=== PATIENT | female | born 1965 | race Caucasian/White ===

== ENCOUNTER → 2017-11-24 | Outpatient (CLI) | payer MEDICAID ==
--- NOTE | 2017-11-24 10:26 | Diagnostic Imaging Report ---
INDICATION: Routine screening. COMPARISON: 10/17/2016. TECHNIQUE: Screening digital mammography was performed bilaterally with a Computer Aided Detection (CAD) system. FINDINGS: Both breasts are primarily involutional. No spiculated mass or malignant appearing microcalcifications are seen. The axillae are unremarkable. IMPRESSION: No mammographic features suspicious for malignancy are identified. ACR BI-RADS Category 1: Negative. Result letter will be mailed to the patient. Note: At least 10% of breast cancer is not imaged by mammography. Dictated by: Dictated on workstation # [id number]
--- NOTE | 2017-11-24 10:29 | Diagnostic Imaging Report ---
INDICATION: Neck pain with left arm numbness and tingling. TIME OF EXAMINATION: 9:22 AM. FINDINGS: The alignment is normal. There is significant degenerative disc disease at the C5-6 and C6-7 levels with moderate disc space narrowing and marginal osteophyte formation. The prevertebral tissues are normal. No fractures are seen. The odontoid is intact. IMPRESSION: Lower cervical spondylosis. No acute bony abnormality is detected. Dictated by: Dictated on workstation # [id number]
== END ==
LOC: RAD 08:32
PROVIDERS: ATTEND Family Medicine
DX: Z12.31 Encounter for screening mammogram for malignant neoplasm of breast (principal); M47.22 Other spondylosis with radiculopathy, cervical region
CPT/HCPCS: 72040; 77067

== ENCOUNTER 2017-11-27 13:39 | Outpatient (RCR) | payer MEDICAID ==
[2017-11-27 14:00] LABS: BASOPHILS # (AUTO) 0.1 10^3/uL (0.0-0.1); BASOPHILS % (AUTO) 2 % (0-10); EOSINOPHILS # (AUTO) 0.1 10^3/uL (0.0-0.3); EOSINOPHILS % (AUTO) 2 % (0-10); HEMATOCRIT 35 % (35-52); HEMOGLOBIN 11.1 G/DL (11.5-16.0); LYMPHOCYTES # (AUTO) 2.5 X 10^3 (1.0-4.0); LYMPHOCYTES % (AUTO) 43 % (12-44); MEAN CORPUSCULAR HEMOGLOBIN 25 PG (25-34); MEAN CORPUSCULAR HGB CONC 32 G/DL (32-36); MEAN CORPUSCULAR VOLUME 79 FL (80-99); MEAN PLATELET VOLUME 9.5 FL (7.4-10.4); MONOCYTES # (AUTO) 0.7 X 10^3 (0.0-1.0); MONOCYTES % (AUTO) 12 % (0-12); NEUTROPHILS # (AUTO) 2.4 X 10^3 (1.8-7.8); NEUTROPHILS % (AUTO) 41 % (42-75); PLATELET COUNT 633 10^3/uL (130-400); RED CELL DISTRIBUTION WIDTH 17.1 % (10.0-14.5); WHITE BLOOD COUNT 5.8 10^3/uL (4.3-11.0)
[2017-11-27 14:21] LABS: ALANINE AMINOTRANSFERASE 17 U/L (0-55); ALBUMIN 4.6 GM/DL (3.2-4.5); ALKALINE PHOSPHATASE 98 U/L (40-136); BILIRUBIN,TOTAL 0.2 MG/DL (0.1-1.0); BUN/CREATININE RATIO 28; CARBON DIOXIDE 23 MMOL/L (21-32); CHLORIDE 102 MMOL/L (98-107); CREATININE SERUM 0.95 MG/DL (0.60-1.30); GFR ESTIMATED > 60; GLUCOSE 128 MG/DL (70-105); POTASSIUM 4.3 MMOL/L (3.6-5.0); SODIUM 134 MMOL/L (135-145); TOTAL PROTEIN 8.8 GM/DL (6.4-8.2)
[2018-01-05] MEDS ORDERED: METF500T5 PO (10:47)
[2018-01-05] MEDS ORDERED: METO-333 PO (10:47)
[2018-01-05] MEDS ORDERED: DICL75TA2 PO (10:47)
[2018-01-05] MEDS ORDERED: ONDA8TAB9 PO (10:47)
[2018-01-05] MEDS ORDERED: RT-ALBUINH INH (10:47)
[2018-01-05] MEDS ORDERED: BACL10TA PO (10:47)
[2018-01-05] MEDS ORDERED: MONT10TA21 PO (10:47)
[2018-01-05] MEDS ORDERED: PRAZ1CAP2 PO (10:47)
[2018-01-05] MEDS ORDERED: LISI10TA2 PO (10:47)
[2018-01-05] MEDS ORDERED: MELO15TA39 PO (10:47)
[2018-01-05] MEDS ORDERED: RANI300T4 PO (10:47)
[2018-01-05] MEDS ORDERED: BUDE10.2 INH (10:47)
[2018-01-05] MEDS ORDERED: SERT100T8 PO (10:47)
[2018-01-05] MEDS ORDERED: LURA20TA PO (10:47)
[2018-01-05] MEDS ORDERED: SIMV20TA3 PO (10:47)
[2018-01-05] MEDS ORDERED: DEXL60CA PO (10:47)
[2018-01-05] MEDS ORDERED: OMG1KC PO (10:49)
[2018-01-06] MEDS ORDERED: CEFD300C3 PO (13:46)
== END 2018-02-25 | disposition home or self-care (01) ==
LOC: ONC 13:39
PROVIDERS: ATTEND Internal Medicine Hematology & Oncology
DX: D50.9 Iron deficiency anemia, unspecified (principal); D47.3 Essential (hemorrhagic) thrombocythemia; E11.9 Type 2 diabetes mellitus without complications; K44.9 Diaphragmatic hernia without obstruction or gangrene; Z79.899 Other long term (current) drug therapy
CPT/HCPCS: 36415; 80053; 82728; 83540; 85025; 99214

== ENCOUNTER 2018-01-04 11:29 | Inpatient (IN) | payer MEDICAID ==
[~2018-01-04] VITALS: Ht 144.8 cm; Wt 66.3 kg
[2018-01-04] VITALS (12 sets, daily range): BP systolic 93–149; BP diastolic 43–90
[2018-01-04] MEDS ORDERED: LACTATED RINGERS 1,000 ML IV ONE ×3 (11:49→13:35)
[2018-01-04 12:01] LABS: BASOPHILS % (AUTO) 0 % (0-10); EOSINOPHILS % (AUTO) 0 % (0-10); HEMATOCRIT 30 % (35-52); LYMPHOCYTES # (AUTO) 1.3 X 10^3 (1.0-4.0); LYMPHOCYTES % (AUTO) 8 % (12-44); MEAN CORPUSCULAR HEMOGLOBIN 25 PG (25-34); MEAN CORPUSCULAR HGB CONC 33 G/DL (32-36); MEAN CORPUSCULAR VOLUME 74 FL (80-99); MEAN PLATELET VOLUME 9.2 FL (7.4-10.4); MONOCYTES # (AUTO) 2.8 X 10^3 (0.0-1.0); MONOCYTES % (AUTO) 16 % (0-12); NEUTROPHILS # (AUTO) 13.4 X 10^3 (1.8-7.8); NEUTROPHILS % (AUTO) 76 % (42-75); PLATELET COUNT 526 10^3/uL (130-400); RED BLOOD COUNT 4.06 10^6/uL (4.35-5.85); RED CELL DISTRIBUTION WIDTH 17.5 % (10.0-14.5); WHITE BLOOD COUNT 17.6 10^3/uL (4.3-11.0)
[2018-01-04 12:20] LABS: ALBUMIN 4.5 GM/DL (3.2-4.5); BILIRUBIN,TOTAL 0.5 MG/DL (0.1-1.0); CALCIUM 9.8 MG/DL (8.5-10.1); CREATININE SERUM 4.85 MG/DL (0.60-1.30); POTASSIUM 4.6 MMOL/L (3.6-5.0); TOTAL PROTEIN 8.4 GM/DL (6.4-8.2)
[2018-01-04 12:23] LABS: BAND NEUTROPHILS 2 %; LYMPHOCYTES % (MANUAL) 8 %; MONOCYTES % (MANUAL) 13 %; NEUTROPHILS % (MANUAL) 77 %
[2018-01-04 12:24] LABS: MICROCYTOSIS SLIGHT
[2018-01-04 12:25] LABS: TOXIC GRANULATION/VACUOLAZATIO 2+
--- NOTE | 2018-01-04 12:35 | Diagnostic Imaging Report ---
Clinical indication: Patient with weakness. Exam: Portable chest x-ray upright view. Comparison: Portable chest x-ray dated 06/29/2015. Findings: There is interval development of left midlung field left lung base mild atelectasis versus infiltrate. Remainder of the lungs are clear. There is blunting of left costophrenic angle and small left pleural effusion cannot be completely excluded. Pulmonary vasculature is within normal limits. There is mild cardiomegaly. Surgical clips are seen overlying the right upper quadrant which could be related to cholecystectomy changes. Bones show no significant abnormality. Impression: 1: Interval development of mild left lung base atelectasis versus infiltrate and possible left pleural effusion. 2: Mild cardiomegaly with no significant pulmonary vascular congestion. Dictated by: Dictated on workstation # [id number]
--- NOTE | 2018-01-04 12:42 | ED General ---
General Chief Complaint: Altered Mental Status Stated Complaint: WEAKNESS Nursing Triage Note: brought by ems. Patient is obtunded and very sedated. Unable to answer quetions. did say that she was walking bad this week. Boyfriend states that she has been walking drunk for several days and has been vomiting. Called dr for nausea meds. Fell out of chair but has not hit head. States she has even fallen asleep in tub. Limited history obtained Nursing Sepsis Screen: No Definite Risk Source of Information: Other Exam Limitations: Other (alertness) History of Present Illness Date Seen by Provider: January 04, 2018 Time Seen by Provider: 12:38 Initial Comments The patient is a 52-year-old white female brought here by EMS. Her male executive manager told the nurses that she has been performing very poorly for several days and indeed walking about like a zombie. She is brighter after IV fluids but still quite noncommunicative Timing/Duration: 3-4 Days Allergies and Home Medications Allergies Coded Allergies: No Known Drug Allergies (Unverified , 01/04/18) Patient Home Medication List Home Medication List Reviewed: Yes Review of Systems Constitutional: see HPI Past Sllfrfp-Rokzzw-Tciyfy Hx Patient Social History Alcohol Use: Denies Use Recreational Drug Use: No (unknown) Smoking Status: Unknown if Ever Smoked Recent Foreign Travel: No Contact w/Someone Who Travel: No Recent Infectious Disease Expo: No Recent Hopitalizations: No Physical Abuse: No Sexual Abuse: No Mistreated: No Fear: No Immunizations Up To Date Tetanus Booster (TDap): Unknown Seasonal Allergies Seasonal Allergies: No Past Medical History Surgeries: Yes Hysterectomy, Orthopedic Respiratory: Yes COPD Cardiac: No Neurological: No Genitourinary: No Gastrointestinal: Yes Hiatal Hernia Musculoskeletal: Yes Scoliosis, Chronic Back Pain Endocrine: Yes Diabetes, Non-Insulin dep Nursing Suicide Risk Score: 0 Integumentary: No Physical Exam Vital Signs Vital Signs - First Documented 01/04/18 01/04/18 11:35 12:28 Temp 98.4 Pulse 75 Resp 18 B/P (MAP) 94/48 (63) Pulse Ox 95 O2 Delivery OxyMask O2 Flow Rate 9.00 Capillary Refill : Greater Than 3 Seconds General Appearance: Other (hypotensive and very somnolent) Eyes: Bilateral Eye Normal Inspection HEENT: Normal ENT Inspection Neck: Full Range of Motion, Normal Inspection, Non Tender, Supple, Carotid Bruit Respiratory: Decreased Breath Sounds (shallow) Cardiovascular: Regular Rate, Rhythm, No Edema, No Gallop Gastrointestinal: Normal Bowel Sounds, No Organomegaly, No Pulsatile Mass Extremity: Normal Capillary Refill, Normal Inspection, Normal Range of Motion Neurologic/Psychiatric: Other (arouses to voice but does not attempt to speak) Skin: Normal Color, Warm/Dry Lymphatic: No Adenopathy Focused Exam Lactate Level 01/04/18 11:46: Lactic Acid Level 1.13 Lactic Acid Level Laboratory Tests Test 01/04/18 11:46 Lactic Acid Level 1.13 MMOL/L (0.50-2.00) Progress/Results/Core Measures Suspected Sepsis Recent Fever Within 48 Hours: No Infection Criteria Present: Suspected New Infection New/Unexplained Altered Menta: Yes Sepsis Screen: No Definite Risk SIRS Temperature:98.4 Pulse: 75 Respiratory Rate: 18 Laboratory Tests 01/04/18 11:46: White Blood Count 17.6H Blood Pressure 94 /48 Mean: 63 01/04/18 11:46: Lactic Acid Level 1.13 Laboratory Tests 01/04/18 11:46: Creatinine 4.85H, Platelet Count 526H, Total Bilirubin 0.5 Results/Orders Lab Results Laboratory Tests Test 01/04/18 11:46 01/04/18 12:31 Range/Units White Blood Count 17.6 H 4.3-11.0 10^3/uL Red Blood Count 4.06 L 4.35-5.85 10^6/uL Hemoglobin 10.0 L 11.5-16.0 G/DL Hematocrit 30 L 35-52 % Mean Corpuscular Volume 74 L 80-99 FL Mean Corpuscular Hemoglobin 25 25-34 PG Mean Corpuscular Hemoglobin Concent 33 32-36 G/DL Red Cell Distribution Width 17.5 H 10.0-14.5 % Platelet Count 526 H 130-400 10^3/uL Mean Platelet Volume 9.2 7.4-10.4 FL Neutrophils (%) (Auto) 76 H 42-75 % Lymphocytes (%) (Auto) 8 L 12-44 % Monocytes (%) (Auto) 16 H 0-12 % Eosinophils (%) (Auto) 0 0-10 % Basophils (%) (Auto) 0 0-10 % Neutrophils # (Auto) 13.4 H 1.8-7.8 X 10^3 Lymphocytes # (Auto) 1.3 1.0-4.0 X 10^3 Monocytes # (Auto) 2.8 H 0.0-1.0 X 10^3 Eosinophils # (Auto) 0.0 0.0-0.3 10^3/uL Basophils # (Auto) 0.0 0.0-0.1 10^3/uL Neutrophils % (Manual) 77 % Lymphocytes % (Manual) 8 % Monocytes % (Manual) 13 % Band Neutrophils 2 % Toxic Granulation 2+ Microcytosis SLIGHT Sodium Level 135 135-145 MMOL/L Potassium Level 4.6 3.6-5.0 MMOL/L Chloride Level 103 98-107 MMOL/L Carbon Dioxide Level 15 L 21-32 MMOL/L Anion Gap 17 H 5-14 MMOL/L Blood Urea Nitrogen 50 H 7-18 MG/DL Creatinine 4.85 H 0.60-1.30 MG/DL Estimat Glomerular Filtration Rate 9 BUN/Creatinine Ratio 10 Glucose Level 111 H 70-105 MG/DL Lactic Acid Level 1.13 0.50-2.00 MMOL/L Calcium Level 9.8 8.5-10.1 MG/DL Total Bilirubin 0.5 0.1-1.0 MG/DL Aspartate Amino Transf (AST/SGOT) 10 5-34 U/L Alanine Aminotransferase (ALT/SGPT) 10 0-55 U/L Alkaline Phosphatase 81 40-136 U/L Total Protein 8.4 H 6.4-8.2 GM/DL Albumin 4.5 3.2-4.5 GM/DL Urine Color YELLOW Urine Clarity CLEAR Urine pH 5 5-9 Urine Specific [place] 1.025 H 1.016-1.022 Urine Protein 2+ H NEGATIVE Urine Glucose (UA) NEGATIVE NEGATIVE Urine Ketones NEGATIVE NEGATIVE Urine Nitrite NEGATIVE NEGATIVE Urine Bilirubin 1+ H NEGATIVE Urine Urobilinogen NORMAL NORMAL MG/DL Urine Leukocyte Esterase 1+ H NEGATIVE Urine RBC (Auto) NEGATIVE NEGATIVE Urine RBC NONE /HPF Urine WBC RARE /HPF Urine Crystals NONE /LPF Urine Amorphous Sediment MOD TRAN URATES H /LPF Urine Bacteria FEW H /HPF Urine Casts NONE /LPF Urine Mucus LARGE H /LPF Urine Culture Indicated NO Urine Opiates Screen POSITIVE H NEGATIVE Urine Oxycodone Screen NEGATIVE NEGATIVE Urine Methadone Screen NEGATIVE NEGATIVE Urine Propoxyphene Screen NEGATIVE NEGATIVE Urine Barbiturates Screen NEGATIVE NEGATIVE Ur Tricyclic Antidepressants Screen NEGATIVE NEGATIVE Urine Phencyclidine Screen NEGATIVE NEGATIVE Urine Amphetamines Screen NEGATIVE NEGATIVE Urine Methamphetamines Screen NEGATIVE NEGATIVE Urine Benzodiazepines Screen NEGATIVE NEGATIVE Urine Cocaine Screen NEGATIVE NEGATIVE Urine Cannabinoids Screen POSITIVE H NEGATIVE My Orders Orders - NARCISO GONZALES MD Lactated Ringers (Lr 1000 Ml Iv Solution (01/04/18 11:49) Cbc With Automated Diff (01/04/18 11:53) Comprehensive Metabolic Panel (01/04/18 11:53) Drug Screen Stat (Urine) (01/04/18 11:53) Ua Culture If Indicated (01/04/18 11:53) Chest 1 View, Ap/Pa Only (01/04/18 11:53) Manual Differential (01/04/18 11:46) Blood Culture (01/04/18 12:26) Lactic Acid Analyzer (01/04/18 12:26) Lactated Ringers (Lr 1000 Ml Iv Solution (01/04/18 12:25) Albuterol/Ipra Inhalation Soln (Duoneb I (01/04/18 12:45) Svn Small Volume Nebulizer (01/04/18 12:43) Medications Given in ED Current Medications Medications Dose Ordered Sig/Katrina Route Start Time Stop Time Status Last Admin Dose Admin Albuterol/ Ipratropium 3 ml ONCE ONCE INH 01/04/18 12:45 01/04/18 12:47 DC 01/04/18 12:47 3 ML Lactated Ringer's 1,000 ml @ ud STK-MED ONCE IV 01/04/18 11:49 01/04/18 11:54 DC 01/04/18 11:55 1,000 MLS/HR Lactated Ringer's 1,000 ml @ ud STK-MED ONCE IV 01/04/18 12:25 01/04/18 12:31 DC 01/04/18 12:35 1,000 MLS/HR Vital Signs/I&O 01/04/18 01/04/18 01/04/18 11:35 12:28 13:22 Temp 98.4 98.4 Pulse 75 76 Resp 18 18 B/P (MAP) 94/48 (63) 95/53 Pulse Ox 95 96 100 O2 Delivery OxyMask OxyMask O2 Flow Rate 9.00 10.00 Capillary Refill : Greater Than 3 Seconds Blood Pressure Mean: 63 Departure Communication (Admissions) Laboratory has returned. The white blood count is 17,600. Hemoglobin is 10. Creatinine is 4.85 BUN 50. Urine is clear. Chest x-ray suggests a left-sided pneumonia. I discussed these findings with Dr. Tabares at 1320 and the patient will be admitted to our last remaining ICU bed Impression Primary Impression: severe sepsis Additional Impressions: pneumonia acute renal failure Disposition: ADMITTED INPATIENT Condition: Improved Admissions Decision to Admit Reason: Admit from ER (General) Decision to Admit/Date: January 04, 2018 Time/Decision to Admit Time: 13:27 Departure-Patient Inst. Referrals: RENY COLLAZO MD (PCP/Family) Primary Care Physician NARCISO GONZALES MD January 04, 2018 12:42
[2018-01-04] MEDS ORDERED: RT-ALBUTEROL/IPRATROPIUM 3 ML (DUONEB) VIAL INH ONE (12:45)
[2018-01-04 13:04] LABS: BILIRUBIN,URINE 1+ (NEGATIVE); CLARITY,URINE CLEAR; COLOR,URINE YELLOW; GLUCOSE, URINE (UA) NEGATIVE (NEGATIVE); KETONES,URINE NEGATIVE (NEGATIVE); LEUKOCYTE ESTERASE ,URINE 1+ (NEGATIVE); NITRITE,URINE NEGATIVE (NEGATIVE); PH,URINE 5 (5-9); PROTEIN,URINE 2+ (NEGATIVE); UROBILINOGEN,URINE NORMAL (NORMAL)
[2018-01-04 13:11] LABS: AMPHETAMINE SCREEN, URINE NEGATIVE (NEGATIVE); BARBITURATE SCREEN URINE NEGATIVE (NEGATIVE); BENZODIAZEPINES SCREEN URINE NEGATIVE (NEGATIVE); CANNABINOID SCREEN, URINE POSITIVE (NEGATIVE); COCAINE SCREEN URINE NEGATIVE (NEGATIVE); METHADONE STAT NEGATIVE (NEGATIVE); METHAMPHETAMINE SCREEN URINE S NEGATIVE (NEGATIVE); OPIATE SCREEN URINE POSITIVE (NEGATIVE); OXYCODONE STAT NEGATIVE (NEGATIVE); PROPOXYPHENE STAT NEGATIVE (NEGATIVE); TRICYCLIC ANTIDEPRESSANTS SCRE NEGATIVE (NEGATIVE)
[2018-01-04 13:15] LABS: BACTERIA,URINE FEW /HPF; WBC,URINE RARE /HPF
[2018-01-04 13:16] LABS: AMORPHOUS SEDIMENT,UR MOD AMOR URATES /LPF
[2018-01-04] MEDS ORDERED: PIPERACILLIN SODIUM/TAZOBACTAM 4.5 GM in D5W 100 ML IVPB 100 ML IV ONE (13:30)
[2018-01-04] MEDS ORDERED: MILK OF MAGNESIA 400 MG/5 ML 30 ML UDC PO PRN (13:45)
[2018-01-04] MEDS ORDERED: PIPERACILLIN SODIUM/TAZOBACTAM 4.5 GM in NS (IVPB) 100 ML IV SCH (13:45)
[2018-01-04] MEDS ORDERED: ONDANSETRON 4 MG/2 ML (SDV) Z0FRAN IV PRN (13:45)
[2018-01-04] MEDS ORDERED: ANTACID SUSP 30 ML UDC (MYLANTA) PO PRN (13:45)
[2018-01-04] MEDS ORDERED: MELATONIN 3 MG TABLET PO PRN (13:45)
--- NOTE | 2018-01-04 13:56 | History & Physical-Hospitalist ---
History of Present Illness HPI/Chief Complaint Pt is a 52yoCF with a PMH of HTN and DM who presented to the ER via EMS for altered mental status. She arouses to physicial stimuli and answer some questions appropriately but really is not able to give a detailed history. She was only able to tell me she was dizzy and lightheaded since yesterday. Per the report obtained by her SO who called EMS she has been confused for days and walking around "like a zombie" and falling. She was barely arousable on presentation and mentation has improved slightly but is not back to her baseline. She was not able to tell me any other history and she has no family at bedside. She was found to have UA consistent with UTI and CXR with possible pneumonia. She has a WBC of 17k and was in acute renal failure with a defense travel administrator of 4.85. She was admitted for severe sepsis to the ICU. Source: patient Exam Limitations: clinical condition Date Seen 01/04/18 Time Seen by Provider: 13:25 Attending Physician Lily Tabares MD PCP Frieda Rodriguez MD Referring Physician Date of Admission Home Medications & Allergies Home Medications Reviewed patient Home Medication Reconciliation performed by pharmacy medication reconciliations mold repair technician and/or nursing. Patients Allergies have been reviewed. Allergies Allergies Coded Allergies No Known Drug Allergies (Unverified01/04/18) Past Bbzauft-Xdjxgz-Splapt Hx Past Med/Social Hx: Reviewed Nursing Past Med/Soc Hx Patient Social History Alcohol Use: Denies Use Recreational Drug Use: No (unknown) Smoking Status: Unknown if Ever Smoked Recent Foreign Travel: No Contact w/other who traveled: No Recent Hopitalizations: No Recent Infectious Disease Expo: No Immunizations Up To Date Tetanus Booster (TDap): Unknown Seasonal Allergies Seasonal Allergies: No Past Medical History Surgeries: Hysterectomy, Orthopedic Cardiac: Hypertension Gastrointestinal: Hiatal Hernia Musculoskeletal: Scoliosis, Chronic Back Pain Endocrine: Diabetes, Non-Insulin dep Family History Reviewed Nursing Family Hx Unable to obtain due to AMS Review of Systems ROS-Unable to Obtain: AMS Constitutional: see HPI Physical Exam Physical Exam Vital Signs Capillary Refill : Less Than 3 Seconds General Appearance: Chronically ill, Mild Distress HEENT: No Scleral Icterus (L), No Scleral Icterus (R); Other (dry mucus membranes) Neck: Normal Inspection, Non Tender, Supple; No JVD, No Thyromegaly Respiratory: Lungs Clear, No Accessory Muscle Use, No Respiratory Distress Cardiovascular: Regular Rate, Rhythm, No Murmur Gastrointestinal: Normal Bowel Sounds, Non Tender, Soft Neurologic/Psychiatric: No Aphasia, No Facial Droop; Other (arousable and answered a few questions appropriately then quickly fell back asleep and was lethargic) Skin: No Normal Color, No Warm/Dry Results Results/Procedures Labs Patient resulted labs reviewed. Imaging: Reviewed Imaging Films, Reviewed Imaging Report Imaging Date of Exam:01/04/18 CHEST 1 VIEW, AP/PA ONLY Clinical indication: Patient with weakness. Exam: Portable chest x-ray upright view. Comparison: Portable chest x-ray dated 06/29/2015. Findings: There is interval development of left midlung field left lung base mild atelectasis versus infiltrate. Remainder of the lungs are clear. There is blunting of left costophrenic angle and small left pleural effusion cannot be completely excluded. Pulmonary vasculature is within normal limits. There is mild cardiomegaly. Surgical clips are seen overlying the right upper quadrant which could be related to cholecystectomy changes. Bones show no significant abnormality. Impression: 1: Interval development of mild left lung base atelectasis versus infiltrate and possible left pleural effusion. 2: Mild cardiomegaly with no significant pulmonary vascular congestion. 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 today Likely due to dehydration but also filled Mobic on 12/[address] mckenna for adequate I/Os Received 3L of fluid in the ER Continue IVF resuscitation trend (3) COPD (chronic obstructive pulmonary disease) Status: Chronic Assessment & Plan: Continue home inhalers MAT Protocol Monitor respiratory status closely given IVF Titrate sats to keep >90 Qualifiers: COPD type: unspecified COPD Qualified Codes: J44.9 - Chronic obstructive pulmonary disease, unspecified (4) Essential (primary) hypertension Assessment & Plan: Normally hypertensive but currently lower limits of normal Monitor Hold home meds 30cc/kg bolus given (5) Non-insulin dependent type 2 diabetes mellitus Assessment & Plan: Reports DM SSI A Hold home metformin (6) Microcytic anemia Assessment & Plan: Appears to be undergoing work up for this as an outpatient given recent labs and iron studies Anticipate drop tomorrow with fluids resuscitation (7) Prophylactic measure Assessment & Plan: NS at 150ml/hr SCDs for now NPO while altered LILY TABARES MD January 04, 2018 13:56
[2018-01-04] MEDS ORDERED: VANCOMYCIN INJECTION 0.1 MG in NS (IVPB) 250 ML IV SCH (14:00)
[2018-01-04] MEDS ORDERED: VANCOMYCIN 1 GM/NS 250 ML IVPB IV NR ×2 (14:38)
[2018-01-04] MEDS: NS IV 1000 ML 1,000 ML IV SCH (15:37)
[2018-01-04] MEDS: inSUlin ASPART (NovoLOG) 1 UNIT/0.01 ML (CHARGE PER UNIT) SC SCH ×2 (16:03→22:33)
[2018-01-04] MEDS ORDERED: HALOPERIDOL 2 MG (HALDOL) TABLET PO ONE (16:45)
[2018-01-04] MEDS: ACETAMINOPHEN 325 MG TABLET/CAPLET (TYLENOL) PO PRN (17:09)
[2018-01-04] MEDS: RT-ALBUTEROL/IPRATROPIUM 3 ML (DUONEB) VIAL INH SCH (20:21)
[2018-01-04] MEDS: PIPERACILLIN SODIUM/TAZOBACTAM 4.5 GM in NS (IVPB) 100 ML IV SCH (22:34)
[2018-01-05] VITALS (17 sets, daily range): BP systolic 93–163; BP diastolic 52–93
[2018-01-05] MEDS: NS IV 1000 ML 1,000 ML IV SCH ×5 (01:59→21:00)
[2018-01-05] MEDS: RT-ALBUTEROL/IPRATROPIUM 3 ML (DUONEB) VIAL INH SCH ×4 (02:08→18:56)
[2018-01-05 03:35] LABS: BASOPHILS % (AUTO) 0 % (0-10); EOSINOPHILS % (AUTO) 0 % (0-10); HEMATOCRIT 27 % (35-52); HEMOGLOBIN 8.7 G/DL (11.5-16.0); LYMPHOCYTES % (AUTO) 6 % (12-44); MEAN CORPUSCULAR HEMOGLOBIN 24 PG (25-34); MEAN CORPUSCULAR HGB CONC 32 G/DL (32-36); MEAN CORPUSCULAR VOLUME 76 FL (80-99); MEAN PLATELET VOLUME 9.1 FL (7.4-10.4); MONOCYTES # (AUTO) 1.5 X 10^3 (0.0-1.0); MONOCYTES % (AUTO) 10 % (0-12); NEUTROPHILS % (AUTO) 83 % (42-75); PLATELET COUNT 444 10^3/uL (130-400); RED BLOOD COUNT 3.58 10^6/uL (4.35-5.85); RED CELL DISTRIBUTION WIDTH 17.2 % (10.0-14.5); WHITE BLOOD COUNT 15.6 10^3/uL (4.3-11.0)
[2018-01-05 03:55] LABS: ALBUMIN 3.5 GM/DL (3.2-4.5); BILIRUBIN,TOTAL 0.4 MG/DL (0.1-1.0); CALCIUM 8.7 MG/DL (8.5-10.1); CREATININE SERUM 1.49 MG/DL (0.60-1.30); POTASSIUM 3.9 MMOL/L (3.6-5.0); TOTAL PROTEIN 6.7 GM/DL (6.4-8.2)
[2018-01-05 04:02] LABS: INR 1.1 (0.8-1.4); PROTHROMBIN TIME PATIENT 14.2 SEC (12.2-14.7)
[2018-01-05] MEDS: ACETAMINOPHEN 325 MG TABLET/CAPLET (TYLENOL) PO PRN ×3 (04:21→20:44)
[2018-01-05 04:39] LABS: MAGNESIUM 1.8 MG/DL (1.8-2.4)
[2018-01-05] MEDS: inSUlin ASPART (NovoLOG) 1 UNIT/0.01 ML (CHARGE PER UNIT) SC SCH ×4 (05:04→20:43)
--- NOTE | 2018-01-05 06:46 | Pulmonary Consultation ---
History of Present Illness History of Present Illness Date of Consultation 01/05/18 06:38 Time Seen by Provider: 06:38 Date of Admission History of Present Illness 52yo with hx of COPD, presented secondary to worsening MS changes, confusion, lightheaded, falling. Pt was found to have sepsis in ED. UDS was positive for Marijuanna and narcotics. Pt states marijuana is secondary to second hand smoke. PT was hypotensive on admission however has responded to IVF. I am consulted for ICU/pulmonary management. Allergies and Home Medications Allergies Coded Allergies: No Known Drug Allergies (Unverified , 01/04/18) Past Wtewtzu-Hgvnow-Kkktmj Hx Past Med/Social Hx: Reviewed Nursing Past Med/Soc Hx Patient Social History Alcohol Use: Denies Use Recreational Drug Use: No (PATIENT WAS POSITIVE FOR MARIJUANA UPON ADMISSION) Smoking Status: Former Smoker Recent Foreign Travel: No Contact w/Someone Who Travel: No Recent Infectious Disease Expo: No Recent Hopitalizations: No Physical Abuse: No Sexual Abuse: No Mistreated: No Fear: No Immunizations Up To Date Tetanus Booster (TDap): Unknown Seasonal Allergies Seasonal Allergies: No Past Medical History Surgeries: Yes Hysterectomy, Orthopedic Respiratory: Yes COPD Cardiac: Yes Hypertension Neurological: No Genitourinary: No Gastrointestinal: Yes Hiatal Hernia Musculoskeletal: Yes Scoliosis, Chronic Back Pain Endocrine: Yes Diabetes, Non-Insulin dep HEENT: No Cancer: No Nursing Suicide Risk Score: 0 Integumentary: No Family Medical History Reviewed Nursing Family Hx Unable to obtain due to AMS Review of Systems Time Seen by Provider: 06:42 Constitutional: Fever, Sweats, Weakness, Malaise Eyes: No: Pain, Vision change, Conjunctivae inflammation, Eyelid inflammation, Other, Redness ENT: No: Ear pain, Ear discharge, Nose pain, Nose discharge, Nose congestion, Mouth pain, Mouth swelling, Throat pain, Throat swelling, Other Respiratory: Cough, Dry, Shortness of breath Cardiovascular: Paroxysmal Noc. Dyspnea Neurological: Weakness Exam Exam Vital Signs Date Time Temp Pulse Resp B/P (MAP) Pulse Ox O2 Delivery O2 Flow Rate FiO2 01/05/18 06:00 91 21 113/64 (80) 98 Room Air 01/05/18 05:36 100.8 01/05/18 05:33 100.8 01/05/18 05:00 92 14 135/70 (91) 97 Room Air 01/05/18 04:21 101.7 01/05/18 04:00 101.7 01/05/18 04:00 99 Room Air 01/05/18 04:00 122 20 142/93 (109) 98 Room Air 01/05/18 03:00 97 24 155/82 (106) Room Air 01/05/18 02:08 98 Room Air 01/05/18 02:00 99 27 137/69 (91) 98 Room Air 01/05/18 01:00 76 19 125/70 (88) 98 Room Air 01/05/18 01:00 80 01/05/18 00:00 99 Room Air 01/05/18 00:00 73 21 116/60 (78) 100 Room Air 01/04/18 23:56 98.9 01/04/18 23:00 76 12 101/62 (75) 98 Room Air 01/04/18 22:00 81 18 93/48 (63) 95 Room Air 01/04/18 21:00 79 14 93/43 (60) 96 Room Air 01/04/18 20:21 97 Room Air 01/04/18 20:00 76 18 108/54 (72) 96 Room Air 01/04/18 20:00 99 Room Air 01/04/18 20:00 99.5 01/04/18 19:00 94 01/04/18 19:00 90 19 126/69 (88) 97 Room Air 18 17:39 Room Air 18 17:25 99.8 Room Air 18 17:09 101.0 01/04/18 17:00 90 11 148/90 (109) 95 Room Air 18 17:00 101.0 Room Air 18 16:43 98 Room Air 18 16:39 91 98 21 18 16:30 88 11 149/77 (101) 96 Room Air 18 16:00 99.0 Room Air 18 16:00 80 17 136/72 (93) 99 Room Air 20/18 15:45 80 18 138/73 (94) 98 Room Air 2018 15:30 75 13 114/55 (74) 97 Room Air 18 15:15 75 15 122/58 (79) 97 Room Air 5/20/18 15:00 98.5 76 15 142/69 (93) 95 Room Air 01/04/18 14:29 78 18 134/67 99 Nasal Cannula 2.00 01/04/18 13:22 98.4 76 18 95/53 100 OxyMask 10.00 01/04/18 12:28 96 OxyMask 9.00 01/04/18 11:35 98.4 75 18 94/48 (63) 95 I & O 01/05/18 07:00 Intake Total 5560 ml Output Total 2440 ml Balance 3120 ml General Appearance: No Apparent Distress, Anxious HEENT: Normal ENT Inspection Neck: Full Range of Motion, Normal Inspection, Non Tender, Supple, Carotid Bruit Respiratory: Decreased Breath Sounds (shallow) Cardiovascular: Regular Rate, Rhythm, No Edema, No Gallop Capillary Refill: Less Than 3 Seconds Extremity: Normal Capillary Refill, Normal Inspection, Normal Range of Motion Neurologic/Psychiatric: Other (arouses to voice but does not attempt to speak) Skin: Normal Color, Warm/Dry Lymphatic: No Adenopathy Results Lab Laboratory Tests 01/04/18 11:46 01/05/18 03:10 Assessment/Plan Assessment/Plan Severe Sepsis secondary to PNA -IVF -Sepsis protocol -Continue vanco, and Zosyn -Lutz cultures pending COPD -SVNS, oxygen, MAT protocol Confusion secondary to sepsis and opiate/Marijuana IDDM II 255 ALANIS REARDON DO January 05, 2018 06:46
[2018-01-05] MEDS: PIPERACILLIN SODIUM/TAZOBACTAM 4.5 GM in NS (IVPB) 100 ML IV SCH (09:04)
[2018-01-05] MEDS ORDERED: BUDE10.2 INH (10:47)
[2018-01-05] MEDS ORDERED: RT-ALBUINH INH (10:47)
[2018-01-05] MEDS ORDERED: DICL75TA2 PO (10:47)
[2018-01-05] MEDS ORDERED: LURA20TA PO (10:47)
[2018-01-05] MEDS ORDERED: MONT10TA21 PO (10:47)
[2018-01-05] MEDS ORDERED: SIMV20TA3 PO (10:47)
[2018-01-05] MEDS ORDERED: RANI300T4 PO (10:47)
[2018-01-05] MEDS ORDERED: BACL10TA PO (10:47)
[2018-01-05] MEDS ORDERED: SERT100T8 PO (10:47)
[2018-01-05] MEDS ORDERED: MELO15TA39 PO (10:47)
[2018-01-05] MEDS ORDERED: PRAZ1CAP2 PO (10:47)
[2018-01-05] MEDS ORDERED: METO-333 PO (10:47)
[2018-01-05] MEDS ORDERED: DEXL60CA PO (10:47)
[2018-01-05] MEDS ORDERED: ONDA8TAB9 PO (10:47)
[2018-01-05] MEDS ORDERED: METF500T5 PO (10:47)
[2018-01-05] MEDS ORDERED: LISI10TA2 PO (10:47)
[2018-01-05] MEDS ORDERED: OMG1KC PO (10:49)
[2018-01-05] MEDS ORDERED: VANCOMYCIN 1 GM/NS 250 ML IVPB IV SCH ×2 (16:00)
--- OUTSIDE RECORDS SUMMARY | 2018-01-05 16:13 | XMS REPORT | Referral Summary ---
Author Author [facility] Organization [facility] Address Unknown Phone Unavailable Care Team Providers Care Cashier Associate Name Role Phone [facility] PCP Unavailable Encounter [facility] [id number] Date(s): 02/23/15 - 02/23/15 [facility] [address] [place] [address] Discharge Disposition: 01-Home or Self Care Attending Physician: Robert Walker MD Admitting Physician: Robert Walker MD Vital Signs No data available for this section Problem List Condition Effective Dates Status Health Status Informant Asthma(Confirmed) Active patient Diabetes(Confirmed) Active patient Hypercholesteremia(C Active patient onfirmed) HTN Active patient (hypertension)(Confi rmed) Allergies, Adverse Reactions, Alerts No Known Medication Allergies Medications aspirin 0 Refill(s) Start Date: 06/29/15 Status: Ordered Carafate 1 g oral tablet 1 g 1 tabs, Oral, QIDACHS, # 30 tabs, 0 Refill(s) Start Date: 06/29/15 Status: Ordered lisinopril Oral, Daily, 0 Refill(s) Start Date: 06/29/15 Status: Ordered metFORMIN Oral, 0 Refill(s) Start Date: 06/29/15 Status: Ordered PriLOSEC Oral, Daily, 0 Refill(s) Start Date: 06/29/15 Status: Ordered PriLOSEC 20 mg oral delayed release capsule 20 mg 1 caps, Oral, Daily, # 30 caps, 0 Refill(s) Start Date: 06/29/15 Status: Ordered promethazine 25 mg oral tablet 25 mg 1 tabs, Oral, q6hr, as needed for motion sickness, # 20 tabs, 0 Refill(s) Start Date: 11/12/15 Status: Ordered Zocor Oral, Bedtime (once a day), 0 Refill(s) Start Date: 06/29/15 Status: Ordered ZyrTEC Daily, 0 Refill(s) Start Date: 06/29/15 Status: Ordered Results No data available for this section Immunizations No data available for this section Procedures No data available for this section Social History Social History Type Response Smoking Status Former smoker; Type: Cigarettes1 1pt quit 10 years ago in 2004 Assessment and Plan No data available for this section
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
--- OUTSIDE RECORDS SUMMARY | 2018-01-05 16:14 | XMS REPORT | Continuity Of Care Document ---
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 Name Role Phone UNASSIGNED, ED PHYSICIAN Unavailable Unavailable LORNA HAYES, DIXON Sorto AT Results Lab Results Visit/Account #[id number] (February 20, 2016 10:39pm - February 21, 2016 1:40am) Test Result Date/Time POCGL POCGL(70-110 MG/DL) 177 MG/DL February 20, 2016 10:57pm CBC WITH MORPHOLOGY WHITE BLOOD COUNT(4.0-11.0 10E3/UL) 7.2 10E3/UL February 20, 2016 10:45pm RED BLOOD COUNT(4.00-5.20 10E6/UL) 4.44 10E6/UL February 20, 2016 10:45pm HEMOGLOBIN(12.0-16.0 G/DL) 11.1 G/DL February 20, 2016 10:45pm HEMATOCRIT(36.0-46.0 %) 35.4 % February 20, 2016 10:45pm MEAN CORPUSCULAR VOLUME(82.0-100.0 FL) 79.7 FL February 20, 2016 10:45pm 70158-0: MEAN CORPUSCULAR HEMOGLOBIN(26.0-34.0 PG) 25.0 PG February 20, 2016 10:45pm MEAN CORPUSCULAR HGB CONC(31.5-36.5 G/DL) 31.4 G/DL February 20, 2016 10:45pm RED CELL DISTRIBUTION WIDTH(11.5-14.5 %) 20.5 % February 20, 2016 10:45pm 777-3: PLATELET COUNT(150-450 10E3/UL) 400 10E3/UL February 20, 2016 10:45pm MEAN PLATELET VOLUME(8.2-12.4 FL) 9.2 FL February 20, 2016 10:45pm 770-8: NEUTROPHILS % (AUTO)(40-70 %) 72 % February 20, 2016 10:45pm LYMPHOCYTES % (AUTO)(15-45 %) 18 % February 20, 2016 10:45pm 5905-5: MONOCYTES % (AUTO)(2-10 %) 9 % February 20, 2016 10:45pm 713-8: EOSINOPHILS % (AUTO)(0-6 %) 1 % February 20, 2016 10:45pm 706-2: BASOPHILS % (AUTO)(0-1 %) 1 % February 20, 2016 10:45pm 751-8: NEUTROPHILS # (AUTO)(2.5-7.5 10E3/UL) 5.2 10E3/UL February 20, 2016 10:45pm 39141-6: LYMPHOCYTES # (AUTO)(1.0-4.0 10E3/UL) 1.3 10E3/UL February 20, 2016 10:45pm 742-7: MONOCYTES # (AUTO)(0.2-0.8 10E3/UL) 0.6 10E3/UL February 20, 2016 10:45pm 711-2: EOSINOPHILS # (AUTO)(0.0-0.4 10E3/UL) 0.0 10E3/UL February 20, 2016 10:45pm 704-7: BASOPHILS # (AUTO)(0.0-0.2 10E3/UL) 0.1 10E3/UL February 20, 2016 10:45pm DIFF TYPE MORPHOLOGY REVIEW February 20, 2016 10:45pm 44108-6: WBC MORPHOLOGY COMMENT NORMAL February 20, 2016 10:45pm 6742-1: RBC MORPHOLOGY COMMENT 1+ ANISOCYTOSIS February 20, 2016 10:45pm 17817-1: PLATELET MORPHOLOGY COMMENT NORMAL February 20, 2016 10:45pm 19995-4: PROTHROMBIN TIME WITH INR PROTHROMBIN TIME(12.1-14.0 SEC) 13.0 SEC February 20, 2016 10:45pm 31748-6: INR 1.02 Result Comments: INR reference interval applies to patients on anticoagulant therapy. Suggested INR therapeutic range for oral anticoagulant therapy: (Stabilized anticoagulated patients) Routine Therapy: 2.0 to 3.0 Recurrent Myocardial Infarction: 2.5 to 3.5 Mechanical Prosthetic Valves: 2.5 to 3.5 February 20, 2016 10:45pm PARTIAL THROMBOPLASTIN TIME PARTIAL THROMBOPLASTIN TIME(22.2-37.4 SEC) 32.0 SEC February 20, 2016 10:45pm 48924-6: COMPLETE METABOLIC PROFILE GLUCOSE(70-110 MG/DL) 168 MG/DL February 20, 2016 10:45pm BLOOD UREA NITROGEN(6-20 MG/DL) 15 MG/DL February 20, 2016 10:45pm CREATININE(0.50-1.20 MG/DL) 0.92 MG/DL February 20, 2016 10:45pm 51890-5: EST GLOMERULAR FILTRATION RATE(Greater than or equal to 60) Greater than or equal to 60 Result Comments: If the patient is of -[place] descent/extraction multiply the eGFR value by 1.212 to obtain the actual eGFR. >=60 mg/dL Normal 30-59 mg/dL Moderate Kidney Disease 15-29 mg/dL Severe Kidney Disease <15 mg/dL Kidney Failure February 20, 2016 10:45pm BUN CREATININE RATIO(10.0-20.0 RATIO) 16.0 RATIO February 20, 2016 10:45pm SODIUM(135-145 MMOL/L) 133 MMOL/L February 20, 2016 10:45pm POTASSIUM(3.6-5.0 MMOL/L) 3.9 MMOL/L February 20, 2016 10:45pm CHLORIDE(101-111 MMOL/L) 101 MMOL/L February 20, 2016 10:45pm 2027-9: CO2(21-31 MMOL/L) 27 MMOL/L February 20, 2016 10:45pm ANION GAP(8-18) 9 February 20, 2016 10:45pm OSMO CALCULATED(270.0-290.0) 271.1 February 20, 2016 10:45pm CALCIUM(8.5-10.5 MG/DL) 9.0 MG/DL February 20, 2016 10:45pm BILIRUBIN,TOTAL(0.1-1.2 MG/DL) 0.5 MG/DL February 20, 2016 10:45pm ALKALINE PHOSPHATASE(42-121 IU/L) 76 IU/L February 20, 2016 10:45pm ASPARTATE AMINO TRANSFERASE(10-42 IU/L) 18 IU/L February 20, 2016 10:45pm ALANINE AMINOTRANSFERASE(10-60 IU/L) 15 IU/L February 20, 2016 10:45pm TOTAL PROTEIN(6.4-8.2 G/DL) 7.2 G/DL February 20, 2016 10:45pm ALBUMIN(3.5-5.5 G/DL) 3.8 G/DL February 20, 2016 10:45pm GLOBULIN(2.4-3.6) 3.4 February 20, 2016 10:45pm ALBUMIN/GLOBULIN RATIO(0.9-1.8 RATIO) 1.1 RATIO February 20, 2016 10:45pm 83283-3: CARDIAC TROPONIN I 52829-8: CARDIAC TROPONIN I(0.01-0.04 NG/ML) Less than 0.01 NG/ML Result Comments: REFERENCE RANGES: NEGATIVE < 0.04 NG/ML POSSIBLE MYCARDIAL INVOLVEMENT >/=0.04 NG/ML INTERPRET TROPONIN I RESULT IN LIGHT OF THE TOTAL CLINICAL PRESENTATION INCLUDING CLINICAL HISTORY. ANY CONDITION RESULTING IN MYOCARDIAL INJURY CAN POTENTIALLY ELEVATE TROPONIN I LEVELS ABOVE EXPECTED NORMAL RANGES. NOTE NEW REFERENCE RANGE February 20, 2016 10:45pm Less than 0.01 NG/ML Result Comments: REFERENCE RANGES: NEGATIVE < 0.04 NG/ML POSSIBLE MYCARDIAL INVOLVEMENT >/=0.04 NG/ML INTERPRET TROPONIN I RESULT IN LIGHT OF THE TOTAL CLINICAL PRESENTATION INCLUDING CLINICAL HISTORY. ANY CONDITION RESULTING IN MYOCARDIAL INJURY CAN POTENTIALLY ELEVATE TROPONIN I LEVELS ABOVE EXPECTED NORMAL RANGES. NOTE NEW REFERENCE RANGE February 21, 2016 12:48am Allergies and Adverse Reactions Allergies and Adverse Reactions Patient Unit Number: [id number] No allergies recorded. Problem List Problem List Visit/Account #[id number] (February 20, 2016 10:39pm - February 21, 2016 1:40am) Acute Problems: Code/Condition Comments Documented Start Date Documented Resolved Date Code (s) Chest pain ICD10: R07.9 Chest pain ICD9: 786.50 Chest pain SNOMED: 81212932 Chest pain Vomiting ICD10: R11.10 Vomiting ICD9: 787.03 Vomiting SNOMED: 455346415 Vomiting Plan of Care Plan Of Care Visit/Account #[id number] (February 20, 2016 10:39pm - February 21, 2016 1:40am) Patient Instructions Drink plenty of fluids, rest. Return if symptoms worsen, if new symptoms develop, or for any other concerns. Vital Signs Vital Signs Visit/Account #[id number] (February 20, 2016 10:39pm - February 21, 2016 1:40am) Sign First Result Last Result Code(s) Body Mass Index Body Mass Index (BMI): 39.0 kg/m2 On February 20, 2016 10:36pm 58865-9 BMI (body mass index) Body Mass Index as a Calculated Value 39.3 kg/m2 On February 20, 2016 10:36pm 34396-4 BMI (body mass index) Body Surface Area as a Calculated Value 1.82 m2 On February 20, 2016 10:36pm 3140-1 BSA (body surface area) Height (Feet/Inches) 4 [ft_us] 11 [in_us] On February 20, 2016 10:36pm Temperature in Fahrenheit Temperature (Fahrenheit): 98.4 [degF] On February 20, 2016 10:36pm Temperature (Fahrenheit): 97.9 [degF] On February 21, 2016 1:30am 8310-5 Body Temperature Weight in Kilograms Weight (Kilograms): 88.18 kg On February 20, 2016 10:36pm 3141-9 Weight Measured 57091-9 Body weight measured in kilograms Functional Status Functional and Cognitive Status No Functional Status Data Medications Inpatient/Ordered Medications - Medications administered during hospital visit Visit/Account #[id number] (February 20, 2016 10:39pm - February 21, 2016 1:40am) Medication Route Sig/Schedule Precondition/Indication Comments/Instructions Codes ASPIRIN 324 MG TAB Dose: 324 MG ORAL NOW Label Comments: Chewed if no intolerance to aspirin and not aspirin taken today Aspirin 81 MG Chewable Tablet (RxNorm): 348876 (ASPIRIN) ND: 04269273362 NITROQUICK(NITROGLYCERIN) 0.4 MG/TAB TAB Dose: 1 TAB SUBLINGUAL NOW Label Comments: *DOSE 1* Do NOT give until approved by physician. Give every 3-5 minutes if needed for ongoing symptons. Max of 3 doses. Do NOT give unless: Heart rate 50-100 beats per minute SBP is greater than 90 mmHg and/or no lower than 20 mmHg below baseline Do NOT give if: inferior OR or RV infarction recent phosphodesterase inhibito use (e.g. Viagra, Levitra, Revatio) within last 24 hours or Cialis within last 48 hours. Nitroglycerin 0.4 MG Sublingual Tablet [Nitrostat] (RxNorm): 646074 NITROQUICK (NITROGLYCERIN) NDC: 42938971573 NITROQUICK(NITROGLYCERIN) 0.4 MG/TAB TAB Dose: 1 TAB SUBLINGUAL NOW Label Comments: *DOSE 2* Give every 3-5 minutes if needed for ongoing symptons. Max of 3 doses. Do NOT give unless: Heart rate 50-100 beats per minute SBP is greater than 90 mmHg and/or no lower than 20 mmHg below baseline Do NOT give if: inferior OR or RV infarction recent phosphodesterase inhibito use (e.g. Viagra, Levitra, Revatio) within last 24 hours or Cialis within last 48 hours. Nitroglycerin 0.4 MG Sublingual Tablet [Nitrostat] (RxNorm): 999691 NITROQUICK (NITROGLYCERIN) NDC: 36451907088 ZOFRAN INJ(ONDANSETRON HCL) 4 MG/2 ML INJECTION Dose: 2 ML INTRAVEN NOW Label Comments: SLOW IV PUSH MAY INCREASE FALL RISK Ondansetron 2 MG/ML Injectable Solution (RxNorm): 107063 ZOFRAN INJ (ONDANSETRON HCL) NDC: 97115398978 PEPCID INJ(FAMOTIDINE) 20 MG/2 ML INJECTION Dose: 2 ML INTRAVEN NOW Label Comments: REFRIGERATE Special Dose Instructions: IVP For AMBS/PACU area Famotidine 10 MG/ML Injectable Solution (RxNorm): 035697 PEPCID INJ (FAMOTIDINE) NDC: 72515968096 IV Medication Carriers: NORMAL SALINE(SODIUM CHLORIDE) 1000 ML INJECTION Dose: 1000 ML INTRAVEN .Q1H (Rate: 1000 MLS/HR Duration: 1 HR) Carriers: Sodium Chloride 0.154 MEQ/ML Injectable Solution (RxNorm): 143495 NORMAL SALINE (SODIUM CHLORIDE) NDC: 90012870224 MORPHINE SULFATE 4 MG/ML INJECTION Dose: 1 ML INTRAVEN NOW Label Comments: MAY INCREASE FALL RISK 1 ML Morphine Sulfate 4 MG/ML Prefilled Syringe (RxNorm): 506528 (MORPHINE SULFATE) NDC: 99929160769 Discharge Medications - Medications that patient should continue to take. Review with physician Visit/Account #[id number] (February 20, 2016 10:39pm - February 21, 2016 1:40am) Medication Route Sig/Schedule Precondition/Indication Comments/Instructions Codes ZOFRAN ODT(ONDANSETRON) 4 MG/UDTABLET TAB.RAPDIS Dose: 4 MG ORAL EVERY 8 HOURS NAUSEA Ondansetron 4 MG Disintegrating Oral Tablet [Zofran] (RxNorm): 975358 ZOFRAN ODT (ONDANSETRON) NDC: 43084075729 GLUCOPHAGE XR(MetFORMIN HCL) 500 MG TAB Dose: 500 MG ORAL DAILY 24 HR Metformin hydrochloride 500 MG Extended Release Oral Tablet [Glucophage ] (RxNorm): 436619 GLUCOPHAGE XR (MetFORMIN HCL) NDC: 88784286522 MEVACOR(LOVASTATIN) 20 MG TAB Dose: 20 MG ORAL AT BEDTIME Lovastatin 20 MG Oral Tablet (RxNorm): 303331 MEVACOR (LOVASTATIN) NDC: 90919075070 PRINIVIL(LISINOPRIL) 20 MG TABLET Dose: 20 MG ORAL DAILY Lisinopril 20 MG Oral Tablet [Prinivil] (RxNorm): 091933 PRINIVIL (LISINOPRIL) NDC: 19396788514 History Of Encounters Encounters Visit/Account #[id number] (February 20, 2016 10:39pm - February 21, 2016 1:40am) Account Status Physican Of Record Reason For Visit Visit Diagnosis Start Date/Time Stop Date/Time ER DIXON ROTHMAN MD VOMITING, CP R07.89: OTHER CHEST PAIN ICD10 Feb 20, 2016 10:39pm Feb 21, 2016 1:40am History of Procedures Procedure List No procedures recorded. Discharge Instructions Discharge Instructions Visit/Account #[id number] (February 20, 2016 10:39pm - February 21, 2016 1:40am) DISCHARGE INSTRUCTIONS Physician Documentation Social History Social History No Social History Data. Immunizations Immunizations Patient Unit Number: [id number] Immunizations No immunizations recorded.
--- OUTSIDE RECORDS SUMMARY | 2018-01-05 16:14 | XMS REPORT | Referral Summary ---
Author Author [facility] Organization [facility] Address Unknown Phone Unavailable Care Team Providers Care Inspector Conveyor Line Name Role Phone Devin Mays PCP Encounter [facility] Date(s): 09/18/16 - 09/18/16 [facility] [address] [place], [place] [address] Discharge Diagnosis: Hiatal hernia Discharge Diagnosis: Gusman's esophagus Discharge Disposition: 01-Home or Self Care Attending Physician: Gayathri Mohan MD Admitting Physician: Gayathri Mohan MD Vital Signs Most recent to 1 oldest [Reference Range]: Temperature Oral 36.8 degC [35.8-37.3 degC] (09/18/16 8:12 AM) Peripheral Pulse 73 bpm Rate [60-100 bpm] (09/18/16 8:12 AM) Respiratory Rate 12 br/min [14-20 br/min] *LOW* (09/18/16 8:12 AM) Blood Pressure 129/67 mmHg [90-140/60-90 mmHg] (09/18/16 8:12 AM) SpO2 97 % (09/18/16 8:12 AM) Problem List Condition Effective Dates Status [...] Refill(s) Start Date: 06/29/15 Status: Ordered Results Chemistry Most recent to 1 oldest [Reference Range]: Blood Glucose, 98 mg/dL Capillary [74-106 (09/18/16 8:27 AM) mg/dL] Immunizations No data available for this section Procedures Procedure Date Related Diagnosis Body Site Esophagogastroduodenoscopy 09/18/16 Social History Social History Type Response Smoking Status Former smoker; Type: Cigarettes1 1pt quit 10 years ago in 2004 Assessment and Plan Extracted from: Title: Ambulatory Patient Education Author: Gayathri Mohan MD Date: 09/18 Emergency Medicine Hiatal Hernia A hiatal hernia occurs when part of your stomach slides above the muscle that separates your abdomen from your chest (diaphragm). You can be born with a hiatal hernia (congenital), or it may develop over time. In almost all cases of hiatal hernia, only the top part of the stomach pushes through. Many people have a hiatal hernia with no symptoms. The larger the hernia, the more likely that you will have symptoms. In some cases, a hiatal hernia allows stomach acid to flow back into the tube that carries food from your mouth to your stomach (esophagus). This may cause heartburn symptoms. Severe heartburn symptoms may mean you have developed a condition called gastroesophageal reflux disease (GERD). CAUSES Hiatal hernias are caused by a weakness in the opening (hiatus) where your esophagus passes through your diaphragm to attach to the upper part of your stomach. You may be born with a weakness in your hiatus, or a weakness can develop. RISK FACTORS Older age is a major risk factor for a hiatal hernia. Anything that increases pressure on your diaphragm can also increase your risk of a hiatal hernia. This includes: . Excess weight. Frequent constipation. SIGNS AND SYMPTOMS People with a hiatal hernia often have no symptoms. If symptoms develop, they are almost always caused by GERD. They may include: Heartburn. Belching. Indigestion. Trouble swallowing. Coughing or wheezing. Sore throat. Hoarseness. Chest pain. DIAGNOSIS A hiatal hernia is sometimes found during an exam for another problem. Your health care provider may suspect a hiatal hernia if you have symptoms of GERD. Tests may be done to diagnose GERD. These may include: X-rays of your stomach or chest. An upper gastrointestinal (GI) series. This is an X-ray exam of your GI tract involving the use of a chalky liquid that you swallow. The liquid shows up clearly on the X-ray. Endoscopy. This is a procedure to look into your stomach using a thin, flexible tube that has a tiny camera and light on the end of it. TREATMENT If you have no symptoms, you may not need treatment. If you have symptoms, treatment may include: Dietary and lifestyle changes to help reduce GERD symptoms. Medicines. These may include: Nmvv-hpf-ipvkrge antacids. Medicines that make your stomach empty more quickly. Medicines that block the production of stomach acid (H2 blockers). Stronger medicines to reduce stomach acid (proton pump inhibitors). You may need surgery to repair the hernia if other treatments are not helping. HOME CARE INSTRUCTIONS Take all medicines as directed by your health care provider. Quit smoking, if you smoke. Try to achieve and maintain a healthy body weight. Eat frequent small meals instead of three large meals a day. This keeps your stomach from getting too full. Eat slowly. Do not lie down right after eating. Do noteat 1 2 hours before bed. Do not drink beverages with caffeine. These include cola, coffee, cocoa, and tea. Do not drink alcohol. Avoid foods that can make symptoms of GERD worse. These may include: Fatty foods. [place] fruits. Other foods and drinks that contain acid. Avoid putting pressure on your belly. Anything that puts pressure on your belly increases the amount of acid that may be pushed up into your esophagus. Avoid bending over, especially after eating. Raise the head of your bed by putting blocks under the legs. This keeps your head and esophagus higher than your stomach. Do not wear tight clothing around your chest or stomach. Try not to strain when having a bowel movement, when urinating, or when lifting heavy objects. SEEK MEDICAL CARE IF: Your symptoms are not controlled with medicines or lifestyle changes. You are having trouble swallowing. You have coughing or wheezing that will not go away. SEEK IMMEDIATE MEDICAL CARE IF: Your pain is getting worse. Your pain spreads to your arms, neck, jaw, teeth, or back. You have shortness of breath. You sweat for no reason. You feel sick to your stomach (nauseous) or vomit. You vomit blood. You have bright red blood in your stools. You have black, tarry stools. This information is not intended to replace advice given to you by your health care provider. Make sure you discuss any questions you have with your health care provider. Document Released: 10/24/2004 Document Revised: 08/25/2015 Document Reviewed: [employer] Patient Education 2016 [employer] Family Medicine Gusman's Esophagus Gusman's esophagus occurs when the lining of the esophagus is damaged. The esophagus is the tube that carries food from the mouth to the stomach. With Gusman's esophagus, the lining of the esophagus gets replaced by material that is similar to the lining in the intestines. This process is called intestinal metaplasia. A small number of people with Gusman's esophagus develop esophageal cancer. CAUSES The exact cause of Gusman's esophagus is unknown. SYMPTOMS Most people with Gusman's esophagus do not have symptoms. However, many patients also have gastroesophageal reflux disease (GERD). GERD can cause heartburn, trouble swallowing, and a dry cough. DIAGNOSIS Gusman's esophagus is diagnosed by an exam called upper gastrointestinal endoscopy. A thin, flexible tube (endoscope) is passed down the esophagus. The endoscope has a light and camera on the end. Your caregiver uses the endoscope to view the inside of the esophagus. A tissue sample may also be taken and examined under a microscope (biopsy). If cancer cells are found during the biopsy, this condition is called dysplasia. TREATMENT If you have no dysplasia or low-grade dysplasia, your caregiver may recommend no treatment or only taking medicines to treat GERD. Sometimes, taking acid- blocking drugs to treat GERD helps improve the tissue affected by Gusman's esophagus. Your caregiver may also recommend periodic esophageal exams. If you have high-grade dysplasia, treatment may include removing the damaged parts of the esophagus. This can be done by heating, freezing, or surgically removing the tissue. In some cases, surgery may be done to remove most of the esophagus. The stomach is then attached to the remaining portion of the esophagus. HOME CARE INSTRUCTIONS Take acid-blocking drugs for GERD if recommended by your caregiver. Keep all follow-up appointments as directed by your caregiver. You may need periodic esophageal exams. SEEK IMMEDIATE MEDICAL CARE IF: You have chest pain. You have trouble swallowing. You vomit blood or material that looks like coffee grounds. Your stools are bright red or dark. This information is not intended to replace advice given to you by your health care provider. Make sure you discuss any questions you have with your health care provider. Document Released: 10/24/2004 Document Revised: 02/02/2013 Document Reviewed: [employer] Patient Education 2016 [employer] No follow up information was provided.
--- OUTSIDE RECORDS SUMMARY | 2018-01-05 16:14 | XMS REPORT | Referral Summary ---
Author Author [facility] Organization [facility] Address Unknown Phone Unavailable Care Team Providers Care Pipeline Dispatcher Name Role Phone [facility] PCP Unavailable Encounter [facility] [id number] Date(s): 07/04/15 - 07/04/15 [facility] [address] [place], [place] [address] Discharge Disposition: 01-Home or Self Care Attending Physician: April Rolle MD Vital Signs No data available for [...]
--- OUTSIDE RECORDS SUMMARY | 2018-01-05 16:14 | XMS REPORT | Continuity Of Care Document ---
Author Author [facility] Organization [facility] Address [address] [place] [address] Phone Care Team Providers Care Vibrating Screed Operator Name Role Phone GEMMA RAMIREZ PP YASH HAYES, YESSENIA Sands AT Results Lab Results Visit/Account #[id number] (June 17, 2017 11:17am - June 17, 2017 1:05pm ) Test Result Date/Time CBC WITH REFLEXED MANUAL DIFF WHITE BLOOD COUNT(4.0-11.0 10E3/UL) 10.1 10E3/UL June 17, 2017 11:25am RED BLOOD COUNT(4.00-5.20 10E6/UL) 4.39 10E6/UL June 17, 2017 11:25am HEMOGLOBIN(12.0-16.0 G/DL) 10.8 G/DL June 17, 2017 11:25am HEMATOCRIT(36.0-46.0 %) 33.8 % June 17, 2017 11:25am MEAN CORPUSCULAR VOLUME(82.0-100.0 FL) 77.0 FL June 17, 2017 11:25am MEAN CORPUSCULAR HEMOGLOBIN(26.0-34.0 PG) 24.6 PG June 17, 2017 11:25am MEAN CORPUSCULAR HGB CONC(31.5-36.5 G/DL) 32.0 G/DL June 17, 2017 11:25am RED CELL DISTRIBUTION WIDTH(11.5-14.5 %) 17.7 % June 17, 2017 11:25am 777-3: PLATELET COUNT(150-450 10E3/UL) 426 10E3/UL June 17, 2017 11:25am MEAN PLATELET VOLUME(8.2-12.4 FL) 8.8 FL June 17, 2017 11:25am DIFF TYPE MANUAL June 17, 2017 11:25am NEUTROPHIL % (MANUAL)(40-70 %) 96 % June 17, 2017 11:25am LYMPHOCYTES % (MANUAL)(15-45 %) 1 % June 17, 2017 11:25am MONOCYTES % (MANUAL)(2-10 %) 3 % June 17, 2017 11:25am EOSINOPHILS % (MANUAL)(0-6 %) 0 % June 17, 2017 11:25am BASOPHILS % (MANUAL)(0-1 %) 0 % June 17, 2017 11:25am NUCLEATED RBCS (MANUAL)(0-0 %) 0 % June 17, 2017 11:25am NEUTROPHILS # (MANUAL)(2.5-7.5 10E3/UL) 9.7 10E3/UL June 17, 2017 11:25am LYMPHOCYTES # (MANUAL)(1.0-4.0 10E3/UL) 0.1 10E3/UL June 17, 2017 11:25am MONOCYTES # (MANUAL)(0.2-0.8 10E3/UL) 0.3 10E3/UL June 17, 2017 11:25am EOSINOPHILS # (MANUAL)(0.0-0.4 10E3/UL) 0.0 10E3/UL June 17, 2017 11:25am BASOPHILS # (MANUAL)(0.0-0.2 10E3/UL) 0.0 10E3/UL June 17, 2017 11:25am PLATELET ESTIMATE INCREASED June 17, 2017 11:25am WBC MORPHOLOGY COMMENT NORMAL June 17, 2017 11:25am RBC MORPHOLOGY COMMENT NORMAL June 17, 2017 11:25am PLATELET MORPHOLOGY COMMENT NORMAL June 17, 2017 11:25am UA WITH SCREEN FOR CULTURE COLOR,URINE YELLOW June 17, 2017 11:22am CLARITY,URINE CLEAR June 17, 2017 11:22am GLUCOSE, URINE(NEGATIVE MG/DL) NEGATIVE MG/DL June 17, 2017 11:22am URINE BILIRUBIN(NEGATIVE) NEGATIVE June 17, 2017 11:22am KETONES,URINE(NEGATIVE MG/DL) NEGATIVE MG/DL June 17, 2017 11:22am URINE SPECIFIC GRAVITY(1.001-1.035) 1.013 June 17, 2017 11:22am URINE BLOOD(NEGATIVE) NEGATIVE June 17, 2017 11:22am URINE PH(5.0-9.0) 6.5 June 17, 2017 11:22am URINE PROTEIN(Less than 20 MG/DL) NEGATIVE MG/DL June 17, 2017 11:22am URINE UROBILINOGEN(0.2-1.0 MG/DL) 0.2-1.0 MG/DL June 17, 2017 11:22am URINE NITRITE(NEGATIVE) NEGATIVE June 17, 2017 11:22am LEUKOCYTE ESTERASE ,URINE(NEGATIVE) NEGATIVE June 17, 2017 11:22am URINE CULTURE NOT INDICATED June 17, 2017 11:22am URINE MICROSCOPIC REQUIRED NO June 17, 2017 11:22am COMPLETE METABOLIC PROFILE GLUCOSE(70-110 MG/DL) 134 MG/DL June 17, 2017 11:25am BLOOD UREA NITROGEN(6-20 MG/DL) 20 MG/DL June 17, 2017 11:25am CREATININE(0.50-1.20 MG/DL) 0.70 MG/DL June 17, 2017 11:25am EST GLOMERULAR FILTRATION RATE(Greater than or equal to 60) Greater than or equal to 60 Result Comments: If the patient is of -[place] descent/extraction multiply the eGFR value by 1.212 to obtain the actual eGFR. >=60 mg/dL Normal 30-59 mg/dL Moderate Kidney Disease 15-29 mg/dL Severe Kidney Disease <15 mg/dL Kidney Failure June 17, 2017 11:25am BUN CREATININE RATIO(10.0-20.0 RATIO) 29.0 RATIO June 17, 2017 11:25am SODIUM(135-145 MMOL/L) 130 MMOL/L June 17, 2017 11:25am POTASSIUM(3.6-5.0 MMOL/L) 4.4 MMOL/L June 17, 2017 11:25am CHLORIDE(101-111 MMOL/L) 96 MMOL/L June 17, 2017 11:25am CO2(21-31 MMOL/L) 23 MMOL/L June 17, 2017 11:25am ANION GAP(8-18) 15 June 17, 2017 11:25am OSMO CALCULATED(270.0-290.0) 265.4 June 17, 2017 11:25am CALCIUM(8.5-10.5 MG/DL) 8.8 MG/DL June 17, 2017 11:25am BILIRUBIN,TOTAL(0.1-1.2 MG/DL) 0.4 MG/DL June 17, 2017 11:25am ALKALINE PHOSPHATASE(42-121 IU/L) 83 IU/L June 17, 2017 11:25am ASPARTATE AMINO TRANSFERASE(10-42 IU/L) 30 IU/L June 17, 2017 11:25am ALANINE AMINOTRANSFERASE(10-60 IU/L) 30 IU/L June 17, 2017 11:25am TOTAL PROTEIN(6.4-8.2 G/DL) 7.6 G/DL June 17, 2017 11:25am ALBUMIN(3.5-5.5 G/DL) 4.0 G/DL June 17, 2017 11:25am GLOBULIN(2.4-3.6) 3.6 June 17, 2017 11:25am ALBUMIN/GLOBULIN RATIO(0.9-1.8 RATIO) 1.1 RATIO June 17, 2017 11:25am Allergies and Adverse Reactions Allergies and Adverse Reactions Patient Unit Number: [id number] Agent Type Reaction Severity Status NO KNOWN ALLERGIES Drug Allergy Unknown Unknown Active Problem List Problem List Visit/Account #[id number] (June 17, 2017 11:17am - June 17, 2017 1:05pm ) Active Problems: Code/Condition Comments Documented Start Date Documented Resolved Date Code (s) E87.1 HYPO-OSMOLALITY AND HYPONATREMIA June 17, 2017 R11.2 NAUSEA WITH VOMITING, UNSPECIFIED June 17, 2017 Z79.51 AGRICULTURE EXTENSION SPECIALIST (CURRENT) USE OF INHALED STEROIDS June 17, 2017 Plan of Care Plan Of Care Visit/Account #[id number] (June 17, 2017 11:17am - June 17, 2017 1:05pm ) Patient Instructions Resume eating/drinking as tolerated. Use zofran as prescribed for nausea. Discontinue Flagyl. Start clindamycin as prescribed. Follow up with your primary care provider in next week. Return to ED if worsening nausea, vomiting, fever, chills, or any other concerns. Vital Signs Vital Signs No Vital Signs Data. Functional Status Functional and Cognitive Status No Functional Status Data Medications Home Medications - Medications that the patient was taking prior to arrival at the hospital Visit/Account #[id number] (June 17, 2017 11:17am - June 17, 2017 1:05pm ) Medication Route Sig/Schedule Precondition/Indication Comments/Instructions Codes ZOFRAN ODT(ONDANSETRON) 4 MG TAB.RAPDIS Dose: 4 MG ORAL Q4H NAUSEA/VOMITING ZOFRAN ODT (ONDANSETRON) NDC: 52442798361 CLEOCIN(CLINDAMYCIN HCL) 150 MG CAPSULE Dose: 300 MG ORAL BID CLEOCIN (CLINDAMYCIN HCL) NDC: 25320256256 Inpatient/Ordered Medications - Medications administered during hospital visit Visit/Account #[id number] (June 17, 2017 11:17am - June 17, 2017 1:05pm ) Medication Route Sig/Schedule Precondition/Indication Comments/Instructions Codes ZOFRAN INJ(ONDANSETRON HCL) 4 MG/2 ML INJECTION Dose: 2 ML INTRAVEN NOW ZOFRAN INJ (ONDANSETRON HCL) NDC: 64595820647 IV Medication Carriers: NORMAL SALINE(SODIUM CHLORIDE) 1000 ML INJECTION Dose: 1000 ML INTRAVEN .Q1H (Rate: 1000 MLS/HR Duration: 1 HR) Carriers: NORMAL SALINE (SODIUM CHLORIDE) NDC: 87368236459 CLEOCIN(CLINDAMYCIN HCL) 150 MG CAP Dose: 300 MG ORAL NOW CLEOCIN (CLINDAMYCIN HCL) NDC: 24477242824 History Of Encounters Encounters Visit/Account #[id number] (June 17, 2017 11:17am - June 17, 2017 1:05pm ) Account Status Physican Of Record Reason For Visit Visit Diagnosis Start Date/Time Stop Date/Time ER YESSENIA BERRIOS MD N/V R11.2: NAUSEA WITH VOMITING, UNSPECIFIED ICD10 Jun 17, 2017 11:17am Jun 17, 2017 1:05pm History of Procedures Procedure List No procedures recorded. Discharge Instructions Discharge Instructions Visit/Account #[id number] (June 17, 2017 11:17am - June 17, 2017 1:05pm ) DISCHARGE INSTRUCTIONS Physician Documentation Social History Social History No Social History Data. Immunizations Immunizations Patient Unit Number: [id number] Immunizations No immunizations recorded.
--- OUTSIDE RECORDS SUMMARY | 2018-01-05 16:14 | XMS REPORT | Referral Summary ---
Author Author [facility] Organization [facility] Address Unknown Phone Unavailable Care Team Providers Care Dietitian Chief Name Role Phone [facility] P[facility] Unavailable Encounter [facility] [id number] Date(s): 10/04/15 - 10/04/15 [facility] [address] [place] [address] Discharge Diagnosis: Esophageal reflux Discharge Diagnosis: Colon cancer screening Discharge Disposition: 01-Home or Self Care Attending Physician: Fidencio Chandra MD Admitting Physician: Fidencio Chandra MD Referring Physician: Christie Veronica Vital Signs Most recent to 1 oldest [Reference Range]: Peripheral Pulse 73 bpm Rate [60-100 bpm] (10/04/15 2:51 PM) Blood Pressure 105/60 mmHg [90-140/60-90 mmHg] (10/04/15 2:51 PM) Problem List Condition Effective Dates Status [...] 2004 Assessment and Plan Extracted from: Title: GI Office Visit Note Author: Fidencio Chandra MD Date: 10/04/15 Assessment/Plan Impression:1. Esophageal reflux with probable Gusman's esophagus 2. Colon cancer screening related to age Plan: We'll proceed with colonoscopyand upper endoscopy. Procedures were discussed with the patient including the risk of perforation bleeding. She wished to proceed and this was scheduled down stairs in the day surgery clinic
--- OUTSIDE RECORDS SUMMARY | 2018-01-05 16:14 | XMS REPORT | Referral Summary ---
Author Author [facility] Organization [facility] Address Unknown Phone Unavailable Care Team Providers Care Crisis Intervention Specialist Name Role Phone Serena Rosen PCP Encounter [facility] Date(s): 12/05/16 - 12/05/16 [facility] [address] [place], [place] [address] Discharge Disposition: 01-Home or Self Care Attending Physician: Serena Rosen SCHOOL SPEECH THERAPIST Vital Signs No data available for this [...]
--- OUTSIDE RECORDS SUMMARY | 2018-01-05 16:14 | XMS REPORT | Referral Summary ---
Author Author [facility] Organization [facility] Address Unknown Phone Unavailable Care Team Providers Care Photo Journalist Name Role Phone [facility] PCP Unavailable Encounter [facility] [id number] Date(s): 10/18/15 - 10/18/15 [facility] [address] [address] Discharge Diagnosis: Gusman esophagus Discharge Diagnosis: Colon polyp Discharge Disposition: 01-Home or Self Care Attending Physician: Fidencio Chandra MD Admitting Physician: Fidencio Chandra MD Vital Signs Most recent to 1 oldest [Reference Range]: Temperature Oral 36.8 degC [35.8-37.3 degC] (10/18/15 9:18 AM) Peripheral Pulse 66 bpm Rate [60-100 bpm] (10/18/15 9:18 AM) Respiratory Rate 16 br/min [14-20 br/min] (10/18/15 9:18 AM) Blood Pressure 103/66 mmHg [90-140/60-90 mmHg] (10/18/15 9:18 AM) SpO2 94 % (10/18/15 9:18 AM) Problem List Condition Effective Dates Status [...] to 1 oldest [Reference Range]: Blood Glucose, 118 mg/dL Capillary [74-106 *HI* mg/dL] (10/18/15 9:23 AM) Immunizations No data available for this section Procedures No data available for this section Social History Social History Type Response Smoking Status Former smoker; Type: Cigarettes1 1pt quit 10 years ago in 2004 Assessment and Plan Extracted from: Title: Ambulatory Patient Education Author: Fidencio Chandra MD Date: Family Medicine Gusman's Esophagus Gusman's esophagus occurs [...] Released: 10/24/2004 Document Revised: 02/02/2013 Document Reviewed: [employer] Patient Information 2015 [employer]. Colon Polyps Polyps are lumps of extra tissue growing inside the body. Polyps can grow in the large intestine (colon). Most colon polyps are noncancerous (benign). However, some colon polyps can become cancerous over time. Polyps that are larger than a pea may be harmful. To be safe, caregivers remove and test all polyps. CAUSES Polyps form when mutations in the genes cause your cells to grow and divide even though no more tissue is needed. RISK FACTORS There are a number of risk factors that can increase your chances of getting colon polyps. They include: Being older than 50 years. Family history of colon polyps or colon cancer. Long-term colon diseases, such as colitis or Crohn disease. Being overweight. Smoking. Being inactive. Drinking too much alcohol. SYMPTOMS Most small polyps do not cause symptoms. If symptoms are present, they may include: Blood in the stool. The stool may look dark red or black. Constipation or diarrhea that lasts longer than 1 week. DIAGNOSIS People often do not know they have polyps until their caregiver finds them during a regular checkup. Your caregiver can use 4 tests to check for polyps: Digital rectal exam. The caregiver wears gloves and feels inside the rectum. This test would find polyps only in the rectum. Barium enema. The caregiver puts a liquid called barium into your rectum before taking X-rays of your colon. Barium makes your colon look white. Polyps are dark, so they are easy to see in the X-ray pictures. Sigmoidoscopy. A thin, flexible tube (sigmoidoscope) is placed into your rectum. The sigmoidoscope has a light and tiny camera in it. The caregiver uses the sigmoidoscope to look at the last third of your colon. Colonoscopy. This test is like sigmoidoscopy, but the caregiver looks at the entire colon. This is the most common method for finding and removing polyps. TREATMENT Any polyps will be removed during a sigmoidoscopy or colonoscopy. The polyps are then tested for cancer. PREVENTION To help lower your risk of getting more colon polyps: Eat plenty of fruits and vegetables. Avoid eating fatty foods. Do not smoke. Avoid drinking alcohol. Exercise every day. Lose weight if recommended by your caregiver. Eat plenty of calcium and folate. Foods that are rich in calcium include milk, cheese, and broccoli. Foods that are rich in folate include chickpeas, kidney beans, and spinach. HOME CARE INSTRUCTIONS Keep all follow-up appointments as directed by your caregiver. You may need periodic exams to check for polyps. SEEK MEDICAL CARE IF: You notice bleeding during a bowel movement. This information is not intended to replace advice given to you by your health care provider. Make sure you discuss any questions you have with your health care provider. Document Released: 04/30/2005 Document Revised: 05/23/2015 Document Reviewed: [facility] Patient Information 2015 [employer] [facility]. No follow up information was provided.
--- OUTSIDE RECORDS SUMMARY | 2018-01-05 16:15 | XMS REPORT | Continuity Of Care Document ---
Author Author [facility] Organization [facility] Address [address] [place] [address] Phone Care Team Providers Care Booking Agent Name Role Phone BRISSA SO DO AT UNASSIGNED, ED PHYSICIAN Unavailable Unavailable SAI HEDRICK DO CP NON STAFF, PROVIDER Unavailable Unavailable Results Lab Results Visit/Account #[id number] (March 30, 2016 1:02pm - March 31, 2016 1:21pm) Test Result Date/Time POCGL POCGL(70-110 MG/DL) 101 MG/DL March 30, 2016 4:36pm 146 MG/DL March 30, 2016 9:43pm 123 MG/DL March 31, 2016 6:20am 151 MG/DL March 31, 2016 11:44am 22565-1: COMPLETE BLOOD COUNT WITH DIFF WHITE BLOOD COUNT(4.0-11.0 10E3/UL) 6.2 10E3/UL March 30, 2016 1:30pm RED BLOOD COUNT(4.00-5.20 10E6/UL) 4.38 10E6/UL March 30, 2016 1:30pm HEMOGLOBIN(12.0-16.0 G/DL) 11.4 G/DL March 30, 2016 1:30pm HEMATOCRIT(36.0-46.0 %) 35.2 % March 30, 2016 1:30pm MEAN CORPUSCULAR VOLUME(82.0-100.0 FL) 80.4 FL March 30, 2016 1:30pm 72033-1: MEAN CORPUSCULAR HEMOGLOBIN(26.0-34.0 PG) 26.0 PG March 30, 2016 1:30pm MEAN CORPUSCULAR HGB CONC(31.5-36.5 G/DL) 32.4 G/DL March 30, 2016 1:30pm RED CELL DISTRIBUTION WIDTH(11.5-14.5 %) 16.4 % March 30, 2016 1:30pm 777-3: PLATELET COUNT(150-450 10E3/UL) 383 10E3/UL March 30, 2016 1:30pm MEAN PLATELET VOLUME(8.2-12.4 FL) 9.3 FL March 30, 2016 1:30pm 770-8: NEUTROPHILS % (AUTO)(40-70 %) 63 % March 30, 2016 1:30pm LYMPHOCYTES % (AUTO)(15-45 %) 24 % March 30, 2016 1:30pm 5905-5: MONOCYTES % (AUTO)(2-10 %) 10 % March 30, 2016 1:30pm 713-8: EOSINOPHILS % (AUTO)(0-6 %) 2 % March 30, 2016 1:30pm 706-2: BASOPHILS % (AUTO)(0-1 %) 1 % March 30, 2016 1:30pm 56951-5: IMMATURE GRANS % (AUTO)(0-0 %) 1 % March 30, 2016 1:30pm NUCLEATED RBCS (AUTO)(0-0 %) 0 % March 30, 2016 1:30pm 751-8: NEUTROPHILS # (AUTO)(2.5-7.5 10E3/UL) 3.9 10E3/UL March 30, 2016 1:30pm 23409-3: LYMPHOCYTES # (AUTO)(1.0-4.0 10E3/UL) 1.5 10E3/UL March 30, 2016 1:30pm 742-7: MONOCYTES # (AUTO)(0.2-0.8 10E3/UL) 0.6 10E3/UL March 30, 2016 1:30pm 711-2: EOSINOPHILS # (AUTO)(0.0-0.4 10E3/UL) 0.1 10E3/UL March 30, 2016 1:30pm 704-7: BASOPHILS # (AUTO)(0.0-0.2 10E3/UL) 0.1 10E3/UL March 30, 2016 1:30pm IMMATURE GRANS # (AUTO)(0.0-0.0 10E3/UL) 0.0 10E3/UL March 30, 2016 1:30pm DIFF TYPE AUTOMATED March 30, 2016 1:30pm 27138-9: PROTHROMBIN TIME WITH INR PROTHROMBIN TIME(12.1-14.0 SEC) 12.7 SEC March 30, 2016 1:30pm 37507-0: INR 0.95 Result Comments: INR reference interval applies to patients on anticoagulant therapy. Suggested INR therapeutic range for oral anticoagulant therapy: (Stabilized anticoagulated patients) Routine Therapy: 2.0 to 3.0 Recurrent Myocardial Infarction: 2.5 to 3.5 Mechanical Prosthetic Valves: 2.5 to 3.5 March 30, 2016 1:30pm PARTIAL THROMBOPLASTIN TIME PARTIAL THROMBOPLASTIN TIME(22.2-37.4 SEC) 32.7 SEC March 30, 2016 1:30pm 47464-3: D-DIMER 59932-0: D-DIMER(0.00-0.49 UG/ML) Less than or equal to 0.27 UG/ML March 30, 2016 1:30pm 28977-2: COMPLETE METABOLIC PROFILE GLUCOSE(70-110 MG/DL) 142 MG/DL March 30, 2016 1:30pm BLOOD UREA NITROGEN(6-20 MG/DL) 18 MG/DL March 30, 2016 1:30pm CREATININE(0.50-1.20 MG/DL) 0.83 MG/DL March 30, 2016 1:30pm 66046-8: EST GLOMERULAR FILTRATION RATE(Greater than or equal to 60) Greater than or equal to 60 Result Comments: If the patient is of -[place] descent/extraction multiply the eGFR value by 1.212 to obtain the actual eGFR. >=60 mg/dL Normal 30-59 mg/dL Moderate Kidney Disease 15-29 mg/dL Severe Kidney Disease <15 mg/dL Kidney Failure March 30, 2016 1:30pm BUN CREATININE RATIO(10.0-20.0 RATIO) 22.0 RATIO March 30, 2016 1:30pm SODIUM(135-145 MMOL/L) 127 MMOL/L Result Comments: --- 03/30/16 1417 --- CORRECTED REPORT NA previously reported as: 131 L MMOL/L March 30, 2016 1:30pm POTASSIUM(3.6-5.0 MMOL/L) 3.7 MMOL/L March 30, 2016 1:30pm CHLORIDE(101-111 MMOL/L) 97 MMOL/L March 30, 2016 1:30pm 8-9: CO2(21-31 MMOL/L) 25 MMOL/L March 30, 2016 1:30pm ANION GAP(8-18) 9 Result Comments: --- 03/30/16 141 --- CORRECTED REPORT AGAP previously reported as: March 30, 2016 1:30pm OSMO CALCULATED(270.0-290.0) 259.5 Result Comments: --- 03/30/161416 --- CORRECTED REPORT OSMOC previously reported as: 267.0 L March 30, 2016 1:30pm CALCIUM(8.5-10.5 MG/DL) 9.4 MG/DL March 30, 2016 1:30pm BILIRUBIN,TOTAL(0.1-1.2 MG/DL) 0.2 MG/DL March 30, 2016 1:30pm ALKALINE PHOSPHATASE(42-121 IU/L) 89 IU/L March 30, 2016 1:30pm ASPARTATE AMINO TRANSFERASE(10-42 IU/L) 18 IU/L March 30, 2016 1:30pm ALANINE AMINOTRANSFERASE(10-60 IU/L) 14 IU/L March 30, 2016 1:30pm TOTAL PROTEIN(6.4-8.2 G/DL) 7.7 G/DL March 30, 2016 1:30pm ALBUMIN(3.5-5.5 G/DL) 4.1 G/DL March 30, 2016 1:30pm GLOBULIN(2.4-3.6) 3.6 March 30, 2016 1:30pm ALBUMIN/GLOBULIN RATIO(0.9-1.8 RATIO) 1.1 RATIO March 30, 2016 1:30pm BASIC METABOLIC PANEL GLUCOSE(70-110 MG/DL) 118 MG/DL March 31, 2016 6:54am BLOOD UREA NITROGEN(6-20 MG/DL) 17 MG/DL March 31, 2016 6:54am CREATININE(0.50-1.20 MG/DL) 0.81 MG/DL March 31, 2016 6:54am 85922-5: EST GLOMERULAR FILTRATION RATE(Greater than or equal to 60) Greater than or equal to 60 Result Comments: If the patient is of -[place] descent/extraction multiply the eGFR value by 1.212 to obtain the actual eGFR. >=60 mg/dL Normal 30-59 mg/dL Moderate Kidney Disease 15-29 mg/dL Severe Kidney Disease <15 mg/dL Kidney Failure March 31, 2016 6:54am BUN CREATININE RATIO(10.0-20.0 RATIO) 21.0 RATIO March 31, 2016 6:54am SODIUM(135-145 MMOL/L) 130 MMOL/L March 31, 2016 6:54am POTASSIUM(3.6-5.0 MMOL/L) 4.3 MMOL/L March 31, 2016 6:54am CHLORIDE(101-111 MMOL/L) 100 MMOL/L March 31, 2016 6:54am 2028-9: CO2(21-31 MMOL/L) 24 MMOL/L March 31, 2016 6:54am ANION GAP(8-18) 10 March 31, 2016 6:54am OSMO CALCULATED(270.0-290.0) 263.4 March 31, 2016 6:54am CALCIUM(8.5-10.5 MG/DL) 8.9 MG/DL March 31, 2016 6:54am 26502-2: CARDIAC TROPONIN I 41165-7: CARDIAC TROPONIN I(0.01-0.04 NG/ML) Less than 0.01 NG/ML Result Comments: REFERENCE RANGES: NEGATIVE < 0.04 NG/ML POSSIBLE MYCARDIAL INVOLVEMENT >/=0.04 NG/ML INTERPRET TROPONIN I RESULT IN LIGHT OF THE TOTAL CLINICAL PRESENTATION INCLUDING CLINICAL HISTORY. ANY CONDITION RESULTING IN MYOCARDIAL INJURY CAN POTENTIALLY ELEVATE TROPONIN I LEVELS ABOVE EXPECTED NORMAL RANGES. NOTE NEW REFERENCE RANGE March 30, 2016 1:30pm Less than 0.01 NG/ML Result Comments: REFERENCE RANGES: NEGATIVE < 0.04 NG/ML POSSIBLE MYCARDIAL INVOLVEMENT >/=0.04 NG/ML INTERPRET TROPONIN I RESULT IN LIGHT OF THE TOTAL CLINICAL PRESENTATION INCLUDING CLINICAL HISTORY. ANY CONDITION RESULTING IN MYOCARDIAL INJURY CAN POTENTIALLY ELEVATE TROPONIN I LEVELS ABOVE EXPECTED NORMAL RANGES. NOTE NEW REFERENCE RANGE March 30, 2016 5:58pm Less than 0.01 NG/ML Result Comments: REFERENCE RANGES: NEGATIVE < 0.04 NG/ML POSSIBLE MYCARDIAL INVOLVEMENT >/=0.04 NG/ML INTERPRET TROPONIN I RESULT IN LIGHT OF THE TOTAL CLINICAL PRESENTATION INCLUDING CLINICAL HISTORY. ANY CONDITION RESULTING IN MYOCARDIAL INJURY CAN POTENTIALLY ELEVATE TROPONIN I LEVELS ABOVE EXPECTED NORMAL RANGES. NOTE NEW REFERENCE RANGE March 31, 2016 12:28am 43181-4: LIPID PROFILE TRIGLYCERIDES(35-160 MG/DL) 124 MG/DL March 31, 2016 6:54am CHOLESTEROL(0-200 MG/DL) 185 MG/DL March 31, 2016 6:54am LDL CHOLESTEROL,DIRECT(0-99 MG/DL) 111 MG/DL March 31, 2016 6:54am VLDL CHOLESTEROL(1-53 MG/DL) 25 MG/DL March 31, 2016 6:54am HDL CHOLESTEROL(35-85 MG/DL) 53 MG/DL March 31, 2016 6:54am CHOL/HDL RATIO(0.0-4.4 RATIO) 3.5 RATIO March 31, 2016 6:54am 3040-3: LIPASE 3040-3: LIPASE(22-51 U/L) 16 U/L March 30, 2016 1:30pm 82128-5: GLYCOHEMOGLOBIN A1C 4548-4: %A1C(4.6-6.2 %) 6.9 % March 30, 2016 1:30pm Allergies and Adverse Reactions Allergies and Adverse Reactions Patient Unit Number: [id number] Agent Type Reaction Severity Status NO KNOWN ALLERGIES Drug Allergy Unknown Unknown Active Problem List Problem List Visit/Account #[id number] (March 30, 2016 1:02pm - March 31, 2016 1:21pm) Acute Problems: Code/Condition Comments Documented Start Date Documented Resolved Date Code (s) Hyponatremia ICD10: E87.1 Hyponatremia ICD9: 276.1 Hyponatremia SNOMED: 96466203 Hyponatremia Chest pain, rule out acute myocardial infarction ICD10: R07.9 Chest pain, rule out acute myocardial infarction ICD9: 786.50 Chest pain, rule out acute myocardial infarction SNOMED: 92337037 Chest pain, rule out acute myocardial infarction Plan of Care Plan Of Care Visit/Account #[id number] (March 30, 2016 1:02pm - March 31, 2016 1:21pm) Patient Instructions Instructions DI for Hyponatremia DI for Chest Pain Prednisone Aspirin Metformin Vital Signs Vital Signs Visit/Account #[id number] (March 30, 2016 1:02pm - March 31, 2016 1:21pm) Sign First Result Last Result Code(s) Blood Pressure 118/ 67 mm[Hg] On March 30, 2016 3:55pm 131/ 72 mm[Hg] On March 31, 2016 10:21am 8480-6 BP Systolic Heart Rate/Pulse Pulse Rate (adult): 65 /min On March 30, 2016 3:55pm Pulse Rate (adult): 84 /min On March 31, 2016 10:21am 8867-4 Heart Rate 8893-0 Pulse rate Respiratory Rate Respiratory Rate: 24 /min On March 30, 2016 3:55pm Respiratory Rate: 18 /min On March 31, 2016 10:21am 9279-1 Respiratory rate Temperature in Fahrenheit Temperature (Fahrenheit): 98.9 [degF] On March 30, 2016 1:01pm Temperature (Fahrenheit): 98.6 [degF] On March 31, 2016 10:21am 8310-5 Body Temperature Weight in Kilograms Weight (Kilograms): 67.5 kg On March 30, 2016 1:01pm 3141-9 Weight Measured 76141-1 Body weight measured in kilograms Functional Status Functional and Cognitive Status No Functional Status Data Medications Home Medications - Medications that the patient was taking prior to arrival at the hospital Visit/Account #[id number] (March 30, 2016 1:02pm - March 31, 2016 1:21pm) Medication Route Sig/Schedule Precondition/Indication Comments/Instructions Codes ZOFRAN ODT(ONDANSETRON) 4 MG/UDTABLET TAB.RAPDIS Dose: 4 MG ORAL EVERY 8 HOURS NAUSEA Ondansetron 4 MG Disintegrating Oral Tablet [Zofran] (RxNorm): 506143 ZOFRAN ODT (ONDANSETRON) NDC: 69735110429 GLUCOPHAGE XR(MetFORMIN HCL) 500 MG TAB Dose: 500 MG ORAL DAILY 24 HR Metformin hydrochloride 500 MG Extended Release Oral Tablet [Glucophage ] (RxNorm): 686094 GLUCOPHAGE XR (MetFORMIN HCL) NDC: 08181889915 MEVACOR(LOVASTATIN) 20 MG TAB Dose: 20 MG ORAL AT BEDTIME Lovastatin 20 MG Oral Tablet (RxNorm): 629457 MEVACOR (LOVASTATIN) NDC: 65176508929 PRINIVIL(LISINOPRIL) 20 MG TABLET Dose: 20 MG ORAL DAILY Lisinopril 20 MG Oral Tablet [Prinivil] (RxNorm): 983097 PRINIVIL (LISINOPRIL) NDC: 52710613128 FERROUS SULFate(FERROUS SULFATE) 325 MG TABLET Dose: 325 MG ORAL DAILY ferrous sulfate 325 MG Oral Tablet (RxNorm): 352510 FERROUS SULFate (FERROUS SULFATE) NDC: 24133473520 SYMBICORT 80-4.5(BUDESONIDE/FORMOTEROL) 6.9 GM INHALER Dose: 2 PUFF INHALED TWICE A DAY SYMBICORT 80-4.5 (BUDESONIDE/FORMOTEROL) NDC: 40343345616 Baclofen(BACLOFEN) 10 MG TAB Dose: 10 MG ORAL 3 TIMES A DAY Baclofen (BACLOFEN) NDC: 23001484393 Sertraline Hcl(SERTRALINE HCL) 100 MG TABLET Dose: 100 MG ORAL DAILY Sertraline 100 MG Oral Tablet (RxNorm): 931193 Sertraline Hcl (SERTRALINE HCL) NDC: 79776741645 ADVIL(IBUPROFEN) 200 MG TABLET Dose: 400 MG ORAL EVERY 4 HOURS PAIN OR FEVER Ibuprofen 200 MG Oral Tablet [Advil] (RxNorm): 871909 ADVIL (IBUPROFEN) NDC: 19017079952 GLUCOPHAGE(MetFORMIN HCL) 500 MG TAB Dose: 500 MG ORAL DAILY Metformin hydrochloride 500 MG Oral Tablet [Glucophage] (RxNorm): 574401 GLUCOPHAGE (MetFORMIN HCL) NDC: 51329053127 Aspirin Chew(ASPIRIN) 81 MG TAB Dose: 81 MG ORAL DAILY Aspirin Chew (ASPIRIN) NDC: 98910066853 DELTASONE(PredniSONE) 20 MG TAB Dose: 20 MG ORAL DAILY Prednisone 20 MG Oral Tablet (RxNorm): 263846 DELTASONE (PredniSONE) NDC: 21652203814 TYLENOL(ACETAMINOPHEN) 500 MG TAB Dose: 500-1000 MG ORAL EVERY 4 HOURS PAIN Rx Instructions: 500 - 1000 MG Acetaminophen 500 MG Oral Tablet [Mapap] (RxNorm): 673409 TYLENOL (ACETAMINOPHEN) NDC: 19215977332 Inpatient/Ordered Medications - Medications administered during hospital visit Visit/Account #[id number] (March 30, 2016 1:02pm - March 31, 2016 1:21pm) Medication Route Sig/Schedule Precondition/Indication Comments/Instructions Codes ASPIRIN 324 MG TAB Dose: 324 MG ORAL NOW Label Comments: Chewed if no intolerance to aspirin and not aspirin taken today Aspirin 81 MG Chewable Tablet (RxNorm): 173185 (ASPIRIN) NDC: 56538545539 NITROQUICK(NITROGLYCERIN) 0.4 MG/TAB TAB Dose: 1 TAB SUBLINGUAL NOW Label Comments: *DOSE 1* Do NOT give until approved by physician. Give every 3-5 minutes if needed for ongoing symptons. Max of 3 doses. Do NOT give unless: Heart rate 50-100 beats per minute SBP is greater than 90 mmHg and/or no lower than 20 mmHg below baseline Do NOT give if: inferior IL or RV infarction recent phosphodesterase inhibito use (e.g. Viagra, Levitra, Revatio) within last 24 hours or Cialis within last 48 hours. Nitroglycerin 0.4 MG Sublingual Tablet [Nitrostat] (RxNorm): 830953 NITROQUICK (NITROGLYCERIN) NDC: 27559201848 TYLENOL(ACETAMINOPHEN) 325 MG TAB Dose: 650 MG ORAL Q6H PRN Reason: MILD PAIN Label Comments: Do not exceed 4000 mg of total acetaminophen per 24 hours Acetaminophen 325 MG Oral Tablet (RxNorm): 102559 TYLENOL (ACETAMINOPHEN) NDC: 06142984829 ASPIRIN 81 MG TAB Dose: 81 MG ORAL DAILY Aspirin 81 MG Chewable Tablet (RxNorm): 843547 (ASPIRIN) NDC: 41617886867 PEPCID(FAMOTIDINE) 20 MG TAB Dose: 20 MG ORAL TWICE A DAY Famotidine 20 MG Oral Tablet (RxNorm): 427781 PEPCID (FAMOTIDINE) NDC: 93248970583 HEPARIN PF 5000 UNIT/0.5 ML SYRINGE Dose: 0.5 ML SUBCUTANEOUSLY EVERY 8 HOURS 0.5 ML heparin sodium, porcine 97171 UNT/ML Cartridge (RxNorm): 7746676 (HEPARIN PF) NDC: 53581591584 LIORESAL(BACLOFEN) 10 MG TAB Dose: 10 MG ORAL 3 TIMES A DAY Label Comments: MAY INCREASE FALL RISK Baclofen 10 MG Oral Tablet (RxNorm): 635270 LIORESAL (BACLOFEN) NDC: 52840914405 SYMBICORT 80(BUDESONIDE/FORMOTEROL) 60 PUFF/6.9 GM INHALER Dose: 0.23 GM INHALED TWICE DAILY Label Comments: SHAKE WELL FOR 5 SECONDS PRIOR TO EACH USE. SYMBICORT 80 (BUDESONIDE/FORMOTEROL) NDC: 04457490632 FERROUS SULFATE 325 MG TAB Dose: 325 MG ORAL DAILY Label Comments: TAKE WITH FOOD IF STOMACH UPSET OCCURS. OTHERWISE TAKE BETWEEN MEALS FOR MAXIMUM ABSORPTION. ferrous sulfate 325 MG Oral Tablet (RxNorm): 944999 (FERROUS SULFATE) NDC: 36764839264 ZESTRIL(LISINOPRIL) 20 MG TAB Dose: 20 MG ORAL DAILY Label Comments: MAY INCREASE FALL RISK Lisinopril 20 MG Oral Tablet (RxNorm): 886915 ZESTRIL (LISINOPRIL) NDC: 80278437088 MEVACOR(LOVASTATIN) 20 MG TAB Dose: 20 MG ORAL AT BEDTIME Label Comments: TERATOGENIC. WOMEN SHOULD NOT HANDLE OR CRUSH. Lovastatin 20 MG Oral Tablet (RxNorm): 379855 MEVACOR (LOVASTATIN) NDC: 92041927387 ZOLOFT(SERTRALINE HCL) 100 MG TAB Dose: 100 MG ORAL DAILY Label Comments: MAY INCREASE FALL RISK Sertraline 100 MG Oral Tablet [Zoloft] (RxNorm): 278781 ZOLOFT (SERTRALINE HCL) NDC: 29265386742 DELTASONE(PredniSONE) 20 MG TAB Dose: 40 MG ORAL DAILY AT [facility] Label Comments: TAKE WITH FOOD OR MILK Prednisone 20 MG Oral Tablet (RxNorm): 682953 DELTASONE (PredniSONE) NDC: 35522032174 Discharge Medications - Medications that patient should continue to take. Review with physician Visit/Account #[id number] (March 30, 2016 1:02pm - March 31, 2016 1:21pm) Medication Route Sig/Schedule Precondition/Indication Comments/Instructions Codes MEVACOR(LOVASTATIN) 20 MG TAB Dose: 20 MG ORAL AT BEDTIME Lovastatin 20 MG Oral Tablet (RxNorm): 716211 MEVACOR (LOVASTATIN) NDC: 19287515141 PRINIVIL(LISINOPRIL) 20 MG TABLET Dose: 20 MG ORAL DAILY Lisinopril 20 MG Oral Tablet [Prinivil] (RxNorm): 792876 PRINIVIL (LISINOPRIL) NDC: 41056123181 FERROUS SULFate(FERROUS SULFATE) 325 MG TABLET Dose: 325 MG ORAL DAILY ferrous sulfate 325 MG Oral Tablet (RxNorm): 238782 FERROUS SULFate (FERROUS SULFATE) NDC: 97394719801 SYMBICORT 80-4.5(BUDESONIDE/FORMOTEROL) 6.9 GM INHALER Dose: 2 PUFF INHALED TWICE A DAY SYMBICORT 80-4.5 (BUDESONIDE/FORMOTEROL) NDC: 30661729495 Baclofen(BACLOFEN) 10 MG TAB Dose: 10 MG ORAL 3 TIMES A DAY Baclofen (BACLOFEN) NDC: 55312802982 Sertraline Hcl(SERTRALINE HCL) 100 MG TABLET Dose: 100 MG ORAL DAILY Sertraline 100 MG Oral Tablet (RxNorm): 107745 Sertraline Hcl (SERTRALINE HCL) NDC: 68242344938 Aspirin Chew(ASPIRIN) 81 MG TAB Dose: 81 MG ORAL DAILY Aspirin Chew (ASPIRIN) NDC: 50385369616 GLUCOPHAGE(MetFORMIN HCL) 500 MG TAB Dose: 500 MG ORAL WITH BREAKFAST & SUPPER Metformin hydrochloride 500 MG Oral Tablet [Glucophage] (RxNorm): 278264 GLUCOPHAGE (MetFORMIN HCL) NDC: 17831558835 DELTASONE(PredniSONE) 20 MG TAB Dose: 20 MG ORAL DAILY Prednisone 20 MG Oral Tablet (RxNorm): 161057 DELTASONE (PredniSONE) NDC: 12238996541 TYLENOL(ACETAMINOPHEN) 500 MG TAB Dose: 500-1000 MG ORAL EVERY 4 HOURS PAIN Rx Instructions: 500 - 1000 MG Acetaminophen 500 MG Oral Tablet [Mapap] (RxNorm): 878426 TYLENOL (ACETAMINOPHEN) NDC: 20136207247 History Of Encounters Encounters Visit/Account #[id number] (March 30, 2016 1:02pm - March 31, 2016 1:21pm) Account Status Physican Of Record Reason For Visit Visit Diagnosis Start Date/Time Stop Date/Time ER SAI HEDRICK DO CP, R/O ACUTE MYOCARDIAL INFARCTION,HYPONATREMIA R07.89: OTHER CHEST PAIN ICD10 Mar 30, 2016 1:02pm Mar 30, 2016 3:45pm Joaquín SO DO CP, R/O ACUTE MYOCARDIAL INFARCTION,HYPONATREMIA R07.89: OTHER CHEST PAIN ICD10 Mar 30, 2016 3:03pm Mar 31, 2016 1:21pm History of Procedures Procedure List No procedures recorded. Discharge Instructions Discharge Instructions Visit/Account #[id number] (March 30, 2016 1:02pm - March 31, 2016 1:21pm) DISCHARGE INSTRUCTIONS Physician Documentation PROVIDER INSTRUCTIONS Discharge Diet ADA 1999 Jorge Discharge Diet ADA 1999 REASON TO CALL PROVIDER Notify Physician if: temp above 100.4 worsening chest pain FOLLOW UP APPOINTMENTS Follow Up With Primary Care Physician *Call Friday to schedule the appointment* Social History Social History No Social History Data. Immunizations Immunizations Patient Unit Number: [id number] Immunizations No immunizations recorded.
--- OUTSIDE RECORDS SUMMARY | 2018-01-05 16:15 | XMS REPORT | Referral Summary ---
Author Author [facility] Organization [facility] Address Unknown Phone Unavailable Care Team Providers Care [employer] Operating [employer] Name Role Phone Devin Mays PCP Encounter VC Date(s): 09/09/16 - 09/09/16 [facility] [address] [place], [place] [address] Discharge Diagnosis: Chronic GERD Discharge Diagnosis: Vomiting Discharge Diagnosis: Gusman's esophagus Discharge Disposition: 01-Home or Self Care Attending Physician: Gayathri Mohan MD Admitting Physician: Gayathri Mohan MD Referring Physician: Serena Rosen APRN Vital Signs Most recent to 1 oldest [Reference Range]: Peripheral Pulse 72 bpm Rate [60-100 bpm] (09/09/16 1:13 PM) Blood Pressure 148/82 mmHg [90-140/60-90 mmHg] *HI* (09/09/16 1:13 PM) Problem List Condition Effective Dates Status [...] 2004 Assessment and Plan Extracted from: Title: Office Visit Note Author: Gayathri Mohan MD Date: 09/09/16 Assessment/Plan 1.Chronic GERD This patient has chronic history of GERDand was taking Prevacid for many years and then Prilosec for many years. She did not have esophagitis during the EGD done last year. Her heartburn seems controlled with PPIs. Reinforced dietary and lifestyle modifications and patient education material given. 2.Vomiting It seems to me like the patientis complaining of regurgitationrather than vomiting. She oftenthrows up right after eating and doesn't have nausea often. This could be due to her large hiatal hernia. She is also on meloxicambut has had worsening problems prior to starting that.Will evaluate with an EGD.Indication, risks andbenefitsof the procedure and sedation were explained to the patient in detail who verbalized understanding and wished to proceed with the procedure. Ordered: Request for Service - Misc. 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 Needs PPI long-term. We will take biopsies againduring the EGD. Ordered: Request for Service - Misc. Extracted from: Title: Ambulatory Patient Education Author: Gayathri Mohan MD Date: Emergency Medicine Hiatal Hernia A hiatal hernia [...] reduce GERD symptoms. Medicines. These may include: Pbly-tet-kxqyhlq antacids. Medicines that make your stomach empty [...] GERD worse. These may include: Fatty foods. [place] fruits. Other foods and drinks that contain [...] Released: 10/24/2004 Document Revised: 08/25/2015 Document Reviewed: [employer] Interactive Patient Education 2016 [employer] Family Medicine Gastroesophageal Reflux Disease, Adult Gastroesophageal reflux disease (GERD) happens when acid from your stomach flows up into the esophagus. When acid comes in contact with the esophagus, the acid causes soreness (inflammation) in the esophagus. Over time, GERD may create small holes (ulcers) in the lining of the esophagus. CAUSES Increased body weight. This puts pressure on the stomach, making acid rise from the stomach into the esophagus. Smoking. This increases acid production in the stomach. Drinking alcohol. This causes decreased pressure in the lower esophageal sphincter (valve or ring of muscle between the esophagus and stomach), allowing acid from the stomach into the esophagus. Late evening meals and a full stomach. This increases pressure and acid production in the stomach. A malformed lower esophageal sphincter. Sometimes, no cause is found. SYMPTOMS Burning pain in the lower part of the mid-chest behind the breastbone and in the mid-stomach area. This may occur twice a week or more often. Trouble swallowing. Sore throat. Dry cough. Asthma-like symptoms including chest tightness, shortness of breath, or wheezing. DIAGNOSIS Your caregiver may be able to diagnose GERD based on your symptoms. In some cases, X-rays and other tests may be done to check for complications or to check the condition of your stomach and esophagus. TREATMENT Your caregiver may recommend kaxn-qaw-eigljzo or prescription medicines to help decrease acid production. Ask your caregiver before starting or adding any new medicines. HOME CARE INSTRUCTIONS Change the factors that you can control. Ask your caregiver for guidance concerning weight loss, quitting smoking, and alcohol consumption. Avoid foods and drinks that make your symptoms worse, such as: Caffeine or alcoholic drinks. Chocolate. Peppermint or mint flavorings. Garlic and onions. Spicy foods. [place] fruits, such as oranges, jaclyn, or limes. Tomato-based foods such as sauce, chili, salsa, and pizza. Fried and fatty foods. Avoid lying down for the 3 hours prior to your bedtime or prior to taking a nap. Eat small, frequent meals instead of large meals. Wear loose-fitting clothing. Do not wear anything tight around your waist that causes pressure on your stomach. Raise the head of your bed 6 to 8 inches with wood blocks to help you sleep. Extra pillows will not help. Only take clig-uyr-kammdwl or prescription medicines for pain, discomfort, or fever as directed by your caregiver. Do not take aspirin, ibuprofen, or other nonsteroidal anti-inflammatory drugs (NSAIDs). SEEK IMMEDIATE MEDICAL CARE IF: You have pain in your arms, neck, jaw, teeth, or back. Your pain increases or changes in intensity or duration. You develop nausea, vomiting, or sweating (diaphoresis). You develop shortness of breath, or you faint. Your vomit is green, yellow, black, or looks like coffee grounds or blood. Your stool is red, bloody, or black. These symptoms could be signs of other problems, such as heart disease, gastric bleeding, or esophageal bleeding. MAKE SURE YOU: Understand these instructions. Will watch your condition. Will get help right away if you are not doing well or get worse. This information is not intended to replace advice given to you by your health care provider. Make sure you discuss any questions you have with your health care provider. Document Released: 05/14/2006 Document Revised: 08/25/2015 Document Reviewed: [employer] Interactive Patient Education 2016 [employer] Gusman's Esophagus Gusman's esophagus occurs when the [...] Released: 10/24/2004 Document Revised: 02/02/2013 Document Reviewed: [employer] Interactive Patient Education 2016 [employer] No follow up information was provided.
--- OUTSIDE RECORDS SUMMARY | 2018-01-05 16:16 | XMS REPORT | Continuity of Care Document ---
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 <td>542 k/cumm</td> <td>150-400</td> </tr> <tr> <th colspan="10">HEPATIC FUNCTION PANEL - 11:11</th> </tr> <tr> <td>BILI UNCONJUGATED</td> <td>0.1 mg/dL</td> <td>0.0-0.7</td> </tr> <tr> <td>AST/SGOT</td> <td>13 Units/L</td> <td>10-37</td> </tr> <tr> <td>ALT/SGPT</td> <td>18 Units/L</td> <td>< 66</td> </tr> <tr> <td>TOTAL PROTEIN</td > <td>8.0 gm/dL</td> <td>6.4-8.2</td> </tr> <tr > <td>ALBUMIN</td> <td>3.5 gm/dL</td> <td>3.4-5.0</td > </tr> <tr> <td>BILI TOTAL</td> <td>0.2 mg/dL</ td> <td>0.0-1.0</td> </tr> <tr> <td>ALKALINE PHOSPHATASE TOTAL</td> <td>120 IU/L</td> <td>45-117</td> </tr> <tr> <td>BILI CONJUGATED</td> <td>< 0.1 mg/ dL</td> <td>0.0-0.3</td> </tr> <tr> <th colspan= "10">LIPASE - 02/22/15 11:11</th> </tr> <tr> <td>LIPASE</ td> <td>78 Units/L</td> <td>73-393</td> </tr> < tr> <th colspan="10">GLUCOSE (POC) - 02/22/15 16:43</th> </tr> <tr> <td>GLUCOSE (POC)</td> <td>119 mg/dL</td> <td>70-99</td> </tr> <tr> <th colspan="10">HGB HCT - 02/22/15 16:48</th> </tr> <tr> <td>MEAN CELL VOLUME</td> <td>77.0 fl</td> <td>80.0-100.0</td> </tr> <tr > <td>HEMOGLOBIN</td> <td>8.2 gm/dL</td> <td>12.0- 16.0</td> </tr> <tr> <td>HEMATOCRIT</td> <td> 27.1 %</td> <td>37.0-47.0</td> </tr> <tr> < th colspan="10">PROTHROMBIN TIME WITH INR - 02/22/15 16:48</th> </tr> <tr> <td>INTERNATIONAL NORMAL RATIO</td> <td>1.0 </td> <td>0.9-1.1</td> </tr> <tr> <td>PROTHROMBIN TIME< /td> <td>11.3 sec</td> <td>9.3-12.2</td> </tr> < tr> <th colspan="10">TROPONIN I - 02/22/15 16:48</th> </tr> <tr> <td>TROPONIN I</td> <td>< 0.02 ng/mL</td> <td>< 0.07</td> </tr> <tr> <th colspan="10"> TROPONIN I - 02/22/15 22:40</th> </tr> <tr> <td>TROPONIN I</td> <td>< 0.02 ng/mL</td> <td>< 0.07</td> </tr > <tr> <th colspan="10">GLUCOSE (POC) - 02/22/15 22:43</th> </tr> <tr> <td>GLUCOSE (POC)</td> <td>108 mg/dL</td > <td>70-99</td> </tr> <tr> <th colspan="10"> RENAL FUNCTION PANEL - 02/23/15 03:06</th> </tr> <tr> <td >POTASSIUM</td> <td>4.0 mmol/L</td> <td>3.5-5.3</td> </ tr> <tr> <td>EST GFR (MDRD)</td> <td>> 60 mL/min</td > <td>> 59</td> </tr> <tr> <td>ANION GAP</td > <td>8 mmol/L</td> <td>5-15</td> </tr> <tr> <td>EST CrCl (CG)</td> <td>> 60 mL/min</td> <td>&gt ; 59</td> </tr> <tr> <td>GLUCOSE</td> <td>102 mg /dL</td> <td>70-99</td> </tr> <tr> <td>CALCIUM</ td> <td>8.2 mg/dL</td> <td>8.5-10.1</td> </tr> < tr> <td>BLOOD UREA NITROGEN</td> <td>15 mg/dL</td> < td>7-20</td> </tr> <tr> <td>CREATININE</td> <td> 0.8 mg/dL</td> <td>0.6-1.0</td> </tr> <tr> <td> SODIUM</td> <td>141 mmol/L</td> <td>135-148</td> </tr> <tr> <td>CHLORIDE</td> <td>107 mmol/L</td> < td>98-110</td> </tr> <tr> <td>CARBON DIOXIDE</td> <td>26 mmol/L</td> <td>21-32</td> </tr> <tr> <td>ALBUMIN</td> <td>3.0 gm/dL</td> <td>3.4-5.0</td> </ tr> <tr> <td>PHOSPHORUS</td> <td>3.1 mg/dL</td> <td>2.5-4.9</td> </tr> <tr> <th colspan="10">LIPID PANEL - 02/23/15 03:06</th> </tr> <tr> <td>CHOLESTEROL/ HDL RATIO</td> <td>3.7 </td> <td> < 5.0</td> </tr> <tr> <td>LDL CHOLESTEROL</td> <td>93 mg/dL</td> <td>< 100</td> </tr> <tr> <td>VLDL CHOLESTEROL</td > <td>27 mg/dL</td> <td>< 30</td> </tr> <tr> <td>TRIGLYCERIDES</td> <td>135 mg/dL</td> <td>< 150</td> </tr> <tr> <td>CHOLESTEROL</td> <td> 164 mg/dL</td> <td>< 200</td> </tr> <tr> <td> HDL CHOLESTEROL</td> <td>44 mg/dL</td> <td>> 39</td> </tr> <tr> <th colspan="10">MAGNESIUM - 02/23/15 03:06</th> </tr> <tr> <td>MAGNESIUM</td> <td>2.4 mg/dL</td> <td>1.8-2.4</td> </tr> <tr> <th colspan="10"> TROPONIN I - 02/23/15 03:06</th> </tr> <tr> <td>TROPONIN I</td> <td>< 0.02 ng/mL</td> <td>< 0.07</td> </tr > <tr> <th colspan="10">CBC W/DIFF - 02/23/15 03:08</th> </tr> <tr> <td>BASOPHIL #</td> <td>0.1 k/cumm</td> <td>0.0-0.2</td> </tr> <tr> <td>BASOPHIL %</td > <td>1 %</td> <td>0-1</td> </tr> <tr> <td>EOSINOPHIL #</td> <td>0.2 k/cumm</td> <td>0.1-0.5</td > </tr> <tr> <td>EOSINOPHIL %</td> <td>2 &# 37;</td> <td>2-4</td> </tr> <tr> <td> GRANULOCYTE #</td> <td>4.8 k/cumm</td> <td>2.0-9.0</td> </tr> <tr> <td>GRANULOCYTE %</td> <td>64 %</ td> <td>50-75</td> </tr> <tr> <td>LYMPHOCYTE #</ td> <td>1.5 k/cumm</td> <td>1.0-4.0</td> </tr> < tr> <td>LYMPHOCYTE %</td> <td>21 %</td> <td> 20-30</td> </tr> <tr> <td>MEAN CELL HGB</td> <td >23.3 pg</td> <td>27.0-33.0</td> </tr> <tr> <td> MEAN CELL HGB CONCENTRATION</td> <td>29.9 g/dL</td> <td>32.0- 37.0</td> </tr> <tr> <td>MEAN CELL VOLUME</td> < td>77.8 fl</td> <td>80.0-100.0</td> </tr> <tr> < td>MONOCYTE #</td> <td>0.9 k/cumm</td> <td>0.1-1.0</td> </tr> <tr> <td>MONOCYTE %</td> <td>12 %</td> <td>4-6</td> </tr> <tr> <td>RED BLOOD CELL</td > <td>3.61 m/cumm</td> <td>4.00-6.00</td> </tr> <tr> <td>RED CELL DISTRIBUTION WIDTH</td> <td>15.2 %</td> <td>11.0-15.6</td> </tr> <tr> <td>WHITE BLOOD CELL</td> <td>7.4 k/cumm</td> <td>5.0-10.0</td> </tr> <tr> <td>HEMOGLOBIN</td> <td>8.4 gm/dL</td> < td>12.0-16.0</td> </tr> <tr> <td>HEMATOCRIT</td> <td>28.1 %</td> <td>37.0-47.0</td> </tr> <tr> <td>PLATELET COUNT</td> <td>437 k/cumm</td> <td>150-400</ td> </tr> <tr> <th colspan="10">HEMOGLOBIN A1C - 03:08</th> </tr> <tr> <td>HEMOGLOBIN A1C</td> <td>6.7 %</td> <td>< 5.7</td> </tr> <tr> <th colspan="10">GLUCOSE (POC) - 02/23/15 03:14</th> </tr> <tr > <td>GLUCOSE (POC)</td> <td>103 mg/dL</td> <td>70-99 </td> </tr> <tr> <th colspan="10">GLUCOSE (POC) - 11:37</th> </tr> <tr> <td>GLUCOSE (POC)</td> <td>92 mg/dL</td> <td>70-99</td> </tr> <tr> <th colspan="10">GLUCOSE (POC) - 02/23/15 16:50</th> </tr> <tr> <td>GLUCOSE (POC)</td> <td>110 mg/dL</td> <td>70-99</td> </tr> <tr> <th colspan="10">GLUCOSE (POC) - 02/23/15 20: 44</th> </tr> <tr> <td>GLUCOSE (POC)</td> <td> 193 mg/dL</td> <td>70-99</td> </tr> <tr> <th colspan="10">GLUCOSE (POC) - 02/24/15 05:13</th> </tr> <tr> <td>GLUCOSE (POC)</td> <td>125 mg/dL</td> <td>70-99</td> </tr> <tr> <th colspan="10">CBC W/DIFF - 02/24/15 05:37</ th> </tr> <tr> <td>BASOPHIL #</td> <td>0.1 k/ cumm</td> <td>0.0-0.2</td> </tr> <tr> <td> BASOPHIL %</td> <td>1 %</td> <td>0-1</td> </tr > <tr> <td>EOSINOPHIL #</td> <td>0.2 k/cumm</td> <td>0.1-0.5</td> </tr> <tr> <td>EOSINOPHIL %</td > <td>3 %</td> <td>2-4</td> </tr> <tr> <td>GRANULOCYTE #</td> <td>3.2 k/cumm</td> <td>2.0-9.0</ td> </tr> <tr> <td>GRANULOCYTE %</td> <td> 61 %</td> <td>50-75</td> </tr> <tr> <td> LYMPHOCYTE #</td> <td>1.3 k/cumm</td> <td>1.0-4.0</td> </tr> <tr> <td>LYMPHOCYTE %</td> <td>25 %</td> <td>20-30</td> </tr> <tr> <td>MEAN CELL HGB</td > <td>22.9 pg</td> <td>27.0-33.0</td> </tr> <tr > <td>MEAN CELL HGB CONCENTRATION</td> <td>29.6 g/dL</td> <td>32.0-37.0</td> </tr> <tr> <td>MEAN CELL VOLUME< /td> <td>77.4 fl</td> <td>80.0-100.0</td> </tr> <tr> <td>MONOCYTE #</td> <td>0.5 k/cumm</td> <td>0.1- 1.0</td> </tr> <tr> <td>MONOCYTE %</td> <td> 10 %</td> <td>4-6</td> </tr> <tr> <td>RED BLOOD CELL</td> <td>3.54 m/cumm</td> <td>4.00-6.00</td> </tr> <tr> <td>RED CELL DISTRIBUTION WIDTH</td> <td> 14.7 %</td> <td>11.0-15.6</td> </tr> <tr> < td>WHITE BLOOD CELL</td> <td>5.3 k/cumm</td> <td>5.0-10.0</td > </tr> <tr> <td>HEMOGLOBIN</td> <td>8.1 gm/dL</ td> <td>12.0-16.0</td> </tr> <tr> <td>HEMATOCRIT </td> <td>27.4 %</td> <td>37.0-47.0</td> </tr> <tr> <td>PLATELET COUNT</td> <td>389 k/cumm</td> <td>150-400</td> </tr> <tr> <th colspan="10">VITAMIN B12 - 02/24/15 05:37</th> </tr> <tr> <td>VITAMIN B12</td> <td>593 pg/mL</td> <td>211-911</td> </tr> <tr> <th colspan="10">RENAL FUNCTION PANEL - 02/24/15 05:37</th> </tr> <tr> <td>POTASSIUM</td> <td>4.2 mmol/L</td> < td>3.5-5.3</td> </tr> <tr> <td>EST GFR (MDRD)</td> <td>> 60 mL/min</td> <td>> 59</td> </tr> <tr> <td>ANION GAP</td> <td>7 mmol/L</td> <td>5-15</td> </tr> <tr> <td>EST CrCl (CG)</td> <td>> 60 mL/ min</td> <td>> 59</td> </tr> <tr> <td>GLUCOSE </td> <td>110 mg/dL</td> <td>70-99</td> </tr> < tr> <td>CALCIUM</td> <td>8.6 mg/dL</td> <td>8.5-10.1< /td> </tr> <tr> <td>BLOOD UREA NITROGEN</td> <td >12 mg/dL</td> <td>7-20</td> </tr> <tr> <td> CREATININE</td> <td>0.9 mg/dL</td> <td>0.6-1.0</td> </ tr> <tr> <td>SODIUM</td> <td>139 mmol/L</td> < td>135-148</td> </tr> <tr> <td>CHLORIDE</td> <td >104 mmol/L</td> <td>98-110</td> </tr> <tr> <td> CARBON DIOXIDE</td> <td>28 mmol/L</td> <td>21-32</td> < /tr> <tr> <td>ALBUMIN</td> <td>3.1 gm/dL</td> <td>3.4-5.0</td> </tr> <tr> <td>PHOSPHORUS</td> <td>2.9 mg/dL</td> <td>2.5-4.9</td> </tr> <tr> < th colspan="10">MAGNESIUM - 02/24/15 05:37</th> </tr> <tr> <td>MAGNESIUM</td> <td>2.7 mg/dL</td> <td>1.8-2.4</td> </tr> <tr> <th colspan="10">FERRITIN - 02/24/15 05:37</th> </tr> <tr> <td>FERRITIN</td> <td>6 ng/mL</td> <td>8-252</td> </tr> <tr> <th colspan="10"> THYROID STIM HORMONE (TSH) - 02/24/15 05:37</th> </tr> <tr> <td>THYROID STIM HORMONE (TSH)</td> <td>2.55 uIU/mL</td> < td>0.34-4.82</td> </tr> <tr> < colspan="10">IRON W/ BINDING CAPACITY - 02/24/15 05:37</th> </tr> <tr> <td> IRON SATURATION</td> <td>2 % SAT</td> <td>11-46</td> </tr> <tr> <td>IRON BINDING CAPACITY, TOTAL</td> <td >467 mcg/dL</td> <td>250-450</td> </tr> <tr> <td >IRON</td> <td>10 mcg/dL</td> <td>35-150</td> </tr> <tr> <th colspan="10">GLUCOSE (POC) - 02/24/15 10:25</th> < /tr> <tr> <td>GLUCOSE (POC)</td> <td>195 mg/dL</td> <td>70-99</td> </tr> <tr> <th colspan="10"> GLUCOSE (POC) - 02/24/15 16:04</th> </tr> <tr> <td> GLUCOSE (POC)</td> <td>171 mg/dL</td> <td>70-99</td> </ tr> <tr> <th colspan="10">D-DIMER QUANT - 10/11/15 12:34</th> </tr> <tr> <td>D-DIMER QUANT</td> <td>210 ng/mL</ td> <td>0-229</td> </tr> <tr> <th colspan="10"> CHEM/HEM PROFILE-BEDSIDE - 10/11/15 12:46</th> </tr> <tr> <td>POTASSIUM</td> <td>3.7 mmol/L</td> <td>3.5-5.3</td> </tr> <tr> <td>METHOD</td> <td>Bedside </td> <td /> </tr> <tr> <td>ANION GAP</td> <td>20 mmol/L</td> <td>10-20</td> </tr> <tr> <td>METHOD </td> <td>Bedside </td> <td /> </tr> <tr> <td>GLUCOSE</td> <td>112 mg/dL</td> <td>70-99</td> </tr> <tr> <td>BLOOD UREA NITROGEN</td> <td>18 mg/dL</ td> <td>7-20</td> </tr> <tr> <td>CREATININE</td > <td>0.9 mg/dL</td> <td>0.6-1.0</td> </tr> <tr > <td>HEMOGLOBIN</td> <td>11.2 gm/dL</td> <td>12.0- 16.0</td> </tr> <tr> <td>HEMATOCRIT</td> <td> 33.0 %</td> <td>37.0-47.0</td> </tr> <tr> < td>SODIUM</td> <td>136 mmol/L</td> <td>135-148</td> </ tr> <tr> <td>CHLORIDE</td> <td>98 mmol/L</td> <td>98-110</td> </tr> <tr> <td>CARBON DIOXIDE</td> <td>22 mmol/L</td> <td>21-32</td> </tr> <tr> <td>CALCIUM IONIZED</td> <td>5.0 mg/dL</td> <td>4.5-5.3</td > </tr> <tr> <th colspan="10">CHEM/HEM PROFILE-BEDSIDE - 12/18/15 11:20</th> </tr> <tr> <td>POTASSIUM</td> <td>4.1 mmol/L</td> <td>3.5-5.3</td> </tr> <tr> <td>METHOD</td> <td>Bedside </td> <td /> </tr> <tr> <td>ANION GAP</td> <td>18 mmol/L</td> <td>10 -20</td> </tr> <tr> <td>METHOD</td> <td>Bedside </td> <td /> </tr> <tr> <td>GLUCOSE</td> <td>121 mg/dL</td> <td>70-99</td> </tr> <tr> <td>BLOOD UREA NITROGEN</td> <td>21 mg/dL</td> <td>7-20</td> </tr> <tr> <td>CREATININE</td> <td>1.1 mg/dL</td > <td>0.6-1.0</td> </tr> <tr> <td>HEMOGLOBIN</td > <td>9.2 gm/dL</td> <td>12.0-16.0</td> </tr> < tr> <td>HEMATOCRIT</td> <td>27.0 %</td> <td>37.0- 47.0</td> </tr> <tr> <td>SODIUM</td> <td>137 mmol/L</td> <td>135-148</td> </tr> <tr> <td> CHLORIDE</td> <td>103 mmol/L</td> <td>98-110</td> </tr > <tr> <td>CARBON DIOXIDE</td> <td>21 mmol/L</td> <td>21-32</td> </tr> <tr> <td>CALCIUM IONIZED</td> <td>5.2 mg/dL</td> <td>4.5-5.3</td> </tr> <tr> <th colspan="10">TROPONIN I BEDSIDE - 12/18/15 11:26</th> </tr> <tr> <td>METHOD</td> <td>Bedside </td> <td / > </tr> <tr> <td>TROPONIN I</td> <td>< 0.04 ng/mL</td> <td>< 0.11</td> </tr> <tr> <th colspan="10">URINALYSIS, ROUTINE - 12/18/15 11:28</th> </tr> <tr> <td>UA LEUKOCYTE ESTERASE DIPSTICK</td> <td>NEGATIVE </td> <td>NEGATIVE</td> </tr> <tr> <td>UA NITRITE DIPSTICK</td> <td>NEGATIVE </td> <td>NEGATIVE</td> </tr > <tr> <td>UA PROTEIN DIPSTICK</td> <td>NEGATIVE </td> <td>NEGATIVE</td> </tr> <tr> <td>UA GLUCOSE DIPSTICK</td> <td>NEGATIVE </td> <td>NEGATIVE</td> </tr > <tr> <td>UA KETONE DIPSTICK</td> <td>NEGATIVE </td> <td>NEGATIVE</td> </tr> <tr> <td>UA UROBILINOGEN DIPSTICK</td> <td>NORMAL </td> <td>NORMAL</td> </tr> <tr> <td>UA BILIRUBIN DIPSTICK</td> <td> NEGATIVE </td> <td>NEGATIVE</td> </tr> <tr> <td> UA BLOOD DIPSTICK</td> <td>NEGATIVE </td> <td>NEGATIVE</td> </tr> <tr> <td>UA SPECIFIC GRAVITY</td> <td> 1.015 </td> <td>1.015-1.025</td> </tr> <tr> <td> UR PH</td> <td>6.5 </td> <td>5.0-7.0</td> </tr> <tr> < colspan="10">CBC W/DIFF - 12/18/15 11:40</th> </tr> <tr> <td>BASOPHIL #</td> <td>0.1 k/cumm</td> <td >0.0-0.2</td> </tr> <tr> <td>BASOPHIL %</td> <td>2 %</td> <td>0-1</td> </tr> <tr> <td> COMMENT</td> <td>REVIEWED </td> <td /> </tr> <tr > <td>EOSINOPHIL #</td> <td>0.2 k/cumm</td> <td>0.1- 0.5</td> </tr> <tr> <td>EOSINOPHIL %</td> < td>3 %</td> <td>2-4</td> </tr> <tr> <td> GRANULOCYTE #</td> <td>2.6 k/cumm</td> <td>2.0-9.0</td> </tr> <tr> <td>GRANULOCYTE %</td> <td>50 %</ td> <td>50-75</td> </tr> <tr> <td>LYMPHOCYTE #</ td> <td>1.6 k/cumm</td> <td>1.0-4.0</td> </tr> < tr> <td>LYMPHOCYTE %</td> <td>31 %</td> <td> 20-30</td> </tr> <tr> <td>MEAN CELL HGB</td> <td >22.8 pg</td> <td>27.0-33.0</td> </tr> <tr> <td> MEAN CELL HGB CONCENTRATION</td> <td>30.8 g/dL</td> <td>32.0- 37.0</td> </tr> <tr> <td>MEAN CELL VOLUME</td> < td>74.0 fl</td> <td>80.0-100.0</td> </tr> <tr> < td>MONOCYTE #</td> <td>0.8 k/cumm</td> <td>0.1-1.0</td> </tr> <tr> <td>MONOCYTE %</td> <td>15 %</td> <td>4-6</td> </tr> <tr> <td>RED BLOOD CELL</td > <td>3.69 m/cumm</td> <td>4.00-6.00</td> </tr> <tr> <td>RED CELL DISTRIBUTION WIDTH</td> <td>18.6 %</td> <td>11.0-15.6</td> </tr> <tr> <td>WHITE BLOOD CELL</td> <td>5.2 k/cumm</td> <td>5.0-10.0</td> </tr> <tr> <td>HEMOGLOBIN</td> <td>8.4 gm/dL</td> < td>12.0-16.0</td> </tr> <tr> <td>HEMATOCRIT</td> <td>27.3 %</td> <td>37.0-47.0</td> </tr> <tr> <td>PLATELET COUNT</td> <td>327 k/cumm</td> <td>150-400</ td> </tr> <tr> <th colspan="10">TROPONIN I BEDSIDE - 10/03 15:03</th> </tr> <tr> <td>METHOD</td> <td> Bedside </td> <td /> </tr> <tr> <td>TROPONIN I</ td> <td>< 0.04 ng/mL</td> <td>< 0.11</td> </tr> <tr> <th colspan="10">URINALYSIS, ROUTINE - 01/30/16 10:22</th> </tr> <tr> <td>UA LEUKOCYTE ESTERASE DIPSTICK</td> <td>NEGATIVE </td> <td>NEGATIVE</td> </tr> <tr> <td>UA NITRITE DIPSTICK</td> <td>NEGATIVE </td> <td> NEGATIVE</td> </tr> <tr> <td>UA PROTEIN DIPSTICK</td> <td>NEGATIVE </td> <td>NEGATIVE</td> </tr> <tr> <td>UA GLUCOSE DIPSTICK</td> <td>NEGATIVE </td> <td> NEGATIVE</td> </tr> <tr> <td>UA KETONE DIPSTICK</td> <td>NEGATIVE </td> <td>NEGATIVE</td> </tr> <tr> <td>UA UROBILINOGEN DIPSTICK</td> <td>NORMAL </td> <td> NORMAL</td> </tr> <tr> <td>UA BILIRUBIN DIPSTICK</td> <td>NEGATIVE </td> <td>NEGATIVE</td> </tr> <tr> <td>UA BLOOD DIPSTICK</td> <td>TRACE </td> <td> NEGATIVE</td> </tr> <tr> <td>UA SPECIFIC GRAVITY</td> <td>1.015 </td> <td>1.015-1.025</td> </tr> <tr> <td>UR PH</td> <td>6.0 </td> <td>5.0-7.0</td> < /tr> <tr> < colspan="10">UA MICROSCOPIC - 01/30/16 10:22</th> </tr> <tr> <td>UA RBC</td> <td>0-3 rbc/hpf</td > <td>0 - 3</td> </tr> <tr> <td>UA VOLUME FOR EXAM</td> <td>12.0 mL</td> <td>(12mL STD)</td> </tr> <tr> <td>UA WBC</td> <td>0-1 wbc/hpf</td> <td> 0 - 5</td> </tr> <tr> < colspan="10">CHEM/HEM PROFILE- BEDSIDE - 01/30/16 10:34</th> </tr> <tr> <td>POTASSIUM</ td> <td>4.1 mmol/L</td> <td>3.5-5.3</td> </tr> < tr> <td>METHOD</td> <td>Bedside </td> <td /> < /tr> <tr> <td>ANION GAP</td> <td>17 mmol/L</td> <td>10-20</td> </tr> <tr> <td>METHOD</td> <td >Bedside </td> <td /> </tr> <tr> <td>GLUCOSE</td > <td>114 mg/dL</td> <td>70-99</td> </tr> <tr> <td>BLOOD UREA NITROGEN</td> <td>15 mg/dL</td> <td>7- 20</td> </tr> <tr> <td>CREATININE</td> <td>0.9 mg/dL</td> <td>0.6-1.0</td> </tr> <tr> <td> HEMOGLOBIN</td> <td>11.9 gm/dL</td> <td>12.0-16.0</td> </tr> <tr> <td>HEMATOCRIT</td> <td>35.0 %</td> <td>37.0-47.0</td> </tr> <tr> <td>SODIUM</td> <td>132 mmol/L</td> <td>135-148</td> </tr> <tr> <td>CHLORIDE</td> <td>97 mmol/L</td> <td>98-110</td> </tr> <tr> <td>CARBON DIOXIDE</td> <td>22 mmol/L</ td> <td>21-32</td> </tr> <tr> <td>CALCIUM IONIZED</td> <td>4.7 mg/dL</td> <td>4.5-5.3</td> </tr> <tr> <th colspan="10">[facility] - 04/27/16 00:00</th> </ tr> <tr> <td>Microbiology</td> <td> </td> <td /> </tr> <tr> <th colspan="10">URINALYSIS, ROUTINE - 06/02 18:15</th> </tr> <tr> <td>UA LEUKOCYTE ESTERASE DIPSTICK</td> <td>TRACE </td> <td>NEGATIVE</td> </tr> <tr> <td>UA NITRITE DIPSTICK</td> <td>NEGATIVE </td> <td>NEGATIVE</td> </tr> <tr> <td>UA PROTEIN DIPSTICK</td> <td>NEGATIVE </td> <td>NEGATIVE</td> </tr > <tr> <td>UA GLUCOSE DIPSTICK</td> <td>NEGATIVE </td> <td>NEGATIVE</td> </tr> <tr> <td>UA KETONE DIPSTICK</td> <td>NEGATIVE </td> <td>NEGATIVE</td> </tr > <tr> <td>UA UROBILINOGEN DIPSTICK</td> <td>NORMAL </ td> <td>NORMAL</td> </tr> <tr> <td>UA BILIRUBIN DIPSTICK</td> <td>NEGATIVE </td> <td>NEGATIVE</td> </tr > <tr> <td>UA BLOOD DIPSTICK</td> <td>TRACE </td> <td>NEGATIVE</td> </tr> <tr> <td>UA SPECIFIC GRAVITY </td> <td>1.025 </td> <td>1.015-1.025</td> </tr> <tr> <td>UR PH</td> <td>6.0 </td> <td>5.0-7.0</td> </tr> <tr> <th colspan="10">UA MICROSCOPIC - 04/27/16 18 :15</th> </tr> <tr> <td>UA MUCUS</td> <td>1+ </ td> <td>NEG TO 1+</td> </tr> <tr> <td>UA RBC</td > <td>0-3 rbc/hpf</td> <td>0 - 3</td> </tr> <tr > <td>UA VOLUME FOR EXAM</td> <td>12.0 mL</td> <td>( 12mL STD)</td> </tr> <tr> <td>UA WBC</td> <td>2- 5 wbc/hpf</td> <td>0 - 5</td> </tr> <tr> <th colspan="10">CHLAMYDIA DNA BY PCR - 04/27/16 18:15</th> </tr> <tr > <td>Microbiology</td> <td> </td> <td /> </tr > <tr> <th colspan="10">UR TEST - 04/27/16 18:18</th> </tr> <tr> <td>UR TEST</td> <td> NEGATIVE </td> <td>NEGATIVE</td> </tr> <tr> <th colspan="10">GRAM STAIN - CHLAMYDIA DNA BY PCR - 04/27/16 18:22</th> </tr > <tr> <td>Microbiology</td> <td> </td> <td / > </tr> <tr> <th colspan="10">CBC W/DIFF - 05/27/16 22:46 </th> </tr> <tr> <td>BASOPHIL #</td> <td>0.1 k/ cumm</td> <td>0.0-0.2</td> </tr> <tr> <td> BASOPHIL %</td> <td>1 %</td> <td>0-1</td> </tr > <tr> <td>EOSINOPHIL #</td> <td>0.2 k/cumm</td> <td>0.1-0.5</td> </tr> <tr> <td>EOSINOPHIL %</td > <td>3 %</td> <td>2-4</td> </tr> <tr> <td>GRANULOCYTE #</td> <td>2.9 k/cumm</td> <td>2.0-9.0</ td> </tr> <tr> <td>GRANULOCYTE %</td> <td> 52 %</td> <td>50-75</td> </tr> <tr> <td> LYMPHOCYTE #</td> <td>1.7 k/cumm</td> <td>1.0-4.0</td> </tr> <tr> <td>LYMPHOCYTE %</td> <td>31 %</td> <td>20-30</td> </tr> <tr> <td>MEAN CELL HGB</td > <td>23.4 pg</td> <td>27.0-33.0</td> </tr> <tr > <td>MEAN CELL HGB CONCENTRATION</td> <td>30.6 g/dL</td> <td>32.0-37.0</td> </tr> <tr> <td>MEAN CELL VOLUME< /td> <td>76.3 fl</td> <td>80.0-100.0</td> </tr> <tr> <td>MONOCYTE #</td> <td>0.7 k/cumm</td> <td>0.1- 1.0</td> </tr> <tr> <td>MONOCYTE %</td> <td> 12 %</td> <td>4-6</td> </tr> <tr> <td>RED BLOOD CELL</td> <td>3.89 m/cumm</td> <td>4.00-6.00</td> </tr> <tr> <td>RED CELL DISTRIBUTION WIDTH</td> <td> 15.7 %</td> <td>11.0-15.6</td> </tr> <tr> < td>WHITE BLOOD CELL</td> <td>5.6 k/cumm</td> <td>5.0-10.0</td > </tr> <tr> <td>HEMOGLOBIN</td> <td>9.1 gm/dL</ td> <td>12.0-16.0</td> </tr> <tr> <td>HEMATOCRIT </td> <td>29.7 %</td> <td>37.0-47.0</td> </tr> <tr> <td>PLATELET COUNT</td> <td>389 k/cumm</td> <td>150-400</td> </tr> <tr> <th colspan="10">CHEM/HEM PROFILE-BEDSIDE - 05/27/16 22:47</th> </tr> <tr> <td> POTASSIUM</td> <td>4.0 mmol/L</td> <td>3.5-5.3</td> </ tr> <tr> <td>METHOD</td> <td>Bedside </td> < td /> </tr> <tr> <td>ANION GAP</td> <td>15 mmol/ L</td> <td>10-20</td> </tr> <tr> <td>METHOD</td > <td>Bedside </td> <td /> </tr> <tr> < td>GLUCOSE</td> <td>158 mg/dL</td> <td>70-99</td> </tr > <tr> <td>BLOOD UREA NITROGEN</td> <td>27 mg/dL</td> <td>7-20</td> </tr> <tr> <td>CREATININE</td> <td>1.4 mg/dL</td> <td>0.6-1.0</td> </tr> <tr> <td>HEMOGLOBIN</td> <td>10.2 gm/dL</td> <td>12.0-16.0</ td> </tr> <tr> <td>HEMATOCRIT</td> <td>30.0 &#37 ;</td> <td>37.0-47.0</td> </tr> <tr> <td>SODIUM< /td> <td>131 mmol/L</td> <td>135-148</td> </tr> <tr> <td>CHLORIDE</td> <td>97 mmol/L</td> <td>98-110< /td> </tr> <tr> <td>CARBON DIOXIDE</td> <td>24 mmol/L</td> <td>21-32</td> </tr> <tr> <td> CALCIUM IONIZED</td> <td>4.8 mg/dL</td> <td>4.5-5.3</td> </tr> <tr> <th colspan="10">TROPONIN I BEDSIDE - 05/27/16 22: 57</th> </tr> <tr> <td>METHOD</td> <td>Bedside < /td> <td /> </tr> <tr> <td>TROPONIN I</td> <td>< 0.04 ng/mL</td> <td>< 0.11</td> </tr> < tr> <th colspan="10">D-DIMER QUANT - 05/27/16 23:10</th> </tr> <tr> <td>D-DIMER QUANT</td> <td>664 ng/mL</td> <td>0-229</td> </tr> <tr> <th colspan="10">CHEM/HEM PROFILE-BEDSIDE - 05/30/16 22:32</th> </tr> <tr> <td> POTASSIUM</td> <td>4.2 mmol/L</td> <td>3.5-5.3</td> </ tr> <tr> <td>METHOD</td> <td>Bedside </td> < td /> </tr> <tr> <td>ANION GAP</td> <td>15 mmol/ L</td> <td>10-20</td> </tr> <tr> <td>METHOD</td > <td>Bedside </td> <td /> </tr> <tr> < td>GLUCOSE</td> <td>122 mg/dL</td> <td>70-99</td> </tr > <tr> <td>BLOOD UREA NITROGEN</td> <td>15 mg/dL</td> <td>7-20</td> </tr> <tr> <td>CREATININE</td> <td>0.9 mg/dL</td> <td>0.6-1.0</td> </tr> <tr> <td>HEMOGLOBIN</td> <td>9.2 gm/dL</td> <td>12.0-16.0</ td> </tr> <tr> <td>HEMATOCRIT</td> <td>27.0 &#37 ;</td> <td>37.0-47.0</td> </tr> <tr> <td>SODIUM< /td> <td>135 mmol/L</td> <td>135-148</td> </tr> <tr> <td>CHLORIDE</td> <td>100 mmol/L</td> <td>98-110 </td> </tr> <tr> <td>CARBON DIOXIDE</td> <td>24 mmol/L</td> <td>21-32</td> </tr> <tr> <td> CALCIUM IONIZED</td> <td>4.8 mg/dL</td> <td>4.5-5.3</td> </tr> <tr> <th colspan="10">TROPONIN I BEDSIDE - 05/30/16 22: 34</th> </tr> <tr> <td>METHOD</td> <td>Bedside < /td> <td /> </tr> <tr> <td>TROPONIN I</td> <td>< 0.04 ng/mL</td> <td>< 0.11</td> </tr> < tr> <th colspan="10">URINALYSIS, ROUTINE - 11/22/16 22:36</th> < /tr> <tr> <td>UA LEUKOCYTE ESTERASE DIPSTICK</td> <td> NEGATIVE </td> <td>NEGATIVE</td> </tr> <tr> <td> UA NITRITE DIPSTICK</td> <td>NEGATIVE </td> <td>NEGATIVE</td> </tr> <tr> <td>UA PROTEIN DIPSTICK</td> <td> NEGATIVE </td> <td>NEGATIVE</td> </tr> <tr> <td> UA GLUCOSE DIPSTICK</td> <td>NEGATIVE </td> <td>NEGATIVE</td> </tr> <tr> <td>UA KETONE DIPSTICK</td> <td> NEGATIVE </td> <td>NEGATIVE</td> </tr> <tr> <td> UA UROBILINOGEN DIPSTICK</td> <td>NORMAL </td> <td>NORMAL</td > </tr> <tr> <td>UA BILIRUBIN DIPSTICK</td> <td> NEGATIVE </td> <td>NEGATIVE</td> </tr> <tr> <td> UA BLOOD DIPSTICK</td> <td>NEGATIVE </td> <td>NEGATIVE</td> </tr> <tr> <td>UA SPECIFIC GRAVITY</td> <td> 1.010 </td> <td>1.015-1.025</td> </tr> <tr> <td> UR PH</td> <td>5.5 </td> <td>5.0-7.0</td> </tr> <tr> < colspan="10">CHEM/HEM PROFILE-BEDSIDE - 11/26/16 05:27</th> </tr> <tr> <td>POTASSIUM</td> <td>3.5 mmol/L</td > <td>3.5-5.3</td> </tr> <tr> <td>METHOD</td> <td>Bedside </td> <td /> </tr> <tr> <td> ANION GAP</td> <td>19 mmol/L</td> <td>10-20</td> </tr> <tr> <td>METHOD</td> <td>Bedside </td> <td / > </tr> <tr> <td>GLUCOSE</td> <td>173 mg/dL</td > <td>70-99</td> </tr> <tr> <td>BLOOD UREA NITROGEN</td> <td>26 mg/dL</td> <td>7-20</td> </tr> <tr> <td>CREATININE</td> <td>1.0 mg/dL</td> <td> 0.6-1.0</td> </tr> <tr> <td>HEMOGLOBIN</td> <td> 11.9 gm/dL</td> <td>12.0-16.0</td> </tr> <tr> < td>HEMATOCRIT</td> <td>35.0 %</td> <td>37.0-47.0</td> </tr> <tr> <td>SODIUM</td> <td>136 mmol/L</td> <td>135-148</td> </tr> <tr> <td>CHLORIDE</td> <td>103 mmol/L</td> <td>98-110</td> </tr> <tr> <td>CARBON DIOXIDE</td> <td>19 mmol/L</td> <td>21-32</td > </tr> <tr> <td>CALCIUM IONIZED</td> <td>4.7 mg /dL</td> <td>4.5-5.3</td> </tr> <tr> <th colspan ="10">TROPONIN I BEDSIDE - 11/26/16 05:29</th> </tr> <tr> <td>METHOD</td> <td>Bedside </td> <td /> </tr> <tr> <td>TROPONIN I</td> <td>< 0.04 ng/mL</td> < td>< 0.11</td> </tr> <tr> <th colspan="10">HEPATIC FUNCTION PANEL - 11/26/16 05:30</th> </tr> <tr> <td>BILI UNCONJUGATED</td> <td>0.2 mg/dL</td> <td>0.0-0.7</td> < /tr> <tr> <td>AST/SGOT</td> <td>13 Units/L</td> <td>10-37</td> </tr> <tr> <td>ALT/SGPT</td> < td>16 Units/L</td> <td>< 66</td> </tr> <tr> < td>TOTAL PROTEIN</td> <td>8.6 gm/dL</td> <td>6.4-8.2</td> </tr> <tr> <td>ALBUMIN</td> <td>3.2 gm/dL</td> <td>3.4-5.0</td> </tr> <tr> <td>BILI TOTAL</td> <td>0.3 mg/dL</td> <td>0.0-1.0</td> </tr> <tr> <td>ALKALINE PHOSPHATASE TOTAL</td> <td>114 IU/L</td> < td>45-117</td> </tr> <tr> <td>BILI CONJUGATED</td> <td>< 0.1 mg/dL</td> <td>0.0-0.3</td> </tr> <tr> < colspan="10">LIPASE - 11/26/16 05:30</th> </tr> <tr> <td>LIPASE</td> <td>69 Units/L</td> <td>73-393</td> </tr> <tr> <th colspan="10">D-DIMER QUANT - 11/26/16 05: 30</th> </tr> <tr> <td>D-DIMER QUANT</td> <td> 456 ng/mL</td> <td>0-229</td> </tr> <tr> <th colspan="10">CBC W/DIFF - 11/26/16 05:30</th> </tr> <tr> <td>GRANULOCYTE #</td> <td>10.3 k/cumm</td> <td>2.0-9.0</td> </tr> <tr> <td>GRANULOCYTE %</td> <td>86 &# 37;</td> <td>50-75</td> </tr> <tr> <td> LYMPHOCYTE #</td> <td>0.7 k/cumm</td> <td>1.0-4.0</td> </tr> <tr> <td>LYMPHOCYTE %</td> <td>6 %</td> <td>20-30</td> </tr> <tr> <td>MEAN CELL HGB</td > <td>21.8 pg</td> <td>27.0-33.0</td> </tr> <tr > <td>MEAN CELL HGB CONCENTRATION</td> <td>31.6 g/dL</td> <td>32.0-37.0</td> </tr> <tr> <td>MEAN CELL VOLUME< /td> <td>68.9 fl</td> <td>80.0-100.0</td> </tr> <tr> <td>MONOCYTE #</td> <td>0.9 k/cumm</td> <td>0.1- 1.0</td> </tr> <tr> <td>MONOCYTE %</td> <td> 8 %</td> <td>4-6</td> </tr> <tr> <td>RED BLOOD CELL</td> <td>4.54 m/cumm</td> <td>4.00-6.00</td> </tr> <tr> <td>RED CELL DISTRIBUTION WIDTH</td> <td> 21.1 %</td> <td>11.0-15.6</td> </tr> <tr> < td>WHITE BLOOD CELL</td> <td>12.0 k/cumm</td> <td>5.0-10.0</td > </tr> <tr> <td>HEMOGLOBIN</td> <td>9.9 gm/dL</ td> <td>12.0-16.0</td> </tr> <tr> <td>HEMATOCRIT </td> <td>31.3 %</td> <td>37.0-47.0</td> </tr> <tr> <td>PLATELET COUNT</td> <td>331 k/cumm</td> <td>150-400</td> </tr> <tr> < colspan="10">MORPHOLOGY - 04/11/17 05:30</th> </tr> <tr> <td>RBC MORPH</td> <td>NOTED </td> <td /> </tr> <tr> <th colspan="10">LACTIC ACID - 11/26/16 05:40</th> </tr> <tr> <td>LACTIC ACID</td> <td>1.0 mmol/L</td> <td>0.5-2.0</td> </tr> <tr> <th colspan="10">BLOOD CULTURE - 11/26/16 06:40 </th> </tr> <tr> <td>Microbiology</td> <td> </td > <td /> </tr> <tr> <th colspan="10">URINALYSIS , ROUTINE - 11/26/16 06:59</th> </tr> <tr> <td>UA LEUKOCYTE ESTERASE DIPSTICK</td> <td>NEGATIVE </td> <td> NEGATIVE</td> </tr> <tr> <td>UA NITRITE DIPSTICK</td> <td>NEGATIVE </td> <td>NEGATIVE</td> </tr> <tr> <td>UA PROTEIN DIPSTICK</td> <td>1+ </td> <td>NEGATIVE </td> </tr> <tr> <td>UA GLUCOSE DIPSTICK</td> < td>NEGATIVE </td> <td>NEGATIVE</td> </tr> <tr> < td>UA KETONE DIPSTICK</td> <td>NEGATIVE </td> <td>NEGATIVE</td > </tr> <tr> <td>UA UROBILINOGEN DIPSTICK</td> < td>NORMAL </td> <td>NORMAL</td> </tr> <tr> <td> UA BILIRUBIN DIPSTICK</td> <td>NEGATIVE </td> <td>NEGATIVE</td > </tr> <tr> <td>UA BLOOD DIPSTICK</td> <td> NEGATIVE </td> <td>NEGATIVE</td> </tr> <tr> <td> UA SPECIFIC GRAVITY</td> <td>1.015 </td> <td>1.015-1.025</td> </tr> <tr> <td>UR PH</td> <td>5.5 </td> <td>5.0-7.0</td> </tr> <tr> < colspan="10">UA MICROSCOPIC - 11/26/16 06:59</th> </tr> <tr> <td>UA BACTERIA</td> <td>2+ </td> <td>NEGATIVE</td> </tr> <tr> <td>UA EPITHELIAL CELLS</td> <td>3+ epi/hpf</td> <td>0 - 1+</td> </tr> <tr> <td>UA HYALINE CAST</td > <td>5-10 cast/lpf</td> <td>0 - 1</td> </tr> < tr> <td>UA RBC</td> <td>3-5 rbc/hpf</td> <td>0 - 3</ td> </tr> <tr> <td>UA VOLUME FOR EXAM</td> <td> 12.0 mL</td> <td>(12mL STD)</td> </tr> <tr> <td> UA WBC</td> <td>2-5 wbc/hpf</td> <td>0 - 5</td> </tr> <tr> <th colspan="10">CBC W/DIFF - 03/19/17 00:21</th> </ tr> <tr> <td>BASOPHIL #</td> <td>0.0 k/cumm</td> <td>0.0-0.2</td> </tr> <tr> <td>BASOPHIL %</td> <td>1 %</td> <td>0-1</td> </tr> <tr> <td>EOSINOPHIL #</td> <td>0.1 k/cumm</td> <td>0.1-0.5</td> </tr> <tr> <td>EOSINOPHIL %</td> <td>1 &#37 ;</td> <td>2-4</td> </tr> <tr> <td>GRANULOCYTE # </td> <td>4.7 k/cumm</td> <td>2.0-9.0</td> </tr> <tr> <td>GRANULOCYTE %</td> <td>69 %</td> < td>50-75</td> </tr> <tr> <td>LYMPHOCYTE #</td> < td>1.1 k/cumm</td> <td>1.0-4.0</td> </tr> <tr> < td>LYMPHOCYTE %</td> <td>16 %</td> <td>20-30</td> </tr> <tr> <td>MEAN CELL HGB</td> <td>23.6 pg</td> <td>27.0-33.0</td> </tr> <tr> <td>MEAN CELL HGB CONCENTRATION</td> <td>30.8 g/dL</td> <td>32.0-37.0</td> </tr> <tr> <td>MEAN CELL VOLUME</td> <td>76.7 fl </td> <td>80.0-100.0</td> </tr> <tr> <td> MONOCYTE #</td> <td>0.9 k/cumm</td> <td>0.1-1.0</td> </ tr> <tr> <td>MONOCYTE %</td> <td>13 %</td> <td>4-6</td> </tr> <tr> <td>MEAN PLATELET VOLUME</ td> <td>8.8 fl</td> <td>8.5-10.9</td> </tr> <tr > <td>OVALOCYTES</td> <td>NOTED </td> <td /> < /tr> <tr> <td>RED BLOOD CELL</td> <td>3.60 m/cumm</td> <td>4.00-6.00</td> </tr> <tr> <td>RED CELL DISTRIBUTION WIDTH</td> <td>19.5 %</td> <td>11.0-15.6</td > </tr> <tr> <td>WHITE BLOOD CELL</td> <td>6.9 k /cumm</td> <td>5.0-10.0</td> </tr> <tr> <td> HEMOGLOBIN</td> <td>8.5 gm/dL</td> <td>12.0-16.0</td> < /tr> <tr> <td>HEMATOCRIT</td> <td>27.6 %</td> <td>37.0-47.0</td> </tr> <tr> <td>PLATELET COUNT</td > <td>331 k/cumm</td> <td>150-400</td> </tr> <tr > <th colspan="10">METABOLIC PANEL, COMPREHN - 03/19/17 00:21</th> </tr> <tr> <td>POTASSIUM</td> <td>3.7 mmol/L</td> <td>3.5-5.3</td> </tr> <tr> <td>EST GFR (MDRD)</ td> <td>> 60 mL/min</td> <td>> 59</td> </tr> <tr> <td>ANION GAP</td> <td>8 mmol/L</td> <td>5- 15</td> </tr> <tr> <td>EST CrCl (CG)</td> <td> 57 mL/min</td> <td>> 59</td> </tr> <tr> <td> GLUCOSE</td> <td>114 mg/dL</td> <td>70-99</td> </tr> <tr> <td>CALCIUM</td> <td>8.3 mg/dL</td> <td> 8.5-10.1</td> </tr> <tr> <td>BLOOD UREA NITROGEN</td> <td>19 mg/dL</td> <td>7-20</td> </tr> <tr> <td>CREATININE</td> <td>0.9 mg/dL</td> <td>0.6-1.0</td> </tr> <tr> <td>SODIUM</td> <td>135 mmol/L</td> <td>135-148</td> </tr> <tr> <td>CHLORIDE</td> <td>103 mmol/L</td> <td>98-110</td> </tr> <tr> <td>AST/SGOT</td> <td>12 Units/L</td> <td>10-37</td> </tr> <tr> <td>ALT/SGPT</td> <td>16 Units/L</td> <td>< 66</td> </tr> <tr> <td>CARBON DIOXIDE</ td> <td>24 mmol/L</td> <td>21-32</td> </tr> <tr > <td>TOTAL PROTEIN</td> <td>6.3 gm/dL</td> <td>6.4- 8.2</td> </tr> <tr> <td>ALBUMIN</td> <td>2.7 gm/ dL</td> <td>3.4-5.0</td> </tr> <tr> <td>BILI TOTAL</td> <td>0.1 mg/dL</td> <td>0.0-1.0</td> </tr> <tr> <td>ALKALINE PHOSPHATASE TOTAL</td> <td>85 IU/L</td > <td>45-117</td> </tr> <tr> <th colspan="10"> THYROID STIM HORMONE (TSH) - 03/19/17 00:21</th> </tr> <tr> <td>THYROID STIM HORMONE (TSH)</td> <td>1.18 uIU/mL</td> < td>0.34-4.82</td> </tr> <tr> <th colspan="10">ALCOHOL ( ETHANOL) SERUM - 03/19/17 00:21</th> </tr> <tr> <td> ALCOHOL (ETHANOL) SERUM</td> <td>< 10 mg/dL</td> <td> < 10</td> </tr> <tr> <th colspan="10">ACETAMINOPHEN ( TYLENOL) - 03/19/17 00:21</th> </tr> <tr> <td> ACETAMINOPHEN (TYLENOL)</td> <td>< 2 mcg/mL</td> <td>10-30< /td> </tr> <tr> < colspan="10">SALICYLATE (ASPIRIN) - 03/19/17 00:21</th> </tr> <tr> <td>SALICYLATE</td> <td>< 2.8 mg/dL</td> <td>2.8-29.0</td> </tr> <tr> <th colspan="10">LIPID PANEL - 03/19/17 00:21</th> </tr> <tr> <td>CHOLESTEROL/HDL RATIO</td> <td>3.7 </td> < td> < 5.0</td> </tr> <tr> <td>LDL CHOLESTEROL</td> <td>109 mg/dL</td> <td>< 100</td> </tr> <tr> <td>VLDL CHOLESTEROL</td> <td>19 mg/dL</td> <td>< 30</td> </tr> <tr> <td>TRIGLYCERIDES</td> <td> 95 mg/dL</td> <td>< 150</td> </tr> <tr> <td> CHOLESTEROL</td> <td>175 mg/dL</td> <td>< 200</td> < /tr> <tr> <td>HDL CHOLESTEROL</td> <td>47 mg/dL</td> <td>> 39</td> </tr> <tr> < colspan="10"> URINALYSIS, ROUTINE - 03/19/17 01:15</th> </tr> <tr> <td> UA LEUKOCYTE ESTERASE DIPSTICK</td> <td>NEGATIVE </td> <td> NEGATIVE</td> </tr> <tr> <td>UA NITRITE DIPSTICK</td> <td>NEGATIVE </td> <td>NEGATIVE</td> </tr> <tr> <td>UA PROTEIN DIPSTICK</td> <td>NEGATIVE </td> <td> NEGATIVE</td> </tr> <tr> <td>UA GLUCOSE DIPSTICK</td> <td>NEGATIVE </td> <td>NEGATIVE</td> </tr> <tr> <td>UA KETONE DIPSTICK</td> <td>NEGATIVE </td> <td> NEGATIVE</td> </tr> <tr> <td>UA UROBILINOGEN DIPSTICK</td > <td>NORMAL </td> <td>NORMAL</td> </tr> <tr> <td>UA BILIRUBIN DIPSTICK</td> <td>NEGATIVE </td> <td> NEGATIVE</td> </tr> <tr> <td>UA BLOOD DIPSTICK</td> <td>NEGATIVE </td> <td>NEGATIVE</td> </tr> <tr> <td>UA SPECIFIC GRAVITY</td> <td>1.009 </td> <td>1.015- 1.025</td> </tr> <tr> <td>UR PH</td> <td>6.5 </ td> <td>5.0-7.0</td> </tr> <tr> <th colspan="10 ">UR DRUGS OF ABUSE SCREEN - 03/19/17 01:15</th> </tr> <tr> <td>UR AMPHETAMINES SCREEN</td> <td>POS (>1000 ng/mL) </td> <td>NEGATIVE</td> </tr> <tr> <td>UR BARBITURATE SCREEN</td> <td>NEG (< 200 ng/mL) </td> <td>NEGATIVE</td> </tr> <tr> <td>DRUGS OF ABUSE SCREEN COMMENT</td> <td> </td> <td /> </tr> <tr> <td>UR OPIATES SCREEN</td> <td>NEG (< 300 ng/mL) </td> <td> NEGATIVE</td> </tr> <tr> <td>UR PHENCYCLIDINE (PCP) SCREEN</td> <td>NEG (< 25 ng/mL) </td> <td>NEGATIVE</td> </tr> <tr> <td>UR CANNABINOIDS (THC) SCREEN</td> <td>POS (> 50 ng/mL) </td> <td>NEGATIVE</td> </tr> <tr> <td>UR COCAINE METABOLITE SCREEN</td> <td>NEG (< 300 ng/mL) </td> <td>NEGATIVE</td> </tr> <tr> < td>UR METHADONE SCREEN</td> <td>NEG (< 300 ng/mL) </td> < td>NEGATIVE</td> </tr> <tr> <td>UR BENZODIAZEPINE SCREEN< /td> <td>NEG (< 200 ng/mL) </td> <td>NEGATIVE</td> </tr> <tr> <th colspan="10">MRSA SURVEILLANCE SCREEN - 03/19/17 08:48</th> </tr> <tr> <td>Microbiology</td> <td > </td> <td /> </tr> <tr> <th colspan="10"> GLUCOSE (POC) - 03/19/17 11:37</th> </tr> <tr> <td> GLUCOSE (POC)</td> <td>143 mg/dL</td> <td>70-99</td> </ tr> <tr> <th colspan="10">GLUCOSE (POC) - 03/19/17 17:11</th> </tr> <tr> <td>GLUCOSE (POC)</td> <td>130 mg/dL</ td> <td>70-99</td> </tr> <tr> <th colspan="10"> GLUCOSE (POC) - 03/19/17 21:14</th> </tr> <tr> <td> GLUCOSE (POC)</td> <td>169 mg/dL</td> <td>70-99</td> </ tr> <tr> <th colspan="10">CBC W/DIFF - 03/20/17 04:07</th> </tr> <tr> <td>EOSINOPHIL #</td> <td>0.1 k/cumm</td > <td>0.1-0.5</td> </tr> <tr> <td>EOSINOPHIL &# 37;</td> <td>1 %</td> <td>2-4</td> </tr> <tr > <td>GRANULOCYTE #</td> <td>4.9 k/cumm</td> <td>2.0- 9.0</td> </tr> <tr> <td>GRANULOCYTE %</td> < td>69 %</td> <td>50-75</td> </tr> <tr> <td> LYMPHOCYTE #</td> <td>1.4 k/cumm</td> <td>1.0-4.0</td> </tr> <tr> <td>LYMPHOCYTE %</td> <td>19 %</td> <td>20-30</td> </tr> <tr> <td>MEAN CELL HGB</td > <td>23.6 pg</td> <td>27.0-33.0</td> </tr> <tr > <td>MEAN CELL HGB CONCENTRATION</td> <td>31.4 g/dL</td> <td>32.0-37.0</td> </tr> <tr> <td>MEAN CELL VOLUME< /td> <td>75.2 fl</td> <td>80.0-100.0</td> </tr> <tr> <td>MONOCYTE #</td> <td>0.7 k/cumm</td> <td>0.1- 1.0</td> </tr> <tr> <td>MONOCYTE %</td> <td> 10 %</td> <td>4-6</td> </tr> <tr> <td>MEAN PLATELET VOLUME</td> <td>8.9 fl</td> <td>8.5-10.9</td> </tr> <tr> <td>OVALOCYTES</td> <td>NOTED </td> <td /> </tr> <tr> <td>RED BLOOD CELL</td> <td> 4.11 m/cumm</td> <td>4.00-6.00</td> </tr> <tr> < td>RED CELL DISTRIBUTION WIDTH</td> <td>19.5 %</td> <td> 11.0-15.6</td> </tr> <tr> <td>WHITE BLOOD CELL</td> <td>7.1 k/cumm</td> <td>5.0-10.0</td> </tr> <tr> <td>HEMOGLOBIN</td> <td>9.7 gm/dL</td> <td>12.0-16.0</ td> </tr> <tr> <td>HEMATOCRIT</td> <td>30.9 &#37 ;</td> <td>37.0-47.0</td> </tr> <tr> <td> PLATELET COUNT</td> <td>362 k/cumm</td> <td>150-400</td> </tr> <tr> <th colspan="10">RENAL FUNCTION PANEL - 03/20/17 04:07</th> </tr> <tr> <td>POTASSIUM</td> <td> 4.9 mmol/L</td> <td>3.5-5.3</td> </tr> <tr> <td> EST GFR (MDRD)</td> <td>58 mL/min</td> <td>> 59</td> </tr> <tr> <td>ANION GAP</td> <td>9 mmol/L</td> <td>5-15</td> </tr> <tr> <td>EST CrCl (CG)</td> <td>47 mL/min</td> <td>> 59</td> </tr> <tr> <td>GLUCOSE</td> <td>138 mg/dL</td> <td>70-99</td> </tr> <tr> <td>CALCIUM</td> <td>8.5 mg/dL</td> <td>8.5-10.1</td> </tr> <tr> <td>BLOOD UREA NITROGEN </td> <td>15 mg/dL</td> <td>7-20</td> </tr> <tr > <td>CREATININE</td> <td>1.0 mg/dL</td> <td>0.6-1.0< /td> </tr> <tr> <td>SODIUM</td> <td>134 mmol/L</ td> <td>135-148</td> </tr> <tr> <td>CHLORIDE</td > <td>103 mmol/L</td> <td>98-110</td> </tr> <tr > <td>CARBON DIOXIDE</td> <td>22 mmol/L</td> <td>21- 32</td> </tr> <tr> <td>ALBUMIN</td> <td>3.0 gm/ dL</td> <td>3.4-5.0</td> </tr> <tr> <td> PHOSPHORUS</td> <td>3.5 mg/dL</td> <td>2.5-4.9</td> </ tr> <tr> <th colspan="10">MAGNESIUM - 03/20/17 04:07</th> </tr> <tr> <td>MAGNESIUM</td> <td>1.9 mg/dL</td> <td>1.8-2.4</td> </tr> <tr> <th colspan="10"> GLUCOSE (POC) - 03/20/17 13:55</th> </tr> <tr> <td> GLUCOSE (POC)</td> <td>125 mg/dL</td> <td>70-99</td> </ tr> <tr> <th colspan="10">CBC W/DIFF - 04/13/17 05:39</th> </tr> <tr> <td>BASOPHIL #</td> <td>0.0 k/cumm</td> <td>0.0-0.2</td> </tr> <tr> <td>BASOPHIL %</ td> <td>1 %</td> <td>0-1</td> </tr> <tr> <td>EOSINOPHIL #</td> <td>0.1 k/cumm</td> <td>0.1-0.5</ td> </tr> <tr> <td>EOSINOPHIL %</td> <td>1 & #37;</td> <td>2-4</td> </tr> <tr> <td> GRANULOCYTE #</td> <td>5.4 k/cumm</td> <td>2.0-9.0</td> </tr> <tr> <td>GRANULOCYTE %</td> <td>74 %</ td> <td>50-75</td> </tr> <tr> <td>LYMPHOCYTE #</ td> <td>1.2 k/cumm</td> <td>1.0-4.0</td> </tr> < tr> <td>LYMPHOCYTE %</td> <td>17 %</td> <td> 20-30</td> </tr> <tr> <td>MEAN CELL HGB</td> <td >23.5 pg</td> <td>27.0-33.0</td> </tr> <tr> <td> MEAN CELL HGB CONCENTRATION</td> <td>30.8 g/dL</td> <td>32.0- 37.0</td> </tr> <tr> <td>MEAN CELL VOLUME</td> < td>76.3 fl</td> <td>80.0-100.0</td> </tr> <tr> < td>MONOCYTE #</td> <td>0.5 k/cumm</td> <td>0.1-1.0</td> </tr> <tr> <td>MONOCYTE %</td> <td>7 %</td> <td>4-6</td> </tr> <tr> <td>MEAN PLATELET VOLUME </td> <td>8.7 fl</td> <td>8.5-10.9</td> </tr> < tr> <td>RED BLOOD CELL</td> <td>4.17 m/cumm</td> <td> 4.00-6.00</td> </tr> <tr> <td>RED CELL DISTRIBUTION WIDTH </td> <td>19.4 %</td> <td>11.0-15.6</td> </tr> <tr> <td>WHITE BLOOD CELL</td> <td>7.3 k/cumm</td> <td>5.0-10.0</td> </tr> <tr> <td>HEMOGLOBIN</td> <td>9.8 gm/dL</td> <td>12.0-16.0</td> </tr> <tr> <td>HEMATOCRIT</td> <td>31.8 %</td> <td>37.0-47.0</ td> </tr> <tr> <td>PLATELET COUNT</td> <td>361 k /cumm</td> <td>150-400</td> </tr> <tr> <th colspan="10">MORPHOLOGY - 04/13/17 05:39</th> </tr> <tr> <td>RBC MORPH</td> <td>NOTED </td> <td /> </tr> <tr> <th colspan="10">[facility] - [facility]13[facility] 05:39</th> </tr> <tr> <td>POTASSIUM</td> <td>4.4 mmol/L</td > <td>3.5-5.3</td> </tr> <tr> <td>EST GFR (MDRD) </td> <td>58 mL/min</td> <td>> 59</td> </tr> <tr> <td>ANION GAP</td> <td>9 mmol/L</td> <td>5-15</ td> </tr> <tr> <td>EST CrCl (CG)</td> <td>54 mL/ min</td> <td>> 59</td> </tr> <tr> <td>GLUCOSE </td> <td>138 mg/dL</td> <td>70-99</td> </tr> < tr> <td>CALCIUM</td> <td>9.4 mg/dL</td> <td>8.5-10.1< /td> </tr> <tr> <td>BLOOD UREA NITROGEN</td> <td >39 mg/dL</td> <td>7-20</td> </tr> <tr> <td> CREATININE</td> <td>1.0 mg/dL</td> <td>0.6-1.0</td> </ tr> <tr> <td>SODIUM</td> <td>133 mmol/L</td> < td>135-148</td> </tr> <tr> <td>CHLORIDE</td> <td >100 mmol/L</td> <td>98-110</td> </tr> <tr> <td> AST/SGOT</td> <td>20 Units/L</td> <td>10-37</td> </tr> <tr> <td>ALT/SGPT</td> <td>29 Units/L</td> < td>< 66</td> </tr> <tr> <td>CARBON DIOXIDE</td> <td>24 mmol/L</td> <td>21-32</td> </tr> <tr> <td>TOTAL PROTEIN</td> <td>7.5 gm/dL</td> <td>6.4-8.2</td> </tr> <tr> <td>ALBUMIN</td> <td>3.4 gm/dL</td> <td>3.4-5.0</td> </tr> <tr> <td>BILI TOTAL</td> <td>< 0.1 mg/dL</td> <td>0.0-1.0</td> </tr> <tr> <td>ALKALINE PHOSPHATASE TOTAL</td> <td>100 IU/L</td> <td>45-117</td> </tr> <tr> <th colspan="10"> TROPONIN I - 04/13/17 05:39</th> </tr> <tr> <td>TROPONIN I</td> <td>< 0.02 ng/mL</td> <td>< 0.07</td> </tr > <tr> <th colspan="10">D-DIMER QUANT - 04/13/17 05:39</th> </tr> <tr> <td>D-DIMER QUANT</td> <td>934 ng/mL</td > <td>< 612</td> </tr> <tr> <th colspan="10"> CHEM/HEM PROFILE-BEDSIDE - 04/22/17 19:23</th> </tr> <tr> <td>POTASSIUM</td> <td>3.7 mmol/L</td> <td>3.5-5.3</td> </tr> <tr> <td>METHOD</td> <td>Bedside </td> <td /> </tr> <tr> <td>ANION GAP</td> <td>21 mmol/L</td> <td>10-20</td> </tr> <tr> <td>METHOD </td> <td>Bedside </td> <td /> </tr> <tr> <td>GLUCOSE</td> <td>101 mg/dL</td> <td>70-99</td> </tr> <tr> <td>BLOOD UREA NITROGEN</td> <td>17 mg/dL</ td> <td>7-20</td> </tr> <tr> <td>CREATININE</td > <td>0.7 mg/dL</td> <td>0.6-1.0</td> </tr> <tr > <td>HEMOGLOBIN</td> <td>9.5 gm/dL</td> <td>12.0- 16.0</td> </tr> <tr> <td>HEMATOCRIT</td> <td> 28.0 %</td> <td>37.0-47.0</td> </tr> <tr> < td>SODIUM</td> <td>136 mmol/L</td> <td>135-148</td> </ tr> <tr> <td>CHLORIDE</td> <td>95 mmol/L</td> <td>98-110</td> </tr> <tr> <td>CARBON DIOXIDE</td> <td>24 mmol/L</td> <td>21-32</td> </tr> <tr> <td>CALCIUM IONIZED</td> <td>TEST NOT PERFORMED mg/dL</td> < td>4.5-5.3</td> </tr> <tr> <th colspan="10">TROPONIN I BEDSIDE - 04/22/17 19:27</th> </tr> <tr> <td>METHOD</td> <td>Bedside </td> <td /> </tr> <tr> < td>TROPONIN I</td> <td>< 0.04 ng/mL</td> <td>< 0.11</td > </tr> <tr> <th colspan="10">CBC W/DIFF - 04/22/17 19:39 </th> </tr> <tr> <td>BASOPHIL #</td> <td>0.1 k/ cumm</td> <td>0.0-0.2</td> </tr> <tr> <td> BASOPHIL %</td> <td>1 %</td> <td>0-1</td> </tr > <tr> <td>EOSINOPHIL #</td> <td>0.1 k/cumm</td> <td>0.1-0.5</td> </tr> <tr> <td>EOSINOPHIL %</td > <td>3 %</td> <td>2-4</td> </tr> <tr> <td>GRANULOCYTE #</td> <td>1.9 k/cumm</td> <td>2.0-9.0</ td> </tr> <tr> <td>GRANULOCYTE %</td> <td> 40 %</td> <td>50-75</td> </tr> <tr> <td> LYMPHOCYTE #</td> <td>2.0 k/cumm</td> <td>1.0-4.0</td> </tr> <tr> <td>LYMPHOCYTE %</td> <td>41 %</td> <td>20-30</td> </tr> <tr> <td>MEAN CELL HGB</td > <td>24.5 pg</td> <td>27.0-33.0</td> </tr> <tr > <td>MEAN CELL HGB CONCENTRATION</td> <td>31.1 g/dL</td> <td>32.0-37.0</td> </tr> <tr> <td>MEAN CELL VOLUME< /td> <td>78.7 fl</td> <td>80.0-100.0</td> </tr> <tr> <td>MONOCYTE #</td> <td>0.7 k/cumm</td> <td>0.1- 1.0</td> </tr> <tr> <td>MONOCYTE %</td> <td> 15 %</td> <td>4-6</td> </tr> <tr> <td>MEAN PLATELET VOLUME</td> <td>8.8 fl</td> <td>8.5-10.9</td> </tr> <tr> <td>RED BLOOD CELL</td> <td>3.43 m/cumm</td > <td>4.00-6.00</td> </tr> <tr> <td>RED CELL DISTRIBUTION WIDTH</td> <td>19.5 %</td> <td>11.0-15.6</td > </tr> <tr> <td>WHITE BLOOD CELL</td> <td>4.8 k /cumm</td> <td>5.0-10.0</td> </tr> <tr> <td> HEMOGLOBIN</td> <td>8.4 gm/dL</td> <td>12.0-16.0</td> < /tr> <tr> <td>HEMATOCRIT</td> <td>27.0 %</td> <td>37.0-47.0</td> </tr> <tr> <td>PLATELET COUNT</td > <td>387 k/cumm</td> <td>150-400</td> </tr> <tr > <th colspan="10">MORPHOLOGY - 04/22/17 19:39</th> </tr> <tr> <td>RBC MORPH</td> <td>NOTED </td> <td /> </tr> <tr> <th colspan="10">HEPATIC FUNCTION PANEL - 19:39</th> </tr> <tr> <td>BILI UNCONJUGATED</td> <td>0.0 mg/dL</td> <td>0.0-0.7</td> </tr> <tr> <td>AST/SGOT</td> <td>17 Units/L</td> <td>10-37</td> </tr> <tr> <td>ALT/SGPT</td> <td>22 Units/L</td> <td>< 66</td> </tr> <tr> <td>TOTAL PROTEIN</td > <td>6.4 gm/dL</td> <td>6.4-8.2</td> </tr> <tr > <td>ALBUMIN</td> <td>2.9 gm/dL</td> <td>3.4-5.0</td > </tr> <tr> <td>BILI TOTAL</td> <td>< 0.1 mg /dL</td> <td>0.0-1.0</td> </tr> <tr> <td> ALKALINE PHOSPHATASE TOTAL</td> <td>80 IU/L</td> <td>45-117</ td> </tr> <tr> <td>BILI CONJUGATED</td> <td>&lt ; 0.1 mg/dL</td> <td>0.0-0.3</td> </tr> <tr> < th colspan="10">LIPASE - 04/22/17 19:39</th> </tr> <tr> < td>LIPASE</td> <td>92 Units/L</td> <td>73-393</td> </tr > <tr> <th colspan="10">ACETAMINOPHEN (TYLENOL) - 04/22/17 19:39 </th> </tr> <tr> <td>ACETAMINOPHEN (TYLENOL)</td> <td>< 2 mcg/mL</td> <td>10-30</td> </tr> <tr> <th colspan="10">SALICYLATE (ASPIRIN) - 04/22/17 19:39</th> </tr> <tr> <td>SALICYLATE</td> <td>< 2.8 mg/dL</td> <td>2.8-29.0</td> </tr> <tr> <th colspan="10">UR DRUGS OF ABUSE SCREEN - 04/22/17 19:47</th> </tr> <tr> < td>UR AMPHETAMINES SCREEN</td> <td>POS (>1000 ng/mL) </td> <td>NEGATIVE</td> </tr> <tr> <td>UR BARBITURATE SCREEN< /td> <td>NEG (< 200 ng/mL) </td> <td>NEGATIVE</td> </tr> <tr> <td>DRUGS OF ABUSE SCREEN COMMENT</td> <td>* </td> <td /> </tr> <tr> <td>UR OPIATES SCREEN</td> <td>NEG (< 300 ng/mL) </td> <td>NEGATIVE</td> </tr> <tr> <td>UR PHENCYCLIDINE (PCP) SCREEN</td> <td>NEG (< 25 ng/mL) </td> <td>NEGATIVE</td> </tr> <tr> <td>UR CANNABINOIDS (THC) SCREEN</td> <td>NEG (< 50 ng/mL) </td> <td>NEGATIVE</td> </tr> <tr> < td>UR COCAINE METABOLITE SCREEN</td> <td>NEG (< 300 ng/mL) </td> <td>NEGATIVE</td> </tr> <tr> <td>UR METHADONE SCREEN</td> <td>NEG (< 300 ng/mL) </td> <td>NEGATIVE</td> </tr> <tr> <td>UR BENZODIAZEPINE SCREEN</td> < td>NEG (< 200 ng/mL) </td> <td>NEGATIVE</td> </tr> < tr> < colspan="10">URINALYSIS, ROUTINE - 04/22/17 19:50</th> < /tr> <tr> <td>UA LEUKOCYTE ESTERASE DIPSTICK</td> <td> NEGATIVE </td> <td>NEGATIVE</td> </tr> <tr> <td> UA NITRITE DIPSTICK</td> <td>NEGATIVE </td> <td>NEGATIVE</td> </tr> <tr> <td>UA PROTEIN DIPSTICK</td> <td> NEGATIVE </td> <td>NEGATIVE</td> </tr> <tr> <td> UA GLUCOSE DIPSTICK</td> <td>NEGATIVE </td> <td>NEGATIVE</td> </tr> <tr> <td>UA KETONE DIPSTICK</td> <td> NEGATIVE </td> <td>NEGATIVE</td> </tr> <tr> <td> UA UROBILINOGEN DIPSTICK</td> <td>NORMAL </td> <td>NORMAL</td > </tr> <tr> <td>UA BILIRUBIN DIPSTICK</td> <td> NEGATIVE </td> <td>NEGATIVE</td> </tr> <tr> <td> UA BLOOD DIPSTICK</td> <td>NEGATIVE </td> <td>NEGATIVE</td> </tr> <tr> <td>UA SPECIFIC GRAVITY</td> <td> 1.015 </td> <td>1.015-1.025</td> </tr> <tr> <td> UR PH</td> <td>6.0 </td> <td>5.0-7.0</td> </tr> <tr> <th colspan="10">ALCOHOL (ETHANOL) SERUM - 04/22/17 20:34</th> </tr> <tr> <td>ALCOHOL (ETHANOL) SERUM</td> <td>& lt; 10 mg/dL</td> <td> < 10</td> </tr> <tr> < th colspan="10">LACTIC ACID - 04/22/17 20:34</th> </tr> <tr> <td>LACTIC ACID</td> <td>0.6 mmol/L</td> <td>0.5-2.0</td > </tr> <tr> <th colspan="10">BLOOD CULTURE - 04/22/17 20 :34</th> </tr> <tr> <td>Microbiology</td> <td> < /td> <td /> </tr> <tr> <th colspan="10">BLOOD CULTURE - 04/22/17 20:34</th> </tr> <tr> <td>Microbiology </td> <td> </td> <td /> </tr> <tr> <th colspan="10">Ferritin - 10/15/17 13:33</th> </tr> <tr> < td>Ferritin</td> <td>15.93 ng/mL</td> <td>4.63-204.00</td> </tr> <tr> <th colspan="10">Reticulocyte Count - 11/18/17 12:26</th> </tr> <tr> <td>Reticulocyte Count</td> <td>0.9 %</td> <td>0.6-2.6</td> </tr> <tr> <th colspan="10">Peripheral Smear - 11/18/17 12:26</th> </tr> < tr> <td>Peripheral smear</td> <td>Sent to [facility] for review </td> <td /> </tr> <tr> <th colspan= "10">Reticulocyte Count - 11/18/17 12:26</th> </tr> <tr> <td>Reticulocyte Count</td> <td>0.9 %</td> <td>0.6-2.6</td > </tr> </tbody> </table> </text> <entry> <organizer moodCode="EVN" classCode="BATTERY"> <templateId root= "[id number]" /> <id nullFlavor="NA" /> <code codeSystem="local" code="iCHEM8" displayName="CHEM/HEM PROFILE-BEDSIDE" /> <statusCode code="completed" /> <component> <observation moodCode= "EVN" classCode="OBS"> <templateId root="[id number] " /> <id nullFlavor="NA" /> <code codeSystem="local" code="K" displayName="POTASSIUM" /> <statusCode code="completed" /> < effectiveTime value="[id number]" /> <value unit="mmol/L" xsi:type="PQ " value="3.9" /> <referenceRange> <observationRange> <text>3.5-5.3</text> </observationRange> </ referenceRange> </observation> </component> <component> <observation moodCode="EVN" classCode="OBS"> <templateId root= "[id number]" /> <id nullFlavor="NA" /> < code codeSystem="local" code="CMETHOD" displayName="METHOD" /> < statusCode code="completed" /> <effectiveTime value="[id number]" /> <value unit="" xsi:type="PQ" value="Bedside" /> < referenceRange> <observationRange> <text /> < /observationRange> </referenceRange> </observation> </ component> <component> <observation moodCode="EVN" classCode="OBS"> <templateId root="[id number]" /> <id nullFlavor="NA" /> <code codeSystem="local" code="GAP" displayName= "ANION GAP" /> <statusCode code="completed" /> <effectiveTime value="" /> <value unit="mmol/L" xsi:type="PQ" value="16" / > <referenceRange> <observationRange> <text>10- 20</text> </observationRange> </referenceRange> </ observation> </component> <component> <observation moodCode= "EVN" classCode="OBS"> <templateId root="[id number] " /> <id nullFlavor="NA" /> <code codeSystem="local" code= "HMETHOD" displayName="METHOD" /> <statusCode code="completed" /> <effectiveTime value="" /> <value unit="" xsi:type="PQ " value="Bedside" /> <referenceRange> <observationRange> <text /> </observationRange> </referenceRange> </observation> </component> <component> <observation moodCode="EVN" classCode="OBS"> <templateId root= "10.03.840.1.040018.22.4.2" /> <id nullFlavor="NA" /> < code codeSystem="local" code="GLU" displayName="GLUCOSE" /> < statusCode code="completed" /> <effectiveTime value="" /> <value unit="mg/dL" xsi:type="PQ" value="152" /> < interpretationCode codeSystem="local" code="*" /> <referenceRange> <observationRange> <text>70-99</text> </ observationRange> </referenceRange> </observation> </ component> <component> <observation moodCode="EVN" classCode="OBS"> <templateId root="216.840.1.641906.10..22.4.2" /> <id nullFlavor="NA" /> <code codeSystem="local" code="BUN" displayName= "BLOOD UREA NITROGEN" /> <statusCode code="completed" /> < effectiveTime value="837000569957" /> <value unit="mg/dL" xsi:type="PQ " value="20" /> <referenceRange> <observationRange> <text>7-20</text> </observationRange> </referenceRange > </observation> </component> <component> <observation moodCode="EVN" classCode="OBS"> <templateId root= "10.03.840.1.513892.10..4.2" /> <id nullFlavor="NA" /> < code codeSystem="local" code="CREAT" displayName="CREATININE" /> < statusCode code="completed" /> <effectiveTime value="352237366343" /> <value unit="mg/dL" xsi:type="PQ" value="0.9" /> < referenceRange> <observationRange> <text>0.6-1.0</text> </observationRange> </referenceRange> </observation > </component> <component> <observation moodCode="EVN" classCode="OBS"> <templateId root="16.840.1.044717.10.20.22.4.2" /> <id nullFlavor="NA" /> <code codeSystem="local" code="HGBT" displayName="HEMOGLOBIN" /> <statusCode code="completed" /> < effectiveTime value="383323699546" /> <value unit="gm/dL" xsi:type="PQ " value="10.5" /> <interpretationCode codeSystem="local" code="*" /> <referenceRange> <observationRange> <text>12.0- 16.0</text> </observationRange> </referenceRange> </ observation> </component> <component> <observation moodCode= "EVN" classCode="OBS"> <templateId root="2.16.840.1.502749.10.20.22.4.2 " /> <id nullFlavor="NA" /> <code codeSystem="local" code= "HCTT" displayName="HEMATOCRIT" /> <statusCode code="completed" /> <effectiveTime value="686949600401" /> <value unit="%" xsi: type="PQ" value="31.0" /> <interpretationCode codeSystem="local" code= "*" /> <referenceRange> <observationRange> < text>37.0-47.0</text> </observationRange> </referenceRange> </observation> </component> <component> <observation moodCode="EVN" classCode="OBS"> <templateId root= "2.16.840.1.036857.10.20.22.4.2" /> <id nullFlavor="NA" /> < code codeSystem="local" code="NA" displayName="SODIUM" /> <statusCode code="completed" /> <effectiveTime value="531667160769" /> < value unit="mmol/L" xsi:type="PQ" value="136" /> <referenceRange> <observationRange> <text>135-148</text> </ observationRange> </referenceRange> </observation> </ component> <component> <observation moodCode="EVN" classCode="OBS"> <templateId root="16.840.1.248883.10.20.22.4.2" /> <id nullFlavor="NA" /> <code codeSystem="local" code="CL" displayName= "CHLORIDE" /> <statusCode code="completed" /> <effectiveTime value="132729383397" /> <value unit="mmol/L" xsi:type="PQ" value="99" / > <referenceRange> <observationRange> <text>98- 110</text> </observationRange> </referenceRange> </ observation> </component> <component> <observation moodCode= "EVN" classCode="OBS"> <templateId root="16.840.1.153847.10..22.4.2 " /> <id nullFlavor="NA" /> <code codeSystem="local" code="CO2 " displayName="CARBON DIOXIDE" /> <statusCode code="completed" /> <effectiveTime value="707373828722" /> <value unit="mmol/L" xsi: type="PQ" value="26" /> <referenceRange> <observationRange> <text>21-32</text> </observationRange> </ referenceRange> </observation> </component> <component> <observation moodCode="EVN" classCode="OBS"> <templateId root= "10.03.840.1.207519.10..22.4.2" /> <id nullFlavor="NA" /> < code codeSystem="local" code="CAION" displayName="CALCIUM IONIZED" /> < statusCode code="completed" /> <effectiveTime value="879255886774" /> <value unit="mg/dL" xsi:type="PQ" value="4.9" /> < referenceRange> <observationRange> <text>4.5-5.3</text> </observationRange> </referenceRange> </observation > </component> </organizer> </entry> <entry> <organizer moodCode= "EVN" classCode="BATTERY"> <templateId root="2.16.840.1.169608.10..22.4.1 " /> <id nullFlavor="NA" /> <code codeSystem="local" code="iTROPI" displayName="TROPONIN I BEDSIDE" /> <statusCode code="completed" /> < component> <observation moodCode="EVN" classCode="OBS"> < templateId root="2.16.840.1.076635.10...4.2" /> <id nullFlavor="NA " /> <code codeSystem="local" code="CMETHOD" displayName="METHOD" /> <statusCode code="completed" /> <effectiveTime value= "430771548927" /> <value unit="" xsi:type="PQ" value="Bedside" /> <referenceRange> <observationRange> <text /> </observationRange> </referenceRange> </observation> </component> <component> <observation moodCode="EVN" classCode="OBS "> <templateId root="2.16.840.1.463928.10..22.4.2" /> <id nullFlavor="NA" /> <code codeSystem="local" code="TROPI" displayName= "TROPONIN I" /> <statusCode code="completed" /> < effectiveTime value="704327080030" /> <value unit="ng/mL" xsi:type="PQ " value="< 0.04" /> <referenceRange> <observationRange> <text>< 0.11</text> </observationRange> </ referenceRange> </observation> </component> </organizer> </entry > <entry> <organizer moodCode="EVN" classCode="BATTERY"> <templateId root="16.840.1.523220.10...4.1" /> <id nullFlavor="NA" /> <code codeSystem="local" code="CBCD" displayName="CBC W/DIFF" /> <statusCode code ="completed" /> <component> <observation moodCode="EVN" classCode= "OBS"> <templateId root="10.03.840.1.100231.10..4.2" /> < id nullFlavor="NA" /> <code codeSystem="local" code="BA#" displayName= "BASOPHIL #" /> <statusCode code="completed" /> < effectiveTime value="859234193386" /> <value unit="k/cumm" xsi:type="PQ " value="0.1" /> <referenceRange> <observationRange> <text>0.0-0.2</text> </observationRange> </ referenceRange> </observation> </component> <component> <observation moodCode="EVN" classCode="OBS"> <templateId root= "10.03.840.1.438440.06.06..4.2" /> <id nullFlavor="NA" /> < code codeSystem="local" code="BA%" displayName="BASOPHIL %" /> <statusCode code="completed" /> <effectiveTime value="520253343618" /> <value unit="%" xsi:type="PQ" value="1" /> < referenceRange> <observationRange> <text>0-1</text> </observationRange> </referenceRange> </observation> </component> <component> <observation moodCode="EVN" classCode= "OBS"> <templateId root="10.03.840.1.621860.22.4.2" /> < id nullFlavor="NA" /> <code codeSystem="local" code="EO#" displayName= "EOSINOPHIL #" /> <statusCode code="completed" /> < effectiveTime value="" /> <value unit="k/cumm" xsi:type="PQ " value="0.1" /> <referenceRange> <observationRange> <text>0.1-0.5</text> </observationRange> </ referenceRange> </observation> </component> <component> <observation moodCode="EVN" classCode="OBS"> <templateId root= "16.840.1.034238.06.06.224.2" /> <id nullFlavor="NA" /> < code codeSystem="local" code="EO%" displayName="EOSINOPHIL %" /> <statusCode code="completed" /> <effectiveTime value="" /> <value unit="%" xsi:type="PQ" value="1" /> < interpretationCode codeSystem="local" code="*" /> <referenceRange> <observationRange> <text>2-4</text> </ observationRange> </referenceRange> </observation> </ component> <component> <observation moodCode="EVN" classCode="OBS"> <templateId root="10.03.840.1.735033.06.06.22.4.2" /> <id nullFlavor="NA" /> <code codeSystem="local" code="GR#" displayName= "GRANULOCYTE #" /> <statusCode code="completed" /> < effectiveTime value="886699627818" /> <value unit="k/cumm" xsi:type="PQ " value="4.8" /> <referenceRange> <observationRange> <text>2.0-9.0</text> </observationRange> </ referenceRange> </observation> </component> <component> <observation moodCode="EVN" classCode="OBS"> <templateId root= "10.03.840.1.610767.06.06.22.4.2" /> <id nullFlavor="NA" /> < code codeSystem="local" code="GR%" displayName="GRANULOCYTE %" /> <statusCode code="completed" /> <effectiveTime value=" " /> <value unit="%" xsi:type="PQ" value="64" /> < referenceRange> <observationRange> <text>50-75</text> </observationRange> </referenceRange> </observation> </component> <component> <observation moodCode="EVN" classCode= "OBS"> <templateId root="10.03.840.1.083527.06.06.22.4.2" /> < id nullFlavor="NA" /> <code codeSystem="local" code="LY#" displayName= "LYMPHOCYTE #" /> <statusCode code="completed" /> < effectiveTime value="462284010630" /> <value unit="k/cumm" xsi:type="PQ " value="1.7" /> <referenceRange> <observationRange> <text>1.0-4.0</text> </observationRange> </ referenceRange> </observation> </component> <component> <observation moodCode="EVN" classCode="OBS"> <templateId root= "10.03.840.1.321893.06.06.22.4.2" /> <id nullFlavor="NA" /> < code codeSystem="local" code="LY%" displayName="LYMPHOCYTE %" /> <statusCode code="completed" /> <effectiveTime value="" /> <value unit="%" xsi:type="PQ" value="23" /> < referenceRange> <observationRange> <text>20-30</text> </observationRange> </referenceRange> </observation> </component> <component> <observation moodCode="EVN" classCode= "OBS"> <templateId root="2.16.840.1.534246.10.22.4.2" /> < id nullFlavor="NA" /> <code codeSystem="local" code="MCH" displayName= "MEAN CELL HGB" /> <statusCode code="completed" /> < effectiveTime value="882432212537" /> <value unit="pg" xsi:type="PQ" value="23.7" /> <interpretationCode codeSystem="local" code="*" /> <referenceRange> <observationRange> <text>27.0- 33.0</text> </observationRange> </referenceRange> </ observation> </component> <component> <observation moodCode= "EVN" classCode="OBS"> <templateId root="2.16.840.1.771739.10..22.4.2 " /> <id nullFlavor="NA" /> <code codeSystem="local" code= "MCHC" displayName="MEAN CELL HGB CONCENTRATION" /> <statusCode code= "completed" /> <effectiveTime value="410747615872" /> <value unit="g/dL" xsi:type="PQ" value="30.8" /> <interpretationCode codeSystem="local" code="*" /> <referenceRange> < observationRange> <text>32.0-37.0</text> </ observationRange> </referenceRange> </observation> </ component> <component> <observation moodCode="EVN" classCode="OBS"> <templateId root="2.16.840.1.366700.10.20.22.4.2" /> <id nullFlavor="NA" /> <code codeSystem="local" code="MCV" displayName= "MEAN CELL VOLUME" /> <statusCode code="completed" /> < effectiveTime value="" /> <value unit="fl" xsi:type="PQ" value="77.0" /> <interpretationCode codeSystem="local" code="*" /> <referenceRange> <observationRange> <text>80.0- 100.0</text> </observationRange> </referenceRange> </ observation> </component> <component> <observation moodCode= "EVN" classCode="OBS"> <templateId root="10.03.840.1.637935..22.4.2 " /> <id nullFlavor="NA" /> <code codeSystem="local" code="MO# " displayName="MONOCYTE #" /> <statusCode code="completed" /> <effectiveTime value="" /> <value unit="k/cumm" xsi:type= "PQ" value="0.8" /> <referenceRange> <observationRange> <text>0.1-1.0</text> </observationRange> </ referenceRange> </observation> </component> <component> <observation moodCode="EVN" classCode="OBS"> <templateId root= "10.03.840.1.197514.10.20.22.4.2" /> <id nullFlavor="NA" /> < code codeSystem="local" code="MO%" displayName="MONOCYTE %" /> <statusCode code="completed" /> <effectiveTime value="" /> <value unit="%" xsi:type="PQ" value="11" /> < interpretationCode codeSystem="local" code="*" /> <referenceRange> <observationRange> <text>4-6</text> </ observationRange> </referenceRange> </observation> </ component> <component> <observation moodCode="EVN" classCode="OBS"> <templateId root="216.840.1.140348.10.20.22.4.2" /> <id nullFlavor="NA" /> <code codeSystem="local" code="RBC" displayName=" RED BLOOD CELL" /> <statusCode code="completed" /> < effectiveTime value="033205038739" /> <value unit="m/cumm" xsi:type="PQ " value="3.92" /> <interpretationCode codeSystem="local" code="*" /> <referenceRange> <observationRange> <text>4.00- 6.00</text> </observationRange> </referenceRange> </ observation> </component> <component> <observation moodCode= "EVN" classCode="OBS"> <templateId root="10.03.840.1.979668...4.2 " /> <id nullFlavor="NA" /> <code codeSystem="local" code="RDW " displayName="RED CELL DISTRIBUTION WIDTH" /> <statusCode code= "completed" /> <effectiveTime value="794786012545" /> <value unit="%" xsi:type="PQ" value="15.3" /> <referenceRange> <observationRange> <text>11.0-15.6</text> </ observationRange> </referenceRange> </observation> </ component> <component> <observation moodCode="EVN" classCode="OBS"> <templateId root="216.840.1.627506.10.20.22.4.2" /> <id nullFlavor="NA" /> <code codeSystem="local" code="WBC" displayName= "WHITE BLOOD CELL" /> <statusCode code="completed" /> < effectiveTime value="582320058553" /> <value unit="k/cumm" xsi:type="PQ " value="7.6" /> <referenceRange> <observationRange> <text>5.0-10.0</text> </observationRange> </ referenceRange> </observation> </component> <component> <observation moodCode="EVN" classCode="OBS"> <templateId root= "2.16.840.1.438659.10.20.22.4.2" /> <id nullFlavor="NA" /> < code codeSystem="local" code="HGBT" displayName="HEMOGLOBIN" /> < statusCode code="completed" /> <effectiveTime value="927644910943" /> <value unit="gm/dL" xsi:type="PQ" value="9.3" /> < interpretationCode codeSystem="local" code="*" /> <referenceRange> <observationRange> <text>12.0-16.0</text> </ observationRange> </referenceRange> </observation> </ component> <component> <observation moodCode="EVN" classCode="OBS"> <templateId root="216.840.1.959898.10.20.22.4.2" /> <id nullFlavor="NA" /> <code codeSystem="local" code="HCTT" displayName= "HEMATOCRIT" /> <statusCode code="completed" /> < effectiveTime value="412808546249" /> <value unit="%" xsi:type="PQ " value="30.2" /> <interpretationCode codeSystem="local" code="*" /> <referenceRange> <observationRange> <text>37.0- 47.0</text> </observationRange> </referenceRange> </ observation> </component> <component> <observation moodCode= "EVN" classCode="OBS"> <templateId root="2.16.840.1.632686.1022.4.2 " /> <id nullFlavor="NA" /> <code codeSystem="local" code="PLT " displayName="PLATELET COUNT" /> <statusCode code="completed" /> <effectiveTime value="116626841989" /> <value unit="k/cumm" xsi: type="PQ" value="542" /> <interpretationCode codeSystem="local" code="* " /> <referenceRange> <observationRange> <text> 150-400</text> </observationRange> </referenceRange> </observation> </component> </organizer> </entry> <entry> < organizer moodCode="EVN" classCode="BATTERY"> <templateId root= "2.16.840.1.064097.10..22.4.1" /> <id nullFlavor="NA" /> <code codeSystem="local" code="LIVER" displayName="HEPATIC FUNCTION PANEL" /> < statusCode code="completed" /> <component> <observation moodCode= "EVN" classCode="OBS"> <templateId root="216.840.1.758459.10.22.4.2 " /> <id nullFlavor="NA" /> <code codeSystem="local" code= "BILUC" displayName="BILI UNCONJUGATED" /> <statusCode code="completed " /> <effectiveTime value="286074687614" /> <value unit="mg/dL " xsi:type="PQ" value="0.1" /> <referenceRange> < observationRange> <text>0.0-0.7</text> </ observationRange> </referenceRange> </observation> </ component> <component> <observation moodCode="EVN" classCode="OBS"> <templateId root="216.840.1.861073.10...4.2" /> <id nullFlavor="NA" /> <code codeSystem="local" code="AST" displayName="AST /SGOT" /> <statusCode code="completed" /> <effectiveTime value ="203267066048" /> <value unit="Units/L" xsi:type="PQ" value="13" /> <referenceRange> <observationRange> <text>10-37< /text> </observationRange> </referenceRange> </ observation> </component> <component> <observation moodCode= "EVN" classCode="OBS"> <templateId root="216.840.1.814301.06.06.22.4.2 " /> <id nullFlavor="NA" /> <code codeSystem="local" code="ALT " displayName="ALT/SGPT" /> <statusCode code="completed" /> < effectiveTime value="308575533940" /> <value unit="Units/L" xsi:type= "PQ" value="18" /> <referenceRange> <observationRange> <text>< 66</text> </observationRange> </ referenceRange> </observation> </component> <component> <observation moodCode="EVN" classCode="OBS"> <templateId root= "16.840.1.277457.10..22.4.2" /> <id nullFlavor="NA" /> < code codeSystem="local" code="TP" displayName="TOTAL PROTEIN" /> < statusCode code="completed" /> <effectiveTime value="718300719946" /> <value unit="gm/dL" xsi:type="PQ" value="8.0" /> < referenceRange> <observationRange> <text>6.4-8.2</text> </observationRange> </referenceRange> </observation > </component> <component> <observation moodCode="EVN" classCode="OBS"> <templateId root="216.840.1.494033.10..22.4.2" /> <id nullFlavor="NA" /> <code codeSystem="local" code="ALB" displayName="ALBUMIN" /> <statusCode code="completed" /> < effectiveTime value="437863948033" /> <value unit="gm/dL" xsi:type="PQ " value="3.5" /> <referenceRange> <observationRange> <text>3.4-5.0</text> </observationRange> </ referenceRange> </observation> </component> <component> <observation moodCode="EVN" classCode="OBS"> <templateId root= "10.03.840.1.769667.10..4.2" /> <id nullFlavor="NA" /> < code codeSystem="local" code="BILTOT" displayName="BILI TOTAL" /> < statusCode code="completed" /> <effectiveTime value="432570925659" /> <value unit="mg/dL" xsi:type="PQ" value="0.2" /> < referenceRange> <observationRange> <text>0.0-1.0</text> </observationRange> </referenceRange> </observation > </component> <component> <observation moodCode="EVN" classCode="OBS"> <templateId root="10.03.840.1.607300.10..22.4.2" /> <id nullFlavor="NA" /> <code codeSystem="local" code="ALKP" displayName="ALKALINE PHOSPHATASE TOTAL" /> <statusCode code="completed " /> <effectiveTime value="776251791955" /> <value unit="IU/L " xsi:type="PQ" value="120" /> <interpretationCode codeSystem="local" code="*" /> <referenceRange> <observationRange> <text>45-117</text> </observationRange> </referenceRange> </observation> </component> <component> <observation moodCode="EVN" classCode="OBS"> <templateId root= "10.03.840.1.744965.10.22.4.2" /> <id nullFlavor="NA" /> < code codeSystem="local" code="BILC" displayName="BILI CONJUGATED" /> < statusCode code="completed" /> <effectiveTime value="586951994252" /> <value unit="mg/dL" xsi:type="PQ" value="< 0.1" /> < referenceRange> <observationRange> <text>0.0-0.3</text> </observationRange> </referenceRange> </observation > </component> </organizer> </entry> <entry> <organizer moodCode= "EVN" classCode="BATTERY"> <templateId root="10.03.840.1.975280.1022.4.1 " /> <id nullFlavor="NA" /> <code codeSystem="local" code="LIP" displayName="LIPASE" /> <statusCode code="completed" /> <component> <observation moodCode="EVN" classCode="OBS"> <templateId root= "10.03.840.1.376943.1022.4.2" /> <id nullFlavor="NA" /> < code codeSystem="local" code="LIP" displayName="LIPASE" /> <statusCode code="completed" /> <effectiveTime value="037429513637" /> < value unit="Units/L" xsi:type="PQ" value="78" /> <referenceRange> <observationRange> <text>73-393</text> </ observationRange> </referenceRange> </observation> </ component> </organizer> </entry> <entry> <organizer moodCode="EVN" classCode="BATTERY"> <templateId root="16.840.1.824378.10..22.4.1" /> <id nullFlavor="NA" /> <code codeSystem="local" code="GLUMON" displayName="GLUCOSE (POC)" /> <statusCode code="completed" /> < component> <observation moodCode="EVN" classCode="OBS"> < templateId root="16.840.1.803675.10..22.4.2" /> <id nullFlavor="NA " /> <code codeSystem="local" code="GLUMON" displayName="GLUCOSE (POC) " /> <statusCode code="completed" /> <effectiveTime value= "104292727220" /> <value unit="mg/dL" xsi:type="PQ" value="119" /> <interpretationCode codeSystem="local" code="*" /> < referenceRange> <observationRange> <text>70-99</text> </observationRange> </referenceRange> </observation> </component> </organizer> </entry> <entry> <organizer moodCode="EVN " classCode="BATTERY"> <templateId root="10.03.840.1.243556.10..22.4.1" / > <id nullFlavor="NA" /> <code codeSystem="local" code="HH" displayName="HGB HCT" /> <statusCode code="completed" /> <component > <observation moodCode="EVN" classCode="OBS"> <templateId root= "840.1.402823.10.20.22.4.2" /> <id nullFlavor="NA" /> < code codeSystem="local" code="MCV" displayName="MEAN CELL VOLUME" /> < statusCode code="completed" /> <effectiveTime value="" /> <value unit="fl" xsi:type="PQ" value="77.0" /> < interpretationCode codeSystem="local" code="*" /> <referenceRange> <observationRange> <text>80.0-100.0</text> </ observationRange> </referenceRange> </observation> </ component> <component> <observation moodCode="EVN" classCode="OBS"> <templateId root="840.1.001518.10.22.4.2" /> <id nullFlavor="NA" /> <code codeSystem="local" code="HGBT" displayName= "HEMOGLOBIN" /> <statusCode code="completed" /> < effectiveTime value="" /> <value unit="gm/dL" xsi:type="PQ " value="8.2" /> <interpretationCode codeSystem="local" code="*" /> <referenceRange> <observationRange> <text>12.0- 16.0</text> </observationRange> </referenceRange> </ observation> </component> <component> <observation moodCode= "EVN" classCode="OBS"> <templateId root="840.1.226412.10.2022.4.2 " /> <id nullFlavor="NA" /> <code codeSystem="local" code= "HCTT" displayName="HEMATOCRIT" /> <statusCode code="completed" /> <effectiveTime value="" /> <value unit="%" xsi: type="PQ" value="27.1" /> <interpretationCode codeSystem="local" code= "*" /> <referenceRange> <observationRange> < text>37.0-47.0</text> </observationRange> </referenceRange> </observation> </component> </organizer> </entry> <entry> < organizer moodCode="EVN" classCode="BATTERY"> <templateId root= "16.840.1.122057.10..22.4.1" /> <id nullFlavor="NA" /> <code codeSystem="local" code="PT" displayName="PROTHROMBIN TIME WITH INR" /> < statusCode code="completed" /> <component> <observation moodCode= "EVN" classCode="OBS"> <templateId root="16.840.1.866053.10..22.4.2 " /> <id nullFlavor="NA" /> <code codeSystem="local" code= "INRX" displayName="INTERNATIONAL NORMAL RATIO" /> <statusCode code= "completed" /> <effectiveTime value="007655694970" /> <value unit="" xsi:type="PQ" value="1.0" /> <referenceRange> < observationRange> <text>0.9-1.1</text> </ observationRange> </referenceRange> </observation> </ component> <component> <observation moodCode="EVN" classCode="OBS"> <templateId root="10.03.840.1.648990.10..22.4.2" /> <id nullFlavor="NA" /> <code codeSystem="local" code="PTPAT" displayName= "PROTHROMBIN TIME" /> <statusCode code="completed" /> < effectiveTime value="096162083589" /> <value unit="sec" xsi:type="PQ" value="11.3" /> <referenceRange> <observationRange> <text>9.3-12.2</text> </observationRange> </ referenceRange> </observation> </component> </organizer> </entry > <entry> <organizer moodCode="EVN" classCode="BATTERY"> <templateId root="16.840.1.500765.10..22.4.1" /> <id nullFlavor="NA" /> <code codeSystem="local" code="TROPI" displayName="TROPONIN I" /> <statusCode code="completed" /> <component> <observation moodCode="EVN" classCode="OBS"> <templateId root="10.03.840.1.582785.10..4.2" /> <id nullFlavor="NA" /> <code codeSystem="local" code="TROPI" displayName="TROPONIN I" /> <statusCode code="completed" /> < effectiveTime value="045358626860" /> <value unit="ng/mL" xsi:type="PQ " value="< 0.02" /> <referenceRange> <observationRange> <text>< 0.07</text> </observationRange> </ referenceRange> </observation> </component> </organizer> </entry > <entry> <organizer moodCode="EVN" classCode="BATTERY"> <templateId root="10.03.840.1.754480.10..22.4.1" /> <id nullFlavor="NA" /> <code codeSystem="local" code="TROPI" displayName="TROPONIN I" /> <statusCode code="completed" /> <component> <observation moodCode="EVN" classCode="OBS"> <templateId root="16.840.1.529415.10..22.4.2" /> <id nullFlavor="NA" /> <code codeSystem="local" code="TROPI" displayName="TROPONIN I" /> <statusCode code="completed" /> < effectiveTime value="938003361822" /> <value unit="ng/mL" xsi:type="PQ " value="< 0.02" /> <referenceRange> <observationRange> <text>< 0.07</text> </observationRange> </ referenceRange> </observation> </component> </organizer> </entry > <entry> <organizer moodCode="EVN" classCode="BATTERY"> <templateId root="216.840.1.977307.10..22.4.1" /> <id nullFlavor="NA" /> <code codeSystem="local" code="GLUMON" displayName="GLUCOSE (POC)" /> < statusCode code="completed" /> <component> <observation moodCode= "EVN" classCode="OBS"> <templateId root="216.840.1.214195.10..22.4.2 " /> <id nullFlavor="NA" /> <code codeSystem="local" code= "GLUMON" displayName="GLUCOSE (POC)" /> <statusCode code="completed" / > <effectiveTime value="610719814721" /> <value unit="mg/dL" xsi:type="PQ" value="108" /> <interpretationCode codeSystem="local" code="*" /> <referenceRange> <observationRange> <text>70-99</text> </observationRange> </referenceRange> </observation> </component> </organizer> </entry> <entry> < organizer moodCode="EVN" classCode="BATTERY"> <templateId root= "216.840.1.884125.10.20.22.4.1" /> <id nullFlavor="NA" /> <code codeSystem="local" code="RENAL" displayName="RENAL FUNCTION PANEL" /> < statusCode code="completed" /> <component> <observation moodCode= "EVN" classCode="OBS"> <templateId root="16.840.1.958741.10..4.2 " /> <id nullFlavor="NA" /> <code codeSystem="local" code="K" displayName="POTASSIUM" /> <statusCode code="completed" /> < effectiveTime value="816696793316" /> <value unit="mmol/L" xsi:type="PQ " value="4.0" /> <referenceRange> <observationRange> <text>3.5-5.3</text> </observationRange> </ referenceRange> </observation> </component> <component> <observation moodCode="EVN" classCode="OBS"> <templateId root= "10.03.840.1.407027.10.4.2" /> <id nullFlavor="NA" /> < code codeSystem="local" code="eGFR" displayName="EST GFR (MDRD)" /> < statusCode code="completed" /> <effectiveTime value="896373076381" /> <value unit="mL/min" xsi:type="PQ" value="> 60" /> < referenceRange> <observationRange> <text>> 59</text> </observationRange> </referenceRange> </observation > </component> <component> <observation moodCode="EVN" classCode="OBS"> <templateId root="10.03.840.1.730581.10..4.2" /> <id nullFlavor="NA" /> <code codeSystem="local" code="GAP" displayName="ANION GAP" /> <statusCode code="completed" /> < effectiveTime value="" /> <value unit="mmol/L" xsi:type="PQ " value="8" /> <referenceRange> <observationRange> <text>5-15</text> </observationRange> </referenceRange > </observation> </component> <component> <observation moodCode="EVN" classCode="OBS"> <templateId root= "216.840.1.017816.10..22.4.2" /> <id nullFlavor="NA" /> < code codeSystem="local" code="eCrCl" displayName="EST CrCl (CG)" /> < statusCode code="completed" /> <effectiveTime value="" /> <value unit="mL/min" xsi:type="PQ" value="> 60" /> < referenceRange> <observationRange> <text>> 59</text> </observationRange> </referenceRange> </observation > </component> <component> <observation moodCode="EVN" classCode="OBS"> <templateId root="216.840.1.998538.10...4.2" /> <id nullFlavor="NA" /> <code codeSystem="local" code="GLU" displayName="GLUCOSE" /> <statusCode code="completed" /> < effectiveTime value="" /> <value unit="mg/dL" xsi:type="PQ " value="102" /> <interpretationCode codeSystem="local" code="*" /> <referenceRange> <observationRange> <text>70-99</ text> </observationRange> </referenceRange> </ observation> </component> <component> <observation moodCode= "EVN" classCode="OBS"> <templateId root="216.840.1.206821.06.06.224.2 " /> <id nullFlavor="NA" /> <code codeSystem="local" code="CA " displayName="CALCIUM" /> <statusCode code="completed" /> < effectiveTime value="" /> <value unit="mg/dL" xsi:type="PQ " value="8.2" /> <interpretationCode codeSystem="local" code="*" /> <referenceRange> <observationRange> <text>8.5- 10.1</text> </observationRange> </referenceRange> </ observation> </component> <component> <observation moodCode= "EVN" classCode="OBS"> <templateId root="2.16.840.1.712618.06.06.224.2 " /> <id nullFlavor="NA" /> <code codeSystem="local" code="BUN " displayName="BLOOD UREA NITROGEN" /> <statusCode code="completed" /> <effectiveTime value="" /> <value unit="mg/dL" xsi:type="PQ" value="15" /> <referenceRange> < observationRange> <text>7-20</text> </observationRange> </referenceRange> </observation> </component> < component> <observation moodCode="EVN" classCode="OBS"> < templateId root="2.16.840.1.360790.06.06.22.4.2" /> <id nullFlavor="NA " /> <code codeSystem="local" code="CREAT" displayName="CREATININE" /> <statusCode code="completed" /> <effectiveTime value= "" /> <value unit="mg/dL" xsi:type="PQ" value="0.8" /> <referenceRange> <observationRange> <text>0.6-1.0< /text> </observationRange> </referenceRange> </ observation> </component> <component> <observation moodCode= "EVN" classCode="OBS"> <templateId root="216.840.1.091654.10..22.4.2 " /> <id nullFlavor="NA" /> <code codeSystem="local" code="NA " displayName="SODIUM" /> <statusCode code="completed" /> < effectiveTime value="" /> <value unit="mmol/L" xsi:type="PQ " value="141" /> <referenceRange> <observationRange> <text>135-148</text> </observationRange> </ referenceRange> </observation> </component> <component> <observation moodCode="EVN" classCode="OBS"> <templateId root= "216.840.1.886672.10...4.2" /> <id nullFlavor="NA" /> < code codeSystem="local" code="CL" displayName="CHLORIDE" /> < statusCode code="completed" /> <effectiveTime value="" /> <value unit="mmol/L" xsi:type="PQ" value="107" /> < referenceRange> <observationRange> <text>98-110</text> </observationRange> </referenceRange> </observation> </component> <component> <observation moodCode="EVN" classCode ="OBS"> <templateId root="16.840.1.541468.10.20.22.4.2" /> < id nullFlavor="NA" /> <code codeSystem="local" code="CO2" displayName= "CARBON DIOXIDE" /> <statusCode code="completed" /> < effectiveTime value="" /> <value unit="mmol/L" xsi:type="PQ " value="26" /> <referenceRange> <observationRange> <text>21-32</text> </observationRange> </ referenceRange> </observation> </component> <component> <observation moodCode="EVN" classCode="OBS"> <templateId root= "10.03.840.1.785624.10.20.22.4.2" /> <id nullFlavor="NA" /> < code codeSystem="local" code="ALB" displayName="ALBUMIN" /> < statusCode code="completed" /> <effectiveTime value="" /> <value unit="gm/dL" xsi:type="PQ" value="3.0" /> < interpretationCode codeSystem="local" code="*" /> <referenceRange> <observationRange> <text>3.4-5.0</text> </ observationRange> </referenceRange> </observation> </ component> <component> <observation moodCode="EVN" classCode="OBS"> <templateId root="10.03.840.1.150602.10..22.4.2" /> <id nullFlavor="NA" /> <code codeSystem="local" code="PHOS" displayName= "PHOSPHORUS" /> <statusCode code="completed" /> < effectiveTime value="411472081001" /> <value unit="mg/dL" xsi:type="PQ " value="3.1" /> <referenceRange> <observationRange> <text>2.5-4.9</text> </observationRange> </ referenceRange> </observation> </component> </organizer> </entry > <entry> <organizer moodCode="EVN" classCode="BATTERY"> <templateId root="10.03.840.1.038629.10.20.22.4.1" /> <id nullFlavor="NA" /> <code codeSystem="local" code="HDLPRO" displayName="LIPID PANEL" /> <statusCode code="completed" /> <component> <observation moodCode="EVN" classCode="OBS"> <templateId root="16.840.1.516423.1022.4.2" /> <id nullFlavor="NA" /> <code codeSystem="local" code="CHOL/HDL " displayName="CHOLESTEROL/HDL RATIO" /> <statusCode code="completed" / > <effectiveTime value="" /> <value unit="" xsi: type="PQ" value="3.7" /> <referenceRange> <observationRange > <text> < 5.0</text> </observationRange> </ referenceRange> </observation> </component> <component> <observation moodCode="EVN" classCode="OBS"> <templateId root= "10.03.840.1.516526.06.06.22.4.2" /> <id nullFlavor="NA" /> < code codeSystem="local" code="LDLX" displayName="LDL CHOLESTEROL" /> < statusCode code="completed" /> <effectiveTime value="" /> <value unit="mg/dL" xsi:type="PQ" value="93" /> < referenceRange> <observationRange> <text>< 100</text > </observationRange> </referenceRange> </observation > </component> <component> <observation moodCode="EVN" classCode="OBS"> <templateId root="10.03.840.1.864412.10.22.4.2" /> <id nullFlavor="NA" /> <code codeSystem="local" code="VLDL" displayName="VLDL CHOLESTEROL" /> <statusCode code="completed" /> <effectiveTime value="149725942856" /> <value unit="mg/dL" xsi: type="PQ" value="27" /> <referenceRange> <observationRange> <text>< 30</text> </observationRange> </ referenceRange> </observation> </component> <component> <observation moodCode="EVN" classCode="OBS"> <templateId root= "216.840.1.598076.10.20.22.4.2" /> <id nullFlavor="NA" /> < code codeSystem="local" code="TRIG" displayName="TRIGLYCERIDES" /> < statusCode code="completed" /> <effectiveTime value="726747943184" /> <value unit="mg/dL" xsi:type="PQ" value="135" /> < referenceRange> <observationRange> <text>< 150</text > </observationRange> </referenceRange> </observation > </component> <component> <observation moodCode="EVN" classCode="OBS"> <templateId root="10.03.840.1.283760.10.22.4.2" /> <id nullFlavor="NA" /> <code codeSystem="local" code="CHOL" displayName="CHOLESTEROL" /> <statusCode code="completed" /> < effectiveTime value="266598190691" /> <value unit="mg/dL" xsi:type="PQ " value="164" /> <referenceRange> <observationRange> <text>< 200</text> </observationRange> </ referenceRange> </observation> </component> <component> <observation moodCode="EVN" classCode="OBS"> <templateId root= "10.03.840.1.543776.10.2022.4.2" /> <id nullFlavor="NA" /> < code codeSystem="local" code="HDL" displayName="HDL CHOLESTEROL" /> < statusCode code="completed" /> <effectiveTime value="583365131504" /> <value unit="mg/dL" xsi:type="PQ" value="44" /> < referenceRange> <observationRange> <text>> 39</text> </observationRange> </referenceRange> </observation > </component> </organizer> </entry> <entry> <organizer moodCode= "EVN" classCode="BATTERY"> <templateId root="10.03.840.1.369648.10..22.4.1 " /> <id nullFlavor="NA" /> <code codeSystem="local" code="MAG" displayName="MAGNESIUM" /> <statusCode code="completed" /> <component > <observation moodCode="EVN" classCode="OBS"> <templateId root= "10.03.840.1.374480.10..22.4.2" /> <id nullFlavor="NA" /> < code codeSystem="local" code="MAG" displayName="MAGNESIUM" /> < statusCode code="completed" /> <effectiveTime value="911633199649" /> <value unit="mg/dL" xsi:type="PQ" value="2.4" /> < referenceRange> <observationRange> <text>1.8-2.4</text> </observationRange> </referenceRange> </observation > </component> </organizer> </entry> <entry> <organizer moodCode= "EVN" classCode="BATTERY"> <templateId root="10.03.840.1.553681.10.20.22.4.1 " /> <id nullFlavor="NA" /> <code codeSystem="local" code="TROPI" displayName="TROPONIN I" /> <statusCode code="completed" /> <component > <observation moodCode="EVN" classCode="OBS"> <templateId root= "10.03.830.1.740331.10...4.2" /> <id nullFlavor="NA" /> < code codeSystem="local" code="TROPI" displayName="TROPONIN I" /> < statusCode code="completed" /> <effectiveTime value="812176455292" /> <value unit="ng/mL" xsi:type="PQ" value="< 0.02" /> < referenceRange> <observationRange> <text>< 0.07</text > </observationRange> </referenceRange> </observation > </component> </organizer> </entry> <entry> <organizer moodCode= "EVN" classCode="BATTERY"> <templateId root="10.03.840.1.274185.10..4.1 " /> <id nullFlavor="NA" /> <code codeSystem="local" code="CBCD" displayName="CBC W/DIFF" /> <statusCode code="completed" /> <component > <observation moodCode="EVN" classCode="OBS"> <templateId root= "10.03.840.1.299082...4.2" /> <id nullFlavor="NA" /> < code codeSystem="local" code="BA#" displayName="BASOPHIL #" /> < statusCode code="completed" /> <effectiveTime value="087915636222" /> <value unit="k/cumm" xsi:type="PQ" value="0.1" /> < referenceRange> <observationRange> <text>0.0-0.2</text> </observationRange> </referenceRange> </observation > </component> <component> <observation moodCode="EVN" classCode="OBS"> <templateId root="16.840.1.420359.06.06.22.4.2" /> <id nullFlavor="NA" /> <code codeSystem="local" code="BA% " displayName="BASOPHIL %" /> <statusCode code="completed" /> <effectiveTime value="624630214923" /> <value unit="%" xsi: type="PQ" value="1" /> <referenceRange> <observationRange> <text>0-1</text> </observationRange> </ referenceRange> </observation> </component> <component> <observation moodCode="EVN" classCode="OBS"> <templateId root= "2.16.840.1.417340...4.2" /> <id nullFlavor="NA" /> < code codeSystem="local" code="EO#" displayName="EOSINOPHIL #" /> < statusCode code="completed" /> <effectiveTime value="349390105205" /> <value unit="k/cumm" xsi:type="PQ" value="0.2" /> < referenceRange> <observationRange> <text>0.1-0.5</text> </observationRange> </referenceRange> </observation > </component> <component> <observation moodCode="EVN" classCode="OBS"> <templateId root="2.16.840.1.658494...4.2" /> <id nullFlavor="NA" /> <code codeSystem="local" code="EO% " displayName="EOSINOPHIL %" /> <statusCode code="completed" /> <effectiveTime value="257195604040" /> <value unit="%" xsi: type="PQ" value="2" /> <referenceRange> <observationRange> <text>2-4</text> </observationRange> </ referenceRange> </observation> </component> <component> <observation moodCode="EVN" classCode="OBS"> <templateId root= "16.840.1.663296.10.22.4.2" /> <id nullFlavor="NA" /> < code codeSystem="local" code="GR#" displayName="GRANULOCYTE #" /> < statusCode code="completed" /> <effectiveTime value="" /> <value unit="k/cumm" xsi:type="PQ" value="4.8" /> < referenceRange> <observationRange> <text>2.0-9.0</text> </observationRange> </referenceRange> </observation > </component> <component> <observation moodCode="EVN" classCode="OBS"> <templateId root="10.03.840.1.254196.10.4.2" /> <id nullFlavor="NA" /> <code codeSystem="local" code="GR% " displayName="GRANULOCYTE %" /> <statusCode code="completed" /> <effectiveTime value="" /> <value unit="%" xsi: type="PQ" value="64" /> <referenceRange> <observationRange> <text>50-75</text> </observationRange> </ referenceRange> </observation> </component> <component> <observation moodCode="EVN" classCode="OBS"> <templateId root= "10.03.840.1.676226.10.20.22.4.2" /> <id nullFlavor="NA" /> < code codeSystem="local" code="LY#" displayName="LYMPHOCYTE #" /> < statusCode code="completed" /> <effectiveTime value="244081963467" /> <value unit="k/cumm" xsi:type="PQ" value="1.5" /> < referenceRange> <observationRange> <text>1.0-4.0</text> </observationRange> </referenceRange> </observation > </component> <component> <observation moodCode="EVN" classCode="OBS"> <templateId root="216.840.1.714283.10.20.22.4.2" /> <id nullFlavor="NA" /> <code codeSystem="local" code="LY% " displayName="LYMPHOCYTE %" /> <statusCode code="completed" /> <effectiveTime value="812519301986" /> <value unit="%" xsi: type="PQ" value="21" /> <referenceRange> <observationRange> <text>20-30</text> </observationRange> </ referenceRange> </observation> </component> <component> <observation moodCode="EVN" classCode="OBS"> <templateId root= "10.03.840.1.537953.10..4.2" /> <id nullFlavor="NA" /> < code codeSystem="local" code="MCH" displayName="MEAN CELL HGB" /> < statusCode code="completed" /> <effectiveTime value="905781161899" /> <value unit="pg" xsi:type="PQ" value="23.3" /> < interpretationCode codeSystem="local" code="*" /> <referenceRange> <observationRange> <text>27.0-33.0</text> </ observationRange> </referenceRange> </observation> </ component> <component> <observation moodCode="EVN" classCode="OBS"> <templateId root="10.03.840.1.655088.10.20.22.4.2" /> <id nullFlavor="NA" /> <code codeSystem="local" code="MCHC" displayName= "MEAN CELL HGB CONCENTRATION" /> <statusCode code="completed" /> <effectiveTime value="" /> <value unit="g/dL" xsi:type= "PQ" value="29.9" /> <interpretationCode codeSystem="local" code="*" / > <referenceRange> <observationRange> <text> 32.0-37.0</text> </observationRange> </referenceRange> </observation> </component> <component> <observation moodCode="EVN" classCode="OBS"> <templateId root= "2.16.840.1.729752.10..22.4.2" /> <id nullFlavor="NA" /> < code codeSystem="local" code="MCV" displayName="MEAN CELL VOLUME" /> < statusCode code="completed" /> <effectiveTime value="" /> <value unit="fl" xsi:type="PQ" value="77.8" /> < interpretationCode codeSystem="local" code="*" /> <referenceRange> <observationRange> <text>80.0-100.0</text> </ observationRange> </referenceRange> </observation> </ component> <component> <observation moodCode="EVN" classCode="OBS"> <templateId root="16.840.1.343139.10.20.22.4.2" /> <id nullFlavor="NA" /> <code codeSystem="local" code="MO#" displayName= "MONOCYTE #" /> <statusCode code="completed" /> < effectiveTime value="" /> <value unit="k/cumm" xsi:type="PQ " value="0.9" /> <referenceRange> <observationRange> <text>0.1-1.0</text> </observationRange> </ referenceRange> </observation> </component> <component> <observation moodCode="EVN" classCode="OBS"> <templateId root= "16.840.1.311994.10..4.2" /> <id nullFlavor="NA" /> < code codeSystem="local" code="MO%" displayName="MONOCYTE %" /> <statusCode code="completed" /> <effectiveTime value="990432768880" /> <value unit="%" xsi:type="PQ" value="12" /> < interpretationCode codeSystem="local" code="*" /> <referenceRange> <observationRange> <text>4-6</text> </ observationRange> </referenceRange> </observation> </ component> <component> <observation moodCode="EVN" classCode="OBS"> <templateId root="10.03.840.1.628515.06.06.22.4.2" /> <id nullFlavor="NA" /> <code codeSystem="local" code="RBC" displayName=" RED BLOOD CELL" /> <statusCode code="completed" /> < effectiveTime value="789326695298" /> <value unit="m/cumm" xsi:type="PQ " value="3.61" /> <interpretationCode codeSystem="local" code="*" /> <referenceRange> <observationRange> <text>4.00- 6.00</text> </observationRange> </referenceRange> </ observation> </component> <component> <observation moodCode= "EVN" classCode="OBS"> <templateId root="10.03.840.1.103019.22.4.2 " /> <id nullFlavor="NA" /> <code codeSystem="local" code="RDW " displayName="RED CELL DISTRIBUTION WIDTH" /> <statusCode code= "completed" /> <effectiveTime value="197634017327" /> <value unit="%" xsi:type="PQ" value="15.2" /> <referenceRange> <observationRange> <text>11.0-15.6</text> </ observationRange> </referenceRange> </observation> </ component> <component> <observation moodCode="EVN" classCode="OBS"> <templateId root="10.03.840.1.165204.10..22.4.2" /> <id nullFlavor="NA" /> <code codeSystem="local" code="WBC" displayName= "WHITE BLOOD CELL" /> <statusCode code="completed" /> < effectiveTime value="542487843688" /> <value unit="k/cumm" xsi:type="PQ " value="7.4" /> <referenceRange> <observationRange> <text>5.0-10.0</text> </observationRange> </ referenceRange> </observation> </component> <component> <observation moodCode="EVN" classCode="OBS"> <templateId root= "10.03.840.1.313950.10..22.4.2" /> <id nullFlavor="NA" /> < code codeSystem="local" code="HGBT" displayName="HEMOGLOBIN" /> < statusCode code="completed" /> <effectiveTime value="566516902070" /> <value unit="gm/dL" xsi:type="PQ" value="8.4" /> < interpretationCode codeSystem="local" code="*" /> <referenceRange> <observationRange> <text>12.0-16.0</text> </ observationRange> </referenceRange> </observation> </ component> <component> <observation moodCode="EVN" classCode="OBS"> <templateId root="10.03.840.1.604366.10..22.4.2" /> <id nullFlavor="NA" /> <code codeSystem="local" code="HCTT" displayName= "HEMATOCRIT" /> <statusCode code="completed" /> < effectiveTime value="467937062221" /> <value unit="%" xsi:type="PQ " value="28.1" /> <interpretationCode codeSystem="local" code="*" /> <referenceRange> <observationRange> <text>37.0- 47.0</text> </observationRange> </referenceRange> </ observation> </component> <component> <observation moodCode= "EVN" classCode="OBS"> <templateId root="10.03.840.1.739025.10..4.2 " /> <id nullFlavor="NA" /> <code codeSystem="local" code="PLT " displayName="PLATELET COUNT" /> <statusCode code="completed" /> <effectiveTime value="971959104891" /> <value unit="k/cumm" xsi: type="PQ" value="437" /> <interpretationCode codeSystem="local" code="* " /> <referenceRange> <observationRange> <text> 150-400</text> </observationRange> </referenceRange> </observation> </component> </organizer> </entry> <entry> < organizer moodCode="EVN" classCode="BATTERY"> <templateId root= "10.03.840.1.536162.10.22.4.1" /> <id nullFlavor="NA" /> <code codeSystem="local" code="HBA1C" displayName="HEMOGLOBIN A1C" /> < statusCode code="completed" /> <component> <observation moodCode= "EVN" classCode="OBS"> <templateId root="10.03.840.1.054475.10.20.22.4.2 " /> <id nullFlavor="NA" /> <code codeSystem="local" code= "HBA1C" displayName="HEMOGLOBIN A1C" /> <statusCode code="completed" / > <effectiveTime value="912213788431" /> <value unit="%" xsi:type="PQ" value="6.7" /> <interpretationCode codeSystem="local" code="*" /> <referenceRange> <observationRange> <text>< 5.7</text> </observationRange> </referenceRange > </observation> </component> </organizer> </entry> <entry> <organizer moodCode="EVN" classCode="BATTERY"> <templateId root= "2.16.840.1.148551.10.20.22.4.1" /> <id nullFlavor="NA" /> <code codeSystem="local" code="GLUMON" displayName="GLUCOSE (POC)" /> < statusCode code="completed" /> <component> <observation moodCode= "EVN" classCode="OBS"> <templateId root="2.16.840.1.359226.10.20.22.4.2 " /> <id nullFlavor="NA" /> <code codeSystem="local" code= "GLUMON" displayName="GLUCOSE (POC)" /> <statusCode code="completed" / > <effectiveTime value="572777057148" /> <value unit="mg/dL" xsi:type="PQ" value="103" /> <interpretationCode codeSystem="local" code="*" /> <referenceRange> <observationRange> <text>70-99</text> </observationRange> </referenceRange> </observation> </component> </organizer> </entry> <entry> < organizer moodCode="EVN" classCode="BATTERY"> <templateId root= "840.1.812129.10.4.1" /> <id nullFlavor="NA" /> <code codeSystem="local" code="GLUMON" displayName="GLUCOSE (POC)" /> < statusCode code="completed" /> <component> <observation moodCode= "EVN" classCode="OBS"> <templateId root="840.1.010025.06.06.22.4.2 " /> <id nullFlavor="NA" /> <code codeSystem="local" code= "GLUMON" displayName="GLUCOSE (POC)" /> <statusCode code="completed" / > <effectiveTime value="657541761000" /> <value unit="mg/dL" xsi:type="PQ" value="92" /> <referenceRange> < observationRange> <text>70-99</text> </observationRange > </referenceRange> </observation> </component> </ organizer> </entry> <entry> <organizer moodCode="EVN" classCode="BATTERY"> <templateId root="840.1.128158.06.06.22.4.1" /> <id nullFlavor= "NA" /> <code codeSystem="local" code="GLUMON" displayName="GLUCOSE (POC)" /> <statusCode code="completed" /> <component> <observation moodCode="EVN" classCode="OBS"> <templateId root= "840.1.914923.06.06.22.4.2" /> <id nullFlavor="NA" /> < code codeSystem="local" code="GLUMON" displayName="GLUCOSE (POC)" /> < statusCode code="completed" /> <effectiveTime value="729979204996" /> <value unit="mg/dL" xsi:type="PQ" value="110" /> < interpretationCode codeSystem="local" code="*" /> <referenceRange> <observationRange> <text>70-99</text> </ observationRange> </referenceRange> </observation> </ component> </organizer> </entry> <entry> <organizer moodCode="EVN" classCode="BATTERY"> <templateId root="216.840.1.691782.10..22.4.1" /> <id nullFlavor="NA" /> <code codeSystem="local" code="GLUMON" displayName="GLUCOSE (POC)" /> <statusCode code="completed" /> < component> <observation moodCode="EVN" classCode="OBS"> < templateId root="216.840.1.561186.10..22.4.2" /> <id nullFlavor="NA " /> <code codeSystem="local" code="GLUMON" displayName="GLUCOSE (POC) " /> <statusCode code="completed" /> <effectiveTime value= "363374359506" /> <value unit="mg/dL" xsi:type="PQ" value="193" /> <interpretationCode codeSystem="local" code="*" /> < referenceRange> <observationRange> <text>70-99</text> </observationRange> </referenceRange> </observation> </component> </organizer> </entry> <entry> <organizer moodCode="EVN " classCode="BATTERY"> <templateId root="216.840.1.268071.10..22.4.1" / > <id nullFlavor="NA" /> <code codeSystem="local" code="GLUMON" displayName="GLUCOSE (POC)" /> <statusCode code="completed" /> < component> <observation moodCode="EVN" classCode="OBS"> < templateId root="840.1.602631.10..22.4.2" /> <id nullFlavor="NA " /> <code codeSystem="local" code="GLUMON" displayName="GLUCOSE (POC) " /> <statusCode code="completed" /> <effectiveTime value= "[id number]" /> <value unit="mg/dL" xsi:type="PQ" value="125" /> <interpretationCode codeSystem="local" code="*" /> < referenceRange> <observationRange> <text>70-99</text> </observationRange> </referenceRange> </observation> </component> </organizer> </entry> <entry> <organizer moodCode="EVN " classCode="BATTERY"> <templateId root="840.1.534552.10..22.4.1" / > <id nullFlavor="NA" /> <code codeSystem="local" code="CBCD" displayName="CBC W/DIFF" /> <statusCode code="completed" /> <component > <observation moodCode="EVN" classCode="OBS"> <templateId root= "840.1.737729.10..22.4.2" /> <id nullFlavor="NA" /> < code codeSystem="local" code="BA#" displayName="BASOPHIL #" /> < statusCode code="completed" /> <effectiveTime value="[id number]" /> <value unit="k/cumm" xsi:type="PQ" value="0.1" /> < referenceRange> <observationRange> <text>0.0-0.2</text> </observationRange> </referenceRange> </observation > </component> <component> <observation moodCode="EVN" classCode="OBS"> <templateId root="10.03.830.1.203049.10..4.2" /> <id nullFlavor="NA" /> <code codeSystem="local" code="BA% " displayName="BASOPHIL %" /> <statusCode code="completed" /> <effectiveTime value="" /> <value unit="%" xsi: type="PQ" value="1" /> <referenceRange> <observationRange> <text>0-1</text> </observationRange> </ referenceRange> </observation> </component> <component> <observation moodCode="EVN" classCode="OBS"> <templateId root= "216.840.1.153564.10..4.2" /> <id nullFlavor="NA" /> < code codeSystem="local" code="EO#" displayName="EOSINOPHIL #" /> < statusCode code="completed" /> <effectiveTime value="" /> <value unit="k/cumm" xsi:type="PQ" value="0.2" /> < referenceRange> <observationRange> <text>0.1-0.5</text> </observationRange> </referenceRange> </observation > </component> <component> <observation moodCode="EVN" classCode="OBS"> <templateId root="16.840.1.404967.06.06.22.4.2" /> <id nullFlavor="NA" /> <code codeSystem="local" code="EO% " displayName="EOSINOPHIL %" /> <statusCode code="completed" /> <effectiveTime value="" /> <value unit="%" xsi: type="PQ" value="3" /> <referenceRange> <observationRange> <text>2-4</text> </observationRange> </ referenceRange> </observation> </component> <component> <observation moodCode="EVN" classCode="OBS"> <templateId root= "216.840.1.184733.104.2" /> <id nullFlavor="NA" /> < code codeSystem="local" code="GR#" displayName="GRANULOCYTE #" /> < statusCode code="completed" /> <effectiveTime value="" /> <value unit="k/cumm" xsi:type="PQ" value="3.2" /> < referenceRange> <observationRange> <text>2.0-9.0</text> </observationRange> </referenceRange> </observation > </component> <component> <observation moodCode="EVN" classCode="OBS"> <templateId root="10.03.840.1.028583.06.06.224.2" /> <id nullFlavor="NA" /> <code codeSystem="local" code="GR% " displayName="GRANULOCYTE %" /> <statusCode code="completed" /> <effectiveTime value="" /> <value unit="%" xsi: type="PQ" value="61" /> <referenceRange> <observationRange> <text>50-75</text> </observationRange> </ referenceRange> </observation> </component> <component> <observation moodCode="EVN" classCode="OBS"> <templateId root= "216.840.1.297704.104.2" /> <id nullFlavor="NA" /> < code codeSystem="local" code="LY#" displayName="LYMPHOCYTE #" /> < statusCode code="completed" /> <effectiveTime value="" /> <value unit="k/cumm" xsi:type="PQ" value="1.3" /> < referenceRange> <observationRange> <text>1.0-4.0</text> </observationRange> </referenceRange> </observation > </component> <component> <observation moodCode="EVN" classCode="OBS"> <templateId root="216.840.1.349281.10..4.2" /> <id nullFlavor="NA" /> <code codeSystem="local" code="LY% " displayName="LYMPHOCYTE %" /> <statusCode code="completed" /> <effectiveTime value="" /> <value unit="%" xsi: type="PQ" value="25" /> <referenceRange> <observationRange> <text>20-30</text> </observationRange> </ referenceRange> </observation> </component> <component> <observation moodCode="EVN" classCode="OBS"> <templateId root= "10.03.840.1.527453.10.4.2" /> <id nullFlavor="NA" /> < code codeSystem="local" code="MCH" displayName="MEAN CELL HGB" /> < statusCode code="completed" /> <effectiveTime value="" /> <value unit="pg" xsi:type="PQ" value="22.9" /> < interpretationCode codeSystem="local" code="*" /> <referenceRange> <observationRange> <text>27.0-33.0</text> </ observationRange> </referenceRange> </observation> </ component> <component> <observation moodCode="EVN" classCode="OBS"> <templateId root="16.840.1.734134.10.22.4.2" /> <id nullFlavor="NA" /> <code codeSystem="local" code="MCHC" displayName= "MEAN CELL HGB CONCENTRATION" /> <statusCode code="completed" /> <effectiveTime value="" /> <value unit="g/dL" xsi:type= "PQ" value="29.6" /> <interpretationCode codeSystem="local" code="*" / > <referenceRange> <observationRange> <text> 32.0-37.0</text> </observationRange> </referenceRange> </observation> </component> <component> <observation moodCode="EVN" classCode="OBS"> <templateId root= "216.840.1.385673.10..4.2" /> <id nullFlavor="NA" /> < code codeSystem="local" code="MCV" displayName="MEAN CELL VOLUME" /> < statusCode code="completed" /> <effectiveTime value="" /> <value unit="fl" xsi:type="PQ" value="77.4" /> < interpretationCode codeSystem="local" code="*" /> <referenceRange> <observationRange> <text>80.0-100.0</text> </ observationRange> </referenceRange> </observation> </ component> <component> <observation moodCode="EVN" classCode="OBS"> <templateId root="216.840.1.808153.10.22.4.2" /> <id nullFlavor="NA" /> <code codeSystem="local" code="MO#" displayName= "MONOCYTE #" /> <statusCode code="completed" /> < effectiveTime value="" /> <value unit="k/cumm" xsi:type="PQ " value="0.5" /> <referenceRange> <observationRange> <text>0.1-1.0</text> </observationRange> </ referenceRange> </observation> </component> <component> <observation moodCode="EVN" classCode="OBS"> <templateId root= "216.840.1.658548.10.2022.4.2" /> <id nullFlavor="NA" /> < code codeSystem="local" code="MO%" displayName="MONOCYTE %" /> <statusCode code="completed" /> <effectiveTime value="" /> <value unit="%" xsi:type="PQ" value="10" /> < interpretationCode codeSystem="local" code="*" /> <referenceRange> <observationRange> <text>4-6</text> </ observationRange> </referenceRange> </observation> </ component> <component> <observation moodCode="EVN" classCode="OBS"> <templateId root="10.03.840.1.452155.1022.4.2" /> <id nullFlavor="NA" /> <code codeSystem="local" code="RBC" displayName=" RED BLOOD CELL" /> <statusCode code="completed" /> < effectiveTime value="" /> <value unit="m/cumm" xsi:type="PQ " value="3.54" /> <interpretationCode codeSystem="local" code="*" /> <referenceRange> <observationRange> <text>4.00- 6.00</text> </observationRange> </referenceRange> </ observation> </component> <component> <observation moodCode= "EVN" classCode="OBS"> <templateId root="16.840.1.045170.10.2022.4.2 " /> <id nullFlavor="NA" /> <code codeSystem="local" code="RDW " displayName="RED CELL DISTRIBUTION WIDTH" /> <statusCode code= "completed" /> <effectiveTime value="" /> <value unit="%" xsi:type="PQ" value="14.7" /> <referenceRange> <observationRange> <text>11.0-15.6</text> </ observationRange> </referenceRange> </observation> </ component> <component> <observation moodCode="EVN" classCode="OBS"> <templateId root="216.840.1.564275.10.20.22.4.2" /> <id nullFlavor="NA" /> <code codeSystem="local" code="WBC" displayName= "WHITE BLOOD CELL" /> <statusCode code="completed" /> < effectiveTime value="" /> <value unit="k/cumm" xsi:type="PQ " value="5.3" /> <referenceRange> <observationRange> <text>5.0-10.0</text> </observationRange> </ referenceRange> </observation> </component> <component> <observation moodCode="EVN" classCode="OBS"> <templateId root= "216.840.1.819392.10.20.22.4.2" /> <id nullFlavor="NA" /> < code codeSystem="local" code="HGBT" displayName="HEMOGLOBIN" /> < statusCode code="completed" /> <effectiveTime value="" /> <value unit="gm/dL" xsi:type="PQ" value="8.1" /> < interpretationCode codeSystem="local" code="*" /> <referenceRange> <observationRange> <text>12.0-16.0</text> </ observationRange> </referenceRange> </observation> </ component> <component> <observation moodCode="EVN" classCode="OBS"> <templateId root="10.03.840.1.836039.10..22.4.2" /> <id nullFlavor="NA" /> <code codeSystem="local" code="HCTT" displayName= "HEMATOCRIT" /> <statusCode code="completed" /> < effectiveTime value="" /> <value unit="%" xsi:type="PQ " value="27.4" /> <interpretationCode codeSystem="local" code="*" /> <referenceRange> <observationRange> <text>37.0- 47.0</text> </observationRange> </referenceRange> </ observation> </component> <component> <observation moodCode= "EVN" classCode="OBS"> <templateId root="840.1.621661.104.2 " /> <id nullFlavor="NA" /> <code codeSystem="local" code="PLT " displayName="PLATELET COUNT" /> <statusCode code="completed" /> <effectiveTime value="" /> <value unit="k/cumm" xsi: type="PQ" value="389" /> <referenceRange> <observationRange > <text>150-400</text> </observationRange> </ referenceRange> </observation> </component> </organizer> </entry > <entry> <organizer moodCode="EVN" classCode="BATTERY"> <templateId root="10.03.840.1.031694.10.2022.4.1" /> <id nullFlavor="NA" /> <code codeSystem="local" code="VITB12" displayName="VITAMIN B12" /> <statusCode code="completed" /> <component> <observation moodCode="EVN" classCode="OBS"> <templateId root="10.03.840.1.509558...22.4.2" /> <id nullFlavor="NA" /> <code codeSystem="local" code="VITB12" displayName="VITAMIN B12" /> <statusCode code="completed" /> < effectiveTime value="869392970607" /> <value unit="pg/mL" xsi:type="PQ " value="593" /> <referenceRange> <observationRange> <text>211-911</text> </observationRange> </ referenceRange> </observation> </component> </organizer> </entry > <entry> <organizer moodCode="EVN" classCode="BATTERY"> <templateId root="16.840.1.541189.10...4.1" /> <id nullFlavor="NA" /> <code codeSystem="local" code="RENAL" displayName="RENAL FUNCTION PANEL" /> < statusCode code="completed" /> <component> <observation moodCode= "EVN" classCode="OBS"> <templateId root="10.03.840.1.931387....4.2 " /> <id nullFlavor="NA" /> <code codeSystem="local" code="K" displayName="POTASSIUM" /> <statusCode code="completed" /> < effectiveTime value="015939010421" /> <value unit="mmol/L" xsi:type="PQ " value="4.2" /> <referenceRange> <observationRange> <text>3.5-5.3</text> </observationRange> </ referenceRange> </observation> </component> <component> <observation moodCode="EVN" classCode="OBS"> <templateId root= "10.03.840.1.772898.10..22.4.2" /> <id nullFlavor="NA" /> < code codeSystem="local" code="eGFR" displayName="EST GFR (MDRD)" /> < statusCode code="completed" /> <effectiveTime value="" /> <value unit="mL/min" xsi:type="PQ" value="> 60" /> < referenceRange> <observationRange> <text>> 59</text> </observationRange> </referenceRange> </observation > </component> <component> <observation moodCode="EVN" classCode="OBS"> <templateId root="216.840.1.540936.10.20.22.4.2" /> <id nullFlavor="NA" /> <code codeSystem="local" code="GAP" displayName="ANION GAP" /> <statusCode code="completed" /> < effectiveTime value="" /> <value unit="mmol/L" xsi:type="PQ " value="7" /> <referenceRange> <observationRange> <text>5-15</text> </observationRange> </referenceRange > </observation> </component> <component> <observation moodCode="EVN" classCode="OBS"> <templateId root= "16.840.1.871535.10.20.22.4.2" /> <id nullFlavor="NA" /> < code codeSystem="local" code="eCrCl" displayName="EST CrCl (CG)" /> < statusCode code="completed" /> <effectiveTime value="" /> <value unit="mL/min" xsi:type="PQ" value="> 60" /> < referenceRange> <observationRange> <text>> 59</text> </observationRange> </referenceRange> </observation > </component> <component> <observation moodCode="EVN" classCode="OBS"> <templateId root="10.03.840.1.964120..20.22.4.2" /> <id nullFlavor="NA" /> <code codeSystem="local" code="GLU" displayName="GLUCOSE" /> <statusCode code="completed" /> < effectiveTime value="116196296288" /> <value unit="mg/dL" xsi:type="PQ " value="110" /> <interpretationCode codeSystem="local" code="*" /> <referenceRange> <observationRange> <text>70-99</ text> </observationRange> </referenceRange> </ observation> </component> <component> <observation moodCode= "EVN" classCode="OBS"> <templateId root="10.03.840.1.136988.22.4.2 " /> <id nullFlavor="NA" /> <code codeSystem="local" code="CA " displayName="CALCIUM" /> <statusCode code="completed" /> < effectiveTime value="613068479913" /> <value unit="mg/dL" xsi:type="PQ " value="8.6" /> <referenceRange> <observationRange> <text>8.5-10.1</text> </observationRange> </ referenceRange> </observation> </component> <component> <observation moodCode="EVN" classCode="OBS"> <templateId root= "10.03.840.1.166280.10.2022.4.2" /> <id nullFlavor="NA" /> < code codeSystem="local" code="BUN" displayName="BLOOD UREA NITROGEN" /> <statusCode code="completed" /> <effectiveTime value="499833364895" / > <value unit="mg/dL" xsi:type="PQ" value="12" /> < referenceRange> <observationRange> <text>7-20</text> </observationRange> </referenceRange> </observation> </component> <component> <observation moodCode="EVN" classCode= "OBS"> <templateId root="216.840.1.315917.1022.4.2" /> < id nullFlavor="NA" /> <code codeSystem="local" code="CREAT" displayName ="CREATININE" /> <statusCode code="completed" /> < effectiveTime value="740031463855" /> <value unit="mg/dL" xsi:type="PQ " value="0.9" /> <referenceRange> <observationRange> <text>0.6-1.0</text> </observationRange> </ referenceRange> </observation> </component> <component> <observation moodCode="EVN" classCode="OBS"> <templateId root= "10.03.840.1.860585.22.4.2" /> <id nullFlavor="NA" /> < code codeSystem="local" code="NA" displayName="SODIUM" /> <statusCode code="completed" /> <effectiveTime value="372414185479" /> < value unit="mmol/L" xsi:type="PQ" value="139" /> <referenceRange> <observationRange> <text>135-148</text> </ observationRange> </referenceRange> </observation> </ component> <component> <observation moodCode="EVN" classCode="OBS"> <templateId root="10.03.840.1.190224.10.22.4.2" /> <id nullFlavor="NA" /> <code codeSystem="local" code="CL" displayName= "CHLORIDE" /> <statusCode code="completed" /> <effectiveTime value="172214901699" /> <value unit="mmol/L" xsi:type="PQ" value="104" /> <referenceRange> <observationRange> <text>98 -110</text> </observationRange> </referenceRange> </ observation> </component> <component> <observation moodCode= "EVN" classCode="OBS"> <templateId root="10.03.840.1.939759.10.20.22.4.2 " /> <id nullFlavor="NA" /> <code codeSystem="local" code="CO2 " displayName="CARBON DIOXIDE" /> <statusCode code="completed" /> <effectiveTime value="" /> <value unit="mmol/L" xsi: type="PQ" value="28" /> <referenceRange> <observationRange> <text>21-32</text> </observationRange> </ referenceRange> </observation> </component> <component> <observation moodCode="EVN" classCode="OBS"> <templateId root= "10.03.840.1.059782.10..4.2" /> <id nullFlavor="NA" /> < code codeSystem="local" code="ALB" displayName="ALBUMIN" /> < statusCode code="completed" /> <effectiveTime value="030196919313" /> <value unit="gm/dL" xsi:type="PQ" value="3.1" /> < interpretationCode codeSystem="local" code="*" /> <referenceRange> <observationRange> <text>3.4-5.0</text> </ observationRange> </referenceRange> </observation> </ component> <component> <observation moodCode="EVN" classCode="OBS"> <templateId root="10.03.840.1.850372.10..22.4.2" /> <id nullFlavor="NA" /> <code codeSystem="local" code="PHOS" displayName= "PHOSPHORUS" /> <statusCode code="completed" /> < effectiveTime value="452500334447" /> <value unit="mg/dL" xsi:type="PQ " value="2.9" /> <referenceRange> <observationRange> <text>2.5-4.9</text> </observationRange> </ referenceRange> </observation> </component> </organizer> </entry > <entry> <organizer moodCode="EVN" classCode="BATTERY"> <templateId root="16.840.1.079136.10..22.4.1" /> <id nullFlavor="NA" /> <code codeSystem="local" code="MAG" displayName="MAGNESIUM" /> <statusCode code= "completed" /> <component> <observation moodCode="EVN" classCode= "OBS"> <templateId root="10.03.840.1.884869.10...4.2" /> < id nullFlavor="NA" /> <code codeSystem="local" code="MAG" displayName= "MAGNESIUM" /> <statusCode code="completed" /> <effectiveTime value="741077409114" /> <value unit="mg/dL" xsi:type="PQ" value="2.7" / > <interpretationCode codeSystem="local" code="*" /> < referenceRange> <observationRange> <text>1.8-2.4</text> </observationRange> </referenceRange> </observation > </component> </organizer> </entry> <entry> <organizer moodCode= "EVN" classCode="BATTERY"> <templateId root="10.03.840.1.576653.10..4.1 " /> <id nullFlavor="NA" /> <code codeSystem="local" code="ALEX" displayName="FERRITIN" /> <statusCode code="completed" /> <component> <observation moodCode="EVN" classCode="OBS"> <templateId root= "2.16.840.1.905684.10..22.4.2" /> <id nullFlavor="NA" /> < code codeSystem="local" code="ALEX" displayName="FERRITIN" /> < statusCode code="completed" /> <effectiveTime value="479181555919" /> <value unit="ng/mL" xsi:type="PQ" value="6" /> < interpretationCode codeSystem="local" code="*" /> <referenceRange> <observationRange> <text>8-252</text> </ observationRange> </referenceRange> </observation> </ component> </organizer> </entry> <entry> <organizer moodCode="EVN" classCode="BATTERY"> <templateId root="2.16.840.1.074830.10..22.4.1" /> <id nullFlavor="NA" /> <code codeSystem="local" code="TSH" displayName ="THYROID STIM HORMONE (TSH)" /> <statusCode code="completed" /> < component> <observation moodCode="EVN" classCode="OBS"> < templateId root="2.16.840.1.413314.10.20.22.4.2" /> <id nullFlavor="NA " /> <code codeSystem="local" code="TSH" displayName="THYROID STIM HORMONE (TSH)" /> <statusCode code="completed" /> < effectiveTime value="571855137588" /> <value unit="uIU/mL" xsi:type="PQ " value="2.55" /> <referenceRange> <observationRange> <text>0.34-4.82</text> </observationRange> </ referenceRange> </observation> </component> </organizer> </entry > <entry> <organizer moodCode="EVN" classCode="BATTERY"> <templateId root="216.840.1.582339.10..22.4.1" /> <id nullFlavor="NA" /> <code codeSystem="local" code="FETIBC" displayName="IRON W/ BINDING CAPACITY" /> <statusCode code="completed" /> <component> <observation moodCode= "EVN" classCode="OBS"> <templateId root="216.840.1.049720.10..22.4.2 " /> <id nullFlavor="NA" /> <code codeSystem="local" code= "FESAT" displayName="IRON SATURATION" /> <statusCode code="completed" / > <effectiveTime value="" /> <value unit="%SAT " xsi:type="PQ" value="2" /> <interpretationCode codeSystem="local" code="*" /> <referenceRange> <observationRange> <text>11-46</text> </observationRange> </referenceRange> </observation> </component> <component> <observation moodCode="EVN" classCode="OBS"> <templateId root= "216.840.1.633387.10...4.2" /> <id nullFlavor="NA" /> < code codeSystem="local" code="TIBC" displayName="IRON BINDING CAPACITY, TOTAL" / > <statusCode code="completed" /> <effectiveTime value= "" /> <value unit="mcg/dL" xsi:type="PQ" value="467" /> <interpretationCode codeSystem="local" code="*" /> < referenceRange> <observationRange> <text>250-450</text> </observationRange> </referenceRange> </observation > </component> <component> <observation moodCode="EVN" classCode="OBS"> <templateId root="2.16.840.1.902744.10.20.22.4.2" /> <id nullFlavor="NA" /> <code codeSystem="local" code="IRON" displayName="IRON" /> <statusCode code="completed" /> < effectiveTime value="472569439129" /> <value unit="mcg/dL" xsi:type="PQ " value="10" /> <interpretationCode codeSystem="local" code="*" /> <referenceRange> <observationRange> <text>35-150</ text> </observationRange> </referenceRange> </ observation> </component> </organizer> </entry> <entry> <organizer moodCode="EVN" classCode="BATTERY"> <templateId root= "2.16.840.1.168614.10.20.22.4.1" /> <id nullFlavor="NA" /> <code codeSystem="local" code="GLUMON" displayName="GLUCOSE (POC)" /> < statusCode code="completed" /> <component> <observation moodCode= "EVN" classCode="OBS"> <templateId root="2.16.840.1.154765.10.20.22.4.2 " /> <id nullFlavor="NA" /> <code codeSystem="local" code= "GLUMON" displayName="GLUCOSE (POC)" /> <statusCode code="completed" / > <effectiveTime value="985022562794" /> <value unit="mg/dL" xsi:type="PQ" value="195" /> <interpretationCode codeSystem="local" code="*" /> <referenceRange> <observationRange> <text>70-99</text> </observationRange> </referenceRange> </observation> </component> </organizer> </entry> <entry> < organizer moodCode="EVN" classCode="BATTERY"> <templateId root= "840.1.774150.06.06.22.4.1" /> <id nullFlavor="NA" /> <code codeSystem="local" code="GLUMON" displayName="GLUCOSE (POC)" /> < statusCode code="completed" /> <component> <observation moodCode= "EVN" classCode="OBS"> <templateId root="840.1.302741.06.06.224.2 " /> <id nullFlavor="NA" /> <code codeSystem="local" code= "GLUMON" displayName="GLUCOSE (POC)" /> <statusCode code="completed" / > <effectiveTime value="417893100620" /> <value unit="mg/dL" xsi:type="PQ" value="171" /> <interpretationCode codeSystem="local" code="*" /> <referenceRange> <observationRange> <text>70-99</text> </observationRange> </referenceRange> </observation> </component> </organizer> </entry> <entry> < organizer moodCode="EVN" classCode="BATTERY"> <templateId root= "840.1.061676.06.06.22.4.1" /> <id nullFlavor="NA" /> <code codeSystem="local" code="DIMER" displayName="D-DIMER QUANT" /> <statusCode code="completed" /> <component> <observation moodCode="EVN" classCode="OBS"> <templateId root="840.1.030204.06.06.22.4.2" /> <id nullFlavor="NA" /> <code codeSystem="local" code="DIMER" displayName="D-DIMER QUANT" /> <statusCode code="completed" /> <effectiveTime value="985235747623" /> <value unit="ng/mL" xsi:type= "PQ" value="210" /> <referenceRange> <observationRange> <text>0-229</text> </observationRange> </ referenceRange> </observation> </component> </organizer> </entry > <entry> <organizer moodCode="EVN" classCode="BATTERY"> <templateId root="16.840.1.526689.10..22.4.1" /> <id nullFlavor="NA" /> <code codeSystem="local" code="iCHEM8" displayName="CHEM/HEM PROFILE-BEDSIDE" /> <statusCode code="completed" /> <component> <observation moodCode= "EVN" classCode="OBS"> <templateId root="216.840.1.944342.10...4.2 " /> <id nullFlavor="NA" /> <code codeSystem="local" code="K" displayName="POTASSIUM" /> <statusCode code="completed" /> < effectiveTime value="317776056737" /> <value unit="mmol/L" xsi:type="PQ " value="3.7" /> <referenceRange> <observationRange> <text>3.5-5.3</text> </observationRange> </ referenceRange> </observation> </component> <component> <observation moodCode="EVN" classCode="OBS"> <templateId root= "10.03.840.1.225006.10..22.4.2" /> <id nullFlavor="NA" /> < code codeSystem="local" code="CMETHOD" displayName="METHOD" /> < statusCode code="completed" /> <effectiveTime value="516782444026" /> <value unit="" xsi:type="PQ" value="Bedside" /> < referenceRange> <observationRange> <text /> < /observationRange> </referenceRange> </observation> </ component> <component> <observation moodCode="EVN" classCode="OBS"> <templateId root="16.840.1.896210.22.4.2" /> <id nullFlavor="NA" /> <code codeSystem="local" code="GAP" displayName= "ANION GAP" /> <statusCode code="completed" /> <effectiveTime value="" /> <value unit="mmol/L" xsi:type="PQ" value="20" / > <referenceRange> <observationRange> <text>10- 20</text> </observationRange> </referenceRange> </ observation> </component> <component> <observation moodCode= "EVN" classCode="OBS"> <templateId root="10.03.840.1.521701.06.06.22.4.2 " /> <id nullFlavor="NA" /> <code codeSystem="local" code= "HMETHOD" displayName="METHOD" /> <statusCode code="completed" /> <effectiveTime value="" /> <value unit="" xsi:type="PQ " value="Bedside" /> <referenceRange> <observationRange> <text /> </observationRange> </referenceRange> </observation> </component> <component> <observation moodCode="EVN" classCode="OBS"> <templateId root= "16.840.1.761324.22.4.2" /> <id nullFlavor="NA" /> < code codeSystem="local" code="GLU" displayName="GLUCOSE" /> < statusCode code="completed" /> <effectiveTime value="" /> <value unit="mg/dL" xsi:type="PQ" value="112" /> < interpretationCode codeSystem="local" code="*" /> <referenceRange> <observationRange> <text>70-99</text> </ observationRange> </referenceRange> </observation> </ component> <component> <observation moodCode="EVN" classCode="OBS"> <templateId root="216.840.1.984552.10.20.22.4.2" /> <id nullFlavor="NA" /> <code codeSystem="local" code="BUN" displayName= "BLOOD UREA NITROGEN" /> <statusCode code="completed" /> < effectiveTime value="" /> <value unit="mg/dL" xsi:type="PQ " value="18" /> <referenceRange> <observationRange> <text>7-20</text> </observationRange> </referenceRange > </observation> </component> <component> <observation moodCode="EVN" classCode="OBS"> <templateId root= "10.03.840.1.735751.10.22.4.2" /> <id nullFlavor="NA" /> < code codeSystem="local" code="CREAT" displayName="CREATININE" /> < statusCode code="completed" /> <effectiveTime value="[id number]" /> <value unit="mg/dL" xsi:type="PQ" value="0.9" /> < referenceRange> <observationRange> <text>0.6-1.0</text> </observationRange> </referenceRange> </observation > </component> <component> <observation moodCode="EVN" classCode="OBS"> <templateId root="16.840.1.404267.10.20.22.4.2" /> <id nullFlavor="NA" /> <code codeSystem="local" code="HGBT" displayName="HEMOGLOBIN" /> <statusCode code="completed" /> < effectiveTime value="[id number]" /> <value unit="gm/dL" xsi:type="PQ " value="11.2" /> <interpretationCode codeSystem="local" code="*" /> <referenceRange> <observationRange> <text>12.0- 16.0</text> </observationRange> </referenceRange> </ observation> </component> <component> <observation moodCode= "EVN" classCode="OBS"> <templateId root="2.16.840.1.490796.10.20.22.4.2 " /> <id nullFlavor="NA" /> <code codeSystem="local" code= "HCTT" displayName="HEMATOCRIT" /> <statusCode code="completed" /> <effectiveTime value="982377959281" /> <value unit="%" xsi: type="PQ" value="33.0" /> <interpretationCode codeSystem="local" code= "*" /> <referenceRange> <observationRange> < text>37.0-47.0</text> </observationRange> </referenceRange> </observation> </component> <component> <observation moodCode="EVN" classCode="OBS"> <templateId root= "2.16.840.1.432064.10.20.22.4.2" /> <id nullFlavor="NA" /> < code codeSystem="local" code="NA" displayName="SODIUM" /> <statusCode code="completed" /> <effectiveTime value="334532830905" /> < value unit="mmol/L" xsi:type="PQ" value="136" /> <referenceRange> <observationRange> <text>135-148</text> </ observationRange> </referenceRange> </observation> </ component> <component> <observation moodCode="EVN" classCode="OBS"> <templateId root="16.840.1.437841.10..22.4.2" /> <id nullFlavor="NA" /> <code codeSystem="local" code="CL" displayName= "CHLORIDE" /> <statusCode code="completed" /> <effectiveTime value="436297969934" /> <value unit="mmol/L" xsi:type="PQ" value="98" / > <referenceRange> <observationRange> <text>98- 110</text> </observationRange> </referenceRange> </ observation> </component> <component> <observation moodCode= "EVN" classCode="OBS"> <templateId root="16.840.1.295312.10..22.4.2 " /> <id nullFlavor="NA" /> <code codeSystem="local" code="CO2 " displayName="CARBON DIOXIDE" /> <statusCode code="completed" /> <effectiveTime value="" /> <value unit="mmol/L" xsi: type="PQ" value="22" /> <referenceRange> <observationRange> <text>21-32</text> </observationRange> </ referenceRange> </observation> </component> <component> <observation moodCode="EVN" classCode="OBS"> <templateId root= "10.03.840.1.634297.10..22.4.2" /> <id nullFlavor="NA" /> < code codeSystem="local" code="CAION" displayName="CALCIUM IONIZED" /> < statusCode code="completed" /> <effectiveTime value="098125586161" /> <value unit="mg/dL" xsi:type="PQ" value="5.0" /> < referenceRange> <observationRange> <text>4.5-5.3</text> </observationRange> </referenceRange> </observation > </component> </organizer> </entry> <entry> <organizer moodCode= "EVN" classCode="BATTERY"> <templateId root="216.840.1.074447.10..22.4.1 " /> <id nullFlavor="NA" /> <code codeSystem="local" code="iCHEM8" displayName="CHEM/HEM PROFILE-BEDSIDE" /> <statusCode code="completed" /> <component> <observation moodCode="EVN" classCode="OBS"> < templateId root="216.840.1.659658.10..4.2" /> <id nullFlavor="NA " /> <code codeSystem="local" code="K" displayName="POTASSIUM" /> <statusCode code="completed" /> <effectiveTime value="657164178692 " /> <value unit="mmol/L" xsi:type="PQ" value="4.1" /> < referenceRange> <observationRange> <text>3.5-5.3</text> </observationRange> </referenceRange> </observation > </component> <component> <observation moodCode="EVN" classCode="OBS"> <templateId root="16.840.1.827855....4.2" /> <id nullFlavor="NA" /> <code codeSystem="local" code="CMETHOD " displayName="METHOD" /> <statusCode code="completed" /> < effectiveTime value="" /> <value unit="" xsi:type="PQ" value="Bedside" /> <referenceRange> <observationRange> <text /> </observationRange> </referenceRange> </observation> </component> <component> <observation moodCode="EVN" classCode="OBS"> <templateId root= "16.840.1.716515.10.22.4.2" /> <id nullFlavor="NA" /> < code codeSystem="local" code="GAP" displayName="ANION GAP" /> < statusCode code="completed" /> <effectiveTime value="" /> <value unit="mmol/L" xsi:type="PQ" value="18" /> < referenceRange> <observationRange> <text>10-20</text> </observationRange> </referenceRange> </observation> </component> <component> <observation moodCode="EVN" classCode= "OBS"> <templateId root="10.03.840.1.157936..22.4.2" /> < id nullFlavor="NA" /> <code codeSystem="local" code="HMETHOD" displayName="METHOD" /> <statusCode code="completed" /> < effectiveTime value="" /> <value unit="" xsi:type="PQ" value="Bedside" /> <referenceRange> <observationRange> <text /> </observationRange> </referenceRange> </observation> </component> <component> <observation moodCode="EVN" classCode="OBS"> <templateId root= "10.03.840.1.136922.1022.4.2" /> <id nullFlavor="NA" /> < code codeSystem="local" code="GLU" displayName="GLUCOSE" /> < statusCode code="completed" /> <effectiveTime value="" /> <value unit="mg/dL" xsi:type="PQ" value="121" /> < interpretationCode codeSystem="local" code="*" /> <referenceRange> <observationRange> <text>70-99</text> </ observationRange> </referenceRange> </observation> </ component> <component> <observation moodCode="EVN" classCode="OBS"> <templateId root="16.840.1.145805.10.4.2" /> <id nullFlavor="NA" /> <code codeSystem="local" code="BUN" displayName= "BLOOD UREA NITROGEN" /> <statusCode code="completed" /> < effectiveTime value="839931653581" /> <value unit="mg/dL" xsi:type="PQ " value="21" /> <interpretationCode codeSystem="local" code="*" /> <referenceRange> <observationRange> <text>7-20</ text> </observationRange> </referenceRange> </ observation> </component> <component> <observation moodCode= "EVN" classCode="OBS"> <templateId root="10.03.840.1.224302.06.06.224.2 " /> <id nullFlavor="NA" /> <code codeSystem="local" code= "CREAT" displayName="CREATININE" /> <statusCode code="completed" /> <effectiveTime value="509057339616" /> <value unit="mg/dL" xsi: type="PQ" value="1.1" /> <interpretationCode codeSystem="local" code="* " /> <referenceRange> <observationRange> <text> 0.6-1.0</text> </observationRange> </referenceRange> </observation> </component> <component> <observation moodCode= "EVN" classCode="OBS"> <templateId root="16.840.1.820900.06.06.22.4.2 " /> <id nullFlavor="NA" /> <code codeSystem="local" code= "HGBT" displayName="HEMOGLOBIN" /> <statusCode code="completed" /> <effectiveTime value="670794466633" /> <value unit="gm/dL" xsi: type="PQ" value="9.2" /> <interpretationCode codeSystem="local" code="* " /> <referenceRange> <observationRange> <text> 12.0-16.0</text> </observationRange> </referenceRange> </observation> </component> <component> <observation moodCode="EVN" classCode="OBS"> <templateId root= "216.840.1.475190.10.20.22.4.2" /> <id nullFlavor="NA" /> < code codeSystem="local" code="HCTT" displayName="HEMATOCRIT" /> < statusCode code="completed" /> <effectiveTime value="552021654977" /> <value unit="%" xsi:type="PQ" value="27.0" /> < interpretationCode codeSystem="local" code="*" /> <referenceRange> <observationRange> <text>37.0-47.0</text> </ observationRange> </referenceRange> </observation> </ component> <component> <observation moodCode="EVN" classCode="OBS"> <templateId root="216.840.1.493544.10.20.22.4.2" /> <id nullFlavor="NA" /> <code codeSystem="local" code="NA" displayName= "SODIUM" /> <statusCode code="completed" /> <effectiveTime value="490434786322" /> <value unit="mmol/L" xsi:type="PQ" value="137" /> <referenceRange> <observationRange> <text> 135-148</text> </observationRange> </referenceRange> </observation> </component> <component> <observation moodCode= "EVN" classCode="OBS"> <templateId root="216.840.1.101593.10..22.4.2 " /> <id nullFlavor="NA" /> <code codeSystem="local" code="CL " displayName="CHLORIDE" /> <statusCode code="completed" /> < effectiveTime value="" /> <value unit="mmol/L" xsi:type="PQ " value="103" /> <referenceRange> <observationRange> <text>98-110</text> </observationRange> </ referenceRange> </observation> </component> <component> <observation moodCode="EVN" classCode="OBS"> <templateId root= "216.840.1.607971.10..4.2" /> <id nullFlavor="NA" /> < code codeSystem="local" code="CO2" displayName="CARBON DIOXIDE" /> < statusCode code="completed" /> <effectiveTime value="" /> <value unit="mmol/L" xsi:type="PQ" value="21" /> < referenceRange> <observationRange> <text>21-32</text> </observationRange> </referenceRange> </observation> </component> <component> <observation moodCode="EVN" classCode= "OBS"> <templateId root="16.840.1.819582.22.4.2" /> < id nullFlavor="NA" /> <code codeSystem="local" code="CAION" displayName ="CALCIUM IONIZED" /> <statusCode code="completed" /> < effectiveTime value="" /> <value unit="mg/dL" xsi:type="PQ " value="5.2" /> <referenceRange> <observationRange> <text>4.5-5.3</text> </observationRange> </ referenceRange> </observation> </component> </organizer> </entry > <entry> <organizer moodCode="EVN" classCode="BATTERY"> <templateId root="2.16.840.1.242374.10..22.4.1" /> <id nullFlavor="NA" /> <code codeSystem="local" code="iTROPI" displayName="TROPONIN I BEDSIDE" /> < statusCode code="completed" /> <component> <observation moodCode= "EVN" classCode="OBS"> <templateId root="2.16.840.1.835071.10..22.4.2 " /> <id nullFlavor="NA" /> <code codeSystem="local" code= "CMETHOD" displayName="METHOD" /> <statusCode code="completed" /> <effectiveTime value="" /> <value unit="" xsi:type="PQ " value="Bedside" /> <referenceRange> <observationRange> <text /> </observationRange> </referenceRange> </observation> </component> <component> <observation moodCode="EVN" classCode="OBS"> <templateId root= "2.16.840.1.008169.10..22.4.2" /> <id nullFlavor="NA" /> < code codeSystem="local" code="TROPI" displayName="TROPONIN I" /> < statusCode code="completed" /> <effectiveTime value="177125806373" /> <value unit="ng/mL" xsi:type="PQ" value="< 0.04" /> < referenceRange> <observationRange> <text>< 0.11</text > </observationRange> </referenceRange> </observation > </component> </organizer> </entry> <entry> <organizer moodCode= "EVN" classCode="BATTERY"> <templateId root="10.03.840.1.114723.10..4.1 " /> <id nullFlavor="NA" /> <code codeSystem="local" code="UA" displayName="URINALYSIS, ROUTINE" /> <statusCode code="completed" /> < component> <observation moodCode="EVN" classCode="OBS"> < templateId root="840.1.600859.06.06.22.4.2" /> <id nullFlavor="NA " /> <code codeSystem="local" code="LEUESU" displayName="UA LEUKOCYTE ESTERASE DIPSTICK" /> <statusCode code="completed" /> < effectiveTime value="" /> <value unit="" xsi:type="PQ" value="NEGATIVE" /> <referenceRange> <observationRange> <text>NEGATIVE</text> </observationRange> </ referenceRange> </observation> </component> <component> <observation moodCode="EVN" classCode="OBS"> <templateId root= "840.1.497446.06.06.22.4.2" /> <id nullFlavor="NA" /> < code codeSystem="local" code="NITRIU" displayName="UA NITRITE DIPSTICK" /> <statusCode code="completed" /> <effectiveTime value=" " /> <value unit="" xsi:type="PQ" value="NEGATIVE" /> < referenceRange> <observationRange> <text>NEGATIVE</text > </observationRange> </referenceRange> </observation > </component> <component> <observation moodCode="EVN" classCode="OBS"> <templateId root="10.03.840.1.710362.06.06.22.4.2" /> <id nullFlavor="NA" /> <code codeSystem="local" code="PROTEIU " displayName="UA PROTEIN DIPSTICK" /> <statusCode code="completed" /> <effectiveTime value="" /> <value unit="" xsi: type="PQ" value="NEGATIVE" /> <referenceRange> < observationRange> <text>NEGATIVE</text> </ observationRange> </referenceRange> </observation> </ component> <component> <observation moodCode="EVN" classCode="OBS"> <templateId root="10.03.840.1.576905.10..4.2" /> <id nullFlavor="NA" /> <code codeSystem="local" code="DGLUU" displayName= "UA GLUCOSE DIPSTICK" /> <statusCode code="completed" /> < effectiveTime value="" /> <value unit="" xsi:type="PQ" value="NEGATIVE" /> <referenceRange> <observationRange> <text>NEGATIVE</text> </observationRange> </ referenceRange> </observation> </component> <component> <observation moodCode="EVN" classCode="OBS"> <templateId root= "10.03.840.1.518675.06.06.22.4.2" /> <id nullFlavor="NA" /> < code codeSystem="local" code="KETONU" displayName="UA KETONE DIPSTICK" /> <statusCode code="completed" /> <effectiveTime value=" " /> <value unit="" xsi:type="PQ" value="NEGATIVE" /> < referenceRange> <observationRange> <text>NEGATIVE</text > </observationRange> </referenceRange> </observation > </component> <component> <observation moodCode="EVN" classCode="OBS"> <templateId root="10.03.840.1.927201.06.06.22.4.2" /> <id nullFlavor="NA" /> <code codeSystem="local" code="UROBILU " displayName="UA UROBILINOGEN DIPSTICK" /> <statusCode code="completed " /> <effectiveTime value="" /> <value unit="" xsi :type="PQ" value="NORMAL" /> <referenceRange> < observationRange> <text>NORMAL</text> </observationRange > </referenceRange> </observation> </component> < component> <observation moodCode="EVN" classCode="OBS"> < templateId root="216.840.1.416855.06.06.22.4.2" /> <id nullFlavor="NA " /> <code codeSystem="local" code="BILU" displayName="UA BILIRUBIN DIPSTICK" /> <statusCode code="completed" /> <effectiveTime value="" /> <value unit="" xsi:type="PQ" value="NEGATIVE" / > <referenceRange> <observationRange> <text> NEGATIVE</text> </observationRange> </referenceRange> </observation> </component> <component> <observation moodCode ="EVN" classCode="OBS"> <templateId root= "2.16.840.1.357976.06.06.22.4.2" /> <id nullFlavor="NA" /> < code codeSystem="local" code="ADAM" displayName="UA BLOOD DIPSTICK" /> < statusCode code="completed" /> <effectiveTime value="" /> <value unit="" xsi:type="PQ" value="NEGATIVE" /> < referenceRange> <observationRange> <text>NEGATIVE</text > </observationRange> </referenceRange> </observation > </component> <component> <observation moodCode="EVN" classCode="OBS"> <templateId root="10.03.840.1.868469.10.22.4.2" /> <id nullFlavor="NA" /> <code codeSystem="local" code="SPGRU" displayName="UA SPECIFIC GRAVITY" /> <statusCode code="completed" /> <effectiveTime value="" /> <value unit="" xsi:type= "PQ" value="1.015" /> <referenceRange> <observationRange> <text>1.015-1.025</text> </observationRange> </ referenceRange> </observation> </component> <component> <observation moodCode="EVN" classCode="OBS"> <templateId root= "840.1.361933.22.4.2" /> <id nullFlavor="NA" /> < code codeSystem="local" code="INGRID" displayName="UR PH" /> <statusCode code="completed" /> <effectiveTime value="" /> < value unit="" xsi:type="PQ" value="6.5" /> <referenceRange> <observationRange> <text>5.0-7.0</text> </ observationRange> </referenceRange> </observation> </ component> </organizer> </entry> <entry> <organizer moodCode="EVN" classCode="BATTERY"> <templateId root="16.840.1.635048.1022.4.1" /> <id nullFlavor="NA" /> <code codeSystem="local" code="CBCD" displayName="CBC W/DIFF" /> <statusCode code="completed" /> <component > <observation moodCode="EVN" classCode="OBS"> <templateId root= "10.03.840.1.950909.10204.2" /> <id nullFlavor="NA" /> < code codeSystem="local" code="BA#" displayName="BASOPHIL #" /> < statusCode code="completed" /> <effectiveTime value="369447174791" /> <value unit="k/cumm" xsi:type="PQ" value="0.1" /> < referenceRange> <observationRange> <text>0.0-0.2</text> </observationRange> </referenceRange> </observation > </component> <component> <observation moodCode="EVN" classCode="OBS"> <templateId root="2.16.840.1.575738.06.06.224.2" /> <id nullFlavor="NA" /> <code codeSystem="local" code="BA% " displayName="BASOPHIL %" /> <statusCode code="completed" /> <effectiveTime value="" /> <value unit="%" xsi: type="PQ" value="2" /> <interpretationCode codeSystem="local" code="*" /> <referenceRange> <observationRange> <text>0- 1</text> </observationRange> </referenceRange> </ observation> </component> <component> <observation moodCode= "EVN" classCode="OBS"> <templateId root="216.840.1.905040.06.06.224.2 " /> <id nullFlavor="NA" /> <code codeSystem="local" code= "CBCCOM" displayName="COMMENT" /> <statusCode code="completed" /> <effectiveTime value="208614665053" /> <value unit="" xsi:type="PQ " value="REVIEWED" /> <referenceRange> <observationRange> <text /> </observationRange> </referenceRange> </observation> </component> <component> <observation moodCode="EVN" classCode="OBS"> <templateId root= "16.840.1.433195.10..4.2" /> <id nullFlavor="NA" /> < code codeSystem="local" code="EO#" displayName="EOSINOPHIL #" /> < statusCode code="completed" /> <effectiveTime value="" /> <value unit="k/cumm" xsi:type="PQ" value="0.2" /> < referenceRange> <observationRange> <text>0.1-0.5</text> </observationRange> </referenceRange> </observation > </component> <component> <observation moodCode="EVN" classCode="OBS"> <templateId root="10.03.840.1.807675.06.06.22.4.2" /> <id nullFlavor="NA" /> <code codeSystem="local" code="EO% " displayName="EOSINOPHIL %" /> <statusCode code="completed" /> <effectiveTime value="" /> <value unit="%" xsi: type="PQ" value="3" /> <referenceRange> <observationRange> <text>2-4</text> </observationRange> </ referenceRange> </observation> </component> <component> <observation moodCode="EVN" classCode="OBS"> <templateId root= "10.03.840.1.556799.10...4.2" /> <id nullFlavor="NA" /> < code codeSystem="local" code="GR#" displayName="GRANULOCYTE #" /> < statusCode code="completed" /> <effectiveTime value="" /> <value unit="k/cumm" xsi:type="PQ" value="2.6" /> < referenceRange> <observationRange> <text>2.0-9.0</text> </observationRange> </referenceRange> </observation > </component> <component> <observation moodCode="EVN" classCode="OBS"> <templateId root="10.03.840.1.920932.10.20.22.4.2" /> <id nullFlavor="NA" /> <code codeSystem="local" code="GR% " displayName="GRANULOCYTE %" /> <statusCode code="completed" /> <effectiveTime value="" /> <value unit="%" xsi: type="PQ" value="50" /> <referenceRange> <observationRange> <text>50-75</text> </observationRange> </ referenceRange> </observation> </component> <component> <observation moodCode="EVN" classCode="OBS"> <templateId root= "840.1.638114.10.2022.4.2" /> <id nullFlavor="NA" /> < code codeSystem="local" code="LY#" displayName="LYMPHOCYTE #" /> < statusCode code="completed" /> <effectiveTime value="797162807783" /> <value unit="k/cumm" xsi:type="PQ" value="1.6" /> < referenceRange> <observationRange> <text>1.0-4.0</text> </observationRange> </referenceRange> </observation > </component> <component> <observation moodCode="EVN" classCode="OBS"> <templateId root="10.03.840.1.851843.10.20.22.4.2" /> <id nullFlavor="NA" /> <code codeSystem="local" code="LY% " displayName="LYMPHOCYTE %" /> <statusCode code="completed" /> <effectiveTime value="" /> <value unit="%" xsi: type="PQ" value="31" /> <interpretationCode codeSystem="local" code="* " /> <referenceRange> <observationRange> <text> 20-30</text> </observationRange> </referenceRange> </ observation> </component> <component> <observation moodCode= "EVN" classCode="OBS"> <templateId root="216.840.1.958313.10.20.22.4.2 " /> <id nullFlavor="NA" /> <code codeSystem="local" code="MCH " displayName="MEAN CELL HGB" /> <statusCode code="completed" /> <effectiveTime value="" /> <value unit="pg" xsi:type= "PQ" value="22.8" /> <interpretationCode codeSystem="local" code="*" / > <referenceRange> <observationRange> <text> 27.0-33.0</text> </observationRange> </referenceRange> </observation> </component> <component> <observation moodCode="EVN" classCode="OBS"> <templateId root= "216.840.1.639794.10.20.22.4.2" /> <id nullFlavor="NA" /> < code codeSystem="local" code="MCHC" displayName="MEAN CELL HGB CONCENTRATION" / > <statusCode code="completed" /> <effectiveTime value= "" /> <value unit="g/dL" xsi:type="PQ" value="30.8" /> <interpretationCode codeSystem="local" code="*" /> < referenceRange> <observationRange> <text>32.0-37.0</text > </observationRange> </referenceRange> </observation > </component> <component> <observation moodCode="EVN" classCode="OBS"> <templateId root="216.840.1.486273.10.4.2" /> <id nullFlavor="NA" /> <code codeSystem="local" code="MCV" displayName="MEAN CELL VOLUME" /> <statusCode code="completed" /> <effectiveTime value="" /> <value unit="fl" xsi:type= "PQ" value="74.0" /> <interpretationCode codeSystem="local" code="*" / > <referenceRange> <observationRange> <text> 80.0-100.0</text> </observationRange> </referenceRange> </observation> </component> <component> <observation moodCode="EVN" classCode="OBS"> <templateId root= "10.03.840.1.273962.06.06.224.2" /> <id nullFlavor="NA" /> < code codeSystem="local" code="MO#" displayName="MONOCYTE #" /> < statusCode code="completed" /> <effectiveTime value="" /> <value unit="k/cumm" xsi:type="PQ" value="0.8" /> < referenceRange> <observationRange> <text>0.1-1.0</text> </observationRange> </referenceRange> </observation > </component> <component> <observation moodCode="EVN" classCode="OBS"> <templateId root="10.03.840.1.602009.06.06.22.4.2" /> <id nullFlavor="NA" /> <code codeSystem="local" code="MO% " displayName="MONOCYTE %" /> <statusCode code="completed" /> <effectiveTime value="191934771655" /> <value unit="%" xsi: type="PQ" value="15" /> <interpretationCode codeSystem="local" code="* " /> <referenceRange> <observationRange> <text> 4-6</text> </observationRange> </referenceRange> </ observation> </component> <component> <observation moodCode= "EVN" classCode="OBS"> <templateId root="2.16.840.1.300493.10.20.22.4.2 " /> <id nullFlavor="NA" /> <code codeSystem="local" code="RBC " displayName="RED BLOOD CELL" /> <statusCode code="completed" /> <effectiveTime value="094164245176" /> <value unit="m/cumm" xsi: type="PQ" value="3.69" /> <interpretationCode codeSystem="local" code= "*" /> <referenceRange> <observationRange> < text>4.00-6.00</text> </observationRange> </referenceRange> </observation> </component> <component> <observation moodCode="EVN" classCode="OBS"> <templateId root= "2.16.840.1.322492.10.20.22.4.2" /> <id nullFlavor="NA" /> < code codeSystem="local" code="RDW" displayName="RED CELL DISTRIBUTION WIDTH" /> <statusCode code="completed" /> <effectiveTime value= "694911371293" /> <value unit="%" xsi:type="PQ" value="18.6" /> <interpretationCode codeSystem="local" code="*" /> < referenceRange> <observationRange> <text>11.0-15.6</text > </observationRange> </referenceRange> </observation > </component> <component> <observation moodCode="EVN" classCode="OBS"> <templateId root="10.03.840.1.697237.10.20.22.4.2" /> <id nullFlavor="NA" /> <code codeSystem="local" code="WBC" displayName="WHITE BLOOD CELL" /> <statusCode code="completed" /> <effectiveTime value="" /> <value unit="k/cumm" xsi: type="PQ" value="5.2" /> <referenceRange> <observationRange > <text>5.0-10.0</text> </observationRange> </ referenceRange> </observation> </component> <component> <observation moodCode="EVN" classCode="OBS"> <templateId root= "10.03.840.1.089026.10.22.4.2" /> <id nullFlavor="NA" /> < code codeSystem="local" code="HGBT" displayName="HEMOGLOBIN" /> < statusCode code="completed" /> <effectiveTime value="" /> <value unit="gm/dL" xsi:type="PQ" value="8.4" /> < interpretationCode codeSystem="local" code="*" /> <referenceRange> <observationRange> <text>12.0-16.0</text> </ observationRange> </referenceRange> </observation> </ component> <component> <observation moodCode="EVN" classCode="OBS"> <templateId root="10.03.840.1.709659.10.2022.4.2" /> <id nullFlavor="NA" /> <code codeSystem="local" code="HCTT" displayName= "HEMATOCRIT" /> <statusCode code="completed" /> < effectiveTime value="" /> <value unit="%" xsi:type="PQ " value="27.3" /> <interpretationCode codeSystem="local" code="*" /> <referenceRange> <observationRange> <text>37.0- 47.0</text> </observationRange> </referenceRange> </ observation> </component> <component> <observation moodCode= "EVN" classCode="OBS"> <templateId root="216.840.1.410748.1022.4.2 " /> <id nullFlavor="NA" /> <code codeSystem="local" code="PLT " displayName="PLATELET COUNT" /> <statusCode code="completed" /> <effectiveTime value="514794470005" /> <value unit="k/cumm" xsi: type="PQ" value="327" /> <referenceRange> <observationRange > <text>150-400</text> </observationRange> </ referenceRange> </observation> </component> </organizer> </entry > <entry> <organizer moodCode="EVN" classCode="BATTERY"> <templateId root="216.840.1.267820.06.06.22.4.1" /> <id nullFlavor="NA" /> <code codeSystem="local" code="iTROPI" displayName="TROPONIN I BEDSIDE" /> < statusCode code="completed" /> <component> <observation moodCode= "EVN" classCode="OBS"> <templateId root="216.840.1.618349.1022.4.2 " /> <id nullFlavor="NA" /> <code codeSystem="local" code= "CMETHOD" displayName="METHOD" /> <statusCode code="completed" /> <effectiveTime value="518152470841" /> <value unit="" xsi:type="PQ " value="Bedside" /> <referenceRange> <observationRange> <text /> </observationRange> </referenceRange> </observation> </component> <component> <observation moodCode="EVN" classCode="OBS"> <templateId root= "2.16.840.1.096415.10..22.4.2" /> <id nullFlavor="NA" /> < code codeSystem="local" code="TROPI" displayName="TROPONIN I" /> < statusCode code="completed" /> <effectiveTime value="265860438078" /> <value unit="ng/mL" xsi:type="PQ" value="< 0.04" /> < referenceRange> <observationRange> <text>< 0.11</text > </observationRange> </referenceRange> </observation > </component> </organizer> </entry> <entry> <organizer moodCode= "EVN" classCode="BATTERY"> <templateId root="2.16.840.1.971236.10..22.4.1 " /> <id nullFlavor="NA" /> <code codeSystem="local" code="UA" displayName="URINALYSIS, ROUTINE" /> <statusCode code="completed" /> < component> <observation moodCode="EVN" classCode="OBS"> < templateId root="2.16.840.1.887425.10..22.4.2" /> <id nullFlavor="NA " /> <code codeSystem="local" code="LEUESU" displayName="UA LEUKOCYTE ESTERASE DIPSTICK" /> <statusCode code="completed" /> < effectiveTime value="251027225151" /> <value unit="" xsi:type="PQ" value="NEGATIVE" /> <referenceRange> <observationRange> <text>NEGATIVE</text> </observationRange> </ referenceRange> </observation> </component> <component> <observation moodCode="EVN" classCode="OBS"> <templateId root= "216.840.1.783696.10..22.4.2" /> <id nullFlavor="NA" /> < code codeSystem="local" code="NITRIU" displayName="UA NITRITE DIPSTICK" /> <statusCode code="completed" /> <effectiveTime value="125747161047 " /> <value unit="" xsi:type="PQ" value="NEGATIVE" /> < referenceRange> <observationRange> <text>NEGATIVE</text > </observationRange> </referenceRange> </observation > </component> <component> <observation moodCode="EVN" classCode="OBS"> <templateId root="216.840.1.064676.10...4.2" /> <id nullFlavor="NA" /> <code codeSystem="local" code="PROTEIU " displayName="UA PROTEIN DIPSTICK" /> <statusCode code="completed" /> <effectiveTime value="924783868153" /> <value unit="" xsi: type="PQ" value="NEGATIVE" /> <referenceRange> < observationRange> <text>NEGATIVE</text> </ observationRange> </referenceRange> </observation> </ component> <component> <observation moodCode="EVN" classCode="OBS"> <templateId root="16.840.1.567548.10..22.4.2" /> <id nullFlavor="NA" /> <code codeSystem="local" code="DGLUU" displayName= "UA GLUCOSE DIPSTICK" /> <statusCode code="completed" /> < effectiveTime value="714522610484" /> <value unit="" xsi:type="PQ" value="NEGATIVE" /> <referenceRange> <observationRange> <text>NEGATIVE</text> </observationRange> </ referenceRange> </observation> </component> <component> <observation moodCode="EVN" classCode="OBS"> <templateId root= "216.840.1.583347.10.4.2" /> <id nullFlavor="NA" /> < code codeSystem="local" code="KETONU" displayName="UA KETONE DIPSTICK" /> <statusCode code="completed" /> <effectiveTime value="762938078543 " /> <value unit="" xsi:type="PQ" value="NEGATIVE" /> < referenceRange> <observationRange> <text>NEGATIVE</text > </observationRange> </referenceRange> </observation > </component> <component> <observation moodCode="EVN" classCode="OBS"> <templateId root="10.03.840.1.703671.06.06.22.4.2" /> <id nullFlavor="NA" /> <code codeSystem="local" code="UROBILU " displayName="UA UROBILINOGEN DIPSTICK" /> <statusCode code="completed " /> <effectiveTime value="973513461213" /> <value unit="" xsi :type="PQ" value="NORMAL" /> <referenceRange> < observationRange> <text>NORMAL</text> </observationRange > </referenceRange> </observation> </component> < component> <observation moodCode="EVN" classCode="OBS"> < templateId root="216.840.1.423177.06.06.22.4.2" /> <id nullFlavor="NA " /> <code codeSystem="local" code="BILU" displayName="UA BILIRUBIN DIPSTICK" /> <statusCode code="completed" /> <effectiveTime value="055024093552" /> <value unit="" xsi:type="PQ" value="NEGATIVE" / > <referenceRange> <observationRange> <text> NEGATIVE</text> </observationRange> </referenceRange> </observation> </component> <component> <observation moodCode ="EVN" classCode="OBS"> <templateId root= "216.840.1.746531.10.20.22.4.2" /> <id nullFlavor="NA" /> < code codeSystem="local" code="ADAM" displayName="UA BLOOD DIPSTICK" /> < statusCode code="completed" /> <effectiveTime value="856025689945" /> <value unit="" xsi:type="PQ" value="TRACE" /> < interpretationCode codeSystem="local" code="*" /> <referenceRange> <observationRange> <text>NEGATIVE</text> </ observationRange> </referenceRange> </observation> </ component> <component> <observation moodCode="EVN" classCode="OBS"> <templateId root="10.03.840.1.598631.10..4.2" /> <id nullFlavor="NA" /> <code codeSystem="local" code="SPGRU" displayName= "UA SPECIFIC GRAVITY" /> <statusCode code="completed" /> < effectiveTime value="832466523863" /> <value unit="" xsi:type="PQ" value="1.015" /> <referenceRange> <observationRange> <text>1.015-1.025</text> </observationRange> </ referenceRange> </observation> </component> <component> <observation moodCode="EVN" classCode="OBS"> <templateId root= "16.840.1.816248.10.20.22.4.2" /> <id nullFlavor="NA" /> < code codeSystem="local" code="INGRID" displayName="UR PH" /> <statusCode code="completed" /> <effectiveTime value="794839739935" /> < value unit="" xsi:type="PQ" value="6.0" /> <referenceRange> <observationRange> <text>5.0-7.0</text> </ observationRange> </referenceRange> </observation> </ component> </organizer> </entry> <entry> <organizer moodCode="EVN" classCode="BATTERY"> <templateId root="216.840.1.083830.10...4.1" /> <id nullFlavor="NA" /> <code codeSystem="local" code="UAMICRO" displayName="UA MICROSCOPIC" /> <statusCode code="completed" /> < component> <observation moodCode="EVN" classCode="OBS"> < templateId root="216.840.1.836089.10...4.2" /> <id nullFlavor="NA " /> <code codeSystem="local" code="RBCU" displayName="UA RBC" /> <statusCode code="completed" /> <effectiveTime value="087880294117 " /> <value unit="rbc/hpf" xsi:type="PQ" value="0-3" /> < referenceRange> <observationRange> <text>0 - 3</text> </observationRange> </referenceRange> </observation> </component> <component> <observation moodCode="EVN" classCode= "OBS"> <templateId root="216.840.1.793259.10...4.2" /> < id nullFlavor="NA" /> <code codeSystem="local" code="UAVOL" displayName ="UA VOLUME FOR EXAM" /> <statusCode code="completed" /> < effectiveTime value="755923615634" /> <value unit="mL" xsi:type="PQ" value="12.0" /> <referenceRange> <observationRange> <text>(12mL STD)</text> </observationRange> </ referenceRange> </observation> </component> <component> <observation moodCode="EVN" classCode="OBS"> <templateId root= "216.840.1.028065.22.4.2" /> <id nullFlavor="NA" /> < code codeSystem="local" code="WBCU" displayName="UA WBC" /> < statusCode code="completed" /> <effectiveTime value="078326766543" /> <value unit="wbc/hpf" xsi:type="PQ" value="0-1" /> < referenceRange> <observationRange> <text>0 - 5</text> </observationRange> </referenceRange> </observation> </component> </organizer> </entry> <entry> <organizer moodCode="EVN " classCode="BATTERY"> <templateId root="10.03.840.1.693915.22.4.1" / > <id nullFlavor="NA" /> <code codeSystem="local" code="iCHEM8" displayName="CHEM/HEM PROFILE-BEDSIDE" /> <statusCode code="completed" /> <component> <observation moodCode="EVN" classCode="OBS"> < templateId root="16.840.1.532448.1022.4.2" /> <id nullFlavor="NA " /> <code codeSystem="local" code="K" displayName="POTASSIUM" /> <statusCode code="completed" /> <effectiveTime value="619810647250 " /> <value unit="mmol/L" xsi:type="PQ" value="4.1" /> < referenceRange> <observationRange> <text>3.5-5.3</text> </observationRange> </referenceRange> </observation > </component> <component> <observation moodCode="EVN" classCode="OBS"> <templateId root="216.840.1.007716.10...4.2" /> <id nullFlavor="NA" /> <code codeSystem="local" code="CMETHOD " displayName="METHOD" /> <statusCode code="completed" /> < effectiveTime value="027515795098" /> <value unit="" xsi:type="PQ" value="Bedside" /> <referenceRange> <observationRange> <text /> </observationRange> </referenceRange> </observation> </component> <component> <observation moodCode="EVN" classCode="OBS"> <templateId root= "10.03.840.1.549651.06.06.22.4.2" /> <id nullFlavor="NA" /> < code codeSystem="local" code="GAP" displayName="ANION GAP" /> < statusCode code="completed" /> <effectiveTime value="767427806640" /> <value unit="mmol/L" xsi:type="PQ" value="17" /> < referenceRange> <observationRange> <text>10-20</text> </observationRange> </referenceRange> </observation> </component> <component> <observation moodCode="EVN" classCode= "OBS"> <templateId root="10.03.840.1.992983...4.2" /> < id nullFlavor="NA" /> <code codeSystem="local" code="HMETHOD" displayName="METHOD" /> <statusCode code="completed" /> < effectiveTime value="322088957845" /> <value unit="" xsi:type="PQ" value="Bedside" /> <referenceRange> <observationRange> <text /> </observationRange> </referenceRange> </observation> </component> <component> <observation moodCode="EVN" classCode="OBS"> <templateId root= "16.840.1.060779.10.20.22.4.2" /> <id nullFlavor="NA" /> < code codeSystem="local" code="GLU" displayName="GLUCOSE" /> < statusCode code="completed" /> <effectiveTime value="845647512365" /> <value unit="mg/dL" xsi:type="PQ" value="114" /> < interpretationCode codeSystem="local" code="*" /> <referenceRange> <observationRange> <text>70-99</text> </ observationRange> </referenceRange> </observation> </ component> <component> <observation moodCode="EVN" classCode="OBS"> <templateId root="10.03.840.1.512336.10.22.4.2" /> <id nullFlavor="NA" /> <code codeSystem="local" code="BUN" displayName= "BLOOD UREA NITROGEN" /> <statusCode code="completed" /> < effectiveTime value="309475447553" /> <value unit="mg/dL" xsi:type="PQ " value="15" /> <referenceRange> <observationRange> <text>7-20</text> </observationRange> </referenceRange > </observation> </component> <component> <observation moodCode="EVN" classCode="OBS"> <templateId root= "10.03.840.1.601297.10.20.22.4.2" /> <id nullFlavor="NA" /> < code codeSystem="local" code="CREAT" displayName="CREATININE" /> < statusCode code="completed" /> <effectiveTime value="273639991799" /> <value unit="mg/dL" xsi:type="PQ" value="0.9" /> < referenceRange> <observationRange> <text>0.6-1.0</text> </observationRange> </referenceRange> </observation > </component> <component> <observation moodCode="EVN" classCode="OBS"> <templateId root="216.840.1.855485.10.20.22.4.2" /> <id nullFlavor="NA" /> <code codeSystem="local" code="HGBT" displayName="HEMOGLOBIN" /> <statusCode code="completed" /> < effectiveTime value="545567792865" /> <value unit="gm/dL" xsi:type="PQ " value="11.9" /> <interpretationCode codeSystem="local" code="*" /> <referenceRange> <observationRange> <text>12.0- 16.0</text> </observationRange> </referenceRange> </ observation> </component> <component> <observation moodCode= "EVN" classCode="OBS"> <templateId root="2.16.840.1.699882.10.20.22.4.2 " /> <id nullFlavor="NA" /> <code codeSystem="local" code= "HCTT" displayName="HEMATOCRIT" /> <statusCode code="completed" /> <effectiveTime value="430357942547" /> <value unit="%" xsi: type="PQ" value="35.0" /> <interpretationCode codeSystem="local" code= "*" /> <referenceRange> <observationRange> < text>37.0-47.0</text> </observationRange> </referenceRange> </observation> </component> <component> <observation moodCode="EVN" classCode="OBS"> <templateId root= "216.840.1.828739.10..22.4.2" /> <id nullFlavor="NA" /> < code codeSystem="local" code="NA" displayName="SODIUM" /> <statusCode code="completed" /> <effectiveTime value="623368699075" /> < value unit="mmol/L" xsi:type="PQ" value="132" /> <interpretationCode codeSystem="local" code="*" /> <referenceRange> < observationRange> <text>135-148</text> </ observationRange> </referenceRange> </observation> </ component> <component> <observation moodCode="EVN" classCode="OBS"> <templateId root="216.840.1.567503.10...4.2" /> <id nullFlavor="NA" /> <code codeSystem="local" code="CL" displayName= "CHLORIDE" /> <statusCode code="completed" /> <effectiveTime value="575285279223" /> <value unit="mmol/L" xsi:type="PQ" value="97" / > <interpretationCode codeSystem="local" code="*" /> < referenceRange> <observationRange> <text>98-110</text> </observationRange> </referenceRange> </observation> </component> <component> <observation moodCode="EVN" classCode ="OBS"> <templateId root="16.840.1.799078.10..22.4.2" /> < id nullFlavor="NA" /> <code codeSystem="local" code="CO2" displayName= "CARBON DIOXIDE" /> <statusCode code="completed" /> < effectiveTime value="213666936972" /> <value unit="mmol/L" xsi:type="PQ " value="22" /> <referenceRange> <observationRange> <text>21-32</text> </observationRange> </ referenceRange> </observation> </component> <component> <observation moodCode="EVN" classCode="OBS"> <templateId root= "216.840.1.383657.10.20.22.4.2" /> <id nullFlavor="NA" /> < code codeSystem="local" code="CAION" displayName="CALCIUM IONIZED" /> < statusCode code="completed" /> <effectiveTime value="872648819681" /> <value unit="mg/dL" xsi:type="PQ" value="4.7" /> < referenceRange> <observationRange> <text>4.5-5.3</text> </observationRange> </referenceRange> </observation > </component> </organizer> </entry> <entry> <organizer moodCode= "EVN" classCode="BATTERY"> <templateId root="2.16.840.1.050734.10..22.4.1 " /> <id nullFlavor="NA" /> <code codeSystem="local" code="WET" displayName="WET MOUNT" /> <statusCode code="completed" /> <component > <observation moodCode="EVN" classCode="OBS"> <templateId root= "16.840.1.493472.10..22.4.2" /> <id nullFlavor="NA" /> < code codeSystem="local" code="MB" displayName="Microbiology" /> < statusCode code="completed" /> <effectiveTime value="276940658870" /> <value xsi:type="ST" value="<pre><b>WET MOUNT</b> See BelowWET MOUNT(F ) Cosme Date/Time: 04/27/2016 : Irvin Date/Time: 04/27/2016 18:42SOURCE: VAGINALSPEC DESC: CLUE CELLSNO CLUE CELLS SEENTRICHOMONASNO TRICHOMONAS SEENWBCMANY WBCYEASTNO [facility] [place] [facility] [address]</pre>" /> <referenceRange > <observationRange> <text /> </ observationRange> </referenceRange> </observation> </ component> </organizer> </entry> <entry> <organizer moodCode="EVN" classCode="BATTERY"> <templateId root="2.16.840.1.762709.10..22.4.1" /> <id nullFlavor="NA" /> <code codeSystem="local" code="UA" displayName= "URINALYSIS, ROUTINE" /> <statusCode code="completed" /> <component> <observation moodCode="EVN" classCode="OBS"> <templateId root= "2.16.840.1.566068.10..22.4.2" /> <id nullFlavor="NA" /> < code codeSystem="local" code="LEUESU" displayName="UA LEUKOCYTE ESTERASE DIPSTICK" /> <statusCode code="completed" /> <effectiveTime value="513336156744" /> <value unit="" xsi:type="PQ" value="TRACE" /> <referenceRange> <observationRange> <text> NEGATIVE</text> </observationRange> </referenceRange> </observation> </component> <component> <observation moodCode ="EVN" classCode="OBS"> <templateId root= "2.16.840.1.083985.10..22.4.2" /> <id nullFlavor="NA" /> < code codeSystem="local" code="NITRIU" displayName="UA NITRITE DIPSTICK" /> <statusCode code="completed" /> <effectiveTime value="380329349329 " /> <value unit="" xsi:type="PQ" value="NEGATIVE" /> < referenceRange> <observationRange> <text>NEGATIVE</text > </observationRange> </referenceRange> </observation > </component> <component> <observation moodCode="EVN" classCode="OBS"> <templateId root="10.03.840.1.510408.10.4.2" /> <id nullFlavor="NA" /> <code codeSystem="local" code="PROTEIU " displayName="UA PROTEIN DIPSTICK" /> <statusCode code="completed" /> <effectiveTime value="445619383507" /> <value unit="" xsi: type="PQ" value="NEGATIVE" /> <referenceRange> < observationRange> <text>NEGATIVE</text> </ observationRange> </referenceRange> </observation> </ component> <component> <observation moodCode="EVN" classCode="OBS"> <templateId root="840.1.713713.06.06.22.4.2" /> <id nullFlavor="NA" /> <code codeSystem="local" code="DGLUU" displayName= "UA GLUCOSE DIPSTICK" /> <statusCode code="completed" /> < effectiveTime value="308802687529" /> <value unit="" xsi:type="PQ" value="NEGATIVE" /> <referenceRange> <observationRange> <text>NEGATIVE</text> </observationRange> </ referenceRange> </observation> </component> <component> <observation moodCode="EVN" classCode="OBS"> <templateId root= "840.1.019207.10.4.2" /> <id nullFlavor="NA" /> < code codeSystem="local" code="KETONU" displayName="UA KETONE DIPSTICK" /> <statusCode code="completed" /> <effectiveTime value="056464661070 " /> <value unit="" xsi:type="PQ" value="NEGATIVE" /> < referenceRange> <observationRange> <text>NEGATIVE</text > </observationRange> </referenceRange> </observation > </component> <component> <observation moodCode="EVN" classCode="OBS"> <templateId root="16.840.1.463892.10.4.2" /> <id nullFlavor="NA" /> <code codeSystem="local" code="UROBILU " displayName="UA UROBILINOGEN DIPSTICK" /> <statusCode code="completed " /> <effectiveTime value="886337501146" /> <value unit="" xsi :type="PQ" value="NORMAL" /> <referenceRange> < observationRange> <text>NORMAL</text> </observationRange > </referenceRange> </observation> </component> < component> <observation moodCode="EVN" classCode="OBS"> < templateId root="10.03.840.1.390610.06.06.22.4.2" /> <id nullFlavor="NA " /> <code codeSystem="local" code="BILU" displayName="UA BILIRUBIN DIPSTICK" /> <statusCode code="completed" /> <effectiveTime value="206394512250" /> <value unit="" xsi:type="PQ" value="NEGATIVE" / > <referenceRange> <observationRange> <text> NEGATIVE</text> </observationRange> </referenceRange> </observation> </component> <component> <observation moodCode ="EVN" classCode="OBS"> <templateId root= "16.840.1.579765.22.4.2" /> <id nullFlavor="NA" /> < code codeSystem="local" code="ADAM" displayName="UA BLOOD DIPSTICK" /> < statusCode code="completed" /> <effectiveTime value="808017538844" /> <value unit="" xsi:type="PQ" value="TRACE" /> < interpretationCode codeSystem="local" code="*" /> <referenceRange> <observationRange> <text>NEGATIVE</text> </ observationRange> </referenceRange> </observation> </ component> <component> <observation moodCode="EVN" classCode="OBS"> <templateId root="2.16.840.1.650272.10...4.2" /> <id nullFlavor="NA" /> <code codeSystem="local" code="SPGRU" displayName= "UA SPECIFIC GRAVITY" /> <statusCode code="completed" /> < effectiveTime value="362980135577" /> <value unit="" xsi:type="PQ" value="1.025" /> <referenceRange> <observationRange> <text>1.015-1.025</text> </observationRange> </ referenceRange> </observation> </component> <component> <observation moodCode="EVN" classCode="OBS"> <templateId root= "2.16.840.1.121225.10..22.4.2" /> <id nullFlavor="NA" /> < code codeSystem="local" code="INGRID" displayName="UR PH" /> <statusCode code="completed" /> <effectiveTime value="062849753821" /> < value unit="" xsi:type="PQ" value="6.0" /> <referenceRange> <observationRange> <text>5.0-7.0</text> </ observationRange> </referenceRange> </observation> </ component> </organizer> </entry> <entry> <organizer moodCode="EVN" classCode="BATTERY"> <templateId root="16.840.1.955155.10..22.4.1" /> <id nullFlavor="NA" /> <code codeSystem="local" code="UAMICRO" displayName="UA MICROSCOPIC" /> <statusCode code="completed" /> < component> <observation moodCode="EVN" classCode="OBS"> < templateId root="10.03.840.1.399493.06.06.22.4.2" /> <id nullFlavor="NA " /> <code codeSystem="local" code="MUCUSU" displayName="UA MUCUS" /> <statusCode code="completed" /> <effectiveTime value= "932769497763" /> <value unit="" xsi:type="PQ" value="1+" /> < referenceRange> <observationRange> <text>NEG TO 1+</text > </observationRange> </referenceRange> </observation > </component> <component> <observation moodCode="EVN" classCode="OBS"> <templateId root="10.03.840.1.404012.06.06.22.4.2" /> <id nullFlavor="NA" /> <code codeSystem="local" code="RBCU" displayName="UA RBC" /> <statusCode code="completed" /> < effectiveTime value="708221892863" /> <value unit="rbc/hpf" xsi:type= "PQ" value="0-3" /> <referenceRange> <observationRange> <text>0 - 3</text> </observationRange> </ referenceRange> </observation> </component> <component> <observation moodCode="EVN" classCode="OBS"> <templateId root= "10.03.840.1.264314.06.06.22.4.2" /> <id nullFlavor="NA" /> < code codeSystem="local" code="UAVOL" displayName="UA VOLUME FOR EXAM" /> <statusCode code="completed" /> <effectiveTime value="444860815397" /> <value unit="mL" xsi:type="PQ" value="12.0" /> < referenceRange> <observationRange> <text>(12mL STD)</ text> </observationRange> </referenceRange> </ observation> </component> <component> <observation moodCode= "EVN" classCode="OBS"> <templateId root="840.1.039061.06.06.22.4.2 " /> <id nullFlavor="NA" /> <code codeSystem="local" code= "WBCU" displayName="UA WBC" /> <statusCode code="completed" /> <effectiveTime value="886583454533" /> <value unit="wbc/hpf" xsi:type ="PQ" value="2-5" /> <referenceRange> <observationRange> <text>0 - 5</text> </observationRange> </ referenceRange> </observation> </component> </organizer> </entry > <entry> <organizer moodCode="EVN" classCode="BATTERY"> <templateId root="840.1.923858.06.06.22.4.1" /> <id nullFlavor="NA" /> <code codeSystem="local" code="CHL" displayName="CHLAMYDIA DNA BY PCR" /> < statusCode code="completed" /> <component> <observation moodCode= "EVN" classCode="OBS"> <templateId root="10.03.840.1.197611.10.4.2 " /> <id nullFlavor="NA" /> <code codeSystem="local" code="MB " displayName="Microbiology" /> <statusCode code="completed" /> <effectiveTime value="[id number]" /> <value xsi:type="ST" value="< pre><b>CHLAMYDIA DNA BY PCR - GONORRHOEA DNA BY PCR</b> See BelowCHLAMYDIA DNA BY PCR(F) Cosme Date/Time: 04/27/2016 18:15 Irvin Date/Time: 04/29/2016 13:36SOURCE: URINESPEC DESC: [address] [id number] BelowGONORRHOEA DNA BY PCR(F) Cosme Date/Time: 04/27/2016 18:15 Irvin Date/ Time: 04/29/2016 13:36SOURCE: URINESPEC DESC: [address] [address]</pre>" /> <referenceRange> <observationRange> <text /> </observationRange> </referenceRange> </observation> </component> </organizer > </entry> <entry> <organizer moodCode="EVN" classCode="BATTERY"> < templateId root="2.16.840.1.553352.10.20.22.4.1" /> <id nullFlavor="NA" /> <code codeSystem="local" code="PREGU" displayName="UR TEST" /> <statusCode code="completed" /> <component> <observation moodCode="EVN" classCode="OBS"> <templateId root= "2.16.840.1.234254.10.20.22.4.2" /> <id nullFlavor="NA" /> < code codeSystem="local" code="PREGU" displayName="UR TEST" /> <statusCode code="completed" /> <effectiveTime value="[id number]" / > <value unit="" xsi:type="PQ" value="NEGATIVE" /> < referenceRange> <observationRange> <text>NEGATIVE</text > </observationRange> </referenceRange> </observation > </component> </organizer> </entry> <entry> <organizer moodCode= "EVN" classCode="BATTERY"> <templateId root="2.16.840.1.575688.10..22.4.1 " /> <id nullFlavor="NA" /> <code codeSystem="local" code="GRAM" displayName="GRAM STAIN - CHLAMYDIA DNA BY PCR" /> <statusCode code= "completed" /> <component> <observation moodCode="EVN" classCode= "OBS"> <templateId root="2.16.840.1.619538.10...4.2" /> < id nullFlavor="NA" /> <code codeSystem="local" code="MB" displayName= "Microbiology" /> <statusCode code="completed" /> < effectiveTime value="[id number]" /> <value xsi:type="ST" value="<pre> <b>GRAM STAIN</b> See BelowGRAM STAIN(F) Cosme Date/Time: 2015 18:22 Irvin Date/Time: 04/27/2016 18:48SOURCE : VAGINALSPEC DESC: GRAM STAINMODERATE NEUTROPHILSRARE MIXED BACTERIAL FLORANO ORGANISMS SEEN RESEMBLING NEISSERIA [facility] [place] [address]</pre>" /> <referenceRange> < observationRange> <text /> </observationRange> </referenceRange> </observation> </component> </organizer> </ entry> <entry> <organizer moodCode="EVN" classCode="BATTERY"> < templateId root="2.16.840.1.287411.10..22.4.1" /> <id nullFlavor="NA" /> <code codeSystem="local" code="CBCD" displayName="CBC W/DIFF" /> < statusCode code="completed" /> <component> <observation moodCode= "EVN" classCode="OBS"> <templateId root="10.03.840.1.925447.10.22.4.2 " /> <id nullFlavor="NA" /> <code codeSystem="local" code="BA# " displayName="BASOPHIL #" /> <statusCode code="completed" /> <effectiveTime value="" /> <value unit="k/cumm" xsi:type= "PQ" value="0.1" /> <referenceRange> <observationRange> <text>0.0-0.2</text> </observationRange> </ referenceRange> </observation> </component> <component> <observation moodCode="EVN" classCode="OBS"> <templateId root= "10.03.840.1.878420.06.06.22.4.2" /> <id nullFlavor="NA" /> < code codeSystem="local" code="BA%" displayName="BASOPHIL %" /> <statusCode code="completed" /> <effectiveTime value="" /> <value unit="%" xsi:type="PQ" value="1" /> < referenceRange> <observationRange> <text>0-1</text> </observationRange> </referenceRange> </observation> </component> <component> <observation moodCode="EVN" classCode= "OBS"> <templateId root="10.03.840.1.421075.10.22.4.2" /> < id nullFlavor="NA" /> <code codeSystem="local" code="EO#" displayName= "EOSINOPHIL #" /> <statusCode code="completed" /> < effectiveTime value="" /> <value unit="k/cumm" xsi:type="PQ " value="0.2" /> <referenceRange> <observationRange> <text>0.1-0.5</text> </observationRange> </ referenceRange> </observation> </component> <component> <observation moodCode="EVN" classCode="OBS"> <templateId root= "16.840.1.698633.10..4.2" /> <id nullFlavor="NA" /> < code codeSystem="local" code="EO%" displayName="EOSINOPHIL %" /> <statusCode code="completed" /> <effectiveTime value="" /> <value unit="%" xsi:type="PQ" value="3" /> < referenceRange> <observationRange> <text>2-4</text> </observationRange> </referenceRange> </observation> </component> <component> <observation moodCode="EVN" classCode= "OBS"> <templateId root="10.03.840.1.897331.10..4.2" /> < id nullFlavor="NA" /> <code codeSystem="local" code="GR#" displayName= "GRANULOCYTE #" /> <statusCode code="completed" /> < effectiveTime value="" /> <value unit="k/cumm" xsi:type="PQ " value="2.9" /> <referenceRange> <observationRange> <text>2.0-9.0</text> </observationRange> </ referenceRange> </observation> </component> <component> <observation moodCode="EVN" classCode="OBS"> <templateId root= "10.03.840.1.922429.10..4.2" /> <id nullFlavor="NA" /> < code codeSystem="local" code="GR%" displayName="GRANULOCYTE %" /> <statusCode code="completed" /> <effectiveTime value=" " /> <value unit="%" xsi:type="PQ" value="52" /> < referenceRange> <observationRange> <text>50-75</text> </observationRange> </referenceRange> </observation> </component> <component> <observation moodCode="EVN" classCode= "OBS"> <templateId root="2.16.840.1.325613.10.4.2" /> < id nullFlavor="NA" /> <code codeSystem="local" code="LY#" displayName= "LYMPHOCYTE #" /> <statusCode code="completed" /> < effectiveTime value="" /> <value unit="k/cumm" xsi:type="PQ " value="1.7" /> <referenceRange> <observationRange> <text>1.0-4.0</text> </observationRange> </ referenceRange> </observation> </component> <component> <observation moodCode="EVN" classCode="OBS"> <templateId root= "2.16.840.1.510515.104.2" /> <id nullFlavor="NA" /> < code codeSystem="local" code="LY%" displayName="LYMPHOCYTE %" /> <statusCode code="completed" /> <effectiveTime value="" /> <value unit="%" xsi:type="PQ" value="31" /> < interpretationCode codeSystem="local" code="*" /> <referenceRange> <observationRange> <text>20-30</text> </ observationRange> </referenceRange> </observation> </ component> <component> <observation moodCode="EVN" classCode="OBS"> <templateId root="2.16.840.1.323181.10.22.4.2" /> <id nullFlavor="NA" /> <code codeSystem="local" code="MCH" displayName= "MEAN CELL HGB" /> <statusCode code="completed" /> < effectiveTime value="" /> <value unit="pg" xsi:type="PQ" value="23.4" /> <interpretationCode codeSystem="local" code="*" /> <referenceRange> <observationRange> <text>27.0- 33.0</text> </observationRange> </referenceRange> </ observation> </component> <component> <observation moodCode= "EVN" classCode="OBS"> <templateId root="10.03.840.1.130971.1022.4.2 " /> <id nullFlavor="NA" /> <code codeSystem="local" code= "MCHC" displayName="MEAN CELL HGB CONCENTRATION" /> <statusCode code= "completed" /> <effectiveTime value="" /> <value unit="g/dL" xsi:type="PQ" value="30.6" /> <interpretationCode codeSystem="local" code="*" /> <referenceRange> < observationRange> <text>32.0-37.0</text> </ observationRange> </referenceRange> </observation> </ component> <component> <observation moodCode="EVN" classCode="OBS"> <templateId root="840.1.407590.10.22.4.2" /> <id nullFlavor="NA" /> <code codeSystem="local" code="MCV" displayName= "MEAN CELL VOLUME" /> <statusCode code="completed" /> < effectiveTime value="" /> <value unit="fl" xsi:type="PQ" value="76.3" /> <interpretationCode codeSystem="local" code="*" /> <referenceRange> <observationRange> <text>80.0- 100.0</text> </observationRange> </referenceRange> </ observation> </component> <component> <observation moodCode= "EVN" classCode="OBS"> <templateId root="216.840.1.914708.10..22.4.2 " /> <id nullFlavor="NA" /> <code codeSystem="local" code="MO# " displayName="MONOCYTE #" /> <statusCode code="completed" /> <effectiveTime value="" /> <value unit="k/cumm" xsi:type= "PQ" value="0.7" /> <referenceRange> <observationRange> <text>0.1-1.0</text> </observationRange> </ referenceRange> </observation> </component> <component> <observation moodCode="EVN" classCode="OBS"> <templateId root= "10.03.840.1.723129.10..4.2" /> <id nullFlavor="NA" /> < code codeSystem="local" code="MO%" displayName="MONOCYTE %" /> <statusCode code="completed" /> <effectiveTime value="" /> <value unit="%" xsi:type="PQ" value="12" /> < interpretationCode codeSystem="local" code="*" /> <referenceRange> <observationRange> <text>4-6</text> </ observationRange> </referenceRange> </observation> </ component> <component> <observation moodCode="EVN" classCode="OBS"> <templateId root="16.840.1.844454.10...4.2" /> <id nullFlavor="NA" /> <code codeSystem="local" code="RBC" displayName=" RED BLOOD CELL" /> <statusCode code="completed" /> < effectiveTime value="" /> <value unit="m/cumm" xsi:type="PQ " value="3.89" /> <interpretationCode codeSystem="local" code="*" /> <referenceRange> <observationRange> <text>4.00- 6.00</text> </observationRange> </referenceRange> </ observation> </component> <component> <observation moodCode= "EVN" classCode="OBS"> <templateId root="2.16.840.1.600720.10..22.4.2 " /> <id nullFlavor="NA" /> <code codeSystem="local" code="RDW " displayName="RED CELL DISTRIBUTION WIDTH" /> <statusCode code= "completed" /> <effectiveTime value="" /> <value unit="%" xsi:type="PQ" value="15.7" /> <interpretationCode codeSystem="local" code="*" /> <referenceRange> < observationRange> <text>11.0-15.6</text> </ observationRange> </referenceRange> </observation> </ component> <component> <observation moodCode="EVN" classCode="OBS"> <templateId root="216.840.1.858120.10..22.4.2" /> <id nullFlavor="NA" /> <code codeSystem="local" code="WBC" displayName= "WHITE BLOOD CELL" /> <statusCode code="completed" /> < effectiveTime value="" /> <value unit="k/cumm" xsi:type="PQ " value="5.6" /> <referenceRange> <observationRange> <text>5.0-10.0</text> </observationRange> </ referenceRange> </observation> </component> <component> <observation moodCode="EVN" classCode="OBS"> <templateId root= "16.840.1.339460.10.2022.4.2" /> <id nullFlavor="NA" /> < code codeSystem="local" code="HGBT" displayName="HEMOGLOBIN" /> < statusCode code="completed" /> <effectiveTime value="" /> <value unit="gm/dL" xsi:type="PQ" value="9.1" /> < interpretationCode codeSystem="local" code="*" /> <referenceRange> <observationRange> <text>12.0-16.0</text> </ observationRange> </referenceRange> </observation> </ component> <component> <observation moodCode="EVN" classCode="OBS"> <templateId root="10.03.840.1.734790.10.4.2" /> <id nullFlavor="NA" /> <code codeSystem="local" code="HCTT" displayName= "HEMATOCRIT" /> <statusCode code="completed" /> < effectiveTime value="" /> <value unit="%" xsi:type="PQ " value="29.7" /> <interpretationCode codeSystem="local" code="*" /> <referenceRange> <observationRange> <text>37.0- 47.0</text> </observationRange> </referenceRange> </ observation> </component> <component> <observation moodCode= "EVN" classCode="OBS"> <templateId root="10.03.840.1.833936.10.2022.4.2 " /> <id nullFlavor="NA" /> <code codeSystem="local" code="PLT " displayName="PLATELET COUNT" /> <statusCode code="completed" /> <effectiveTime value="" /> <value unit="k/cumm" xsi: type="PQ" value="389" /> <referenceRange> <observationRange > <text>150-400</text> </observationRange> </ referenceRange> </observation> </component> </organizer> </entry > <entry> <organizer moodCode="EVN" classCode="BATTERY"> <templateId root="216.840.1.467988.10..22.4.1" /> <id nullFlavor="NA" /> <code codeSystem="local" code="iCHEM8" displayName="CHEM/HEM PROFILE-BEDSIDE" /> <statusCode code="completed" /> <component> <observation moodCode= "EVN" classCode="OBS"> <templateId root="216.840.1.834441.10...4.2 " /> <id nullFlavor="NA" /> <code codeSystem="local" code="K" displayName="POTASSIUM" /> <statusCode code="completed" /> < effectiveTime value="" /> <value unit="mmol/L" xsi:type="PQ " value="4.0" /> <referenceRange> <observationRange> <text>3.5-5.3</text> </observationRange> </ referenceRange> </observation> </component> <component> <observation moodCode="EVN" classCode="OBS"> <templateId root= "16.840.1.402582.10...4.2" /> <id nullFlavor="NA" /> < code codeSystem="local" code="CMETHOD" displayName="METHOD" /> < statusCode code="completed" /> <effectiveTime value="" /> <value unit="" xsi:type="PQ" value="Bedside" /> < referenceRange> <observationRange> <text /> < /observationRange> </referenceRange> </observation> </ component> <component> <observation moodCode="EVN" classCode="OBS"> <templateId root="216.840.1.333768.10.22.4.2" /> <id nullFlavor="NA" /> <code codeSystem="local" code="GAP" displayName= "ANION GAP" /> <statusCode code="completed" /> <effectiveTime value="" /> <value unit="mmol/L" xsi:type="PQ" value="15" / > <referenceRange> <observationRange> <text>10- 20</text> </observationRange> </referenceRange> </ observation> </component> <component> <observation moodCode= "EVN" classCode="OBS"> <templateId root="16.840.1.003864.10.4.2 " /> <id nullFlavor="NA" /> <code codeSystem="local" code= "HMETHOD" displayName="METHOD" /> <statusCode code="completed" /> <effectiveTime value="" /> <value unit="" xsi:type="PQ " value="Bedside" /> <referenceRange> <observationRange> <text /> </observationRange> </referenceRange> </observation> </component> <component> <observation moodCode="EVN" classCode="OBS"> <templateId root= "16.840.1.604658.1022.4.2" /> <id nullFlavor="NA" /> < code codeSystem="local" code="GLU" displayName="GLUCOSE" /> < statusCode code="completed" /> <effectiveTime value="[id number]" /> <value unit="mg/dL" xsi:type="PQ" value="158" /> < interpretationCode codeSystem="local" code="*" /> <referenceRange> <observationRange> <text>70-99</text> </ observationRange> </referenceRange> </observation> </ component> <component> <observation moodCode="EVN" classCode="OBS"> <templateId root="216.840.1.340304.22.4.2" /> <id nullFlavor="NA" /> <code codeSystem="local" code="BUN" displayName= "BLOOD UREA NITROGEN" /> <statusCode code="completed" /> < effectiveTime value="" /> <value unit="mg/dL" xsi:type="PQ " value="27" /> <interpretationCode codeSystem="local" code="*" /> <referenceRange> <observationRange> <text>7-20</ text> </observationRange> </referenceRange> </ observation> </component> <component> <observation moodCode= "EVN" classCode="OBS"> <templateId root="216.840.1.331576.06.06.22.4.2 " /> <id nullFlavor="NA" /> <code codeSystem="local" code= "CREAT" displayName="CREATININE" /> <statusCode code="completed" /> <effectiveTime value="" /> <value unit="mg/dL" xsi: type="PQ" value="1.4" /> <interpretationCode codeSystem="local" code="* " /> <referenceRange> <observationRange> <text> 0.6-1.0</text> </observationRange> </referenceRange> </observation> </component> <component> <observation moodCode= "EVN" classCode="OBS"> <templateId root="10.03.840.1.042088.10.20.22.4.2 " /> <id nullFlavor="NA" /> <code codeSystem="local" code= "HGBT" displayName="HEMOGLOBIN" /> <statusCode code="completed" /> <effectiveTime value="" /> <value unit="gm/dL" xsi: type="PQ" value="10.2" /> <interpretationCode codeSystem="local" code= "*" /> <referenceRange> <observationRange> < text>12.0-16.0</text> </observationRange> </referenceRange> </observation> </component> <component> <observation moodCode="EVN" classCode="OBS"> <templateId root= "10.03.840.1.862250.1022.4.2" /> <id nullFlavor="NA" /> < code codeSystem="local" code="HCTT" displayName="HEMATOCRIT" /> < statusCode code="completed" /> <effectiveTime value="" /> <value unit="%" xsi:type="PQ" value="30.0" /> < interpretationCode codeSystem="local" code="*" /> <referenceRange> <observationRange> <text>37.0-47.0</text> </ observationRange> </referenceRange> </observation> </ component> <component> <observation moodCode="EVN" classCode="OBS"> <templateId root="10.03.840.1.114772.10.20.22.4.2" /> <id nullFlavor="NA" /> <code codeSystem="local" code="NA" displayName= "SODIUM" /> <statusCode code="completed" /> <effectiveTime value="618361373114" /> <value unit="mmol/L" xsi:type="PQ" value="131" /> <interpretationCode codeSystem="local" code="*" /> < referenceRange> <observationRange> <text>135-148</text> </observationRange> </referenceRange> </observation > </component> <component> <observation moodCode="EVN" classCode="OBS"> <templateId root="216.840.1.190627.10.20.22.4.2" /> <id nullFlavor="NA" /> <code codeSystem="local" code="CL" displayName="CHLORIDE" /> <statusCode code="completed" /> < effectiveTime value="" /> <value unit="mmol/L" xsi:type="PQ " value="97" /> <interpretationCode codeSystem="local" code="*" /> <referenceRange> <observationRange> <text>98-110</ text> </observationRange> </referenceRange> </ observation> </component> <component> <observation moodCode= "EVN" classCode="OBS"> <templateId root="10.03.840.1.145265.10..4.2 " /> <id nullFlavor="NA" /> <code codeSystem="local" code="CO2 " displayName="CARBON DIOXIDE" /> <statusCode code="completed" /> <effectiveTime value="" /> <value unit="mmol/L" xsi: type="PQ" value="24" /> <referenceRange> <observationRange> <text>21-32</text> </observationRange> </ referenceRange> </observation> </component> <component> <observation moodCode="EVN" classCode="OBS"> <templateId root= "10.03.840.1.682449.10.20.22.4.2" /> <id nullFlavor="NA" /> < code codeSystem="local" code="CAION" displayName="CALCIUM IONIZED" /> < statusCode code="completed" /> <effectiveTime value="" /> <value unit="mg/dL" xsi:type="PQ" value="4.8" /> < referenceRange> <observationRange> <text>4.5-5.3</text> </observationRange> </referenceRange> </observation > </component> </organizer> </entry> <entry> <organizer moodCode= "EVN" classCode="BATTERY"> <templateId root="216.840.1.238889.10..22.4.1 " /> <id nullFlavor="NA" /> <code codeSystem="local" code="iTROPI" displayName="TROPONIN I BEDSIDE" /> <statusCode code="completed" /> < component> <observation moodCode="EVN" classCode="OBS"> < templateId root="216.840.1.218024.10..22.4.2" /> <id nullFlavor="NA " /> <code codeSystem="local" code="CMETHOD" displayName="METHOD" /> <statusCode code="completed" /> <effectiveTime value= "" /> <value unit="" xsi:type="PQ" value="Bedside" /> <referenceRange> <observationRange> <text /> </observationRange> </referenceRange> </observation> </component> <component> <observation moodCode="EVN" classCode="OBS "> <templateId root="216.840.1.717360.10..22.4.2" /> <id nullFlavor="NA" /> <code codeSystem="local" code="TROPI" displayName= "TROPONIN I" /> <statusCode code="completed" /> < effectiveTime value="" /> <value unit="ng/mL" xsi:type="PQ " value="< 0.04" /> <referenceRange> <observationRange> <text>< 0.11</text> </observationRange> </ referenceRange> </observation> </component> </organizer> </entry > <entry> <organizer moodCode="EVN" classCode="BATTERY"> <templateId root="10.03.840.1.357582.10..22.4.1" /> <id nullFlavor="NA" /> <code codeSystem="local" code="DIMER" displayName="D-DIMER QUANT" /> <statusCode code="completed" /> <component> <observation moodCode="EVN" classCode="OBS"> <templateId root="10.03.840.1.215580.10...4.2" /> <id nullFlavor="NA" /> <code codeSystem="local" code="DIMER" displayName="D-DIMER QUANT" /> <statusCode code="completed" /> <effectiveTime value="[id number]" /> <value unit="ng/mL" xsi:type= "PQ" value="664" /> <interpretationCode codeSystem="local" code="*" /> <referenceRange> <observationRange> <text>0- 229</text> </observationRange> </referenceRange> </ observation> </component> </organizer> </entry> <entry> <organizer moodCode="EVN" classCode="BATTERY"> <templateId root= "10.03.840.1.020144.10..22.4.1" /> <id nullFlavor="NA" /> <code codeSystem="local" code="iCHEM8" displayName="CHEM/HEM PROFILE-BEDSIDE" /> <statusCode code="completed" /> <component> <observation moodCode= "EVN" classCode="OBS"> <templateId root="840.1.315172.10..22.4.2 " /> <id nullFlavor="NA" /> <code codeSystem="local" code="K" displayName="POTASSIUM" /> <statusCode code="completed" /> < effectiveTime value="811726533574" /> <value unit="mmol/L" xsi:type="PQ " value="4.2" /> <referenceRange> <observationRange> <text>3.5-5.3</text> </observationRange> </ referenceRange> </observation> </component> <component> <observation moodCode="EVN" classCode="OBS"> <templateId root= "216.840.1.894318...22.4.2" /> <id nullFlavor="NA" /> < code codeSystem="local" code="CMETHOD" displayName="METHOD" /> < statusCode code="completed" /> <effectiveTime value="081320950859" /> <value unit="" xsi:type="PQ" value="Bedside" /> < referenceRange> <observationRange> <text /> < /observationRange> </referenceRange> </observation> </ component> <component> <observation moodCode="EVN" classCode="OBS"> <templateId root="216.840.1.882213...22.4.2" /> <id nullFlavor="NA" /> <code codeSystem="local" code="GAP" displayName= "ANION GAP" /> <statusCode code="completed" /> <effectiveTime value="437558131365" /> <value unit="mmol/L" xsi:type="PQ" value="15" / > <referenceRange> <observationRange> <text>10- 20</text> </observationRange> </referenceRange> </ observation> </component> <component> <observation moodCode= "EVN" classCode="OBS"> <templateId root="216.840.1.126972.10..22.4.2 " /> <id nullFlavor="NA" /> <code codeSystem="local" code= "HMETHOD" displayName="METHOD" /> <statusCode code="completed" /> <effectiveTime value="" /> <value unit="" xsi:type="PQ " value="Bedside" /> <referenceRange> <observationRange> <text /> </observationRange> </referenceRange> </observation> </component> <component> <observation moodCode="EVN" classCode="OBS"> <templateId root= "216.840.1.407922.10..4.2" /> <id nullFlavor="NA" /> < code codeSystem="local" code="GLU" displayName="GLUCOSE" /> < statusCode code="completed" /> <effectiveTime value="" /> <value unit="mg/dL" xsi:type="PQ" value="122" /> < interpretationCode codeSystem="local" code="*" /> <referenceRange> <observationRange> <text>70-99</text> </ observationRange> </referenceRange> </observation> </ component> <component> <observation moodCode="EVN" classCode="OBS"> <templateId root="16.840.1.096835.10..4.2" /> <id nullFlavor="NA" /> <code codeSystem="local" code="BUN" displayName= "BLOOD UREA NITROGEN" /> <statusCode code="completed" /> < effectiveTime value="054399961053" /> <value unit="mg/dL" xsi:type="PQ " value="15" /> <referenceRange> <observationRange> <text>7-20</text> </observationRange> </referenceRange > </observation> </component> <component> <observation moodCode="EVN" classCode="OBS"> <templateId root= "2.16.840.1.623358.10.4.2" /> <id nullFlavor="NA" /> < code codeSystem="local" code="CREAT" displayName="CREATININE" /> < statusCode code="completed" /> <effectiveTime value="" /> <value unit="mg/dL" xsi:type="PQ" value="0.9" /> < referenceRange> <observationRange> <text>0.6-1.0</text> </observationRange> </referenceRange> </observation > </component> <component> <observation moodCode="EVN" classCode="OBS"> <templateId root="216.840.1.833137.06.06.22.4.2" /> <id nullFlavor="NA" /> <code codeSystem="local" code="HGBT" displayName="HEMOGLOBIN" /> <statusCode code="completed" /> < effectiveTime value="" /> <value unit="gm/dL" xsi:type="PQ " value="9.2" /> <interpretationCode codeSystem="local" code="*" /> <referenceRange> <observationRange> <text>12.0- 16.0</text> </observationRange> </referenceRange> </ observation> </component> <component> <observation moodCode= "EVN" classCode="OBS"> <templateId root="216.840.1.095249.06.06.22.4.2 " /> <id nullFlavor="NA" /> <code codeSystem="local" code= "HCTT" displayName="HEMATOCRIT" /> <statusCode code="completed" /> <effectiveTime value="" /> <value unit="%" xsi: type="PQ" value="27.0" /> <interpretationCode codeSystem="local" code= "*" /> <referenceRange> <observationRange> < text>37.0-47.0</text> </observationRange> </referenceRange> </observation> </component> <component> <observation moodCode="EVN" classCode="OBS"> <templateId root= "10.03.840.1.793950.10.22.4.2" /> <id nullFlavor="NA" /> < code codeSystem="local" code="NA" displayName="SODIUM" /> <statusCode code="completed" /> <effectiveTime value="" /> < value unit="mmol/L" xsi:type="PQ" value="135" /> <referenceRange> <observationRange> <text>135-148</text> </ observationRange> </referenceRange> </observation> </ component> <component> <observation moodCode="EVN" classCode="OBS"> <templateId root="10.03.840.1.115409..22.4.2" /> <id nullFlavor="NA" /> <code codeSystem="local" code="CL" displayName= "CHLORIDE" /> <statusCode code="completed" /> <effectiveTime value="" /> <value unit="mmol/L" xsi:type="PQ" value="100" /> <referenceRange> <observationRange> <text>98 -110</text> </observationRange> </referenceRange> </ observation> </component> <component> <observation moodCode= "EVN" classCode="OBS"> <templateId root="10.03.840.1.205878.10.2022.4.2 " /> <id nullFlavor="NA" /> <code codeSystem="local" code="CO2 " displayName="CARBON DIOXIDE" /> <statusCode code="completed" /> <effectiveTime value="417127368936" /> <value unit="mmol/L" xsi: type="PQ" value="24" /> <referenceRange> <observationRange> <text>21-32</text> </observationRange> </ referenceRange> </observation> </component> <component> <observation moodCode="EVN" classCode="OBS"> <templateId root= "16.840.1.201836.10..4.2" /> <id nullFlavor="NA" /> < code codeSystem="local" code="CAION" displayName="CALCIUM IONIZED" /> < statusCode code="completed" /> <effectiveTime value="535781087218" /> <value unit="mg/dL" xsi:type="PQ" value="4.8" /> < referenceRange> <observationRange> <text>4.5-5.3</text> </observationRange> </referenceRange> </observation > </component> </organizer> </entry> <entry> <organizer moodCode= "EVN" classCode="BATTERY"> <templateId root="10.03.840.1.965304.06.06.22.4.1 " /> <id nullFlavor="NA" /> <code codeSystem="local" code="iTROPI" displayName="TROPONIN I BEDSIDE" /> <statusCode code="completed" /> < component> <observation moodCode="EVN" classCode="OBS"> < templateId root="10.03.840.1.410498.06.06.22.4.2" /> <id nullFlavor="NA " /> <code codeSystem="local" code="CMETHOD" displayName="METHOD" /> <statusCode code="completed" /> <effectiveTime value= "000746478380" /> <value unit="" xsi:type="PQ" value="Bedside" /> <referenceRange> <observationRange> <text /> </observationRange> </referenceRange> </observation> </component> <component> <observation moodCode="EVN" classCode="OBS "> <templateId root="16.840.1.207718.06.06.22.4.2" /> <id nullFlavor="NA" /> <code codeSystem="local" code="TROPI" displayName= "TROPONIN I" /> <statusCode code="completed" /> < effectiveTime value="539140667685" /> <value unit="ng/mL" xsi:type="PQ " value="< 0.04" /> <referenceRange> <observationRange> <text>< 0.11</text> </observationRange> </ referenceRange> </observation> </component> </organizer> </entry > <entry> <organizer moodCode="EVN" classCode="BATTERY"> <templateId root="10.03.840.1.644746.06.06.22.4.1" /> <id nullFlavor="NA" /> <code codeSystem="local" code="UA" displayName="URINALYSIS, ROUTINE" /> < statusCode code="completed" /> <component> <observation moodCode= "EVN" classCode="OBS"> <templateId root="16.840.1.612546.10.4.2 " /> <id nullFlavor="NA" /> <code codeSystem="local" code= "LEUESU" displayName="UA LEUKOCYTE ESTERASE DIPSTICK" /> <statusCode code="completed" /> <effectiveTime value="998176995326" /> < value unit="" xsi:type="PQ" value="NEGATIVE" /> <referenceRange> <observationRange> <text>NEGATIVE</text> </ observationRange> </referenceRange> </observation> </ component> <component> <observation moodCode="EVN" classCode="OBS"> <templateId root="16.840.1.516846.10..4.2" /> <id nullFlavor="NA" /> <code codeSystem="local" code="NITRIU" displayName= "UA NITRITE DIPSTICK" /> <statusCode code="completed" /> < effectiveTime value="684056665657" /> <value unit="" xsi:type="PQ" value="NEGATIVE" /> <referenceRange> <observationRange> <text>NEGATIVE</text> </observationRange> </ referenceRange> </observation> </component> <component> <observation moodCode="EVN" classCode="OBS"> <templateId root= "10.03.840.1.882498.10.4.2" /> <id nullFlavor="NA" /> < code codeSystem="local" code="PROTEIU" displayName="UA PROTEIN DIPSTICK" /> <statusCode code="completed" /> <effectiveTime value= "588963689596" /> <value unit="" xsi:type="PQ" value="NEGATIVE" /> <referenceRange> <observationRange> <text>NEGATIVE </text> </observationRange> </referenceRange> </ observation> </component> <component> <observation moodCode= "EVN" classCode="OBS"> <templateId root="10.03.840.1.128023.10.4.2 " /> <id nullFlavor="NA" /> <code codeSystem="local" code= "DGLUU" displayName="UA GLUCOSE DIPSTICK" /> <statusCode code= "completed" /> <effectiveTime value="986313444606" /> <value unit="" xsi:type="PQ" value="NEGATIVE" /> <referenceRange> < observationRange> <text>NEGATIVE</text> </ observationRange> </referenceRange> </observation> </ component> <component> <observation moodCode="EVN" classCode="OBS"> <templateId root="216.840.1.158181.06.06.22.4.2" /> <id nullFlavor="NA" /> <code codeSystem="local" code="KETONU" displayName= "UA KETONE DIPSTICK" /> <statusCode code="completed" /> < effectiveTime value="225957669471" /> <value unit="" xsi:type="PQ" value="NEGATIVE" /> <referenceRange> <observationRange> <text>NEGATIVE</text> </observationRange> </ referenceRange> </observation> </component> <component> <observation moodCode="EVN" classCode="OBS"> <templateId root= "10.03.840.1.732579.06.06.22.4.2" /> <id nullFlavor="NA" /> < code codeSystem="local" code="UROBILU" displayName="UA UROBILINOGEN DIPSTICK" / > <statusCode code="completed" /> <effectiveTime value= "394983847340" /> <value unit="" xsi:type="PQ" value="NORMAL" /> <referenceRange> <observationRange> <text>NORMAL</ text> </observationRange> </referenceRange> </ observation> </component> <component> <observation moodCode= "EVN" classCode="OBS"> <templateId root="16.840.1.371851.06.06.22.4.2 " /> <id nullFlavor="NA" /> <code codeSystem="local" code= "BILU" displayName="UA BILIRUBIN DIPSTICK" /> <statusCode code= "completed" /> <effectiveTime value="" /> <value unit="" xsi:type="PQ" value="NEGATIVE" /> <referenceRange> < observationRange> <text>NEGATIVE</text> </ observationRange> </referenceRange> </observation> </ component> <component> <observation moodCode="EVN" classCode="OBS"> <templateId root="216.840.1.972144.10..4.2" /> <id nullFlavor="NA" /> <code codeSystem="local" code="ADAM" displayName="UA BLOOD DIPSTICK" /> <statusCode code="completed" /> < effectiveTime value="" /> <value unit="" xsi:type="PQ" value="NEGATIVE" /> <referenceRange> <observationRange> <text>NEGATIVE</text> </observationRange> </ referenceRange> </observation> </component> <component> <observation moodCode="EVN" classCode="OBS"> <templateId root= "216.840.1.394322.10...4.2" /> <id nullFlavor="NA" /> < code codeSystem="local" code="SPGRU" displayName="UA SPECIFIC GRAVITY" /> <statusCode code="completed" /> <effectiveTime value=" " /> <value unit="" xsi:type="PQ" value="1.010" /> < interpretationCode codeSystem="local" code="*" /> <referenceRange> <observationRange> <text>1.015-1.025</text> </ observationRange> </referenceRange> </observation> </ component> <component> <observation moodCode="EVN" classCode="OBS"> <templateId root="16.840.1.433612.06.06.22.4.2" /> <id nullFlavor="NA" /> <code codeSystem="local" code="INGRID" displayName="UR PH" /> <statusCode code="completed" /> <effectiveTime value= "392177701628" /> <value unit="" xsi:type="PQ" value="5.5" /> <referenceRange> <observationRange> <text>5.0-7.0</text > </observationRange> </referenceRange> </observation > </component> </organizer> </entry> <entry> <organizer moodCode= "EVN" classCode="BATTERY"> <templateId root="10.03.840.1.808921.06.06.22.4.1 " /> <id nullFlavor="NA" /> <code codeSystem="local" code="iCHEM8" displayName="CHEM/HEM PROFILE-BEDSIDE" /> <statusCode code="completed" /> <component> <observation moodCode="EVN" classCode="OBS"> < templateId root="10.03.840.1.777524.06.06.22.4.2" /> <id nullFlavor="NA " /> <code codeSystem="local" code="K" displayName="POTASSIUM" /> <statusCode code="completed" /> <effectiveTime value="603918368899 " /> <value unit="mmol/L" xsi:type="PQ" value="3.5" /> < referenceRange> <observationRange> <text>3.5-5.3</text> </observationRange> </referenceRange> </observation > </component> <component> <observation moodCode="EVN" classCode="OBS"> <templateId root="10.03.840.1.080511...4.2" /> <id nullFlavor="NA" /> <code codeSystem="local" code="CMETHOD " displayName="METHOD" /> <statusCode code="completed" /> < effectiveTime value="736529532035" /> <value unit="" xsi:type="PQ" value="Bedside" /> <referenceRange> <observationRange> <text /> </observationRange> </referenceRange> </observation> </component> <component> <observation moodCode="EVN" classCode="OBS"> <templateId root= "10.03.840.1.514909.22.4.2" /> <id nullFlavor="NA" /> < code codeSystem="local" code="GAP" displayName="ANION GAP" /> < statusCode code="completed" /> <effectiveTime value="904141787421" /> <value unit="mmol/L" xsi:type="PQ" value="19" /> < referenceRange> <observationRange> <text>10-20</text> </observationRange> </referenceRange> </observation> </component> <component> <observation moodCode="EVN" classCode= "OBS"> <templateId root="840.1.930709.22.4.2" /> < id nullFlavor="NA" /> <code codeSystem="local" code="HMETHOD" displayName="METHOD" /> <statusCode code="completed" /> < effectiveTime value="004355306033" /> <value unit="" xsi:type="PQ" value="Bedside" /> <referenceRange> <observationRange> <text /> </observationRange> </referenceRange> </observation> </component> <component> <observation moodCode="EVN" classCode="OBS"> <templateId root= "10.03.840.1.001456.22.4.2" /> <id nullFlavor="NA" /> < code codeSystem="local" code="GLU" displayName="GLUCOSE" /> < statusCode code="completed" /> <effectiveTime value="078059378104" /> <value unit="mg/dL" xsi:type="PQ" value="173" /> < interpretationCode codeSystem="local" code="*" /> <referenceRange> <observationRange> <text>70-99</text> </ observationRange> </referenceRange> </observation> </ component> <component> <observation moodCode="EVN" classCode="OBS"> <templateId root="2.16.840.1.557921.10..4.2" /> <id nullFlavor="NA" /> <code codeSystem="local" code="BUN" displayName= "BLOOD UREA NITROGEN" /> <statusCode code="completed" /> < effectiveTime value="618080333179" /> <value unit="mg/dL" xsi:type="PQ " value="26" /> <interpretationCode codeSystem="local" code="*" /> <referenceRange> <observationRange> <text>7-20</ text> </observationRange> </referenceRange> </ observation> </component> <component> <observation moodCode= "EVN" classCode="OBS"> <templateId root="2.16.840.1.361477.10.4.2 " /> <id nullFlavor="NA" /> <code codeSystem="local" code= "CREAT" displayName="CREATININE" /> <statusCode code="completed" /> <effectiveTime value="159196769340" /> <value unit="mg/dL" xsi: type="PQ" value="1.0" /> <referenceRange> <observationRange > <text>0.6-1.0</text> </observationRange> </ referenceRange> </observation> </component> <component> <observation moodCode="EVN" classCode="OBS"> <templateId root= "216.840.1.734007.10..4.2" /> <id nullFlavor="NA" /> < code codeSystem="local" code="HGBT" displayName="HEMOGLOBIN" /> < statusCode code="completed" /> <effectiveTime value="742992822176" /> <value unit="gm/dL" xsi:type="PQ" value="11.9" /> < interpretationCode codeSystem="local" code="*" /> <referenceRange> <observationRange> <text>12.0-16.0</text> </ observationRange> </referenceRange> </observation> </ component> <component> <observation moodCode="EVN" classCode="OBS"> <templateId root="10.03.840.1.609721.06.06.22.4.2" /> <id nullFlavor="NA" /> <code codeSystem="local" code="HCTT" displayName= "HEMATOCRIT" /> <statusCode code="completed" /> < effectiveTime value="133259111541" /> <value unit="%" xsi:type="PQ " value="35.0" /> <interpretationCode codeSystem="local" code="*" /> <referenceRange> <observationRange> <text>37.0- 47.0</text> </observationRange> </referenceRange> </ observation> </component> <component> <observation moodCode= "EVN" classCode="OBS"> <templateId root="10.03.840.1.767421.10...4.2 " /> <id nullFlavor="NA" /> <code codeSystem="local" code="NA " displayName="SODIUM" /> <statusCode code="completed" /> < effectiveTime value="463690292763" /> <value unit="mmol/L" xsi:type="PQ " value="136" /> <referenceRange> <observationRange> <text>135-148</text> </observationRange> </ referenceRange> </observation> </component> <component> <observation moodCode="EVN" classCode="OBS"> <templateId root= "216.840.1.764507.10...4.2" /> <id nullFlavor="NA" /> < code codeSystem="local" code="CL" displayName="CHLORIDE" /> < statusCode code="completed" /> <effectiveTime value="699352398666" /> <value unit="mmol/L" xsi:type="PQ" value="103" /> < referenceRange> <observationRange> <text>98-110</text> </observationRange> </referenceRange> </observation> </component> <component> <observation moodCode="EVN" classCode ="OBS"> <templateId root="16.840.1.841282.10...4.2" /> < id nullFlavor="NA" /> <code codeSystem="local" code="CO2" displayName= "CARBON DIOXIDE" /> <statusCode code="completed" /> < effectiveTime value="719394320579" /> <value unit="mmol/L" xsi:type="PQ " value="19" /> <interpretationCode codeSystem="local" code="*" /> <referenceRange> <observationRange> <text>21-32</ text> </observationRange> </referenceRange> </ observation> </component> <component> <observation moodCode= "EVN" classCode="OBS"> <templateId root="216.840.1.075965..4.2 " /> <id nullFlavor="NA" /> <code codeSystem="local" code= "CAION" displayName="CALCIUM IONIZED" /> <statusCode code="completed" / > <effectiveTime value="080433039156" /> <value unit="mg/dL" xsi:type="PQ" value="4.7" /> <referenceRange> < observationRange> <text>4.5-5.3</text> </ observationRange> </referenceRange> </observation> </ component> </organizer> </entry> <entry> <organizer moodCode="EVN" classCode="BATTERY"> <templateId root="216.840.1.637887.06.06.22.4.1" /> <id nullFlavor="NA" /> <code codeSystem="local" code="iTROPI" displayName="TROPONIN I BEDSIDE" /> <statusCode code="completed" /> < component> <observation moodCode="EVN" classCode="OBS"> < templateId root="216.840.1.906567.06.06.22.4.2" /> <id nullFlavor="NA " /> <code codeSystem="local" code="CMETHOD" displayName="METHOD" /> <statusCode code="completed" /> <effectiveTime value= "041387400410" /> <value unit="" xsi:type="PQ" value="Bedside" /> <referenceRange> <observationRange> <text /> </observationRange> </referenceRange> </observation> </component> <component> <observation moodCode="EVN" classCode="OBS "> <templateId root="216.840.1.153325.06.06.22.4.2" /> <id nullFlavor="NA" /> <code codeSystem="local" code="TROPI" displayName= "TROPONIN I" /> <statusCode code="completed" /> < effectiveTime value="027376917332" /> <value unit="ng/mL" xsi:type="PQ " value="< 0.04" /> <referenceRange> <observationRange> <text>< 0.11</text> </observationRange> </ referenceRange> </observation> </component> </organizer> </entry > <entry> <organizer moodCode="EVN" classCode="BATTERY"> <templateId root="216.840.1.668696.10..22.4.1" /> <id nullFlavor="NA" /> <code codeSystem="local" code="LIVER" displayName="HEPATIC FUNCTION PANEL" /> < statusCode code="completed" /> <component> <observation moodCode= "EVN" classCode="OBS"> <templateId root="216.840.1.900158.10...4.2 " /> <id nullFlavor="NA" /> <code codeSystem="local" code= "BILUC" displayName="BILI UNCONJUGATED" /> <statusCode code="completed " /> <effectiveTime value="268301414088" /> <value unit="mg/dL " xsi:type="PQ" value="0.2" /> <referenceRange> < observationRange> <text>0.0-0.7</text> </ observationRange> </referenceRange> </observation> </ component> <component> <observation moodCode="EVN" classCode="OBS"> <templateId root="216.840.1.732783.10...4.2" /> <id nullFlavor="NA" /> <code codeSystem="local" code="AST" displayName="AST /SGOT" /> <statusCode code="completed" /> <effectiveTime value ="454720034596" /> <value unit="Units/L" xsi:type="PQ" value="13" /> <referenceRange> <observationRange> <text>10-37< /text> </observationRange> </referenceRange> </ observation> </component> <component> <observation moodCode= "EVN" classCode="OBS"> <templateId root="10.03.840.1.178612.10.20.22.4.2 " /> <id nullFlavor="NA" /> <code codeSystem="local" code="ALT " displayName="ALT/SGPT" /> <statusCode code="completed" /> < effectiveTime value="090950078603" /> <value unit="Units/L" xsi:type= "PQ" value="16" /> <referenceRange> <observationRange> <text>< 66</text> </observationRange> </ referenceRange> </observation> </component> <component> <observation moodCode="EVN" classCode="OBS"> <templateId root= "840.1.589869.10..22.4.2" /> <id nullFlavor="NA" /> < code codeSystem="local" code="TP" displayName="TOTAL PROTEIN" /> < statusCode code="completed" /> <effectiveTime value="017251088720" /> <value unit="gm/dL" xsi:type="PQ" value="8.6" /> < interpretationCode codeSystem="local" code="*" /> <referenceRange> <observationRange> <text>6.4-8.2</text> </ observationRange> </referenceRange> </observation> </ component> <component> <observation moodCode="EVN" classCode="OBS"> <templateId root="10.03.840.1.570884.10.20.22.4.2" /> <id nullFlavor="NA" /> <code codeSystem="local" code="ALB" displayName= "ALBUMIN" /> <statusCode code="completed" /> <effectiveTime value="" /> <value unit="gm/dL" xsi:type="PQ" value="3.2" / > <interpretationCode codeSystem="local" code="*" /> < referenceRange> <observationRange> <text>3.4-5.0</text> </observationRange> </referenceRange> </observation > </component> <component> <observation moodCode="EVN" classCode="OBS"> <templateId root="2.16.840.1.903961.10..22.4.2" /> <id nullFlavor="NA" /> <code codeSystem="local" code="BILTOT" displayName="BILI TOTAL" /> <statusCode code="completed" /> < effectiveTime value="" /> <value unit="mg/dL" xsi:type="PQ " value="0.3" /> <referenceRange> <observationRange> <text>0.0-1.0</text> </observationRange> </ referenceRange> </observation> </component> <component> <observation moodCode="EVN" classCode="OBS"> <templateId root= "2.16.840.1.052276.10...4.2" /> <id nullFlavor="NA" /> < code codeSystem="local" code="ALKP" displayName="ALKALINE PHOSPHATASE TOTAL" /> <statusCode code="completed" /> <effectiveTime value= "" /> <value unit="IU/L" xsi:type="PQ" value="114" /> <referenceRange> <observationRange> <text>45-117</ text> </observationRange> </referenceRange> </ observation> </component> <component> <observation moodCode= "EVN" classCode="OBS"> <templateId root="2.16.840.1.618906.10.20.22.4.2 " /> <id nullFlavor="NA" /> <code codeSystem="local" code= "BILC" displayName="BILI CONJUGATED" /> <statusCode code="completed" / > <effectiveTime value="763972682236" /> <value unit="mg/dL" xsi:type="PQ" value="< 0.1" /> <referenceRange> < observationRange> <text>0.0-0.3</text> </ observationRange> </referenceRange> </observation> </ component> </organizer> </entry> <entry> <organizer moodCode="EVN" classCode="BATTERY"> <templateId root="2.16.840.1.820681.10.20.22.4.1" /> <id nullFlavor="NA" /> <code codeSystem="local" code="LIP" displayName ="LIPASE" /> <statusCode code="completed" /> <component> < observation moodCode="EVN" classCode="OBS"> <templateId root= "2.16.840.1.816625.10.20.22.4.2" /> <id nullFlavor="NA" /> < code codeSystem="local" code="LIP" displayName="LIPASE" /> <statusCode code="completed" /> <effectiveTime value="001044277240" /> < value unit="Units/L" xsi:type="PQ" value="69" /> <interpretationCode codeSystem="local" code="*" /> <referenceRange> < observationRange> <text>73-393</text> </observationRange > </referenceRange> </observation> </component> </ organizer> </entry> <entry> <organizer moodCode="EVN" classCode="BATTERY"> <templateId root="840.1.934745.06.06.22.4.1" /> <id nullFlavor= "NA" /> <code codeSystem="local" code="DIMER" displayName="D-DIMER QUANT" / > <statusCode code="completed" /> <component> <observation moodCode="EVN" classCode="OBS"> <templateId root= "840.1.086487.06.06.22.4.2" /> <id nullFlavor="NA" /> < code codeSystem="local" code="DIMER" displayName="D-DIMER QUANT" /> < statusCode code="completed" /> <effectiveTime value="836853313362" /> <value unit="ng/mL" xsi:type="PQ" value="456" /> < interpretationCode codeSystem="local" code="*" /> <referenceRange> <observationRange> <text>0-229</text> </ observationRange> </referenceRange> </observation> </ component> </organizer> </entry> <entry> <organizer moodCode="EVN" classCode="BATTERY"> <templateId root="840.1.258586.06.06.22.4.1" /> <id nullFlavor="NA" /> <code codeSystem="local" code="CBCD" displayName="CBC W/DIFF" /> <statusCode code="completed" /> <component > <observation moodCode="EVN" classCode="OBS"> <templateId root= "840.1.190607.06.06.22.4.2" /> <id nullFlavor="NA" /> < code codeSystem="local" code="GR#" displayName="GRANULOCYTE #" /> < statusCode code="completed" /> <effectiveTime value="765151050493" /> <value unit="k/cumm" xsi:type="PQ" value="10.3" /> < interpretationCode codeSystem="local" code="*" /> <referenceRange> <observationRange> <text>2.0-9.0</text> </ observationRange> </referenceRange> </observation> </ component> <component> <observation moodCode="EVN" classCode="OBS"> <templateId root="16.840.1.274207.102022.4.2" /> <id nullFlavor="NA" /> <code codeSystem="local" code="GR%" displayName= "GRANULOCYTE %" /> <statusCode code="completed" /> < effectiveTime value="985572483376" /> <value unit="%" xsi:type="PQ " value="86" /> <interpretationCode codeSystem="local" code="*" /> <referenceRange> <observationRange> <text>50-75</ text> </observationRange> </referenceRange> </ observation> </component> <component> <observation moodCode= "EVN" classCode="OBS"> <templateId root="16.840.1.936355.102022.4.2 " /> <id nullFlavor="NA" /> <code codeSystem="local" code="LY# " displayName="LYMPHOCYTE #" /> <statusCode code="completed" /> <effectiveTime value="640495050885" /> <value unit="k/cumm" xsi:type ="PQ" value="0.7" /> <interpretationCode codeSystem="local" code="*" / > <referenceRange> <observationRange> <text>1.0 -4.0</text> </observationRange> </referenceRange> </ observation> </component> <component> <observation moodCode= "EVN" classCode="OBS"> <templateId root="16.840.1.714341.10.20.22.4.2 " /> <id nullFlavor="NA" /> <code codeSystem="local" code="LY& #37;" displayName="LYMPHOCYTE %" /> <statusCode code="completed" / > <effectiveTime value="099133445679" /> <value unit="%" xsi:type="PQ" value="6" /> <interpretationCode codeSystem="local" code= "*" /> <referenceRange> <observationRange> < text>20-30</text> </observationRange> </referenceRange> </observation> </component> <component> <observation moodCode="EVN" classCode="OBS"> <templateId root= "10.03.840.1.091178.10..4.2" /> <id nullFlavor="NA" /> < code codeSystem="local" code="MCH" displayName="MEAN CELL HGB" /> < statusCode code="completed" /> <effectiveTime value="374804867466" /> <value unit="pg" xsi:type="PQ" value="21.8" /> < interpretationCode codeSystem="local" code="*" /> <referenceRange> <observationRange> <text>27.0-33.0</text> </ observationRange> </referenceRange> </observation> </ component> <component> <observation moodCode="EVN" classCode="OBS"> <templateId root="10.03.840.1.969029.10.2022.4.2" /> <id nullFlavor="NA" /> <code codeSystem="local" code="MCHC" displayName= "MEAN CELL HGB CONCENTRATION" /> <statusCode code="completed" /> <effectiveTime value="" /> <value unit="g/dL" xsi:type= "PQ" value="31.6" /> <interpretationCode codeSystem="local" code="*" / > <referenceRange> <observationRange> <text> 32.0-37.0</text> </observationRange> </referenceRange> </observation> </component> <component> <observation moodCode="EVN" classCode="OBS"> <templateId root= "10.03.840.1.445488.22.4.2" /> <id nullFlavor="NA" /> < code codeSystem="local" code="MCV" displayName="MEAN CELL VOLUME" /> < statusCode code="completed" /> <effectiveTime value="456942834374" /> <value unit="fl" xsi:type="PQ" value="68.9" /> < interpretationCode codeSystem="local" code="*" /> <referenceRange> <observationRange> <text>80.0-100.0</text> </ observationRange> </referenceRange> </observation> </ component> <component> <observation moodCode="EVN" classCode="OBS"> <templateId root="10.03.840.1.982831.06.06.22.4.2" /> <id nullFlavor="NA" /> <code codeSystem="local" code="MO#" displayName= "MONOCYTE #" /> <statusCode code="completed" /> < effectiveTime value="648355196150" /> <value unit="k/cumm" xsi:type="PQ " value="0.9" /> <referenceRange> <observationRange> <text>0.1-1.0</text> </observationRange> </ referenceRange> </observation> </component> <component> <observation moodCode="EVN" classCode="OBS"> <templateId root= "10.03.840.1.670506.06.06.22.4.2" /> <id nullFlavor="NA" /> < code codeSystem="local" code="MO%" displayName="MONOCYTE %" /> <statusCode code="completed" /> <effectiveTime value="217581906447" /> <value unit="%" xsi:type="PQ" value="8" /> < interpretationCode codeSystem="local" code="*" /> <referenceRange> <observationRange> <text>4-6</text> </ observationRange> </referenceRange> </observation> </ component> <component> <observation moodCode="EVN" classCode="OBS"> <templateId root="216.840.1.528065.06.06.22.4.2" /> <id nullFlavor="NA" /> <code codeSystem="local" code="RBC" displayName=" RED BLOOD CELL" /> <statusCode code="completed" /> < effectiveTime value="938612974554" /> <value unit="m/cumm" xsi:type="PQ " value="4.54" /> <referenceRange> <observationRange> <text>4.00-6.00</text> </observationRange> </ referenceRange> </observation> </component> <component> <observation moodCode="EVN" classCode="OBS"> <templateId root= "216.840.1.509379.06.06.22.4.2" /> <id nullFlavor="NA" /> < code codeSystem="local" code="RDW" displayName="RED CELL DISTRIBUTION WIDTH" /> <statusCode code="completed" /> <effectiveTime value= "110848412727" /> <value unit="%" xsi:type="PQ" value="21.1" /> <interpretationCode codeSystem="local" code="*" /> < referenceRange> <observationRange> <text>11.0-15.6</text > </observationRange> </referenceRange> </observation > </component> <component> <observation moodCode="EVN" classCode="OBS"> <templateId root="10.03.840.1.096555.10.20.22.4.2" /> <id nullFlavor="NA" /> <code codeSystem="local" code="WBC" displayName="WHITE BLOOD CELL" /> <statusCode code="completed" /> <effectiveTime value="571314965442" /> <value unit="k/cumm" xsi: type="PQ" value="12.0" /> <interpretationCode codeSystem="local" code= "*" /> <referenceRange> <observationRange> < text>5.0-10.0</text> </observationRange> </referenceRange> </observation> </component> <component> <observation moodCode="EVN" classCode="OBS"> <templateId root= "10.03.840.1.874787.10..22.4.2" /> <id nullFlavor="NA" /> < code codeSystem="local" code="HGBT" displayName="HEMOGLOBIN" /> < statusCode code="completed" /> <effectiveTime value="194985286479" /> <value unit="gm/dL" xsi:type="PQ" value="9.9" /> < interpretationCode codeSystem="local" code="*" /> <referenceRange> <observationRange> <text>12.0-16.0</text> </ observationRange> </referenceRange> </observation> </ component> <component> <observation moodCode="EVN" classCode="OBS"> <templateId root="10.03.840.1.644579.10.20.22.4.2" /> <id nullFlavor="NA" /> <code codeSystem="local" code="HCTT" displayName= "HEMATOCRIT" /> <statusCode code="completed" /> < effectiveTime value="185271020887" /> <value unit="%" xsi:type="PQ " value="31.3" /> <interpretationCode codeSystem="local" code="*" /> <referenceRange> <observationRange> <text>37.0- 47.0</text> </observationRange> </referenceRange> </ observation> </component> <component> <observation moodCode= "EVN" classCode="OBS"> <templateId root="840.1.490264.06.06.224.2 " /> <id nullFlavor="NA" /> <code codeSystem="local" code="PLT " displayName="PLATELET COUNT" /> <statusCode code="completed" /> <effectiveTime value="" /> <value unit="k/cumm" xsi: type="PQ" value="331" /> <referenceRange> <observationRange > <text>150-400</text> </observationRange> </ referenceRange> </observation> </component> </organizer> </entry > <entry> <organizer moodCode="EVN" classCode="BATTERY"> <templateId root="840.1.734533.06.06.22.4.1" /> <id nullFlavor="NA" /> <code codeSystem="local" code="MORPH" displayName="MORPHOLOGY" /> <statusCode code="completed" /> <component> <observation moodCode="EVN" classCode="OBS"> <templateId root="840.1.728030.22.4.2" /> <id nullFlavor="NA" /> <code codeSystem="local" code="RMORPH" displayName="RBC MORPH" /> <statusCode code="completed" /> < effectiveTime value="264707020097" /> <value unit="" xsi:type="PQ" value="NOTED" /> <referenceRange> <observationRange> <text /> </observationRange> </referenceRange> </observation> </component> </organizer> </entry> <entry> < organizer moodCode="EVN" classCode="BATTERY"> <templateId root= "10.03.840.1.987838.10.4.1" /> <id nullFlavor="NA" /> <code codeSystem="local" code="LACT" displayName="LACTIC ACID" /> <statusCode code="completed" /> <component> <observation moodCode="EVN" classCode="OBS"> <templateId root="10.03.840.1.563490....4.2" /> <id nullFlavor="NA" /> <code codeSystem="local" code="LACT" displayName="LACTIC ACID" /> <statusCode code="completed" /> < effectiveTime value="609535435297" /> <value unit="mmol/L" xsi:type="PQ " value="1.0" /> <referenceRange> <observationRange> <text>0.5-2.0</text> </observationRange> </ referenceRange> </observation> </component> </organizer> </entry > <entry> <organizer moodCode="EVN" classCode="BATTERY"> <templateId root="10.03.840.1.081486.10..4.1" /> <id nullFlavor="NA" /> <code codeSystem="local" code="BC" displayName="BLOOD CULTURE" /> <statusCode code="completed" /> <component> <observation moodCode="EVN" classCode="OBS"> <templateId root="10.03.840.1.417410.10.20.22.4.2" /> <id nullFlavor="NA" /> <code codeSystem="local" code="MB" displayName="Microbiology" /> <statusCode code="completed" /> <effectiveTime value="211138422232" /> <value xsi:type="ST" value="<pre ><b>BLOOD CULTURE</b> See BelowIs this a Possible Sepsis/Sepsis patient? YesBLOOD CULTURE(F) Cosme Date/Time: 11/26/2016 06:40 Irvin Date/Time: 12/01/2016 17:00SOURCE: BLOODSPEC DESC: [id number] [facility] [place] [facility] [address]</pre>" /> <referenceRange> <observationRange> <text /> </observationRange> </referenceRange> </observation> </component> </organizer> </entry> <entry> < organizer moodCode="EVN" classCode="BATTERY"> <templateId root= "216.840.1.051843.10.20.22.4.1" /> <id nullFlavor="NA" /> <code codeSystem="local" code="UA" displayName="URINALYSIS, ROUTINE" /> < statusCode code="completed" /> <component> <observation moodCode= "EVN" classCode="OBS"> <templateId root="216.840.1.532907.10.20.22.4.2 " /> <id nullFlavor="NA" /> <code codeSystem="local" code= "LEUESU" displayName="UA LEUKOCYTE ESTERASE DIPSTICK" /> <statusCode code="completed" /> <effectiveTime value="529001646034" /> < value unit="" xsi:type="PQ" value="NEGATIVE" /> <referenceRange> <observationRange> <text>NEGATIVE</text> </ observationRange> </referenceRange> </observation> </ component> <component> <observation moodCode="EVN" classCode="OBS"> <templateId root="10.03.840.1.554419.10.4.2" /> <id nullFlavor="NA" /> <code codeSystem="local" code="NITRIU" displayName= "UA NITRITE DIPSTICK" /> <statusCode code="completed" /> < effectiveTime value="" /> <value unit="" xsi:type="PQ" value="NEGATIVE" /> <referenceRange> <observationRange> <text>NEGATIVE</text> </observationRange> </ referenceRange> </observation> </component> <component> <observation moodCode="EVN" classCode="OBS"> <templateId root= "16.840.1.325192.06.06.22.4.2" /> <id nullFlavor="NA" /> < code codeSystem="local" code="PROTEIU" displayName="UA PROTEIN DIPSTICK" /> <statusCode code="completed" /> <effectiveTime value= "" /> <value unit="" xsi:type="PQ" value="1+" /> < referenceRange> <observationRange> <text>NEGATIVE</text > </observationRange> </referenceRange> </observation > </component> <component> <observation moodCode="EVN" classCode="OBS"> <templateId root="10.03.840.1.933149.1022.4.2" /> <id nullFlavor="NA" /> <code codeSystem="local" code="DGLUU" displayName="UA GLUCOSE DIPSTICK" /> <statusCode code="completed" /> <effectiveTime value="" /> <value unit="" xsi:type= "PQ" value="NEGATIVE" /> <referenceRange> <observationRange > <text>NEGATIVE</text> </observationRange> </ referenceRange> </observation> </component> <component> <observation moodCode="EVN" classCode="OBS"> <templateId root= "16.840.1.655199.10.4.2" /> <id nullFlavor="NA" /> < code codeSystem="local" code="KETONU" displayName="UA KETONE DIPSTICK" /> <statusCode code="completed" /> <effectiveTime value=" " /> <value unit="" xsi:type="PQ" value="NEGATIVE" /> < referenceRange> <observationRange> <text>NEGATIVE</text > </observationRange> </referenceRange> </observation > </component> <component> <observation moodCode="EVN" classCode="OBS"> <templateId root="10.03.840.1.876764.06.06.22.4.2" /> <id nullFlavor="NA" /> <code codeSystem="local" code="UROBILU " displayName="UA UROBILINOGEN DIPSTICK" /> <statusCode code="completed " /> <effectiveTime value="" /> <value unit="" xsi :type="PQ" value="NORMAL" /> <referenceRange> < observationRange> <text>NORMAL</text> </observationRange > </referenceRange> </observation> </component> < component> <observation moodCode="EVN" classCode="OBS"> < templateId root="10.03.840.1.880181.06.06.22.4.2" /> <id nullFlavor="NA " /> <code codeSystem="local" code="BILU" displayName="UA BILIRUBIN DIPSTICK" /> <statusCode code="completed" /> <effectiveTime value="" /> <value unit="" xsi:type="PQ" value="NEGATIVE" / > <referenceRange> <observationRange> <text> NEGATIVE</text> </observationRange> </referenceRange> </observation> </component> <component> <observation moodCode ="EVN" classCode="OBS"> <templateId root= "10.03.840.1.612078.10.22.4.2" /> <id nullFlavor="NA" /> < code codeSystem="local" code="ADAM" displayName="UA BLOOD DIPSTICK" /> < statusCode code="completed" /> <effectiveTime value="271066965178" /> <value unit="" xsi:type="PQ" value="NEGATIVE" /> < referenceRange> <observationRange> <text>NEGATIVE</text > </observationRange> </referenceRange> </observation > </component> <component> <observation moodCode="EVN" classCode="OBS"> <templateId root="840.1.207762.06.06.22.4.2" /> <id nullFlavor="NA" /> <code codeSystem="local" code="SPGRU" displayName="UA SPECIFIC GRAVITY" /> <statusCode code="completed" /> <effectiveTime value="022595823047" /> <value unit="" xsi:type= "PQ" value="1.015" /> <referenceRange> <observationRange> <text>1.015-1.025</text> </observationRange> </ referenceRange> </observation> </component> <component> <observation moodCode="EVN" classCode="OBS"> <templateId root= "10.03.840.1.579446.102022.4.2" /> <id nullFlavor="NA" /> < code codeSystem="local" code="INGRID" displayName="UR PH" /> <statusCode code="completed" /> <effectiveTime value="303709385145" /> < value unit="" xsi:type="PQ" value="5.5" /> <referenceRange> <observationRange> <text>5.0-7.0</text> </ observationRange> </referenceRange> </observation> </ component> </organizer> </entry> <entry> <organizer moodCode="EVN" classCode="BATTERY"> <templateId root="16.840.1.012021.10.2022.4.1" /> <id nullFlavor="NA" /> <code codeSystem="local" code="UAMICRO" displayName="UA MICROSCOPIC" /> <statusCode code="completed" /> < component> <observation moodCode="EVN" classCode="OBS"> < templateId root="10.03.840.1.246000.22.4.2" /> <id nullFlavor="NA " /> <code codeSystem="local" code="BACU" displayName="UA BACTERIA" /> <statusCode code="completed" /> <effectiveTime value= "" /> <value unit="" xsi:type="PQ" value="2+" /> < referenceRange> <observationRange> <text>NEGATIVE</text > </observationRange> </referenceRange> </observation > </component> <component> <observation moodCode="EVN" classCode="OBS"> <templateId root="10.03.840.1.216401.1022.4.2" /> <id nullFlavor="NA" /> <code codeSystem="local" code="EPIU" displayName="UA EPITHELIAL CELLS" /> <statusCode code="completed" /> <effectiveTime value="" /> <value unit="epi/hpf" xsi:type="PQ" value="3+" /> <referenceRange> < observationRange> <text>0 - 1+</text> </observationRange > </referenceRange> </observation> </component> < component> <observation moodCode="EVN" classCode="OBS"> < templateId root="16.840.1.590325.10..22.4.2" /> <id nullFlavor="NA " /> <code codeSystem="local" code="HYALU" displayName="UA HYALINE CAST " /> <statusCode code="completed" /> <effectiveTime value= "" /> <value unit="cast/lpf" xsi:type="PQ" value="5-10" /> <referenceRange> <observationRange> <text>0 - 1</text> </observationRange> </referenceRange> </ observation> </component> <component> <observation moodCode= "EVN" classCode="OBS"> <templateId root="10.03.840.1.786196.10.4.2 " /> <id nullFlavor="NA" /> <code codeSystem="local" code= "RBCU" displayName="UA RBC" /> <statusCode code="completed" /> <effectiveTime value="" /> <value unit="rbc/hpf" xsi:type ="PQ" value="3-5" /> <referenceRange> <observationRange> <text>0 - 3</text> </observationRange> </ referenceRange> </observation> </component> <component> <observation moodCode="EVN" classCode="OBS"> <templateId root= "10.03.840.1.992833.102022.4.2" /> <id nullFlavor="NA" /> < code codeSystem="local" code="UAVOL" displayName="UA VOLUME FOR EXAM" /> <statusCode code="completed" /> <effectiveTime value="310484917695" /> <value unit="mL" xsi:type="PQ" value="12.0" /> < referenceRange> <observationRange> <text>(12mL STD)</ text> </observationRange> </referenceRange> </ observation> </component> <component> <observation moodCode= "EVN" classCode="OBS"> <templateId root="840.1.049044.06.06.22.4.2 " /> <id nullFlavor="NA" /> <code codeSystem="local" code= "WBCU" displayName="UA WBC" /> <statusCode code="completed" /> <effectiveTime value="" /> <value unit="wbc/hpf" xsi:type ="PQ" value="2-5" /> <referenceRange> <observationRange> <text>0 - 5</text> </observationRange> </ referenceRange> </observation> </component> </organizer> </entry > <entry> <organizer moodCode="EVN" classCode="BATTERY"> <templateId root="10.03.840.1.441900.06.06.22.4.1" /> <id nullFlavor="NA" /> <code codeSystem="local" code="CBCD" displayName="CBC W/DIFF" /> <statusCode code ="completed" /> <component> <observation moodCode="EVN" classCode= "OBS"> <templateId root="840.1.495495.06.06.22.4.2" /> < id nullFlavor="NA" /> <code codeSystem="local" code="BA#" displayName= "BASOPHIL #" /> <statusCode code="completed" /> < effectiveTime value="914283201905" /> <value unit="k/cumm" xsi:type="PQ " value="0.0" /> <referenceRange> <observationRange> <text>0.0-0.2</text> </observationRange> </ referenceRange> </observation> </component> <component> <observation moodCode="EVN" classCode="OBS"> <templateId root= "216.840.1.657564.10..22.4.2" /> <id nullFlavor="NA" /> < code codeSystem="local" code="BA%" displayName="BASOPHIL %" /> <statusCode code="completed" /> <effectiveTime value="247299711377" /> <value unit="%" xsi:type="PQ" value="1" /> < referenceRange> <observationRange> <text>0-1</text> </observationRange> </referenceRange> </observation> </component> <component> <observation moodCode="EVN" classCode= "OBS"> <templateId root="10.03.840.1.300262.10...4.2" /> < id nullFlavor="NA" /> <code codeSystem="local" code="EO#" displayName= "EOSINOPHIL #" /> <statusCode code="completed" /> < effectiveTime value="957321456356" /> <value unit="k/cumm" xsi:type="PQ " value="0.1" /> <referenceRange> <observationRange> <text>0.1-0.5</text> </observationRange> </ referenceRange> </observation> </component> <component> <observation moodCode="EVN" classCode="OBS"> <templateId root= "10.03.840.1.778302.10.20.22.4.2" /> <id nullFlavor="NA" /> < code codeSystem="local" code="EO%" displayName="EOSINOPHIL %" /> <statusCode code="completed" /> <effectiveTime value="179242802372" /> <value unit="%" xsi:type="PQ" value="1" /> < interpretationCode codeSystem="local" code="*" /> <referenceRange> <observationRange> <text>2-4</text> </ observationRange> </referenceRange> </observation> </ component> <component> <observation moodCode="EVN" classCode="OBS"> <templateId root="2.16.840.1.844499.10.20.22.4.2" /> <id nullFlavor="NA" /> <code codeSystem="local" code="GR#" displayName= "GRANULOCYTE #" /> <statusCode code="completed" /> < effectiveTime value="821515304783" /> <value unit="k/cumm" xsi:type="PQ " value="4.7" /> <referenceRange> <observationRange> <text>2.0-9.0</text> </observationRange> </ referenceRange> </observation> </component> <component> <observation moodCode="EVN" classCode="OBS"> <templateId root= "2.16.840.1.740683.10.20.22.4.2" /> <id nullFlavor="NA" /> < code codeSystem="local" code="GR%" displayName="GRANULOCYTE %" /> <statusCode code="completed" /> <effectiveTime value="038846030411 " /> <value unit="%" xsi:type="PQ" value="69" /> < referenceRange> <observationRange> <text>50-75</text> </observationRange> </referenceRange> </observation> </component> <component> <observation moodCode="EVN" classCode= "OBS"> <templateId root="10.03.840.1.179105.10.2022.4.2" /> < id nullFlavor="NA" /> <code codeSystem="local" code="LY#" displayName= "LYMPHOCYTE #" /> <statusCode code="completed" /> < effectiveTime value="196450901669" /> <value unit="k/cumm" xsi:type="PQ " value="1.1" /> <referenceRange> <observationRange> <text>1.0-4.0</text> </observationRange> </ referenceRange> </observation> </component> <component> <observation moodCode="EVN" classCode="OBS"> <templateId root= "840.1.444766.1022.4.2" /> <id nullFlavor="NA" /> < code codeSystem="local" code="LY%" displayName="LYMPHOCYTE %" /> <statusCode code="completed" /> <effectiveTime value="471070060507" /> <value unit="%" xsi:type="PQ" value="16" /> < interpretationCode codeSystem="local" code="*" /> <referenceRange> <observationRange> <text>20-30</text> </ observationRange> </referenceRange> </observation> </ component> <component> <observation moodCode="EVN" classCode="OBS"> <templateId root="10.03.840.1.934503.10.2022.4.2" /> <id nullFlavor="NA" /> <code codeSystem="local" code="MCH" displayName= "MEAN CELL HGB" /> <statusCode code="completed" /> < effectiveTime value="833844269578" /> <value unit="pg" xsi:type="PQ" value="23.6" /> <interpretationCode codeSystem="local" code="*" /> <referenceRange> <observationRange> <text>27.0- 33.0</text> </observationRange> </referenceRange> </ observation> </component> <component> <observation moodCode= "EVN" classCode="OBS"> <templateId root="216.840.1.227151.06.06.22.4.2 " /> <id nullFlavor="NA" /> <code codeSystem="local" code= "MCHC" displayName="MEAN CELL HGB CONCENTRATION" /> <statusCode code= "completed" /> <effectiveTime value="757127781942" /> <value unit="g/dL" xsi:type="PQ" value="30.8" /> <interpretationCode codeSystem="local" code="*" /> <referenceRange> < observationRange> <text>32.0-37.0</text> </ observationRange> </referenceRange> </observation> </ component> <component> <observation moodCode="EVN" classCode="OBS"> <templateId root="216.840.1.572202.06.06.22.4.2" /> <id nullFlavor="NA" /> <code codeSystem="local" code="MCV" displayName= "MEAN CELL VOLUME" /> <statusCode code="completed" /> < effectiveTime value="999930992300" /> <value unit="fl" xsi:type="PQ" value="76.7" /> <interpretationCode codeSystem="local" code="*" /> <referenceRange> <observationRange> <text>80.0- 100.0</text> </observationRange> </referenceRange> </ observation> </component> <component> <observation moodCode= "EVN" classCode="OBS"> <templateId root="216840.1.910337.22.4.2 " /> <id nullFlavor="NA" /> <code codeSystem="local" code="MO# " displayName="MONOCYTE #" /> <statusCode code="completed" /> <effectiveTime value="235828077398" /> <value unit="k/cumm" xsi:type= "PQ" value="0.9" /> <referenceRange> <observationRange> <text>0.1-1.0</text> </observationRange> </ referenceRange> </observation> </component> <component> <observation moodCode="EVN" classCode="OBS"> <templateId root= "840.1.556240.06.06.224.2" /> <id nullFlavor="NA" /> < code codeSystem="local" code="MO%" displayName="MONOCYTE %" /> <statusCode code="completed" /> <effectiveTime value="180739858305" /> <value unit="%" xsi:type="PQ" value="13" /> < interpretationCode codeSystem="local" code="*" /> <referenceRange> <observationRange> <text>4-6</text> </ observationRange> </referenceRange> </observation> </ component> <component> <observation moodCode="EVN" classCode="OBS"> <templateId root="840.1.353325.10.4.2" /> <id nullFlavor="NA" /> <code codeSystem="local" code="MPVT" displayName= "MEAN PLATELET VOLUME" /> <statusCode code="completed" /> < effectiveTime value="951390803347" /> <value unit="fl" xsi:type="PQ" value="8.8" /> <referenceRange> <observationRange> <text>8.5-10.9</text> </observationRange> </ referenceRange> </observation> </component> <component> <observation moodCode="EVN" classCode="OBS"> <templateId root= "216.840.1.739398.10.4.2" /> <id nullFlavor="NA" /> < code codeSystem="local" code="OVAL" displayName="OVALOCYTES" /> < statusCode code="completed" /> <effectiveTime value="088930076161" /> <value unit="" xsi:type="PQ" value="NOTED" /> <referenceRange > <observationRange> <text /> </ observationRange> </referenceRange> </observation> </ component> <component> <observation moodCode="EVN" classCode="OBS"> <templateId root="16.840.1.277744.06.06.22.4.2" /> <id nullFlavor="NA" /> <code codeSystem="local" code="RBC" displayName=" RED BLOOD CELL" /> <statusCode code="completed" /> < effectiveTime value="615647011758" /> <value unit="m/cumm" xsi:type="PQ " value="3.60" /> <interpretationCode codeSystem="local" code="*" /> <referenceRange> <observationRange> <text>4.00- 6.00</text> </observationRange> </referenceRange> </ observation> </component> <component> <observation moodCode= "EVN" classCode="OBS"> <templateId root="10.03.840.1.830888.06.06.22.4.2 " /> <id nullFlavor="NA" /> <code codeSystem="local" code="RDW " displayName="RED CELL DISTRIBUTION WIDTH" /> <statusCode code= "completed" /> <effectiveTime value="126854847161" /> <value unit="%" xsi:type="PQ" value="19.5" /> <interpretationCode codeSystem="local" code="*" /> <referenceRange> < observationRange> <text>11.0-15.6</text> </ observationRange> </referenceRange> </observation> </ component> <component> <observation moodCode="EVN" classCode="OBS"> <templateId root="16.840.1.981359.10..22.4.2" /> <id nullFlavor="NA" /> <code codeSystem="local" code="WBC" displayName= "WHITE BLOOD CELL" /> <statusCode code="completed" /> < effectiveTime value="630561389498" /> <value unit="k/cumm" xsi:type="PQ " value="6.9" /> <referenceRange> <observationRange> <text>5.0-10.0</text> </observationRange> </ referenceRange> </observation> </component> <component> <observation moodCode="EVN" classCode="OBS"> <templateId root= "10.03.840.1.057550.10..22.4.2" /> <id nullFlavor="NA" /> < code codeSystem="local" code="HGBT" displayName="HEMOGLOBIN" /> < statusCode code="completed" /> <effectiveTime value="273257642249" /> <value unit="gm/dL" xsi:type="PQ" value="8.5" /> < interpretationCode codeSystem="local" code="*" /> <referenceRange> <observationRange> <text>12.0-16.0</text> </ observationRange> </referenceRange> </observation> </ component> <component> <observation moodCode="EVN" classCode="OBS"> <templateId root="10.03.840.1.052743.10..4.2" /> <id nullFlavor="NA" /> <code codeSystem="local" code="HCTT" displayName= "HEMATOCRIT" /> <statusCode code="completed" /> < effectiveTime value="841248594016" /> <value unit="%" xsi:type="PQ " value="27.6" /> <interpretationCode codeSystem="local" code="*" /> <referenceRange> <observationRange> <text>37.0- 47.0</text> </observationRange> </referenceRange> </ observation> </component> <component> <observation moodCode= "EVN" classCode="OBS"> <templateId root="840.1.390372.06.06.22.4.2 " /> <id nullFlavor="NA" /> <code codeSystem="local" code= "PLTT" displayName="PLATELET COUNT" /> <statusCode code="completed" /> <effectiveTime value="796838245439" /> <value unit="k/cumm" xsi:type="PQ" value="331" /> <referenceRange> < observationRange> <text>150-400</text> </ observationRange> </referenceRange> </observation> </ component> </organizer> </entry> <entry> <organizer moodCode="EVN" classCode="BATTERY"> <templateId root="10.03.840.1.931422.10..4.1" /> <id nullFlavor="NA" /> <code codeSystem="local" code="METABC" displayName="METABOLIC PANEL, COMPREHN" /> <statusCode code="completed" /> <component> <observation moodCode="EVN" classCode="OBS"> < templateId root="10.03.840.1.311740.22.4.2" /> <id nullFlavor="NA " /> <code codeSystem="local" code="K" displayName="POTASSIUM" /> <statusCode code="completed" /> <effectiveTime value=" " /> <value unit="mmol/L" xsi:type="PQ" value="3.7" /> < referenceRange> <observationRange> <text>3.5-5.3</text> </observationRange> </referenceRange> </observation > </component> <component> <observation moodCode="EVN" classCode="OBS"> <templateId root="216.840.1.721626.06.06.22.4.2" /> <id nullFlavor="NA" /> <code codeSystem="local" code="eGFR" displayName="EST GFR (MDRD)" /> <statusCode code="completed" /> <effectiveTime value="538771547385" /> <value unit="mL/min" xsi:type ="PQ" value="> 60" /> <referenceRange> <observationRange > <text>> 59</text> </observationRange> </ referenceRange> </observation> </component> <component> <observation moodCode="EVN" classCode="OBS"> <templateId root= "16.840.1.118066.06.06.22.4.2" /> <id nullFlavor="NA" /> < code codeSystem="local" code="GAP" displayName="ANION GAP" /> < statusCode code="completed" /> <effectiveTime value="" /> <value unit="mmol/L" xsi:type="PQ" value="8" /> < referenceRange> <observationRange> <text>5-15</text> </observationRange> </referenceRange> </observation> </component> <component> <observation moodCode="EVN" classCode= "OBS"> <templateId root="216.840.1.552313.10..4.2" /> < id nullFlavor="NA" /> <code codeSystem="local" code="eCrCl" displayName ="EST CrCl (CG)" /> <statusCode code="completed" /> < effectiveTime value="" /> <value unit="mL/min" xsi:type="PQ " value="57" /> <interpretationCode codeSystem="local" code="*" /> <referenceRange> <observationRange> <text>> 59< /text> </observationRange> </referenceRange> </ observation> </component> <component> <observation moodCode= "EVN" classCode="OBS"> <templateId root="2.840.1.338792.06.06.22.4.2 " /> <id nullFlavor="NA" /> <code codeSystem="local" code="GLU " displayName="GLUCOSE" /> <statusCode code="completed" /> < effectiveTime value="" /> <value unit="mg/dL" xsi:type="PQ " value="114" /> <interpretationCode codeSystem="local" code="*" /> <referenceRange> <observationRange> <text>70-99</ text> </observationRange> </referenceRange> </ observation> </component> <component> <observation moodCode= "EVN" classCode="OBS"> <templateId root="216.840.1.120137.10..4.2 " /> <id nullFlavor="NA" /> <code codeSystem="local" code="CA " displayName="CALCIUM" /> <statusCode code="completed" /> < effectiveTime value="" /> <value unit="mg/dL" xsi:type="PQ " value="8.3" /> <interpretationCode codeSystem="local" code="*" /> <referenceRange> <observationRange> <text>8.5- 10.1</text> </observationRange> </referenceRange> </ observation> </component> <component> <observation moodCode= "EVN" classCode="OBS"> <templateId root="16.840.1.054315.10..4.2 " /> <id nullFlavor="NA" /> <code codeSystem="local" code="BUN " displayName="BLOOD UREA NITROGEN" /> <statusCode code="completed" /> <effectiveTime value="356096035302" /> <value unit="mg/dL" xsi:type="PQ" value="19" /> <referenceRange> < observationRange> <text>7-20</text> </observationRange> </referenceRange> </observation> </component> < component> <observation moodCode="EVN" classCode="OBS"> < templateId root="10.03.840.1.118755.06.06.22.4.2" /> <id nullFlavor="NA " /> <code codeSystem="local" code="CREAT" displayName="CREATININE" /> <statusCode code="completed" /> <effectiveTime value= "854911598272" /> <value unit="mg/dL" xsi:type="PQ" value="0.9" /> <referenceRange> <observationRange> <text>0.6-1.0< /text> </observationRange> </referenceRange> </ observation> </component> <component> <observation moodCode= "EVN" classCode="OBS"> <templateId root="216.840.1.912768....4.2 " /> <id nullFlavor="NA" /> <code codeSystem="local" code="NA " displayName="SODIUM" /> <statusCode code="completed" /> < effectiveTime value="220545300529" /> <value unit="mmol/L" xsi:type="PQ " value="135" /> <referenceRange> <observationRange> <text>135-148</text> </observationRange> </ referenceRange> </observation> </component> <component> <observation moodCode="EVN" classCode="OBS"> <templateId root= "16.840.1.307544.10.20.22.4.2" /> <id nullFlavor="NA" /> < code codeSystem="local" code="CL" displayName="CHLORIDE" /> < statusCode code="completed" /> <effectiveTime value="746359731308" /> <value unit="mmol/L" xsi:type="PQ" value="103" /> < referenceRange> <observationRange> <text>98-110</text> </observationRange> </referenceRange> </observation> </component> <component> <observation moodCode="EVN" classCode ="OBS"> <templateId root="16.840.1.882769.10.20.22.4.2" /> < id nullFlavor="NA" /> <code codeSystem="local" code="AST" displayName= "AST/SGOT" /> <statusCode code="completed" /> <effectiveTime value="530896820844" /> <value unit="Units/L" xsi:type="PQ" value="12" /> <referenceRange> <observationRange> <text>10 -37</text> </observationRange> </referenceRange> </ observation> </component> <component> <observation moodCode= "EVN" classCode="OBS"> <templateId root="840.1.800395.10.4.2 " /> <id nullFlavor="NA" /> <code codeSystem="local" code="ALT " displayName="ALT/SGPT" /> <statusCode code="completed" /> < effectiveTime value="" /> <value unit="Units/L" xsi:type= "PQ" value="16" /> <referenceRange> <observationRange> <text>< 66</text> </observationRange> </ referenceRange> </observation> </component> <component> <observation moodCode="EVN" classCode="OBS"> <templateId root= "216.840.1.540364.06.06.22.4.2" /> <id nullFlavor="NA" /> < code codeSystem="local" code="CO2" displayName="CARBON DIOXIDE" /> < statusCode code="completed" /> <effectiveTime value="" /> <value unit="mmol/L" xsi:type="PQ" value="24" /> < referenceRange> <observationRange> <text>21-32</text> </observationRange> </referenceRange> </observation> </component> <component> <observation moodCode="EVN" classCode= "OBS"> <templateId root="16.840.1.765623.10.4.2" /> < id nullFlavor="NA" /> <code codeSystem="local" code="TP" displayName= "TOTAL PROTEIN" /> <statusCode code="completed" /> < effectiveTime value="" /> <value unit="gm/dL" xsi:type="PQ " value="6.3" /> <interpretationCode codeSystem="local" code="*" /> <referenceRange> <observationRange> <text>6.4-8.2 </text> </observationRange> </referenceRange> </ observation> </component> <component> <observation moodCode= "EVN" classCode="OBS"> <templateId root="216.840.1.260924.10.22.4.2 " /> <id nullFlavor="NA" /> <code codeSystem="local" code="ALB " displayName="ALBUMIN" /> <statusCode code="completed" /> < effectiveTime value="" /> <value unit="gm/dL" xsi:type="PQ " value="2.7" /> <interpretationCode codeSystem="local" code="*" /> <referenceRange> <observationRange> <text>3.4-5.0 </text> </observationRange> </referenceRange> </ observation> </component> <component> <observation moodCode= "EVN" classCode="OBS"> <templateId root="16.840.1.302897.06.06.22.4.2 " /> <id nullFlavor="NA" /> <code codeSystem="local" code= "BILTOT" displayName="BILI TOTAL" /> <statusCode code="completed" /> <effectiveTime value="002663860502" /> <value unit="mg/dL" xsi: type="PQ" value="0.1" /> <referenceRange> <observationRange > <text>0.0-1.0</text> </observationRange> </ referenceRange> </observation> </component> <component> <observation moodCode="EVN" classCode="OBS"> <templateId root= "216.840.1.412680.10..4.2" /> <id nullFlavor="NA" /> < code codeSystem="local" code="ALKP" displayName="ALKALINE PHOSPHATASE TOTAL" /> <statusCode code="completed" /> <effectiveTime value= "975701456285" /> <value unit="IU/L" xsi:type="PQ" value="85" /> <referenceRange> <observationRange> <text>45-117</ text> </observationRange> </referenceRange> </ observation> </component> </organizer> </entry> <entry> <organizer moodCode="EVN" classCode="BATTERY"> <templateId root= "216.840.1.180899.10..22.4.1" /> <id nullFlavor="NA" /> <code codeSystem="local" code="TSH" displayName="THYROID STIM HORMONE (TSH)" /> < statusCode code="completed" /> <component> <observation moodCode= "EVN" classCode="OBS"> <templateId root="216.840.1.309791.10..22.4.2 " /> <id nullFlavor="NA" /> <code codeSystem="local" code="TSH " displayName="THYROID STIM HORMONE (TSH)" /> <statusCode code= "completed" /> <effectiveTime value="019079661046" /> <value unit="uIU/mL" xsi:type="PQ" value="1.18" /> <referenceRange> <observationRange> <text>0.34-4.82</text> </ observationRange> </referenceRange> </observation> </ component> </organizer> </entry> <entry> <organizer moodCode="EVN" classCode="BATTERY"> <templateId root="216.840.1.297197.10..22.4.1" /> <id nullFlavor="NA" /> <code codeSystem="local" code="ALC" displayName ="ALCOHOL (ETHANOL) SERUM" /> <statusCode code="completed" /> < component> <observation moodCode="EVN" classCode="OBS"> < templateId root="216.840.1.882915.10.20.22.4.2" /> <id nullFlavor="NA " /> <code codeSystem="local" code="ALC" displayName="ALCOHOL (ETHANOL ) SERUM" /> <statusCode code="completed" /> <effectiveTime value="183685606856" /> <value unit="mg/dL" xsi:type="PQ" value="< 10" /> <referenceRange> <observationRange> < text> < 10</text> </observationRange> </referenceRange> </observation> </component> </organizer> </entry> <entry> < organizer moodCode="EVN" classCode="BATTERY"> <templateId root= "216.840.1.208570.10.20.22.4.1" /> <id nullFlavor="NA" /> <code codeSystem="local" code="ACTMN" displayName="ACETAMINOPHEN (TYLENOL)" /> < statusCode code="completed" /> <component> <observation moodCode= "EVN" classCode="OBS"> <templateId root="216.840.1.800385.10.20.22.4.2 " /> <id nullFlavor="NA" /> <code codeSystem="local" code= "ACTMN" displayName="ACETAMINOPHEN (TYLENOL)" /> <statusCode code= "completed" /> <effectiveTime value="772775280088" /> <value unit="mcg/mL" xsi:type="PQ" value="< 2" /> <referenceRange> <observationRange> <text>10-30</text> </ observationRange> </referenceRange> </observation> </ component> </organizer> </entry> <entry> <organizer moodCode="EVN" classCode="BATTERY"> <templateId root="840.1.740697.10.4.1" /> <id nullFlavor="NA" /> <code codeSystem="local" code="SALI" displayName="SALICYLATE (ASPIRIN)" /> <statusCode code="completed" /> <component> <observation moodCode="EVN" classCode="OBS"> < templateId root="10.03.840.1.421944.06.06.22.4.2" /> <id nullFlavor="NA " /> <code codeSystem="local" code="SALINUM" displayName="SALICYLATE" / > <statusCode code="completed" /> <effectiveTime value= "583080087705" /> <value unit="mg/dL" xsi:type="PQ" value="< 2.8" / > <referenceRange> <observationRange> <text>2.8 -29.0</text> </observationRange> </referenceRange> </ observation> </component> </organizer> </entry> <entry> <organizer moodCode="EVN" classCode="BATTERY"> <templateId root= "10.03.840.1.802976.06.06.22.4.1" /> <id nullFlavor="NA" /> <code codeSystem="local" code="HDLPRO" displayName="LIPID PANEL" /> <statusCode code="completed" /> <component> <observation moodCode="EVN" classCode="OBS"> <templateId root="10.03.840.1.101528.06.06.22.4.2" /> <id nullFlavor="NA" /> <code codeSystem="local" code="CHOL/HDL " displayName="CHOLESTEROL/HDL RATIO" /> <statusCode code="completed" / > <effectiveTime value="726604476619" /> <value unit="" xsi: type="PQ" value="3.7" /> <referenceRange> <observationRange > <text> < 5.0</text> </observationRange> </ referenceRange> </observation> </component> <component> <observation moodCode="EVN" classCode="OBS"> <templateId root= "10.03.840.1.354732.10.20.22.4.2" /> <id nullFlavor="NA" /> < code codeSystem="local" code="LDLX" displayName="LDL CHOLESTEROL" /> < statusCode code="completed" /> <effectiveTime value="307552477670" /> <value unit="mg/dL" xsi:type="PQ" value="109" /> < interpretationCode codeSystem="local" code="*" /> <referenceRange> <observationRange> <text>< 100</text> </ observationRange> </referenceRange> </observation> </ component> <component> <observation moodCode="EVN" classCode="OBS"> <templateId root="840.1.084521.10.22.4.2" /> <id nullFlavor="NA" /> <code codeSystem="local" code="VLDL" displayName= "VLDL CHOLESTEROL" /> <statusCode code="completed" /> < effectiveTime value="513549438553" /> <value unit="mg/dL" xsi:type="PQ " value="19" /> <referenceRange> <observationRange> <text>< 30</text> </observationRange> </ referenceRange> </observation> </component> <component> <observation moodCode="EVN" classCode="OBS"> <templateId root= "10.03.840.1.920795.10.20.22.4.2" /> <id nullFlavor="NA" /> < code codeSystem="local" code="TRIG" displayName="TRIGLYCERIDES" /> < statusCode code="completed" /> <effectiveTime value="" /> <value unit="mg/dL" xsi:type="PQ" value="95" /> < referenceRange> <observationRange> <text>< 150</text > </observationRange> </referenceRange> </observation > </component> <component> <observation moodCode="EVN" classCode="OBS"> <templateId root="216.840.1.666768.06.06.22.4.2" /> <id nullFlavor="NA" /> <code codeSystem="local" code="CHOL" displayName="CHOLESTEROL" /> <statusCode code="completed" /> < effectiveTime value="430358431193" /> <value unit="mg/dL" xsi:type="PQ " value="175" /> <referenceRange> <observationRange> <text>< 200</text> </observationRange> </ referenceRange> </observation> </component> <component> <observation moodCode="EVN" classCode="OBS"> <templateId root= "216.840.1.779304.06.06.22.4.2" /> <id nullFlavor="NA" /> < code codeSystem="local" code="HDL" displayName="HDL CHOLESTEROL" /> < statusCode code="completed" /> <effectiveTime value="150880553020" /> <value unit="mg/dL" xsi:type="PQ" value="47" /> < referenceRange> <observationRange> <text>> 39</text> </observationRange> </referenceRange> </observation > </component> </organizer> </entry> <entry> <organizer moodCode= "EVN" classCode="BATTERY"> <templateId root="216.840.1.285820.06.06.22.4.1 " /> <id nullFlavor="NA" /> <code codeSystem="local" code="UA" displayName="URINALYSIS, ROUTINE" /> <statusCode code="completed" /> < component> <observation moodCode="EVN" classCode="OBS"> < templateId root="10.03.840.1.528082.06.06.22.4.2" /> <id nullFlavor="NA " /> <code codeSystem="local" code="LEUESU" displayName="UA LEUKOCYTE ESTERASE DIPSTICK" /> <statusCode code="completed" /> < effectiveTime value="" /> <value unit="" xsi:type="PQ" value="NEGATIVE" /> <referenceRange> <observationRange> <text>NEGATIVE</text> </observationRange> </ referenceRange> </observation> </component> <component> <observation moodCode="EVN" classCode="OBS"> <templateId root= "840.1.804209.06.06.224.2" /> <id nullFlavor="NA" /> < code codeSystem="local" code="NITRIU" displayName="UA NITRITE DIPSTICK" /> <statusCode code="completed" /> <effectiveTime value=" " /> <value unit="" xsi:type="PQ" value="NEGATIVE" /> < referenceRange> <observationRange> <text>NEGATIVE</text > </observationRange> </referenceRange> </observation > </component> <component> <observation moodCode="EVN" classCode="OBS"> <templateId root="10.03.840.1.801214.06.06.224.2" /> <id nullFlavor="NA" /> <code codeSystem="local" code="PROTEIU " displayName="UA PROTEIN DIPSTICK" /> <statusCode code="completed" /> <effectiveTime value="" /> <value unit="" xsi: type="PQ" value="NEGATIVE" /> <referenceRange> < observationRange> <text>NEGATIVE</text> </ observationRange> </referenceRange> </observation> </ component> <component> <observation moodCode="EVN" classCode="OBS"> <templateId root="10.03.840.1.112011.06.06.22.4.2" /> <id nullFlavor="NA" /> <code codeSystem="local" code="DGLUU" displayName= "UA GLUCOSE DIPSTICK" /> <statusCode code="completed" /> < effectiveTime value="" /> <value unit="" xsi:type="PQ" value="NEGATIVE" /> <referenceRange> <observationRange> <text>NEGATIVE</text> </observationRange> </ referenceRange> </observation> </component> <component> <observation moodCode="EVN" classCode="OBS"> <templateId root= "10.03.840.1.386880.06.06.22.4.2" /> <id nullFlavor="NA" /> < code codeSystem="local" code="KETONU" displayName="UA KETONE DIPSTICK" /> <statusCode code="completed" /> <effectiveTime value=" " /> <value unit="" xsi:type="PQ" value="NEGATIVE" /> < referenceRange> <observationRange> <text>NEGATIVE</text > </observationRange> </referenceRange> </observation > </component> <component> <observation moodCode="EVN" classCode="OBS"> <templateId root="10.03.840.1.461669.22.4.2" /> <id nullFlavor="NA" /> <code codeSystem="local" code="UROBILU " displayName="UA UROBILINOGEN DIPSTICK" /> <statusCode code="completed " /> <effectiveTime value="541476649735" /> <value unit="" xsi :type="PQ" value="NORMAL" /> <referenceRange> < observationRange> <text>NORMAL</text> </observationRange > </referenceRange> </observation> </component> < component> <observation moodCode="EVN" classCode="OBS"> < templateId root="10.03.840.1.059983.10..4.2" /> <id nullFlavor="NA " /> <code codeSystem="local" code="BILU" displayName="UA BILIRUBIN DIPSTICK" /> <statusCode code="completed" /> <effectiveTime value="923766159025" /> <value unit="" xsi:type="PQ" value="NEGATIVE" / > <referenceRange> <observationRange> <text> NEGATIVE</text> </observationRange> </referenceRange> </observation> </component> <component> <observation moodCode ="EVN" classCode="OBS"> <templateId root= "10.03.840.1.089034.10..4.2" /> <id nullFlavor="NA" /> < code codeSystem="local" code="ADAM" displayName="UA BLOOD DIPSTICK" /> < statusCode code="completed" /> <effectiveTime value="272490535334" /> <value unit="" xsi:type="PQ" value="NEGATIVE" /> < referenceRange> <observationRange> <text>NEGATIVE</text > </observationRange> </referenceRange> </observation > </component> <component> <observation moodCode="EVN" classCode="OBS"> <templateId root="10.03.840.1.746966.104.2" /> <id nullFlavor="NA" /> <code codeSystem="local" code="SPGRU" displayName="UA SPECIFIC GRAVITY" /> <statusCode code="completed" /> <effectiveTime value="180009194322" /> <value unit="" xsi:type= "PQ" value="1.009" /> <interpretationCode codeSystem="local" code="*" / > <referenceRange> <observationRange> <text> 1.015-1.025</text> </observationRange> </referenceRange> </observation> </component> <component> <observation moodCode="EVN" classCode="OBS"> <templateId root= "10.03.840.1.995276.06.06.224.2" /> <id nullFlavor="NA" /> < code codeSystem="local" code="INGRID" displayName="UR PH" /> <statusCode code="completed" /> <effectiveTime value="478752121356" /> < value unit="" xsi:type="PQ" value="6.5" /> <referenceRange> <observationRange> <text>5.0-7.0</text> </ observationRange> </referenceRange> </observation> </ component> </organizer> </entry> <entry> <organizer moodCode="EVN" classCode="BATTERY"> <templateId root="10.03.840.1.430581.06.06.22.4.1" /> <id nullFlavor="NA" /> <code codeSystem="local" code="DRUGAB" displayName="UR DRUGS OF ABUSE SCREEN" /> <statusCode code="completed" /> <component> <observation moodCode="EVN" classCode="OBS"> < templateId root="10.03.840.1.891249.06.06.22.4.2" /> <id nullFlavor="NA " /> <code codeSystem="local" code="AMPHU" displayName="UR AMPHETAMINES SCREEN" /> <statusCode code="completed" /> < effectiveTime value="032451292336" /> <value unit="" xsi:type="PQ" value="POS (>1000 ng/mL)" /> <referenceRange> < observationRange> <text>NEGATIVE</text> </ observationRange> </referenceRange> </observation> </ component> <component> <observation moodCode="EVN" classCode="OBS"> <templateId root="2.16.840.1.114508.10..22.4.2" /> <id nullFlavor="NA" /> <code codeSystem="local" code="BARBU" displayName= "UR BARBITURATE SCREEN" /> <statusCode code="completed" /> < effectiveTime value="736613553904" /> <value unit="" xsi:type="PQ" value="NEG (< 200 ng/mL)" /> <referenceRange> < observationRange> <text>NEGATIVE</text> </ observationRange> </referenceRange> </observation> </ component> <component> <observation moodCode="EVN" classCode="OBS"> <templateId root="2.16.840.1.472234.10..22.4.2" /> <id nullFlavor="NA" /> <code codeSystem="local" code="DAUCOMMENT" displayName="DRUGS OF ABUSE SCREEN COMMENT" /> <statusCode code= "completed" /> <effectiveTime value="108833364471" /> <value unit="" xsi:type="PQ" value="" /> <referenceRange> < observationRange> <text /> </observationRange> </referenceRange> </observation> </component> <component> <observation moodCode="EVN" classCode="OBS"> <templateId root= "216.840.1.410730.10..22.4.2" /> <id nullFlavor="NA" /> < code codeSystem="local" code="OPIU" displayName="UR OPIATES SCREEN" /> <statusCode code="completed" /> <effectiveTime value="" /> <value unit="" xsi:type="PQ" value="NEG (< 300 ng/mL)" /> <referenceRange> <observationRange> <text>NEGATIVE</ text> </observationRange> </referenceRange> </ observation> </component> <component> <observation moodCode= "EVN" classCode="OBS"> <templateId root="216.840.1.623748.10...4.2 " /> <id nullFlavor="NA" /> <code codeSystem="local" code= "PCPU" displayName="UR PHENCYCLIDINE (PCP) SCREEN" /> <statusCode code= "completed" /> <effectiveTime value="" /> <value unit="" xsi:type="PQ" value="NEG (< 25 ng/mL)" /> <referenceRange > <observationRange> <text>NEGATIVE</text> </ observationRange> </referenceRange> </observation> </ component> <component> <observation moodCode="EVN" classCode="OBS"> <templateId root="216.840.1.941151.10..22.4.2" /> <id nullFlavor="NA" /> <code codeSystem="local" code="THCU" displayName=" UR CANNABINOIDS (THC) SCREEN" /> <statusCode code="completed" /> <effectiveTime value="233934274388" /> <value unit="" xsi:type="PQ " value="POS (> 50 ng/mL)" /> <referenceRange> < observationRange> <text>NEGATIVE</text> </ observationRange> </referenceRange> </observation> </ component> <component> <observation moodCode="EVN" classCode="OBS"> <templateId root="216.840.1.181312.10..22.4.2" /> <id nullFlavor="NA" /> <code codeSystem="local" code="COCAU" displayName= "UR COCAINE METABOLITE SCREEN" /> <statusCode code="completed" /> <effectiveTime value="131684099671" /> <value unit="" xsi:type="PQ " value="NEG (< 300 ng/mL)" /> <referenceRange> < observationRange> <text>NEGATIVE</text> </ observationRange> </referenceRange> </observation> </ component> <component> <observation moodCode="EVN" classCode="OBS"> <templateId root="10.03.840.1.427002.10...4.2" /> <id nullFlavor="NA" /> <code codeSystem="local" code="METHU" displayName= "UR METHADONE SCREEN" /> <statusCode code="completed" /> < effectiveTime value="361664581838" /> <value unit="" xsi:type="PQ" value="NEG (< 300 ng/mL)" /> <referenceRange> < observationRange> <text>NEGATIVE</text> </ observationRange> </referenceRange> </observation> </ component> <component> <observation moodCode="EVN" classCode="OBS"> <templateId root="16.840.1.610392.10...4.2" /> <id nullFlavor="NA" /> <code codeSystem="local" code="BENZU" displayName= "UR BENZODIAZEPINE SCREEN" /> <statusCode code="completed" /> <effectiveTime value="878046852536" /> <value unit="" xsi:type="PQ" value="NEG (< 200 ng/mL)" /> <referenceRange> < observationRange> <text>NEGATIVE</text> </ observationRange> </referenceRange> </observation> </ component> </organizer> </entry> <entry> <organizer moodCode="EVN" classCode="BATTERY"> <templateId root="2.16.840.1.294062.10.20.22.4.1" /> <id nullFlavor="NA" /> <code codeSystem="local" code="MRSAS" displayName="MRSA SURVEILLANCE SCREEN" /> <statusCode code="completed" /> <component> <observation moodCode="EVN" classCode="OBS"> < templateId root="2.16.840.1.990602.10.20.22.4.2" /> <id nullFlavor="NA " /> <code codeSystem="local" code="MB" displayName="Microbiology" /> <statusCode code="completed" /> <effectiveTime value= "977006148307" /> <value xsi:type="ST" value="<pre><b>MRSA SURVEILLANCE SCREEN</b> See Below: PATIENT REPORTS "I THINK I MIGHT HAVE HAD STAFF BEFORE"RESULT CALLED TO MARLI BARAJAS BY [facility] AT 1244, 03/20/17.MRSA SURVEILLANCE SCREEN(F) Cosme Date/Time: 03/19/2017 08:48 Irvin Date/Time: 03/20/2017 12:44SOURCE: ANTERIOR NARESSPEC DESC: CALL REPORT, RCT T [facility] CONTACT PRECAUTIONS SHOULD BE IMPLEMENTED 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)[facility] [place] [address]</pre>" /> <referenceRange> <observationRange> <text /> </observationRange> </referenceRange> </observation> </component> </organizer > </entry> <entry> <organizer moodCode="EVN" classCode="BATTERY"> < templateId root="10.03.840.1.855894.10..4.1" /> <id nullFlavor="NA" /> <code codeSystem="local" code="GLUMON" displayName="GLUCOSE (POC)" /> <statusCode code="completed" /> <component> <observation moodCode= "EVN" classCode="OBS"> <templateId root="840.1.023832.06.06.22.4.2 " /> <id nullFlavor="NA" /> <code codeSystem="local" code= "GLUMON" displayName="GLUCOSE (POC)" /> <statusCode code="completed" / > <effectiveTime value="[id number]" /> <value unit="mg/dL" xsi:type="PQ" value="143" /> <interpretationCode codeSystem="local" code="*" /> <referenceRange> <observationRange> <text>70-99</text> </observationRange> </referenceRange> </observation> </component> </organizer> </entry> <entry> < organizer moodCode="EVN" classCode="BATTERY"> <templateId root= "840.1.621771.06.06.22.4.1" /> <id nullFlavor="NA" /> <code codeSystem="local" code="GLUMON" displayName="GLUCOSE (POC)" /> < statusCode code="completed" /> <component> <observation moodCode= "EVN" classCode="OBS"> <templateId root="840.1.585185.06.06.22.4.2 " /> <id nullFlavor="NA" /> <code codeSystem="local" code= "GLUMON" displayName="GLUCOSE (POC)" /> <statusCode code="completed" / > <effectiveTime value="304132006895" /> <value unit="mg/dL" xsi:type="PQ" value="130" /> <interpretationCode codeSystem="local" code="*" /> <referenceRange> <observationRange> <text>70-99</text> </observationRange> </referenceRange> </observation> </component> </organizer> </entry> <entry> < organizer moodCode="EVN" classCode="BATTERY"> <templateId root= "10.03.840.1.476468.10.20.22.4.1" /> <id nullFlavor="NA" /> <code codeSystem="local" code="GLUMON" displayName="GLUCOSE (POC)" /> < statusCode code="completed" /> <component> <observation moodCode= "EVN" classCode="OBS"> <templateId root="10.03.840.1.819828.10.20.22.4.2 " /> <id nullFlavor="NA" /> <code codeSystem="local" code= "GLUMON" displayName="GLUCOSE (POC)" /> <statusCode code="completed" / > <effectiveTime value="447528666912" /> <value unit="mg/dL" xsi:type="PQ" value="169" /> <interpretationCode codeSystem="local" code="*" /> <referenceRange> <observationRange> <text>70-99</text> </observationRange> </referenceRange> </observation> </component> </organizer> </entry> <entry> < organizer moodCode="EVN" classCode="BATTERY"> <templateId root= "10.03.840.1.573459.10..22.4.1" /> <id nullFlavor="NA" /> <code codeSystem="local" code="CBCD" displayName="CBC W/DIFF" /> <statusCode code ="completed" /> <component> <observation moodCode="EVN" classCode= "OBS"> <templateId root="216.840.1.728373.10..4.2" /> < id nullFlavor="NA" /> <code codeSystem="local" code="EO#" displayName= "EOSINOPHIL #" /> <statusCode code="completed" /> < effectiveTime value="" /> <value unit="k/cumm" xsi:type="PQ " value="0.1" /> <referenceRange> <observationRange> <text>0.1-0.5</text> </observationRange> </ referenceRange> </observation> </component> <component> <observation moodCode="EVN" classCode="OBS"> <templateId root= "10.03.840.1.708924.06.06.22.4.2" /> <id nullFlavor="NA" /> < code codeSystem="local" code="EO%" displayName="EOSINOPHIL %" /> <statusCode code="completed" /> <effectiveTime value="" /> <value unit="%" xsi:type="PQ" value="1" /> < interpretationCode codeSystem="local" code="*" /> <referenceRange> <observationRange> <text>2-4</text> </ observationRange> </referenceRange> </observation> </ component> <component> <observation moodCode="EVN" classCode="OBS"> <templateId root="16.840.1.071894.10..4.2" /> <id nullFlavor="NA" /> <code codeSystem="local" code="GR#" displayName= "GRANULOCYTE #" /> <statusCode code="completed" /> < effectiveTime value="" /> <value unit="k/cumm" xsi:type="PQ " value="4.9" /> <referenceRange> <observationRange> <text>2.0-9.0</text> </observationRange> </ referenceRange> </observation> </component> <component> <observation moodCode="EVN" classCode="OBS"> <templateId root= "216.840.1.960164.10..4.2" /> <id nullFlavor="NA" /> < code codeSystem="local" code="GR%" displayName="GRANULOCYTE %" /> <statusCode code="completed" /> <effectiveTime value="421177069079 " /> <value unit="%" xsi:type="PQ" value="69" /> < referenceRange> <observationRange> <text>50-75</text> </observationRange> </referenceRange> </observation> </component> <component> <observation moodCode="EVN" classCode= "OBS"> <templateId root="216.840.1.004591.06.06.22.4.2" /> < id nullFlavor="NA" /> <code codeSystem="local" code="LY#" displayName= "LYMPHOCYTE #" /> <statusCode code="completed" /> < effectiveTime value="218631970594" /> <value unit="k/cumm" xsi:type="PQ " value="1.4" /> <referenceRange> <observationRange> <text>1.0-4.0</text> </observationRange> </ referenceRange> </observation> </component> <component> <observation moodCode="EVN" classCode="OBS"> <templateId root= "216.840.1.049657.22.4.2" /> <id nullFlavor="NA" /> < code codeSystem="local" code="LY%" displayName="LYMPHOCYTE %" /> <statusCode code="completed" /> <effectiveTime value="022438519224" /> <value unit="%" xsi:type="PQ" value="19" /> < interpretationCode codeSystem="local" code="*" /> <referenceRange> <observationRange> <text>20-30</text> </ observationRange> </referenceRange> </observation> </ component> <component> <observation moodCode="EVN" classCode="OBS"> <templateId root="216.840.1.354140.10.4.2" /> <id nullFlavor="NA" /> <code codeSystem="local" code="MCH" displayName= "MEAN CELL HGB" /> <statusCode code="completed" /> < effectiveTime value="331896639142" /> <value unit="pg" xsi:type="PQ" value="23.6" /> <interpretationCode codeSystem="local" code="*" /> <referenceRange> <observationRange> <text>27.0- 33.0</text> </observationRange> </referenceRange> </ observation> </component> <component> <observation moodCode= "EVN" classCode="OBS"> <templateId root="10.03.840.1.692407.1022.4.2 " /> <id nullFlavor="NA" /> <code codeSystem="local" code= "MCHC" displayName="MEAN CELL HGB CONCENTRATION" /> <statusCode code= "completed" /> <effectiveTime value="398490450132" /> <value unit="g/dL" xsi:type="PQ" value="31.4" /> <interpretationCode codeSystem="local" code="*" /> <referenceRange> < observationRange> <text>32.0-37.0</text> </ observationRange> </referenceRange> </observation> </ component> <component> <observation moodCode="EVN" classCode="OBS"> <templateId root="10.03.840.1.122356.10.20.22.4.2" /> <id nullFlavor="NA" /> <code codeSystem="local" code="MCV" displayName= "MEAN CELL VOLUME" /> <statusCode code="completed" /> < effectiveTime value="" /> <value unit="fl" xsi:type="PQ" value="75.2" /> <interpretationCode codeSystem="local" code="*" /> <referenceRange> <observationRange> <text>80.0- 100.0</text> </observationRange> </referenceRange> </ observation> </component> <component> <observation moodCode= "EVN" classCode="OBS"> <templateId root="840.1.051636.06.06.22.4.2 " /> <id nullFlavor="NA" /> <code codeSystem="local" code="MO# " displayName="MONOCYTE #" /> <statusCode code="completed" /> <effectiveTime value="" /> <value unit="k/cumm" xsi:type= "PQ" value="0.7" /> <referenceRange> <observationRange> <text>0.1-1.0</text> </observationRange> </ referenceRange> </observation> </component> <component> <observation moodCode="EVN" classCode="OBS"> <templateId root= "10.03.840.1.527126.10.20.22.4.2" /> <id nullFlavor="NA" /> < code codeSystem="local" code="MO%" displayName="MONOCYTE %" /> <statusCode code="completed" /> <effectiveTime value="" /> <value unit="%" xsi:type="PQ" value="10" /> < interpretationCode codeSystem="local" code="*" /> <referenceRange> <observationRange> <text>4-6</text> </ observationRange> </referenceRange> </observation> </ component> <component> <observation moodCode="EVN" classCode="OBS"> <templateId root="216.840.1.337649....4.2" /> <id nullFlavor="NA" /> <code codeSystem="local" code="MPVT" displayName= "MEAN PLATELET VOLUME" /> <statusCode code="completed" /> < effectiveTime value="" /> <value unit="fl" xsi:type="PQ" value="8.9" /> <referenceRange> <observationRange> <text>8.5-10.9</text> </observationRange> </ referenceRange> </observation> </component> <component> <observation moodCode="EVN" classCode="OBS"> <templateId root= "16.840.1.809307.10..22.4.2" /> <id nullFlavor="NA" /> < code codeSystem="local" code="OVAL" displayName="OVALOCYTES" /> < statusCode code="completed" /> <effectiveTime value="" /> <value unit="" xsi:type="PQ" value="NOTED" /> <referenceRange > <observationRange> <text /> </ observationRange> </referenceRange> </observation> </ component> <component> <observation moodCode="EVN" classCode="OBS"> <templateId root="2.16.840.1.143838.10.20.22.4.2" /> <id nullFlavor="NA" /> <code codeSystem="local" code="RBC" displayName=" RED BLOOD CELL" /> <statusCode code="completed" /> < effectiveTime value="687261404611" /> <value unit="m/cumm" xsi:type="PQ " value="4.11" /> <referenceRange> <observationRange> <text>4.00-6.00</text> </observationRange> </ referenceRange> </observation> </component> <component> <observation moodCode="EVN" classCode="OBS"> <templateId root= "10.03.840.1.989922.10.22.4.2" /> <id nullFlavor="NA" /> < code codeSystem="local" code="RDW" displayName="RED CELL DISTRIBUTION WIDTH" /> <statusCode code="completed" /> <effectiveTime value= "" /> <value unit="%" xsi:type="PQ" value="19.5" /> <interpretationCode codeSystem="local" code="*" /> < referenceRange> <observationRange> <text>11.0-15.6</text > </observationRange> </referenceRange> </observation > </component> <component> <observation moodCode="EVN" classCode="OBS"> <templateId root="10.03.840.1.499041.10.20.22.4.2" /> <id nullFlavor="NA" /> <code codeSystem="local" code="WBC" displayName="WHITE BLOOD CELL" /> <statusCode code="completed" /> <effectiveTime value="" /> <value unit="k/cumm" xsi: type="PQ" value="7.1" /> <referenceRange> <observationRange > <text>5.0-10.0</text> </observationRange> </ referenceRange> </observation> </component> <component> <observation moodCode="EVN" classCode="OBS"> <templateId root= "216.840.1.591941.10.20.22.4.2" /> <id nullFlavor="NA" /> < code codeSystem="local" code="HGBT" displayName="HEMOGLOBIN" /> < statusCode code="completed" /> <effectiveTime value="907717551597" /> <value unit="gm/dL" xsi:type="PQ" value="9.7" /> < interpretationCode codeSystem="local" code="*" /> <referenceRange> <observationRange> <text>12.0-16.0</text> </ observationRange> </referenceRange> </observation> </ component> <component> <observation moodCode="EVN" classCode="OBS"> <templateId root="10.03.840.1.331377.10..22.4.2" /> <id nullFlavor="NA" /> <code codeSystem="local" code="HCTT" displayName= "HEMATOCRIT" /> <statusCode code="completed" /> < effectiveTime value="334572302454" /> <value unit="%" xsi:type="PQ " value="30.9" /> <interpretationCode codeSystem="local" code="*" /> <referenceRange> <observationRange> <text>37.0- 47.0</text> </observationRange> </referenceRange> </ observation> </component> <component> <observation moodCode= "EVN" classCode="OBS"> <templateId root="16.840.1.619394.10.20.22.4.2 " /> <id nullFlavor="NA" /> <code codeSystem="local" code= "PLTT" displayName="PLATELET COUNT" /> <statusCode code="completed" /> <effectiveTime value="854822052048" /> <value unit="k/cumm" xsi:type="PQ" value="362" /> <referenceRange> < observationRange> <text>150-400</text> </ observationRange> </referenceRange> </observation> </ component> </organizer> </entry> <entry> <organizer moodCode="EVN" classCode="BATTERY"> <templateId root="216.840.1.449582.10..22.4.1" /> <id nullFlavor="NA" /> <code codeSystem="local" code="RENAL" displayName="RENAL FUNCTION PANEL" /> <statusCode code="completed" /> <component> <observation moodCode="EVN" classCode="OBS"> < templateId root="16.840.1.022113.10..22.4.2" /> <id nullFlavor="NA " /> <code codeSystem="local" code="K" displayName="POTASSIUM" /> <statusCode code="completed" /> <effectiveTime value="289401263549 " /> <value unit="mmol/L" xsi:type="PQ" value="4.9" /> < referenceRange> <observationRange> <text>3.5-5.3</text> </observationRange> </referenceRange> </observation > </component> <component> <observation moodCode="EVN" classCode="OBS"> <templateId root="16.840.1.151468.10..22.4.2" /> <id nullFlavor="NA" /> <code codeSystem="local" code="eGFR" displayName="EST GFR (MDRD)" /> <statusCode code="completed" /> <effectiveTime value="240583217175" /> <value unit="mL/min" xsi:type ="PQ" value="58" /> <interpretationCode codeSystem="local" code="*" /> <referenceRange> <observationRange> <text>&gt ; 59</text> </observationRange> </referenceRange> </ observation> </component> <component> <observation moodCode= "EVN" classCode="OBS"> <templateId root="216.840.1.044751.10.20.22.4.2 " /> <id nullFlavor="NA" /> <code codeSystem="local" code="GAP " displayName="ANION GAP" /> <statusCode code="completed" /> < effectiveTime value="238749744540" /> <value unit="mmol/L" xsi:type="PQ " value="9" /> <referenceRange> <observationRange> <text>5-15</text> </observationRange> </referenceRange > </observation> </component> <component> <observation moodCode="EVN" classCode="OBS"> <templateId root= "216.840.1.868061.10.20.22.4.2" /> <id nullFlavor="NA" /> < code codeSystem="local" code="eCrCl" displayName="EST CrCl (CG)" /> < statusCode code="completed" /> <effectiveTime value="632045816419" /> <value unit="mL/min" xsi:type="PQ" value="47" /> < interpretationCode codeSystem="local" code="*" /> <referenceRange> <observationRange> <text>> 59</text> </ observationRange> </referenceRange> </observation> </ component> <component> <observation moodCode="EVN" classCode="OBS"> <templateId root="216.840.1.211457.10..22.4.2" /> <id nullFlavor="NA" /> <code codeSystem="local" code="GLU" displayName= "GLUCOSE" /> <statusCode code="completed" /> <effectiveTime value="151889165451" /> <value unit="mg/dL" xsi:type="PQ" value="138" / > <interpretationCode codeSystem="local" code="*" /> < referenceRange> <observationRange> <text>70-99</text> </observationRange> </referenceRange> </observation> </component> <component> <observation moodCode="EVN" classCode= "OBS"> <templateId root="16.840.1.560345.10..22.4.2" /> < id nullFlavor="NA" /> <code codeSystem="local" code="CA" displayName= "CALCIUM" /> <statusCode code="completed" /> <effectiveTime value="317085083009" /> <value unit="mg/dL" xsi:type="PQ" value="8.5" / > <referenceRange> <observationRange> <text>8.5 -10.1</text> </observationRange> </referenceRange> </ observation> </component> <component> <observation moodCode= "EVN" classCode="OBS"> <templateId root="10.03.840.1.415112.10.20.22.4.2 " /> <id nullFlavor="NA" /> <code codeSystem="local" code="BUN " displayName="BLOOD UREA NITROGEN" /> <statusCode code="completed" /> <effectiveTime value="460668569173" /> <value unit="mg/dL" xsi:type="PQ" value="15" /> <referenceRange> < observationRange> <text>7-20</text> </observationRange> </referenceRange> </observation> </component> < component> <observation moodCode="EVN" classCode="OBS"> < templateId root="216.840.1.839094.10..4.2" /> <id nullFlavor="NA " /> <code codeSystem="local" code="CREAT" displayName="CREATININE" /> <statusCode code="completed" /> <effectiveTime value= "025628671737" /> <value unit="mg/dL" xsi:type="PQ" value="1.0" /> <referenceRange> <observationRange> <text>0.6-1.0< /text> </observationRange> </referenceRange> </ observation> </component> <component> <observation moodCode= "EVN" classCode="OBS"> <templateId root="216.840.1.529098.06.06.22.4.2 " /> <id nullFlavor="NA" /> <code codeSystem="local" code="NA " displayName="SODIUM" /> <statusCode code="completed" /> < effectiveTime value="059146055048" /> <value unit="mmol/L" xsi:type="PQ " value="134" /> <interpretationCode codeSystem="local" code="*" /> <referenceRange> <observationRange> <text>135-148 </text> </observationRange> </referenceRange> </ observation> </component> <component> <observation moodCode= "EVN" classCode="OBS"> <templateId root="16.840.1.822569...4.2 " /> <id nullFlavor="NA" /> <code codeSystem="local" code="CL " displayName="CHLORIDE" /> <statusCode code="completed" /> < effectiveTime value="984375471178" /> <value unit="mmol/L" xsi:type="PQ " value="103" /> <referenceRange> <observationRange> <text>98-110</text> </observationRange> </ referenceRange> </observation> </component> <component> <observation moodCode="EVN" classCode="OBS"> <templateId root= "16.840.1.179449.10..22.4.2" /> <id nullFlavor="NA" /> < code codeSystem="local" code="CO2" displayName="CARBON DIOXIDE" /> < statusCode code="completed" /> <effectiveTime value="751078712566" /> <value unit="mmol/L" xsi:type="PQ" value="22" /> < referenceRange> <observationRange> <text>21-32</text> </observationRange> </referenceRange> </observation> </component> <component> <observation moodCode="EVN" classCode= "OBS"> <templateId root="16.840.1.833490.10...4.2" /> < id nullFlavor="NA" /> <code codeSystem="local" code="ALB" displayName= "ALBUMIN" /> <statusCode code="completed" /> <effectiveTime value="368706246379" /> <value unit="gm/dL" xsi:type="PQ" value="3.0" / > <interpretationCode codeSystem="local" code="*" /> < referenceRange> <observationRange> <text>3.4-5.0</text> </observationRange> </referenceRange> </observation > </component> <component> <observation moodCode="EVN" classCode="OBS"> <templateId root="16.840.1.680008.10..22.4.2" /> <id nullFlavor="NA" /> <code codeSystem="local" code="PHOS" displayName="PHOSPHORUS" /> <statusCode code="completed" /> < effectiveTime value="546148711205" /> <value unit="mg/dL" xsi:type="PQ " value="3.5" /> <referenceRange> <observationRange> <text>2.5-4.9</text> </observationRange> </ referenceRange> </observation> </component> </organizer> </entry > <entry> <organizer moodCode="EVN" classCode="BATTERY"> <templateId root="16.840.1.965170.10..22.4.1" /> <id nullFlavor="NA" /> <code codeSystem="local" code="MAG" displayName="MAGNESIUM" /> <statusCode code= "completed" /> <component> <observation moodCode="EVN" classCode= "OBS"> <templateId root="16.840.1.014002.10..22.4.2" /> < id nullFlavor="NA" /> <code codeSystem="local" code="MAG" displayName= "MAGNESIUM" /> <statusCode code="completed" /> <effectiveTime value="963913458461" /> <value unit="mg/dL" xsi:type="PQ" value="1.9" / > <referenceRange> <observationRange> <text>1.8 -2.4</text> </observationRange> </referenceRange> </ observation> </component> </organizer> </entry> <entry> <organizer moodCode="EVN" classCode="BATTERY"> <templateId root= "10.03.840.1.389369.10.20.22.4.1" /> <id nullFlavor="NA" /> <code codeSystem="local" code="GLUMON" displayName="GLUCOSE (POC)" /> < statusCode code="completed" /> <component> <observation moodCode= "EVN" classCode="OBS"> <templateId root="216.840.1.730830.10.4.2 " /> <id nullFlavor="NA" /> <code codeSystem="local" code= "GLUMON" displayName="GLUCOSE (POC)" /> <statusCode code="completed" / > <effectiveTime value="741474850827" /> <value unit="mg/dL" xsi:type="PQ" value="125" /> <interpretationCode codeSystem="local" code="*" /> <referenceRange> <observationRange> <text>70-99</text> </observationRange> </referenceRange> </observation> </component> </organizer> </entry> <entry> < organizer moodCode="EVN" classCode="BATTERY"> <templateId root= "216.840.1.209908.10..4.1" /> <id nullFlavor="NA" /> <code codeSystem="local" code="CBCD" displayName="CBC W/DIFF" /> <statusCode code ="completed" /> <component> <observation moodCode="EVN" classCode= "OBS"> <templateId root="216.840.1.617123...4.2" /> < id nullFlavor="NA" /> <code codeSystem="local" code="BA#" displayName= "BASOPHIL #" /> <statusCode code="completed" /> < effectiveTime value="078977891321" /> <value unit="k/cumm" xsi:type="PQ " value="0.0" /> <referenceRange> <observationRange> <text>0.0-0.2</text> </observationRange> </ referenceRange> </observation> </component> <component> <observation moodCode="EVN" classCode="OBS"> <templateId root= "2.16.840.1.691279.10..22.4.2" /> <id nullFlavor="NA" /> < code codeSystem="local" code="BA%" displayName="BASOPHIL %" /> <statusCode code="completed" /> <effectiveTime value="" /> <value unit="%" xsi:type="PQ" value="1" /> < referenceRange> <observationRange> <text>0-1</text> </observationRange> </referenceRange> </observation> </component> <component> <observation moodCode="EVN" classCode= "OBS"> <templateId root="216.840.1.473995.06.06.22.4.2" /> < id nullFlavor="NA" /> <code codeSystem="local" code="EO#" displayName= "EOSINOPHIL #" /> <statusCode code="completed" /> < effectiveTime value="" /> <value unit="k/cumm" xsi:type="PQ " value="0.1" /> <referenceRange> <observationRange> <text>0.1-0.5</text> </observationRange> </ referenceRange> </observation> </component> <component> <observation moodCode="EVN" classCode="OBS"> <templateId root= "216.840.1.881458.10..22.4.2" /> <id nullFlavor="NA" /> < code codeSystem="local" code="EO%" displayName="EOSINOPHIL %" /> <statusCode code="completed" /> <effectiveTime value="" /> <value unit="%" xsi:type="PQ" value="1" /> < interpretationCode codeSystem="local" code="*" /> <referenceRange> <observationRange> <text>2-4</text> </ observationRange> </referenceRange> </observation> </ component> <component> <observation moodCode="EVN" classCode="OBS"> <templateId root="16.840.1.093125.10...4.2" /> <id nullFlavor="NA" /> <code codeSystem="local" code="GR#" displayName= "GRANULOCYTE #" /> <statusCode code="completed" /> < effectiveTime value="363568963864" /> <value unit="k/cumm" xsi:type="PQ " value="5.4" /> <referenceRange> <observationRange> <text>2.0-9.0</text> </observationRange> </ referenceRange> </observation> </component> <component> <observation moodCode="EVN" classCode="OBS"> <templateId root= "10.03.840.1.785188.10...4.2" /> <id nullFlavor="NA" /> < code codeSystem="local" code="GR%" displayName="GRANULOCYTE %" /> <statusCode code="completed" /> <effectiveTime value="583363476660 " /> <value unit="%" xsi:type="PQ" value="74" /> < referenceRange> <observationRange> <text>50-75</text> </observationRange> </referenceRange> </observation> </component> <component> <observation moodCode="EVN" classCode= "OBS"> <templateId root="216.840.1.879991.10..22.4.2" /> < id nullFlavor="NA" /> <code codeSystem="local" code="LY#" displayName= "LYMPHOCYTE #" /> <statusCode code="completed" /> < effectiveTime value="" /> <value unit="k/cumm" xsi:type="PQ " value="1.2" /> <referenceRange> <observationRange> <text>1.0-4.0</text> </observationRange> </ referenceRange> </observation> </component> <component> <observation moodCode="EVN" classCode="OBS"> <templateId root= "2.16.840.1.254578.10..4.2" /> <id nullFlavor="NA" /> < code codeSystem="local" code="LY%" displayName="LYMPHOCYTE %" /> <statusCode code="completed" /> <effectiveTime value="" /> <value unit="%" xsi:type="PQ" value="17" /> < interpretationCode codeSystem="local" code="*" /> <referenceRange> <observationRange> <text>20-30</text> </ observationRange> </referenceRange> </observation> </ component> <component> <observation moodCode="EVN" classCode="OBS"> <templateId root="216.840.1.320356.10.2022.4.2" /> <id nullFlavor="NA" /> <code codeSystem="local" code="MCH" displayName= "MEAN CELL HGB" /> <statusCode code="completed" /> < effectiveTime value="" /> <value unit="pg" xsi:type="PQ" value="23.5" /> <interpretationCode codeSystem="local" code="*" /> <referenceRange> <observationRange> <text>27.0- 33.0</text> </observationRange> </referenceRange> </ observation> </component> <component> <observation moodCode= "EVN" classCode="OBS"> <templateId root="10.03.840.1.472758.10.2022.4.2 " /> <id nullFlavor="NA" /> <code codeSystem="local" code= "[facility]CHC" displayName="MEAN CELL HGB CONCENTRATION" /> <statusCode code= "completed" /> <effectiveTime value="" /> <value unit="g/dL" xsi:type="PQ" value="30.8" /> <interpretationCode codeSystem="local" code="*" /> <referenceRange> < observationRange> <text>32.0-37.0</text> </ observationRange> </referenceRange> </observation> </ component> <component> <observation moodCode="EVN" classCode="OBS"> <templateId root="840.1.818554.1022.4.2" /> <id nullFlavor="NA" /> <code codeSystem="local" code="MCV" displayName= "MEAN CELL VOLUME" /> <statusCode code="completed" /> < effectiveTime value="" /> <value unit="fl" xsi:type="PQ" value="76.3" /> <interpretationCode codeSystem="local" code="*" /> <referenceRange> <observationRange> <text>80.0- 100.0</text> </observationRange> </referenceRange> </ observation> </component> <component> <observation moodCode= "EVN" classCode="OBS"> <templateId root="10.03.840.1.972104.10.2022.4.2 " /> <id nullFlavor="NA" /> <code codeSystem="local" code="MO# " displayName="MONOCYTE #" /> <statusCode code="completed" /> <effectiveTime value="041555909367" /> <value unit="k/cumm" xsi:type= "PQ" value="0.5" /> <referenceRange> <observationRange> <text>0.1-1.0</text> </observationRange> </ referenceRange> </observation> </component> <component> <observation moodCode="EVN" classCode="OBS"> <templateId root= "216.840.1.652206.10.20.22.4.2" /> <id nullFlavor="NA" /> < code codeSystem="local" code="MO%" displayName="MONOCYTE %" /> <statusCode code="completed" /> <effectiveTime value="877835462670" /> <value unit="%" xsi:type="PQ" value="7" /> < interpretationCode codeSystem="local" code="*" /> <referenceRange> <observationRange> <text>4-6</text> </ observationRange> </referenceRange> </observation> </ component> <component> <observation moodCode="EVN" classCode="OBS"> <templateId root="216.840.1.417699.10.20.22.4.2" /> <id nullFlavor="NA" /> <code codeSystem="local" code="MPVT" displayName= "MEAN PLATELET VOLUME" /> <statusCode code="completed" /> < effectiveTime value="172912603994" /> <value unit="fl" xsi:type="PQ" value="8.7" /> <referenceRange> <observationRange> <text>8.5-10.9</text> </observationRange> </ referenceRange> </observation> </component> <component> <observation moodCode="EVN" classCode="OBS"> <templateId root= "10.03.840.1.340501.10.20.22.4.2" /> <id nullFlavor="NA" /> < code codeSystem="local" code="RBC" displayName="RED BLOOD CELL" /> < statusCode code="completed" /> <effectiveTime value="" /> <value unit="m/cumm" xsi:type="PQ" value="4.17" /> < referenceRange> <observationRange> <text>4.00-6.00</text > </observationRange> </referenceRange> </observation > </component> <component> <observation moodCode="EVN" classCode="OBS"> <templateId root="10.03.840.1.344079.10.22.4.2" /> <id nullFlavor="NA" /> <code codeSystem="local" code="RDW" displayName="RED CELL DISTRIBUTION WIDTH" /> <statusCode code= "completed" /> <effectiveTime value="" /> <value unit="%" xsi:type="PQ" value="19.4" /> <interpretationCode codeSystem="local" code="*" /> <referenceRange> < observationRange> <text>11.0-15.6</text> </ observationRange> </referenceRange> </observation> </ component> <component> <observation moodCode="EVN" classCode="OBS"> <templateId root="10.03.840.1.706944.10.20.22.4.2" /> <id nullFlavor="NA" /> <code codeSystem="local" code="WBC" displayName= "WHITE BLOOD CELL" /> <statusCode code="completed" /> < effectiveTime value="" /> <value unit="k/cumm" xsi:type="PQ " value="7.3" /> <referenceRange> <observationRange> <text>5.0-10.0</text> </observationRange> </ referenceRange> </observation> </component> <component> <observation moodCode="EVN" classCode="OBS"> <templateId root= "10.03.840.1.392469.10..22.4.2" /> <id nullFlavor="NA" /> < code codeSystem="local" code="HGBT" displayName="HEMOGLOBIN" /> < statusCode code="completed" /> <effectiveTime value="802456372050" /> <value unit="gm/dL" xsi:type="PQ" value="9.8" /> < interpretationCode codeSystem="local" code="*" /> <referenceRange> <observationRange> <text>12.0-16.0</text> </ observationRange> </referenceRange> </observation> </ component> <component> <observation moodCode="EVN" classCode="OBS"> <templateId root="10.03.840.1.548830.10...4.2" /> <id nullFlavor="NA" /> <code codeSystem="local" code="HCTT" displayName= "HEMATOCRIT" /> <statusCode code="completed" /> < effectiveTime value="973650992973" /> <value unit="%" xsi:type="PQ " value="31.8" /> <interpretationCode codeSystem="local" code="*" /> <referenceRange> <observationRange> <text>37.0- 47.0</text> </observationRange> </referenceRange> </ observation> </component> <component> <observation moodCode= "EVN" classCode="OBS"> <templateId root="10.03.840.1.214075.10.20..4.2 " /> <id nullFlavor="NA" /> <code codeSystem="local" code= "PLTT" displayName="PLATELET COUNT" /> <statusCode code="completed" /> <effectiveTime value="" /> <value unit="k/cumm" xsi:type="PQ" value="361" /> <referenceRange> < observationRange> <text>150-400</text> </ observationRange> </referenceRange> </observation> </ component> </organizer> </entry> <entry> <organizer moodCode="EVN" classCode="BATTERY"> <templateId root="16.840.1.398038.10...4.1" /> <id nullFlavor="NA" /> <code codeSystem="local" code="MORPH" displayName="MORPHOLOGY" /> <statusCode code="completed" /> <component > <observation moodCode="EVN" classCode="OBS"> <templateId root= "16.840.1.568747.10...4.2" /> <id nullFlavor="NA" /> < code codeSystem="local" code="RMORPH" displayName="RBC MORPH" /> < statusCode code="completed" /> <effectiveTime value="" /> <value unit="" xsi:type="PQ" value="NOTED" /> <referenceRange > <observationRange> <text /> </ observationRange> </referenceRange> </observation> </ component> </organizer> </entry> <entry> <organizer moodCode="EVN" classCode="BATTERY"> <templateId root="16.840.1.303513.10...4.1" /> <id nullFlavor="NA" /> <code codeSystem="local" code="METABC" displayName="METABOLIC PANEL, COMPREHN" /> <statusCode code="completed" /> <component> <observation moodCode="EVN" classCode="OBS"> < templateId root="16.840.1.468230.10.4.2" /> <id nullFlavor="NA " /> <code codeSystem="local" code="K" displayName="POTASSIUM" /> <statusCode code="completed" /> <effectiveTime value="960429449557 " /> <value unit="mmol/L" xsi:type="PQ" value="4.4" /> < referenceRange> <observationRange> <text>3.5-5.3</text> </observationRange> </referenceRange> </observation > </component> <component> <observation moodCode="EVN" classCode="OBS"> <templateId root="10.03.840.1.457909.06.06.22.4.2" /> <id nullFlavor="NA" /> <code codeSystem="local" code="eGFR" displayName="EST GFR (MDRD)" /> <statusCode code="completed" /> <effectiveTime value="660361107875" /> <value unit="mL/min" xsi:type ="PQ" value="58" /> <interpretationCode codeSystem="local" code="*" /> <referenceRange> <observationRange> <text>&gt ; 59</text> </observationRange> </referenceRange> </ observation> </component> <component> <observation moodCode= "EVN" classCode="OBS"> <templateId root="10.03.840.1.450654.06.06.22.4.2 " /> <id nullFlavor="NA" /> <code codeSystem="local" code="GAP " displayName="ANION GAP" /> <statusCode code="completed" /> < effectiveTime value="021737312699" /> <value unit="mmol/L" xsi:type="PQ " value="9" /> <referenceRange> <observationRange> <text>5-15</text> </observationRange> </referenceRange > </observation> </component> <component> <observation moodCode="EVN" classCode="OBS"> <templateId root= "216.840.1.361564.10..22.4.2" /> <id nullFlavor="NA" /> < code codeSystem="local" code="eCrCl" displayName="EST CrCl (CG)" /> < statusCode code="completed" /> <effectiveTime value="732520590319" /> <value unit="mL/min" xsi:type="PQ" value="54" /> < interpretationCode codeSystem="local" code="*" /> <referenceRange> <observationRange> <text>> 59</text> </ observationRange> </referenceRange> </observation> </ component> <component> <observation moodCode="EVN" classCode="OBS"> <templateId root="10.03.840.1.453380.06.06.22.4.2" /> <id nullFlavor="NA" /> <code codeSystem="local" code="GLU" displayName= "GLUCOSE" /> <statusCode code="completed" /> <effectiveTime value="827695366356" /> <value unit="mg/dL" xsi:type="PQ" value="138" / > <interpretationCode codeSystem="local" code="*" /> < referenceRange> <observationRange> <text>70-99</text> </observationRange> </referenceRange> </observation> </component> <component> <observation moodCode="EVN" classCode= "OBS"> <templateId root="10.03.840.1.199530.10.22.4.2" /> < id nullFlavor="NA" /> <code codeSystem="local" code="CA" displayName= "CALCIUM" /> <statusCode code="completed" /> <effectiveTime value="447054727560" /> <value unit="mg/dL" xsi:type="PQ" value="9.4" / > <referenceRange> <observationRange> <text>8.5 -10.1</text> </observationRange> </referenceRange> </ observation> </component> <component> <observation moodCode= "EVN" classCode="OBS"> <templateId root="2.16.840.1.729086.10..22.4.2 " /> <id nullFlavor="NA" /> <code codeSystem="local" code="BUN " displayName="BLOOD UREA NITROGEN" /> <statusCode code="completed" /> <effectiveTime value="500075894800" /> <value unit="mg/dL" xsi:type="PQ" value="39" /> <interpretationCode codeSystem="local" code ="*" /> <referenceRange> <observationRange> < text>7-20</text> </observationRange> </referenceRange> </observation> </component> <component> <observation moodCode="EVN" classCode="OBS"> <templateId root= "216.840.1.000365.10...4.2" /> <id nullFlavor="NA" /> < code codeSystem="local" code="CREAT" displayName="CREATININE" /> < statusCode code="completed" /> <effectiveTime value="458587691877" /> <value unit="mg/dL" xsi:type="PQ" value="1.0" /> < referenceRange> <observationRange> <text>0.6-1.0</text> </observationRange> </referenceRange> </observation > </component> <component> <observation moodCode="EVN" classCode="OBS"> <templateId root="216.840.1.092575.10..22.4.2" /> <id nullFlavor="NA" /> <code codeSystem="local" code="NA" displayName="SODIUM" /> <statusCode code="completed" /> < effectiveTime value="" /> <value unit="mmol/L" xsi:type="PQ " value="133" /> <interpretationCode codeSystem="local" code="*" /> <referenceRange> <observationRange> <text>135-148 </text> </observationRange> </referenceRange> </ observation> </component> <component> <observation moodCode= "EVN" classCode="OBS"> <templateId root="216.840.1.095239...4.2 " /> <id nullFlavor="NA" /> <code codeSystem="local" code="CL " displayName="CHLORIDE" /> <statusCode code="completed" /> < effectiveTime value="" /> <value unit="mmol/L" xsi:type="PQ " value="100" /> <referenceRange> <observationRange> <text>98-110</text> </observationRange> </ referenceRange> </observation> </component> <component> <observation moodCode="EVN" classCode="OBS"> <templateId root= "216.840.1.129826.10..22.4.2" /> <id nullFlavor="NA" /> < code codeSystem="local" code="AST" displayName="AST/SGOT" /> < statusCode code="completed" /> <effectiveTime value="230792076716" /> <value unit="Units/L" xsi:type="PQ" value="20" /> < referenceRange> <observationRange> <text>10-37</text> </observationRange> </referenceRange> </observation> </component> <component> <observation moodCode="EVN" classCode= "OBS"> <templateId root="216.840.1.868714.10..22.4.2" /> < id nullFlavor="NA" /> <code codeSystem="local" code="ALT" displayName= "ALT/SGPT" /> <statusCode code="completed" /> <effectiveTime value="846497232954" /> <value unit="Units/L" xsi:type="PQ" value="29" /> <referenceRange> <observationRange> <text>& lt; 66</text> </observationRange> </referenceRange> < /observation> </component> <component> <observation moodCode= "EVN" classCode="OBS"> <templateId root="10.03.840.1.365950.10.4.2 " /> <id nullFlavor="NA" /> <code codeSystem="local" code="CO2 " displayName="CARBON DIOXIDE" /> <statusCode code="completed" /> <effectiveTime value="211279986119" /> <value unit="mmol/L" xsi: type="PQ" value="24" /> <referenceRange> <observationRange> <text>21-32</text> </observationRange> </ referenceRange> </observation> </component> <component> <observation moodCode="EVN" classCode="OBS"> <templateId root= "10.03.840.1.242138.10.4.2" /> <id nullFlavor="NA" /> < code codeSystem="local" code="TP" displayName="TOTAL PROTEIN" /> < statusCode code="completed" /> <effectiveTime value="126571597671" /> <value unit="gm/dL" xsi:type="PQ" value="7.5" /> < referenceRange> <observationRange> <text>6.4-8.2</text> </observationRange> </referenceRange> </observation > </component> <component> <observation moodCode="EVN" classCode="OBS"> <templateId root="216.840.1.548137.10..4.2" /> <id nullFlavor="NA" /> <code codeSystem="local" code="ALB" displayName="ALBUMIN" /> <statusCode code="completed" /> < effectiveTime value="684961140173" /> <value unit="gm/dL" xsi:type="PQ " value="3.4" /> <referenceRange> <observationRange> <text>3.4-5.0</text> </observationRange> </ referenceRange> </observation> </component> <component> <observation moodCode="EVN" classCode="OBS"> <templateId root= "16.840.1.781709.10..4.2" /> <id nullFlavor="NA" /> < code codeSystem="local" code="BILTOT" displayName="BILI TOTAL" /> < statusCode code="completed" /> <effectiveTime value="378018250461" /> <value unit="mg/dL" xsi:type="PQ" value="< 0.1" /> < referenceRange> <observationRange> <text>0.0-1.0</text> </observationRange> </referenceRange> </observation > </component> <component> <observation moodCode="EVN" classCode="OBS"> <templateId root="2.16.840.1.415354.10..22.4.2" /> <id nullFlavor="NA" /> <code codeSystem="local" code="ALKP" displayName="ALKALINE PHOSPHATASE TOTAL" /> <statusCode code="completed " /> <effectiveTime value="675313216164" /> <value unit="IU/L " xsi:type="PQ" value="100" /> <referenceRange> < observationRange> <text>45-117</text> </observationRange > </referenceRange> </observation> </component> </ organizer> </entry> <entry> <organizer moodCode="EVN" classCode="BATTERY"> <templateId root="216.840.1.664600.10...4.1" /> <id nullFlavor= "NA" /> <code codeSystem="local" code="TROPI" displayName="TROPONIN I" /> <statusCode code="completed" /> <component> <observation moodCode="EVN" classCode="OBS"> <templateId root= "216.840.1.577772.10..22.4.2" /> <id nullFlavor="NA" /> < code codeSystem="local" code="TROPI" displayName="TROPONIN I" /> < statusCode code="completed" /> <effectiveTime value="439820423035" /> <value unit="ng/mL" xsi:type="PQ" value="< 0.02" /> < referenceRange> <observationRange> <text>< 0.07</text > </observationRange> </referenceRange> </observation > </component> </organizer> </entry> <entry> <organizer moodCode= "EVN" classCode="BATTERY"> <templateId root="216.840.1.697413.10..22.4.1 " /> <id nullFlavor="NA" /> <code codeSystem="local" code="DIMER" displayName="D-DIMER QUANT" /> <statusCode code="completed" /> < component> <observation moodCode="EVN" classCode="OBS"> < templateId root="16.840.1.696298.10.4.2" /> <id nullFlavor="NA " /> <code codeSystem="local" code="DIMER" displayName="D-DIMER QUANT" /> <statusCode code="completed" /> <effectiveTime value= "775696111737" /> <value unit="ng/mL" xsi:type="PQ" value="934" /> <interpretationCode codeSystem="local" code="*" /> < referenceRange> <observationRange> <text>< 612</text > </observationRange> </referenceRange> </observation > </component> </organizer> </entry> <entry> <organizer moodCode= "EVN" classCode="BATTERY"> <templateId root="16.840.1.572084.06.06.22.4.1 " /> <id nullFlavor="NA" /> <code codeSystem="local" code="iCHEM8" displayName="CHEM/HEM PROFILE-BEDSIDE" /> <statusCode code="completed" /> <component> <observation moodCode="EVN" classCode="OBS"> < templateId root="16.840.1.178651.06.06.22.4.2" /> <id nullFlavor="NA " /> <code codeSystem="local" code="K" displayName="POTASSIUM" /> <statusCode code="completed" /> <effectiveTime value="515207066646 " /> <value unit="mmol/L" xsi:type="PQ" value="3.7" /> < referenceRange> <observationRange> <text>3.5-5.3</text> </observationRange> </referenceRange> </observation > </component> <component> <observation moodCode="EVN" classCode="OBS"> <templateId root="216.840.1.903455.10.22.4.2" /> <id nullFlavor="NA" /> <code codeSystem="local" code="CMETHOD " displayName="METHOD" /> <statusCode code="completed" /> < effectiveTime value="" /> <value unit="" xsi:type="PQ" value="Bedside" /> <referenceRange> <observationRange> <text /> </observationRange> </referenceRange> </observation> </component> <component> <observation moodCode="EVN" classCode="OBS"> <templateId root= "216.840.1.486592...4.2" /> <id nullFlavor="NA" /> < code codeSystem="local" code="GAP" displayName="ANION GAP" /> < statusCode code="completed" /> <effectiveTime value="" /> <value unit="mmol/L" xsi:type="PQ" value="21" /> < interpretationCode codeSystem="local" code="*" /> <referenceRange> <observationRange> <text>10-20</text> </ observationRange> </referenceRange> </observation> </ component> <component> <observation moodCode="EVN" classCode="OBS"> <templateId root="216.840.1.324339.10..4.2" /> <id nullFlavor="NA" /> <code codeSystem="local" code="HMETHOD" displayName= "METHOD" /> <statusCode code="completed" /> <effectiveTime value="" /> <value unit="" xsi:type="PQ" value="Bedside" / > <referenceRange> <observationRange> <text /> </observationRange> </referenceRange> </observation > </component> <component> <observation moodCode="EVN" classCode="OBS"> <templateId root="16.840.1.124388.10.20.22.4.2" /> <id nullFlavor="NA" /> <code codeSystem="local" code="GLU" displayName="GLUCOSE" /> <statusCode code="completed" /> < effectiveTime value="580551595464" /> <value unit="mg/dL" xsi:type="PQ " value="101" /> <interpretationCode codeSystem="local" code="*" /> <referenceRange> <observationRange> <text>70-99</ text> </observationRange> </referenceRange> </ observation> </component> <component> <observation moodCode= "EVN" classCode="OBS"> <templateId root="840.1.499811.10..4.2 " /> <id nullFlavor="NA" /> <code codeSystem="local" code="BUN " displayName="BLOOD UREA NITROGEN" /> <statusCode code="completed" /> <effectiveTime value="" /> <value unit="mg/dL" xsi:type="PQ" value="17" /> <referenceRange> < observationRange> <text>7-20</text> </observationRange> </referenceRange> </observation> </component> < component> <observation moodCode="EVN" classCode="OBS"> < templateId root="10.03.840.1.686736.10.20.22.4.2" /> <id nullFlavor="NA " /> <code codeSystem="local" code="CREAT" displayName="CREATININE" /> <statusCode code="completed" /> <effectiveTime value= "078444178379" /> <value unit="mg/dL" xsi:type="PQ" value="0.7" /> <referenceRange> <observationRange> <text>0.6-1.0< /text> </observationRange> </referenceRange> </ observation> </component> <component> <observation moodCode= "EVN" classCode="OBS"> <templateId root="2.16.840.1.410546.10.20.22.4.2 " /> <id nullFlavor="NA" /> <code codeSystem="local" code= "HGBT" displayName="HEMOGLOBIN" /> <statusCode code="completed" /> <effectiveTime value="656429425955" /> <value unit="gm/dL" xsi: type="PQ" value="9.5" /> <interpretationCode codeSystem="local" code="* " /> <referenceRange> <observationRange> <text> 12.0-16.0</text> </observationRange> </referenceRange> </observation> </component> <component> <observation moodCode="EVN" classCode="OBS"> <templateId root= "2.16.840.1.539684.10.20.22.4.2" /> <id nullFlavor="NA" /> < code codeSystem="local" code="HCTT" displayName="HEMATOCRIT" /> < statusCode code="completed" /> <effectiveTime value="601013892166" /> <value unit="%" xsi:type="PQ" value="28.0" /> < interpretationCode codeSystem="local" code="*" /> <referenceRange> <observationRange> <text>37.0-47.0</text> </ observationRange> </referenceRange> </observation> </ component> <component> <observation moodCode="EVN" classCode="OBS"> <templateId root="216.840.1.992938.10.20.22.4.2" /> <id nullFlavor="NA" /> <code codeSystem="local" code="NA" displayName= "SODIUM" /> <statusCode code="completed" /> <effectiveTime value="" /> <value unit="mmol/L" xsi:type="PQ" value="136" /> <referenceRange> <observationRange> <text> 135-148</text> </observationRange> </referenceRange> </observation> </component> <component> <observation moodCode= "EVN" classCode="OBS"> <templateId root="216.840.1.674692.10...4.2 " /> <id nullFlavor="NA" /> <code codeSystem="local" code="CL " displayName="CHLORIDE" /> <statusCode code="completed" /> < effectiveTime value="" /> <value unit="mmol/L" xsi:type="PQ " value="95" /> <interpretationCode codeSystem="local" code="*" /> <referenceRange> <observationRange> <text>98-110</ text> </observationRange> </referenceRange> </ observation> </component> <component> <observation moodCode= "EVN" classCode="OBS"> <templateId root="16.840.1.143701.10..22.4.2 " /> <id nullFlavor="NA" /> <code codeSystem="local" code="CO2 " displayName="CARBON DIOXIDE" /> <statusCode code="completed" /> <effectiveTime value="981608669567" /> <value unit="mmol/L" xsi: type="PQ" value="24" /> <referenceRange> <observationRange> <text>21-32</text> </observationRange> </ referenceRange> </observation> </component> <component> <observation moodCode="EVN" classCode="OBS"> <templateId root= "2.16.840.1.694637.10.22.4.2" /> <id nullFlavor="NA" /> < code codeSystem="local" code="CAION" displayName="CALCIUM IONIZED" /> < statusCode code="completed" /> <effectiveTime value="647344179981" /> <value unit="mg/dL" xsi:type="PQ" value="TEST NOT PERFORMED" /> <referenceRange> <observationRange> <text>4.5-5.3</ text> </observationRange> </referenceRange> </ observation> </component> </organizer> </entry> <entry> <organizer moodCode="EVN" classCode="BATTERY"> <templateId root= "2.16.840.1.068506.10..22.4.1" /> <id nullFlavor="NA" /> <code codeSystem="local" code="iTROPI" displayName="TROPONIN I BEDSIDE" /> < statusCode code="completed" /> <component> <observation moodCode= "EVN" classCode="OBS"> <templateId root="2.16.840.1.255172.10..22.4.2 " /> <id nullFlavor="NA" /> <code codeSystem="local" code= "CMETHOD" displayName="METHOD" /> <statusCode code="completed" /> <effectiveTime value="469297598487" /> <value unit="" xsi:type="PQ " value="Bedside" /> <referenceRange> <observationRange> <text /> </observationRange> </referenceRange> </observation> </component> <component> <observation moodCode="EVN" classCode="OBS"> <templateId root= "10.03.840.1.927065.10..22.4.2" /> <id nullFlavor="NA" /> < code codeSystem="local" code="TROPI" displayName="TROPONIN I" /> < statusCode code="completed" /> <effectiveTime value="387844411841" /> <value unit="ng/mL" xsi:type="PQ" value="< 0.04" /> < referenceRange> <observationRange> <text>< 0.11</text > </observationRange> </referenceRange> </observation > </component> </organizer> </entry> <entry> <organizer moodCode= "EVN" classCode="BATTERY"> <templateId root="840.1.388235.10..22.4.1 " /> <id nullFlavor="NA" /> <code codeSystem="local" code="CBCD" displayName="CBC W/DIFF" /> <statusCode code="completed" /> <component > <observation moodCode="EVN" classCode="OBS"> <templateId root= "10.03.840.1.589587.10..22.4.2" /> <id nullFlavor="NA" /> < code codeSystem="local" code="BA#" displayName="BASOPHIL #" /> < statusCode code="completed" /> <effectiveTime value="049921358078" /> <value unit="k/cumm" xsi:type="PQ" value="0.1" /> < referenceRange> <observationRange> <text>0.0-0.2</text> </observationRange> </referenceRange> </observation > </component> <component> <observation moodCode="EVN" classCode="OBS"> <templateId root="10.03.840.1.346637.06.06.22.4.2" /> <id nullFlavor="NA" /> <code codeSystem="local" code="BA% " displayName="BASOPHIL %" /> <statusCode code="completed" /> <effectiveTime value="" /> <value unit="%" xsi: type="PQ" value="1" /> <referenceRange> <observationRange> <text>0-1</text> </observationRange> </ referenceRange> </observation> </component> <component> <observation moodCode="EVN" classCode="OBS"> <templateId root= "2.16.840.1.683939.06.06.22.4.2" /> <id nullFlavor="NA" /> < code codeSystem="local" code="EO#" displayName="EOSINOPHIL #" /> < statusCode code="completed" /> <effectiveTime value="" /> <value unit="k/cumm" xsi:type="PQ" value="0.1" /> < referenceRange> <observationRange> <text>0.1-0.5</text> </observationRange> </referenceRange> </observation > </component> <component> <observation moodCode="EVN" classCode="OBS"> <templateId root="2.16.840.1.475123.06.06.22.4.2" /> <id nullFlavor="NA" /> <code codeSystem="local" code="EO% " displayName="EOSINOPHIL %" /> <statusCode code="completed" /> <effectiveTime value="" /> <value unit="%" xsi: type="PQ" value="3" /> <referenceRange> <observationRange> <text>2-4</text> </observationRange> </ referenceRange> </observation> </component> <component> <observation moodCode="EVN" classCode="OBS"> <templateId root= "10.03.840.1.536271.06.06.224.2" /> <id nullFlavor="NA" /> < code codeSystem="local" code="GR#" displayName="GRANULOCYTE #" /> < statusCode code="completed" /> <effectiveTime value="" /> <value unit="k/cumm" xsi:type="PQ" value="1.9" /> < interpretationCode codeSystem="local" code="*" /> <referenceRange> <observationRange> <text>2.0-9.0</text> </ observationRange> </referenceRange> </observation> </ component> <component> <observation moodCode="EVN" classCode="OBS"> <templateId root="10.03.840.1.791851.06.06.224.2" /> <id nullFlavor="NA" /> <code codeSystem="local" code="GR%" displayName= "GRANULOCYTE %" /> <statusCode code="completed" /> < effectiveTime value="" /> <value unit="%" xsi:type="PQ " value="40" /> <interpretationCode codeSystem="local" code="*" /> <referenceRange> <observationRange> <text>50-75</ text> </observationRange> </referenceRange> </ observation> </component> <component> <observation moodCode= "EVN" classCode="OBS"> <templateId root="10.03.840.1.570308.06.06.22.4.2 " /> <id nullFlavor="NA" /> <code codeSystem="local" code="LY# " displayName="LYMPHOCYTE #" /> <statusCode code="completed" /> <effectiveTime value="[id number]" /> <value unit="k/cumm" xsi:type ="PQ" value="2.0" /> <referenceRange> <observationRange> <text>1.0-4.0</text> </observationRange> </ referenceRange> </observation> </component> <component> <observation moodCode="EVN" classCode="OBS"> <templateId root= "16.840.1.693487.10..22.4.2" /> <id nullFlavor="NA" /> < code codeSystem="local" code="LY%" displayName="LYMPHOCYTE %" /> <statusCode code="completed" /> <effectiveTime value="720132017572" /> <value unit="%" xsi:type="PQ" value="41" /> < interpretationCode codeSystem="local" code="*" /> <referenceRange> <observationRange> <text>20-30</text> </ observationRange> </referenceRange> </observation> </ component> <component> <observation moodCode="EVN" classCode="OBS"> <templateId root="16.840.1.916019.10.20.22.4.2" /> <id nullFlavor="NA" /> <code codeSystem="local" code="MCH" displayName= "MEAN CELL HGB" /> <statusCode code="completed" /> < effectiveTime value="" /> <value unit="pg" xsi:type="PQ" value="24.5" /> <interpretationCode codeSystem="local" code="*" /> <referenceRange> <observationRange> <text>27.0- 33.0</text> </observationRange> </referenceRange> </ observation> </component> <component> <observation moodCode= "EVN" classCode="OBS"> <templateId root="10.03.840.1.975742.10.22.4.2 " /> <id nullFlavor="NA" /> <code codeSystem="local" code= "MCHC" displayName="MEAN CELL HGB CONCENTRATION" /> <statusCode code= "completed" /> <effectiveTime value="" /> <value unit="g/dL" xsi:type="PQ" value="31.1" /> <interpretationCode codeSystem="local" code="*" /> <referenceRange> < observationRange> <text>32.0-37.0</text> </ observationRange> </referenceRange> </observation> </ component> <component> <observation moodCode="EVN" classCode="OBS"> <templateId root="10.03.840.1.874346.1022.4.2" /> <id nullFlavor="NA" /> <code codeSystem="local" code="MCV" displayName= "MEAN CELL VOLUME" /> <statusCode code="completed" /> < effectiveTime value="" /> <value unit="fl" xsi:type="PQ" value="78.7" /> <interpretationCode codeSystem="local" code="*" /> <referenceRange> <observationRange> <text>80.0- 100.0</text> </observationRange> </referenceRange> </ observation> </component> <component> <observation moodCode= "EVN" classCode="OBS"> <templateId root="10.03.840.1.393964.102022.4.2 " /> <id nullFlavor="NA" /> <code codeSystem="local" code="MO# " displayName="MONOCYTE #" /> <statusCode code="completed" /> <effectiveTime value="" /> <value unit="k/cumm" xsi:type= "PQ" value="0.7" /> <referenceRange> <observationRange> <text>0.1-1.0</text> </observationRange> </ referenceRange> </observation> </component> <component> <observation moodCode="EVN" classCode="OBS"> <templateId root= "10.03.840.1.540253.1022.4.2" /> <id nullFlavor="NA" /> < code codeSystem="local" code="MO%" displayName="MONOCYTE %" /> <statusCode code="completed" /> <effectiveTime value="" /> <value unit="%" xsi:type="PQ" value="15" /> < interpretationCode codeSystem="local" code="*" /> <referenceRange> <observationRange> <text>4-6</text> </ observationRange> </referenceRange> </observation> </ component> <component> <observation moodCode="EVN" classCode="OBS"> <templateId root="10.03.840.1.864957.06.06.22.4.2" /> <id nullFlavor="NA" /> <code codeSystem="local" code="MPVT" displayName= "MEAN PLATELET VOLUME" /> <statusCode code="completed" /> < effectiveTime value="" /> <value unit="fl" xsi:type="PQ" value="8.8" /> <referenceRange> <observationRange> <text>8.5-10.9</text> </observationRange> </ referenceRange> </observation> </component> <component> <observation moodCode="EVN" classCode="OBS"> <templateId root= "10.03.840.1.030117.06.06.22.4.2" /> <id nullFlavor="NA" /> < code codeSystem="local" code="RBC" displayName="RED BLOOD CELL" /> < statusCode code="completed" /> <effectiveTime value="" /> <value unit="m/cumm" xsi:type="PQ" value="3.43" /> < interpretationCode codeSystem="local" code="*" /> <referenceRange> <observationRange> <text>4.00-6.00</text> </ observationRange> </referenceRange> </observation> </ component> <component> <observation moodCode="EVN" classCode="OBS"> <templateId root="216.840.1.869446.06.06.224.2" /> <id nullFlavor="NA" /> <code codeSystem="local" code="RDW" displayName=" RED CELL DISTRIBUTION WIDTH" /> <statusCode code="completed" /> <effectiveTime value="" /> <value unit="%" xsi:type= "PQ" value="19.5" /> <interpretationCode codeSystem="local" code="*" / > <referenceRange> <observationRange> <text> 11.0-15.6</text> </observationRange> </referenceRange> </observation> </component> <component> <observation moodCode="EVN" classCode="OBS"> <templateId root= "216.840.1.447739.10.4.2" /> <id nullFlavor="NA" /> < code codeSystem="local" code="WBC" displayName="WHITE BLOOD CELL" /> < statusCode code="completed" /> <effectiveTime value="" /> <value unit="k/cumm" xsi:type="PQ" value="4.8" /> < interpretationCode codeSystem="local" code="*" /> <referenceRange> <observationRange> <text>5.0-10.0</text> </ observationRange> </referenceRange> </observation> </ component> <component> <observation moodCode="EVN" classCode="OBS"> <templateId root="216.840.1.712585.10...4.2" /> <id nullFlavor="NA" /> <code codeSystem="local" code="HGBT" displayName= "HEMOGLOBIN" /> <statusCode code="completed" /> < effectiveTime value="" /> <value unit="gm/dL" xsi:type="PQ " value="8.4" /> <interpretationCode codeSystem="local" code="*" /> <referenceRange> <observationRange> <text>12.0- 16.0</text> </observationRange> </referenceRange> </ observation> </component> <component> <observation moodCode= "EVN" classCode="OBS"> <templateId root="10.03.840.1.197969.10...4.2 " /> <id nullFlavor="NA" /> <code codeSystem="local" code= "HCTT" displayName="HEMATOCRIT" /> <statusCode code="completed" /> <effectiveTime value="" /> <value unit="%" xsi: type="PQ" value="27.0" /> <interpretationCode codeSystem="local" code= "*" /> <referenceRange> <observationRange> < text>37.0-47.0</text> </observationRange> </referenceRange> </observation> </component> <component> <observation moodCode="EVN" classCode="OBS"> <templateId root= "216.840.1.844803.10.4.2" /> <id nullFlavor="NA" /> < code codeSystem="local" code="PLTT" displayName="PLATELET COUNT" /> < statusCode code="completed" /> <effectiveTime value="" /> <value unit="k/cumm" xsi:type="PQ" value="387" /> < referenceRange> <observationRange> <text>150-400</text> </observationRange> </referenceRange> </observation > </component> </organizer> </entry> <entry> <organizer moodCode= "EVN" classCode="BATTERY"> <templateId root="16.840.1.949548.06.06.224.1 " /> <id nullFlavor="NA" /> <code codeSystem="local" code="MORPH" displayName="MORPHOLOGY" /> <statusCode code="completed" /> <component > <observation moodCode="EVN" classCode="OBS"> <templateId root= "16.840.1.891053.06.06.22.4.2" /> <id nullFlavor="NA" /> < code codeSystem="local" code="RMORPH" displayName="RBC MORPH" /> < statusCode code="completed" /> <effectiveTime value="" /> <value unit="" xsi:type="PQ" value="NOTED" /> <referenceRange > <observationRange> <text /> </ observationRange> </referenceRange> </observation> </ component> </organizer> </entry> <entry> <organizer moodCode="EVN" classCode="BATTERY"> <templateId root="16.840.1.874290.06.06.22.4.1" /> <id nullFlavor="NA" /> <code codeSystem="local" code="LIVER" displayName="HEPATIC FUNCTION PANEL" /> <statusCode code="completed" /> <component> <observation moodCode="EVN" classCode="OBS"> < templateId root="216.840.1.531232.10...4.2" /> <id nullFlavor="NA " /> <code codeSystem="local" code="BILUC" displayName="BILI UNCONJUGATED" /> <statusCode code="completed" /> < effectiveTime value="" /> <value unit="mg/dL" xsi:type="PQ " value="0.0" /> <referenceRange> <observationRange> <text>0.0-0.7</text> </observationRange> </ referenceRange> </observation> </component> <component> <observation moodCode="EVN" classCode="OBS"> <templateId root= "2.840.1.185551.06.06.22.4.2" /> <id nullFlavor="NA" /> < code codeSystem="local" code="AST" displayName="AST/SGOT" /> < statusCode code="completed" /> <effectiveTime value="" /> <value unit="Units/L" xsi:type="PQ" value="17" /> < referenceRange> <observationRange> <text>10-37</text> </observationRange> </referenceRange> </observation> </component> <component> <observation moodCode="EVN" classCode= "OBS"> <templateId root="216.840.1.008072.10...4.2" /> < id nullFlavor="NA" /> <code codeSystem="local" code="ALT" displayName= "ALT/SGPT" /> <statusCode code="completed" /> <effectiveTime value="" /> <value unit="Units/L" xsi:type="PQ" value="22" /> <referenceRange> <observationRange> <text>& lt; 66</text> </observationRange> </referenceRange> < /observation> </component> <component> <observation moodCode= "EVN" classCode="OBS"> <templateId root="10.03.840.1.881970.10.20.22.4.2 " /> <id nullFlavor="NA" /> <code codeSystem="local" code="TP " displayName="TOTAL PROTEIN" /> <statusCode code="completed" /> <effectiveTime value="" /> <value unit="gm/dL" xsi:type ="PQ" value="6.4" /> <referenceRange> <observationRange> <text>6.4-8.2</text> </observationRange> </ referenceRange> </observation> </component> <component> <observation moodCode="EVN" classCode="OBS"> <templateId root= "840.1.321106.06.06.22.4.2" /> <id nullFlavor="NA" /> < code codeSystem="local" code="ALB" displayName="ALBUMIN" /> < statusCode code="completed" /> <effectiveTime value="" /> <value unit="gm/dL" xsi:type="PQ" value="2.9" /> < interpretationCode codeSystem="local" code="*" /> <referenceRange> <observationRange> <text>3.4-5.0</text> </ observationRange> </referenceRange> </observation> </ component> <component> <observation moodCode="EVN" classCode="OBS"> <templateId root="10.03.840.1.132898.10..22.4.2" /> <id nullFlavor="NA" /> <code codeSystem="local" code="BILTOT" displayName= "BILI TOTAL" /> <statusCode code="completed" /> < effectiveTime value="" /> <value unit="mg/dL" xsi:type="PQ " value="< 0.1" /> <referenceRange> <observationRange> <text>0.0-1.0</text> </observationRange> </ referenceRange> </observation> </component> <component> <observation moodCode="EVN" classCode="OBS"> <templateId root= "2.16.840.1.693251.10.20.22.4.2" /> <id nullFlavor="NA" /> < code codeSystem="local" code="ALKP" displayName="ALKALINE PHOSPHATASE TOTAL" /> <statusCode code="completed" /> <effectiveTime value= "" /> <value unit="IU/L" xsi:type="PQ" value="80" /> <referenceRange> <observationRange> <text>45-117</ text> </observationRange> </referenceRange> </ observation> </component> <component> <observation moodCode= "EVN" classCode="OBS"> <templateId root="2.16.840.1.446569.10..22.4.2 " /> <id nullFlavor="NA" /> <code codeSystem="local" code= "BILC" displayName="BILI CONJUGATED" /> <statusCode code="completed" / > <effectiveTime value="" /> <value unit="mg/dL" xsi:type="PQ" value="< 0.1" /> <referenceRange> < observationRange> <text>0.0-0.3</text> </ observationRange> </referenceRange> </observation> </ component> </organizer> </entry> <entry> <organizer moodCode="EVN" classCode="BATTERY"> <templateId root="10.03.840.1.321958.06.06.22.4.1" /> <id nullFlavor="NA" /> <code codeSystem="local" code="LIP" displayName ="LIPASE" /> <statusCode code="completed" /> <component> < observation moodCode="EVN" classCode="OBS"> <templateId root= "840.1.887204.06.06.22.4.2" /> <id nullFlavor="NA" /> < code codeSystem="local" code="LIP" displayName="LIPASE" /> <statusCode code="completed" /> <effectiveTime value="366301256107" /> < value unit="Units/L" xsi:type="PQ" value="92" /> <referenceRange> <observationRange> <text>73-393</text> </ observationRange> </referenceRange> </observation> </ component> </organizer> </entry> <entry> <organizer moodCode="EVN" classCode="BATTERY"> <templateId root="840.1.799858.06.06.22.4.1" /> <id nullFlavor="NA" /> <code codeSystem="local" code="ACTMN" displayName="ACETAMINOPHEN (TYLENOL)" /> <statusCode code="completed" /> <component> <observation moodCode="EVN" classCode="OBS"> < templateId root="10.03.840.1.166224.06.06.22.4.2" /> <id nullFlavor="NA " /> <code codeSystem="local" code="ACTMN" displayName="ACETAMINOPHEN ( TYLENOL)" /> <statusCode code="completed" /> <effectiveTime value="678925809378" /> <value unit="mcg/mL" xsi:type="PQ" value="< 2" /> <referenceRange> <observationRange> <text >10-30</text> </observationRange> </referenceRange> < /observation> </component> </organizer> </entry> <entry> < organizer moodCode="EVN" classCode="BATTERY"> <templateId root= "16.840.1.093485.10..22.4.1" /> <id nullFlavor="NA" /> <code codeSystem="local" code="SALI" displayName="SALICYLATE (ASPIRIN)" /> < statusCode code="completed" /> <component> <observation moodCode= "EVN" classCode="OBS"> <templateId root="10.03.840.1.813232..22.4.2 " /> <id nullFlavor="NA" /> <code codeSystem="local" code= "SALINUM" displayName="SALICYLATE" /> <statusCode code="completed" /> <effectiveTime value="252935299807" /> <value unit="mg/dL" xsi :type="PQ" value="< 2.8" /> <referenceRange> < observationRange> <text>2.8-29.0</text> </ observationRange> </referenceRange> </observation> </ component> </organizer> </entry> <entry> <organizer moodCode="EVN" classCode="BATTERY"> <templateId root="10.03.840.1.575011.10.22.4.1" /> <id nullFlavor="NA" /> <code codeSystem="local" code="DRUGAB" displayName="UR DRUGS OF ABUSE SCREEN" /> <statusCode code="completed" /> <component> <observation moodCode="EVN" classCode="OBS"> < templateId root="10.03.840.1.247654.06.06.22.4.2" /> <id nullFlavor="NA " /> <code codeSystem="local" code="AMPHU" displayName="UR AMPHETAMINES SCREEN" /> <statusCode code="completed" /> < effectiveTime value="958220768033" /> <value unit="" xsi:type="PQ" value="POS (>1000 ng/mL)" /> <referenceRange> < observationRange> <text>NEGATIVE</text> </ observationRange> </referenceRange> </observation> </ component> <component> <observation moodCode="EVN" classCode="OBS"> <templateId root="2.16.840.1.932372.10..22.4.2" /> <id nullFlavor="NA" /> <code codeSystem="local" code="BARBU" displayName= "UR BARBITURATE SCREEN" /> <statusCode code="completed" /> < effectiveTime value="818096331062" /> <value unit="" xsi:type="PQ" value="NEG (< 200 ng/mL)" /> <referenceRange> < observationRange> <text>NEGATIVE</text> </ observationRange> </referenceRange> </observation> </ component> <component> <observation moodCode="EVN" classCode="OBS"> <templateId root="2.16.840.1.671813.10..22.4.2" /> <id nullFlavor="NA" /> <code codeSystem="local" code="DAUCOMMENT" displayName="DRUGS OF ABUSE SCREEN COMMENT" /> <statusCode code= "completed" /> <effectiveTime value="" /> <value unit="" xsi:type="PQ" value="" /> <referenceRange> < observationRange> <text /> </observationRange> </referenceRange> </observation> </component> <component> <observation moodCode="EVN" classCode="OBS"> <templateId root= "2.16.840.1.676155.10..22.4.2" /> <id nullFlavor="NA" /> < code codeSystem="local" code="OPIU" displayName="UR OPIATES SCREEN" /> <statusCode code="completed" /> <effectiveTime value="382571628985" /> <value unit="" xsi:type="PQ" value="NEG (< 300 ng/mL)" /> <referenceRange> <observationRange> <text>NEGATIVE</ text> </observationRange> </referenceRange> </ observation> </component> <component> <observation moodCode= "EVN" classCode="OBS"> <templateId root="2.16.840.1.223329.10..4.2 " /> <id nullFlavor="NA" /> <code codeSystem="local" code= "PCPU" displayName="UR PHENCYCLIDINE (PCP) SCREEN" /> <statusCode code= "completed" /> <effectiveTime value="610638538270" /> <value unit="" xsi:type="PQ" value="NEG (< 25 ng/mL)" /> <referenceRange > <observationRange> <text>NEGATIVE</text> </ observationRange> </referenceRange> </observation> </ component> <component> <observation moodCode="EVN" classCode="OBS"> <templateId root="216.840.1.568993.10..22.4.2" /> <id nullFlavor="NA" /> <code codeSystem="local" code="THCU" displayName=" UR CANNABINOIDS (THC) SCREEN" /> <statusCode code="completed" /> <effectiveTime value="919592437553" /> <value unit="" xsi:type="PQ " value="NEG (< 50 ng/mL)" /> <referenceRange> < observationRange> <text>NEGATIVE</text> </ observationRange> </referenceRange> </observation> </ component> <component> <observation moodCode="EVN" classCode="OBS"> <templateId root="216.840.1.308406.10.20.22.4.2" /> <id nullFlavor="NA" /> <code codeSystem="local" code="COCAU" displayName= "UR COCAINE METABOLITE SCREEN" /> <statusCode code="completed" /> <effectiveTime value="931553461392" /> <value unit="" xsi:type="PQ " value="NEG (< 300 ng/mL)" /> <referenceRange> < observationRange> <text>NEGATIVE</text> </ observationRange> </referenceRange> </observation> </ component> <component> <observation moodCode="EVN" classCode="OBS"> <templateId root="16.840.1.621490.10..22.4.2" /> <id nullFlavor="NA" /> <code codeSystem="local" code="METHU" displayName= "UR METHADONE SCREEN" /> <statusCode code="completed" /> < effectiveTime value="826843693758" /> <value unit="" xsi:type="PQ" value="NEG (< 300 ng/mL)" /> <referenceRange> < observationRange> <text>NEGATIVE</text> </ observationRange> </referenceRange> </observation> </ component> <component> <observation moodCode="EVN" classCode="OBS"> <templateId root="216.840.1.638951.10.20.22.4.2" /> <id nullFlavor="NA" /> <code codeSystem="local" code="BENZU" displayName= "UR BENZODIAZEPINE SCREEN" /> <statusCode code="completed" /> <effectiveTime value="832063604273" /> <value unit="" xsi:type="PQ" value="NEG (< 200 ng/mL)" /> <referenceRange> < observationRange> <text>NEGATIVE</text> </ observationRange> </referenceRange> </observation> </ component> </organizer> </entry> <entry> <organizer moodCode="EVN" classCode="BATTERY"> <templateId root="216.840.1.501746.10..22.4.1" /> <id nullFlavor="NA" /> <code codeSystem="local" code="UA" displayName= "URINALYSIS, ROUTINE" /> <statusCode code="completed" /> <component> <observation moodCode="EVN" classCode="OBS"> <templateId root= "216.840.1.357526.10...4.2" /> <id nullFlavor="NA" /> < code codeSystem="local" code="LEUESU" displayName="UA LEUKOCYTE ESTERASE DIPSTICK" /> <statusCode code="completed" /> <effectiveTime value="" /> <value unit="" xsi:type="PQ" value="NEGATIVE" / > <referenceRange> <observationRange> <text> NEGATIVE</text> </observationRange> </referenceRange> </observation> </component> <component> <observation moodCode ="EVN" classCode="OBS"> <templateId root= "216.840.1.859388.10..22.4.2" /> <id nullFlavor="NA" /> < code codeSystem="local" code="NITRIU" displayName="UA NITRITE DIPSTICK" /> <statusCode code="completed" /> <effectiveTime value=" " /> <value unit="" xsi:type="PQ" value="NEGATIVE" /> < referenceRange> <observationRange> <text>NEGATIVE</text > </observationRange> </referenceRange> </observation > </component> <component> <observation moodCode="EVN" classCode="OBS"> <templateId root="10.03.840.1.003666.10.4.2" /> <id nullFlavor="NA" /> <code codeSystem="local" code="PROTEIU " displayName="UA PROTEIN DIPSTICK" /> <statusCode code="completed" /> <effectiveTime value="" /> <value unit="" xsi: type="PQ" value="NEGATIVE" /> <referenceRange> < observationRange> <text>NEGATIVE</text> </ observationRange> </referenceRange> </observation> </ component> <component> <observation moodCode="EVN" classCode="OBS"> <templateId root="840.1.820134.06.06.22.4.2" /> <id nullFlavor="NA" /> <code codeSystem="local" code="DGLUU" displayName= "UA GLUCOSE DIPSTICK" /> <statusCode code="completed" /> < effectiveTime value="" /> <value unit="" xsi:type="PQ" value="NEGATIVE" /> <referenceRange> <observationRange> <text>NEGATIVE</text> </observationRange> </ referenceRange> </observation> </component> <component> <observation moodCode="EVN" classCode="OBS"> <templateId root= "840.1.792574.06.06.22.4.2" /> <id nullFlavor="NA" /> < code codeSystem="local" code="KETONU" displayName="UA KETONE DIPSTICK" /> <statusCode code="completed" /> <effectiveTime value=" " /> <value unit="" xsi:type="PQ" value="NEGATIVE" /> < referenceRange> <observationRange> <text>NEGATIVE</text > </observationRange> </referenceRange> </observation > </component> <component> <observation moodCode="EVN" classCode="OBS"> <templateId root="16.840.1.563437.06.06.22.4.2" /> <id nullFlavor="NA" /> <code codeSystem="local" code="UROBILU " displayName="UA UROBILINOGEN DIPSTICK" /> <statusCode code="completed " /> <effectiveTime value="" /> <value unit="" xsi :type="PQ" value="NORMAL" /> <referenceRange> < observationRange> <text>NORMAL</text> </observationRange > </referenceRange> </observation> </component> < component> <observation moodCode="EVN" classCode="OBS"> < templateId root="10.03.840.1.930968.06.06.22.4.2" /> <id nullFlavor="NA " /> <code codeSystem="local" code="BILU" displayName="UA BILIRUBIN DIPSTICK" /> <statusCode code="completed" /> <effectiveTime value="" /> <value unit="" xsi:type="PQ" value="NEGATIVE" / > <referenceRange> <observationRange> <text> NEGATIVE</text> </observationRange> </referenceRange> </observation> </component> <component> <observation moodCode ="EVN" classCode="OBS"> <templateId root= "16.840.1.329827.22.4.2" /> <id nullFlavor="NA" /> < code codeSystem="local" code="ADAM" displayName="UA BLOOD DIPSTICK" /> < statusCode code="completed" /> <effectiveTime value="" /> <value unit="" xsi:type="PQ" value="NEGATIVE" /> < referenceRange> <observationRange> <text>NEGATIVE</text > </observationRange> </referenceRange> </observation > </component> <component> <observation moodCode="EVN" classCode="OBS"> <templateId root="216.840.1.287934.10..22.4.2" /> <id nullFlavor="NA" /> <code codeSystem="local" code="SPGRU" displayName="UA SPECIFIC GRAVITY" /> <statusCode code="completed" /> <effectiveTime value="" /> <value unit="" xsi:type= "PQ" value="1.015" /> <referenceRange> <observationRange> <text>1.015-1.025</text> </observationRange> </ referenceRange> </observation> </component> <component> <observation moodCode="EVN" classCode="OBS"> <templateId root= "216.840.1.370459.10..22.4.2" /> <id nullFlavor="NA" /> < code codeSystem="local" code="INGRID" displayName="UR PH" /> <statusCode code="completed" /> <effectiveTime value="" /> < value unit="" xsi:type="PQ" value="6.0" /> <referenceRange> <observationRange> <text>5.0-7.0</text> </ observationRange> </referenceRange> </observation> </ component> </organizer> </entry> <entry> <organizer moodCode="EVN" classCode="BATTERY"> <templateId root="16.840.1.778577.10..4.1" /> <id nullFlavor="NA" /> <code codeSystem="local" code="ALC" displayName ="ALCOHOL (ETHANOL) SERUM" /> <statusCode code="completed" /> < component> <observation moodCode="EVN" classCode="OBS"> < templateId root="840.1.210426.06.06.22.4.2" /> <id nullFlavor="NA " /> <code codeSystem="local" code="ALC" displayName="ALCOHOL (ETHANOL ) SERUM" /> <statusCode code="completed" /> <effectiveTime value="" /> <value unit="mg/dL" xsi:type="PQ" value="< 10" /> <referenceRange> <observationRange> < text> < 10</text> </observationRange> </referenceRange> </observation> </component> </organizer> </entry> <entry> < organizer moodCode="EVN" classCode="BATTERY"> <templateId root= "10.03.840.1.372125.06.06.22.4.1" /> <id nullFlavor="NA" /> <code codeSystem="local" code="LACTG" displayName="LACTIC ACID" /> <statusCode code="completed" /> <component> <observation moodCode="EVN" classCode="OBS"> <templateId root="10.03.840.1.536620.10.4.2" /> <id nullFlavor="NA" /> <code codeSystem="local" code="LACT" displayName="LACTIC ACID" /> <statusCode code="completed" /> < effectiveTime value="" /> <value unit="mmol/L" xsi:type="PQ " value="0.6" /> <referenceRange> <observationRange> <text>0.5-2.0</text> </observationRange> </ referenceRange> </observation> </component> </organizer> </entry > <entry> <organizer moodCode="EVN" classCode="BATTERY"> <templateId root="2.16.840.1.166436.10.20.22.4.1" /> <id nullFlavor="NA" /> <code codeSystem="local" code="BC" displayName="BLOOD CULTURE" /> <statusCode code="completed" /> <component> <observation moodCode="EVN" classCode="OBS"> <templateId root="2.16.840.1.859183.10.20.22.4.2" /> <id nullFlavor="NA" /> <code codeSystem="local" code="MB" displayName="Microbiology" /> <statusCode code="completed" /> <effectiveTime value="[id number]" /> <value xsi:type="ST" value="<pre ><b>BLOOD CULTURE</b> See BelowIs this a Possible Sepsis/Sepsis patient? NoIs this the first BLOOD CULTURE for this hospital visit? YesBLOOD CULTURE(F) Cosme Date/Time: 04/22/2017 20:34 Irvin Date /Time: 04/28/2017 06:42SOURCE: BLOODSPEC DESC: [id number] [facility] [place] [address]</pre>" /> < referenceRange> <observationRange> <text /> < /observationRange> </referenceRange> </observation> </ component> </organizer> </entry> <entry> <organizer moodCode="EVN" classCode="BATTERY"> <templateId root="2.16.840.1.414989.10.20.22.4.1" /> <id nullFlavor="NA" /> <code codeSystem="local" code="BC" displayName= "BLOOD CULTURE" /> <statusCode code="completed" /> <component> <observation moodCode="EVN" classCode="OBS"> <templateId root= "216.840.1.912581.10.4.2" /> <id nullFlavor="NA" /> < code codeSystem="local" code="MB" displayName="Microbiology" /> < statusCode code="completed" /> <effectiveTime value="[id number]" /> <value xsi:type="ST" value="<pre><b>BLOOD CULTURE</b> See BelowIs this a Possible Sepsis/Sepsis patient? NoIs this the first BLOOD CULTURE for this hospital visit? YesBLOOD CULTURE(F) Cosme Date/Time: 04/22/2017 20: 34 Irvin Date/Time: 04/28/2017 06:43SOURCE: BLOODSPEC DESC: [id number] [facility] [place] [address]</pre>" /> <referenceRange> < observationRange> <text /> </observationRange> </referenceRange> </observation> </component> </organizer> </ entry> <entry> <organizer moodCode="EVN" classCode="BATTERY"> < templateId root="216.840.1.798274.10..4.1" /> <id nullFlavor="NA" /> <code codeSystem="local" code="CNL246" displayName="Ferritin" /> < statusCode code="completed" /> <component> <observation moodCode= "EVN" classCode="OBS"> <templateId root="216.840.1.870632.10..4.2 " /> <id nullFlavor="NA" /> <code codeSystem="local" code= "Vrl692" displayName="Ferritin" /> <statusCode code="completed" /> <effectiveTime value="910000249834" /> <value unit="ng/mL" xsi: type="PQ" value="15.93" /> <referenceRange> < observationRange> <text>4.63-204.00</text> </ observationRange> </referenceRange> </observation> </ component> </organizer> </entry> <entry> <organizer moodCode="EVN" classCode="BATTERY"> <templateId root="216.840.1.554895.10..22.4.1" /> <id nullFlavor="NA" /> <code codeSystem="local" code="155159" displayName="Reticulocyte Count" /> <statusCode code="completed" /> < component> <observation moodCode="EVN" classCode="OBS"> < templateId root="2.16.840.1.010754.10..22.4.2" /> <id nullFlavor="NA " /> <code codeSystem="local" code="731477" displayName="Reticulocyte Count" /> <statusCode code="completed" /> <effectiveTime value ="501988963883" /> <value unit="%" xsi:type="PQ" value="0.9" /> <referenceRange> <observationRange> <text>0.6-2.6 </text> </observationRange> </referenceRange> </ observation> </component> </organizer> </entry> <entry> <organizer moodCode="EVN" classCode="BATTERY"> <templateId root= "2.16.840.1.198437.10..22.4.1" /> <id nullFlavor="NA" /> <code codeSystem="local" code="SZX714" displayName="Peripheral Smear" /> < statusCode code="completed" /> <component> <observation moodCode= "EVN" classCode="OBS"> <templateId root="2.16.840.1.999324.10.20.22.4.2 " /> <id nullFlavor="NA" /> <code codeSystem="local" code= "Kpx86115" displayName="Peripheral smear" /> <statusCode code= "completed" /> <effectiveTime value="789317942308" /> <value unit="" xsi:type="PQ" value="Sent to [facility] for review" /> < referenceRange> <observationRange> <text /> < /observationRange> </referenceRange> </observation> </ component> </organizer> </entry> <entry> <organizer moodCode="EVN" classCode="BATTERY"> <templateId root="2.16.840.1.577764.10.20.22.4.1" /> <id nullFlavor="NA" /> <code codeSystem="local" code="627140" displayName="Reticulocyte Count" /> <statusCode code="completed" /> < component> <observation moodCode="EVN" classCode="OBS"> < templateId root="2.16.840.1.638789.10.20.22.4.2" /> <id nullFlavor="NA " /> <code codeSystem="local" code="957570" displayName="Reticulocyte Count" /> <statusCode code="completed" /> <effectiveTime value ="820829295211" /> <value unit="%" xsi:type="PQ" value="0.9" /> <referenceRange> <observationRange> <text>0.6-2.6 </text> </observationRange> </referenceRange> </ observation> </component> </organizer> </entry></section> Encounters ACCT No. Visit Date/Time Discharge Status Pt. Type Provider Facility Loc./Unit Complaint [id number] 11/18/2016 11:00:00 11/18/2016 12:00:00 DIS Outpatient [id number] 02/20/2016 22:36:00 02/20/2016 23:59:59 CLS [facility] ED [id number] 04/22/2017 19:08:00 04/22/2017 22:06:00 DIS Emergency Garrett Fam DO [facility] W.RADHA [id number] 04/13/2017 04:38:00 04/13/2017 07:45:00 [id number]/19/2017 01:00:00 03/20/2017 16:25:00 DIS Inpatient Luzma HAYES, Balbina Tang [facility].4CE [id number] 02/14/2017 09:49:00 02/14/2017 10:04:00 DIS Emergency [id number] 11/26/2016 04:40:00 11/26/2016 09:12:00 DIS [id number] 11/22/2016 22:01:00 11/23/2016 01:06:00 DIS Emergency Rodger [facility]AYES, [facility] [id number] 07/11/2016 09:15:00 07/11/2016 09:15:00 DIS Outpatient Davon HAYES, Devin Rey [facility] W.RAD [id number] 05/30/2016 21:12:00 05/30/2016 23:53:00 DIS Emergency Dani HAYES, Moe García [facility] W.RADHA [id number] 05/27/2016 22:09:00 05/28/2016 01:19:00 DIS Emergency Yony [facility]ES, [facility] [id number] 04/27/2016 17:07:00 04/27/2016 19:44:00 DIS Emergency Edward HAYES, Avel [facility] WRADHA [id number] 12/18/2015 11:03:00 12/18/2015 15:40:00 DIS Emergency Mich HAYES, Thien Barcenas [facility] [id number] 10/11/2015 11:14:00 10/11/2015 15:19:00 DIS Emergency Lissa HAYES, Fidencio Honeycutt [facility].RADHA [id number] 08/24/2015 19:41:00 08/24/2015 21:57:00 DIS Emergency Pedro BLOOM, Alton [facility] [id number] 04/12/2015 05:57:00 04/12/2015 06:58:00 DIS Emergency Maverick HAYES, Elmer Sorto [facility] [id number] 03/09/2015 18:41:00 03/09/2015 20:37:00 DIS [id number] 02/22/2015 12:15:00 02/24/2015 20:45:00 DIS Inpatient Caitie HAYES, [facility].S [id number] 01/30/2016 08:56:00 Document Registration [id number] 09/18/2016 07:52:00 09/18/2016 10:50:00 DIS Outpatient Gayathri Mohan [facility] DS Gastro egdp [id number] 09/09/2016 12:57:00 09/09/2016 23:59:00 DIS Outpatient Gayathri Mohan [facility] Mur Gasto Chronic GERD Former Prateek pt. [id number] 10/18/2015 08:54:00 10/18/2015 10:55:00 DIS Outpatient Fidencio Chandra [facility] DS Gastro COMBOP [id number] 10/04/2015 13:44:00 10/04/2015 23:59:00 DIS Outpatient Fidencio Chandra [facility] [place] NPV HERNIA COLON SCREEN [id number] 11/19/2017 06:19:00 Document Registration [id number] 04/04/2017 15:05:24 ACT Document Registration [id number] 06/17/2017 11:14:00 06/17/2017 23:59:59 [facility] ED [id number] 11/18/2017 12:26:00 11/18/2017 23:59:00 DIS Outpatient RENY COLLAZO [id number] 10/15/2017 15:00:00 10/15/2017 23:59:00 DIS Outpatient RENY COLLAZO [id number] 10/15/2017 13:32:00 10/15/2017 23:59:00 DIS Outpatient RENY COLLAZO [id number] 04/04/2016 15:19:49 04/04/2016 23:59:59 CLS Outpatient Edwardo Max D [id number] 05/25/2017 11:12:00 05/25/2017 16:47:00 DIS Emergency Martinez Terri [facility] on [facility] ED eder moraandrew [id number] 12/05/2016 11:18:00 12/05/2016 23:59:00 DIS Outpatient Serena Morfin [facility] on [facility] Pulm Func J45.40- Asthma [id number] 10/17/2016 10:28:00 10/17/2016 23:59:00 DIS Outpatient Mays Ronald [facility] on [facility] Mammo Screening [id number] 07/04/2015 15:21:00 07/04/2015 23:59:00 DIS Outpatient April Rolle MD [facility] on [facility] Diag Rad Chronic Back Pain [id number] 06/29/2015 09:51:00 06/29/2015 12:17:00 DIS Emergency Alton Vasquez DO [facility] on [facility] ED n/v [id number] 09/10/2016 05:15:48 Document Registration [id number] 06/30/2015 05:16:36 Document Registration [id number] 03/30/2016 13:00:00 03/30/2016 23:59:59 CLS Preadmit [facility] ED [id number] 05/28/2017 13:34:03 05/28/2017 15:05: 09 DIS Outpatient SERENA MORFIN N.P. [id number] 02/27/2017 14:36:37 02/27/2017 15:11: 50 DIS Outpatient ADRIAN WHITTAKERYN [id number] 12/12/2016 13:42:04 12/12/2016 14:34: 38 DIS Outpatient SERENA MORFIN N.P. [id number] 11/14/2016 13:50:37 11/14/2016 14:01: 08 DIS Outpatient SERENA MORFIN N.P. [id number] 10/09/2016 08:09:59 10/09/2016 09:52: 28 DIS Outpatient SERENA MORFIN N.P.[id number] 09/19/2016 09:01:43 09/19/2016 10:16: 48 DIS Outpatient SERENA MORFIN N.P.[id number] 07/04/2016 10:25:30 07/04/2016 11:15: 08 DIS Outpatient SERENA MORFIN N.P. [id number] 05/20/2016 15:11:54 05/20/2016 16:24: 35 DIS Outpatient SERENA MORFIN N.P. [id number] 06/17/2017 11:49:00 Document Registration [id number] 06/26/2017 10:15:00 06/26/2017 23:59:59 CLS Outpatient [facility] [id number] 06/23/2017 11:28:00 06/23/2017 23:59:59 CLS Outpatient [facility] [id number] 06/16/2017 10:24:00 06/16/2017 23:59:59 CLS Outpatient [facility] [id number] 07/23/2017 11:21:00 Document Registration [id number] 06/19/2017 15:15:00 Document Registration [id number] 06/17/2017 11:17:00 06/17/2017 23:59:59 CLS Emergency YASH HAYES, YESSENIA Sands [facility] ED [id number] 03/30/2016 15:03:00 03/31/2016 13:21:00 DIS Inpatient BRISSA SO DO [facility] 3SE [id number] 02/20/2016 22:39:00 02/21/2016 01:40:00 DIS Emergency LORNA HAYES, DIXON Sorto [facility] ED [id number] 01/01/2018 09:41:00 01/01/2018 23:59:59 CLS Outpatient RENY COLLAZO MD [facility] REHAB CERVICAL DDD AND NECK PAIN [id number] 11/27/2017 13:39:00 11/27/2017 23:59:59 CLS Outpatient KAYLENE HAYES, SILVIA [facility] ONC [id number] 11/24/2017 08:32:00 11/24/2017 23:59:59 CLS Outpatient RENY COLLAZO MD [facility] RAD SCREENING CERVILAGIA [id number] 12/12/2016 15:44:01 12/12/2016 23:59:59 CLS Outpatient
--- OUTSIDE RECORDS SUMMARY | 2018-01-05 16:33 | XMS REPORT | Continuity of Care Document ---
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 <interpretationCode codeSystem="local" code="*" /> <referenceRange> <observationRange> <text>37.0- 47.0</text> </observationRange> </referenceRange> </ observation> </component> <component> <observation moodCode= "EVN" classCode="OBS"> <templateId root="2.16.840.1.792693.1022.4.2 " /> <id nullFlavor="NA" /> <code codeSystem="local" code="PLT " displayName="PLATELET COUNT" /> <statusCode code="completed" /> <effectiveTime value="897890396201" /> <value unit="k/cumm" xsi: type="PQ" value="542" /> <interpretationCode codeSystem="local" code="* " /> <referenceRange> <observationRange> <text> 150-400</text> </observationRange> </referenceRange> </observation> </component> </organizer> </entry> <entry> < organizer moodCode="EVN" classCode="BATTERY"> <templateId root= "2.16.840.1.436998.10..22.4.1" /> <id nullFlavor="NA" /> <code codeSystem="local" code="LIVER" displayName="HEPATIC FUNCTION PANEL" /> < statusCode code="completed" /> <component> <observation moodCode= "EVN" classCode="OBS"> <templateId root="216.840.1.026735.10.22.4.2 " /> <id nullFlavor="NA" /> <code codeSystem="local" code= "BILUC" displayName="BILI UNCONJUGATED" /> <statusCode code="completed " /> <effectiveTime value="768452072866" /> <value unit="mg/dL " xsi:type="PQ" value="0.1" /> <referenceRange> < observationRange> <text>0.0-0.7</text> </ observationRange> </referenceRange> </observation> </ component> <component> <observation moodCode="EVN" classCode="OBS"> <templateId root="216.840.1.691029.10...4.2" /> <id nullFlavor="NA" /> <code codeSystem="local" code="AST" displayName="AST /SGOT" /> <statusCode code="completed" /> <effectiveTime value ="095356233905" /> <value unit="Units/L" xsi:type="PQ" value="13" /> <referenceRange> <observationRange> <text>10-37< /text> </observationRange> </referenceRange> </ observation> </component> <component> <observation moodCode= "EVN" classCode="OBS"> <templateId root="216.840.1.320163.06.06.22.4.2 " /> <id nullFlavor="NA" /> <code codeSystem="local" code="ALT " displayName="ALT/SGPT" /> <statusCode code="completed" /> < effectiveTime value="697888107245" /> <value unit="Units/L" xsi:type= "PQ" value="18" /> <referenceRange> <observationRange> <text>< 66</text> </observationRange> </ referenceRange> </observation> </component> <component> <observation moodCode="EVN" classCode="OBS"> <templateId root= "16.840.1.287589.10..22.4.2" /> <id nullFlavor="NA" /> < code codeSystem="local" code="TP" displayName="TOTAL PROTEIN" /> < statusCode code="completed" /> <effectiveTime value="425785836370" /> <value unit="gm/dL" xsi:type="PQ" value="8.0" /> < referenceRange> <observationRange> <text>6.4-8.2</text> </observationRange> </referenceRange> </observation > </component> <component> <observation moodCode="EVN" classCode="OBS"> <templateId root="216.840.1.362394.10..22.4.2" /> <id nullFlavor="NA" /> <code codeSystem="local" code="ALB" displayName="ALBUMIN" /> <statusCode code="completed" /> < effectiveTime value="571047815693" /> <value unit="gm/dL" xsi:type="PQ " value="3.5" /> <referenceRange> <observationRange> <text>3.4-5.0</text> </observationRange> </ referenceRange> </observation> </component> <component> <observation moodCode="EVN" classCode="OBS"> <templateId root= "10.03.840.1.053025.10..4.2" /> <id nullFlavor="NA" /> < code codeSystem="local" code="BILTOT" displayName="BILI TOTAL" /> < statusCode code="completed" /> <effectiveTime value="064298531749" /> <value unit="mg/dL" xsi:type="PQ" value="0.2" /> < referenceRange> <observationRange> <text>0.0-1.0</text> </observationRange> </referenceRange> </observation > </component> <component> <observation moodCode="EVN" classCode="OBS"> <templateId root="10.03.840.1.414421.10..22.4.2" /> <id nullFlavor="NA" /> <code codeSystem="local" code="ALKP" displayName="ALKALINE PHOSPHATASE TOTAL" /> <statusCode code="completed " /> <effectiveTime value="356511463889" /> <value unit="IU/L " xsi:type="PQ" value="120" /> <interpretationCode codeSystem="local" code="*" /> <referenceRange> <observationRange> <text>45-117</text> </observationRange> </referenceRange> </observation> </component> <component> <observation moodCode="EVN" classCode="OBS"> <templateId root= "10.03.840.1.916763.10.22.4.2" /> <id nullFlavor="NA" /> < code codeSystem="local" code="BILC" displayName="BILI CONJUGATED" /> < statusCode code="completed" /> <effectiveTime value="137872617896" /> <value unit="mg/dL" xsi:type="PQ" value="< 0.1" /> < referenceRange> <observationRange> <text>0.0-0.3</text> </observationRange> </referenceRange> </observation > </component> </organizer> </entry> <entry> <organizer moodCode= "EVN" classCode="BATTERY"> <templateId root="10.03.840.1.986460.1022.4.1 " /> <id nullFlavor="NA" /> <code codeSystem="local" code="LIP" displayName="LIPASE" /> <statusCode code="completed" /> <component> <observation moodCode="EVN" classCode="OBS"> <templateId root= "10.03.840.1.145947.1022.4.2" /> <id nullFlavor="NA" /> < code codeSystem="local" code="LIP" displayName="LIPASE" /> <statusCode code="completed" /> <effectiveTime value="715575057197" /> < value unit="Units/L" xsi:type="PQ" value="78" /> <referenceRange> <observationRange> <text>73-393</text> </ observationRange> </referenceRange> </observation> </ component> </organizer> </entry> <entry> <organizer moodCode="EVN" classCode="BATTERY"> <templateId root="16.840.1.488566.10..22.4.1" /> <id nullFlavor="NA" /> <code codeSystem="local" code="GLUMON" displayName="GLUCOSE (POC)" /> <statusCode code="completed" /> < component> <observation moodCode="EVN" classCode="OBS"> < templateId root="16.840.1.323331.10..22.4.2" /> <id nullFlavor="NA " /> <code codeSystem="local" code="GLUMON" displayName="GLUCOSE (POC) " /> <statusCode code="completed" /> <effectiveTime value= "424210633241" /> <value unit="mg/dL" xsi:type="PQ" value="119" /> <interpretationCode codeSystem="local" code="*" /> < referenceRange> <observationRange> <text>70-99</text> </observationRange> </referenceRange> </observation> </component> </organizer> </entry> <entry> <organizer moodCode="EVN " classCode="BATTERY"> <templateId root="10.03.840.1.329848.10..22.4.1" / > <id nullFlavor="NA" /> <code codeSystem="local" code="HH" displayName="HGB HCT" /> <statusCode code="completed" /> <component > <observation moodCode="EVN" classCode="OBS"> <templateId root= "840.1.887968.10.20.22.4.2" /> <id nullFlavor="NA" /> < code codeSystem="local" code="MCV" displayName="MEAN CELL VOLUME" /> < statusCode code="completed" /> <effectiveTime value="" /> <value unit="fl" xsi:type="PQ" value="77.0" /> < interpretationCode codeSystem="local" code="*" /> <referenceRange> <observationRange> <text>80.0-100.0</text> </ observationRange> </referenceRange> </observation> </ component> <component> <observation moodCode="EVN" classCode="OBS"> <templateId root="840.1.909520.10.22.4.2" /> <id nullFlavor="NA" /> <code codeSystem="local" code="HGBT" displayName= "HEMOGLOBIN" /> <statusCode code="completed" /> < effectiveTime value="" /> <value unit="gm/dL" xsi:type="PQ " value="8.2" /> <interpretationCode codeSystem="local" code="*" /> <referenceRange> <observationRange> <text>12.0- 16.0</text> </observationRange> </referenceRange> </ observation> </component> <component> <observation moodCode= "EVN" classCode="OBS"> <templateId root="840.1.589326.10.2022.4.2 " /> <id nullFlavor="NA" /> <code codeSystem="local" code= "HCTT" displayName="HEMATOCRIT" /> <statusCode code="completed" /> <effectiveTime value="" /> <value unit="%" xsi: type="PQ" value="27.1" /> <interpretationCode codeSystem="local" code= "*" /> <referenceRange> <observationRange> < text>37.0-47.0</text> </observationRange> </referenceRange> </observation> </component> </organizer> </entry> <entry> < organizer moodCode="EVN" classCode="BATTERY"> <templateId root= "16.840.1.815690.10..22.4.1" /> <id nullFlavor="NA" /> <code codeSystem="local" code="PT" displayName="PROTHROMBIN TIME WITH INR" /> < statusCode code="completed" /> <component> <observation moodCode= "EVN" classCode="OBS"> <templateId root="16.840.1.010138.10..22.4.2 " /> <id nullFlavor="NA" /> <code codeSystem="local" code= "INRX" displayName="INTERNATIONAL NORMAL RATIO" /> <statusCode code= "completed" /> <effectiveTime value="041834569262" /> <value unit="" xsi:type="PQ" value="1.0" /> <referenceRange> < observationRange> <text>0.9-1.1</text> </ observationRange> </referenceRange> </observation> </ component> <component> <observation moodCode="EVN" classCode="OBS"> <templateId root="10.03.840.1.555176.10..22.4.2" /> <id nullFlavor="NA" /> <code codeSystem="local" code="PTPAT" displayName= "PROTHROMBIN TIME" /> <statusCode code="completed" /> < effectiveTime value="628582490112" /> <value unit="sec" xsi:type="PQ" value="11.3" /> <referenceRange> <observationRange> <text>9.3-12.2</text> </observationRange> </ referenceRange> </observation> </component> </organizer> </entry > <entry> <organizer moodCode="EVN" classCode="BATTERY"> <templateId root="16.840.1.816946.10..22.4.1" /> <id nullFlavor="NA" /> <code codeSystem="local" code="TROPI" displayName="TROPONIN I" /> <statusCode code="completed" /> <component> <observation moodCode="EVN" classCode="OBS"> <templateId root="10.03.840.1.860187.10..4.2" /> <id nullFlavor="NA" /> <code codeSystem="local" code="TROPI" displayName="TROPONIN I" /> <statusCode code="completed" /> < effectiveTime value="292703703731" /> <value unit="ng/mL" xsi:type="PQ " value="< 0.02" /> <referenceRange> <observationRange> <text>< 0.07</text> </observationRange> </ referenceRange> </observation> </component> </organizer> </entry > <entry> <organizer moodCode="EVN" classCode="BATTERY"> <templateId root="10.03.840.1.184883.10..22.4.1" /> <id nullFlavor="NA" /> <code codeSystem="local" code="TROPI" displayName="TROPONIN I" /> <statusCode code="completed" /> <component> <observation moodCode="EVN" classCode="OBS"> <templateId root="16.840.1.361471.10..22.4.2" /> <id nullFlavor="NA" /> <code codeSystem="local" code="TROPI" displayName="TROPONIN I" /> <statusCode code="completed" /> < effectiveTime value="165441010348" /> <value unit="ng/mL" xsi:type="PQ " value="< 0.02" /> <referenceRange> <observationRange> <text>< 0.07</text> </observationRange> </ referenceRange> </observation> </component> </organizer> </entry > <entry> <organizer moodCode="EVN" classCode="BATTERY"> <templateId root="216.840.1.222739.10..22.4.1" /> <id nullFlavor="NA" /> <code codeSystem="local" code="GLUMON" displayName="GLUCOSE (POC)" /> < statusCode code="completed" /> <component> <observation moodCode= "EVN" classCode="OBS"> <templateId root="216.840.1.002349.10..22.4.2 " /> <id nullFlavor="NA" /> <code codeSystem="local" code= "GLUMON" displayName="GLUCOSE (POC)" /> <statusCode code="completed" / > <effectiveTime value="872372757766" /> <value unit="mg/dL" xsi:type="PQ" value="108" /> <interpretationCode codeSystem="local" code="*" /> <referenceRange> <observationRange> <text>70-99</text> </observationRange> </referenceRange> </observation> </component> </organizer> </entry> <entry> < organizer moodCode="EVN" classCode="BATTERY"> <templateId root= "216.840.1.850163.10.20.22.4.1" /> <id nullFlavor="NA" /> <code codeSystem="local" code="RENAL" displayName="RENAL FUNCTION PANEL" /> < statusCode code="completed" /> <component> <observation moodCode= "EVN" classCode="OBS"> <templateId root="16.840.1.610542.10..4.2 " /> <id nullFlavor="NA" /> <code codeSystem="local" code="K" displayName="POTASSIUM" /> <statusCode code="completed" /> < effectiveTime value="437536162568" /> <value unit="mmol/L" xsi:type="PQ " value="4.0" /> <referenceRange> <observationRange> <text>3.5-5.3</text> </observationRange> </ referenceRange> </observation> </component> <component> <observation moodCode="EVN" classCode="OBS"> <templateId root= "10.03.840.1.825090.10.4.2" /> <id nullFlavor="NA" /> < code codeSystem="local" code="eGFR" displayName="EST GFR (MDRD)" /> < statusCode code="completed" /> <effectiveTime value="969954516834" /> <value unit="mL/min" xsi:type="PQ" value="> 60" /> < referenceRange> <observationRange> <text>> 59</text> </observationRange> </referenceRange> </observation > </component> <component> <observation moodCode="EVN" classCode="OBS"> <templateId root="10.03.840.1.581850.10..4.2" /> <id nullFlavor="NA" /> <code codeSystem="local" code="GAP" displayName="ANION GAP" /> <statusCode code="completed" /> < effectiveTime value="" /> <value unit="mmol/L" xsi:type="PQ " value="8" /> <referenceRange> <observationRange> <text>5-15</text> </observationRange> </referenceRange > </observation> </component> <component> <observation moodCode="EVN" classCode="OBS"> <templateId root= "216.840.1.478320.10..22.4.2" /> <id nullFlavor="NA" /> < code codeSystem="local" code="eCrCl" displayName="EST CrCl (CG)" /> < statusCode code="completed" /> <effectiveTime value="" /> <value unit="mL/min" xsi:type="PQ" value="> 60" /> < referenceRange> <observationRange> <text>> 59</text> </observationRange> </referenceRange> </observation > </component> <component> <observation moodCode="EVN" classCode="OBS"> <templateId root="216.840.1.330946.10...4.2" /> <id nullFlavor="NA" /> <code codeSystem="local" code="GLU" displayName="GLUCOSE" /> <statusCode code="completed" /> < effectiveTime value="" /> <value unit="mg/dL" xsi:type="PQ " value="102" /> <interpretationCode codeSystem="local" code="*" /> <referenceRange> <observationRange> <text>70-99</ text> </observationRange> </referenceRange> </ observation> </component> <component> <observation moodCode= "EVN" classCode="OBS"> <templateId root="216.840.1.736998.06.06.224.2 " /> <id nullFlavor="NA" /> <code codeSystem="local" code="CA " displayName="CALCIUM" /> <statusCode code="completed" /> < effectiveTime value="" /> <value unit="mg/dL" xsi:type="PQ " value="8.2" /> <interpretationCode codeSystem="local" code="*" /> <referenceRange> <observationRange> <text>8.5- 10.1</text> </observationRange> </referenceRange> </ observation> </component> <component> <observation moodCode= "EVN" classCode="OBS"> <templateId root="2.16.840.1.560653.06.06.224.2 " /> <id nullFlavor="NA" /> <code codeSystem="local" code="BUN " displayName="BLOOD UREA NITROGEN" /> <statusCode code="completed" /> <effectiveTime value="" /> <value unit="mg/dL" xsi:type="PQ" value="15" /> <referenceRange> < observationRange> <text>7-20</text> </observationRange> </referenceRange> </observation> </component> < component> <observation moodCode="EVN" classCode="OBS"> < templateId root="2.16.840.1.072948.06.06.22.4.2" /> <id nullFlavor="NA " /> <code codeSystem="local" code="CREAT" displayName="CREATININE" /> <statusCode code="completed" /> <effectiveTime value= "" /> <value unit="mg/dL" xsi:type="PQ" value="0.8" /> <referenceRange> <observationRange> <text>0.6-1.0< /text> </observationRange> </referenceRange> </ observation> </component> <component> <observation moodCode= "EVN" classCode="OBS"> <templateId root="216.840.1.996076.10..22.4.2 " /> <id nullFlavor="NA" /> <code codeSystem="local" code="NA " displayName="SODIUM" /> <statusCode code="completed" /> < effectiveTime value="" /> <value unit="mmol/L" xsi:type="PQ " value="141" /> <referenceRange> <observationRange> <text>135-148</text> </observationRange> </ referenceRange> </observation> </component> <component> <observation moodCode="EVN" classCode="OBS"> <templateId root= "216.840.1.035089.10...4.2" /> <id nullFlavor="NA" /> < code codeSystem="local" code="CL" displayName="CHLORIDE" /> < statusCode code="completed" /> <effectiveTime value="" /> <value unit="mmol/L" xsi:type="PQ" value="107" /> < referenceRange> <observationRange> <text>98-110</text> </observationRange> </referenceRange> </observation> </component> <component> <observation moodCode="EVN" classCode ="OBS"> <templateId root="16.840.1.378389.10.20.22.4.2" /> < id nullFlavor="NA" /> <code codeSystem="local" code="CO2" displayName= "CARBON DIOXIDE" /> <statusCode code="completed" /> < effectiveTime value="" /> <value unit="mmol/L" xsi:type="PQ " value="26" /> <referenceRange> <observationRange> <text>21-32</text> </observationRange> </ referenceRange> </observation> </component> <component> <observation moodCode="EVN" classCode="OBS"> <templateId root= "10.03.840.1.397336.10.20.22.4.2" /> <id nullFlavor="NA" /> < code codeSystem="local" code="ALB" displayName="ALBUMIN" /> < statusCode code="completed" /> <effectiveTime value="" /> <value unit="gm/dL" xsi:type="PQ" value="3.0" /> < interpretationCode codeSystem="local" code="*" /> <referenceRange> <observationRange> <text>3.4-5.0</text> </ observationRange> </referenceRange> </observation> </ component> <component> <observation moodCode="EVN" classCode="OBS"> <templateId root="10.03.840.1.680303.10..22.4.2" /> <id nullFlavor="NA" /> <code codeSystem="local" code="PHOS" displayName= "PHOSPHORUS" /> <statusCode code="completed" /> < effectiveTime value="128634336633" /> <value unit="mg/dL" xsi:type="PQ " value="3.1" /> <referenceRange> <observationRange> <text>2.5-4.9</text> </observationRange> </ referenceRange> </observation> </component> </organizer> </entry > <entry> <organizer moodCode="EVN" classCode="BATTERY"> <templateId root="10.03.840.1.875899.10.20.22.4.1" /> <id nullFlavor="NA" /> <code codeSystem="local" code="HDLPRO" displayName="LIPID PANEL" /> <statusCode code="completed" /> <component> <observation moodCode="EVN" classCode="OBS"> <templateId root="16.840.1.890960.1022.4.2" /> <id nullFlavor="NA" /> <code codeSystem="local" code="CHOL/HDL " displayName="CHOLESTEROL/HDL RATIO" /> <statusCode code="completed" / > <effectiveTime value="" /> <value unit="" xsi: type="PQ" value="3.7" /> <referenceRange> <observationRange > <text> < 5.0</text> </observationRange> </ referenceRange> </observation> </component> <component> <observation moodCode="EVN" classCode="OBS"> <templateId root= "10.03.840.1.154526.06.06.22.4.2" /> <id nullFlavor="NA" /> < code codeSystem="local" code="LDLX" displayName="LDL CHOLESTEROL" /> < statusCode code="completed" /> <effectiveTime value="" /> <value unit="mg/dL" xsi:type="PQ" value="93" /> < referenceRange> <observationRange> <text>< 100</text > </observationRange> </referenceRange> </observation > </component> <component> <observation moodCode="EVN" classCode="OBS"> <templateId root="10.03.840.1.928739.10.22.4.2" /> <id nullFlavor="NA" /> <code codeSystem="local" code="VLDL" displayName="VLDL CHOLESTEROL" /> <statusCode code="completed" /> <effectiveTime value="634235349279" /> <value unit="mg/dL" xsi: type="PQ" value="27" /> <referenceRange> <observationRange> <text>< 30</text> </observationRange> </ referenceRange> </observation> </component> <component> <observation moodCode="EVN" classCode="OBS"> <templateId root= "216.840.1.419428.10.20.22.4.2" /> <id nullFlavor="NA" /> < code codeSystem="local" code="TRIG" displayName="TRIGLYCERIDES" /> < statusCode code="completed" /> <effectiveTime value="209743108834" /> <value unit="mg/dL" xsi:type="PQ" value="135" /> < referenceRange> <observationRange> <text>< 150</text > </observationRange> </referenceRange> </observation > </component> <component> <observation moodCode="EVN" classCode="OBS"> <templateId root="10.03.840.1.092188.10.22.4.2" /> <id nullFlavor="NA" /> <code codeSystem="local" code="CHOL" displayName="CHOLESTEROL" /> <statusCode code="completed" /> < effectiveTime value="891973577042" /> <value unit="mg/dL" xsi:type="PQ " value="164" /> <referenceRange> <observationRange> <text>< 200</text> </observationRange> </ referenceRange> </observation> </component> <component> <observation moodCode="EVN" classCode="OBS"> <templateId root= "10.03.840.1.686774.10.2022.4.2" /> <id nullFlavor="NA" /> < code codeSystem="local" code="HDL" displayName="HDL CHOLESTEROL" /> < statusCode code="completed" /> <effectiveTime value="177199788776" /> <value unit="mg/dL" xsi:type="PQ" value="44" /> < referenceRange> <observationRange> <text>> 39</text> </observationRange> </referenceRange> </observation > </component> </organizer> </entry> <entry> <organizer moodCode= "EVN" classCode="BATTERY"> <templateId root="10.03.840.1.817194.10..22.4.1 " /> <id nullFlavor="NA" /> <code codeSystem="local" code="MAG" displayName="MAGNESIUM" /> <statusCode code="completed" /> <component > <observation moodCode="EVN" classCode="OBS"> <templateId root= "10.03.840.1.506993.10..22.4.2" /> <id nullFlavor="NA" /> < code codeSystem="local" code="MAG" displayName="MAGNESIUM" /> < statusCode code="completed" /> <effectiveTime value="120022876356" /> <value unit="mg/dL" xsi:type="PQ" value="2.4" /> < referenceRange> <observationRange> <text>1.8-2.4</text> </observationRange> </referenceRange> </observation > </component> </organizer> </entry> <entry> <organizer moodCode= "EVN" classCode="BATTERY"> <templateId root="10.03.840.1.010502.10.20.22.4.1 " /> <id nullFlavor="NA" /> <code codeSystem="local" code="TROPI" displayName="TROPONIN I" /> <statusCode code="completed" /> <component > <observation moodCode="EVN" classCode="OBS"> <templateId root= "10.03.830.1.787164.10...4.2" /> <id nullFlavor="NA" /> < code codeSystem="local" code="TROPI" displayName="TROPONIN I" /> < statusCode code="completed" /> <effectiveTime value="197770388778" /> <value unit="ng/mL" xsi:type="PQ" value="< 0.02" /> < referenceRange> <observationRange> <text>< 0.07</text > </observationRange> </referenceRange> </observation > </component> </organizer> </entry> <entry> <organizer moodCode= "EVN" classCode="BATTERY"> <templateId root="10.03.840.1.542226.10..4.1 " /> <id nullFlavor="NA" /> <code codeSystem="local" code="CBCD" displayName="CBC W/DIFF" /> <statusCode code="completed" /> <component > <observation moodCode="EVN" classCode="OBS"> <templateId root= "10.03.840.1.771032...4.2" /> <id nullFlavor="NA" /> < code codeSystem="local" code="BA#" displayName="BASOPHIL #" /> < statusCode code="completed" /> <effectiveTime value="776424381818" /> <value unit="k/cumm" xsi:type="PQ" value="0.1" /> < referenceRange> <observationRange> <text>0.0-0.2</text> </observationRange> </referenceRange> </observation > </component> <component> <observation moodCode="EVN" classCode="OBS"> <templateId root="16.840.1.312430.06.06.22.4.2" /> <id nullFlavor="NA" /> <code codeSystem="local" code="BA% " displayName="BASOPHIL %" /> <statusCode code="completed" /> <effectiveTime value="570011296880" /> <value unit="%" xsi: type="PQ" value="1" /> <referenceRange> <observationRange> <text>0-1</text> </observationRange> </ referenceRange> </observation> </component> <component> <observation moodCode="EVN" classCode="OBS"> <templateId root= "2.16.840.1.629557...4.2" /> <id nullFlavor="NA" /> < code codeSystem="local" code="EO#" displayName="EOSINOPHIL #" /> < statusCode code="completed" /> <effectiveTime value="502769875892" /> <value unit="k/cumm" xsi:type="PQ" value="0.2" /> < referenceRange> <observationRange> <text>0.1-0.5</text> </observationRange> </referenceRange> </observation > </component> <component> <observation moodCode="EVN" classCode="OBS"> <templateId root="2.16.840.1.544701...4.2" /> <id nullFlavor="NA" /> <code codeSystem="local" code="EO% " displayName="EOSINOPHIL %" /> <statusCode code="completed" /> <effectiveTime value="[id number]" /> <value unit="%" xsi: type="PQ" value="2" /> <referenceRange> <observationRange> <text>2-4</text> </observationRange> </ referenceRange> </observation> </component> <component> <observation moodCode="EVN" classCode="OBS"> <templateId root= "16.840.1.165154.10.22.4.2" /> <id nullFlavor="NA" /> < code codeSystem="local" code="GR#" displayName="GRANULOCYTE #" /> < statusCode code="completed" /> <effectiveTime value="" /> <value unit="k/cumm" xsi:type="PQ" value="4.8" /> < referenceRange> <observationRange> <text>2.0-9.0</text> </observationRange> </referenceRange> </observation > </component> <component> <observation moodCode="EVN" classCode="OBS"> <templateId root="10.03.840.1.165856.10.4.2" /> <id nullFlavor="NA" /> <code codeSystem="local" code="GR% " displayName="GRANULOCYTE %" /> <statusCode code="completed" /> <effectiveTime value="" /> <value unit="%" xsi: type="PQ" value="64" /> <referenceRange> <observationRange> <text>50-75</text> </observationRange> </ referenceRange> </observation> </component> <component> <observation moodCode="EVN" classCode="OBS"> <templateId root= "10.03.840.1.219948.10.20.22.4.2" /> <id nullFlavor="NA" /> < code codeSystem="local" code="LY#" displayName="LYMPHOCYTE #" /> < statusCode code="completed" /> <effectiveTime value="[id number]" /> <value unit="k/cumm" xsi:type="PQ" value="1.5" /> < referenceRange> <observationRange> <text>1.0-4.0</text> </observationRange> </referenceRange> </observation > </component> <component> <observation moodCode="EVN" classCode="OBS"> <templateId root="216.840.1.687469.10.20.22.4.2" /> <id nullFlavor="NA" /> <code codeSystem="local" code="LY% " displayName="LYMPHOCYTE %" /> <statusCode code="completed" /> <effectiveTime value="022110128929" /> <value unit="%" xsi: type="PQ" value="21" /> <referenceRange> <observationRange> <text>20-30</text> </observationRange> </ referenceRange> </observation> </component> <component> <observation moodCode="EVN" classCode="OBS"> <templateId root= "10.03.840.1.003550.10..4.2" /> <id nullFlavor="NA" /> < code codeSystem="local" code="MCH" displayName="MEAN CELL HGB" /> < statusCode code="completed" /> <effectiveTime value="478054890804" /> <value unit="pg" xsi:type="PQ" value="23.3" /> < interpretationCode codeSystem="local" code="*" /> <referenceRange> <observationRange> <text>27.0-33.0</text> </ observationRange> </referenceRange> </observation> </ component> <component> <observation moodCode="EVN" classCode="OBS"> <templateId root="10.03.840.1.068620.10.20.22.4.2" /> <id nullFlavor="NA" /> <code codeSystem="local" code="MCHC" displayName= "MEAN CELL HGB CONCENTRATION" /> <statusCode code="completed" /> <effectiveTime value="" /> <value unit="g/dL" xsi:type= "PQ" value="29.9" /> <interpretationCode codeSystem="local" code="*" / > <referenceRange> <observationRange> <text> 32.0-37.0</text> </observationRange> </referenceRange> </observation> </component> <component> <observation moodCode="EVN" classCode="OBS"> <templateId root= "2.16.840.1.570386.10..22.4.2" /> <id nullFlavor="NA" /> < code codeSystem="local" code="MCV" displayName="MEAN CELL VOLUME" /> < statusCode code="completed" /> <effectiveTime value="" /> <value unit="fl" xsi:type="PQ" value="77.8" /> < interpretationCode codeSystem="local" code="*" /> <referenceRange> <observationRange> <text>80.0-100.0</text> </ observationRange> </referenceRange> </observation> </ component> <component> <observation moodCode="EVN" classCode="OBS"> <templateId root="16.840.1.639799.10.20.22.4.2" /> <id nullFlavor="NA" /> <code codeSystem="local" code="MO#" displayName= "MONOCYTE #" /> <statusCode code="completed" /> < effectiveTime value="" /> <value unit="k/cumm" xsi:type="PQ " value="0.9" /> <referenceRange> <observationRange> <text>0.1-1.0</text> </observationRange> </ referenceRange> </observation> </component> <component> <observation moodCode="EVN" classCode="OBS"> <templateId root= "16.840.1.030534.10..4.2" /> <id nullFlavor="NA" /> < code codeSystem="local" code="MO%" displayName="MONOCYTE %" /> <statusCode code="completed" /> <effectiveTime value="239456327861" /> <value unit="%" xsi:type="PQ" value="12" /> < interpretationCode codeSystem="local" code="*" /> <referenceRange> <observationRange> <text>4-6</text> </ observationRange> </referenceRange> </observation> </ component> <component> <observation moodCode="EVN" classCode="OBS"> <templateId root="10.03.840.1.257613.06.06.22.4.2" /> <id nullFlavor="NA" /> <code codeSystem="local" code="RBC" displayName=" RED BLOOD CELL" /> <statusCode code="completed" /> < effectiveTime value="610116877972" /> <value unit="m/cumm" xsi:type="PQ " value="3.61" /> <interpretationCode codeSystem="local" code="*" /> <referenceRange> <observationRange> <text>4.00- 6.00</text> </observationRange> </referenceRange> </ observation> </component> <component> <observation moodCode= "EVN" classCode="OBS"> <templateId root="10.03.840.1.679877.22.4.2 " /> <id nullFlavor="NA" /> <code codeSystem="local" code="RDW " displayName="RED CELL DISTRIBUTION WIDTH" /> <statusCode code= "completed" /> <effectiveTime value="779480283427" /> <value unit="%" xsi:type="PQ" value="15.2" /> <referenceRange> <observationRange> <text>11.0-15.6</text> </ observationRange> </referenceRange> </observation> </ component> <component> <observation moodCode="EVN" classCode="OBS"> <templateId root="10.03.840.1.189721.10..22.4.2" /> <id nullFlavor="NA" /> <code codeSystem="local" code="WBC" displayName= "WHITE BLOOD CELL" /> <statusCode code="completed" /> < effectiveTime value="224977129375" /> <value unit="k/cumm" xsi:type="PQ " value="7.4" /> <referenceRange> <observationRange> <text>5.0-10.0</text> </observationRange> </ referenceRange> </observation> </component> <component> <observation moodCode="EVN" classCode="OBS"> <templateId root= "10.03.840.1.776610.10..22.4.2" /> <id nullFlavor="NA" /> < code codeSystem="local" code="HGBT" displayName="HEMOGLOBIN" /> < statusCode code="completed" /> <effectiveTime value="800673992222" /> <value unit="gm/dL" xsi:type="PQ" value="8.4" /> < interpretationCode codeSystem="local" code="*" /> <referenceRange> <observationRange> <text>12.0-16.0</text> </ observationRange> </referenceRange> </observation> </ component> <component> <observation moodCode="EVN" classCode="OBS"> <templateId root="10.03.840.1.894285.10..22.4.2" /> <id nullFlavor="NA" /> <code codeSystem="local" code="HCTT" displayName= "HEMATOCRIT" /> <statusCode code="completed" /> < effectiveTime value="860039906947" /> <value unit="%" xsi:type="PQ " value="28.1" /> <interpretationCode codeSystem="local" code="*" /> <referenceRange> <observationRange> <text>37.0- 47.0</text> </observationRange> </referenceRange> </ observation> </component> <component> <observation moodCode= "EVN" classCode="OBS"> <templateId root="10.03.840.1.342350.10..4.2 " /> <id nullFlavor="NA" /> <code codeSystem="local" code="PLT " displayName="PLATELET COUNT" /> <statusCode code="completed" /> <effectiveTime value="336144974097" /> <value unit="k/cumm" xsi: type="PQ" value="437" /> <interpretationCode codeSystem="local" code="* " /> <referenceRange> <observationRange> <text> 150-400</text> </observationRange> </referenceRange> </observation> </component> </organizer> </entry> <entry> < organizer moodCode="EVN" classCode="BATTERY"> <templateId root= "10.03.840.1.696142.10.22.4.1" /> <id nullFlavor="NA" /> <code codeSystem="local" code="HBA1C" displayName="HEMOGLOBIN A1C" /> < statusCode code="completed" /> <component> <observation moodCode= "EVN" classCode="OBS"> <templateId root="10.03.840.1.849658.10.20.22.4.2 " /> <id nullFlavor="NA" /> <code codeSystem="local" code= "HBA1C" displayName="HEMOGLOBIN A1C" /> <statusCode code="completed" / > <effectiveTime value="746078825547" /> <value unit="%" xsi:type="PQ" value="6.7" /> <interpretationCode codeSystem="local" code="*" /> <referenceRange> <observationRange> <text>< 5.7</text> </observationRange> </referenceRange > </observation> </component> </organizer> </entry> <entry> <organizer moodCode="EVN" classCode="BATTERY"> <templateId root= "2.16.840.1.071791.10.20.22.4.1" /> <id nullFlavor="NA" /> <code codeSystem="local" code="GLUMON" displayName="GLUCOSE (POC)" /> < statusCode code="completed" /> <component> <observation moodCode= "EVN" classCode="OBS"> <templateId root="2.16.840.1.986905.10.20.22.4.2 " /> <id nullFlavor="NA" /> <code codeSystem="local" code= "GLUMON" displayName="GLUCOSE (POC)" /> <statusCode code="completed" / > <effectiveTime value="590934544732" /> <value unit="mg/dL" xsi:type="PQ" value="103" /> <interpretationCode codeSystem="local" code="*" /> <referenceRange> <observationRange> <text>70-99</text> </observationRange> </referenceRange> </observation> </component> </organizer> </entry> <entry> < organizer moodCode="EVN" classCode="BATTERY"> <templateId root= "840.1.509772.10.4.1" /> <id nullFlavor="NA" /> <code codeSystem="local" code="GLUMON" displayName="GLUCOSE (POC)" /> < statusCode code="completed" /> <component> <observation moodCode= "EVN" classCode="OBS"> <templateId root="840.1.258948.06.06.22.4.2 " /> <id nullFlavor="NA" /> <code codeSystem="local" code= "GLUMON" displayName="GLUCOSE (POC)" /> <statusCode code="completed" / > <effectiveTime value="982209199646" /> <value unit="mg/dL" xsi:type="PQ" value="92" /> <referenceRange> < observationRange> <text>70-99</text> </observationRange > </referenceRange> </observation> </component> </ organizer> </entry> <entry> <organizer moodCode="EVN" classCode="BATTERY"> <templateId root="840.1.587940.06.06.22.4.1" /> <id nullFlavor= "NA" /> <code codeSystem="local" code="GLUMON" displayName="GLUCOSE (POC)" /> <statusCode code="completed" /> <component> <observation moodCode="EVN" classCode="OBS"> <templateId root= "840.1.181262.06.06.22.4.2" /> <id nullFlavor="NA" /> < code codeSystem="local" code="GLUMON" displayName="GLUCOSE (POC)" /> < statusCode code="completed" /> <effectiveTime value="001566618932" /> <value unit="mg/dL" xsi:type="PQ" value="110" /> < interpretationCode codeSystem="local" code="*" /> <referenceRange> <observationRange> <text>70-99</text> </ observationRange> </referenceRange> </observation> </ component> </organizer> </entry> <entry> <organizer moodCode="EVN" classCode="BATTERY"> <templateId root="216.840.1.112840.10..22.4.1" /> <id nullFlavor="NA" /> <code codeSystem="local" code="GLUMON" displayName="GLUCOSE (POC)" /> <statusCode code="completed" /> < component> <observation moodCode="EVN" classCode="OBS"> < templateId root="216.840.1.993826.10..22.4.2" /> <id nullFlavor="NA " /> <code codeSystem="local" code="GLUMON" displayName="GLUCOSE (POC) " /> <statusCode code="completed" /> <effectiveTime value= "526932963028" /> <value unit="mg/dL" xsi:type="PQ" value="193" /> <interpretationCode codeSystem="local" code="*" /> < referenceRange> <observationRange> <text>70-99</text> </observationRange> </referenceRange> </observation> </component> </organizer> </entry> <entry> <organizer moodCode="EVN " classCode="BATTERY"> <templateId root="216.840.1.893166.10..22.4.1" / > <id nullFlavor="NA" /> <code codeSystem="local" code="GLUMON" displayName="GLUCOSE (POC)" /> <statusCode code="completed" /> < component> <observation moodCode="EVN" classCode="OBS"> < templateId root="840.1.049776.10..22.4.2" /> <id nullFlavor="NA " /> <code codeSystem="local" code="GLUMON" displayName="GLUCOSE (POC) " /> <statusCode code="completed" /> <effectiveTime value= "986057654236" /> <value unit="mg/dL" xsi:type="PQ" value="125" /> <interpretationCode codeSystem="local" code="*" /> < referenceRange> <observationRange> <text>70-99</text> </observationRange> </referenceRange> </observation> </component> </organizer> </entry> <entry> <organizer moodCode="EVN " classCode="BATTERY"> <templateId root="840.1.982680.10..22.4.1" / > <id nullFlavor="NA" /> <code codeSystem="local" code="CBCD" displayName="CBC W/DIFF" /> <statusCode code="completed" /> <component > <observation moodCode="EVN" classCode="OBS"> <templateId root= "840.1.702309.10..22.4.2" /> <id nullFlavor="NA" /> < code codeSystem="local" code="BA#" displayName="BASOPHIL #" /> < statusCode code="completed" /> <effectiveTime value="014778947892" /> <value unit="k/cumm" xsi:type="PQ" value="0.1" /> < referenceRange> <observationRange> <text>0.0-0.2</text> </observationRange> </referenceRange> </observation > </component> <component> <observation moodCode="EVN" classCode="OBS"> <templateId root="10.03.830.1.040505.10..4.2" /> <id nullFlavor="NA" /> <code codeSystem="local" code="BA% " displayName="BASOPHIL %" /> <statusCode code="completed" /> <effectiveTime value="" /> <value unit="%" xsi: type="PQ" value="1" /> <referenceRange> <observationRange> <text>0-1</text> </observationRange> </ referenceRange> </observation> </component> <component> <observation moodCode="EVN" classCode="OBS"> <templateId root= "216.840.1.470795.10..4.2" /> <id nullFlavor="NA" /> < code codeSystem="local" code="EO#" displayName="EOSINOPHIL #" /> < statusCode code="completed" /> <effectiveTime value="" /> <value unit="k/cumm" xsi:type="PQ" value="0.2" /> < referenceRange> <observationRange> <text>0.1-0.5</text> </observationRange> </referenceRange> </observation > </component> <component> <observation moodCode="EVN" classCode="OBS"> <templateId root="16.840.1.920698.06.06.22.4.2" /> <id nullFlavor="NA" /> <code codeSystem="local" code="EO% " displayName="EOSINOPHIL %" /> <statusCode code="completed" /> <effectiveTime value="" /> <value unit="%" xsi: type="PQ" value="3" /> <referenceRange> <observationRange> <text>2-4</text> </observationRange> </ referenceRange> </observation> </component> <component> <observation moodCode="EVN" classCode="OBS"> <templateId root= "216.840.1.406740.104.2" /> <id nullFlavor="NA" /> < code codeSystem="local" code="GR#" displayName="GRANULOCYTE #" /> < statusCode code="completed" /> <effectiveTime value="" /> <value unit="k/cumm" xsi:type="PQ" value="3.2" /> < referenceRange> <observationRange> <text>2.0-9.0</text> </observationRange> </referenceRange> </observation > </component> <component> <observation moodCode="EVN" classCode="OBS"> <templateId root="10.03.840.1.334500.06.06.224.2" /> <id nullFlavor="NA" /> <code codeSystem="local" code="GR% " displayName="GRANULOCYTE %" /> <statusCode code="completed" /> <effectiveTime value="" /> <value unit="%" xsi: type="PQ" value="61" /> <referenceRange> <observationRange> <text>50-75</text> </observationRange> </ referenceRange> </observation> </component> <component> <observation moodCode="EVN" classCode="OBS"> <templateId root= "216.840.1.405293.104.2" /> <id nullFlavor="NA" /> < code codeSystem="local" code="LY#" displayName="LYMPHOCYTE #" /> < statusCode code="completed" /> <effectiveTime value="" /> <value unit="k/cumm" xsi:type="PQ" value="1.3" /> < referenceRange> <observationRange> <text>1.0-4.0</text> </observationRange> </referenceRange> </observation > </component> <component> <observation moodCode="EVN" classCode="OBS"> <templateId root="216.840.1.807606.10..4.2" /> <id nullFlavor="NA" /> <code codeSystem="local" code="LY% " displayName="LYMPHOCYTE %" /> <statusCode code="completed" /> <effectiveTime value="" /> <value unit="%" xsi: type="PQ" value="25" /> <referenceRange> <observationRange> <text>20-30</text> </observationRange> </ referenceRange> </observation> </component> <component> <observation moodCode="EVN" classCode="OBS"> <templateId root= "10.03.840.1.497289.10.4.2" /> <id nullFlavor="NA" /> < code codeSystem="local" code="MCH" displayName="MEAN CELL HGB" /> < statusCode code="completed" /> <effectiveTime value="" /> <value unit="pg" xsi:type="PQ" value="22.9" /> < interpretationCode codeSystem="local" code="*" /> <referenceRange> <observationRange> <text>27.0-33.0</text> </ observationRange> </referenceRange> </observation> </ component> <component> <observation moodCode="EVN" classCode="OBS"> <templateId root="16.840.1.171670.10.22.4.2" /> <id nullFlavor="NA" /> <code codeSystem="local" code="MCHC" displayName= "MEAN CELL HGB CONCENTRATION" /> <statusCode code="completed" /> <effectiveTime value="" /> <value unit="g/dL" xsi:type= "PQ" value="29.6" /> <interpretationCode codeSystem="local" code="*" / > <referenceRange> <observationRange> <text> 32.0-37.0</text> </observationRange> </referenceRange> </observation> </component> <component> <observation moodCode="EVN" classCode="OBS"> <templateId root= "216.840.1.403764.10..4.2" /> <id nullFlavor="NA" /> < code codeSystem="local" code="MCV" displayName="MEAN CELL VOLUME" /> < statusCode code="completed" /> <effectiveTime value="" /> <value unit="fl" xsi:type="PQ" value="77.4" /> < interpretationCode codeSystem="local" code="*" /> <referenceRange> <observationRange> <text>80.0-100.0</text> </ observationRange> </referenceRange> </observation> </ component> <component> <observation moodCode="EVN" classCode="OBS"> <templateId root="216.840.1.921807.10.22.4.2" /> <id nullFlavor="NA" /> <code codeSystem="local" code="MO#" displayName= "MONOCYTE #" /> <statusCode code="completed" /> < effectiveTime value="" /> <value unit="k/cumm" xsi:type="PQ " value="0.5" /> <referenceRange> <observationRange> <text>0.1-1.0</text> </observationRange> </ referenceRange> </observation> </component> <component> <observation moodCode="EVN" classCode="OBS"> <templateId root= "216.840.1.157334.10.2022.4.2" /> <id nullFlavor="NA" /> < code codeSystem="local" code="MO%" displayName="MONOCYTE %" /> <statusCode code="completed" /> <effectiveTime value="" /> <value unit="%" xsi:type="PQ" value="10" /> < interpretationCode codeSystem="local" code="*" /> <referenceRange> <observationRange> <text>4-6</text> </ observationRange> </referenceRange> </observation> </ component> <component> <observation moodCode="EVN" classCode="OBS"> <templateId root="10.03.840.1.950670.1022.4.2" /> <id nullFlavor="NA" /> <code codeSystem="local" code="RBC" displayName=" RED BLOOD CELL" /> <statusCode code="completed" /> < effectiveTime value="" /> <value unit="m/cumm" xsi:type="PQ " value="3.54" /> <interpretationCode codeSystem="local" code="*" /> <referenceRange> <observationRange> <text>4.00- 6.00</text> </observationRange> </referenceRange> </ observation> </component> <component> <observation moodCode= "EVN" classCode="OBS"> <templateId root="16.840.1.740325.10.2022.4.2 " /> <id nullFlavor="NA" /> <code codeSystem="local" code="RDW " displayName="RED CELL DISTRIBUTION WIDTH" /> <statusCode code= "completed" /> <effectiveTime value="" /> <value unit="%" xsi:type="PQ" value="14.7" /> <referenceRange> <observationRange> <text>11.0-15.6</text> </ observationRange> </referenceRange> </observation> </ component> <component> <observation moodCode="EVN" classCode="OBS"> <templateId root="216.840.1.895158.10.20.22.4.2" /> <id nullFlavor="NA" /> <code codeSystem="local" code="WBC" displayName= "WHITE BLOOD CELL" /> <statusCode code="completed" /> < effectiveTime value="" /> <value unit="k/cumm" xsi:type="PQ " value="5.3" /> <referenceRange> <observationRange> <text>5.0-10.0</text> </observationRange> </ referenceRange> </observation> </component> <component> <observation moodCode="EVN" classCode="OBS"> <templateId root= "216.840.1.733135.10.20.22.4.2" /> <id nullFlavor="NA" /> < code codeSystem="local" code="HGBT" displayName="HEMOGLOBIN" /> < statusCode code="completed" /> <effectiveTime value="" /> <value unit="gm/dL" xsi:type="PQ" value="8.1" /> < interpretationCode codeSystem="local" code="*" /> <referenceRange> <observationRange> <text>12.0-16.0</text> </ observationRange> </referenceRange> </observation> </ component> <component> <observation moodCode="EVN" classCode="OBS"> <templateId root="10.03.840.1.517146.10..22.4.2" /> <id nullFlavor="NA" /> <code codeSystem="local" code="HCTT" displayName= "HEMATOCRIT" /> <statusCode code="completed" /> < effectiveTime value="" /> <value unit="%" xsi:type="PQ " value="27.4" /> <interpretationCode codeSystem="local" code="*" /> <referenceRange> <observationRange> <text>37.0- 47.0</text> </observationRange> </referenceRange> </ observation> </component> <component> <observation moodCode= "EVN" classCode="OBS"> <templateId root="840.1.461475.104.2 " /> <id nullFlavor="NA" /> <code codeSystem="local" code="PLT " displayName="PLATELET COUNT" /> <statusCode code="completed" /> <effectiveTime value="" /> <value unit="k/cumm" xsi: type="PQ" value="389" /> <referenceRange> <observationRange > <text>150-400</text> </observationRange> </ referenceRange> </observation> </component> </organizer> </entry > <entry> <organizer moodCode="EVN" classCode="BATTERY"> <templateId root="10.03.840.1.709793.10.2022.4.1" /> <id nullFlavor="NA" /> <code codeSystem="local" code="VITB12" displayName="VITAMIN B12" /> <statusCode code="completed" /> <component> <observation moodCode="EVN" classCode="OBS"> <templateId root="10.03.840.1.827900...22.4.2" /> <id nullFlavor="NA" /> <code codeSystem="local" code="VITB12" displayName="VITAMIN B12" /> <statusCode code="completed" /> < effectiveTime value="534608847544" /> <value unit="pg/mL" xsi:type="PQ " value="593" /> <referenceRange> <observationRange> <text>211-911</text> </observationRange> </ referenceRange> </observation> </component> </organizer> </entry > <entry> <organizer moodCode="EVN" classCode="BATTERY"> <templateId root="16.840.1.955841.10...4.1" /> <id nullFlavor="NA" /> <code codeSystem="local" code="RENAL" displayName="RENAL FUNCTION PANEL" /> < statusCode code="completed" /> <component> <observation moodCode= "EVN" classCode="OBS"> <templateId root="10.03.840.1.683082....4.2 " /> <id nullFlavor="NA" /> <code codeSystem="local" code="K" displayName="POTASSIUM" /> <statusCode code="completed" /> < effectiveTime value="573649572286" /> <value unit="mmol/L" xsi:type="PQ " value="4.2" /> <referenceRange> <observationRange> <text>3.5-5.3</text> </observationRange> </ referenceRange> </observation> </component> <component> <observation moodCode="EVN" classCode="OBS"> <templateId root= "10.03.840.1.408168.10..22.4.2" /> <id nullFlavor="NA" /> < code codeSystem="local" code="eGFR" displayName="EST GFR (MDRD)" /> < statusCode code="completed" /> <effectiveTime value="" /> <value unit="mL/min" xsi:type="PQ" value="> 60" /> < referenceRange> <observationRange> <text>> 59</text> </observationRange> </referenceRange> </observation > </component> <component> <observation moodCode="EVN" classCode="OBS"> <templateId root="216.840.1.244831.10.20.22.4.2" /> <id nullFlavor="NA" /> <code codeSystem="local" code="GAP" displayName="ANION GAP" /> <statusCode code="completed" /> < effectiveTime value="" /> <value unit="mmol/L" xsi:type="PQ " value="7" /> <referenceRange> <observationRange> <text>5-15</text> </observationRange> </referenceRange > </observation> </component> <component> <observation moodCode="EVN" classCode="OBS"> <templateId root= "16.840.1.512231.10.20.22.4.2" /> <id nullFlavor="NA" /> < code codeSystem="local" code="eCrCl" displayName="EST CrCl (CG)" /> < statusCode code="completed" /> <effectiveTime value="" /> <value unit="mL/min" xsi:type="PQ" value="> 60" /> < referenceRange> <observationRange> <text>> 59</text> </observationRange> </referenceRange> </observation > </component> <component> <observation moodCode="EVN" classCode="OBS"> <templateId root="10.03.840.1.940379..20.22.4.2" /> <id nullFlavor="NA" /> <code codeSystem="local" code="GLU" displayName="GLUCOSE" /> <statusCode code="completed" /> < effectiveTime value="573368997055" /> <value unit="mg/dL" xsi:type="PQ " value="110" /> <interpretationCode codeSystem="local" code="*" /> <referenceRange> <observationRange> <text>70-99</ text> </observationRange> </referenceRange> </ observation> </component> <component> <observation moodCode= "EVN" classCode="OBS"> <templateId root="10.03.840.1.187910.22.4.2 " /> <id nullFlavor="NA" /> <code codeSystem="local" code="CA " displayName="CALCIUM" /> <statusCode code="completed" /> < effectiveTime value="623102206103" /> <value unit="mg/dL" xsi:type="PQ " value="8.6" /> <referenceRange> <observationRange> <text>8.5-10.1</text> </observationRange> </ referenceRange> </observation> </component> <component> <observation moodCode="EVN" classCode="OBS"> <templateId root= "10.03.840.1.332382.10.2022.4.2" /> <id nullFlavor="NA" /> < code codeSystem="local" code="BUN" displayName="BLOOD UREA NITROGEN" /> <statusCode code="completed" /> <effectiveTime value="379484580971" / > <value unit="mg/dL" xsi:type="PQ" value="12" /> < referenceRange> <observationRange> <text>7-20</text> </observationRange> </referenceRange> </observation> </component> <component> <observation moodCode="EVN" classCode= "OBS"> <templateId root="216.840.1.617939.1022.4.2" /> < id nullFlavor="NA" /> <code codeSystem="local" code="CREAT" displayName ="CREATININE" /> <statusCode code="completed" /> < effectiveTime value="071569509447" /> <value unit="mg/dL" xsi:type="PQ " value="0.9" /> <referenceRange> <observationRange> <text>0.6-1.0</text> </observationRange> </ referenceRange> </observation> </component> <component> <observation moodCode="EVN" classCode="OBS"> <templateId root= "10.03.840.1.623359.22.4.2" /> <id nullFlavor="NA" /> < code codeSystem="local" code="NA" displayName="SODIUM" /> <statusCode code="completed" /> <effectiveTime value="585265242514" /> < value unit="mmol/L" xsi:type="PQ" value="139" /> <referenceRange> <observationRange> <text>135-148</text> </ observationRange> </referenceRange> </observation> </ component> <component> <observation moodCode="EVN" classCode="OBS"> <templateId root="10.03.840.1.292692.10.22.4.2" /> <id nullFlavor="NA" /> <code codeSystem="local" code="CL" displayName= "CHLORIDE" /> <statusCode code="completed" /> <effectiveTime value="411714888716" /> <value unit="mmol/L" xsi:type="PQ" value="104" /> <referenceRange> <observationRange> <text>98 -110</text> </observationRange> </referenceRange> </ observation> </component> <component> <observation moodCode= "EVN" classCode="OBS"> <templateId root="10.03.840.1.634589.10.20.22.4.2 " /> <id nullFlavor="NA" /> <code codeSystem="local" code="CO2 " displayName="CARBON DIOXIDE" /> <statusCode code="completed" /> <effectiveTime value="" /> <value unit="mmol/L" xsi: type="PQ" value="28" /> <referenceRange> <observationRange> <text>21-32</text> </observationRange> </ referenceRange> </observation> </component> <component> <observation moodCode="EVN" classCode="OBS"> <templateId root= "10.03.840.1.728053.10..4.2" /> <id nullFlavor="NA" /> < code codeSystem="local" code="ALB" displayName="ALBUMIN" /> < statusCode code="completed" /> <effectiveTime value="621233352384" /> <value unit="gm/dL" xsi:type="PQ" value="3.1" /> < interpretationCode codeSystem="local" code="*" /> <referenceRange> <observationRange> <text>3.4-5.0</text> </ observationRange> </referenceRange> </observation> </ component> <component> <observation moodCode="EVN" classCode="OBS"> <templateId root="10.03.840.1.421754.10..22.4.2" /> <id nullFlavor="NA" /> <code codeSystem="local" code="PHOS" displayName= "PHOSPHORUS" /> <statusCode code="completed" /> < effectiveTime value="811654622609" /> <value unit="mg/dL" xsi:type="PQ " value="2.9" /> <referenceRange> <observationRange> <text>2.5-4.9</text> </observationRange> </ referenceRange> </observation> </component> </organizer> </entry > <entry> <organizer moodCode="EVN" classCode="BATTERY"> <templateId root="16.840.1.348393.10..22.4.1" /> <id nullFlavor="NA" /> <code codeSystem="local" code="MAG" displayName="MAGNESIUM" /> <statusCode code= "completed" /> <component> <observation moodCode="EVN" classCode= "OBS"> <templateId root="10.03.840.1.643854.10...4.2" /> < id nullFlavor="NA" /> <code codeSystem="local" code="MAG" displayName= "MAGNESIUM" /> <statusCode code="completed" /> <effectiveTime value="079260781115" /> <value unit="mg/dL" xsi:type="PQ" value="2.7" / > <interpretationCode codeSystem="local" code="*" /> < referenceRange> <observationRange> <text>1.8-2.4</text> </observationRange> </referenceRange> </observation > </component> </organizer> </entry> <entry> <organizer moodCode= "EVN" classCode="BATTERY"> <templateId root="10.03.840.1.700860.10..4.1 " /> <id nullFlavor="NA" /> <code codeSystem="local" code="ALEX" displayName="FERRITIN" /> <statusCode code="completed" /> <component> <observation moodCode="EVN" classCode="OBS"> <templateId root= "2.16.840.1.287519.10..22.4.2" /> <id nullFlavor="NA" /> < code codeSystem="local" code="ALEX" displayName="FERRITIN" /> < statusCode code="completed" /> <effectiveTime value="079773335852" /> <value unit="ng/mL" xsi:type="PQ" value="6" /> < interpretationCode codeSystem="local" code="*" /> <referenceRange> <observationRange> <text>8-252</text> </ observationRange> </referenceRange> </observation> </ component> </organizer> </entry> <entry> <organizer moodCode="EVN" classCode="BATTERY"> <templateId root="2.16.840.1.073207.10..22.4.1" /> <id nullFlavor="NA" /> <code codeSystem="local" code="TSH" displayName ="THYROID STIM HORMONE (TSH)" /> <statusCode code="completed" /> < component> <observation moodCode="EVN" classCode="OBS"> < templateId root="2.16.840.1.191500.10.20.22.4.2" /> <id nullFlavor="NA " /> <code codeSystem="local" code="TSH" displayName="THYROID STIM HORMONE (TSH)" /> <statusCode code="completed" /> < effectiveTime value="954772841630" /> <value unit="uIU/mL" xsi:type="PQ " value="2.55" /> <referenceRange> <observationRange> <text>0.34-4.82</text> </observationRange> </ referenceRange> </observation> </component> </organizer> </entry > <entry> <organizer moodCode="EVN" classCode="BATTERY"> <templateId root="216.840.1.439141.10..22.4.1" /> <id nullFlavor="NA" /> <code codeSystem="local" code="FETIBC" displayName="IRON W/ BINDING CAPACITY" /> <statusCode code="completed" /> <component> <observation moodCode= "EVN" classCode="OBS"> <templateId root="216.840.1.890945.10..22.4.2 " /> <id nullFlavor="NA" /> <code codeSystem="local" code= "FESAT" displayName="IRON SATURATION" /> <statusCode code="completed" / > <effectiveTime value="" /> <value unit="%SAT " xsi:type="PQ" value="2" /> <interpretationCode codeSystem="local" code="*" /> <referenceRange> <observationRange> <text>11-46</text> </observationRange> </referenceRange> </observation> </component> <component> <observation moodCode="EVN" classCode="OBS"> <templateId root= "216.840.1.807951.10...4.2" /> <id nullFlavor="NA" /> < code codeSystem="local" code="TIBC" displayName="IRON BINDING CAPACITY, TOTAL" / > <statusCode code="completed" /> <effectiveTime value= "" /> <value unit="mcg/dL" xsi:type="PQ" value="467" /> <interpretationCode codeSystem="local" code="*" /> < referenceRange> <observationRange> <text>250-450</text> </observationRange> </referenceRange> </observation > </component> <component> <observation moodCode="EVN" classCode="OBS"> <templateId root="2.16.840.1.983326.10.20.22.4.2" /> <id nullFlavor="NA" /> <code codeSystem="local" code="IRON" displayName="IRON" /> <statusCode code="completed" /> < effectiveTime value="520409289162" /> <value unit="mcg/dL" xsi:type="PQ " value="10" /> <interpretationCode codeSystem="local" code="*" /> <referenceRange> <observationRange> <text>35-150</ text> </observationRange> </referenceRange> </ observation> </component> </organizer> </entry> <entry> <organizer moodCode="EVN" classCode="BATTERY"> <templateId root= "2.16.840.1.867329.10.20.22.4.1" /> <id nullFlavor="NA" /> <code codeSystem="local" code="GLUMON" displayName="GLUCOSE (POC)" /> < statusCode code="completed" /> <component> <observation moodCode= "EVN" classCode="OBS"> <templateId root="2.16.840.1.552692.10.20.22.4.2 " /> <id nullFlavor="NA" /> <code codeSystem="local" code= "GLUMON" displayName="GLUCOSE (POC)" /> <statusCode code="completed" / > <effectiveTime value="514625505564" /> <value unit="mg/dL" xsi:type="PQ" value="195" /> <interpretationCode codeSystem="local" code="*" /> <referenceRange> <observationRange> <text>70-99</text> </observationRange> </referenceRange> </observation> </component> </organizer> </entry> <entry> < organizer moodCode="EVN" classCode="BATTERY"> <templateId root= "840.1.431798.06.06.22.4.1" /> <id nullFlavor="NA" /> <code codeSystem="local" code="GLUMON" displayName="GLUCOSE (POC)" /> < statusCode code="completed" /> <component> <observation moodCode= "EVN" classCode="OBS"> <templateId root="840.1.343243.06.06.224.2 " /> <id nullFlavor="NA" /> <code codeSystem="local" code= "GLUMON" displayName="GLUCOSE (POC)" /> <statusCode code="completed" / > <effectiveTime value="186406243506" /> <value unit="mg/dL" xsi:type="PQ" value="171" /> <interpretationCode codeSystem="local" code="*" /> <referenceRange> <observationRange> <text>70-99</text> </observationRange> </referenceRange> </observation> </component> </organizer> </entry> <entry> < organizer moodCode="EVN" classCode="BATTERY"> <templateId root= "840.1.689241.06.06.22.4.1" /> <id nullFlavor="NA" /> <code codeSystem="local" code="DIMER" displayName="D-DIMER QUANT" /> <statusCode code="completed" /> <component> <observation moodCode="EVN" classCode="OBS"> <templateId root="840.1.170019.06.06.22.4.2" /> <id nullFlavor="NA" /> <code codeSystem="local" code="DIMER" displayName="D-DIMER QUANT" /> <statusCode code="completed" /> <effectiveTime value="906103993481" /> <value unit="ng/mL" xsi:type= "PQ" value="210" /> <referenceRange> <observationRange> <text>0-229</text> </observationRange> </ referenceRange> </observation> </component> </organizer> </entry > <entry> <organizer moodCode="EVN" classCode="BATTERY"> <templateId root="16.840.1.321707.10..22.4.1" /> <id nullFlavor="NA" /> <code codeSystem="local" code="iCHEM8" displayName="CHEM/HEM PROFILE-BEDSIDE" /> <statusCode code="completed" /> <component> <observation moodCode= "EVN" classCode="OBS"> <templateId root="216.840.1.711105.10...4.2 " /> <id nullFlavor="NA" /> <code codeSystem="local" code="K" displayName="POTASSIUM" /> <statusCode code="completed" /> < effectiveTime value="195699766154" /> <value unit="mmol/L" xsi:type="PQ " value="3.7" /> <referenceRange> <observationRange> <text>3.5-5.3</text> </observationRange> </ referenceRange> </observation> </component> <component> <observation moodCode="EVN" classCode="OBS"> <templateId root= "10.03.840.1.688434.10..22.4.2" /> <id nullFlavor="NA" /> < code codeSystem="local" code="CMETHOD" displayName="METHOD" /> < statusCode code="completed" /> <effectiveTime value="684119253189" /> <value unit="" xsi:type="PQ" value="Bedside" /> < referenceRange> <observationRange> <text /> < /observationRange> </referenceRange> </observation> </ component> <component> <observation moodCode="EVN" classCode="OBS"> <templateId root="16.840.1.511017.22.4.2" /> <id nullFlavor="NA" /> <code codeSystem="local" code="GAP" displayName= "ANION GAP" /> <statusCode code="completed" /> <effectiveTime value="" /> <value unit="mmol/L" xsi:type="PQ" value="20" / > <referenceRange> <observationRange> <text>10- 20</text> </observationRange> </referenceRange> </ observation> </component> <component> <observation moodCode= "EVN" classCode="OBS"> <templateId root="10.03.840.1.006615.06.06.22.4.2 " /> <id nullFlavor="NA" /> <code codeSystem="local" code= "HMETHOD" displayName="METHOD" /> <statusCode code="completed" /> <effectiveTime value="" /> <value unit="" xsi:type="PQ " value="Bedside" /> <referenceRange> <observationRange> <text /> </observationRange> </referenceRange> </observation> </component> <component> <observation moodCode="EVN" classCode="OBS"> <templateId root= "16.840.1.405662.22.4.2" /> <id nullFlavor="NA" /> < code codeSystem="local" code="GLU" displayName="GLUCOSE" /> < statusCode code="completed" /> <effectiveTime value="" /> <value unit="mg/dL" xsi:type="PQ" value="112" /> < interpretationCode codeSystem="local" code="*" /> <referenceRange> <observationRange> <text>70-99</text> </ observationRange> </referenceRange> </observation> </ component> <component> <observation moodCode="EVN" classCode="OBS"> <templateId root="216.840.1.736684.10.20.22.4.2" /> <id nullFlavor="NA" /> <code codeSystem="local" code="BUN" displayName= "BLOOD UREA NITROGEN" /> <statusCode code="completed" /> < effectiveTime value="" /> <value unit="mg/dL" xsi:type="PQ " value="18" /> <referenceRange> <observationRange> <text>7-20</text> </observationRange> </referenceRange > </observation> </component> <component> <observation moodCode="EVN" classCode="OBS"> <templateId root= "10.03.840.1.523995.10.22.4.2" /> <id nullFlavor="NA" /> < code codeSystem="local" code="CREAT" displayName="CREATININE" /> < statusCode code="completed" /> <effectiveTime value="351247307213" /> <value unit="mg/dL" xsi:type="PQ" value="0.9" /> < referenceRange> <observationRange> <text>0.6-1.0</text> </observationRange> </referenceRange> </observation > </component> <component> <observation moodCode="EVN" classCode="OBS"> <templateId root="16.840.1.693946.10.20.22.4.2" /> <id nullFlavor="NA" /> <code codeSystem="local" code="HGBT" displayName="HEMOGLOBIN" /> <statusCode code="completed" /> < effectiveTime value="352612917266" /> <value unit="gm/dL" xsi:type="PQ " value="11.2" /> <interpretationCode codeSystem="local" code="*" /> <referenceRange> <observationRange> <text>12.0- 16.0</text> </observationRange> </referenceRange> </ observation> </component> <component> <observation moodCode= "EVN" classCode="OBS"> <templateId root="2.16.840.1.678112.10.20.22.4.2 " /> <id nullFlavor="NA" /> <code codeSystem="local" code= "HCTT" displayName="HEMATOCRIT" /> <statusCode code="completed" /> <effectiveTime value="526559844382" /> <value unit="%" xsi: type="PQ" value="33.0" /> <interpretationCode codeSystem="local" code= "*" /> <referenceRange> <observationRange> < text>37.0-47.0</text> </observationRange> </referenceRange> </observation> </component> <component> <observation moodCode="EVN" classCode="OBS"> <templateId root= "2.16.840.1.939854.10.20.22.4.2" /> <id nullFlavor="NA" /> < code codeSystem="local" code="NA" displayName="SODIUM" /> <statusCode code="completed" /> <effectiveTime value="046438007265" /> < value unit="mmol/L" xsi:type="PQ" value="136" /> <referenceRange> <observationRange> <text>135-148</text> </ observationRange> </referenceRange> </observation> </ component> <component> <observation moodCode="EVN" classCode="OBS"> <templateId root="16.840.1.319071.10..22.4.2" /> <id nullFlavor="NA" /> <code codeSystem="local" code="CL" displayName= "CHLORIDE" /> <statusCode code="completed" /> <effectiveTime value="603275209937" /> <value unit="mmol/L" xsi:type="PQ" value="98" / > <referenceRange> <observationRange> <text>98- 110</text> </observationRange> </referenceRange> </ observation> </component> <component> <observation moodCode= "EVN" classCode="OBS"> <templateId root="16.840.1.454066.10..22.4.2 " /> <id nullFlavor="NA" /> <code codeSystem="local" code="CO2 " displayName="CARBON DIOXIDE" /> <statusCode code="completed" /> <effectiveTime value="" /> <value unit="mmol/L" xsi: type="PQ" value="22" /> <referenceRange> <observationRange> <text>21-32</text> </observationRange> </ referenceRange> </observation> </component> <component> <observation moodCode="EVN" classCode="OBS"> <templateId root= "10.03.840.1.389543.10..22.4.2" /> <id nullFlavor="NA" /> < code codeSystem="local" code="CAION" displayName="CALCIUM IONIZED" /> < statusCode code="completed" /> <effectiveTime value="353592463251" /> <value unit="mg/dL" xsi:type="PQ" value="5.0" /> < referenceRange> <observationRange> <text>4.5-5.3</text> </observationRange> </referenceRange> </observation > </component> </organizer> </entry> <entry> <organizer moodCode= "EVN" classCode="BATTERY"> <templateId root="216.840.1.977692.10..22.4.1 " /> <id nullFlavor="NA" /> <code codeSystem="local" code="iCHEM8" displayName="CHEM/HEM PROFILE-BEDSIDE" /> <statusCode code="completed" /> <component> <observation moodCode="EVN" classCode="OBS"> < templateId root="216.840.1.063468.10..4.2" /> <id nullFlavor="NA " /> <code codeSystem="local" code="K" displayName="POTASSIUM" /> <statusCode code="completed" /> <effectiveTime value="385124454422 " /> <value unit="mmol/L" xsi:type="PQ" value="4.1" /> < referenceRange> <observationRange> <text>3.5-5.3</text> </observationRange> </referenceRange> </observation > </component> <component> <observation moodCode="EVN" classCode="OBS"> <templateId root="16.840.1.622420....4.2" /> <id nullFlavor="NA" /> <code codeSystem="local" code="CMETHOD " displayName="METHOD" /> <statusCode code="completed" /> < effectiveTime value="" /> <value unit="" xsi:type="PQ" value="Bedside" /> <referenceRange> <observationRange> <text /> </observationRange> </referenceRange> </observation> </component> <component> <observation moodCode="EVN" classCode="OBS"> <templateId root= "16.840.1.702005.10.22.4.2" /> <id nullFlavor="NA" /> < code codeSystem="local" code="GAP" displayName="ANION GAP" /> < statusCode code="completed" /> <effectiveTime value="" /> <value unit="mmol/L" xsi:type="PQ" value="18" /> < referenceRange> <observationRange> <text>10-20</text> </observationRange> </referenceRange> </observation> </component> <component> <observation moodCode="EVN" classCode= "OBS"> <templateId root="10.03.840.1.539842..22.4.2" /> < id nullFlavor="NA" /> <code codeSystem="local" code="HMETHOD" displayName="METHOD" /> <statusCode code="completed" /> < effectiveTime value="" /> <value unit="" xsi:type="PQ" value="Bedside" /> <referenceRange> <observationRange> <text /> </observationRange> </referenceRange> </observation> </component> <component> <observation moodCode="EVN" classCode="OBS"> <templateId root= "10.03.840.1.660231.1022.4.2" /> <id nullFlavor="NA" /> < code codeSystem="local" code="GLU" displayName="GLUCOSE" /> < statusCode code="completed" /> <effectiveTime value="" /> <value unit="mg/dL" xsi:type="PQ" value="121" /> < interpretationCode codeSystem="local" code="*" /> <referenceRange> <observationRange> <text>70-99</text> </ observationRange> </referenceRange> </observation> </ component> <component> <observation moodCode="EVN" classCode="OBS"> <templateId root="16.840.1.654012.10.4.2" /> <id nullFlavor="NA" /> <code codeSystem="local" code="BUN" displayName= "BLOOD UREA NITROGEN" /> <statusCode code="completed" /> < effectiveTime value="824446807826" /> <value unit="mg/dL" xsi:type="PQ " value="21" /> <interpretationCode codeSystem="local" code="*" /> <referenceRange> <observationRange> <text>7-20</ text> </observationRange> </referenceRange> </ observation> </component> <component> <observation moodCode= "EVN" classCode="OBS"> <templateId root="10.03.840.1.130687.06.06.224.2 " /> <id nullFlavor="NA" /> <code codeSystem="local" code= "CREAT" displayName="CREATININE" /> <statusCode code="completed" /> <effectiveTime value="207425761001" /> <value unit="mg/dL" xsi: type="PQ" value="1.1" /> <interpretationCode codeSystem="local" code="* " /> <referenceRange> <observationRange> <text> 0.6-1.0</text> </observationRange> </referenceRange> </observation> </component> <component> <observation moodCode= "EVN" classCode="OBS"> <templateId root="16.840.1.276312.06.06.22.4.2 " /> <id nullFlavor="NA" /> <code codeSystem="local" code= "HGBT" displayName="HEMOGLOBIN" /> <statusCode code="completed" /> <effectiveTime value="948591416898" /> <value unit="gm/dL" xsi: type="PQ" value="9.2" /> <interpretationCode codeSystem="local" code="* " /> <referenceRange> <observationRange> <text> 12.0-16.0</text> </observationRange> </referenceRange> </observation> </component> <component> <observation moodCode="EVN" classCode="OBS"> <templateId root= "216.840.1.227499.10.20.22.4.2" /> <id nullFlavor="NA" /> < code codeSystem="local" code="HCTT" displayName="HEMATOCRIT" /> < statusCode code="completed" /> <effectiveTime value="585318135826" /> <value unit="%" xsi:type="PQ" value="27.0" /> < interpretationCode codeSystem="local" code="*" /> <referenceRange> <observationRange> <text>37.0-47.0</text> </ observationRange> </referenceRange> </observation> </ component> <component> <observation moodCode="EVN" classCode="OBS"> <templateId root="216.840.1.733212.10.20.22.4.2" /> <id nullFlavor="NA" /> <code codeSystem="local" code="NA" displayName= "SODIUM" /> <statusCode code="completed" /> <effectiveTime value="630414483785" /> <value unit="mmol/L" xsi:type="PQ" value="137" /> <referenceRange> <observationRange> <text> 135-148</text> </observationRange> </referenceRange> </observation> </component> <component> <observation moodCode= "EVN" classCode="OBS"> <templateId root="216.840.1.206528.10..22.4.2 " /> <id nullFlavor="NA" /> <code codeSystem="local" code="CL " displayName="CHLORIDE" /> <statusCode code="completed" /> < effectiveTime value="" /> <value unit="mmol/L" xsi:type="PQ " value="103" /> <referenceRange> <observationRange> <text>98-110</text> </observationRange> </ referenceRange> </observation> </component> <component> <observation moodCode="EVN" classCode="OBS"> <templateId root= "216.840.1.685353.10..4.2" /> <id nullFlavor="NA" /> < code codeSystem="local" code="CO2" displayName="CARBON DIOXIDE" /> < statusCode code="completed" /> <effectiveTime value="" /> <value unit="mmol/L" xsi:type="PQ" value="21" /> < referenceRange> <observationRange> <text>21-32</text> </observationRange> </referenceRange> </observation> </component> <component> <observation moodCode="EVN" classCode= "OBS"> <templateId root="16.840.1.377840.22.4.2" /> < id nullFlavor="NA" /> <code codeSystem="local" code="CAION" displayName ="CALCIUM IONIZED" /> <statusCode code="completed" /> < effectiveTime value="" /> <value unit="mg/dL" xsi:type="PQ " value="5.2" /> <referenceRange> <observationRange> <text>4.5-5.3</text> </observationRange> </ referenceRange> </observation> </component> </organizer> </entry > <entry> <organizer moodCode="EVN" classCode="BATTERY"> <templateId root="2.16.840.1.234178.10..22.4.1" /> <id nullFlavor="NA" /> <code codeSystem="local" code="iTROPI" displayName="TROPONIN I BEDSIDE" /> < statusCode code="completed" /> <component> <observation moodCode= "EVN" classCode="OBS"> <templateId root="2.16.840.1.636135.10..22.4.2 " /> <id nullFlavor="NA" /> <code codeSystem="local" code= "CMETHOD" displayName="METHOD" /> <statusCode code="completed" /> <effectiveTime value="" /> <value unit="" xsi:type="PQ " value="Bedside" /> <referenceRange> <observationRange> <text /> </observationRange> </referenceRange> </observation> </component> <component> <observation moodCode="EVN" classCode="OBS"> <templateId root= "2.16.840.1.793227.10..22.4.2" /> <id nullFlavor="NA" /> < code codeSystem="local" code="TROPI" displayName="TROPONIN I" /> < statusCode code="completed" /> <effectiveTime value="880342023514" /> <value unit="ng/mL" xsi:type="PQ" value="< 0.04" /> < referenceRange> <observationRange> <text>< 0.11</text > </observationRange> </referenceRange> </observation > </component> </organizer> </entry> <entry> <organizer moodCode= "EVN" classCode="BATTERY"> <templateId root="10.03.840.1.141219.10..4.1 " /> <id nullFlavor="NA" /> <code codeSystem="local" code="UA" displayName="URINALYSIS, ROUTINE" /> <statusCode code="completed" /> < component> <observation moodCode="EVN" classCode="OBS"> < templateId root="840.1.673791.06.06.22.4.2" /> <id nullFlavor="NA " /> <code codeSystem="local" code="LEUESU" displayName="UA LEUKOCYTE ESTERASE DIPSTICK" /> <statusCode code="completed" /> < effectiveTime value="" /> <value unit="" xsi:type="PQ" value="NEGATIVE" /> <referenceRange> <observationRange> <text>NEGATIVE</text> </observationRange> </ referenceRange> </observation> </component> <component> <observation moodCode="EVN" classCode="OBS"> <templateId root= "840.1.789695.06.06.22.4.2" /> <id nullFlavor="NA" /> < code codeSystem="local" code="NITRIU" displayName="UA NITRITE DIPSTICK" /> <statusCode code="completed" /> <effectiveTime value=" " /> <value unit="" xsi:type="PQ" value="NEGATIVE" /> < referenceRange> <observationRange> <text>NEGATIVE</text > </observationRange> </referenceRange> </observation > </component> <component> <observation moodCode="EVN" classCode="OBS"> <templateId root="10.03.840.1.273190.06.06.22.4.2" /> <id nullFlavor="NA" /> <code codeSystem="local" code="PROTEIU " displayName="UA PROTEIN DIPSTICK" /> <statusCode code="completed" /> <effectiveTime value="" /> <value unit="" xsi: type="PQ" value="NEGATIVE" /> <referenceRange> < observationRange> <text>NEGATIVE</text> </ observationRange> </referenceRange> </observation> </ component> <component> <observation moodCode="EVN" classCode="OBS"> <templateId root="10.03.840.1.212958.10..4.2" /> <id nullFlavor="NA" /> <code codeSystem="local" code="DGLUU" displayName= "UA GLUCOSE DIPSTICK" /> <statusCode code="completed" /> < effectiveTime value="" /> <value unit="" xsi:type="PQ" value="NEGATIVE" /> <referenceRange> <observationRange> <text>NEGATIVE</text> </observationRange> </ referenceRange> </observation> </component> <component> <observation moodCode="EVN" classCode="OBS"> <templateId root= "10.03.840.1.074958.06.06.22.4.2" /> <id nullFlavor="NA" /> < code codeSystem="local" code="KETONU" displayName="UA KETONE DIPSTICK" /> <statusCode code="completed" /> <effectiveTime value=" " /> <value unit="" xsi:type="PQ" value="NEGATIVE" /> < referenceRange> <observationRange> <text>NEGATIVE</text > </observationRange> </referenceRange> </observation > </component> <component> <observation moodCode="EVN" classCode="OBS"> <templateId root="10.03.840.1.819931.06.06.22.4.2" /> <id nullFlavor="NA" /> <code codeSystem="local" code="UROBILU " displayName="UA UROBILINOGEN DIPSTICK" /> <statusCode code="completed " /> <effectiveTime value="" /> <value unit="" xsi :type="PQ" value="NORMAL" /> <referenceRange> < observationRange> <text>NORMAL</text> </observationRange > </referenceRange> </observation> </component> < component> <observation moodCode="EVN" classCode="OBS"> < templateId root="216.840.1.409556.06.06.22.4.2" /> <id nullFlavor="NA " /> <code codeSystem="local" code="BILU" displayName="UA BILIRUBIN DIPSTICK" /> <statusCode code="completed" /> <effectiveTime value="" /> <value unit="" xsi:type="PQ" value="NEGATIVE" / > <referenceRange> <observationRange> <text> NEGATIVE</text> </observationRange> </referenceRange> </observation> </component> <component> <observation moodCode ="EVN" classCode="OBS"> <templateId root= "2.16.840.1.387282.06.06.22.4.2" /> <id nullFlavor="NA" /> < code codeSystem="local" code="ADAM" displayName="UA BLOOD DIPSTICK" /> < statusCode code="completed" /> <effectiveTime value="" /> <value unit="" xsi:type="PQ" value="NEGATIVE" /> < referenceRange> <observationRange> <text>NEGATIVE</text > </observationRange> </referenceRange> </observation > </component> <component> <observation moodCode="EVN" classCode="OBS"> <templateId root="10.03.840.1.605749.10.22.4.2" /> <id nullFlavor="NA" /> <code codeSystem="local" code="SPGRU" displayName="UA SPECIFIC GRAVITY" /> <statusCode code="completed" /> <effectiveTime value="" /> <value unit="" xsi:type= "PQ" value="1.015" /> <referenceRange> <observationRange> <text>1.015-1.025</text> </observationRange> </ referenceRange> </observation> </component> <component> <observation moodCode="EVN" classCode="OBS"> <templateId root= "840.1.267940.22.4.2" /> <id nullFlavor="NA" /> < code codeSystem="local" code="INGRID" displayName="UR PH" /> <statusCode code="completed" /> <effectiveTime value="" /> < value unit="" xsi:type="PQ" value="6.5" /> <referenceRange> <observationRange> <text>5.0-7.0</text> </ observationRange> </referenceRange> </observation> </ component> </organizer> </entry> <entry> <organizer moodCode="EVN" classCode="BATTERY"> <templateId root="16.840.1.288456.1022.4.1" /> <id nullFlavor="NA" /> <code codeSystem="local" code="CBCD" displayName="CBC W/DIFF" /> <statusCode code="completed" /> <component > <observation moodCode="EVN" classCode="OBS"> <templateId root= "10.03.840.1.620575.10204.2" /> <id nullFlavor="NA" /> < code codeSystem="local" code="BA#" displayName="BASOPHIL #" /> < statusCode code="completed" /> <effectiveTime value="838673022827" /> <value unit="k/cumm" xsi:type="PQ" value="0.1" /> < referenceRange> <observationRange> <text>0.0-0.2</text> </observationRange> </referenceRange> </observation > </component> <component> <observation moodCode="EVN" classCode="OBS"> <templateId root="2.16.840.1.234403.06.06.224.2" /> <id nullFlavor="NA" /> <code codeSystem="local" code="BA% " displayName="BASOPHIL %" /> <statusCode code="completed" /> <effectiveTime value="" /> <value unit="%" xsi: type="PQ" value="2" /> <interpretationCode codeSystem="local" code="*" /> <referenceRange> <observationRange> <text>0- 1</text> </observationRange> </referenceRange> </ observation> </component> <component> <observation moodCode= "EVN" classCode="OBS"> <templateId root="216.840.1.941829.06.06.224.2 " /> <id nullFlavor="NA" /> <code codeSystem="local" code= "CBCCOM" displayName="COMMENT" /> <statusCode code="completed" /> <effectiveTime value="128810462450" /> <value unit="" xsi:type="PQ " value="REVIEWED" /> <referenceRange> <observationRange> <text /> </observationRange> </referenceRange> </observation> </component> <component> <observation moodCode="EVN" classCode="OBS"> <templateId root= "16.840.1.391312.10..4.2" /> <id nullFlavor="NA" /> < code codeSystem="local" code="EO#" displayName="EOSINOPHIL #" /> < statusCode code="completed" /> <effectiveTime value="" /> <value unit="k/cumm" xsi:type="PQ" value="0.2" /> < referenceRange> <observationRange> <text>0.1-0.5</text> </observationRange> </referenceRange> </observation > </component> <component> <observation moodCode="EVN" classCode="OBS"> <templateId root="10.03.840.1.474041.06.06.22.4.2" /> <id nullFlavor="NA" /> <code codeSystem="local" code="EO% " displayName="EOSINOPHIL %" /> <statusCode code="completed" /> <effectiveTime value="" /> <value unit="%" xsi: type="PQ" value="3" /> <referenceRange> <observationRange> <text>2-4</text> </observationRange> </ referenceRange> </observation> </component> <component> <observation moodCode="EVN" classCode="OBS"> <templateId root= "10.03.840.1.026198.10...4.2" /> <id nullFlavor="NA" /> < code codeSystem="local" code="GR#" displayName="GRANULOCYTE #" /> < statusCode code="completed" /> <effectiveTime value="" /> <value unit="k/cumm" xsi:type="PQ" value="2.6" /> < referenceRange> <observationRange> <text>2.0-9.0</text> </observationRange> </referenceRange> </observation > </component> <component> <observation moodCode="EVN" classCode="OBS"> <templateId root="10.03.840.1.876400.10.20.22.4.2" /> <id nullFlavor="NA" /> <code codeSystem="local" code="GR% " displayName="GRANULOCYTE %" /> <statusCode code="completed" /> <effectiveTime value="" /> <value unit="%" xsi: type="PQ" value="50" /> <referenceRange> <observationRange> <text>50-75</text> </observationRange> </ referenceRange> </observation> </component> <component> <observation moodCode="EVN" classCode="OBS"> <templateId root= "840.1.827794.10.2022.4.2" /> <id nullFlavor="NA" /> < code codeSystem="local" code="LY#" displayName="LYMPHOCYTE #" /> < statusCode code="completed" /> <effectiveTime value="708732170618" /> <value unit="k/cumm" xsi:type="PQ" value="1.6" /> < referenceRange> <observationRange> <text>1.0-4.0</text> </observationRange> </referenceRange> </observation > </component> <component> <observation moodCode="EVN" classCode="OBS"> <templateId root="10.03.840.1.577723.10.20.22.4.2" /> <id nullFlavor="NA" /> <code codeSystem="local" code="LY% " displayName="LYMPHOCYTE %" /> <statusCode code="completed" /> <effectiveTime value="" /> <value unit="%" xsi: type="PQ" value="31" /> <interpretationCode codeSystem="local" code="* " /> <referenceRange> <observationRange> <text> 20-30</text> </observationRange> </referenceRange> </ observation> </component> <component> <observation moodCode= "EVN" classCode="OBS"> <templateId root="216.840.1.785707.10.20.22.4.2 " /> <id nullFlavor="NA" /> <code codeSystem="local" code="MCH " displayName="MEAN CELL HGB" /> <statusCode code="completed" /> <effectiveTime value="" /> <value unit="pg" xsi:type= "PQ" value="22.8" /> <interpretationCode codeSystem="local" code="*" / > <referenceRange> <observationRange> <text> 27.0-33.0</text> </observationRange> </referenceRange> </observation> </component> <component> <observation moodCode="EVN" classCode="OBS"> <templateId root= "216.840.1.960103.10.20.22.4.2" /> <id nullFlavor="NA" /> < code codeSystem="local" code="MCHC" displayName="MEAN CELL HGB CONCENTRATION" / > <statusCode code="completed" /> <effectiveTime value= "" /> <value unit="g/dL" xsi:type="PQ" value="30.8" /> <interpretationCode codeSystem="local" code="*" /> < referenceRange> <observationRange> <text>32.0-37.0</text > </observationRange> </referenceRange> </observation > </component> <component> <observation moodCode="EVN" classCode="OBS"> <templateId root="216.840.1.347280.10.4.2" /> <id nullFlavor="NA" /> <code codeSystem="local" code="MCV" displayName="MEAN CELL VOLUME" /> <statusCode code="completed" /> <effectiveTime value="" /> <value unit="fl" xsi:type= "PQ" value="74.0" /> <interpretationCode codeSystem="local" code="*" / > <referenceRange> <observationRange> <text> 80.0-100.0</text> </observationRange> </referenceRange> </observation> </component> <component> <observation moodCode="EVN" classCode="OBS"> <templateId root= "10.03.840.1.079461.06.06.224.2" /> <id nullFlavor="NA" /> < code codeSystem="local" code="MO#" displayName="MONOCYTE #" /> < statusCode code="completed" /> <effectiveTime value="" /> <value unit="k/cumm" xsi:type="PQ" value="0.8" /> < referenceRange> <observationRange> <text>0.1-1.0</text> </observationRange> </referenceRange> </observation > </component> <component> <observation moodCode="EVN" classCode="OBS"> <templateId root="10.03.840.1.742953.06.06.22.4.2" /> <id nullFlavor="NA" /> <code codeSystem="local" code="MO% " displayName="MONOCYTE %" /> <statusCode code="completed" /> <effectiveTime value="707413819807" /> <value unit="%" xsi: type="PQ" value="15" /> <interpretationCode codeSystem="local" code="* " /> <referenceRange> <observationRange> <text> 4-6</text> </observationRange> </referenceRange> </ observation> </component> <component> <observation moodCode= "EVN" classCode="OBS"> <templateId root="2.16.840.1.450851.10.20.22.4.2 " /> <id nullFlavor="NA" /> <code codeSystem="local" code="RBC " displayName="RED BLOOD CELL" /> <statusCode code="completed" /> <effectiveTime value="933645135988" /> <value unit="m/cumm" xsi: type="PQ" value="3.69" /> <interpretationCode codeSystem="local" code= "*" /> <referenceRange> <observationRange> < text>4.00-6.00</text> </observationRange> </referenceRange> </observation> </component> <component> <observation moodCode="EVN" classCode="OBS"> <templateId root= "2.16.840.1.419028.10.20.22.4.2" /> <id nullFlavor="NA" /> < code codeSystem="local" code="RDW" displayName="RED CELL DISTRIBUTION WIDTH" /> <statusCode code="completed" /> <effectiveTime value= "353863263129" /> <value unit="%" xsi:type="PQ" value="18.6" /> <interpretationCode codeSystem="local" code="*" /> < referenceRange> <observationRange> <text>11.0-15.6</text > </observationRange> </referenceRange> </observation > </component> <component> <observation moodCode="EVN" classCode="OBS"> <templateId root="10.03.840.1.569449.10.20.22.4.2" /> <id nullFlavor="NA" /> <code codeSystem="local" code="WBC" displayName="WHITE BLOOD CELL" /> <statusCode code="completed" /> <effectiveTime value="" /> <value unit="k/cumm" xsi: type="PQ" value="5.2" /> <referenceRange> <observationRange > <text>5.0-10.0</text> </observationRange> </ referenceRange> </observation> </component> <component> <observation moodCode="EVN" classCode="OBS"> <templateId root= "10.03.840.1.767572.10.22.4.2" /> <id nullFlavor="NA" /> < code codeSystem="local" code="HGBT" displayName="HEMOGLOBIN" /> < statusCode code="completed" /> <effectiveTime value="" /> <value unit="gm/dL" xsi:type="PQ" value="8.4" /> < interpretationCode codeSystem="local" code="*" /> <referenceRange> <observationRange> <text>12.0-16.0</text> </ observationRange> </referenceRange> </observation> </ component> <component> <observation moodCode="EVN" classCode="OBS"> <templateId root="10.03.840.1.334365.10.2022.4.2" /> <id nullFlavor="NA" /> <code codeSystem="local" code="HCTT" displayName= "HEMATOCRIT" /> <statusCode code="completed" /> < effectiveTime value="" /> <value unit="%" xsi:type="PQ " value="27.3" /> <interpretationCode codeSystem="local" code="*" /> <referenceRange> <observationRange> <text>37.0- 47.0</text> </observationRange> </referenceRange> </ observation> </component> <component> <observation moodCode= "EVN" classCode="OBS"> <templateId root="216.840.1.499347.1022.4.2 " /> <id nullFlavor="NA" /> <code codeSystem="local" code="PLT " displayName="PLATELET COUNT" /> <statusCode code="completed" /> <effectiveTime value="421815508959" /> <value unit="k/cumm" xsi: type="PQ" value="327" /> <referenceRange> <observationRange > <text>150-400</text> </observationRange> </ referenceRange> </observation> </component> </organizer> </entry > <entry> <organizer moodCode="EVN" classCode="BATTERY"> <templateId root="216.840.1.998670.06.06.22.4.1" /> <id nullFlavor="NA" /> <code codeSystem="local" code="iTROPI" displayName="TROPONIN I BEDSIDE" /> < statusCode code="completed" /> <component> <observation moodCode= "EVN" classCode="OBS"> <templateId root="216.840.1.237816.1022.4.2 " /> <id nullFlavor="NA" /> <code codeSystem="local" code= "CMETHOD" displayName="METHOD" /> <statusCode code="completed" /> <effectiveTime value="071612683394" /> <value unit="" xsi:type="PQ " value="Bedside" /> <referenceRange> <observationRange> <text /> </observationRange> </referenceRange> </observation> </component> <component> <observation moodCode="EVN" classCode="OBS"> <templateId root= "2.16.840.1.920719.10..22.4.2" /> <id nullFlavor="NA" /> < code codeSystem="local" code="TROPI" displayName="TROPONIN I" /> < statusCode code="completed" /> <effectiveTime value="820712968418" /> <value unit="ng/mL" xsi:type="PQ" value="< 0.04" /> < referenceRange> <observationRange> <text>< 0.11</text > </observationRange> </referenceRange> </observation > </component> </organizer> </entry> <entry> <organizer moodCode= "EVN" classCode="BATTERY"> <templateId root="2.16.840.1.176939.10..22.4.1 " /> <id nullFlavor="NA" /> <code codeSystem="local" code="UA" displayName="URINALYSIS, ROUTINE" /> <statusCode code="completed" /> < component> <observation moodCode="EVN" classCode="OBS"> < templateId root="2.16.840.1.640680.10..22.4.2" /> <id nullFlavor="NA " /> <code codeSystem="local" code="LEUESU" displayName="UA LEUKOCYTE ESTERASE DIPSTICK" /> <statusCode code="completed" /> < effectiveTime value="251584870672" /> <value unit="" xsi:type="PQ" value="NEGATIVE" /> <referenceRange> <observationRange> <text>NEGATIVE</text> </observationRange> </ referenceRange> </observation> </component> <component> <observation moodCode="EVN" classCode="OBS"> <templateId root= "216.840.1.472589.10..22.4.2" /> <id nullFlavor="NA" /> < code codeSystem="local" code="NITRIU" displayName="UA NITRITE DIPSTICK" /> <statusCode code="completed" /> <effectiveTime value="819489592058 " /> <value unit="" xsi:type="PQ" value="NEGATIVE" /> < referenceRange> <observationRange> <text>NEGATIVE</text > </observationRange> </referenceRange> </observation > </component> <component> <observation moodCode="EVN" classCode="OBS"> <templateId root="216.840.1.274050.10...4.2" /> <id nullFlavor="NA" /> <code codeSystem="local" code="PROTEIU " displayName="UA PROTEIN DIPSTICK" /> <statusCode code="completed" /> <effectiveTime value="279522741940" /> <value unit="" xsi: type="PQ" value="NEGATIVE" /> <referenceRange> < observationRange> <text>NEGATIVE</text> </ observationRange> </referenceRange> </observation> </ component> <component> <observation moodCode="EVN" classCode="OBS"> <templateId root="16.840.1.862414.10..22.4.2" /> <id nullFlavor="NA" /> <code codeSystem="local" code="DGLUU" displayName= "UA GLUCOSE DIPSTICK" /> <statusCode code="completed" /> < effectiveTime value="916482604788" /> <value unit="" xsi:type="PQ" value="NEGATIVE" /> <referenceRange> <observationRange> <text>NEGATIVE</text> </observationRange> </ referenceRange> </observation> </component> <component> <observation moodCode="EVN" classCode="OBS"> <templateId root= "216.840.1.480718.10.4.2" /> <id nullFlavor="NA" /> < code codeSystem="local" code="KETONU" displayName="UA KETONE DIPSTICK" /> <statusCode code="completed" /> <effectiveTime value="810736275029 " /> <value unit="" xsi:type="PQ" value="NEGATIVE" /> < referenceRange> <observationRange> <text>NEGATIVE</text > </observationRange> </referenceRange> </observation > </component> <component> <observation moodCode="EVN" classCode="OBS"> <templateId root="10.03.840.1.352559.06.06.22.4.2" /> <id nullFlavor="NA" /> <code codeSystem="local" code="UROBILU " displayName="UA UROBILINOGEN DIPSTICK" /> <statusCode code="completed " /> <effectiveTime value="683097546116" /> <value unit="" xsi :type="PQ" value="NORMAL" /> <referenceRange> < observationRange> <text>NORMAL</text> </observationRange > </referenceRange> </observation> </component> < component> <observation moodCode="EVN" classCode="OBS"> < templateId root="216.840.1.568568.06.06.22.4.2" /> <id nullFlavor="NA " /> <code codeSystem="local" code="BILU" displayName="UA BILIRUBIN DIPSTICK" /> <statusCode code="completed" /> <effectiveTime value="023254852211" /> <value unit="" xsi:type="PQ" value="NEGATIVE" / > <referenceRange> <observationRange> <text> NEGATIVE</text> </observationRange> </referenceRange> </observation> </component> <component> <observation moodCode ="EVN" classCode="OBS"> <templateId root= "216.840.1.358733.10.20.22.4.2" /> <id nullFlavor="NA" /> < code codeSystem="local" code="ADAM" displayName="UA BLOOD DIPSTICK" /> < statusCode code="completed" /> <effectiveTime value="749956026050" /> <value unit="" xsi:type="PQ" value="TRACE" /> < interpretationCode codeSystem="local" code="*" /> <referenceRange> <observationRange> <text>NEGATIVE</text> </ observationRange> </referenceRange> </observation> </ component> <component> <observation moodCode="EVN" classCode="OBS"> <templateId root="10.03.840.1.692870.10..4.2" /> <id nullFlavor="NA" /> <code codeSystem="local" code="SPGRU" displayName= "UA SPECIFIC GRAVITY" /> <statusCode code="completed" /> < effectiveTime value="774386743404" /> <value unit="" xsi:type="PQ" value="1.015" /> <referenceRange> <observationRange> <text>1.015-1.025</text> </observationRange> </ referenceRange> </observation> </component> <component> <observation moodCode="EVN" classCode="OBS"> <templateId root= "16.840.1.498415.10.20.22.4.2" /> <id nullFlavor="NA" /> < code codeSystem="local" code="INGRID" displayName="UR PH" /> <statusCode code="completed" /> <effectiveTime value="857400303365" /> < value unit="" xsi:type="PQ" value="6.0" /> <referenceRange> <observationRange> <text>5.0-7.0</text> </ observationRange> </referenceRange> </observation> </ component> </organizer> </entry> <entry> <organizer moodCode="EVN" classCode="BATTERY"> <templateId root="216.840.1.905693.10...4.1" /> <id nullFlavor="NA" /> <code codeSystem="local" code="UAMICRO" displayName="UA MICROSCOPIC" /> <statusCode code="completed" /> < component> <observation moodCode="EVN" classCode="OBS"> < templateId root="216.840.1.089063.10...4.2" /> <id nullFlavor="NA " /> <code codeSystem="local" code="RBCU" displayName="UA RBC" /> <statusCode code="completed" /> <effectiveTime value="698315089553 " /> <value unit="rbc/hpf" xsi:type="PQ" value="0-3" /> < referenceRange> <observationRange> <text>0 - 3</text> </observationRange> </referenceRange> </observation> </component> <component> <observation moodCode="EVN" classCode= "OBS"> <templateId root="216.840.1.341073.10...4.2" /> < id nullFlavor="NA" /> <code codeSystem="local" code="UAVOL" displayName ="UA VOLUME FOR EXAM" /> <statusCode code="completed" /> < effectiveTime value="088239138059" /> <value unit="mL" xsi:type="PQ" value="12.0" /> <referenceRange> <observationRange> <text>(12mL STD)</text> </observationRange> </ referenceRange> </observation> </component> <component> <observation moodCode="EVN" classCode="OBS"> <templateId root= "216.840.1.220415.22.4.2" /> <id nullFlavor="NA" /> < code codeSystem="local" code="WBCU" displayName="UA WBC" /> < statusCode code="completed" /> <effectiveTime value="305176302423" /> <value unit="wbc/hpf" xsi:type="PQ" value="0-1" /> < referenceRange> <observationRange> <text>0 - 5</text> </observationRange> </referenceRange> </observation> </component> </organizer> </entry> <entry> <organizer moodCode="EVN " classCode="BATTERY"> <templateId root="10.03.840.1.299068.22.4.1" / > <id nullFlavor="NA" /> <code codeSystem="local" code="iCHEM8" displayName="CHEM/HEM PROFILE-BEDSIDE" /> <statusCode code="completed" /> <component> <observation moodCode="EVN" classCode="OBS"> < templateId root="16.840.1.385006.1022.4.2" /> <id nullFlavor="NA " /> <code codeSystem="local" code="K" displayName="POTASSIUM" /> <statusCode code="completed" /> <effectiveTime value="258049264287 " /> <value unit="mmol/L" xsi:type="PQ" value="4.1" /> < referenceRange> <observationRange> <text>3.5-5.3</text> </observationRange> </referenceRange> </observation > </component> <component> <observation moodCode="EVN" classCode="OBS"> <templateId root="216.840.1.290031.10...4.2" /> <id nullFlavor="NA" /> <code codeSystem="local" code="CMETHOD " displayName="METHOD" /> <statusCode code="completed" /> < effectiveTime value="430965691452" /> <value unit="" xsi:type="PQ" value="Bedside" /> <referenceRange> <observationRange> <text /> </observationRange> </referenceRange> </observation> </component> <component> <observation moodCode="EVN" classCode="OBS"> <templateId root= "10.03.840.1.439528.06.06.22.4.2" /> <id nullFlavor="NA" /> < code codeSystem="local" code="GAP" displayName="ANION GAP" /> < statusCode code="completed" /> <effectiveTime value="853751094185" /> <value unit="mmol/L" xsi:type="PQ" value="17" /> < referenceRange> <observationRange> <text>10-20</text> </observationRange> </referenceRange> </observation> </component> <component> <observation moodCode="EVN" classCode= "OBS"> <templateId root="10.03.840.1.581192...4.2" /> < id nullFlavor="NA" /> <code codeSystem="local" code="HMETHOD" displayName="METHOD" /> <statusCode code="completed" /> < effectiveTime value="518452948730" /> <value unit="" xsi:type="PQ" value="Bedside" /> <referenceRange> <observationRange> <text /> </observationRange> </referenceRange> </observation> </component> <component> <observation moodCode="EVN" classCode="OBS"> <templateId root= "16.840.1.373499.10.20.22.4.2" /> <id nullFlavor="NA" /> < code codeSystem="local" code="GLU" displayName="GLUCOSE" /> < statusCode code="completed" /> <effectiveTime value="062394795626" /> <value unit="mg/dL" xsi:type="PQ" value="114" /> < interpretationCode codeSystem="local" code="*" /> <referenceRange> <observationRange> <text>70-99</text> </ observationRange> </referenceRange> </observation> </ component> <component> <observation moodCode="EVN" classCode="OBS"> <templateId root="10.03.840.1.042952.10.22.4.2" /> <id nullFlavor="NA" /> <code codeSystem="local" code="BUN" displayName= "BLOOD UREA NITROGEN" /> <statusCode code="completed" /> < effectiveTime value="294556612511" /> <value unit="mg/dL" xsi:type="PQ " value="15" /> <referenceRange> <observationRange> <text>7-20</text> </observationRange> </referenceRange > </observation> </component> <component> <observation moodCode="EVN" classCode="OBS"> <templateId root= "10.03.840.1.693671.10.20.22.4.2" /> <id nullFlavor="NA" /> < code codeSystem="local" code="CREAT" displayName="CREATININE" /> < statusCode code="completed" /> <effectiveTime value="237926452850" /> <value unit="mg/dL" xsi:type="PQ" value="0.9" /> < referenceRange> <observationRange> <text>0.6-1.0</text> </observationRange> </referenceRange> </observation > </component> <component> <observation moodCode="EVN" classCode="OBS"> <templateId root="216.840.1.098904.10.20.22.4.2" /> <id nullFlavor="NA" /> <code codeSystem="local" code="HGBT" displayName="HEMOGLOBIN" /> <statusCode code="completed" /> < effectiveTime value="574373232288" /> <value unit="gm/dL" xsi:type="PQ " value="11.9" /> <interpretationCode codeSystem="local" code="*" /> <referenceRange> <observationRange> <text>12.0- 16.0</text> </observationRange> </referenceRange> </ observation> </component> <component> <observation moodCode= "EVN" classCode="OBS"> <templateId root="2.16.840.1.588732.10.20.22.4.2 " /> <id nullFlavor="NA" /> <code codeSystem="local" code= "HCTT" displayName="HEMATOCRIT" /> <statusCode code="completed" /> <effectiveTime value="772246537948" /> <value unit="%" xsi: type="PQ" value="35.0" /> <interpretationCode codeSystem="local" code= "*" /> <referenceRange> <observationRange> < text>37.0-47.0</text> </observationRange> </referenceRange> </observation> </component> <component> <observation moodCode="EVN" classCode="OBS"> <templateId root= "216.840.1.808057.10..22.4.2" /> <id nullFlavor="NA" /> < code codeSystem="local" code="NA" displayName="SODIUM" /> <statusCode code="completed" /> <effectiveTime value="501630411446" /> < value unit="mmol/L" xsi:type="PQ" value="132" /> <interpretationCode codeSystem="local" code="*" /> <referenceRange> < observationRange> <text>135-148</text> </ observationRange> </referenceRange> </observation> </ component> <component> <observation moodCode="EVN" classCode="OBS"> <templateId root="216.840.1.802170.10...4.2" /> <id nullFlavor="NA" /> <code codeSystem="local" code="CL" displayName= "CHLORIDE" /> <statusCode code="completed" /> <effectiveTime value="370412738163" /> <value unit="mmol/L" xsi:type="PQ" value="97" / > <interpretationCode codeSystem="local" code="*" /> < referenceRange> <observationRange> <text>98-110</text> </observationRange> </referenceRange> </observation> </component> <component> <observation moodCode="EVN" classCode ="OBS"> <templateId root="16.840.1.601508.10..22.4.2" /> < id nullFlavor="NA" /> <code codeSystem="local" code="CO2" displayName= "CARBON DIOXIDE" /> <statusCode code="completed" /> < effectiveTime value="736542174064" /> <value unit="mmol/L" xsi:type="PQ " value="22" /> <referenceRange> <observationRange> <text>21-32</text> </observationRange> </ referenceRange> </observation> </component> <component> <observation moodCode="EVN" classCode="OBS"> <templateId root= "216.840.1.400246.10.20.22.4.2" /> <id nullFlavor="NA" /> < code codeSystem="local" code="CAION" displayName="CALCIUM IONIZED" /> < statusCode code="completed" /> <effectiveTime value="878637578278" /> <value unit="mg/dL" xsi:type="PQ" value="4.7" /> < referenceRange> <observationRange> <text>4.5-5.3</text> </observationRange> </referenceRange> </observation > </component> </organizer> </entry> <entry> <organizer moodCode= "EVN" classCode="BATTERY"> <templateId root="2.16.840.1.295813.10..22.4.1 " /> <id nullFlavor="NA" /> <code codeSystem="local" code="WET" displayName="WET MOUNT" /> <statusCode code="completed" /> <component > <observation moodCode="EVN" classCode="OBS"> <templateId root= "16.840.1.696584.10..22.4.2" /> <id nullFlavor="NA" /> < code codeSystem="local" code="MB" displayName="Microbiology" /> < statusCode code="completed" /> <effectiveTime value="918056183373" /> <value xsi:type="ST" value="<pre><b>WET MOUNT</b> See BelowWET MOUNT(F ) Cosme Date/Time: 04/27/2016 : Irvin Date/Time: 04/27/2016 18:42SOURCE: VAGINALSPEC DESC: CLUE CELLSNO CLUE CELLS SEENTRICHOMONASNO TRICHOMONAS SEENWBCMANY W[facility]YEASTNO [facility] [facility] [place] [place] [address]</pre>" /> <referenceRange > <observationRange> <text /> </ observationRange> </referenceRange> </observation> </ component> </organizer> </entry> <entry> <organizer moodCode="EVN" classCode="BATTERY"> <templateId root="2.16.840.1.399309.10..22.4.1" /> <id nullFlavor="NA" /> <code codeSystem="local" code="UA" displayName= "URINALYSIS, ROUTINE" /> <statusCode code="completed" /> <component> <observation moodCode="EVN" classCode="OBS"> <templateId root= "2.16.840.1.972759.10..22.4.2" /> <id nullFlavor="NA" /> < code codeSystem="local" code="LEUESU" displayName="UA LEUKOCYTE ESTERASE DIPSTICK" /> <statusCode code="completed" /> <effectiveTime value="372664485726" /> <value unit="" xsi:type="PQ" value="TRACE" /> <referenceRange> <observationRange> <text> NEGATIVE</text> </observationRange> </referenceRange> </observation> </component> <component> <observation moodCode ="EVN" classCode="OBS"> <templateId root= "2.16.840.1.842216.10..22.4.2" /> <id nullFlavor="NA" /> < code codeSystem="local" code="NITRIU" displayName="UA NITRITE DIPSTICK" /> <statusCode code="completed" /> <effectiveTime value="469361863311 " /> <value unit="" xsi:type="PQ" value="NEGATIVE" /> < referenceRange> <observationRange> <text>NEGATIVE</text > </observationRange> </referenceRange> </observation > </component> <component> <observation moodCode="EVN" classCode="OBS"> <templateId root="10.03.840.1.179294.10.4.2" /> <id nullFlavor="NA" /> <code codeSystem="local" code="PROTEIU " displayName="UA PROTEIN DIPSTICK" /> <statusCode code="completed" /> <effectiveTime value="466853222476" /> <value unit="" xsi: type="PQ" value="NEGATIVE" /> <referenceRange> < observationRange> <text>NEGATIVE</text> </ observationRange> </referenceRange> </observation> </ component> <component> <observation moodCode="EVN" classCode="OBS"> <templateId root="840.1.683775.06.06.22.4.2" /> <id nullFlavor="NA" /> <code codeSystem="local" code="DGLUU" displayName= "UA GLUCOSE DIPSTICK" /> <statusCode code="completed" /> < effectiveTime value="367409661800" /> <value unit="" xsi:type="PQ" value="NEGATIVE" /> <referenceRange> <observationRange> <text>NEGATIVE</text> </observationRange> </ referenceRange> </observation> </component> <component> <observation moodCode="EVN" classCode="OBS"> <templateId root= "840.1.205715.10.4.2" /> <id nullFlavor="NA" /> < code codeSystem="local" code="KETONU" displayName="UA KETONE DIPSTICK" /> <statusCode code="completed" /> <effectiveTime value="316373466974 " /> <value unit="" xsi:type="PQ" value="NEGATIVE" /> < referenceRange> <observationRange> <text>NEGATIVE</text > </observationRange> </referenceRange> </observation > </component> <component> <observation moodCode="EVN" classCode="OBS"> <templateId root="16.840.1.194589.10.4.2" /> <id nullFlavor="NA" /> <code codeSystem="local" code="UROBILU " displayName="UA UROBILINOGEN DIPSTICK" /> <statusCode code="completed " /> <effectiveTime value="691787225720" /> <value unit="" xsi :type="PQ" value="NORMAL" /> <referenceRange> < observationRange> <text>NORMAL</text> </observationRange > </referenceRange> </observation> </component> < component> <observation moodCode="EVN" classCode="OBS"> < templateId root="10.03.840.1.796048.06.06.22.4.2" /> <id nullFlavor="NA " /> <code codeSystem="local" code="BILU" displayName="UA BILIRUBIN DIPSTICK" /> <statusCode code="completed" /> <effectiveTime value="631037379911" /> <value unit="" xsi:type="PQ" value="NEGATIVE" / > <referenceRange> <observationRange> <text> NEGATIVE</text> </observationRange> </referenceRange> </observation> </component> <component> <observation moodCode ="EVN" classCode="OBS"> <templateId root= "16.840.1.359451.22.4.2" /> <id nullFlavor="NA" /> < code codeSystem="local" code="ADAM" displayName="UA BLOOD DIPSTICK" /> < statusCode code="completed" /> <effectiveTime value="454059619390" /> <value unit="" xsi:type="PQ" value="TRACE" /> < interpretationCode codeSystem="local" code="*" /> <referenceRange> <observationRange> <text>NEGATIVE</text> </ observationRange> </referenceRange> </observation> </ component> <component> <observation moodCode="EVN" classCode="OBS"> <templateId root="2.16.840.1.379937.10...4.2" /> <id nullFlavor="NA" /> <code codeSystem="local" code="SPGRU" displayName= "UA SPECIFIC GRAVITY" /> <statusCode code="completed" /> < effectiveTime value="344625889084" /> <value unit="" xsi:type="PQ" value="1.025" /> <referenceRange> <observationRange> <text>1.015-1.025</text> </observationRange> </ referenceRange> </observation> </component> <component> <observation moodCode="EVN" classCode="OBS"> <templateId root= "2.16.840.1.868415.10..22.4.2" /> <id nullFlavor="NA" /> < code codeSystem="local" code="INGRID" displayName="UR PH" /> <statusCode code="completed" /> <effectiveTime value="718132501764" /> < value unit="" xsi:type="PQ" value="6.0" /> <referenceRange> <observationRange> <text>5.0-7.0</text> </ observationRange> </referenceRange> </observation> </ component> </organizer> </entry> <entry> <organizer moodCode="EVN" classCode="BATTERY"> <templateId root="16.840.1.771150.10..22.4.1" /> <id nullFlavor="NA" /> <code codeSystem="local" code="UAMICRO" displayName="UA MICROSCOPIC" /> <statusCode code="completed" /> < component> <observation moodCode="EVN" classCode="OBS"> < templateId root="10.03.840.1.484060.06.06.22.4.2" /> <id nullFlavor="NA " /> <code codeSystem="local" code="MUCUSU" displayName="UA MUCUS" /> <statusCode code="completed" /> <effectiveTime value= "353963925671" /> <value unit="" xsi:type="PQ" value="1+" /> < referenceRange> <observationRange> <text>NEG TO 1+</text > </observationRange> </referenceRange> </observation > </component> <component> <observation moodCode="EVN" classCode="OBS"> <templateId root="10.03.840.1.659091.06.06.22.4.2" /> <id nullFlavor="NA" /> <code codeSystem="local" code="RBCU" displayName="UA RBC" /> <statusCode code="completed" /> < effectiveTime value="128577327972" /> <value unit="rbc/hpf" xsi:type= "PQ" value="0-3" /> <referenceRange> <observationRange> <text>0 - 3</text> </observationRange> </ referenceRange> </observation> </component> <component> <observation moodCode="EVN" classCode="OBS"> <templateId root= "10.03.840.1.915496.06.06.22.4.2" /> <id nullFlavor="NA" /> < code codeSystem="local" code="UAVOL" displayName="UA VOLUME FOR EXAM" /> <statusCode code="completed" /> <effectiveTime value="462089130418" /> <value unit="mL" xsi:type="PQ" value="12.0" /> < referenceRange> <observationRange> <text>(12mL STD)</ text> </observationRange> </referenceRange> </ observation> </component> <component> <observation moodCode= "EVN" classCode="OBS"> <templateId root="840.1.748408.06.06.22.4.2 " /> <id nullFlavor="NA" /> <code codeSystem="local" code= "WBCU" displayName="UA WBC" /> <statusCode code="completed" /> <effectiveTime value="698130259022" /> <value unit="wbc/hpf" xsi:type ="PQ" value="2-5" /> <referenceRange> <observationRange> <text>0 - 5</text> </observationRange> </ referenceRange> </observation> </component> </organizer> </entry > <entry> <organizer moodCode="EVN" classCode="BATTERY"> <templateId root="840.1.020367.06.06.22.4.1" /> <id nullFlavor="NA" /> <code codeSystem="local" code="CHL" displayName="CHLAMYDIA DNA BY PCR" /> < statusCode code="completed" /> <component> <observation moodCode= "EVN" classCode="OBS"> <templateId root="10.03.840.1.423709.10.4.2 " /> <id nullFlavor="NA" /> <code codeSystem="local" code="MB " displayName="Microbiology" /> <statusCode code="completed" /> <effectiveTime value="768332834991" /> <value xsi:type="ST" value="< pre><b>CHLAMYDIA DNA BY PCR - GONORRHOEA DNA BY PCR</b> See BelowCHLAMYDIA DNA BY PCR(F) Cosme Date/Time: 04/27/2016 18:15 Irvin Date/Time: 04/29/2016 13:36SOURCE: URINESPEC DESC: [address] [id number] BelowGONORRHOEA DNA BY PCR(F) Cosme Date/Time: 04/27/2016 18:15 Irvin Date/ Time: 04/29/2016 13:36SOURCE: URINESPEC DESC: [address] [id number]</pre>" /> <referenceRange> <observationRange> <text /> </observationRange> </referenceRange> </observation> </component> </organizer > </entry> <entry> <organizer moodCode="EVN" classCode="BATTERY"> < templateId root="2.16.840.1.165413.10.20.22.4.1" /> <id nullFlavor="NA" /> <code codeSystem="local" code="PREGU" displayName="UR TEST" /> <statusCode code="completed" /> <component> <observation moodCode="EVN" classCode="OBS"> <templateId root= "2.16.840.1.864023.10.20.22.4.2" /> <id nullFlavor="NA" /> < code codeSystem="local" code="PREGU" displayName="UR TEST" /> <statusCode code="completed" /> <effectiveTime value="106529146156" / > <value unit="" xsi:type="PQ" value="NEGATIVE" /> < referenceRange> <observationRange> <text>NEGATIVE</text > </observationRange> </referenceRange> </observation > </component> </organizer> </entry> <entry> <organizer moodCode= "EVN" classCode="BATTERY"> <templateId root="2.16.840.1.933175.10..22.4.1 " /> <id nullFlavor="NA" /> <code codeSystem="local" code="GRAM" displayName="GRAM STAIN - CHLAMYDIA DNA BY PCR" /> <statusCode code= "completed" /> <component> <observation moodCode="EVN" classCode= "OBS"> <templateId root="2.16.840.1.145669.10...4.2" /> < id nullFlavor="NA" /> <code codeSystem="local" code="MB" displayName= "Microbiology" /> <statusCode code="completed" /> < effectiveTime value="320011643843" /> <value xsi:type="ST" value="<pre> <b>GRAM STAIN</b> See BelowGRAM STAIN(F) Cosme Date/Time: 2015 18:22 Irvin Date/Time: 04/27/2016 18:48SOURCE : VAGINALSPEC DESC: GRAM STAINMODERATE NEUTROPHILSRARE MIXED BACTERIAL FLORANO ORGANISMS SEEN RESEMBLING NEISSERIA [facility] [place] [address]</pre>" /> <referenceRange> < observationRange> <text /> </observationRange> </referenceRange> </observation> </component> </organizer> </ entry> <entry> <organizer moodCode="EVN" classCode="BATTERY"> < templateId root="2.16.840.1.584771.10..22.4.1" /> <id nullFlavor="NA" /> <code codeSystem="local" code="CBCD" displayName="CBC W/DIFF" /> < statusCode code="completed" /> <component> <observation moodCode= "EVN" classCode="OBS"> <templateId root="10.03.840.1.767946.10.22.4.2 " /> <id nullFlavor="NA" /> <code codeSystem="local" code="BA# " displayName="BASOPHIL #" /> <statusCode code="completed" /> <effectiveTime value="" /> <value unit="k/cumm" xsi:type= "PQ" value="0.1" /> <referenceRange> <observationRange> <text>0.0-0.2</text> </observationRange> </ referenceRange> </observation> </component> <component> <observation moodCode="EVN" classCode="OBS"> <templateId root= "10.03.840.1.218038.06.06.22.4.2" /> <id nullFlavor="NA" /> < code codeSystem="local" code="BA%" displayName="BASOPHIL %" /> <statusCode code="completed" /> <effectiveTime value="" /> <value unit="%" xsi:type="PQ" value="1" /> < referenceRange> <observationRange> <text>0-1</text> </observationRange> </referenceRange> </observation> </component> <component> <observation moodCode="EVN" classCode= "OBS"> <templateId root="10.03.840.1.462917.10.22.4.2" /> < id nullFlavor="NA" /> <code codeSystem="local" code="EO#" displayName= "EOSINOPHIL #" /> <statusCode code="completed" /> < effectiveTime value="" /> <value unit="k/cumm" xsi:type="PQ " value="0.2" /> <referenceRange> <observationRange> <text>0.1-0.5</text> </observationRange> </ referenceRange> </observation> </component> <component> <observation moodCode="EVN" classCode="OBS"> <templateId root= "16.840.1.421558.10..4.2" /> <id nullFlavor="NA" /> < code codeSystem="local" code="EO%" displayName="EOSINOPHIL %" /> <statusCode code="completed" /> <effectiveTime value="" /> <value unit="%" xsi:type="PQ" value="3" /> < referenceRange> <observationRange> <text>2-4</text> </observationRange> </referenceRange> </observation> </component> <component> <observation moodCode="EVN" classCode= "OBS"> <templateId root="10.03.840.1.647989.10..4.2" /> < id nullFlavor="NA" /> <code codeSystem="local" code="GR#" displayName= "GRANULOCYTE #" /> <statusCode code="completed" /> < effectiveTime value="" /> <value unit="k/cumm" xsi:type="PQ " value="2.9" /> <referenceRange> <observationRange> <text>2.0-9.0</text> </observationRange> </ referenceRange> </observation> </component> <component> <observation moodCode="EVN" classCode="OBS"> <templateId root= "10.03.840.1.239172.10..4.2" /> <id nullFlavor="NA" /> < code codeSystem="local" code="GR%" displayName="GRANULOCYTE %" /> <statusCode code="completed" /> <effectiveTime value=" " /> <value unit="%" xsi:type="PQ" value="52" /> < referenceRange> <observationRange> <text>50-75</text> </observationRange> </referenceRange> </observation> </component> <component> <observation moodCode="EVN" classCode= "OBS"> <templateId root="2.16.840.1.098294.10.4.2" /> < id nullFlavor="NA" /> <code codeSystem="local" code="LY#" displayName= "LYMPHOCYTE #" /> <statusCode code="completed" /> < effectiveTime value="" /> <value unit="k/cumm" xsi:type="PQ " value="1.7" /> <referenceRange> <observationRange> <text>1.0-4.0</text> </observationRange> </ referenceRange> </observation> </component> <component> <observation moodCode="EVN" classCode="OBS"> <templateId root= "2.16.840.1.632455.104.2" /> <id nullFlavor="NA" /> < code codeSystem="local" code="LY%" displayName="LYMPHOCYTE %" /> <statusCode code="completed" /> <effectiveTime value="" /> <value unit="%" xsi:type="PQ" value="31" /> < interpretationCode codeSystem="local" code="*" /> <referenceRange> <observationRange> <text>20-30</text> </ observationRange> </referenceRange> </observation> </ component> <component> <observation moodCode="EVN" classCode="OBS"> <templateId root="2.16.840.1.777323.10.22.4.2" /> <id nullFlavor="NA" /> <code codeSystem="local" code="MCH" displayName= "MEAN CELL HGB" /> <statusCode code="completed" /> < effectiveTime value="" /> <value unit="pg" xsi:type="PQ" value="23.4" /> <interpretationCode codeSystem="local" code="*" /> <referenceRange> <observationRange> <text>27.0- 33.0</text> </observationRange> </referenceRange> </ observation> </component> <component> <observation moodCode= "EVN" classCode="OBS"> <templateId root="10.03.840.1.762630.1022.4.2 " /> <id nullFlavor="NA" /> <code codeSystem="local" code= "MCHC" displayName="MEAN CELL HGB CONCENTRATION" /> <statusCode code= "completed" /> <effectiveTime value="" /> <value unit="g/dL" xsi:type="PQ" value="30.6" /> <interpretationCode codeSystem="local" code="*" /> <referenceRange> < observationRange> <text>32.0-37.0</text> </ observationRange> </referenceRange> </observation> </ component> <component> <observation moodCode="EVN" classCode="OBS"> <templateId root="840.1.670522.10.22.4.2" /> <id nullFlavor="NA" /> <code codeSystem="local" code="MCV" displayName= "MEAN CELL VOLUME" /> <statusCode code="completed" /> < effectiveTime value="" /> <value unit="fl" xsi:type="PQ" value="76.3" /> <interpretationCode codeSystem="local" code="*" /> <referenceRange> <observationRange> <text>80.0- 100.0</text> </observationRange> </referenceRange> </ observation> </component> <component> <observation moodCode= "EVN" classCode="OBS"> <templateId root="216.840.1.960100.10..22.4.2 " /> <id nullFlavor="NA" /> <code codeSystem="local" code="MO# " displayName="MONOCYTE #" /> <statusCode code="completed" /> <effectiveTime value="" /> <value unit="k/cumm" xsi:type= "PQ" value="0.7" /> <referenceRange> <observationRange> <text>0.1-1.0</text> </observationRange> </ referenceRange> </observation> </component> <component> <observation moodCode="EVN" classCode="OBS"> <templateId root= "10.03.840.1.533432.10..4.2" /> <id nullFlavor="NA" /> < code codeSystem="local" code="MO%" displayName="MONOCYTE %" /> <statusCode code="completed" /> <effectiveTime value="" /> <value unit="%" xsi:type="PQ" value="12" /> < interpretationCode codeSystem="local" code="*" /> <referenceRange> <observationRange> <text>4-6</text> </ observationRange> </referenceRange> </observation> </ component> <component> <observation moodCode="EVN" classCode="OBS"> <templateId root="16.840.1.412517.10...4.2" /> <id nullFlavor="NA" /> <code codeSystem="local" code="RBC" displayName=" RED BLOOD CELL" /> <statusCode code="completed" /> < effectiveTime value="" /> <value unit="m/cumm" xsi:type="PQ " value="3.89" /> <interpretationCode codeSystem="local" code="*" /> <referenceRange> <observationRange> <text>4.00- 6.00</text> </observationRange> </referenceRange> </ observation> </component> <component> <observation moodCode= "EVN" classCode="OBS"> <templateId root="2.16.840.1.108888.10..22.4.2 " /> <id nullFlavor="NA" /> <code codeSystem="local" code="RDW " displayName="RED CELL DISTRIBUTION WIDTH" /> <statusCode code= "completed" /> <effectiveTime value="" /> <value unit="%" xsi:type="PQ" value="15.7" /> <interpretationCode codeSystem="local" code="*" /> <referenceRange> < observationRange> <text>11.0-15.6</text> </ observationRange> </referenceRange> </observation> </ component> <component> <observation moodCode="EVN" classCode="OBS"> <templateId root="216.840.1.508351.10..22.4.2" /> <id nullFlavor="NA" /> <code codeSystem="local" code="WBC" displayName= "WHITE BLOOD CELL" /> <statusCode code="completed" /> < effectiveTime value="" /> <value unit="k/cumm" xsi:type="PQ " value="5.6" /> <referenceRange> <observationRange> <text>5.0-10.0</text> </observationRange> </ referenceRange> </observation> </component> <component> <observation moodCode="EVN" classCode="OBS"> <templateId root= "16.840.1.689699.10.2022.4.2" /> <id nullFlavor="NA" /> < code codeSystem="local" code="HGBT" displayName="HEMOGLOBIN" /> < statusCode code="completed" /> <effectiveTime value="" /> <value unit="gm/dL" xsi:type="PQ" value="9.1" /> < interpretationCode codeSystem="local" code="*" /> <referenceRange> <observationRange> <text>12.0-16.0</text> </ observationRange> </referenceRange> </observation> </ component> <component> <observation moodCode="EVN" classCode="OBS"> <templateId root="10.03.840.1.561244.10.4.2" /> <id nullFlavor="NA" /> <code codeSystem="local" code="HCTT" displayName= "HEMATOCRIT" /> <statusCode code="completed" /> < effectiveTime value="" /> <value unit="%" xsi:type="PQ " value="29.7" /> <interpretationCode codeSystem="local" code="*" /> <referenceRange> <observationRange> <text>37.0- 47.0</text> </observationRange> </referenceRange> </ observation> </component> <component> <observation moodCode= "EVN" classCode="OBS"> <templateId root="10.03.840.1.832880.10.2022.4.2 " /> <id nullFlavor="NA" /> <code codeSystem="local" code="PLT " displayName="PLATELET COUNT" /> <statusCode code="completed" /> <effectiveTime value="" /> <value unit="k/cumm" xsi: type="PQ" value="389" /> <referenceRange> <observationRange > <text>150-400</text> </observationRange> </ referenceRange> </observation> </component> </organizer> </entry > <entry> <organizer moodCode="EVN" classCode="BATTERY"> <templateId root="216.840.1.118588.10..22.4.1" /> <id nullFlavor="NA" /> <code codeSystem="local" code="iCHEM8" displayName="CHEM/HEM PROFILE-BEDSIDE" /> <statusCode code="completed" /> <component> <observation moodCode= "EVN" classCode="OBS"> <templateId root="216.840.1.932554.10...4.2 " /> <id nullFlavor="NA" /> <code codeSystem="local" code="K" displayName="POTASSIUM" /> <statusCode code="completed" /> < effectiveTime value="" /> <value unit="mmol/L" xsi:type="PQ " value="4.0" /> <referenceRange> <observationRange> <text>3.5-5.3</text> </observationRange> </ referenceRange> </observation> </component> <component> <observation moodCode="EVN" classCode="OBS"> <templateId root= "16.840.1.963216.10...4.2" /> <id nullFlavor="NA" /> < code codeSystem="local" code="CMETHOD" displayName="METHOD" /> < statusCode code="completed" /> <effectiveTime value="" /> <value unit="" xsi:type="PQ" value="Bedside" /> < referenceRange> <observationRange> <text /> < /observationRange> </referenceRange> </observation> </ component> <component> <observation moodCode="EVN" classCode="OBS"> <templateId root="216.840.1.893512.10.22.4.2" /> <id nullFlavor="NA" /> <code codeSystem="local" code="GAP" displayName= "ANION GAP" /> <statusCode code="completed" /> <effectiveTime value="" /> <value unit="mmol/L" xsi:type="PQ" value="15" / > <referenceRange> <observationRange> <text>10- 20</text> </observationRange> </referenceRange> </ observation> </component> <component> <observation moodCode= "EVN" classCode="OBS"> <templateId root="16.840.1.196222.10.4.2 " /> <id nullFlavor="NA" /> <code codeSystem="local" code= "HMETHOD" displayName="METHOD" /> <statusCode code="completed" /> <effectiveTime value="" /> <value unit="" xsi:type="PQ " value="Bedside" /> <referenceRange> <observationRange> <text /> </observationRange> </referenceRange> </observation> </component> <component> <observation moodCode="EVN" classCode="OBS"> <templateId root= "16.840.1.503288.1022.4.2" /> <id nullFlavor="NA" /> < code codeSystem="local" code="GLU" displayName="GLUCOSE" /> < statusCode code="completed" /> <effectiveTime value="444823106714" /> <value unit="mg/dL" xsi:type="PQ" value="158" /> < interpretationCode codeSystem="local" code="*" /> <referenceRange> <observationRange> <text>70-99</text> </ observationRange> </referenceRange> </observation> </ component> <component> <observation moodCode="EVN" classCode="OBS"> <templateId root="216.840.1.282149.22.4.2" /> <id nullFlavor="NA" /> <code codeSystem="local" code="BUN" displayName= "BLOOD UREA NITROGEN" /> <statusCode code="completed" /> < effectiveTime value="" /> <value unit="mg/dL" xsi:type="PQ " value="27" /> <interpretationCode codeSystem="local" code="*" /> <referenceRange> <observationRange> <text>7-20</ text> </observationRange> </referenceRange> </ observation> </component> <component> <observation moodCode= "EVN" classCode="OBS"> <templateId root="216.840.1.052947.06.06.22.4.2 " /> <id nullFlavor="NA" /> <code codeSystem="local" code= "CREAT" displayName="CREATININE" /> <statusCode code="completed" /> <effectiveTime value="" /> <value unit="mg/dL" xsi: type="PQ" value="1.4" /> <interpretationCode codeSystem="local" code="* " /> <referenceRange> <observationRange> <text> 0.6-1.0</text> </observationRange> </referenceRange> </observation> </component> <component> <observation moodCode= "EVN" classCode="OBS"> <templateId root="10.03.840.1.273314.10.20.22.4.2 " /> <id nullFlavor="NA" /> <code codeSystem="local" code= "HGBT" displayName="HEMOGLOBIN" /> <statusCode code="completed" /> <effectiveTime value="" /> <value unit="gm/dL" xsi: type="PQ" value="10.2" /> <interpretationCode codeSystem="local" code= "*" /> <referenceRange> <observationRange> < text>12.0-16.0</text> </observationRange> </referenceRange> </observation> </component> <component> <observation moodCode="EVN" classCode="OBS"> <templateId root= "10.03.840.1.830708.1022.4.2" /> <id nullFlavor="NA" /> < code codeSystem="local" code="HCTT" displayName="HEMATOCRIT" /> < statusCode code="completed" /> <effectiveTime value="" /> <value unit="%" xsi:type="PQ" value="30.0" /> < interpretationCode codeSystem="local" code="*" /> <referenceRange> <observationRange> <text>37.0-47.0</text> </ observationRange> </referenceRange> </observation> </ component> <component> <observation moodCode="EVN" classCode="OBS"> <templateId root="10.03.840.1.244029.10.20.22.4.2" /> <id nullFlavor="NA" /> <code codeSystem="local" code="NA" displayName= "SODIUM" /> <statusCode code="completed" /> <effectiveTime value="699863693308" /> <value unit="mmol/L" xsi:type="PQ" value="131" /> <interpretationCode codeSystem="local" code="*" /> < referenceRange> <observationRange> <text>135-148</text> </observationRange> </referenceRange> </observation > </component> <component> <observation moodCode="EVN" classCode="OBS"> <templateId root="216.840.1.286851.10.20.22.4.2" /> <id nullFlavor="NA" /> <code codeSystem="local" code="CL" displayName="CHLORIDE" /> <statusCode code="completed" /> < effectiveTime value="" /> <value unit="mmol/L" xsi:type="PQ " value="97" /> <interpretationCode codeSystem="local" code="*" /> <referenceRange> <observationRange> <text>98-110</ text> </observationRange> </referenceRange> </ observation> </component> <component> <observation moodCode= "EVN" classCode="OBS"> <templateId root="10.03.840.1.426776.10..4.2 " /> <id nullFlavor="NA" /> <code codeSystem="local" code="CO2 " displayName="CARBON DIOXIDE" /> <statusCode code="completed" /> <effectiveTime value="" /> <value unit="mmol/L" xsi: type="PQ" value="24" /> <referenceRange> <observationRange> <text>21-32</text> </observationRange> </ referenceRange> </observation> </component> <component> <observation moodCode="EVN" classCode="OBS"> <templateId root= "10.03.840.1.691435.10.20.22.4.2" /> <id nullFlavor="NA" /> < code codeSystem="local" code="CAION" displayName="CALCIUM IONIZED" /> < statusCode code="completed" /> <effectiveTime value="" /> <value unit="mg/dL" xsi:type="PQ" value="4.8" /> < referenceRange> <observationRange> <text>4.5-5.3</text> </observationRange> </referenceRange> </observation > </component> </organizer> </entry> <entry> <organizer moodCode= "EVN" classCode="BATTERY"> <templateId root="216.840.1.960817.10..22.4.1 " /> <id nullFlavor="NA" /> <code codeSystem="local" code="iTROPI" displayName="TROPONIN I BEDSIDE" /> <statusCode code="completed" /> < component> <observation moodCode="EVN" classCode="OBS"> < templateId root="216.840.1.926273.10..22.4.2" /> <id nullFlavor="NA " /> <code codeSystem="local" code="CMETHOD" displayName="METHOD" /> <statusCode code="completed" /> <effectiveTime value= "" /> <value unit="" xsi:type="PQ" value="Bedside" /> <referenceRange> <observationRange> <text /> </observationRange> </referenceRange> </observation> </component> <component> <observation moodCode="EVN" classCode="OBS "> <templateId root="216.840.1.587822.10..22.4.2" /> <id nullFlavor="NA" /> <code codeSystem="local" code="TROPI" displayName= "TROPONIN I" /> <statusCode code="completed" /> < effectiveTime value="" /> <value unit="ng/mL" xsi:type="PQ " value="< 0.04" /> <referenceRange> <observationRange> <text>< 0.11</text> </observationRange> </ referenceRange> </observation> </component> </organizer> </entry > <entry> <organizer moodCode="EVN" classCode="BATTERY"> <templateId root="10.03.840.1.541398.10..22.4.1" /> <id nullFlavor="NA" /> <code codeSystem="local" code="DIMER" displayName="D-DIMER QUANT" /> <statusCode code="completed" /> <component> <observation moodCode="EVN" classCode="OBS"> <templateId root="10.03.840.1.356099.10...4.2" /> <id nullFlavor="NA" /> <code codeSystem="local" code="DIMER" displayName="D-DIMER QUANT" /> <statusCode code="completed" /> <effectiveTime value="401012213710" /> <value unit="ng/mL" xsi:type= "PQ" value="664" /> <interpretationCode codeSystem="local" code="*" /> <referenceRange> <observationRange> <text>0- 229</text> </observationRange> </referenceRange> </ observation> </component> </organizer> </entry> <entry> <organizer moodCode="EVN" classCode="BATTERY"> <templateId root= "10.03.840.1.467531.10..22.4.1" /> <id nullFlavor="NA" /> <code codeSystem="local" code="iCHEM8" displayName="CHEM/HEM PROFILE-BEDSIDE" /> <statusCode code="completed" /> <component> <observation moodCode= "EVN" classCode="OBS"> <templateId root="840.1.060687.10..22.4.2 " /> <id nullFlavor="NA" /> <code codeSystem="local" code="K" displayName="POTASSIUM" /> <statusCode code="completed" /> < effectiveTime value="655427331329" /> <value unit="mmol/L" xsi:type="PQ " value="4.2" /> <referenceRange> <observationRange> <text>3.5-5.3</text> </observationRange> </ referenceRange> </observation> </component> <component> <observation moodCode="EVN" classCode="OBS"> <templateId root= "216.840.1.011806...22.4.2" /> <id nullFlavor="NA" /> < code codeSystem="local" code="CMETHOD" displayName="METHOD" /> < statusCode code="completed" /> <effectiveTime value="246888870955" /> <value unit="" xsi:type="PQ" value="Bedside" /> < referenceRange> <observationRange> <text /> < /observationRange> </referenceRange> </observation> </ component> <component> <observation moodCode="EVN" classCode="OBS"> <templateId root="216.840.1.312430...22.4.2" /> <id nullFlavor="NA" /> <code codeSystem="local" code="GAP" displayName= "ANION GAP" /> <statusCode code="completed" /> <effectiveTime value="995517251033" /> <value unit="mmol/L" xsi:type="PQ" value="15" / > <referenceRange> <observationRange> <text>10- 20</text> </observationRange> </referenceRange> </ observation> </component> <component> <observation moodCode= "EVN" classCode="OBS"> <templateId root="216.840.1.606327.10..22.4.2 " /> <id nullFlavor="NA" /> <code codeSystem="local" code= "HMETHOD" displayName="METHOD" /> <statusCode code="completed" /> <effectiveTime value="" /> <value unit="" xsi:type="PQ " value="Bedside" /> <referenceRange> <observationRange> <text /> </observationRange> </referenceRange> </observation> </component> <component> <observation moodCode="EVN" classCode="OBS"> <templateId root= "216.840.1.911251.10..4.2" /> <id nullFlavor="NA" /> < code codeSystem="local" code="GLU" displayName="GLUCOSE" /> < statusCode code="completed" /> <effectiveTime value="" /> <value unit="mg/dL" xsi:type="PQ" value="122" /> < interpretationCode codeSystem="local" code="*" /> <referenceRange> <observationRange> <text>70-99</text> </ observationRange> </referenceRange> </observation> </ component> <component> <observation moodCode="EVN" classCode="OBS"> <templateId root="16.840.1.591155.10..4.2" /> <id nullFlavor="NA" /> <code codeSystem="local" code="BUN" displayName= "BLOOD UREA NITROGEN" /> <statusCode code="completed" /> < effectiveTime value="066920934894" /> <value unit="mg/dL" xsi:type="PQ " value="15" /> <referenceRange> <observationRange> <text>7-20</text> </observationRange> </referenceRange > </observation> </component> <component> <observation moodCode="EVN" classCode="OBS"> <templateId root= "2.16.840.1.733680.10.4.2" /> <id nullFlavor="NA" /> < code codeSystem="local" code="CREAT" displayName="CREATININE" /> < statusCode code="completed" /> <effectiveTime value="" /> <value unit="mg/dL" xsi:type="PQ" value="0.9" /> < referenceRange> <observationRange> <text>0.6-1.0</text> </observationRange> </referenceRange> </observation > </component> <component> <observation moodCode="EVN" classCode="OBS"> <templateId root="216.840.1.340738.06.06.22.4.2" /> <id nullFlavor="NA" /> <code codeSystem="local" code="HGBT" displayName="HEMOGLOBIN" /> <statusCode code="completed" /> < effectiveTime value="" /> <value unit="gm/dL" xsi:type="PQ " value="9.2" /> <interpretationCode codeSystem="local" code="*" /> <referenceRange> <observationRange> <text>12.0- 16.0</text> </observationRange> </referenceRange> </ observation> </component> <component> <observation moodCode= "EVN" classCode="OBS"> <templateId root="216.840.1.271608.06.06.22.4.2 " /> <id nullFlavor="NA" /> <code codeSystem="local" code= "HCTT" displayName="HEMATOCRIT" /> <statusCode code="completed" /> <effectiveTime value="" /> <value unit="%" xsi: type="PQ" value="27.0" /> <interpretationCode codeSystem="local" code= "*" /> <referenceRange> <observationRange> < text>37.0-47.0</text> </observationRange> </referenceRange> </observation> </component> <component> <observation moodCode="EVN" classCode="OBS"> <templateId root= "10.03.840.1.082993.10.22.4.2" /> <id nullFlavor="NA" /> < code codeSystem="local" code="NA" displayName="SODIUM" /> <statusCode code="completed" /> <effectiveTime value="" /> < value unit="mmol/L" xsi:type="PQ" value="135" /> <referenceRange> <observationRange> <text>135-148</text> </ observationRange> </referenceRange> </observation> </ component> <component> <observation moodCode="EVN" classCode="OBS"> <templateId root="10.03.840.1.391880..22.4.2" /> <id nullFlavor="NA" /> <code codeSystem="local" code="CL" displayName= "CHLORIDE" /> <statusCode code="completed" /> <effectiveTime value="" /> <value unit="mmol/L" xsi:type="PQ" value="100" /> <referenceRange> <observationRange> <text>98 -110</text> </observationRange> </referenceRange> </ observation> </component> <component> <observation moodCode= "EVN" classCode="OBS"> <templateId root="10.03.840.1.329068.10.2022.4.2 " /> <id nullFlavor="NA" /> <code codeSystem="local" code="CO2 " displayName="CARBON DIOXIDE" /> <statusCode code="completed" /> <effectiveTime value="003845024147" /> <value unit="mmol/L" xsi: type="PQ" value="24" /> <referenceRange> <observationRange> <text>21-32</text> </observationRange> </ referenceRange> </observation> </component> <component> <observation moodCode="EVN" classCode="OBS"> <templateId root= "16.840.1.896329.10..4.2" /> <id nullFlavor="NA" /> < code codeSystem="local" code="CAION" displayName="CALCIUM IONIZED" /> < statusCode code="completed" /> <effectiveTime value="860766471540" /> <value unit="mg/dL" xsi:type="PQ" value="4.8" /> < referenceRange> <observationRange> <text>4.5-5.3</text> </observationRange> </referenceRange> </observation > </component> </organizer> </entry> <entry> <organizer moodCode= "EVN" classCode="BATTERY"> <templateId root="10.03.840.1.845093.06.06.22.4.1 " /> <id nullFlavor="NA" /> <code codeSystem="local" code="iTROPI" displayName="TROPONIN I BEDSIDE" /> <statusCode code="completed" /> < component> <observation moodCode="EVN" classCode="OBS"> < templateId root="10.03.840.1.783569.06.06.22.4.2" /> <id nullFlavor="NA " /> <code codeSystem="local" code="CMETHOD" displayName="METHOD" /> <statusCode code="completed" /> <effectiveTime value= "563466818865" /> <value unit="" xsi:type="PQ" value="Bedside" /> <referenceRange> <observationRange> <text /> </observationRange> </referenceRange> </observation> </component> <component> <observation moodCode="EVN" classCode="OBS "> <templateId root="16.840.1.497598.06.06.22.4.2" /> <id nullFlavor="NA" /> <code codeSystem="local" code="TROPI" displayName= "TROPONIN I" /> <statusCode code="completed" /> < effectiveTime value="410911433823" /> <value unit="ng/mL" xsi:type="PQ " value="< 0.04" /> <referenceRange> <observationRange> <text>< 0.11</text> </observationRange> </ referenceRange> </observation> </component> </organizer> </entry > <entry> <organizer moodCode="EVN" classCode="BATTERY"> <templateId root="10.03.840.1.699764.06.06.22.4.1" /> <id nullFlavor="NA" /> <code codeSystem="local" code="UA" displayName="URINALYSIS, ROUTINE" /> < statusCode code="completed" /> <component> <observation moodCode= "EVN" classCode="OBS"> <templateId root="16.840.1.214825.10.4.2 " /> <id nullFlavor="NA" /> <code codeSystem="local" code= "LEUESU" displayName="UA LEUKOCYTE ESTERASE DIPSTICK" /> <statusCode code="completed" /> <effectiveTime value="152450928462" /> < value unit="" xsi:type="PQ" value="NEGATIVE" /> <referenceRange> <observationRange> <text>NEGATIVE</text> </ observationRange> </referenceRange> </observation> </ component> <component> <observation moodCode="EVN" classCode="OBS"> <templateId root="16.840.1.031322.10..4.2" /> <id nullFlavor="NA" /> <code codeSystem="local" code="NITRIU" displayName= "UA NITRITE DIPSTICK" /> <statusCode code="completed" /> < effectiveTime value="720445566448" /> <value unit="" xsi:type="PQ" value="NEGATIVE" /> <referenceRange> <observationRange> <text>NEGATIVE</text> </observationRange> </ referenceRange> </observation> </component> <component> <observation moodCode="EVN" classCode="OBS"> <templateId root= "10.03.840.1.032168.10.4.2" /> <id nullFlavor="NA" /> < code codeSystem="local" code="PROTEIU" displayName="UA PROTEIN DIPSTICK" /> <statusCode code="completed" /> <effectiveTime value= "994260797224" /> <value unit="" xsi:type="PQ" value="NEGATIVE" /> <referenceRange> <observationRange> <text>NEGATIVE </text> </observationRange> </referenceRange> </ observation> </component> <component> <observation moodCode= "EVN" classCode="OBS"> <templateId root="10.03.840.1.971421.10.4.2 " /> <id nullFlavor="NA" /> <code codeSystem="local" code= "DGLUU" displayName="UA GLUCOSE DIPSTICK" /> <statusCode code= "completed" /> <effectiveTime value="481867075441" /> <value unit="" xsi:type="PQ" value="NEGATIVE" /> <referenceRange> < observationRange> <text>NEGATIVE</text> </ observationRange> </referenceRange> </observation> </ component> <component> <observation moodCode="EVN" classCode="OBS"> <templateId root="216.840.1.099374.06.06.22.4.2" /> <id nullFlavor="NA" /> <code codeSystem="local" code="KETONU" displayName= "UA KETONE DIPSTICK" /> <statusCode code="completed" /> < effectiveTime value="960823950258" /> <value unit="" xsi:type="PQ" value="NEGATIVE" /> <referenceRange> <observationRange> <text>NEGATIVE</text> </observationRange> </ referenceRange> </observation> </component> <component> <observation moodCode="EVN" classCode="OBS"> <templateId root= "10.03.840.1.851479.06.06.22.4.2" /> <id nullFlavor="NA" /> < code codeSystem="local" code="UROBILU" displayName="UA UROBILINOGEN DIPSTICK" / > <statusCode code="completed" /> <effectiveTime value= "147373837558" /> <value unit="" xsi:type="PQ" value="NORMAL" /> <referenceRange> <observationRange> <text>NORMAL</ text> </observationRange> </referenceRange> </ observation> </component> <component> <observation moodCode= "EVN" classCode="OBS"> <templateId root="16.840.1.023053.06.06.22.4.2 " /> <id nullFlavor="NA" /> <code codeSystem="local" code= "BILU" displayName="UA BILIRUBIN DIPSTICK" /> <statusCode code= "completed" /> <effectiveTime value="" /> <value unit="" xsi:type="PQ" value="NEGATIVE" /> <referenceRange> < observationRange> <text>NEGATIVE</text> </ observationRange> </referenceRange> </observation> </ component> <component> <observation moodCode="EVN" classCode="OBS"> <templateId root="216.840.1.478073.10..4.2" /> <id nullFlavor="NA" /> <code codeSystem="local" code="ADAM" displayName="UA BLOOD DIPSTICK" /> <statusCode code="completed" /> < effectiveTime value="" /> <value unit="" xsi:type="PQ" value="NEGATIVE" /> <referenceRange> <observationRange> <text>NEGATIVE</text> </observationRange> </ referenceRange> </observation> </component> <component> <observation moodCode="EVN" classCode="OBS"> <templateId root= "216.840.1.775786.10...4.2" /> <id nullFlavor="NA" /> < code codeSystem="local" code="SPGRU" displayName="UA SPECIFIC GRAVITY" /> <statusCode code="completed" /> <effectiveTime value=" " /> <value unit="" xsi:type="PQ" value="1.010" /> < interpretationCode codeSystem="local" code="*" /> <referenceRange> <observationRange> <text>1.015-1.025</text> </ observationRange> </referenceRange> </observation> </ component> <component> <observation moodCode="EVN" classCode="OBS"> <templateId root="16.840.1.692057.06.06.22.4.2" /> <id nullFlavor="NA" /> <code codeSystem="local" code="INGRID" displayName="UR PH" /> <statusCode code="completed" /> <effectiveTime value= "394791158696" /> <value unit="" xsi:type="PQ" value="5.5" /> <referenceRange> <observationRange> <text>5.0-7.0</text > </observationRange> </referenceRange> </observation > </component> </organizer> </entry> <entry> <organizer moodCode= "EVN" classCode="BATTERY"> <templateId root="10.03.840.1.548450.06.06.22.4.1 " /> <id nullFlavor="NA" /> <code codeSystem="local" code="iCHEM8" displayName="CHEM/HEM PROFILE-BEDSIDE" /> <statusCode code="completed" /> <component> <observation moodCode="EVN" classCode="OBS"> < templateId root="10.03.840.1.986337.06.06.22.4.2" /> <id nullFlavor="NA " /> <code codeSystem="local" code="K" displayName="POTASSIUM" /> <statusCode code="completed" /> <effectiveTime value="955709236411 " /> <value unit="mmol/L" xsi:type="PQ" value="3.5" /> < referenceRange> <observationRange> <text>3.5-5.3</text> </observationRange> </referenceRange> </observation > </component> <component> <observation moodCode="EVN" classCode="OBS"> <templateId root="10.03.840.1.725847...4.2" /> <id nullFlavor="NA" /> <code codeSystem="local" code="CMETHOD " displayName="METHOD" /> <statusCode code="completed" /> < effectiveTime value="638922732291" /> <value unit="" xsi:type="PQ" value="Bedside" /> <referenceRange> <observationRange> <text /> </observationRange> </referenceRange> </observation> </component> <component> <observation moodCode="EVN" classCode="OBS"> <templateId root= "10.03.840.1.302156.22.4.2" /> <id nullFlavor="NA" /> < code codeSystem="local" code="GAP" displayName="ANION GAP" /> < statusCode code="completed" /> <effectiveTime value="515838620867" /> <value unit="mmol/L" xsi:type="PQ" value="19" /> < referenceRange> <observationRange> <text>10-20</text> </observationRange> </referenceRange> </observation> </component> <component> <observation moodCode="EVN" classCode= "OBS"> <templateId root="840.1.753473.22.4.2" /> < id nullFlavor="NA" /> <code codeSystem="local" code="HMETHOD" displayName="METHOD" /> <statusCode code="completed" /> < effectiveTime value="009781863367" /> <value unit="" xsi:type="PQ" value="Bedside" /> <referenceRange> <observationRange> <text /> </observationRange> </referenceRange> </observation> </component> <component> <observation moodCode="EVN" classCode="OBS"> <templateId root= "10.03.840.1.873457.22.4.2" /> <id nullFlavor="NA" /> < code codeSystem="local" code="GLU" displayName="GLUCOSE" /> < statusCode code="completed" /> <effectiveTime value="945417232792" /> <value unit="mg/dL" xsi:type="PQ" value="173" /> < interpretationCode codeSystem="local" code="*" /> <referenceRange> <observationRange> <text>70-99</text> </ observationRange> </referenceRange> </observation> </ component> <component> <observation moodCode="EVN" classCode="OBS"> <templateId root="2.16.840.1.205084.10..4.2" /> <id nullFlavor="NA" /> <code codeSystem="local" code="BUN" displayName= "BLOOD UREA NITROGEN" /> <statusCode code="completed" /> < effectiveTime value="971364281575" /> <value unit="mg/dL" xsi:type="PQ " value="26" /> <interpretationCode codeSystem="local" code="*" /> <referenceRange> <observationRange> <text>7-20</ text> </observationRange> </referenceRange> </ observation> </component> <component> <observation moodCode= "EVN" classCode="OBS"> <templateId root="2.16.840.1.563423.10.4.2 " /> <id nullFlavor="NA" /> <code codeSystem="local" code= "CREAT" displayName="CREATININE" /> <statusCode code="completed" /> <effectiveTime value="822974663568" /> <value unit="mg/dL" xsi: type="PQ" value="1.0" /> <referenceRange> <observationRange > <text>0.6-1.0</text> </observationRange> </ referenceRange> </observation> </component> <component> <observation moodCode="EVN" classCode="OBS"> <templateId root= "216.840.1.193602.10..4.2" /> <id nullFlavor="NA" /> < code codeSystem="local" code="HGBT" displayName="HEMOGLOBIN" /> < statusCode code="completed" /> <effectiveTime value="154092207690" /> <value unit="gm/dL" xsi:type="PQ" value="11.9" /> < interpretationCode codeSystem="local" code="*" /> <referenceRange> <observationRange> <text>12.0-16.0</text> </ observationRange> </referenceRange> </observation> </ component> <component> <observation moodCode="EVN" classCode="OBS"> <templateId root="10.03.840.1.422629.06.06.22.4.2" /> <id nullFlavor="NA" /> <code codeSystem="local" code="HCTT" displayName= "HEMATOCRIT" /> <statusCode code="completed" /> < effectiveTime value="355049648668" /> <value unit="%" xsi:type="PQ " value="35.0" /> <interpretationCode codeSystem="local" code="*" /> <referenceRange> <observationRange> <text>37.0- 47.0</text> </observationRange> </referenceRange> </ observation> </component> <component> <observation moodCode= "EVN" classCode="OBS"> <templateId root="10.03.840.1.766326.10...4.2 " /> <id nullFlavor="NA" /> <code codeSystem="local" code="NA " displayName="SODIUM" /> <statusCode code="completed" /> < effectiveTime value="386006413053" /> <value unit="mmol/L" xsi:type="PQ " value="136" /> <referenceRange> <observationRange> <text>135-148</text> </observationRange> </ referenceRange> </observation> </component> <component> <observation moodCode="EVN" classCode="OBS"> <templateId root= "216.840.1.972788.10...4.2" /> <id nullFlavor="NA" /> < code codeSystem="local" code="CL" displayName="CHLORIDE" /> < statusCode code="completed" /> <effectiveTime value="366433806527" /> <value unit="mmol/L" xsi:type="PQ" value="103" /> < referenceRange> <observationRange> <text>98-110</text> </observationRange> </referenceRange> </observation> </component> <component> <observation moodCode="EVN" classCode ="OBS"> <templateId root="16.840.1.798810.10...4.2" /> < id nullFlavor="NA" /> <code codeSystem="local" code="CO2" displayName= "CARBON DIOXIDE" /> <statusCode code="completed" /> < effectiveTime value="869998807429" /> <value unit="mmol/L" xsi:type="PQ " value="19" /> <interpretationCode codeSystem="local" code="*" /> <referenceRange> <observationRange> <text>21-32</ text> </observationRange> </referenceRange> </ observation> </component> <component> <observation moodCode= "EVN" classCode="OBS"> <templateId root="216.840.1.919968..4.2 " /> <id nullFlavor="NA" /> <code codeSystem="local" code= "CAION" displayName="CALCIUM IONIZED" /> <statusCode code="completed" / > <effectiveTime value="342190018944" /> <value unit="mg/dL" xsi:type="PQ" value="4.7" /> <referenceRange> < observationRange> <text>4.5-5.3</text> </ observationRange> </referenceRange> </observation> </ component> </organizer> </entry> <entry> <organizer moodCode="EVN" classCode="BATTERY"> <templateId root="216.840.1.007666.06.06.22.4.1" /> <id nullFlavor="NA" /> <code codeSystem="local" code="iTROPI" displayName="TROPONIN I BEDSIDE" /> <statusCode code="completed" /> < component> <observation moodCode="EVN" classCode="OBS"> < templateId root="216.840.1.072915.06.06.22.4.2" /> <id nullFlavor="NA " /> <code codeSystem="local" code="CMETHOD" displayName="METHOD" /> <statusCode code="completed" /> <effectiveTime value= "379269943524" /> <value unit="" xsi:type="PQ" value="Bedside" /> <referenceRange> <observationRange> <text /> </observationRange> </referenceRange> </observation> </component> <component> <observation moodCode="EVN" classCode="OBS "> <templateId root="216.840.1.569614.06.06.22.4.2" /> <id nullFlavor="NA" /> <code codeSystem="local" code="TROPI" displayName= "TROPONIN I" /> <statusCode code="completed" /> < effectiveTime value="715888839744" /> <value unit="ng/mL" xsi:type="PQ " value="< 0.04" /> <referenceRange> <observationRange> <text>< 0.11</text> </observationRange> </ referenceRange> </observation> </component> </organizer> </entry > <entry> <organizer moodCode="EVN" classCode="BATTERY"> <templateId root="216.840.1.285461.10..22.4.1" /> <id nullFlavor="NA" /> <code codeSystem="local" code="LIVER" displayName="HEPATIC FUNCTION PANEL" /> < statusCode code="completed" /> <component> <observation moodCode= "EVN" classCode="OBS"> <templateId root="216.840.1.192368.10...4.2 " /> <id nullFlavor="NA" /> <code codeSystem="local" code= "BILUC" displayName="BILI UNCONJUGATED" /> <statusCode code="completed " /> <effectiveTime value="319333628445" /> <value unit="mg/dL " xsi:type="PQ" value="0.2" /> <referenceRange> < observationRange> <text>0.0-0.7</text> </ observationRange> </referenceRange> </observation> </ component> <component> <observation moodCode="EVN" classCode="OBS"> <templateId root="216.840.1.950847.10...4.2" /> <id nullFlavor="NA" /> <code codeSystem="local" code="AST" displayName="AST /SGOT" /> <statusCode code="completed" /> <effectiveTime value ="205799114497" /> <value unit="Units/L" xsi:type="PQ" value="13" /> <referenceRange> <observationRange> <text>10-37< /text> </observationRange> </referenceRange> </ observation> </component> <component> <observation moodCode= "EVN" classCode="OBS"> <templateId root="10.03.840.1.118262.10.20.22.4.2 " /> <id nullFlavor="NA" /> <code codeSystem="local" code="ALT " displayName="ALT/SGPT" /> <statusCode code="completed" /> < effectiveTime value="534839209889" /> <value unit="Units/L" xsi:type= "PQ" value="16" /> <referenceRange> <observationRange> <text>< 66</text> </observationRange> </ referenceRange> </observation> </component> <component> <observation moodCode="EVN" classCode="OBS"> <templateId root= "840.1.791262.10..22.4.2" /> <id nullFlavor="NA" /> < code codeSystem="local" code="TP" displayName="TOTAL PROTEIN" /> < statusCode code="completed" /> <effectiveTime value="775129773999" /> <value unit="gm/dL" xsi:type="PQ" value="8.6" /> < interpretationCode codeSystem="local" code="*" /> <referenceRange> <observationRange> <text>6.4-8.2</text> </ observationRange> </referenceRange> </observation> </ component> <component> <observation moodCode="EVN" classCode="OBS"> <templateId root="10.03.840.1.666434.10.20.22.4.2" /> <id nullFlavor="NA" /> <code codeSystem="local" code="ALB" displayName= "ALBUMIN" /> <statusCode code="completed" /> <effectiveTime value="" /> <value unit="gm/dL" xsi:type="PQ" value="3.2" / > <interpretationCode codeSystem="local" code="*" /> < referenceRange> <observationRange> <text>3.4-5.0</text> </observationRange> </referenceRange> </observation > </component> <component> <observation moodCode="EVN" classCode="OBS"> <templateId root="2.16.840.1.456253.10..22.4.2" /> <id nullFlavor="NA" /> <code codeSystem="local" code="BILTOT" displayName="BILI TOTAL" /> <statusCode code="completed" /> < effectiveTime value="" /> <value unit="mg/dL" xsi:type="PQ " value="0.3" /> <referenceRange> <observationRange> <text>0.0-1.0</text> </observationRange> </ referenceRange> </observation> </component> <component> <observation moodCode="EVN" classCode="OBS"> <templateId root= "2.16.840.1.060888.10...4.2" /> <id nullFlavor="NA" /> < code codeSystem="local" code="ALKP" displayName="ALKALINE PHOSPHATASE TOTAL" /> <statusCode code="completed" /> <effectiveTime value= "" /> <value unit="IU/L" xsi:type="PQ" value="114" /> <referenceRange> <observationRange> <text>45-117</ text> </observationRange> </referenceRange> </ observation> </component> <component> <observation moodCode= "EVN" classCode="OBS"> <templateId root="2.16.840.1.752762.10.20.22.4.2 " /> <id nullFlavor="NA" /> <code codeSystem="local" code= "BILC" displayName="BILI CONJUGATED" /> <statusCode code="completed" / > <effectiveTime value="944425559830" /> <value unit="mg/dL" xsi:type="PQ" value="< 0.1" /> <referenceRange> < observationRange> <text>0.0-0.3</text> </ observationRange> </referenceRange> </observation> </ component> </organizer> </entry> <entry> <organizer moodCode="EVN" classCode="BATTERY"> <templateId root="2.16.840.1.260911.10.20.22.4.1" /> <id nullFlavor="NA" /> <code codeSystem="local" code="LIP" displayName ="LIPASE" /> <statusCode code="completed" /> <component> < observation moodCode="EVN" classCode="OBS"> <templateId root= "2.16.840.1.089598.10.20.22.4.2" /> <id nullFlavor="NA" /> < code codeSystem="local" code="LIP" displayName="LIPASE" /> <statusCode code="completed" /> <effectiveTime value="822753796828" /> < value unit="Units/L" xsi:type="PQ" value="69" /> <interpretationCode codeSystem="local" code="*" /> <referenceRange> < observationRange> <text>73-393</text> </observationRange > </referenceRange> </observation> </component> </ organizer> </entry> <entry> <organizer moodCode="EVN" classCode="BATTERY"> <templateId root="840.1.531621.06.06.22.4.1" /> <id nullFlavor= "NA" /> <code codeSystem="local" code="DIMER" displayName="D-DIMER QUANT" / > <statusCode code="completed" /> <component> <observation moodCode="EVN" classCode="OBS"> <templateId root= "840.1.118482.06.06.22.4.2" /> <id nullFlavor="NA" /> < code codeSystem="local" code="DIMER" displayName="D-DIMER QUANT" /> < statusCode code="completed" /> <effectiveTime value="918733692531" /> <value unit="ng/mL" xsi:type="PQ" value="456" /> < interpretationCode codeSystem="local" code="*" /> <referenceRange> <observationRange> <text>0-229</text> </ observationRange> </referenceRange> </observation> </ component> </organizer> </entry> <entry> <organizer moodCode="EVN" classCode="BATTERY"> <templateId root="840.1.362645.06.06.22.4.1" /> <id nullFlavor="NA" /> <code codeSystem="local" code="CBCD" displayName="CBC W/DIFF" /> <statusCode code="completed" /> <component > <observation moodCode="EVN" classCode="OBS"> <templateId root= "840.1.725280.06.06.22.4.2" /> <id nullFlavor="NA" /> < code codeSystem="local" code="GR#" displayName="GRANULOCYTE #" /> < statusCode code="completed" /> <effectiveTime value="459839746511" /> <value unit="k/cumm" xsi:type="PQ" value="10.3" /> < interpretationCode codeSystem="local" code="*" /> <referenceRange> <observationRange> <text>2.0-9.0</text> </ observationRange> </referenceRange> </observation> </ component> <component> <observation moodCode="EVN" classCode="OBS"> <templateId root="16.840.1.136914.102022.4.2" /> <id nullFlavor="NA" /> <code codeSystem="local" code="GR%" displayName= "GRANULOCYTE %" /> <statusCode code="completed" /> < effectiveTime value="682755179617" /> <value unit="%" xsi:type="PQ " value="86" /> <interpretationCode codeSystem="local" code="*" /> <referenceRange> <observationRange> <text>50-75</ text> </observationRange> </referenceRange> </ observation> </component> <component> <observation moodCode= "EVN" classCode="OBS"> <templateId root="16.840.1.476066.102022.4.2 " /> <id nullFlavor="NA" /> <code codeSystem="local" code="LY# " displayName="LYMPHOCYTE #" /> <statusCode code="completed" /> <effectiveTime value="271356011210" /> <value unit="k/cumm" xsi:type ="PQ" value="0.7" /> <interpretationCode codeSystem="local" code="*" / > <referenceRange> <observationRange> <text>1.0 -4.0</text> </observationRange> </referenceRange> </ observation> </component> <component> <observation moodCode= "EVN" classCode="OBS"> <templateId root="16.840.1.054072.10.20.22.4.2 " /> <id nullFlavor="NA" /> <code codeSystem="local" code="LY& #37;" displayName="LYMPHOCYTE %" /> <statusCode code="completed" / > <effectiveTime value="670212318565" /> <value unit="%" xsi:type="PQ" value="6" /> <interpretationCode codeSystem="local" code= "*" /> <referenceRange> <observationRange> < text>20-30</text> </observationRange> </referenceRange> </observation> </component> <component> <observation moodCode="EVN" classCode="OBS"> <templateId root= "10.03.840.1.443960.10..4.2" /> <id nullFlavor="NA" /> < code codeSystem="local" code="MCH" displayName="MEAN CELL HGB" /> < statusCode code="completed" /> <effectiveTime value="115561404732" /> <value unit="pg" xsi:type="PQ" value="21.8" /> < interpretationCode codeSystem="local" code="*" /> <referenceRange> <observationRange> <text>27.0-33.0</text> </ observationRange> </referenceRange> </observation> </ component> <component> <observation moodCode="EVN" classCode="OBS"> <templateId root="10.03.840.1.918127.10.2022.4.2" /> <id nullFlavor="NA" /> <code codeSystem="local" code="MCHC" displayName= "MEAN CELL HGB CONCENTRATION" /> <statusCode code="completed" /> <effectiveTime value="" /> <value unit="g/dL" xsi:type= "PQ" value="31.6" /> <interpretationCode codeSystem="local" code="*" / > <referenceRange> <observationRange> <text> 32.0-37.0</text> </observationRange> </referenceRange> </observation> </component> <component> <observation moodCode="EVN" classCode="OBS"> <templateId root= "10.03.840.1.032601.22.4.2" /> <id nullFlavor="NA" /> < code codeSystem="local" code="MCV" displayName="MEAN CELL VOLUME" /> < statusCode code="completed" /> <effectiveTime value="175836630428" /> <value unit="fl" xsi:type="PQ" value="68.9" /> < interpretationCode codeSystem="local" code="*" /> <referenceRange> <observationRange> <text>80.0-100.0</text> </ observationRange> </referenceRange> </observation> </ component> <component> <observation moodCode="EVN" classCode="OBS"> <templateId root="10.03.840.1.692804.06.06.22.4.2" /> <id nullFlavor="NA" /> <code codeSystem="local" code="MO#" displayName= "MONOCYTE #" /> <statusCode code="completed" /> < effectiveTime value="720235524187" /> <value unit="k/cumm" xsi:type="PQ " value="0.9" /> <referenceRange> <observationRange> <text>0.1-1.0</text> </observationRange> </ referenceRange> </observation> </component> <component> <observation moodCode="EVN" classCode="OBS"> <templateId root= "10.03.840.1.881588.06.06.22.4.2" /> <id nullFlavor="NA" /> < code codeSystem="local" code="MO%" displayName="MONOCYTE %" /> <statusCode code="completed" /> <effectiveTime value="560473360528" /> <value unit="%" xsi:type="PQ" value="8" /> < interpretationCode codeSystem="local" code="*" /> <referenceRange> <observationRange> <text>4-6</text> </ observationRange> </referenceRange> </observation> </ component> <component> <observation moodCode="EVN" classCode="OBS"> <templateId root="216.840.1.703000.06.06.22.4.2" /> <id nullFlavor="NA" /> <code codeSystem="local" code="RBC" displayName=" RED BLOOD CELL" /> <statusCode code="completed" /> < effectiveTime value="961291243582" /> <value unit="m/cumm" xsi:type="PQ " value="4.54" /> <referenceRange> <observationRange> <text>4.00-6.00</text> </observationRange> </ referenceRange> </observation> </component> <component> <observation moodCode="EVN" classCode="OBS"> <templateId root= "216.840.1.670321.06.06.22.4.2" /> <id nullFlavor="NA" /> < code codeSystem="local" code="RDW" displayName="RED CELL DISTRIBUTION WIDTH" /> <statusCode code="completed" /> <effectiveTime value= "796677186594" /> <value unit="%" xsi:type="PQ" value="21.1" /> <interpretationCode codeSystem="local" code="*" /> < referenceRange> <observationRange> <text>11.0-15.6</text > </observationRange> </referenceRange> </observation > </component> <component> <observation moodCode="EVN" classCode="OBS"> <templateId root="10.03.840.1.047890.10.20.22.4.2" /> <id nullFlavor="NA" /> <code codeSystem="local" code="WBC" displayName="WHITE BLOOD CELL" /> <statusCode code="completed" /> <effectiveTime value="443341237622" /> <value unit="k/cumm" xsi: type="PQ" value="12.0" /> <interpretationCode codeSystem="local" code= "*" /> <referenceRange> <observationRange> < text>5.0-10.0</text> </observationRange> </referenceRange> </observation> </component> <component> <observation moodCode="EVN" classCode="OBS"> <templateId root= "10.03.840.1.015287.10..22.4.2" /> <id nullFlavor="NA" /> < code codeSystem="local" code="HGBT" displayName="HEMOGLOBIN" /> < statusCode code="completed" /> <effectiveTime value="837176731016" /> <value unit="gm/dL" xsi:type="PQ" value="9.9" /> < interpretationCode codeSystem="local" code="*" /> <referenceRange> <observationRange> <text>12.0-16.0</text> </ observationRange> </referenceRange> </observation> </ component> <component> <observation moodCode="EVN" classCode="OBS"> <templateId root="10.03.840.1.855591.10.20.22.4.2" /> <id nullFlavor="NA" /> <code codeSystem="local" code="HCTT" displayName= "HEMATOCRIT" /> <statusCode code="completed" /> < effectiveTime value="519656820467" /> <value unit="%" xsi:type="PQ " value="31.3" /> <interpretationCode codeSystem="local" code="*" /> <referenceRange> <observationRange> <text>37.0- 47.0</text> </observationRange> </referenceRange> </ observation> </component> <component> <observation moodCode= "EVN" classCode="OBS"> <templateId root="840.1.228715.06.06.224.2 " /> <id nullFlavor="NA" /> <code codeSystem="local" code="PLT " displayName="PLATELET COUNT" /> <statusCode code="completed" /> <effectiveTime value="" /> <value unit="k/cumm" xsi: type="PQ" value="331" /> <referenceRange> <observationRange > <text>150-400</text> </observationRange> </ referenceRange> </observation> </component> </organizer> </entry > <entry> <organizer moodCode="EVN" classCode="BATTERY"> <templateId root="840.1.419061.06.06.22.4.1" /> <id nullFlavor="NA" /> <code codeSystem="local" code="MORPH" displayName="MORPHOLOGY" /> <statusCode code="completed" /> <component> <observation moodCode="EVN" classCode="OBS"> <templateId root="840.1.943260.22.4.2" /> <id nullFlavor="NA" /> <code codeSystem="local" code="RMORPH" displayName="RBC MORPH" /> <statusCode code="completed" /> < effectiveTime value="364529802915" /> <value unit="" xsi:type="PQ" value="NOTED" /> <referenceRange> <observationRange> <text /> </observationRange> </referenceRange> </observation> </component> </organizer> </entry> <entry> < organizer moodCode="EVN" classCode="BATTERY"> <templateId root= "10.03.840.1.265859.10.4.1" /> <id nullFlavor="NA" /> <code codeSystem="local" code="LACT" displayName="LACTIC ACID" /> <statusCode code="completed" /> <component> <observation moodCode="EVN" classCode="OBS"> <templateId root="10.03.840.1.013541....4.2" /> <id nullFlavor="NA" /> <code codeSystem="local" code="LACT" displayName="LACTIC ACID" /> <statusCode code="completed" /> < effectiveTime value="431194484428" /> <value unit="mmol/L" xsi:type="PQ " value="1.0" /> <referenceRange> <observationRange> <text>0.5-2.0</text> </observationRange> </ referenceRange> </observation> </component> </organizer> </entry > <entry> <organizer moodCode="EVN" classCode="BATTERY"> <templateId root="10.03.840.1.161333.10..4.1" /> <id nullFlavor="NA" /> <code codeSystem="local" code="BC" displayName="BLOOD CULTURE" /> <statusCode code="completed" /> <component> <observation moodCode="EVN" classCode="OBS"> <templateId root="10.03.840.1.362643.10.20.22.4.2" /> <id nullFlavor="NA" /> <code codeSystem="local" code="MB" displayName="Microbiology" /> <statusCode code="completed" /> <effectiveTime value="995024553155" /> <value xsi:type="ST" value="<pre ><b>BLOOD CULTURE</b> See BelowIs this a Possible Sepsis/Sepsis patient? YesBLOOD CULTURE(F) Cosme Date/Time: 11/26/2016 06:40 Irvin Date/Time: 12/01/2016 17:00SOURCE: BLOODSPEC DESC: [id number] [facility] [facility] [place] [address]</pre>" /> <referenceRange> <observationRange> <text /> </observationRange> </referenceRange> </observation> </component> </organizer> </entry> <entry> < organizer moodCode="EVN" classCode="BATTERY"> <templateId root= "216.840.1.481455.10.20.22.4.1" /> <id nullFlavor="NA" /> <code codeSystem="local" code="UA" displayName="URINALYSIS, ROUTINE" /> < statusCode code="completed" /> <component> <observation moodCode= "EVN" classCode="OBS"> <templateId root="216.840.1.344358.10.20.22.4.2 " /> <id nullFlavor="NA" /> <code codeSystem="local" code= "LEUESU" displayName="UA LEUKOCYTE ESTERASE DIPSTICK" /> <statusCode code="completed" /> <effectiveTime value="435725669179" /> < value unit="" xsi:type="PQ" value="NEGATIVE" /> <referenceRange> <observationRange> <text>NEGATIVE</text> </ observationRange> </referenceRange> </observation> </ component> <component> <observation moodCode="EVN" classCode="OBS"> <templateId root="10.03.840.1.130964.10.4.2" /> <id nullFlavor="NA" /> <code codeSystem="local" code="NITRIU" displayName= "UA NITRITE DIPSTICK" /> <statusCode code="completed" /> < effectiveTime value="" /> <value unit="" xsi:type="PQ" value="NEGATIVE" /> <referenceRange> <observationRange> <text>NEGATIVE</text> </observationRange> </ referenceRange> </observation> </component> <component> <observation moodCode="EVN" classCode="OBS"> <templateId root= "16.840.1.828007.06.06.22.4.2" /> <id nullFlavor="NA" /> < code codeSystem="local" code="PROTEIU" displayName="UA PROTEIN DIPSTICK" /> <statusCode code="completed" /> <effectiveTime value= "" /> <value unit="" xsi:type="PQ" value="1+" /> < referenceRange> <observationRange> <text>NEGATIVE</text > </observationRange> </referenceRange> </observation > </component> <component> <observation moodCode="EVN" classCode="OBS"> <templateId root="10.03.840.1.327489.1022.4.2" /> <id nullFlavor="NA" /> <code codeSystem="local" code="DGLUU" displayName="UA GLUCOSE DIPSTICK" /> <statusCode code="completed" /> <effectiveTime value="" /> <value unit="" xsi:type= "PQ" value="NEGATIVE" /> <referenceRange> <observationRange > <text>NEGATIVE</text> </observationRange> </ referenceRange> </observation> </component> <component> <observation moodCode="EVN" classCode="OBS"> <templateId root= "16.840.1.350130.10.4.2" /> <id nullFlavor="NA" /> < code codeSystem="local" code="KETONU" displayName="UA KETONE DIPSTICK" /> <statusCode code="completed" /> <effectiveTime value=" " /> <value unit="" xsi:type="PQ" value="NEGATIVE" /> < referenceRange> <observationRange> <text>NEGATIVE</text > </observationRange> </referenceRange> </observation > </component> <component> <observation moodCode="EVN" classCode="OBS"> <templateId root="10.03.840.1.595409.06.06.22.4.2" /> <id nullFlavor="NA" /> <code codeSystem="local" code="UROBILU " displayName="UA UROBILINOGEN DIPSTICK" /> <statusCode code="completed " /> <effectiveTime value="" /> <value unit="" xsi :type="PQ" value="NORMAL" /> <referenceRange> < observationRange> <text>NORMAL</text> </observationRange > </referenceRange> </observation> </component> < component> <observation moodCode="EVN" classCode="OBS"> < templateId root="10.03.840.1.990369.06.06.22.4.2" /> <id nullFlavor="NA " /> <code codeSystem="local" code="BILU" displayName="UA BILIRUBIN DIPSTICK" /> <statusCode code="completed" /> <effectiveTime value="" /> <value unit="" xsi:type="PQ" value="NEGATIVE" / > <referenceRange> <observationRange> <text> NEGATIVE</text> </observationRange> </referenceRange> </observation> </component> <component> <observation moodCode ="EVN" classCode="OBS"> <templateId root= "10.03.840.1.188085.10.22.4.2" /> <id nullFlavor="NA" /> < code codeSystem="local" code="ADAM" displayName="UA BLOOD DIPSTICK" /> < statusCode code="completed" /> <effectiveTime value="882218057717" /> <value unit="" xsi:type="PQ" value="NEGATIVE" /> < referenceRange> <observationRange> <text>NEGATIVE</text > </observationRange> </referenceRange> </observation > </component> <component> <observation moodCode="EVN" classCode="OBS"> <templateId root="840.1.010467.06.06.22.4.2" /> <id nullFlavor="NA" /> <code codeSystem="local" code="SPGRU" displayName="UA SPECIFIC GRAVITY" /> <statusCode code="completed" /> <effectiveTime value="782585700246" /> <value unit="" xsi:type= "PQ" value="1.015" /> <referenceRange> <observationRange> <text>1.015-1.025</text> </observationRange> </ referenceRange> </observation> </component> <component> <observation moodCode="EVN" classCode="OBS"> <templateId root= "10.03.840.1.535731.102022.4.2" /> <id nullFlavor="NA" /> < code codeSystem="local" code="INGRID" displayName="UR PH" /> <statusCode code="completed" /> <effectiveTime value="948409911887" /> < value unit="" xsi:type="PQ" value="5.5" /> <referenceRange> <observationRange> <text>5.0-7.0</text> </ observationRange> </referenceRange> </observation> </ component> </organizer> </entry> <entry> <organizer moodCode="EVN" classCode="BATTERY"> <templateId root="16.840.1.637609.10.2022.4.1" /> <id nullFlavor="NA" /> <code codeSystem="local" code="UAMICRO" displayName="UA MICROSCOPIC" /> <statusCode code="completed" /> < component> <observation moodCode="EVN" classCode="OBS"> < templateId root="10.03.840.1.149806.22.4.2" /> <id nullFlavor="NA " /> <code codeSystem="local" code="BACU" displayName="UA BACTERIA" /> <statusCode code="completed" /> <effectiveTime value= "" /> <value unit="" xsi:type="PQ" value="2+" /> < referenceRange> <observationRange> <text>NEGATIVE</text > </observationRange> </referenceRange> </observation > </component> <component> <observation moodCode="EVN" classCode="OBS"> <templateId root="10.03.840.1.767695.1022.4.2" /> <id nullFlavor="NA" /> <code codeSystem="local" code="EPIU" displayName="UA EPITHELIAL CELLS" /> <statusCode code="completed" /> <effectiveTime value="" /> <value unit="epi/hpf" xsi:type="PQ" value="3+" /> <referenceRange> < observationRange> <text>0 - 1+</text> </observationRange > </referenceRange> </observation> </component> < component> <observation moodCode="EVN" classCode="OBS"> < templateId root="16.840.1.749741.10..22.4.2" /> <id nullFlavor="NA " /> <code codeSystem="local" code="HYALU" displayName="UA HYALINE CAST " /> <statusCode code="completed" /> <effectiveTime value= "" /> <value unit="cast/lpf" xsi:type="PQ" value="5-10" /> <referenceRange> <observationRange> <text>0 - 1</text> </observationRange> </referenceRange> </ observation> </component> <component> <observation moodCode= "EVN" classCode="OBS"> <templateId root="10.03.840.1.237029.10.4.2 " /> <id nullFlavor="NA" /> <code codeSystem="local" code= "RBCU" displayName="UA RBC" /> <statusCode code="completed" /> <effectiveTime value="" /> <value unit="rbc/hpf" xsi:type ="PQ" value="3-5" /> <referenceRange> <observationRange> <text>0 - 3</text> </observationRange> </ referenceRange> </observation> </component> <component> <observation moodCode="EVN" classCode="OBS"> <templateId root= "10.03.840.1.086744.102022.4.2" /> <id nullFlavor="NA" /> < code codeSystem="local" code="UAVOL" displayName="UA VOLUME FOR EXAM" /> <statusCode code="completed" /> <effectiveTime value="[id number]" /> <value unit="mL" xsi:type="PQ" value="12.0" /> < referenceRange> <observationRange> <text>(12mL STD)</ text> </observationRange> </referenceRange> </ observation> </component> <component> <observation moodCode= "EVN" classCode="OBS"> <templateId root="840.1.575854.06.06.22.4.2 " /> <id nullFlavor="NA" /> <code codeSystem="local" code= "WBCU" displayName="UA WBC" /> <statusCode code="completed" /> <effectiveTime value="" /> <value unit="wbc/hpf" xsi:type ="PQ" value="2-5" /> <referenceRange> <observationRange> <text>0 - 5</text> </observationRange> </ referenceRange> </observation> </component> </organizer> </entry > <entry> <organizer moodCode="EVN" classCode="BATTERY"> <templateId root="10.03.840.1.873966.06.06.22.4.1" /> <id nullFlavor="NA" /> <code codeSystem="local" code="CBCD" displayName="CBC W/DIFF" /> <statusCode code ="completed" /> <component> <observation moodCode="EVN" classCode= "OBS"> <templateId root="840.1.937733.06.06.22.4.2" /> < id nullFlavor="NA" /> <code codeSystem="local" code="BA#" displayName= "BASOPHIL #" /> <statusCode code="completed" /> < effectiveTime value="074717517526" /> <value unit="k/cumm" xsi:type="PQ " value="0.0" /> <referenceRange> <observationRange> <text>0.0-0.2</text> </observationRange> </ referenceRange> </observation> </component> <component> <observation moodCode="EVN" classCode="OBS"> <templateId root= "216.840.1.436660.10..22.4.2" /> <id nullFlavor="NA" /> < code codeSystem="local" code="BA%" displayName="BASOPHIL %" /> <statusCode code="completed" /> <effectiveTime value="748686516632" /> <value unit="%" xsi:type="PQ" value="1" /> < referenceRange> <observationRange> <text>0-1</text> </observationRange> </referenceRange> </observation> </component> <component> <observation moodCode="EVN" classCode= "OBS"> <templateId root="10.03.840.1.041895.10...4.2" /> < id nullFlavor="NA" /> <code codeSystem="local" code="EO#" displayName= "EOSINOPHIL #" /> <statusCode code="completed" /> < effectiveTime value="941070207790" /> <value unit="k/cumm" xsi:type="PQ " value="0.1" /> <referenceRange> <observationRange> <text>0.1-0.5</text> </observationRange> </ referenceRange> </observation> </component> <component> <observation moodCode="EVN" classCode="OBS"> <templateId root= "10.03.840.1.338339.10.20.22.4.2" /> <id nullFlavor="NA" /> < code codeSystem="local" code="EO%" displayName="EOSINOPHIL %" /> <statusCode code="completed" /> <effectiveTime value="312251519502" /> <value unit="%" xsi:type="PQ" value="1" /> < interpretationCode codeSystem="local" code="*" /> <referenceRange> <observationRange> <text>2-4</text> </ observationRange> </referenceRange> </observation> </ component> <component> <observation moodCode="EVN" classCode="OBS"> <templateId root="2.16.840.1.767811.10.20.22.4.2" /> <id nullFlavor="NA" /> <code codeSystem="local" code="GR#" displayName= "GRANULOCYTE #" /> <statusCode code="completed" /> < effectiveTime value="268451832848" /> <value unit="k/cumm" xsi:type="PQ " value="4.7" /> <referenceRange> <observationRange> <text>2.0-9.0</text> </observationRange> </ referenceRange> </observation> </component> <component> <observation moodCode="EVN" classCode="OBS"> <templateId root= "2.16.840.1.238516.10.20.22.4.2" /> <id nullFlavor="NA" /> < code codeSystem="local" code="GR%" displayName="GRANULOCYTE %" /> <statusCode code="completed" /> <effectiveTime value="132600422542 " /> <value unit="%" xsi:type="PQ" value="69" /> < referenceRange> <observationRange> <text>50-75</text> </observationRange> </referenceRange> </observation> </component> <component> <observation moodCode="EVN" classCode= "OBS"> <templateId root="10.03.840.1.557705.10.2022.4.2" /> < id nullFlavor="NA" /> <code codeSystem="local" code="LY#" displayName= "LYMPHOCYTE #" /> <statusCode code="completed" /> < effectiveTime value="040083106325" /> <value unit="k/cumm" xsi:type="PQ " value="1.1" /> <referenceRange> <observationRange> <text>1.0-4.0</text> </observationRange> </ referenceRange> </observation> </component> <component> <observation moodCode="EVN" classCode="OBS"> <templateId root= "840.1.709540.1022.4.2" /> <id nullFlavor="NA" /> < code codeSystem="local" code="LY%" displayName="LYMPHOCYTE %" /> <statusCode code="completed" /> <effectiveTime value="987056726548" /> <value unit="%" xsi:type="PQ" value="16" /> < interpretationCode codeSystem="local" code="*" /> <referenceRange> <observationRange> <text>20-30</text> </ observationRange> </referenceRange> </observation> </ component> <component> <observation moodCode="EVN" classCode="OBS"> <templateId root="10.03.840.1.154843.10.2022.4.2" /> <id nullFlavor="NA" /> <code codeSystem="local" code="MCH" displayName= "MEAN CELL HGB" /> <statusCode code="completed" /> < effectiveTime value="127470432903" /> <value unit="pg" xsi:type="PQ" value="23.6" /> <interpretationCode codeSystem="local" code="*" /> <referenceRange> <observationRange> <text>27.0- 33.0</text> </observationRange> </referenceRange> </ observation> </component> <component> <observation moodCode= "EVN" classCode="OBS"> <templateId root="216.840.1.407179.06.06.22.4.2 " /> <id nullFlavor="NA" /> <code codeSystem="local" code= "MCHC" displayName="MEAN CELL HGB CONCENTRATION" /> <statusCode code= "completed" /> <effectiveTime value="636069149295" /> <value unit="g/dL" xsi:type="PQ" value="30.8" /> <interpretationCode codeSystem="local" code="*" /> <referenceRange> < observationRange> <text>32.0-37.0</text> </ observationRange> </referenceRange> </observation> </ component> <component> <observation moodCode="EVN" classCode="OBS"> <templateId root="216.840.1.842176.06.06.22.4.2" /> <id nullFlavor="NA" /> <code codeSystem="local" code="MCV" displayName= "MEAN CELL VOLUME" /> <statusCode code="completed" /> < effectiveTime value="769835942268" /> <value unit="fl" xsi:type="PQ" value="76.7" /> <interpretationCode codeSystem="local" code="*" /> <referenceRange> <observationRange> <text>80.0- 100.0</text> </observationRange> </referenceRange> </ observation> </component> <component> <observation moodCode= "EVN" classCode="OBS"> <templateId root="216840.1.899724.22.4.2 " /> <id nullFlavor="NA" /> <code codeSystem="local" code="MO# " displayName="MONOCYTE #" /> <statusCode code="completed" /> <effectiveTime value="901463274591" /> <value unit="k/cumm" xsi:type= "PQ" value="0.9" /> <referenceRange> <observationRange> <text>0.1-1.0</text> </observationRange> </ referenceRange> </observation> </component> <component> <observation moodCode="EVN" classCode="OBS"> <templateId root= "840.1.772311.06.06.224.2" /> <id nullFlavor="NA" /> < code codeSystem="local" code="MO%" displayName="MONOCYTE %" /> <statusCode code="completed" /> <effectiveTime value="623532354409" /> <value unit="%" xsi:type="PQ" value="13" /> < interpretationCode codeSystem="local" code="*" /> <referenceRange> <observationRange> <text>4-6</text> </ observationRange> </referenceRange> </observation> </ component> <component> <observation moodCode="EVN" classCode="OBS"> <templateId root="840.1.993508.10.4.2" /> <id nullFlavor="NA" /> <code codeSystem="local" code="MPVT" displayName= "MEAN PLATELET VOLUME" /> <statusCode code="completed" /> < effectiveTime value="256480626827" /> <value unit="fl" xsi:type="PQ" value="8.8" /> <referenceRange> <observationRange> <text>8.5-10.9</text> </observationRange> </ referenceRange> </observation> </component> <component> <observation moodCode="EVN" classCode="OBS"> <templateId root= "216.840.1.741846.10.4.2" /> <id nullFlavor="NA" /> < code codeSystem="local" code="OVAL" displayName="OVALOCYTES" /> < statusCode code="completed" /> <effectiveTime value="927488522530" /> <value unit="" xsi:type="PQ" value="NOTED" /> <referenceRange > <observationRange> <text /> </ observationRange> </referenceRange> </observation> </ component> <component> <observation moodCode="EVN" classCode="OBS"> <templateId root="16.840.1.331600.06.06.22.4.2" /> <id nullFlavor="NA" /> <code codeSystem="local" code="RBC" displayName=" RED BLOOD CELL" /> <statusCode code="completed" /> < effectiveTime value="126170706652" /> <value unit="m/cumm" xsi:type="PQ " value="3.60" /> <interpretationCode codeSystem="local" code="*" /> <referenceRange> <observationRange> <text>4.00- 6.00</text> </observationRange> </referenceRange> </ observation> </component> <component> <observation moodCode= "EVN" classCode="OBS"> <templateId root="10.03.840.1.404532.06.06.22.4.2 " /> <id nullFlavor="NA" /> <code codeSystem="local" code="RDW " displayName="RED CELL DISTRIBUTION WIDTH" /> <statusCode code= "completed" /> <effectiveTime value="669832641578" /> <value unit="%" xsi:type="PQ" value="19.5" /> <interpretationCode codeSystem="local" code="*" /> <referenceRange> < observationRange> <text>11.0-15.6</text> </ observationRange> </referenceRange> </observation> </ component> <component> <observation moodCode="EVN" classCode="OBS"> <templateId root="16.840.1.536629.10..22.4.2" /> <id nullFlavor="NA" /> <code codeSystem="local" code="WBC" displayName= "WHITE BLOOD CELL" /> <statusCode code="completed" /> < effectiveTime value="799972266282" /> <value unit="k/cumm" xsi:type="PQ " value="6.9" /> <referenceRange> <observationRange> <text>5.0-10.0</text> </observationRange> </ referenceRange> </observation> </component> <component> <observation moodCode="EVN" classCode="OBS"> <templateId root= "10.03.840.1.317287.10..22.4.2" /> <id nullFlavor="NA" /> < code codeSystem="local" code="HGBT" displayName="HEMOGLOBIN" /> < statusCode code="completed" /> <effectiveTime value="447024235378" /> <value unit="gm/dL" xsi:type="PQ" value="8.5" /> < interpretationCode codeSystem="local" code="*" /> <referenceRange> <observationRange> <text>12.0-16.0</text> </ observationRange> </referenceRange> </observation> </ component> <component> <observation moodCode="EVN" classCode="OBS"> <templateId root="10.03.840.1.468271.10..4.2" /> <id nullFlavor="NA" /> <code codeSystem="local" code="HCTT" displayName= "HEMATOCRIT" /> <statusCode code="completed" /> < effectiveTime value="002929111120" /> <value unit="%" xsi:type="PQ " value="27.6" /> <interpretationCode codeSystem="local" code="*" /> <referenceRange> <observationRange> <text>37.0- 47.0</text> </observationRange> </referenceRange> </ observation> </component> <component> <observation moodCode= "EVN" classCode="OBS"> <templateId root="840.1.222959.06.06.22.4.2 " /> <id nullFlavor="NA" /> <code codeSystem="local" code= "PLTT" displayName="PLATELET COUNT" /> <statusCode code="completed" /> <effectiveTime value="330257947189" /> <value unit="k/cumm" xsi:type="PQ" value="331" /> <referenceRange> < observationRange> <text>150-400</text> </ observationRange> </referenceRange> </observation> </ component> </organizer> </entry> <entry> <organizer moodCode="EVN" classCode="BATTERY"> <templateId root="10.03.840.1.518643.10..4.1" /> <id nullFlavor="NA" /> <code codeSystem="local" code="METABC" displayName="METABOLIC PANEL, COMPREHN" /> <statusCode code="completed" /> <component> <observation moodCode="EVN" classCode="OBS"> < templateId root="10.03.840.1.410115.22.4.2" /> <id nullFlavor="NA " /> <code codeSystem="local" code="K" displayName="POTASSIUM" /> <statusCode code="completed" /> <effectiveTime value=" " /> <value unit="mmol/L" xsi:type="PQ" value="3.7" /> < referenceRange> <observationRange> <text>3.5-5.3</text> </observationRange> </referenceRange> </observation > </component> <component> <observation moodCode="EVN" classCode="OBS"> <templateId root="216.840.1.750197.06.06.22.4.2" /> <id nullFlavor="NA" /> <code codeSystem="local" code="eGFR" displayName="EST GFR (MDRD)" /> <statusCode code="completed" /> <effectiveTime value="549359724497" /> <value unit="mL/min" xsi:type ="PQ" value="> 60" /> <referenceRange> <observationRange > <text>> 59</text> </observationRange> </ referenceRange> </observation> </component> <component> <observation moodCode="EVN" classCode="OBS"> <templateId root= "16.840.1.587255.06.06.22.4.2" /> <id nullFlavor="NA" /> < code codeSystem="local" code="GAP" displayName="ANION GAP" /> < statusCode code="completed" /> <effectiveTime value="" /> <value unit="mmol/L" xsi:type="PQ" value="8" /> < referenceRange> <observationRange> <text>5-15</text> </observationRange> </referenceRange> </observation> </component> <component> <observation moodCode="EVN" classCode= "OBS"> <templateId root="216.840.1.331063.10..4.2" /> < id nullFlavor="NA" /> <code codeSystem="local" code="eCrCl" displayName ="EST CrCl (CG)" /> <statusCode code="completed" /> < effectiveTime value="" /> <value unit="mL/min" xsi:type="PQ " value="57" /> <interpretationCode codeSystem="local" code="*" /> <referenceRange> <observationRange> <text>> 59< /text> </observationRange> </referenceRange> </ observation> </component> <component> <observation moodCode= "EVN" classCode="OBS"> <templateId root="2.840.1.039004.06.06.22.4.2 " /> <id nullFlavor="NA" /> <code codeSystem="local" code="GLU " displayName="GLUCOSE" /> <statusCode code="completed" /> < effectiveTime value="" /> <value unit="mg/dL" xsi:type="PQ " value="114" /> <interpretationCode codeSystem="local" code="*" /> <referenceRange> <observationRange> <text>70-99</ text> </observationRange> </referenceRange> </ observation> </component> <component> <observation moodCode= "EVN" classCode="OBS"> <templateId root="216.840.1.560076.10..4.2 " /> <id nullFlavor="NA" /> <code codeSystem="local" code="CA " displayName="CALCIUM" /> <statusCode code="completed" /> < effectiveTime value="" /> <value unit="mg/dL" xsi:type="PQ " value="8.3" /> <interpretationCode codeSystem="local" code="*" /> <referenceRange> <observationRange> <text>8.5- 10.1</text> </observationRange> </referenceRange> </ observation> </component> <component> <observation moodCode= "EVN" classCode="OBS"> <templateId root="16.840.1.321937.10..4.2 " /> <id nullFlavor="NA" /> <code codeSystem="local" code="BUN " displayName="BLOOD UREA NITROGEN" /> <statusCode code="completed" /> <effectiveTime value="388463957417" /> <value unit="mg/dL" xsi:type="PQ" value="19" /> <referenceRange> < observationRange> <text>7-20</text> </observationRange> </referenceRange> </observation> </component> < component> <observation moodCode="EVN" classCode="OBS"> < templateId root="10.03.840.1.636645.06.06.22.4.2" /> <id nullFlavor="NA " /> <code codeSystem="local" code="CREAT" displayName="CREATININE" /> <statusCode code="completed" /> <effectiveTime value= "783788805777" /> <value unit="mg/dL" xsi:type="PQ" value="0.9" /> <referenceRange> <observationRange> <text>0.6-1.0< /text> </observationRange> </referenceRange> </ observation> </component> <component> <observation moodCode= "EVN" classCode="OBS"> <templateId root="216.840.1.295854....4.2 " /> <id nullFlavor="NA" /> <code codeSystem="local" code="NA " displayName="SODIUM" /> <statusCode code="completed" /> < effectiveTime value="290937432613" /> <value unit="mmol/L" xsi:type="PQ " value="135" /> <referenceRange> <observationRange> <text>135-148</text> </observationRange> </ referenceRange> </observation> </component> <component> <observation moodCode="EVN" classCode="OBS"> <templateId root= "16.840.1.217879.10.20.22.4.2" /> <id nullFlavor="NA" /> < code codeSystem="local" code="CL" displayName="CHLORIDE" /> < statusCode code="completed" /> <effectiveTime value="758048740222" /> <value unit="mmol/L" xsi:type="PQ" value="103" /> < referenceRange> <observationRange> <text>98-110</text> </observationRange> </referenceRange> </observation> </component> <component> <observation moodCode="EVN" classCode ="OBS"> <templateId root="16.840.1.093814.10.20.22.4.2" /> < id nullFlavor="NA" /> <code codeSystem="local" code="AST" displayName= "AST/SGOT" /> <statusCode code="completed" /> <effectiveTime value="697785839694" /> <value unit="Units/L" xsi:type="PQ" value="12" /> <referenceRange> <observationRange> <text>10 -37</text> </observationRange> </referenceRange> </ observation> </component> <component> <observation moodCode= "EVN" classCode="OBS"> <templateId root="840.1.766418.10.4.2 " /> <id nullFlavor="NA" /> <code codeSystem="local" code="ALT " displayName="ALT/SGPT" /> <statusCode code="completed" /> < effectiveTime value="" /> <value unit="Units/L" xsi:type= "PQ" value="16" /> <referenceRange> <observationRange> <text>< 66</text> </observationRange> </ referenceRange> </observation> </component> <component> <observation moodCode="EVN" classCode="OBS"> <templateId root= "216.840.1.201589.06.06.22.4.2" /> <id nullFlavor="NA" /> < code codeSystem="local" code="CO2" displayName="CARBON DIOXIDE" /> < statusCode code="completed" /> <effectiveTime value="" /> <value unit="mmol/L" xsi:type="PQ" value="24" /> < referenceRange> <observationRange> <text>21-32</text> </observationRange> </referenceRange> </observation> </component> <component> <observation moodCode="EVN" classCode= "OBS"> <templateId root="16.840.1.630686.10.4.2" /> < id nullFlavor="NA" /> <code codeSystem="local" code="TP" displayName= "TOTAL PROTEIN" /> <statusCode code="completed" /> < effectiveTime value="" /> <value unit="gm/dL" xsi:type="PQ " value="6.3" /> <interpretationCode codeSystem="local" code="*" /> <referenceRange> <observationRange> <text>6.4-8.2 </text> </observationRange> </referenceRange> </ observation> </component> <component> <observation moodCode= "EVN" classCode="OBS"> <templateId root="216.840.1.111053.10.22.4.2 " /> <id nullFlavor="NA" /> <code codeSystem="local" code="ALB " displayName="ALBUMIN" /> <statusCode code="completed" /> < effectiveTime value="" /> <value unit="gm/dL" xsi:type="PQ " value="2.7" /> <interpretationCode codeSystem="local" code="*" /> <referenceRange> <observationRange> <text>3.4-5.0 </text> </observationRange> </referenceRange> </ observation> </component> <component> <observation moodCode= "EVN" classCode="OBS"> <templateId root="16.840.1.762773.06.06.22.4.2 " /> <id nullFlavor="NA" /> <code codeSystem="local" code= "BILTOT" displayName="BILI TOTAL" /> <statusCode code="completed" /> <effectiveTime value="129067758279" /> <value unit="mg/dL" xsi: type="PQ" value="0.1" /> <referenceRange> <observationRange > <text>0.0-1.0</text> </observationRange> </ referenceRange> </observation> </component> <component> <observation moodCode="EVN" classCode="OBS"> <templateId root= "216.840.1.447094.10..4.2" /> <id nullFlavor="NA" /> < code codeSystem="local" code="ALKP" displayName="ALKALINE PHOSPHATASE TOTAL" /> <statusCode code="completed" /> <effectiveTime value= "917024703481" /> <value unit="IU/L" xsi:type="PQ" value="85" /> <referenceRange> <observationRange> <text>45-117</ text> </observationRange> </referenceRange> </ observation> </component> </organizer> </entry> <entry> <organizer moodCode="EVN" classCode="BATTERY"> <templateId root= "216.840.1.741647.10..22.4.1" /> <id nullFlavor="NA" /> <code codeSystem="local" code="TSH" displayName="THYROID STIM HORMONE (TSH)" /> < statusCode code="completed" /> <component> <observation moodCode= "EVN" classCode="OBS"> <templateId root="216.840.1.929316.10..22.4.2 " /> <id nullFlavor="NA" /> <code codeSystem="local" code="TSH " displayName="THYROID STIM HORMONE (TSH)" /> <statusCode code= "completed" /> <effectiveTime value="981153512848" /> <value unit="uIU/mL" xsi:type="PQ" value="1.18" /> <referenceRange> <observationRange> <text>0.34-4.82</text> </ observationRange> </referenceRange> </observation> </ component> </organizer> </entry> <entry> <organizer moodCode="EVN" classCode="BATTERY"> <templateId root="216.840.1.842738.10..22.4.1" /> <id nullFlavor="NA" /> <code codeSystem="local" code="ALC" displayName ="ALCOHOL (ETHANOL) SERUM" /> <statusCode code="completed" /> < component> <observation moodCode="EVN" classCode="OBS"> < templateId root="216.840.1.350589.10.20.22.4.2" /> <id nullFlavor="NA " /> <code codeSystem="local" code="ALC" displayName="ALCOHOL (ETHANOL ) SERUM" /> <statusCode code="completed" /> <effectiveTime value="076157566328" /> <value unit="mg/dL" xsi:type="PQ" value="< 10" /> <referenceRange> <observationRange> < text> < 10</text> </observationRange> </referenceRange> </observation> </component> </organizer> </entry> <entry> < organizer moodCode="EVN" classCode="BATTERY"> <templateId root= "216.840.1.082504.10.20.22.4.1" /> <id nullFlavor="NA" /> <code codeSystem="local" code="ACTMN" displayName="ACETAMINOPHEN (TYLENOL)" /> < statusCode code="completed" /> <component> <observation moodCode= "EVN" classCode="OBS"> <templateId root="216.840.1.131794.10.20.22.4.2 " /> <id nullFlavor="NA" /> <code codeSystem="local" code= "ACTMN" displayName="ACETAMINOPHEN (TYLENOL)" /> <statusCode code= "completed" /> <effectiveTime value="567335180338" /> <value unit="mcg/mL" xsi:type="PQ" value="< 2" /> <referenceRange> <observationRange> <text>10-30</text> </ observationRange> </referenceRange> </observation> </ component> </organizer> </entry> <entry> <organizer moodCode="EVN" classCode="BATTERY"> <templateId root="840.1.742296.10.4.1" /> <id nullFlavor="NA" /> <code codeSystem="local" code="SALI" displayName="SALICYLATE (ASPIRIN)" /> <statusCode code="completed" /> <component> <observation moodCode="EVN" classCode="OBS"> < templateId root="10.03.840.1.802643.06.06.22.4.2" /> <id nullFlavor="NA " /> <code codeSystem="local" code="SALINUM" displayName="SALICYLATE" / > <statusCode code="completed" /> <effectiveTime value= "391825950599" /> <value unit="mg/dL" xsi:type="PQ" value="< 2.8" / > <referenceRange> <observationRange> <text>2.8 -29.0</text> </observationRange> </referenceRange> </ observation> </component> </organizer> </entry> <entry> <organizer moodCode="EVN" classCode="BATTERY"> <templateId root= "10.03.840.1.402112.06.06.22.4.1" /> <id nullFlavor="NA" /> <code codeSystem="local" code="HDLPRO" displayName="LIPID PANEL" /> <statusCode code="completed" /> <component> <observation moodCode="EVN" classCode="OBS"> <templateId root="10.03.840.1.860801.06.06.22.4.2" /> <id nullFlavor="NA" /> <code codeSystem="local" code="CHOL/HDL " displayName="CHOLESTEROL/HDL RATIO" /> <statusCode code="completed" / > <effectiveTime value="557763024146" /> <value unit="" xsi: type="PQ" value="3.7" /> <referenceRange> <observationRange > <text> < 5.0</text> </observationRange> </ referenceRange> </observation> </component> <component> <observation moodCode="EVN" classCode="OBS"> <templateId root= "10.03.840.1.739589.10.20.22.4.2" /> <id nullFlavor="NA" /> < code codeSystem="local" code="LDLX" displayName="LDL CHOLESTEROL" /> < statusCode code="completed" /> <effectiveTime value="443059499667" /> <value unit="mg/dL" xsi:type="PQ" value="109" /> < interpretationCode codeSystem="local" code="*" /> <referenceRange> <observationRange> <text>< 100</text> </ observationRange> </referenceRange> </observation> </ component> <component> <observation moodCode="EVN" classCode="OBS"> <templateId root="840.1.202110.10.22.4.2" /> <id nullFlavor="NA" /> <code codeSystem="local" code="VLDL" displayName= "VLDL CHOLESTEROL" /> <statusCode code="completed" /> < effectiveTime value="556882188977" /> <value unit="mg/dL" xsi:type="PQ " value="19" /> <referenceRange> <observationRange> <text>< 30</text> </observationRange> </ referenceRange> </observation> </component> <component> <observation moodCode="EVN" classCode="OBS"> <templateId root= "10.03.840.1.845003.10.20.22.4.2" /> <id nullFlavor="NA" /> < code codeSystem="local" code="TRIG" displayName="TRIGLYCERIDES" /> < statusCode code="completed" /> <effectiveTime value="" /> <value unit="mg/dL" xsi:type="PQ" value="95" /> < referenceRange> <observationRange> <text>< 150</text > </observationRange> </referenceRange> </observation > </component> <component> <observation moodCode="EVN" classCode="OBS"> <templateId root="216.840.1.813770.06.06.22.4.2" /> <id nullFlavor="NA" /> <code codeSystem="local" code="CHOL" displayName="CHOLESTEROL" /> <statusCode code="completed" /> < effectiveTime value="520551386899" /> <value unit="mg/dL" xsi:type="PQ " value="175" /> <referenceRange> <observationRange> <text>< 200</text> </observationRange> </ referenceRange> </observation> </component> <component> <observation moodCode="EVN" classCode="OBS"> <templateId root= "216.840.1.795255.06.06.22.4.2" /> <id nullFlavor="NA" /> < code codeSystem="local" code="HDL" displayName="HDL CHOLESTEROL" /> < statusCode code="completed" /> <effectiveTime value="[id number]" /> <value unit="mg/dL" xsi:type="PQ" value="47" /> < referenceRange> <observationRange> <text>> 39</text> </observationRange> </referenceRange> </observation > </component> </organizer> </entry> <entry> <organizer moodCode= "EVN" classCode="BATTERY"> <templateId root="216.840.1.437609.06.06.22.4.1 " /> <id nullFlavor="NA" /> <code codeSystem="local" code="UA" displayName="URINALYSIS, ROUTINE" /> <statusCode code="completed" /> < component> <observation moodCode="EVN" classCode="OBS"> < templateId root="10.03.840.1.755231.06.06.22.4.2" /> <id nullFlavor="NA " /> <code codeSystem="local" code="LEUESU" displayName="UA LEUKOCYTE ESTERASE DIPSTICK" /> <statusCode code="completed" /> < effectiveTime value="" /> <value unit="" xsi:type="PQ" value="NEGATIVE" /> <referenceRange> <observationRange> <text>NEGATIVE</text> </observationRange> </ referenceRange> </observation> </component> <component> <observation moodCode="EVN" classCode="OBS"> <templateId root= "840.1.666929.06.06.224.2" /> <id nullFlavor="NA" /> < code codeSystem="local" code="NITRIU" displayName="UA NITRITE DIPSTICK" /> <statusCode code="completed" /> <effectiveTime value=" " /> <value unit="" xsi:type="PQ" value="NEGATIVE" /> < referenceRange> <observationRange> <text>NEGATIVE</text > </observationRange> </referenceRange> </observation > </component> <component> <observation moodCode="EVN" classCode="OBS"> <templateId root="10.03.840.1.810969.06.06.224.2" /> <id nullFlavor="NA" /> <code codeSystem="local" code="PROTEIU " displayName="UA PROTEIN DIPSTICK" /> <statusCode code="completed" /> <effectiveTime value="" /> <value unit="" xsi: type="PQ" value="NEGATIVE" /> <referenceRange> < observationRange> <text>NEGATIVE</text> </ observationRange> </referenceRange> </observation> </ component> <component> <observation moodCode="EVN" classCode="OBS"> <templateId root="10.03.840.1.093735.06.06.22.4.2" /> <id nullFlavor="NA" /> <code codeSystem="local" code="DGLUU" displayName= "UA GLUCOSE DIPSTICK" /> <statusCode code="completed" /> < effectiveTime value="" /> <value unit="" xsi:type="PQ" value="NEGATIVE" /> <referenceRange> <observationRange> <text>NEGATIVE</text> </observationRange> </ referenceRange> </observation> </component> <component> <observation moodCode="EVN" classCode="OBS"> <templateId root= "10.03.840.1.557000.06.06.22.4.2" /> <id nullFlavor="NA" /> < code codeSystem="local" code="KETONU" displayName="UA KETONE DIPSTICK" /> <statusCode code="completed" /> <effectiveTime value=" " /> <value unit="" xsi:type="PQ" value="NEGATIVE" /> < referenceRange> <observationRange> <text>NEGATIVE</text > </observationRange> </referenceRange> </observation > </component> <component> <observation moodCode="EVN" classCode="OBS"> <templateId root="10.03.840.1.913270.22.4.2" /> <id nullFlavor="NA" /> <code codeSystem="local" code="UROBILU " displayName="UA UROBILINOGEN DIPSTICK" /> <statusCode code="completed " /> <effectiveTime value="[id number]" /> <value unit="" xsi :type="PQ" value="NORMAL" /> <referenceRange> < observationRange> <text>NORMAL</text> </observationRange > </referenceRange> </observation> </component> < component> <observation moodCode="EVN" classCode="OBS"> < templateId root="10.03.840.1.887001.10..4.2" /> <id nullFlavor="NA " /> <code codeSystem="local" code="BILU" displayName="UA BILIRUBIN DIPSTICK" /> <statusCode code="completed" /> <effectiveTime value="171064251185" /> <value unit="" xsi:type="PQ" value="NEGATIVE" / > <referenceRange> <observationRange> <text> NEGATIVE</text> </observationRange> </referenceRange> </observation> </component> <component> <observation moodCode ="EVN" classCode="OBS"> <templateId root= "10.03.840.1.086874.10..4.2" /> <id nullFlavor="NA" /> < code codeSystem="local" code="ADAM" displayName="UA BLOOD DIPSTICK" /> < statusCode code="completed" /> <effectiveTime value="076489964019" /> <value unit="" xsi:type="PQ" value="NEGATIVE" /> < referenceRange> <observationRange> <text>NEGATIVE</text > </observationRange> </referenceRange> </observation > </component> <component> <observation moodCode="EVN" classCode="OBS"> <templateId root="10.03.840.1.013162.104.2" /> <id nullFlavor="NA" /> <code codeSystem="local" code="SPGRU" displayName="UA SPECIFIC GRAVITY" /> <statusCode code="completed" /> <effectiveTime value="859184716120" /> <value unit="" xsi:type= "PQ" value="1.009" /> <interpretationCode codeSystem="local" code="*" / > <referenceRange> <observationRange> <text> 1.015-1.025</text> </observationRange> </referenceRange> </observation> </component> <component> <observation moodCode="EVN" classCode="OBS"> <templateId root= "10.03.840.1.369887.06.06.224.2" /> <id nullFlavor="NA" /> < code codeSystem="local" code="INGRID" displayName="UR PH" /> <statusCode code="completed" /> <effectiveTime value="125082928155" /> < value unit="" xsi:type="PQ" value="6.5" /> <referenceRange> <observationRange> <text>5.0-7.0</text> </ observationRange> </referenceRange> </observation> </ component> </organizer> </entry> <entry> <organizer moodCode="EVN" classCode="BATTERY"> <templateId root="10.03.840.1.941469.06.06.22.4.1" /> <id nullFlavor="NA" /> <code codeSystem="local" code="DRUGAB" displayName="UR DRUGS OF ABUSE SCREEN" /> <statusCode code="completed" /> <component> <observation moodCode="EVN" classCode="OBS"> < templateId root="10.03.840.1.184907.06.06.22.4.2" /> <id nullFlavor="NA " /> <code codeSystem="local" code="AMPHU" displayName="UR AMPHETAMINES SCREEN" /> <statusCode code="completed" /> < effectiveTime value="215136489400" /> <value unit="" xsi:type="PQ" value="POS (>1000 ng/mL)" /> <referenceRange> < observationRange> <text>NEGATIVE</text> </ observationRange> </referenceRange> </observation> </ component> <component> <observation moodCode="EVN" classCode="OBS"> <templateId root="2.16.840.1.795465.10..22.4.2" /> <id nullFlavor="NA" /> <code codeSystem="local" code="BARBU" displayName= "UR BARBITURATE SCREEN" /> <statusCode code="completed" /> < effectiveTime value="448562102832" /> <value unit="" xsi:type="PQ" value="NEG (< 200 ng/mL)" /> <referenceRange> < observationRange> <text>NEGATIVE</text> </ observationRange> </referenceRange> </observation> </ component> <component> <observation moodCode="EVN" classCode="OBS"> <templateId root="2.16.840.1.678465.10..22.4.2" /> <id nullFlavor="NA" /> <code codeSystem="local" code="DAUCOMMENT" displayName="DRUGS OF ABUSE SCREEN COMMENT" /> <statusCode code= "completed" /> <effectiveTime value="597591937349" /> <value unit="" xsi:type="PQ" value="" /> <referenceRange> < observationRange> <text /> </observationRange> </referenceRange> </observation> </component> <component> <observation moodCode="EVN" classCode="OBS"> <templateId root= "216.840.1.622934.10..22.4.2" /> <id nullFlavor="NA" /> < code codeSystem="local" code="OPIU" displayName="UR OPIATES SCREEN" /> <statusCode code="completed" /> <effectiveTime value="" /> <value unit="" xsi:type="PQ" value="NEG (< 300 ng/mL)" /> <referenceRange> <observationRange> <text>NEGATIVE</ text> </observationRange> </referenceRange> </ observation> </component> <component> <observation moodCode= "EVN" classCode="OBS"> <templateId root="216.840.1.021237.10...4.2 " /> <id nullFlavor="NA" /> <code codeSystem="local" code= "PCPU" displayName="UR PHENCYCLIDINE (PCP) SCREEN" /> <statusCode code= "completed" /> <effectiveTime value="" /> <value unit="" xsi:type="PQ" value="NEG (< 25 ng/mL)" /> <referenceRange > <observationRange> <text>NEGATIVE</text> </ observationRange> </referenceRange> </observation> </ component> <component> <observation moodCode="EVN" classCode="OBS"> <templateId root="216.840.1.467095.10..22.4.2" /> <id nullFlavor="NA" /> <code codeSystem="local" code="THCU" displayName=" UR CANNABINOIDS (THC) SCREEN" /> <statusCode code="completed" /> <effectiveTime value="752355161689" /> <value unit="" xsi:type="PQ " value="POS (> 50 ng/mL)" /> <referenceRange> < observationRange> <text>NEGATIVE</text> </ observationRange> </referenceRange> </observation> </ component> <component> <observation moodCode="EVN" classCode="OBS"> <templateId root="216.840.1.458734.10..22.4.2" /> <id nullFlavor="NA" /> <code codeSystem="local" code="COCAU" displayName= "UR COCAINE METABOLITE SCREEN" /> <statusCode code="completed" /> <effectiveTime value="113298651874" /> <value unit="" xsi:type="PQ " value="NEG (< 300 ng/mL)" /> <referenceRange> < observationRange> <text>NEGATIVE</text> </ observationRange> </referenceRange> </observation> </ component> <component> <observation moodCode="EVN" classCode="OBS"> <templateId root="10.03.840.1.634294.10...4.2" /> <id nullFlavor="NA" /> <code codeSystem="local" code="METHU" displayName= "UR METHADONE SCREEN" /> <statusCode code="completed" /> < effectiveTime value="274178849934" /> <value unit="" xsi:type="PQ" value="NEG (< 300 ng/mL)" /> <referenceRange> < observationRange> <text>NEGATIVE</text> </ observationRange> </referenceRange> </observation> </ component> <component> <observation moodCode="EVN" classCode="OBS"> <templateId root="16.840.1.136441.10...4.2" /> <id nullFlavor="NA" /> <code codeSystem="local" code="BENZU" displayName= "UR BENZODIAZEPINE SCREEN" /> <statusCode code="completed" /> <effectiveTime value="866359846164" /> <value unit="" xsi:type="PQ" value="NEG (< 200 ng/mL)" /> <referenceRange> < observationRange> <text>NEGATIVE</text> </ observationRange> </referenceRange> </observation> </ component> </organizer> </entry> <entry> <organizer moodCode="EVN" classCode="BATTERY"> <templateId root="2.16.840.1.193197.10.20.22.4.1" /> <id nullFlavor="NA" /> <code codeSystem="local" code="MRSAS" displayName="MRSA SURVEILLANCE SCREEN" /> <statusCode code="completed" /> <component> <observation moodCode="EVN" classCode="OBS"> < templateId root="2.16.840.1.867906.10.20.22.4.2" /> <id nullFlavor="NA " /> <code codeSystem="local" code="MB" displayName="Microbiology" /> <statusCode code="completed" /> <effectiveTime value= "293951449557" /> <value xsi:type="ST" value="<pre><b>MRSA SURVEILLANCE SCREEN</b> See Below: PATIENT REPORTS "I THINK I MIGHT HAVE HAD STAFF BEFORE"RESULT CALLED TO MARLI BARAJAS BY [facility] AT 1244, 03/20/17.MRSA SURVEILLANCE SCREEN(F) Cosme Date/Time: 03/19/2017 08:48 Irvin Date/Time: 03/20/2017 12:44SOURCE: ANTERIOR NARESSPEC DESC: CALL REPORT, RCT T [facility] CONTACT PRECAUTIONS SHOULD BE IMPLEMENTED 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)[facility] [place] [address]</pre>" /> <referenceRange> <observationRange> <text /> </observationRange> </referenceRange> </observation> </component> </organizer > </entry> <entry> <organizer moodCode="EVN" classCode="BATTERY"> < templateId root="10.03.840.1.518005.10..4.1" /> <id nullFlavor="NA" /> <code codeSystem="local" code="GLUMON" displayName="GLUCOSE (POC)" /> <statusCode code="completed" /> <component> <observation moodCode= "EVN" classCode="OBS"> <templateId root="840.1.044242.06.06.22.4.2 " /> <id nullFlavor="NA" /> <code codeSystem="local" code= "GLUMON" displayName="GLUCOSE (POC)" /> <statusCode code="completed" / > <effectiveTime value="769069684973" /> <value unit="mg/dL" xsi:type="PQ" value="143" /> <interpretationCode codeSystem="local" code="*" /> <referenceRange> <observationRange> <text>70-99</text> </observationRange> </referenceRange> </observation> </component> </organizer> </entry> <entry> < organizer moodCode="EVN" classCode="BATTERY"> <templateId root= "840.1.404926.06.06.22.4.1" /> <id nullFlavor="NA" /> <code codeSystem="local" code="GLUMON" displayName="GLUCOSE (POC)" /> < statusCode code="completed" /> <component> <observation moodCode= "EVN" classCode="OBS"> <templateId root="840.1.615904.06.06.22.4.2 " /> <id nullFlavor="NA" /> <code codeSystem="local" code= "GLUMON" displayName="GLUCOSE (POC)" /> <statusCode code="completed" / > <effectiveTime value="427805459106" /> <value unit="mg/dL" xsi:type="PQ" value="130" /> <interpretationCode codeSystem="local" code="*" /> <referenceRange> <observationRange> <text>70-99</text> </observationRange> </referenceRange> </observation> </component> </organizer> </entry> <entry> < organizer moodCode="EVN" classCode="BATTERY"> <templateId root= "10.03.840.1.743528.10.20.22.4.1" /> <id nullFlavor="NA" /> <code codeSystem="local" code="GLUMON" displayName="GLUCOSE (POC)" /> < statusCode code="completed" /> <component> <observation moodCode= "EVN" classCode="OBS"> <templateId root="10.03.840.1.729447.10.20.22.4.2 " /> <id nullFlavor="NA" /> <code codeSystem="local" code= "GLUMON" displayName="GLUCOSE (POC)" /> <statusCode code="completed" / > <effectiveTime value="277035678718" /> <value unit="mg/dL" xsi:type="PQ" value="169" /> <interpretationCode codeSystem="local" code="*" /> <referenceRange> <observationRange> <text>70-99</text> </observationRange> </referenceRange> </observation> </component> </organizer> </entry> <entry> < organizer moodCode="EVN" classCode="BATTERY"> <templateId root= "10.03.840.1.402463.10..22.4.1" /> <id nullFlavor="NA" /> <code codeSystem="local" code="CBCD" displayName="CBC W/DIFF" /> <statusCode code ="completed" /> <component> <observation moodCode="EVN" classCode= "OBS"> <templateId root="216.840.1.202418.10..4.2" /> < id nullFlavor="NA" /> <code codeSystem="local" code="EO#" displayName= "EOSINOPHIL #" /> <statusCode code="completed" /> < effectiveTime value="" /> <value unit="k/cumm" xsi:type="PQ " value="0.1" /> <referenceRange> <observationRange> <text>0.1-0.5</text> </observationRange> </ referenceRange> </observation> </component> <component> <observation moodCode="EVN" classCode="OBS"> <templateId root= "10.03.840.1.465924.06.06.22.4.2" /> <id nullFlavor="NA" /> < code codeSystem="local" code="EO%" displayName="EOSINOPHIL %" /> <statusCode code="completed" /> <effectiveTime value="" /> <value unit="%" xsi:type="PQ" value="1" /> < interpretationCode codeSystem="local" code="*" /> <referenceRange> <observationRange> <text>2-4</text> </ observationRange> </referenceRange> </observation> </ component> <component> <observation moodCode="EVN" classCode="OBS"> <templateId root="16.840.1.552330.10..4.2" /> <id nullFlavor="NA" /> <code codeSystem="local" code="GR#" displayName= "GRANULOCYTE #" /> <statusCode code="completed" /> < effectiveTime value="" /> <value unit="k/cumm" xsi:type="PQ " value="4.9" /> <referenceRange> <observationRange> <text>2.0-9.0</text> </observationRange> </ referenceRange> </observation> </component> <component> <observation moodCode="EVN" classCode="OBS"> <templateId root= "216.840.1.119395.10..4.2" /> <id nullFlavor="NA" /> < code codeSystem="local" code="GR%" displayName="GRANULOCYTE %" /> <statusCode code="completed" /> <effectiveTime value="495145761768 " /> <value unit="%" xsi:type="PQ" value="69" /> < referenceRange> <observationRange> <text>50-75</text> </observationRange> </referenceRange> </observation> </component> <component> <observation moodCode="EVN" classCode= "OBS"> <templateId root="216.840.1.349597.06.06.22.4.2" /> < id nullFlavor="NA" /> <code codeSystem="local" code="LY#" displayName= "LYMPHOCYTE #" /> <statusCode code="completed" /> < effectiveTime value="884649020860" /> <value unit="k/cumm" xsi:type="PQ " value="1.4" /> <referenceRange> <observationRange> <text>1.0-4.0</text> </observationRange> </ referenceRange> </observation> </component> <component> <observation moodCode="EVN" classCode="OBS"> <templateId root= "216.840.1.265253.22.4.2" /> <id nullFlavor="NA" /> < code codeSystem="local" code="LY%" displayName="LYMPHOCYTE %" /> <statusCode code="completed" /> <effectiveTime value="786642801134" /> <value unit="%" xsi:type="PQ" value="19" /> < interpretationCode codeSystem="local" code="*" /> <referenceRange> <observationRange> <text>20-30</text> </ observationRange> </referenceRange> </observation> </ component> <component> <observation moodCode="EVN" classCode="OBS"> <templateId root="216.840.1.460031.10.4.2" /> <id nullFlavor="NA" /> <code codeSystem="local" code="MCH" displayName= "MEAN CELL HGB" /> <statusCode code="completed" /> < effectiveTime value="660959056886" /> <value unit="pg" xsi:type="PQ" value="23.6" /> <interpretationCode codeSystem="local" code="*" /> <referenceRange> <observationRange> <text>27.0- 33.0</text> </observationRange> </referenceRange> </ observation> </component> <component> <observation moodCode= "EVN" classCode="OBS"> <templateId root="10.03.840.1.238710.1022.4.2 " /> <id nullFlavor="NA" /> <code codeSystem="local" code= "MCHC" displayName="MEAN CELL HGB CONCENTRATION" /> <statusCode code= "completed" /> <effectiveTime value="441271518501" /> <value unit="g/dL" xsi:type="PQ" value="31.4" /> <interpretationCode codeSystem="local" code="*" /> <referenceRange> < observationRange> <text>32.0-37.0</text> </ observationRange> </referenceRange> </observation> </ component> <component> <observation moodCode="EVN" classCode="OBS"> <templateId root="10.03.840.1.628583.10.20.22.4.2" /> <id nullFlavor="NA" /> <code codeSystem="local" code="MCV" displayName= "MEAN CELL VOLUME" /> <statusCode code="completed" /> < effectiveTime value="" /> <value unit="fl" xsi:type="PQ" value="75.2" /> <interpretationCode codeSystem="local" code="*" /> <referenceRange> <observationRange> <text>80.0- 100.0</text> </observationRange> </referenceRange> </ observation> </component> <component> <observation moodCode= "EVN" classCode="OBS"> <templateId root="840.1.469796.06.06.22.4.2 " /> <id nullFlavor="NA" /> <code codeSystem="local" code="MO# " displayName="MONOCYTE #" /> <statusCode code="completed" /> <effectiveTime value="" /> <value unit="k/cumm" xsi:type= "PQ" value="0.7" /> <referenceRange> <observationRange> <text>0.1-1.0</text> </observationRange> </ referenceRange> </observation> </component> <component> <observation moodCode="EVN" classCode="OBS"> <templateId root= "10.03.840.1.683373.10.20.22.4.2" /> <id nullFlavor="NA" /> < code codeSystem="local" code="MO%" displayName="MONOCYTE %" /> <statusCode code="completed" /> <effectiveTime value="" /> <value unit="%" xsi:type="PQ" value="10" /> < interpretationCode codeSystem="local" code="*" /> <referenceRange> <observationRange> <text>4-6</text> </ observationRange> </referenceRange> </observation> </ component> <component> <observation moodCode="EVN" classCode="OBS"> <templateId root="216.840.1.253665....4.2" /> <id nullFlavor="NA" /> <code codeSystem="local" code="MPVT" displayName= "MEAN PLATELET VOLUME" /> <statusCode code="completed" /> < effectiveTime value="" /> <value unit="fl" xsi:type="PQ" value="8.9" /> <referenceRange> <observationRange> <text>8.5-10.9</text> </observationRange> </ referenceRange> </observation> </component> <component> <observation moodCode="EVN" classCode="OBS"> <templateId root= "16.840.1.927739.10..22.4.2" /> <id nullFlavor="NA" /> < code codeSystem="local" code="OVAL" displayName="OVALOCYTES" /> < statusCode code="completed" /> <effectiveTime value="" /> <value unit="" xsi:type="PQ" value="NOTED" /> <referenceRange > <observationRange> <text /> </ observationRange> </referenceRange> </observation> </ component> <component> <observation moodCode="EVN" classCode="OBS"> <templateId root="2.16.840.1.122817.10.20.22.4.2" /> <id nullFlavor="NA" /> <code codeSystem="local" code="RBC" displayName=" RED BLOOD CELL" /> <statusCode code="completed" /> < effectiveTime value="531109932138" /> <value unit="m/cumm" xsi:type="PQ " value="4.11" /> <referenceRange> <observationRange> <text>4.00-6.00</text> </observationRange> </ referenceRange> </observation> </component> <component> <observation moodCode="EVN" classCode="OBS"> <templateId root= "10.03.840.1.756924.10.22.4.2" /> <id nullFlavor="NA" /> < code codeSystem="local" code="RDW" displayName="RED CELL DISTRIBUTION WIDTH" /> <statusCode code="completed" /> <effectiveTime value= "" /> <value unit="%" xsi:type="PQ" value="19.5" /> <interpretationCode codeSystem="local" code="*" /> < referenceRange> <observationRange> <text>11.0-15.6</text > </observationRange> </referenceRange> </observation > </component> <component> <observation moodCode="EVN" classCode="OBS"> <templateId root="10.03.840.1.522437.10.20.22.4.2" /> <id nullFlavor="NA" /> <code codeSystem="local" code="WBC" displayName="WHITE BLOOD CELL" /> <statusCode code="completed" /> <effectiveTime value="" /> <value unit="k/cumm" xsi: type="PQ" value="7.1" /> <referenceRange> <observationRange > <text>5.0-10.0</text> </observationRange> </ referenceRange> </observation> </component> <component> <observation moodCode="EVN" classCode="OBS"> <templateId root= "216.840.1.806594.10.20.22.4.2" /> <id nullFlavor="NA" /> < code codeSystem="local" code="HGBT" displayName="HEMOGLOBIN" /> < statusCode code="completed" /> <effectiveTime value="911872910090" /> <value unit="gm/dL" xsi:type="PQ" value="9.7" /> < interpretationCode codeSystem="local" code="*" /> <referenceRange> <observationRange> <text>12.0-16.0</text> </ observationRange> </referenceRange> </observation> </ component> <component> <observation moodCode="EVN" classCode="OBS"> <templateId root="10.03.840.1.029203.10..22.4.2" /> <id nullFlavor="NA" /> <code codeSystem="local" code="HCTT" displayName= "HEMATOCRIT" /> <statusCode code="completed" /> < effectiveTime value="654569627052" /> <value unit="%" xsi:type="PQ " value="30.9" /> <interpretationCode codeSystem="local" code="*" /> <referenceRange> <observationRange> <text>37.0- 47.0</text> </observationRange> </referenceRange> </ observation> </component> <component> <observation moodCode= "EVN" classCode="OBS"> <templateId root="16.840.1.944186.10.20.22.4.2 " /> <id nullFlavor="NA" /> <code codeSystem="local" code= "PLTT" displayName="PLATELET COUNT" /> <statusCode code="completed" /> <effectiveTime value="806525968402" /> <value unit="k/cumm" xsi:type="PQ" value="362" /> <referenceRange> < observationRange> <text>150-400</text> </ observationRange> </referenceRange> </observation> </ component> </organizer> </entry> <entry> <organizer moodCode="EVN" classCode="BATTERY"> <templateId root="216.840.1.472896.10..22.4.1" /> <id nullFlavor="NA" /> <code codeSystem="local" code="RENAL" displayName="RENAL FUNCTION PANEL" /> <statusCode code="completed" /> <component> <observation moodCode="EVN" classCode="OBS"> < templateId root="16.840.1.268402.10..22.4.2" /> <id nullFlavor="NA " /> <code codeSystem="local" code="K" displayName="POTASSIUM" /> <statusCode code="completed" /> <effectiveTime value="754631662123 " /> <value unit="mmol/L" xsi:type="PQ" value="4.9" /> < referenceRange> <observationRange> <text>3.5-5.3</text> </observationRange> </referenceRange> </observation > </component> <component> <observation moodCode="EVN" classCode="OBS"> <templateId root="16.840.1.222996.10..22.4.2" /> <id nullFlavor="NA" /> <code codeSystem="local" code="eGFR" displayName="EST GFR (MDRD)" /> <statusCode code="completed" /> <effectiveTime value="559951106552" /> <value unit="mL/min" xsi:type ="PQ" value="58" /> <interpretationCode codeSystem="local" code="*" /> <referenceRange> <observationRange> <text>&gt ; 59</text> </observationRange> </referenceRange> </ observation> </component> <component> <observation moodCode= "EVN" classCode="OBS"> <templateId root="216.840.1.549630.10.20.22.4.2 " /> <id nullFlavor="NA" /> <code codeSystem="local" code="GAP " displayName="ANION GAP" /> <statusCode code="completed" /> < effectiveTime value="036773324949" /> <value unit="mmol/L" xsi:type="PQ " value="9" /> <referenceRange> <observationRange> <text>5-15</text> </observationRange> </referenceRange > </observation> </component> <component> <observation moodCode="EVN" classCode="OBS"> <templateId root= "216.840.1.472828.10.20.22.4.2" /> <id nullFlavor="NA" /> < code codeSystem="local" code="eCrCl" displayName="EST CrCl (CG)" /> < statusCode code="completed" /> <effectiveTime value="094323786417" /> <value unit="mL/min" xsi:type="PQ" value="47" /> < interpretationCode codeSystem="local" code="*" /> <referenceRange> <observationRange> <text>> 59</text> </ observationRange> </referenceRange> </observation> </ component> <component> <observation moodCode="EVN" classCode="OBS"> <templateId root="216.840.1.536297.10..22.4.2" /> <id nullFlavor="NA" /> <code codeSystem="local" code="GLU" displayName= "GLUCOSE" /> <statusCode code="completed" /> <effectiveTime value="495673410239" /> <value unit="mg/dL" xsi:type="PQ" value="138" / > <interpretationCode codeSystem="local" code="*" /> < referenceRange> <observationRange> <text>70-99</text> </observationRange> </referenceRange> </observation> </component> <component> <observation moodCode="EVN" classCode= "OBS"> <templateId root="16.840.1.800144.10..22.4.2" /> < id nullFlavor="NA" /> <code codeSystem="local" code="CA" displayName= "CALCIUM" /> <statusCode code="completed" /> <effectiveTime value="063280049039" /> <value unit="mg/dL" xsi:type="PQ" value="8.5" / > <referenceRange> <observationRange> <text>8.5 -10.1</text> </observationRange> </referenceRange> </ observation> </component> <component> <observation moodCode= "EVN" classCode="OBS"> <templateId root="10.03.840.1.054297.10.20.22.4.2 " /> <id nullFlavor="NA" /> <code codeSystem="local" code="BUN " displayName="BLOOD UREA NITROGEN" /> <statusCode code="completed" /> <effectiveTime value="793092614292" /> <value unit="mg/dL" xsi:type="PQ" value="15" /> <referenceRange> < observationRange> <text>7-20</text> </observationRange> </referenceRange> </observation> </component> < component> <observation moodCode="EVN" classCode="OBS"> < templateId root="216.840.1.051920.10..4.2" /> <id nullFlavor="NA " /> <code codeSystem="local" code="CREAT" displayName="CREATININE" /> <statusCode code="completed" /> <effectiveTime value= "308658052149" /> <value unit="mg/dL" xsi:type="PQ" value="1.0" /> <referenceRange> <observationRange> <text>0.6-1.0< /text> </observationRange> </referenceRange> </ observation> </component> <component> <observation moodCode= "EVN" classCode="OBS"> <templateId root="216.840.1.647203.06.06.22.4.2 " /> <id nullFlavor="NA" /> <code codeSystem="local" code="NA " displayName="SODIUM" /> <statusCode code="completed" /> < effectiveTime value="244641741960" /> <value unit="mmol/L" xsi:type="PQ " value="134" /> <interpretationCode codeSystem="local" code="*" /> <referenceRange> <observationRange> <text>135-148 </text> </observationRange> </referenceRange> </ observation> </component> <component> <observation moodCode= "EVN" classCode="OBS"> <templateId root="16.840.1.009487...4.2 " /> <id nullFlavor="NA" /> <code codeSystem="local" code="CL " displayName="CHLORIDE" /> <statusCode code="completed" /> < effectiveTime value="531035056492" /> <value unit="mmol/L" xsi:type="PQ " value="103" /> <referenceRange> <observationRange> <text>98-110</text> </observationRange> </ referenceRange> </observation> </component> <component> <observation moodCode="EVN" classCode="OBS"> <templateId root= "16.840.1.924221.10..22.4.2" /> <id nullFlavor="NA" /> < code codeSystem="local" code="CO2" displayName="CARBON DIOXIDE" /> < statusCode code="completed" /> <effectiveTime value="982487271817" /> <value unit="mmol/L" xsi:type="PQ" value="22" /> < referenceRange> <observationRange> <text>21-32</text> </observationRange> </referenceRange> </observation> </component> <component> <observation moodCode="EVN" classCode= "OBS"> <templateId root="16.840.1.021784.10...4.2" /> < id nullFlavor="NA" /> <code codeSystem="local" code="ALB" displayName= "ALBUMIN" /> <statusCode code="completed" /> <effectiveTime value="186405224167" /> <value unit="gm/dL" xsi:type="PQ" value="3.0" / > <interpretationCode codeSystem="local" code="*" /> < referenceRange> <observationRange> <text>3.4-5.0</text> </observationRange> </referenceRange> </observation > </component> <component> <observation moodCode="EVN" classCode="OBS"> <templateId root="16.840.1.394908.10..22.4.2" /> <id nullFlavor="NA" /> <code codeSystem="local" code="PHOS" displayName="PHOSPHORUS" /> <statusCode code="completed" /> < effectiveTime value="833976833574" /> <value unit="mg/dL" xsi:type="PQ " value="3.5" /> <referenceRange> <observationRange> <text>2.5-4.9</text> </observationRange> </ referenceRange> </observation> </component> </organizer> </entry > <entry> <organizer moodCode="EVN" classCode="BATTERY"> <templateId root="16.840.1.911477.10..22.4.1" /> <id nullFlavor="NA" /> <code codeSystem="local" code="MAG" displayName="MAGNESIUM" /> <statusCode code= "completed" /> <component> <observation moodCode="EVN" classCode= "OBS"> <templateId root="16.840.1.280380.10..22.4.2" /> < id nullFlavor="NA" /> <code codeSystem="local" code="MAG" displayName= "MAGNESIUM" /> <statusCode code="completed" /> <effectiveTime value="793266598023" /> <value unit="mg/dL" xsi:type="PQ" value="1.9" / > <referenceRange> <observationRange> <text>1.8 -2.4</text> </observationRange> </referenceRange> </ observation> </component> </organizer> </entry> <entry> <organizer moodCode="EVN" classCode="BATTERY"> <templateId root= "10.03.840.1.248461.10.20.22.4.1" /> <id nullFlavor="NA" /> <code codeSystem="local" code="GLUMON" displayName="GLUCOSE (POC)" /> < statusCode code="completed" /> <component> <observation moodCode= "EVN" classCode="OBS"> <templateId root="216.840.1.787220.10.4.2 " /> <id nullFlavor="NA" /> <code codeSystem="local" code= "GLUMON" displayName="GLUCOSE (POC)" /> <statusCode code="completed" / > <effectiveTime value="822538758595" /> <value unit="mg/dL" xsi:type="PQ" value="125" /> <interpretationCode codeSystem="local" code="*" /> <referenceRange> <observationRange> <text>70-99</text> </observationRange> </referenceRange> </observation> </component> </organizer> </entry> <entry> < organizer moodCode="EVN" classCode="BATTERY"> <templateId root= "216.840.1.533442.10..4.1" /> <id nullFlavor="NA" /> <code codeSystem="local" code="CBCD" displayName="CBC W/DIFF" /> <statusCode code ="completed" /> <component> <observation moodCode="EVN" classCode= "OBS"> <templateId root="216.840.1.584680...4.2" /> < id nullFlavor="NA" /> <code codeSystem="local" code="BA#" displayName= "BASOPHIL #" /> <statusCode code="completed" /> < effectiveTime value="041204698601" /> <value unit="k/cumm" xsi:type="PQ " value="0.0" /> <referenceRange> <observationRange> <text>0.0-0.2</text> </observationRange> </ referenceRange> </observation> </component> <component> <observation moodCode="EVN" classCode="OBS"> <templateId root= "2.16.840.1.673606.10..22.4.2" /> <id nullFlavor="NA" /> < code codeSystem="local" code="BA%" displayName="BASOPHIL %" /> <statusCode code="completed" /> <effectiveTime value="" /> <value unit="%" xsi:type="PQ" value="1" /> < referenceRange> <observationRange> <text>0-1</text> </observationRange> </referenceRange> </observation> </component> <component> <observation moodCode="EVN" classCode= "OBS"> <templateId root="216.840.1.819055.06.06.22.4.2" /> < id nullFlavor="NA" /> <code codeSystem="local" code="EO#" displayName= "EOSINOPHIL #" /> <statusCode code="completed" /> < effectiveTime value="" /> <value unit="k/cumm" xsi:type="PQ " value="0.1" /> <referenceRange> <observationRange> <text>0.1-0.5</text> </observationRange> </ referenceRange> </observation> </component> <component> <observation moodCode="EVN" classCode="OBS"> <templateId root= "216.840.1.394522.10..22.4.2" /> <id nullFlavor="NA" /> < code codeSystem="local" code="EO%" displayName="EOSINOPHIL %" /> <statusCode code="completed" /> <effectiveTime value="" /> <value unit="%" xsi:type="PQ" value="1" /> < interpretationCode codeSystem="local" code="*" /> <referenceRange> <observationRange> <text>2-4</text> </ observationRange> </referenceRange> </observation> </ component> <component> <observation moodCode="EVN" classCode="OBS"> <templateId root="16.840.1.275957.10...4.2" /> <id nullFlavor="NA" /> <code codeSystem="local" code="GR#" displayName= "GRANULOCYTE #" /> <statusCode code="completed" /> < effectiveTime value="570920541566" /> <value unit="k/cumm" xsi:type="PQ " value="5.4" /> <referenceRange> <observationRange> <text>2.0-9.0</text> </observationRange> </ referenceRange> </observation> </component> <component> <observation moodCode="EVN" classCode="OBS"> <templateId root= "10.03.840.1.009812.10...4.2" /> <id nullFlavor="NA" /> < code codeSystem="local" code="GR%" displayName="GRANULOCYTE %" /> <statusCode code="completed" /> <effectiveTime value="392268970489 " /> <value unit="%" xsi:type="PQ" value="74" /> < referenceRange> <observationRange> <text>50-75</text> </observationRange> </referenceRange> </observation> </component> <component> <observation moodCode="EVN" classCode= "OBS"> <templateId root="216.840.1.824825.10..22.4.2" /> < id nullFlavor="NA" /> <code codeSystem="local" code="LY#" displayName= "LYMPHOCYTE #" /> <statusCode code="completed" /> < effectiveTime value="" /> <value unit="k/cumm" xsi:type="PQ " value="1.2" /> <referenceRange> <observationRange> <text>1.0-4.0</text> </observationRange> </ referenceRange> </observation> </component> <component> <observation moodCode="EVN" classCode="OBS"> <templateId root= "2.16.840.1.007844.10..4.2" /> <id nullFlavor="NA" /> < code codeSystem="local" code="LY%" displayName="LYMPHOCYTE %" /> <statusCode code="completed" /> <effectiveTime value="" /> <value unit="%" xsi:type="PQ" value="17" /> < interpretationCode codeSystem="local" code="*" /> <referenceRange> <observationRange> <text>20-30</text> </ observationRange> </referenceRange> </observation> </ component> <component> <observation moodCode="EVN" classCode="OBS"> <templateId root="216.840.1.933193.10.2022.4.2" /> <id nullFlavor="NA" /> <code codeSystem="local" code="MCH" displayName= "MEAN CELL HGB" /> <statusCode code="completed" /> < effectiveTime value="" /> <value unit="pg" xsi:type="PQ" value="23.5" /> <interpretationCode codeSystem="local" code="*" /> <referenceRange> <observationRange> <text>27.0- 33.0</text> </observationRange> </referenceRange> </ observation> </component> <component> <observation moodCode= "EVN" classCode="OBS"> <templateId root="10.03.840.1.891168.10.2022.4.2 " /> <id nullFlavor="NA" /> <code codeSystem="local" code= "MCHC" displayName="MEAN CELL HGB CONCENTRATION" /> <statusCode code= "completed" /> <effectiveTime value="" /> <value unit="g/dL" xsi:type="PQ" value="30.8" /> <interpretationCode codeSystem="local" code="*" /> <referenceRange> < observationRange> <text>32.0-37.0</text> </ observationRange> </referenceRange> </observation> </ component> <component> <observation moodCode="EVN" classCode="OBS"> <templateId root="840.1.826972.1022.4.2" /> <id nullFlavor="NA" /> <code codeSystem="local" code="MCV" displayName= "MEAN CELL VOLUME" /> <statusCode code="completed" /> < effectiveTime value="" /> <value unit="fl" xsi:type="PQ" value="76.3" /> <interpretationCode codeSystem="local" code="*" /> <referenceRange> <observationRange> <text>80.0- 100.0</text> </observationRange> </referenceRange> </ observation> </component> <component> <observation moodCode= "EVN" classCode="OBS"> <templateId root="10.03.840.1.357600.10.2022.4.2 " /> <id nullFlavor="NA" /> <code codeSystem="local" code="MO# " displayName="MONOCYTE #" /> <statusCode code="completed" /> <effectiveTime value="685391175413" /> <value unit="k/cumm" xsi:type= "PQ" value="0.5" /> <referenceRange> <observationRange> <text>0.1-1.0</text> </observationRange> </ referenceRange> </observation> </component> <component> <observation moodCode="EVN" classCode="OBS"> <templateId root= "216.840.1.099182.10.20.22.4.2" /> <id nullFlavor="NA" /> < code codeSystem="local" code="MO%" displayName="MONOCYTE %" /> <statusCode code="completed" /> <effectiveTime value="441113940181" /> <value unit="%" xsi:type="PQ" value="7" /> < interpretationCode codeSystem="local" code="*" /> <referenceRange> <observationRange> <text>4-6</text> </ observationRange> </referenceRange> </observation> </ component> <component> <observation moodCode="EVN" classCode="OBS"> <templateId root="216.840.1.231875.10.20.22.4.2" /> <id nullFlavor="NA" /> <code codeSystem="local" code="MPVT" displayName= "MEAN PLATELET VOLUME" /> <statusCode code="completed" /> < effectiveTime value="204612790847" /> <value unit="fl" xsi:type="PQ" value="8.7" /> <referenceRange> <observationRange> <text>8.5-10.9</text> </observationRange> </ referenceRange> </observation> </component> <component> <observation moodCode="EVN" classCode="OBS"> <templateId root= "10.03.840.1.567691.10.20.22.4.2" /> <id nullFlavor="NA" /> < code codeSystem="local" code="RBC" displayName="RED BLOOD CELL" /> < statusCode code="completed" /> <effectiveTime value="" /> <value unit="m/cumm" xsi:type="PQ" value="4.17" /> < referenceRange> <observationRange> <text>4.00-6.00</text > </observationRange> </referenceRange> </observation > </component> <component> <observation moodCode="EVN" classCode="OBS"> <templateId root="10.03.840.1.222677.10.22.4.2" /> <id nullFlavor="NA" /> <code codeSystem="local" code="RDW" displayName="RED CELL DISTRIBUTION WIDTH" /> <statusCode code= "completed" /> <effectiveTime value="" /> <value unit="%" xsi:type="PQ" value="19.4" /> <interpretationCode codeSystem="local" code="*" /> <referenceRange> < observationRange> <text>11.0-15.6</text> </ observationRange> </referenceRange> </observation> </ component> <component> <observation moodCode="EVN" classCode="OBS"> <templateId root="10.03.840.1.696176.10.20.22.4.2" /> <id nullFlavor="NA" /> <code codeSystem="local" code="WBC" displayName= "WHITE BLOOD CELL" /> <statusCode code="completed" /> < effectiveTime value="" /> <value unit="k/cumm" xsi:type="PQ " value="7.3" /> <referenceRange> <observationRange> <text>5.0-10.0</text> </observationRange> </ referenceRange> </observation> </component> <component> <observation moodCode="EVN" classCode="OBS"> <templateId root= "10.03.840.1.374633.10..22.4.2" /> <id nullFlavor="NA" /> < code codeSystem="local" code="HGBT" displayName="HEMOGLOBIN" /> < statusCode code="completed" /> <effectiveTime value="677085674813" /> <value unit="gm/dL" xsi:type="PQ" value="9.8" /> < interpretationCode codeSystem="local" code="*" /> <referenceRange> <observationRange> <text>12.0-16.0</text> </ observationRange> </referenceRange> </observation> </ component> <component> <observation moodCode="EVN" classCode="OBS"> <templateId root="10.03.840.1.341360.10...4.2" /> <id nullFlavor="NA" /> <code codeSystem="local" code="HCTT" displayName= "HEMATOCRIT" /> <statusCode code="completed" /> < effectiveTime value="692953687879" /> <value unit="%" xsi:type="PQ " value="31.8" /> <interpretationCode codeSystem="local" code="*" /> <referenceRange> <observationRange> <text>37.0- 47.0</text> </observationRange> </referenceRange> </ observation> </component> <component> <observation moodCode= "EVN" classCode="OBS"> <templateId root="10.03.840.1.782793.10.20..4.2 " /> <id nullFlavor="NA" /> <code codeSystem="local" code= "PLTT" displayName="PLATELET COUNT" /> <statusCode code="completed" /> <effectiveTime value="" /> <value unit="k/cumm" xsi:type="PQ" value="361" /> <referenceRange> < observationRange> <text>150-400</text> </ observationRange> </referenceRange> </observation> </ component> </organizer> </entry> <entry> <organizer moodCode="EVN" classCode="BATTERY"> <templateId root="16.840.1.264835.10...4.1" /> <id nullFlavor="NA" /> <code codeSystem="local" code="MORPH" displayName="MORPHOLOGY" /> <statusCode code="completed" /> <component > <observation moodCode="EVN" classCode="OBS"> <templateId root= "16.840.1.153928.10...4.2" /> <id nullFlavor="NA" /> < code codeSystem="local" code="RMORPH" displayName="RBC MORPH" /> < statusCode code="completed" /> <effectiveTime value="" /> <value unit="" xsi:type="PQ" value="NOTED" /> <referenceRange > <observationRange> <text /> </ observationRange> </referenceRange> </observation> </ component> </organizer> </entry> <entry> <organizer moodCode="EVN" classCode="BATTERY"> <templateId root="16.840.1.579059.10...4.1" /> <id nullFlavor="NA" /> <code codeSystem="local" code="METABC" displayName="METABOLIC PANEL, COMPREHN" /> <statusCode code="completed" /> <component> <observation moodCode="EVN" classCode="OBS"> < templateId root="16.840.1.716760.10.4.2" /> <id nullFlavor="NA " /> <code codeSystem="local" code="K" displayName="POTASSIUM" /> <statusCode code="completed" /> <effectiveTime value="073341675237 " /> <value unit="mmol/L" xsi:type="PQ" value="4.4" /> < referenceRange> <observationRange> <text>3.5-5.3</text> </observationRange> </referenceRange> </observation > </component> <component> <observation moodCode="EVN" classCode="OBS"> <templateId root="10.03.840.1.126526.06.06.22.4.2" /> <id nullFlavor="NA" /> <code codeSystem="local" code="eGFR" displayName="EST GFR (MDRD)" /> <statusCode code="completed" /> <effectiveTime value="984846202020" /> <value unit="mL/min" xsi:type ="PQ" value="58" /> <interpretationCode codeSystem="local" code="*" /> <referenceRange> <observationRange> <text>&gt ; 59</text> </observationRange> </referenceRange> </ observation> </component> <component> <observation moodCode= "EVN" classCode="OBS"> <templateId root="10.03.840.1.711487.06.06.22.4.2 " /> <id nullFlavor="NA" /> <code codeSystem="local" code="GAP " displayName="ANION GAP" /> <statusCode code="completed" /> < effectiveTime value="088830121169" /> <value unit="mmol/L" xsi:type="PQ " value="9" /> <referenceRange> <observationRange> <text>5-15</text> </observationRange> </referenceRange > </observation> </component> <component> <observation moodCode="EVN" classCode="OBS"> <templateId root= "216.840.1.703084.10..22.4.2" /> <id nullFlavor="NA" /> < code codeSystem="local" code="eCrCl" displayName="EST CrCl (CG)" /> < statusCode code="completed" /> <effectiveTime value="723441043084" /> <value unit="mL/min" xsi:type="PQ" value="54" /> < interpretationCode codeSystem="local" code="*" /> <referenceRange> <observationRange> <text>> 59</text> </ observationRange> </referenceRange> </observation> </ component> <component> <observation moodCode="EVN" classCode="OBS"> <templateId root="10.03.840.1.553100.06.06.22.4.2" /> <id nullFlavor="NA" /> <code codeSystem="local" code="GLU" displayName= "GLUCOSE" /> <statusCode code="completed" /> <effectiveTime value="167432403969" /> <value unit="mg/dL" xsi:type="PQ" value="138" / > <interpretationCode codeSystem="local" code="*" /> < referenceRange> <observationRange> <text>70-99</text> </observationRange> </referenceRange> </observation> </component> <component> <observation moodCode="EVN" classCode= "OBS"> <templateId root="10.03.840.1.149200.10.22.4.2" /> < id nullFlavor="NA" /> <code codeSystem="local" code="CA" displayName= "CALCIUM" /> <statusCode code="completed" /> <effectiveTime value="128521308608" /> <value unit="mg/dL" xsi:type="PQ" value="9.4" / > <referenceRange> <observationRange> <text>8.5 -10.1</text> </observationRange> </referenceRange> </ observation> </component> <component> <observation moodCode= "EVN" classCode="OBS"> <templateId root="2.16.840.1.178633.10..22.4.2 " /> <id nullFlavor="NA" /> <code codeSystem="local" code="BUN " displayName="BLOOD UREA NITROGEN" /> <statusCode code="completed" /> <effectiveTime value="896851588014" /> <value unit="mg/dL" xsi:type="PQ" value="39" /> <interpretationCode codeSystem="local" code ="*" /> <referenceRange> <observationRange> < text>7-20</text> </observationRange> </referenceRange> </observation> </component> <component> <observation moodCode="EVN" classCode="OBS"> <templateId root= "216.840.1.985722.10...4.2" /> <id nullFlavor="NA" /> < code codeSystem="local" code="CREAT" displayName="CREATININE" /> < statusCode code="completed" /> <effectiveTime value="254480486482" /> <value unit="mg/dL" xsi:type="PQ" value="1.0" /> < referenceRange> <observationRange> <text>0.6-1.0</text> </observationRange> </referenceRange> </observation > </component> <component> <observation moodCode="EVN" classCode="OBS"> <templateId root="216.840.1.553183.10..22.4.2" /> <id nullFlavor="NA" /> <code codeSystem="local" code="NA" displayName="SODIUM" /> <statusCode code="completed" /> < effectiveTime value="" /> <value unit="mmol/L" xsi:type="PQ " value="133" /> <interpretationCode codeSystem="local" code="*" /> <referenceRange> <observationRange> <text>135-148 </text> </observationRange> </referenceRange> </ observation> </component> <component> <observation moodCode= "EVN" classCode="OBS"> <templateId root="216.840.1.360280...4.2 " /> <id nullFlavor="NA" /> <code codeSystem="local" code="CL " displayName="CHLORIDE" /> <statusCode code="completed" /> < effectiveTime value="" /> <value unit="mmol/L" xsi:type="PQ " value="100" /> <referenceRange> <observationRange> <text>98-110</text> </observationRange> </ referenceRange> </observation> </component> <component> <observation moodCode="EVN" classCode="OBS"> <templateId root= "216.840.1.144590.10..22.4.2" /> <id nullFlavor="NA" /> < code codeSystem="local" code="AST" displayName="AST/SGOT" /> < statusCode code="completed" /> <effectiveTime value="529774964499" /> <value unit="Units/L" xsi:type="PQ" value="20" /> < referenceRange> <observationRange> <text>10-37</text> </observationRange> </referenceRange> </observation> </component> <component> <observation moodCode="EVN" classCode= "OBS"> <templateId root="216.840.1.350939.10..22.4.2" /> < id nullFlavor="NA" /> <code codeSystem="local" code="ALT" displayName= "ALT/SGPT" /> <statusCode code="completed" /> <effectiveTime value="942031120270" /> <value unit="Units/L" xsi:type="PQ" value="29" /> <referenceRange> <observationRange> <text>& lt; 66</text> </observationRange> </referenceRange> < /observation> </component> <component> <observation moodCode= "EVN" classCode="OBS"> <templateId root="10.03.840.1.805982.10.4.2 " /> <id nullFlavor="NA" /> <code codeSystem="local" code="CO2 " displayName="CARBON DIOXIDE" /> <statusCode code="completed" /> <effectiveTime value="613372301598" /> <value unit="mmol/L" xsi: type="PQ" value="24" /> <referenceRange> <observationRange> <text>21-32</text> </observationRange> </ referenceRange> </observation> </component> <component> <observation moodCode="EVN" classCode="OBS"> <templateId root= "10.03.840.1.708620.10.4.2" /> <id nullFlavor="NA" /> < code codeSystem="local" code="TP" displayName="TOTAL PROTEIN" /> < statusCode code="completed" /> <effectiveTime value="109383527342" /> <value unit="gm/dL" xsi:type="PQ" value="7.5" /> < referenceRange> <observationRange> <text>6.4-8.2</text> </observationRange> </referenceRange> </observation > </component> <component> <observation moodCode="EVN" classCode="OBS"> <templateId root="216.840.1.585523.10..4.2" /> <id nullFlavor="NA" /> <code codeSystem="local" code="ALB" displayName="ALBUMIN" /> <statusCode code="completed" /> < effectiveTime value="997202280153" /> <value unit="gm/dL" xsi:type="PQ " value="3.4" /> <referenceRange> <observationRange> <text>3.4-5.0</text> </observationRange> </ referenceRange> </observation> </component> <component> <observation moodCode="EVN" classCode="OBS"> <templateId root= "16.840.1.660905.10..4.2" /> <id nullFlavor="NA" /> < code codeSystem="local" code="BILTOT" displayName="BILI TOTAL" /> < statusCode code="completed" /> <effectiveTime value="350772134173" /> <value unit="mg/dL" xsi:type="PQ" value="< 0.1" /> < referenceRange> <observationRange> <text>0.0-1.0</text> </observationRange> </referenceRange> </observation > </component> <component> <observation moodCode="EVN" classCode="OBS"> <templateId root="2.16.840.1.561218.10..22.4.2" /> <id nullFlavor="NA" /> <code codeSystem="local" code="ALKP" displayName="ALKALINE PHOSPHATASE TOTAL" /> <statusCode code="completed " /> <effectiveTime value="598423371382" /> <value unit="IU/L " xsi:type="PQ" value="100" /> <referenceRange> < observationRange> <text>45-117</text> </observationRange > </referenceRange> </observation> </component> </ organizer> </entry> <entry> <organizer moodCode="EVN" classCode="BATTERY"> <templateId root="216.840.1.101597.10...4.1" /> <id nullFlavor= "NA" /> <code codeSystem="local" code="TROPI" displayName="TROPONIN I" /> <statusCode code="completed" /> <component> <observation moodCode="EVN" classCode="OBS"> <templateId root= "216.840.1.006988.10..22.4.2" /> <id nullFlavor="NA" /> < code codeSystem="local" code="TROPI" displayName="TROPONIN I" /> < statusCode code="completed" /> <effectiveTime value="[id number]" /> <value unit="ng/mL" xsi:type="PQ" value="< 0.02" /> < referenceRange> <observationRange> <text>< 0.07</text > </observationRange> </referenceRange> </observation > </component> </organizer> </entry> <entry> <organizer moodCode= "EVN" classCode="BATTERY"> <templateId root="216.840.1.072770.10..22.4.1 " /> <id nullFlavor="NA" /> <code codeSystem="local" code="DIMER" displayName="D-DIMER QUANT" /> <statusCode code="completed" /> < component> <observation moodCode="EVN" classCode="OBS"> < templateId root="16.840.1.460945.10.4.2" /> <id nullFlavor="NA " /> <code codeSystem="local" code="DIMER" displayName="D-DIMER QUANT" /> <statusCode code="completed" /> <effectiveTime value= "[id number]" /> <value unit="ng/mL" xsi:type="PQ" value="934" /> <interpretationCode codeSystem="local" code="*" /> < referenceRange> <observationRange> <text>< 612</text > </observationRange> </referenceRange> </observation > </component> </organizer> </entry> <entry> <organizer moodCode= "EVN" classCode="BATTERY"> <templateId root="16.840.1.771642.06.06.22.4.1 " /> <id nullFlavor="NA" /> <code codeSystem="local" code="iCHEM8" displayName="CHEM/HEM PROFILE-BEDSIDE" /> <statusCode code="completed" /> <component> <observation moodCode="EVN" classCode="OBS"> < templateId root="16.840.1.631817.06.06.22.4.2" /> <id nullFlavor="NA " /> <code codeSystem="local" code="K" displayName="POTASSIUM" /> <statusCode code="completed" /> <effectiveTime value="[id number] " /> <value unit="mmol/L" xsi:type="PQ" value="3.7" /> < referenceRange> <observationRange> <text>3.5-5.3</text> </observationRange> </referenceRange> </observation > </component> <component> <observation moodCode="EVN" classCode="OBS"> <templateId root="216.840.1.817282.10.22.4.2" /> <id nullFlavor="NA" /> <code codeSystem="local" code="CMETHOD " displayName="METHOD" /> <statusCode code="completed" /> < effectiveTime value="" /> <value unit="" xsi:type="PQ" value="Bedside" /> <referenceRange> <observationRange> <text /> </observationRange> </referenceRange> </observation> </component> <component> <observation moodCode="EVN" classCode="OBS"> <templateId root= "216.840.1.381588...4.2" /> <id nullFlavor="NA" /> < code codeSystem="local" code="GAP" displayName="ANION GAP" /> < statusCode code="completed" /> <effectiveTime value="" /> <value unit="mmol/L" xsi:type="PQ" value="21" /> < interpretationCode codeSystem="local" code="*" /> <referenceRange> <observationRange> <text>10-20</text> </ observationRange> </referenceRange> </observation> </ component> <component> <observation moodCode="EVN" classCode="OBS"> <templateId root="216.840.1.447630.10..4.2" /> <id nullFlavor="NA" /> <code codeSystem="local" code="HMETHOD" displayName= "METHOD" /> <statusCode code="completed" /> <effectiveTime value="" /> <value unit="" xsi:type="PQ" value="Bedside" / > <referenceRange> <observationRange> <text /> </observationRange> </referenceRange> </observation > </component> <component> <observation moodCode="EVN" classCode="OBS"> <templateId root="16.840.1.643394.10.20.22.4.2" /> <id nullFlavor="NA" /> <code codeSystem="local" code="GLU" displayName="GLUCOSE" /> <statusCode code="completed" /> < effectiveTime value="634478048414" /> <value unit="mg/dL" xsi:type="PQ " value="101" /> <interpretationCode codeSystem="local" code="*" /> <referenceRange> <observationRange> <text>70-99</ text> </observationRange> </referenceRange> </ observation> </component> <component> <observation moodCode= "EVN" classCode="OBS"> <templateId root="840.1.064848.10..4.2 " /> <id nullFlavor="NA" /> <code codeSystem="local" code="BUN " displayName="BLOOD UREA NITROGEN" /> <statusCode code="completed" /> <effectiveTime value="" /> <value unit="mg/dL" xsi:type="PQ" value="17" /> <referenceRange> < observationRange> <text>7-20</text> </observationRange> </referenceRange> </observation> </component> < component> <observation moodCode="EVN" classCode="OBS"> < templateId root="10.03.840.1.811722.10.20.22.4.2" /> <id nullFlavor="NA " /> <code codeSystem="local" code="CREAT" displayName="CREATININE" /> <statusCode code="completed" /> <effectiveTime value= "443733044787" /> <value unit="mg/dL" xsi:type="PQ" value="0.7" /> <referenceRange> <observationRange> <text>0.6-1.0< /text> </observationRange> </referenceRange> </ observation> </component> <component> <observation moodCode= "EVN" classCode="OBS"> <templateId root="2.16.840.1.432095.10.20.22.4.2 " /> <id nullFlavor="NA" /> <code codeSystem="local" code= "HGBT" displayName="HEMOGLOBIN" /> <statusCode code="completed" /> <effectiveTime value="455968236310" /> <value unit="gm/dL" xsi: type="PQ" value="9.5" /> <interpretationCode codeSystem="local" code="* " /> <referenceRange> <observationRange> <text> 12.0-16.0</text> </observationRange> </referenceRange> </observation> </component> <component> <observation moodCode="EVN" classCode="OBS"> <templateId root= "2.16.840.1.269960.10.20.22.4.2" /> <id nullFlavor="NA" /> < code codeSystem="local" code="HCTT" displayName="HEMATOCRIT" /> < statusCode code="completed" /> <effectiveTime value="180184198576" /> <value unit="%" xsi:type="PQ" value="28.0" /> < interpretationCode codeSystem="local" code="*" /> <referenceRange> <observationRange> <text>37.0-47.0</text> </ observationRange> </referenceRange> </observation> </ component> <component> <observation moodCode="EVN" classCode="OBS"> <templateId root="216.840.1.660647.10.20.22.4.2" /> <id nullFlavor="NA" /> <code codeSystem="local" code="NA" displayName= "SODIUM" /> <statusCode code="completed" /> <effectiveTime value="" /> <value unit="mmol/L" xsi:type="PQ" value="136" /> <referenceRange> <observationRange> <text> 135-148</text> </observationRange> </referenceRange> </observation> </component> <component> <observation moodCode= "EVN" classCode="OBS"> <templateId root="216.840.1.406860.10...4.2 " /> <id nullFlavor="NA" /> <code codeSystem="local" code="CL " displayName="CHLORIDE" /> <statusCode code="completed" /> < effectiveTime value="" /> <value unit="mmol/L" xsi:type="PQ " value="95" /> <interpretationCode codeSystem="local" code="*" /> <referenceRange> <observationRange> <text>98-110</ text> </observationRange> </referenceRange> </ observation> </component> <component> <observation moodCode= "EVN" classCode="OBS"> <templateId root="16.840.1.092659.10..22.4.2 " /> <id nullFlavor="NA" /> <code codeSystem="local" code="CO2 " displayName="CARBON DIOXIDE" /> <statusCode code="completed" /> <effectiveTime value="093548294909" /> <value unit="mmol/L" xsi: type="PQ" value="24" /> <referenceRange> <observationRange> <text>21-32</text> </observationRange> </ referenceRange> </observation> </component> <component> <observation moodCode="EVN" classCode="OBS"> <templateId root= "2.16.840.1.166829.10.22.4.2" /> <id nullFlavor="NA" /> < code codeSystem="local" code="CAION" displayName="CALCIUM IONIZED" /> < statusCode code="completed" /> <effectiveTime value="866708333734" /> <value unit="mg/dL" xsi:type="PQ" value="TEST NOT PERFORMED" /> <referenceRange> <observationRange> <text>4.5-5.3</ text> </observationRange> </referenceRange> </ observation> </component> </organizer> </entry> <entry> <organizer moodCode="EVN" classCode="BATTERY"> <templateId root= "2.16.840.1.026069.10..22.4.1" /> <id nullFlavor="NA" /> <code codeSystem="local" code="iTROPI" displayName="TROPONIN I BEDSIDE" /> < statusCode code="completed" /> <component> <observation moodCode= "EVN" classCode="OBS"> <templateId root="2.16.840.1.040978.10..22.4.2 " /> <id nullFlavor="NA" /> <code codeSystem="local" code= "CMETHOD" displayName="METHOD" /> <statusCode code="completed" /> <effectiveTime value="487815491461" /> <value unit="" xsi:type="PQ " value="Bedside" /> <referenceRange> <observationRange> <text /> </observationRange> </referenceRange> </observation> </component> <component> <observation moodCode="EVN" classCode="OBS"> <templateId root= "10.03.840.1.553290.10..22.4.2" /> <id nullFlavor="NA" /> < code codeSystem="local" code="TROPI" displayName="TROPONIN I" /> < statusCode code="completed" /> <effectiveTime value="013400434849" /> <value unit="ng/mL" xsi:type="PQ" value="< 0.04" /> < referenceRange> <observationRange> <text>< 0.11</text > </observationRange> </referenceRange> </observation > </component> </organizer> </entry> <entry> <organizer moodCode= "EVN" classCode="BATTERY"> <templateId root="840.1.414680.10..22.4.1 " /> <id nullFlavor="NA" /> <code codeSystem="local" code="CBCD" displayName="CBC W/DIFF" /> <statusCode code="completed" /> <component > <observation moodCode="EVN" classCode="OBS"> <templateId root= "10.03.840.1.053446.10..22.4.2" /> <id nullFlavor="NA" /> < code codeSystem="local" code="BA#" displayName="BASOPHIL #" /> < statusCode code="completed" /> <effectiveTime value="304851271327" /> <value unit="k/cumm" xsi:type="PQ" value="0.1" /> < referenceRange> <observationRange> <text>0.0-0.2</text> </observationRange> </referenceRange> </observation > </component> <component> <observation moodCode="EVN" classCode="OBS"> <templateId root="10.03.840.1.389161.06.06.22.4.2" /> <id nullFlavor="NA" /> <code codeSystem="local" code="BA% " displayName="BASOPHIL %" /> <statusCode code="completed" /> <effectiveTime value="" /> <value unit="%" xsi: type="PQ" value="1" /> <referenceRange> <observationRange> <text>0-1</text> </observationRange> </ referenceRange> </observation> </component> <component> <observation moodCode="EVN" classCode="OBS"> <templateId root= "2.16.840.1.071095.06.06.22.4.2" /> <id nullFlavor="NA" /> < code codeSystem="local" code="EO#" displayName="EOSINOPHIL #" /> < statusCode code="completed" /> <effectiveTime value="" /> <value unit="k/cumm" xsi:type="PQ" value="0.1" /> < referenceRange> <observationRange> <text>0.1-0.5</text> </observationRange> </referenceRange> </observation > </component> <component> <observation moodCode="EVN" classCode="OBS"> <templateId root="2.16.840.1.646189.06.06.22.4.2" /> <id nullFlavor="NA" /> <code codeSystem="local" code="EO% " displayName="EOSINOPHIL %" /> <statusCode code="completed" /> <effectiveTime value="" /> <value unit="%" xsi: type="PQ" value="3" /> <referenceRange> <observationRange> <text>2-4</text> </observationRange> </ referenceRange> </observation> </component> <component> <observation moodCode="EVN" classCode="OBS"> <templateId root= "10.03.840.1.973256.06.06.224.2" /> <id nullFlavor="NA" /> < code codeSystem="local" code="GR#" displayName="GRANULOCYTE #" /> < statusCode code="completed" /> <effectiveTime value="" /> <value unit="k/cumm" xsi:type="PQ" value="1.9" /> < interpretationCode codeSystem="local" code="*" /> <referenceRange> <observationRange> <text>2.0-9.0</text> </ observationRange> </referenceRange> </observation> </ component> <component> <observation moodCode="EVN" classCode="OBS"> <templateId root="10.03.840.1.366249.06.06.224.2" /> <id nullFlavor="NA" /> <code codeSystem="local" code="GR%" displayName= "GRANULOCYTE %" /> <statusCode code="completed" /> < effectiveTime value="" /> <value unit="%" xsi:type="PQ " value="40" /> <interpretationCode codeSystem="local" code="*" /> <referenceRange> <observationRange> <text>50-75</ text> </observationRange> </referenceRange> </ observation> </component> <component> <observation moodCode= "EVN" classCode="OBS"> <templateId root="10.03.840.1.725605.06.06.22.4.2 " /> <id nullFlavor="NA" /> <code codeSystem="local" code="LY# " displayName="LYMPHOCYTE #" /> <statusCode code="completed" /> <effectiveTime value="245512039788" /> <value unit="k/cumm" xsi:type ="PQ" value="2.0" /> <referenceRange> <observationRange> <text>1.0-4.0</text> </observationRange> </ referenceRange> </observation> </component> <component> <observation moodCode="EVN" classCode="OBS"> <templateId root= "16.840.1.166445.10..22.4.2" /> <id nullFlavor="NA" /> < code codeSystem="local" code="LY%" displayName="LYMPHOCYTE %" /> <statusCode code="completed" /> <effectiveTime value="186062895781" /> <value unit="%" xsi:type="PQ" value="41" /> < interpretationCode codeSystem="local" code="*" /> <referenceRange> <observationRange> <text>20-30</text> </ observationRange> </referenceRange> </observation> </ component> <component> <observation moodCode="EVN" classCode="OBS"> <templateId root="16.840.1.351036.10.20.22.4.2" /> <id nullFlavor="NA" /> <code codeSystem="local" code="MCH" displayName= "MEAN CELL HGB" /> <statusCode code="completed" /> < effectiveTime value="" /> <value unit="pg" xsi:type="PQ" value="24.5" /> <interpretationCode codeSystem="local" code="*" /> <referenceRange> <observationRange> <text>27.0- 33.0</text> </observationRange> </referenceRange> </ observation> </component> <component> <observation moodCode= "EVN" classCode="OBS"> <templateId root="10.03.840.1.591043.10.22.4.2 " /> <id nullFlavor="NA" /> <code codeSystem="local" code= "MCHC" displayName="MEAN CELL HGB CONCENTRATION" /> <statusCode code= "completed" /> <effectiveTime value="" /> <value unit="g/dL" xsi:type="PQ" value="31.1" /> <interpretationCode codeSystem="local" code="*" /> <referenceRange> < observationRange> <text>32.0-37.0</text> </ observationRange> </referenceRange> </observation> </ component> <component> <observation moodCode="EVN" classCode="OBS"> <templateId root="10.03.840.1.359396.1022.4.2" /> <id nullFlavor="NA" /> <code codeSystem="local" code="MCV" displayName= "MEAN CELL VOLUME" /> <statusCode code="completed" /> < effectiveTime value="" /> <value unit="fl" xsi:type="PQ" value="78.7" /> <interpretationCode codeSystem="local" code="*" /> <referenceRange> <observationRange> <text>80.0- 100.0</text> </observationRange> </referenceRange> </ observation> </component> <component> <observation moodCode= "EVN" classCode="OBS"> <templateId root="10.03.840.1.474181.102022.4.2 " /> <id nullFlavor="NA" /> <code codeSystem="local" code="MO# " displayName="MONOCYTE #" /> <statusCode code="completed" /> <effectiveTime value="" /> <value unit="k/cumm" xsi:type= "PQ" value="0.7" /> <referenceRange> <observationRange> <text>0.1-1.0</text> </observationRange> </ referenceRange> </observation> </component> <component> <observation moodCode="EVN" classCode="OBS"> <templateId root= "10.03.840.1.432329.1022.4.2" /> <id nullFlavor="NA" /> < code codeSystem="local" code="MO%" displayName="MONOCYTE %" /> <statusCode code="completed" /> <effectiveTime value="" /> <value unit="%" xsi:type="PQ" value="15" /> < interpretationCode codeSystem="local" code="*" /> <referenceRange> <observationRange> <text>4-6</text> </ observationRange> </referenceRange> </observation> </ component> <component> <observation moodCode="EVN" classCode="OBS"> <templateId root="10.03.840.1.050806.06.06.22.4.2" /> <id nullFlavor="NA" /> <code codeSystem="local" code="MPVT" displayName= "MEAN PLATELET VOLUME" /> <statusCode code="completed" /> < effectiveTime value="" /> <value unit="fl" xsi:type="PQ" value="8.8" /> <referenceRange> <observationRange> <text>8.5-10.9</text> </observationRange> </ referenceRange> </observation> </component> <component> <observation moodCode="EVN" classCode="OBS"> <templateId root= "10.03.840.1.371246.06.06.22.4.2" /> <id nullFlavor="NA" /> < code codeSystem="local" code="RBC" displayName="RED BLOOD CELL" /> < statusCode code="completed" /> <effectiveTime value="" /> <value unit="m/cumm" xsi:type="PQ" value="3.43" /> < interpretationCode codeSystem="local" code="*" /> <referenceRange> <observationRange> <text>4.00-6.00</text> </ observationRange> </referenceRange> </observation> </ component> <component> <observation moodCode="EVN" classCode="OBS"> <templateId root="216.840.1.285178.06.06.224.2" /> <id nullFlavor="NA" /> <code codeSystem="local" code="RDW" displayName=" RED CELL DISTRIBUTION WIDTH" /> <statusCode code="completed" /> <effectiveTime value="" /> <value unit="%" xsi:type= "PQ" value="19.5" /> <interpretationCode codeSystem="local" code="*" / > <referenceRange> <observationRange> <text> 11.0-15.6</text> </observationRange> </referenceRange> </observation> </component> <component> <observation moodCode="EVN" classCode="OBS"> <templateId root= "216.840.1.583770.10.4.2" /> <id nullFlavor="NA" /> < code codeSystem="local" code="WBC" displayName="WHITE BLOOD CELL" /> < statusCode code="completed" /> <effectiveTime value="" /> <value unit="k/cumm" xsi:type="PQ" value="4.8" /> < interpretationCode codeSystem="local" code="*" /> <referenceRange> <observationRange> <text>5.0-10.0</text> </ observationRange> </referenceRange> </observation> </ component> <component> <observation moodCode="EVN" classCode="OBS"> <templateId root="216.840.1.619395.10...4.2" /> <id nullFlavor="NA" /> <code codeSystem="local" code="HGBT" displayName= "HEMOGLOBIN" /> <statusCode code="completed" /> < effectiveTime value="" /> <value unit="gm/dL" xsi:type="PQ " value="8.4" /> <interpretationCode codeSystem="local" code="*" /> <referenceRange> <observationRange> <text>12.0- 16.0</text> </observationRange> </referenceRange> </ observation> </component> <component> <observation moodCode= "EVN" classCode="OBS"> <templateId root="10.03.840.1.213279.10...4.2 " /> <id nullFlavor="NA" /> <code codeSystem="local" code= "HCTT" displayName="HEMATOCRIT" /> <statusCode code="completed" /> <effectiveTime value="" /> <value unit="%" xsi: type="PQ" value="27.0" /> <interpretationCode codeSystem="local" code= "*" /> <referenceRange> <observationRange> < text>37.0-47.0</text> </observationRange> </referenceRange> </observation> </component> <component> <observation moodCode="EVN" classCode="OBS"> <templateId root= "216.840.1.698203.10.4.2" /> <id nullFlavor="NA" /> < code codeSystem="local" code="PLTT" displayName="PLATELET COUNT" /> < statusCode code="completed" /> <effectiveTime value="" /> <value unit="k/cumm" xsi:type="PQ" value="387" /> < referenceRange> <observationRange> <text>150-400</text> </observationRange> </referenceRange> </observation > </component> </organizer> </entry> <entry> <organizer moodCode= "EVN" classCode="BATTERY"> <templateId root="16.840.1.459153.06.06.224.1 " /> <id nullFlavor="NA" /> <code codeSystem="local" code="MORPH" displayName="MORPHOLOGY" /> <statusCode code="completed" /> <component > <observation moodCode="EVN" classCode="OBS"> <templateId root= "16.840.1.518884.06.06.22.4.2" /> <id nullFlavor="NA" /> < code codeSystem="local" code="RMORPH" displayName="RBC MORPH" /> < statusCode code="completed" /> <effectiveTime value="" /> <value unit="" xsi:type="PQ" value="NOTED" /> <referenceRange > <observationRange> <text /> </ observationRange> </referenceRange> </observation> </ component> </organizer> </entry> <entry> <organizer moodCode="EVN" classCode="BATTERY"> <templateId root="16.840.1.521775.06.06.22.4.1" /> <id nullFlavor="NA" /> <code codeSystem="local" code="LIVER" displayName="HEPATIC FUNCTION PANEL" /> <statusCode code="completed" /> <component> <observation moodCode="EVN" classCode="OBS"> < templateId root="216.840.1.148385.10...4.2" /> <id nullFlavor="NA " /> <code codeSystem="local" code="BILUC" displayName="BILI UNCONJUGATED" /> <statusCode code="completed" /> < effectiveTime value="" /> <value unit="mg/dL" xsi:type="PQ " value="0.0" /> <referenceRange> <observationRange> <text>0.0-0.7</text> </observationRange> </ referenceRange> </observation> </component> <component> <observation moodCode="EVN" classCode="OBS"> <templateId root= "2.840.1.066303.06.06.22.4.2" /> <id nullFlavor="NA" /> < code codeSystem="local" code="AST" displayName="AST/SGOT" /> < statusCode code="completed" /> <effectiveTime value="" /> <value unit="Units/L" xsi:type="PQ" value="17" /> < referenceRange> <observationRange> <text>10-37</text> </observationRange> </referenceRange> </observation> </component> <component> <observation moodCode="EVN" classCode= "OBS"> <templateId root="216.840.1.796087.10...4.2" /> < id nullFlavor="NA" /> <code codeSystem="local" code="ALT" displayName= "ALT/SGPT" /> <statusCode code="completed" /> <effectiveTime value="" /> <value unit="Units/L" xsi:type="PQ" value="22" /> <referenceRange> <observationRange> <text>& lt; 66</text> </observationRange> </referenceRange> < /observation> </component> <component> <observation moodCode= "EVN" classCode="OBS"> <templateId root="10.03.840.1.928306.10.20.22.4.2 " /> <id nullFlavor="NA" /> <code codeSystem="local" code="TP " displayName="TOTAL PROTEIN" /> <statusCode code="completed" /> <effectiveTime value="" /> <value unit="gm/dL" xsi:type ="PQ" value="6.4" /> <referenceRange> <observationRange> <text>6.4-8.2</text> </observationRange> </ referenceRange> </observation> </component> <component> <observation moodCode="EVN" classCode="OBS"> <templateId root= "840.1.392063.06.06.22.4.2" /> <id nullFlavor="NA" /> < code codeSystem="local" code="ALB" displayName="ALBUMIN" /> < statusCode code="completed" /> <effectiveTime value="" /> <value unit="gm/dL" xsi:type="PQ" value="2.9" /> < interpretationCode codeSystem="local" code="*" /> <referenceRange> <observationRange> <text>3.4-5.0</text> </ observationRange> </referenceRange> </observation> </ component> <component> <observation moodCode="EVN" classCode="OBS"> <templateId root="10.03.840.1.920534.10..22.4.2" /> <id nullFlavor="NA" /> <code codeSystem="local" code="BILTOT" displayName= "BILI TOTAL" /> <statusCode code="completed" /> < effectiveTime value="" /> <value unit="mg/dL" xsi:type="PQ " value="< 0.1" /> <referenceRange> <observationRange> <text>0.0-1.0</text> </observationRange> </ referenceRange> </observation> </component> <component> <observation moodCode="EVN" classCode="OBS"> <templateId root= "2.16.840.1.279460.10.20.22.4.2" /> <id nullFlavor="NA" /> < code codeSystem="local" code="ALKP" displayName="ALKALINE PHOSPHATASE TOTAL" /> <statusCode code="completed" /> <effectiveTime value= "" /> <value unit="IU/L" xsi:type="PQ" value="80" /> <referenceRange> <observationRange> <text>45-117</ text> </observationRange> </referenceRange> </ observation> </component> <component> <observation moodCode= "EVN" classCode="OBS"> <templateId root="2.16.840.1.693407.10..22.4.2 " /> <id nullFlavor="NA" /> <code codeSystem="local" code= "BILC" displayName="BILI CONJUGATED" /> <statusCode code="completed" / > <effectiveTime value="" /> <value unit="mg/dL" xsi:type="PQ" value="< 0.1" /> <referenceRange> < observationRange> <text>0.0-0.3</text> </ observationRange> </referenceRange> </observation> </ component> </organizer> </entry> <entry> <organizer moodCode="EVN" classCode="BATTERY"> <templateId root="10.03.840.1.851925.06.06.22.4.1" /> <id nullFlavor="NA" /> <code codeSystem="local" code="LIP" displayName ="LIPASE" /> <statusCode code="completed" /> <component> < observation moodCode="EVN" classCode="OBS"> <templateId root= "840.1.163763.06.06.22.4.2" /> <id nullFlavor="NA" /> < code codeSystem="local" code="LIP" displayName="LIPASE" /> <statusCode code="completed" /> <effectiveTime value="[id number]" /> < value unit="Units/L" xsi:type="PQ" value="92" /> <referenceRange> <observationRange> <text>73-393</text> </ observationRange> </referenceRange> </observation> </ component> </organizer> </entry> <entry> <organizer moodCode="EVN" classCode="BATTERY"> <templateId root="840.1.970127.06.06.22.4.1" /> <id nullFlavor="NA" /> <code codeSystem="local" code="ACTMN" displayName="ACETAMINOPHEN (TYLENOL)" /> <statusCode code="completed" /> <component> <observation moodCode="EVN" classCode="OBS"> < templateId root="10.03.840.1.719908.06.06.22.4.2" /> <id nullFlavor="NA " /> <code codeSystem="local" code="ACTMN" displayName="ACETAMINOPHEN ( TYLENOL)" /> <statusCode code="completed" /> <effectiveTime value="[id number]" /> <value unit="mcg/mL" xsi:type="PQ" value="< 2" /> <referenceRange> <observationRange> <text >10-30</text> </observationRange> </referenceRange> < /observation> </component> </organizer> </entry> <entry> < organizer moodCode="EVN" classCode="BATTERY"> <templateId root= "16.840.1.030998.10..22.4.1" /> <id nullFlavor="NA" /> <code codeSystem="local" code="SALI" displayName="SALICYLATE (ASPIRIN)" /> < statusCode code="completed" /> <component> <observation moodCode= "EVN" classCode="OBS"> <templateId root="10.03.840.1.134553..22.4.2 " /> <id nullFlavor="NA" /> <code codeSystem="local" code= "SALINUM" displayName="SALICYLATE" /> <statusCode code="completed" /> <effectiveTime value="056387273582" /> <value unit="mg/dL" xsi :type="PQ" value="< 2.8" /> <referenceRange> < observationRange> <text>2.8-29.0</text> </ observationRange> </referenceRange> </observation> </ component> </organizer> </entry> <entry> <organizer moodCode="EVN" classCode="BATTERY"> <templateId root="10.03.840.1.437176.10.22.4.1" /> <id nullFlavor="NA" /> <code codeSystem="local" code="DRUGAB" displayName="UR DRUGS OF ABUSE SCREEN" /> <statusCode code="completed" /> <component> <observation moodCode="EVN" classCode="OBS"> < templateId root="10.03.840.1.526301.06.06.22.4.2" /> <id nullFlavor="NA " /> <code codeSystem="local" code="AMPHU" displayName="UR AMPHETAMINES SCREEN" /> <statusCode code="completed" /> < effectiveTime value="581606537145" /> <value unit="" xsi:type="PQ" value="POS (>1000 ng/mL)" /> <referenceRange> < observationRange> <text>NEGATIVE</text> </ observationRange> </referenceRange> </observation> </ component> <component> <observation moodCode="EVN" classCode="OBS"> <templateId root="2.16.840.1.063821.10..22.4.2" /> <id nullFlavor="NA" /> <code codeSystem="local" code="BARBU" displayName= "UR BARBITURATE SCREEN" /> <statusCode code="completed" /> < effectiveTime value="981845162353" /> <value unit="" xsi:type="PQ" value="NEG (< 200 ng/mL)" /> <referenceRange> < observationRange> <text>NEGATIVE</text> </ observationRange> </referenceRange> </observation> </ component> <component> <observation moodCode="EVN" classCode="OBS"> <templateId root="2.16.840.1.146383.10..22.4.2" /> <id nullFlavor="NA" /> <code codeSystem="local" code="DAUCOMMENT" displayName="DRUGS OF ABUSE SCREEN COMMENT" /> <statusCode code= "completed" /> <effectiveTime value="" /> <value unit="" xsi:type="PQ" value="" /> <referenceRange> < observationRange> <text /> </observationRange> </referenceRange> </observation> </component> <component> <observation moodCode="EVN" classCode="OBS"> <templateId root= "2.16.840.1.362745.10..22.4.2" /> <id nullFlavor="NA" /> < code codeSystem="local" code="OPIU" displayName="UR OPIATES SCREEN" /> <statusCode code="completed" /> <effectiveTime value="715990315255" /> <value unit="" xsi:type="PQ" value="NEG (< 300 ng/mL)" /> <referenceRange> <observationRange> <text>NEGATIVE</ text> </observationRange> </referenceRange> </ observation> </component> <component> <observation moodCode= "EVN" classCode="OBS"> <templateId root="2.16.840.1.101732.10..4.2 " /> <id nullFlavor="NA" /> <code codeSystem="local" code= "PCPU" displayName="UR PHENCYCLIDINE (PCP) SCREEN" /> <statusCode code= "completed" /> <effectiveTime value="338692275172" /> <value unit="" xsi:type="PQ" value="NEG (< 25 ng/mL)" /> <referenceRange > <observationRange> <text>NEGATIVE</text> </ observationRange> </referenceRange> </observation> </ component> <component> <observation moodCode="EVN" classCode="OBS"> <templateId root="216.840.1.668080.10..22.4.2" /> <id nullFlavor="NA" /> <code codeSystem="local" code="THCU" displayName=" UR CANNABINOIDS (THC) SCREEN" /> <statusCode code="completed" /> <effectiveTime value="658962316478" /> <value unit="" xsi:type="PQ " value="NEG (< 50 ng/mL)" /> <referenceRange> < observationRange> <text>NEGATIVE</text> </ observationRange> </referenceRange> </observation> </ component> <component> <observation moodCode="EVN" classCode="OBS"> <templateId root="216.840.1.234921.10.20.22.4.2" /> <id nullFlavor="NA" /> <code codeSystem="local" code="COCAU" displayName= "UR COCAINE METABOLITE SCREEN" /> <statusCode code="completed" /> <effectiveTime value="309536113725" /> <value unit="" xsi:type="PQ " value="NEG (< 300 ng/mL)" /> <referenceRange> < observationRange> <text>NEGATIVE</text> </ observationRange> </referenceRange> </observation> </ component> <component> <observation moodCode="EVN" classCode="OBS"> <templateId root="16.840.1.513058.10..22.4.2" /> <id nullFlavor="NA" /> <code codeSystem="local" code="METHU" displayName= "UR METHADONE SCREEN" /> <statusCode code="completed" /> < effectiveTime value="921948897029" /> <value unit="" xsi:type="PQ" value="NEG (< 300 ng/mL)" /> <referenceRange> < observationRange> <text>NEGATIVE</text> </ observationRange> </referenceRange> </observation> </ component> <component> <observation moodCode="EVN" classCode="OBS"> <templateId root="216.840.1.499208.10.20.22.4.2" /> <id nullFlavor="NA" /> <code codeSystem="local" code="BENZU" displayName= "UR BENZODIAZEPINE SCREEN" /> <statusCode code="completed" /> <effectiveTime value="652138777955" /> <value unit="" xsi:type="PQ" value="NEG (< 200 ng/mL)" /> <referenceRange> < observationRange> <text>NEGATIVE</text> </ observationRange> </referenceRange> </observation> </ component> </organizer> </entry> <entry> <organizer moodCode="EVN" classCode="BATTERY"> <templateId root="216.840.1.423358.10..22.4.1" /> <id nullFlavor="NA" /> <code codeSystem="local" code="UA" displayName= "URINALYSIS, ROUTINE" /> <statusCode code="completed" /> <component> <observation moodCode="EVN" classCode="OBS"> <templateId root= "216.840.1.436480.10...4.2" /> <id nullFlavor="NA" /> < code codeSystem="local" code="LEUESU" displayName="UA LEUKOCYTE ESTERASE DIPSTICK" /> <statusCode code="completed" /> <effectiveTime value="" /> <value unit="" xsi:type="PQ" value="NEGATIVE" / > <referenceRange> <observationRange> <text> NEGATIVE</text> </observationRange> </referenceRange> </observation> </component> <component> <observation moodCode ="EVN" classCode="OBS"> <templateId root= "216.840.1.900287.10..22.4.2" /> <id nullFlavor="NA" /> < code codeSystem="local" code="NITRIU" displayName="UA NITRITE DIPSTICK" /> <statusCode code="completed" /> <effectiveTime value=" " /> <value unit="" xsi:type="PQ" value="NEGATIVE" /> < referenceRange> <observationRange> <text>NEGATIVE</text > </observationRange> </referenceRange> </observation > </component> <component> <observation moodCode="EVN" classCode="OBS"> <templateId root="10.03.840.1.985797.10.4.2" /> <id nullFlavor="NA" /> <code codeSystem="local" code="PROTEIU " displayName="UA PROTEIN DIPSTICK" /> <statusCode code="completed" /> <effectiveTime value="" /> <value unit="" xsi: type="PQ" value="NEGATIVE" /> <referenceRange> < observationRange> <text>NEGATIVE</text> </ observationRange> </referenceRange> </observation> </ component> <component> <observation moodCode="EVN" classCode="OBS"> <templateId root="840.1.909390.06.06.22.4.2" /> <id nullFlavor="NA" /> <code codeSystem="local" code="DGLUU" displayName= "UA GLUCOSE DIPSTICK" /> <statusCode code="completed" /> < effectiveTime value="" /> <value unit="" xsi:type="PQ" value="NEGATIVE" /> <referenceRange> <observationRange> <text>NEGATIVE</text> </observationRange> </ referenceRange> </observation> </component> <component> <observation moodCode="EVN" classCode="OBS"> <templateId root= "840.1.877176.06.06.22.4.2" /> <id nullFlavor="NA" /> < code codeSystem="local" code="KETONU" displayName="UA KETONE DIPSTICK" /> <statusCode code="completed" /> <effectiveTime value=" " /> <value unit="" xsi:type="PQ" value="NEGATIVE" /> < referenceRange> <observationRange> <text>NEGATIVE</text > </observationRange> </referenceRange> </observation > </component> <component> <observation moodCode="EVN" classCode="OBS"> <templateId root="16.840.1.701878.06.06.22.4.2" /> <id nullFlavor="NA" /> <code codeSystem="local" code="UROBILU " displayName="UA UROBILINOGEN DIPSTICK" /> <statusCode code="completed " /> <effectiveTime value="" /> <value unit="" xsi :type="PQ" value="NORMAL" /> <referenceRange> < observationRange> <text>NORMAL</text> </observationRange > </referenceRange> </observation> </component> < component> <observation moodCode="EVN" classCode="OBS"> < templateId root="10.03.840.1.267383.06.06.22.4.2" /> <id nullFlavor="NA " /> <code codeSystem="local" code="BILU" displayName="UA BILIRUBIN DIPSTICK" /> <statusCode code="completed" /> <effectiveTime value="" /> <value unit="" xsi:type="PQ" value="NEGATIVE" / > <referenceRange> <observationRange> <text> NEGATIVE</text> </observationRange> </referenceRange> </observation> </component> <component> <observation moodCode ="EVN" classCode="OBS"> <templateId root= "16.840.1.334105.22.4.2" /> <id nullFlavor="NA" /> < code codeSystem="local" code="ADAM" displayName="UA BLOOD DIPSTICK" /> < statusCode code="completed" /> <effectiveTime value="" /> <value unit="" xsi:type="PQ" value="NEGATIVE" /> < referenceRange> <observationRange> <text>NEGATIVE</text > </observationRange> </referenceRange> </observation > </component> <component> <observation moodCode="EVN" classCode="OBS"> <templateId root="216.840.1.976272.10..22.4.2" /> <id nullFlavor="NA" /> <code codeSystem="local" code="SPGRU" displayName="UA SPECIFIC GRAVITY" /> <statusCode code="completed" /> <effectiveTime value="" /> <value unit="" xsi:type= "PQ" value="1.015" /> <referenceRange> <observationRange> <text>1.015-1.025</text> </observationRange> </ referenceRange> </observation> </component> <component> <observation moodCode="EVN" classCode="OBS"> <templateId root= "216.840.1.463291.10..22.4.2" /> <id nullFlavor="NA" /> < code codeSystem="local" code="INGRID" displayName="UR PH" /> <statusCode code="completed" /> <effectiveTime value="" /> < value unit="" xsi:type="PQ" value="6.0" /> <referenceRange> <observationRange> <text>5.0-7.0</text> </ observationRange> </referenceRange> </observation> </ component> </organizer> </entry> <entry> <organizer moodCode="EVN" classCode="BATTERY"> <templateId root="16.840.1.746767.10..4.1" /> <id nullFlavor="NA" /> <code codeSystem="local" code="ALC" displayName ="ALCOHOL (ETHANOL) SERUM" /> <statusCode code="completed" /> < component> <observation moodCode="EVN" classCode="OBS"> < templateId root="840.1.487266.06.06.22.4.2" /> <id nullFlavor="NA " /> <code codeSystem="local" code="ALC" displayName="ALCOHOL (ETHANOL ) SERUM" /> <statusCode code="completed" /> <effectiveTime value="" /> <value unit="mg/dL" xsi:type="PQ" value="< 10" /> <referenceRange> <observationRange> < text> < 10</text> </observationRange> </referenceRange> </observation> </component> </organizer> </entry> <entry> < organizer moodCode="EVN" classCode="BATTERY"> <templateId root= "10.03.840.1.308200.06.06.22.4.1" /> <id nullFlavor="NA" /> <code codeSystem="local" code="LACTG" displayName="LACTIC ACID" /> <statusCode code="completed" /> <component> <observation moodCode="EVN" classCode="OBS"> <templateId root="10.03.840.1.547970.10.4.2" /> <id nullFlavor="NA" /> <code codeSystem="local" code="LACT" displayName="LACTIC ACID" /> <statusCode code="completed" /> < effectiveTime value="" /> <value unit="mmol/L" xsi:type="PQ " value="0.6" /> <referenceRange> <observationRange> <text>0.5-2.0</text> </observationRange> </ referenceRange> </observation> </component> </organizer> </entry > <entry> <organizer moodCode="EVN" classCode="BATTERY"> <templateId root="2.16.840.1.870956.10.20.22.4.1" /> <id nullFlavor="NA" /> <code codeSystem="local" code="BC" displayName="BLOOD CULTURE" /> <statusCode code="completed" /> <component> <observation moodCode="EVN" classCode="OBS"> <templateId root="2.16.840.1.176989.10.20.22.4.2" /> <id nullFlavor="NA" /> <code codeSystem="local" code="MB" displayName="Microbiology" /> <statusCode code="completed" /> <effectiveTime value="945752304586" /> <value xsi:type="ST" value="<pre ><b>BLOOD CULTURE</b> See BelowIs this a Possible Sepsis/Sepsis patient? NoIs this the first BLOOD CULTURE for this hospital visit? YesBLOOD CULTURE(F) Cosme Date/Time: 04/22/2017 20:34 Irvin Date /Time: 04/28/2017 06:42SOURCE: BLOODSPEC DESC: [id number] [facility] [place] [address]</pre>" /> < referenceRange> <observationRange> <text /> < /observationRange> </referenceRange> </observation> </ component> </organizer> </entry> <entry> <organizer moodCode="EVN" classCode="BATTERY"> <templateId root="2.16.840.1.812814.10.20.22.4.1" /> <id nullFlavor="NA" /> <code codeSystem="local" code="BC" displayName= "BLOOD CULTURE" /> <statusCode code="completed" /> <component> <observation moodCode="EVN" classCode="OBS"> <templateId root= "216.840.1.741159.10.4.2" /> <id nullFlavor="NA" /> < code codeSystem="local" code="MB" displayName="Microbiology" /> < statusCode code="completed" /> <effectiveTime value="170480077653" /> <value xsi:type="ST" value="<pre><b>BLOOD CULTURE</b> See BelowIs this a Possible Sepsis/Sepsis patient? NoIs this the first BLOOD CULTURE for this hospital visit? YesBLOOD CULTURE(F) Cosme Date/Time: 04/22/2017 20: 34 Irvin Date/Time: 04/28/2017 06:43SOURCE: BLOODSPEC DESC: [id number] [facility] [place] [address]</pre>" /> <referenceRange> < observationRange> <text /> </observationRange> </referenceRange> </observation> </component> </organizer> </ entry> <entry> <organizer moodCode="EVN" classCode="BATTERY"> < templateId root="216.840.1.483183.10..4.1" /> <id nullFlavor="NA" /> <code codeSystem="local" code="FBJ568" displayName="Ferritin" /> < statusCode code="completed" /> <component> <observation moodCode= "EVN" classCode="OBS"> <templateId root="216.840.1.463337.10..4.2 " /> <id nullFlavor="NA" /> <code codeSystem="local" code= "Usg939" displayName="Ferritin" /> <statusCode code="completed" /> <effectiveTime value="512829593187" /> <value unit="ng/mL" xsi: type="PQ" value="15.93" /> <referenceRange> < observationRange> <text>4.63-204.00</text> </ observationRange> </referenceRange> </observation> </ component> </organizer> </entry> <entry> <organizer moodCode="EVN" classCode="BATTERY"> <templateId root="216.840.1.376637.10..22.4.1" /> <id nullFlavor="NA" /> <code codeSystem="local" code="976373" displayName="Reticulocyte Count" /> <statusCode code="completed" /> < component> <observation moodCode="EVN" classCode="OBS"> < templateId root="2.16.840.1.605585.10..22.4.2" /> <id nullFlavor="NA " /> <code codeSystem="local" code="220177" displayName="Reticulocyte Count" /> <statusCode code="completed" /> <effectiveTime value ="500797618700" /> <value unit="%" xsi:type="PQ" value="0.9" /> <referenceRange> <observationRange> <text>0.6-2.6 </text> </observationRange> </referenceRange> </ observation> </component> </organizer> </entry> <entry> <organizer moodCode="EVN" classCode="BATTERY"> <templateId root= "2.16.840.1.153552.10..22.4.1" /> <id nullFlavor="NA" /> <code codeSystem="local" code="MGA325" displayName="Peripheral Smear" /> < statusCode code="completed" /> <component> <observation moodCode= "EVN" classCode="OBS"> <templateId root="2.16.840.1.407757.10.20.22.4.2 " /> <id nullFlavor="NA" /> <code codeSystem="local" code= "Cqs64098" displayName="Peripheral smear" /> <statusCode code= "completed" /> <effectiveTime value="872601791113" /> <value unit="" xsi:type="PQ" value="Sent to [facility] for review" /> < referenceRange> <observationRange> <text /> < /observationRange> </referenceRange> </observation> </ component> </organizer> </entry> <entry> <organizer moodCode="EVN" classCode="BATTERY"> <templateId root="2.16.840.1.374752.10.20.22.4.1" /> <id nullFlavor="NA" /> <code codeSystem="local" code="419817" displayName="Reticulocyte Count" /> <statusCode code="completed" /> < component> <observation moodCode="EVN" classCode="OBS"> < templateId root="2.16.840.1.582954.10.20.22.4.2" /> <id nullFlavor="NA " /> <code codeSystem="local" code="641639" displayName="Reticulocyte Count" /> <statusCode code="completed" /> <effectiveTime value ="189736286551" /> <value unit="%" xsi:type="PQ" value="0.9" /> <referenceRange> <observationRange> <text>0.6-2.6 </text> </observationRange> </referenceRange> </ observation> </component> </organizer> </entry></section> Encounters ACCT No. Visit Date/Time Discharge Status Pt. Type Provider Facility Loc./Unit Complaint [id number] 11/18/2016 11:00:00 11/18/2016 12:00:00 DIS Outpatient [id number] 02/20/2016 22:36:00 02/20/2016 23:59:59 CLS [facility] ED [id number] 04/22/2017 19:08:00 04/22/2017 22:06:00 DIS Emergency Garrett Fam DO [facility] W.RADHA [id number] 04/13/2017 04:38:00 04/13/2017 07:45:00 DIS [id number] 03/19/2017 01:00:00 03/20/2017 16:25:00 DIS Inpatient Luzma HAYES, Balbina Tang [facility].4CE [id number] 02/14/2017 09:49:00 02/14/2017 10:04:00 DIS Emergency [id number] 11/26/2016 04:40:00 11/26/2016 09:12:00 DIS [id number] 11/22/2016 22:01:00 11/23/2016 01:06:00 DIS Emergency Rodger [facility] [id number] 07/11/2016 09:15:00 07/11/2016 09:15:00 DIS Outpatient Davon HAYES, Devin Rey [facility] W.RAD [id number] 05/30/2016 21:12:00 05/30/2016 23:53:00 DIS Emergency Dani HAYES, Moe García [facility] W.RADHA [id number] 05/27/2016 22:09:00 05/28/2016 01:19:00 DIS Emergency Yony [facility] [id number] 04/27/2016 17:07:00 04/27/2016 19:44:00 DIS Emergency Edward HAYES, Avel [facility] WRADHA [id number] 12/18/2015 11:03:00 12/18/2015 15:40:00 DIS Emergency Mich HAYES, Thien Barcenas [facility] [id number] 10/11/2015 11:14:00 10/11/2015 15:19:00 DIS Emergency Lissa HAYES, Fidencio Honeycutt [facility].RADHA [id number] 08/24/2015 19:41:00 08/24/2015 21:57:00 DIS Emergency Pedor BLOOM, [facility] [id number] 04/12/2015 05:57:00 04/12/2015 06:58:00 DIS Emergency Maverick HAYES, Elmer Sorto [facility] [id number] 03/09/2015 18:41:00 03/09/2015 20:37:00 DIS Emergency [facility]any [id number] 02/22/2015 12:15:00 02/24/2015 20:45:00 DIS Inpatient Caitie HAYES, [facility].S [id number] 01/30/2016 08:56:00 Document Registration [id number] 09/18/2016 07:52:00 09/18/2016 10:50:00 DIS Outpatient Gayathri Mohan [facility] DS Gastro egdp [id number] 09/09/2016 12:57:00 09/09/2016 23:59:00 DIS Outpatient Gayathri Mohan [facility] Mur Gasto Chronic GERD Former Prateek pt. [id number] 10/18/2015 08:54:00 10/18/2015 10:55:00 DIS Outpatient Fidencio Chandra [facility] DS Gastro COMBOP [id number] 10/04/2015 13:44:00 10/04/2015 23:59:00 DIS Outpatient Fidencio Chandra [facility] Mur Gasto NPV HERNIA COLON SCREEN [id number] 11/19/2017 06:19:00 Document Registration [id number] 04/04/2017 15:05:24 ACT Document Registration [id number] 06/17/2017 11:14:00 06/17/2017 23:59:59 [facility] ED [id number] 11/18/2017 12:26:00 11/18/2017 23:59:00 DIS Outpatient RENY COLLAZO [id number] 10/15/2017 15:00:00 10/15/2017 23:59:00 DIS Outpatient RENY COLLAZO [id number] 10/15/2017 13:32:00 10/15/2017 23:59:00 DIS Outpatient RENY COLLAZO [id number] 04/04/2016 15:19:49 04/04/2016 23:59:59 CLS Outpatient Edwardo Max D [id number] 05/25/2017 11:12:00 05/25/2017 16:47:00 DIS Emergency Martinez Terri [facility] ED eder moraandrew [id number] 12/05/2016 11:18:00 12/05/2016 23:59:00 DIS Outpatient Serena Morfin [facility] on [facility] Pulm Func J45.40- Asthma [id number] 10/17/2016 10:28:00 10/17/2016 23:59:00 DIS Outpatient Mays Ronald [facility] on [facility] Mammo Screening [id number] 07/04/2015 15:21:00 07/04/2015 23:59:00 DIS Outpatient April Rolle MD [facility] on [facility] Diag Rad Chronic Back Pain [id number] 06/29/2015 09:51:00 06/29/2015 12:17:00 DIS Emergency Alton Vasquez DO [facility] on [facility] ED n/v [id number] 09/10/2016 05:15:48 Document Registration [id number] 06/30/2015 05:16:36 Document Registration [id number] 03/30/2016 13:00:00 03/30/2016 23:59:59 CLS [facility] ED [id number] 05/28/2017 13:34:03 05/28/2017 15:05: 09 DIS Outpatient SERENA MORFIN N.P. [id number] 02/27/2017 14:36:37 02/27/2017 15:11: 50 DIS Outpatient ADRIAN WHITTAKERYN [id number] 12/12/2016 13:42:04 12/12/2016 14:34: 38 DIS Outpatient SERENA MORFIN N.P. [id number] 11/14/2016 13:50:37 11/14/2016 14:01: 08 DIS Outpatient SERENA MORFIN N.P. [id number] 10/09/2016 08:09:59 10/09/2016 09:52: 28 DIS Outpatient SERENA MORFIN N.P.[id number] 09/19/2016 09:01:43 09/19/2016 10:16: 48 DIS Outpatient SERENA MORFIN N.P.[id number] 07/04/2016 10:25:30 07/04/2016 11:15: 08 DIS Outpatient SERENA MORFIN N.P. [id number] 05/20/2016 15:11:54 05/20/2016 16:24: 35 DIS Outpatient SERENA MORFIN N.P. [id number] 06/17/2017 11:49:00 Document Registration [id number] 06/26/2017 10:15:00 06/26/2017 23:59:59 CLS Outpatient [facility] [id number] 06/23/2017 11:28:00 06/23/2017 23:59:59 CLS Outpatient [facility] [id number] 06/16/2017 10:24:00 06/16/2017 23:59:59 CLS Outpatient [facility] [id number] 07/23/2017 11:21:00 Document Registration [id number] 06/19/2017 15:15:00 Document Registration [id number] 06/17/2017 11:17:00 06/17/2017 23:59:59 CLS Emergency YASH HAYES, YESSENIA [facility] ED [id number] 03/30/2016 15:03:00 03/31/2016 13:21:00 DIS Inpatient BRISSA SO DO [facility] 3SE [id number] 02/20/2016 22:39:00 02/21/2016 01:40:00 DIS Emergency LORNA HAYES, DIXON [facility] ED [id number] 01/01/2018 09:41:00 01/01/2018 23:59:59 CLS Outpatient RENY COLLAZO MD [facility] REHAB CERVICAL DDD AND NECK PAIN [id number] 11/27/2017 13:39:00 11/27/2017 23:59:59 CLS Outpatient KAYLENE HAYES, SILVIA [facility] ONC [id number] 11/24/2017 08:32:00 11/24/2017 23:59:59 CLS Outpatient RENY COLLAZO MD [facility] RAD SCREENING CERVILAGIA [id number] 12/12/2016 15:44:01 12/12/2016 23:59:59 CLS Outpatient
[2018-01-05] MEDS: PIPERACILLIN/TAZO 4.5 GM/D5W 100 ML IVPB IV SCH ×2 (16:51)
[2018-01-05] MEDS: BENZONATATE 100 MG (TESSALON) CAPSULE PO PRN (16:52)
--- NOTE | 2018-01-05 17:16 | Progress Note-Hospitalist ---
Progress Note Progress Notes/Assess & Plan Date Seen 01/05/18 Time Seen by Provider: 17:14 Assessment & Plan Greatly improved since yesterday..creatinine now 1.49 as compared to 4.85 on admission. She is brighter today but still loose on details. She feels that she is missing the memory of several days prior to admission. Her instructor trainer canine service agrees although he seems to be more optimistic about her mental function than I have seen so far. Physical exam: She is alert and answers questions promptly. Lungs are clear to auscultation. CV is regular without murmur. Extremities show no pedal edema. Impression: Pneumonia. Acute renal failure. Confusion at least in part secondary to sepsis. Plan: Continued IV fluids and antibiotics. Focused Exam Lactate Level NARCISO GONZALES MD January 05, 2018 17:16
[2018-01-06] MEDS: BENZONATATE 100 MG (TESSALON) CAPSULE PO PRN (00:36)
[2018-01-06] MEDS ORDERED: BACLOFEN 10 MG (LIORESAL) TAB ONE (01:28)
[2018-01-06] MEDS: BACLOFEN 10 MG (LIORESAL) TAB PO SCH ×2 (01:36→09:13)
[2018-01-06] MEDS: PIPERACILLIN/TAZO 4.5 GM/D5W 100 ML IVPB IV SCH ×2 (01:44)
[2018-01-06] MEDS: RT-ALBUTEROL/IPRATROPIUM 3 ML (DUONEB) VIAL INH SCH ×3 (02:08→14:35)
[2018-01-06 03:51] VITALS: BP 144/83
[2018-01-06] MEDS: ACETAMINOPHEN 325 MG TABLET/CAPLET (TYLENOL) PO PRN (04:51)
--- NOTE | 2018-01-06 05:41 | Pulmonary Progress Note ---
Subjective Time Seen by Provider: 06:05 Subjective/Events-last exam Pt feels much better and wants to go home. Focused Exam Lactate Level 01/04/18 11:46: Lactic Acid Level 1.13 Exam Exam Vital Signs Date Time Temp Pulse Resp B/P (MAP) Pulse Ox O2 Delivery O2 Flow Rate FiO2 01/06/18 04:15 Room Air 01/06/18 03:51 98.8 88 17 144/83 (103) 99 Room Air 01/06/18 02:08 94 Room Air 01/06/18 01:00 78 01/06/18 00:00 Room Air 01/05/18 23:20 97.7 78 18 145/72 (96) 99 Room Air 01/05/18 20:05 98.8 91 20 121/63 (82) 99 Room Air 01/05/18 20:00 Room Air 01/05/18 19:46 91 01/05/18 18:56 94 Room Air 01/05/18 16:00 99.8 95 18 144/67 (92) 99 Room Air 01/05/18 16:00 Room Air 01/05/18 14:48 94 Room Air 01/05/18 13:30 84 145/74 (97) Room Air 01/05/18 13:01 97 01/05/18 12:15 Room Air 01/05/18 12:00 87 17 135/71 (92) 100 Room Air 01/05/18 11:23 100.2 86 20 142/62 (88) 100 Room Air 01/05/18 10:00 99 24 143/57 (85) 97 Room Air 01/05/18 09:00 92 15 93/71 (78) 98 Room Air 01/05/18 09:00 Room Air 01/05/18 08:00 99.4 123 16 145/52 (83) 97 Room Air 01/05/18 07:11 98 Room Air 01/05/18 07:00 85 11 121/60 (80) 98 Room Air 01/05/18 07:00 83 01/05/18 06:00 91 21 113/64 (80) 98 Room Air I & O 01/06/18 07:00 Intake Total 3606 ml Output Total 2525 ml Balance 1081 ml General Appearance: No Apparent Distress, Anxious HEENT: Normal ENT Inspection Neck: Full Range of Motion, Normal Inspection, Non Tender, Supple, Carotid Bruit Respiratory: Decreased Breath Sounds (shallow) Cardiovascular: Regular Rate, Rhythm, No Edema, No Gallop Capillary Refill: Less Than 3 Seconds Extremity: Normal Capillary Refill, Normal Inspection, Normal Range of Motion Neurologic/Psychiatric: Other (arouses to voice but does not attempt to speak) Skin: Normal Color, Warm/Dry Lymphatic: No Adenopathy Results Lab Laboratory Tests 01/04/18 11:46 01/05/18 03:10 Assessment/Plan Assessment/Plan Severe Sepsis secondary to PNA - improving -Sepsis protocol -vanco, and Zosyn -- change to augmentin -Lutz cultures pending COPD -SVNS, oxygen, MAT protocol Confusion secondary to sepsis and opiate/Marijuana IDDM II PT is doing better no complications noted. Will repeat labs and CXR. If repeat testing shows stability pt is ok from pulmonary standpoint for discharge. I will have her f/u with me in 2-3 wks. 232 ALANIS REARDON DO January 06, 2018 05:41
[2018-01-06] MEDS: inSUlin ASPART (NovoLOG) 1 UNIT/0.01 ML (CHARGE PER UNIT) SC SCH ×2 (05:54→11:32)
[2018-01-06 06:16] LABS: BASOPHILS % (AUTO) 0 % (0-10); EOSINOPHILS # (AUTO) 0.1 10^3/uL (0.0-0.3); EOSINOPHILS % (AUTO) 1 % (0-10); HEMATOCRIT 27 % (35-52); HEMOGLOBIN 8.9 G/DL (11.5-16.0); LYMPHOCYTES # (AUTO) 0.6 X 10^3 (1.0-4.0); LYMPHOCYTES % (AUTO) 4 % (12-44); MEAN CORPUSCULAR HEMOGLOBIN 25 PG (25-34); MEAN CORPUSCULAR HGB CONC 33 G/DL (32-36); MEAN CORPUSCULAR VOLUME 75 FL (80-99); MEAN PLATELET VOLUME 8.9 FL (7.4-10.4); MONOCYTES % (AUTO) 7 % (0-12); NEUTROPHILS # (AUTO) 12.2 X 10^3 (1.8-7.8); NEUTROPHILS % (AUTO) 88 % (42-75); PLATELET COUNT 477 10^3/uL (130-400); RED BLOOD COUNT 3.58 10^6/uL (4.35-5.85); RED CELL DISTRIBUTION WIDTH 17.4 % (10.0-14.5); WHITE BLOOD COUNT 13.9 10^3/uL (4.3-11.0)
[2018-01-06 06:37] LABS: ALANINE AMINOTRANSFERASE 13 U/L (0-55); ALBUMIN 3.8 GM/DL (3.2-4.5); ALKALINE PHOSPHATASE 97 U/L (40-136); BILIRUBIN,TOTAL 0.4 MG/DL (0.1-1.0); BUN/CREATININE RATIO 13; CALCIUM 9.2 MG/DL (8.5-10.1); CARBON DIOXIDE 20 MMOL/L (21-32); CHLORIDE 96 MMOL/L (98-107); CREATININE SERUM 0.86 MG/DL (0.60-1.30); GFR ESTIMATED > 60; GLUCOSE 232 MG/DL (70-105); MAGNESIUM 1.7 MG/DL (1.8-2.4); PHOSPHORUS 1.5 MG/DL (2.3-4.7); POTASSIUM 3.5 MMOL/L (3.6-5.0); SODIUM 128 MMOL/L (135-145); TOTAL PROTEIN 7.5 GM/DL (6.4-8.2)
[2018-01-06] MEDS ORDERED: AUGMENTIN 500 MG TAB (AMOXICILLIN/CLAVULANATE) PO SCH (07:00)
[2018-01-06 08:01] VITALS: BP 151/73
--- NOTE | 2018-01-06 09:30 | Diagnostic Imaging Report ---
INDICATION: Pneumonia. EXAMINATION: Two view chest at 7:42 AM. CORRELATION STUDY: 01/04/2018. FINDINGS: The heart size is enlarged. The vasculature is slightly prominent without evidence of overt failure. Areas of atelectasis or infiltrate at the lung bases, left greater than right, appear slightly more prominent from the prior study. There are findings compatible with a prominent hiatal hernia. Accentuated thoracic kyphotic curvature and degenerative changes about the thoracic spine are present. IMPRESSION: Bibasilar areas of atelectasis and/or infiltrate appear progressed and increased from the prior study. Dictated by: Dictated on workstation # [id number]
[2018-01-06] MEDS ORDERED: lisINopril 10 MG (PRINIVIL) TABLET PO SCH (10:43)
[2018-01-06] MEDS ORDERED: PANTOPRAZOLE 40 MG (PROTONIX) TAB PO SCH (10:52)
[2018-01-06] MEDS ORDERED: MONTELUKAST 10 MG (SINGULAIR) TAB PO SCH (10:56)
[2018-01-06] MEDS ORDERED: ETODOLAC 300 MG (LODINE) CAP PO SCH (11:00)
[2018-01-06] MEDS ORDERED: meTOprolol TARTRATE 25 MG (LOPRESSOR) TABLET PO SCH ×2 (11:00→21:00)
[2018-01-06 12:00] VITALS: BP 136/79
[2018-01-06] MEDS ORDERED: BACLOFEN 10 MG (LIORESAL) TAB PO SCH (13:00)
[2018-01-06] MEDS ORDERED: CEFD300C3 PO (13:46)
[2018-01-06] MEDS ORDERED: metFORMIN 500 MG (GLUCOPHAGE) TAB PO SCH (17:00)
[2018-01-06] MEDS ORDERED: RT-ADVAIR HFA 115/21 MCG PER PUFF IH SCH (20:00)
[2018-01-06] MEDS ORDERED: NON-FORMULARY MEDICATION 1 EA EA (Lurasidone HCl (Latuda) 20 MG) PO SCH (21:00)
[2018-01-06] MEDS ORDERED: SERTRALINE 100 MG (ZOLOFT) TAB PO SCH (21:00)
[2018-01-06] MEDS ORDERED: MELOXICAM 7.5 MG (MOBIC) TABLET PO SCH (21:00)
[2018-01-06] MEDS ORDERED: SIMvastatin 20 MG (ZOCOR) TAB PO SCH (21:00)
[2018-01-07] MEDS ORDERED: OMEGA 3 (FISH OIL) 1000 MG CAP PO SCH (09:00)
--- NOTE | 2018-01-26 14:40 | Short Stay Summary-Hospitalist ---
Short Stay Diagnosis D/C Date January 06, 2018 at 15:00 1.sepsis. 2.pneumonia. 3.confusion presumably secondary to numbers one and 2 Clinical Quality Measures DVT/VTE Risk/Contraindication: Risk Factor Score Per Nursin RFS Level Per Nursing on Admit: 1=Low/No VTE PPX NARCISO GONZALES MD Jan 26, 2018 14:40
== END 2018-01-06 15:00 | disposition home or self-care (01) | DRG 871 ==
LOC: EDUNIT# 11:29 → ER 11:30 → ICU 13:45 → 4TH 01-05 14:05
PROVIDERS: ADMIT Family Medicine; ATTEND Family Medicine
DX: A41.9 Sepsis, unspecified organism (principal); R65.20 Severe sepsis without septic shock; J18.9 Pneumonia, unspecified organism; J44.0 Chronic obstructive pulmonary disease with (acute) lower respiratory infection; N39.0 Urinary tract infection, site not specified; N17.9 Acute kidney failure, unspecified; E86.0 Dehydration; D50.9 Iron deficiency anemia, unspecified; R29.6 Repeated falls; I10 Essential (primary) hypertension; E11.9 Type 2 diabetes mellitus without complications; K44.9 Diaphragmatic hernia without obstruction or gangrene; M41.9 Scoliosis, unspecified; M54.9 Dorsalgia, unspecified; R41.0 Disorientation, unspecified; F11.90 Opioid use, unspecified, uncomplicated; F12.90 Cannabis use, unspecified, uncomplicated; Z79.84 Long term (current) use of oral hypoglycemic drugs; Z87.891 Personal history of nicotine dependence
CPT/HCPCS: 36415; 51702; 71045; 71046; 80053; 80306; 81000; 82962; 83605; 83735; 83880; 84100; 85007; 85025; 85027; 85610; 87040; 87081; 94640; 94760; 96361; 96365

== ENCOUNTER 2018-02-19 09:12 | Outpatient (RCR) | payer MEDICAID ==
[~2018-02-19 09:12] MED LIST: BACL10TA PO; BUDE10.2 INH; CEFD300C3 PO; DEXL60CA PO; DICL75TA2 PO; LISI10TA2 PO; LURA20TA PO; MELO15TA39 PO; METF500T5 PO; METO-333 PO; MONT10TA21 PO; OMG1KC PO; ONDA8TAB9 PO; PRAZ1CAP2 PO; RANI300T4 PO; RT-ALBUINH INH; SERT100T8 PO; SIMV20TA3 PO
== END 2018-02-19 13:22 | disposition home or self-care (01) ==
PROVIDERS: ATTEND Family Medicine
DX: M50.30 Other cervical disc degeneration, unspecified cervical region (principal)

== ENCOUNTER 2018-04-19 14:15 | Emergency (ER) | payer MEDICAID ==
[~2018-04-19] VITALS: Ht 149.9 cm; Wt 54.4 kg
[~2018-04-19 14:15] MED LIST changes: +METF-397 PO; -METF500T5 PO
--- OUTSIDE RECORDS SUMMARY | 2018-04-19 14:21 | XMS REPORT ---
Author Author BARRON RODRIGEZ Organization [facility] Address [address] [place] [address] Care Team Providers Care Credit Analyst Name Role Phone BARRON RODRIGEZ Unavailable PROBLEMS Unknown Problems ALLERGIES No Information ENCOUNTERS Encounter Location Date Diagnosis [facility] [address] [id number] [address] Feb, [facility] [address] [facility] [id number] [address] Oct, IMMUNIZATIONS No Known Immunizations SOCIAL HISTORY Never Assessed REASON FOR VISIT Requests return call PLAN OF CARE VITAL SIGNS MEDICATIONS Unknown Medications RESULTS No Results PROCEDURES No Known procedures INSTRUCTIONS MEDICATIONS ADMINISTERED No Known Medications
--- OUTSIDE RECORDS SUMMARY | 2018-04-19 14:26 | XMS REPORT | Continuity of Care Document ---
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 </tr> <tr> <td>Blood microcytes detection by light microscopy</td> <td>SLIGHT </td> <td>NRG</td> </tr> <tr> < colspan="10">Blood lactic acid measurement (moles/volume) - 01/04/18 11:46</ th> </tr> <tr> <td>Blood lactic acid measurement (moles/ volume)</td> <td>1.13 mmol/L</td> <td>0.50-2.00</td> </ tr> <tr> < colspan="10">Bacterial blood culture - 01/04/18 11: 46</th> </tr> <tr> <td>Bacterial blood culture</td> <td>NG </td> <td>NRG</td> </tr> <tr> < colspan="10">Urine drug screening test - 01/04/18 12:31</th> </tr> <tr> <td>Urine phencyclidine detection by screening method</td> <td>NEGATIVE </td> <td>NEGATIVE</td> </tr> <tr> <td>Urine benzodiazepines detection by screening method</td> <td> NEGATIVE </td> <td>NEGATIVE</td> </tr> <tr> <td> Urine cocaine detection</td> <td>NEGATIVE </td> <td>NEGATIVE</ td> </tr> <tr> <td>Urine amphetamines detection by screening method</td> <td>NEGATIVE </td> <td>NEGATIVE</td> </tr> <tr> <td>Urine methamphetamine detection by screening method</td> <td>NEGATIVE </td> <td>NEGATIVE</td> </tr> <tr> <td>Urine cannabinoids detection by screening method</td> <td>POSITIVE </td> <td>NEGATIVE</td> </tr> <tr> <td>Urine opiates detection by screening method</td> <td>POSITIVE </td> <td>NEGATIVE</td> </tr> <tr> <td>Urine barbiturates detection</td> <td>NEGATIVE </td> <td>NEGATIVE</td> </tr> <tr> <td>Screening urine tricyclic antidepressants detection</td> <td>NEGATIVE </td> < td>NEGATIVE</td> </tr> <tr> <td>Urine methadone detection by screening method</td> <td>NEGATIVE </td> <td> NEGATIVE</td> </tr> <tr> <td>Urine oxycodone detection</ td> <td>NEGATIVE </td> <td>NEGATIVE</td> </tr> < tr> <td>Urine propoxyphene detection</td> <td>NEGATIVE </td> <td>NEGATIVE</td> </tr> <tr> < colspan="10"> Complete urinalysis with reflex to culture - 01/04/18 12:31</th> </tr> <tr> <td>Urine color determination</td> <td>YELLOW </td > <td>NRG</td> </tr> <tr> <td>Urine clarity determination</td> <td>CLEAR </td> <td>NRG</td> </tr> <tr> <td>Urine pH measurement by test strip</td> <td>5 </td> <td>5-9</td> </tr> <tr> <td>Specific gravity of urine by test strip</td> <td>1.025 </td> <td>1.016- 1.022</td> </tr> <tr> <td>Urine protein assay by test strip, semi-quantitative</td> <td>2+ </td> <td>NEGATIVE</td> </tr> <tr> <td>Urine glucose detection by automated test strip</td> <td>NEGATIVE </td> <td>NEGATIVE</td> </tr> <tr> <td>Erythrocytes detection in urine sediment by light microscopy</td> <td>NEGATIVE </td> <td>NEGATIVE</td> </ tr> <tr> <td>Urine ketones detection by automated test strip</td > <td>NEGATIVE </td> <td>NEGATIVE</td> </tr> <tr > <td>Urine nitrite detection by test strip</td> <td>NEGATIVE </td> <td>NEGATIVE</td> </tr> <tr> <td>Urine total bilirubin detection by test strip</td> <td>1+ </td> <td> NEGATIVE</td> </tr> <tr> <td>Urine urobilinogen measurement by automated test strip (mass/volume)</td> <td>NORMAL </td > <td>NORMAL</td> </tr> <tr> <td>Urine leukocyte esterase detection by dipstick</td> <td>1+ </td> <td >NEGATIVE</td> </tr> <tr> <td>Automated urine sediment erythrocyte count by microscopy (number/high power field)</td> <td> NONE </td> <td>NRG</td> </tr> <tr> <td> Automated urine sediment leukocyte count by microscopy (number/high power field) </td> <td>RARE </td> <td>NRG</td> </tr> <tr> <td>Bacteria detection in urine sediment by light microscopy</td> <td>FEW </td> <td>NRG</td> </tr> <tr> <td> Crystals detection in urine sediment by light microscopy</td> <td>NONE </td> <td>NRG</td> </tr> <tr> <td>Casts detection in urine sediment by light microscopy</td> <td>NONE </td> <td>NRG</td> </tr> <tr> <td>Mucus detection in urine sediment by light microscopy</td> <td>LARGE </td> <td> NRG</td> </tr> <tr> <td>Complete urinalysis with reflex to culture</td> <td>NO </td> <td>NRG</td> </tr> <tr> <td>Amorphous sediment detection in urine sediment by light microscopy</td> <td>MOD TRAN URATES </td> <td>NRG</td> </tr> <tr> <th colspan="10">Bacterial blood culture - 01/04/18 13:10</th> </tr> <tr> <td>Bacterial blood culture</td> <td>NG </td> <td>NRG</td> </tr> <tr> < th colspan="10">Methicillin resistant Staphylococcus aureus (MRSA) screening culture - 01/04/18 15:31</th> </tr> <tr> <td>MRSA SCREEN RESULT</td> <td>MRSA ISOLATED </td> <td>NRG</td> </tr> <tr> <th colspan="10">Capillary blood glucose measurement by glucometer (mass/volume) - 01/04/18 15:47</th> </tr> <tr> <td>Capillary blood glucose measurement by glucometer (mass/volume)</td> <td>106 mg/dL</td> <td>70-110</td> </tr> <tr> <th colspan="10">Capillary blood glucose measurement by glucometer (mass/ volume) - 01/04/18 21:18</th> </tr> <tr> <td>Capillary blood glucose measurement by glucometer (mass/volume)</td> <td>215 mg/ dL</td> <td>70-110</td> </tr> <tr> <th colspan= "10">Complete blood count (CBC) with automated white blood cell (WBC) differential - 01/05/18 03:10</th> </tr> <tr> <td>Blood leukocytes automated count (number/volume)</td> <td>15.6 10*3/uL</td> <td>4.3-11.0</td> </tr> <tr> <td>Blood erythrocytes automated count (number/volume)</td> <td>3.58 10*6/uL</td > <td>4.35-5.85</td> </tr> <tr> <td>Venous blood hemoglobin measurement (mass/volume)</td> <td>8.7 g/dL</td> <td>11.5-16.0</td> </tr> <tr> <td>Blood hematocrit ( volume fraction)</td> <td>27 %</td> <td>35-52</td> </tr> <tr> <td>Automated erythrocyte mean corpuscular volume</td > <td>76 [foz_us]</td> <td>80-99</td> </tr> <tr > <td>Automated erythrocyte mean corpuscular hemoglobin (mass per erythrocyte)</td> <td>24 pg</td> <td>25-34</td> </tr> <tr> <td>Automated erythrocyte mean corpuscular hemoglobin concentration measurement (mass/volume)</td> <td>32 g/dL</td> <td>32-36</td> </tr> <tr> <td>Automated erythrocyte distribution width ratio</td> <td>17.2 %</td> <td>10.0- 14.5</td> </tr> <tr> <td>Automated blood platelet count ( count/volume)</td> <td>444 10*3/uL</td> <td>130-400</td> </tr> <tr> <td>Automated blood platelet mean volume measurement</td> <td>9.1 [foz_us]</td> <td>7.4-10.4</td> </tr> <tr> <td>Automated blood neutrophils/100 leukocytes</td > <td>83 %</td> <td>42-75</td> </tr> <tr> <td>Automated blood lymphocytes/100 leukocytes</td> <td>6 % </td> <td>12-44</td> </tr> <tr> <td>Blood monocytes/100 leukocytes</td> <td>10 %</td> <td>0-12</td> </tr> <tr> <td>Automated blood eosinophils/100 leukocytes</td> <td>0 %</td> <td>0-10</td> </tr> <tr> <td>Automated blood basophils/100 leukocytes</td> < td>0 %</td> <td>0-10</td> </tr> <tr> <td> Blood neutrophils automated count (number/volume)</td> <td>13.0 10*3</ td> <td>1.8-7.8</td> </tr> <tr> <td>Blood lymphocytes automated count (number/volume)</td> <td>1.0 10*3</td> <td>1.0-4.0</td> </tr> <tr> <td>Blood monocytes automated count (number/volume)</td> <td>1.5 10*3</td> <td>0.0 -1.0</td> </tr> <tr> <td>Automated eosinophil count</td> <td>0.0 10*3/uL</td> <td>0.0-0.3</td> </tr> <tr > <td>Automated blood basophil count (count/volume)</td> <td> 0.0 10*3/uL</td> <td>0.0-0.1</td> </tr> <tr> < th colspan="10">Comprehensive metabolic panel - 01/05/18 03:10</th> </tr > <tr> <td>Serum or plasma sodium measurement (moles/volume)</td > <td>132 mmol/L</td> <td>135-145</td> </tr> <tr > <td>Serum or plasma potassium measurement (moles/volume)</td> <td>3.9 mmol/L</td> <td>3.6-5.0</td> </tr> <tr> <td>Serum or plasma chloride measurement (moles/volume)</td> <td> 104 mmol/L</td> <td>98-107</td> </tr> <tr> <td> Carbon dioxide</td> <td>18 mmol/L</td> <td>21-32</td> < /tr> <tr> <td>Serum or plasma anion gap determination (moles/ volume)</td> <td>10 mmol/L</td> <td>5-14</td> </tr> <tr> <td>Serum or plasma urea nitrogen measurement (mass/volume)</ td> <td>29 mg/dL</td> <td>7-18</td> </tr> <tr> <td>Serum or plasma creatinine measurement (mass/volume)</td> <td>1.49 mg/dL</td> <td>0.60-1.30</td> </tr> <tr> <td>Serum or plasma urea nitrogen/creatinine mass ratio</td> <td>19 </td> <td>NRG</td> </tr> <tr> <td>Serum or plasma creatinine measurement with calculation of estimated glomerular filtration rate</td> <td>36 </td> <td>NRG</td> </tr> <tr> <td>Serum or plasma glucose measurement (mass/volume)</td> <td>134 mg/dL</td> <td>70-105</td> </tr> <tr> <td>Serum or plasma calcium measurement (mass/volume)</td> <td> 8.7 mg/dL</td> <td>8.5-10.1</td> </tr> <tr> <td> Serum or plasma total bilirubin measurement (mass/volume)</td> <td>0.4 mg/dL</td> <td>0.1-1.0</td> </tr> <tr> <td> Serum or plasma alkaline phosphatase measurement (enzymatic activity/volume)</td > <td>88 U/L</td> <td>40-136</td> </tr> <tr> <td>Serum or plasma aspartate aminotransferase measurement (enzymatic activity/volume)</td> <td>11 U/L</td> <td>5-34</td> </ tr> <tr> <td>Serum or plasma alanine aminotransferase measurement (enzymatic activity/volume)</td> <td>8 U/L</td> < td>0-55</td> </tr> <tr> <td>Serum or plasma protein measurement (mass/volume)</td> <td>6.7 g/dL</td> <td>6.4-8.2</ td> </tr> <tr> <td>Serum or plasma albumin measurement ( mass/volume)</td> <td>3.5 g/dL</td> <td>3.2-4.5</td> </ tr> <tr> <th colspan="10">PT panel in platelet poor plasma by coagulation assay - 01/05/18 03:10</th> </tr> <tr> <td> Prothrombin time (PT) in platelet poor plasma by coagulation assay</td> <td>14.2 s</td> <td>12.2-14.7</td> </tr> <tr> <td>INR in platelet poor plasma or blood by coagulation assay</td> <td> 1.1 </td> <td>0.8-1.4</td> </tr> <tr> <th colspan="10">Serum or plasma phosphate measurement (mass/volume) - 01/05/18 03: 10</th> </tr> <tr> <td>Serum or plasma phosphate measurement (mass/volume)</td> <td>2.0 mg/dL</td> <td>2.3-4.7< /td> </tr> <tr> <th colspan="10">Magnesium - 01/05/18 03: 10</th> </tr> <tr> <td>Magnesium</td> <td>1.8 mg /dL</td> <td>1.8-2.4</td> </tr> <tr> <th colspan ="10">Capillary blood glucose measurement by glucometer (mass/volume) - 11:22</th> </tr> <tr> <td>Capillary blood glucose measurement by glucometer (mass/volume)</td> <td>156 mg/dL</td> <td>70-110</td> </tr> <tr> < colspan="10">Capillary blood glucose measurement by glucometer (mass/volume) - 01/05/18 16:39</th> </tr> <tr> <td>Capillary blood glucose measurement by glucometer (mass/volume)</td> <td>128 mg/dL</td> <td>70-110</ td> </tr> <tr> <th colspan="10">Capillary blood glucose measurement by glucometer (mass/volume) - 01/05/18 20:38</th> </tr> <tr> <td>Capillary blood glucose measurement by glucometer (mass/ volume)</td> <td>290 mg/dL</td> <td>70-110</td> </tr> <tr> < colspan="10">Capillary blood glucose measurement by glucometer (mass/volume) - 01/06/18 05:07</th> </tr> <tr> <td>Capillary blood glucose measurement by glucometer (mass/volume)</td> <td>272 mg/dL</td> <td>70-110</td> </tr> <tr> < colspan="10">Complete blood count (CBC) with automated white blood cell (WBC) differential - 01/06/18 05:35</th> </tr> <tr> <td> Blood leukocytes automated count (number/volume)</td> <td>13.9 10*3/uL< /td> <td>4.3-11.0</td> </tr> <tr> <td>Blood erythrocytes automated count (number/volume)</td> <td>3.58 10*6/uL</td > <td>4.35-5.85</td> </tr> <tr> <td>Venous blood hemoglobin measurement (mass/volume)</td> <td>8.9 g/dL</td> <td>11.5-16.0</td> </tr> <tr> <td>Blood hematocrit ( volume fraction)</td> <td>27 %</td> <td>35-52</td> </tr> <tr> <td>Automated erythrocyte mean corpuscular volume</td > <td>75 [foz_us]</td> <td>80-99</td> </tr> <tr > <td>Automated erythrocyte mean corpuscular hemoglobin (mass per erythrocyte)</td> <td>25 pg</td> <td>25-34</td> </tr> <tr> <td>Automated erythrocyte mean corpuscular hemoglobin concentration measurement (mass/volume)</td> <td>33 g/dL</td> <td>32-36</td> </tr> <tr> <td>Automated erythrocyte distribution width ratio</td> <td>17.4 %</td> <td>10.0- 14.5</td> </tr> <tr> <td>Automated blood platelet count ( count/volume)</td> <td>477 10*3/uL</td> <td>130-400</td> </tr> <tr> <td>Automated blood platelet mean volume measurement</td> <td>8.9 [foz_us]</td> <td>7.4-10.4</td> </tr> <tr> <td>Automated blood neutrophils/100 leukocytes</td > <td>88 %</td> <td>42-75</td> </tr> <tr> <td>Automated blood lymphocytes/100 leukocytes</td> <td>4 % </td> <td>12-44</td> </tr> <tr> <td>Blood monocytes/100 leukocytes</td> <td>7 %</td> <td>0-12</td> </tr> <tr> <td>Automated blood eosinophils/100 leukocytes </td> <td>1 %</td> <td>0-10</td> </tr> <tr> <td>Automated blood basophils/100 leukocytes</td> <td>0 % </td> <td>0-10</td> </tr> <tr> <td>Blood neutrophils automated count (number/volume)</td> <td>12.2 10*3</td> <td>1.8-7.8</td> </tr> <tr> <td>Blood lymphocytes automated count (number/volume)</td> <td>0.6 10*3</td> <td>1.0 -4.0</td> </tr> <tr> <td>Blood monocytes automated count (number/volume)</td> <td>1.0 10*3</td> <td>0.0-1.0</td> </tr> <tr> <td>Automated eosinophil count</td> <td> 0.1 10*3/uL</td> <td>0.0-0.3</td> </tr> <tr> <td >Automated blood basophil count (count/volume)</td> <td>0.0 10*3/uL</td > <td>0.0-0.1</td> </tr> <tr> < colspan="10"> Comprehensive metabolic panel - 01/06/18 05:35</th> </tr> <tr> <td>Serum or plasma sodium measurement (moles/volume)</td> <td> 128 mmol/L</td> <td>135-145</td> </tr> <tr> <td> Serum or plasma potassium measurement (moles/volume)</td> <td>3.5 mmol/ L</td> <td>3.6-5.0</td> </tr> <tr> <td>Serum or plasma chloride measurement (moles/volume)</td> <td>96 mmol/L</td> <td>98-107</td> </tr> <tr> <td>Carbon dioxide</td> <td>20 mmol/L</td> <td>21-32</td> </tr> <tr> <td>Serum or plasma anion gap determination (moles/volume)</td> <td>12 mmol/L</td> <td>5-14</td> </tr> <tr> < td>Serum or plasma urea nitrogen measurement (mass/volume)</td> <td>11 mg/dL</td> <td>7-18</td> </tr> <tr> <td>Serum or plasma creatinine measurement (mass/volume)</td> <td>0.86 mg/dL</td > <td>0.60-1.30</td> </tr> <tr> <td>Serum or plasma urea nitrogen/creatinine mass ratio</td> <td>13 </td> < td>NRG</td> </tr> <tr> <td>Serum or plasma creatinine measurement with calculation of estimated glomerular filtration rate</td> <td>> </td> <td>NRG</td> </tr> <tr> <td> Serum or plasma glucose measurement (mass/volume)</td> <td>232 mg/dL</ td> <td>70-105</td> </tr> <tr> <td>Serum or plasma calcium measurement (mass/volume)</td> <td>9.2 mg/dL</td> <td>8.5-10.1</td> </tr> <tr> <td>Serum or plasma total bilirubin measurement (mass/volume)</td> <td>0.4 mg/dL</td> <td>0.1-1.0</td> </tr> <tr> <td>Serum or plasma alkaline phosphatase measurement (enzymatic activity/volume)</td> <td> 97 U/L</td> <td>40-136</td> </tr> <tr> <td> Serum or plasma aspartate aminotransferase measurement (enzymatic activity/ volume)</td> <td>13 U/L</td> <td>5-34</td> </tr> <tr> <td>Serum or plasma alanine aminotransferase measurement ( enzymatic activity/volume)</td> <td>13 U/L</td> <td>0-55</td> </tr> <tr> <td>Serum or plasma protein measurement (mass /volume)</td> <td>7.5 g/dL</td> <td>6.4-8.2</td> </tr> <tr> <td>Serum or plasma albumin measurement (mass/volume)</td > <td>3.8 g/dL</td> <td>3.2-4.5</td> </tr> <tr> <th colspan="10">Serum or plasma phosphate measurement (mass/volume) - 01/06/18 05:35</th> </tr> <tr> <td>Serum or plasma phosphate measurement (mass/volume)</td> <td>1.5 mg/dL</td> < td>2.3-4.7</td> </tr> <tr> <th colspan="10">Magnesium - 01/06/18 05:35</th> </tr> <tr> <td>Magnesium</td> <td>1.7 mg/dL</td> <td>1.8-2.4</td> </tr> <tr> <th colspan="10">Serum or plasma lithium measurement (moles/volume) - 05:35</th> </tr> <tr> <td>BNP level</td> <td> 556.4 pg/mL</td> <td><100.0</td> </tr> <tr> < th colspan="10">Capillary blood glucose measurement by glucometer (mass/volume) - 01/06/18 11:03</th> </tr> <tr> <td>Capillary blood glucose measurement by glucometer (mass/volume)</td> <td>158 mg/dL</td > <td>70-110</td> </tr> <tr> <th colspan="10"> Comprehensive Metabolic Panel - 01/13/18 17:01</th> </tr> <tr> <td>Albumin</td> <td>4.1 g/dL</td> <td>3.6-5.1</td> </tr> <tr> <td>ALP</td> <td>95 U/L</td> < td>35-130</td> </tr> <tr> <td>ALT</td> <td>10 U/ L</td> <td>6-45</td> </tr> <tr> <td>Anion Gap</ td> <td>16 </td> <td>6-14</td> </tr> <tr> <td>AST</td> <td>12 U/L</td> <td>2-40</td> </tr> <tr> <td>BUN</td> <td>13 mg/dL</td> <td>5-25</ td> </tr> <tr> <td>Calcium</td> <td>9.8 mg/dL</ td> <td>8.3-10.4</td> </tr> <tr> <td>Chloride</ td> <td>100 mmol/L</td> <td>95-114</td> </tr> < tr> <td>CO2</td> <td>22 mEq/L</td> <td>22-33</td> </tr> <tr> <td>Creat</td> <td>0.79 mg/dL</td> <td>0.50-1.50</td> </tr> <tr> <td>eGFR</td> <td>76 mL/min/1.73m2</td> <td>>59</td> </tr> <tr> <td>Globulin</td> <td>3.5 g/dL</td> <td>2.3-3.5</td> </tr> <tr> <td>Glucose</td> <td>104 mg/dL</td> <td>70-110</td> </tr> <tr> <td>Osmo</td> <td>278 </td> <td>280-295</td> </tr> <tr> < td>Potassium</td> <td>4.4 mmol/L</td> <td>3.5-5.3</td> </tr> <tr> <td>Sodium</td> <td>134 mmol/L</td> <td>134-148</td> </tr> <tr> <td>TBil</td> <td> < 0.2 mg/dL</td> <td /> </tr> <tr> <td>TP</td > <td>7.6 g/dL</td> <td>6.0-8.3</td> </tr> </tbody > </table> </text> <entry> <organizer moodCode="EVN" classCode="BATTERY "> <templateId root="[id number]" /> <id nullFlavor ="NA" /> <code codeSystem="local" code="iCHEM8" displayName="CHEM/HEM PROFILE-BEDSIDE" /> <statusCode code="completed" /> <component> <observation moodCode="EVN" classCode="OBS"> <templateId root= "[id number]" /> <id nullFlavor="NA" /> < code codeSystem="local" code="K" displayName="POTASSIUM" /> < statusCode code="completed" /> <effectiveTime value="[id number]" /> <value unit="mmol/L" xsi:type="PQ" value="3.9" /> < referenceRange> <observationRange> <text>3.5-5.3</text> </observationRange> </referenceRange> </observation > </component> <component> <observation moodCode="EVN" classCode="OBS"> <templateId root="[id number]" /> <id nullFlavor="NA" /> <code codeSystem="local" code="CMETHOD " displayName="METHOD" /> <statusCode code="completed" /> < effectiveTime value="" /> <value unit="" xsi:type="PQ" value="Bedside" /> <referenceRange> <observationRange> <text /> </observationRange> </referenceRange> </observation> </component> <component> <observation moodCode="EVN" classCode="OBS"> <templateId root= "[id number]" /> <id nullFlavor="NA" /> < code codeSystem="local" code="GAP" displayName="ANION GAP" /> < statusCode code="completed" /> <effectiveTime value="" /> <value unit="mmol/L" xsi:type="PQ" value="16" /> < referenceRange> <observationRange> <text>10-20</text> </observationRange> </referenceRange> </observation> </component> <component> <observation moodCode="EVN" classCode= "OBS"> <templateId root="[id number]" /> < id nullFlavor="NA" /> <code codeSystem="local" code="HMETHOD" displayName="METHOD" /> <statusCode code="completed" /> < effectiveTime value="" /> <value unit="" xsi:type="PQ" value="Bedside" /> <referenceRange> <observationRange> <text /> </observationRange> </referenceRange> </observation> </component> <component> <observation moodCode="EVN" classCode="OBS"> <templateId root= "[id number]" /> <id nullFlavor="NA" /> < code codeSystem="local" code="GLU" displayName="GLUCOSE" /> < statusCode code="completed" /> <effectiveTime value="[id number]" /> <value unit="mg/dL" xsi:type="PQ" value="152" /> < interpretationCode codeSystem="local" code="*" /> <referenceRange> <observationRange> <text>70-99</text> </ observationRange> </referenceRange> </observation> </ component> <component> <observation moodCode="EVN" classCode="OBS"> <templateId root="[id number]" /> <id nullFlavor="NA" /> <code codeSystem="local" code="BUN" displayName= "BLOOD UREA NITROGEN" /> <statusCode code="completed" /> < effectiveTime value="[id number]" /> <value unit="mg/dL" xsi:type="PQ " value="20" /> <referenceRange> <observationRange> <text>7-20</text> </observationRange> </referenceRange > </observation> </component> <component> <observation moodCode="EVN" classCode="OBS"> <templateId root= "[id number]" /> <id nullFlavor="NA" /> < code codeSystem="local" code="CREAT" displayName="CREATININE" /> < statusCode code="completed" /> <effectiveTime value="[id number]" /> <value unit="mg/dL" xsi:type="PQ" value="0.9" /> < referenceRange> <observationRange> <text>0.6-1.0</text> </observationRange> </referenceRange> </observation > </component> <component> <observation moodCode="EVN" classCode="OBS"> <templateId root="[id number]" /> <id nullFlavor="NA" /> <code codeSystem="local" code="HGBT" displayName="HEMOGLOBIN" /> <statusCode code="completed" /> < effectiveTime value="[id number]" /> <value unit="gm/dL" xsi:type="PQ " value="10.5" /> <interpretationCode codeSystem="local" code="*" /> <referenceRange> <observationRange> <text>12.0- 16.0</text> </observationRange> </referenceRange> </ observation> </component> <component> <observation moodCode= "EVN" classCode="OBS"> <templateId root="[id number]2.4.2 " /> <id nullFlavor="NA" /> <code codeSystem="local" code= "HCTT" displayName="HEMATOCRIT" /> <statusCode code="completed" /> <effectiveTime value="[id number]" /> <value unit="%" xsi: type="PQ" value="31.0" /> <interpretationCode codeSystem="local" code= "*" /> <referenceRange> <observationRange> < text>37.0-47.0</text> </observationRange> </referenceRange> </observation> </component> <component> <observation moodCode="EVN" classCode="OBS"> <templateId root= "[id number].4.2" /> <id nullFlavor="NA" /> < code codeSystem="local" code="NA" displayName="SODIUM" /> <statusCode code="completed" /> <effectiveTime value="[id number]" /> < value unit="mmol/L" xsi:type="PQ" value="136" /> <referenceRange> <observationRange> <text>135-148</text> </ observationRange> </referenceRange> </observation> </ component> <component> <observation moodCode="EVN" classCode="OBS"> <templateId root="216.840.1.536340.10..4.2" /> <id nullFlavor="NA" /> <code codeSystem="local" code="CL" displayName= "CHLORIDE" /> <statusCode code="completed" /> <effectiveTime value="771960900064" /> <value unit="mmol/L" xsi:type="PQ" value="99" / > <referenceRange> <observationRange> <text>98- 110</text> </observationRange> </referenceRange> </ observation> </component> <component> <observation moodCode= "EVN" classCode="OBS"> <templateId root="10.03.840.1.714758...4.2 " /> <id nullFlavor="NA" /> <code codeSystem="local" code="CO2 " displayName="CARBON DIOXIDE" /> <statusCode code="completed" /> <effectiveTime value="[id number]" /> <value unit="mmol/L" xsi: type="PQ" value="26" /> <referenceRange> <observationRange> <text>21-32</text> </observationRange> </ referenceRange> </observation> </component> <component> <observation moodCode="EVN" classCode="OBS"> <templateId root= "16.840.1.125420.10.20.22.4.2" /> <id nullFlavor="NA" /> < code codeSystem="local" code="CAION" displayName="CALCIUM IONIZED" /> < statusCode code="completed" /> <effectiveTime value="[id number]" /> <value unit="mg/dL" xsi:type="PQ" value="4.9" /> < referenceRange> <observationRange> <text>4.5-5.3</text> </observationRange> </referenceRange> </observation > </component> </organizer> </entry> <entry> <organizer moodCode= "EVN" classCode="BATTERY"> <templateId root="216.840.1.012606.10...4.1 " /> <id nullFlavor="NA" /> <code codeSystem="local" code="iTROPI" displayName="TROPONIN I BEDSIDE" /> <statusCode code="completed" /> < component> <observation moodCode="EVN" classCode="OBS"> < templateId root="216.840.1.491172.10...4.2" /> <id nullFlavor="NA " /> <code codeSystem="local" code="CMETHOD" displayName="METHOD" /> <statusCode code="completed" /> <effectiveTime value= "[id number]" /> <value unit="" xsi:type="PQ" value="Bedside" /> <referenceRange> <observationRange> <text /> </observationRange> </referenceRange> </observation> </component> <component> <observation moodCode="EVN" classCode="OBS "> <templateId root="216.840.1.309723...4.2" /> <id nullFlavor="NA" /> <code codeSystem="local" code="TROPI" displayName= "TROPONIN I" /> <statusCode code="completed" /> < effectiveTime value="800128767572" /> <value unit="ng/mL" xsi:type="PQ " value="< 0.04" /> <referenceRange> <observationRange> <text>< 0.11</text> </observationRange> </ referenceRange> </observation> </component> </organizer> </entry > <entry> <organizer moodCode="EVN" classCode="BATTERY"> <templateId root="10.03.840.1.065275.06.06.22.4.1" /> <id nullFlavor="NA" /> <code codeSystem="local" code="CBCD" displayName="CBC W/DIFF" /> <statusCode code ="completed" /> <component> <observation moodCode="EVN" classCode= "OBS"> <templateId root="10.03.840.1.652178.06.06.22.4.2" /> < id nullFlavor="NA" /> <code codeSystem="local" code="BA#" displayName= "BASOPHIL #" /> <statusCode code="completed" /> < effectiveTime value="928621266524" /> <value unit="k/cumm" xsi:type="PQ " value="0.1" /> <referenceRange> <observationRange> <text>0.0-0.2</text> </observationRange> </ referenceRange> </observation> </component> <component> <observation moodCode="EVN" classCode="OBS"> <templateId root= "16.840.1.274457.10...4.2" /> <id nullFlavor="NA" /> < code codeSystem="local" code="BA%" displayName="BASOPHIL %" /> <statusCode code="completed" /> <effectiveTime value="" /> <value unit="%" xsi:type="PQ" value="1" /> < referenceRange> <observationRange> <text>0-1</text> </observationRange> </referenceRange> </observation> </component> <component> <observation moodCode="EVN" classCode= "OBS"> <templateId root="216.840.1.240402.10..22.4.2" /> < id nullFlavor="NA" /> <code codeSystem="local" code="EO#" displayName= "EOSINOPHIL #" /> <statusCode code="completed" /> < effectiveTime value="673093265440" /> <value unit="k/cumm" xsi:type="PQ " value="0.1" /> <referenceRange> <observationRange> <text>0.1-0.5</text> </observationRange> </ referenceRange> </observation> </component> <component> <observation moodCode="EVN" classCode="OBS"> <templateId root= "16.840.1.147540.10...4.2" /> <id nullFlavor="NA" /> < code codeSystem="local" code="EO%" displayName="EOSINOPHIL %" /> <statusCode code="completed" /> <effectiveTime value="370799445073" /> <value unit="%" xsi:type="PQ" value="1" /> < interpretationCode codeSystem="local" code="*" /> <referenceRange> <observationRange> <text>2-4</text> </ observationRange> </referenceRange> </observation> </ component> <component> <observation moodCode="EVN" classCode="OBS"> <templateId root="16.840.1.078663.10...4.2" /> <id nullFlavor="NA" /> <code codeSystem="local" code="GR#" displayName= "GRANULOCYTE #" /> <statusCode code="completed" /> < effectiveTime value="" /> <value unit="k/cumm" xsi:type="PQ " value="4.8" /> <referenceRange> <observationRange> <text>2.0-9.0</text> </observationRange> </ referenceRange> </observation> </component> <component> <observation moodCode="EVN" classCode="OBS"> <templateId root= "216.840.1.710427.10...4.2" /> <id nullFlavor="NA" /> < code codeSystem="local" code="GR%" displayName="GRANULOCYTE %" /> <statusCode code="completed" /> <effectiveTime value=" " /> <value unit="%" xsi:type="PQ" value="64" /> < referenceRange> <observationRange> <text>50-75</text> </observationRange> </referenceRange> </observation> </component> <component> <observation moodCode="EVN" classCode= "OBS"> <templateId root="2.16.840.1.890216.10...4.2" /> < id nullFlavor="NA" /> <code codeSystem="local" code="LY#" displayName= "LYMPHOCYTE #" /> <statusCode code="completed" /> < effectiveTime value="" /> <value unit="k/cumm" xsi:type="PQ " value="1.7" /> <referenceRange> <observationRange> <text>1.0-4.0</text> </observationRange> </ referenceRange> </observation> </component> <component> <observation moodCode="EVN" classCode="OBS"> <templateId root= "10.03.840.1.135712.10.20.22.4.2" /> <id nullFlavor="NA" /> < code codeSystem="local" code="LY%" displayName="LYMPHOCYTE %" /> <statusCode code="completed" /> <effectiveTime value="" /> <value unit="%" xsi:type="PQ" value="23" /> < referenceRange> <observationRange> <text>20-30</text> </observationRange> </referenceRange> </observation> </component> <component> <observation moodCode="EVN" classCode= "OBS"> <templateId root="10.03.840.1.127401.1022.4.2" /> < id nullFlavor="NA" /> <code codeSystem="local" code="MCH" displayName= "MEAN CELL HGB" /> <statusCode code="completed" /> < effectiveTime value="" /> <value unit="pg" xsi:type="PQ" value="23.7" /> <interpretationCode codeSystem="local" code="*" /> <referenceRange> <observationRange> <text>27.0- 33.0</text> </observationRange> </referenceRange> </ observation> </component> <component> <observation moodCode= "EVN" classCode="OBS"> <templateId root="840.1.652348.10.2022.4.2 " /> <id nullFlavor="NA" /> <code codeSystem="local" code= "MCHC" displayName="MEAN CELL HGB CONCENTRATION" /> <statusCode code= "completed" /> <effectiveTime value="" /> <value unit="g/dL" xsi:type="PQ" value="30.8" /> <interpretationCode codeSystem="local" code="*" /> <referenceRange> < observationRange> <text>32.0-37.0</text> </ observationRange> </referenceRange> </observation> </ component> <component> <observation moodCode="EVN" classCode="OBS"> <templateId root="216.840.1.263993.06.06.22.4.2" /> <id nullFlavor="NA" /> <code codeSystem="local" code="MCV" displayName= "MEAN CELL VOLUME" /> <statusCode code="completed" /> < effectiveTime value="174295544091" /> <value unit="fl" xsi:type="PQ" value="77.0" /> <interpretationCode codeSystem="local" code="*" /> <referenceRange> <observationRange> <text>80.0- 100.0</text> </observationRange> </referenceRange> </ observation> </component> <component> <observation moodCode= "EVN" classCode="OBS"> <templateId root="10.03.840.1.275938.06.06.22.4.2 " /> <id nullFlavor="NA" /> <code codeSystem="local" code="MO# " displayName="MONOCYTE #" /> <statusCode code="completed" /> <effectiveTime value="264077434135" /> <value unit="k/cumm" xsi:type= "PQ" value="0.8" /> <referenceRange> <observationRange> <text>0.1-1.0</text> </observationRange> </ referenceRange> </observation> </component> <component> <observation moodCode="EVN" classCode="OBS"> <templateId root= "216.840.1.781910.06.06.22.4.2" /> <id nullFlavor="NA" /> < code codeSystem="local" code="MO%" displayName="MONOCYTE %" /> <statusCode code="completed" /> <effectiveTime value="" /> <value unit="%" xsi:type="PQ" value="11" /> < interpretationCode codeSystem="local" code="*" /> <referenceRange> <observationRange> <text>4-6</text> </ observationRange> </referenceRange> </observation> </ component> <component> <observation moodCode="EVN" classCode="OBS"> <templateId root="2.16.840.1.988124.104.2" /> <id nullFlavor="NA" /> <code codeSystem="local" code="RBC" displayName=" RED BLOOD CELL" /> <statusCode code="completed" /> < effectiveTime value="" /> <value unit="m/cumm" xsi:type="PQ " value="3.92" /> <interpretationCode codeSystem="local" code="*" /> <referenceRange> <observationRange> <text>4.00- 6.00</text> </observationRange> </referenceRange> </ observation> </component> <component> <observation moodCode= "EVN" classCode="OBS"> <templateId root="2.16.840.1.050829.10.4.2 " /> <id nullFlavor="NA" /> <code codeSystem="local" code="RDW " displayName="RED CELL DISTRIBUTION WIDTH" /> <statusCode code= "completed" /> <effectiveTime value="" /> <value unit="%" xsi:type="PQ" value="15.3" /> <referenceRange> <observationRange> <text>11.0-15.6</text> </ observationRange> </referenceRange> </observation> </ component> <component> <observation moodCode="EVN" classCode="OBS"> <templateId root="10.03.840.1.483694.10.20.22.4.2" /> <id nullFlavor="NA" /> <code codeSystem="local" code="WBC" displayName= "WHITE BLOOD CELL" /> <statusCode code="completed" /> < effectiveTime value="055813061776" /> <value unit="k/cumm" xsi:type="PQ " value="7.6" /> <referenceRange> <observationRange> <text>5.0-10.0</text> </observationRange> </ referenceRange> </observation> </component> <component> <observation moodCode="EVN" classCode="OBS"> <templateId root= "10.03.840.1.606393...4.2" /> <id nullFlavor="NA" /> < code codeSystem="local" code="HGBT" displayName="HEMOGLOBIN" /> < statusCode code="completed" /> <effectiveTime value="110048642086" /> <value unit="gm/dL" xsi:type="PQ" value="9.3" /> < interpretationCode codeSystem="local" code="*" /> <referenceRange> <observationRange> <text>12.0-16.0</text> </ observationRange> </referenceRange> </observation> </ component> <component> <observation moodCode="EVN" classCode="OBS"> <templateId root="10.03.840.1.280062.10.20.22.4.2" /> <id nullFlavor="NA" /> <code codeSystem="local" code="HCTT" displayName= "HEMATOCRIT" /> <statusCode code="completed" /> < effectiveTime value="671357557729" /> <value unit="%" xsi:type="PQ " value="30.2" /> <interpretationCode codeSystem="local" code="*" /> <referenceRange> <observationRange> <text>37.0- 47.0</text> </observationRange> </referenceRange> </ observation> </component> <component> <observation moodCode= "EVN" classCode="OBS"> <templateId root="840.1.435902.22.4.2 " /> <id nullFlavor="NA" /> <code codeSystem="local" code="PLT " displayName="PLATELET COUNT" /> <statusCode code="completed" /> <effectiveTime value="" /> <value unit="k/cumm" xsi: type="PQ" value="542" /> <interpretationCode codeSystem="local" code="* " /> <referenceRange> <observationRange> <text> 150-400</text> </observationRange> </referenceRange> </observation> </component> </organizer> </entry> <entry> < organizer moodCode="EVN" classCode="BATTERY"> <templateId root= "840.1.944978.22.4.1" /> <id nullFlavor="NA" /> <code codeSystem="local" code="LIVER" displayName="HEPATIC FUNCTION PANEL" /> < statusCode code="completed" /> <component> <observation moodCode= "EVN" classCode="OBS"> <templateId root="10.03.840.1.045611.102022.4.2 " /> <id nullFlavor="NA" /> <code codeSystem="local" code= "BILUC" displayName="BILI UNCONJUGATED" /> <statusCode code="completed " /> <effectiveTime value="826772856147" /> <value unit="mg/dL " xsi:type="PQ" value="0.1" /> <referenceRange> < observationRange> <text>0.0-0.7</text> </ observationRange> </referenceRange> </observation> </ component> <component> <observation moodCode="EVN" classCode="OBS"> <templateId root="216.840.1.266061.10..4.2" /> <id nullFlavor="NA" /> <code codeSystem="local" code="AST" displayName="AST /SGOT" /> <statusCode code="completed" /> <effectiveTime value ="895215386844" /> <value unit="Units/L" xsi:type="PQ" value="13" /> <referenceRange> <observationRange> <text>10-37< /text> </observationRange> </referenceRange> </ observation> </component> <component> <observation moodCode= "EVN" classCode="OBS"> <templateId root="10.03.840.1.142552.06.06.22.4.2 " /> <id nullFlavor="NA" /> <code codeSystem="local" code="ALT " displayName="ALT/SGPT" /> <statusCode code="completed" /> < effectiveTime value="089571893521" /> <value unit="Units/L" xsi:type= "PQ" value="18" /> <referenceRange> <observationRange> <text>< 66</text> </observationRange> </ referenceRange> </observation> </component> <component> <observation moodCode="EVN" classCode="OBS"> <templateId root= "2.840.1.333642.06.06.22.4.2" /> <id nullFlavor="NA" /> < code codeSystem="local" code="TP" displayName="TOTAL PROTEIN" /> < statusCode code="completed" /> <effectiveTime value="" /> <value unit="gm/dL" xsi:type="PQ" value="8.0" /> < referenceRange> <observationRange> <text>6.4-8.2</text> </observationRange> </referenceRange> </observation > </component> <component> <observation moodCode="EVN" classCode="OBS"> <templateId root="2.16.840.1.222848.06.06.22.4.2" /> <id nullFlavor="NA" /> <code codeSystem="local" code="ALB" displayName="ALBUMIN" /> <statusCode code="completed" /> < effectiveTime value="" /> <value unit="gm/dL" xsi:type="PQ " value="3.5" /> <referenceRange> <observationRange> <text>3.4-5.0</text> </observationRange> </ referenceRange> </observation> </component> <component> <observation moodCode="EVN" classCode="OBS"> <templateId root= "2.16.840.1.411658.10..4.2" /> <id nullFlavor="NA" /> < code codeSystem="local" code="BILTOT" displayName="BILI TOTAL" /> < statusCode code="completed" /> <effectiveTime value="" /> <value unit="mg/dL" xsi:type="PQ" value="0.2" /> < referenceRange> <observationRange> <text>0.0-1.0</text> </observationRange> </referenceRange> </observation > </component> <component> <observation moodCode="EVN" classCode="OBS"> <templateId root="2.16.840.1.063723.10...4.2" /> <id nullFlavor="NA" /> <code codeSystem="local" code="ALKP" displayName="ALKALINE PHOSPHATASE TOTAL" /> <statusCode code="completed " /> <effectiveTime value="250101375421" /> <value unit="IU/L " xsi:type="PQ" value="120" /> <interpretationCode codeSystem="local" code="*" /> <referenceRange> <observationRange> <text>45-117</text> </observationRange> </referenceRange> </observation> </component> <component> <observation moodCode="EVN" classCode="OBS"> <templateId root= "216.840.1.364937...4.2" /> <id nullFlavor="NA" /> < code codeSystem="local" code="BILC" displayName="BILI CONJUGATED" /> < statusCode code="completed" /> <effectiveTime value="083405414550" /> <value unit="mg/dL" xsi:type="PQ" value="< 0.1" /> < referenceRange> <observationRange> <text>0.0-0.3</text> </observationRange> </referenceRange> </observation > </component> </organizer> </entry> <entry> <organizer moodCode= "EVN" classCode="BATTERY"> <templateId root="2.16.840.1.169681.10..4.1 " /> <id nullFlavor="NA" /> <code codeSystem="local" code="LIP" displayName="LIPASE" /> <statusCode code="completed" /> <component> <observation moodCode="EVN" classCode="OBS"> <templateId root= "2.16.840.1.702223.10.20.22.4.2" /> <id nullFlavor="NA" /> < code codeSystem="local" code="LIP" displayName="LIPASE" /> <statusCode code="completed" /> <effectiveTime value="724384510150" /> < value unit="Units/L" xsi:type="PQ" value="78" /> <referenceRange> <observationRange> <text>73-393</text> </ observationRange> </referenceRange> </observation> </ component> </organizer> </entry> <entry> <organizer moodCode="EVN" classCode="BATTERY"> <templateId root="2.16.840.1.474037.10.20.22.4.1" /> <id nullFlavor="NA" /> <code codeSystem="local" code="GLUMON" displayName="GLUCOSE (POC)" /> <statusCode code="completed" /> < component> <observation moodCode="EVN" classCode="OBS"> < templateId root="2.16.840.1.081672.10.20.22.4.2" /> <id nullFlavor="NA " /> <code codeSystem="local" code="GLUMON" displayName="GLUCOSE (POC) " /> <statusCode code="completed" /> <effectiveTime value= "867082381622" /> <value unit="mg/dL" xsi:type="PQ" value="119" /> <interpretationCode codeSystem="local" code="*" /> < referenceRange> <observationRange> <text>70-99</text> </observationRange> </referenceRange> </observation> </component> </organizer> </entry> <entry> <organizer moodCode="EVN " classCode="BATTERY"> <templateId root="840.1.072901.10.22.4.1" / > <id nullFlavor="NA" /> <code codeSystem="local" code="HH" displayName="HGB HCT" /> <statusCode code="completed" /> <component > <observation moodCode="EVN" classCode="OBS"> <templateId root= "840.1.184504.06.06.22.4.2" /> <id nullFlavor="NA" /> < code codeSystem="local" code="MCV" displayName="MEAN CELL VOLUME" /> < statusCode code="completed" /> <effectiveTime value="" /> <value unit="fl" xsi:type="PQ" value="77.0" /> < interpretationCode codeSystem="local" code="*" /> <referenceRange> <observationRange> <text>80.0-100.0</text> </ observationRange> </referenceRange> </observation> </ component> <component> <observation moodCode="EVN" classCode="OBS"> <templateId root="840.1.150587.06.06.22.4.2" /> <id nullFlavor="NA" /> <code codeSystem="local" code="HGBT" displayName= "HEMOGLOBIN" /> <statusCode code="completed" /> < effectiveTime value="" /> <value unit="gm/dL" xsi:type="PQ " value="8.2" /> <interpretationCode codeSystem="local" code="*" /> <referenceRange> <observationRange> <text>12.0- 16.0</text> </observationRange> </referenceRange> </ observation> </component> <component> <observation moodCode= "EVN" classCode="OBS"> <templateId root=".1.366010.10...4.2 " /> <id nullFlavor="NA" /> <code codeSystem="local" code= "HCTT" displayName="HEMATOCRIT" /> <statusCode code="completed" /> <effectiveTime value="459619400359" /> <value unit="%" xsi: type="PQ" value="27.1" /> <interpretationCode codeSystem="local" code= "*" /> <referenceRange> <observationRange> < text>37.0-47.0</text> </observationRange> </referenceRange> </observation> </component> </organizer> </entry> <entry> < organizer moodCode="EVN" classCode="BATTERY"> <templateId root= "216.840.1.838803.10..4.1" /> <id nullFlavor="NA" /> <code codeSystem="local" code="PT" displayName="PROTHROMBIN TIME WITH INR" /> < statusCode code="completed" /> <component> <observation moodCode= "EVN" classCode="OBS"> <templateId root="216.840.1.544898.10...4.2 " /> <id nullFlavor="NA" /> <code codeSystem="local" code= "INRX" displayName="INTERNATIONAL NORMAL RATIO" /> <statusCode code= "completed" /> <effectiveTime value="143656881901" /> <value unit="" xsi:type="PQ" value="1.0" /> <referenceRange> < observationRange> <text>0.9-1.1</text> </ observationRange> </referenceRange> </observation> </ component> <component> <observation moodCode="EVN" classCode="OBS"> <templateId root="216.840.1.409566.06.06.22.4.2" /> <id nullFlavor="NA" /> <code codeSystem="local" code="PTPAT" displayName= "PROTHROMBIN TIME" /> <statusCode code="completed" /> < effectiveTime value="020335643253" /> <value unit="sec" xsi:type="PQ" value="11.3" /> <referenceRange> <observationRange> <text>9.3-12.2</text> </observationRange> </ referenceRange> </observation> </component> </organizer> </entry > <entry> <organizer moodCode="EVN" classCode="BATTERY"> <templateId root="216.840.1.877843.10...4.1" /> <id nullFlavor="NA" /> <code codeSystem="local" code="TROPI" displayName="TROPONIN I" /> <statusCode code="completed" /> <component> <observation moodCode="EVN" classCode="OBS"> <templateId root="216.840.1.195271.10..22.4.2" /> <id nullFlavor="NA" /> <code codeSystem="local" code="TROPI" displayName="TROPONIN I" /> <statusCode code="completed" /> < effectiveTime value="545622531825" /> <value unit="ng/mL" xsi:type="PQ " value="< 0.02" /> <referenceRange> <observationRange> <text>< 0.07</text> </observationRange> </ referenceRange> </observation> </component> </organizer> </entry > <entry> <organizer moodCode="EVN" classCode="BATTERY"> <templateId root="216.840.1.429196.10...4.1" /> <id nullFlavor="NA" /> <code codeSystem="local" code="TROPI" displayName="TROPONIN I" /> <statusCode code="completed" /> <component> <observation moodCode="EVN" classCode="OBS"> <templateId root="10.03.840.1.501968.10..4.2" /> <id nullFlavor="NA" /> <code codeSystem="local" code="TROPI" displayName="TROPONIN I" /> <statusCode code="completed" /> < effectiveTime value="582157773925" /> <value unit="ng/mL" xsi:type="PQ " value="< 0.02" /> <referenceRange> <observationRange> <text>< 0.07</text> </observationRange> </ referenceRange> </observation> </component> </organizer> </entry > <entry> <organizer moodCode="EVN" classCode="BATTERY"> <templateId root="10.03.840.1.529375.10..22.4.1" /> <id nullFlavor="NA" /> <code codeSystem="local" code="GLUMON" displayName="GLUCOSE (POC)" /> < statusCode code="completed" /> <component> <observation moodCode= "EVN" classCode="OBS"> <templateId root="10.03.840.1.218316.10.4.2 " /> <id nullFlavor="NA" /> <code codeSystem="local" code= "GLUMON" displayName="GLUCOSE (POC)" /> <statusCode code="completed" / > <effectiveTime value="892671071698" /> <value unit="mg/dL" xsi:type="PQ" value="108" /> <interpretationCode codeSystem="local" code="*" /> <referenceRange> <observationRange> <text>70-99</text> </observationRange> </referenceRange> </observation> </component> </organizer> </entry> <entry> < organizer moodCode="EVN" classCode="BATTERY"> <templateId root= "216.840.1.887213.10..22.4.1" /> <id nullFlavor="NA" /> <code codeSystem="local" code="RENAL" displayName="RENAL FUNCTION PANEL" /> < statusCode code="completed" /> <component> <observation moodCode= "EVN" classCode="OBS"> <templateId root="2.16.840.1.206538.10...4.2 " /> <id nullFlavor="NA" /> <code codeSystem="local" code="K" displayName="POTASSIUM" /> <statusCode code="completed" /> < effectiveTime value="119535367065" /> <value unit="mmol/L" xsi:type="PQ " value="4.0" /> <referenceRange> <observationRange> <text>3.5-5.3</text> </observationRange> </ referenceRange> </observation> </component> <component> <observation moodCode="EVN" classCode="OBS"> <templateId root= "216.840.1.469010.10..22.4.2" /> <id nullFlavor="NA" /> < code codeSystem="local" code="eGFR" displayName="EST GFR (MDRD)" /> < statusCode code="completed" /> <effectiveTime value="959035108584" /> <value unit="mL/min" xsi:type="PQ" value="> 60" /> < referenceRange> <observationRange> <text>> 59</text> </observationRange> </referenceRange> </observation > </component> <component> <observation moodCode="EVN" classCode="OBS"> <templateId root="216.840.1.496044.10..22.4.2" /> <id nullFlavor="NA" /> <code codeSystem="local" code="GAP" displayName="ANION GAP" /> <statusCode code="completed" /> < effectiveTime value="" /> <value unit="mmol/L" xsi:type="PQ " value="8" /> <referenceRange> <observationRange> <text>5-15</text> </observationRange> </referenceRange > </observation> </component> <component> <observation moodCode="EVN" classCode="OBS"> <templateId root= "16.840.1.511310.10...4.2" /> <id nullFlavor="NA" /> < code codeSystem="local" code="eCrCl" displayName="EST CrCl (CG)" /> < statusCode code="completed" /> <effectiveTime value="" /> <value unit="mL/min" xsi:type="PQ" value="> 60" /> < referenceRange> <observationRange> <text>> 59</text> </observationRange> </referenceRange> </observation > </component> <component> <observation moodCode="EVN" classCode="OBS"> <templateId root="16.840.1.152004.10..22.4.2" /> <id nullFlavor="NA" /> <code codeSystem="local" code="GLU" displayName="GLUCOSE" /> <statusCode code="completed" /> < effectiveTime value="379750740013" /> <value unit="mg/dL" xsi:type="PQ " value="102" /> <interpretationCode codeSystem="local" code="*" /> <referenceRange> <observationRange> <text>70-99</ text> </observationRange> </referenceRange> </ observation> </component> <component> <observation moodCode= "EVN" classCode="OBS"> <templateId root="10.03.840.1.525350.10.20.22.4.2 " /> <id nullFlavor="NA" /> <code codeSystem="local" code="CA " displayName="CALCIUM" /> <statusCode code="completed" /> < effectiveTime value="262348306355" /> <value unit="mg/dL" xsi:type="PQ " value="8.2" /> <interpretationCode codeSystem="local" code="*" /> <referenceRange> <observationRange> <text>8.5- 10.1</text> </observationRange> </referenceRange> </ observation> </component> <component> <observation moodCode= "EVN" classCode="OBS"> <templateId root="10.03.840.1.142981.10..22.4.2 " /> <id nullFlavor="NA" /> <code codeSystem="local" code="BUN " displayName="BLOOD UREA NITROGEN" /> <statusCode code="completed" /> <effectiveTime value="345204252028" /> <value unit="mg/dL" xsi:type="PQ" value="15" /> <referenceRange> < observationRange> <text>7-20</text> </observationRange> </referenceRange> </observation> </component> < component> <observation moodCode="EVN" classCode="OBS"> < templateId root="10.03.840.1.512278.10.20.22.4.2" /> <id nullFlavor="NA " /> <code codeSystem="local" code="CREAT" displayName="CREATININE" /> <statusCode code="completed" /> <effectiveTime value= "230430004187" /> <value unit="mg/dL" xsi:type="PQ" value="0.8" /> <referenceRange> <observationRange> <text>0.6-1.0< /text> </observationRange> </referenceRange> </ observation> </component> <component> <observation moodCode= "EVN" classCode="OBS"> <templateId root="216.840.1.534822.10.20.22.4.2 " /> <id nullFlavor="NA" /> <code codeSystem="local" code="NA " displayName="SODIUM" /> <statusCode code="completed" /> < effectiveTime value="708984451207" /> <value unit="mmol/L" xsi:type="PQ " value="141" /> <referenceRange> <observationRange> <text>135-148</text> </observationRange> </ referenceRange> </observation> </component> <component> <observation moodCode="EVN" classCode="OBS"> <templateId root= "10.03.840.1.597182.10..22.4.2" /> <id nullFlavor="NA" /> < code codeSystem="local" code="CL" displayName="CHLORIDE" /> < statusCode code="completed" /> <effectiveTime value="812224648901" /> <value unit="mmol/L" xsi:type="PQ" value="107" /> < referenceRange> <observationRange> <text>98-110</text> </observationRange> </referenceRange> </observation> </component> <component> <observation moodCode="EVN" classCode ="OBS"> <templateId root="10.03.840.1.741438.10.204.2" /> < id nullFlavor="NA" /> <code codeSystem="local" code="CO2" displayName= "CARBON DIOXIDE" /> <statusCode code="completed" /> < effectiveTime value="306328844245" /> <value unit="mmol/L" xsi:type="PQ " value="26" /> <referenceRange> <observationRange> <text>21-32</text> </observationRange> </ referenceRange> </observation> </component> <component> <observation moodCode="EVN" classCode="OBS"> <templateId root= "2.16.840.1.118700.10..4.2" /> <id nullFlavor="NA" /> < code codeSystem="local" code="ALB" displayName="ALBUMIN" /> < statusCode code="completed" /> <effectiveTime value="871385357565" /> <value unit="gm/dL" xsi:type="PQ" value="3.0" /> < interpretationCode codeSystem="local" code="*" /> <referenceRange> <observationRange> <text>3.4-5.0</text> </ observationRange> </referenceRange> </observation> </ component> <component> <observation moodCode="EVN" classCode="OBS"> <templateId root="216.840.1.341693.06.06.22.4.2" /> <id nullFlavor="NA" /> <code codeSystem="local" code="PHOS" displayName= "PHOSPHORUS" /> <statusCode code="completed" /> < effectiveTime value="670617136284" /> <value unit="mg/dL" xsi:type="PQ " value="3.1" /> <referenceRange> <observationRange> <text>2.5-4.9</text> </observationRange> </ referenceRange> </observation> </component> </organizer> </entry > <entry> <organizer moodCode="EVN" classCode="BATTERY"> <templateId root="840.1.746481.10..22.4.1" /> <id nullFlavor="NA" /> <code codeSystem="local" code="HDLPRO" displayName="LIPID PANEL" /> <statusCode code="completed" /> <component> <observation moodCode="EVN" classCode="OBS"> <templateId root="10.03.840.1.754561.10..4.2" /> <id nullFlavor="NA" /> <code codeSystem="local" code="CHOL/HDL " displayName="CHOLESTEROL/HDL RATIO" /> <statusCode code="completed" / > <effectiveTime value="415127050471" /> <value unit="" xsi: type="PQ" value="3.7" /> <referenceRange> <observationRange > <text> < 5.0</text> </observationRange> </ referenceRange> </observation> </component> <component> <observation moodCode="EVN" classCode="OBS"> <templateId root= "10.03.840.1.007212.10...4.2" /> <id nullFlavor="NA" /> < code codeSystem="local" code="LDLX" displayName="LDL CHOLESTEROL" /> < statusCode code="completed" /> <effectiveTime value="086986659881" /> <value unit="mg/dL" xsi:type="PQ" value="93" /> < referenceRange> <observationRange> <text>< 100</text > </observationRange> </referenceRange> </observation > </component> <component> <observation moodCode="EVN" classCode="OBS"> <templateId root="840.1.528389.10..22.4.2" /> <id nullFlavor="NA" /> <code codeSystem="local" code="VLDL" displayName="VLDL CHOLESTEROL" /> <statusCode code="completed" /> <effectiveTime value="" /> <value unit="mg/dL" xsi: type="PQ" value="27" /> <referenceRange> <observationRange> <text>< 30</text> </observationRange> </ referenceRange> </observation> </component> <component> <observation moodCode="EVN" classCode="OBS"> <templateId root= "2.16.840.1.389228.10..4.2" /> <id nullFlavor="NA" /> < code codeSystem="local" code="TRIG" displayName="TRIGLYCERIDES" /> < statusCode code="completed" /> <effectiveTime value="" /> <value unit="mg/dL" xsi:type="PQ" value="135" /> < referenceRange> <observationRange> <text>< 150</text > </observationRange> </referenceRange> </observation > </component> <component> <observation moodCode="EVN" classCode="OBS"> <templateId root="216.840.1.609189.10..22.4.2" /> <id nullFlavor="NA" /> <code codeSystem="local" code="CHOL" displayName="CHOLESTEROL" /> <statusCode code="completed" /> < effectiveTime value="454248743317" /> <value unit="mg/dL" xsi:type="PQ " value="164" /> <referenceRange> <observationRange> <text>< 200</text> </observationRange> </ referenceRange> </observation> </component> <component> <observation moodCode="EVN" classCode="OBS"> <templateId root= "216.840.1.247827.10..22.4.2" /> <id nullFlavor="NA" /> < code codeSystem="local" code="HDL" displayName="HDL CHOLESTEROL" /> < statusCode code="completed" /> <effectiveTime value="517261964076" /> <value unit="mg/dL" xsi:type="PQ" value="44" /> < referenceRange> <observationRange> <text>> 39</text> </observationRange> </referenceRange> </observation > </component> </organizer> </entry> <entry> <organizer moodCode= "EVN" classCode="BATTERY"> <templateId root="216.840.1.141361.10..22.4.1 " /> <id nullFlavor="NA" /> <code codeSystem="local" code="MAG" displayName="MAGNESIUM" /> <statusCode code="completed" /> <component > <observation moodCode="EVN" classCode="OBS"> <templateId root= "216.840.1.570025.10..22.4.2" /> <id nullFlavor="NA" /> < code codeSystem="local" code="MAG" displayName="MAGNESIUM" /> < statusCode code="completed" /> <effectiveTime value="099222322349" /> <value unit="mg/dL" xsi:type="PQ" value="2.4" /> < referenceRange> <observationRange> <text>1.8-2.4</text> </observationRange> </referenceRange> </observation > </component> </organizer> </entry> <entry> <organizer moodCode= "EVN" classCode="BATTERY"> <templateId root="10.03.840.1.191161.06.06.22.4.1 " /> <id nullFlavor="NA" /> <code codeSystem="local" code="TROPI" displayName="TROPONIN I" /> <statusCode code="completed" /> <component > <observation moodCode="EVN" classCode="OBS"> <templateId root= "840.1.726249.06.06.22.4.2" /> <id nullFlavor="NA" /> < code codeSystem="local" code="TROPI" displayName="TROPONIN I" /> < statusCode code="completed" /> <effectiveTime value="954194012120" /> <value unit="ng/mL" xsi:type="PQ" value="< 0.02" /> < referenceRange> <observationRange> <text>< 0.07</text > </observationRange> </referenceRange> </observation > </component> </organizer> </entry> <entry> <organizer moodCode= "EVN" classCode="BATTERY"> <templateId root="840.1.849751.06.06.22.4.1 " /> <id nullFlavor="NA" /> <code codeSystem="local" code="CBCD" displayName="CBC W/DIFF" /> <statusCode code="completed" /> <component > <observation moodCode="EVN" classCode="OBS"> <templateId root= "840.1.187462.06.06.22.4.2" /> <id nullFlavor="NA" /> < code codeSystem="local" code="BA#" displayName="BASOPHIL #" /> < statusCode code="completed" /> <effectiveTime value="139593607374" /> <value unit="k/cumm" xsi:type="PQ" value="0.1" /> < referenceRange> <observationRange> <text>0.0-0.2</text> </observationRange> </referenceRange> </observation > </component> <component> <observation moodCode="EVN" classCode="OBS"> <templateId root="216.840.1.297114.10..22.4.2" /> <id nullFlavor="NA" /> <code codeSystem="local" code="BA% " displayName="BASOPHIL %" /> <statusCode code="completed" /> <effectiveTime value="726554388917" /> <value unit="%" xsi: type="PQ" value="1" /> <referenceRange> <observationRange> <text>0-1</text> </observationRange> </ referenceRange> </observation> </component> <component> <observation moodCode="EVN" classCode="OBS"> <templateId root= "10.03.840.1.100891.10..4.2" /> <id nullFlavor="NA" /> < code codeSystem="local" code="EO#" displayName="EOSINOPHIL #" /> < statusCode code="completed" /> <effectiveTime value="144472349925" /> <value unit="k/cumm" xsi:type="PQ" value="0.2" /> < referenceRange> <observationRange> <text>0.1-0.5</text> </observationRange> </referenceRange> </observation > </component> <component> <observation moodCode="EVN" classCode="OBS"> <templateId root="10.03.840.1.337772.10.20.22.4.2" /> <id nullFlavor="NA" /> <code codeSystem="local" code="EO% " displayName="EOSINOPHIL %" /> <statusCode code="completed" /> <effectiveTime value="518361404602" /> <value unit="%" xsi: type="PQ" value="2" /> <referenceRange> <observationRange> <text>2-4</text> </observationRange> </ referenceRange> </observation> </component> <component> <observation moodCode="EVN" classCode="OBS"> <templateId root= "216.840.1.907082.10..4.2" /> <id nullFlavor="NA" /> < code codeSystem="local" code="GR#" displayName="GRANULOCYTE #" /> < statusCode code="completed" /> <effectiveTime value="875178115701" /> <value unit="k/cumm" xsi:type="PQ" value="4.8" /> < referenceRange> <observationRange> <text>2.0-9.0</text> </observationRange> </referenceRange> </observation > </component> <component> <observation moodCode="EVN" classCode="OBS"> <templateId root="16.840.1.926866.10..4.2" /> <id nullFlavor="NA" /> <code codeSystem="local" code="GR% " displayName="GRANULOCYTE %" /> <statusCode code="completed" /> <effectiveTime value="757134142914" /> <value unit="%" xsi: type="PQ" value="64" /> <referenceRange> <observationRange> <text>50-75</text> </observationRange> </ referenceRange> </observation> </component> <component> <observation moodCode="EVN" classCode="OBS"> <templateId root= "216.840.1.529879.06.06.22.4.2" /> <id nullFlavor="NA" /> < code codeSystem="local" code="LY#" displayName="LYMPHOCYTE #" /> < statusCode code="completed" /> <effectiveTime value="603634505820" /> <value unit="k/cumm" xsi:type="PQ" value="1.5" /> < referenceRange> <observationRange> <text>1.0-4.0</text> </observationRange> </referenceRange> </observation > </component> <component> <observation moodCode="EVN" classCode="OBS"> <templateId root="2.16.840.1.244292.06.06.224.2" /> <id nullFlavor="NA" /> <code codeSystem="local" code="LY% " displayName="LYMPHOCYTE %" /> <statusCode code="completed" /> <effectiveTime value="" /> <value unit="%" xsi: type="PQ" value="21" /> <referenceRange> <observationRange> <text>20-30</text> </observationRange> </ referenceRange> </observation> </component> <component> <observation moodCode="EVN" classCode="OBS"> <templateId root= "2.16.840.1.028672.10..4.2" /> <id nullFlavor="NA" /> < code codeSystem="local" code="MCH" displayName="MEAN CELL HGB" /> < statusCode code="completed" /> <effectiveTime value="" /> <value unit="pg" xsi:type="PQ" value="23.3" /> < interpretationCode codeSystem="local" code="*" /> <referenceRange> <observationRange> <text>27.0-33.0</text> </ observationRange> </referenceRange> </observation> </ component> <component> <observation moodCode="EVN" classCode="OBS"> <templateId root="10.03.840.1.612444.10.20.22.4.2" /> <id nullFlavor="NA" /> <code codeSystem="local" code="MCHC" displayName= "MEAN CELL HGB CONCENTRATION" /> <statusCode code="completed" /> <effectiveTime value="" /> <value unit="g/dL" xsi:type= "PQ" value="29.9" /> <interpretationCode codeSystem="local" code="*" / > <referenceRange> <observationRange> <text> 32.0-37.0</text> </observationRange> </referenceRange> </observation> </component> <component> <observation moodCode="EVN" classCode="OBS"> <templateId root= "840.1.696654.1022.4.2" /> <id nullFlavor="NA" /> < code codeSystem="local" code="MCV" displayName="MEAN CELL VOLUME" /> < statusCode code="completed" /> <effectiveTime value="095472623700" /> <value unit="fl" xsi:type="PQ" value="77.8" /> < interpretationCode codeSystem="local" code="*" /> <referenceRange> <observationRange> <text>80.0-100.0</text> </ observationRange> </referenceRange> </observation> </ component> <component> <observation moodCode="EVN" classCode="OBS"> <templateId root="10.03.840.1.029544.10.20.22.4.2" /> <id nullFlavor="NA" /> <code codeSystem="local" code="MO#" displayName= "MONOCYTE #" /> <statusCode code="completed" /> < effectiveTime value="151403433782" /> <value unit="k/cumm" xsi:type="PQ " value="0.9" /> <referenceRange> <observationRange> <text>0.1-1.0</text> </observationRange> </ referenceRange> </observation> </component> <component> <observation moodCode="EVN" classCode="OBS"> <templateId root= "216.840.1.779235.10.20.22.4.2" /> <id nullFlavor="NA" /> < code codeSystem="local" code="MO%" displayName="MONOCYTE %" /> <statusCode code="completed" /> <effectiveTime value="006596257569" /> <value unit="%" xsi:type="PQ" value="12" /> < interpretationCode codeSystem="local" code="*" /> <referenceRange> <observationRange> <text>4-6</text> </ observationRange> </referenceRange> </observation> </ component> <component> <observation moodCode="EVN" classCode="OBS"> <templateId root="216.840.1.525749.10.20.22.4.2" /> <id nullFlavor="NA" /> <code codeSystem="local" code="RBC" displayName=" RED BLOOD CELL" /> <statusCode code="completed" /> < effectiveTime value="992074813061" /> <value unit="m/cumm" xsi:type="PQ " value="3.61" /> <interpretationCode codeSystem="local" code="*" /> <referenceRange> <observationRange> <text>4.00- 6.00</text> </observationRange> </referenceRange> </ observation> </component> <component> <observation moodCode= "EVN" classCode="OBS"> <templateId root="16.840.1.300142.10..4.2 " /> <id nullFlavor="NA" /> <code codeSystem="local" code="RDW " displayName="RED CELL DISTRIBUTION WIDTH" /> <statusCode code= "completed" /> <effectiveTime value="" /> <value unit="%" xsi:type="PQ" value="15.2" /> <referenceRange> <observationRange> <text>11.0-15.6</text> </ observationRange> </referenceRange> </observation> </ component> <component> <observation moodCode="EVN" classCode="OBS"> <templateId root="10.03.840.1.339755.06.06.22.4.2" /> <id nullFlavor="NA" /> <code codeSystem="local" code="WBC" displayName= "WHITE BLOOD CELL" /> <statusCode code="completed" /> < effectiveTime value="" /> <value unit="k/cumm" xsi:type="PQ " value="7.4" /> <referenceRange> <observationRange> <text>5.0-10.0</text> </observationRange> </ referenceRange> </observation> </component> <component> <observation moodCode="EVN" classCode="OBS"> <templateId root= "16.840.1.108765.10..22.4.2" /> <id nullFlavor="NA" /> < code codeSystem="local" code="HGBT" displayName="HEMOGLOBIN" /> < statusCode code="completed" /> <effectiveTime value="" /> <value unit="gm/dL" xsi:type="PQ" value="8.4" /> < interpretationCode codeSystem="local" code="*" /> <referenceRange> <observationRange> <text>12.0-16.0</text> </ observationRange> </referenceRange> </observation> </ component> <component> <observation moodCode="EVN" classCode="OBS"> <templateId root="10.03.840.1.561237.10.4.2" /> <id nullFlavor="NA" /> <code codeSystem="local" code="HCTT" displayName= "HEMATOCRIT" /> <statusCode code="completed" /> < effectiveTime value="607598475062" /> <value unit="%" xsi:type="PQ " value="28.1" /> <interpretationCode codeSystem="local" code="*" /> <referenceRange> <observationRange> <text>37.0- 47.0</text> </observationRange> </referenceRange> </ observation> </component> <component> <observation moodCode= "EVN" classCode="OBS"> <templateId root="10.03.840.1.375117.06.06.22.4.2 " /> <id nullFlavor="NA" /> <code codeSystem="local" code="PLT " displayName="PLATELET COUNT" /> <statusCode code="completed" /> <effectiveTime value="328328456214" /> <value unit="k/cumm" xsi: type="PQ" value="437" /> <interpretationCode codeSystem="local" code="* " /> <referenceRange> <observationRange> <text> 150-400</text> </observationRange> </referenceRange> </observation> </component> </organizer> </entry> <entry> < organizer moodCode="EVN" classCode="BATTERY"> <templateId root= "10.03.830.1.849470.06.06.22.4.1" /> <id nullFlavor="NA" /> <code codeSystem="local" code="HBA1C" displayName="HEMOGLOBIN A1C" /> < statusCode code="completed" /> <component> <observation moodCode= "EVN" classCode="OBS"> <templateId root="840.1.769162.06.06.22.4.2 " /> <id nullFlavor="NA" /> <code codeSystem="local" code= "HBA1C" displayName="HEMOGLOBIN A1C" /> <statusCode code="completed" / > <effectiveTime value="952558550823" /> <value unit="%" xsi:type="PQ" value="6.7" /> <interpretationCode codeSystem="local" code="*" /> <referenceRange> <observationRange> <text>< 5.7</text> </observationRange> </referenceRange > </observation> </component> </organizer> </entry> <entry> <organizer moodCode="EVN" classCode="BATTERY"> <templateId root= "840.1.570421.06.06.22.4.1" /> <id nullFlavor="NA" /> <code codeSystem="local" code="GLUMON" displayName="GLUCOSE (POC)" /> < statusCode code="completed" /> <component> <observation moodCode= "EVN" classCode="OBS"> <templateId root="840.1.729940.06.06.22.4.2 " /> <id nullFlavor="NA" /> <code codeSystem="local" code= "GLUMON" displayName="GLUCOSE (POC)" /> <statusCode code="completed" / > <effectiveTime value="433730080273" /> <value unit="mg/dL" xsi:type="PQ" value="103" /> <interpretationCode codeSystem="local" code="*" /> <referenceRange> <observationRange> <text>70-99</text> </observationRange> </referenceRange> </observation> </component> </organizer> </entry> <entry> < organizer moodCode="EVN" classCode="BATTERY"> <templateId root= "10.03.840.1.507875.10.22.4.1" /> <id nullFlavor="NA" /> <code codeSystem="local" code="GLUMON" displayName="GLUCOSE (POC)" /> < statusCode code="completed" /> <component> <observation moodCode= "EVN" classCode="OBS"> <templateId root="10.03.840.1.826074.10...4.2 " /> <id nullFlavor="NA" /> <code codeSystem="local" code= "GLUMON" displayName="GLUCOSE (POC)" /> <statusCode code="completed" / > <effectiveTime value="332830395490" /> <value unit="mg/dL" xsi:type="PQ" value="92" /> <referenceRange> < observationRange> <text>70-99</text> </observationRange > </referenceRange> </observation> </component> </ organizer> </entry> <entry> <organizer moodCode="EVN" classCode="BATTERY"> <templateId root="10.03.840.1.040936.10..22.4.1" /> <id nullFlavor= "NA" /> <code codeSystem="local" code="GLUMON" displayName="GLUCOSE (POC)" /> <statusCode code="completed" /> <component> <observation moodCode="EVN" classCode="OBS"> <templateId root= "840.1.350997.10.20.22.4.2" /> <id nullFlavor="NA" /> < code codeSystem="local" code="GLUMON" displayName="GLUCOSE (POC)" /> < statusCode code="completed" /> <effectiveTime value="453577800873" /> <value unit="mg/dL" xsi:type="PQ" value="110" /> < interpretationCode codeSystem="local" code="*" /> <referenceRange> <observationRange> <text>70-99</text> </ observationRange> </referenceRange> </observation> </ component> </organizer> </entry> <entry> <organizer moodCode="EVN" classCode="BATTERY"> <templateId root="2.16.840.1.928047.10.20.22.4.1" /> <id nullFlavor="NA" /> <code codeSystem="local" code="GLUMON" displayName="GLUCOSE (POC)" /> <statusCode code="completed" /> < component> <observation moodCode="EVN" classCode="OBS"> < templateId root="2.16.840.1.640100.10.20.22.4.2" /> <id nullFlavor="NA " /> <code codeSystem="local" code="GLUMON" displayName="GLUCOSE (POC) " /> <statusCode code="completed" /> <effectiveTime value= "077517336062" /> <value unit="mg/dL" xsi:type="PQ" value="193" /> <interpretationCode codeSystem="local" code="*" /> < referenceRange> <observationRange> <text>70-99</text> </observationRange> </referenceRange> </observation> </component> </organizer> </entry> <entry> <organizer moodCode="EVN " classCode="BATTERY"> <templateId root="840.1.591274.10.4.1" / > <id nullFlavor="NA" /> <code codeSystem="local" code="GLUMON" displayName="GLUCOSE (POC)" /> <statusCode code="completed" /> < component> <observation moodCode="EVN" classCode="OBS"> < templateId root="840.1.310126.06.06.22.4.2" /> <id nullFlavor="NA " /> <code codeSystem="local" code="GLUMON" displayName="GLUCOSE (POC) " /> <statusCode code="completed" /> <effectiveTime value= "598903345312" /> <value unit="mg/dL" xsi:type="PQ" value="125" /> <interpretationCode codeSystem="local" code="*" /> < referenceRange> <observationRange> <text>70-99</text> </observationRange> </referenceRange> </observation> </component> </organizer> </entry> <entry> <organizer moodCode="EVN " classCode="BATTERY"> <templateId root="840.1.697149.06.06.22.4.1" / > <id nullFlavor="NA" /> <code codeSystem="local" code="CBCD" displayName="CBC W/DIFF" /> <statusCode code="completed" /> <component > <observation moodCode="EVN" classCode="OBS"> <templateId root= "840.1.985466.06.06.22.4.2" /> <id nullFlavor="NA" /> < code codeSystem="local" code="BA#" displayName="BASOPHIL #" /> < statusCode code="completed" /> <effectiveTime value="664403209225" /> <value unit="k/cumm" xsi:type="PQ" value="0.1" /> < referenceRange> <observationRange> <text>0.0-0.2</text> </observationRange> </referenceRange> </observation > </component> <component> <observation moodCode="EVN" classCode="OBS"> <templateId root="216.840.1.454527.10..4.2" /> <id nullFlavor="NA" /> <code codeSystem="local" code="BA% " displayName="BASOPHIL %" /> <statusCode code="completed" /> <effectiveTime value="" /> <value unit="%" xsi: type="PQ" value="1" /> <referenceRange> <observationRange> <text>0-1</text> </observationRange> </ referenceRange> </observation> </component> <component> <observation moodCode="EVN" classCode="OBS"> <templateId root= "10.03.840.1.992442.06.06.22.4.2" /> <id nullFlavor="NA" /> < code codeSystem="local" code="EO#" displayName="EOSINOPHIL #" /> < statusCode code="completed" /> <effectiveTime value="" /> <value unit="k/cumm" xsi:type="PQ" value="0.2" /> < referenceRange> <observationRange> <text>0.1-0.5</text> </observationRange> </referenceRange> </observation > </component> <component> <observation moodCode="EVN" classCode="OBS"> <templateId root="10.03.840.1.680746.10...4.2" /> <id nullFlavor="NA" /> <code codeSystem="local" code="EO% " displayName="EOSINOPHIL %" /> <statusCode code="completed" /> <effectiveTime value="" /> <value unit="%" xsi: type="PQ" value="3" /> <referenceRange> <observationRange> <text>2-4</text> </observationRange> </ referenceRange> </observation> </component> <component> <observation moodCode="EVN" classCode="OBS"> <templateId root= "216.840.1.550018.10.20.22.4.2" /> <id nullFlavor="NA" /> < code codeSystem="local" code="GR#" displayName="GRANULOCYTE #" /> < statusCode code="completed" /> <effectiveTime value="" /> <value unit="k/cumm" xsi:type="PQ" value="3.2" /> < referenceRange> <observationRange> <text>2.0-9.0</text> </observationRange> </referenceRange> </observation > </component> <component> <observation moodCode="EVN" classCode="OBS"> <templateId root="16.840.1.446676.10.20.22.4.2" /> <id nullFlavor="NA" /> <code codeSystem="local" code="GR% " displayName="GRANULOCYTE %" /> <statusCode code="completed" /> <effectiveTime value="" /> <value unit="%" xsi: type="PQ" value="61" /> <referenceRange> <observationRange> <text>50-75</text> </observationRange> </ referenceRange> </observation> </component> <component> <observation moodCode="EVN" classCode="OBS"> <templateId root= "16.840.1.843110.10.2022.4.2" /> <id nullFlavor="NA" /> < code codeSystem="local" code="LY#" displayName="LYMPHOCYTE #" /> < statusCode code="completed" /> <effectiveTime value="" /> <value unit="k/cumm" xsi:type="PQ" value="1.3" /> < referenceRange> <observationRange> <text>1.0-4.0</text> </observationRange> </referenceRange> </observation > </component> <component> <observation moodCode="EVN" classCode="OBS"> <templateId root="10.03.840.1.027083.10.4.2" /> <id nullFlavor="NA" /> <code codeSystem="local" code="LY% " displayName="LYMPHOCYTE %" /> <statusCode code="completed" /> <effectiveTime value="" /> <value unit="%" xsi: type="PQ" value="25" /> <referenceRange> <observationRange> <text>20-30</text> </observationRange> </ referenceRange> </observation> </component> <component> <observation moodCode="EVN" classCode="OBS"> <templateId root= "10.03.840.1.848416.10..4.2" /> <id nullFlavor="NA" /> < code codeSystem="local" code="MCH" displayName="MEAN CELL HGB" /> < statusCode code="completed" /> <effectiveTime value="" /> <value unit="pg" xsi:type="PQ" value="22.9" /> < interpretationCode codeSystem="local" code="*" /> <referenceRange> <observationRange> <text>27.0-33.0</text> </ observationRange> </referenceRange> </observation> </ component> <component> <observation moodCode="EVN" classCode="OBS"> <templateId root="10.03.840.1.938772.10.20.22.4.2" /> <id nullFlavor="NA" /> <code codeSystem="local" code="[facility]" displayName= "MEAN CELL HGB CONCENTRATION" /> <statusCode code="completed" /> <effectiveTime value="" /> <value unit="g/dL" xsi:type= "PQ" value="29.6" /> <interpretationCode codeSystem="local" code="*" / > <referenceRange> <observationRange> <text> 32.0-37.0</text> </observationRange> </referenceRange> </observation> </component> <component> <observation moodCode="EVN" classCode="OBS"> <templateId root= "840.1.419579.10.20.22.4.2" /> <id nullFlavor="NA" /> < code codeSystem="local" code="MCV" displayName="MEAN CELL VOLUME" /> < statusCode code="completed" /> <effectiveTime value="" /> <value unit="fl" xsi:type="PQ" value="77.4" /> < interpretationCode codeSystem="local" code="*" /> <referenceRange> <observationRange> <text>80.0-100.0</text> </ observationRange> </referenceRange> </observation> </ component> <component> <observation moodCode="EVN" classCode="OBS"> <templateId root="10.03.840.1.156206.10.20.22.4.2" /> <id nullFlavor="NA" /> <code codeSystem="local" code="MO#" displayName= "MONOCYTE #" /> <statusCode code="completed" /> < effectiveTime value="" /> <value unit="k/cumm" xsi:type="PQ " value="0.5" /> <referenceRange> <observationRange> <text>0.1-1.0</text> </observationRange> </ referenceRange> </observation> </component> <component> <observation moodCode="EVN" classCode="OBS"> <templateId root= "216.840.1.025492.10..22.4.2" /> <id nullFlavor="NA" /> < code codeSystem="local" code="MO%" displayName="MONOCYTE %" /> <statusCode code="completed" /> <effectiveTime value="" /> <value unit="%" xsi:type="PQ" value="10" /> < interpretationCode codeSystem="local" code="*" /> <referenceRange> <observationRange> <text>4-6</text> </ observationRange> </referenceRange> </observation> </ component> <component> <observation moodCode="EVN" classCode="OBS"> <templateId root="216.840.1.895649.10..22.4.2" /> <id nullFlavor="NA" /> <code codeSystem="local" code="RBC" displayName=" RED BLOOD CELL" /> <statusCode code="completed" /> < effectiveTime value="" /> <value unit="m/cumm" xsi:type="PQ " value="3.54" /> <interpretationCode codeSystem="local" code="*" /> <referenceRange> <observationRange> <text>4.00- 6.00</text> </observationRange> </referenceRange> </ observation> </component> <component> <observation moodCode= "EVN" classCode="OBS"> <templateId root="216.840.1.413094.1022.4.2 " /> <id nullFlavor="NA" /> <code codeSystem="local" code="RDW " displayName="RED CELL DISTRIBUTION WIDTH" /> <statusCode code= "completed" /> <effectiveTime value="" /> <value unit="%" xsi:type="PQ" value="14.7" /> <referenceRange> <observationRange> <text>11.0-15.6</text> </ observationRange> </referenceRange> </observation> </ component> <component> <observation moodCode="EVN" classCode="OBS"> <templateId root="10.03.840.1.615158.06.06.22.4.2" /> <id nullFlavor="NA" /> <code codeSystem="local" code="WBC" displayName= "WHITE BLOOD CELL" /> <statusCode code="completed" /> < effectiveTime value="" /> <value unit="k/cumm" xsi:type="PQ " value="5.3" /> <referenceRange> <observationRange> <text>5.0-10.0</text> </observationRange> </ referenceRange> </observation> </component> <component> <observation moodCode="EVN" classCode="OBS"> <templateId root= "216.840.1.099783.22.4.2" /> <id nullFlavor="NA" /> < code codeSystem="local" code="HGBT" displayName="HEMOGLOBIN" /> < statusCode code="completed" /> <effectiveTime value="" /> <value unit="gm/dL" xsi:type="PQ" value="8.1" /> < interpretationCode codeSystem="local" code="*" /> <referenceRange> <observationRange> <text>12.0-16.0</text> </ observationRange> </referenceRange> </observation> </ component> <component> <observation moodCode="EVN" classCode="OBS"> <templateId root="216.840.1.784706.22.4.2" /> <id nullFlavor="NA" /> <code codeSystem="local" code="HCTT" displayName= "HEMATOCRIT" /> <statusCode code="completed" /> < effectiveTime value="344625858147" /> <value unit="%" xsi:type="PQ " value="27.4" /> <interpretationCode codeSystem="local" code="*" /> <referenceRange> <observationRange> <text>37.0- 47.0</text> </observationRange> </referenceRange> </ observation> </component> <component> <observation moodCode= "EVN" classCode="OBS"> <templateId root="216.840.1.703259.06.06.22.4.2 " /> <id nullFlavor="NA" /> <code codeSystem="local" code="PLT " displayName="PLATELET COUNT" /> <statusCode code="completed" /> <effectiveTime value="241670654997" /> <value unit="k/cumm" xsi: type="PQ" value="389" /> <referenceRange> <observationRange > <text>150-400</text> </observationRange> </ referenceRange> </observation> </component> </organizer> </entry > <entry> <organizer moodCode="EVN" classCode="BATTERY"> <templateId root="216.840.1.268220.06.06.22.4.1" /> <id nullFlavor="NA" /> <code codeSystem="local" code="VITB12" displayName="VITAMIN B12" /> <statusCode code="completed" /> <component> <observation moodCode="EVN" classCode="OBS"> <templateId root="216.840.1.526230.10...4.2" /> <id nullFlavor="NA" /> <code codeSystem="local" code="VITB12" displayName="VITAMIN B12" /> <statusCode code="completed" /> < effectiveTime value="912822064269" /> <value unit="pg/mL" xsi:type="PQ " value="593" /> <referenceRange> <observationRange> <text>211-911</text> </observationRange> </ referenceRange> </observation> </component> </organizer> </entry > <entry> <organizer moodCode="EVN" classCode="BATTERY"> <templateId root="16.840.1.507602...4.1" /> <id nullFlavor="NA" /> <code codeSystem="local" code="RENAL" displayName="RENAL FUNCTION PANEL" /> < statusCode code="completed" /> <component> <observation moodCode= "EVN" classCode="OBS"> <templateId root="16.840.1.848709.10..22.4.2 " /> <id nullFlavor="NA" /> <code codeSystem="local" code="K" displayName="POTASSIUM" /> <statusCode code="completed" /> < effectiveTime value="013585944250" /> <value unit="mmol/L" xsi:type="PQ " value="4.2" /> <referenceRange> <observationRange> <text>3.5-5.3</text> </observationRange> </ referenceRange> </observation> </component> <component> <observation moodCode="EVN" classCode="OBS"> <templateId root= "216.840.1.122177.10.4.2" /> <id nullFlavor="NA" /> < code codeSystem="local" code="eGFR" displayName="EST GFR (MDRD)" /> < statusCode code="completed" /> <effectiveTime value="" /> <value unit="mL/min" xsi:type="PQ" value="> 60" /> < referenceRange> <observationRange> <text>> 59</text> </observationRange> </referenceRange> </observation > </component> <component> <observation moodCode="EVN" classCode="OBS"> <templateId root="10.03.840.1.042633.06.06.22.4.2" /> <id nullFlavor="NA" /> <code codeSystem="local" code="GAP" displayName="ANION GAP" /> <statusCode code="completed" /> < effectiveTime value="" /> <value unit="mmol/L" xsi:type="PQ " value="7" /> <referenceRange> <observationRange> <text>5-15</text> </observationRange> </referenceRange > </observation> </component> <component> <observation moodCode="EVN" classCode="OBS"> <templateId root= "10.03.840.1.903930.06.06.22.4.2" /> <id nullFlavor="NA" /> < code codeSystem="local" code="eCrCl" displayName="EST CrCl (CG)" /> < statusCode code="completed" /> <effectiveTime value="" /> <value unit="mL/min" xsi:type="PQ" value="> 60" /> < referenceRange> <observationRange> <text>> 59</text> </observationRange> </referenceRange> </observation > </component> <component> <observation moodCode="EVN" classCode="OBS"> <templateId root="216.840.1.558481.10.2022.4.2" /> <id nullFlavor="NA" /> <code codeSystem="local" code="GLU" displayName="GLUCOSE" /> <statusCode code="completed" /> < effectiveTime value="822636751075" /> <value unit="mg/dL" xsi:type="PQ " value="110" /> <interpretationCode codeSystem="local" code="*" /> <referenceRange> <observationRange> <text>70-99</ text> </observationRange> </referenceRange> </ observation> </component> <component> <observation moodCode= "EVN" classCode="OBS"> <templateId root="10.03.840.1.822729.06.06.22.4.2 " /> <id nullFlavor="NA" /> <code codeSystem="local" code="CA " displayName="CALCIUM" /> <statusCode code="completed" /> < effectiveTime value="128526768657" /> <value unit="mg/dL" xsi:type="PQ " value="8.6" /> <referenceRange> <observationRange> <text>8.5-10.1</text> </observationRange> </ referenceRange> </observation> </component> <component> <observation moodCode="EVN" classCode="OBS"> <templateId root= "10.03.840.1.699294.10.20.22.4.2" /> <id nullFlavor="NA" /> < code codeSystem="local" code="BUN" displayName="BLOOD UREA NITROGEN" /> <statusCode code="completed" /> <effectiveTime value="" / > <value unit="mg/dL" xsi:type="PQ" value="12" /> < referenceRange> <observationRange> <text>7-20</text> </observationRange> </referenceRange> </observation> </component> <component> <observation moodCode="EVN" classCode= "OBS"> <templateId root="216.840.1.286079.10..22.4.2" /> < id nullFlavor="NA" /> <code codeSystem="local" code="CREAT" displayName ="CREATININE" /> <statusCode code="completed" /> < effectiveTime value="578735417828" /> <value unit="mg/dL" xsi:type="PQ " value="0.9" /> <referenceRange> <observationRange> <text>0.6-1.0</text> </observationRange> </ referenceRange> </observation> </component> <component> <observation moodCode="EVN" classCode="OBS"> <templateId root= "16.840.1.957146.10..22.4.2" /> <id nullFlavor="NA" /> < code codeSystem="local" code="NA" displayName="SODIUM" /> <statusCode code="completed" /> <effectiveTime value="953231097174" /> < value unit="mmol/L" xsi:type="PQ" value="139" /> <referenceRange> <observationRange> <text>135-148</text> </ observationRange> </referenceRange> </observation> </ component> <component> <observation moodCode="EVN" classCode="OBS"> <templateId root="10.03.840.1.891269.06.06.22.4.2" /> <id nullFlavor="NA" /> <code codeSystem="local" code="CL" displayName= "CHLORIDE" /> <statusCode code="completed" /> <effectiveTime value="" /> <value unit="mmol/L" xsi:type="PQ" value="104" /> <referenceRange> <observationRange> <text>98 -110</text> </observationRange> </referenceRange> </ observation> </component> <component> <observation moodCode= "EVN" classCode="OBS"> <templateId root="216.840.1.652679...4.2 " /> <id nullFlavor="NA" /> <code codeSystem="local" code="CO2 " displayName="CARBON DIOXIDE" /> <statusCode code="completed" /> <effectiveTime value="" /> <value unit="mmol/L" xsi: type="PQ" value="28" /> <referenceRange> <observationRange> <text>21-32</text> </observationRange> </ referenceRange> </observation> </component> <component> <observation moodCode="EVN" classCode="OBS"> <templateId root= "2.16.840.1.882909...4.2" /> <id nullFlavor="NA" /> < code codeSystem="local" code="ALB" displayName="ALBUMIN" /> < statusCode code="completed" /> <effectiveTime value="277858813846" /> <value unit="gm/dL" xsi:type="PQ" value="3.1" /> < interpretationCode codeSystem="local" code="*" /> <referenceRange> <observationRange> <text>3.4-5.0</text> </ observationRange> </referenceRange> </observation> </ component> <component> <observation moodCode="EVN" classCode="OBS"> <templateId root="2.16.840.1.930740.10..22.4.2" /> <id nullFlavor="NA" /> <code codeSystem="local" code="PHOS" displayName= "PHOSPHORUS" /> <statusCode code="completed" /> < effectiveTime value="" /> <value unit="mg/dL" xsi:type="PQ " value="2.9" /> <referenceRange> <observationRange> <text>2.5-4.9</text> </observationRange> </ referenceRange> </observation> </component> </organizer> </entry > <entry> <organizer moodCode="EVN" classCode="BATTERY"> <templateId root="2.16.840.1.113793.10..22.4.1" /> <id nullFlavor="NA" /> <code codeSystem="local" code="MAG" displayName="MAGNESIUM" /> <statusCode code= "completed" /> <component> <observation moodCode="EVN" classCode= "OBS"> <templateId root="2.16.840.1.154023.10..22.4.2" /> < id nullFlavor="NA" /> <code codeSystem="local" code="MAG" displayName= "MAGNESIUM" /> <statusCode code="completed" /> <effectiveTime value="270110298957" /> <value unit="mg/dL" xsi:type="PQ" value="2.7" / > <interpretationCode codeSystem="local" code="*" /> < referenceRange> <observationRange> <text>1.8-2.4</text> </observationRange> </referenceRange> </observation > </component> </organizer> </entry> <entry> <organizer moodCode= "EVN" classCode="BATTERY"> <templateId root="10.03.840.1.047966.10..4.1 " /> <id nullFlavor="NA" /> <code codeSystem="local" code="ALEX" displayName="FERRITIN" /> <statusCode code="completed" /> <component> <observation moodCode="EVN" classCode="OBS"> <templateId root= "840.1.741052.06.06.22.4.2" /> <id nullFlavor="NA" /> < code codeSystem="local" code="ALEX" displayName="FERRITIN" /> < statusCode code="completed" /> <effectiveTime value="257513523304" /> <value unit="ng/mL" xsi:type="PQ" value="6" /> < interpretationCode codeSystem="local" code="*" /> <referenceRange> <observationRange> <text>8252</text> </ observationRange> </referenceRange> </observation> </ component> </organizer> </entry> <entry> <organizer moodCode="EVN" classCode="BATTERY"> <templateId root="840.1.828473.06.06.22.4.1" /> <id nullFlavor="NA" /> <code codeSystem="local" code="TSH" displayName ="THYROID STIM HORMONE (TSH)" /> <statusCode code="completed" /> < component> <observation moodCode="EVN" classCode="OBS"> < templateId root="840.1.977782.06.06.22.4.2" /> <id nullFlavor="NA " /> <code codeSystem="local" code="TSH" displayName="THYROID STIM HORMONE (TSH)" /> <statusCode code="completed" /> < effectiveTime value="147502203186" /> <value unit="uIU/mL" xsi:type="PQ " value="2.55" /> <referenceRange> <observationRange> <text>0.34-4.82</text> </observationRange> </ referenceRange> </observation> </component> </organizer> </entry > <entry> <organizer moodCode="EVN" classCode="BATTERY"> <templateId root="10.03.840.1.263282.06.06.22.4.1" /> <id nullFlavor="NA" /> <code codeSystem="local" code="FETIBC" displayName="IRON W/ BINDING CAPACITY" /> <statusCode code="completed" /> <component> <observation moodCode= "EVN" classCode="OBS"> <templateId root="10.03.840.1.511070.06.06.22.4.2 " /> <id nullFlavor="NA" /> <code codeSystem="local" code= "FESAT" displayName="IRON SATURATION" /> <statusCode code="completed" / > <effectiveTime value="107249526854" /> <value unit="%SAT " xsi:type="PQ" value="2" /> <interpretationCode codeSystem="local" code="*" /> <referenceRange> <observationRange> <text>11-46</text> </observationRange> </referenceRange> </observation> </component> <component> <observation moodCode="EVN" classCode="OBS"> <templateId root= "10.03.840.1.691947.06.06.22.4.2" /> <id nullFlavor="NA" /> < code codeSystem="local" code="TIBC" displayName="IRON BINDING CAPACITY, TOTAL" / > <statusCode code="completed" /> <effectiveTime value= "068649828744" /> <value unit="mcg/dL" xsi:type="PQ" value="467" /> <interpretationCode codeSystem="local" code="*" /> < referenceRange> <observationRange> <text>250-450</text> </observationRange> </referenceRange> </observation > </component> <component> <observation moodCode="EVN" classCode="OBS"> <templateId root="840.1.273393.10.22.4.2" /> <id nullFlavor="NA" /> <code codeSystem="local" code="IRON" displayName="IRON" /> <statusCode code="completed" /> < effectiveTime value="437286849660" /> <value unit="mcg/dL" xsi:type="PQ " value="10" /> <interpretationCode codeSystem="local" code="*" /> <referenceRange> <observationRange> <text>35-150</ text> </observationRange> </referenceRange> </ observation> </component> </organizer> </entry> <entry> <organizer moodCode="EVN" classCode="BATTERY"> <templateId root= "10.03.840.1.518661.10...4.1" /> <id nullFlavor="NA" /> <code codeSystem="local" code="GLUMON" displayName="GLUCOSE (POC)" /> < statusCode code="completed" /> <component> <observation moodCode= "EVN" classCode="OBS"> <templateId root="10.03.840.1.412118.10..22.4.2 " /> <id nullFlavor="NA" /> <code codeSystem="local" code= "GLUMON" displayName="GLUCOSE (POC)" /> <statusCode code="completed" / > <effectiveTime value="156761188564" /> <value unit="mg/dL" xsi:type="PQ" value="195" /> <interpretationCode codeSystem="local" code="*" /> <referenceRange> <observationRange> <text>70-99</text> </observationRange> </referenceRange> </observation> </component> </organizer> </entry> <entry> < organizer moodCode="EVN" classCode="BATTERY"> <templateId root= "216.840.1.083509.10..22.4.1" /> <id nullFlavor="NA" /> <code codeSystem="local" code="GLUMON" displayName="GLUCOSE (POC)" /> < statusCode code="completed" /> <component> <observation moodCode= "EVN" classCode="OBS"> <templateId root="216.840.1.559566.10..22.4.2 " /> <id nullFlavor="NA" /> <code codeSystem="local" code= "GLUMON" displayName="GLUCOSE (POC)" /> <statusCode code="completed" / > <effectiveTime value="020283824848" /> <value unit="mg/dL" xsi:type="PQ" value="171" /> <interpretationCode codeSystem="local" code="*" /> <referenceRange> <observationRange> <text>70-99</text> </observationRange> </referenceRange> </observation> </component> </organizer> </entry> <entry> < organizer moodCode="EVN" classCode="BATTERY"> <templateId root= "216.840.1.553250.10..22.4.1" /> <id nullFlavor="NA" /> <code codeSystem="local" code="DIMER" displayName="D-DIMER QUANT" /> <statusCode code="completed" /> <component> <observation moodCode="EVN" classCode="OBS"> <templateId root="10.03.840.1.280483.10..22.4.2" /> <id nullFlavor="NA" /> <code codeSystem="local" code="DIMER" displayName="D-DIMER QUANT" /> <statusCode code="completed" /> <effectiveTime value="344134842927" /> <value unit="ng/mL" xsi:type= "PQ" value="210" /> <referenceRange> <observationRange> <text>0-229</text> </observationRange> </ referenceRange> </observation> </component> </organizer> </entry > <entry> <organizer moodCode="EVN" classCode="BATTERY"> <templateId root="10.03.840.1.741316.10..22.4.1" /> <id nullFlavor="NA" /> <code codeSystem="local" code="iCHEM8" displayName="CHEM/HEM PROFILE-BEDSIDE" /> <statusCode code="completed" /> <component> <observation moodCode= "EVN" classCode="OBS"> <templateId root="10.03.840.1.683685.10..22.4.2 " /> <id nullFlavor="NA" /> <code codeSystem="local" code="K" displayName="POTASSIUM" /> <statusCode code="completed" /> < effectiveTime value="245663289059" /> <value unit="mmol/L" xsi:type="PQ " value="3.7" /> <referenceRange> <observationRange> <text>3.5-5.3</text> </observationRange> </ referenceRange> </observation> </component> <component> <observation moodCode="EVN" classCode="OBS"> <templateId root= "10.03.840.1.626362.06.06.22.4.2" /> <id nullFlavor="NA" /> < code codeSystem="local" code="CMETHOD" displayName="METHOD" /> < statusCode code="completed" /> <effectiveTime value="" /> <value unit="" xsi:type="PQ" value="Bedside" /> < referenceRange> <observationRange> <text /> < /observationRange> </referenceRange> </observation> </ component> <component> <observation moodCode="EVN" classCode="OBS"> <templateId root="216.840.1.726817...4.2" /> <id nullFlavor="NA" /> <code codeSystem="local" code="GAP" displayName= "ANION GAP" /> <statusCode code="completed" /> <effectiveTime value="" /> <value unit="mmol/L" xsi:type="PQ" value="20" / > <referenceRange> <observationRange> <text>10- 20</text> </observationRange> </referenceRange> </ observation> </component> <component> <observation moodCode= "EVN" classCode="OBS"> <templateId root="16.840.1.952469.10..22.4.2 " /> <id nullFlavor="NA" /> <code codeSystem="local" code= "HMETHOD" displayName="METHOD" /> <statusCode code="completed" /> <effectiveTime value="" /> <value unit="" xsi:type="PQ " value="Bedside" /> <referenceRange> <observationRange> <text /> </observationRange> </referenceRange> </observation> </component> <component> <observation moodCode="EVN" classCode="OBS"> <templateId root= "10.03.840.1.918786.22.4.2" /> <id nullFlavor="NA" /> < code codeSystem="local" code="GLU" displayName="GLUCOSE" /> < statusCode code="completed" /> <effectiveTime value="" /> <value unit="mg/dL" xsi:type="PQ" value="112" /> < interpretationCode codeSystem="local" code="*" /> <referenceRange> <observationRange> <text>70-99</text> </ observationRange> </referenceRange> </observation> </ component> <component> <observation moodCode="EVN" classCode="OBS"> <templateId root="16.840.1.326136.06.06.22.4.2" /> <id nullFlavor="NA" /> <code codeSystem="local" code="BUN" displayName= "BLOOD UREA NITROGEN" /> <statusCode code="completed" /> < effectiveTime value="" /> <value unit="mg/dL" xsi:type="PQ " value="18" /> <referenceRange> <observationRange> <text>7-20</text> </observationRange> </referenceRange > </observation> </component> <component> <observation moodCode="EVN" classCode="OBS"> <templateId root= "16.840.1.420799.06.06.22.4.2" /> <id nullFlavor="NA" /> < code codeSystem="local" code="CREAT" displayName="CREATININE" /> < statusCode code="completed" /> <effectiveTime value="" /> <value unit="mg/dL" xsi:type="PQ" value="0.9" /> < referenceRange> <observationRange> <text>0.6-1.0</text> </observationRange> </referenceRange> </observation > </component> <component> <observation moodCode="EVN" classCode="OBS"> <templateId root="216.840.1.447879.10..4.2" /> <id nullFlavor="NA" /> <code codeSystem="local" code="HGBT" displayName="HEMOGLOBIN" /> <statusCode code="completed" /> < effectiveTime value="" /> <value unit="gm/dL" xsi:type="PQ " value="11.2" /> <interpretationCode codeSystem="local" code="*" /> <referenceRange> <observationRange> <text>12.0- 16.0</text> </observationRange> </referenceRange> </ observation> </component> <component> <observation moodCode= "EVN" classCode="OBS"> <templateId root="10.03.840.1.970417.06.06.22.4.2 " /> <id nullFlavor="NA" /> <code codeSystem="local" code= "HCTT" displayName="HEMATOCRIT" /> <statusCode code="completed" /> <effectiveTime value="" /> <value unit="%" xsi: type="PQ" value="33.0" /> <interpretationCode codeSystem="local" code= "*" /> <referenceRange> <observationRange> < text>37.0-47.0</text> </observationRange> </referenceRange> </observation> </component> <component> <observation moodCode="EVN" classCode="OBS"> <templateId root= "10.03.840.1.187274.10.22.4.2" /> <id nullFlavor="NA" /> < code codeSystem="local" code="NA" displayName="SODIUM" /> <statusCode code="completed" /> <effectiveTime value="" /> < value unit="mmol/L" xsi:type="PQ" value="136" /> <referenceRange> <observationRange> <text>135-148</text> </ observationRange> </referenceRange> </observation> </ component> <component> <observation moodCode="EVN" classCode="OBS"> <templateId root="216.840.1.221142.10.22.4.2" /> <id nullFlavor="NA" /> <code codeSystem="local" code="CL" displayName= "CHLORIDE" /> <statusCode code="completed" /> <effectiveTime value="" /> <value unit="mmol/L" xsi:type="PQ" value="98" / > <referenceRange> <observationRange> <text>98- 110</text> </observationRange> </referenceRange> </ observation> </component> <component> <observation moodCode= "EVN" classCode="OBS"> <templateId root="10.03.840.1.366337..22.4.2 " /> <id nullFlavor="NA" /> <code codeSystem="local" code="CO2 " displayName="CARBON DIOXIDE" /> <statusCode code="completed" /> <effectiveTime value="" /> <value unit="mmol/L" xsi: type="PQ" value="22" /> <referenceRange> <observationRange> <text>21-32</text> </observationRange> </ referenceRange> </observation> </component> <component> <observation moodCode="EVN" classCode="OBS"> <templateId root= "216.840.1.803422.10.20.22.4.2" /> <id nullFlavor="NA" /> < code codeSystem="local" code="CAION" displayName="CALCIUM IONIZED" /> < statusCode code="completed" /> <effectiveTime value="738817906749" /> <value unit="mg/dL" xsi:type="PQ" value="5.0" /> < referenceRange> <observationRange> <text>4.5-5.3</text> </observationRange> </referenceRange> </observation > </component> </organizer> </entry> <entry> <organizer moodCode= "EVN" classCode="BATTERY"> <templateId root="216.840.1.710706.10.20.22.4.1 " /> <id nullFlavor="NA" /> <code codeSystem="local" code="iCHEM8" displayName="CHEM/HEM PROFILE-BEDSIDE" /> <statusCode code="completed" /> <component> <observation moodCode="EVN" classCode="OBS"> < templateId root="216.840.1.523539.10.20.22.4.2" /> <id nullFlavor="NA " /> <code codeSystem="local" code="K" displayName="POTASSIUM" /> <statusCode code="completed" /> <effectiveTime value="616897362210 " /> <value unit="mmol/L" xsi:type="PQ" value="4.1" /> < referenceRange> <observationRange> <text>3.5-5.3</text> </observationRange> </referenceRange> </observation > </component> <component> <observation moodCode="EVN" classCode="OBS"> <templateId root="16.840.1.037301.10.20.22.4.2" /> <id nullFlavor="NA" /> <code codeSystem="local" code="CMETHOD " displayName="METHOD" /> <statusCode code="completed" /> < effectiveTime value="" /> <value unit="" xsi:type="PQ" value="Bedside" /> <referenceRange> <observationRange> <text /> </observationRange> </referenceRange> </observation> </component> <component> <observation moodCode="EVN" classCode="OBS"> <templateId root= "216.840.1.867861...4.2" /> <id nullFlavor="NA" /> < code codeSystem="local" code="GAP" displayName="ANION GAP" /> < statusCode code="completed" /> <effectiveTime value="" /> <value unit="mmol/L" xsi:type="PQ" value="18" /> < referenceRange> <observationRange> <text>10-20</text> </observationRange> </referenceRange> </observation> </component> <component> <observation moodCode="EVN" classCode= "OBS"> <templateId root="10.03.840.1.586837.06.06.22.4.2" /> < id nullFlavor="NA" /> <code codeSystem="local" code="HMETHOD" displayName="METHOD" /> <statusCode code="completed" /> < effectiveTime value="" /> <value unit="" xsi:type="PQ" value="Bedside" /> <referenceRange> <observationRange> <text /> </observationRange> </referenceRange> </observation> </component> <component> <observation moodCode="EVN" classCode="OBS"> <templateId root= "16.840.1.909897.10..22.4.2" /> <id nullFlavor="NA" /> < code codeSystem="local" code="GLU" displayName="GLUCOSE" /> < statusCode code="completed" /> <effectiveTime value="[id number]" /> <value unit="mg/dL" xsi:type="PQ" value="121" /> < interpretationCode codeSystem="local" code="*" /> <referenceRange> <observationRange> <text>70-99</text> </ observationRange> </referenceRange> </observation> </ component> <component> <observation moodCode="EVN" classCode="OBS"> <templateId root="216.840.1.249821.10..22.4.2" /> <id nullFlavor="NA" /> <code codeSystem="local" code="BUN" displayName= "BLOOD UREA NITROGEN" /> <statusCode code="completed" /> < effectiveTime value="[id number]" /> <value unit="mg/dL" xsi:type="PQ " value="21" /> <interpretationCode codeSystem="local" code="*" /> <referenceRange> <observationRange> <text>7-20</ text> </observationRange> </referenceRange> </ observation> </component> <component> <observation moodCode= "EVN" classCode="OBS"> <templateId root="216.840.1.570733.10.20.22.4.2 " /> <id nullFlavor="NA" /> <code codeSystem="local" code= "CREAT" displayName="CREATININE" /> <statusCode code="completed" /> <effectiveTime value="[id number]" /> <value unit="mg/dL" xsi: type="PQ" value="1.1" /> <interpretationCode codeSystem="local" code="* " /> <referenceRange> <observationRange> <text> 0.6-1.0</text> </observationRange> </referenceRange> </observation> </component> <component> <observation moodCode= "EVN" classCode="OBS"> <templateId root="216.840.1.726815.10..4.2 " /> <id nullFlavor="NA" /> <code codeSystem="local" code= "HGBT" displayName="HEMOGLOBIN" /> <statusCode code="completed" /> <effectiveTime value="" /> <value unit="gm/dL" xsi: type="PQ" value="9.2" /> <interpretationCode codeSystem="local" code="* " /> <referenceRange> <observationRange> <text> 12.0-16.0</text> </observationRange> </referenceRange> </observation> </component> <component> <observation moodCode="EVN" classCode="OBS"> <templateId root= "216.840.1.167564.06.06.224.2" /> <id nullFlavor="NA" /> < code codeSystem="local" code="HCTT" displayName="HEMATOCRIT" /> < statusCode code="completed" /> <effectiveTime value="" /> <value unit="%" xsi:type="PQ" value="27.0" /> < interpretationCode codeSystem="local" code="*" /> <referenceRange> <observationRange> <text>37.0-47.0</text> </ observationRange> </referenceRange> </observation> </ component> <component> <observation moodCode="EVN" classCode="OBS"> <templateId root="216.840.1.818089.10..4.2" /> <id nullFlavor="NA" /> <code codeSystem="local" code="NA" displayName= "SODIUM" /> <statusCode code="completed" /> <effectiveTime value="077990409968" /> <value unit="mmol/L" xsi:type="PQ" value="137" /> <referenceRange> <observationRange> <text> 135-148</text> </observationRange> </referenceRange> </observation> </component> <component> <observation moodCode= "EVN" classCode="OBS"> <templateId root="216.840.1.253832.10...4.2 " /> <id nullFlavor="NA" /> <code codeSystem="local" code="CL " displayName="CHLORIDE" /> <statusCode code="completed" /> < effectiveTime value="" /> <value unit="mmol/L" xsi:type="PQ " value="103" /> <referenceRange> <observationRange> <text>98-110</text> </observationRange> </ referenceRange> </observation> </component> <component> <observation moodCode="EVN" classCode="OBS"> <templateId root= "16.840.1.930665.10...4.2" /> <id nullFlavor="NA" /> < code codeSystem="local" code="CO2" displayName="CARBON DIOXIDE" /> < statusCode code="completed" /> <effectiveTime value="775852302212" /> <value unit="mmol/L" xsi:type="PQ" value="21" /> < referenceRange> <observationRange> <text>21-32</text> </observationRange> </referenceRange> </observation> </component> <component> <observation moodCode="EVN" classCode= "OBS"> <templateId root="216.840.1.637547.10..22.4.2" /> < id nullFlavor="NA" /> <code codeSystem="local" code="CAION" displayName ="CALCIUM IONIZED" /> <statusCode code="completed" /> < effectiveTime value="023672281171" /> <value unit="mg/dL" xsi:type="PQ " value="5.2" /> <referenceRange> <observationRange> <text>4.5-5.3</text> </observationRange> </ referenceRange> </observation> </component> </organizer> </entry > <entry> <organizer moodCode="EVN" classCode="BATTERY"> <templateId root="216.840.1.571880.10.20.22.4.1" /> <id nullFlavor="NA" /> <code codeSystem="local" code="iTROPI" displayName="TROPONIN I BEDSIDE" /> < statusCode code="completed" /> <component> <observation moodCode= "EVN" classCode="OBS"> <templateId root="216.840.1.470957.10..22.4.2 " /> <id nullFlavor="NA" /> <code codeSystem="local" code= "CMETHOD" displayName="METHOD" /> <statusCode code="completed" /> <effectiveTime value="751239302530" /> <value unit="" xsi:type="PQ " value="Bedside" /> <referenceRange> <observationRange> <text /> </observationRange> </referenceRange> </observation> </component> <component> <observation moodCode="EVN" classCode="OBS"> <templateId root= "216.840.1.597062.10..22.4.2" /> <id nullFlavor="NA" /> < code codeSystem="local" code="TROPI" displayName="TROPONIN I" /> < statusCode code="completed" /> <effectiveTime value="714641997113" /> <value unit="ng/mL" xsi:type="PQ" value="< 0.04" /> < referenceRange> <observationRange> <text>< 0.11</text > </observationRange> </referenceRange> </observation > </component> </organizer> </entry> <entry> <organizer moodCode= "EVN" classCode="BATTERY"> <templateId root="16.840.1.986418.10..22.4.1 " /> <id nullFlavor="NA" /> <code codeSystem="local" code="UA" displayName="URINALYSIS, ROUTINE" /> <statusCode code="completed" /> < component> <observation moodCode="EVN" classCode="OBS"> < templateId root="216.840.1.475241.10...4.2" /> <id nullFlavor="NA " /> <code codeSystem="local" code="LEUESU" displayName="UA LEUKOCYTE ESTERASE DIPSTICK" /> <statusCode code="completed" /> < effectiveTime value="" /> <value unit="" xsi:type="PQ" value="NEGATIVE" /> <referenceRange> <observationRange> <text>NEGATIVE</text> </observationRange> </ referenceRange> </observation> </component> <component> <observation moodCode="EVN" classCode="OBS"> <templateId root= "16.840.1.978842.10...4.2" /> <id nullFlavor="NA" /> < code codeSystem="local" code="NITRIU" displayName="UA NITRITE DIPSTICK" /> <statusCode code="completed" /> <effectiveTime value=" " /> <value unit="" xsi:type="PQ" value="NEGATIVE" /> < referenceRange> <observationRange> <text>NEGATIVE</text > </observationRange> </referenceRange> </observation > </component> <component> <observation moodCode="EVN" classCode="OBS"> <templateId root="216.840.1.108823.06.06.22.4.2" /> <id nullFlavor="NA" /> <code codeSystem="local" code="PROTEIU " displayName="UA PROTEIN DIPSTICK" /> <statusCode code="completed" /> <effectiveTime value="" /> <value unit="" xsi: type="PQ" value="NEGATIVE" /> <referenceRange> < observationRange> <text>NEGATIVE</text> </ observationRange> </referenceRange> </observation> </ component> <component> <observation moodCode="EVN" classCode="OBS"> <templateId root="10.03.840.1.072205.06.06.224.2" /> <id nullFlavor="NA" /> <code codeSystem="local" code="DGLUU" displayName= "UA GLUCOSE DIPSTICK" /> <statusCode code="completed" /> < effectiveTime value="" /> <value unit="" xsi:type="PQ" value="NEGATIVE" /> <referenceRange> <observationRange> <text>NEGATIVE</text> </observationRange> </ referenceRange> </observation> </component> <component> <observation moodCode="EVN" classCode="OBS"> <templateId root= "10.03.840.1.003917.06.06.22.4.2" /> <id nullFlavor="NA" /> < code codeSystem="local" code="KETONU" displayName="UA KETONE DIPSTICK" /> <statusCode code="completed" /> <effectiveTime value=" " /> <value unit="" xsi:type="PQ" value="NEGATIVE" /> < referenceRange> <observationRange> <text>NEGATIVE</text > </observationRange> </referenceRange> </observation > </component> <component> <observation moodCode="EVN" classCode="OBS"> <templateId root="10.03.840.1.778102.10.4.2" /> <id nullFlavor="NA" /> <code codeSystem="local" code="UROBILU " displayName="UA UROBILINOGEN DIPSTICK" /> <statusCode code="completed " /> <effectiveTime value="" /> <value unit="" xsi :type="PQ" value="NORMAL" /> <referenceRange> < observationRange> <text>NORMAL</text> </observationRange > </referenceRange> </observation> </component> < component> <observation moodCode="EVN" classCode="OBS"> < templateId root="10.03.840.1.613137.06.06.22.4.2" /> <id nullFlavor="NA " /> <code codeSystem="local" code="BILU" displayName="UA BILIRUBIN DIPSTICK" /> <statusCode code="completed" /> <effectiveTime value="" /> <value unit="" xsi:type="PQ" value="NEGATIVE" / > <referenceRange> <observationRange> <text> NEGATIVE</text> </observationRange> </referenceRange> </observation> </component> <component> <observation moodCode ="EVN" classCode="OBS"> <templateId root= "10.03.840.1.819079.10.4.2" /> <id nullFlavor="NA" /> < code codeSystem="local" code="ADAM" displayName="UA BLOOD DIPSTICK" /> < statusCode code="completed" /> <effectiveTime value="" /> <value unit="" xsi:type="PQ" value="NEGATIVE" /> < referenceRange> <observationRange> <text>NEGATIVE</text > </observationRange> </referenceRange> </observation > </component> <component> <observation moodCode="EVN" classCode="OBS"> <templateId root="216.840.1.318857.10...4.2" /> <id nullFlavor="NA" /> <code codeSystem="local" code="SPGRU" displayName="UA SPECIFIC GRAVITY" /> <statusCode code="completed" /> <effectiveTime value="" /> <value unit="" xsi:type= "PQ" value="1.015" /> <referenceRange> <observationRange> <text>1.015-1.025</text> </observationRange> </ referenceRange> </observation> </component> <component> <observation moodCode="EVN" classCode="OBS"> <templateId root= "216.840.1.447805.10..4.2" /> <id nullFlavor="NA" /> < code codeSystem="local" code="INGRID" displayName="UR PH" /> <statusCode code="completed" /> <effectiveTime value="" /> < value unit="" xsi:type="PQ" value="6.5" /> <referenceRange> <observationRange> <text>5.0-7.0</text> </ observationRange> </referenceRange> </observation> </ component> </organizer> </entry> <entry> <organizer moodCode="EVN" classCode="BATTERY"> <templateId root="2.16.840.1.021199.10...4.1" /> <id nullFlavor="NA" /> <code codeSystem="local" code="CBCD" displayName="CBC W/DIFF" /> <statusCode code="completed" /> <component > <observation moodCode="EVN" classCode="OBS"> <templateId root= "10.03.840.1.874840.10...4.2" /> <id nullFlavor="NA" /> < code codeSystem="local" code="BA#" displayName="BASOPHIL #" /> < statusCode code="completed" /> <effectiveTime value="293676896174" /> <value unit="k/cumm" xsi:type="PQ" value="0.1" /> < referenceRange> <observationRange> <text>0.0-0.2</text> </observationRange> </referenceRange> </observation > </component> <component> <observation moodCode="EVN" classCode="OBS"> <templateId root="840.1.857581.10..4.2" /> <id nullFlavor="NA" /> <code codeSystem="local" code="BA% " displayName="BASOPHIL %" /> <statusCode code="completed" /> <effectiveTime value="911346753715" /> <value unit="%" xsi: type="PQ" value="2" /> <interpretationCode codeSystem="local" code="*" /> <referenceRange> <observationRange> <text>0- 1</text> </observationRange> </referenceRange> </ observation> </component> <component> <observation moodCode= "EVN" classCode="OBS"> <templateId root="10.03.840.1.146233.10...4.2 " /> <id nullFlavor="NA" /> <code codeSystem="local" code= "CBCCOM" displayName="COMMENT" /> <statusCode code="completed" /> <effectiveTime value="" /> <value unit="" xsi:type="PQ " value="REVIEWED" /> <referenceRange> <observationRange> <text /> </observationRange> </referenceRange> </observation> </component> <component> <observation moodCode="EVN" classCode="OBS"> <templateId root= "216.840.1.462949.10...4.2" /> <id nullFlavor="NA" /> < code codeSystem="local" code="EO#" displayName="EOSINOPHIL #" /> < statusCode code="completed" /> <effectiveTime value="" /> <value unit="k/cumm" xsi:type="PQ" value="0.2" /> < referenceRange> <observationRange> <text>0.1-0.5</text> </observationRange> </referenceRange> </observation > </component> <component> <observation moodCode="EVN" classCode="OBS"> <templateId root="16.840.1.844897.10...4.2" /> <id nullFlavor="NA" /> <code codeSystem="local" code="EO% " displayName="EOSINOPHIL %" /> <statusCode code="completed" /> <effectiveTime value="" /> <value unit="%" xsi: type="PQ" value="3" /> <referenceRange> <observationRange> <text>2-4</text> </observationRange> </ referenceRange> </observation> </component> <component> <observation moodCode="EVN" classCode="OBS"> <templateId root= "10.03.840.1.262383.06.06.22.4.2" /> <id nullFlavor="NA" /> < code codeSystem="local" code="GR#" displayName="GRANULOCYTE #" /> < statusCode code="completed" /> <effectiveTime value="" /> <value unit="k/cumm" xsi:type="PQ" value="2.6" /> < referenceRange> <observationRange> <text>2.0-9.0</text> </observationRange> </referenceRange> </observation > </component> <component> <observation moodCode="EVN" classCode="OBS"> <templateId root="2.16.840.1.819586.06.06.224.2" /> <id nullFlavor="NA" /> <code codeSystem="local" code="GR% " displayName="GRANULOCYTE %" /> <statusCode code="completed" /> <effectiveTime value="" /> <value unit="%" xsi: type="PQ" value="50" /> <referenceRange> <observationRange> <text>50-75</text> </observationRange> </ referenceRange> </observation> </component> <component> <observation moodCode="EVN" classCode="OBS"> <templateId root= "2.16.840.1.898520.06.06.22.4.2" /> <id nullFlavor="NA" /> < code codeSystem="local" code="LY#" displayName="LYMPHOCYTE #" /> < statusCode code="completed" /> <effectiveTime value="" /> <value unit="k/cumm" xsi:type="PQ" value="1.6" /> < referenceRange> <observationRange> <text>1.0-4.0</text> </observationRange> </referenceRange> </observation > </component> <component> <observation moodCode="EVN" classCode="OBS"> <templateId root="2.840.1.032960.10..4.2" /> <id nullFlavor="NA" /> <code codeSystem="local" code="LY% " displayName="LYMPHOCYTE %" /> <statusCode code="completed" /> <effectiveTime value="" /> <value unit="%" xsi: type="PQ" value="31" /> <interpretationCode codeSystem="local" code="* " /> <referenceRange> <observationRange> <text> 20-30</text> </observationRange> </referenceRange> </ observation> </component> <component> <observation moodCode= "EVN" classCode="OBS"> <templateId root="10.03.840.1.981274.06.06.224.2 " /> <id nullFlavor="NA" /> <code codeSystem="local" code="MCH " displayName="MEAN CELL HGB" /> <statusCode code="completed" /> <effectiveTime value="" /> <value unit="pg" xsi:type= "PQ" value="22.8" /> <interpretationCode codeSystem="local" code="*" / > <referenceRange> <observationRange> <text> 27.0-33.0</text> </observationRange> </referenceRange> </observation> </component> <component> <observation moodCode="EVN" classCode="OBS"> <templateId root= "10.03.840.1.205624.06.06.22.4.2" /> <id nullFlavor="NA" /> < code codeSystem="local" code="MCHC" displayName="MEAN CELL HGB CONCENTRATION" / > <statusCode code="completed" /> <effectiveTime value= "" /> <value unit="g/dL" xsi:type="PQ" value="30.8" /> <interpretationCode codeSystem="local" code="*" /> < referenceRange> <observationRange> <text>32.0-37.0</text > </observationRange> </referenceRange> </observation > </component> <component> <observation moodCode="EVN" classCode="OBS"> <templateId root="216.840.1.915340.10.20.22.4.2" /> <id nullFlavor="NA" /> <code codeSystem="local" code="MCV" displayName="MEAN CELL VOLUME" /> <statusCode code="completed" /> <effectiveTime value="" /> <value unit="fl" xsi:type= "PQ" value="74.0" /> <interpretationCode codeSystem="local" code="*" / > <referenceRange> <observationRange> <text> 80.0-100.0</text> </observationRange> </referenceRange> </observation> </component> <component> <observation moodCode="EVN" classCode="OBS"> <templateId root= "16.840.1.054300.10.20.22.4.2" /> <id nullFlavor="NA" /> < code codeSystem="local" code="MO#" displayName="MONOCYTE #" /> < statusCode code="completed" /> <effectiveTime value="" /> <value unit="k/cumm" xsi:type="PQ" value="0.8" /> < referenceRange> <observationRange> <text>0.1-1.0</text> </observationRange> </referenceRange> </observation > </component> <component> <observation moodCode="EVN" classCode="OBS"> <templateId root="216.840.1.767093.10..22.4.2" /> <id nullFlavor="NA" /> <code codeSystem="local" code="MO% " displayName="MONOCYTE %" /> <statusCode code="completed" /> <effectiveTime value="" /> <value unit="%" xsi: type="PQ" value="15" /> <interpretationCode codeSystem="local" code="* " /> <referenceRange> <observationRange> <text> 4-6</text> </observationRange> </referenceRange> </ observation> </component> <component> <observation moodCode= "EVN" classCode="OBS"> <templateId root="10.03.840.1.133763.06.06.224.2 " /> <id nullFlavor="NA" /> <code codeSystem="local" code="RBC " displayName="RED BLOOD CELL" /> <statusCode code="completed" /> <effectiveTime value="" /> <value unit="m/cumm" xsi: type="PQ" value="3.69" /> <interpretationCode codeSystem="local" code= "*" /> <referenceRange> <observationRange> < text>4.00-6.00</text> </observationRange> </referenceRange> </observation> </component> <component> <observation moodCode="EVN" classCode="OBS"> <templateId root= "16.840.1.873664...22.4.2" /> <id nullFlavor="NA" /> < code codeSystem="local" code="RDW" displayName="RED CELL DISTRIBUTION WIDTH" /> <statusCode code="completed" /> <effectiveTime value= "" /> <value unit="%" xsi:type="PQ" value="18.6" /> <interpretationCode codeSystem="local" code="*" /> < referenceRange> <observationRange> <text>11.0-15.6</text > </observationRange> </referenceRange> </observation > </component> <component> <observation moodCode="EVN" classCode="OBS"> <templateId root="16.840.1.885561.06.06.22.4.2" /> <id nullFlavor="NA" /> <code codeSystem="local" code="WBC" displayName="WHITE BLOOD CELL" /> <statusCode code="completed" /> <effectiveTime value="" /> <value unit="k/cumm" xsi: type="PQ" value="5.2" /> <referenceRange> <observationRange > <text>5.0-10.0</text> </observationRange> </ referenceRange> </observation> </component> <component> <observation moodCode="EVN" classCode="OBS"> <templateId root= "10.03.840.1.360854....4.2" /> <id nullFlavor="NA" /> < code codeSystem="local" code="HGBT" displayName="HEMOGLOBIN" /> < statusCode code="completed" /> <effectiveTime value="" /> <value unit="gm/dL" xsi:type="PQ" value="8.4" /> < interpretationCode codeSystem="local" code="*" /> <referenceRange> <observationRange> <text>12.0-16.0</text> </ observationRange> </referenceRange> </observation> </ component> <component> <observation moodCode="EVN" classCode="OBS"> <templateId root="840.1.623991.10.22.4.2" /> <id nullFlavor="NA" /> <code codeSystem="local" code="HCTT" displayName= "HEMATOCRIT" /> <statusCode code="completed" /> < effectiveTime value="285350518642" /> <value unit="%" xsi:type="PQ " value="27.3" /> <interpretationCode codeSystem="local" code="*" /> <referenceRange> <observationRange> <text>37.0- 47.0</text> </observationRange> </referenceRange> </ observation> </component> <component> <observation moodCode= "EVN" classCode="OBS"> <templateId root="840.1.052003.06.06.22.4.2 " /> <id nullFlavor="NA" /> <code codeSystem="local" code="PLT " displayName="PLATELET COUNT" /> <statusCode code="completed" /> <effectiveTime value="" /> <value unit="k/cumm" xsi: type="PQ" value="327" /> <referenceRange> <observationRange > <text>150-400</text> </observationRange> </ referenceRange> </observation> </component> </organizer> </entry > <entry> <organizer moodCode="EVN" classCode="BATTERY"> <templateId root="10.03.840.1.017613.1022.4.1" /> <id nullFlavor="NA" /> <code codeSystem="local" code="iTROPI" displayName="TROPONIN I BEDSIDE" /> < statusCode code="completed" /> <component> <observation moodCode= "EVN" classCode="OBS"> <templateId root="10.03.840.1.338618.06.06.22.4.2 " /> <id nullFlavor="NA" /> <code codeSystem="local" code= "CMETHOD" displayName="METHOD" /> <statusCode code="completed" /> <effectiveTime value="" /> <value unit="" xsi:type="PQ " value="Bedside" /> <referenceRange> <observationRange> <text /> </observationRange> </referenceRange> </observation> </component> <component> <observation moodCode="EVN" classCode="OBS"> <templateId root= "16.840.1.740053.06.06.22.4.2" /> <id nullFlavor="NA" /> < code codeSystem="local" code="TROPI" displayName="TROPONIN I" /> < statusCode code="completed" /> <effectiveTime value="" /> <value unit="ng/mL" xsi:type="PQ" value="< 0.04" /> < referenceRange> <observationRange> <text>< 0.11</text > </observationRange> </referenceRange> </observation > </component> </organizer> </entry> <entry> <organizer moodCode= "EVN" classCode="BATTERY"> <templateId root="10.03.840.1.111539.06.06.22.4.1 " /> <id nullFlavor="NA" /> <code codeSystem="local" code="UA" displayName="URINALYSIS, ROUTINE" /> <statusCode code="completed" /> < component> <observation moodCode="EVN" classCode="OBS"> < templateId root="16.840.1.032142.06.06.22.4.2" /> <id nullFlavor="NA " /> <code codeSystem="local" code="LEUESU" displayName="UA LEUKOCYTE ESTERASE DIPSTICK" /> <statusCode code="completed" /> < effectiveTime value="369322160922" /> <value unit="" xsi:type="PQ" value="NEGATIVE" /> <referenceRange> <observationRange> <text>NEGATIVE</text> </observationRange> </ referenceRange> </observation> </component> <component> <observation moodCode="EVN" classCode="OBS"> <templateId root= "10.03.840.1.914669.10.4.2" /> <id nullFlavor="NA" /> < code codeSystem="local" code="NITRIU" displayName="UA NITRITE DIPSTICK" /> <statusCode code="completed" /> <effectiveTime value="784471382758 " /> <value unit="" xsi:type="PQ" value="NEGATIVE" /> < referenceRange> <observationRange> <text>NEGATIVE</text > </observationRange> </referenceRange> </observation > </component> <component> <observation moodCode="EVN" classCode="OBS"> <templateId root="10.03.840.1.758343.06.06.22.4.2" /> <id nullFlavor="NA" /> <code codeSystem="local" code="PROTEIU " displayName="UA PROTEIN DIPSTICK" /> <statusCode code="completed" /> <effectiveTime value="194298253448" /> <value unit="" xsi: type="PQ" value="NEGATIVE" /> <referenceRange> < observationRange> <text>NEGATIVE</text> </ observationRange> </referenceRange> </observation> </ component> <component> <observation moodCode="EVN" classCode="OBS"> <templateId root="10.03.840.1.170266.06.06.22.4.2" /> <id nullFlavor="NA" /> <code codeSystem="local" code="DGLUU" displayName= "UA GLUCOSE DIPSTICK" /> <statusCode code="completed" /> < effectiveTime value="474041816279" /> <value unit="" xsi:type="PQ" value="NEGATIVE" /> <referenceRange> <observationRange> <text>NEGATIVE</text> </observationRange> </ referenceRange> </observation> </component> <component> <observation moodCode="EVN" classCode="OBS"> <templateId root= "216.840.1.075479.10.20.22.4.2" /> <id nullFlavor="NA" /> < code codeSystem="local" code="KETONU" displayName="UA KETONE DIPSTICK" /> <statusCode code="completed" /> <effectiveTime value="120441073348 " /> <value unit="" xsi:type="PQ" value="NEGATIVE" /> < referenceRange> <observationRange> <text>NEGATIVE</text > </observationRange> </referenceRange> </observation > </component> <component> <observation moodCode="EVN" classCode="OBS"> <templateId root="16.840.1.295276.10.20.22.4.2" /> <id nullFlavor="NA" /> <code codeSystem="local" code="UROBILU " displayName="UA UROBILINOGEN DIPSTICK" /> <statusCode code="completed " /> <effectiveTime value="978396177577" /> <value unit="" xsi :type="PQ" value="NORMAL" /> <referenceRange> < observationRange> <text>NORMAL</text> </observationRange > </referenceRange> </observation> </component> < component> <observation moodCode="EVN" classCode="OBS"> < templateId root="840.1.309399.10..22.4.2" /> <id nullFlavor="NA " /> <code codeSystem="local" code="BILU" displayName="UA BILIRUBIN DIPSTICK" /> <statusCode code="completed" /> <effectiveTime value="767419860232" /> <value unit="" xsi:type="PQ" value="NEGATIVE" / > <referenceRange> <observationRange> <text> NEGATIVE</text> </observationRange> </referenceRange> </observation> </component> <component> <observation moodCode ="EVN" classCode="OBS"> <templateId root= "2.16.840.1.260897.10.22.4.2" /> <id nullFlavor="NA" /> < code codeSystem="local" code="ADAM" displayName="UA BLOOD DIPSTICK" /> < statusCode code="completed" /> <effectiveTime value="298624022691" /> <value unit="" xsi:type="PQ" value="TRACE" /> < interpretationCode codeSystem="local" code="*" /> <referenceRange> <observationRange> <text>NEGATIVE</text> </ observationRange> </referenceRange> </observation> </ component> <component> <observation moodCode="EVN" classCode="OBS"> <templateId root="216.840.1.071394.10..22.4.2" /> <id nullFlavor="NA" /> <code codeSystem="local" code="SPGRU" displayName= "UA SPECIFIC GRAVITY" /> <statusCode code="completed" /> < effectiveTime value="500407778522" /> <value unit="" xsi:type="PQ" value="1.015" /> <referenceRange> <observationRange> <text>1.015-1.025</text> </observationRange> </ referenceRange> </observation> </component> <component> <observation moodCode="EVN" classCode="OBS"> <templateId root= "216.840.1.915306.06.06.22.4.2" /> <id nullFlavor="NA" /> < code codeSystem="local" code="INGRID" displayName="UR PH" /> <statusCode code="completed" /> <effectiveTime value="790673759910" /> < value unit="" xsi:type="PQ" value="6.0" /> <referenceRange> <observationRange> <text>5.0-7.0</text> </ observationRange> </referenceRange> </observation> </ component> </organizer> </entry> <entry> <organizer moodCode="EVN" classCode="BATTERY"> <templateId root="216.840.1.751830.22.4.1" /> <id nullFlavor="NA" /> <code codeSystem="local" code="UAMICRO" displayName="UA MICROSCOPIC" /> <statusCode code="completed" /> < component> <observation moodCode="EVN" classCode="OBS"> < templateId root="216.840.1.709179.10.22.4.2" /> <id nullFlavor="NA " /> <code codeSystem="local" code="RBCU" displayName="UA RBC" /> <statusCode code="completed" /> <effectiveTime value="298547792575 " /> <value unit="rbc/hpf" xsi:type="PQ" value="0-3" /> < referenceRange> <observationRange> <text>0 - 3</text> </observationRange> </referenceRange> </observation> </component> <component> <observation moodCode="EVN" classCode= "OBS"> <templateId root="10.03.840.1.384731.10..4.2" /> < id nullFlavor="NA" /> <code codeSystem="local" code="UAVOL" displayName ="UA VOLUME FOR EXAM" /> <statusCode code="completed" /> < effectiveTime value="482917319953" /> <value unit="mL" xsi:type="PQ" value="12.0" /> <referenceRange> <observationRange> <text>(12mL STD)</text> </observationRange> </ referenceRange> </observation> </component> <component> <observation moodCode="EVN" classCode="OBS"> <templateId root= "10.03.840.1.843065.06.06.22.4.2" /> <id nullFlavor="NA" /> < code codeSystem="local" code="WBCU" displayName="UA WBC" /> < statusCode code="completed" /> <effectiveTime value="175650781368" /> <value unit="wbc/hpf" xsi:type="PQ" value="0-1" /> < referenceRange> <observationRange> <text>0 - 5</text> </observationRange> </referenceRange> </observation> </component> </organizer> </entry> <entry> <organizer moodCode="EVN " classCode="BATTERY"> <templateId root="16.840.1.611502.06.06.22.4.1" / > <id nullFlavor="NA" /> <code codeSystem="local" code="iCHEM8" displayName="CHEM/HEM PROFILE-BEDSIDE" /> <statusCode code="completed" /> <component> <observation moodCode="EVN" classCode="OBS"> < templateId root="2.840.1.757270.06.06.22.4.2" /> <id nullFlavor="NA " /> <code codeSystem="local" code="K" displayName="POTASSIUM" /> <statusCode code="completed" /> <effectiveTime value="303804280437 " /> <value unit="mmol/L" xsi:type="PQ" value="4.1" /> < referenceRange> <observationRange> <text>3.5-5.3</text> </observationRange> </referenceRange> </observation > </component> <component> <observation moodCode="EVN" classCode="OBS"> <templateId root="216.840.1.584610.06.06.22.4.2" /> <id nullFlavor="NA" /> <code codeSystem="local" code="CMETHOD " displayName="METHOD" /> <statusCode code="completed" /> < effectiveTime value="637981704179" /> <value unit="" xsi:type="PQ" value="Bedside" /> <referenceRange> <observationRange> <text /> </observationRange> </referenceRange> </observation> </component> <component> <observation moodCode="EVN" classCode="OBS"> <templateId root= "216.840.1.402411....4.2" /> <id nullFlavor="NA" /> < code codeSystem="local" code="GAP" displayName="ANION GAP" /> < statusCode code="completed" /> <effectiveTime value="282248412433" /> <value unit="mmol/L" xsi:type="PQ" value="17" /> < referenceRange> <observationRange> <text>10-20</text> </observationRange> </referenceRange> </observation> </component> <component> <observation moodCode="EVN" classCode= "OBS"> <templateId root="216.840.1.396499.10..22.4.2" /> < id nullFlavor="NA" /> <code codeSystem="local" code="HMETHOD" displayName="METHOD" /> <statusCode code="completed" /> < effectiveTime value="457142106415" /> <value unit="" xsi:type="PQ" value="Bedside" /> <referenceRange> <observationRange> <text /> </observationRange> </referenceRange> </observation> </component> <component> <observation moodCode="EVN" classCode="OBS"> <templateId root= "216.840.1.274973...4.2" /> <id nullFlavor="NA" /> < code codeSystem="local" code="GLU" displayName="GLUCOSE" /> < statusCode code="completed" /> <effectiveTime value="017146003253" /> <value unit="mg/dL" xsi:type="PQ" value="114" /> < interpretationCode codeSystem="local" code="*" /> <referenceRange> <observationRange> <text>70-99</text> </ observationRange> </referenceRange> </observation> </ component> <component> <observation moodCode="EVN" classCode="OBS"> <templateId root="16.840.1.680609...22.4.2" /> <id nullFlavor="NA" /> <code codeSystem="local" code="BUN" displayName= "BLOOD UREA NITROGEN" /> <statusCode code="completed" /> < effectiveTime value="275459859907" /> <value unit="mg/dL" xsi:type="PQ " value="15" /> <referenceRange> <observationRange> <text>7-20</text> </observationRange> </referenceRange > </observation> </component> <component> <observation moodCode="EVN" classCode="OBS"> <templateId root= "216.840.1.518860.10..22.4.2" /> <id nullFlavor="NA" /> < code codeSystem="local" code="CREAT" displayName="CREATININE" /> < statusCode code="completed" /> <effectiveTime value="859735594425" /> <value unit="mg/dL" xsi:type="PQ" value="0.9" /> < referenceRange> <observationRange> <text>0.6-1.0</text> </observationRange> </referenceRange> </observation > </component> <component> <observation moodCode="EVN" classCode="OBS"> <templateId root="216.840.1.693872.06.06.22.4.2" /> <id nullFlavor="NA" /> <code codeSystem="local" code="HGBT" displayName="HEMOGLOBIN" /> <statusCode code="completed" /> < effectiveTime value="662664618276" /> <value unit="gm/dL" xsi:type="PQ " value="11.9" /> <interpretationCode codeSystem="local" code="*" /> <referenceRange> <observationRange> <text>12.0- 16.0</text> </observationRange> </referenceRange> </ observation> </component> <component> <observation moodCode= "EVN" classCode="OBS"> <templateId root="216.840.1.405769..22.4.2 " /> <id nullFlavor="NA" /> <code codeSystem="local" code= "HCTT" displayName="HEMATOCRIT" /> <statusCode code="completed" /> <effectiveTime value="627813147830" /> <value unit="%" xsi: type="PQ" value="35.0" /> <interpretationCode codeSystem="local" code= "*" /> <referenceRange> <observationRange> < text>37.0-47.0</text> </observationRange> </referenceRange> </observation> </component> <component> <observation moodCode="EVN" classCode="OBS"> <templateId root= "10.03.840.1.240194.10..4.2" /> <id nullFlavor="NA" /> < code codeSystem="local" code="NA" displayName="SODIUM" /> <statusCode code="completed" /> <effectiveTime value="061254920052" /> < value unit="mmol/L" xsi:type="PQ" value="132" /> <interpretationCode codeSystem="local" code="*" /> <referenceRange> < observationRange> <text>135-148</text> </ observationRange> </referenceRange> </observation> </ component> <component> <observation moodCode="EVN" classCode="OBS"> <templateId root="10.03.840.1.953852.10...4.2" /> <id nullFlavor="NA" /> <code codeSystem="local" code="CL" displayName= "CHLORIDE" /> <statusCode code="completed" /> <effectiveTime value="435049654662" /> <value unit="mmol/L" xsi:type="PQ" value="97" / > <interpretationCode codeSystem="local" code="*" /> < referenceRange> <observationRange> <text>98-110</text> </observationRange> </referenceRange> </observation> </component> <component> <observation moodCode="EVN" classCode ="OBS"> <templateId root="10.03.830.1.992514.22.4.2" /> < id nullFlavor="NA" /> <code codeSystem="local" code="CO2" displayName= "CARBON DIOXIDE" /> <statusCode code="completed" /> < effectiveTime value="797594700584" /> <value unit="mmol/L" xsi:type="PQ " value="22" /> <referenceRange> <observationRange> <text>21-32</text> </observationRange> </ referenceRange> </observation> </component> <component> <observation moodCode="EVN" classCode="OBS"> <templateId root= "840.1.798136.06.06.22.4.2" /> <id nullFlavor="NA" /> < code codeSystem="local" code="CAION" displayName="CALCIUM IONIZED" /> < statusCode code="completed" /> <effectiveTime value="976930043978" /> <value unit="mg/dL" xsi:type="PQ" value="4.7" /> < referenceRange> <observationRange> <text>4.5-5.3</text> </observationRange> </referenceRange> </observation > </component> </organizer> </entry> <entry> <organizer moodCode= "EVN" classCode="BATTERY"> <templateId root="840.1.402487.22.4.1 " /> <id nullFlavor="NA" /> <code codeSystem="local" code="WET" displayName="WET MOUNT" /> <statusCode code="completed" /> <component > <observation moodCode="EVN" classCode="OBS"> <templateId root= "840.1.226367.22.4.2" /> <id nullFlavor="NA" /> < code codeSystem="local" code="MB" displayName="Microbiology" /> < statusCode code="completed" /> <effectiveTime value="023326846871" /> <value xsi:type="ST" value="<pre><b>WET MOUNT</b> See BelowWET MOUNT(F ) Cosme Date/Time: 04/27/2016 : Irvin Date/Time: 04/27/2016 18:42SOURCE: VAGINALSPEC DESC: CLUE CELLSNO CLUE CELLS SEENTRICHOMONASNO TRICHOMONAS SEENWBCMANY WBCYEASTNO YEAST [facility]ENSA[facility] [place] [address]</pre>" /> <referenceRange > <observationRange> <text /> </ observationRange> </referenceRange> </observation> </ component> </organizer> </entry> <entry> <organizer moodCode="EVN" classCode="BATTERY"> <templateId root="2.16.840.1.404942.10.20.22.4.1" /> <id nullFlavor="NA" /> <code codeSystem="local" code="UA" displayName= "URINALYSIS, ROUTINE" /> <statusCode code="completed" /> <component> <observation moodCode="EVN" classCode="OBS"> <templateId root= "2.16.840.1.349548.10.20.22.4.2" /> <id nullFlavor="NA" /> < code codeSystem="local" code="LEUESU" displayName="UA LEUKOCYTE ESTERASE DIPSTICK" /> <statusCode code="completed" /> <effectiveTime value="175046331677" /> <value unit="" xsi:type="PQ" value="TRACE" /> <referenceRange> <observationRange> <text> NEGATIVE</text> </observationRange> </referenceRange> </observation> </component> <component> <observation moodCode ="EVN" classCode="OBS"> <templateId root= "216.840.1.564657.10..4.2" /> <id nullFlavor="NA" /> < code codeSystem="local" code="NITRIU" displayName="UA NITRITE DIPSTICK" /> <statusCode code="completed" /> <effectiveTime value=" " /> <value unit="" xsi:type="PQ" value="NEGATIVE" /> < referenceRange> <observationRange> <text>NEGATIVE</text > </observationRange> </referenceRange> </observation > </component> <component> <observation moodCode="EVN" classCode="OBS"> <templateId root="216.840.1.563967.10..4.2" /> <id nullFlavor="NA" /> <code codeSystem="local" code="PROTEIU " displayName="UA PROTEIN DIPSTICK" /> <statusCode code="completed" /> <effectiveTime value="615130338506" /> <value unit="" xsi: type="PQ" value="NEGATIVE" /> <referenceRange> < observationRange> <text>NEGATIVE</text> </ observationRange> </referenceRange> </observation> </ component> <component> <observation moodCode="EVN" classCode="OBS"> <templateId root="16.840.1.666618.10.4.2" /> <id nullFlavor="NA" /> <code codeSystem="local" code="DGLUU" displayName= "UA GLUCOSE DIPSTICK" /> <statusCode code="completed" /> < effectiveTime value="" /> <value unit="" xsi:type="PQ" value="NEGATIVE" /> <referenceRange> <observationRange> <text>NEGATIVE</text> </observationRange> </ referenceRange> </observation> </component> <component> <observation moodCode="EVN" classCode="OBS"> <templateId root= "216.840.1.677782.10..4.2" /> <id nullFlavor="NA" /> < code codeSystem="local" code="KETONU" displayName="UA KETONE DIPSTICK" /> <statusCode code="completed" /> <effectiveTime value="537280510993 " /> <value unit="" xsi:type="PQ" value="NEGATIVE" /> < referenceRange> <observationRange> <text>NEGATIVE</text > </observationRange> </referenceRange> </observation > </component> <component> <observation moodCode="EVN" classCode="OBS"> <templateId root="216.840.1.680958...4.2" /> <id nullFlavor="NA" /> <code codeSystem="local" code="UROBILU " displayName="UA UROBILINOGEN DIPSTICK" /> <statusCode code="completed " /> <effectiveTime value="563580826932" /> <value unit="" xsi :type="PQ" value="NORMAL" /> <referenceRange> < observationRange> <text>NORMAL</text> </observationRange > </referenceRange> </observation> </component> < component> <observation moodCode="EVN" classCode="OBS"> < templateId root="16.840.1.948675.10..4.2" /> <id nullFlavor="NA " /> <code codeSystem="local" code="BILU" displayName="UA BILIRUBIN DIPSTICK" /> <statusCode code="completed" /> <effectiveTime value="574589434376" /> <value unit="" xsi:type="PQ" value="NEGATIVE" / > <referenceRange> <observationRange> <text> NEGATIVE</text> </observationRange> </referenceRange> </observation> </component> <component> <observation moodCode ="EVN" classCode="OBS"> <templateId root= "216.840.1.774750.10.4.2" /> <id nullFlavor="NA" /> < code codeSystem="local" code="ADAM" displayName="UA BLOOD DIPSTICK" /> < statusCode code="completed" /> <effectiveTime value="637442432794" /> <value unit="" xsi:type="PQ" value="TRACE" /> < interpretationCode codeSystem="local" code="*" /> <referenceRange> <observationRange> <text>NEGATIVE</text> </ observationRange> </referenceRange> </observation> </ component> <component> <observation moodCode="EVN" classCode="OBS"> <templateId root="16.840.1.328947.06.06.22.4.2" /> <id nullFlavor="NA" /> <code codeSystem="local" code="SPGRU" displayName= "UA SPECIFIC GRAVITY" /> <statusCode code="completed" /> < effectiveTime value="506109648310" /> <value unit="" xsi:type="PQ" value="1.025" /> <referenceRange> <observationRange> <text>1.015-1.025</text> </observationRange> </ referenceRange> </observation> </component> <component> <observation moodCode="EVN" classCode="OBS"> <templateId root= "16.840.1.026647.06.06.22.4.2" /> <id nullFlavor="NA" /> < code codeSystem="local" code="INGRID" displayName="UR PH" /> <statusCode code="completed" /> <effectiveTime value="057554365520" /> < value unit="" xsi:type="PQ" value="6.0" /> <referenceRange> <observationRange> <text>5.0-7.0</text> </ observationRange> </referenceRange> </observation> </ component> </organizer> </entry> <entry> <organizer moodCode="EVN" classCode="BATTERY"> <templateId root="16.840.1.863504.10..22.4.1" /> <id nullFlavor="NA" /> <code codeSystem="local" code="UAMICRO" displayName="UA MICROSCOPIC" /> <statusCode code="completed" /> < component> <observation moodCode="EVN" classCode="OBS"> < templateId root="16.840.1.095754...4.2" /> <id nullFlavor="NA " /> <code codeSystem="local" code="MUCUSU" displayName="UA MUCUS" /> <statusCode code="completed" /> <effectiveTime value= "973885774274" /> <value unit="" xsi:type="PQ" value="1+" /> < referenceRange> <observationRange> <text>NEG TO 1+</text > </observationRange> </referenceRange> </observation > </component> <component> <observation moodCode="EVN" classCode="OBS"> <templateId root="10.03.840.1.545376.10..22.4.2" /> <id nullFlavor="NA" /> <code codeSystem="local" code="RBCU" displayName="UA RBC" /> <statusCode code="completed" /> < effectiveTime value="424876267846" /> <value unit="rbc/hpf" xsi:type= "PQ" value="0-3" /> <referenceRange> <observationRange> <text>0 - 3</text> </observationRange> </ referenceRange> </observation> </component> <component> <observation moodCode="EVN" classCode="OBS"> <templateId root= "216.840.1.459968.10..22.4.2" /> <id nullFlavor="NA" /> < code codeSystem="local" code="UAVOL" displayName="UA VOLUME FOR EXAM" /> <statusCode code="completed" /> <effectiveTime value="823149037696" /> <value unit="mL" xsi:type="PQ" value="12.0" /> < referenceRange> <observationRange> <text>(12mL STD)</ text> </observationRange> </referenceRange> </ observation> </component> <component> <observation moodCode= "EVN" classCode="OBS"> <templateId root="10.03.840.1.705138.10..4.2 " /> <id nullFlavor="NA" /> <code codeSystem="local" code= "WBCU" displayName="UA WBC" /> <statusCode code="completed" /> <effectiveTime value="239617993310" /> <value unit="wbc/hpf" xsi:type ="PQ" value="2-5" /> <referenceRange> <observationRange> <text>0 - 5</text> </observationRange> </ referenceRange> </observation> </component> </organizer> </entry > <entry> <organizer moodCode="EVN" classCode="BATTERY"> <templateId root="16.840.1.302117.10..22.4.1" /> <id nullFlavor="NA" /> <code codeSystem="local" code="CHL" displayName="CHLAMYDIA DNA BY PCR" /> < statusCode code="completed" /> <component> <observation moodCode= "EVN" classCode="OBS"> <templateId root="2.840.1.403480.10..22.4.2 " /> <id nullFlavor="NA" /> <code codeSystem="local" code="MB " displayName="Microbiology" /> <statusCode code="completed" /> <effectiveTime value="423081780757" /> <value xsi:type="ST" value="< pre><b>CHLAMYDIA DNA BY PCR - GONORRHOEA DNA BY PCR</b> See BelowCHLAMYDIA DNA BY PCR(F) Cosme Date/Time: 04/27/2016 18:15 Irvin Date/Time: 04/29/2016 13:36SOURCE: URINESPEC DESC: [address] [id number] BelowGONORRHOEA DNA BY PCR(F) Cosme Date/Time: 04/27/2016 18:15 Irvin Date/ Time: 04/29/2016 13:36SOURCE: URINESPEC DESC: [address] [id number]</pre>" /> <referenceRange> <observationRange> <text /> </observationRange> </referenceRange> </observation> </component> </organizer > </entry> <entry> <organizer moodCode="EVN" classCode="BATTERY"> < templateId root="10.03.840.1.228195.10..22.4.1" /> <id nullFlavor="NA" /> <code codeSystem="local" code="PREGU" displayName="UR TEST" /> <statusCode code="completed" /> <component> <observation moodCode="EVN" classCode="OBS"> <templateId root= "216.840.1.605075.10..22.4.2" /> <id nullFlavor="NA" /> < code codeSystem="local" code="PREGU" displayName="UR TEST" /> <statusCode code="completed" /> <effectiveTime value="234406991177" / > <value unit="" xsi:type="PQ" value="NEGATIVE" /> < referenceRange> <observationRange> <text>NEGATIVE</text > </observationRange> </referenceRange> </observation > </component> </organizer> </entry> <entry> <organizer moodCode= "EVN" classCode="BATTERY"> <templateId root="2.16.840.1.466538.10.20.22.4.1 " /> <id nullFlavor="NA" /> <code codeSystem="local" code="GRAM" displayName="GRAM STAIN - CHLAMYDIA DNA BY PCR" /> <statusCode code= "completed" /> <component> <observation moodCode="EVN" classCode= "OBS"> <templateId root="2.16.840.1.580877.10.20.22.4.2" /> < id nullFlavor="NA" /> <code codeSystem="local" code="MB" displayName= "Microbiology" /> <statusCode code="completed" /> < effectiveTime value="186497153322" /> <value xsi:type="ST" value="<pre> <b>GRAM STAIN</b> See BelowGRAM STAIN(F) Cosme Date/Time: 2015 18:22 Irvin Date/Time: 04/27/2016 18:48SOURCE : VAGINALSPEC DESC: GRAM STAINMODERATE NEUTROPHILSRARE MIXED BACTERIAL FLORANO ORGANISMS SEEN RESEMBLING NEISSERIA GONORRHOEAESAKAKAWEA [facility]ENTER[address] [place] [address]</pre>" /> <referenceRange> < observationRange> <text /> </observationRange> </referenceRange> </observation> </component> </organizer> </ entry> <entry> <organizer moodCode="EVN" classCode="BATTERY"> < templateId root="10.03.840.1.105249...4.1" /> <id nullFlavor="NA" /> <code codeSystem="local" code="CBCD" displayName="CBC W/DIFF" /> < statusCode code="completed" /> <component> <observation moodCode= "EVN" classCode="OBS"> <templateId root="840.1.021472.06.06.224.2 " /> <id nullFlavor="NA" /> <code codeSystem="local" code="BA# " displayName="BASOPHIL #" /> <statusCode code="completed" /> <effectiveTime value="" /> <value unit="k/cumm" xsi:type= "PQ" value="0.1" /> <referenceRange> <observationRange> <text>0.0-0.2</text> </observationRange> </ referenceRange> </observation> </component> <component> <observation moodCode="EVN" classCode="OBS"> <templateId root= "10.03.840.1.973056.06.06.224.2" /> <id nullFlavor="NA" /> < code codeSystem="local" code="BA%" displayName="BASOPHIL %" /> <statusCode code="completed" /> <effectiveTime value="" /> <value unit="%" xsi:type="PQ" value="1" /> < referenceRange> <observationRange> <text>0-1</text> </observationRange> </referenceRange> </observation> </component> <component> <observation moodCode="EVN" classCode= "OBS"> <templateId root="10.03.840.1.474987.06.06.22.4.2" /> < id nullFlavor="NA" /> <code codeSystem="local" code="EO#" displayName= "EOSINOPHIL #" /> <statusCode code="completed" /> < effectiveTime value="" /> <value unit="k/cumm" xsi:type="PQ " value="0.2" /> <referenceRange> <observationRange> <text>0.1-0.5</text> </observationRange> </ referenceRange> </observation> </component> <component> <observation moodCode="EVN" classCode="OBS"> <templateId root= "2.16.840.1.586781.06.06.22.4.2" /> <id nullFlavor="NA" /> < code codeSystem="local" code="EO%" displayName="EOSINOPHIL %" /> <statusCode code="completed" /> <effectiveTime value="" /> <value unit="%" xsi:type="PQ" value="3" /> < referenceRange> <observationRange> <text>2-4</text> </observationRange> </referenceRange> </observation> </component> <component> <observation moodCode="EVN" classCode= "OBS"> <templateId root="2.16.840.1.748014.06.06.22.4.2" /> < id nullFlavor="NA" /> <code codeSystem="local" code="GR#" displayName= "GRANULOCYTE #" /> <statusCode code="completed" /> < effectiveTime value="" /> <value unit="k/cumm" xsi:type="PQ " value="2.9" /> <referenceRange> <observationRange> <text>2.0-9.0</text> </observationRange> </ referenceRange> </observation> </component> <component> <observation moodCode="EVN" classCode="OBS"> <templateId root= "216.840.1.919986.10.22.4.2" /> <id nullFlavor="NA" /> < code codeSystem="local" code="GR%" displayName="GRANULOCYTE %" /> <statusCode code="completed" /> <effectiveTime value=" " /> <value unit="%" xsi:type="PQ" value="52" /> < referenceRange> <observationRange> <text>50-75</text> </observationRange> </referenceRange> </observation> </component> <component> <observation moodCode="EVN" classCode= "OBS"> <templateId root="16.840.1.213250...4.2" /> < id nullFlavor="NA" /> <code codeSystem="local" code="LY#" displayName= "LYMPHOCYTE #" /> <statusCode code="completed" /> < effectiveTime value="" /> <value unit="k/cumm" xsi:type="PQ " value="1.7" /> <referenceRange> <observationRange> <text>1.0-4.0</text> </observationRange> </ referenceRange> </observation> </component> <component> <observation moodCode="EVN" classCode="OBS"> <templateId root= "16.840.1.284557.10.2022.4.2" /> <id nullFlavor="NA" /> < code codeSystem="local" code="LY%" displayName="LYMPHOCYTE %" /> <statusCode code="completed" /> <effectiveTime value="" /> <value unit="%" xsi:type="PQ" value="31" /> < interpretationCode codeSystem="local" code="*" /> <referenceRange> <observationRange> <text>20-30</text> </ observationRange> </referenceRange> </observation> </ component> <component> <observation moodCode="EVN" classCode="OBS"> <templateId root="216.840.1.907318.10..4.2" /> <id nullFlavor="NA" /> <code codeSystem="local" code="MCH" displayName= "MEAN CELL HGB" /> <statusCode code="completed" /> < effectiveTime value="" /> <value unit="pg" xsi:type="PQ" value="23.4" /> <interpretationCode codeSystem="local" code="*" /> <referenceRange> <observationRange> <text>27.0- 33.0</text> </observationRange> </referenceRange> </ observation> </component> <component> <observation moodCode= "EVN" classCode="OBS"> <templateId root="216.840.1.644644...4.2 " /> <id nullFlavor="NA" /> <code codeSystem="local" code= "MCHC" displayName="MEAN CELL HGB CONCENTRATION" /> <statusCode code= "completed" /> <effectiveTime value="" /> <value unit="g/dL" xsi:type="PQ" value="30.6" /> <interpretationCode codeSystem="local" code="*" /> <referenceRange> < observationRange> <text>32.0-37.0</text> </ observationRange> </referenceRange> </observation> </ component> <component> <observation moodCode="EVN" classCode="OBS"> <templateId root="216.840.1.617774.06.06.22.4.2" /> <id nullFlavor="NA" /> <code codeSystem="local" code="MCV" displayName= "MEAN CELL VOLUME" /> <statusCode code="completed" /> < effectiveTime value="" /> <value unit="fl" xsi:type="PQ" value="76.3" /> <interpretationCode codeSystem="local" code="*" /> <referenceRange> <observationRange> <text>80.0- 100.0</text> </observationRange> </referenceRange> </ observation> </component> <component> <observation moodCode= "EVN" classCode="OBS"> <templateId root="216.840.1.650881.06.06.22.4.2 " /> <id nullFlavor="NA" /> <code codeSystem="local" code="MO# " displayName="MONOCYTE #" /> <statusCode code="completed" /> <effectiveTime value="" /> <value unit="k/cumm" xsi:type= "PQ" value="0.7" /> <referenceRange> <observationRange> <text>0.1-1.0</text> </observationRange> </ referenceRange> </observation> </component> <component> <observation moodCode="EVN" classCode="OBS"> <templateId root= "16.840.1.282460.06.06.22.4.2" /> <id nullFlavor="NA" /> < code codeSystem="local" code="MO%" displayName="MONOCYTE %" /> <statusCode code="completed" /> <effectiveTime value="" /> <value unit="%" xsi:type="PQ" value="12" /> < interpretationCode codeSystem="local" code="*" /> <referenceRange> <observationRange> <text>4-6</text> </ observationRange> </referenceRange> </observation> </ component> <component> <observation moodCode="EVN" classCode="OBS"> <templateId root="16.840.1.282330.10.20.22.4.2" /> <id nullFlavor="NA" /> <code codeSystem="local" code="RBC" displayName=" RED BLOOD CELL" /> <statusCode code="completed" /> < effectiveTime value="" /> <value unit="m/cumm" xsi:type="PQ " value="3.89" /> <interpretationCode codeSystem="local" code="*" /> <referenceRange> <observationRange> <text>4.00- 6.00</text> </observationRange> </referenceRange> </ observation> </component> <component> <observation moodCode= "EVN" classCode="OBS"> <templateId root="10.03.840.1.577565.10..22.4.2 " /> <id nullFlavor="NA" /> <code codeSystem="local" code="RDW " displayName="RED CELL DISTRIBUTION WIDTH" /> <statusCode code= "completed" /> <effectiveTime value="" /> <value unit="%" xsi:type="PQ" value="15.7" /> <interpretationCode codeSystem="local" code="*" /> <referenceRange> < observationRange> <text>11.0-15.6</text> </ observationRange> </referenceRange> </observation> </ component> <component> <observation moodCode="EVN" classCode="OBS"> <templateId root="10.03.840.1.593889.10.20.22.4.2" /> <id nullFlavor="NA" /> <code codeSystem="local" code="WBC" displayName= "WHITE BLOOD CELL" /> <statusCode code="completed" /> < effectiveTime value="" /> <value unit="k/cumm" xsi:type="PQ " value="5.6" /> <referenceRange> <observationRange> <text>5.0-10.0</text> </observationRange> </ referenceRange> </observation> </component> <component> <observation moodCode="EVN" classCode="OBS"> <templateId root= "2.16.840.1.248307.10.20.22.4.2" /> <id nullFlavor="NA" /> < code codeSystem="local" code="HGBT" displayName="HEMOGLOBIN" /> < statusCode code="completed" /> <effectiveTime value="" /> <value unit="gm/dL" xsi:type="PQ" value="9.1" /> < interpretationCode codeSystem="local" code="*" /> <referenceRange> <observationRange> <text>12.0-16.0</text> </ observationRange> </referenceRange> </observation> </ component> <component> <observation moodCode="EVN" classCode="OBS"> <templateId root="216.840.1.517363.10.20.22.4.2" /> <id nullFlavor="NA" /> <code codeSystem="local" code="HCTT" displayName= "HEMATOCRIT" /> <statusCode code="completed" /> < effectiveTime value="" /> <value unit="%" xsi:type="PQ " value="29.7" /> <interpretationCode codeSystem="local" code="*" /> <referenceRange> <observationRange> <text>37.0- 47.0</text> </observationRange> </referenceRange> </ observation> </component> <component> <observation moodCode= "EVN" classCode="OBS"> <templateId root="216.840.1.657846.10..22.4.2 " /> <id nullFlavor="NA" /> <code codeSystem="local" code="PLT " displayName="PLATELET COUNT" /> <statusCode code="completed" /> <effectiveTime value="" /> <value unit="k/cumm" xsi: type="PQ" value="389" /> <referenceRange> <observationRange > <text>150-400</text> </observationRange> </ referenceRange> </observation> </component> </organizer> </entry > <entry> <organizer moodCode="EVN" classCode="BATTERY"> <templateId root="216.840.1.217138.10..22.4.1" /> <id nullFlavor="NA" /> <code codeSystem="local" code="iCHEM8" displayName="CHEM/HEM PROFILE-BEDSIDE" /> <statusCode code="completed" /> <component> <observation moodCode= "EVN" classCode="OBS"> <templateId root="216.840.1.248047.10..22.4.2 " /> <id nullFlavor="NA" /> <code codeSystem="local" code="K" displayName="POTASSIUM" /> <statusCode code="completed" /> < effectiveTime value="" /> <value unit="mmol/L" xsi:type="PQ " value="4.0" /> <referenceRange> <observationRange> <text>3.5-5.3</text> </observationRange> </ referenceRange> </observation> </component> <component> <observation moodCode="EVN" classCode="OBS"> <templateId root= "2.16.840.1.808360...4.2" /> <id nullFlavor="NA" /> < code codeSystem="local" code="CMETHOD" displayName="METHOD" /> < statusCode code="completed" /> <effectiveTime value="" /> <value unit="" xsi:type="PQ" value="Bedside" /> < referenceRange> <observationRange> <text /> < /observationRange> </referenceRange> </observation> </ component> <component> <observation moodCode="EVN" classCode="OBS"> <templateId root="216.840.1.229606.06.06.22.4.2" /> <id nullFlavor="NA" /> <code codeSystem="local" code="GAP" displayName= "ANION GAP" /> <statusCode code="completed" /> <effectiveTime value="" /> <value unit="mmol/L" xsi:type="PQ" value="15" / > <referenceRange> <observationRange> <text>10- 20</text> </observationRange> </referenceRange> </ observation> </component> <component> <observation moodCode= "EVN" classCode="OBS"> <templateId root="216.840.1.608314.06.06.22.4.2 " /> <id nullFlavor="NA" /> <code codeSystem="local" code= "HMETHOD" displayName="METHOD" /> <statusCode code="completed" /> <effectiveTime value="" /> <value unit="" xsi:type="PQ " value="Bedside" /> <referenceRange> <observationRange> <text /> </observationRange> </referenceRange> </observation> </component> <component> <observation moodCode="EVN" classCode="OBS"> <templateId root= "16.840.1.344545.10.20.22.4.2" /> <id nullFlavor="NA" /> < code codeSystem="local" code="GLU" displayName="GLUCOSE" /> < statusCode code="completed" /> <effectiveTime value="" /> <value unit="mg/dL" xsi:type="PQ" value="158" /> < interpretationCode codeSystem="local" code="*" /> <referenceRange> <observationRange> <text>70-99</text> </ observationRange> </referenceRange> </observation> </ component> <component> <observation moodCode="EVN" classCode="OBS"> <templateId root="16.840.1.205128.10..22.4.2" /> <id nullFlavor="NA" /> <code codeSystem="local" code="BUN" displayName= "BLOOD UREA NITROGEN" /> <statusCode code="completed" /> < effectiveTime value="" /> <value unit="mg/dL" xsi:type="PQ " value="27" /> <interpretationCode codeSystem="local" code="*" /> <referenceRange> <observationRange> <text>7-20</ text> </observationRange> </referenceRange> </ observation> </component> <component> <observation moodCode= "EVN" classCode="OBS"> <templateId root="16.840.1.784308.10..22.4.2 " /> <id nullFlavor="NA" /> <code codeSystem="local" code= "CREAT" displayName="CREATININE" /> <statusCode code="completed" /> <effectiveTime value="" /> <value unit="mg/dL" xsi: type="PQ" value="1.4" /> <interpretationCode codeSystem="local" code="* " /> <referenceRange> <observationRange> <text> 0.6-1.0</text> </observationRange> </referenceRange> </observation> </component> <component> <observation moodCode= "EVN" classCode="OBS"> <templateId root="216.840.1.837946...4.2 " /> <id nullFlavor="NA" /> <code codeSystem="local" code= "HGBT" displayName="HEMOGLOBIN" /> <statusCode code="completed" /> <effectiveTime value="" /> <value unit="gm/dL" xsi: type="PQ" value="10.2" /> <interpretationCode codeSystem="local" code= "*" /> <referenceRange> <observationRange> < text>12.0-16.0</text> </observationRange> </referenceRange> </observation> </component> <component> <observation moodCode="EVN" classCode="OBS"> <templateId root= "16.840.1.085258.22.4.2" /> <id nullFlavor="NA" /> < code codeSystem="local" code="HCTT" displayName="HEMATOCRIT" /> < statusCode code="completed" /> <effectiveTime value="" /> <value unit="%" xsi:type="PQ" value="30.0" /> < interpretationCode codeSystem="local" code="*" /> <referenceRange> <observationRange> <text>37.0-47.0</text> </ observationRange> </referenceRange> </observation> </ component> <component> <observation moodCode="EVN" classCode="OBS"> <templateId root="216.840.1.028180.06.06.22.4.2" /> <id nullFlavor="NA" /> <code codeSystem="local" code="NA" displayName= "SODIUM" /> <statusCode code="completed" /> <effectiveTime value="" /> <value unit="mmol/L" xsi:type="PQ" value="131" /> <interpretationCode codeSystem="local" code="*" /> < referenceRange> <observationRange> <text>135-148</text> </observationRange> </referenceRange> </observation > </component> <component> <observation moodCode="EVN" classCode="OBS"> <templateId root="2.16.840.1.721305....4.2" /> <id nullFlavor="NA" /> <code codeSystem="local" code="CL" displayName="CHLORIDE" /> <statusCode code="completed" /> < effectiveTime value="" /> <value unit="mmol/L" xsi:type="PQ " value="97" /> <interpretationCode codeSystem="local" code="*" /> <referenceRange> <observationRange> <text>98-110</ text> </observationRange> </referenceRange> </ observation> </component> <component> <observation moodCode= "EVN" classCode="OBS"> <templateId root="216.840.1.751944....4.2 " /> <id nullFlavor="NA" /> <code codeSystem="local" code="CO2 " displayName="CARBON DIOXIDE" /> <statusCode code="completed" /> <effectiveTime value="" /> <value unit="mmol/L" xsi: type="PQ" value="24" /> <referenceRange> <observationRange> <text>21-32</text> </observationRange> </ referenceRange> </observation> </component> <component> <observation moodCode="EVN" classCode="OBS"> <templateId root= "216.840.1.890270.10..22.4.2" /> <id nullFlavor="NA" /> < code codeSystem="local" code="CAION" displayName="CALCIUM IONIZED" /> < statusCode code="completed" /> <effectiveTime value="" /> <value unit="mg/dL" xsi:type="PQ" value="4.8" /> < referenceRange> <observationRange> <text>4.5-5.3</text> </observationRange> </referenceRange> </observation > </component> </organizer> </entry> <entry> <organizer moodCode= "EVN" classCode="BATTERY"> <templateId root="216.840.1.664597.10..22.4.1 " /> <id nullFlavor="NA" /> <code codeSystem="local" code="iTROPI" displayName="TROPONIN I BEDSIDE" /> <statusCode code="completed" /> < component> <observation moodCode="EVN" classCode="OBS"> < templateId root="216.840.1.884824.10..22.4.2" /> <id nullFlavor="NA " /> <code codeSystem="local" code="CMETHOD" displayName="METHOD" /> <statusCode code="completed" /> <effectiveTime value= "" /> <value unit="" xsi:type="PQ" value="Bedside" /> <referenceRange> <observationRange> <text /> </observationRange> </referenceRange> </observation> </component> <component> <observation moodCode="EVN" classCode="OBS "> <templateId root="10.03.840.1.570808.10..22.4.2" /> <id nullFlavor="NA" /> <code codeSystem="local" code="TROPI" displayName= "TROPONIN I" /> <statusCode code="completed" /> < effectiveTime value="" /> <value unit="ng/mL" xsi:type="PQ " value="< 0.04" /> <referenceRange> <observationRange> <text>< 0.11</text> </observationRange> </ referenceRange> </observation> </component> </organizer> </entry > <entry> <organizer moodCode="EVN" classCode="BATTERY"> <templateId root="2.16.840.1.472753.10..22.4.1" /> <id nullFlavor="NA" /> <code codeSystem="local" code="DIMER" displayName="D-DIMER QUANT" /> <statusCode code="completed" /> <component> <observation moodCode="EVN" classCode="OBS"> <templateId root="2.16.840.1.811328.10..22.4.2" /> <id nullFlavor="NA" /> <code codeSystem="local" code="DIMER" displayName="D-DIMER QUANT" /> <statusCode code="completed" /> <effectiveTime value="" /> <value unit="ng/mL" xsi:type= "PQ" value="664" /> <interpretationCode codeSystem="local" code="*" /> <referenceRange> <observationRange> <text>0- 229</text> </observationRange> </referenceRange> </ observation> </component> </organizer> </entry> <entry> <organizer moodCode="EVN" classCode="BATTERY"> <templateId root= "2.16.840.1.688386...22.4.1" /> <id nullFlavor="NA" /> <code codeSystem="local" code="iCHEM8" displayName="CHEM/HEM PROFILE-BEDSIDE" /> <statusCode code="completed" /> <component> <observation moodCode= "EVN" classCode="OBS"> <templateId root="10.03.840.1.838478.06.06.22.4.2 " /> <id nullFlavor="NA" /> <code codeSystem="local" code="K" displayName="POTASSIUM" /> <statusCode code="completed" /> < effectiveTime value="915612844112" /> <value unit="mmol/L" xsi:type="PQ " value="4.2" /> <referenceRange> <observationRange> <text>3.5-5.3</text> </observationRange> </ referenceRange> </observation> </component> <component> <observation moodCode="EVN" classCode="OBS"> <templateId root= "840.1.415335.06.06.22.4.2" /> <id nullFlavor="NA" /> < code codeSystem="local" code="CMETHOD" displayName="METHOD" /> < statusCode code="completed" /> <effectiveTime value="823953176927" /> <value unit="" xsi:type="PQ" value="Bedside" /> < referenceRange> <observationRange> <text /> < /observationRange> </referenceRange> </observation> </ component> <component> <observation moodCode="EVN" classCode="OBS"> <templateId root="10.03.840.1.332665.22.4.2" /> <id nullFlavor="NA" /> <code codeSystem="local" code="GAP" displayName= "ANION GAP" /> <statusCode code="completed" /> <effectiveTime value="" /> <value unit="mmol/L" xsi:type="PQ" value="15" / > <referenceRange> <observationRange> <text>10- 20</text> </observationRange> </referenceRange> </ observation> </component> <component> <observation moodCode= "EVN" classCode="OBS"> <templateId root="216.840.1.159843.10...4.2 " /> <id nullFlavor="NA" /> <code codeSystem="local" code= "HMETHOD" displayName="METHOD" /> <statusCode code="completed" /> <effectiveTime value="575955643902" /> <value unit="" xsi:type="PQ " value="Bedside" /> <referenceRange> <observationRange> <text /> </observationRange> </referenceRange> </observation> </component> <component> <observation moodCode="EVN" classCode="OBS"> <templateId root= "216.840.1.185580.10..4.2" /> <id nullFlavor="NA" /> < code codeSystem="local" code="GLU" displayName="GLUCOSE" /> < statusCode code="completed" /> <effectiveTime value="" /> <value unit="mg/dL" xsi:type="PQ" value="122" /> < interpretationCode codeSystem="local" code="*" /> <referenceRange> <observationRange> <text>70-99</text> </ observationRange> </referenceRange> </observation> </ component> <component> <observation moodCode="EVN" classCode="OBS"> <templateId root="216.840.1.347363.10.22.4.2" /> <id nullFlavor="NA" /> <code codeSystem="local" code="BUN" displayName= "BLOOD UREA NITROGEN" /> <statusCode code="completed" /> < effectiveTime value="547408925336" /> <value unit="mg/dL" xsi:type="PQ " value="15" /> <referenceRange> <observationRange> <text>7-20</text> </observationRange> </referenceRange > </observation> </component> <component> <observation moodCode="EVN" classCode="OBS"> <templateId root= "2.16.840.1.041469.10..22.4.2" /> <id nullFlavor="NA" /> < code codeSystem="local" code="CREAT" displayName="CREATININE" /> < statusCode code="completed" /> <effectiveTime value="058381650487" /> <value unit="mg/dL" xsi:type="PQ" value="0.9" /> < referenceRange> <observationRange> <text>0.6-1.0</text> </observationRange> </referenceRange> </observation > </component> <component> <observation moodCode="EVN" classCode="OBS"> <templateId root="2.16.840.1.412437.10..22.4.2" /> <id nullFlavor="NA" /> <code codeSystem="local" code="HGBT" displayName="HEMOGLOBIN" /> <statusCode code="completed" /> < effectiveTime value="435224412453" /> <value unit="gm/dL" xsi:type="PQ " value="9.2" /> <interpretationCode codeSystem="local" code="*" /> <referenceRange> <observationRange> <text>12.0- 16.0</text> </observationRange> </referenceRange> </ observation> </component> <component> <observation moodCode= "EVN" classCode="OBS"> <templateId root="2.16.840.1.294449.10.20.22.4.2 " /> <id nullFlavor="NA" /> <code codeSystem="local" code= "HCTT" displayName="HEMATOCRIT" /> <statusCode code="completed" /> <effectiveTime value="" /> <value unit="%" xsi: type="PQ" value="27.0" /> <interpretationCode codeSystem="local" code= "*" /> <referenceRange> <observationRange> < text>37.0-47.0</text> </observationRange> </referenceRange> </observation> </component> <component> <observation moodCode="EVN" classCode="OBS"> <templateId root= "216.840.1.711353...4.2" /> <id nullFlavor="NA" /> < code codeSystem="local" code="NA" displayName="SODIUM" /> <statusCode code="completed" /> <effectiveTime value="" /> < value unit="mmol/L" xsi:type="PQ" value="135" /> <referenceRange> <observationRange> <text>135-148</text> </ observationRange> </referenceRange> </observation> </ component> <component> <observation moodCode="EVN" classCode="OBS"> <templateId root="216.840.1.704776.10.20.22.4.2" /> <id nullFlavor="NA" /> <code codeSystem="local" code="CL" displayName= "CHLORIDE" /> <statusCode code="completed" /> <effectiveTime value="" /> <value unit="mmol/L" xsi:type="PQ" value="100" /> <referenceRange> <observationRange> <text>98 -110</text> </observationRange> </referenceRange> </ observation> </component> <component> <observation moodCode= "EVN" classCode="OBS"> <templateId root="16.840.1.740948.10...4.2 " /> <id nullFlavor="NA" /> <code codeSystem="local" code="CO2 " displayName="CARBON DIOXIDE" /> <statusCode code="completed" /> <effectiveTime value="209703068712" /> <value unit="mmol/L" xsi: type="PQ" value="24" /> <referenceRange> <observationRange> <text>21-32</text> </observationRange> </ referenceRange> </observation> </component> <component> <observation moodCode="EVN" classCode="OBS"> <templateId root= "10.03.840.1.449122...4.2" /> <id nullFlavor="NA" /> < code codeSystem="local" code="CAION" displayName="CALCIUM IONIZED" /> < statusCode code="completed" /> <effectiveTime value="562718839562" /> <value unit="mg/dL" xsi:type="PQ" value="4.8" /> < referenceRange> <observationRange> <text>4.5-5.3</text> </observationRange> </referenceRange> </observation > </component> </organizer> </entry> <entry> <organizer moodCode= "EVN" classCode="BATTERY"> <templateId root="10.03.840.1.875017.10..4.1 " /> <id nullFlavor="NA" /> <code codeSystem="local" code="iTROPI" displayName="TROPONIN I BEDSIDE" /> <statusCode code="completed" /> < component> <observation moodCode="EVN" classCode="OBS"> < templateId root="16.840.1.327116.06.06.22.4.2" /> <id nullFlavor="NA " /> <code codeSystem="local" code="CMETHOD" displayName="METHOD" /> <statusCode code="completed" /> <effectiveTime value= "470655664463" /> <value unit="" xsi:type="PQ" value="Bedside" /> <referenceRange> <observationRange> <text /> </observationRange> </referenceRange> </observation> </component> <component> <observation moodCode="EVN" classCode="OBS "> <templateId root="10.03.840.1.807849.06.06.22.4.2" /> <id nullFlavor="NA" /> <code codeSystem="local" code="TROPI" displayName= "TROPONIN I" /> <statusCode code="completed" /> < effectiveTime value="884170149321" /> <value unit="ng/mL" xsi:type="PQ " value="< 0.04" /> <referenceRange> <observationRange> <text>< 0.11</text> </observationRange> </ referenceRange> </observation> </component> </organizer> </entry > <entry> <organizer moodCode="EVN" classCode="BATTERY"> <templateId root="10.03.840.1.242776.06.06..4.1" /> <id nullFlavor="NA" /> <code codeSystem="local" code="UA" displayName="URINALYSIS, ROUTINE" /> < statusCode code="completed" /> <component> <observation moodCode= "EVN" classCode="OBS"> <templateId root="10.03.840.1.205972.06.06.22.4.2 " /> <id nullFlavor="NA" /> <code codeSystem="local" code= "LEUESU" displayName="UA LEUKOCYTE ESTERASE DIPSTICK" /> <statusCode code="completed" /> <effectiveTime value="143683641473" /> < value unit="" xsi:type="PQ" value="NEGATIVE" /> <referenceRange> <observationRange> <text>NEGATIVE</text> </ observationRange> </referenceRange> </observation> </ component> <component> <observation moodCode="EVN" classCode="OBS"> <templateId root="216.840.1.604788.06.06.22.4.2" /> <id nullFlavor="NA" /> <code codeSystem="local" code="NITRIU" displayName= "UA NITRITE DIPSTICK" /> <statusCode code="completed" /> < effectiveTime value="" /> <value unit="" xsi:type="PQ" value="NEGATIVE" /> <referenceRange> <observationRange> <text>NEGATIVE</text> </observationRange> </ referenceRange> </observation> </component> <component> <observation moodCode="EVN" classCode="OBS"> <templateId root= "216.840.1.462716.06.06.22.4.2" /> <id nullFlavor="NA" /> < code codeSystem="local" code="PROTEIU" displayName="UA PROTEIN DIPSTICK" /> <statusCode code="completed" /> <effectiveTime value= "" /> <value unit="" xsi:type="PQ" value="NEGATIVE" /> <referenceRange> <observationRange> <text>NEGATIVE </text> </observationRange> </referenceRange> </ observation> </component> <component> <observation moodCode= "EVN" classCode="OBS"> <templateId root="16.840.1.869737.10..22.4.2 " /> <id nullFlavor="NA" /> <code codeSystem="local" code= "DGLUU" displayName="UA GLUCOSE DIPSTICK" /> <statusCode code= "completed" /> <effectiveTime value="" /> <value unit="" xsi:type="PQ" value="NEGATIVE" /> <referenceRange> < observationRange> <text>NEGATIVE</text> </ observationRange> </referenceRange> </observation> </ component> <component> <observation moodCode="EVN" classCode="OBS"> <templateId root="10.03.840.1.675996.10..4.2" /> <id nullFlavor="NA" /> <code codeSystem="local" code="KETONU" displayName= "UA KETONE DIPSTICK" /> <statusCode code="completed" /> < effectiveTime value="" /> <value unit="" xsi:type="PQ" value="NEGATIVE" /> <referenceRange> <observationRange> <text>NEGATIVE</text> </observationRange> </ referenceRange> </observation> </component> <component> <observation moodCode="EVN" classCode="OBS"> <templateId root= "10.03.840.1.428382.10..4.2" /> <id nullFlavor="NA" /> < code codeSystem="local" code="UROBILU" displayName="UA UROBILINOGEN DIPSTICK" / > <statusCode code="completed" /> <effectiveTime value= "" /> <value unit="" xsi:type="PQ" value="NORMAL" /> <referenceRange> <observationRange> <text>NORMAL</ text> </observationRange> </referenceRange> </ observation> </component> <component> <observation moodCode= "EVN" classCode="OBS"> <templateId root="216.840.1.783163.06.06.22.4.2 " /> <id nullFlavor="NA" /> <code codeSystem="local" code= "BILU" displayName="UA BILIRUBIN DIPSTICK" /> <statusCode code= "completed" /> <effectiveTime value="" /> <value unit="" xsi:type="PQ" value="NEGATIVE" /> <referenceRange> < observationRange> <text>NEGATIVE</text> </ observationRange> </referenceRange> </observation> </ component> <component> <observation moodCode="EVN" classCode="OBS"> <templateId root="16.840.1.853363.06.06.22.4.2" /> <id nullFlavor="NA" /> <code codeSystem="local" code="ADAM" displayName="UA BLOOD DIPSTICK" /> <statusCode code="completed" /> < effectiveTime value="" /> <value unit="" xsi:type="PQ" value="NEGATIVE" /> <referenceRange> <observationRange> <text>NEGATIVE</text> </observationRange> </ referenceRange> </observation> </component> <component> <observation moodCode="EVN" classCode="OBS"> <templateId root= "16.840.1.579097.06.06.22.4.2" /> <id nullFlavor="NA" /> < code codeSystem="local" code="SPGRU" displayName="UA SPECIFIC GRAVITY" /> <statusCode code="completed" /> <effectiveTime value=" " /> <value unit="" xsi:type="PQ" value="1.010" /> < interpretationCode codeSystem="local" code="*" /> <referenceRange> <observationRange> <text>1.015-1.025</text> </ observationRange> </referenceRange> </observation> </ component> <component> <observation moodCode="EVN" classCode="OBS"> <templateId root="16.840.1.763142.10.4.2" /> <id nullFlavor="NA" /> <code codeSystem="local" code="INGRID" displayName="UR PH" /> <statusCode code="completed" /> <effectiveTime value= "397369236721" /> <value unit="" xsi:type="PQ" value="5.5" /> <referenceRange> <observationRange> <text>5.0-7.0</text > </observationRange> </referenceRange> </observation > </component> </organizer> </entry> <entry> <organizer moodCode= "EVN" classCode="BATTERY"> <templateId root="10.03.840.1.090505.06.06.22.4.1 " /> <id nullFlavor="NA" /> <code codeSystem="local" code="iCHEM8" displayName="CHEM/HEM PROFILE-BEDSIDE" /> <statusCode code="completed" /> <component> <observation moodCode="EVN" classCode="OBS"> < templateId root="16.840.1.004062.1022.4.2" /> <id nullFlavor="NA " /> <code codeSystem="local" code="K" displayName="POTASSIUM" /> <statusCode code="completed" /> <effectiveTime value="074735924721 " /> <value unit="mmol/L" xsi:type="PQ" value="3.5" /> < referenceRange> <observationRange> <text>3.5-5.3</text> </observationRange> </referenceRange> </observation > </component> <component> <observation moodCode="EVN" classCode="OBS"> <templateId root="16.840.1.327262.10.4.2" /> <id nullFlavor="NA" /> <code codeSystem="local" code="CMETHOD " displayName="METHOD" /> <statusCode code="completed" /> < effectiveTime value="159487306495" /> <value unit="" xsi:type="PQ" value="Bedside" /> <referenceRange> <observationRange> <text /> </observationRange> </referenceRange> </observation> </component> <component> <observation moodCode="EVN" classCode="OBS"> <templateId root= "10.03.840.1.146867.06.06.22.4.2" /> <id nullFlavor="NA" /> < code codeSystem="local" code="GAP" displayName="ANION GAP" /> < statusCode code="completed" /> <effectiveTime value="008991603517" /> <value unit="mmol/L" xsi:type="PQ" value="19" /> < referenceRange> <observationRange> <text>10-20</text> </observationRange> </referenceRange> </observation> </component> <component> <observation moodCode="EVN" classCode= "OBS"> <templateId root="10.03.840.1.656429.06.06.22.4.2" /> < id nullFlavor="NA" /> <code codeSystem="local" code="HMETHOD" displayName="METHOD" /> <statusCode code="completed" /> < effectiveTime value="955480331511" /> <value unit="" xsi:type="PQ" value="Bedside" /> <referenceRange> <observationRange> <text /> </observationRange> </referenceRange> </observation> </component> <component> <observation moodCode="EVN" classCode="OBS"> <templateId root= "10.03.840.1.970299.10.20.22.4.2" /> <id nullFlavor="NA" /> < code codeSystem="local" code="GLU" displayName="GLUCOSE" /> < statusCode code="completed" /> <effectiveTime value="204012189078" /> <value unit="mg/dL" xsi:type="PQ" value="173" /> < interpretationCode codeSystem="local" code="*" /> <referenceRange> <observationRange> <text>70-99</text> </ observationRange> </referenceRange> </observation> </ component> <component> <observation moodCode="EVN" classCode="OBS"> <templateId root="840.1.917605.10..4.2" /> <id nullFlavor="NA" /> <code codeSystem="local" code="BUN" displayName= "BLOOD UREA NITROGEN" /> <statusCode code="completed" /> < effectiveTime value="685177149252" /> <value unit="mg/dL" xsi:type="PQ " value="26" /> <interpretationCode codeSystem="local" code="*" /> <referenceRange> <observationRange> <text>7-20</ text> </observationRange> </referenceRange> </ observation> </component> <component> <observation moodCode= "EVN" classCode="OBS"> <templateId root="10.03.840.1.979290.10.20.22.4.2 " /> <id nullFlavor="NA" /> <code codeSystem="local" code= "CREAT" displayName="CREATININE" /> <statusCode code="completed" /> <effectiveTime value="320039757689" /> <value unit="mg/dL" xsi: type="PQ" value="1.0" /> <referenceRange> <observationRange > <text>0.6-1.0</text> </observationRange> </ referenceRange> </observation> </component> <component> <observation moodCode="EVN" classCode="OBS"> <templateId root= "216.840.1.551803.10.20.22.4.2" /> <id nullFlavor="NA" /> < code codeSystem="local" code="HGBT" displayName="HEMOGLOBIN" /> < statusCode code="completed" /> <effectiveTime value="691478528276" /> <value unit="gm/dL" xsi:type="PQ" value="11.9" /> < interpretationCode codeSystem="local" code="*" /> <referenceRange> <observationRange> <text>12.0-16.0</text> </ observationRange> </referenceRange> </observation> </ component> <component> <observation moodCode="EVN" classCode="OBS"> <templateId root="216.840.1.228279.10.20.22.4.2" /> <id nullFlavor="NA" /> <code codeSystem="local" code="HCTT" displayName= "HEMATOCRIT" /> <statusCode code="completed" /> < effectiveTime value="768387899114" /> <value unit="%" xsi:type="PQ " value="35.0" /> <interpretationCode codeSystem="local" code="*" /> <referenceRange> <observationRange> <text>37.0- 47.0</text> </observationRange> </referenceRange> </ observation> </component> <component> <observation moodCode= "EVN" classCode="OBS"> <templateId root="216.840.1.414556.10..22.4.2 " /> <id nullFlavor="NA" /> <code codeSystem="local" code="NA " displayName="SODIUM" /> <statusCode code="completed" /> < effectiveTime value="" /> <value unit="mmol/L" xsi:type="PQ " value="136" /> <referenceRange> <observationRange> <text>135-148</text> </observationRange> </ referenceRange> </observation> </component> <component> <observation moodCode="EVN" classCode="OBS"> <templateId root= "216.840.1.173275.10...4.2" /> <id nullFlavor="NA" /> < code codeSystem="local" code="CL" displayName="CHLORIDE" /> < statusCode code="completed" /> <effectiveTime value="" /> <value unit="mmol/L" xsi:type="PQ" value="103" /> < referenceRange> <observationRange> <text>98-110</text> </observationRange> </referenceRange> </observation> </component> <component> <observation moodCode="EVN" classCode ="OBS"> <templateId root="16.840.1.289735.10..22.4.2" /> < id nullFlavor="NA" /> <code codeSystem="local" code="CO2" displayName= "CARBON DIOXIDE" /> <statusCode code="completed" /> < effectiveTime value="281127267198" /> <value unit="mmol/L" xsi:type="PQ " value="19" /> <interpretationCode codeSystem="local" code="*" /> <referenceRange> <observationRange> <text>21-32</ text> </observationRange> </referenceRange> </ observation> </component> <component> <observation moodCode= "EVN" classCode="OBS"> <templateId root="16.840.1.430662.10..22.4.2 " /> <id nullFlavor="NA" /> <code codeSystem="local" code= "CAION" displayName="CALCIUM IONIZED" /> <statusCode code="completed" / > <effectiveTime value="749078379430" /> <value unit="mg/dL" xsi:type="PQ" value="4.7" /> <referenceRange> < observationRange> <text>4.5-5.3</text> </ observationRange> </referenceRange> </observation> </ component> </organizer> </entry> <entry> <organizer moodCode="EVN" classCode="BATTERY"> <templateId root="10.03.840.1.996246.10..22.4.1" /> <id nullFlavor="NA" /> <code codeSystem="local" code="iTROPI" displayName="TROPONIN I BEDSIDE" /> <statusCode code="completed" /> < component> <observation moodCode="EVN" classCode="OBS"> < templateId root="10.03.840.1.135262.10..22.4.2" /> <id nullFlavor="NA " /> <code codeSystem="local" code="CMETHOD" displayName="METHOD" /> <statusCode code="completed" /> <effectiveTime value= "058369890835" /> <value unit="" xsi:type="PQ" value="Bedside" /> <referenceRange> <observationRange> <text /> </observationRange> </referenceRange> </observation> </component> <component> <observation moodCode="EVN" classCode="OBS "> <templateId root="2.16.840.1.635995.10..22.4.2" /> <id nullFlavor="NA" /> <code codeSystem="local" code="TROPI" displayName= "TROPONIN I" /> <statusCode code="completed" /> < effectiveTime value="254949488638" /> <value unit="ng/mL" xsi:type="PQ " value="< 0.04" /> <referenceRange> <observationRange> <text>< 0.11</text> </observationRange> </ referenceRange> </observation> </component> </organizer> </entry > <entry> <organizer moodCode="EVN" classCode="BATTERY"> <templateId root="2.16.840.1.416200.10..22.4.1" /> <id nullFlavor="NA" /> <code codeSystem="local" code="LIVER" displayName="HEPATIC FUNCTION PANEL" /> < statusCode code="completed" /> <component> <observation moodCode= "EVN" classCode="OBS"> <templateId root="2.16.840.1.472139.10.20.22.4.2 " /> <id nullFlavor="NA" /> <code codeSystem="local" code= "BILUC" displayName="BILI UNCONJUGATED" /> <statusCode code="completed " /> <effectiveTime value="777170230257" /> <value unit="mg/dL " xsi:type="PQ" value="0.2" /> <referenceRange> < observationRange> <text>0.0-0.7</text> </ observationRange> </referenceRange> </observation> </ component> <component> <observation moodCode="EVN" classCode="OBS"> <templateId root="16.840.1.807348.10.22.4.2" /> <id nullFlavor="NA" /> <code codeSystem="local" code="AST" displayName="AST /SGOT" /> <statusCode code="completed" /> <effectiveTime value ="962614716010" /> <value unit="Units/L" xsi:type="PQ" value="13" /> <referenceRange> <observationRange> <text>10-37< /text> </observationRange> </referenceRange> </ observation> </component> <component> <observation moodCode= "EVN" classCode="OBS"> <templateId root="10.03.840.1.489744.06.06.22.4.2 " /> <id nullFlavor="NA" /> <code codeSystem="local" code="ALT " displayName="ALT/SGPT" /> <statusCode code="completed" /> < effectiveTime value="815155110649" /> <value unit="Units/L" xsi:type= "PQ" value="16" /> <referenceRange> <observationRange> <text>< 66</text> </observationRange> </ referenceRange> </observation> </component> <component> <observation moodCode="EVN" classCode="OBS"> <templateId root= "10.03.840.1.457318.102022.4.2" /> <id nullFlavor="NA" /> < code codeSystem="local" code="TP" displayName="TOTAL PROTEIN" /> < statusCode code="completed" /> <effectiveTime value="348229827164" /> <value unit="gm/dL" xsi:type="PQ" value="8.6" /> < interpretationCode codeSystem="local" code="*" /> <referenceRange> <observationRange> <text>6.4-8.2</text> </ observationRange> </referenceRange> </observation> </ component> <component> <observation moodCode="EVN" classCode="OBS"> <templateId root="10.03.840.1.059844.10.20.22.4.2" /> <id nullFlavor="NA" /> <code codeSystem="local" code="ALB" displayName= "ALBUMIN" /> <statusCode code="completed" /> <effectiveTime value="691382924390" /> <value unit="gm/dL" xsi:type="PQ" value="3.2" / > <interpretationCode codeSystem="local" code="*" /> < referenceRange> <observationRange> <text>3.4-5.0</text> </observationRange> </referenceRange> </observation > </component> <component> <observation moodCode="EVN" classCode="OBS"> <templateId root="840.1.022441.06.06.22.4.2" /> <id nullFlavor="NA" /> <code codeSystem="local" code="BILTOT" displayName="BILI TOTAL" /> <statusCode code="completed" /> < effectiveTime value="550394073749" /> <value unit="mg/dL" xsi:type="PQ " value="0.3" /> <referenceRange> <observationRange> <text>0.0-1.0</text> </observationRange> </ referenceRange> </observation> </component> <component> <observation moodCode="EVN" classCode="OBS"> <templateId root= "10.03.840.1.983205.10.2022.4.2" /> <id nullFlavor="NA" /> < code codeSystem="local" code="ALKP" displayName="ALKALINE PHOSPHATASE TOTAL" /> <statusCode code="completed" /> <effectiveTime value= "003152699966" /> <value unit="IU/L" xsi:type="PQ" value="114" /> <referenceRange> <observationRange> <text>45-117</ text> </observationRange> </referenceRange> </ observation> </component> <component> <observation moodCode= "EVN" classCode="OBS"> <templateId root="10.03.840.1.242998.22.4.2 " /> <id nullFlavor="NA" /> <code codeSystem="local" code= "BILC" displayName="BILI CONJUGATED" /> <statusCode code="completed" / > <effectiveTime value="479198848329" /> <value unit="mg/dL" xsi:type="PQ" value="< 0.1" /> <referenceRange> < observationRange> <text>0.0-0.3</text> </ observationRange> </referenceRange> </observation> </ component> </organizer> </entry> <entry> <organizer moodCode="EVN" classCode="BATTERY"> <templateId root="10.03.840.1.329886.06.06.22.4.1" /> <id nullFlavor="NA" /> <code codeSystem="local" code="LIP" displayName ="LIPASE" /> <statusCode code="completed" /> <component> < observation moodCode="EVN" classCode="OBS"> <templateId root= "10.03.840.1.069434.1022.4.2" /> <id nullFlavor="NA" /> < code codeSystem="local" code="LIP" displayName="LIPASE" /> <statusCode code="completed" /> <effectiveTime value="181717137042" /> < value unit="Units/L" xsi:type="PQ" value="69" /> <interpretationCode codeSystem="local" code="*" /> <referenceRange> < observationRange> <text>73-393</text> </observationRange > </referenceRange> </observation> </component> </ organizer> </entry> <entry> <organizer moodCode="EVN" classCode="BATTERY"> <templateId root="16.840.1.592883.10..22.4.1" /> <id nullFlavor= "NA" /> <code codeSystem="local" code="DIMER" displayName="D-DIMER QUANT" / > <statusCode code="completed" /> <component> <observation moodCode="EVN" classCode="OBS"> <templateId root= "16.840.1.632097.10..22.4.2" /> <id nullFlavor="NA" /> < code codeSystem="local" code="DIMER" displayName="D-DIMER QUANT" /> < statusCode code="completed" /> <effectiveTime value="839580784269" /> <value unit="ng/mL" xsi:type="PQ" value="456" /> < interpretationCode codeSystem="local" code="*" /> <referenceRange> <observationRange> <text>0-229</text> </ observationRange> </referenceRange> </observation> </ component> </organizer> </entry> <entry> <organizer moodCode="EVN" classCode="BATTERY"> <templateId root="16.840.1.851639.10..22.4.1" /> <id nullFlavor="NA" /> <code codeSystem="local" code="CBCD" displayName="CBC W/DIFF" /> <statusCode code="completed" /> <component > <observation moodCode="EVN" classCode="OBS"> <templateId root= "10.03.840.1.782223.10.2022.4.2" /> <id nullFlavor="NA" /> < code codeSystem="local" code="GR#" displayName="GRANULOCYTE #" /> < statusCode code="completed" /> <effectiveTime value="" /> <value unit="k/cumm" xsi:type="PQ" value="10.3" /> < interpretationCode codeSystem="local" code="*" /> <referenceRange> <observationRange> <text>2.0-9.0</text> </ observationRange> </referenceRange> </observation> </ component> <component> <observation moodCode="EVN" classCode="OBS"> <templateId root="10.03.840.1.731950.10.4.2" /> <id nullFlavor="NA" /> <code codeSystem="local" code="GR%" displayName= "GRANULOCYTE %" /> <statusCode code="completed" /> < effectiveTime value="" /> <value unit="%" xsi:type="PQ " value="86" /> <interpretationCode codeSystem="local" code="*" /> <referenceRange> <observationRange> <text>50-75</ text> </observationRange> </referenceRange> </ observation> </component> <component> <observation moodCode= "EVN" classCode="OBS"> <templateId root="10.03.840.1.693272.10.2022.4.2 " /> <id nullFlavor="NA" /> <code codeSystem="local" code="LY# " displayName="LYMPHOCYTE #" /> <statusCode code="completed" /> <effectiveTime value="" /> <value unit="k/cumm" xsi:type ="PQ" value="0.7" /> <interpretationCode codeSystem="local" code="*" / > <referenceRange> <observationRange> <text>1.0 -4.0</text> </observationRange> </referenceRange> </ observation> </component> <component> <observation moodCode= "EVN" classCode="OBS"> <templateId root="840.1.118910.10.4.2 " /> <id nullFlavor="NA" /> <code codeSystem="local" code="LY& #37;" displayName="LYMPHOCYTE %" /> <statusCode code="completed" / > <effectiveTime value="581847447037" /> <value unit="%" xsi:type="PQ" value="6" /> <interpretationCode codeSystem="local" code= "*" /> <referenceRange> <observationRange> < text>20-30</text> </observationRange> </referenceRange> </observation> </component> <component> <observation moodCode="EVN" classCode="OBS"> <templateId root= "10.03.840.1.315884.06.06.22.4.2" /> <id nullFlavor="NA" /> < code codeSystem="local" code="MCH" displayName="MEAN CELL HGB" /> < statusCode code="completed" /> <effectiveTime value="186468085032" /> <value unit="pg" xsi:type="PQ" value="21.8" /> < interpretationCode codeSystem="local" code="*" /> <referenceRange> <observationRange> <text>27.0-33.0</text> </ observationRange> </referenceRange> </observation> </ component> <component> <observation moodCode="EVN" classCode="OBS"> <templateId root="10.03.830.1.424988.10.20.22.4.2" /> <id nullFlavor="NA" /> <code codeSystem="local" code="MCHC" displayName= "MEAN CELL HGB CONCENTRATION" /> <statusCode code="completed" /> <effectiveTime value="605819618050" /> <value unit="g/dL" xsi:type= "PQ" value="31.6" /> <interpretationCode codeSystem="local" code="*" / > <referenceRange> <observationRange> <text> 32.0-37.0</text> </observationRange> </referenceRange> </observation> </component> <component> <observation moodCode="EVN" classCode="OBS"> <templateId root= "840.1.121270.10.22.4.2" /> <id nullFlavor="NA" /> < code codeSystem="local" code="MCV" displayName="MEAN CELL VOLUME" /> < statusCode code="completed" /> <effectiveTime value="" /> <value unit="fl" xsi:type="PQ" value="68.9" /> < interpretationCode codeSystem="local" code="*" /> <referenceRange> <observationRange> <text>80.0-100.0</text> </ observationRange> </referenceRange> </observation> </ component> <component> <observation moodCode="EVN" classCode="OBS"> <templateId root="840.1.533243.10.2022.4.2" /> <id nullFlavor="NA" /> <code codeSystem="local" code="MO#" displayName= "MONOCYTE #" /> <statusCode code="completed" /> < effectiveTime value="619441435090" /> <value unit="k/cumm" xsi:type="PQ " value="0.9" /> <referenceRange> <observationRange> <text>0.1-1.0</text> </observationRange> </ referenceRange> </observation> </component> <component> <observation moodCode="EVN" classCode="OBS"> <templateId root= "216.840.1.968416.10.20.22.4.2" /> <id nullFlavor="NA" /> < code codeSystem="local" code="MO%" displayName="MONOCYTE %" /> <statusCode code="completed" /> <effectiveTime value="498688347585" /> <value unit="%" xsi:type="PQ" value="8" /> < interpretationCode codeSystem="local" code="*" /> <referenceRange> <observationRange> <text>4-6</text> </ observationRange> </referenceRange> </observation> </ component> <component> <observation moodCode="EVN" classCode="OBS"> <templateId root="10.03.840.1.471202.06.06.22.4.2" /> <id nullFlavor="NA" /> <code codeSystem="local" code="RBC" displayName=" RED BLOOD CELL" /> <statusCode code="completed" /> < effectiveTime value="561649952797" /> <value unit="m/cumm" xsi:type="PQ " value="4.54" /> <referenceRange> <observationRange> <text>4.00-6.00</text> </observationRange> </ referenceRange> </observation> </component> <component> <observation moodCode="EVN" classCode="OBS"> <templateId root= "16.840.1.544571.10.20.22.4.2" /> <id nullFlavor="NA" /> < code codeSystem="local" code="RDW" displayName="RED CELL DISTRIBUTION WIDTH" /> <statusCode code="completed" /> <effectiveTime value= "" /> <value unit="%" xsi:type="PQ" value="21.1" /> <interpretationCode codeSystem="local" code="*" /> < referenceRange> <observationRange> <text>11.0-15.6</text > </observationRange> </referenceRange> </observation > </component> <component> <observation moodCode="EVN" classCode="OBS"> <templateId root="2.16.840.1.494603.10..4.2" /> <id nullFlavor="NA" /> <code codeSystem="local" code="WBC" displayName="WHITE BLOOD CELL" /> <statusCode code="completed" /> <effectiveTime value="" /> <value unit="k/cumm" xsi: type="PQ" value="12.0" /> <interpretationCode codeSystem="local" code= "*" /> <referenceRange> <observationRange> < text>5.0-10.0</text> </observationRange> </referenceRange> </observation> </component> <component> <observation moodCode="EVN" classCode="OBS"> <templateId root= "216.840.1.425386.10.2022.4.2" /> <id nullFlavor="NA" /> < code codeSystem="local" code="HGBT" displayName="HEMOGLOBIN" /> < statusCode code="completed" /> <effectiveTime value="" /> <value unit="gm/dL" xsi:type="PQ" value="9.9" /> < interpretationCode codeSystem="local" code="*" /> <referenceRange> <observationRange> <text>12.0-16.0</text> </ observationRange> </referenceRange> </observation> </ component> <component> <observation moodCode="EVN" classCode="OBS"> <templateId root="16.840.1.435085.10.20.22.4.2" /> <id nullFlavor="NA" /> <code codeSystem="local" code="HCTT" displayName= "HEMATOCRIT" /> <statusCode code="completed" /> < effectiveTime value="640353739355" /> <value unit="%" xsi:type="PQ " value="31.3" /> <interpretationCode codeSystem="local" code="*" /> <referenceRange> <observationRange> <text>37.0- 47.0</text> </observationRange> </referenceRange> </ observation> </component> <component> <observation moodCode= "EVN" classCode="OBS"> <templateId root="10.03.840.1.633321.10..4.2 " /> <id nullFlavor="NA" /> <code codeSystem="local" code="PLT " displayName="PLATELET COUNT" /> <statusCode code="completed" /> <effectiveTime value="203761362833" /> <value unit="k/cumm" xsi: type="PQ" value="331" /> <referenceRange> <observationRange > <text>150-400</text> </observationRange> </ referenceRange> </observation> </component> </organizer> </entry > <entry> <organizer moodCode="EVN" classCode="BATTERY"> <templateId root="10.03.840.1.970990.10.20.22.4.1" /> <id nullFlavor="NA" /> <code codeSystem="local" code="MORPH" displayName="MORPHOLOGY" /> <statusCode code="completed" /> <component> <observation moodCode="EVN" classCode="OBS"> <templateId root="10.03.840.1.505179.10..22.4.2" /> <id nullFlavor="NA" /> <code codeSystem="local" code="RMORPH" displayName="RBC MORPH" /> <statusCode code="completed" /> < effectiveTime value="881317905887" /> <value unit="" xsi:type="PQ" value="NOTED" /> <referenceRange> <observationRange> <text /> </observationRange> </referenceRange> </observation> </component> </organizer> </entry> <entry> < organizer moodCode="EVN" classCode="BATTERY"> <templateId root= "10.03.840.1.924859.10..22.4.1" /> <id nullFlavor="NA" /> <code codeSystem="local" code="LACT" displayName="LACTIC ACID" /> <statusCode code="completed" /> <component> <observation moodCode="EVN" classCode="OBS"> <templateId root="10.03.840.1.844038.10..22.4.2" /> <id nullFlavor="NA" /> <code codeSystem="local" code="LACT" displayName="LACTIC ACID" /> <statusCode code="completed" /> < effectiveTime value="089658565011" /> <value unit="mmol/L" xsi:type="PQ " value="1.0" /> <referenceRange> <observationRange> <text>0.5-2.0</text> </observationRange> </ referenceRange> </observation> </component> </organizer> </entry > <entry> <organizer moodCode="EVN" classCode="BATTERY"> <templateId root="10.03.830.1.435886.10..22.4.1" /> <id nullFlavor="NA" /> <code codeSystem="local" code="BC" displayName="BLOOD CULTURE" /> <statusCode code="completed" /> <component> <observation moodCode="EVN" classCode="OBS"> <templateId root="10.03.840.1.136767.06.06.22.4.2" /> <id nullFlavor="NA" /> <code codeSystem="local" code="MB" displayName="Microbiology" /> <statusCode code="completed" /> <effectiveTime value="[id number]" /> <value xsi:type="ST" value="<pre ><b>BLOOD CULTURE</b> See BelowIs this a Possible Sepsis/Sepsis patient? YesBLOOD CULTURE(F) Cosme Date/Time: 11/26/2016 06:40 Irvin Date/Time: 12/01/2016 17:00SOURCE: BLOODSPEC DESC: [id number] [place] [address]</pre>" /> <referenceRange> <observationRange> <text /> </observationRange> </referenceRange> </observation> </component> </organizer> </entry> <entry> < organizer moodCode="EVN" classCode="BATTERY"> <templateId root= "10.03.840.1.713627.10..4.1" /> <id nullFlavor="NA" /> <code codeSystem="local" code="UA" displayName="URINALYSIS, ROUTINE" /> < statusCode code="completed" /> <component> <observation moodCode= "EVN" classCode="OBS"> <templateId root="10.03.840.1.465905.10..22.4.2 " /> <id nullFlavor="NA" /> <code codeSystem="local" code= "LEUESU" displayName="UA LEUKOCYTE ESTERASE DIPSTICK" /> <statusCode code="completed" /> <effectiveTime value="" /> < value unit="" xsi:type="PQ" value="NEGATIVE" /> <referenceRange> <observationRange> <text>NEGATIVE</text> </ observationRange> </referenceRange> </observation> </ component> <component> <observation moodCode="EVN" classCode="OBS"> <templateId root="10.03.840.1.044780.10.22.4.2" /> <id nullFlavor="NA" /> <code codeSystem="local" code="NITRIU" displayName= "UA NITRITE DIPSTICK" /> <statusCode code="completed" /> < effectiveTime value="" /> <value unit="" xsi:type="PQ" value="NEGATIVE" /> <referenceRange> <observationRange> <text>NEGATIVE</text> </observationRange> </ referenceRange> </observation> </component> <component> <observation moodCode="EVN" classCode="OBS"> <templateId root= "10.03.840.1.717006...4.2" /> <id nullFlavor="NA" /> < code codeSystem="local" code="PROTEIU" displayName="UA PROTEIN DIPSTICK" /> <statusCode code="completed" /> <effectiveTime value= "[id number]" /> <value unit="" xsi:type="PQ" value="1+" /> < referenceRange> <observationRange> <text>NEGATIVE</text > </observationRange> </referenceRange> </observation > </component> <component> <observation moodCode="EVN" classCode="OBS"> <templateId root="10.03.840.1.348017.06.06.22.4.2" /> <id nullFlavor="NA" /> <code codeSystem="local" code="DGLUU" displayName="UA GLUCOSE DIPSTICK" /> <statusCode code="completed" /> <effectiveTime value="" /> <value unit="" xsi:type= "PQ" value="NEGATIVE" /> <referenceRange> <observationRange > <text>NEGATIVE</text> </observationRange> </ referenceRange> </observation> </component> <component> <observation moodCode="EVN" classCode="OBS"> <templateId root= "216.840.1.652278.06.06.22.4.2" /> <id nullFlavor="NA" /> < code codeSystem="local" code="KETONU" displayName="UA KETONE DIPSTICK" /> <statusCode code="completed" /> <effectiveTime value=" " /> <value unit="" xsi:type="PQ" value="NEGATIVE" /> < referenceRange> <observationRange> <text>NEGATIVE</text > </observationRange> </referenceRange> </observation > </component> <component> <observation moodCode="EVN" classCode="OBS"> <templateId root="216.840.1.220532.06.06.22.4.2" /> <id nullFlavor="NA" /> <code codeSystem="local" code="UROBILU " displayName="UA UROBILINOGEN DIPSTICK" /> <statusCode code="completed " /> <effectiveTime value="" /> <value unit="" xsi :type="PQ" value="NORMAL" /> <referenceRange> < observationRange> <text>NORMAL</text> </observationRange > </referenceRange> </observation> </component> < component> <observation moodCode="EVN" classCode="OBS"> < templateId root="216.840.1.283927.10..22.4.2" /> <id nullFlavor="NA " /> <code codeSystem="local" code="BILU" displayName="UA BILIRUBIN DIPSTICK" /> <statusCode code="completed" /> <effectiveTime value="" /> <value unit="" xsi:type="PQ" value="NEGATIVE" / > <referenceRange> <observationRange> <text> NEGATIVE</text> </observationRange> </referenceRange> </observation> </component> <component> <observation moodCode ="EVN" classCode="OBS"> <templateId root= "216.840.1.190301.10..22.4.2" /> <id nullFlavor="NA" /> < code codeSystem="local" code="ADAM" displayName="UA BLOOD DIPSTICK" /> < statusCode code="completed" /> <effectiveTime value="" /> <value unit="" xsi:type="PQ" value="NEGATIVE" /> < referenceRange> <observationRange> <text>NEGATIVE</text > </observationRange> </referenceRange> </observation > </component> <component> <observation moodCode="EVN" classCode="OBS"> <templateId root="216.840.1.460115.10..22.4.2" /> <id nullFlavor="NA" /> <code codeSystem="local" code="SPGRU" displayName="UA SPECIFIC GRAVITY" /> <statusCode code="completed" /> <effectiveTime value="" /> <value unit="" xsi:type= "PQ" value="1.015" /> <referenceRange> <observationRange> <text>1.015-1.025</text> </observationRange> </ referenceRange> </observation> </component> <component> <observation moodCode="EVN" classCode="OBS"> <templateId root= "16.840.1.394122.06.06.22.4.2" /> <id nullFlavor="NA" /> < code codeSystem="local" code="INGRID" displayName="UR PH" /> <statusCode code="completed" /> <effectiveTime value="315379649980" /> < value unit="" xsi:type="PQ" value="5.5" /> <referenceRange> <observationRange> <text>5.0-7.0</text> </ observationRange> </referenceRange> </observation> </ component> </organizer> </entry> <entry> <organizer moodCode="EVN" classCode="BATTERY"> <templateId root="16.840.1.226189.06.06.22.4.1" /> <id nullFlavor="NA" /> <code codeSystem="local" code="UAMICRO" displayName="UA MICROSCOPIC" /> <statusCode code="completed" /> < component> <observation moodCode="EVN" classCode="OBS"> < templateId root="216.840.1.464218.10..22.4.2" /> <id nullFlavor="NA " /> <code codeSystem="local" code="BACU" displayName="UA BACTERIA" /> <statusCode code="completed" /> <effectiveTime value= "817510986738" /> <value unit="" xsi:type="PQ" value="2+" /> < referenceRange> <observationRange> <text>NEGATIVE</text > </observationRange> </referenceRange> </observation > </component> <component> <observation moodCode="EVN" classCode="OBS"> <templateId root="16.840.1.999863.06.06.22.4.2" /> <id nullFlavor="NA" /> <code codeSystem="local" code="EPIU" displayName="UA EPITHELIAL CELLS" /> <statusCode code="completed" /> <effectiveTime value="" /> <value unit="epi/hpf" xsi:type="PQ" value="3+" /> <referenceRange> < observationRange> <text>0 - 1+</text> </observationRange > </referenceRange> </observation> </component> < component> <observation moodCode="EVN" classCode="OBS"> < templateId root="216.840.1.560322.06.06.22.4.2" /> <id nullFlavor="NA " /> <code codeSystem="local" code="HYALU" displayName="UA HYALINE CAST " /> <statusCode code="completed" /> <effectiveTime value= "" /> <value unit="cast/lpf" xsi:type="PQ" value="5-10" /> <referenceRange> <observationRange> <text>0 - 1</text> </observationRange> </referenceRange> </ observation> </component> <component> <observation moodCode= "EVN" classCode="OBS"> <templateId root="216.840.1.937534.06.06.22.4.2 " /> <id nullFlavor="NA" /> <code codeSystem="local" code= "RBCU" displayName="UA RBC" /> <statusCode code="completed" /> <effectiveTime value="" /> <value unit="rbc/hpf" xsi:type ="PQ" value="3-5" /> <referenceRange> <observationRange> <text>0 - 3</text> </observationRange> </ referenceRange> </observation> </component> <component> <observation moodCode="EVN" classCode="OBS"> <templateId root= "16.840.1.967703.10..4.2" /> <id nullFlavor="NA" /> < code codeSystem="local" code="UAVOL" displayName="UA VOLUME FOR EXAM" /> <statusCode code="completed" /> <effectiveTime value="848650593896" /> <value unit="mL" xsi:type="PQ" value="12.0" /> < referenceRange> <observationRange> <text>(12mL STD)</ text> </observationRange> </referenceRange> </ observation> </component> <component> <observation moodCode= "EVN" classCode="OBS"> <templateId root="10.03.840.1.248236.06.06.22.4.2 " /> <id nullFlavor="NA" /> <code codeSystem="local" code= "WBCU" displayName="UA WBC" /> <statusCode code="completed" /> <effectiveTime value="544923136327" /> <value unit="wbc/hpf" xsi:type ="PQ" value="2-5" /> <referenceRange> <observationRange> <text>0 - 5</text> </observationRange> </ referenceRange> </observation> </component> </organizer> </entry > <entry> <organizer moodCode="EVN" classCode="BATTERY"> <templateId root="10.03.840.1.249513.10...4.1" /> <id nullFlavor="NA" /> <code codeSystem="local" code="CBCD" displayName="CBC W/DIFF" /> <statusCode code ="completed" /> <component> <observation moodCode="EVN" classCode= "OBS"> <templateId root="10.03.840.1.970582.06.06.22.4.2" /> < id nullFlavor="NA" /> <code codeSystem="local" code="BA#" displayName= "BASOPHIL #" /> <statusCode code="completed" /> < effectiveTime value="064355920230" /> <value unit="k/cumm" xsi:type="PQ " value="0.0" /> <referenceRange> <observationRange> <text>0.0-0.2</text> </observationRange> </ referenceRange> </observation> </component> <component> <observation moodCode="EVN" classCode="OBS"> <templateId root= "216.840.1.398938.06.06.224.2" /> <id nullFlavor="NA" /> < code codeSystem="local" code="BA%" displayName="BASOPHIL %" /> <statusCode code="completed" /> <effectiveTime value="422751899438" /> <value unit="%" xsi:type="PQ" value="1" /> < referenceRange> <observationRange> <text>0-1</text> </observationRange> </referenceRange> </observation> </component> <component> <observation moodCode="EVN" classCode= "OBS"> <templateId root="16.840.1.575018.06.06.22.4.2" /> < id nullFlavor="NA" /> <code codeSystem="local" code="EO#" displayName= "EOSINOPHIL #" /> <statusCode code="completed" /> < effectiveTime value="085629749378" /> <value unit="k/cumm" xsi:type="PQ " value="0.1" /> <referenceRange> <observationRange> <text>0.1-0.5</text> </observationRange> </ referenceRange> </observation> </component> <component> <observation moodCode="EVN" classCode="OBS"> <templateId root= "16.840.1.016082.10.22.4.2" /> <id nullFlavor="NA" /> < code codeSystem="local" code="EO%" displayName="EOSINOPHIL %" /> <statusCode code="completed" /> <effectiveTime value="250871395163" /> <value unit="%" xsi:type="PQ" value="1" /> < interpretationCode codeSystem="local" code="*" /> <referenceRange> <observationRange> <text>2-4</text> </ observationRange> </referenceRange> </observation> </ component> <component> <observation moodCode="EVN" classCode="OBS"> <templateId root="10.03.840.1.309842.06.06.224.2" /> <id nullFlavor="NA" /> <code codeSystem="local" code="GR#" displayName= "GRANULOCYTE #" /> <statusCode code="completed" /> < effectiveTime value="672113823517" /> <value unit="k/cumm" xsi:type="PQ " value="4.7" /> <referenceRange> <observationRange> <text>2.0-9.0</text> </observationRange> </ referenceRange> </observation> </component> <component> <observation moodCode="EVN" classCode="OBS"> <templateId root= "16.840.1.022899.10.2022.4.2" /> <id nullFlavor="NA" /> < code codeSystem="local" code="GR%" displayName="GRANULOCYTE %" /> <statusCode code="completed" /> <effectiveTime value="207884332247 " /> <value unit="%" xsi:type="PQ" value="69" /> < referenceRange> <observationRange> <text>50-75</text> </observationRange> </referenceRange> </observation> </component> <component> <observation moodCode="EVN" classCode= "OBS"> <templateId root="216.840.1.496812.10.4.2" /> < id nullFlavor="NA" /> <code codeSystem="local" code="LY#" displayName= "LYMPHOCYTE #" /> <statusCode code="completed" /> < effectiveTime value="804082648955" /> <value unit="k/cumm" xsi:type="PQ " value="1.1" /> <referenceRange> <observationRange> <text>1.0-4.0</text> </observationRange> </ referenceRange> </observation> </component> <component> <observation moodCode="EVN" classCode="OBS"> <templateId root= "2.16.840.1.401219.104.2" /> <id nullFlavor="NA" /> < code codeSystem="local" code="LY%" displayName="LYMPHOCYTE %" /> <statusCode code="completed" /> <effectiveTime value="002408689959" /> <value unit="%" xsi:type="PQ" value="16" /> < interpretationCode codeSystem="local" code="*" /> <referenceRange> <observationRange> <text>20-30</text> </ observationRange> </referenceRange> </observation> </ component> <component> <observation moodCode="EVN" classCode="OBS"> <templateId root="2.16.840.1.410487.10.2022.4.2" /> <id nullFlavor="NA" /> <code codeSystem="local" code="MCH" displayName= "MEAN CELL HGB" /> <statusCode code="completed" /> < effectiveTime value="566075322287" /> <value unit="pg" xsi:type="PQ" value="23.6" /> <interpretationCode codeSystem="local" code="*" /> <referenceRange> <observationRange> <text>27.0- 33.0</text> </observationRange> </referenceRange> </ observation> </component> <component> <observation moodCode= "EVN" classCode="OBS"> <templateId root="840.1.763061.06.06.22.4.2 " /> <id nullFlavor="NA" /> <code codeSystem="local" code= "MCHC" displayName="MEAN CELL HGB CONCENTRATION" /> <statusCode code= "completed" /> <effectiveTime value="995610280644" /> <value unit="g/dL" xsi:type="PQ" value="30.8" /> <interpretationCode codeSystem="local" code="*" /> <referenceRange> < observationRange> <text>32.0-37.0</text> </ observationRange> </referenceRange> </observation> </ component> <component> <observation moodCode="EVN" classCode="OBS"> <templateId root="840.1.193894.10.2022.4.2" /> <id nullFlavor="NA" /> <code codeSystem="local" code="MCV" displayName= "MEAN CELL VOLUME" /> <statusCode code="completed" /> < effectiveTime value="" /> <value unit="fl" xsi:type="PQ" value="76.7" /> <interpretationCode codeSystem="local" code="*" /> <referenceRange> <observationRange> <text>80.0- 100.0</text> </observationRange> </referenceRange> </ observation> </component> <component> <observation moodCode= "EVN" classCode="OBS"> <templateId root="216.840.1.769447.10..22.4.2 " /> <id nullFlavor="NA" /> <code codeSystem="local" code="MO# " displayName="MONOCYTE #" /> <statusCode code="completed" /> <effectiveTime value="650516201388" /> <value unit="k/cumm" xsi:type= "PQ" value="0.9" /> <referenceRange> <observationRange> <text>0.1-1.0</text> </observationRange> </ referenceRange> </observation> </component> <component> <observation moodCode="EVN" classCode="OBS"> <templateId root= "16.840.1.427467.10..4.2" /> <id nullFlavor="NA" /> < code codeSystem="local" code="MO%" displayName="MONOCYTE %" /> <statusCode code="completed" /> <effectiveTime value="255543526301" /> <value unit="%" xsi:type="PQ" value="13" /> < interpretationCode codeSystem="local" code="*" /> <referenceRange> <observationRange> <text>4-6</text> </ observationRange> </referenceRange> </observation> </ component> <component> <observation moodCode="EVN" classCode="OBS"> <templateId root="216.840.1.037804....4.2" /> <id nullFlavor="NA" /> <code codeSystem="local" code="MPVT" displayName= "MEAN PLATELET VOLUME" /> <statusCode code="completed" /> < effectiveTime value="619921960061" /> <value unit="fl" xsi:type="PQ" value="8.8" /> <referenceRange> <observationRange> <text>8.5-10.9</text> </observationRange> </ referenceRange> </observation> </component> <component> <observation moodCode="EVN" classCode="OBS"> <templateId root= "2.16.840.1.072059.10..22.4.2" /> <id nullFlavor="NA" /> < code codeSystem="local" code="OVAL" displayName="OVALOCYTES" /> < statusCode code="completed" /> <effectiveTime value="028876749710" /> <value unit="" xsi:type="PQ" value="NOTED" /> <referenceRange > <observationRange> <text /> </ observationRange> </referenceRange> </observation> </ component> <component> <observation moodCode="EVN" classCode="OBS"> <templateId root="2.16.840.1.103943.10..22.4.2" /> <id nullFlavor="NA" /> <code codeSystem="local" code="RBC" displayName=" RED BLOOD CELL" /> <statusCode code="completed" /> < effectiveTime value="696385607333" /> <value unit="m/cumm" xsi:type="PQ " value="3.60" /> <interpretationCode codeSystem="local" code="*" /> <referenceRange> <observationRange> <text>4.00- 6.00</text> </observationRange> </referenceRange> </ observation> </component> <component> <observation moodCode= "EVN" classCode="OBS"> <templateId root="10.03.840.1.967398.10..22.4.2 " /> <id nullFlavor="NA" /> <code codeSystem="local" code="RDW " displayName="RED CELL DISTRIBUTION WIDTH" /> <statusCode code= "completed" /> <effectiveTime value="088508396725" /> <value unit="%" xsi:type="PQ" value="19.5" /> <interpretationCode codeSystem="local" code="*" /> <referenceRange> < observationRange> <text>11.0-15.6</text> </ observationRange> </referenceRange> </observation> </ component> <component> <observation moodCode="EVN" classCode="OBS"> <templateId root="840.1.292782.06.06.22.4.2" /> <id nullFlavor="NA" /> <code codeSystem="local" code="WBC" displayName= "WHITE BLOOD CELL" /> <statusCode code="completed" /> < effectiveTime value="687420914899" /> <value unit="k/cumm" xsi:type="PQ " value="6.9" /> <referenceRange> <observationRange> <text>5.0-10.0</text> </observationRange> </ referenceRange> </observation> </component> <component> <observation moodCode="EVN" classCode="OBS"> <templateId root= "10.03.840.1.069544.10..22.4.2" /> <id nullFlavor="NA" /> < code codeSystem="local" code="HGBT" displayName="HEMOGLOBIN" /> < statusCode code="completed" /> <effectiveTime value="200892222353" /> <value unit="gm/dL" xsi:type="PQ" value="8.5" /> < interpretationCode codeSystem="local" code="*" /> <referenceRange> <observationRange> <text>12.0-16.0</text> </ observationRange> </referenceRange> </observation> </ component> <component> <observation moodCode="EVN" classCode="OBS"> <templateId root="216.840.1.099318.06.06.22.4.2" /> <id nullFlavor="NA" /> <code codeSystem="local" code="HCTT" displayName= "HEMATOCRIT" /> <statusCode code="completed" /> < effectiveTime value="243597535709" /> <value unit="%" xsi:type="PQ " value="27.6" /> <interpretationCode codeSystem="local" code="*" /> <referenceRange> <observationRange> <text>37.0- 47.0</text> </observationRange> </referenceRange> </ observation> </component> <component> <observation moodCode= "EVN" classCode="OBS"> <templateId root="216.840.1.543687.06.06.22.4.2 " /> <id nullFlavor="NA" /> <code codeSystem="local" code= "PLTT" displayName="PLATELET COUNT" /> <statusCode code="completed" /> <effectiveTime value="411261904448" /> <value unit="k/cumm" xsi:type="PQ" value="331" /> <referenceRange> < observationRange> <text>150-400</text> </ observationRange> </referenceRange> </observation> </ component> </organizer> </entry> <entry> <organizer moodCode="EVN" classCode="BATTERY"> <templateId root="216.840.1.988281.06.06.22.4.1" /> <id nullFlavor="NA" /> <code codeSystem="local" code="METABC" displayName="METABOLIC PANEL, COMPREHN" /> <statusCode code="completed" /> <component> <observation moodCode="EVN" classCode="OBS"> < templateId root="840.1.198691.06.06.22.4.2" /> <id nullFlavor="NA " /> <code codeSystem="local" code="K" displayName="POTASSIUM" /> <statusCode code="completed" /> <effectiveTime value="087963175949 " /> <value unit="mmol/L" xsi:type="PQ" value="3.7" /> < referenceRange> <observationRange> <text>3.5-5.3</text> </observationRange> </referenceRange> </observation > </component> <component> <observation moodCode="EVN" classCode="OBS"> <templateId root="840.1.837416.06.06.22.4.2" /> <id nullFlavor="NA" /> <code codeSystem="local" code="eGFR" displayName="EST GFR (MDRD)" /> <statusCode code="completed" /> <effectiveTime value="644913438888" /> <value unit="mL/min" xsi:type ="PQ" value="> 60" /> <referenceRange> <observationRange > <text>> 59</text> </observationRange> </ referenceRange> </observation> </component> <component> <observation moodCode="EVN" classCode="OBS"> <templateId root= "10.03.840.1.010298.10..4.2" /> <id nullFlavor="NA" /> < code codeSystem="local" code="GAP" displayName="ANION GAP" /> < statusCode code="completed" /> <effectiveTime value="514681385572" /> <value unit="mmol/L" xsi:type="PQ" value="8" /> < referenceRange> <observationRange> <text>5-15</text> </observationRange> </referenceRange> </observation> </component> <component> <observation moodCode="EVN" classCode= "OBS"> <templateId root="216.840.1.127807.10.20.22.4.2" /> < id nullFlavor="NA" /> <code codeSystem="local" code="eCrCl" displayName ="EST CrCl (CG)" /> <statusCode code="completed" /> < effectiveTime value="880979803349" /> <value unit="mL/min" xsi:type="PQ " value="57" /> <interpretationCode codeSystem="local" code="*" /> <referenceRange> <observationRange> <text>> 59< /text> </observationRange> </referenceRange> </ observation> </component> <component> <observation moodCode= "EVN" classCode="OBS"> <templateId root="216.840.1.566935.10.20.22.4.2 " /> <id nullFlavor="NA" /> <code codeSystem="local" code="GLU " displayName="GLUCOSE" /> <statusCode code="completed" /> < effectiveTime value="805753624144" /> <value unit="mg/dL" xsi:type="PQ " value="114" /> <interpretationCode codeSystem="local" code="*" /> <referenceRange> <observationRange> <text>70-99</ text> </observationRange> </referenceRange> </ observation> </component> <component> <observation moodCode= "EVN" classCode="OBS"> <templateId root="216.840.1.304928.10..22.4.2 " /> <id nullFlavor="NA" /> <code codeSystem="local" code="CA " displayName="CALCIUM" /> <statusCode code="completed" /> < effectiveTime value="" /> <value unit="mg/dL" xsi:type="PQ " value="8.3" /> <interpretationCode codeSystem="local" code="*" /> <referenceRange> <observationRange> <text>8.5- 10.1</text> </observationRange> </referenceRange> </ observation> </component> <component> <observation moodCode= "EVN" classCode="OBS"> <templateId root="216.840.1.146714...4.2 " /> <id nullFlavor="NA" /> <code codeSystem="local" code="BUN " displayName="BLOOD UREA NITROGEN" /> <statusCode code="completed" /> <effectiveTime value="" /> <value unit="mg/dL" xsi:type="PQ" value="19" /> <referenceRange> < observationRange> <text>7-20</text> </observationRange> </referenceRange> </observation> </component> < component> <observation moodCode="EVN" classCode="OBS"> < templateId root="16.840.1.085507.10.20.22.4.2" /> <id nullFlavor="NA " /> <code codeSystem="local" code="CREAT" displayName="CREATININE" /> <statusCode code="completed" /> <effectiveTime value= "528924474384" /> <value unit="mg/dL" xsi:type="PQ" value="0.9" /> <referenceRange> <observationRange> <text>0.6-1.0< /text> </observationRange> </referenceRange> </ observation> </component> <component> <observation moodCode= "EVN" classCode="OBS"> <templateId root="216.840.1.944641.10..4.2 " /> <id nullFlavor="NA" /> <code codeSystem="local" code="NA " displayName="SODIUM" /> <statusCode code="completed" /> < effectiveTime value="148070161901" /> <value unit="mmol/L" xsi:type="PQ " value="135" /> <referenceRange> <observationRange> <text>135-148</text> </observationRange> </ referenceRange> </observation> </component> <component> <observation moodCode="EVN" classCode="OBS"> <templateId root= "10.03.840.1.322996.10..4.2" /> <id nullFlavor="NA" /> < code codeSystem="local" code="CL" displayName="CHLORIDE" /> < statusCode code="completed" /> <effectiveTime value="113678720186" /> <value unit="mmol/L" xsi:type="PQ" value="103" /> < referenceRange> <observationRange> <text>98-110</text> </observationRange> </referenceRange> </observation> </component> <component> <observation moodCode="EVN" classCode ="OBS"> <templateId root="10.03.840.1.811536...4.2" /> < id nullFlavor="NA" /> <code codeSystem="local" code="AST" displayName= "AST/SGOT" /> <statusCode code="completed" /> <effectiveTime value="198977326772" /> <value unit="Units/L" xsi:type="PQ" value="12" /> <referenceRange> <observationRange> <text>10 -37</text> </observationRange> </referenceRange> </ observation> </component> <component> <observation moodCode= "EVN" classCode="OBS"> <templateId root="16.840.1.426988.10...4.2 " /> <id nullFlavor="NA" /> <code codeSystem="local" code="ALT " displayName="ALT/SGPT" /> <statusCode code="completed" /> < effectiveTime value="804442313625" /> <value unit="Units/L" xsi:type= "PQ" value="16" /> <referenceRange> <observationRange> <text>< 66</text> </observationRange> </ referenceRange> </observation> </component> <component> <observation moodCode="EVN" classCode="OBS"> <templateId root= "10.03.840.1.837165.10..4.2" /> <id nullFlavor="NA" /> < code codeSystem="local" code="CO2" displayName="CARBON DIOXIDE" /> < statusCode code="completed" /> <effectiveTime value="116719081222" /> <value unit="mmol/L" xsi:type="PQ" value="24" /> < referenceRange> <observationRange> <text>21-32</text> </observationRange> </referenceRange> </observation> </component> <component> <observation moodCode="EVN" classCode= "OBS"> <templateId root="10.03.840.1.139154.10..22.4.2" /> < id nullFlavor="NA" /> <code codeSystem="local" code="TP" displayName= "TOTAL PROTEIN" /> <statusCode code="completed" /> < effectiveTime value="922672120368" /> <value unit="gm/dL" xsi:type="PQ " value="6.3" /> <interpretationCode codeSystem="local" code="*" /> <referenceRange> <observationRange> <text>6.4-8.2 </text> </observationRange> </referenceRange> </ observation> </component> <component> <observation moodCode= "EVN" classCode="OBS"> <templateId root="2.16.840.1.344241.10.20.22.4.2 " /> <id nullFlavor="NA" /> <code codeSystem="local" code="ALB " displayName="ALBUMIN" /> <statusCode code="completed" /> < effectiveTime value="137461798583" /> <value unit="gm/dL" xsi:type="PQ " value="2.7" /> <interpretationCode codeSystem="local" code="*" /> <referenceRange> <observationRange> <text>3.4-5.0 </text> </observationRange> </referenceRange> </ observation> </component> <component> <observation moodCode= "EVN" classCode="OBS"> <templateId root="216.840.1.388529.10.20.22.4.2 " /> <id nullFlavor="NA" /> <code codeSystem="local" code= "BILTOT" displayName="BILI TOTAL" /> <statusCode code="completed" /> <effectiveTime value="959677055429" /> <value unit="mg/dL" xsi: type="PQ" value="0.1" /> <referenceRange> <observationRange > <text>0.0-1.0</text> </observationRange> </ referenceRange> </observation> </component> <component> <observation moodCode="EVN" classCode="OBS"> <templateId root= "2.16.840.1.805254.10.20.22.4.2" /> <id nullFlavor="NA" /> < code codeSystem="local" code="ALKP" displayName="ALKALINE PHOSPHATASE TOTAL" /> <statusCode code="completed" /> <effectiveTime value= "978005250099" /> <value unit="IU/L" xsi:type="PQ" value="85" /> <referenceRange> <observationRange> <text>45-117</ text> </observationRange> </referenceRange> </ observation> </component> </organizer> </entry> <entry> <organizer moodCode="EVN" classCode="BATTERY"> <templateId root= "2.16.840.1.653775.10.20.22.4.1" /> <id nullFlavor="NA" /> <code codeSystem="local" code="TSH" displayName="THYROID STIM HORMONE (TSH)" /> < statusCode code="completed" /> <component> <observation moodCode= "EVN" classCode="OBS"> <templateId root="2.16.840.1.978070.10.20.22.4.2 " /> <id nullFlavor="NA" /> <code codeSystem="local" code="TSH " displayName="THYROID STIM HORMONE (TSH)" /> <statusCode code= "completed" /> <effectiveTime value="313380977266" /> <value unit="uIU/mL" xsi:type="PQ" value="1.18" /> <referenceRange> <observationRange> <text>0.34-4.82</text> </ observationRange> </referenceRange> </observation> </ component> </organizer> </entry> <entry> <organizer moodCode="EVN" classCode="BATTERY"> <templateId root="16.840.1.279732.10..4.1" /> <id nullFlavor="NA" /> <code codeSystem="local" code="ALC" displayName ="ALCOHOL (ETHANOL) SERUM" /> <statusCode code="completed" /> < component> <observation moodCode="EVN" classCode="OBS"> < templateId root="840.1.059296.06.06.22.4.2" /> <id nullFlavor="NA " /> <code codeSystem="local" code="ALC" displayName="ALCOHOL (ETHANOL ) SERUM" /> <statusCode code="completed" /> <effectiveTime value="367560552984" /> <value unit="mg/dL" xsi:type="PQ" value="< 10" /> <referenceRange> <observationRange> < text> < 10</text> </observationRange> </referenceRange> </observation> </component> </organizer> </entry> <entry> < organizer moodCode="EVN" classCode="BATTERY"> <templateId root= "10.03.840.1.784827.06.06.22.4.1" /> <id nullFlavor="NA" /> <code codeSystem="local" code="ACTMN" displayName="ACETAMINOPHEN (TYLENOL)" /> < statusCode code="completed" /> <component> <observation moodCode= "EVN" classCode="OBS"> <templateId root="10.03.840.1.079877.10.4.2 " /> <id nullFlavor="NA" /> <code codeSystem="local" code= "ACTMN" displayName="ACETAMINOPHEN (TYLENOL)" /> <statusCode code= "completed" /> <effectiveTime value="188640335791" /> <value unit="mcg/mL" xsi:type="PQ" value="< 2" /> <referenceRange> <observationRange> <text>10-30</text> </ observationRange> </referenceRange> </observation> </ component> </organizer> </entry> <entry> <organizer moodCode="EVN" classCode="BATTERY"> <templateId root="10.03.840.1.138888.10..4.1" /> <id nullFlavor="NA" /> <code codeSystem="local" code="SALI" displayName="SALICYLATE (ASPIRIN)" /> <statusCode code="completed" /> <component> <observation moodCode="EVN" classCode="OBS"> < templateId root="10.03.840.1.366877.06.06.22.4.2" /> <id nullFlavor="NA " /> <code codeSystem="local" code="SALINUM" displayName="SALICYLATE" / > <statusCode code="completed" /> <effectiveTime value= "074359848670" /> <value unit="mg/dL" xsi:type="PQ" value="< 2.8" / > <referenceRange> <observationRange> <text>2.8 -29.0</text> </observationRange> </referenceRange> </ observation> </component> </organizer> </entry> <entry> <organizer moodCode="EVN" classCode="BATTERY"> <templateId root= "10.03.840.1.548034.10.4.1" /> <id nullFlavor="NA" /> <code codeSystem="local" code="HDLPRO" displayName="LIPID PANEL" /> <statusCode code="completed" /> <component> <observation moodCode="EVN" classCode="OBS"> <templateId root="10.03.840.1.237454.06.06.22.4.2" /> <id nullFlavor="NA" /> <code codeSystem="local" code="CHOL/HDL " displayName="CHOLESTEROL/HDL RATIO" /> <statusCode code="completed" / > <effectiveTime value="726192785818" /> <value unit="" xsi: type="PQ" value="3.7" /> <referenceRange> <observationRange > <text> < 5.0</text> </observationRange> </ referenceRange> </observation> </component> <component> <observation moodCode="EVN" classCode="OBS"> <templateId root= "216.840.1.248567.06.06.22.4.2" /> <id nullFlavor="NA" /> < code codeSystem="local" code="LDLX" displayName="LDL CHOLESTEROL" /> < statusCode code="completed" /> <effectiveTime value="788218198221" /> <value unit="mg/dL" xsi:type="PQ" value="109" /> < interpretationCode codeSystem="local" code="*" /> <referenceRange> <observationRange> <text>< 100</text> </ observationRange> </referenceRange> </observation> </ component> <component> <observation moodCode="EVN" classCode="OBS"> <templateId root="216.840.1.512665.06.06.22.4.2" /> <id nullFlavor="NA" /> <code codeSystem="local" code="VLDL" displayName= "VLDL CHOLESTEROL" /> <statusCode code="completed" /> < effectiveTime value="148185815498" /> <value unit="mg/dL" xsi:type="PQ " value="19" /> <referenceRange> <observationRange> <text>< 30</text> </observationRange> </ referenceRange> </observation> </component> <component> <observation moodCode="EVN" classCode="OBS"> <templateId root= "216.840.1.002067.10...4.2" /> <id nullFlavor="NA" /> < code codeSystem="local" code="TRIG" displayName="TRIGLYCERIDES" /> < statusCode code="completed" /> <effectiveTime value="" /> <value unit="mg/dL" xsi:type="PQ" value="95" /> < referenceRange> <observationRange> <text>< 150</text > </observationRange> </referenceRange> </observation > </component> <component> <observation moodCode="EVN" classCode="OBS"> <templateId root="216.840.1.189905.10..4.2" /> <id nullFlavor="NA" /> <code codeSystem="local" code="CHOL" displayName="CHOLESTEROL" /> <statusCode code="completed" /> < effectiveTime value="" /> <value unit="mg/dL" xsi:type="PQ " value="175" /> <referenceRange> <observationRange> <text>< 200</text> </observationRange> </ referenceRange> </observation> </component> <component> <observation moodCode="EVN" classCode="OBS"> <templateId root= "216.840.1.929993.10..22.4.2" /> <id nullFlavor="NA" /> < code codeSystem="local" code="HDL" displayName="HDL CHOLESTEROL" /> < statusCode code="completed" /> <effectiveTime value="411644019690" /> <value unit="mg/dL" xsi:type="PQ" value="47" /> < referenceRange> <observationRange> <text>> 39</text> </observationRange> </referenceRange> </observation > </component> </organizer> </entry> <entry> <organizer moodCode= "EVN" classCode="BATTERY"> <templateId root="216.840.1.322818.10..22.4.1 " /> <id nullFlavor="NA" /> <code codeSystem="local" code="UA" displayName="URINALYSIS, ROUTINE" /> <statusCode code="completed" /> < component> <observation moodCode="EVN" classCode="OBS"> < templateId root="2.16.840.1.801972.10...4.2" /> <id nullFlavor="NA " /> <code codeSystem="local" code="LEUESU" displayName="UA LEUKOCYTE ESTERASE DIPSTICK" /> <statusCode code="completed" /> < effectiveTime value="828130067867" /> <value unit="" xsi:type="PQ" value="NEGATIVE" /> <referenceRange> <observationRange> <text>NEGATIVE</text> </observationRange> </ referenceRange> </observation> </component> <component> <observation moodCode="EVN" classCode="OBS"> <templateId root= "216.840.1.451474.10...4.2" /> <id nullFlavor="NA" /> < code codeSystem="local" code="NITRIU" displayName="UA NITRITE DIPSTICK" /> <statusCode code="completed" /> <effectiveTime value="469474993575 " /> <value unit="" xsi:type="PQ" value="NEGATIVE" /> < referenceRange> <observationRange> <text>NEGATIVE</text > </observationRange> </referenceRange> </observation > </component> <component> <observation moodCode="EVN" classCode="OBS"> <templateId root="16.840.1.445004.10..4.2" /> <id nullFlavor="NA" /> <code codeSystem="local" code="PROTEIU " displayName="UA PROTEIN DIPSTICK" /> <statusCode code="completed" /> <effectiveTime value="" /> <value unit="" xsi: type="PQ" value="NEGATIVE" /> <referenceRange> < observationRange> <text>NEGATIVE</text> </ observationRange> </referenceRange> </observation> </ component> <component> <observation moodCode="EVN" classCode="OBS"> <templateId root="10.03.840.1.549097.10..4.2" /> <id nullFlavor="NA" /> <code codeSystem="local" code="DGLUU" displayName= "UA GLUCOSE DIPSTICK" /> <statusCode code="completed" /> < effectiveTime value="" /> <value unit="" xsi:type="PQ" value="NEGATIVE" /> <referenceRange> <observationRange> <text>NEGATIVE</text> </observationRange> </ referenceRange> </observation> </component> <component> <observation moodCode="EVN" classCode="OBS"> <templateId root= "10.03.840.1.643924.10..4.2" /> <id nullFlavor="NA" /> < code codeSystem="local" code="KETONU" displayName="UA KETONE DIPSTICK" /> <statusCode code="completed" /> <effectiveTime value=" " /> <value unit="" xsi:type="PQ" value="NEGATIVE" /> < referenceRange> <observationRange> <text>NEGATIVE</text > </observationRange> </referenceRange> </observation > </component> <component> <observation moodCode="EVN" classCode="OBS"> <templateId root="216.840.1.134430.06.06.22.4.2" /> <id nullFlavor="NA" /> <code codeSystem="local" code="UROBILU " displayName="UA UROBILINOGEN DIPSTICK" /> <statusCode code="completed " /> <effectiveTime value="" /> <value unit="" xsi :type="PQ" value="NORMAL" /> <referenceRange> < observationRange> <text>NORMAL</text> </observationRange > </referenceRange> </observation> </component> < component> <observation moodCode="EVN" classCode="OBS"> < templateId root="216.840.1.207093.06.06.22.4.2" /> <id nullFlavor="NA " /> <code codeSystem="local" code="BILU" displayName="UA BILIRUBIN DIPSTICK" /> <statusCode code="completed" /> <effectiveTime value="" /> <value unit="" xsi:type="PQ" value="NEGATIVE" / > <referenceRange> <observationRange> <text> NEGATIVE</text> </observationRange> </referenceRange> </observation> </component> <component> <observation moodCode ="EVN" classCode="OBS"> <templateId root= "216.840.1.646784.06.06.22.4.2" /> <id nullFlavor="NA" /> < code codeSystem="local" code="ADAM" displayName="UA BLOOD DIPSTICK" /> < statusCode code="completed" /> <effectiveTime value="" /> <value unit="" xsi:type="PQ" value="NEGATIVE" /> < referenceRange> <observationRange> <text>NEGATIVE</text > </observationRange> </referenceRange> </observation > </component> <component> <observation moodCode="EVN" classCode="OBS"> <templateId root="10.03.840.1.957188.10...4.2" /> <id nullFlavor="NA" /> <code codeSystem="local" code="SPGRU" displayName="UA SPECIFIC GRAVITY" /> <statusCode code="completed" /> <effectiveTime value="457130670758" /> <value unit="" xsi:type= "PQ" value="1.009" /> <interpretationCode codeSystem="local" code="*" / > <referenceRange> <observationRange> <text> 1.015-1.025</text> </observationRange> </referenceRange> </observation> </component> <component> <observation moodCode="EVN" classCode="OBS"> <templateId root= "10.03.840.1.314848.06.06.22.4.2" /> <id nullFlavor="NA" /> < code codeSystem="local" code="INGRID" displayName="UR PH" /> <statusCode code="completed" /> <effectiveTime value="358548965262" /> < value unit="" xsi:type="PQ" value="6.5" /> <referenceRange> <observationRange> <text>5.0-7.0</text> </ observationRange> </referenceRange> </observation> </ component> </organizer> </entry> <entry> <organizer moodCode="EVN" classCode="BATTERY"> <templateId root="16.840.1.568376.10..22.4.1" /> <id nullFlavor="NA" /> <code codeSystem="local" code="DRUGAB" displayName="UR DRUGS OF ABUSE SCREEN" /> <statusCode code="completed" /> <component> <observation moodCode="EVN" classCode="OBS"> < templateId root="216.840.1.438593.10..22.4.2" /> <id nullFlavor="NA " /> <code codeSystem="local" code="AMPHU" displayName="UR AMPHETAMINES SCREEN" /> <statusCode code="completed" /> < effectiveTime value="467476913089" /> <value unit="" xsi:type="PQ" value="POS (>1000 ng/mL)" /> <referenceRange> < observationRange> <text>NEGATIVE</text> </ observationRange> </referenceRange> </observation> </ component> <component> <observation moodCode="EVN" classCode="OBS"> <templateId root="16.840.1.280786.10..4.2" /> <id nullFlavor="NA" /> <code codeSystem="local" code="BARBU" displayName= "UR BARBITURATE SCREEN" /> <statusCode code="completed" /> < effectiveTime value="903507507431" /> <value unit="" xsi:type="PQ" value="NEG (< 200 ng/mL)" /> <referenceRange> < observationRange> <text>NEGATIVE</text> </ observationRange> </referenceRange> </observation> </ component> <component> <observation moodCode="EVN" classCode="OBS"> <templateId root="216.840.1.453705.10..22.4.2" /> <id nullFlavor="NA" /> <code codeSystem="local" code="DAUCOMMENT" displayName="DRUGS OF ABUSE SCREEN COMMENT" /> <statusCode code= "completed" /> <effectiveTime value="" /> <value unit="" xsi:type="PQ" value="" /> <referenceRange> < observationRange> <text /> </observationRange> </referenceRange> </observation> </component> <component> <observation moodCode="EVN" classCode="OBS"> <templateId root= "216.840.1.736961.10...4.2" /> <id nullFlavor="NA" /> < code codeSystem="local" code="OPIU" displayName="UR OPIATES SCREEN" /> <statusCode code="completed" /> <effectiveTime value="" /> <value unit="" xsi:type="PQ" value="NEG (< 300 ng/mL)" /> <referenceRange> <observationRange> <text>NEGATIVE</ text> </observationRange> </referenceRange> </ observation> </component> <component> <observation moodCode= "EVN" classCode="OBS"> <templateId root="216.840.1.592876.10..4.2 " /> <id nullFlavor="NA" /> <code codeSystem="local" code= "PCPU" displayName="UR PHENCYCLIDINE (PCP) SCREEN" /> <statusCode code= "completed" /> <effectiveTime value="" /> <value unit="" xsi:type="PQ" value="NEG (< 25 ng/mL)" /> <referenceRange > <observationRange> <text>NEGATIVE</text> </ observationRange> </referenceRange> </observation> </ component> <component> <observation moodCode="EVN" classCode="OBS"> <templateId root="2.16.840.1.784415.10...4.2" /> <id nullFlavor="NA" /> <code codeSystem="local" code="THCU" displayName=" UR CANNABINOIDS (THC) SCREEN" /> <statusCode code="completed" /> <effectiveTime value="891075421728" /> <value unit="" xsi:type="PQ " value="POS (> 50 ng/mL)" /> <referenceRange> < observationRange> <text>NEGATIVE</text> </ observationRange> </referenceRange> </observation> </ component> <component> <observation moodCode="EVN" classCode="OBS"> <templateId root="2.16.840.1.873103.10..22.4.2" /> <id nullFlavor="NA" /> <code codeSystem="local" code="COCAU" displayName= "UR COCAINE METABOLITE SCREEN" /> <statusCode code="completed" /> <effectiveTime value="" /> <value unit="" xsi:type="PQ " value="NEG (< 300 ng/mL)" /> <referenceRange> < observationRange> <text>NEGATIVE</text> </ observationRange> </referenceRange> </observation> </ component> <component> <observation moodCode="EVN" classCode="OBS"> <templateId root="2.16.840.1.541791.10..22.4.2" /> <id nullFlavor="NA" /> <code codeSystem="local" code="METHU" displayName= "UR METHADONE SCREEN" /> <statusCode code="completed" /> < effectiveTime value="" /> <value unit="" xsi:type="PQ" value="NEG (< 300 ng/mL)" /> <referenceRange> < observationRange> <text>NEGATIVE</text> </ observationRange> </referenceRange> </observation> </ component> <component> <observation moodCode="EVN" classCode="OBS"> <templateId root="2.16.840.1.430708.10.20.22.4.2" /> <id nullFlavor="NA" /> <code codeSystem="local" code="BENZU" displayName= "UR BENZODIAZEPINE SCREEN" /> <statusCode code="completed" /> <effectiveTime value="727002407794" /> <value unit="" xsi:type="PQ" value="NEG (< 200 ng/mL)" /> <referenceRange> < observationRange> <text>NEGATIVE</text> </ observationRange> </referenceRange> </observation> </ component> </organizer> </entry> <entry> <organizer moodCode="EVN" classCode="BATTERY"> <templateId root="2.16.840.1.850998.10.20.22.4.1" /> <id nullFlavor="NA" /> <code codeSystem="local" code="MRSAS" displayName="MRSA SURVEILLANCE SCREEN" /> <statusCode code="completed" /> <component> <observation moodCode="EVN" classCode="OBS"> < templateId root="2.16.840.1.801806.10.20.22.4.2" /> <id nullFlavor="NA " /> <code codeSystem="local" code="MB" displayName="Microbiology" /> <statusCode code="completed" /> <effectiveTime value= "784512105514" /> <value xsi:type="ST" value="<pre><b>MRSA SURVEILLANCE SCREEN</b> See Below: PATIENT REPORTS "I THINK I MIGHT HAVE HAD STAFF BEFORE"RESULT CALLED TO MARLI BARAJAS BY YEFRI AT 1244, 03/20/17.MRSA SURVEILLANCE SCREEN(F) Cosme Date/Time: 03/19/2017 08:48 Irvin Date/Time: 03/20/2017 12:44SOURCE: ANTERIOR NARESSPEC DESC: CALL REPORT, RCT T [facility] CONTACT PRECAUTIONS SHOULD BE IMPLEMENTED 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)[facility] [place] [address]</pre>" /> <referenceRange> <observationRange> <text /> </observationRange> </referenceRange> </observation> </component> </organizer > </entry> <entry> <organizer moodCode="EVN" classCode="BATTERY"> < templateId root="2.16.840.1.457205.10..22.4.1" /> <id nullFlavor="NA" /> <code codeSystem="local" code="GLUMON" displayName="GLUCOSE (POC)" /> <statusCode code="completed" /> <component> <observation moodCode= "EVN" classCode="OBS"> <templateId root="2.16.840.1.704324.10..22.4.2 " /> <id nullFlavor="NA" /> <code codeSystem="local" code= "GLUMON" displayName="GLUCOSE (POC)" /> <statusCode code="completed" / > <effectiveTime value="905439356895" /> <value unit="mg/dL" xsi:type="PQ" value="143" /> <interpretationCode codeSystem="local" code="*" /> <referenceRange> <observationRange> <text>70-99</text> </observationRange> </referenceRange> </observation> </component> </organizer> </entry> <entry> < organizer moodCode="EVN" classCode="BATTERY"> <templateId root= "2.16.840.1.082896.10..22.4.1" /> <id nullFlavor="NA" /> <code codeSystem="local" code="GLUMON" displayName="GLUCOSE (POC)" /> < statusCode code="completed" /> <component> <observation moodCode= "EVN" classCode="OBS"> <templateId root="2.16.840.1.295725.10.20.22.4.2 " /> <id nullFlavor="NA" /> <code codeSystem="local" code= "GLUMON" displayName="GLUCOSE (POC)" /> <statusCode code="completed" / > <effectiveTime value="443013853467" /> <value unit="mg/dL" xsi:type="PQ" value="130" /> <interpretationCode codeSystem="local" code="*" /> <referenceRange> <observationRange> <text>70-99</text> </observationRange> </referenceRange> </observation> </component> </organizer> </entry> <entry> < organizer moodCode="EVN" classCode="BATTERY"> <templateId root= "2.16.840.1.815678.10..22.4.1" /> <id nullFlavor="NA" /> <code codeSystem="local" code="GLUMON" displayName="GLUCOSE (POC)" /> < statusCode code="completed" /> <component> <observation moodCode= "EVN" classCode="OBS"> <templateId root="2.16.840.1.064999.10.20.22.4.2 " /> <id nullFlavor="NA" /> <code codeSystem="local" code= "GLUMON" displayName="GLUCOSE (POC)" /> <statusCode code="completed" / > <effectiveTime value="451358372894" /> <value unit="mg/dL" xsi:type="PQ" value="169" /> <interpretationCode codeSystem="local" code="*" /> <referenceRange> <observationRange> <text>70-99</text> </observationRange> </referenceRange> </observation> </component> </organizer> </entry> <entry> < organizer moodCode="EVN" classCode="BATTERY"> <templateId root= "2.16.840.1.027915.10..22.4.1" /> <id nullFlavor="NA" /> <code codeSystem="local" code="CBCD" displayName="CBC W/DIFF" /> <statusCode code ="completed" /> <component> <observation moodCode="EVN" classCode= "OBS"> <templateId root="2.16.840.1.511439.10...4.2" /> < id nullFlavor="NA" /> <code codeSystem="local" code="EO#" displayName= "EOSINOPHIL #" /> <statusCode code="completed" /> < effectiveTime value="313519732405" /> <value unit="k/cumm" xsi:type="PQ " value="0.1" /> <referenceRange> <observationRange> <text>0.1-0.5</text> </observationRange> </ referenceRange> </observation> </component> <component> <observation moodCode="EVN" classCode="OBS"> <templateId root= "2.16.840.1.730924.10...4.2" /> <id nullFlavor="NA" /> < code codeSystem="local" code="EO%" displayName="EOSINOPHIL %" /> <statusCode code="completed" /> <effectiveTime value="657341588541" /> <value unit="%" xsi:type="PQ" value="1" /> < interpretationCode codeSystem="local" code="*" /> <referenceRange> <observationRange> <text>2-4</text> </ observationRange> </referenceRange> </observation> </ component> <component> <observation moodCode="EVN" classCode="OBS"> <templateId root="16.840.1.095458.10..4.2" /> <id nullFlavor="NA" /> <code codeSystem="local" code="GR#" displayName= "GRANULOCYTE #" /> <statusCode code="completed" /> < effectiveTime value="" /> <value unit="k/cumm" xsi:type="PQ " value="4.9" /> <referenceRange> <observationRange> <text>2.0-9.0</text> </observationRange> </ referenceRange> </observation> </component> <component> <observation moodCode="EVN" classCode="OBS"> <templateId root= "16.840.1.784417.06.06.22.4.2" /> <id nullFlavor="NA" /> < code codeSystem="local" code="GR%" displayName="GRANULOCYTE %" /> <statusCode code="completed" /> <effectiveTime value=" " /> <value unit="%" xsi:type="PQ" value="69" /> < referenceRange> <observationRange> <text>50-75</text> </observationRange> </referenceRange> </observation> </component> <component> <observation moodCode="EVN" classCode= "OBS"> <templateId root="16.840.1.419198.10.22.4.2" /> < id nullFlavor="NA" /> <code codeSystem="local" code="LY#" displayName= "LYMPHOCYTE #" /> <statusCode code="completed" /> < effectiveTime value="" /> <value unit="k/cumm" xsi:type="PQ " value="1.4" /> <referenceRange> <observationRange> <text>1.0-4.0</text> </observationRange> </ referenceRange> </observation> </component> <component> <observation moodCode="EVN" classCode="OBS"> <templateId root= "216.840.1.249327.10.20.22.4.2" /> <id nullFlavor="NA" /> < code codeSystem="local" code="LY%" displayName="LYMPHOCYTE %" /> <statusCode code="completed" /> <effectiveTime value="355011778204" /> <value unit="%" xsi:type="PQ" value="19" /> < interpretationCode codeSystem="local" code="*" /> <referenceRange> <observationRange> <text>20-30</text> </ observationRange> </referenceRange> </observation> </ component> <component> <observation moodCode="EVN" classCode="OBS"> <templateId root="16.840.1.899513.10..4.2" /> <id nullFlavor="NA" /> <code codeSystem="local" code="MCH" displayName= "MEAN CELL HGB" /> <statusCode code="completed" /> < effectiveTime value="161021319614" /> <value unit="pg" xsi:type="PQ" value="23.6" /> <interpretationCode codeSystem="local" code="*" /> <referenceRange> <observationRange> <text>27.0- 33.0</text> </observationRange> </referenceRange> </ observation> </component> <component> <observation moodCode= "EVN" classCode="OBS"> <templateId root="216.840.1.636923.10.2022.4.2 " /> <id nullFlavor="NA" /> <code codeSystem="local" code= "[facility]" displayName="MEAN CELL HGB CONCENTRATION" /> <statusCode code= "completed" /> <effectiveTime value="" /> <value unit="g/dL" xsi:type="PQ" value="31.4" /> <interpretationCode codeSystem="local" code="*" /> <referenceRange> < observationRange> <text>32.0-37.0</text> </ observationRange> </referenceRange> </observation> </ component> <component> <observation moodCode="EVN" classCode="OBS"> <templateId root="2.16.840.1.641540.10..4.2" /> <id nullFlavor="NA" /> <code codeSystem="local" code="MCV" displayName= "MEAN CELL VOLUME" /> <statusCode code="completed" /> < effectiveTime value="" /> <value unit="fl" xsi:type="PQ" value="75.2" /> <interpretationCode codeSystem="local" code="*" /> <referenceRange> <observationRange> <text>80.0- 100.0</text> </observationRange> </referenceRange> </ observation> </component> <component> <observation moodCode= "EVN" classCode="OBS"> <templateId root="216.840.1.701572.10.22.4.2 " /> <id nullFlavor="NA" /> <code codeSystem="local" code="MO# " displayName="MONOCYTE #" /> <statusCode code="completed" /> <effectiveTime value="" /> <value unit="k/cumm" xsi:type= "PQ" value="0.7" /> <referenceRange> <observationRange> <text>0.1-1.0</text> </observationRange> </ referenceRange> </observation> </component> <component> <observation moodCode="EVN" classCode="OBS"> <templateId root= "216.840.1.292518.10.2022.4.2" /> <id nullFlavor="NA" /> < code codeSystem="local" code="MO%" displayName="MONOCYTE %" /> <statusCode code="completed" /> <effectiveTime value="113478162796" /> <value unit="%" xsi:type="PQ" value="10" /> < interpretationCode codeSystem="local" code="*" /> <referenceRange> <observationRange> <text>4-6</text> </ observationRange> </referenceRange> </observation> </ component> <component> <observation moodCode="EVN" classCode="OBS"> <templateId root="840.1.886487.06.06.22.4.2" /> <id nullFlavor="NA" /> <code codeSystem="local" code="MPVT" displayName= "MEAN PLATELET VOLUME" /> <statusCode code="completed" /> < effectiveTime value="[id number]" /> <value unit="fl" xsi:type="PQ" value="8.9" /> <referenceRange> <observationRange> <text>8.5-10.9</text> </observationRange> </ referenceRange> </observation> </component> <component> <observation moodCode="EVN" classCode="OBS"> <templateId root= "10.03.840.1.560206.102022.4.2" /> <id nullFlavor="NA" /> < code codeSystem="local" code="OVAL" displayName="OVALOCYTES" /> < statusCode code="completed" /> <effectiveTime value="947035947061" /> <value unit="" xsi:type="PQ" value="NOTED" /> <referenceRange > <observationRange> <text /> </ observationRange> </referenceRange> </observation> </ component> <component> <observation moodCode="EVN" classCode="OBS"> <templateId root="2.16.840.1.737044.10...4.2" /> <id nullFlavor="NA" /> <code codeSystem="local" code="RBC" displayName=" RED BLOOD CELL" /> <statusCode code="completed" /> < effectiveTime value="" /> <value unit="m/cumm" xsi:type="PQ " value="4.11" /> <referenceRange> <observationRange> <text>4.00-6.00</text> </observationRange> </ referenceRange> </observation> </component> <component> <observation moodCode="EVN" classCode="OBS"> <templateId root= "216.840.1.195791...4.2" /> <id nullFlavor="NA" /> < code codeSystem="local" code="RDW" displayName="RED CELL DISTRIBUTION WIDTH" /> <statusCode code="completed" /> <effectiveTime value= "" /> <value unit="%" xsi:type="PQ" value="19.5" /> <interpretationCode codeSystem="local" code="*" /> < referenceRange> <observationRange> <text>11.0-15.6</text > </observationRange> </referenceRange> </observation > </component> <component> <observation moodCode="EVN" classCode="OBS"> <templateId root="216.840.1.577117.06.06.22.4.2" /> <id nullFlavor="NA" /> <code codeSystem="local" code="WBC" displayName="WHITE BLOOD CELL" /> <statusCode code="completed" /> <effectiveTime value="" /> <value unit="k/cumm" xsi: type="PQ" value="7.1" /> <referenceRange> <observationRange > <text>5.0-10.0</text> </observationRange> </ referenceRange> </observation> </component> <component> <observation moodCode="EVN" classCode="OBS"> <templateId root= "216.840.1.463274.06.06.22.4.2" /> <id nullFlavor="NA" /> < code codeSystem="local" code="HGBT" displayName="HEMOGLOBIN" /> < statusCode code="completed" /> <effectiveTime value="" /> <value unit="gm/dL" xsi:type="PQ" value="9.7" /> < interpretationCode codeSystem="local" code="*" /> <referenceRange> <observationRange> <text>12.0-16.0</text> </ observationRange> </referenceRange> </observation> </ component> <component> <observation moodCode="EVN" classCode="OBS"> <templateId root="216.840.1.933521.06.06.22.4.2" /> <id nullFlavor="NA" /> <code codeSystem="local" code="HCTT" displayName= "HEMATOCRIT" /> <statusCode code="completed" /> < effectiveTime value="" /> <value unit="%" xsi:type="PQ " value="30.9" /> <interpretationCode codeSystem="local" code="*" /> <referenceRange> <observationRange> <text>37.0- 47.0</text> </observationRange> </referenceRange> </ observation> </component> <component> <observation moodCode= "EVN" classCode="OBS"> <templateId root="16.840.1.073949.10.20.22.4.2 " /> <id nullFlavor="NA" /> <code codeSystem="local" code= "PLTT" displayName="PLATELET COUNT" /> <statusCode code="completed" /> <effectiveTime value="134262206201" /> <value unit="k/cumm" xsi:type="PQ" value="362" /> <referenceRange> < observationRange> <text>150-400</text> </ observationRange> </referenceRange> </observation> </ component> </organizer> </entry> <entry> <organizer moodCode="EVN" classCode="BATTERY"> <templateId root="216.840.1.964919.10..22.4.1" /> <id nullFlavor="NA" /> <code codeSystem="local" code="RENAL" displayName="RENAL FUNCTION PANEL" /> <statusCode code="completed" /> <component> <observation moodCode="EVN" classCode="OBS"> < templateId root="16.840.1.493081.10..22.4.2" /> <id nullFlavor="NA " /> <code codeSystem="local" code="K" displayName="POTASSIUM" /> <statusCode code="completed" /> <effectiveTime value="495503374728 " /> <value unit="mmol/L" xsi:type="PQ" value="4.9" /> < referenceRange> <observationRange> <text>3.5-5.3</text> </observationRange> </referenceRange> </observation > </component> <component> <observation moodCode="EVN" classCode="OBS"> <templateId root="2.16.840.1.046966.10..22.4.2" /> <id nullFlavor="NA" /> <code codeSystem="local" code="eGFR" displayName="EST GFR (MDRD)" /> <statusCode code="completed" /> <effectiveTime value="" /> <value unit="mL/min" xsi:type ="PQ" value="58" /> <interpretationCode codeSystem="local" code="*" /> <referenceRange> <observationRange> <text>&gt ; 59</text> </observationRange> </referenceRange> </ observation> </component> <component> <observation moodCode= "EVN" classCode="OBS"> <templateId root="216.840.1.621949.06.06.22.4.2 " /> <id nullFlavor="NA" /> <code codeSystem="local" code="GAP " displayName="ANION GAP" /> <statusCode code="completed" /> < effectiveTime value="" /> <value unit="mmol/L" xsi:type="PQ " value="9" /> <referenceRange> <observationRange> <text>5-15</text> </observationRange> </referenceRange > </observation> </component> <component> <observation moodCode="EVN" classCode="OBS"> <templateId root= "216.840.1.619355.10..22.4.2" /> <id nullFlavor="NA" /> < code codeSystem="local" code="eCrCl" displayName="EST CrCl (CG)" /> < statusCode code="completed" /> <effectiveTime value="" /> <value unit="mL/min" xsi:type="PQ" value="47" /> < interpretationCode codeSystem="local" code="*" /> <referenceRange> <observationRange> <text>> 59</text> </ observationRange> </referenceRange> </observation> </ component> <component> <observation moodCode="EVN" classCode="OBS"> <templateId root="10.03.840.1.049935.10.22.4.2" /> <id nullFlavor="NA" /> <code codeSystem="local" code="GLU" displayName= "GLUCOSE" /> <statusCode code="completed" /> <effectiveTime value="751020233765" /> <value unit="mg/dL" xsi:type="PQ" value="138" / > <interpretationCode codeSystem="local" code="*" /> < referenceRange> <observationRange> <text>70-99</text> </observationRange> </referenceRange> </observation> </component> <component> <observation moodCode="EVN" classCode= "OBS"> <templateId root="10.03.840.1.754336.06.06.22.4.2" /> < id nullFlavor="NA" /> <code codeSystem="local" code="CA" displayName= "CALCIUM" /> <statusCode code="completed" /> <effectiveTime value="271483709502" /> <value unit="mg/dL" xsi:type="PQ" value="8.5" / > <referenceRange> <observationRange> <text>8.5 -10.1</text> </observationRange> </referenceRange> </ observation> </component> <component> <observation moodCode= "EVN" classCode="OBS"> <templateId root="16.840.1.928826.10.2022.4.2 " /> <id nullFlavor="NA" /> <code codeSystem="local" code="BUN " displayName="BLOOD UREA NITROGEN" /> <statusCode code="completed" /> <effectiveTime value="262833111290" /> <value unit="mg/dL" xsi:type="PQ" value="15" /> <referenceRange> < observationRange> <text>7-20</text> </observationRange> </referenceRange> </observation> </component> < component> <observation moodCode="EVN" classCode="OBS"> < templateId root="2.16.840.1.458292.10..22.4.2" /> <id nullFlavor="NA " /> <code codeSystem="local" code="CREAT" displayName="CREATININE" /> <statusCode code="completed" /> <effectiveTime value= "881676157377" /> <value unit="mg/dL" xsi:type="PQ" value="1.0" /> <referenceRange> <observationRange> <text>0.6-1.0< /text> </observationRange> </referenceRange> </ observation> </component> <component> <observation moodCode= "EVN" classCode="OBS"> <templateId root="2.16.840.1.725396.10..22.4.2 " /> <id nullFlavor="NA" /> <code codeSystem="local" code="NA " displayName="SODIUM" /> <statusCode code="completed" /> < effectiveTime value="490165411814" /> <value unit="mmol/L" xsi:type="PQ " value="134" /> <interpretationCode codeSystem="local" code="*" /> <referenceRange> <observationRange> <text>135-148 </text> </observationRange> </referenceRange> </ observation> </component> <component> <observation moodCode= "EVN" classCode="OBS"> <templateId root="16.840.1.069767.10.20.22.4.2 " /> <id nullFlavor="NA" /> <code codeSystem="local" code="CL " displayName="CHLORIDE" /> <statusCode code="completed" /> < effectiveTime value="" /> <value unit="mmol/L" xsi:type="PQ " value="103" /> <referenceRange> <observationRange> <text>98-110</text> </observationRange> </ referenceRange> </observation> </component> <component> <observation moodCode="EVN" classCode="OBS"> <templateId root= "16.840.1.925868.10.22.4.2" /> <id nullFlavor="NA" /> < code codeSystem="local" code="CO2" displayName="CARBON DIOXIDE" /> < statusCode code="completed" /> <effectiveTime value="" /> <value unit="mmol/L" xsi:type="PQ" value="22" /> < referenceRange> <observationRange> <text>21-32</text> </observationRange> </referenceRange> </observation> </component> <component> <observation moodCode="EVN" classCode= "OBS"> <templateId root="10.03.840.1.978374.10..22.4.2" /> < id nullFlavor="NA" /> <code codeSystem="local" code="ALB" displayName= "ALBUMIN" /> <statusCode code="completed" /> <effectiveTime value="609762387167" /> <value unit="gm/dL" xsi:type="PQ" value="3.0" / > <interpretationCode codeSystem="local" code="*" /> < referenceRange> <observationRange> <text>3.4-5.0</text> </observationRange> </referenceRange> </observation > </component> <component> <observation moodCode="EVN" classCode="OBS"> <templateId root="16.840.1.644476.10.20.22.4.2" /> <id nullFlavor="NA" /> <code codeSystem="local" code="PHOS" displayName="PHOSPHORUS" /> <statusCode code="completed" /> < effectiveTime value="913564791894" /> <value unit="mg/dL" xsi:type="PQ " value="3.5" /> <referenceRange> <observationRange> <text>2.5-4.9</text> </observationRange> </ referenceRange> </observation> </component> </organizer> </entry > <entry> <organizer moodCode="EVN" classCode="BATTERY"> <templateId root="16.840.1.361183.10..22.4.1" /> <id nullFlavor="NA" /> <code codeSystem="local" code="MAG" displayName="MAGNESIUM" /> <statusCode code= "completed" /> <component> <observation moodCode="EVN" classCode= "OBS"> <templateId root="10.03.840.1.216869.10.22.4.2" /> < id nullFlavor="NA" /> <code codeSystem="local" code="MAG" displayName= "MAGNESIUM" /> <statusCode code="completed" /> <effectiveTime value="728491973119" /> <value unit="mg/dL" xsi:type="PQ" value="1.9" / > <referenceRange> <observationRange> <text>1.8 -2.4</text> </observationRange> </referenceRange> </ observation> </component> </organizer> </entry> <entry> <organizer moodCode="EVN" classCode="BATTERY"> <templateId root= "840.1.451650.06.06.22.4.1" /> <id nullFlavor="NA" /> <code codeSystem="local" code="GLUMON" displayName="GLUCOSE (POC)" /> < statusCode code="completed" /> <component> <observation moodCode= "EVN" classCode="OBS"> <templateId root="840.1.496898.06.06.22.4.2 " /> <id nullFlavor="NA" /> <code codeSystem="local" code= "GLUMON" displayName="GLUCOSE (POC)" /> <statusCode code="completed" / > <effectiveTime value="606580104926" /> <value unit="mg/dL" xsi:type="PQ" value="125" /> <interpretationCode codeSystem="local" code="*" /> <referenceRange> <observationRange> <text>70-99</text> </observationRange> </referenceRange> </observation> </component> </organizer> </entry> <entry> < organizer moodCode="EVN" classCode="BATTERY"> <templateId root= "840.1.627044.06.06.22.4.1" /> <id nullFlavor="NA" /> <code codeSystem="local" code="CBCD" displayName="CBC W/DIFF" /> <statusCode code ="completed" /> <component> <observation moodCode="EVN" classCode= "OBS"> <templateId root="840.1.587088.06.06.22.4.2" /> < id nullFlavor="NA" /> <code codeSystem="local" code="BA#" displayName= "BASOPHIL #" /> <statusCode code="completed" /> < effectiveTime value="258802002129" /> <value unit="k/cumm" xsi:type="PQ " value="0.0" /> <referenceRange> <observationRange> <text>0.0-0.2</text> </observationRange> </ referenceRange> </observation> </component> <component> <observation moodCode="EVN" classCode="OBS"> <templateId root= "216.840.1.159250.10..22.4.2" /> <id nullFlavor="NA" /> < code codeSystem="local" code="BA%" displayName="BASOPHIL %" /> <statusCode code="completed" /> <effectiveTime value="598951432710" /> <value unit="%" xsi:type="PQ" value="1" /> < referenceRange> <observationRange> <text>0-1</text> </observationRange> </referenceRange> </observation> </component> <component> <observation moodCode="EVN" classCode= "OBS"> <templateId root="216.840.1.495529.10..22.4.2" /> < id nullFlavor="NA" /> <code codeSystem="local" code="EO#" displayName= "EOSINOPHIL #" /> <statusCode code="completed" /> < effectiveTime value="167199428989" /> <value unit="k/cumm" xsi:type="PQ " value="0.1" /> <referenceRange> <observationRange> <text>0.1-0.5</text> </observationRange> </ referenceRange> </observation> </component> <component> <observation moodCode="EVN" classCode="OBS"> <templateId root= "16.840.1.413500.10.22.4.2" /> <id nullFlavor="NA" /> < code codeSystem="local" code="EO%" displayName="EOSINOPHIL %" /> <statusCode code="completed" /> <effectiveTime value="" /> <value unit="%" xsi:type="PQ" value="1" /> < interpretationCode codeSystem="local" code="*" /> <referenceRange> <observationRange> <text>2-4</text> </ observationRange> </referenceRange> </observation> </ component> <component> <observation moodCode="EVN" classCode="OBS"> <templateId root="10.03.840.1.053755.06.06.22.4.2" /> <id nullFlavor="NA" /> <code codeSystem="local" code="GR#" displayName= "GRANULOCYTE #" /> <statusCode code="completed" /> < effectiveTime value="" /> <value unit="k/cumm" xsi:type="PQ " value="5.4" /> <referenceRange> <observationRange> <text>2.0-9.0</text> </observationRange> </ referenceRange> </observation> </component> <component> <observation moodCode="EVN" classCode="OBS"> <templateId root= "10.03.840.1.526593.10.2022.4.2" /> <id nullFlavor="NA" /> < code codeSystem="local" code="GR%" displayName="GRANULOCYTE %" /> <statusCode code="completed" /> <effectiveTime value=" " /> <value unit="%" xsi:type="PQ" value="74" /> < referenceRange> <observationRange> <text>50-75</text> </observationRange> </referenceRange> </observation> </component> <component> <observation moodCode="EVN" classCode= "OBS"> <templateId root="10.03.840.1.572097.10.20.22.4.2" /> < id nullFlavor="NA" /> <code codeSystem="local" code="LY#" displayName= "LYMPHOCYTE #" /> <statusCode code="completed" /> < effectiveTime value="418312217020" /> <value unit="k/cumm" xsi:type="PQ " value="1.2" /> <referenceRange> <observationRange> <text>1.0-4.0</text> </observationRange> </ referenceRange> </observation> </component> <component> <observation moodCode="EVN" classCode="OBS"> <templateId root= "10.03.840.1.613777.06.06.22.4.2" /> <id nullFlavor="NA" /> < code codeSystem="local" code="LY%" displayName="LYMPHOCYTE %" /> <statusCode code="completed" /> <effectiveTime value="139793731292" /> <value unit="%" xsi:type="PQ" value="17" /> < interpretationCode codeSystem="local" code="*" /> <referenceRange> <observationRange> <text>20-30</text> </ observationRange> </referenceRange> </observation> </ component> <component> <observation moodCode="EVN" classCode="OBS"> <templateId root="10.03.840.1.821842.10.2022.4.2" /> <id nullFlavor="NA" /> <code codeSystem="local" code="MCH" displayName= "MEAN CELL HGB" /> <statusCode code="completed" /> < effectiveTime value="053612118393" /> <value unit="pg" xsi:type="PQ" value="23.5" /> <interpretationCode codeSystem="local" code="*" /> <referenceRange> <observationRange> <text>27.0- 33.0</text> </observationRange> </referenceRange> </ observation> </component> <component> <observation moodCode= "EVN" classCode="OBS"> <templateId root="2.16.840.1.566541.10..22.4.2 " /> <id nullFlavor="NA" /> <code codeSystem="local" code= "[facility]" displayName="MEAN CELL HGB CONCENTRATION" /> <statusCode code= "completed" /> <effectiveTime value="695973530612" /> <value unit="g/dL" xsi:type="PQ" value="30.8" /> <interpretationCode codeSystem="local" code="*" /> <referenceRange> < observationRange> <text>32.0-37.0</text> </ observationRange> </referenceRange> </observation> </ component> <component> <observation moodCode="EVN" classCode="OBS"> <templateId root="216.840.1.235702.10..22.4.2" /> <id nullFlavor="NA" /> <code codeSystem="local" code="MCV" displayName= "MEAN CELL VOLUME" /> <statusCode code="completed" /> < effectiveTime value="" /> <value unit="fl" xsi:type="PQ" value="76.3" /> <interpretationCode codeSystem="local" code="*" /> <referenceRange> <observationRange> <text>80.0- 100.0</text> </observationRange> </referenceRange> </ observation> </component> <component> <observation moodCode= "EVN" classCode="OBS"> <templateId root="216.840.1.835750.10.22.4.2 " /> <id nullFlavor="NA" /> <code codeSystem="local" code="MO# " displayName="MONOCYTE #" /> <statusCode code="completed" /> <effectiveTime value="" /> <value unit="k/cumm" xsi:type= "PQ" value="0.5" /> <referenceRange> <observationRange> <text>0.1-1.0</text> </observationRange> </ referenceRange> </observation> </component> <component> <observation moodCode="EVN" classCode="OBS"> <templateId root= "2.840.1.794289.06.06.22.4.2" /> <id nullFlavor="NA" /> < code codeSystem="local" code="MO%" displayName="MONOCYTE %" /> <statusCode code="completed" /> <effectiveTime value="" /> <value unit="%" xsi:type="PQ" value="7" /> < interpretationCode codeSystem="local" code="*" /> <referenceRange> <observationRange> <text>4-6</text> </ observationRange> </referenceRange> </observation> </ component> <component> <observation moodCode="EVN" classCode="OBS"> <templateId root="216.840.1.956230.22.4.2" /> <id nullFlavor="NA" /> <code codeSystem="local" code="MPVT" displayName= "MEAN PLATELET VOLUME" /> <statusCode code="completed" /> < effectiveTime value="" /> <value unit="fl" xsi:type="PQ" value="8.7" /> <referenceRange> <observationRange> <text>8.5-10.9</text> </observationRange> </ referenceRange> </observation> </component> <component> <observation moodCode="EVN" classCode="OBS"> <templateId root= "216.840.1.845163.22.4.2" /> <id nullFlavor="NA" /> < code codeSystem="local" code="RBC" displayName="RED BLOOD CELL" /> < statusCode code="completed" /> <effectiveTime value="" /> <value unit="m/cumm" xsi:type="PQ" value="4.17" /> < referenceRange> <observationRange> <text>4.00-6.00</text > </observationRange> </referenceRange> </observation > </component> <component> <observation moodCode="EVN" classCode="OBS"> <templateId root="216.840.1.221152.06.06.22.4.2" /> <id nullFlavor="NA" /> <code codeSystem="local" code="RDW" displayName="RED CELL DISTRIBUTION WIDTH" /> <statusCode code= "completed" /> <effectiveTime value="" /> <value unit="%" xsi:type="PQ" value="19.4" /> <interpretationCode codeSystem="local" code="*" /> <referenceRange> < observationRange> <text>11.0-15.6</text> </ observationRange> </referenceRange> </observation> </ component> <component> <observation moodCode="EVN" classCode="OBS"> <templateId root="216.840.1.800673.10.2022.4.2" /> <id nullFlavor="NA" /> <code codeSystem="local" code="WBC" displayName= "WHITE BLOOD CELL" /> <statusCode code="completed" /> < effectiveTime value="583378098542" /> <value unit="k/cumm" xsi:type="PQ " value="7.3" /> <referenceRange> <observationRange> <text>5.0-10.0</text> </observationRange> </ referenceRange> </observation> </component> <component> <observation moodCode="EVN" classCode="OBS"> <templateId root= "216.840.1.801374.06.06.22.4.2" /> <id nullFlavor="NA" /> < code codeSystem="local" code="HGBT" displayName="HEMOGLOBIN" /> < statusCode code="completed" /> <effectiveTime value="398316834347" /> <value unit="gm/dL" xsi:type="PQ" value="9.8" /> < interpretationCode codeSystem="local" code="*" /> <referenceRange> <observationRange> <text>12.0-16.0</text> </ observationRange> </referenceRange> </observation> </ component> <component> <observation moodCode="EVN" classCode="OBS"> <templateId root="10.03.840.1.813497.22.4.2" /> <id nullFlavor="NA" /> <code codeSystem="local" code="HCTT" displayName= "HEMATOCRIT" /> <statusCode code="completed" /> < effectiveTime value="237243540219" /> <value unit="%" xsi:type="PQ " value="31.8" /> <interpretationCode codeSystem="local" code="*" /> <referenceRange> <observationRange> <text>37.0- 47.0</text> </observationRange> </referenceRange> </ observation> </component> <component> <observation moodCode= "EVN" classCode="OBS"> <templateId root="16.840.1.026742.1022.4.2 " /> <id nullFlavor="NA" /> <code codeSystem="local" code= "PLTT" displayName="PLATELET COUNT" /> <statusCode code="completed" /> <effectiveTime value="" /> <value unit="k/cumm" xsi:type="PQ" value="361" /> <referenceRange> < observationRange> <text>150-400</text> </ observationRange> </referenceRange> </observation> </ component> </organizer> </entry> <entry> <organizer moodCode="EVN" classCode="BATTERY"> <templateId root="10.03.840.1.166040.10..4.1" /> <id nullFlavor="NA" /> <code codeSystem="local" code="MORPH" displayName="MORPHOLOGY" /> <statusCode code="completed" /> <component > <observation moodCode="EVN" classCode="OBS"> <templateId root= "10.03.840.1.907016.10.4.2" /> <id nullFlavor="NA" /> < code codeSystem="local" code="RMORPH" displayName="RBC MORPH" /> < statusCode code="completed" /> <effectiveTime value="835732251397" /> <value unit="" xsi:type="PQ" value="NOTED" /> <referenceRange > <observationRange> <text /> </ observationRange> </referenceRange> </observation> </ component> </organizer> </entry> <entry> <organizer moodCode="EVN" classCode="BATTERY"> <templateId root="216.840.1.134169.10..22.4.1" /> <id nullFlavor="NA" /> <code codeSystem="local" code="METABC" displayName="METABOLIC PANEL, COMPREHN" /> <statusCode code="completed" /> <component> <observation moodCode="EVN" classCode="OBS"> < templateId root="216.840.1.823070.10..22.4.2" /> <id nullFlavor="NA " /> <code codeSystem="local" code="K" displayName="POTASSIUM" /> <statusCode code="completed" /> <effectiveTime value="923779150067 " /> <value unit="mmol/L" xsi:type="PQ" value="4.4" /> < referenceRange> <observationRange> <text>3.5-5.3</text> </observationRange> </referenceRange> </observation > </component> <component> <observation moodCode="EVN" classCode="OBS"> <templateId root="216.840.1.656282.10..22.4.2" /> <id nullFlavor="NA" /> <code codeSystem="local" code="eGFR" displayName="EST GFR (MDRD)" /> <statusCode code="completed" /> <effectiveTime value="983687103010" /> <value unit="mL/min" xsi:type ="PQ" value="58" /> <interpretationCode codeSystem="local" code="*" /> <referenceRange> <observationRange> <text>&gt ; 59</text> </observationRange> </referenceRange> </ observation> </component> <component> <observation moodCode= "EVN" classCode="OBS"> <templateId root="16.840.1.631510.10..22.4.2 " /> <id nullFlavor="NA" /> <code codeSystem="local" code="GAP " displayName="ANION GAP" /> <statusCode code="completed" /> < effectiveTime value="055833761433" /> <value unit="mmol/L" xsi:type="PQ " value="9" /> <referenceRange> <observationRange> <text>5-15</text> </observationRange> </referenceRange > </observation> </component> <component> <observation moodCode="EVN" classCode="OBS"> <templateId root= "10.03.840.1.974754.10.4.2" /> <id nullFlavor="NA" /> < code codeSystem="local" code="eCrCl" displayName="EST CrCl (CG)" /> < statusCode code="completed" /> <effectiveTime value="425556371558" /> <value unit="mL/min" xsi:type="PQ" value="54" /> < interpretationCode codeSystem="local" code="*" /> <referenceRange> <observationRange> <text>> 59</text> </ observationRange> </referenceRange> </observation> </ component> <component> <observation moodCode="EVN" classCode="OBS"> <templateId root="10.03.840.1.943226.10.22.4.2" /> <id nullFlavor="NA" /> <code codeSystem="local" code="GLU" displayName= "GLUCOSE" /> <statusCode code="completed" /> <effectiveTime value="843601408871" /> <value unit="mg/dL" xsi:type="PQ" value="138" / > <interpretationCode codeSystem="local" code="*" /> < referenceRange> <observationRange> <text>70-99</text> </observationRange> </referenceRange> </observation> </component> <component> <observation moodCode="EVN" classCode= "OBS"> <templateId root="16.840.1.567617.10.20.22.4.2" /> < id nullFlavor="NA" /> <code codeSystem="local" code="CA" displayName= "CALCIUM" /> <statusCode code="completed" /> <effectiveTime value="302053729348" /> <value unit="mg/dL" xsi:type="PQ" value="9.4" / > <referenceRange> <observationRange> <text>8.5 -10.1</text> </observationRange> </referenceRange> </ observation> </component> <component> <observation moodCode= "EVN" classCode="OBS"> <templateId root="10.03.840.1.620401.10..22.4.2 " /> <id nullFlavor="NA" /> <code codeSystem="local" code="BUN " displayName="BLOOD UREA NITROGEN" /> <statusCode code="completed" /> <effectiveTime value="944308178777" /> <value unit="mg/dL" xsi:type="PQ" value="39" /> <interpretationCode codeSystem="local" code ="*" /> <referenceRange> <observationRange> < text>7-20</text> </observationRange> </referenceRange> </observation> </component> <component> <observation moodCode="EVN" classCode="OBS"> <templateId root= "10.03.840.1.835831.10.20.22.4.2" /> <id nullFlavor="NA" /> < code codeSystem="local" code="CREAT" displayName="CREATININE" /> < statusCode code="completed" /> <effectiveTime value="388960973511" /> <value unit="mg/dL" xsi:type="PQ" value="1.0" /> < referenceRange> <observationRange> <text>0.6-1.0</text> </observationRange> </referenceRange> </observation > </component> <component> <observation moodCode="EVN" classCode="OBS"> <templateId root="16.840.1.299030.10...4.2" /> <id nullFlavor="NA" /> <code codeSystem="local" code="NA" displayName="SODIUM" /> <statusCode code="completed" /> < effectiveTime value="326540091873" /> <value unit="mmol/L" xsi:type="PQ " value="133" /> <interpretationCode codeSystem="local" code="*" /> <referenceRange> <observationRange> <text>135-148 </text> </observationRange> </referenceRange> </ observation> </component> <component> <observation moodCode= "EVN" classCode="OBS"> <templateId root="16.840.1.602459.10...4.2 " /> <id nullFlavor="NA" /> <code codeSystem="local" code="CL " displayName="CHLORIDE" /> <statusCode code="completed" /> < effectiveTime value="762605397510" /> <value unit="mmol/L" xsi:type="PQ " value="100" /> <referenceRange> <observationRange> <text>98-110</text> </observationRange> </ referenceRange> </observation> </component> <component> <observation moodCode="EVN" classCode="OBS"> <templateId root= "10.03.840.1.210913...22.4.2" /> <id nullFlavor="NA" /> < code codeSystem="local" code="AST" displayName="AST/SGOT" /> < statusCode code="completed" /> <effectiveTime value="164244347519" /> <value unit="Units/L" xsi:type="PQ" value="20" /> < referenceRange> <observationRange> <text>10-37</text> </observationRange> </referenceRange> </observation> </component> <component> <observation moodCode="EVN" classCode= "OBS"> <templateId root="2.16.840.1.315330....4.2" /> < id nullFlavor="NA" /> <code codeSystem="local" code="ALT" displayName= "ALT/SGPT" /> <statusCode code="completed" /> <effectiveTime value="368863523709" /> <value unit="Units/L" xsi:type="PQ" value="29" /> <referenceRange> <observationRange> <text>& lt; 66</text> </observationRange> </referenceRange> < /observation> </component> <component> <observation moodCode= "EVN" classCode="OBS"> <templateId root="2.16.840.1.756163.10...4.2 " /> <id nullFlavor="NA" /> <code codeSystem="local" code="CO2 " displayName="CARBON DIOXIDE" /> <statusCode code="completed" /> <effectiveTime value="544722442609" /> <value unit="mmol/L" xsi: type="PQ" value="24" /> <referenceRange> <observationRange> <text>21-32</text> </observationRange> </ referenceRange> </observation> </component> <component> <observation moodCode="EVN" classCode="OBS"> <templateId root= "10.03.840.1.095965.10.20.22.4.2" /> <id nullFlavor="NA" /> < code codeSystem="local" code="TP" displayName="TOTAL PROTEIN" /> < statusCode code="completed" /> <effectiveTime value="376452990702" /> <value unit="gm/dL" xsi:type="PQ" value="7.5" /> < referenceRange> <observationRange> <text>6.4-8.2</text> </observationRange> </referenceRange> </observation > </component> <component> <observation moodCode="EVN" classCode="OBS"> <templateId root="10.03.840.1.583460.10.22.4.2" /> <id nullFlavor="NA" /> <code codeSystem="local" code="ALB" displayName="ALBUMIN" /> <statusCode code="completed" /> < effectiveTime value="837913814285" /> <value unit="gm/dL" xsi:type="PQ " value="3.4" /> <referenceRange> <observationRange> <text>3.4-5.0</text> </observationRange> </ referenceRange> </observation> </component> <component> <observation moodCode="EVN" classCode="OBS"> <templateId root= "10.03.840.1.412530.10.20.22.4.2" /> <id nullFlavor="NA" /> < code codeSystem="local" code="BILTOT" displayName="BILI TOTAL" /> < statusCode code="completed" /> <effectiveTime value="340264732462" /> <value unit="mg/dL" xsi:type="PQ" value="< 0.1" /> < referenceRange> <observationRange> <text>0.0-1.0</text> </observationRange> </referenceRange> </observation > </component> <component> <observation moodCode="EVN" classCode="OBS"> <templateId root="216.840.1.444470.10.20.22.4.2" /> <id nullFlavor="NA" /> <code codeSystem="local" code="ALKP" displayName="ALKALINE PHOSPHATASE TOTAL" /> <statusCode code="completed " /> <effectiveTime value="969311461117" /> <value unit="IU/L " xsi:type="PQ" value="100" /> <referenceRange> < observationRange> <text>45-117</text> </observationRange > </referenceRange> </observation> </component> </ organizer> </entry> <entry> <organizer moodCode="EVN" classCode="BATTERY"> <templateId root="216.840.1.285573.10..22.4.1" /> <id nullFlavor= "NA" /> <code codeSystem="local" code="TROPI" displayName="TROPONIN I" /> <statusCode code="completed" /> <component> <observation moodCode="EVN" classCode="OBS"> <templateId root= "216.840.1.587586.10.20.22.4.2" /> <id nullFlavor="NA" /> < code codeSystem="local" code="TROPI" displayName="TROPONIN I" /> < statusCode code="completed" /> <effectiveTime value="273089817380" /> <value unit="ng/mL" xsi:type="PQ" value="< 0.02" /> < referenceRange> <observationRange> <text>< 0.07</text > </observationRange> </referenceRange> </observation > </component> </organizer> </entry> <entry> <organizer moodCode= "EVN" classCode="BATTERY"> <templateId root="840.1.334625.06.06.22.4.1 " /> <id nullFlavor="NA" /> <code codeSystem="local" code="DIMER" displayName="D-DIMER QUANT" /> <statusCode code="completed" /> < component> <observation moodCode="EVN" classCode="OBS"> < templateId root="840.1.996829.06.06.224.2" /> <id nullFlavor="NA " /> <code codeSystem="local" code="DIMER" displayName="D-DIMER QUANT" /> <statusCode code="completed" /> <effectiveTime value= "332910571845" /> <value unit="ng/mL" xsi:type="PQ" value="934" /> <interpretationCode codeSystem="local" code="*" /> < referenceRange> <observationRange> <text>< 612</text > </observationRange> </referenceRange> </observation > </component> </organizer> </entry> <entry> <organizer moodCode= "EVN" classCode="BATTERY"> <templateId root="840.1.259162.06.06.22.4.1 " /> <id nullFlavor="NA" /> <code codeSystem="local" code="iCHEM8" displayName="CHEM/HEM PROFILE-BEDSIDE" /> <statusCode code="completed" /> <component> <observation moodCode="EVN" classCode="OBS"> < templateId root="840.1.348383.10.4.2" /> <id nullFlavor="NA " /> <code codeSystem="local" code="K" displayName="POTASSIUM" /> <statusCode code="completed" /> <effectiveTime value=" " /> <value unit="mmol/L" xsi:type="PQ" value="3.7" /> < referenceRange> <observationRange> <text>3.5-5.3</text> </observationRange> </referenceRange> </observation > </component> <component> <observation moodCode="EVN" classCode="OBS"> <templateId root="16.840.1.119376.10..22.4.2" /> <id nullFlavor="NA" /> <code codeSystem="local" code="CMETHOD " displayName="METHOD" /> <statusCode code="completed" /> < effectiveTime value="" /> <value unit="" xsi:type="PQ" value="Bedside" /> <referenceRange> <observationRange> <text /> </observationRange> </referenceRange> </observation> </component> <component> <observation moodCode="EVN" classCode="OBS"> <templateId root= "16.840.1.525682.10..22.4.2" /> <id nullFlavor="NA" /> < code codeSystem="local" code="GAP" displayName="ANION GAP" /> < statusCode code="completed" /> <effectiveTime value="" /> <value unit="mmol/L" xsi:type="PQ" value="21" /> < interpretationCode codeSystem="local" code="*" /> <referenceRange> <observationRange> <text>10-20</text> </ observationRange> </referenceRange> </observation> </ component> <component> <observation moodCode="EVN" classCode="OBS"> <templateId root="10.03.840.1.880816.10..22.4.2" /> <id nullFlavor="NA" /> <code codeSystem="local" code="HMETHOD" displayName= "METHOD" /> <statusCode code="completed" /> <effectiveTime value="" /> <value unit="" xsi:type="PQ" value="Bedside" / > <referenceRange> <observationRange> <text /> </observationRange> </referenceRange> </observation > </component> <component> <observation moodCode="EVN" classCode="OBS"> <templateId root="216.840.1.775950...4.2" /> <id nullFlavor="NA" /> <code codeSystem="local" code="GLU" displayName="GLUCOSE" /> <statusCode code="completed" /> < effectiveTime value="" /> <value unit="mg/dL" xsi:type="PQ " value="101" /> <interpretationCode codeSystem="local" code="*" /> <referenceRange> <observationRange> <text>70-99</ text> </observationRange> </referenceRange> </ observation> </component> <component> <observation moodCode= "EVN" classCode="OBS"> <templateId root="216.840.1.213051.06.06.22.4.2 " /> <id nullFlavor="NA" /> <code codeSystem="local" code="BUN " displayName="BLOOD UREA NITROGEN" /> <statusCode code="completed" /> <effectiveTime value="" /> <value unit="mg/dL" xsi:type="PQ" value="17" /> <referenceRange> < observationRange> <text>7-20</text> </observationRange> </referenceRange> </observation> </component> < component> <observation moodCode="EVN" classCode="OBS"> < templateId root="16.840.1.834080.10.22.4.2" /> <id nullFlavor="NA " /> <code codeSystem="local" code="CREAT" displayName="CREATININE" /> <statusCode code="completed" /> <effectiveTime value= "" /> <value unit="mg/dL" xsi:type="PQ" value="0.7" /> <referenceRange> <observationRange> <text>0.6-1.0< /text> </observationRange> </referenceRange> </ observation> </component> <component> <observation moodCode= "EVN" classCode="OBS"> <templateId root="10.03.840.1.915298...4.2 " /> <id nullFlavor="NA" /> <code codeSystem="local" code= "HGBT" displayName="HEMOGLOBIN" /> <statusCode code="completed" /> <effectiveTime value="" /> <value unit="gm/dL" xsi: type="PQ" value="9.5" /> <interpretationCode codeSystem="local" code="* " /> <referenceRange> <observationRange> <text> 12.0-16.0</text> </observationRange> </referenceRange> </observation> </component> <component> <observation moodCode="EVN" classCode="OBS"> <templateId root= "10.03.840.1.955520.10.22.4.2" /> <id nullFlavor="NA" /> < code codeSystem="local" code="HCTT" displayName="HEMATOCRIT" /> < statusCode code="completed" /> <effectiveTime value="" /> <value unit="%" xsi:type="PQ" value="28.0" /> < interpretationCode codeSystem="local" code="*" /> <referenceRange> <observationRange> <text>37.0-47.0</text> </ observationRange> </referenceRange> </observation> </ component> <component> <observation moodCode="EVN" classCode="OBS"> <templateId root="216.840.1.705768.10..4.2" /> <id nullFlavor="NA" /> <code codeSystem="local" code="NA" displayName= "SODIUM" /> <statusCode code="completed" /> <effectiveTime value="" /> <value unit="mmol/L" xsi:type="PQ" value="136" /> <referenceRange> <observationRange> <text> 135-148</text> </observationRange> </referenceRange> </observation> </component> <component> <observation moodCode= "EVN" classCode="OBS"> <templateId root="10.03.840.1.299867.10..4.2 " /> <id nullFlavor="NA" /> <code codeSystem="local" code="CL " displayName="CHLORIDE" /> <statusCode code="completed" /> < effectiveTime value="" /> <value unit="mmol/L" xsi:type="PQ " value="95" /> <interpretationCode codeSystem="local" code="*" /> <referenceRange> <observationRange> <text>98-110</ text> </observationRange> </referenceRange> </ observation> </component> <component> <observation moodCode= "EVN" classCode="OBS"> <templateId root="16.840.1.858033.10..22.4.2 " /> <id nullFlavor="NA" /> <code codeSystem="local" code="CO2 " displayName="CARBON DIOXIDE" /> <statusCode code="completed" /> <effectiveTime value="359421594281" /> <value unit="mmol/L" xsi: type="PQ" value="24" /> <referenceRange> <observationRange> <text>21-32</text> </observationRange> </ referenceRange> </observation> </component> <component> <observation moodCode="EVN" classCode="OBS"> <templateId root= "16.840.1.985739.10..4.2" /> <id nullFlavor="NA" /> < code codeSystem="local" code="CAION" displayName="CALCIUM IONIZED" /> < statusCode code="completed" /> <effectiveTime value="838493990745" /> <value unit="mg/dL" xsi:type="PQ" value="TEST NOT PERFORMED" /> <referenceRange> <observationRange> <text>4.5-5.3</ text> </observationRange> </referenceRange> </ observation> </component> </organizer> </entry> <entry> <organizer moodCode="EVN" classCode="BATTERY"> <templateId root= "10.03.840.1.991742.06.06.22.4.1" /> <id nullFlavor="NA" /> <code codeSystem="local" code="iTROPI" displayName="TROPONIN I BEDSIDE" /> < statusCode code="completed" /> <component> <observation moodCode= "EVN" classCode="OBS"> <templateId root="10.03.840.1.931351.10..22.4.2 " /> <id nullFlavor="NA" /> <code codeSystem="local" code= "CMETHOD" displayName="METHOD" /> <statusCode code="completed" /> <effectiveTime value="" /> <value unit="" xsi:type="PQ " value="Bedside" /> <referenceRange> <observationRange> <text /> </observationRange> </referenceRange> </observation> </component> <component> <observation moodCode="EVN" classCode="OBS"> <templateId root= "10.03.840.1.831343.06.06.22.4.2" /> <id nullFlavor="NA" /> < code codeSystem="local" code="TROPI" displayName="TROPONIN I" /> < statusCode code="completed" /> <effectiveTime value="" /> <value unit="ng/mL" xsi:type="PQ" value="< 0.04" /> < referenceRange> <observationRange> <text>< 0.11</text > </observationRange> </referenceRange> </observation > </component> </organizer> </entry> <entry> <organizer moodCode= "EVN" classCode="BATTERY"> <templateId root="10.03.840.1.353556.06.06.22.4.1 " /> <id nullFlavor="NA" /> <code codeSystem="local" code="CBCD" displayName="CBC W/DIFF" /> <statusCode code="completed" /> <component > <observation moodCode="EVN" classCode="OBS"> <templateId root= "10.03.840.1.457117.06.06.22.4.2" /> <id nullFlavor="NA" /> < code codeSystem="local" code="BA#" displayName="BASOPHIL #" /> < statusCode code="completed" /> <effectiveTime value="115801190971" /> <value unit="k/cumm" xsi:type="PQ" value="0.1" /> < referenceRange> <observationRange> <text>0.0-0.2</text> </observationRange> </referenceRange> </observation > </component> <component> <observation moodCode="EVN" classCode="OBS"> <templateId root="216.840.1.906854.10...4.2" /> <id nullFlavor="NA" /> <code codeSystem="local" code="BA% " displayName="BASOPHIL %" /> <statusCode code="completed" /> <effectiveTime value="" /> <value unit="%" xsi: type="PQ" value="1" /> <referenceRange> <observationRange> <text>0-1</text> </observationRange> </ referenceRange> </observation> </component> <component> <observation moodCode="EVN" classCode="OBS"> <templateId root= "10.03.840.1.657777.10..4.2" /> <id nullFlavor="NA" /> < code codeSystem="local" code="EO#" displayName="EOSINOPHIL #" /> < statusCode code="completed" /> <effectiveTime value="" /> <value unit="k/cumm" xsi:type="PQ" value="0.1" /> < referenceRange> <observationRange> <text>0.1-0.5</text> </observationRange> </referenceRange> </observation > </component> <component> <observation moodCode="EVN" classCode="OBS"> <templateId root="16.840.1.323202.10.20.22.4.2" /> <id nullFlavor="NA" /> <code codeSystem="local" code="EO% " displayName="EOSINOPHIL %" /> <statusCode code="completed" /> <effectiveTime value="" /> <value unit="%" xsi: type="PQ" value="3" /> <referenceRange> <observationRange> <text>2-4</text> </observationRange> </ referenceRange> </observation> </component> <component> <observation moodCode="EVN" classCode="OBS"> <templateId root= "216.840.1.924658.10.20.22.4.2" /> <id nullFlavor="NA" /> < code codeSystem="local" code="GR#" displayName="GRANULOCYTE #" /> < statusCode code="completed" /> <effectiveTime value="" /> <value unit="k/cumm" xsi:type="PQ" value="1.9" /> < interpretationCode codeSystem="local" code="*" /> <referenceRange> <observationRange> <text>2.0-9.0</text> </ observationRange> </referenceRange> </observation> </ component> <component> <observation moodCode="EVN" classCode="OBS"> <templateId root="216.840.1.481396.10.20.22.4.2" /> <id nullFlavor="NA" /> <code codeSystem="local" code="GR%" displayName= "GRANULOCYTE %" /> <statusCode code="completed" /> < effectiveTime value="" /> <value unit="%" xsi:type="PQ " value="40" /> <interpretationCode codeSystem="local" code="*" /> <referenceRange> <observationRange> <text>50-75</ text> </observationRange> </referenceRange> </ observation> </component> <component> <observation moodCode= "EVN" classCode="OBS"> <templateId root="216.840.1.833165.10..4.2 " /> <id nullFlavor="NA" /> <code codeSystem="local" code="LY# " displayName="LYMPHOCYTE #" /> <statusCode code="completed" /> <effectiveTime value="" /> <value unit="k/cumm" xsi:type ="PQ" value="2.0" /> <referenceRange> <observationRange> <text>1.0-4.0</text> </observationRange> </ referenceRange> </observation> </component> <component> <observation moodCode="EVN" classCode="OBS"> <templateId root= "10.03.840.1.429074.06.06.22.4.2" /> <id nullFlavor="NA" /> < code codeSystem="local" code="LY%" displayName="LYMPHOCYTE %" /> <statusCode code="completed" /> <effectiveTime value="" /> <value unit="%" xsi:type="PQ" value="41" /> < interpretationCode codeSystem="local" code="*" /> <referenceRange> <observationRange> <text>20-30</text> </ observationRange> </referenceRange> </observation> </ component> <component> <observation moodCode="EVN" classCode="OBS"> <templateId root="10.03.840.1.378640.06.06.22.4.2" /> <id nullFlavor="NA" /> <code codeSystem="local" code="MCH" displayName= "MEAN CELL HGB" /> <statusCode code="completed" /> < effectiveTime value="" /> <value unit="pg" xsi:type="PQ" value="24.5" /> <interpretationCode codeSystem="local" code="*" /> <referenceRange> <observationRange> <text>27.0- 33.0</text> </observationRange> </referenceRange> </ observation> </component> <component> <observation moodCode= "EVN" classCode="OBS"> <templateId root="216.840.1.558184.102022.4.2 " /> <id nullFlavor="NA" /> <code codeSystem="local" code= "MCHC" displayName="MEAN CELL HGB CONCENTRATION" /> <statusCode code= "completed" /> <effectiveTime value="" /> <value unit="g/dL" xsi:type="PQ" value="31.1" /> <interpretationCode codeSystem="local" code="*" /> <referenceRange> < observationRange> <text>32.0-37.0</text> </ observationRange> </referenceRange> </observation> </ component> <component> <observation moodCode="EVN" classCode="OBS"> <templateId root="216.840.1.552337.10.20.22.4.2" /> <id nullFlavor="NA" /> <code codeSystem="local" code="MCV" displayName= "MEAN CELL VOLUME" /> <statusCode code="completed" /> < effectiveTime value="" /> <value unit="fl" xsi:type="PQ" value="78.7" /> <interpretationCode codeSystem="local" code="*" /> <referenceRange> <observationRange> <text>80.0- 100.0</text> </observationRange> </referenceRange> </ observation> </component> <component> <observation moodCode= "EVN" classCode="OBS"> <templateId root="10.03.840.1.835576.10.20.22.4.2 " /> <id nullFlavor="NA" /> <code codeSystem="local" code="MO# " displayName="MONOCYTE #" /> <statusCode code="completed" /> <effectiveTime value="" /> <value unit="k/cumm" xsi:type= "PQ" value="0.7" /> <referenceRange> <observationRange> <text>0.1-1.0</text> </observationRange> </ referenceRange> </observation> </component> <component> <observation moodCode="EVN" classCode="OBS"> <templateId root= "840.1.120385.1022.4.2" /> <id nullFlavor="NA" /> < code codeSystem="local" code="MO%" displayName="MONOCYTE %" /> <statusCode code="completed" /> <effectiveTime value="" /> <value unit="%" xsi:type="PQ" value="15" /> < interpretationCode codeSystem="local" code="*" /> <referenceRange> <observationRange> <text>4-6</text> </ observationRange> </referenceRange> </observation> </ component> <component> <observation moodCode="EVN" classCode="OBS"> <templateId root="840.1.447775.10.2022.4.2" /> <id nullFlavor="NA" /> <code codeSystem="local" code="MPVT" displayName= "MEAN PLATELET VOLUME" /> <statusCode code="completed" /> < effectiveTime value="" /> <value unit="fl" xsi:type="PQ" value="8.8" /> <referenceRange> <observationRange> <text>8.5-10.9</text> </observationRange> </ referenceRange> </observation> </component> <component> <observation moodCode="EVN" classCode="OBS"> <templateId root= "16.840.1.784907.10..22.4.2" /> <id nullFlavor="NA" /> < code codeSystem="local" code="RBC" displayName="RED BLOOD CELL" /> < statusCode code="completed" /> <effectiveTime value="" /> <value unit="m/cumm" xsi:type="PQ" value="3.43" /> < interpretationCode codeSystem="local" code="*" /> <referenceRange> <observationRange> <text>4.00-6.00</text> </ observationRange> </referenceRange> </observation> </ component> <component> <observation moodCode="EVN" classCode="OBS"> <templateId root="10.03.840.1.250252.06.06.22.4.2" /> <id nullFlavor="NA" /> <code codeSystem="local" code="RDW" displayName=" RED CELL DISTRIBUTION WIDTH" /> <statusCode code="completed" /> <effectiveTime value="" /> <value unit="%" xsi:type= "PQ" value="19.5" /> <interpretationCode codeSystem="local" code="*" / > <referenceRange> <observationRange> <text> 11.0-15.6</text> </observationRange> </referenceRange> </observation> </component> <component> <observation moodCode="EVN" classCode="OBS"> <templateId root= "10.03.840.1.650161..4.2" /> <id nullFlavor="NA" /> < code codeSystem="local" code="WBC" displayName="WHITE BLOOD CELL" /> < statusCode code="completed" /> <effectiveTime value="" /> <value unit="k/cumm" xsi:type="PQ" value="4.8" /> < interpretationCode codeSystem="local" code="*" /> <referenceRange> <observationRange> <text>5.0-10.0</text> </ observationRange> </referenceRange> </observation> </ component> <component> <observation moodCode="EVN" classCode="OBS"> <templateId root="216.840.1.282928.104.2" /> <id nullFlavor="NA" /> <code codeSystem="local" code="HGBT" displayName= "HEMOGLOBIN" /> <statusCode code="completed" /> < effectiveTime value="" /> <value unit="gm/dL" xsi:type="PQ " value="8.4" /> <interpretationCode codeSystem="local" code="*" /> <referenceRange> <observationRange> <text>12.0- 16.0</text> </observationRange> </referenceRange> </ observation> </component> <component> <observation moodCode= "EVN" classCode="OBS"> <templateId root="16.840.1.604205.10.4.2 " /> <id nullFlavor="NA" /> <code codeSystem="local" code= "HCTT" displayName="HEMATOCRIT" /> <statusCode code="completed" /> <effectiveTime value="" /> <value unit="%" xsi: type="PQ" value="27.0" /> <interpretationCode codeSystem="local" code= "*" /> <referenceRange> <observationRange> < text>37.0-47.0</text> </observationRange> </referenceRange> </observation> </component> <component> <observation moodCode="EVN" classCode="OBS"> <templateId root= "10.03.840.1.781850.10.22.4.2" /> <id nullFlavor="NA" /> < code codeSystem="local" code="PLTT" displayName="PLATELET COUNT" /> < statusCode code="completed" /> <effectiveTime value="" /> <value unit="k/cumm" xsi:type="PQ" value="387" /> < referenceRange> <observationRange> <text>150-400</text> </observationRange> </referenceRange> </observation > </component> </organizer> </entry> <entry> <organizer moodCode= "EVN" classCode="BATTERY"> <templateId root="10.03.840.1.182093.10...4.1 " /> <id nullFlavor="NA" /> <code codeSystem="local" code="MORPH" displayName="MORPHOLOGY" /> <statusCode code="completed" /> <component > <observation moodCode="EVN" classCode="OBS"> <templateId root= "10.03.840.1.728728.102022.4.2" /> <id nullFlavor="NA" /> < code codeSystem="local" code="RMORPH" displayName="RBC MORPH" /> < statusCode code="completed" /> <effectiveTime value="" /> <value unit="" xsi:type="PQ" value="NOTED" /> <referenceRange > <observationRange> <text /> </ observationRange> </referenceRange> </observation> </ component> </organizer> </entry> <entry> <organizer moodCode="EVN" classCode="BATTERY"> <templateId root="216.840.1.364056.10..22.4.1" /> <id nullFlavor="NA" /> <code codeSystem="local" code="LIVER" displayName="HEPATIC FUNCTION PANEL" /> <statusCode code="completed" /> <component> <observation moodCode="EVN" classCode="OBS"> < templateId root="216.840.1.843420.10..22.4.2" /> <id nullFlavor="NA " /> <code codeSystem="local" code="BILUC" displayName="BILI UNCONJUGATED" /> <statusCode code="completed" /> < effectiveTime value="" /> <value unit="mg/dL" xsi:type="PQ " value="0.0" /> <referenceRange> <observationRange> <text>0.0-0.7</text> </observationRange> </ referenceRange> </observation> </component> <component> <observation moodCode="EVN" classCode="OBS"> <templateId root= "216.840.1.319002.10..22.4.2" /> <id nullFlavor="NA" /> < code codeSystem="local" code="AST" displayName="AST/SGOT" /> < statusCode code="completed" /> <effectiveTime value="" /> <value unit="Units/L" xsi:type="PQ" value="17" /> < referenceRange> <observationRange> <text>10-37</text> </observationRange> </referenceRange> </observation> </component> <component> <observation moodCode="EVN" classCode= "OBS"> <templateId root="16.840.1.361647.22.4.2" /> < id nullFlavor="NA" /> <code codeSystem="local" code="ALT" displayName= "ALT/SGPT" /> <statusCode code="completed" /> <effectiveTime value="" /> <value unit="Units/L" xsi:type="PQ" value="22" /> <referenceRange> <observationRange> <text>& lt; 66</text> </observationRange> </referenceRange> < /observation> </component> <component> <observation moodCode= "EVN" classCode="OBS"> <templateId root="16.840.1.711709.06.06.22.4.2 " /> <id nullFlavor="NA" /> <code codeSystem="local" code="TP " displayName="TOTAL PROTEIN" /> <statusCode code="completed" /> <effectiveTime value="" /> <value unit="gm/dL" xsi:type ="PQ" value="6.4" /> <referenceRange> <observationRange> <text>6.4-8.2</text> </observationRange> </ referenceRange> </observation> </component> <component> <observation moodCode="EVN" classCode="OBS"> <templateId root= "16.840.1.620921.22.4.2" /> <id nullFlavor="NA" /> < code codeSystem="local" code="ALB" displayName="ALBUMIN" /> < statusCode code="completed" /> <effectiveTime value="" /> <value unit="gm/dL" xsi:type="PQ" value="2.9" /> < interpretationCode codeSystem="local" code="*" /> <referenceRange> <observationRange> <text>3.4-5.0</text> </ observationRange> </referenceRange> </observation> </ component> <component> <observation moodCode="EVN" classCode="OBS"> <templateId root="216.840.1.322425.10.4.2" /> <id nullFlavor="NA" /> <code codeSystem="local" code="BILTOT" displayName= "BILI TOTAL" /> <statusCode code="completed" /> < effectiveTime value="" /> <value unit="mg/dL" xsi:type="PQ " value="< 0.1" /> <referenceRange> <observationRange> <text>0.0-1.0</text> </observationRange> </ referenceRange> </observation> </component> <component> <observation moodCode="EVN" classCode="OBS"> <templateId root= "10.03.840.1.955601.06.06.22.4.2" /> <id nullFlavor="NA" /> < code codeSystem="local" code="ALKP" displayName="ALKALINE PHOSPHATASE TOTAL" /> <statusCode code="completed" /> <effectiveTime value= "" /> <value unit="IU/L" xsi:type="PQ" value="80" /> <referenceRange> <observationRange> <text>45-117</ text> </observationRange> </referenceRange> </ observation> </component> <component> <observation moodCode= "EVN" classCode="OBS"> <templateId root="16.840.1.186466.06.06.22.4.2 " /> <id nullFlavor="NA" /> <code codeSystem="local" code= "BILC" displayName="BILI CONJUGATED" /> <statusCode code="completed" / > <effectiveTime value="" /> <value unit="mg/dL" xsi:type="PQ" value="< 0.1" /> <referenceRange> < observationRange> <text>0.0-0.3</text> </ observationRange> </referenceRange> </observation> </ component> </organizer> </entry> <entry> <organizer moodCode="EVN" classCode="BATTERY"> <templateId root="16.840.1.345517.06.06.22.4.1" /> <id nullFlavor="NA" /> <code codeSystem="local" code="LIP" displayName ="LIPASE" /> <statusCode code="completed" /> <component> < observation moodCode="EVN" classCode="OBS"> <templateId root= "16.840.1.772792.06.06.22.4.2" /> <id nullFlavor="NA" /> < code codeSystem="local" code="LIP" displayName="LIPASE" /> <statusCode code="completed" /> <effectiveTime value="591668055596" /> < value unit="Units/L" xsi:type="PQ" value="92" /> <referenceRange> <observationRange> <text>73-393</text> </ observationRange> </referenceRange> </observation> </ component> </organizer> </entry> <entry> <organizer moodCode="EVN" classCode="BATTERY"> <templateId root="16.840.1.849926.10.4.1" /> <id nullFlavor="NA" /> <code codeSystem="local" code="ACTMN" displayName="ACETAMINOPHEN (TYLENOL)" /> <statusCode code="completed" /> <component> <observation moodCode="EVN" classCode="OBS"> < templateId root="10.03.840.1.631313...4.2" /> <id nullFlavor="NA " /> <code codeSystem="local" code="ACTMN" displayName="ACETAMINOPHEN ( TYLENOL)" /> <statusCode code="completed" /> <effectiveTime value="432854600831" /> <value unit="mcg/mL" xsi:type="PQ" value="< 2" /> <referenceRange> <observationRange> <text >10-30</text> </observationRange> </referenceRange> < /observation> </component> </organizer> </entry> <entry> < organizer moodCode="EVN" classCode="BATTERY"> <templateId root= "10.03.840.1.477823.10..4.1" /> <id nullFlavor="NA" /> <code codeSystem="local" code="SALI" displayName="SALICYLATE (ASPIRIN)" /> < statusCode code="completed" /> <component> <observation moodCode= "EVN" classCode="OBS"> <templateId root="16.840.1.600110.10...4.2 " /> <id nullFlavor="NA" /> <code codeSystem="local" code= "SALINUM" displayName="SALICYLATE" /> <statusCode code="completed" /> <effectiveTime value="764120758213" /> <value unit="mg/dL" xsi :type="PQ" value="< 2.8" /> <referenceRange> < observationRange> <text>2.8-29.0</text> </ observationRange> </referenceRange> </observation> </ component> </organizer> </entry> <entry> <organizer moodCode="EVN" classCode="BATTERY"> <templateId root="16.840.1.131658.06.06.22.4.1" /> <id nullFlavor="NA" /> <code codeSystem="local" code="DRUGAB" displayName="UR DRUGS OF ABUSE SCREEN" /> <statusCode code="completed" /> <component> <observation moodCode="EVN" classCode="OBS"> < templateId root="216.840.1.671997.10...4.2" /> <id nullFlavor="NA " /> <code codeSystem="local" code="AMPHU" displayName="UR AMPHETAMINES SCREEN" /> <statusCode code="completed" /> < effectiveTime value="533569908641" /> <value unit="" xsi:type="PQ" value="POS (>1000 ng/mL)" /> <referenceRange> < observationRange> <text>NEGATIVE</text> </ observationRange> </referenceRange> </observation> </ component> <component> <observation moodCode="EVN" classCode="OBS"> <templateId root="216.840.1.112048.10..4.2" /> <id nullFlavor="NA" /> <code codeSystem="local" code="BARBU" displayName= "UR BARBITURATE SCREEN" /> <statusCode code="completed" /> < effectiveTime value="718753486326" /> <value unit="" xsi:type="PQ" value="NEG (< 200 ng/mL)" /> <referenceRange> < observationRange> <text>NEGATIVE</text> </ observationRange> </referenceRange> </observation> </ component> <component> <observation moodCode="EVN" classCode="OBS"> <templateId root="216.840.1.100027.10...4.2" /> <id nullFlavor="NA" /> <code codeSystem="local" code="DAUCOMMENT" displayName="DRUGS OF ABUSE SCREEN COMMENT" /> <statusCode code= "completed" /> <effectiveTime value="945777463420" /> <value unit="" xsi:type="PQ" value="" /> <referenceRange> < observationRange> <text /> </observationRange> </referenceRange> </observation> </component> <component> <observation moodCode="EVN" classCode="OBS"> <templateId root= "216.840.1.267887.10...4.2" /> <id nullFlavor="NA" /> < code codeSystem="local" code="OPIU" displayName="UR OPIATES SCREEN" /> <statusCode code="completed" /> <effectiveTime value="668737663313" /> <value unit="" xsi:type="PQ" value="NEG (< 300 ng/mL)" /> <referenceRange> <observationRange> <text>NEGATIVE</ text> </observationRange> </referenceRange> </ observation> </component> <component> <observation moodCode= "EVN" classCode="OBS"> <templateId root="216.840.1.246549.10...4.2 " /> <id nullFlavor="NA" /> <code codeSystem="local" code= "PCPU" displayName="UR PHENCYCLIDINE (PCP) SCREEN" /> <statusCode code= "completed" /> <effectiveTime value="539243706902" /> <value unit="" xsi:type="PQ" value="NEG (< 25 ng/mL)" /> <referenceRange > <observationRange> <text>NEGATIVE</text> </ observationRange> </referenceRange> </observation> </ component> <component> <observation moodCode="EVN" classCode="OBS"> <templateId root="216.840.1.749623.06.06.22.4.2" /> <id nullFlavor="NA" /> <code codeSystem="local" code="THCU" displayName=" UR CANNABINOIDS (THC) SCREEN" /> <statusCode code="completed" /> <effectiveTime value="" /> <value unit="" xsi:type="PQ " value="NEG (< 50 ng/mL)" /> <referenceRange> < observationRange> <text>NEGATIVE</text> </ observationRange> </referenceRange> </observation> </ component> <component> <observation moodCode="EVN" classCode="OBS"> <templateId root="2.16.840.1.968845.06.06.22.4.2" /> <id nullFlavor="NA" /> <code codeSystem="local" code="COCAU" displayName= "UR COCAINE METABOLITE SCREEN" /> <statusCode code="completed" /> <effectiveTime value="885979642361" /> <value unit="" xsi:type="PQ " value="NEG (< 300 ng/mL)" /> <referenceRange> < observationRange> <text>NEGATIVE</text> </ observationRange> </referenceRange> </observation> </ component> <component> <observation moodCode="EVN" classCode="OBS"> <templateId root="2.16.840.1.109043.06.06.22.4.2" /> <id nullFlavor="NA" /> <code codeSystem="local" code="METHU" displayName= "UR METHADONE SCREEN" /> <statusCode code="completed" /> < effectiveTime value="" /> <value unit="" xsi:type="PQ" value="NEG (< 300 ng/mL)" /> <referenceRange> < observationRange> <text>NEGATIVE</text> </ observationRange> </referenceRange> </observation> </ component> <component> <observation moodCode="EVN" classCode="OBS"> <templateId root="2.16.840.1.953239.10..22.4.2" /> <id nullFlavor="NA" /> <code codeSystem="local" code="BENZU" displayName= "UR BENZODIAZEPINE SCREEN" /> <statusCode code="completed" /> <effectiveTime value="753926586316" /> <value unit="" xsi:type="PQ" value="NEG (< 200 ng/mL)" /> <referenceRange> < observationRange> <text>NEGATIVE</text> </ observationRange> </referenceRange> </observation> </ component> </organizer> </entry> <entry> <organizer moodCode="EVN" classCode="BATTERY"> <templateId root="2.16.840.1.432940.10..22.4.1" /> <id nullFlavor="NA" /> <code codeSystem="local" code="UA" displayName= "URINALYSIS, ROUTINE" /> <statusCode code="completed" /> <component> <observation moodCode="EVN" classCode="OBS"> <templateId root= "2.16.840.1.706430.10.20.22.4.2" /> <id nullFlavor="NA" /> < code codeSystem="local" code="LEUESU" displayName="UA LEUKOCYTE ESTERASE DIPSTICK" /> <statusCode code="completed" /> <effectiveTime value="222390758833" /> <value unit="" xsi:type="PQ" value="NEGATIVE" / > <referenceRange> <observationRange> <text> NEGATIVE</text> </observationRange> </referenceRange> </observation> </component> <component> <observation moodCode ="EVN" classCode="OBS"> <templateId root= "216.840.1.584022.10.22.4.2" /> <id nullFlavor="NA" /> < code codeSystem="local" code="NITRIU" displayName="UA NITRITE DIPSTICK" /> <statusCode code="completed" /> <effectiveTime value=" " /> <value unit="" xsi:type="PQ" value="NEGATIVE" /> < referenceRange> <observationRange> <text>NEGATIVE</text > </observationRange> </referenceRange> </observation > </component> <component> <observation moodCode="EVN" classCode="OBS"> <templateId root="216.840.1.076827.10..4.2" /> <id nullFlavor="NA" /> <code codeSystem="local" code="PROTEIU " displayName="UA PROTEIN DIPSTICK" /> <statusCode code="completed" /> <effectiveTime value="" /> <value unit="" xsi: type="PQ" value="NEGATIVE" /> <referenceRange> < observationRange> <text>NEGATIVE</text> </ observationRange> </referenceRange> </observation> </ component> <component> <observation moodCode="EVN" classCode="OBS"> <templateId root="16.840.1.932038.06.06.22.4.2" /> <id nullFlavor="NA" /> <code codeSystem="local" code="DGLUU" displayName= "UA GLUCOSE DIPSTICK" /> <statusCode code="completed" /> < effectiveTime value="" /> <value unit="" xsi:type="PQ" value="NEGATIVE" /> <referenceRange> <observationRange> <text>NEGATIVE</text> </observationRange> </ referenceRange> </observation> </component> <component> <observation moodCode="EVN" classCode="OBS"> <templateId root= "216.840.1.014483.10..4.2" /> <id nullFlavor="NA" /> < code codeSystem="local" code="KETONU" displayName="UA KETONE DIPSTICK" /> <statusCode code="completed" /> <effectiveTime value=" " /> <value unit="" xsi:type="PQ" value="NEGATIVE" /> < referenceRange> <observationRange> <text>NEGATIVE</text > </observationRange> </referenceRange> </observation > </component> <component> <observation moodCode="EVN" classCode="OBS"> <templateId root="216.840.1.907485...4.2" /> <id nullFlavor="NA" /> <code codeSystem="local" code="UROBILU " displayName="UA UROBILINOGEN DIPSTICK" /> <statusCode code="completed " /> <effectiveTime value="" /> <value unit="" xsi :type="PQ" value="NORMAL" /> <referenceRange> < observationRange> <text>NORMAL</text> </observationRange > </referenceRange> </observation> </component> < component> <observation moodCode="EVN" classCode="OBS"> < templateId root="16.840.1.386794.10..4.2" /> <id nullFlavor="NA " /> <code codeSystem="local" code="BILU" displayName="UA BILIRUBIN DIPSTICK" /> <statusCode code="completed" /> <effectiveTime value="" /> <value unit="" xsi:type="PQ" value="NEGATIVE" / > <referenceRange> <observationRange> <text> NEGATIVE</text> </observationRange> </referenceRange> </observation> </component> <component> <observation moodCode ="EVN" classCode="OBS"> <templateId root= "216.840.1.356114.10.4.2" /> <id nullFlavor="NA" /> < code codeSystem="local" code="ADAM" displayName="UA BLOOD DIPSTICK" /> < statusCode code="completed" /> <effectiveTime value="" /> <value unit="" xsi:type="PQ" value="NEGATIVE" /> < referenceRange> <observationRange> <text>NEGATIVE</text > </observationRange> </referenceRange> </observation > </component> <component> <observation moodCode="EVN" classCode="OBS"> <templateId root="216.840.1.425636.06.06.22.4.2" /> <id nullFlavor="NA" /> <code codeSystem="local" code="SPGRU" displayName="UA SPECIFIC GRAVITY" /> <statusCode code="completed" /> <effectiveTime value="" /> <value unit="" xsi:type= "PQ" value="1.015" /> <referenceRange> <observationRange> <text>1.015-1.025</text> </observationRange> </ referenceRange> </observation> </component> <component> <observation moodCode="EVN" classCode="OBS"> <templateId root= "216.840.1.003440.06.06.22.4.2" /> <id nullFlavor="NA" /> < code codeSystem="local" code="INGRID" displayName="UR PH" /> <statusCode code="completed" /> <effectiveTime value="" /> < value unit="" xsi:type="PQ" value="6.0" /> <referenceRange> <observationRange> <text>5.0-7.0</text> </ observationRange> </referenceRange> </observation> </ component> </organizer> </entry> <entry> <organizer moodCode="EVN" classCode="BATTERY"> <templateId root="10.03.840.1.977010.06.06.22.4.1" /> <id nullFlavor="NA" /> <code codeSystem="local" code="ALC" displayName ="ALCOHOL (ETHANOL) SERUM" /> <statusCode code="completed" /> < component> <observation moodCode="EVN" classCode="OBS"> < templateId root="16.840.1.921441.10..4.2" /> <id nullFlavor="NA " /> <code codeSystem="local" code="ALC" displayName="ALCOHOL (ETHANOL ) SERUM" /> <statusCode code="completed" /> <effectiveTime value="163345970288" /> <value unit="mg/dL" xsi:type="PQ" value="< 10" /> <referenceRange> <observationRange> < text> < 10</text> </observationRange> </referenceRange> </observation> </component> </organizer> </entry> <entry> < organizer moodCode="EVN" classCode="BATTERY"> <templateId root= "16.840.1.470029.10..4.1" /> <id nullFlavor="NA" /> <code codeSystem="local" code="LACTG" displayName="LACTIC ACID" /> <statusCode code="completed" /> <component> <observation moodCode="EVN" classCode="OBS"> <templateId root="10.03.840.1.604140.10.20.22.4.2" /> <id nullFlavor="NA" /> <code codeSystem="local" code="LACT" displayName="LACTIC ACID" /> <statusCode code="completed" /> < effectiveTime value="713723053291" /> <value unit="mmol/L" xsi:type="PQ " value="0.6" /> <referenceRange> <observationRange> <text>0.5-2.0</text> </observationRange> </ referenceRange> </observation> </component> </organizer> </entry > <entry> <organizer moodCode="EVN" classCode="BATTERY"> <templateId root="2.16.840.1.810922.10.20.22.4.1" /> <id nullFlavor="NA" /> <code codeSystem="local" code="BC" displayName="BLOOD CULTURE" /> <statusCode code="completed" /> <component> <observation moodCode="EVN" classCode="OBS"> <templateId root="2.16.840.1.168207.10.20.22.4.2" /> <id nullFlavor="NA" /> <code codeSystem="local" code="MB" displayName="Microbiology" /> <statusCode code="completed" /> <effectiveTime value="568697180487" /> <value xsi:type="ST" value="<pre ><b>BLOOD CULTURE</b> See BelowIs this a Possible Sepsis/Sepsis patient? NoIs this the first BLOOD CULTURE for this hospital visit? YesBLOOD CULTURE(F) Cosme Date/Time: 04/22/2017 20:34 Irvin Date /Time: 04/28/2017 06:42SOURCE: BLOODSPEC DESC: [id number] [facility] [facility] [place] [address]</pre>" /> < referenceRange> <observationRange> <text /> < /observationRange> </referenceRange> </observation> </ component> </organizer> </entry> <entry> <organizer moodCode="EVN" classCode="BATTERY"> <templateId root="2.16.840.1.093322.10..22.4.1" /> <id nullFlavor="NA" /> <code codeSystem="local" code="BC" displayName= "BLOOD CULTURE" /> <statusCode code="completed" /> <component> <observation moodCode="EVN" classCode="OBS"> <templateId root= "2.16.840.1.862954.10...4.2" /> <id nullFlavor="NA" /> < code codeSystem="local" code="MB" displayName="Microbiology" /> < statusCode code="completed" /> <effectiveTime value="580075419564" /> <value xsi:type="ST" value="<pre><b>BLOOD CULTURE</b> See BelowIs this a Possible Sepsis/Sepsis patient? NoIs this the first BLOOD CULTURE for this hospital visit? YesBLOOD CULTURE(F) [facility]me Date/Time: 04/22/2017 20: 34 Irvin Date/Time: 04/28/2017 06:43SOURCE: BLOODSPEC DESC: [id number] [facility]TH [facility] [place] [address]</pre>" /> <referenceRange> < observationRange> <text /> </observationRange> </referenceRange> </observation> </component> </organizer> </ entry> <entry> <organizer moodCode="EVN" classCode="BATTERY"> < templateId root="2.16.840.1.417982.10..22.4.1" /> <id nullFlavor="NA" /> <code codeSystem="local" code="SUQ240" displayName="Ferritin" /> < statusCode code="completed" /> <component> <observation moodCode= "EVN" classCode="OBS"> <templateId root="2.16.840.1.795056.10.20.22.4.2 " /> <id nullFlavor="NA" /> <code codeSystem="local" code= "Rjb824" displayName="Ferritin" /> <statusCode code="completed" /> <effectiveTime value="333772233260" /> <value unit="ng/mL" xsi: type="PQ" value="15.93" /> <referenceRange> < observationRange> <text>4.63-204.00</text> </ observationRange> </referenceRange> </observation> </ component> </organizer> </entry> <entry> <organizer moodCode="EVN" classCode="BATTERY"> <templateId root="2.16.840.1.025294.10.20.22.4.1" /> <id nullFlavor="NA" /> <code codeSystem="local" code="219629" displayName="Reticulocyte Count" /> <statusCode code="completed" /> < component> <observation moodCode="EVN" classCode="OBS"> < templateId root="2.16.840.1.058962.10.20.22.4.2" /> <id nullFlavor="NA " /> <code codeSystem="local" code="886692" displayName="Reticulocyte Count" /> <statusCode code="completed" /> <effectiveTime value ="699124375664" /> <value unit="%" xsi:type="PQ" value="0.9" /> <referenceRange> <observationRange> <text>0.6-2.6 </text> </observationRange> </referenceRange> </ observation> </component> </organizer> </entry> <entry> <organizer moodCode="EVN" classCode="BATTERY"> <templateId root= "16.840.1.288790.10.4.1" /> <id nullFlavor="NA" /> <code codeSystem="local" code="[id number]" displayName="Peripheral Smear" /> < statusCode code="completed" /> <component> <observation moodCode= "EVN" classCode="OBS"> <templateId root="840.1.456562.06.06.224.2 " /> <id nullFlavor="NA" /> <code codeSystem="local" code= "[id number]" displayName="Peripheral smear" /> <statusCode code= "completed" /> <effectiveTime value="203110075486" /> <value unit="" xsi:type="PQ" value="Sent to [facility] for review" /> < referenceRange> <observationRange> <text /> < /observationRange> </referenceRange> </observation> </ component> </organizer> </entry> <entry> <organizer moodCode="EVN" classCode="BATTERY"> <templateId root="840.1.400852.06.06.224.1" /> <id nullFlavor="NA" /> <code codeSystem="local" code="816528" displayName="Reticulocyte Count" /> <statusCode code="completed" /> < component> <observation moodCode="EVN" classCode="OBS"> < templateId root="10.03.840.1.091377.10.4.2" /> <id nullFlavor="NA " /> <code codeSystem="local" code="374310" displayName="Reticulocyte Count" /> <statusCode code="completed" /> <effectiveTime value ="849813024576" /> <value unit="%" xsi:type="PQ" value="0.9" /> <referenceRange> <observationRange> <text>0.6-2.6 </text> </observationRange> </referenceRange> </ observation> </component> </organizer> </entry> <entry> <organizer moodCode="EVN" classCode="BATTERY"> <templateId root= "216.840.1.827401.10..22.4.1" /> <id nullFlavor="NA" /> <code codeSystem="local" code="84651-1" displayName="Complete blood count (CBC) with automated white blood cell (WBC) differential" /> <statusCode code= "completed" /> <component> <observation moodCode="EVN" classCode= "OBS"> <templateId root="216.840.1.096014.10..22.4.2" /> < id nullFlavor="NA" /> <code codeSystem="local" code="6690-2" displayName="Blood leukocytes automated count (number/volume)" /> < statusCode code="completed" /> <effectiveTime value="" /> <value unit="10*3/uL" xsi:type="PQ" value="17.6" /> < interpretationCode codeSystem="local" code="" /> <referenceRange> <observationRange> <text>4.3-11.0</text> </ observationRange> </referenceRange> </observation> </ component> <component> <observation moodCode="EVN" classCode="OBS"> <templateId root="10.03.840.1.766876.10...4.2" /> <id nullFlavor="NA" /> <code codeSystem="local" code="789-8" displayName= "Blood erythrocytes automated count (number/volume)" /> <statusCode code="completed" /> <effectiveTime value="456817892975" /> < value unit="10*6/uL" xsi:type="PQ" value="4.06" /> <interpretationCode codeSystem="local" code="" /> <referenceRange> < observationRange> <text>4.35-5.85</text> </ observationRange> </referenceRange> </observation> </ component> <component> <observation moodCode="EVN" classCode="OBS"> <templateId root="2.16.840.1.720806.10.20.22.4.2" /> <id nullFlavor="NA" /> <code codeSystem="local" code="95410-8" displayName= "Venous blood hemoglobin measurement (mass/volume)" /> <statusCode code ="completed" /> <effectiveTime value="340911330957" /> <value unit="g/dL" xsi:type="PQ" value="10.0" /> <interpretationCode codeSystem="local" code="" /> <referenceRange> < observationRange> <text>11.5-16.0</text> </ observationRange> </referenceRange> </observation> </ component> <component> <observation moodCode="EVN" classCode="OBS"> <templateId root="2.16.840.1.815560.10.20.22.4.2" /> <id nullFlavor="NA" /> <code codeSystem="local" code="14522-4" displayName= "Blood hematocrit (volume fraction)" /> <statusCode code="completed" / > <effectiveTime value="225525938925" /> <value unit="%" xsi:type="PQ" value="30" /> <interpretationCode codeSystem="local" code ="" /> <referenceRange> <observationRange> < text>35-52</text> </observationRange> </referenceRange> </observation> </component> <component> <observation moodCode="EVN" classCode="OBS"> <templateId root= "2.16.840.1.720007.10..22.4.2" /> <id nullFlavor="NA" /> < code codeSystem="local" code="787-2" displayName="Automated erythrocyte mean corpuscular volume" /> <statusCode code="completed" /> < effectiveTime value="" /> <value unit="[foz_us]" xsi:type= "PQ" value="74" /> <interpretationCode codeSystem="local" code="" /> <referenceRange> <observationRange> <text>80- 99</text> </observationRange> </referenceRange> </ observation> </component> <component> <observation moodCode= "EVN" classCode="OBS"> <templateId root="216.840.1.399220.10...4.2 " /> <id nullFlavor="NA" /> <code codeSystem="local" code="785 -6" displayName="Automated erythrocyte mean corpuscular hemoglobin (mass per erythrocyte)" /> <statusCode code="completed" /> < effectiveTime value="" /> <value unit="pg" xsi:type="PQ" value="25" /> <referenceRange> <observationRange> <text>25-34</text> </observationRange> </referenceRange > </observation> </component> <component> <observation moodCode="EVN" classCode="OBS"> <templateId root= "2.16.840.1.354246.10..22.4.2" /> <id nullFlavor="NA" /> < code codeSystem="local" code="786-4" displayName="Automated erythrocyte mean corpuscular hemoglobin concentration measurement (mass/volume)" /> < statusCode code="completed" /> <effectiveTime value="" /> <value unit="g/dL" xsi:type="PQ" value="33" /> <referenceRange > <observationRange> <text>32-36</text> </ observationRange> </referenceRange> </observation> </ component> <component> <observation moodCode="EVN" classCode="OBS"> <templateId root="2.16.840.1.168709.10..22.4.2" /> <id nullFlavor="NA" /> <code codeSystem="local" code="788-0" displayName= "Automated erythrocyte distribution width ratio" /> <statusCode code= "completed" /> <effectiveTime value="183525486864" /> <value unit="%" xsi:type="PQ" value="17.5" /> <interpretationCode codeSystem="local" code="" /> <referenceRange> < observationRange> <text>10.0-14.5</text> </ observationRange> </referenceRange> </observation> </ component> <component> <observation moodCode="EVN" classCode="OBS"> <templateId root="2.16.840.1.841316.10.20.22.4.2" /> <id nullFlavor="NA" /> <code codeSystem="local" code="777-3" displayName= "Automated blood platelet count (count/volume)" /> <statusCode code= "completed" /> <effectiveTime value="" /> <value unit="10*3/uL" xsi:type="PQ" value="526" /> <interpretationCode codeSystem="local" code="" /> <referenceRange> < observationRange> <text>130-400</text> </ observationRange> </referenceRange> </observation> </ component> <component> <observation moodCode="EVN" classCode="OBS"> <templateId root="2.16.840.1.765222.10..22.4.2" /> <id nullFlavor="NA" /> <code codeSystem="local" code="22235-6" displayName= "Automated blood platelet mean volume measurement" /> <statusCode code= "completed" /> <effectiveTime value="" /> <value unit="[[facility]_us]" xsi:type="PQ" value="9.2" /> <referenceRange> <observationRange> <text>7.4-10.4</text> </ observationRange> </referenceRange> </observation> </ component> <component> <observation moodCode="EVN" classCode="OBS"> <templateId root="216.840.1.579057..22.4.2" /> <id nullFlavor="NA" /> <code codeSystem="local" code="770-8" displayName= "Automated blood neutrophils/100 leukocytes" /> <statusCode code= "completed" /> <effectiveTime value="" /> <value unit="%" xsi:type="PQ" value="76" /> <interpretationCode codeSystem ="local" code="" /> <referenceRange> <observationRange> <text>42-75</text> </observationRange> </ referenceRange> </observation> </component> <component> <observation moodCode="EVN" classCode="OBS"> <templateId root= "2.16.840.1.775254.10..22.4.2" /> <id nullFlavor="NA" /> < code codeSystem="local" code="736-9" displayName="Automated blood lymphocytes/ 100 leukocytes" /> <statusCode code="completed" /> < effectiveTime value="339525248214" /> <value unit="%" xsi:type="PQ " value="8" /> <interpretationCode codeSystem="local" code="" /> <referenceRange> <observationRange> <text>12-44</ text> </observationRange> </referenceRange> </ observation> </component> <component> <observation moodCode= "EVN" classCode="OBS"> <templateId root="2.16.840.1.942351.10.20.22.4.2 " /> <id nullFlavor="NA" /> <code codeSystem="local" code= "62822-4" displayName="Blood monocytes/100 leukocytes" /> <statusCode code="completed" /> <effectiveTime value="874658790977" /> < value unit="%" xsi:type="PQ" value="16" /> <interpretationCode codeSystem="local" code="" /> <referenceRange> < observationRange> <text>0-12</text> </observationRange> </referenceRange> </observation> </component> < component> <observation moodCode="EVN" classCode="OBS"> < templateId root="2.16.840.1.384240.10.20.22.4.2" /> <id nullFlavor="NA " /> <code codeSystem="local" code="713-8" displayName="Automated blood eosinophils/100 leukocytes" /> <statusCode code="completed" /> <effectiveTime value="502606597053" /> <value unit="%" xsi: type="PQ" value="0" /> <referenceRange> <observationRange> <text>0-10</text> </observationRange> </ referenceRange> </observation> </component> <component> <observation moodCode="EVN" classCode="OBS"> <templateId root= "2.16.840.1.689839.10.20.22.4.2" /> <id nullFlavor="NA" /> < code codeSystem="local" code="706-2" displayName="Automated blood basophils/100 leukocytes" /> <statusCode code="completed" /> <effectiveTime value="" /> <value unit="%" xsi:type="PQ" value="0" /> <referenceRange> <observationRange> <text>0-10 </text> </observationRange> </referenceRange> </ observation> </component> <component> <observation moodCode= "EVN" classCode="OBS"> <templateId root="10.03.840.1.918627.10.20.22.4.2 " /> <id nullFlavor="NA" /> <code codeSystem="local" code="751 -8" displayName="Blood neutrophils automated count (number/volume)" /> <statusCode code="completed" /> <effectiveTime value="" /> <value unit="10*3" xsi:type="PQ" value="13.4" /> < interpretationCode codeSystem="local" code="" /> <referenceRange> <observationRange> <text>1.8-7.8</text> </ observationRange> </referenceRange> </observation> </ component> <component> <observation moodCode="EVN" classCode="OBS"> <templateId root="16.840.1.390690.10.20.22.4.2" /> <id nullFlavor="NA" /> <code codeSystem="local" code="731-0" displayName= "Blood lymphocytes automated count (number/volume)" /> <statusCode code ="completed" /> <effectiveTime value="727096872167" /> <value unit="10*3" xsi:type="PQ" value="1.3" /> <referenceRange> < observationRange> <text>1.0-4.0</text> </ observationRange> </referenceRange> </observation> </ component> <component> <observation moodCode="EVN" classCode="OBS"> <templateId root="216.840.1.702268.10..4.2" /> <id nullFlavor="NA" /> <code codeSystem="local" code="742-7" displayName= "Blood monocytes automated count (number/volume)" /> <statusCode code= "completed" /> <effectiveTime value="769412140477" /> <value unit="10*3" xsi:type="PQ" value="2.8" /> <interpretationCode codeSystem ="local" code="" /> <referenceRange> <observationRange> <text>0.0-1.0</text> </observationRange> </ referenceRange> </observation> </component> <component> <observation moodCode="EVN" classCode="OBS"> <templateId root= "10.03.840.1.354970.06.06.22.4.2" /> <id nullFlavor="NA" /> < code codeSystem="local" code="711-2" displayName="Automated eosinophil count" / > <statusCode code="completed" /> <effectiveTime value= "571500311922" /> <value unit="10*3/uL" xsi:type="PQ" value="0.0" /> <referenceRange> <observationRange> <text>0.0- 0.3</text> </observationRange> </referenceRange> </ observation> </component> <component> <observation moodCode= "EVN" classCode="OBS"> <templateId root="216.840.1.761767.06.06.22.4.2 " /> <id nullFlavor="NA" /> <code codeSystem="local" code="704 -7" displayName="Automated blood basophil count (count/volume)" /> < statusCode code="completed" /> <effectiveTime value="046133338575" /> <value unit="10*3/uL" xsi:type="PQ" value="0.0" /> < referenceRange> <observationRange> <text>0.0-0.1</text> </observationRange> </referenceRange> </observation > </component> </organizer> </entry> <entry> <organizer moodCode= "EVN" classCode="BATTERY"> <templateId root="216.840.1.885708.10.4.1 " /> <id nullFlavor="NA" /> <code codeSystem="local" code="65365-4" displayName="Comprehensive metabolic panel" /> <statusCode code="completed " /> <component> <observation moodCode="EVN" classCode="OBS"> <templateId root="216.840.1.066384.10...4.2" /> <id nullFlavor ="NA" /> <code codeSystem="local" code="2951-2" displayName="Serum or plasma sodium measurement (moles/volume)" /> <statusCode code= "completed" /> <effectiveTime value="358632901830" /> <value unit="mmol/L" xsi:type="PQ" value="135" /> <referenceRange> <observationRange> <text>135-145</text> </ observationRange> </referenceRange> </observation> </ component> <component> <observation moodCode="EVN" classCode="OBS"> <templateId root="2.16.840.1.813647.10..4.2" /> <id nullFlavor="NA" /> <code codeSystem="local" code="28210-18" displayName= "Serum or plasma potassium measurement (moles/volume)" /> <statusCode code="completed" /> <effectiveTime value="" /> < value unit="mmol/L" xsi:type="PQ" value="4.6" /> <referenceRange> <observationRange> <text>3.6-5.0</text> </ observationRange> </referenceRange> </observation> </ component> <component> <observation moodCode="EVN" classCode="OBS"> <templateId root="2.16.840.1.954392.10..22.4.2" /> <id nullFlavor="NA" /> <code codeSystem="local" code="" displayName= "Serum or plasma chloride measurement (moles/volume)" /> <statusCode code="completed" /> <effectiveTime value="936464551421" /> < value unit="mmol/L" xsi:type="PQ" value="103" /> <referenceRange> <observationRange> <text>98-107</text> </ observationRange> </referenceRange> </observation> </ component> <component> <observation moodCode="EVN" classCode="OBS"> <templateId root="2.16.840.1.595690.10..22.4.2" /> <id nullFlavor="NA" /> <code codeSystem="local" code="2028-04" displayName= "Carbon dioxide" /> <statusCode code="completed" /> < effectiveTime value="" /> <value unit="mmol/L" xsi:type="PQ " value="15" /> <interpretationCode codeSystem="local" code="" /> <referenceRange> <observationRange> <text>21-32</ text> </observationRange> </referenceRange> </ observation> </component> <component> <observation moodCode= "EVN" classCode="OBS"> <templateId root="216.840.1.238358.10..22.4.2 " /> <id nullFlavor="NA" /> <code codeSystem="local" code= "79795-3" displayName="Serum or plasma anion gap determination (moles/volume)" / > <statusCode code="completed" /> <effectiveTime value= "667189295120" /> <value unit="mmol/L" xsi:type="PQ" value="17" /> <interpretationCode codeSystem="local" code="" /> < referenceRange> <observationRange> <text>5-14</text> </observationRange> </referenceRange> </observation> </component> <component> <observation moodCode="EVN" classCode= "OBS"> <templateId root="16.840.1.009049.10..22.4.2" /> < id nullFlavor="NA" /> <code codeSystem="local" code="3094-0" displayName="Serum or plasma urea nitrogen measurement (mass/volume)" /> <statusCode code="completed" /> <effectiveTime value="413312877703" /> <value unit="mg/dL" xsi:type="PQ" value="50" /> < interpretationCode codeSystem="local" code="" /> <referenceRange> <observationRange> <text>7-18</text> </ observationRange> </referenceRange> </observation> </ component> <component> <observation moodCode="EVN" classCode="OBS"> <templateId root="216.840.1.049446.10.20.22.4.2" /> <id nullFlavor="NA" /> <code codeSystem="local" code="2160-0" displayName= "Serum or plasma creatinine measurement (mass/volume)" /> <statusCode code="completed" /> <effectiveTime value="" /> < value unit="mg/dL" xsi:type="PQ" value="4.85" /> <interpretationCode codeSystem="local" code="" /> <referenceRange> < observationRange> <text>0.60-1.30</text> </ observationRange> </referenceRange> </observation> </ component> <component> <observation moodCode="EVN" classCode="OBS"> <templateId root="2.16.840.1.397477.10..22.4.2" /> <id nullFlavor="NA" /> <code codeSystem="local" code="3097-3" displayName= "Serum or plasma urea nitrogen/creatinine mass ratio" /> <statusCode code="completed" /> <effectiveTime value="539554901611" /> < value unit="" xsi:type="PQ" value="10" /> <referenceRange> < observationRange> <text>NRG</text> </observationRange> </referenceRange> </observation> </component> < component> <observation moodCode="EVN" classCode="OBS"> < templateId root="2.16.840.1.397067.10.20.22.4.2" /> <id nullFlavor="NA " /> <code codeSystem="local" code="35570-3" displayName="Serum or plasma creatinine measurement with calculation of estimated glomerular filtration rate" /> <statusCode code="completed" /> < effectiveTime value="" /> <value unit="" xsi:type="PQ" value="9" /> <referenceRange> <observationRange> <text>NRG</text> </observationRange> </referenceRange> </observation> </component> <component> <observation moodCode="EVN" classCode="OBS"> <templateId root= "2.16.840.1.785348.10.20.22.4.2" /> <id nullFlavor="NA" /> < code codeSystem="local" code="2345-7" displayName="Serum or plasma glucose measurement (mass/volume)" /> <statusCode code="completed" /> <effectiveTime value="" /> <value unit="mg/dL" xsi:type="PQ " value="111" /> <interpretationCode codeSystem="local" code="" /> <referenceRange> <observationRange> <text>70-105 </text> </observationRange> </referenceRange> </ observation> </component> <component> <observation moodCode= "EVN" classCode="OBS"> <templateId root="216.840.1.013822.10..22.4.2 " /> <id nullFlavor="NA" /> <code codeSystem="local" code= "40774-2" displayName="Serum or plasma calcium measurement (mass/volume)" /> <statusCode code="completed" /> <effectiveTime value= "568964523407" /> <value unit="mg/dL" xsi:type="PQ" value="9.8" /> <referenceRange> <observationRange> <text>8.5-10.1 </text> </observationRange> </referenceRange> </ observation> </component> <component> <observation moodCode= "EVN" classCode="OBS"> <templateId root="2.16.840.1.608277.10..22.4.2 " /> <id nullFlavor="NA" /> <code codeSystem="local" code= "1974-09" displayName="Serum or plasma total bilirubin measurement (mass/volume) " /> <statusCode code="completed" /> <effectiveTime value= "490252912016" /> <value unit="mg/dL" xsi:type="PQ" value="0.5" /> <referenceRange> <observationRange> <text>0.1-1.0< /text> </observationRange> </referenceRange> </ observation> </component> <component> <observation moodCode= "EVN" classCode="OBS"> <templateId root="216.840.1.706611.10.20.22.4.2 " /> <id nullFlavor="NA" /> <code codeSystem="local" code= "6768-6" displayName="Serum or plasma alkaline phosphatase measurement ( enzymatic activity/volume)" /> <statusCode code="completed" /> <effectiveTime value="472863558233" /> <value unit="U/L" xsi:type="PQ " value="81" /> <referenceRange> <observationRange> <text>40-136</text> </observationRange> </ referenceRange> </observation> </component> <component> <observation moodCode="EVN" classCode="OBS"> <templateId root= "216.840.1.414575.10.20.22.4.2" /> <id nullFlavor="NA" /> < code codeSystem="local" code="19208" displayName="Serum or plasma aspartate aminotransferase measurement (enzymatic activity/volume)" /> < statusCode code="completed" /> <effectiveTime value="554192317284" /> <value unit="U/L" xsi:type="PQ" value="10" /> <referenceRange > <observationRange> <text>5-34</text> </ observationRange> </referenceRange> </observation> </ component> <component> <observation moodCode="EVN" classCode="OBS"> <templateId root="10.03.840.1.515340.10.20.22.4.2" /> <id nullFlavor="NA" /> <code codeSystem="local" code="1742-6" displayName= "Serum or plasma alanine aminotransferase measurement (enzymatic activity/volume )" /> <statusCode code="completed" /> <effectiveTime value= "302181798897" /> <value unit="U/L" xsi:type="PQ" value="10" /> <referenceRange> <observationRange> <text>0-55</text > </observationRange> </referenceRange> </observation > </component> <component> <observation moodCode="EVN" classCode="OBS"> <templateId root="216.840.1.700848.10.20.22.4.2" /> <id nullFlavor="NA" /> <code codeSystem="local" code="2885-2" displayName="Serum or plasma protein measurement (mass/volume)" /> < statusCode code="completed" /> <effectiveTime value="623517398161" /> <value unit="g/dL" xsi:type="PQ" value="8.4" /> < interpretationCode codeSystem="local" code="" /> <referenceRange> <observationRange> <text>6.4-8.2</text> </ observationRange> </referenceRange> </observation> </ component> <component> <observation moodCode="EVN" classCode="OBS"> <templateId root="216.840.1.907620.10.20.22.4.2" /> <id nullFlavor="NA" /> <code codeSystem="local" code="1751-7" displayName= "Serum or plasma albumin measurement (mass/volume)" /> <statusCode code ="completed" /> <effectiveTime value="626845639205" /> <value unit="g/dL" xsi:type="PQ" value="4.5" /> <referenceRange> < observationRange> <text>3.2-4.5</text> </ observationRange> </referenceRange> </observation> </ component> </organizer> </entry> <entry> <organizer moodCode="EVN" classCode="BATTERY"> <templateId root="16.840.1.543258.10..22.4.1" /> <id nullFlavor="NA" /> <code codeSystem="local" code="44870-7" displayName="Blood manual differential performed detection" /> <statusCode code="completed" /> <component> <observation moodCode="EVN" classCode="OBS"> <templateId root="216.840.1.259984.10..22.4.2" /> <id nullFlavor="NA" /> <code codeSystem="local" code="22889-3 " displayName="Blood monocytes/100 leukocytes" /> <statusCode code= "completed" /> <effectiveTime value="" /> <value unit="%" xsi:type="PQ" value="13" /> <referenceRange> < observationRange> <text>NRG</text> </observationRange> </referenceRange> </observation> </component> < component> <observation moodCode="EVN" classCode="OBS"> < templateId root="16.840.1.638843.10.20.22.4.2" /> <id nullFlavor="NA " /> <code codeSystem="local" code="769-0" displayName="Manual blood segmented neutrophils/100 leukocytes" /> <statusCode code="completed" / > <effectiveTime value="721316722007" /> <value unit="%" xsi:type="PQ" value="77" /> <referenceRange> < observationRange> <text>NRG</text> </observationRange> </referenceRange> </observation> </component> < component> <observation moodCode="EVN" classCode="OBS"> < templateId root="216.840.1.455073.10.20.22.4.2" /> <id nullFlavor="NA " /> <code codeSystem="local" code="88407-7" displayName="Blood band neutrophils/100 leukocytes" /> <statusCode code="completed" /> <effectiveTime value="136890103326" /> <value unit="%" xsi:type= "PQ" value="2" /> <referenceRange> <observationRange> <text>NRG</text> </observationRange> </ referenceRange> </observation> </component> <component> <observation moodCode="EVN" classCode="OBS"> <templateId root= "10.03.840.1.391609.10...4.2" /> <id nullFlavor="NA" /> < code codeSystem="local" code="737-7" displayName="Manual blood lymphocytes/100 leukocytes" /> <statusCode code="completed" /> <effectiveTime value="210701261924" /> <value unit="%" xsi:type="PQ" value="8" /> <referenceRange> <observationRange> <text>NRG< /text> </observationRange> </referenceRange> </ observation> </component> <component> <observation moodCode= "EVN" classCode="OBS"> <templateId root="10.03.840.1.122311.10.20.22.4.2 " /> <id nullFlavor="NA" /> <code codeSystem="local" code="803 -7" displayName="Blood toxic granules detection by light microscopy" /> <statusCode code="completed" /> <effectiveTime value="" / > <value unit="" xsi:type="PQ" value="2+" /> <referenceRange> <observationRange> <text>NRG</text> </ observationRange> </referenceRange> </observation> </ component> <component> <observation moodCode="EVN" classCode="OBS"> <templateId root="216.840.1.437826.10..4.2" /> <id nullFlavor="NA" /> <code codeSystem="local" code="741-9" displayName= "Blood microcytes detection by light microscopy" /> <statusCode code= "completed" /> <effectiveTime value="" /> <value unit="" xsi:type="PQ" value="SLIGHT" /> <referenceRange> < observationRange> <text>NRG</text> </observationRange> </referenceRange> </observation> </component> </ organizer> </entry> <entry> <organizer moodCode="EVN" classCode="BATTERY"> <templateId root="216.840.1.147305.10...4.1" /> <id nullFlavor= "NA" /> <code codeSystem="local" code="82203-9" displayName="Blood lactic acid measurement (moles/volume)" /> <statusCode code="completed" /> < component> <observation moodCode="EVN" classCode="OBS"> < templateId root="216.840.1.777646.10..22.4.2" /> <id nullFlavor="NA " /> <code codeSystem="local" code="33437-8" displayName="Blood lactic acid measurement (moles/volume)" /> <statusCode code="completed" /> <effectiveTime value="" /> <value unit="mmol/L" xsi: type="PQ" value="1.13" /> <referenceRange> <observationRange > <text>0.50-2.00</text> </observationRange> </ referenceRange> </observation> </component> </organizer> </entry > <entry> <organizer moodCode="EVN" classCode="BATTERY"> <templateId root="216.840.1.557928.10..4.1" /> <id nullFlavor="NA" /> <code codeSystem="local" code="600-7" displayName="Bacterial blood culture" /> < statusCode code="completed" /> <component> <observation moodCode= "EVN" classCode="OBS"> <templateId root="216.840.1.407783.10...4.2 " /> <id nullFlavor="NA" /> <code codeSystem="local" code="600 -7" displayName="Bacterial blood culture" /> <statusCode code= "completed" /> <effectiveTime value="674965945318" /> <value unit="" xsi:type="PQ" value="NG" /> <referenceRange> < observationRange> <text>NRG</text> </observationRange> </referenceRange> </observation> </component> </ organizer> </entry> <entry> <organizer moodCode="EVN" classCode="BATTERY"> <templateId root="216.840.1.185862.10.20.22.4.1" /> <id nullFlavor= "NA" /> <code codeSystem="local" code="69590-7" displayName="Urine drug screening test" /> <statusCode code="completed" /> <component> <observation moodCode="EVN" classCode="OBS"> <templateId root= "216.840.1.455241.10..22.4.2" /> <id nullFlavor="NA" /> < code codeSystem="local" code="46062-5" displayName="Urine phencyclidine detection by screening method" /> <statusCode code="completed" /> <effectiveTime value="" /> <value unit="" xsi:type="PQ " value="NEGATIVE" /> <referenceRange> <observationRange> <text>NEGATIVE</text> </observationRange> </ referenceRange> </observation> </component> <component> <observation moodCode="EVN" classCode="OBS"> <templateId root= "2.16.840.1.230274.06.06.22.4.2" /> <id nullFlavor="NA" /> < code codeSystem="local" code="89493-4" displayName="Urine benzodiazepines detection by screening method" /> <statusCode code="completed" /> <effectiveTime value="" /> <value unit="" xsi:type="PQ " value="NEGATIVE" /> <referenceRange> <observationRange> <text>NEGATIVE</text> </observationRange> </ referenceRange> </observation> </component> <component> <observation moodCode="EVN" classCode="OBS"> <templateId root= "216.840.1.015885...22.4.2" /> <id nullFlavor="NA" /> < code codeSystem="local" code="3397-7" displayName="Urine cocaine detection" /> <statusCode code="completed" /> <effectiveTime value= "" /> <value unit="" xsi:type="PQ" value="NEGATIVE" /> <referenceRange> <observationRange> <text>NEGATIVE </text> </observationRange> </referenceRange> </ observation> </component> <component> <observation moodCode= "EVN" classCode="OBS"> <templateId root="216.840.1.276074.10..22.4.2 " /> <id nullFlavor="NA" /> <code codeSystem="local" code= "12813-3" displayName="Urine amphetamines detection by screening method" /> <statusCode code="completed" /> <effectiveTime value= "" /> <value unit="" xsi:type="PQ" value="NEGATIVE" /> <referenceRange> <observationRange> <text>NEGATIVE </text> </observationRange> </referenceRange> </ observation> </component> <component> <observation moodCode= "EVN" classCode="OBS"> <templateId root="216.840.1.418372.10...4.2 " /> <id nullFlavor="NA" /> <code codeSystem="local" code= "51389-0" displayName="Urine methamphetamine detection by screening method" /> <statusCode code="completed" /> <effectiveTime value= "" /> <value unit="" xsi:type="PQ" value="NEGATIVE" /> <referenceRange> <observationRange> <text>NEGATIVE </text> </observationRange> </referenceRange> </ observation> </component> <component> <observation moodCode= "EVN" classCode="OBS"> <templateId root="216.840.1.762888.10..22.4.2 " /> <id nullFlavor="NA" /> <code codeSystem="local" code= "72852-0" displayName="Urine cannabinoids detection by screening method" /> <statusCode code="completed" /> <effectiveTime value= "" /> <value unit="" xsi:type="PQ" value="POSITIVE" /> <interpretationCode codeSystem="local" code="*" /> < referenceRange> <observationRange> <text>NEGATIVE</text > </observationRange> </referenceRange> </observation > </component> <component> <observation moodCode="EVN" classCode="OBS"> <templateId root="216.840.1.530402.10.20.22.4.2" /> <id nullFlavor="NA" /> <code codeSystem="local" code="05913-8 " displayName="Urine opiates detection by screening method" /> < statusCode code="completed" /> <effectiveTime value="313456835050" /> <value unit="" xsi:type="PQ" value="POSITIVE" /> < interpretationCode codeSystem="local" code="*" /> <referenceRange> <observationRange> <text>NEGATIVE</text> </ observationRange> </referenceRange> </observation> </ component> <component> <observation moodCode="EVN" classCode="OBS"> <templateId root="10.03.840.1.487679.10.22.4.2" /> <id nullFlavor="NA" /> <code codeSystem="local" code="3377-9" displayName= "Urine barbiturates detection" /> <statusCode code="completed" /> <effectiveTime value="258458760129" /> <value unit="" xsi:type="PQ " value="NEGATIVE" /> <referenceRange> <observationRange> <text>NEGATIVE</text> </observationRange> </ referenceRange> </observation> </component> <component> <observation moodCode="EVN" classCode="OBS"> <templateId root= "16.840.1.270886.10.20.22.4.2" /> <id nullFlavor="NA" /> < code codeSystem="local" code="04955-7" displayName="Screening urine tricyclic antidepressants detection" /> <statusCode code="completed" /> <effectiveTime value="" /> <value unit="" xsi:type="PQ" value="NEGATIVE" /> <referenceRange> <observationRange> <text>NEGATIVE</text> </observationRange> </ referenceRange> </observation> </component> <component> <observation moodCode="EVN" classCode="OBS"> <templateId root= "216.840.1.768255.10...4.2" /> <id nullFlavor="NA" /> < code codeSystem="local" code="57987-8" displayName="Urine methadone detection by screening method" /> <statusCode code="completed" /> < effectiveTime value="" /> <value unit="" xsi:type="PQ" value="NEGATIVE" /> <referenceRange> <observationRange> <text>NEGATIVE</text> </observationRange> </ referenceRange> </observation> </component> <component> <observation moodCode="EVN" classCode="OBS"> <templateId root= "10.03.840.1.554732.10...4.2" /> <id nullFlavor="NA" /> < code codeSystem="local" code="92073-6" displayName="Urine oxycodone detection" / > <statusCode code="completed" /> <effectiveTime value= "" /> <value unit="" xsi:type="PQ" value="NEGATIVE" /> <referenceRange> <observationRange> <text>NEGATIVE </text> </observationRange> </referenceRange> </ observation> </component> <component> <observation moodCode= "EVN" classCode="OBS"> <templateId root="16.840.1.458897.10...4.2 " /> <id nullFlavor="NA" /> <code codeSystem="local" code= "04949-6" displayName="Urine propoxyphene detection" /> <statusCode code="completed" /> <effectiveTime value="" /> < value unit="" xsi:type="PQ" value="NEGATIVE" /> <referenceRange> <observationRange> <text>NEGATIVE</text> </ observationRange> </referenceRange> </observation> </ component> </organizer> </entry> <entry> <organizer moodCode="EVN" classCode="BATTERY"> <templateId root="216.840.1.942947.10..22.4.1" /> <id nullFlavor="NA" /> <code codeSystem="local" code="69215-8" displayName="Complete urinalysis with reflex to culture" /> <statusCode code="completed" /> <component> <observation moodCode="EVN" classCode="OBS"> <templateId root="216.840.1.719762.10...4.2" /> <id nullFlavor="NA" /> <code codeSystem="local" code="5778-6" displayName="Urine color determination" /> <statusCode code="completed " /> <effectiveTime value="" /> <value unit="" xsi :type="PQ" value="YELLOW" /> <referenceRange> < observationRange> <text>NRG</text> </observationRange> </referenceRange> </observation> </component> < component> <observation moodCode="EVN" classCode="OBS"> < templateId root="16.840.1.355354.10..22.4.2" /> <id nullFlavor="NA " /> <code codeSystem="local" code="46421-8" displayName="Urine clarity determination" /> <statusCode code="completed" /> < effectiveTime value="" /> <value unit="" xsi:type="PQ" value="CLEAR" /> <referenceRange> <observationRange> <text>NRG</text> </observationRange> </referenceRange > </observation> </component> <component> <observation moodCode="EVN" classCode="OBS"> <templateId root= "216.840.1.681577.10..22.4.2" /> <id nullFlavor="NA" /> < code codeSystem="local" code="5803-2" displayName="Urine pH measurement by test strip" /> <statusCode code="completed" /> <effectiveTime value ="" /> <value unit="" xsi:type="PQ" value="5" /> < referenceRange> <observationRange> <text>5-9</text> </observationRange> </referenceRange> </observation> </component> <component> <observation moodCode="EVN" classCode= "OBS"> <templateId root="16.840.1.753620.10..22.4.2" /> < id nullFlavor="NA" /> <code codeSystem="local" code="5811-5" displayName="Specific gravity of urine by test strip" /> <statusCode code="completed" /> <effectiveTime value="289897987789" /> < value unit="" xsi:type="PQ" value="1.025" /> <interpretationCode codeSystem="local" code="*" /> <referenceRange> < observationRange> <text>1.016-1.022</text> </ observationRange> </referenceRange> </observation> </ component> <component> <observation moodCode="EVN" classCode="OBS"> <templateId root="10.03.840.1.954177.10..22.4.2" /> <id nullFlavor="NA" /> <code codeSystem="local" code="72373-7" displayName= "Urine protein assay by test strip, semi-quantitative" /> <statusCode code="completed" /> <effectiveTime value="" /> < value unit="" xsi:type="PQ" value="2+" /> <interpretationCode codeSystem="local" code="*" /> <referenceRange> < observationRange> <text>NEGATIVE</text> </ observationRange> </referenceRange> </observation> </ component> <component> <observation moodCode="EVN" classCode="OBS"> <templateId root="10.03.840.1.202655.10..4.2" /> <id nullFlavor="NA" /> <code codeSystem="local" code="68895-6" displayName= "Urine glucose detection by automated test strip" /> <statusCode code= "completed" /> <effectiveTime value="" /> <value unit="" xsi:type="PQ" value="NEGATIVE" /> <referenceRange> < observationRange> <text>NEGATIVE</text> </ observationRange> </referenceRange> </observation> </ component> <component> <observation moodCode="EVN" classCode="OBS"> <templateId root="16.840.1.511808.10.22.4.2" /> <id nullFlavor="NA" /> <code codeSystem="local" code="22927-7" displayName= "Erythrocytes detection in urine sediment by light microscopy" /> < statusCode code="completed" /> <effectiveTime value="" /> <value unit="" xsi:type="PQ" value="NEGATIVE" /> < referenceRange> <observationRange> <text>NEGATIVE</text > </observationRange> </referenceRange> </observation > </component> <component> <observation moodCode="EVN" classCode="OBS"> <templateId root="216.840.1.653739.10..22.4.2" /> <id nullFlavor="NA" /> <code codeSystem="local" code="84842-5 " displayName="Urine ketones detection by automated test strip" /> < statusCode code="completed" /> <effectiveTime value="" /> <value unit="" xsi:type="PQ" value="NEGATIVE" /> < referenceRange> <observationRange> <text>NEGATIVE</text > </observationRange> </referenceRange> </observation > </component> <component> <observation moodCode="EVN" classCode="OBS"> <templateId root="10.03.840.1.075323.10.4.2" /> <id nullFlavor="NA" /> <code codeSystem="local" code="5802-4" displayName="Urine nitrite detection by test strip" /> <statusCode code ="completed" /> <effectiveTime value="" /> <value unit="" xsi:type="PQ" value="NEGATIVE" /> <referenceRange> < observationRange> <text>NEGATIVE</text> </ observationRange> </referenceRange> </observation> </ component> <component> <observation moodCode="EVN" classCode="OBS"> <templateId root="16.840.1.173483.10...4.2" /> <id nullFlavor="NA" /> <code codeSystem="local" code="5770-3" displayName= "Urine total bilirubin detection by test strip" /> <statusCode code= "completed" /> <effectiveTime value="" /> <value unit="" xsi:type="PQ" value="1+" /> <interpretationCode codeSystem= "local" code="*" /> <referenceRange> <observationRange> <text>NEGATIVE</text> </observationRange> </ referenceRange> </observation> </component> <component> <observation moodCode="EVN" classCode="OBS"> <templateId root= "216.840.1.874552.10..4.2" /> <id nullFlavor="NA" /> < code codeSystem="local" code="08143-3" displayName="Urine urobilinogen measurement by automated test strip (mass/volume)" /> <statusCode code= "completed" /> <effectiveTime value="" /> <value unit="" xsi:type="PQ" value="NORMAL" /> <referenceRange> < observationRange> <text>NORMAL</text> </observationRange > </referenceRange> </observation> </component> < component> <observation moodCode="EVN" classCode="OBS"> < templateId root="216.840.1.286124.10.4.2" /> <id nullFlavor="NA " /> <code codeSystem="local" code="5799-2" displayName="Urine leukocyte esterase detection by dipstick" /> <statusCode code= "completed" /> <effectiveTime value="" /> <value unit="" xsi:type="PQ" value="1+" /> <interpretationCode codeSystem= "local" code="*" /> <referenceRange> <observationRange> <text>NEGATIVE</text> </observationRange> </ referenceRange> </observation> </component> <component> <observation moodCode="EVN" classCode="OBS"> <templateId root= "216.840.1.952888.22.4.2" /> <id nullFlavor="NA" /> < code codeSystem="local" code="77503-3" displayName="Automated urine sediment erythrocyte count by microscopy (number/high power field)" /> < statusCode code="completed" /> <effectiveTime value="" /> <value unit="" xsi:type="PQ" value="NONE" /> <referenceRange> <observationRange> <text>NRG</text> </ observationRange> </referenceRange> </observation> </ component> <component> <observation moodCode="EVN" classCode="OBS"> <templateId root="216.840.1.224022.06.06.22.4.2" /> <id nullFlavor="NA" /> <code codeSystem="local" code="5821-4" displayName= "Automated urine sediment leukocyte count by microscopy (number/high power field )" /> <statusCode code="completed" /> <effectiveTime value= "" /> <value unit="" xsi:type="PQ" value="RARE" /> <referenceRange> <observationRange> <text>NRG</text> </observationRange> </referenceRange> </observation> </component> <component> <observation moodCode="EVN" classCode ="OBS"> <templateId root="16.840.1.001374.06.06.22.4.2" /> < id nullFlavor="NA" /> <code codeSystem="local" code="47539-7" displayName="Bacteria detection in urine sediment by light microscopy" /> <statusCode code="completed" /> <effectiveTime value=" " /> <value unit="" xsi:type="PQ" value="FEW" /> < interpretationCode codeSystem="local" code="*" /> <referenceRange> <observationRange> <text>NRG</text> </ observationRange> </referenceRange> </observation> </ component> <component> <observation moodCode="EVN" classCode="OBS"> <templateId root="216.840.1.887759.10.20.22.4.2" /> <id nullFlavor="NA" /> <code codeSystem="local" code="38504-4" displayName= "Crystals detection in urine sediment by light microscopy" /> < statusCode code="completed" /> <effectiveTime value="879366596688" /> <value unit="" xsi:type="PQ" value="NONE" /> <referenceRange> <observationRange> <text>NRG</text> </ observationRange> </referenceRange> </observation> </ component> <component> <observation moodCode="EVN" classCode="OBS"> <templateId root="10.03.840.1.078181.10..4.2" /> <id nullFlavor="NA" /> <code codeSystem="local" code="91987-0" displayName= "Casts detection in urine sediment by light microscopy" /> <statusCode code="completed" /> <effectiveTime value="527246269027" /> < value unit="" xsi:type="PQ" value="NONE" /> <referenceRange> <observationRange> <text>NRG</text> </observationRange > </referenceRange> </observation> </component> < component> <observation moodCode="EVN" classCode="OBS"> < templateId root="16.840.1.095357.10.20.22.4.2" /> <id nullFlavor="NA " /> <code codeSystem="local" code="8247-9" displayName="Mucus detection in urine sediment by light microscopy" /> <statusCode code= "completed" /> <effectiveTime value="700633254803" /> <value unit="" xsi:type="PQ" value="LARGE" /> <interpretationCode codeSystem= "local" code="*" /> <referenceRange> <observationRange> <text>NRG</text> </observationRange> </ referenceRange> </observation> </component> <component> <observation moodCode="EVN" classCode="OBS"> <templateId root= "216.840.1.204975.10..22.4.2" /> <id nullFlavor="NA" /> < code codeSystem="local" code="66211-4" displayName="Complete urinalysis with reflex to culture" /> <statusCode code="completed" /> < effectiveTime value="823245070741" /> <value unit="" xsi:type="PQ" value="NO" /> <referenceRange> <observationRange> <text>NRG</text> </observationRange> </referenceRange> </observation> </component> <component> <observation moodCode="EVN" classCode="OBS"> <templateId root= "2.16.840.1.392116.10..22.4.2" /> <id nullFlavor="NA" /> < code codeSystem="local" code="8246-1" displayName="Amorphous sediment detection in urine sediment by light microscopy" /> <statusCode code="completed" /> <effectiveTime value="800466850462" /> <value unit="" xsi: type="PQ" value="MOD TRAN URATES" /> <interpretationCode codeSystem= "local" code="*" /> <referenceRange> <observationRange> <text>NRG</text> </observationRange> </ referenceRange> </observation> </component> </organizer> </entry > <entry> <organizer moodCode="EVN" classCode="BATTERY"> <templateId root="16.840.1.856405.10..22.4.1" /> <id nullFlavor="NA" /> <code codeSystem="local" code="600-7" displayName="Bacterial blood culture" /> < statusCode code="completed" /> <component> <observation moodCode= "EVN" classCode="OBS"> <templateId root="10.03.840.1.963220.06.06.22.4.2 " /> <id nullFlavor="NA" /> <code codeSystem="local" code="600 -7" displayName="Bacterial blood culture" /> <statusCode code= "completed" /> <effectiveTime value="689328401816" /> <value unit="" xsi:type="PQ" value="NG" /> <referenceRange> < observationRange> <text>NRG</text> </observationRange> </referenceRange> </observation> </component> </ organizer> </entry> <entry> <organizer moodCode="EVN" classCode="BATTERY"> <templateId root="10.03.840.1.497933.06.06.22.4.1" /> <id nullFlavor= "NA" /> <code codeSystem="local" code="10576-4" displayName="Methicillin resistant Staphylococcus aureus (MRSA) screening culture" /> <statusCode code="completed" /> <component> <observation moodCode="EVN" classCode="OBS"> <templateId root="16.840.1.226004.10..4.2" /> <id nullFlavor="NA" /> <code codeSystem="local" code="MRSARES " displayName="MRSA SCREEN RESULT" /> <statusCode code="completed" /> <effectiveTime value="122716564690" /> <value unit="" xsi:type ="PQ" value="MRSA ISOLATED" /> <interpretationCode codeSystem="local" code="*" /> <referenceRange> <observationRange> <text>NRG</text> </observationRange> </referenceRange> </observation> </component> </organizer> </entry> <entry> < organizer moodCode="EVN" classCode="BATTERY"> <templateId root= "2.16.840.1.873179.10.20.22.4.1" /> <id nullFlavor="NA" /> <code codeSystem="local" code="65584-0" displayName="Capillary blood glucose measurement by glucometer (mass/volume)" /> <statusCode code="completed" / > <component> <observation moodCode="EVN" classCode="OBS"> <templateId root="2.16.840.1.893782.10.20.22.4.2" /> <id nullFlavor="NA " /> <code codeSystem="local" code="08396-4" displayName="Capillary blood glucose measurement by glucometer (mass/volume)" /> <statusCode code="completed" /> <effectiveTime value="580801473393" /> < value unit="mg/dL" xsi:type="PQ" value="106" /> <referenceRange> <observationRange> <text>70-110</text> </ observationRange> </referenceRange> </observation> </ component> </organizer> </entry> <entry> <organizer moodCode="EVN" classCode="BATTERY"> <templateId root="2.16.840.1.112506.10.20.22.4.1" /> <id nullFlavor="NA" /> <code codeSystem="local" code="04681-9" displayName="Capillary blood glucose measurement by glucometer (mass/volume)" / > <statusCode code="completed" /> <component> <observation moodCode="EVN" classCode="OBS"> <templateId root= "216.840.1.299737.10.20.22.4.2" /> <id nullFlavor="NA" /> < code codeSystem="local" code="14523-2" displayName="Capillary blood glucose measurement by glucometer (mass/volume)" /> <statusCode code="completed " /> <effectiveTime value="879800299932" /> <value unit="mg/dL " xsi:type="PQ" value="215" /> <interpretationCode codeSystem="local" code="" /> <referenceRange> <observationRange> <text>70-110</text> </observationRange> </referenceRange > </observation> </component> </organizer> </entry> <entry> <organizer moodCode="EVN" classCode="BATTERY"> <templateId root= "216.840.1.348938.10.20.22.4.1" /> <id nullFlavor="NA" /> <code codeSystem="local" code="64384-0" displayName="Complete blood count (CBC) with automated white blood cell (WBC) differential" /> <statusCode code= "completed" /> <component> <observation moodCode="EVN" classCode= "OBS"> <templateId root="216.840.1.004395.10.20.22.4.2" /> < id nullFlavor="NA" /> <code codeSystem="local" code="6690-2" displayName="Blood leukocytes automated count (number/volume)" /> < statusCode code="completed" /> <effectiveTime value="954342227357" /> <value unit="10*3/uL" xsi:type="PQ" value="15.6" /> < interpretationCode codeSystem="local" code="" /> <referenceRange> <observationRange> <text>4.3-11.0</text> </ observationRange> </referenceRange> </observation> </ component> <component> <observation moodCode="EVN" classCode="OBS"> <templateId root="216.840.1.391910.10..22.4.2" /> <id nullFlavor="NA" /> <code codeSystem="local" code="789-8" displayName= "Blood erythrocytes automated count (number/volume)" /> <statusCode code="completed" /> <effectiveTime value="204750802276" /> < value unit="10*6/uL" xsi:type="PQ" value="3.58" /> <interpretationCode codeSystem="local" code="" /> <referenceRange> < observationRange> <text>4.35-5.85</text> </ observationRange> </referenceRange> </observation> </ component> <component> <observation moodCode="EVN" classCode="OBS"> <templateId root="16.840.1.265878.10...4.2" /> <id nullFlavor="NA" /> <code codeSystem="local" code="01738-7" displayName= "Venous blood hemoglobin measurement (mass/volume)" /> <statusCode code ="completed" /> <effectiveTime value="120912174079" /> <value unit="g/dL" xsi:type="PQ" value="8.7" /> <interpretationCode codeSystem ="local" code="" /> <referenceRange> <observationRange> <text>11.5-16.0</text> </observationRange> </ referenceRange> </observation> </component> <component> <observation moodCode="EVN" classCode="OBS"> <templateId root= "2.840.1.101947.06.06.22.4.2" /> <id nullFlavor="NA" /> < code codeSystem="local" code="47976-6" displayName="Blood hematocrit (volume fraction)" /> <statusCode code="completed" /> <effectiveTime value="" /> <value unit="%" xsi:type="PQ" value="27" / > <interpretationCode codeSystem="local" code="" /> < referenceRange> <observationRange> <text>35-52</text> </observationRange> </referenceRange> </observation> </component> <component> <observation moodCode="EVN" classCode= "OBS"> <templateId root="216.840.1.522822.10.4.2" /> < id nullFlavor="NA" /> <code codeSystem="local" code="787-2" displayName ="Automated erythrocyte mean corpuscular volume" /> <statusCode code= "completed" /> <effectiveTime value="" /> <value unit="[foz_us]" xsi:type="PQ" value="76" /> <interpretationCode codeSystem="local" code="" /> <referenceRange> < observationRange> <text>80-99</text> </observationRange > </referenceRange> </observation> </component> < component> <observation moodCode="EVN" classCode="OBS"> < templateId root="216.840.1.511641.10..4.2" /> <id nullFlavor="NA " /> <code codeSystem="local" code="785-6" displayName="Automated erythrocyte mean corpuscular hemoglobin (mass per erythrocyte)" /> < statusCode code="completed" /> <effectiveTime value="507457765890" /> <value unit="pg" xsi:type="PQ" value="24" /> < interpretationCode codeSystem="local" code="" /> <referenceRange> <observationRange> <text>25-34</text> </ observationRange> </referenceRange> </observation> </ component> <component> <observation moodCode="EVN" classCode="OBS"> <templateId root="2.16.840.1.630343.10...4.2" /> <id nullFlavor="NA" /> <code codeSystem="local" code="786-4" displayName= "Automated erythrocyte mean corpuscular hemoglobin concentration measurement ( mass/volume)" /> <statusCode code="completed" /> < effectiveTime value="251111265690" /> <value unit="g/dL" xsi:type="PQ" value="32" /> <referenceRange> <observationRange> <text>32-36</text> </observationRange> </referenceRange > </observation> </component> <component> <observation moodCode="EVN" classCode="OBS"> <templateId root= "216.840.1.931041.10...4.2" /> <id nullFlavor="NA" /> < code codeSystem="local" code="788-0" displayName="Automated erythrocyte distribution width ratio" /> <statusCode code="completed" /> < effectiveTime value="481086671700" /> <value unit="%" xsi:type="PQ " value="17.2" /> <interpretationCode codeSystem="local" code="" /> <referenceRange> <observationRange> <text>10.0- 14.5</text> </observationRange> </referenceRange> </ observation> </component> <component> <observation moodCode= "EVN" classCode="OBS"> <templateId root="2.16.840.1.257798.10.20.22.4.2 " /> <id nullFlavor="NA" /> <code codeSystem="local" code="777 -3" displayName="Automated blood platelet count (count/volume)" /> < statusCode code="completed" /> <effectiveTime value="778814620382" /> <value unit="10*3/uL" xsi:type="PQ" value="444" /> < interpretationCode codeSystem="local" code="" /> <referenceRange> <observationRange> <text>130-400</text> </ observationRange> </referenceRange> </observation> </ component> <component> <observation moodCode="EVN" classCode="OBS"> <templateId root="216.840.1.715563.10..22.4.2" /> <id nullFlavor="NA" /> <code codeSystem="local" code="99475-3" displayName= "Automated blood platelet mean volume measurement" /> <statusCode code= "completed" /> <effectiveTime value="961008046690" /> <value unit="[foz_us]" xsi:type="PQ" value="9.1" /> <referenceRange> <observationRange> <text>7.4-10.4</text> </ observationRange> </referenceRange> </observation> </ component> <component> <observation moodCode="EVN" classCode="OBS"> <templateId root="16.840.1.190008.10.20.22.4.2" /> <id nullFlavor="NA" /> <code codeSystem="local" code="770-8" displayName= "Automated blood neutrophils/100 leukocytes" /> <statusCode code= "completed" /> <effectiveTime value="371031994384" /> <value unit="%" xsi:type="PQ" value="83" /> <interpretationCode codeSystem ="local" code="" /> <referenceRange> <observationRange> <text>42-75</text> </observationRange> </ referenceRange> </observation> </component> <component> <observation moodCode="EVN" classCode="OBS"> <templateId root= "2.16.840.1.146157.10.20.22.4.2" /> <id nullFlavor="NA" /> < code codeSystem="local" code="736-9" displayName="Automated blood lymphocytes/ 100 leukocytes" /> <statusCode code="completed" /> < effectiveTime value="525453444172" /> <value unit="%" xsi:type="PQ " value="6" /> <interpretationCode codeSystem="local" code="" /> <referenceRange> <observationRange> <text>12-44</ text> </observationRange> </referenceRange> </ observation> </component> <component> <observation moodCode= "EVN" classCode="OBS"> <templateId root="216.840.1.958589.1022.4.2 " /> <id nullFlavor="NA" /> <code codeSystem="local" code= "17140-9" displayName="Blood monocytes/100 leukocytes" /> <statusCode code="completed" /> <effectiveTime value="236848111188" /> < value unit="%" xsi:type="PQ" value="10" /> <referenceRange> <observationRange> <text>0-12</text> </ observationRange> </referenceRange> </observation> </ component> <component> <observation moodCode="EVN" classCode="OBS"> <templateId root="2.16.840.1.726625.10.20.22.4.2" /> <id nullFlavor="NA" /> <code codeSystem="local" code="713-8" displayName= "Automated blood eosinophils/100 leukocytes" /> <statusCode code= "completed" /> <effectiveTime value="712762446668" /> <value unit="%" xsi:type="PQ" value="0" /> <referenceRange> < observationRange> <text>0-10</text> </observationRange> </referenceRange> </observation> </component> < component> <observation moodCode="EVN" classCode="OBS"> < templateId root="2.16.840.1.510760.10..22.4.2" /> <id nullFlavor="NA " /> <code codeSystem="local" code="706-2" displayName="Automated blood basophils/100 leukocytes" /> <statusCode code="completed" /> <effectiveTime value="487726502357" /> <value unit="%" xsi: type="PQ" value="0" /> <referenceRange> <observationRange> <text>0-10</text> </observationRange> </ referenceRange> </observation> </component> <component> <observation moodCode="EVN" classCode="OBS"> <templateId root= "2.16.840.1.447552.10..22.4.2" /> <id nullFlavor="NA" /> < code codeSystem="local" code="751-8" displayName="Blood neutrophils automated count (number/volume)" /> <statusCode code="completed" /> < effectiveTime value="629023601164" /> <value unit="10*3" xsi:type="PQ" value="13.0" /> <interpretationCode codeSystem="local" code="" /> <referenceRange> <observationRange> <text>1.8-7.8 </text> </observationRange> </referenceRange> </ observation> </component> <component> <observation moodCode= "EVN" classCode="OBS"> <templateId root="216.840.1.045208.10.2022.4.2 " /> <id nullFlavor="NA" /> <code codeSystem="local" code="731 -0" displayName="Blood lymphocytes automated count (number/volume)" /> <statusCode code="completed" /> <effectiveTime value="805975017310" /> <value unit="10*3" xsi:type="PQ" value="1.0" /> < referenceRange> <observationRange> <text>1.0-4.0</text> </observationRange> </referenceRange> </observation > </component> <component> <observation moodCode="EVN" classCode="OBS"> <templateId root="10.03.840.1.454921.22.4.2" /> <id nullFlavor="NA" /> <code codeSystem="local" code="742-7" displayName="Blood monocytes automated count (number/volume)" /> < statusCode code="completed" /> <effectiveTime value="462303459381" /> <value unit="10*3" xsi:type="PQ" value="1.5" /> < interpretationCode codeSystem="local" code="" /> <referenceRange> <observationRange> <text>0.0-1.0</text> </ observationRange> </referenceRange> </observation> </ component> <component> <observation moodCode="EVN" classCode="OBS"> <templateId root="16.840.1.040705.10.2022.4.2" /> <id nullFlavor="NA" /> <code codeSystem="local" code="711-2" displayName= "Automated eosinophil count" /> <statusCode code="completed" /> <effectiveTime value="288921491860" /> <value unit="10*3/uL" xsi: type="PQ" value="0.0" /> <referenceRange> <observationRange > <text>0.0-0.3</text> </observationRange> </ referenceRange> </observation> </component> <component> <observation moodCode="EVN" classCode="OBS"> <templateId root= "10.03.840.1.072970.10..4.2" /> <id nullFlavor="NA" /> < code codeSystem="local" code="704-7" displayName="Automated blood basophil count (count/volume)" /> <statusCode code="completed" /> < effectiveTime value="721912333935" /> <value unit="10*3/uL" xsi:type= "PQ" value="0.0" /> <referenceRange> <observationRange> <text>0.0-0.1</text> </observationRange> </ referenceRange> </observation> </component> </organizer> </entry > <entry> <organizer moodCode="EVN" classCode="BATTERY"> <templateId root="10.03.840.1.190071.10..4.1" /> <id nullFlavor="NA" /> <code codeSystem="local" code="55685-7" displayName="Comprehensive metabolic panel" / > <statusCode code="completed" /> <component> <observation moodCode="EVN" classCode="OBS"> <templateId root= "10.03.840.1.665847.10.22.4.2" /> <id nullFlavor="NA" /> < code codeSystem="local" code="2951-2" displayName="Serum or plasma sodium measurement (moles/volume)" /> <statusCode code="completed" /> <effectiveTime value="210675750279" /> <value unit="mmol/L" xsi:type= "PQ" value="132" /> <interpretationCode codeSystem="local" code="" / > <referenceRange> <observationRange> <text>135 -145</text> </observationRange> </referenceRange> </ observation> </component> <component> <observation moodCode= "EVN" classCode="OBS"> <templateId root="2.16.840.1.913142.10.20.22.4.2 " /> <id nullFlavor="NA" /> <code codeSystem="local" code= "2823-3" displayName="Serum or plasma potassium measurement (moles/volume)" /> <statusCode code="completed" /> <effectiveTime value= "499053228876" /> <value unit="mmol/L" xsi:type="PQ" value="3.9" /> <referenceRange> <observationRange> <text>3.6-5.0 </text> </observationRange> </referenceRange> </ observation> </component> <component> <observation moodCode= "EVN" classCode="OBS"> <templateId root="2.16.840.1.989990.10.20.22.4.2 " /> <id nullFlavor="NA" /> <code codeSystem="local" code= "2075-0" displayName="Serum or plasma chloride measurement (moles/volume)" /> <statusCode code="completed" /> <effectiveTime value= "652811892778" /> <value unit="mmol/L" xsi:type="PQ" value="104" /> <referenceRange> <observationRange> <text>98-107< /text> </observationRange> </referenceRange> </ observation> </component> <component> <observation moodCode= "EVN" classCode="OBS"> <templateId root="216.840.1.111361.10.20.22.4.2 " /> <id nullFlavor="NA" /> <code codeSystem="local" code= "2028-04" displayName="Carbon dioxide" /> <statusCode code="completed" / > <effectiveTime value="" /> <value unit="mmol/L" xsi:type="PQ" value="18" /> <interpretationCode codeSystem="local" code ="" /> <referenceRange> <observationRange> < text>21-32</text> </observationRange> </referenceRange> </observation> </component> <component> <observation moodCode="EVN" classCode="OBS"> <templateId root= "16.840.1.408142.10..22.4.2" /> <id nullFlavor="NA" /> < code codeSystem="local" code="61273-4" displayName="Serum or plasma anion gap determination (moles/volume)" /> <statusCode code="completed" /> <effectiveTime value="" /> <value unit="mmol/L" xsi: type="PQ" value="10" /> <referenceRange> <observationRange> <text>5-14</text> </observationRange> </ referenceRange> </observation> </component> <component> <observation moodCode="EVN" classCode="OBS"> <templateId root= "2.16.840.1.567231.10..22.4.2" /> <id nullFlavor="NA" /> < code codeSystem="local" code="3094-0" displayName="Serum or plasma urea nitrogen measurement (mass/volume)" /> <statusCode code="completed" /> <effectiveTime value="" /> <value unit="mg/dL" xsi:type="PQ" value="29" /> <interpretationCode codeSystem="local" code ="" /> <referenceRange> <observationRange> < text>7-18</text> </observationRange> </referenceRange> </observation> </component> <component> <observation moodCode="EVN" classCode="OBS"> <templateId root= "10.03.840.1.242658.10.20.22.4.2" /> <id nullFlavor="NA" /> < code codeSystem="local" code="2160-0" displayName="Serum or plasma creatinine measurement (mass/volume)" /> <statusCode code="completed" /> <effectiveTime value="664464543057" /> <value unit="mg/dL" xsi:type="PQ " value="1.49" /> <interpretationCode codeSystem="local" code="" /> <referenceRange> <observationRange> <text>0.60- 1.30</text> </observationRange> </referenceRange> </ observation> </component> <component> <observation moodCode= "EVN" classCode="OBS"> <templateId root="10.03.840.1.274734.10..22.4.2 " /> <id nullFlavor="NA" /> <code codeSystem="local" code= "3097-3" displayName="Serum or plasma urea nitrogen/creatinine mass ratio" /> <statusCode code="completed" /> <effectiveTime value= "968409259166" /> <value unit="" xsi:type="PQ" value="19" /> < referenceRange> <observationRange> <text>NRG</text> </observationRange> </referenceRange> </observation> </component> <component> <observation moodCode="EVN" classCode= "OBS"> <templateId root="840.1.790605.10.20.22.4.2" /> < id nullFlavor="NA" /> <code codeSystem="local" code="11771-7" displayName="Serum or plasma creatinine measurement with calculation of estimated glomerular filtration rate" /> <statusCode code="completed" / > <effectiveTime value="485974995106" /> <value unit="" xsi: type="PQ" value="36" /> <referenceRange> <observationRange> <text>NRG</text> </observationRange> </ referenceRange> </observation> </component> <component> <observation moodCode="EVN" classCode="OBS"> <templateId root= "16.840.1.961898.10.20.22.4.2" /> <id nullFlavor="NA" /> < code codeSystem="local" code="2345-7" displayName="Serum or plasma glucose measurement (mass/volume)" /> <statusCode code="completed" /> <effectiveTime value="414284459345" /> <value unit="mg/dL" xsi:type="PQ " value="134" /> <interpretationCode codeSystem="local" code="" /> <referenceRange> <observationRange> <text>70-105 </text> </observationRange> </referenceRange> </ observation> </component> <component> <observation moodCode= "EVN" classCode="OBS"> <templateId root="16.840.1.489012.10.20.22.4.2 " /> <id nullFlavor="NA" /> <code codeSystem="local" code= "33320-9" displayName="Serum or plasma calcium measurement (mass/volume)" /> <statusCode code="completed" /> <effectiveTime value= "270139792596" /> <value unit="mg/dL" xsi:type="PQ" value="8.7" /> <referenceRange> <observationRange> <text>8.5-10.1 </text> </observationRange> </referenceRange> </ observation> </component> <component> <observation moodCode= "EVN" classCode="OBS"> <templateId root="2.16.840.1.971611.10.20.22.4.2 " /> <id nullFlavor="NA" /> <code codeSystem="local" code= "1974-09" displayName="Serum or plasma total bilirubin measurement (mass/volume) " /> <statusCode code="completed" /> <effectiveTime value= "609490787168" /> <value unit="mg/dL" xsi:type="PQ" value="0.4" /> <referenceRange> <observationRange> <text>0.1-1.0< /text> </observationRange> </referenceRange> </ observation> </component> <component> <observation moodCode= "EVN" classCode="OBS"> <templateId root="216.840.1.922971.10..22.4.2 " /> <id nullFlavor="NA" /> <code codeSystem="local" code= "6768-6" displayName="Serum or plasma alkaline phosphatase measurement ( enzymatic activity/volume)" /> <statusCode code="completed" /> <effectiveTime value="140914800178" /> <value unit="U/L" xsi:type="PQ " value="88" /> <referenceRange> <observationRange> <text>40-136</text> </observationRange> </ referenceRange> </observation> </component> <component> <observation moodCode="EVN" classCode="OBS"> <templateId root= "2.16.840.1.587146.10.20.22.4.2" /> <id nullFlavor="NA" /> < code codeSystem="local" code="192" displayName="Serum or plasma aspartate aminotransferase measurement (enzymatic activity/volume)" /> < statusCode code="completed" /> <effectiveTime value="704289971535" /> <value unit="U/L" xsi:type="PQ" value="11" /> <referenceRange > <observationRange> <text>5-34</text> </ observationRange> </referenceRange> </observation> </ component> <component> <observation moodCode="EVN" classCode="OBS"> <templateId root="2.16.840.1.488439.10.20.22.4.2" /> <id nullFlavor="NA" /> <code codeSystem="local" code="1746" displayName= "Serum or plasma alanine aminotransferase measurement (enzymatic activity/volume )" /> <statusCode code="completed" /> <effectiveTime value= "861704299729" /> <value unit="U/L" xsi:type="PQ" value="8" /> <referenceRange> <observationRange> <text>0-55</text> </observationRange> </referenceRange> </observation > </component> <component> <observation moodCode="EVN" classCode="OBS"> <templateId root="2.16.840.1.228908.10.20.22.4.2" /> <id nullFlavor="NA" /> <code codeSystem="local" code="2885-2" displayName="Serum or plasma protein measurement (mass/volume)" /> < statusCode code="completed" /> <effectiveTime value="792807515629" /> <value unit="g/dL" xsi:type="PQ" value="6.7" /> < referenceRange> <observationRange> <text>6.4-8.2</text> </observationRange> </referenceRange> </observation > </component> <component> <observation moodCode="EVN" classCode="OBS"> <templateId root="2.16.840.1.225509.10.20.22.4.2" /> <id nullFlavor="NA" /> <code codeSystem="local" code="1751-7" displayName="Serum or plasma albumin measurement (mass/volume)" /> < statusCode code="completed" /> <effectiveTime value="644332304482" /> <value unit="g/dL" xsi:type="PQ" value="3.5" /> < referenceRange> <observationRange> <text>3.2-4.5</text> </observationRange> </referenceRange> </observation > </component> </organizer> </entry> <entry> <organizer moodCode= "EVN" classCode="BATTERY"> <templateId root="2.16.840.1.133200.10.20.22.4.1 " /> <id nullFlavor="NA" /> <code codeSystem="local" code="18485-2" displayName="PT panel in platelet poor plasma by coagulation assay" /> < statusCode code="completed" /> <component> <observation moodCode= "EVN" classCode="OBS"> <templateId root="2.16.840.1.230552.10.20.22.4.2 " /> <id nullFlavor="NA" /> <code codeSystem="local" code= "5902-2" displayName="Prothrombin time (PT) in platelet poor plasma by coagulation assay" /> <statusCode code="completed" /> < effectiveTime value="644017299091" /> <value unit="s" xsi:type="PQ" value="14.2" /> <referenceRange> <observationRange> <text>12.2-14.7</text> </observationRange> </ referenceRange> </observation> </component> <component> <observation moodCode="EVN" classCode="OBS"> <templateId root= "2.16.840.1.655876.10.20.22.4.2" /> <id nullFlavor="NA" /> < code codeSystem="local" code="21480-3" displayName="INR in platelet poor plasma or blood by coagulation assay" /> <statusCode code="completed" /> <effectiveTime value="580600370511" /> <value unit="" xsi:type="PQ " value="1.1" /> <referenceRange> <observationRange> <text>0.8-1.4</text> </observationRange> </ referenceRange> </observation> </component> </organizer> </entry > <entry> <organizer moodCode="EVN" classCode="BATTERY"> <templateId root="2.16.840.1.279225.10.20.22.4.1" /> <id nullFlavor="NA" /> <code codeSystem="local" code="2777-1" displayName="Serum or plasma phosphate measurement (mass/volume)" /> <statusCode code="completed" /> < component> <observation moodCode="EVN" classCode="OBS"> < templateId root="2.16.840.1.376664.10.20.22.4.2" /> <id nullFlavor="NA " /> <code codeSystem="local" code="2777-1" displayName="Serum or plasma phosphate measurement (mass/volume)" /> <statusCode code= "completed" /> <effectiveTime value="961860022339" /> <value unit="mg/dL" xsi:type="PQ" value="2.0" /> <interpretationCode codeSystem="local" code="" /> <referenceRange> < observationRange> <text>2.3-4.7</text> </ observationRange> </referenceRange> </observation> </ component> </organizer> </entry> <entry> <organizer moodCode="EVN" classCode="BATTERY"> <templateId root="16.840.1.937264.10..22.4.1" /> <id nullFlavor="NA" /> <code codeSystem="local" code="" displayName="Magnesium" /> <statusCode code="completed" /> <component > <observation moodCode="EVN" classCode="OBS"> <templateId root= "10.03.840.1.009121.06.06.22.4.2" /> <id nullFlavor="NA" /> < code codeSystem="local" code="" displayName="Magnesium" /> < statusCode code="completed" /> <effectiveTime value="288093970211" /> <value unit="mg/dL" xsi:type="PQ" value="1.8" /> < referenceRange> <observationRange> <text>1.8-2.4</text> </observationRange> </referenceRange> </observation > </component> </organizer> </entry> <entry> <organizer moodCode= "EVN" classCode="BATTERY"> <templateId root="10.03.840.1.774665.22.4.1 " /> <id nullFlavor="NA" /> <code codeSystem="local" code="30311-3" displayName="Capillary blood glucose measurement by glucometer (mass/volume)" / > <statusCode code="completed" /> <component> <observation moodCode="EVN" classCode="OBS"> <templateId root= "16.840.1.849138.10..22.4.2" /> <id nullFlavor="NA" /> < code codeSystem="local" code="37060-1" displayName="Capillary blood glucose measurement by glucometer (mass/volume)" /> <statusCode code="completed " /> <effectiveTime value="277410479123" /> <value unit="mg/dL " xsi:type="PQ" value="156" /> <interpretationCode codeSystem="local" code="" /> <referenceRange> <observationRange> <text>70-110</text> </observationRange> </referenceRange > </observation> </component> </organizer> </entry> <entry> <organizer moodCode="EVN" classCode="BATTERY"> <templateId root= "2.16.840.1.865369.10.20.22.4.1" /> <id nullFlavor="NA" /> <code codeSystem="local" code="94516-6" displayName="Capillary blood glucose measurement by glucometer (mass/volume)" /> <statusCode code="completed" / > <component> <observation moodCode="EVN" classCode="OBS"> <templateId root="2.16.840.1.605154.10.20.22.4.2" /> <id nullFlavor="NA " /> <code codeSystem="local" code="20036-7" displayName="Capillary blood glucose measurement by glucometer (mass/volume)" /> <statusCode code="completed" /> <effectiveTime value="339112653680" /> < value unit="mg/dL" xsi:type="PQ" value="128" /> <interpretationCode codeSystem="local" code="" /> <referenceRange> < observationRange> <text>70-110</text> </observationRange > </referenceRange> </observation> </component> </ organizer> </entry> <entry> <organizer moodCode="EVN" classCode="BATTERY"> <templateId root="10.03.840.1.729104.10...4.1" /> <id nullFlavor= "NA" /> <code codeSystem="local" code="86511-7" displayName="Capillary blood glucose measurement by glucometer (mass/volume)" /> <statusCode code= "completed" /> <component> <observation moodCode="EVN" classCode= "OBS"> <templateId root="10.03.840.1.254211.06.06.22.4.2" /> < id nullFlavor="NA" /> <code codeSystem="local" code="71817-4" displayName="Capillary blood glucose measurement by glucometer (mass/volume)" / > <statusCode code="completed" /> <effectiveTime value= "751383028942" /> <value unit="mg/dL" xsi:type="PQ" value="290" /> <interpretationCode codeSystem="local" code="" /> < referenceRange> <observationRange> <text>70-110</text> </observationRange> </referenceRange> </observation> </component> </organizer> </entry> <entry> <organizer moodCode= "EVN" classCode="BATTERY"> <templateId root="840.1.112752.10..4.1 " /> <id nullFlavor="NA" /> <code codeSystem="local" code="56104-0" displayName="Capillary blood glucose measurement by glucometer (mass/volume)" / > <statusCode code="completed" /> <component> <observation moodCode="EVN" classCode="OBS"> <templateId root= "10.03.840.1.892321.10..22.4.2" /> <id nullFlavor="NA" /> < code codeSystem="local" code="48505-6" displayName="Capillary blood glucose measurement by glucometer (mass/volume)" /> <statusCode code="completed " /> <effectiveTime value="862483515063" /> <value unit="mg/dL " xsi:type="PQ" value="272" /> <interpretationCode codeSystem="local" code="" /> <referenceRange> <observationRange> <text>70-110</text> </observationRange> </referenceRange > </observation> </component> </organizer> </entry> <entry> <organizer moodCode="EVN" classCode="BATTERY"> <templateId root= "2.16.840.1.553040.10.20.22.4.1" /> <id nullFlavor="NA" /> <code codeSystem="local" code="27788-4" displayName="Complete blood count (CBC) with automated white blood cell (WBC) differential" /> <statusCode code= "completed" /> <component> <observation moodCode="EVN" classCode= "OBS"> <templateId root="216.840.1.210061.10.20.22.4.2" /> < id nullFlavor="NA" /> <code codeSystem="local" code="6690-2" displayName="Blood leukocytes automated count (number/volume)" /> < statusCode code="completed" /> <effectiveTime value="912357128571" /> <value unit="10*3/uL" xsi:type="PQ" value="13.9" /> < interpretationCode codeSystem="local" code="" /> <referenceRange> <observationRange> <text>4.3-11.0</text> </ observationRange> </referenceRange> </observation> </ component> <component> <observation moodCode="EVN" classCode="OBS"> <templateId root="216.840.1.447969.10.20.22.4.2" /> <id nullFlavor="NA" /> <code codeSystem="local" code="789-8" displayName= "Blood erythrocytes automated count (number/volume)" /> <statusCode code="completed" /> <effectiveTime value="" /> < value unit="10*6/uL" xsi:type="PQ" value="3.58" /> <interpretationCode codeSystem="local" code="" /> <referenceRange> < observationRange> <text>4.35-5.85</text> </ observationRange> </referenceRange> </observation> </ component> <component> <observation moodCode="EVN" classCode="OBS"> <templateId root="216.840.1.084608.10.20.22.4.2" /> <id nullFlavor="NA" /> <code codeSystem="local" code="08101-6" displayName= "Venous blood hemoglobin measurement (mass/volume)" /> <statusCode code ="completed" /> <effectiveTime value="" /> <value unit="g/dL" xsi:type="PQ" value="8.9" /> <interpretationCode codeSystem ="local" code="" /> <referenceRange> <observationRange> <text>11.5-16.0</text> </observationRange> </ referenceRange> </observation> </component> <component> <observation moodCode="EVN" classCode="OBS"> <templateId root= "16.840.1.282279.10.20.22.4.2" /> <id nullFlavor="NA" /> < code codeSystem="local" code="94678-1" displayName="Blood hematocrit (volume fraction)" /> <statusCode code="completed" /> <effectiveTime value="" /> <value unit="%" xsi:type="PQ" value="27" / > <interpretationCode codeSystem="local" code="" /> < referenceRange> <observationRange> <text>35-52</text> </observationRange> </referenceRange> </observation> </component> <component> <observation moodCode="EVN" classCode= "OBS"> <templateId root="2.16.840.1.438911.10...4.2" /> < id nullFlavor="NA" /> <code codeSystem="local" code="787-2" displayName ="Automated erythrocyte mean corpuscular volume" /> <statusCode code= "completed" /> <effectiveTime value="569670413107" /> <value unit="[foz_us]" xsi:type="PQ" value="75" /> <interpretationCode codeSystem="local" code="" /> <referenceRange> < observationRange> <text>80-99</text> </observationRange > </referenceRange> </observation> </component> < component> <observation moodCode="EVN" classCode="OBS"> < templateId root="2.16.840.1.447281.10...4.2" /> <id nullFlavor="NA " /> <code codeSystem="local" code="785-6" displayName="Automated erythrocyte mean corpuscular hemoglobin (mass per erythrocyte)" /> < statusCode code="completed" /> <effectiveTime value="505207838362" /> <value unit="pg" xsi:type="PQ" value="25" /> <referenceRange> <observationRange> <text>25-34</text> </ observationRange> </referenceRange> </observation> </ component> <component> <observation moodCode="EVN" classCode="OBS"> <templateId root="2.16.840.1.032068.06.06.22.4.2" /> <id nullFlavor="NA" /> <code codeSystem="local" code="786-4" displayName= "Automated erythrocyte mean corpuscular hemoglobin concentration measurement ( mass/volume)" /> <statusCode code="completed" /> < effectiveTime value="722779560003" /> <value unit="g/dL" xsi:type="PQ" value="33" /> <referenceRange> <observationRange> <text>32-36</text> </observationRange> </referenceRange > </observation> </component> <component> <observation moodCode="EVN" classCode="OBS"> <templateId root= "216.840.1.133181.10.2022.4.2" /> <id nullFlavor="NA" /> < code codeSystem="local" code="788-0" displayName="Automated erythrocyte distribution width ratio" /> <statusCode code="completed" /> < effectiveTime value="903957040704" /> <value unit="%" xsi:type="PQ " value="17.4" /> <interpretationCode codeSystem="local" code="" /> <referenceRange> <observationRange> <text>10.0- 14.5</text> </observationRange> </referenceRange> </ observation> </component> <component> <observation moodCode= "EVN" classCode="OBS"> <templateId root="216.840.1.206306.10.20.22.4.2 " /> <id nullFlavor="NA" /> <code codeSystem="local" code="777 -3" displayName="Automated blood platelet count (count/volume)" /> < statusCode code="completed" /> <effectiveTime value="392596802224" /> <value unit="10*3/uL" xsi:type="PQ" value="477" /> < interpretationCode codeSystem="local" code="" /> <referenceRange> <observationRange> <text>130-400</text> </ observationRange> </referenceRange> </observation> </ component> <component> <observation moodCode="EVN" classCode="OBS"> <templateId root="2.16.840.1.416072.10.20.22.4.2" /> <id nullFlavor="NA" /> <code codeSystem="local" code="68471-3" displayName= "Automated blood platelet mean volume measurement" /> <statusCode code= "completed" /> <effectiveTime value="039684372228" /> <value unit="[[facility]]" xsi:type="PQ" value="8.9" /> <referenceRange> <observationRange> <text>7.4-10.4</text> </ observationRange> </referenceRange> </observation> </ component> <component> <observation moodCode="EVN" classCode="OBS"> <templateId root="216.840.1.977426.10..22.4.2" /> <id nullFlavor="NA" /> <code codeSystem="local" code="770-8" displayName= "Automated blood neutrophils/100 leukocytes" /> <statusCode code= "completed" /> <effectiveTime value="832208588814" /> <value unit="%" xsi:type="PQ" value="88" /> <interpretationCode codeSystem ="local" code="" /> <referenceRange> <observationRange> <text>42-75</text> </observationRange> </ referenceRange> </observation> </component> <component> <observation moodCode="EVN" classCode="OBS"> <templateId root= "216.840.1.074615.06.06.22.4.2" /> <id nullFlavor="NA" /> < code codeSystem="local" code="736-9" displayName="Automated blood lymphocytes/ 100 leukocytes" /> <statusCode code="completed" /> < effectiveTime value="649240416582" /> <value unit="%" xsi:type="PQ " value="4" /> <interpretationCode codeSystem="local" code="" /> <referenceRange> <observationRange> <text>12-44</ text> </observationRange> </referenceRange> </ observation> </component> <component> <observation moodCode= "EVN" classCode="OBS"> <templateId root="2.16.840.1.498220.06.06.22.4.2 " /> <id nullFlavor="NA" /> <code codeSystem="local" code= "05336-5" displayName="Blood monocytes/100 leukocytes" /> <statusCode code="completed" /> <effectiveTime value="133735414321" /> < value unit="%" xsi:type="PQ" value="7" /> <referenceRange> <observationRange> <text>0-12</text> </ observationRange> </referenceRange> </observation> </ component> <component> <observation moodCode="EVN" classCode="OBS"> <templateId root="2.16.840.1.625687.06.06.22.4.2" /> <id nullFlavor="NA" /> <code codeSystem="local" code="713-8" displayName= "Automated blood eosinophils/100 leukocytes" /> <statusCode code= "completed" /> <effectiveTime value="396190348021" /> <value unit="%" xsi:type="PQ" value="1" /> <referenceRange> < observationRange> <text>0-10</text> </observationRange> </referenceRange> </observation> </component> < component> <observation moodCode="EVN" classCode="OBS"> < templateId root="216.840.1.505211.10.20.22.4.2" /> <id nullFlavor="NA " /> <code codeSystem="local" code="706-2" displayName="Automated blood basophils/100 leukocytes" /> <statusCode code="completed" /> <effectiveTime value="613631140283" /> <value unit="%" xsi: type="PQ" value="0" /> <referenceRange> <observationRange> <text>0-10</text> </observationRange> </ referenceRange> </observation> </component> <component> <observation moodCode="EVN" classCode="OBS"> <templateId root= "216.840.1.841353.10.22.4.2" /> <id nullFlavor="NA" /> < code codeSystem="local" code="751-8" displayName="Blood neutrophils automated count (number/volume)" /> <statusCode code="completed" /> < effectiveTime value="268872218479" /> <value unit="10*3" xsi:type="PQ" value="12.2" /> <interpretationCode codeSystem="local" code="" /> <referenceRange> <observationRange> <text>1.8-7.8 </text> </observationRange> </referenceRange> </ observation> </component> <component> <observation moodCode= "EVN" classCode="OBS"> <templateId root="216.840.1.863514.10.20.22.4.2 " /> <id nullFlavor="NA" /> <code codeSystem="local" code="731 -0" displayName="Blood lymphocytes automated count (number/volume)" /> <statusCode code="completed" /> <effectiveTime value="043552349676" /> <value unit="10*3" xsi:type="PQ" value="0.6" /> < interpretationCode codeSystem="local" code="" /> <referenceRange> <observationRange> <text>1.0-4.0</text> </ observationRange> </referenceRange> </observation> </ component> <component> <observation moodCode="EVN" classCode="OBS"> <templateId root="2.16.840.1.695611.10...4.2" /> <id nullFlavor="NA" /> <code codeSystem="local" code="742-7" displayName= "Blood monocytes automated count (number/volume)" /> <statusCode code= "completed" /> <effectiveTime value="543251331531" /> <value unit="10*3" xsi:type="PQ" value="1.0" /> <referenceRange> < observationRange> <text>0.0-1.0</text> </ observationRange> </referenceRange> </observation> </ component> <component> <observation moodCode="EVN" classCode="OBS"> <templateId root="2.16.840.1.224477.10..22.4.2" /> <id nullFlavor="NA" /> <code codeSystem="local" code="711-2" displayName= "Automated eosinophil count" /> <statusCode code="completed" /> <effectiveTime value="801253381569" /> <value unit="10*3/uL" xsi: type="PQ" value="0.1" /> <referenceRange> <observationRange > <text>0.0-0.3</text> </observationRange> </ referenceRange> </observation> </component> <component> <observation moodCode="EVN" classCode="OBS"> <templateId root= "2.16.840.1.081268.10..22.4.2" /> <id nullFlavor="NA" /> < code codeSystem="local" code="704-7" displayName="Automated blood basophil count (count/volume)" /> <statusCode code="completed" /> < effectiveTime value="368621878233" /> <value unit="10*3/uL" xsi:type= "PQ" value="0.0" /> <referenceRange> <observationRange> <text>0.0-0.1</text> </observationRange> </ referenceRange> </observation> </component> </organizer> </entry > <entry> <organizer moodCode="EVN" classCode="BATTERY"> <templateId root="2.16.840.1.966179.10..22.4.1" /> <id nullFlavor="NA" /> <code codeSystem="local" code="95811-8" displayName="Comprehensive metabolic panel" / > <statusCode code="completed" /> <component> <observation moodCode="EVN" classCode="OBS"> <templateId root= "2.16.840.1.243558.10.20.22.4.2" /> <id nullFlavor="NA" /> < code codeSystem="local" code="2951-2" displayName="Serum or plasma sodium measurement (moles/volume)" /> <statusCode code="completed" /> <effectiveTime value="820485528643" /> <value unit="mmol/L" xsi:type= "PQ" value="128" /> <interpretationCode codeSystem="local" code="" / > <referenceRange> <observationRange> <text>135 -145</text> </observationRange> </referenceRange> </ observation> </component> <component> <observation moodCode= "EVN" classCode="OBS"> <templateId root="216.840.1.807300.10..22.4.2 " /> <id nullFlavor="NA" /> <code codeSystem="local" code= "2823-3" displayName="Serum or plasma potassium measurement (moles/volume)" /> <statusCode code="completed" /> <effectiveTime value= "100126435683" /> <value unit="mmol/L" xsi:type="PQ" value="3.5" /> <interpretationCode codeSystem="local" code="" /> < referenceRange> <observationRange> <text>3.6-5.0</text> </observationRange> </referenceRange> </observation > </component> <component> <observation moodCode="EVN" classCode="OBS"> <templateId root="16.840.1.148589.10..22.4.2" /> <id nullFlavor="NA" /> <code codeSystem="local" code="2075-0" displayName="Serum or plasma chloride measurement (moles/volume)" /> < statusCode code="completed" /> <effectiveTime value="590412769960" /> <value unit="mmol/L" xsi:type="PQ" value="96" /> < interpretationCode codeSystem="local" code="" /> <referenceRange> <observationRange> <text>98-107</text> </ observationRange> </referenceRange> </observation> </ component> <component> <observation moodCode="EVN" classCode="OBS"> <templateId root="216.840.1.776423.10.20.22.4.2" /> <id nullFlavor="NA" /> <code codeSystem="local" code="2028-04" displayName= "Carbon dioxide" /> <statusCode code="completed" /> < effectiveTime value="858498833034" /> <value unit="mmol/L" xsi:type="PQ " value="20" /> <interpretationCode codeSystem="local" code="" /> <referenceRange> <observationRange> <text>21-32</ text> </observationRange> </referenceRange> </ observation> </component> <component> <observation moodCode= "EVN" classCode="OBS"> <templateId root="2.16.840.1.155443.10.20.22.4.2 " /> <id nullFlavor="NA" /> <code codeSystem="local" code= "37479-9" displayName="Serum or plasma anion gap determination (moles/volume)" / > <statusCode code="completed" /> <effectiveTime value= "637563848375" /> <value unit="mmol/L" xsi:type="PQ" value="12" /> <referenceRange> <observationRange> <text>5-14</ text> </observationRange> </referenceRange> </ observation> </component> <component> <observation moodCode= "EVN" classCode="OBS"> <templateId root="2.16.840.1.551873.10.20.22.4.2 " /> <id nullFlavor="NA" /> <code codeSystem="local" code= "3094-0" displayName="Serum or plasma urea nitrogen measurement (mass/volume)" / > <statusCode code="completed" /> <effectiveTime value= "108362750747" /> <value unit="mg/dL" xsi:type="PQ" value="11" /> <referenceRange> <observationRange> <text>7-18</ text> </observationRange> </referenceRange> </ observation> </component> <component> <observation moodCode= "EVN" classCode="OBS"> <templateId root="2.16.840.1.552702.10.20.22.4.2 " /> <id nullFlavor="NA" /> <code codeSystem="local" code= "2160-0" displayName="Serum or plasma creatinine measurement (mass/volume)" /> <statusCode code="completed" /> <effectiveTime value= "682736485934" /> <value unit="mg/dL" xsi:type="PQ" value="0.86" /> <referenceRange> <observationRange> <text>0.60- 1.30</text> </observationRange> </referenceRange> </ observation> </component> <component> <observation moodCode= "EVN" classCode="OBS"> <templateId root="2.16.840.1.616140.10..22.4.2 " /> <id nullFlavor="NA" /> <code codeSystem="local" code= "3097-3" displayName="Serum or plasma urea nitrogen/creatinine mass ratio" /> <statusCode code="completed" /> <effectiveTime value= "097819774071" /> <value unit="" xsi:type="PQ" value="13" /> < referenceRange> <observationRange> <text>NRG</text> </observationRange> </referenceRange> </observation> </component> <component> <observation moodCode="EVN" classCode= "OBS"> <templateId root="216.840.1.991106.10.20.22.4.2" /> < id nullFlavor="NA" /> <code codeSystem="local" code="38049-1" displayName="Serum or plasma creatinine measurement with calculation of estimated glomerular filtration rate" /> <statusCode code="completed" / > <effectiveTime value="667300955451" /> <value unit="" xsi: type="PQ" value=">" /> <referenceRange> <observationRange > <text>NRG</text> </observationRange> </ referenceRange> </observation> </component> <component> <observation moodCode="EVN" classCode="OBS"> <templateId root= "216.840.1.970873.10.20.22.4.2" /> <id nullFlavor="NA" /> < code codeSystem="local" code="2345-7" displayName="Serum or plasma glucose measurement (mass/volume)" /> <statusCode code="completed" /> <effectiveTime value="310676122480" /> <value unit="mg/dL" xsi:type="PQ " value="232" /> <interpretationCode codeSystem="local" code="" /> <referenceRange> <observationRange> <text>70-105 </text> </observationRange> </referenceRange> </ observation> </component> <component> <observation moodCode= "EVN" classCode="OBS"> <templateId root="10.03.840.1.322456.10..22.4.2 " /> <id nullFlavor="NA" /> <code codeSystem="local" code= "96903-0" displayName="Serum or plasma calcium measurement (mass/volume)" /> <statusCode code="completed" /> <effectiveTime value= "807905104209" /> <value unit="mg/dL" xsi:type="PQ" value="9.2" /> <referenceRange> <observationRange> <text>8.5-10.1 </text> </observationRange> </referenceRange> </ observation> </component> <component> <observation moodCode= "EVN" classCode="OBS"> <templateId root="216.840.1.525024.10.20..4.2 " /> <id nullFlavor="NA" /> <code codeSystem="local" code= "1974-09" displayName="Serum or plasma total bilirubin measurement (mass/volume) " /> <statusCode code="completed" /> <effectiveTime value= "573488065004" /> <value unit="mg/dL" xsi:type="PQ" value="0.4" /> <referenceRange> <observationRange> <text>0.1-1.0< /text> </observationRange> </referenceRange> </ observation> </component> <component> <observation moodCode= "EVN" classCode="OBS"> <templateId root="2.16.840.1.916215.10...4.2 " /> <id nullFlavor="NA" /> <code codeSystem="local" code= "67686" displayName="Serum or plasma alkaline phosphatase measurement ( enzymatic activity/volume)" /> <statusCode code="completed" /> <effectiveTime value="401708826973" /> <value unit="U/L" xsi:type="PQ " value="97" /> <referenceRange> <observationRange> <text>40-136</text> </observationRange> </ referenceRange> </observation> </component> <component> <observation moodCode="EVN" classCode="OBS"> <templateId root= "2.16.840.1.646376.10...4.2" /> <id nullFlavor="NA" /> < code codeSystem="local" code="192" displayName="Serum or plasma aspartate aminotransferase measurement (enzymatic activity/volume)" /> < statusCode code="completed" /> <effectiveTime value="437930485222" /> <value unit="U/L" xsi:type="PQ" value="13" /> <referenceRange > <observationRange> <text>5-34</text> </ observationRange> </referenceRange> </observation> </ component> <component> <observation moodCode="EVN" classCode="OBS"> <templateId root="2.16.840.1.943779.10.20.22.4.2" /> <id nullFlavor="NA" /> <code codeSystem="local" code="1742-6" displayName= "Serum or plasma alanine aminotransferase measurement (enzymatic activity/volume )" /> <statusCode code="completed" /> <effectiveTime value= "754946804123" /> <value unit="U/L" xsi:type="PQ" value="13" /> <referenceRange> <observationRange> <text>0-55</text > </observationRange> </referenceRange> </observation > </component> <component> <observation moodCode="EVN" classCode="OBS"> <templateId root="2.16.840.1.488407.10.22.4.2" /> <id nullFlavor="NA" /> <code codeSystem="local" code="2885-2" displayName="Serum or plasma protein measurement (mass/volume)" /> < statusCode code="completed" /> <effectiveTime value="763330197955" /> <value unit="g/dL" xsi:type="PQ" value="7.5" /> < referenceRange> <observationRange> <text>6.4-8.2</text> </observationRange> </referenceRange> </observation > </component> <component> <observation moodCode="EVN" classCode="OBS"> <templateId root="2.16.840.1.128818.10.20.22.4.2" /> <id nullFlavor="NA" /> <code codeSystem="local" code="1751-7" displayName="Serum or plasma albumin measurement (mass/volume)" /> < statusCode code="completed" /> <effectiveTime value="913736222267" /> <value unit="g/dL" xsi:type="PQ" value="3.8" /> < referenceRange> <observationRange> <text>3.2-4.5</text> </observationRange> </referenceRange> </observation > </component> </organizer> </entry> <entry> <organizer moodCode= "EVN" classCode="BATTERY"> <templateId root="16.840.1.493941.10.20.22.4.1 " /> <id nullFlavor="NA" /> <code codeSystem="local" code="2777-1" displayName="Serum or plasma phosphate measurement (mass/volume)" /> < statusCode code="completed" /> <component> <observation moodCode= "EVN" classCode="OBS"> <templateId root="16.840.1.179302.10.20.22.4.2 " /> <id nullFlavor="NA" /> <code codeSystem="local" code= "2777-1" displayName="Serum or plasma phosphate measurement (mass/volume)" /> <statusCode code="completed" /> <effectiveTime value= "617481247325" /> <value unit="mg/dL" xsi:type="PQ" value="1.5" /> <interpretationCode codeSystem="local" code="" /> < referenceRange> <observationRange> <text>2.3-4.7</text> </observationRange> </referenceRange> </observation > </component> </organizer> </entry> <entry> <organizer moodCode= "EVN" classCode="BATTERY"> <templateId root="10.03.840.1.539955.10.20.22.4.1 " /> <id nullFlavor="NA" /> <code codeSystem="local" code="" displayName="Magnesium" /> <statusCode code="completed" /> <component > <observation moodCode="EVN" classCode="OBS"> <templateId root= "16.840.1.894596.10..22.4.2" /> <id nullFlavor="NA" /> < code codeSystem="local" code="" displayName="Magnesium" /> < statusCode code="completed" /> <effectiveTime value="475797082672" /> <value unit="mg/dL" xsi:type="PQ" value="1.7" /> < interpretationCode codeSystem="local" code="" /> <referenceRange> <observationRange> <text>1.8-2.4</text> </ observationRange> </referenceRange> </observation> </ component> </organizer> </entry> <entry> <organizer moodCode="EVN" classCode="BATTERY"> <templateId root="10.03.840.1.009135.10..22.4.1" /> <id nullFlavor="NA" /> <code codeSystem="local" code="37579-8" displayName="Serum or plasma lithium measurement (moles/volume)" /> < statusCode code="completed" /> <component> <observation moodCode= "EVN" classCode="OBS"> <templateId root="10.03.840.1.810161.10..22.4.2 " /> <id nullFlavor="NA" /> <code codeSystem="local" code= "48761-1" displayName="BNP level" /> <statusCode code="completed" /> <effectiveTime value="324349144818" /> <value unit="pg/mL" xsi: type="PQ" value="556.4" /> <interpretationCode codeSystem="local" code= "" /> <referenceRange> <observationRange> < text><100.0</text> </observationRange> </referenceRange> </observation> </component> </organizer> </entry> <entry> < organizer moodCode="EVN" classCode="BATTERY"> <templateId root= "216.840.1.276990.10.20.22.4.1" /> <id nullFlavor="NA" /> <code codeSystem="local" code="47732-5" displayName="Capillary blood glucose measurement by glucometer (mass/volume)" /> <statusCode code="completed" / > <component> <observation moodCode="EVN" classCode="OBS"> <templateId root="216.840.1.904218.10.20.22.4.2" /> <id nullFlavor="NA " /> <code codeSystem="local" code="86790-9" displayName="Capillary blood glucose measurement by glucometer (mass/volume)" /> <statusCode code="completed" /> <effectiveTime value="182882635227" /> < value unit="mg/dL" xsi:type="PQ" value="158" /> <interpretationCode codeSystem="local" code="" /> <referenceRange> < observationRange> <text>70-110</text> </observationRange > </referenceRange> </observation> </component> </ organizer> </entry> <entry> <organizer moodCode="EVN" classCode="BATTERY"> <templateId root="216.840.1.943339.10.20.22.4.1" /> <id nullFlavor= "NA" /> <code codeSystem="local" code="ORD3" displayName="Comprehensive Metabolic Panel" /> <statusCode code="completed" /> <component> <observation moodCode="EVN" classCode="OBS"> <templateId root= "16.840.1.828432.10..22.4.2" /> <id nullFlavor="NA" /> < code codeSystem="local" code="Res44" displayName="Albumin" /> < statusCode code="completed" /> <effectiveTime value="" /> <value unit="g/dL" xsi:type="PQ" value="4.1" /> < referenceRange> <observationRange> <text>3.6-5.1</text> </observationRange> </referenceRange> </observation > </component> <component> <observation moodCode="EVN" classCode="OBS"> <templateId root="16.840.1.095306.10...4.2" /> <id nullFlavor="NA" /> <code codeSystem="local" code="Res45" displayName="ALP" /> <statusCode code="completed" /> < effectiveTime value="" /> <value unit="U/L" xsi:type="PQ" value="95" /> <referenceRange> <observationRange> <text>35-130</text> </observationRange> </referenceRange > </observation> </component> <component> <observation moodCode="EVN" classCode="OBS"> <templateId root= "10.03.840.1.696445.10..22.4.2" /> <id nullFlavor="NA" /> < code codeSystem="local" code="Res46" displayName="ALT" /> <statusCode code="completed" /> <effectiveTime value="" /> < value unit="U/L" xsi:type="PQ" value="10" /> <referenceRange> <observationRange> <text>6-45</text> </ observationRange> </referenceRange> </observation> </ component> <component> <observation moodCode="EVN" classCode="OBS"> <templateId root="216.840.1.124005.10.22.4.2" /> <id nullFlavor="NA" /> <code codeSystem="local" code="Res61" displayName= "Anion Gap" /> <statusCode code="completed" /> <effectiveTime value="" /> <value unit="" xsi:type="PQ" value="16" /> <interpretationCode codeSystem="local" code="H" /> < referenceRange> <observationRange> <text>6-14</text> </observationRange> </referenceRange> </observation> </component> <component> <observation moodCode="EVN" classCode= "OBS"> <templateId root="216.840.1.969421...4.2" /> < id nullFlavor="NA" /> <code codeSystem="local" code="Res48" displayName ="AST" /> <statusCode code="completed" /> <effectiveTime value ="" /> <value unit="U/L" xsi:type="PQ" value="12" /> <referenceRange> <observationRange> <text>2-40</text > </observationRange> </referenceRange> </observation > </component> <component> <observation moodCode="EVN" classCode="OBS"> <templateId root="216.840.1.537424.10.22.4.2" /> <id nullFlavor="NA" /> <code codeSystem="local" code="Res26" displayName="BUN" /> <statusCode code="completed" /> < effectiveTime value="" /> <value unit="mg/dL" xsi:type="PQ " value="13" /> <referenceRange> <observationRange> <text>5-25</text> </observationRange> </referenceRange > </observation> </component> <component> <observation moodCode="EVN" classCode="OBS"> <templateId root= "10.03.840.1.106444.10.20.22.4.2" /> <id nullFlavor="NA" /> < code codeSystem="local" code="Res5" displayName="Calcium" /> < statusCode code="completed" /> <effectiveTime value="" /> <value unit="mg/dL" xsi:type="PQ" value="9.8" /> < referenceRange> <observationRange> <text>8.3-10.4</text > </observationRange> </referenceRange> </observation > </component> <component> <observation moodCode="EVN" classCode="OBS"> <templateId root="840.1.895779.1022.4.2" /> <id nullFlavor="NA" /> <code codeSystem="local" code="Res21" displayName="Chloride" /> <statusCode code="completed" /> < effectiveTime value="" /> <value unit="mmol/L" xsi:type="PQ " value="100" /> <referenceRange> <observationRange> <text>95-114</text> </observationRange> </ referenceRange> </observation> </component> <component> <observation moodCode="EVN" classCode="OBS"> <templateId root= "840.1.004234.1022.4.2" /> <id nullFlavor="NA" /> < code codeSystem="local" code="Res49" displayName="CO2" /> <statusCode code="completed" /> <effectiveTime value="" /> < value unit="mEq/L" xsi:type="PQ" value="22" /> <referenceRange> <observationRange> <text>22-33</text> </ observationRange> </referenceRange> </observation> </ component> <component> <observation moodCode="EVN" classCode="OBS"> <templateId root="216.840.1.710666.10.22.4.2" /> <id nullFlavor="NA" /> <code codeSystem="local" code="Wvn491" displayName= "Creat" /> <statusCode code="completed" /> <effectiveTime value="" /> <value unit="mg/dL" xsi:type="PQ" value="0.79" /> <referenceRange> <observationRange> <text> 0.50-1.50</text> </observationRange> </referenceRange> </observation> </component> <component> <observation moodCode="EVN" classCode="OBS"> <templateId root= "216.840.1.766836.10..4.2" /> <id nullFlavor="NA" /> < code codeSystem="local" code="Scr488" displayName="eGFR" /> < statusCode code="completed" /> <effectiveTime value="" /> <value unit="mL/min/1.73m2" xsi:type="PQ" value="76" /> < referenceRange> <observationRange> <text>>59</text> </observationRange> </referenceRange> </observation> </component> <component> <observation moodCode="EVN" classCode ="OBS"> <templateId root="216.840.1.713942.10..22.4.2" /> < id nullFlavor="NA" /> <code codeSystem="local" code="Res7" displayName= "Globulin" /> <statusCode code="completed" /> <effectiveTime value="" /> <value unit="g/dL" xsi:type="PQ" value="3.5" / > <referenceRange> <observationRange> <text>2.3 -3.5</text> </observationRange> </referenceRange> </ observation> </component> <component> <observation moodCode= "EVN" classCode="OBS"> <templateId root="[id number] " /> <id nullFlavor="NA" /> <code codeSystem="local" code= "Res60" displayName="Glucose" /> <statusCode code="completed" /> <effectiveTime value="" /> <value unit="mg/dL" xsi:type ="PQ" value="104" /> <referenceRange> <observationRange> <text>70-110</text> </observationRange> </ referenceRange> </observation> </component> <component> <observation moodCode="EVN" classCode="OBS"> <templateId root= "[id number]" /> <id nullFlavor="NA" /> < code codeSystem="local" code="Res52" displayName="Osmo" /> <statusCode code="completed" /> <effectiveTime value="" /> < value unit="" xsi:type="PQ" value="278" /> <interpretationCode codeSystem="local" code="L" /> <referenceRange> < observationRange> <text>280-295</text> </ observationRange> </referenceRange> </observation> </ component> <component> <observation moodCode="EVN" classCode="OBS"> <templateId root="216.840.1.938593.10..22.4.2" /> <id nullFlavor="NA" /> <code codeSystem="local" code="Res20" displayName= "Potassium" /> <statusCode code="completed" /> <effectiveTime value="" /> <value unit="mmol/L" xsi:type="PQ" value="4.4" /> <referenceRange> <observationRange> <text> 3.5-5.3</text> </observationRange> </referenceRange> </observation> </component> <component> <observation moodCode= "EVN" classCode="OBS"> <templateId root="[id number] " /> <id nullFlavor="NA" /> <code codeSystem="local" code= "Res19" displayName="Sodium" /> <statusCode code="completed" /> <effectiveTime value="" /> <value unit="mmol/L" xsi:type ="PQ" value="134" /> <referenceRange> <observationRange> <text>134-148</text> </observationRange> </ referenceRange> </observation> </component> <component> <observation moodCode="EVN" classCode="OBS"> <templateId root= "16.840.1.229161.10..22.4.2" /> <id nullFlavor="NA" /> < code codeSystem="local" code="Res51" displayName="TBil" /> <statusCode code="completed" /> <effectiveTime value="" /> < value unit="mg/dL" xsi:type="PQ" value="< 0.2" /> <referenceRange> <observationRange> <text /> </ observationRange> </referenceRange> </observation> </ component> <component> <observation moodCode="EVN" classCode="OBS"> <templateId root="[id number]2.4.2" /> <id nullFlavor="NA" /> <code codeSystem="local" code="Res24" displayName= "TP" /> <statusCode code="completed" /> <effectiveTime value= "[id number]" /> <value unit="g/dL" xsi:type="PQ" value="7.6" /> <referenceRange> <observationRange> <text>6.0-8.3</ text> </observationRange> </referenceRange> </ observation> </component> </organizer> </entry></section> Encounters ACCT No. Visit Date/Time Discharge Status Pt. Type Provider Facility Loc./Unit Complaint [id number] 11/18/2016 11:00:00 11/18/2016 12:00:00 DIS Outpatient [id number] 02/20/2016 22:36:00 02/20/2016 23:59:59 CLS [facility] ED [id number] 04/22/2017 19:08:00 04/22/2017 22:06:00 DIS Emergency Garrett Fam DO [facility] W.RADHA [id number] 04/13/2017 04:38:00 04/13/2017 07:45:00 DIS Emergency Bogdan HAYES, Rosalino Sands [facility] WEDS [id number] 03/19/2017 01:00:00 03/20/2017 16:25:00 DIS Inpatient Luzma HAYES, Balbina Tang [facility] W.4CE [id number] 02/14/2017 09:49:00 02/14/2017 10:04:00 DIS Emergency Morena HAYES, Lynn Sorto [facility].EDRC [id number] 11/26/2016 04:40:00 11/26/2016 09:12:00 DIS [facility] [id number] 11/22/2016 22:01:00 11/23/2016 01:06:00 DIS Emergency Rodger HAYES, Richard Horton [facility] [id number] 07/11/2016 09:15:00 07/11/2016 09:15:00 DIS Outpatient Davon HAYES, Devin Rey [facility] [id number] 05/30/2016 21:12:00 05/30/2016 23:53:00 DIS Emergency Dani HAYES, Moe [facility] W.RADHA [id number] 05/27/2016 22:09:00 05/28/2016 01:19:00 DIS Emergency Yony HAYES, [facility].RADHA [id number] 04/27/2016 17:07:00 04/27/2016 19:44:00 DIS Emergency [facility] [id number] 12/18/2015 11:03:00 12/18/2015 15:40:00 DIS [facility] [id number] 10/11/2015 11:14:00 10/11/2015 15:19:00 DIS Emergency Lissa HAYES, [facility] W.RADHA [id number] 08/24/2015 19:41:00 08/24/2015 21:57:00 DIS Emergency Pedro BLOOM, [facility] [id number] 04/12/2015 05:57:00 04/12/2015 06:58:00 DIS Emergency Maverick [facility] [id number] 03/09/2015 18:41:00 03/09/2015 20:37:00 DIS Emergency Bethany [facility], [facility] [id number] 02/22/2015 12:15:00 02/24/2015 20:45:00 DIS Inpatient [facility] [id number] 01/30/2016 08:56:00 Document Registration [id number] 09/18/2016 07:52:00 09/18/2016 10:50:00 DIS Outpatient Gayathri Mohan Via [facility] DS Gastro egdp [id number] 09/09/2016 12:57:00 09/09/2016 23:59:00 DIS Outpatient Gayathri Mohan Via [facility] Mur [place] Chronic GERD Former Prateek pt. [id number] 10/18/2015 08:54:00 10/18/2015 10:55:00 DIS Outpatient Fidencio Chandra Via [facility] DS Gastro COMBOP [id number] 10/04/2015 13:44:00 10/04/2015 23:59:00 DIS Outpatient Fidencio Chandra Via [facility] [place] NPV HERNIA COLON SCREEN [id number] 11/19/2017 06:19:00 Document Registration [id number] 04/04/2017 15:05:24 ACT Document Registration [id number] 06/17/2017 11:14:00 06/17/2017 [facility]59[id number] 01/13/2018 17:00:00 01/13/2018 23:59:00 DIS Outpatient RENY COLLAZO [id number] 11/18/2017 12:26:00 11/18/2017 23:59:00 DIS Outpatient RENY COLLAZO [id number] 10/15/2017 15:00:00 10/15/2017 23:59:00 DIS Outpatient RENY COLLAZO [id number] 10/15/2017 13:32:00 10/15/2017 23:59:00 DIS Outpatient RENY COLLAZO [id number] 04/04/2016 15:19:49 04/04/2016 23:59:59 CLS Outpatient Max Brooke [id number] 05/25/2017 11:12:00 05/25/2017 16:47:00 DIS Emergency Nickel,Nenitai [facility] ED eder bell [id number] 12/05/2016 11:18:00 12/05/2016 23:59:00 DIS Outpatient Serena Morfin [facility] Pulm Func J45.40- Asthma [id number] 10/17/2016 10:28:00 10/17/2016 23:59:00 DIS Outpatient Mays Ronald Via [facility] Mammo Screening [id number] 07/04/2015 15:21:00 07/04/2015 23:59:00 DIS Outpatient April Rolle MD Via [facility] Diag Rad Chronic Back Pain [id number] 06/29/2015 09:51:00 06/29/2015 12:17:00 DIS Emergency Alton Vasquez DO [facility] ED n/v [id number] 09/10/2016 05:15:48 Document Registration [id number] 06/30/2015 05:16:36 Document Registration [id number] 03/30/2016 13:00:00 03/30/2016 23:59:[facility] [id number] 05/28/2017 13:34:03 05/28/2017 15:05: 09 DIS Outpatient SERENA MORFIN N.P.[id number] 02/27/2017 14:36:37 02/27/2017 15:11: 50 DIS Outpatient JAYA WHITTAKER [id number] 12/12/2016 13:42:04 12/12/2016 14:34: 38 DIS Outpatient SERENA MORFIN N.P.[id number] 11/14/2016 13:50:37 11/14/2016 14:01: 08 DIS Outpatient SERENA MORFIN N.P.[id number] 10/09/2016 08:09:59 10/09/2016 09:52: 28 DIS Outpatient SERENA MORFIN N.P.[id number] 09/19/2016 09:01:43 09/19/2016 10:16: 48 DIS Outpatient SERENA MORFIN N.P.[id number] 07/04/2016 10:25:30 07/04/2016 11:15: 08 DIS Outpatient SERENA MORFIN N.P.[id number] 05/20/2016 15:11:54 05/20/2016 16:24: 35 DIS Outpatient SERENA MORFIN N.P. [id number] 06/17/2017 11:49:00 Document Registration [id number] 06/26/2017 10:15:00 06/26/2017 23:59:59 CLS Outpatient CHRISTIN [facility] [id number] 06/23/2017 11:28:00 06/23/2017 23:59:59 CLS Outpatient CHRISTIN [facility] [id number] 06/16/2017 10:24:00 06/16/2017 23:59:59 CLS Outpatient CHRISTIN [facility] [id number] 07/23/2017 11:21:00 Document Registration [id number] 06/19/2017 15:15:00 Document Registration [id number] 06/17/2017 11:17:00 06/17/2017 23:59:59 CLS Emergency YESSENIA BERRIOS MD [facility] ED [id number] 03/30/2016 15:03:00 03/31/2016 13:21:00 DIS Inpatient BRISSA SO DO [facility] 3SE [id number] 02/20/2016 22:39:00 02/21/2016 01:40:00 DIS Emergency DIXON ROTHMAN MD [facility] ED [id number] 03/09/2018 14:25:00 03/09/2018 23:59:59 CLS Outpatient SILVIA MAURICE MD Via [facility] ONC [id number] 11/27/2017 13:39:00 02/25/2018 00:01:00 DIS Outpatient SILVIA MAURICE MD [facility] ONC [id number] 02/19/2018 09:12:00 02/19/2018 13:22:00 DIS Outpatient RENY COLLAZO MD [facility] REHAB CERVICAL DDD AND NECK PAIN [id number] 02/11/2018 14:42:00 02/11/2018 23:59:59 CLS Outpatient RENY COLLAZO MD Via [facility] RAD LEFT PNEUMONIA [id number] 01/04/2018 13:45:00 2018 15:00:00 DIS Inpatient LILY DEAL MD Via [facility] 4TH SEVERE SEPSIS [id number] 11/24/2017 08:32:00 11/24/2017 23:59:59 CLS Outpatient VALE HAYES, RENY Sorto Via [facility] RAD SCREENING CERVILAGIA [id number] 12/12/2016 15:44:01 12/12/2016 23:59:59 CLS Outpatient
[2018-04-19] MEDS ORDERED: cefTRIAXone 1 GM/10 ML for IV (ROCEPHIN) IV ONE (15:20)
[2018-04-19] MEDS ORDERED: SULF1TAB35 PO (15:27)
--- NOTE | 2018-04-19 15:28 | ED Integumentary General ---
General Chief Complaint: Skin/Wound Problems Stated Complaint: BITE ON LT LEG Nursing Triage Note: TO ROOM HAS AREA ON BACK OF L THIGH POSSIBLE BITE. History of Present Illness Date Seen by Provider: Apr 19, 2018 Time Seen by Provider: 15:10 Initial Comments Patient is a 53-year-old female presents to the emergency room with complaints of an abscess to her left posterior thigh. She reports that she noticed this 5 days ago and has been using bread soaked in milk to the area to "draw out the infection". The wound is open and draining. She denies fevers or any other complaints. Timing/Duration: other (5 days) Severity: mild Location: extremities (posterior left thigh) Associated Symptoms: denies symptoms Allergies and Home Medications Allergies Coded Allergies: No Known Drug Allergies (Unverified , 01/04/18) Home Medications Albuterol Sulfate 1 Puff Puff, 2 PUFF INH Q4H PRN for SHORTNESS OF BREATH, ( Reported) Baclofen 10 Mg Tablet, 10 MG PO TID, (Reported) Budesonide/Formoterol Fumarate 10.2 Gm Hfa.aer.ad, 2 PUFF INH BID, (Reported) Cefdinir 300 Mg Capsule, 1 CAP PO twice a day Prescribed by: NARCISO GONZALES on 01/06/18 1346 Dexlansoprazole 60 Mg Cap..bp, 60 MG PO DAILY, (Reported) Diclofenac Sodium 75 Mg Tablet.dr, 75 MG PO BID, (Reported) Lisinopril 10 Mg Tablet, 10 MG PO DAILY, (Reported) Lurasidone HCl 20 Mg Tablet, 20 MG PO HS, (Reported) Meloxicam 15 Mg Tablet, 15 MG PO HS, (Reported) Metformin HCl 500 Mg Tablet, 500 MG PO BID, (Reported) Metoprolol Tartrate 25 Mg Tablet, 12.5 MG PO BID, (Reported) TAKES 1/2 (25MG) TABLETS Montelukast Sodium 10 Mg Tablet, 10 MG PO DAILY, (Reported) [place] 3 Polyunsat Fatty Acids 1,000 Mg Cap, 1,000 MG PO DAILY, (Reported) Ondansetron 8 Mg Tab.rapdis, 8 MG PO TID PRN for NAUSEA/VOMITING-1ST LINE, ( Reported) Prazosin HCl 1 Mg Capsule, 2 MG PO HS, (Reported) TAKES 2 (1MG) CAPSULES Ranitidine HCl 300 Mg Tablet, 300 MG PO HS, (Reported) Sertraline HCl 100 Mg Tablet, 200 MG PO HS, (Reported) TAKES 2 (100MG) TABLETS Simvastatin 20 Mg Tablet, 20 MG PO HS, (Reported) Sulfamethoxazole/Trimethoprim 1 Each Tablet, 1 EACH PO BID Prescribed by: KELLY BERRY on 04/19/18 1527 Patient Home Medication List Home Medication List Reviewed: Yes Review of Systems Review of Systems Constitutional: see HPI; No chills, No fever Skin: see HPI, other (wound that is draining on the posterior left thigh) All Other Systems Reviewed Negative Unless Noted: Yes Past Ixhxmnq-Iygyue-Wryioo Hx Past Med/Social Hx: Reviewed Nursing Past Med/Soc Hx Patient Social History Alcohol Use: Denies Use Recreational Drug Use: No Smoking Status: Never a Smoker Recent Foreign Travel: No Contact w/Someone Who Travel: No Recent Infectious Disease Expo: No Recent Hopitalizations: No Immunizations Up To Date Tetanus Booster (TDap): Unknown Seasonal Allergies Seasonal Allergies: No Past Medical History Surgeries: Yes Hysterectomy, Orthopedic Respiratory: Yes COPD Cardiac: Yes Hypertension Neurological: No Genitourinary: No Gastrointestinal: Yes Hiatal Hernia Musculoskeletal: Yes Scoliosis, Chronic Back Pain Endocrine: Yes Diabetes, Non-Insulin dep HEENT: No Cancer: No Integumentary: No Family Medical History Reviewed Nursing Family Hx Unable to obtain due to AMS Physical Exam Vital Signs Vital Signs - First Documented 04/19/18 14:54 Temp 96.7 Pulse 63 Resp 18 B/P (MAP) 140/70 (93) Pulse Ox 100 O2 Delivery Room Air Capillary Refill : Less Than 3 Seconds General Appearance: WD/WN, no apparent distress Cardiovascular: normal peripheral pulses, regular rate, rhythm, no edema, no gallop, no JVD, no murmur Respiratory: chest non-tender, lungs clear, normal breath sounds, no respiratory distress, no accessory muscle use Skin: normal color, warm/dry Skin Problem Location: lower extremities ( left posterior thigh) Skin Problem Character: abscess (the patient has an abscess to the left posterior thigh that is open and draining. There is no fluctuation noted. The area is thickened and indurated. There is an area of 10 x 14 cm of erythema and a 2 x 2 centimeter central punctum area), erythema, thickening Progress/Results/Core Measures Results/Orders My Orders Orders - KELLY BERRY Wound Culture (04/19/18 15:14) Ceftriaxone For Im Use (Rocephin For Im (04/19/18 15:30) Ceftriaxone For Iv Use (Rocephin For I (04/19/18 15:20) Vital Signs/I&O 04/19/18 04/19/18 14:54 16:00 Temp 96.7 Pulse 63 63 Resp 18 18 B/P (MAP) 140/70 (93) 142/70 Pulse Ox 100 100 O2 Delivery Room Air Blood Pressure Mean: 93 Progress Progress Note : Time: 15:10 Progress Note I have seen and evaluated the patient. She has received a gram of Rocephin and will be placed on Bactrim outpatient. I believe this is a form of staph. She has an appointment scheduled with Dr. Reny Rodriguez on 04/21/18. I have marked the area with a skin pen. She agrees with plan to discharge. Return precautions were given. Departure Impression Primary Impression: Abscess Additional Impression: Cellulitis Disposition: HOME, SELF-CARE Condition: Stable/Unchanged Departure-Patient Inst. Decision time for Depature: 15:25 Referrals: RENY RODRIGUEZ MD (PCP/Family) Primary Care Physician Patient Instructions: Cellulitis (Skin Infection), Adult (DC), Skin Abscess Add. Discharge Instructions: Do not use the milk and bread method anymore. Take medications as directed. You may use ibuprofen and Tylenol as needed for pain. Keep the wound covered loosely with gauze to allow it to drain. Keep your appointment with Dr. Reny Rodriguez as scheduled on Friday04/22/18 for a recheck. Return back to the emergency room for any worsening symptoms or concerns as needed. All discharge instructions reviewed with patient and/or family. Voiced understanding. Scripts Sulfamethoxazole/Trimethoprim (Bactrim Ds Tablet) 1 Each Tablet 1 EACH PO BID for 10 Days, #20 TAB Prov: KELLY BERRY 04/19/18 KELLY BERRY Apr 19, 2018 15:28
[2018-04-19] MEDS ORDERED: cefTRIAXone 1,000 MG/2.86 ml vial (IM ONLY) IM SCH (15:30)
[2018-04-19 16:00] VITALS: BP 142/70
== END 2018-04-19 15:55 | disposition home or self-care (01) ==
LOC: EDUNIT# 14:15 → ER 14:17
DX: L02.416 Cutaneous abscess of left lower limb (principal); L03.116 Cellulitis of left lower limb; J44.9 Chronic obstructive pulmonary disease, unspecified; I10 Essential (primary) hypertension; E11.9 Type 2 diabetes mellitus without complications; Z87.19 Personal history of other diseases of the digestive system; Z79.51 Long term (current) use of inhaled steroids; Z79.84 Long term (current) use of oral hypoglycemic drugs; Z90.710 Acquired absence of both cervix and uterus
CPT/HCPCS: 87070; 87077; 87186; 87205; 96372; 99284

== ENCOUNTER 2018-04-20 14:25 | Emergency (ER) | payer MEDICAID ==
[~2018-04-20] VITALS: Ht 160 cm; Wt 68.0 kg
[~2018-04-20 14:25] MED LIST changes: +SULF1TAB35 PO
--- OUTSIDE RECORDS SUMMARY | 2018-04-20 14:36 | XMS REPORT | Continuity of Care Document ---
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 <templateId root="840.1.242960.22.4.2 " /> <id nullFlavor="NA" /> <code codeSystem="local" code="PLT " displayName="PLATELET COUNT" /> <statusCode code="completed" /> <effectiveTime value="" /> <value unit="k/cumm" xsi: type="PQ" value="542" /> <interpretationCode codeSystem="local" code="* " /> <referenceRange> <observationRange> <text> 150-400</text> </observationRange> </referenceRange> </observation> </component> </organizer> </entry> <entry> < organizer moodCode="EVN" classCode="BATTERY"> <templateId root= "840.1.292235.22.4.1" /> <id nullFlavor="NA" /> <code codeSystem="local" code="LIVER" displayName="HEPATIC FUNCTION PANEL" /> < statusCode code="completed" /> <component> <observation moodCode= "EVN" classCode="OBS"> <templateId root="10.03.840.1.029550.102022.4.2 " /> <id nullFlavor="NA" /> <code codeSystem="local" code= "BILUC" displayName="BILI UNCONJUGATED" /> <statusCode code="completed " /> <effectiveTime value="345527599076" /> <value unit="mg/dL " xsi:type="PQ" value="0.1" /> <referenceRange> < observationRange> <text>0.0-0.7</text> </ observationRange> </referenceRange> </observation> </ component> <component> <observation moodCode="EVN" classCode="OBS"> <templateId root="216.840.1.829678.10..4.2" /> <id nullFlavor="NA" /> <code codeSystem="local" code="AST" displayName="AST /SGOT" /> <statusCode code="completed" /> <effectiveTime value ="614292492300" /> <value unit="Units/L" xsi:type="PQ" value="13" /> <referenceRange> <observationRange> <text>10-37< /text> </observationRange> </referenceRange> </ observation> </component> <component> <observation moodCode= "EVN" classCode="OBS"> <templateId root="10.03.840.1.145176.06.06.22.4.2 " /> <id nullFlavor="NA" /> <code codeSystem="local" code="ALT " displayName="ALT/SGPT" /> <statusCode code="completed" /> < effectiveTime value="140248785960" /> <value unit="Units/L" xsi:type= "PQ" value="18" /> <referenceRange> <observationRange> <text>< 66</text> </observationRange> </ referenceRange> </observation> </component> <component> <observation moodCode="EVN" classCode="OBS"> <templateId root= "2.840.1.982498.06.06.22.4.2" /> <id nullFlavor="NA" /> < code codeSystem="local" code="TP" displayName="TOTAL PROTEIN" /> < statusCode code="completed" /> <effectiveTime value="" /> <value unit="gm/dL" xsi:type="PQ" value="8.0" /> < referenceRange> <observationRange> <text>6.4-8.2</text> </observationRange> </referenceRange> </observation > </component> <component> <observation moodCode="EVN" classCode="OBS"> <templateId root="2.16.840.1.080573.06.06.22.4.2" /> <id nullFlavor="NA" /> <code codeSystem="local" code="ALB" displayName="ALBUMIN" /> <statusCode code="completed" /> < effectiveTime value="" /> <value unit="gm/dL" xsi:type="PQ " value="3.5" /> <referenceRange> <observationRange> <text>3.4-5.0</text> </observationRange> </ referenceRange> </observation> </component> <component> <observation moodCode="EVN" classCode="OBS"> <templateId root= "2.16.840.1.434865.10..4.2" /> <id nullFlavor="NA" /> < code codeSystem="local" code="BILTOT" displayName="BILI TOTAL" /> < statusCode code="completed" /> <effectiveTime value="" /> <value unit="mg/dL" xsi:type="PQ" value="0.2" /> < referenceRange> <observationRange> <text>0.0-1.0</text> </observationRange> </referenceRange> </observation > </component> <component> <observation moodCode="EVN" classCode="OBS"> <templateId root="2.16.840.1.182867.10...4.2" /> <id nullFlavor="NA" /> <code codeSystem="local" code="ALKP" displayName="ALKALINE PHOSPHATASE TOTAL" /> <statusCode code="completed " /> <effectiveTime value="827952567097" /> <value unit="IU/L " xsi:type="PQ" value="120" /> <interpretationCode codeSystem="local" code="*" /> <referenceRange> <observationRange> <text>45-117</text> </observationRange> </referenceRange> </observation> </component> <component> <observation moodCode="EVN" classCode="OBS"> <templateId root= "216.840.1.079368...4.2" /> <id nullFlavor="NA" /> < code codeSystem="local" code="BILC" displayName="BILI CONJUGATED" /> < statusCode code="completed" /> <effectiveTime value="275553994295" /> <value unit="mg/dL" xsi:type="PQ" value="< 0.1" /> < referenceRange> <observationRange> <text>0.0-0.3</text> </observationRange> </referenceRange> </observation > </component> </organizer> </entry> <entry> <organizer moodCode= "EVN" classCode="BATTERY"> <templateId root="2.16.840.1.672434.10..4.1 " /> <id nullFlavor="NA" /> <code codeSystem="local" code="LIP" displayName="LIPASE" /> <statusCode code="completed" /> <component> <observation moodCode="EVN" classCode="OBS"> <templateId root= "2.16.840.1.987364.10.20.22.4.2" /> <id nullFlavor="NA" /> < code codeSystem="local" code="LIP" displayName="LIPASE" /> <statusCode code="completed" /> <effectiveTime value="714379020701" /> < value unit="Units/L" xsi:type="PQ" value="78" /> <referenceRange> <observationRange> <text>73-393</text> </ observationRange> </referenceRange> </observation> </ component> </organizer> </entry> <entry> <organizer moodCode="EVN" classCode="BATTERY"> <templateId root="2.16.840.1.630980.10.20.22.4.1" /> <id nullFlavor="NA" /> <code codeSystem="local" code="GLUMON" displayName="GLUCOSE (POC)" /> <statusCode code="completed" /> < component> <observation moodCode="EVN" classCode="OBS"> < templateId root="2.16.840.1.413228.10.20.22.4.2" /> <id nullFlavor="NA " /> <code codeSystem="local" code="GLUMON" displayName="GLUCOSE (POC) " /> <statusCode code="completed" /> <effectiveTime value= "212054375232" /> <value unit="mg/dL" xsi:type="PQ" value="119" /> <interpretationCode codeSystem="local" code="*" /> < referenceRange> <observationRange> <text>70-99</text> </observationRange> </referenceRange> </observation> </component> </organizer> </entry> <entry> <organizer moodCode="EVN " classCode="BATTERY"> <templateId root="840.1.331587.10.22.4.1" / > <id nullFlavor="NA" /> <code codeSystem="local" code="HH" displayName="HGB HCT" /> <statusCode code="completed" /> <component > <observation moodCode="EVN" classCode="OBS"> <templateId root= "840.1.850756.06.06.22.4.2" /> <id nullFlavor="NA" /> < code codeSystem="local" code="MCV" displayName="MEAN CELL VOLUME" /> < statusCode code="completed" /> <effectiveTime value="" /> <value unit="fl" xsi:type="PQ" value="77.0" /> < interpretationCode codeSystem="local" code="*" /> <referenceRange> <observationRange> <text>80.0-100.0</text> </ observationRange> </referenceRange> </observation> </ component> <component> <observation moodCode="EVN" classCode="OBS"> <templateId root="840.1.560631.06.06.22.4.2" /> <id nullFlavor="NA" /> <code codeSystem="local" code="HGBT" displayName= "HEMOGLOBIN" /> <statusCode code="completed" /> < effectiveTime value="" /> <value unit="gm/dL" xsi:type="PQ " value="8.2" /> <interpretationCode codeSystem="local" code="*" /> <referenceRange> <observationRange> <text>12.0- 16.0</text> </observationRange> </referenceRange> </ observation> </component> <component> <observation moodCode= "EVN" classCode="OBS"> <templateId root=".1.831365.10...4.2 " /> <id nullFlavor="NA" /> <code codeSystem="local" code= "HCTT" displayName="HEMATOCRIT" /> <statusCode code="completed" /> <effectiveTime value="754700864422" /> <value unit="%" xsi: type="PQ" value="27.1" /> <interpretationCode codeSystem="local" code= "*" /> <referenceRange> <observationRange> < text>37.0-47.0</text> </observationRange> </referenceRange> </observation> </component> </organizer> </entry> <entry> < organizer moodCode="EVN" classCode="BATTERY"> <templateId root= "216.840.1.035840.10..4.1" /> <id nullFlavor="NA" /> <code codeSystem="local" code="PT" displayName="PROTHROMBIN TIME WITH INR" /> < statusCode code="completed" /> <component> <observation moodCode= "EVN" classCode="OBS"> <templateId root="216.840.1.157506.10...4.2 " /> <id nullFlavor="NA" /> <code codeSystem="local" code= "INRX" displayName="INTERNATIONAL NORMAL RATIO" /> <statusCode code= "completed" /> <effectiveTime value="752874237761" /> <value unit="" xsi:type="PQ" value="1.0" /> <referenceRange> < observationRange> <text>0.9-1.1</text> </ observationRange> </referenceRange> </observation> </ component> <component> <observation moodCode="EVN" classCode="OBS"> <templateId root="216.840.1.948613.06.06.22.4.2" /> <id nullFlavor="NA" /> <code codeSystem="local" code="PTPAT" displayName= "PROTHROMBIN TIME" /> <statusCode code="completed" /> < effectiveTime value="531431311791" /> <value unit="sec" xsi:type="PQ" value="11.3" /> <referenceRange> <observationRange> <text>9.3-12.2</text> </observationRange> </ referenceRange> </observation> </component> </organizer> </entry > <entry> <organizer moodCode="EVN" classCode="BATTERY"> <templateId root="216.840.1.724130.10...4.1" /> <id nullFlavor="NA" /> <code codeSystem="local" code="TROPI" displayName="TROPONIN I" /> <statusCode code="completed" /> <component> <observation moodCode="EVN" classCode="OBS"> <templateId root="216.840.1.623557.10..22.4.2" /> <id nullFlavor="NA" /> <code codeSystem="local" code="TROPI" displayName="TROPONIN I" /> <statusCode code="completed" /> < effectiveTime value="658777068838" /> <value unit="ng/mL" xsi:type="PQ " value="< 0.02" /> <referenceRange> <observationRange> <text>< 0.07</text> </observationRange> </ referenceRange> </observation> </component> </organizer> </entry > <entry> <organizer moodCode="EVN" classCode="BATTERY"> <templateId root="216.840.1.754427.10...4.1" /> <id nullFlavor="NA" /> <code codeSystem="local" code="TROPI" displayName="TROPONIN I" /> <statusCode code="completed" /> <component> <observation moodCode="EVN" classCode="OBS"> <templateId root="10.03.840.1.224948.10..4.2" /> <id nullFlavor="NA" /> <code codeSystem="local" code="TROPI" displayName="TROPONIN I" /> <statusCode code="completed" /> < effectiveTime value="286353422162" /> <value unit="ng/mL" xsi:type="PQ " value="< 0.02" /> <referenceRange> <observationRange> <text>< 0.07</text> </observationRange> </ referenceRange> </observation> </component> </organizer> </entry > <entry> <organizer moodCode="EVN" classCode="BATTERY"> <templateId root="10.03.840.1.151889.10..22.4.1" /> <id nullFlavor="NA" /> <code codeSystem="local" code="GLUMON" displayName="GLUCOSE (POC)" /> < statusCode code="completed" /> <component> <observation moodCode= "EVN" classCode="OBS"> <templateId root="10.03.840.1.690956.10.4.2 " /> <id nullFlavor="NA" /> <code codeSystem="local" code= "GLUMON" displayName="GLUCOSE (POC)" /> <statusCode code="completed" / > <effectiveTime value="830224968006" /> <value unit="mg/dL" xsi:type="PQ" value="108" /> <interpretationCode codeSystem="local" code="*" /> <referenceRange> <observationRange> <text>70-99</text> </observationRange> </referenceRange> </observation> </component> </organizer> </entry> <entry> < organizer moodCode="EVN" classCode="BATTERY"> <templateId root= "216.840.1.921526.10..22.4.1" /> <id nullFlavor="NA" /> <code codeSystem="local" code="RENAL" displayName="RENAL FUNCTION PANEL" /> < statusCode code="completed" /> <component> <observation moodCode= "EVN" classCode="OBS"> <templateId root="2.16.840.1.466763.10...4.2 " /> <id nullFlavor="NA" /> <code codeSystem="local" code="K" displayName="POTASSIUM" /> <statusCode code="completed" /> < effectiveTime value="671653613740" /> <value unit="mmol/L" xsi:type="PQ " value="4.0" /> <referenceRange> <observationRange> <text>3.5-5.3</text> </observationRange> </ referenceRange> </observation> </component> <component> <observation moodCode="EVN" classCode="OBS"> <templateId root= "216.840.1.983432.10..22.4.2" /> <id nullFlavor="NA" /> < code codeSystem="local" code="eGFR" displayName="EST GFR (MDRD)" /> < statusCode code="completed" /> <effectiveTime value="889894398669" /> <value unit="mL/min" xsi:type="PQ" value="> 60" /> < referenceRange> <observationRange> <text>> 59</text> </observationRange> </referenceRange> </observation > </component> <component> <observation moodCode="EVN" classCode="OBS"> <templateId root="216.840.1.141277.10..22.4.2" /> <id nullFlavor="NA" /> <code codeSystem="local" code="GAP" displayName="ANION GAP" /> <statusCode code="completed" /> < effectiveTime value="" /> <value unit="mmol/L" xsi:type="PQ " value="8" /> <referenceRange> <observationRange> <text>5-15</text> </observationRange> </referenceRange > </observation> </component> <component> <observation moodCode="EVN" classCode="OBS"> <templateId root= "16.840.1.630595.10...4.2" /> <id nullFlavor="NA" /> < code codeSystem="local" code="eCrCl" displayName="EST CrCl (CG)" /> < statusCode code="completed" /> <effectiveTime value="" /> <value unit="mL/min" xsi:type="PQ" value="> 60" /> < referenceRange> <observationRange> <text>> 59</text> </observationRange> </referenceRange> </observation > </component> <component> <observation moodCode="EVN" classCode="OBS"> <templateId root="16.840.1.440629.10..22.4.2" /> <id nullFlavor="NA" /> <code codeSystem="local" code="GLU" displayName="GLUCOSE" /> <statusCode code="completed" /> < effectiveTime value="547002431623" /> <value unit="mg/dL" xsi:type="PQ " value="102" /> <interpretationCode codeSystem="local" code="*" /> <referenceRange> <observationRange> <text>70-99</ text> </observationRange> </referenceRange> </ observation> </component> <component> <observation moodCode= "EVN" classCode="OBS"> <templateId root="10.03.840.1.618999.10.20.22.4.2 " /> <id nullFlavor="NA" /> <code codeSystem="local" code="CA " displayName="CALCIUM" /> <statusCode code="completed" /> < effectiveTime value="776748571376" /> <value unit="mg/dL" xsi:type="PQ " value="8.2" /> <interpretationCode codeSystem="local" code="*" /> <referenceRange> <observationRange> <text>8.5- 10.1</text> </observationRange> </referenceRange> </ observation> </component> <component> <observation moodCode= "EVN" classCode="OBS"> <templateId root="10.03.840.1.051686.10..22.4.2 " /> <id nullFlavor="NA" /> <code codeSystem="local" code="BUN " displayName="BLOOD UREA NITROGEN" /> <statusCode code="completed" /> <effectiveTime value="793248799879" /> <value unit="mg/dL" xsi:type="PQ" value="15" /> <referenceRange> < observationRange> <text>7-20</text> </observationRange> </referenceRange> </observation> </component> < component> <observation moodCode="EVN" classCode="OBS"> < templateId root="10.03.840.1.765381.10.20.22.4.2" /> <id nullFlavor="NA " /> <code codeSystem="local" code="CREAT" displayName="CREATININE" /> <statusCode code="completed" /> <effectiveTime value= "795934791561" /> <value unit="mg/dL" xsi:type="PQ" value="0.8" /> <referenceRange> <observationRange> <text>0.6-1.0< /text> </observationRange> </referenceRange> </ observation> </component> <component> <observation moodCode= "EVN" classCode="OBS"> <templateId root="216.840.1.575241.10.20.22.4.2 " /> <id nullFlavor="NA" /> <code codeSystem="local" code="NA " displayName="SODIUM" /> <statusCode code="completed" /> < effectiveTime value="395512011396" /> <value unit="mmol/L" xsi:type="PQ " value="141" /> <referenceRange> <observationRange> <text>135-148</text> </observationRange> </ referenceRange> </observation> </component> <component> <observation moodCode="EVN" classCode="OBS"> <templateId root= "10.03.840.1.940059.10..22.4.2" /> <id nullFlavor="NA" /> < code codeSystem="local" code="CL" displayName="CHLORIDE" /> < statusCode code="completed" /> <effectiveTime value="442204140716" /> <value unit="mmol/L" xsi:type="PQ" value="107" /> < referenceRange> <observationRange> <text>98-110</text> </observationRange> </referenceRange> </observation> </component> <component> <observation moodCode="EVN" classCode ="OBS"> <templateId root="10.03.840.1.130604.10.204.2" /> < id nullFlavor="NA" /> <code codeSystem="local" code="CO2" displayName= "CARBON DIOXIDE" /> <statusCode code="completed" /> < effectiveTime value="002729463532" /> <value unit="mmol/L" xsi:type="PQ " value="26" /> <referenceRange> <observationRange> <text>21-32</text> </observationRange> </ referenceRange> </observation> </component> <component> <observation moodCode="EVN" classCode="OBS"> <templateId root= "2.16.840.1.118510.10..4.2" /> <id nullFlavor="NA" /> < code codeSystem="local" code="ALB" displayName="ALBUMIN" /> < statusCode code="completed" /> <effectiveTime value="080425691781" /> <value unit="gm/dL" xsi:type="PQ" value="3.0" /> < interpretationCode codeSystem="local" code="*" /> <referenceRange> <observationRange> <text>3.4-5.0</text> </ observationRange> </referenceRange> </observation> </ component> <component> <observation moodCode="EVN" classCode="OBS"> <templateId root="216.840.1.383191.06.06.22.4.2" /> <id nullFlavor="NA" /> <code codeSystem="local" code="PHOS" displayName= "PHOSPHORUS" /> <statusCode code="completed" /> < effectiveTime value="461371520639" /> <value unit="mg/dL" xsi:type="PQ " value="3.1" /> <referenceRange> <observationRange> <text>2.5-4.9</text> </observationRange> </ referenceRange> </observation> </component> </organizer> </entry > <entry> <organizer moodCode="EVN" classCode="BATTERY"> <templateId root="840.1.206137.10..22.4.1" /> <id nullFlavor="NA" /> <code codeSystem="local" code="HDLPRO" displayName="LIPID PANEL" /> <statusCode code="completed" /> <component> <observation moodCode="EVN" classCode="OBS"> <templateId root="10.03.840.1.313973.10..4.2" /> <id nullFlavor="NA" /> <code codeSystem="local" code="CHOL/HDL " displayName="CHOLESTEROL/HDL RATIO" /> <statusCode code="completed" / > <effectiveTime value="015625249696" /> <value unit="" xsi: type="PQ" value="3.7" /> <referenceRange> <observationRange > <text> < 5.0</text> </observationRange> </ referenceRange> </observation> </component> <component> <observation moodCode="EVN" classCode="OBS"> <templateId root= "10.03.840.1.354397.10...4.2" /> <id nullFlavor="NA" /> < code codeSystem="local" code="LDLX" displayName="LDL CHOLESTEROL" /> < statusCode code="completed" /> <effectiveTime value="511644248040" /> <value unit="mg/dL" xsi:type="PQ" value="93" /> < referenceRange> <observationRange> <text>< 100</text > </observationRange> </referenceRange> </observation > </component> <component> <observation moodCode="EVN" classCode="OBS"> <templateId root="840.1.332189.10..22.4.2" /> <id nullFlavor="NA" /> <code codeSystem="local" code="VLDL" displayName="VLDL CHOLESTEROL" /> <statusCode code="completed" /> <effectiveTime value="" /> <value unit="mg/dL" xsi: type="PQ" value="27" /> <referenceRange> <observationRange> <text>< 30</text> </observationRange> </ referenceRange> </observation> </component> <component> <observation moodCode="EVN" classCode="OBS"> <templateId root= "2.16.840.1.082143.10..4.2" /> <id nullFlavor="NA" /> < code codeSystem="local" code="TRIG" displayName="TRIGLYCERIDES" /> < statusCode code="completed" /> <effectiveTime value="" /> <value unit="mg/dL" xsi:type="PQ" value="135" /> < referenceRange> <observationRange> <text>< 150</text > </observationRange> </referenceRange> </observation > </component> <component> <observation moodCode="EVN" classCode="OBS"> <templateId root="216.840.1.879375.10..22.4.2" /> <id nullFlavor="NA" /> <code codeSystem="local" code="CHOL" displayName="CHOLESTEROL" /> <statusCode code="completed" /> < effectiveTime value="480264030518" /> <value unit="mg/dL" xsi:type="PQ " value="164" /> <referenceRange> <observationRange> <text>< 200</text> </observationRange> </ referenceRange> </observation> </component> <component> <observation moodCode="EVN" classCode="OBS"> <templateId root= "216.840.1.298966.10..22.4.2" /> <id nullFlavor="NA" /> < code codeSystem="local" code="HDL" displayName="HDL CHOLESTEROL" /> < statusCode code="completed" /> <effectiveTime value="054692445232" /> <value unit="mg/dL" xsi:type="PQ" value="44" /> < referenceRange> <observationRange> <text>> 39</text> </observationRange> </referenceRange> </observation > </component> </organizer> </entry> <entry> <organizer moodCode= "EVN" classCode="BATTERY"> <templateId root="216.840.1.007006.10..22.4.1 " /> <id nullFlavor="NA" /> <code codeSystem="local" code="MAG" displayName="MAGNESIUM" /> <statusCode code="completed" /> <component > <observation moodCode="EVN" classCode="OBS"> <templateId root= "216.840.1.985482.10..22.4.2" /> <id nullFlavor="NA" /> < code codeSystem="local" code="MAG" displayName="MAGNESIUM" /> < statusCode code="completed" /> <effectiveTime value="912548234343" /> <value unit="mg/dL" xsi:type="PQ" value="2.4" /> < referenceRange> <observationRange> <text>1.8-2.4</text> </observationRange> </referenceRange> </observation > </component> </organizer> </entry> <entry> <organizer moodCode= "EVN" classCode="BATTERY"> <templateId root="10.03.840.1.364933.06.06.22.4.1 " /> <id nullFlavor="NA" /> <code codeSystem="local" code="TROPI" displayName="TROPONIN I" /> <statusCode code="completed" /> <component > <observation moodCode="EVN" classCode="OBS"> <templateId root= "840.1.623630.06.06.22.4.2" /> <id nullFlavor="NA" /> < code codeSystem="local" code="TROPI" displayName="TROPONIN I" /> < statusCode code="completed" /> <effectiveTime value="819276128569" /> <value unit="ng/mL" xsi:type="PQ" value="< 0.02" /> < referenceRange> <observationRange> <text>< 0.07</text > </observationRange> </referenceRange> </observation > </component> </organizer> </entry> <entry> <organizer moodCode= "EVN" classCode="BATTERY"> <templateId root="840.1.246463.06.06.22.4.1 " /> <id nullFlavor="NA" /> <code codeSystem="local" code="CBCD" displayName="CBC W/DIFF" /> <statusCode code="completed" /> <component > <observation moodCode="EVN" classCode="OBS"> <templateId root= "840.1.005478.06.06.22.4.2" /> <id nullFlavor="NA" /> < code codeSystem="local" code="BA#" displayName="BASOPHIL #" /> < statusCode code="completed" /> <effectiveTime value="350210298387" /> <value unit="k/cumm" xsi:type="PQ" value="0.1" /> < referenceRange> <observationRange> <text>0.0-0.2</text> </observationRange> </referenceRange> </observation > </component> <component> <observation moodCode="EVN" classCode="OBS"> <templateId root="216.840.1.803868.10..22.4.2" /> <id nullFlavor="NA" /> <code codeSystem="local" code="BA% " displayName="BASOPHIL %" /> <statusCode code="completed" /> <effectiveTime value="240609181167" /> <value unit="%" xsi: type="PQ" value="1" /> <referenceRange> <observationRange> <text>0-1</text> </observationRange> </ referenceRange> </observation> </component> <component> <observation moodCode="EVN" classCode="OBS"> <templateId root= "10.03.840.1.843452.10..4.2" /> <id nullFlavor="NA" /> < code codeSystem="local" code="EO#" displayName="EOSINOPHIL #" /> < statusCode code="completed" /> <effectiveTime value="129809384922" /> <value unit="k/cumm" xsi:type="PQ" value="0.2" /> < referenceRange> <observationRange> <text>0.1-0.5</text> </observationRange> </referenceRange> </observation > </component> <component> <observation moodCode="EVN" classCode="OBS"> <templateId root="10.03.840.1.907653.10.20.22.4.2" /> <id nullFlavor="NA" /> <code codeSystem="local" code="EO% " displayName="EOSINOPHIL %" /> <statusCode code="completed" /> <effectiveTime value="732247108517" /> <value unit="%" xsi: type="PQ" value="2" /> <referenceRange> <observationRange> <text>2-4</text> </observationRange> </ referenceRange> </observation> </component> <component> <observation moodCode="EVN" classCode="OBS"> <templateId root= "216.840.1.552678.10..4.2" /> <id nullFlavor="NA" /> < code codeSystem="local" code="GR#" displayName="GRANULOCYTE #" /> < statusCode code="completed" /> <effectiveTime value="[id number]" /> <value unit="k/cumm" xsi:type="PQ" value="4.8" /> < referenceRange> <observationRange> <text>2.0-9.0</text> </observationRange> </referenceRange> </observation > </component> <component> <observation moodCode="EVN" classCode="OBS"> <templateId root="16.840.1.102137.10..4.2" /> <id nullFlavor="NA" /> <code codeSystem="local" code="GR% " displayName="GRANULOCYTE %" /> <statusCode code="completed" /> <effectiveTime value="937155121663" /> <value unit="%" xsi: type="PQ" value="64" /> <referenceRange> <observationRange> <text>50-75</text> </observationRange> </ referenceRange> </observation> </component> <component> <observation moodCode="EVN" classCode="OBS"> <templateId root= "216.840.1.990367.06.06.22.4.2" /> <id nullFlavor="NA" /> < code codeSystem="local" code="LY#" displayName="LYMPHOCYTE #" /> < statusCode code="completed" /> <effectiveTime value="167706137510" /> <value unit="k/cumm" xsi:type="PQ" value="1.5" /> < referenceRange> <observationRange> <text>1.0-4.0</text> </observationRange> </referenceRange> </observation > </component> <component> <observation moodCode="EVN" classCode="OBS"> <templateId root="2.16.840.1.417180.06.06.224.2" /> <id nullFlavor="NA" /> <code codeSystem="local" code="LY% " displayName="LYMPHOCYTE %" /> <statusCode code="completed" /> <effectiveTime value="" /> <value unit="%" xsi: type="PQ" value="21" /> <referenceRange> <observationRange> <text>20-30</text> </observationRange> </ referenceRange> </observation> </component> <component> <observation moodCode="EVN" classCode="OBS"> <templateId root= "2.16.840.1.612456.10..4.2" /> <id nullFlavor="NA" /> < code codeSystem="local" code="MCH" displayName="MEAN CELL HGB" /> < statusCode code="completed" /> <effectiveTime value="" /> <value unit="pg" xsi:type="PQ" value="23.3" /> < interpretationCode codeSystem="local" code="*" /> <referenceRange> <observationRange> <text>27.0-33.0</text> </ observationRange> </referenceRange> </observation> </ component> <component> <observation moodCode="EVN" classCode="OBS"> <templateId root="10.03.840.1.326238.10.20.22.4.2" /> <id nullFlavor="NA" /> <code codeSystem="local" code="MCHC" displayName= "MEAN CELL HGB CONCENTRATION" /> <statusCode code="completed" /> <effectiveTime value="" /> <value unit="g/dL" xsi:type= "PQ" value="29.9" /> <interpretationCode codeSystem="local" code="*" / > <referenceRange> <observationRange> <text> 32.0-37.0</text> </observationRange> </referenceRange> </observation> </component> <component> <observation moodCode="EVN" classCode="OBS"> <templateId root= "840.1.655558.1022.4.2" /> <id nullFlavor="NA" /> < code codeSystem="local" code="MCV" displayName="MEAN CELL VOLUME" /> < statusCode code="completed" /> <effectiveTime value="429252627926" /> <value unit="fl" xsi:type="PQ" value="77.8" /> < interpretationCode codeSystem="local" code="*" /> <referenceRange> <observationRange> <text>80.0-100.0</text> </ observationRange> </referenceRange> </observation> </ component> <component> <observation moodCode="EVN" classCode="OBS"> <templateId root="10.03.840.1.858131.10.20.22.4.2" /> <id nullFlavor="NA" /> <code codeSystem="local" code="MO#" displayName= "MONOCYTE #" /> <statusCode code="completed" /> < effectiveTime value="575487750334" /> <value unit="k/cumm" xsi:type="PQ " value="0.9" /> <referenceRange> <observationRange> <text>0.1-1.0</text> </observationRange> </ referenceRange> </observation> </component> <component> <observation moodCode="EVN" classCode="OBS"> <templateId root= "216.840.1.315460.10.20.22.4.2" /> <id nullFlavor="NA" /> < code codeSystem="local" code="MO%" displayName="MONOCYTE %" /> <statusCode code="completed" /> <effectiveTime value="011827461169" /> <value unit="%" xsi:type="PQ" value="12" /> < interpretationCode codeSystem="local" code="*" /> <referenceRange> <observationRange> <text>4-6</text> </ observationRange> </referenceRange> </observation> </ component> <component> <observation moodCode="EVN" classCode="OBS"> <templateId root="216.840.1.711347.10.20.22.4.2" /> <id nullFlavor="NA" /> <code codeSystem="local" code="RBC" displayName=" RED BLOOD CELL" /> <statusCode code="completed" /> < effectiveTime value="136171508275" /> <value unit="m/cumm" xsi:type="PQ " value="3.61" /> <interpretationCode codeSystem="local" code="*" /> <referenceRange> <observationRange> <text>4.00- 6.00</text> </observationRange> </referenceRange> </ observation> </component> <component> <observation moodCode= "EVN" classCode="OBS"> <templateId root="16.840.1.188993.10..4.2 " /> <id nullFlavor="NA" /> <code codeSystem="local" code="RDW " displayName="RED CELL DISTRIBUTION WIDTH" /> <statusCode code= "completed" /> <effectiveTime value="" /> <value unit="%" xsi:type="PQ" value="15.2" /> <referenceRange> <observationRange> <text>11.0-15.6</text> </ observationRange> </referenceRange> </observation> </ component> <component> <observation moodCode="EVN" classCode="OBS"> <templateId root="10.03.840.1.290232.06.06.22.4.2" /> <id nullFlavor="NA" /> <code codeSystem="local" code="WBC" displayName= "WHITE BLOOD CELL" /> <statusCode code="completed" /> < effectiveTime value="" /> <value unit="k/cumm" xsi:type="PQ " value="7.4" /> <referenceRange> <observationRange> <text>5.0-10.0</text> </observationRange> </ referenceRange> </observation> </component> <component> <observation moodCode="EVN" classCode="OBS"> <templateId root= "16.840.1.556917.10..22.4.2" /> <id nullFlavor="NA" /> < code codeSystem="local" code="HGBT" displayName="HEMOGLOBIN" /> < statusCode code="completed" /> <effectiveTime value="" /> <value unit="gm/dL" xsi:type="PQ" value="8.4" /> < interpretationCode codeSystem="local" code="*" /> <referenceRange> <observationRange> <text>12.0-16.0</text> </ observationRange> </referenceRange> </observation> </ component> <component> <observation moodCode="EVN" classCode="OBS"> <templateId root="10.03.840.1.593989.10.4.2" /> <id nullFlavor="NA" /> <code codeSystem="local" code="HCTT" displayName= "HEMATOCRIT" /> <statusCode code="completed" /> < effectiveTime value="816713572607" /> <value unit="%" xsi:type="PQ " value="28.1" /> <interpretationCode codeSystem="local" code="*" /> <referenceRange> <observationRange> <text>37.0- 47.0</text> </observationRange> </referenceRange> </ observation> </component> <component> <observation moodCode= "EVN" classCode="OBS"> <templateId root="10.03.840.1.778420.06.06.22.4.2 " /> <id nullFlavor="NA" /> <code codeSystem="local" code="PLT " displayName="PLATELET COUNT" /> <statusCode code="completed" /> <effectiveTime value="883455510855" /> <value unit="k/cumm" xsi: type="PQ" value="437" /> <interpretationCode codeSystem="local" code="* " /> <referenceRange> <observationRange> <text> 150-400</text> </observationRange> </referenceRange> </observation> </component> </organizer> </entry> <entry> < organizer moodCode="EVN" classCode="BATTERY"> <templateId root= "10.03.830.1.167256.06.06.22.4.1" /> <id nullFlavor="NA" /> <code codeSystem="local" code="HBA1C" displayName="HEMOGLOBIN A1C" /> < statusCode code="completed" /> <component> <observation moodCode= "EVN" classCode="OBS"> <templateId root="840.1.957295.06.06.22.4.2 " /> <id nullFlavor="NA" /> <code codeSystem="local" code= "HBA1C" displayName="HEMOGLOBIN A1C" /> <statusCode code="completed" / > <effectiveTime value="326850357205" /> <value unit="%" xsi:type="PQ" value="6.7" /> <interpretationCode codeSystem="local" code="*" /> <referenceRange> <observationRange> <text>< 5.7</text> </observationRange> </referenceRange > </observation> </component> </organizer> </entry> <entry> <organizer moodCode="EVN" classCode="BATTERY"> <templateId root= "840.1.593395.06.06.22.4.1" /> <id nullFlavor="NA" /> <code codeSystem="local" code="GLUMON" displayName="GLUCOSE (POC)" /> < statusCode code="completed" /> <component> <observation moodCode= "EVN" classCode="OBS"> <templateId root="840.1.565386.06.06.22.4.2 " /> <id nullFlavor="NA" /> <code codeSystem="local" code= "GLUMON" displayName="GLUCOSE (POC)" /> <statusCode code="completed" / > <effectiveTime value="278815046736" /> <value unit="mg/dL" xsi:type="PQ" value="103" /> <interpretationCode codeSystem="local" code="*" /> <referenceRange> <observationRange> <text>70-99</text> </observationRange> </referenceRange> </observation> </component> </organizer> </entry> <entry> < organizer moodCode="EVN" classCode="BATTERY"> <templateId root= "10.03.840.1.999054.10.22.4.1" /> <id nullFlavor="NA" /> <code codeSystem="local" code="GLUMON" displayName="GLUCOSE (POC)" /> < statusCode code="completed" /> <component> <observation moodCode= "EVN" classCode="OBS"> <templateId root="10.03.840.1.566254.10...4.2 " /> <id nullFlavor="NA" /> <code codeSystem="local" code= "GLUMON" displayName="GLUCOSE (POC)" /> <statusCode code="completed" / > <effectiveTime value="602220121809" /> <value unit="mg/dL" xsi:type="PQ" value="92" /> <referenceRange> < observationRange> <text>70-99</text> </observationRange > </referenceRange> </observation> </component> </ organizer> </entry> <entry> <organizer moodCode="EVN" classCode="BATTERY"> <templateId root="10.03.840.1.536877.10..22.4.1" /> <id nullFlavor= "NA" /> <code codeSystem="local" code="GLUMON" displayName="GLUCOSE (POC)" /> <statusCode code="completed" /> <component> <observation moodCode="EVN" classCode="OBS"> <templateId root= "840.1.585101.10.20.22.4.2" /> <id nullFlavor="NA" /> < code codeSystem="local" code="GLUMON" displayName="GLUCOSE (POC)" /> < statusCode code="completed" /> <effectiveTime value="251572096592" /> <value unit="mg/dL" xsi:type="PQ" value="110" /> < interpretationCode codeSystem="local" code="*" /> <referenceRange> <observationRange> <text>70-99</text> </ observationRange> </referenceRange> </observation> </ component> </organizer> </entry> <entry> <organizer moodCode="EVN" classCode="BATTERY"> <templateId root="2.16.840.1.069290.10.20.22.4.1" /> <id nullFlavor="NA" /> <code codeSystem="local" code="GLUMON" displayName="GLUCOSE (POC)" /> <statusCode code="completed" /> < component> <observation moodCode="EVN" classCode="OBS"> < templateId root="2.16.840.1.498287.10.20.22.4.2" /> <id nullFlavor="NA " /> <code codeSystem="local" code="GLUMON" displayName="GLUCOSE (POC) " /> <statusCode code="completed" /> <effectiveTime value= "385079778193" /> <value unit="mg/dL" xsi:type="PQ" value="193" /> <interpretationCode codeSystem="local" code="*" /> < referenceRange> <observationRange> <text>70-99</text> </observationRange> </referenceRange> </observation> </component> </organizer> </entry> <entry> <organizer moodCode="EVN " classCode="BATTERY"> <templateId root="840.1.279898.10.4.1" / > <id nullFlavor="NA" /> <code codeSystem="local" code="GLUMON" displayName="GLUCOSE (POC)" /> <statusCode code="completed" /> < component> <observation moodCode="EVN" classCode="OBS"> < templateId root="840.1.361424.06.06.22.4.2" /> <id nullFlavor="NA " /> <code codeSystem="local" code="GLUMON" displayName="GLUCOSE (POC) " /> <statusCode code="completed" /> <effectiveTime value= "680908547947" /> <value unit="mg/dL" xsi:type="PQ" value="125" /> <interpretationCode codeSystem="local" code="*" /> < referenceRange> <observationRange> <text>70-99</text> </observationRange> </referenceRange> </observation> </component> </organizer> </entry> <entry> <organizer moodCode="EVN " classCode="BATTERY"> <templateId root="840.1.812333.06.06.22.4.1" / > <id nullFlavor="NA" /> <code codeSystem="local" code="CBCD" displayName="CBC W/DIFF" /> <statusCode code="completed" /> <component > <observation moodCode="EVN" classCode="OBS"> <templateId root= "840.1.784271.06.06.22.4.2" /> <id nullFlavor="NA" /> < code codeSystem="local" code="BA#" displayName="BASOPHIL #" /> < statusCode code="completed" /> <effectiveTime value="396071420429" /> <value unit="k/cumm" xsi:type="PQ" value="0.1" /> < referenceRange> <observationRange> <text>0.0-0.2</text> </observationRange> </referenceRange> </observation > </component> <component> <observation moodCode="EVN" classCode="OBS"> <templateId root="216.840.1.980571.10..4.2" /> <id nullFlavor="NA" /> <code codeSystem="local" code="BA% " displayName="BASOPHIL %" /> <statusCode code="completed" /> <effectiveTime value="" /> <value unit="%" xsi: type="PQ" value="1" /> <referenceRange> <observationRange> <text>0-1</text> </observationRange> </ referenceRange> </observation> </component> <component> <observation moodCode="EVN" classCode="OBS"> <templateId root= "10.03.840.1.619228.06.06.22.4.2" /> <id nullFlavor="NA" /> < code codeSystem="local" code="EO#" displayName="EOSINOPHIL #" /> < statusCode code="completed" /> <effectiveTime value="" /> <value unit="k/cumm" xsi:type="PQ" value="0.2" /> < referenceRange> <observationRange> <text>0.1-0.5</text> </observationRange> </referenceRange> </observation > </component> <component> <observation moodCode="EVN" classCode="OBS"> <templateId root="10.03.840.1.831741.10...4.2" /> <id nullFlavor="NA" /> <code codeSystem="local" code="EO% " displayName="EOSINOPHIL %" /> <statusCode code="completed" /> <effectiveTime value="" /> <value unit="%" xsi: type="PQ" value="3" /> <referenceRange> <observationRange> <text>2-4</text> </observationRange> </ referenceRange> </observation> </component> <component> <observation moodCode="EVN" classCode="OBS"> <templateId root= "216.840.1.137083.10.20.22.4.2" /> <id nullFlavor="NA" /> < code codeSystem="local" code="GR#" displayName="GRANULOCYTE #" /> < statusCode code="completed" /> <effectiveTime value="" /> <value unit="k/cumm" xsi:type="PQ" value="3.2" /> < referenceRange> <observationRange> <text>2.0-9.0</text> </observationRange> </referenceRange> </observation > </component> <component> <observation moodCode="EVN" classCode="OBS"> <templateId root="16.840.1.155195.10.20.22.4.2" /> <id nullFlavor="NA" /> <code codeSystem="local" code="GR% " displayName="GRANULOCYTE %" /> <statusCode code="completed" /> <effectiveTime value="" /> <value unit="%" xsi: type="PQ" value="61" /> <referenceRange> <observationRange> <text>50-75</text> </observationRange> </ referenceRange> </observation> </component> <component> <observation moodCode="EVN" classCode="OBS"> <templateId root= "16.840.1.066126.10.2022.4.2" /> <id nullFlavor="NA" /> < code codeSystem="local" code="LY#" displayName="LYMPHOCYTE #" /> < statusCode code="completed" /> <effectiveTime value="" /> <value unit="k/cumm" xsi:type="PQ" value="1.3" /> < referenceRange> <observationRange> <text>1.0-4.0</text> </observationRange> </referenceRange> </observation > </component> <component> <observation moodCode="EVN" classCode="OBS"> <templateId root="10.03.840.1.668878.10.4.2" /> <id nullFlavor="NA" /> <code codeSystem="local" code="LY% " displayName="LYMPHOCYTE %" /> <statusCode code="completed" /> <effectiveTime value="" /> <value unit="%" xsi: type="PQ" value="25" /> <referenceRange> <observationRange> <text>20-30</text> </observationRange> </ referenceRange> </observation> </component> <component> <observation moodCode="EVN" classCode="OBS"> <templateId root= "10.03.840.1.612648.10..4.2" /> <id nullFlavor="NA" /> < code codeSystem="local" code="MCH" displayName="MEAN CELL HGB" /> < statusCode code="completed" /> <effectiveTime value="" /> <value unit="pg" xsi:type="PQ" value="22.9" /> < interpretationCode codeSystem="local" code="*" /> <referenceRange> <observationRange> <text>27.0-33.0</text> </ observationRange> </referenceRange> </observation> </ component> <component> <observation moodCode="EVN" classCode="OBS"> <templateId root="10.03.840.1.866588.10.20.22.4.2" /> <id nullFlavor="NA" /> <code codeSystem="local" code="MCHC" displayName= "MEAN CELL HGB CONCENTRATION" /> <statusCode code="completed" /> <effectiveTime value="" /> <value unit="g/dL" xsi:type= "PQ" value="29.6" /> <interpretationCode codeSystem="local" code="*" / > <referenceRange> <observationRange> <text> 32.0-37.0</text> </observationRange> </referenceRange> </observation> </component> <component> <observation moodCode="EVN" classCode="OBS"> <templateId root= "840.1.779475.10.20.22.4.2" /> <id nullFlavor="NA" /> < code codeSystem="local" code="MCV" displayName="MEAN CELL VOLUME" /> < statusCode code="completed" /> <effectiveTime value="" /> <value unit="fl" xsi:type="PQ" value="77.4" /> < interpretationCode codeSystem="local" code="*" /> <referenceRange> <observationRange> <text>80.0-100.0</text> </ observationRange> </referenceRange> </observation> </ component> <component> <observation moodCode="EVN" classCode="OBS"> <templateId root="10.03.840.1.789676.10.20.22.4.2" /> <id nullFlavor="NA" /> <code codeSystem="local" code="MO#" displayName= "MONOCYTE #" /> <statusCode code="completed" /> < effectiveTime value="" /> <value unit="k/cumm" xsi:type="PQ " value="0.5" /> <referenceRange> <observationRange> <text>0.1-1.0</text> </observationRange> </ referenceRange> </observation> </component> <component> <observation moodCode="EVN" classCode="OBS"> <templateId root= "216.840.1.686782.10..22.4.2" /> <id nullFlavor="NA" /> < code codeSystem="local" code="MO%" displayName="MONOCYTE %" /> <statusCode code="completed" /> <effectiveTime value="" /> <value unit="%" xsi:type="PQ" value="10" /> < interpretationCode codeSystem="local" code="*" /> <referenceRange> <observationRange> <text>4-6</text> </ observationRange> </referenceRange> </observation> </ component> <component> <observation moodCode="EVN" classCode="OBS"> <templateId root="216.840.1.899474.10..22.4.2" /> <id nullFlavor="NA" /> <code codeSystem="local" code="RBC" displayName=" RED BLOOD CELL" /> <statusCode code="completed" /> < effectiveTime value="" /> <value unit="m/cumm" xsi:type="PQ " value="3.54" /> <interpretationCode codeSystem="local" code="*" /> <referenceRange> <observationRange> <text>4.00- 6.00</text> </observationRange> </referenceRange> </ observation> </component> <component> <observation moodCode= "EVN" classCode="OBS"> <templateId root="216.840.1.582080.1022.4.2 " /> <id nullFlavor="NA" /> <code codeSystem="local" code="RDW " displayName="RED CELL DISTRIBUTION WIDTH" /> <statusCode code= "completed" /> <effectiveTime value="" /> <value unit="%" xsi:type="PQ" value="14.7" /> <referenceRange> <observationRange> <text>11.0-15.6</text> </ observationRange> </referenceRange> </observation> </ component> <component> <observation moodCode="EVN" classCode="OBS"> <templateId root="10.03.840.1.549652.06.06.22.4.2" /> <id nullFlavor="NA" /> <code codeSystem="local" code="WBC" displayName= "WHITE BLOOD CELL" /> <statusCode code="completed" /> < effectiveTime value="" /> <value unit="k/cumm" xsi:type="PQ " value="5.3" /> <referenceRange> <observationRange> <text>5.0-10.0</text> </observationRange> </ referenceRange> </observation> </component> <component> <observation moodCode="EVN" classCode="OBS"> <templateId root= "216.840.1.326677.22.4.2" /> <id nullFlavor="NA" /> < code codeSystem="local" code="HGBT" displayName="HEMOGLOBIN" /> < statusCode code="completed" /> <effectiveTime value="" /> <value unit="gm/dL" xsi:type="PQ" value="8.1" /> < interpretationCode codeSystem="local" code="*" /> <referenceRange> <observationRange> <text>12.0-16.0</text> </ observationRange> </referenceRange> </observation> </ component> <component> <observation moodCode="EVN" classCode="OBS"> <templateId root="216.840.1.847787.22.4.2" /> <id nullFlavor="NA" /> <code codeSystem="local" code="HCTT" displayName= "HEMATOCRIT" /> <statusCode code="completed" /> < effectiveTime value="652879654468" /> <value unit="%" xsi:type="PQ " value="27.4" /> <interpretationCode codeSystem="local" code="*" /> <referenceRange> <observationRange> <text>37.0- 47.0</text> </observationRange> </referenceRange> </ observation> </component> <component> <observation moodCode= "EVN" classCode="OBS"> <templateId root="216.840.1.659696.06.06.22.4.2 " /> <id nullFlavor="NA" /> <code codeSystem="local" code="PLT " displayName="PLATELET COUNT" /> <statusCode code="completed" /> <effectiveTime value="550388863892" /> <value unit="k/cumm" xsi: type="PQ" value="389" /> <referenceRange> <observationRange > <text>150-400</text> </observationRange> </ referenceRange> </observation> </component> </organizer> </entry > <entry> <organizer moodCode="EVN" classCode="BATTERY"> <templateId root="216.840.1.574090.06.06.22.4.1" /> <id nullFlavor="NA" /> <code codeSystem="local" code="VITB12" displayName="VITAMIN B12" /> <statusCode code="completed" /> <component> <observation moodCode="EVN" classCode="OBS"> <templateId root="216.840.1.276786.10...4.2" /> <id nullFlavor="NA" /> <code codeSystem="local" code="VITB12" displayName="VITAMIN B12" /> <statusCode code="completed" /> < effectiveTime value="483829841835" /> <value unit="pg/mL" xsi:type="PQ " value="593" /> <referenceRange> <observationRange> <text>211-911</text> </observationRange> </ referenceRange> </observation> </component> </organizer> </entry > <entry> <organizer moodCode="EVN" classCode="BATTERY"> <templateId root="16.840.1.093353...4.1" /> <id nullFlavor="NA" /> <code codeSystem="local" code="RENAL" displayName="RENAL FUNCTION PANEL" /> < statusCode code="completed" /> <component> <observation moodCode= "EVN" classCode="OBS"> <templateId root="16.840.1.279563.10..22.4.2 " /> <id nullFlavor="NA" /> <code codeSystem="local" code="K" displayName="POTASSIUM" /> <statusCode code="completed" /> < effectiveTime value="890301603112" /> <value unit="mmol/L" xsi:type="PQ " value="4.2" /> <referenceRange> <observationRange> <text>3.5-5.3</text> </observationRange> </ referenceRange> </observation> </component> <component> <observation moodCode="EVN" classCode="OBS"> <templateId root= "216.840.1.370305.10.4.2" /> <id nullFlavor="NA" /> < code codeSystem="local" code="eGFR" displayName="EST GFR (MDRD)" /> < statusCode code="completed" /> <effectiveTime value="" /> <value unit="mL/min" xsi:type="PQ" value="> 60" /> < referenceRange> <observationRange> <text>> 59</text> </observationRange> </referenceRange> </observation > </component> <component> <observation moodCode="EVN" classCode="OBS"> <templateId root="10.03.840.1.436085.06.06.22.4.2" /> <id nullFlavor="NA" /> <code codeSystem="local" code="GAP" displayName="ANION GAP" /> <statusCode code="completed" /> < effectiveTime value="" /> <value unit="mmol/L" xsi:type="PQ " value="7" /> <referenceRange> <observationRange> <text>5-15</text> </observationRange> </referenceRange > </observation> </component> <component> <observation moodCode="EVN" classCode="OBS"> <templateId root= "10.03.840.1.456761.06.06.22.4.2" /> <id nullFlavor="NA" /> < code codeSystem="local" code="eCrCl" displayName="EST CrCl (CG)" /> < statusCode code="completed" /> <effectiveTime value="" /> <value unit="mL/min" xsi:type="PQ" value="> 60" /> < referenceRange> <observationRange> <text>> 59</text> </observationRange> </referenceRange> </observation > </component> <component> <observation moodCode="EVN" classCode="OBS"> <templateId root="216.840.1.077681.10.2022.4.2" /> <id nullFlavor="NA" /> <code codeSystem="local" code="GLU" displayName="GLUCOSE" /> <statusCode code="completed" /> < effectiveTime value="033910176231" /> <value unit="mg/dL" xsi:type="PQ " value="110" /> <interpretationCode codeSystem="local" code="*" /> <referenceRange> <observationRange> <text>70-99</ text> </observationRange> </referenceRange> </ observation> </component> <component> <observation moodCode= "EVN" classCode="OBS"> <templateId root="10.03.840.1.567678.06.06.22.4.2 " /> <id nullFlavor="NA" /> <code codeSystem="local" code="CA " displayName="CALCIUM" /> <statusCode code="completed" /> < effectiveTime value="186488209532" /> <value unit="mg/dL" xsi:type="PQ " value="8.6" /> <referenceRange> <observationRange> <text>8.5-10.1</text> </observationRange> </ referenceRange> </observation> </component> <component> <observation moodCode="EVN" classCode="OBS"> <templateId root= "10.03.840.1.423522.10.20.22.4.2" /> <id nullFlavor="NA" /> < code codeSystem="local" code="BUN" displayName="BLOOD UREA NITROGEN" /> <statusCode code="completed" /> <effectiveTime value="" / > <value unit="mg/dL" xsi:type="PQ" value="12" /> < referenceRange> <observationRange> <text>7-20</text> </observationRange> </referenceRange> </observation> </component> <component> <observation moodCode="EVN" classCode= "OBS"> <templateId root="216.840.1.879818.10..22.4.2" /> < id nullFlavor="NA" /> <code codeSystem="local" code="CREAT" displayName ="CREATININE" /> <statusCode code="completed" /> < effectiveTime value="[id number]" /> <value unit="mg/dL" xsi:type="PQ " value="0.9" /> <referenceRange> <observationRange> <text>0.6-1.0</text> </observationRange> </ referenceRange> </observation> </component> <component> <observation moodCode="EVN" classCode="OBS"> <templateId root= "16.840.1.208044.10..22.4.2" /> <id nullFlavor="NA" /> < code codeSystem="local" code="NA" displayName="SODIUM" /> <statusCode code="completed" /> <effectiveTime value="302690446719" /> < value unit="mmol/L" xsi:type="PQ" value="139" /> <referenceRange> <observationRange> <text>135-148</text> </ observationRange> </referenceRange> </observation> </ component> <component> <observation moodCode="EVN" classCode="OBS"> <templateId root="10.03.840.1.199063.06.06.22.4.2" /> <id nullFlavor="NA" /> <code codeSystem="local" code="CL" displayName= "CHLORIDE" /> <statusCode code="completed" /> <effectiveTime value="" /> <value unit="mmol/L" xsi:type="PQ" value="104" /> <referenceRange> <observationRange> <text>98 -110</text> </observationRange> </referenceRange> </ observation> </component> <component> <observation moodCode= "EVN" classCode="OBS"> <templateId root="216.840.1.174050...4.2 " /> <id nullFlavor="NA" /> <code codeSystem="local" code="CO2 " displayName="CARBON DIOXIDE" /> <statusCode code="completed" /> <effectiveTime value="" /> <value unit="mmol/L" xsi: type="PQ" value="28" /> <referenceRange> <observationRange> <text>21-32</text> </observationRange> </ referenceRange> </observation> </component> <component> <observation moodCode="EVN" classCode="OBS"> <templateId root= "2.16.840.1.729380...4.2" /> <id nullFlavor="NA" /> < code codeSystem="local" code="ALB" displayName="ALBUMIN" /> < statusCode code="completed" /> <effectiveTime value="416759736525" /> <value unit="gm/dL" xsi:type="PQ" value="3.1" /> < interpretationCode codeSystem="local" code="*" /> <referenceRange> <observationRange> <text>3.4-5.0</text> </ observationRange> </referenceRange> </observation> </ component> <component> <observation moodCode="EVN" classCode="OBS"> <templateId root="2.16.840.1.552555.10..22.4.2" /> <id nullFlavor="NA" /> <code codeSystem="local" code="PHOS" displayName= "PHOSPHORUS" /> <statusCode code="completed" /> < effectiveTime value="" /> <value unit="mg/dL" xsi:type="PQ " value="2.9" /> <referenceRange> <observationRange> <text>2.5-4.9</text> </observationRange> </ referenceRange> </observation> </component> </organizer> </entry > <entry> <organizer moodCode="EVN" classCode="BATTERY"> <templateId root="2.16.840.1.111452.10..22.4.1" /> <id nullFlavor="NA" /> <code codeSystem="local" code="MAG" displayName="MAGNESIUM" /> <statusCode code= "completed" /> <component> <observation moodCode="EVN" classCode= "OBS"> <templateId root="2.16.840.1.023455.10..22.4.2" /> < id nullFlavor="NA" /> <code codeSystem="local" code="MAG" displayName= "MAGNESIUM" /> <statusCode code="completed" /> <effectiveTime value="929644387773" /> <value unit="mg/dL" xsi:type="PQ" value="2.7" / > <interpretationCode codeSystem="local" code="*" /> < referenceRange> <observationRange> <text>1.8-2.4</text> </observationRange> </referenceRange> </observation > </component> </organizer> </entry> <entry> <organizer moodCode= "EVN" classCode="BATTERY"> <templateId root="10.03.840.1.044216.10..4.1 " /> <id nullFlavor="NA" /> <code codeSystem="local" code="ALEX" displayName="FERRITIN" /> <statusCode code="completed" /> <component> <observation moodCode="EVN" classCode="OBS"> <templateId root= "840.1.441669.06.06.22.4.2" /> <id nullFlavor="NA" /> < code codeSystem="local" code="ALEX" displayName="FERRITIN" /> < statusCode code="completed" /> <effectiveTime value="060120674350" /> <value unit="ng/mL" xsi:type="PQ" value="6" /> < interpretationCode codeSystem="local" code="*" /> <referenceRange> <observationRange> <text>8252</text> </ observationRange> </referenceRange> </observation> </ component> </organizer> </entry> <entry> <organizer moodCode="EVN" classCode="BATTERY"> <templateId root="840.1.806364.06.06.22.4.1" /> <id nullFlavor="NA" /> <code codeSystem="local" code="TSH" displayName ="THYROID STIM HORMONE (TSH)" /> <statusCode code="completed" /> < component> <observation moodCode="EVN" classCode="OBS"> < templateId root="840.1.762975.06.06.22.4.2" /> <id nullFlavor="NA " /> <code codeSystem="local" code="TSH" displayName="THYROID STIM HORMONE (TSH)" /> <statusCode code="completed" /> < effectiveTime value="683848950596" /> <value unit="uIU/mL" xsi:type="PQ " value="2.55" /> <referenceRange> <observationRange> <text>0.34-4.82</text> </observationRange> </ referenceRange> </observation> </component> </organizer> </entry > <entry> <organizer moodCode="EVN" classCode="BATTERY"> <templateId root="10.03.840.1.057909.06.06.22.4.1" /> <id nullFlavor="NA" /> <code codeSystem="local" code="FETIBC" displayName="IRON W/ BINDING CAPACITY" /> <statusCode code="completed" /> <component> <observation moodCode= "EVN" classCode="OBS"> <templateId root="10.03.840.1.009412.06.06.22.4.2 " /> <id nullFlavor="NA" /> <code codeSystem="local" code= "FESAT" displayName="IRON SATURATION" /> <statusCode code="completed" / > <effectiveTime value="068149214189" /> <value unit="%SAT " xsi:type="PQ" value="2" /> <interpretationCode codeSystem="local" code="*" /> <referenceRange> <observationRange> <text>11-46</text> </observationRange> </referenceRange> </observation> </component> <component> <observation moodCode="EVN" classCode="OBS"> <templateId root= "10.03.840.1.247320.06.06.22.4.2" /> <id nullFlavor="NA" /> < code codeSystem="local" code="TIBC" displayName="IRON BINDING CAPACITY, TOTAL" / > <statusCode code="completed" /> <effectiveTime value= "329471788272" /> <value unit="mcg/dL" xsi:type="PQ" value="467" /> <interpretationCode codeSystem="local" code="*" /> < referenceRange> <observationRange> <text>250-450</text> </observationRange> </referenceRange> </observation > </component> <component> <observation moodCode="EVN" classCode="OBS"> <templateId root="840.1.994074.10.22.4.2" /> <id nullFlavor="NA" /> <code codeSystem="local" code="IRON" displayName="IRON" /> <statusCode code="completed" /> < effectiveTime value="095108287712" /> <value unit="mcg/dL" xsi:type="PQ " value="10" /> <interpretationCode codeSystem="local" code="*" /> <referenceRange> <observationRange> <text>35-150</ text> </observationRange> </referenceRange> </ observation> </component> </organizer> </entry> <entry> <organizer moodCode="EVN" classCode="BATTERY"> <templateId root= "10.03.840.1.199300.10...4.1" /> <id nullFlavor="NA" /> <code codeSystem="local" code="GLUMON" displayName="GLUCOSE (POC)" /> < statusCode code="completed" /> <component> <observation moodCode= "EVN" classCode="OBS"> <templateId root="10.03.840.1.677586.10..22.4.2 " /> <id nullFlavor="NA" /> <code codeSystem="local" code= "GLUMON" displayName="GLUCOSE (POC)" /> <statusCode code="completed" / > <effectiveTime value="914778422813" /> <value unit="mg/dL" xsi:type="PQ" value="195" /> <interpretationCode codeSystem="local" code="*" /> <referenceRange> <observationRange> <text>70-99</text> </observationRange> </referenceRange> </observation> </component> </organizer> </entry> <entry> < organizer moodCode="EVN" classCode="BATTERY"> <templateId root= "216.840.1.068652.10..22.4.1" /> <id nullFlavor="NA" /> <code codeSystem="local" code="GLUMON" displayName="GLUCOSE (POC)" /> < statusCode code="completed" /> <component> <observation moodCode= "EVN" classCode="OBS"> <templateId root="216.840.1.089685.10..22.4.2 " /> <id nullFlavor="NA" /> <code codeSystem="local" code= "GLUMON" displayName="GLUCOSE (POC)" /> <statusCode code="completed" / > <effectiveTime value="756419514419" /> <value unit="mg/dL" xsi:type="PQ" value="171" /> <interpretationCode codeSystem="local" code="*" /> <referenceRange> <observationRange> <text>70-99</text> </observationRange> </referenceRange> </observation> </component> </organizer> </entry> <entry> < organizer moodCode="EVN" classCode="BATTERY"> <templateId root= "216.840.1.210820.10..22.4.1" /> <id nullFlavor="NA" /> <code codeSystem="local" code="DIMER" displayName="D-DIMER QUANT" /> <statusCode code="completed" /> <component> <observation moodCode="EVN" classCode="OBS"> <templateId root="10.03.840.1.594530.10..22.4.2" /> <id nullFlavor="NA" /> <code codeSystem="local" code="DIMER" displayName="D-DIMER QUANT" /> <statusCode code="completed" /> <effectiveTime value="093147469959" /> <value unit="ng/mL" xsi:type= "PQ" value="210" /> <referenceRange> <observationRange> <text>0-229</text> </observationRange> </ referenceRange> </observation> </component> </organizer> </entry > <entry> <organizer moodCode="EVN" classCode="BATTERY"> <templateId root="10.03.840.1.759768.10..22.4.1" /> <id nullFlavor="NA" /> <code codeSystem="local" code="iCHEM8" displayName="CHEM/HEM PROFILE-BEDSIDE" /> <statusCode code="completed" /> <component> <observation moodCode= "EVN" classCode="OBS"> <templateId root="10.03.840.1.262761.10..22.4.2 " /> <id nullFlavor="NA" /> <code codeSystem="local" code="K" displayName="POTASSIUM" /> <statusCode code="completed" /> < effectiveTime value="085003667827" /> <value unit="mmol/L" xsi:type="PQ " value="3.7" /> <referenceRange> <observationRange> <text>3.5-5.3</text> </observationRange> </ referenceRange> </observation> </component> <component> <observation moodCode="EVN" classCode="OBS"> <templateId root= "10.03.840.1.635873.06.06.22.4.2" /> <id nullFlavor="NA" /> < code codeSystem="local" code="CMETHOD" displayName="METHOD" /> < statusCode code="completed" /> <effectiveTime value="" /> <value unit="" xsi:type="PQ" value="Bedside" /> < referenceRange> <observationRange> <text /> < /observationRange> </referenceRange> </observation> </ component> <component> <observation moodCode="EVN" classCode="OBS"> <templateId root="216.840.1.948235...4.2" /> <id nullFlavor="NA" /> <code codeSystem="local" code="GAP" displayName= "ANION GAP" /> <statusCode code="completed" /> <effectiveTime value="" /> <value unit="mmol/L" xsi:type="PQ" value="20" / > <referenceRange> <observationRange> <text>10- 20</text> </observationRange> </referenceRange> </ observation> </component> <component> <observation moodCode= "EVN" classCode="OBS"> <templateId root="16.840.1.589013.10..22.4.2 " /> <id nullFlavor="NA" /> <code codeSystem="local" code= "HMETHOD" displayName="METHOD" /> <statusCode code="completed" /> <effectiveTime value="" /> <value unit="" xsi:type="PQ " value="Bedside" /> <referenceRange> <observationRange> <text /> </observationRange> </referenceRange> </observation> </component> <component> <observation moodCode="EVN" classCode="OBS"> <templateId root= "10.03.840.1.277895.22.4.2" /> <id nullFlavor="NA" /> < code codeSystem="local" code="GLU" displayName="GLUCOSE" /> < statusCode code="completed" /> <effectiveTime value="" /> <value unit="mg/dL" xsi:type="PQ" value="112" /> < interpretationCode codeSystem="local" code="*" /> <referenceRange> <observationRange> <text>70-99</text> </ observationRange> </referenceRange> </observation> </ component> <component> <observation moodCode="EVN" classCode="OBS"> <templateId root="16.840.1.272414.06.06.22.4.2" /> <id nullFlavor="NA" /> <code codeSystem="local" code="BUN" displayName= "BLOOD UREA NITROGEN" /> <statusCode code="completed" /> < effectiveTime value="" /> <value unit="mg/dL" xsi:type="PQ " value="18" /> <referenceRange> <observationRange> <text>7-20</text> </observationRange> </referenceRange > </observation> </component> <component> <observation moodCode="EVN" classCode="OBS"> <templateId root= "16.840.1.440961.06.06.22.4.2" /> <id nullFlavor="NA" /> < code codeSystem="local" code="CREAT" displayName="CREATININE" /> < statusCode code="completed" /> <effectiveTime value="" /> <value unit="mg/dL" xsi:type="PQ" value="0.9" /> < referenceRange> <observationRange> <text>0.6-1.0</text> </observationRange> </referenceRange> </observation > </component> <component> <observation moodCode="EVN" classCode="OBS"> <templateId root="216.840.1.517574.10..4.2" /> <id nullFlavor="NA" /> <code codeSystem="local" code="HGBT" displayName="HEMOGLOBIN" /> <statusCode code="completed" /> < effectiveTime value="" /> <value unit="gm/dL" xsi:type="PQ " value="11.2" /> <interpretationCode codeSystem="local" code="*" /> <referenceRange> <observationRange> <text>12.0- 16.0</text> </observationRange> </referenceRange> </ observation> </component> <component> <observation moodCode= "EVN" classCode="OBS"> <templateId root="10.03.840.1.845182.06.06.22.4.2 " /> <id nullFlavor="NA" /> <code codeSystem="local" code= "HCTT" displayName="HEMATOCRIT" /> <statusCode code="completed" /> <effectiveTime value="" /> <value unit="%" xsi: type="PQ" value="33.0" /> <interpretationCode codeSystem="local" code= "*" /> <referenceRange> <observationRange> < text>37.0-47.0</text> </observationRange> </referenceRange> </observation> </component> <component> <observation moodCode="EVN" classCode="OBS"> <templateId root= "10.03.840.1.504560.10.22.4.2" /> <id nullFlavor="NA" /> < code codeSystem="local" code="NA" displayName="SODIUM" /> <statusCode code="completed" /> <effectiveTime value="" /> < value unit="mmol/L" xsi:type="PQ" value="136" /> <referenceRange> <observationRange> <text>135-148</text> </ observationRange> </referenceRange> </observation> </ component> <component> <observation moodCode="EVN" classCode="OBS"> <templateId root="216.840.1.853661.10.22.4.2" /> <id nullFlavor="NA" /> <code codeSystem="local" code="CL" displayName= "CHLORIDE" /> <statusCode code="completed" /> <effectiveTime value="" /> <value unit="mmol/L" xsi:type="PQ" value="98" / > <referenceRange> <observationRange> <text>98- 110</text> </observationRange> </referenceRange> </ observation> </component> <component> <observation moodCode= "EVN" classCode="OBS"> <templateId root="10.03.840.1.731739..22.4.2 " /> <id nullFlavor="NA" /> <code codeSystem="local" code="CO2 " displayName="CARBON DIOXIDE" /> <statusCode code="completed" /> <effectiveTime value="" /> <value unit="mmol/L" xsi: type="PQ" value="22" /> <referenceRange> <observationRange> <text>21-32</text> </observationRange> </ referenceRange> </observation> </component> <component> <observation moodCode="EVN" classCode="OBS"> <templateId root= "216.840.1.138071.10.20.22.4.2" /> <id nullFlavor="NA" /> < code codeSystem="local" code="CAION" displayName="CALCIUM IONIZED" /> < statusCode code="completed" /> <effectiveTime value="510010458239" /> <value unit="mg/dL" xsi:type="PQ" value="5.0" /> < referenceRange> <observationRange> <text>4.5-5.3</text> </observationRange> </referenceRange> </observation > </component> </organizer> </entry> <entry> <organizer moodCode= "EVN" classCode="BATTERY"> <templateId root="216.840.1.570479.10.20.22.4.1 " /> <id nullFlavor="NA" /> <code codeSystem="local" code="iCHEM8" displayName="CHEM/HEM PROFILE-BEDSIDE" /> <statusCode code="completed" /> <component> <observation moodCode="EVN" classCode="OBS"> < templateId root="216.840.1.604009.10.20.22.4.2" /> <id nullFlavor="NA " /> <code codeSystem="local" code="K" displayName="POTASSIUM" /> <statusCode code="completed" /> <effectiveTime value="753453696750 " /> <value unit="mmol/L" xsi:type="PQ" value="4.1" /> < referenceRange> <observationRange> <text>3.5-5.3</text> </observationRange> </referenceRange> </observation > </component> <component> <observation moodCode="EVN" classCode="OBS"> <templateId root="16.840.1.122995.10.20.22.4.2" /> <id nullFlavor="NA" /> <code codeSystem="local" code="CMETHOD " displayName="METHOD" /> <statusCode code="completed" /> < effectiveTime value="" /> <value unit="" xsi:type="PQ" value="Bedside" /> <referenceRange> <observationRange> <text /> </observationRange> </referenceRange> </observation> </component> <component> <observation moodCode="EVN" classCode="OBS"> <templateId root= "216.840.1.932709...4.2" /> <id nullFlavor="NA" /> < code codeSystem="local" code="GAP" displayName="ANION GAP" /> < statusCode code="completed" /> <effectiveTime value="" /> <value unit="mmol/L" xsi:type="PQ" value="18" /> < referenceRange> <observationRange> <text>10-20</text> </observationRange> </referenceRange> </observation> </component> <component> <observation moodCode="EVN" classCode= "OBS"> <templateId root="10.03.840.1.018727.06.06.22.4.2" /> < id nullFlavor="NA" /> <code codeSystem="local" code="HMETHOD" displayName="METHOD" /> <statusCode code="completed" /> < effectiveTime value="" /> <value unit="" xsi:type="PQ" value="Bedside" /> <referenceRange> <observationRange> <text /> </observationRange> </referenceRange> </observation> </component> <component> <observation moodCode="EVN" classCode="OBS"> <templateId root= "16.840.1.900632.10..22.4.2" /> <id nullFlavor="NA" /> < code codeSystem="local" code="GLU" displayName="GLUCOSE" /> < statusCode code="completed" /> <effectiveTime value="730548452329" /> <value unit="mg/dL" xsi:type="PQ" value="121" /> < interpretationCode codeSystem="local" code="*" /> <referenceRange> <observationRange> <text>70-99</text> </ observationRange> </referenceRange> </observation> </ component> <component> <observation moodCode="EVN" classCode="OBS"> <templateId root="216.840.1.776648.10..22.4.2" /> <id nullFlavor="NA" /> <code codeSystem="local" code="BUN" displayName= "BLOOD UREA NITROGEN" /> <statusCode code="completed" /> < effectiveTime value="582585066808" /> <value unit="mg/dL" xsi:type="PQ " value="21" /> <interpretationCode codeSystem="local" code="*" /> <referenceRange> <observationRange> <text>7-20</ text> </observationRange> </referenceRange> </ observation> </component> <component> <observation moodCode= "EVN" classCode="OBS"> <templateId root="216.840.1.788213.10.20.22.4.2 " /> <id nullFlavor="NA" /> <code codeSystem="local" code= "CREAT" displayName="CREATININE" /> <statusCode code="completed" /> <effectiveTime value="020874121558" /> <value unit="mg/dL" xsi: type="PQ" value="1.1" /> <interpretationCode codeSystem="local" code="* " /> <referenceRange> <observationRange> <text> 0.6-1.0</text> </observationRange> </referenceRange> </observation> </component> <component> <observation moodCode= "EVN" classCode="OBS"> <templateId root="216.840.1.467651.10..4.2 " /> <id nullFlavor="NA" /> <code codeSystem="local" code= "HGBT" displayName="HEMOGLOBIN" /> <statusCode code="completed" /> <effectiveTime value="" /> <value unit="gm/dL" xsi: type="PQ" value="9.2" /> <interpretationCode codeSystem="local" code="* " /> <referenceRange> <observationRange> <text> 12.0-16.0</text> </observationRange> </referenceRange> </observation> </component> <component> <observation moodCode="EVN" classCode="OBS"> <templateId root= "216.840.1.459134.06.06.224.2" /> <id nullFlavor="NA" /> < code codeSystem="local" code="HCTT" displayName="HEMATOCRIT" /> < statusCode code="completed" /> <effectiveTime value="" /> <value unit="%" xsi:type="PQ" value="27.0" /> < interpretationCode codeSystem="local" code="*" /> <referenceRange> <observationRange> <text>37.0-47.0</text> </ observationRange> </referenceRange> </observation> </ component> <component> <observation moodCode="EVN" classCode="OBS"> <templateId root="216.840.1.223593.10..4.2" /> <id nullFlavor="NA" /> <code codeSystem="local" code="NA" displayName= "SODIUM" /> <statusCode code="completed" /> <effectiveTime value="634403634274" /> <value unit="mmol/L" xsi:type="PQ" value="137" /> <referenceRange> <observationRange> <text> 135-148</text> </observationRange> </referenceRange> </observation> </component> <component> <observation moodCode= "EVN" classCode="OBS"> <templateId root="216.840.1.907204.10...4.2 " /> <id nullFlavor="NA" /> <code codeSystem="local" code="CL " displayName="CHLORIDE" /> <statusCode code="completed" /> < effectiveTime value="" /> <value unit="mmol/L" xsi:type="PQ " value="103" /> <referenceRange> <observationRange> <text>98-110</text> </observationRange> </ referenceRange> </observation> </component> <component> <observation moodCode="EVN" classCode="OBS"> <templateId root= "16.840.1.914448.10...4.2" /> <id nullFlavor="NA" /> < code codeSystem="local" code="CO2" displayName="CARBON DIOXIDE" /> < statusCode code="completed" /> <effectiveTime value="870476752691" /> <value unit="mmol/L" xsi:type="PQ" value="21" /> < referenceRange> <observationRange> <text>21-32</text> </observationRange> </referenceRange> </observation> </component> <component> <observation moodCode="EVN" classCode= "OBS"> <templateId root="216.840.1.742026.10..22.4.2" /> < id nullFlavor="NA" /> <code codeSystem="local" code="CAION" displayName ="CALCIUM IONIZED" /> <statusCode code="completed" /> < effectiveTime value="747262432880" /> <value unit="mg/dL" xsi:type="PQ " value="5.2" /> <referenceRange> <observationRange> <text>4.5-5.3</text> </observationRange> </ referenceRange> </observation> </component> </organizer> </entry > <entry> <organizer moodCode="EVN" classCode="BATTERY"> <templateId root="216.840.1.374199.10.20.22.4.1" /> <id nullFlavor="NA" /> <code codeSystem="local" code="iTROPI" displayName="TROPONIN I BEDSIDE" /> < statusCode code="completed" /> <component> <observation moodCode= "EVN" classCode="OBS"> <templateId root="216.840.1.717470.10..22.4.2 " /> <id nullFlavor="NA" /> <code codeSystem="local" code= "CMETHOD" displayName="METHOD" /> <statusCode code="completed" /> <effectiveTime value="518218295466" /> <value unit="" xsi:type="PQ " value="Bedside" /> <referenceRange> <observationRange> <text /> </observationRange> </referenceRange> </observation> </component> <component> <observation moodCode="EVN" classCode="OBS"> <templateId root= "216.840.1.586609.10..22.4.2" /> <id nullFlavor="NA" /> < code codeSystem="local" code="TROPI" displayName="TROPONIN I" /> < statusCode code="completed" /> <effectiveTime value="914142027243" /> <value unit="ng/mL" xsi:type="PQ" value="< 0.04" /> < referenceRange> <observationRange> <text>< 0.11</text > </observationRange> </referenceRange> </observation > </component> </organizer> </entry> <entry> <organizer moodCode= "EVN" classCode="BATTERY"> <templateId root="16.840.1.780926.10..22.4.1 " /> <id nullFlavor="NA" /> <code codeSystem="local" code="UA" displayName="URINALYSIS, ROUTINE" /> <statusCode code="completed" /> < component> <observation moodCode="EVN" classCode="OBS"> < templateId root="216.840.1.550849.10...4.2" /> <id nullFlavor="NA " /> <code codeSystem="local" code="LEUESU" displayName="UA LEUKOCYTE ESTERASE DIPSTICK" /> <statusCode code="completed" /> < effectiveTime value="" /> <value unit="" xsi:type="PQ" value="NEGATIVE" /> <referenceRange> <observationRange> <text>NEGATIVE</text> </observationRange> </ referenceRange> </observation> </component> <component> <observation moodCode="EVN" classCode="OBS"> <templateId root= "16.840.1.984136.10...4.2" /> <id nullFlavor="NA" /> < code codeSystem="local" code="NITRIU" displayName="UA NITRITE DIPSTICK" /> <statusCode code="completed" /> <effectiveTime value=" " /> <value unit="" xsi:type="PQ" value="NEGATIVE" /> < referenceRange> <observationRange> <text>NEGATIVE</text > </observationRange> </referenceRange> </observation > </component> <component> <observation moodCode="EVN" classCode="OBS"> <templateId root="216.840.1.547178.06.06.22.4.2" /> <id nullFlavor="NA" /> <code codeSystem="local" code="PROTEIU " displayName="UA PROTEIN DIPSTICK" /> <statusCode code="completed" /> <effectiveTime value="" /> <value unit="" xsi: type="PQ" value="NEGATIVE" /> <referenceRange> < observationRange> <text>NEGATIVE</text> </ observationRange> </referenceRange> </observation> </ component> <component> <observation moodCode="EVN" classCode="OBS"> <templateId root="10.03.840.1.880484.06.06.224.2" /> <id nullFlavor="NA" /> <code codeSystem="local" code="DGLUU" displayName= "UA GLUCOSE DIPSTICK" /> <statusCode code="completed" /> < effectiveTime value="" /> <value unit="" xsi:type="PQ" value="NEGATIVE" /> <referenceRange> <observationRange> <text>NEGATIVE</text> </observationRange> </ referenceRange> </observation> </component> <component> <observation moodCode="EVN" classCode="OBS"> <templateId root= "10.03.840.1.476902.06.06.22.4.2" /> <id nullFlavor="NA" /> < code codeSystem="local" code="KETONU" displayName="UA KETONE DIPSTICK" /> <statusCode code="completed" /> <effectiveTime value=" " /> <value unit="" xsi:type="PQ" value="NEGATIVE" /> < referenceRange> <observationRange> <text>NEGATIVE</text > </observationRange> </referenceRange> </observation > </component> <component> <observation moodCode="EVN" classCode="OBS"> <templateId root="10.03.840.1.478235.10.4.2" /> <id nullFlavor="NA" /> <code codeSystem="local" code="UROBILU " displayName="UA UROBILINOGEN DIPSTICK" /> <statusCode code="completed " /> <effectiveTime value="" /> <value unit="" xsi :type="PQ" value="NORMAL" /> <referenceRange> < observationRange> <text>NORMAL</text> </observationRange > </referenceRange> </observation> </component> < component> <observation moodCode="EVN" classCode="OBS"> < templateId root="10.03.840.1.740859.06.06.22.4.2" /> <id nullFlavor="NA " /> <code codeSystem="local" code="BILU" displayName="UA BILIRUBIN DIPSTICK" /> <statusCode code="completed" /> <effectiveTime value="" /> <value unit="" xsi:type="PQ" value="NEGATIVE" / > <referenceRange> <observationRange> <text> NEGATIVE</text> </observationRange> </referenceRange> </observation> </component> <component> <observation moodCode ="EVN" classCode="OBS"> <templateId root= "10.03.840.1.267402.10.4.2" /> <id nullFlavor="NA" /> < code codeSystem="local" code="ADAM" displayName="UA BLOOD DIPSTICK" /> < statusCode code="completed" /> <effectiveTime value="" /> <value unit="" xsi:type="PQ" value="NEGATIVE" /> < referenceRange> <observationRange> <text>NEGATIVE</text > </observationRange> </referenceRange> </observation > </component> <component> <observation moodCode="EVN" classCode="OBS"> <templateId root="216.840.1.948754.10...4.2" /> <id nullFlavor="NA" /> <code codeSystem="local" code="SPGRU" displayName="UA SPECIFIC GRAVITY" /> <statusCode code="completed" /> <effectiveTime value="" /> <value unit="" xsi:type= "PQ" value="1.015" /> <referenceRange> <observationRange> <text>1.015-1.025</text> </observationRange> </ referenceRange> </observation> </component> <component> <observation moodCode="EVN" classCode="OBS"> <templateId root= "216.840.1.424201.10..4.2" /> <id nullFlavor="NA" /> < code codeSystem="local" code="INGRID" displayName="UR PH" /> <statusCode code="completed" /> <effectiveTime value="" /> < value unit="" xsi:type="PQ" value="6.5" /> <referenceRange> <observationRange> <text>5.0-7.0</text> </ observationRange> </referenceRange> </observation> </ component> </organizer> </entry> <entry> <organizer moodCode="EVN" classCode="BATTERY"> <templateId root="2.16.840.1.419173.10...4.1" /> <id nullFlavor="NA" /> <code codeSystem="local" code="CBCD" displayName="CBC W/DIFF" /> <statusCode code="completed" /> <component > <observation moodCode="EVN" classCode="OBS"> <templateId root= "10.03.840.1.633755.10...4.2" /> <id nullFlavor="NA" /> < code codeSystem="local" code="BA#" displayName="BASOPHIL #" /> < statusCode code="completed" /> <effectiveTime value="[id number]" /> <value unit="k/cumm" xsi:type="PQ" value="0.1" /> < referenceRange> <observationRange> <text>0.0-0.2</text> </observationRange> </referenceRange> </observation > </component> <component> <observation moodCode="EVN" classCode="OBS"> <templateId root="840.1.437280.10..4.2" /> <id nullFlavor="NA" /> <code codeSystem="local" code="BA% " displayName="BASOPHIL %" /> <statusCode code="completed" /> <effectiveTime value="142586391232" /> <value unit="%" xsi: type="PQ" value="2" /> <interpretationCode codeSystem="local" code="*" /> <referenceRange> <observationRange> <text>0- 1</text> </observationRange> </referenceRange> </ observation> </component> <component> <observation moodCode= "EVN" classCode="OBS"> <templateId root="10.03.840.1.603770.10...4.2 " /> <id nullFlavor="NA" /> <code codeSystem="local" code= "CBCCOM" displayName="COMMENT" /> <statusCode code="completed" /> <effectiveTime value="" /> <value unit="" xsi:type="PQ " value="REVIEWED" /> <referenceRange> <observationRange> <text /> </observationRange> </referenceRange> </observation> </component> <component> <observation moodCode="EVN" classCode="OBS"> <templateId root= "216.840.1.561192.10...4.2" /> <id nullFlavor="NA" /> < code codeSystem="local" code="EO#" displayName="EOSINOPHIL #" /> < statusCode code="completed" /> <effectiveTime value="" /> <value unit="k/cumm" xsi:type="PQ" value="0.2" /> < referenceRange> <observationRange> <text>0.1-0.5</text> </observationRange> </referenceRange> </observation > </component> <component> <observation moodCode="EVN" classCode="OBS"> <templateId root="16.840.1.723698.10...4.2" /> <id nullFlavor="NA" /> <code codeSystem="local" code="EO% " displayName="EOSINOPHIL %" /> <statusCode code="completed" /> <effectiveTime value="" /> <value unit="%" xsi: type="PQ" value="3" /> <referenceRange> <observationRange> <text>2-4</text> </observationRange> </ referenceRange> </observation> </component> <component> <observation moodCode="EVN" classCode="OBS"> <templateId root= "10.03.840.1.624694.06.06.22.4.2" /> <id nullFlavor="NA" /> < code codeSystem="local" code="GR#" displayName="GRANULOCYTE #" /> < statusCode code="completed" /> <effectiveTime value="" /> <value unit="k/cumm" xsi:type="PQ" value="2.6" /> < referenceRange> <observationRange> <text>2.0-9.0</text> </observationRange> </referenceRange> </observation > </component> <component> <observation moodCode="EVN" classCode="OBS"> <templateId root="2.16.840.1.338921.06.06.224.2" /> <id nullFlavor="NA" /> <code codeSystem="local" code="GR% " displayName="GRANULOCYTE %" /> <statusCode code="completed" /> <effectiveTime value="" /> <value unit="%" xsi: type="PQ" value="50" /> <referenceRange> <observationRange> <text>50-75</text> </observationRange> </ referenceRange> </observation> </component> <component> <observation moodCode="EVN" classCode="OBS"> <templateId root= "2.16.840.1.814898.06.06.22.4.2" /> <id nullFlavor="NA" /> < code codeSystem="local" code="LY#" displayName="LYMPHOCYTE #" /> < statusCode code="completed" /> <effectiveTime value="" /> <value unit="k/cumm" xsi:type="PQ" value="1.6" /> < referenceRange> <observationRange> <text>1.0-4.0</text> </observationRange> </referenceRange> </observation > </component> <component> <observation moodCode="EVN" classCode="OBS"> <templateId root="2.840.1.405007.10..4.2" /> <id nullFlavor="NA" /> <code codeSystem="local" code="LY% " displayName="LYMPHOCYTE %" /> <statusCode code="completed" /> <effectiveTime value="" /> <value unit="%" xsi: type="PQ" value="31" /> <interpretationCode codeSystem="local" code="* " /> <referenceRange> <observationRange> <text> 20-30</text> </observationRange> </referenceRange> </ observation> </component> <component> <observation moodCode= "EVN" classCode="OBS"> <templateId root="10.03.840.1.762249.06.06.224.2 " /> <id nullFlavor="NA" /> <code codeSystem="local" code="MCH " displayName="MEAN CELL HGB" /> <statusCode code="completed" /> <effectiveTime value="" /> <value unit="pg" xsi:type= "PQ" value="22.8" /> <interpretationCode codeSystem="local" code="*" / > <referenceRange> <observationRange> <text> 27.0-33.0</text> </observationRange> </referenceRange> </observation> </component> <component> <observation moodCode="EVN" classCode="OBS"> <templateId root= "10.03.840.1.364111.06.06.22.4.2" /> <id nullFlavor="NA" /> < code codeSystem="local" code="MCHC" displayName="MEAN CELL HGB CONCENTRATION" / > <statusCode code="completed" /> <effectiveTime value= "" /> <value unit="g/dL" xsi:type="PQ" value="30.8" /> <interpretationCode codeSystem="local" code="*" /> < referenceRange> <observationRange> <text>32.0-37.0</text > </observationRange> </referenceRange> </observation > </component> <component> <observation moodCode="EVN" classCode="OBS"> <templateId root="216.840.1.867903.10.20.22.4.2" /> <id nullFlavor="NA" /> <code codeSystem="local" code="MCV" displayName="MEAN CELL VOLUME" /> <statusCode code="completed" /> <effectiveTime value="" /> <value unit="fl" xsi:type= "PQ" value="74.0" /> <interpretationCode codeSystem="local" code="*" / > <referenceRange> <observationRange> <text> 80.0-100.0</text> </observationRange> </referenceRange> </observation> </component> <component> <observation moodCode="EVN" classCode="OBS"> <templateId root= "16.840.1.585187.10.20.22.4.2" /> <id nullFlavor="NA" /> < code codeSystem="local" code="MO#" displayName="MONOCYTE #" /> < statusCode code="completed" /> <effectiveTime value="" /> <value unit="k/cumm" xsi:type="PQ" value="0.8" /> < referenceRange> <observationRange> <text>0.1-1.0</text> </observationRange> </referenceRange> </observation > </component> <component> <observation moodCode="EVN" classCode="OBS"> <templateId root="216.840.1.005563.10..22.4.2" /> <id nullFlavor="NA" /> <code codeSystem="local" code="MO% " displayName="MONOCYTE %" /> <statusCode code="completed" /> <effectiveTime value="" /> <value unit="%" xsi: type="PQ" value="15" /> <interpretationCode codeSystem="local" code="* " /> <referenceRange> <observationRange> <text> 4-6</text> </observationRange> </referenceRange> </ observation> </component> <component> <observation moodCode= "EVN" classCode="OBS"> <templateId root="10.03.840.1.963427.06.06.224.2 " /> <id nullFlavor="NA" /> <code codeSystem="local" code="RBC " displayName="RED BLOOD CELL" /> <statusCode code="completed" /> <effectiveTime value="" /> <value unit="m/cumm" xsi: type="PQ" value="3.69" /> <interpretationCode codeSystem="local" code= "*" /> <referenceRange> <observationRange> < text>4.00-6.00</text> </observationRange> </referenceRange> </observation> </component> <component> <observation moodCode="EVN" classCode="OBS"> <templateId root= "16.840.1.355404...22.4.2" /> <id nullFlavor="NA" /> < code codeSystem="local" code="RDW" displayName="RED CELL DISTRIBUTION WIDTH" /> <statusCode code="completed" /> <effectiveTime value= "" /> <value unit="%" xsi:type="PQ" value="18.6" /> <interpretationCode codeSystem="local" code="*" /> < referenceRange> <observationRange> <text>11.0-15.6</text > </observationRange> </referenceRange> </observation > </component> <component> <observation moodCode="EVN" classCode="OBS"> <templateId root="16.840.1.890696.06.06.22.4.2" /> <id nullFlavor="NA" /> <code codeSystem="local" code="WBC" displayName="WHITE BLOOD CELL" /> <statusCode code="completed" /> <effectiveTime value="" /> <value unit="k/cumm" xsi: type="PQ" value="5.2" /> <referenceRange> <observationRange > <text>5.0-10.0</text> </observationRange> </ referenceRange> </observation> </component> <component> <observation moodCode="EVN" classCode="OBS"> <templateId root= "10.03.840.1.411626....4.2" /> <id nullFlavor="NA" /> < code codeSystem="local" code="HGBT" displayName="HEMOGLOBIN" /> < statusCode code="completed" /> <effectiveTime value="" /> <value unit="gm/dL" xsi:type="PQ" value="8.4" /> < interpretationCode codeSystem="local" code="*" /> <referenceRange> <observationRange> <text>12.0-16.0</text> </ observationRange> </referenceRange> </observation> </ component> <component> <observation moodCode="EVN" classCode="OBS"> <templateId root="840.1.765599.10.22.4.2" /> <id nullFlavor="NA" /> <code codeSystem="local" code="HCTT" displayName= "HEMATOCRIT" /> <statusCode code="completed" /> < effectiveTime value="905599737974" /> <value unit="%" xsi:type="PQ " value="27.3" /> <interpretationCode codeSystem="local" code="*" /> <referenceRange> <observationRange> <text>37.0- 47.0</text> </observationRange> </referenceRange> </ observation> </component> <component> <observation moodCode= "EVN" classCode="OBS"> <templateId root="840.1.245691.06.06.22.4.2 " /> <id nullFlavor="NA" /> <code codeSystem="local" code="PLT " displayName="PLATELET COUNT" /> <statusCode code="completed" /> <effectiveTime value="" /> <value unit="k/cumm" xsi: type="PQ" value="327" /> <referenceRange> <observationRange > <text>150-400</text> </observationRange> </ referenceRange> </observation> </component> </organizer> </entry > <entry> <organizer moodCode="EVN" classCode="BATTERY"> <templateId root="10.03.840.1.655852.1022.4.1" /> <id nullFlavor="NA" /> <code codeSystem="local" code="iTROPI" displayName="TROPONIN I BEDSIDE" /> < statusCode code="completed" /> <component> <observation moodCode= "EVN" classCode="OBS"> <templateId root="10.03.840.1.682761.06.06.22.4.2 " /> <id nullFlavor="NA" /> <code codeSystem="local" code= "CMETHOD" displayName="METHOD" /> <statusCode code="completed" /> <effectiveTime value="" /> <value unit="" xsi:type="PQ " value="Bedside" /> <referenceRange> <observationRange> <text /> </observationRange> </referenceRange> </observation> </component> <component> <observation moodCode="EVN" classCode="OBS"> <templateId root= "16.840.1.417174.06.06.22.4.2" /> <id nullFlavor="NA" /> < code codeSystem="local" code="TROPI" displayName="TROPONIN I" /> < statusCode code="completed" /> <effectiveTime value="" /> <value unit="ng/mL" xsi:type="PQ" value="< 0.04" /> < referenceRange> <observationRange> <text>< 0.11</text > </observationRange> </referenceRange> </observation > </component> </organizer> </entry> <entry> <organizer moodCode= "EVN" classCode="BATTERY"> <templateId root="10.03.840.1.515285.06.06.22.4.1 " /> <id nullFlavor="NA" /> <code codeSystem="local" code="UA" displayName="URINALYSIS, ROUTINE" /> <statusCode code="completed" /> < component> <observation moodCode="EVN" classCode="OBS"> < templateId root="16.840.1.843977.06.06.22.4.2" /> <id nullFlavor="NA " /> <code codeSystem="local" code="LEUESU" displayName="UA LEUKOCYTE ESTERASE DIPSTICK" /> <statusCode code="completed" /> < effectiveTime value="414616227278" /> <value unit="" xsi:type="PQ" value="NEGATIVE" /> <referenceRange> <observationRange> <text>NEGATIVE</text> </observationRange> </ referenceRange> </observation> </component> <component> <observation moodCode="EVN" classCode="OBS"> <templateId root= "10.03.840.1.315710.10.4.2" /> <id nullFlavor="NA" /> < code codeSystem="local" code="NITRIU" displayName="UA NITRITE DIPSTICK" /> <statusCode code="completed" /> <effectiveTime value="702917719252 " /> <value unit="" xsi:type="PQ" value="NEGATIVE" /> < referenceRange> <observationRange> <text>NEGATIVE</text > </observationRange> </referenceRange> </observation > </component> <component> <observation moodCode="EVN" classCode="OBS"> <templateId root="10.03.840.1.225558.06.06.22.4.2" /> <id nullFlavor="NA" /> <code codeSystem="local" code="PROTEIU " displayName="UA PROTEIN DIPSTICK" /> <statusCode code="completed" /> <effectiveTime value="834709322241" /> <value unit="" xsi: type="PQ" value="NEGATIVE" /> <referenceRange> < observationRange> <text>NEGATIVE</text> </ observationRange> </referenceRange> </observation> </ component> <component> <observation moodCode="EVN" classCode="OBS"> <templateId root="10.03.840.1.035299.06.06.22.4.2" /> <id nullFlavor="NA" /> <code codeSystem="local" code="DGLUU" displayName= "UA GLUCOSE DIPSTICK" /> <statusCode code="completed" /> < effectiveTime value="290980321744" /> <value unit="" xsi:type="PQ" value="NEGATIVE" /> <referenceRange> <observationRange> <text>NEGATIVE</text> </observationRange> </ referenceRange> </observation> </component> <component> <observation moodCode="EVN" classCode="OBS"> <templateId root= "216.840.1.767345.10.20.22.4.2" /> <id nullFlavor="NA" /> < code codeSystem="local" code="KETONU" displayName="UA KETONE DIPSTICK" /> <statusCode code="completed" /> <effectiveTime value="767433935342 " /> <value unit="" xsi:type="PQ" value="NEGATIVE" /> < referenceRange> <observationRange> <text>NEGATIVE</text > </observationRange> </referenceRange> </observation > </component> <component> <observation moodCode="EVN" classCode="OBS"> <templateId root="16.840.1.901279.10.20.22.4.2" /> <id nullFlavor="NA" /> <code codeSystem="local" code="UROBILU " displayName="UA UROBILINOGEN DIPSTICK" /> <statusCode code="completed " /> <effectiveTime value="189499634233" /> <value unit="" xsi :type="PQ" value="NORMAL" /> <referenceRange> < observationRange> <text>NORMAL</text> </observationRange > </referenceRange> </observation> </component> < component> <observation moodCode="EVN" classCode="OBS"> < templateId root="840.1.789050.10..22.4.2" /> <id nullFlavor="NA " /> <code codeSystem="local" code="BILU" displayName="UA BILIRUBIN DIPSTICK" /> <statusCode code="completed" /> <effectiveTime value="047334372953" /> <value unit="" xsi:type="PQ" value="NEGATIVE" / > <referenceRange> <observationRange> <text> NEGATIVE</text> </observationRange> </referenceRange> </observation> </component> <component> <observation moodCode ="EVN" classCode="OBS"> <templateId root= "2.16.840.1.335687.10.22.4.2" /> <id nullFlavor="NA" /> < code codeSystem="local" code="ADAM" displayName="UA BLOOD DIPSTICK" /> < statusCode code="completed" /> <effectiveTime value="120762021081" /> <value unit="" xsi:type="PQ" value="TRACE" /> < interpretationCode codeSystem="local" code="*" /> <referenceRange> <observationRange> <text>NEGATIVE</text> </ observationRange> </referenceRange> </observation> </ component> <component> <observation moodCode="EVN" classCode="OBS"> <templateId root="216.840.1.937623.10..22.4.2" /> <id nullFlavor="NA" /> <code codeSystem="local" code="SPGRU" displayName= "UA SPECIFIC GRAVITY" /> <statusCode code="completed" /> < effectiveTime value="737119478578" /> <value unit="" xsi:type="PQ" value="1.015" /> <referenceRange> <observationRange> <text>1.015-1.025</text> </observationRange> </ referenceRange> </observation> </component> <component> <observation moodCode="EVN" classCode="OBS"> <templateId root= "216.840.1.904988.06.06.22.4.2" /> <id nullFlavor="NA" /> < code codeSystem="local" code="INGRID" displayName="UR PH" /> <statusCode code="completed" /> <effectiveTime value="620469201432" /> < value unit="" xsi:type="PQ" value="6.0" /> <referenceRange> <observationRange> <text>5.0-7.0</text> </ observationRange> </referenceRange> </observation> </ component> </organizer> </entry> <entry> <organizer moodCode="EVN" classCode="BATTERY"> <templateId root="216.840.1.240243.22.4.1" /> <id nullFlavor="NA" /> <code codeSystem="local" code="UAMICRO" displayName="UA MICROSCOPIC" /> <statusCode code="completed" /> < component> <observation moodCode="EVN" classCode="OBS"> < templateId root="216.840.1.311152.10.22.4.2" /> <id nullFlavor="NA " /> <code codeSystem="local" code="RBCU" displayName="UA RBC" /> <statusCode code="completed" /> <effectiveTime value="144640670960 " /> <value unit="rbc/hpf" xsi:type="PQ" value="0-3" /> < referenceRange> <observationRange> <text>0 - 3</text> </observationRange> </referenceRange> </observation> </component> <component> <observation moodCode="EVN" classCode= "OBS"> <templateId root="10.03.840.1.333574.10..4.2" /> < id nullFlavor="NA" /> <code codeSystem="local" code="UAVOL" displayName ="UA VOLUME FOR EXAM" /> <statusCode code="completed" /> < effectiveTime value="775698256378" /> <value unit="mL" xsi:type="PQ" value="12.0" /> <referenceRange> <observationRange> <text>(12mL STD)</text> </observationRange> </ referenceRange> </observation> </component> <component> <observation moodCode="EVN" classCode="OBS"> <templateId root= "10.03.840.1.262051.06.06.22.4.2" /> <id nullFlavor="NA" /> < code codeSystem="local" code="WBCU" displayName="UA WBC" /> < statusCode code="completed" /> <effectiveTime value="436243944209" /> <value unit="wbc/hpf" xsi:type="PQ" value="0-1" /> < referenceRange> <observationRange> <text>0 - 5</text> </observationRange> </referenceRange> </observation> </component> </organizer> </entry> <entry> <organizer moodCode="EVN " classCode="BATTERY"> <templateId root="16.840.1.895779.06.06.22.4.1" / > <id nullFlavor="NA" /> <code codeSystem="local" code="iCHEM8" displayName="CHEM/HEM PROFILE-BEDSIDE" /> <statusCode code="completed" /> <component> <observation moodCode="EVN" classCode="OBS"> < templateId root="2.840.1.808696.06.06.22.4.2" /> <id nullFlavor="NA " /> <code codeSystem="local" code="K" displayName="POTASSIUM" /> <statusCode code="completed" /> <effectiveTime value="501807349827 " /> <value unit="mmol/L" xsi:type="PQ" value="4.1" /> < referenceRange> <observationRange> <text>3.5-5.3</text> </observationRange> </referenceRange> </observation > </component> <component> <observation moodCode="EVN" classCode="OBS"> <templateId root="216.840.1.969573.06.06.22.4.2" /> <id nullFlavor="NA" /> <code codeSystem="local" code="CMETHOD " displayName="METHOD" /> <statusCode code="completed" /> < effectiveTime value="696293071517" /> <value unit="" xsi:type="PQ" value="Bedside" /> <referenceRange> <observationRange> <text /> </observationRange> </referenceRange> </observation> </component> <component> <observation moodCode="EVN" classCode="OBS"> <templateId root= "216.840.1.813883....4.2" /> <id nullFlavor="NA" /> < code codeSystem="local" code="GAP" displayName="ANION GAP" /> < statusCode code="completed" /> <effectiveTime value="137901954797" /> <value unit="mmol/L" xsi:type="PQ" value="17" /> < referenceRange> <observationRange> <text>10-20</text> </observationRange> </referenceRange> </observation> </component> <component> <observation moodCode="EVN" classCode= "OBS"> <templateId root="216.840.1.441857.10..22.4.2" /> < id nullFlavor="NA" /> <code codeSystem="local" code="HMETHOD" displayName="METHOD" /> <statusCode code="completed" /> < effectiveTime value="482901098203" /> <value unit="" xsi:type="PQ" value="Bedside" /> <referenceRange> <observationRange> <text /> </observationRange> </referenceRange> </observation> </component> <component> <observation moodCode="EVN" classCode="OBS"> <templateId root= "216.840.1.498743...4.2" /> <id nullFlavor="NA" /> < code codeSystem="local" code="GLU" displayName="GLUCOSE" /> < statusCode code="completed" /> <effectiveTime value="018849250716" /> <value unit="mg/dL" xsi:type="PQ" value="114" /> < interpretationCode codeSystem="local" code="*" /> <referenceRange> <observationRange> <text>70-99</text> </ observationRange> </referenceRange> </observation> </ component> <component> <observation moodCode="EVN" classCode="OBS"> <templateId root="16.840.1.484949...22.4.2" /> <id nullFlavor="NA" /> <code codeSystem="local" code="BUN" displayName= "BLOOD UREA NITROGEN" /> <statusCode code="completed" /> < effectiveTime value="197193857749" /> <value unit="mg/dL" xsi:type="PQ " value="15" /> <referenceRange> <observationRange> <text>7-20</text> </observationRange> </referenceRange > </observation> </component> <component> <observation moodCode="EVN" classCode="OBS"> <templateId root= "216.840.1.951479.10..22.4.2" /> <id nullFlavor="NA" /> < code codeSystem="local" code="CREAT" displayName="CREATININE" /> < statusCode code="completed" /> <effectiveTime value="132166269093" /> <value unit="mg/dL" xsi:type="PQ" value="0.9" /> < referenceRange> <observationRange> <text>0.6-1.0</text> </observationRange> </referenceRange> </observation > </component> <component> <observation moodCode="EVN" classCode="OBS"> <templateId root="216.840.1.253202.06.06.22.4.2" /> <id nullFlavor="NA" /> <code codeSystem="local" code="HGBT" displayName="HEMOGLOBIN" /> <statusCode code="completed" /> < effectiveTime value="800945884634" /> <value unit="gm/dL" xsi:type="PQ " value="11.9" /> <interpretationCode codeSystem="local" code="*" /> <referenceRange> <observationRange> <text>12.0- 16.0</text> </observationRange> </referenceRange> </ observation> </component> <component> <observation moodCode= "EVN" classCode="OBS"> <templateId root="216.840.1.405037..22.4.2 " /> <id nullFlavor="NA" /> <code codeSystem="local" code= "HCTT" displayName="HEMATOCRIT" /> <statusCode code="completed" /> <effectiveTime value="641474725491" /> <value unit="%" xsi: type="PQ" value="35.0" /> <interpretationCode codeSystem="local" code= "*" /> <referenceRange> <observationRange> < text>37.0-47.0</text> </observationRange> </referenceRange> </observation> </component> <component> <observation moodCode="EVN" classCode="OBS"> <templateId root= "10.03.840.1.097973.10..4.2" /> <id nullFlavor="NA" /> < code codeSystem="local" code="NA" displayName="SODIUM" /> <statusCode code="completed" /> <effectiveTime value="672283319337" /> < value unit="mmol/L" xsi:type="PQ" value="132" /> <interpretationCode codeSystem="local" code="*" /> <referenceRange> < observationRange> <text>135-148</text> </ observationRange> </referenceRange> </observation> </ component> <component> <observation moodCode="EVN" classCode="OBS"> <templateId root="10.03.840.1.845411.10...4.2" /> <id nullFlavor="NA" /> <code codeSystem="local" code="CL" displayName= "CHLORIDE" /> <statusCode code="completed" /> <effectiveTime value="302245074507" /> <value unit="mmol/L" xsi:type="PQ" value="97" / > <interpretationCode codeSystem="local" code="*" /> < referenceRange> <observationRange> <text>98-110</text> </observationRange> </referenceRange> </observation> </component> <component> <observation moodCode="EVN" classCode ="OBS"> <templateId root="10.03.830.1.160087.22.4.2" /> < id nullFlavor="NA" /> <code codeSystem="local" code="CO2" displayName= "CARBON DIOXIDE" /> <statusCode code="completed" /> < effectiveTime value="237355370641" /> <value unit="mmol/L" xsi:type="PQ " value="22" /> <referenceRange> <observationRange> <text>21-32</text> </observationRange> </ referenceRange> </observation> </component> <component> <observation moodCode="EVN" classCode="OBS"> <templateId root= "840.1.947714.06.06.22.4.2" /> <id nullFlavor="NA" /> < code codeSystem="local" code="CAION" displayName="CALCIUM IONIZED" /> < statusCode code="completed" /> <effectiveTime value="101697779948" /> <value unit="mg/dL" xsi:type="PQ" value="4.7" /> < referenceRange> <observationRange> <text>4.5-5.3</text> </observationRange> </referenceRange> </observation > </component> </organizer> </entry> <entry> <organizer moodCode= "EVN" classCode="BATTERY"> <templateId root="840.1.236970.22.4.1 " /> <id nullFlavor="NA" /> <code codeSystem="local" code="WET" displayName="WET MOUNT" /> <statusCode code="completed" /> <component > <observation moodCode="EVN" classCode="OBS"> <templateId root= "840.1.763000.22.4.2" /> <id nullFlavor="NA" /> < code codeSystem="local" code="MB" displayName="Microbiology" /> < statusCode code="completed" /> <effectiveTime value="685789918422" /> <value xsi:type="ST" value="<pre><b>WET MOUNT</b> See BelowWET MOUNT(F ) Cosme Date/Time: 04/27/2016 : Irvin Date/Time: 04/27/2016 18:42SOURCE: VAGINALSPEC DESC: CLUE CELLSNO CLUE CELLS SEENTRICHOMONASNO TRICHOMONAS SEENWBCMANY WBCYEASTNO YEAST SEENSANF[facility]ISMARCK[address] [place] [address]</pre>" /> <referenceRange > <observationRange> <text /> </ observationRange> </referenceRange> </observation> </ component> </organizer> </entry> <entry> <organizer moodCode="EVN" classCode="BATTERY"> <templateId root="2.16.840.1.396431.10.20.22.4.1" /> <id nullFlavor="NA" /> <code codeSystem="local" code="UA" displayName= "URINALYSIS, ROUTINE" /> <statusCode code="completed" /> <component> <observation moodCode="EVN" classCode="OBS"> <templateId root= "2.16.840.1.497982.10.20.22.4.2" /> <id nullFlavor="NA" /> < code codeSystem="local" code="LEUESU" displayName="UA LEUKOCYTE ESTERASE DIPSTICK" /> <statusCode code="completed" /> <effectiveTime value="559805338131" /> <value unit="" xsi:type="PQ" value="TRACE" /> <referenceRange> <observationRange> <text> NEGATIVE</text> </observationRange> </referenceRange> </observation> </component> <component> <observation moodCode ="EVN" classCode="OBS"> <templateId root= "216.840.1.120351.10..4.2" /> <id nullFlavor="NA" /> < code codeSystem="local" code="NITRIU" displayName="UA NITRITE DIPSTICK" /> <statusCode code="completed" /> <effectiveTime value=" " /> <value unit="" xsi:type="PQ" value="NEGATIVE" /> < referenceRange> <observationRange> <text>NEGATIVE</text > </observationRange> </referenceRange> </observation > </component> <component> <observation moodCode="EVN" classCode="OBS"> <templateId root="216.840.1.945031.10..4.2" /> <id nullFlavor="NA" /> <code codeSystem="local" code="PROTEIU " displayName="UA PROTEIN DIPSTICK" /> <statusCode code="completed" /> <effectiveTime value="947389475120" /> <value unit="" xsi: type="PQ" value="NEGATIVE" /> <referenceRange> < observationRange> <text>NEGATIVE</text> </ observationRange> </referenceRange> </observation> </ component> <component> <observation moodCode="EVN" classCode="OBS"> <templateId root="16.840.1.168786.10.4.2" /> <id nullFlavor="NA" /> <code codeSystem="local" code="DGLUU" displayName= "UA GLUCOSE DIPSTICK" /> <statusCode code="completed" /> < effectiveTime value="" /> <value unit="" xsi:type="PQ" value="NEGATIVE" /> <referenceRange> <observationRange> <text>NEGATIVE</text> </observationRange> </ referenceRange> </observation> </component> <component> <observation moodCode="EVN" classCode="OBS"> <templateId root= "216.840.1.924033.10..4.2" /> <id nullFlavor="NA" /> < code codeSystem="local" code="KETONU" displayName="UA KETONE DIPSTICK" /> <statusCode code="completed" /> <effectiveTime value="981086020158 " /> <value unit="" xsi:type="PQ" value="NEGATIVE" /> < referenceRange> <observationRange> <text>NEGATIVE</text > </observationRange> </referenceRange> </observation > </component> <component> <observation moodCode="EVN" classCode="OBS"> <templateId root="216.840.1.527006...4.2" /> <id nullFlavor="NA" /> <code codeSystem="local" code="UROBILU " displayName="UA UROBILINOGEN DIPSTICK" /> <statusCode code="completed " /> <effectiveTime value="389339289120" /> <value unit="" xsi :type="PQ" value="NORMAL" /> <referenceRange> < observationRange> <text>NORMAL</text> </observationRange > </referenceRange> </observation> </component> < component> <observation moodCode="EVN" classCode="OBS"> < templateId root="16.840.1.544988.10..4.2" /> <id nullFlavor="NA " /> <code codeSystem="local" code="BILU" displayName="UA BILIRUBIN DIPSTICK" /> <statusCode code="completed" /> <effectiveTime value="127282544076" /> <value unit="" xsi:type="PQ" value="NEGATIVE" / > <referenceRange> <observationRange> <text> NEGATIVE</text> </observationRange> </referenceRange> </observation> </component> <component> <observation moodCode ="EVN" classCode="OBS"> <templateId root= "216.840.1.777544.10.4.2" /> <id nullFlavor="NA" /> < code codeSystem="local" code="ADAM" displayName="UA BLOOD DIPSTICK" /> < statusCode code="completed" /> <effectiveTime value="603036824578" /> <value unit="" xsi:type="PQ" value="TRACE" /> < interpretationCode codeSystem="local" code="*" /> <referenceRange> <observationRange> <text>NEGATIVE</text> </ observationRange> </referenceRange> </observation> </ component> <component> <observation moodCode="EVN" classCode="OBS"> <templateId root="16.840.1.615596.06.06.22.4.2" /> <id nullFlavor="NA" /> <code codeSystem="local" code="SPGRU" displayName= "UA SPECIFIC GRAVITY" /> <statusCode code="completed" /> < effectiveTime value="232337475293" /> <value unit="" xsi:type="PQ" value="1.025" /> <referenceRange> <observationRange> <text>1.015-1.025</text> </observationRange> </ referenceRange> </observation> </component> <component> <observation moodCode="EVN" classCode="OBS"> <templateId root= "16.840.1.738020.06.06.22.4.2" /> <id nullFlavor="NA" /> < code codeSystem="local" code="INGRID" displayName="UR PH" /> <statusCode code="completed" /> <effectiveTime value="138044878230" /> < value unit="" xsi:type="PQ" value="6.0" /> <referenceRange> <observationRange> <text>5.0-7.0</text> </ observationRange> </referenceRange> </observation> </ component> </organizer> </entry> <entry> <organizer moodCode="EVN" classCode="BATTERY"> <templateId root="16.840.1.750603.10..22.4.1" /> <id nullFlavor="NA" /> <code codeSystem="local" code="UAMICRO" displayName="UA MICROSCOPIC" /> <statusCode code="completed" /> < component> <observation moodCode="EVN" classCode="OBS"> < templateId root="16.840.1.447896...4.2" /> <id nullFlavor="NA " /> <code codeSystem="local" code="MUCUSU" displayName="UA MUCUS" /> <statusCode code="completed" /> <effectiveTime value= "058779361756" /> <value unit="" xsi:type="PQ" value="1+" /> < referenceRange> <observationRange> <text>NEG TO 1+</text > </observationRange> </referenceRange> </observation > </component> <component> <observation moodCode="EVN" classCode="OBS"> <templateId root="10.03.840.1.749936.10..22.4.2" /> <id nullFlavor="NA" /> <code codeSystem="local" code="RBCU" displayName="UA RBC" /> <statusCode code="completed" /> < effectiveTime value="446879002685" /> <value unit="rbc/hpf" xsi:type= "PQ" value="0-3" /> <referenceRange> <observationRange> <text>0 - 3</text> </observationRange> </ referenceRange> </observation> </component> <component> <observation moodCode="EVN" classCode="OBS"> <templateId root= "216.840.1.722188.10..22.4.2" /> <id nullFlavor="NA" /> < code codeSystem="local" code="UAVOL" displayName="UA VOLUME FOR EXAM" /> <statusCode code="completed" /> <effectiveTime value="816396201028" /> <value unit="mL" xsi:type="PQ" value="12.0" /> < referenceRange> <observationRange> <text>(12mL STD)</ text> </observationRange> </referenceRange> </ observation> </component> <component> <observation moodCode= "EVN" classCode="OBS"> <templateId root="10.03.840.1.483619.10..4.2 " /> <id nullFlavor="NA" /> <code codeSystem="local" code= "WBCU" displayName="UA WBC" /> <statusCode code="completed" /> <effectiveTime value="847210790059" /> <value unit="wbc/hpf" xsi:type ="PQ" value="2-5" /> <referenceRange> <observationRange> <text>0 - 5</text> </observationRange> </ referenceRange> </observation> </component> </organizer> </entry > <entry> <organizer moodCode="EVN" classCode="BATTERY"> <templateId root="16.840.1.777195.10..22.4.1" /> <id nullFlavor="NA" /> <code codeSystem="local" code="CHL" displayName="CHLAMYDIA DNA BY PCR" /> < statusCode code="completed" /> <component> <observation moodCode= "EVN" classCode="OBS"> <templateId root="2.840.1.550097.10..22.4.2 " /> <id nullFlavor="NA" /> <code codeSystem="local" code="MB " displayName="Microbiology" /> <statusCode code="completed" /> <effectiveTime value="109394217997" /> <value xsi:type="ST" value="< pre><b>CHLAMYDIA DNA BY PCR - GONORRHOEA DNA BY PCR</b> See BelowCHLAMYDIA DNA BY PCR(F) Cosme Date/Time: 04/27/2016 18:15 Irvin Date/Time: 04/29/2016 13:36SOURCE: URINESPEC DESC: [address] [id number] BelowGONORRHOEA DNA BY PCR(F) Cosme Date/Time: 04/27/2016 18:15 Irvin Date/ Time: 04/29/2016 13:36SOURCE: URINESPEC DESC: [address] [id number]</pre>" /> <referenceRange> <observationRange> <text /> </observationRange> </referenceRange> </observation> </component> </organizer > </entry> <entry> <organizer moodCode="EVN" classCode="BATTERY"> < templateId root="10.03.840.1.300116.10..22.4.1" /> <id nullFlavor="NA" /> <code codeSystem="local" code="PREGU" displayName="UR TEST" /> <statusCode code="completed" /> <component> <observation moodCode="EVN" classCode="OBS"> <templateId root= "216.840.1.642359.10..22.4.2" /> <id nullFlavor="NA" /> < code codeSystem="local" code="PREGU" displayName="UR TEST" /> <statusCode code="completed" /> <effectiveTime value="277720767204" / > <value unit="" xsi:type="PQ" value="NEGATIVE" /> < referenceRange> <observationRange> <text>NEGATIVE</text > </observationRange> </referenceRange> </observation > </component> </organizer> </entry> <entry> <organizer moodCode= "EVN" classCode="BATTERY"> <templateId root="2.16.840.1.432024.10.20.22.4.1 " /> <id nullFlavor="NA" /> <code codeSystem="local" code="GRAM" displayName="GRAM STAIN - CHLAMYDIA DNA BY PCR" /> <statusCode code= "completed" /> <component> <observation moodCode="EVN" classCode= "OBS"> <templateId root="2.16.840.1.183124.10.20.22.4.2" /> < id nullFlavor="NA" /> <code codeSystem="local" code="MB" displayName= "Microbiology" /> <statusCode code="completed" /> < effectiveTime value="490657240886" /> <value xsi:type="ST" value="<pre> <b>GRAM STAIN</b> See BelowGRAM STAIN(F) Cosme Date/Time: 2015 18:22 Irvin Date/Time: 04/27/2016 18:48SOURCE : VAGINALSPEC DESC: GRAM STAINMODERATE NEUTROPHILSRARE MIXED BACTERIAL FLORANO ORGANISMS SEEN RESEMBLING NEISSERIA GONORRHOEAESANFORD [facility]IL[facility]MARCK[address] [place] [address]</pre>" /> <referenceRange> < observationRange> <text /> </observationRange> </referenceRange> </observation> </component> </organizer> </ entry> <entry> <organizer moodCode="EVN" classCode="BATTERY"> < templateId root="10.03.840.1.224817...4.1" /> <id nullFlavor="NA" /> <code codeSystem="local" code="CBCD" displayName="CBC W/DIFF" /> < statusCode code="completed" /> <component> <observation moodCode= "EVN" classCode="OBS"> <templateId root="840.1.600776.06.06.224.2 " /> <id nullFlavor="NA" /> <code codeSystem="local" code="BA# " displayName="BASOPHIL #" /> <statusCode code="completed" /> <effectiveTime value="" /> <value unit="k/cumm" xsi:type= "PQ" value="0.1" /> <referenceRange> <observationRange> <text>0.0-0.2</text> </observationRange> </ referenceRange> </observation> </component> <component> <observation moodCode="EVN" classCode="OBS"> <templateId root= "10.03.840.1.920891.06.06.224.2" /> <id nullFlavor="NA" /> < code codeSystem="local" code="BA%" displayName="BASOPHIL %" /> <statusCode code="completed" /> <effectiveTime value="" /> <value unit="%" xsi:type="PQ" value="1" /> < referenceRange> <observationRange> <text>0-1</text> </observationRange> </referenceRange> </observation> </component> <component> <observation moodCode="EVN" classCode= "OBS"> <templateId root="10.03.840.1.630404.06.06.22.4.2" /> < id nullFlavor="NA" /> <code codeSystem="local" code="EO#" displayName= "EOSINOPHIL #" /> <statusCode code="completed" /> < effectiveTime value="" /> <value unit="k/cumm" xsi:type="PQ " value="0.2" /> <referenceRange> <observationRange> <text>0.1-0.5</text> </observationRange> </ referenceRange> </observation> </component> <component> <observation moodCode="EVN" classCode="OBS"> <templateId root= "2.16.840.1.022847.06.06.22.4.2" /> <id nullFlavor="NA" /> < code codeSystem="local" code="EO%" displayName="EOSINOPHIL %" /> <statusCode code="completed" /> <effectiveTime value="" /> <value unit="%" xsi:type="PQ" value="3" /> < referenceRange> <observationRange> <text>2-4</text> </observationRange> </referenceRange> </observation> </component> <component> <observation moodCode="EVN" classCode= "OBS"> <templateId root="2.16.840.1.485587.06.06.22.4.2" /> < id nullFlavor="NA" /> <code codeSystem="local" code="GR#" displayName= "GRANULOCYTE #" /> <statusCode code="completed" /> < effectiveTime value="" /> <value unit="k/cumm" xsi:type="PQ " value="2.9" /> <referenceRange> <observationRange> <text>2.0-9.0</text> </observationRange> </ referenceRange> </observation> </component> <component> <observation moodCode="EVN" classCode="OBS"> <templateId root= "216.840.1.450514.10.22.4.2" /> <id nullFlavor="NA" /> < code codeSystem="local" code="GR%" displayName="GRANULOCYTE %" /> <statusCode code="completed" /> <effectiveTime value=" " /> <value unit="%" xsi:type="PQ" value="52" /> < referenceRange> <observationRange> <text>50-75</text> </observationRange> </referenceRange> </observation> </component> <component> <observation moodCode="EVN" classCode= "OBS"> <templateId root="16.840.1.573097...4.2" /> < id nullFlavor="NA" /> <code codeSystem="local" code="LY#" displayName= "LYMPHOCYTE #" /> <statusCode code="completed" /> < effectiveTime value="" /> <value unit="k/cumm" xsi:type="PQ " value="1.7" /> <referenceRange> <observationRange> <text>1.0-4.0</text> </observationRange> </ referenceRange> </observation> </component> <component> <observation moodCode="EVN" classCode="OBS"> <templateId root= "16.840.1.653265.10.2022.4.2" /> <id nullFlavor="NA" /> < code codeSystem="local" code="LY%" displayName="LYMPHOCYTE %" /> <statusCode code="completed" /> <effectiveTime value="" /> <value unit="%" xsi:type="PQ" value="31" /> < interpretationCode codeSystem="local" code="*" /> <referenceRange> <observationRange> <text>20-30</text> </ observationRange> </referenceRange> </observation> </ component> <component> <observation moodCode="EVN" classCode="OBS"> <templateId root="216.840.1.534604.10..4.2" /> <id nullFlavor="NA" /> <code codeSystem="local" code="MCH" displayName= "MEAN CELL HGB" /> <statusCode code="completed" /> < effectiveTime value="" /> <value unit="pg" xsi:type="PQ" value="23.4" /> <interpretationCode codeSystem="local" code="*" /> <referenceRange> <observationRange> <text>27.0- 33.0</text> </observationRange> </referenceRange> </ observation> </component> <component> <observation moodCode= "EVN" classCode="OBS"> <templateId root="216.840.1.727932...4.2 " /> <id nullFlavor="NA" /> <code codeSystem="local" code= "MCHC" displayName="MEAN CELL HGB CONCENTRATION" /> <statusCode code= "completed" /> <effectiveTime value="" /> <value unit="g/dL" xsi:type="PQ" value="30.6" /> <interpretationCode codeSystem="local" code="*" /> <referenceRange> < observationRange> <text>32.0-37.0</text> </ observationRange> </referenceRange> </observation> </ component> <component> <observation moodCode="EVN" classCode="OBS"> <templateId root="216.840.1.720394.06.06.22.4.2" /> <id nullFlavor="NA" /> <code codeSystem="local" code="MCV" displayName= "MEAN CELL VOLUME" /> <statusCode code="completed" /> < effectiveTime value="" /> <value unit="fl" xsi:type="PQ" value="76.3" /> <interpretationCode codeSystem="local" code="*" /> <referenceRange> <observationRange> <text>80.0- 100.0</text> </observationRange> </referenceRange> </ observation> </component> <component> <observation moodCode= "EVN" classCode="OBS"> <templateId root="216.840.1.436120.06.06.22.4.2 " /> <id nullFlavor="NA" /> <code codeSystem="local" code="MO# " displayName="MONOCYTE #" /> <statusCode code="completed" /> <effectiveTime value="" /> <value unit="k/cumm" xsi:type= "PQ" value="0.7" /> <referenceRange> <observationRange> <text>0.1-1.0</text> </observationRange> </ referenceRange> </observation> </component> <component> <observation moodCode="EVN" classCode="OBS"> <templateId root= "16.840.1.704195.06.06.22.4.2" /> <id nullFlavor="NA" /> < code codeSystem="local" code="MO%" displayName="MONOCYTE %" /> <statusCode code="completed" /> <effectiveTime value="" /> <value unit="%" xsi:type="PQ" value="12" /> < interpretationCode codeSystem="local" code="*" /> <referenceRange> <observationRange> <text>4-6</text> </ observationRange> </referenceRange> </observation> </ component> <component> <observation moodCode="EVN" classCode="OBS"> <templateId root="16.840.1.077959.10.20.22.4.2" /> <id nullFlavor="NA" /> <code codeSystem="local" code="RBC" displayName=" RED BLOOD CELL" /> <statusCode code="completed" /> < effectiveTime value="" /> <value unit="m/cumm" xsi:type="PQ " value="3.89" /> <interpretationCode codeSystem="local" code="*" /> <referenceRange> <observationRange> <text>4.00- 6.00</text> </observationRange> </referenceRange> </ observation> </component> <component> <observation moodCode= "EVN" classCode="OBS"> <templateId root="10.03.840.1.785074.10..22.4.2 " /> <id nullFlavor="NA" /> <code codeSystem="local" code="RDW " displayName="RED CELL DISTRIBUTION WIDTH" /> <statusCode code= "completed" /> <effectiveTime value="" /> <value unit="%" xsi:type="PQ" value="15.7" /> <interpretationCode codeSystem="local" code="*" /> <referenceRange> < observationRange> <text>11.0-15.6</text> </ observationRange> </referenceRange> </observation> </ component> <component> <observation moodCode="EVN" classCode="OBS"> <templateId root="10.03.840.1.813889.10.20.22.4.2" /> <id nullFlavor="NA" /> <code codeSystem="local" code="WBC" displayName= "WHITE BLOOD CELL" /> <statusCode code="completed" /> < effectiveTime value="" /> <value unit="k/cumm" xsi:type="PQ " value="5.6" /> <referenceRange> <observationRange> <text>5.0-10.0</text> </observationRange> </ referenceRange> </observation> </component> <component> <observation moodCode="EVN" classCode="OBS"> <templateId root= "2.16.840.1.812592.10.20.22.4.2" /> <id nullFlavor="NA" /> < code codeSystem="local" code="HGBT" displayName="HEMOGLOBIN" /> < statusCode code="completed" /> <effectiveTime value="" /> <value unit="gm/dL" xsi:type="PQ" value="9.1" /> < interpretationCode codeSystem="local" code="*" /> <referenceRange> <observationRange> <text>12.0-16.0</text> </ observationRange> </referenceRange> </observation> </ component> <component> <observation moodCode="EVN" classCode="OBS"> <templateId root="216.840.1.882955.10.20.22.4.2" /> <id nullFlavor="NA" /> <code codeSystem="local" code="HCTT" displayName= "HEMATOCRIT" /> <statusCode code="completed" /> < effectiveTime value="" /> <value unit="%" xsi:type="PQ " value="29.7" /> <interpretationCode codeSystem="local" code="*" /> <referenceRange> <observationRange> <text>37.0- 47.0</text> </observationRange> </referenceRange> </ observation> </component> <component> <observation moodCode= "EVN" classCode="OBS"> <templateId root="216.840.1.401505.10..22.4.2 " /> <id nullFlavor="NA" /> <code codeSystem="local" code="PLT " displayName="PLATELET COUNT" /> <statusCode code="completed" /> <effectiveTime value="" /> <value unit="k/cumm" xsi: type="PQ" value="389" /> <referenceRange> <observationRange > <text>150-400</text> </observationRange> </ referenceRange> </observation> </component> </organizer> </entry > <entry> <organizer moodCode="EVN" classCode="BATTERY"> <templateId root="216.840.1.762825.10..22.4.1" /> <id nullFlavor="NA" /> <code codeSystem="local" code="iCHEM8" displayName="CHEM/HEM PROFILE-BEDSIDE" /> <statusCode code="completed" /> <component> <observation moodCode= "EVN" classCode="OBS"> <templateId root="216.840.1.968613.10..22.4.2 " /> <id nullFlavor="NA" /> <code codeSystem="local" code="K" displayName="POTASSIUM" /> <statusCode code="completed" /> < effectiveTime value="" /> <value unit="mmol/L" xsi:type="PQ " value="4.0" /> <referenceRange> <observationRange> <text>3.5-5.3</text> </observationRange> </ referenceRange> </observation> </component> <component> <observation moodCode="EVN" classCode="OBS"> <templateId root= "2.16.840.1.238071...4.2" /> <id nullFlavor="NA" /> < code codeSystem="local" code="CMETHOD" displayName="METHOD" /> < statusCode code="completed" /> <effectiveTime value="" /> <value unit="" xsi:type="PQ" value="Bedside" /> < referenceRange> <observationRange> <text /> < /observationRange> </referenceRange> </observation> </ component> <component> <observation moodCode="EVN" classCode="OBS"> <templateId root="216.840.1.549294.06.06.22.4.2" /> <id nullFlavor="NA" /> <code codeSystem="local" code="GAP" displayName= "ANION GAP" /> <statusCode code="completed" /> <effectiveTime value="" /> <value unit="mmol/L" xsi:type="PQ" value="15" / > <referenceRange> <observationRange> <text>10- 20</text> </observationRange> </referenceRange> </ observation> </component> <component> <observation moodCode= "EVN" classCode="OBS"> <templateId root="216.840.1.974476.06.06.22.4.2 " /> <id nullFlavor="NA" /> <code codeSystem="local" code= "HMETHOD" displayName="METHOD" /> <statusCode code="completed" /> <effectiveTime value="" /> <value unit="" xsi:type="PQ " value="Bedside" /> <referenceRange> <observationRange> <text /> </observationRange> </referenceRange> </observation> </component> <component> <observation moodCode="EVN" classCode="OBS"> <templateId root= "16.840.1.165179.10.20.22.4.2" /> <id nullFlavor="NA" /> < code codeSystem="local" code="GLU" displayName="GLUCOSE" /> < statusCode code="completed" /> <effectiveTime value="" /> <value unit="mg/dL" xsi:type="PQ" value="158" /> < interpretationCode codeSystem="local" code="*" /> <referenceRange> <observationRange> <text>70-99</text> </ observationRange> </referenceRange> </observation> </ component> <component> <observation moodCode="EVN" classCode="OBS"> <templateId root="16.840.1.007653.10..22.4.2" /> <id nullFlavor="NA" /> <code codeSystem="local" code="BUN" displayName= "BLOOD UREA NITROGEN" /> <statusCode code="completed" /> < effectiveTime value="" /> <value unit="mg/dL" xsi:type="PQ " value="27" /> <interpretationCode codeSystem="local" code="*" /> <referenceRange> <observationRange> <text>7-20</ text> </observationRange> </referenceRange> </ observation> </component> <component> <observation moodCode= "EVN" classCode="OBS"> <templateId root="16.840.1.922598.10..22.4.2 " /> <id nullFlavor="NA" /> <code codeSystem="local" code= "CREAT" displayName="CREATININE" /> <statusCode code="completed" /> <effectiveTime value="" /> <value unit="mg/dL" xsi: type="PQ" value="1.4" /> <interpretationCode codeSystem="local" code="* " /> <referenceRange> <observationRange> <text> 0.6-1.0</text> </observationRange> </referenceRange> </observation> </component> <component> <observation moodCode= "EVN" classCode="OBS"> <templateId root="216.840.1.776231...4.2 " /> <id nullFlavor="NA" /> <code codeSystem="local" code= "HGBT" displayName="HEMOGLOBIN" /> <statusCode code="completed" /> <effectiveTime value="" /> <value unit="gm/dL" xsi: type="PQ" value="10.2" /> <interpretationCode codeSystem="local" code= "*" /> <referenceRange> <observationRange> < text>12.0-16.0</text> </observationRange> </referenceRange> </observation> </component> <component> <observation moodCode="EVN" classCode="OBS"> <templateId root= "16.840.1.607469.22.4.2" /> <id nullFlavor="NA" /> < code codeSystem="local" code="HCTT" displayName="HEMATOCRIT" /> < statusCode code="completed" /> <effectiveTime value="" /> <value unit="%" xsi:type="PQ" value="30.0" /> < interpretationCode codeSystem="local" code="*" /> <referenceRange> <observationRange> <text>37.0-47.0</text> </ observationRange> </referenceRange> </observation> </ component> <component> <observation moodCode="EVN" classCode="OBS"> <templateId root="216.840.1.945849.06.06.22.4.2" /> <id nullFlavor="NA" /> <code codeSystem="local" code="NA" displayName= "SODIUM" /> <statusCode code="completed" /> <effectiveTime value="" /> <value unit="mmol/L" xsi:type="PQ" value="131" /> <interpretationCode codeSystem="local" code="*" /> < referenceRange> <observationRange> <text>135-148</text> </observationRange> </referenceRange> </observation > </component> <component> <observation moodCode="EVN" classCode="OBS"> <templateId root="2.16.840.1.016620....4.2" /> <id nullFlavor="NA" /> <code codeSystem="local" code="CL" displayName="CHLORIDE" /> <statusCode code="completed" /> < effectiveTime value="" /> <value unit="mmol/L" xsi:type="PQ " value="97" /> <interpretationCode codeSystem="local" code="*" /> <referenceRange> <observationRange> <text>98-110</ text> </observationRange> </referenceRange> </ observation> </component> <component> <observation moodCode= "EVN" classCode="OBS"> <templateId root="216.840.1.341748....4.2 " /> <id nullFlavor="NA" /> <code codeSystem="local" code="CO2 " displayName="CARBON DIOXIDE" /> <statusCode code="completed" /> <effectiveTime value="" /> <value unit="mmol/L" xsi: type="PQ" value="24" /> <referenceRange> <observationRange> <text>21-32</text> </observationRange> </ referenceRange> </observation> </component> <component> <observation moodCode="EVN" classCode="OBS"> <templateId root= "216.840.1.163566.10..22.4.2" /> <id nullFlavor="NA" /> < code codeSystem="local" code="CAION" displayName="CALCIUM IONIZED" /> < statusCode code="completed" /> <effectiveTime value="" /> <value unit="mg/dL" xsi:type="PQ" value="4.8" /> < referenceRange> <observationRange> <text>4.5-5.3</text> </observationRange> </referenceRange> </observation > </component> </organizer> </entry> <entry> <organizer moodCode= "EVN" classCode="BATTERY"> <templateId root="216.840.1.457008.10..22.4.1 " /> <id nullFlavor="NA" /> <code codeSystem="local" code="iTROPI" displayName="TROPONIN I BEDSIDE" /> <statusCode code="completed" /> < component> <observation moodCode="EVN" classCode="OBS"> < templateId root="216.840.1.226524.10..22.4.2" /> <id nullFlavor="NA " /> <code codeSystem="local" code="CMETHOD" displayName="METHOD" /> <statusCode code="completed" /> <effectiveTime value= "" /> <value unit="" xsi:type="PQ" value="Bedside" /> <referenceRange> <observationRange> <text /> </observationRange> </referenceRange> </observation> </component> <component> <observation moodCode="EVN" classCode="OBS "> <templateId root="10.03.840.1.052979.10..22.4.2" /> <id nullFlavor="NA" /> <code codeSystem="local" code="TROPI" displayName= "TROPONIN I" /> <statusCode code="completed" /> < effectiveTime value="" /> <value unit="ng/mL" xsi:type="PQ " value="< 0.04" /> <referenceRange> <observationRange> <text>< 0.11</text> </observationRange> </ referenceRange> </observation> </component> </organizer> </entry > <entry> <organizer moodCode="EVN" classCode="BATTERY"> <templateId root="2.16.840.1.137777.10..22.4.1" /> <id nullFlavor="NA" /> <code codeSystem="local" code="DIMER" displayName="D-DIMER QUANT" /> <statusCode code="completed" /> <component> <observation moodCode="EVN" classCode="OBS"> <templateId root="2.16.840.1.502685.10..22.4.2" /> <id nullFlavor="NA" /> <code codeSystem="local" code="DIMER" displayName="D-DIMER QUANT" /> <statusCode code="completed" /> <effectiveTime value="" /> <value unit="ng/mL" xsi:type= "PQ" value="664" /> <interpretationCode codeSystem="local" code="*" /> <referenceRange> <observationRange> <text>0- 229</text> </observationRange> </referenceRange> </ observation> </component> </organizer> </entry> <entry> <organizer moodCode="EVN" classCode="BATTERY"> <templateId root= "2.16.840.1.110920...22.4.1" /> <id nullFlavor="NA" /> <code codeSystem="local" code="iCHEM8" displayName="CHEM/HEM PROFILE-BEDSIDE" /> <statusCode code="completed" /> <component> <observation moodCode= "EVN" classCode="OBS"> <templateId root="10.03.840.1.707084.06.06.22.4.2 " /> <id nullFlavor="NA" /> <code codeSystem="local" code="K" displayName="POTASSIUM" /> <statusCode code="completed" /> < effectiveTime value="725163729950" /> <value unit="mmol/L" xsi:type="PQ " value="4.2" /> <referenceRange> <observationRange> <text>3.5-5.3</text> </observationRange> </ referenceRange> </observation> </component> <component> <observation moodCode="EVN" classCode="OBS"> <templateId root= "840.1.265673.06.06.22.4.2" /> <id nullFlavor="NA" /> < code codeSystem="local" code="CMETHOD" displayName="METHOD" /> < statusCode code="completed" /> <effectiveTime value="064296321827" /> <value unit="" xsi:type="PQ" value="Bedside" /> < referenceRange> <observationRange> <text /> < /observationRange> </referenceRange> </observation> </ component> <component> <observation moodCode="EVN" classCode="OBS"> <templateId root="10.03.840.1.726891.22.4.2" /> <id nullFlavor="NA" /> <code codeSystem="local" code="GAP" displayName= "ANION GAP" /> <statusCode code="completed" /> <effectiveTime value="" /> <value unit="mmol/L" xsi:type="PQ" value="15" / > <referenceRange> <observationRange> <text>10- 20</text> </observationRange> </referenceRange> </ observation> </component> <component> <observation moodCode= "EVN" classCode="OBS"> <templateId root="216.840.1.388555.10...4.2 " /> <id nullFlavor="NA" /> <code codeSystem="local" code= "HMETHOD" displayName="METHOD" /> <statusCode code="completed" /> <effectiveTime value="046316728026" /> <value unit="" xsi:type="PQ " value="Bedside" /> <referenceRange> <observationRange> <text /> </observationRange> </referenceRange> </observation> </component> <component> <observation moodCode="EVN" classCode="OBS"> <templateId root= "216.840.1.402531.10..4.2" /> <id nullFlavor="NA" /> < code codeSystem="local" code="GLU" displayName="GLUCOSE" /> < statusCode code="completed" /> <effectiveTime value="" /> <value unit="mg/dL" xsi:type="PQ" value="122" /> < interpretationCode codeSystem="local" code="*" /> <referenceRange> <observationRange> <text>70-99</text> </ observationRange> </referenceRange> </observation> </ component> <component> <observation moodCode="EVN" classCode="OBS"> <templateId root="216.840.1.041391.10.22.4.2" /> <id nullFlavor="NA" /> <code codeSystem="local" code="BUN" displayName= "BLOOD UREA NITROGEN" /> <statusCode code="completed" /> < effectiveTime value="460565211268" /> <value unit="mg/dL" xsi:type="PQ " value="15" /> <referenceRange> <observationRange> <text>7-20</text> </observationRange> </referenceRange > </observation> </component> <component> <observation moodCode="EVN" classCode="OBS"> <templateId root= "2.16.840.1.692480.10..22.4.2" /> <id nullFlavor="NA" /> < code codeSystem="local" code="CREAT" displayName="CREATININE" /> < statusCode code="completed" /> <effectiveTime value="425719351560" /> <value unit="mg/dL" xsi:type="PQ" value="0.9" /> < referenceRange> <observationRange> <text>0.6-1.0</text> </observationRange> </referenceRange> </observation > </component> <component> <observation moodCode="EVN" classCode="OBS"> <templateId root="2.16.840.1.855570.10..22.4.2" /> <id nullFlavor="NA" /> <code codeSystem="local" code="HGBT" displayName="HEMOGLOBIN" /> <statusCode code="completed" /> < effectiveTime value="821766404259" /> <value unit="gm/dL" xsi:type="PQ " value="9.2" /> <interpretationCode codeSystem="local" code="*" /> <referenceRange> <observationRange> <text>12.0- 16.0</text> </observationRange> </referenceRange> </ observation> </component> <component> <observation moodCode= "EVN" classCode="OBS"> <templateId root="2.16.840.1.020836.10.20.22.4.2 " /> <id nullFlavor="NA" /> <code codeSystem="local" code= "HCTT" displayName="HEMATOCRIT" /> <statusCode code="completed" /> <effectiveTime value="" /> <value unit="%" xsi: type="PQ" value="27.0" /> <interpretationCode codeSystem="local" code= "*" /> <referenceRange> <observationRange> < text>37.0-47.0</text> </observationRange> </referenceRange> </observation> </component> <component> <observation moodCode="EVN" classCode="OBS"> <templateId root= "216.840.1.766437...4.2" /> <id nullFlavor="NA" /> < code codeSystem="local" code="NA" displayName="SODIUM" /> <statusCode code="completed" /> <effectiveTime value="" /> < value unit="mmol/L" xsi:type="PQ" value="135" /> <referenceRange> <observationRange> <text>135-148</text> </ observationRange> </referenceRange> </observation> </ component> <component> <observation moodCode="EVN" classCode="OBS"> <templateId root="216.840.1.345368.10.20.22.4.2" /> <id nullFlavor="NA" /> <code codeSystem="local" code="CL" displayName= "CHLORIDE" /> <statusCode code="completed" /> <effectiveTime value="" /> <value unit="mmol/L" xsi:type="PQ" value="100" /> <referenceRange> <observationRange> <text>98 -110</text> </observationRange> </referenceRange> </ observation> </component> <component> <observation moodCode= "EVN" classCode="OBS"> <templateId root="16.840.1.482392.10...4.2 " /> <id nullFlavor="NA" /> <code codeSystem="local" code="CO2 " displayName="CARBON DIOXIDE" /> <statusCode code="completed" /> <effectiveTime value="559645267247" /> <value unit="mmol/L" xsi: type="PQ" value="24" /> <referenceRange> <observationRange> <text>21-32</text> </observationRange> </ referenceRange> </observation> </component> <component> <observation moodCode="EVN" classCode="OBS"> <templateId root= "10.03.840.1.016452...4.2" /> <id nullFlavor="NA" /> < code codeSystem="local" code="CAION" displayName="CALCIUM IONIZED" /> < statusCode code="completed" /> <effectiveTime value="024662067355" /> <value unit="mg/dL" xsi:type="PQ" value="4.8" /> < referenceRange> <observationRange> <text>4.5-5.3</text> </observationRange> </referenceRange> </observation > </component> </organizer> </entry> <entry> <organizer moodCode= "EVN" classCode="BATTERY"> <templateId root="10.03.840.1.625515.10..4.1 " /> <id nullFlavor="NA" /> <code codeSystem="local" code="iTROPI" displayName="TROPONIN I BEDSIDE" /> <statusCode code="completed" /> < component> <observation moodCode="EVN" classCode="OBS"> < templateId root="16.840.1.534726.06.06.22.4.2" /> <id nullFlavor="NA " /> <code codeSystem="local" code="CMETHOD" displayName="METHOD" /> <statusCode code="completed" /> <effectiveTime value= "508748007077" /> <value unit="" xsi:type="PQ" value="Bedside" /> <referenceRange> <observationRange> <text /> </observationRange> </referenceRange> </observation> </component> <component> <observation moodCode="EVN" classCode="OBS "> <templateId root="10.03.840.1.668171.06.06.22.4.2" /> <id nullFlavor="NA" /> <code codeSystem="local" code="TROPI" displayName= "TROPONIN I" /> <statusCode code="completed" /> < effectiveTime value="285310915241" /> <value unit="ng/mL" xsi:type="PQ " value="< 0.04" /> <referenceRange> <observationRange> <text>< 0.11</text> </observationRange> </ referenceRange> </observation> </component> </organizer> </entry > <entry> <organizer moodCode="EVN" classCode="BATTERY"> <templateId root="10.03.840.1.897446.06.06..4.1" /> <id nullFlavor="NA" /> <code codeSystem="local" code="UA" displayName="URINALYSIS, ROUTINE" /> < statusCode code="completed" /> <component> <observation moodCode= "EVN" classCode="OBS"> <templateId root="10.03.840.1.324951.06.06.22.4.2 " /> <id nullFlavor="NA" /> <code codeSystem="local" code= "LEUESU" displayName="UA LEUKOCYTE ESTERASE DIPSTICK" /> <statusCode code="completed" /> <effectiveTime value="781672159424" /> < value unit="" xsi:type="PQ" value="NEGATIVE" /> <referenceRange> <observationRange> <text>NEGATIVE</text> </ observationRange> </referenceRange> </observation> </ component> <component> <observation moodCode="EVN" classCode="OBS"> <templateId root="216.840.1.252371.06.06.22.4.2" /> <id nullFlavor="NA" /> <code codeSystem="local" code="NITRIU" displayName= "UA NITRITE DIPSTICK" /> <statusCode code="completed" /> < effectiveTime value="" /> <value unit="" xsi:type="PQ" value="NEGATIVE" /> <referenceRange> <observationRange> <text>NEGATIVE</text> </observationRange> </ referenceRange> </observation> </component> <component> <observation moodCode="EVN" classCode="OBS"> <templateId root= "216.840.1.947547.06.06.22.4.2" /> <id nullFlavor="NA" /> < code codeSystem="local" code="PROTEIU" displayName="UA PROTEIN DIPSTICK" /> <statusCode code="completed" /> <effectiveTime value= "" /> <value unit="" xsi:type="PQ" value="NEGATIVE" /> <referenceRange> <observationRange> <text>NEGATIVE </text> </observationRange> </referenceRange> </ observation> </component> <component> <observation moodCode= "EVN" classCode="OBS"> <templateId root="16.840.1.523529.10..22.4.2 " /> <id nullFlavor="NA" /> <code codeSystem="local" code= "DGLUU" displayName="UA GLUCOSE DIPSTICK" /> <statusCode code= "completed" /> <effectiveTime value="" /> <value unit="" xsi:type="PQ" value="NEGATIVE" /> <referenceRange> < observationRange> <text>NEGATIVE</text> </ observationRange> </referenceRange> </observation> </ component> <component> <observation moodCode="EVN" classCode="OBS"> <templateId root="10.03.840.1.284911.10..4.2" /> <id nullFlavor="NA" /> <code codeSystem="local" code="KETONU" displayName= "UA KETONE DIPSTICK" /> <statusCode code="completed" /> < effectiveTime value="" /> <value unit="" xsi:type="PQ" value="NEGATIVE" /> <referenceRange> <observationRange> <text>NEGATIVE</text> </observationRange> </ referenceRange> </observation> </component> <component> <observation moodCode="EVN" classCode="OBS"> <templateId root= "10.03.840.1.748240.10..4.2" /> <id nullFlavor="NA" /> < code codeSystem="local" code="UROBILU" displayName="UA UROBILINOGEN DIPSTICK" / > <statusCode code="completed" /> <effectiveTime value= "" /> <value unit="" xsi:type="PQ" value="NORMAL" /> <referenceRange> <observationRange> <text>NORMAL</ text> </observationRange> </referenceRange> </ observation> </component> <component> <observation moodCode= "EVN" classCode="OBS"> <templateId root="216.840.1.470813.06.06.22.4.2 " /> <id nullFlavor="NA" /> <code codeSystem="local" code= "BILU" displayName="UA BILIRUBIN DIPSTICK" /> <statusCode code= "completed" /> <effectiveTime value="" /> <value unit="" xsi:type="PQ" value="NEGATIVE" /> <referenceRange> < observationRange> <text>NEGATIVE</text> </ observationRange> </referenceRange> </observation> </ component> <component> <observation moodCode="EVN" classCode="OBS"> <templateId root="16.840.1.105648.06.06.22.4.2" /> <id nullFlavor="NA" /> <code codeSystem="local" code="ADAM" displayName="UA BLOOD DIPSTICK" /> <statusCode code="completed" /> < effectiveTime value="" /> <value unit="" xsi:type="PQ" value="NEGATIVE" /> <referenceRange> <observationRange> <text>NEGATIVE</text> </observationRange> </ referenceRange> </observation> </component> <component> <observation moodCode="EVN" classCode="OBS"> <templateId root= "16.840.1.751823.06.06.22.4.2" /> <id nullFlavor="NA" /> < code codeSystem="local" code="SPGRU" displayName="UA SPECIFIC GRAVITY" /> <statusCode code="completed" /> <effectiveTime value=" " /> <value unit="" xsi:type="PQ" value="1.010" /> < interpretationCode codeSystem="local" code="*" /> <referenceRange> <observationRange> <text>1.015-1.025</text> </ observationRange> </referenceRange> </observation> </ component> <component> <observation moodCode="EVN" classCode="OBS"> <templateId root="16.840.1.250312.10.4.2" /> <id nullFlavor="NA" /> <code codeSystem="local" code="INGRID" displayName="UR PH" /> <statusCode code="completed" /> <effectiveTime value= "087668868774" /> <value unit="" xsi:type="PQ" value="5.5" /> <referenceRange> <observationRange> <text>5.0-7.0</text > </observationRange> </referenceRange> </observation > </component> </organizer> </entry> <entry> <organizer moodCode= "EVN" classCode="BATTERY"> <templateId root="10.03.840.1.784834.06.06.22.4.1 " /> <id nullFlavor="NA" /> <code codeSystem="local" code="iCHEM8" displayName="CHEM/HEM PROFILE-BEDSIDE" /> <statusCode code="completed" /> <component> <observation moodCode="EVN" classCode="OBS"> < templateId root="16.840.1.976706.1022.4.2" /> <id nullFlavor="NA " /> <code codeSystem="local" code="K" displayName="POTASSIUM" /> <statusCode code="completed" /> <effectiveTime value="188279114669 " /> <value unit="mmol/L" xsi:type="PQ" value="3.5" /> < referenceRange> <observationRange> <text>3.5-5.3</text> </observationRange> </referenceRange> </observation > </component> <component> <observation moodCode="EVN" classCode="OBS"> <templateId root="16.840.1.472165.10.4.2" /> <id nullFlavor="NA" /> <code codeSystem="local" code="CMETHOD " displayName="METHOD" /> <statusCode code="completed" /> < effectiveTime value="127083404093" /> <value unit="" xsi:type="PQ" value="Bedside" /> <referenceRange> <observationRange> <text /> </observationRange> </referenceRange> </observation> </component> <component> <observation moodCode="EVN" classCode="OBS"> <templateId root= "10.03.840.1.682058.06.06.22.4.2" /> <id nullFlavor="NA" /> < code codeSystem="local" code="GAP" displayName="ANION GAP" /> < statusCode code="completed" /> <effectiveTime value="972195084089" /> <value unit="mmol/L" xsi:type="PQ" value="19" /> < referenceRange> <observationRange> <text>10-20</text> </observationRange> </referenceRange> </observation> </component> <component> <observation moodCode="EVN" classCode= "OBS"> <templateId root="10.03.840.1.043451.06.06.22.4.2" /> < id nullFlavor="NA" /> <code codeSystem="local" code="HMETHOD" displayName="METHOD" /> <statusCode code="completed" /> < effectiveTime value="823293968527" /> <value unit="" xsi:type="PQ" value="Bedside" /> <referenceRange> <observationRange> <text /> </observationRange> </referenceRange> </observation> </component> <component> <observation moodCode="EVN" classCode="OBS"> <templateId root= "10.03.840.1.136499.10.20.22.4.2" /> <id nullFlavor="NA" /> < code codeSystem="local" code="GLU" displayName="GLUCOSE" /> < statusCode code="completed" /> <effectiveTime value="808170956959" /> <value unit="mg/dL" xsi:type="PQ" value="173" /> < interpretationCode codeSystem="local" code="*" /> <referenceRange> <observationRange> <text>70-99</text> </ observationRange> </referenceRange> </observation> </ component> <component> <observation moodCode="EVN" classCode="OBS"> <templateId root="840.1.593202.10..4.2" /> <id nullFlavor="NA" /> <code codeSystem="local" code="BUN" displayName= "BLOOD UREA NITROGEN" /> <statusCode code="completed" /> < effectiveTime value="570336778684" /> <value unit="mg/dL" xsi:type="PQ " value="26" /> <interpretationCode codeSystem="local" code="*" /> <referenceRange> <observationRange> <text>7-20</ text> </observationRange> </referenceRange> </ observation> </component> <component> <observation moodCode= "EVN" classCode="OBS"> <templateId root="10.03.840.1.578368.10.20.22.4.2 " /> <id nullFlavor="NA" /> <code codeSystem="local" code= "CREAT" displayName="CREATININE" /> <statusCode code="completed" /> <effectiveTime value="254883290980" /> <value unit="mg/dL" xsi: type="PQ" value="1.0" /> <referenceRange> <observationRange > <text>0.6-1.0</text> </observationRange> </ referenceRange> </observation> </component> <component> <observation moodCode="EVN" classCode="OBS"> <templateId root= "216.840.1.624969.10.20.22.4.2" /> <id nullFlavor="NA" /> < code codeSystem="local" code="HGBT" displayName="HEMOGLOBIN" /> < statusCode code="completed" /> <effectiveTime value="323070363991" /> <value unit="gm/dL" xsi:type="PQ" value="11.9" /> < interpretationCode codeSystem="local" code="*" /> <referenceRange> <observationRange> <text>12.0-16.0</text> </ observationRange> </referenceRange> </observation> </ component> <component> <observation moodCode="EVN" classCode="OBS"> <templateId root="216.840.1.602553.10.20.22.4.2" /> <id nullFlavor="NA" /> <code codeSystem="local" code="HCTT" displayName= "HEMATOCRIT" /> <statusCode code="completed" /> < effectiveTime value="541856568263" /> <value unit="%" xsi:type="PQ " value="35.0" /> <interpretationCode codeSystem="local" code="*" /> <referenceRange> <observationRange> <text>37.0- 47.0</text> </observationRange> </referenceRange> </ observation> </component> <component> <observation moodCode= "EVN" classCode="OBS"> <templateId root="216.840.1.534836.10..22.4.2 " /> <id nullFlavor="NA" /> <code codeSystem="local" code="NA " displayName="SODIUM" /> <statusCode code="completed" /> < effectiveTime value="" /> <value unit="mmol/L" xsi:type="PQ " value="136" /> <referenceRange> <observationRange> <text>135-148</text> </observationRange> </ referenceRange> </observation> </component> <component> <observation moodCode="EVN" classCode="OBS"> <templateId root= "216.840.1.987391.10...4.2" /> <id nullFlavor="NA" /> < code codeSystem="local" code="CL" displayName="CHLORIDE" /> < statusCode code="completed" /> <effectiveTime value="" /> <value unit="mmol/L" xsi:type="PQ" value="103" /> < referenceRange> <observationRange> <text>98-110</text> </observationRange> </referenceRange> </observation> </component> <component> <observation moodCode="EVN" classCode ="OBS"> <templateId root="16.840.1.894550.10..22.4.2" /> < id nullFlavor="NA" /> <code codeSystem="local" code="CO2" displayName= "CARBON DIOXIDE" /> <statusCode code="completed" /> < effectiveTime value="274183475824" /> <value unit="mmol/L" xsi:type="PQ " value="19" /> <interpretationCode codeSystem="local" code="*" /> <referenceRange> <observationRange> <text>21-32</ text> </observationRange> </referenceRange> </ observation> </component> <component> <observation moodCode= "EVN" classCode="OBS"> <templateId root="16.840.1.779454.10..22.4.2 " /> <id nullFlavor="NA" /> <code codeSystem="local" code= "CAION" displayName="CALCIUM IONIZED" /> <statusCode code="completed" / > <effectiveTime value="592699771020" /> <value unit="mg/dL" xsi:type="PQ" value="4.7" /> <referenceRange> < observationRange> <text>4.5-5.3</text> </ observationRange> </referenceRange> </observation> </ component> </organizer> </entry> <entry> <organizer moodCode="EVN" classCode="BATTERY"> <templateId root="10.03.840.1.321895.10..22.4.1" /> <id nullFlavor="NA" /> <code codeSystem="local" code="iTROPI" displayName="TROPONIN I BEDSIDE" /> <statusCode code="completed" /> < component> <observation moodCode="EVN" classCode="OBS"> < templateId root="10.03.840.1.910039.10..22.4.2" /> <id nullFlavor="NA " /> <code codeSystem="local" code="CMETHOD" displayName="METHOD" /> <statusCode code="completed" /> <effectiveTime value= "645091551161" /> <value unit="" xsi:type="PQ" value="Bedside" /> <referenceRange> <observationRange> <text /> </observationRange> </referenceRange> </observation> </component> <component> <observation moodCode="EVN" classCode="OBS "> <templateId root="2.16.840.1.839171.10..22.4.2" /> <id nullFlavor="NA" /> <code codeSystem="local" code="TROPI" displayName= "TROPONIN I" /> <statusCode code="completed" /> < effectiveTime value="741102999771" /> <value unit="ng/mL" xsi:type="PQ " value="< 0.04" /> <referenceRange> <observationRange> <text>< 0.11</text> </observationRange> </ referenceRange> </observation> </component> </organizer> </entry > <entry> <organizer moodCode="EVN" classCode="BATTERY"> <templateId root="2.16.840.1.340667.10..22.4.1" /> <id nullFlavor="NA" /> <code codeSystem="local" code="LIVER" displayName="HEPATIC FUNCTION PANEL" /> < statusCode code="completed" /> <component> <observation moodCode= "EVN" classCode="OBS"> <templateId root="2.16.840.1.624764.10.20.22.4.2 " /> <id nullFlavor="NA" /> <code codeSystem="local" code= "BILUC" displayName="BILI UNCONJUGATED" /> <statusCode code="completed " /> <effectiveTime value="337309821580" /> <value unit="mg/dL " xsi:type="PQ" value="0.2" /> <referenceRange> < observationRange> <text>0.0-0.7</text> </ observationRange> </referenceRange> </observation> </ component> <component> <observation moodCode="EVN" classCode="OBS"> <templateId root="16.840.1.623547.10.22.4.2" /> <id nullFlavor="NA" /> <code codeSystem="local" code="AST" displayName="AST /SGOT" /> <statusCode code="completed" /> <effectiveTime value ="940623849350" /> <value unit="Units/L" xsi:type="PQ" value="13" /> <referenceRange> <observationRange> <text>10-37< /text> </observationRange> </referenceRange> </ observation> </component> <component> <observation moodCode= "EVN" classCode="OBS"> <templateId root="10.03.840.1.573857.06.06.22.4.2 " /> <id nullFlavor="NA" /> <code codeSystem="local" code="ALT " displayName="ALT/SGPT" /> <statusCode code="completed" /> < effectiveTime value="917560811984" /> <value unit="Units/L" xsi:type= "PQ" value="16" /> <referenceRange> <observationRange> <text>< 66</text> </observationRange> </ referenceRange> </observation> </component> <component> <observation moodCode="EVN" classCode="OBS"> <templateId root= "10.03.840.1.471571.102022.4.2" /> <id nullFlavor="NA" /> < code codeSystem="local" code="TP" displayName="TOTAL PROTEIN" /> < statusCode code="completed" /> <effectiveTime value="333519575631" /> <value unit="gm/dL" xsi:type="PQ" value="8.6" /> < interpretationCode codeSystem="local" code="*" /> <referenceRange> <observationRange> <text>6.4-8.2</text> </ observationRange> </referenceRange> </observation> </ component> <component> <observation moodCode="EVN" classCode="OBS"> <templateId root="10.03.840.1.123676.10.20.22.4.2" /> <id nullFlavor="NA" /> <code codeSystem="local" code="ALB" displayName= "ALBUMIN" /> <statusCode code="completed" /> <effectiveTime value="303260607427" /> <value unit="gm/dL" xsi:type="PQ" value="3.2" / > <interpretationCode codeSystem="local" code="*" /> < referenceRange> <observationRange> <text>3.4-5.0</text> </observationRange> </referenceRange> </observation > </component> <component> <observation moodCode="EVN" classCode="OBS"> <templateId root="840.1.850318.06.06.22.4.2" /> <id nullFlavor="NA" /> <code codeSystem="local" code="BILTOT" displayName="BILI TOTAL" /> <statusCode code="completed" /> < effectiveTime value="060711350087" /> <value unit="mg/dL" xsi:type="PQ " value="0.3" /> <referenceRange> <observationRange> <text>0.0-1.0</text> </observationRange> </ referenceRange> </observation> </component> <component> <observation moodCode="EVN" classCode="OBS"> <templateId root= "10.03.840.1.833520.10.2022.4.2" /> <id nullFlavor="NA" /> < code codeSystem="local" code="ALKP" displayName="ALKALINE PHOSPHATASE TOTAL" /> <statusCode code="completed" /> <effectiveTime value= "029579814837" /> <value unit="IU/L" xsi:type="PQ" value="114" /> <referenceRange> <observationRange> <text>45-117</ text> </observationRange> </referenceRange> </ observation> </component> <component> <observation moodCode= "EVN" classCode="OBS"> <templateId root="10.03.840.1.697473.22.4.2 " /> <id nullFlavor="NA" /> <code codeSystem="local" code= "BILC" displayName="BILI CONJUGATED" /> <statusCode code="completed" / > <effectiveTime value="711385030500" /> <value unit="mg/dL" xsi:type="PQ" value="< 0.1" /> <referenceRange> < observationRange> <text>0.0-0.3</text> </ observationRange> </referenceRange> </observation> </ component> </organizer> </entry> <entry> <organizer moodCode="EVN" classCode="BATTERY"> <templateId root="10.03.840.1.556090.06.06.22.4.1" /> <id nullFlavor="NA" /> <code codeSystem="local" code="LIP" displayName ="LIPASE" /> <statusCode code="completed" /> <component> < observation moodCode="EVN" classCode="OBS"> <templateId root= "10.03.840.1.898868.1022.4.2" /> <id nullFlavor="NA" /> < code codeSystem="local" code="LIP" displayName="LIPASE" /> <statusCode code="completed" /> <effectiveTime value="023192040516" /> < value unit="Units/L" xsi:type="PQ" value="69" /> <interpretationCode codeSystem="local" code="*" /> <referenceRange> < observationRange> <text>73-393</text> </observationRange > </referenceRange> </observation> </component> </ organizer> </entry> <entry> <organizer moodCode="EVN" classCode="BATTERY"> <templateId root="16.840.1.937306.10..22.4.1" /> <id nullFlavor= "NA" /> <code codeSystem="local" code="DIMER" displayName="D-DIMER QUANT" / > <statusCode code="completed" /> <component> <observation moodCode="EVN" classCode="OBS"> <templateId root= "16.840.1.217073.10..22.4.2" /> <id nullFlavor="NA" /> < code codeSystem="local" code="DIMER" displayName="D-DIMER QUANT" /> < statusCode code="completed" /> <effectiveTime value="180482246482" /> <value unit="ng/mL" xsi:type="PQ" value="456" /> < interpretationCode codeSystem="local" code="*" /> <referenceRange> <observationRange> <text>0-229</text> </ observationRange> </referenceRange> </observation> </ component> </organizer> </entry> <entry> <organizer moodCode="EVN" classCode="BATTERY"> <templateId root="16.840.1.196942.10..22.4.1" /> <id nullFlavor="NA" /> <code codeSystem="local" code="CBCD" displayName="CBC W/DIFF" /> <statusCode code="completed" /> <component > <observation moodCode="EVN" classCode="OBS"> <templateId root= "10.03.840.1.068714.10.2022.4.2" /> <id nullFlavor="NA" /> < code codeSystem="local" code="GR#" displayName="GRANULOCYTE #" /> < statusCode code="completed" /> <effectiveTime value="" /> <value unit="k/cumm" xsi:type="PQ" value="10.3" /> < interpretationCode codeSystem="local" code="*" /> <referenceRange> <observationRange> <text>2.0-9.0</text> </ observationRange> </referenceRange> </observation> </ component> <component> <observation moodCode="EVN" classCode="OBS"> <templateId root="10.03.840.1.043056.10.4.2" /> <id nullFlavor="NA" /> <code codeSystem="local" code="GR%" displayName= "GRANULOCYTE %" /> <statusCode code="completed" /> < effectiveTime value="" /> <value unit="%" xsi:type="PQ " value="86" /> <interpretationCode codeSystem="local" code="*" /> <referenceRange> <observationRange> <text>50-75</ text> </observationRange> </referenceRange> </ observation> </component> <component> <observation moodCode= "EVN" classCode="OBS"> <templateId root="10.03.840.1.471211.10.2022.4.2 " /> <id nullFlavor="NA" /> <code codeSystem="local" code="LY# " displayName="LYMPHOCYTE #" /> <statusCode code="completed" /> <effectiveTime value="" /> <value unit="k/cumm" xsi:type ="PQ" value="0.7" /> <interpretationCode codeSystem="local" code="*" / > <referenceRange> <observationRange> <text>1.0 -4.0</text> </observationRange> </referenceRange> </ observation> </component> <component> <observation moodCode= "EVN" classCode="OBS"> <templateId root="840.1.572756.10.4.2 " /> <id nullFlavor="NA" /> <code codeSystem="local" code="LY& #37;" displayName="LYMPHOCYTE %" /> <statusCode code="completed" / > <effectiveTime value="326032126193" /> <value unit="%" xsi:type="PQ" value="6" /> <interpretationCode codeSystem="local" code= "*" /> <referenceRange> <observationRange> < text>20-30</text> </observationRange> </referenceRange> </observation> </component> <component> <observation moodCode="EVN" classCode="OBS"> <templateId root= "10.03.840.1.643139.06.06.22.4.2" /> <id nullFlavor="NA" /> < code codeSystem="local" code="MCH" displayName="MEAN CELL HGB" /> < statusCode code="completed" /> <effectiveTime value="423685797486" /> <value unit="pg" xsi:type="PQ" value="21.8" /> < interpretationCode codeSystem="local" code="*" /> <referenceRange> <observationRange> <text>27.0-33.0</text> </ observationRange> </referenceRange> </observation> </ component> <component> <observation moodCode="EVN" classCode="OBS"> <templateId root="10.03.830.1.311624.10.20.22.4.2" /> <id nullFlavor="NA" /> <code codeSystem="local" code="MCHC" displayName= "MEAN CELL HGB CONCENTRATION" /> <statusCode code="completed" /> <effectiveTime value="800269223521" /> <value unit="g/dL" xsi:type= "PQ" value="31.6" /> <interpretationCode codeSystem="local" code="*" / > <referenceRange> <observationRange> <text> 32.0-37.0</text> </observationRange> </referenceRange> </observation> </component> <component> <observation moodCode="EVN" classCode="OBS"> <templateId root= "840.1.116418.10.22.4.2" /> <id nullFlavor="NA" /> < code codeSystem="local" code="MCV" displayName="MEAN CELL VOLUME" /> < statusCode code="completed" /> <effectiveTime value="" /> <value unit="fl" xsi:type="PQ" value="68.9" /> < interpretationCode codeSystem="local" code="*" /> <referenceRange> <observationRange> <text>80.0-100.0</text> </ observationRange> </referenceRange> </observation> </ component> <component> <observation moodCode="EVN" classCode="OBS"> <templateId root="840.1.303985.10.2022.4.2" /> <id nullFlavor="NA" /> <code codeSystem="local" code="MO#" displayName= "MONOCYTE #" /> <statusCode code="completed" /> < effectiveTime value="836255508545" /> <value unit="k/cumm" xsi:type="PQ " value="0.9" /> <referenceRange> <observationRange> <text>0.1-1.0</text> </observationRange> </ referenceRange> </observation> </component> <component> <observation moodCode="EVN" classCode="OBS"> <templateId root= "216.840.1.597484.10.20.22.4.2" /> <id nullFlavor="NA" /> < code codeSystem="local" code="MO%" displayName="MONOCYTE %" /> <statusCode code="completed" /> <effectiveTime value="798585974716" /> <value unit="%" xsi:type="PQ" value="8" /> < interpretationCode codeSystem="local" code="*" /> <referenceRange> <observationRange> <text>4-6</text> </ observationRange> </referenceRange> </observation> </ component> <component> <observation moodCode="EVN" classCode="OBS"> <templateId root="10.03.840.1.350913.06.06.22.4.2" /> <id nullFlavor="NA" /> <code codeSystem="local" code="RBC" displayName=" RED BLOOD CELL" /> <statusCode code="completed" /> < effectiveTime value="519571462962" /> <value unit="m/cumm" xsi:type="PQ " value="4.54" /> <referenceRange> <observationRange> <text>4.00-6.00</text> </observationRange> </ referenceRange> </observation> </component> <component> <observation moodCode="EVN" classCode="OBS"> <templateId root= "16.840.1.646133.10.20.22.4.2" /> <id nullFlavor="NA" /> < code codeSystem="local" code="RDW" displayName="RED CELL DISTRIBUTION WIDTH" /> <statusCode code="completed" /> <effectiveTime value= "" /> <value unit="%" xsi:type="PQ" value="21.1" /> <interpretationCode codeSystem="local" code="*" /> < referenceRange> <observationRange> <text>11.0-15.6</text > </observationRange> </referenceRange> </observation > </component> <component> <observation moodCode="EVN" classCode="OBS"> <templateId root="2.16.840.1.006044.10..4.2" /> <id nullFlavor="NA" /> <code codeSystem="local" code="WBC" displayName="WHITE BLOOD CELL" /> <statusCode code="completed" /> <effectiveTime value="" /> <value unit="k/cumm" xsi: type="PQ" value="12.0" /> <interpretationCode codeSystem="local" code= "*" /> <referenceRange> <observationRange> < text>5.0-10.0</text> </observationRange> </referenceRange> </observation> </component> <component> <observation moodCode="EVN" classCode="OBS"> <templateId root= "216.840.1.425489.10.2022.4.2" /> <id nullFlavor="NA" /> < code codeSystem="local" code="HGBT" displayName="HEMOGLOBIN" /> < statusCode code="completed" /> <effectiveTime value="" /> <value unit="gm/dL" xsi:type="PQ" value="9.9" /> < interpretationCode codeSystem="local" code="*" /> <referenceRange> <observationRange> <text>12.0-16.0</text> </ observationRange> </referenceRange> </observation> </ component> <component> <observation moodCode="EVN" classCode="OBS"> <templateId root="16.840.1.749872.10.20.22.4.2" /> <id nullFlavor="NA" /> <code codeSystem="local" code="HCTT" displayName= "HEMATOCRIT" /> <statusCode code="completed" /> < effectiveTime value="000567092689" /> <value unit="%" xsi:type="PQ " value="31.3" /> <interpretationCode codeSystem="local" code="*" /> <referenceRange> <observationRange> <text>37.0- 47.0</text> </observationRange> </referenceRange> </ observation> </component> <component> <observation moodCode= "EVN" classCode="OBS"> <templateId root="10.03.840.1.764121.10..4.2 " /> <id nullFlavor="NA" /> <code codeSystem="local" code="PLT " displayName="PLATELET COUNT" /> <statusCode code="completed" /> <effectiveTime value="217749243703" /> <value unit="k/cumm" xsi: type="PQ" value="331" /> <referenceRange> <observationRange > <text>150-400</text> </observationRange> </ referenceRange> </observation> </component> </organizer> </entry > <entry> <organizer moodCode="EVN" classCode="BATTERY"> <templateId root="10.03.840.1.450143.10.20.22.4.1" /> <id nullFlavor="NA" /> <code codeSystem="local" code="MORPH" displayName="MORPHOLOGY" /> <statusCode code="completed" /> <component> <observation moodCode="EVN" classCode="OBS"> <templateId root="10.03.840.1.863650.10..22.4.2" /> <id nullFlavor="NA" /> <code codeSystem="local" code="RMORPH" displayName="RBC MORPH" /> <statusCode code="completed" /> < effectiveTime value="379475605974" /> <value unit="" xsi:type="PQ" value="NOTED" /> <referenceRange> <observationRange> <text /> </observationRange> </referenceRange> </observation> </component> </organizer> </entry> <entry> < organizer moodCode="EVN" classCode="BATTERY"> <templateId root= "10.03.840.1.846223.10..22.4.1" /> <id nullFlavor="NA" /> <code codeSystem="local" code="LACT" displayName="LACTIC ACID" /> <statusCode code="completed" /> <component> <observation moodCode="EVN" classCode="OBS"> <templateId root="10.03.840.1.598841.10..22.4.2" /> <id nullFlavor="NA" /> <code codeSystem="local" code="LACT" displayName="LACTIC ACID" /> <statusCode code="completed" /> < effectiveTime value="803347932778" /> <value unit="mmol/L" xsi:type="PQ " value="1.0" /> <referenceRange> <observationRange> <text>0.5-2.0</text> </observationRange> </ referenceRange> </observation> </component> </organizer> </entry > <entry> <organizer moodCode="EVN" classCode="BATTERY"> <templateId root="10.03.830.1.793581.10..22.4.1" /> <id nullFlavor="NA" /> <code codeSystem="local" code="BC" displayName="BLOOD CULTURE" /> <statusCode code="completed" /> <component> <observation moodCode="EVN" classCode="OBS"> <templateId root="10.03.840.1.930111.06.06.22.4.2" /> <id nullFlavor="NA" /> <code codeSystem="local" code="MB" displayName="Microbiology" /> <statusCode code="completed" /> <effectiveTime value="388029355300" /> <value xsi:type="ST" value="<pre ><b>BLOOD CULTURE</b> See BelowIs this a Possible Sepsis/Sepsis patient? YesBLOOD CULTURE(F) Cosme Date/Time: 11/26/2016 06:40 Irvin Date/Time: 12/01/2016 17:00SOURCE: BLOODSPEC DESC: [id number] [facility] [place] [address]</pre>" /> <referenceRange> <observationRange> <text /> </observationRange> </referenceRange> </observation> </component> </organizer> </entry> <entry> < organizer moodCode="EVN" classCode="BATTERY"> <templateId root= "10.03.840.1.715702.10..4.1" /> <id nullFlavor="NA" /> <code codeSystem="local" code="UA" displayName="URINALYSIS, ROUTINE" /> < statusCode code="completed" /> <component> <observation moodCode= "EVN" classCode="OBS"> <templateId root="10.03.840.1.707140.10..22.4.2 " /> <id nullFlavor="NA" /> <code codeSystem="local" code= "LEUESU" displayName="UA LEUKOCYTE ESTERASE DIPSTICK" /> <statusCode code="completed" /> <effectiveTime value="" /> < value unit="" xsi:type="PQ" value="NEGATIVE" /> <referenceRange> <observationRange> <text>NEGATIVE</text> </ observationRange> </referenceRange> </observation> </ component> <component> <observation moodCode="EVN" classCode="OBS"> <templateId root="10.03.840.1.771460.10.22.4.2" /> <id nullFlavor="NA" /> <code codeSystem="local" code="NITRIU" displayName= "UA NITRITE DIPSTICK" /> <statusCode code="completed" /> < effectiveTime value="" /> <value unit="" xsi:type="PQ" value="NEGATIVE" /> <referenceRange> <observationRange> <text>NEGATIVE</text> </observationRange> </ referenceRange> </observation> </component> <component> <observation moodCode="EVN" classCode="OBS"> <templateId root= "10.03.840.1.202996...4.2" /> <id nullFlavor="NA" /> < code codeSystem="local" code="PROTEIU" displayName="UA PROTEIN DIPSTICK" /> <statusCode code="completed" /> <effectiveTime value= "192271727787" /> <value unit="" xsi:type="PQ" value="1+" /> < referenceRange> <observationRange> <text>NEGATIVE</text > </observationRange> </referenceRange> </observation > </component> <component> <observation moodCode="EVN" classCode="OBS"> <templateId root="10.03.840.1.430386.06.06.22.4.2" /> <id nullFlavor="NA" /> <code codeSystem="local" code="DGLUU" displayName="UA GLUCOSE DIPSTICK" /> <statusCode code="completed" /> <effectiveTime value="" /> <value unit="" xsi:type= "PQ" value="NEGATIVE" /> <referenceRange> <observationRange > <text>NEGATIVE</text> </observationRange> </ referenceRange> </observation> </component> <component> <observation moodCode="EVN" classCode="OBS"> <templateId root= "216.840.1.650544.06.06.22.4.2" /> <id nullFlavor="NA" /> < code codeSystem="local" code="KETONU" displayName="UA KETONE DIPSTICK" /> <statusCode code="completed" /> <effectiveTime value=" " /> <value unit="" xsi:type="PQ" value="NEGATIVE" /> < referenceRange> <observationRange> <text>NEGATIVE</text > </observationRange> </referenceRange> </observation > </component> <component> <observation moodCode="EVN" classCode="OBS"> <templateId root="216.840.1.213303.06.06.22.4.2" /> <id nullFlavor="NA" /> <code codeSystem="local" code="UROBILU " displayName="UA UROBILINOGEN DIPSTICK" /> <statusCode code="completed " /> <effectiveTime value="" /> <value unit="" xsi :type="PQ" value="NORMAL" /> <referenceRange> < observationRange> <text>NORMAL</text> </observationRange > </referenceRange> </observation> </component> < component> <observation moodCode="EVN" classCode="OBS"> < templateId root="216.840.1.958207.10..22.4.2" /> <id nullFlavor="NA " /> <code codeSystem="local" code="BILU" displayName="UA BILIRUBIN DIPSTICK" /> <statusCode code="completed" /> <effectiveTime value="" /> <value unit="" xsi:type="PQ" value="NEGATIVE" / > <referenceRange> <observationRange> <text> NEGATIVE</text> </observationRange> </referenceRange> </observation> </component> <component> <observation moodCode ="EVN" classCode="OBS"> <templateId root= "216.840.1.010791.10..22.4.2" /> <id nullFlavor="NA" /> < code codeSystem="local" code="ADAM" displayName="UA BLOOD DIPSTICK" /> < statusCode code="completed" /> <effectiveTime value="" /> <value unit="" xsi:type="PQ" value="NEGATIVE" /> < referenceRange> <observationRange> <text>NEGATIVE</text > </observationRange> </referenceRange> </observation > </component> <component> <observation moodCode="EVN" classCode="OBS"> <templateId root="216.840.1.976624.10..22.4.2" /> <id nullFlavor="NA" /> <code codeSystem="local" code="SPGRU" displayName="UA SPECIFIC GRAVITY" /> <statusCode code="completed" /> <effectiveTime value="" /> <value unit="" xsi:type= "PQ" value="1.015" /> <referenceRange> <observationRange> <text>1.015-1.025</text> </observationRange> </ referenceRange> </observation> </component> <component> <observation moodCode="EVN" classCode="OBS"> <templateId root= "16.840.1.243145.06.06.22.4.2" /> <id nullFlavor="NA" /> < code codeSystem="local" code="INGRID" displayName="UR PH" /> <statusCode code="completed" /> <effectiveTime value="860741803697" /> < value unit="" xsi:type="PQ" value="5.5" /> <referenceRange> <observationRange> <text>5.0-7.0</text> </ observationRange> </referenceRange> </observation> </ component> </organizer> </entry> <entry> <organizer moodCode="EVN" classCode="BATTERY"> <templateId root="16.840.1.131741.06.06.22.4.1" /> <id nullFlavor="NA" /> <code codeSystem="local" code="UAMICRO" displayName="UA MICROSCOPIC" /> <statusCode code="completed" /> < component> <observation moodCode="EVN" classCode="OBS"> < templateId root="216.840.1.589331.10..22.4.2" /> <id nullFlavor="NA " /> <code codeSystem="local" code="BACU" displayName="UA BACTERIA" /> <statusCode code="completed" /> <effectiveTime value= "990760852014" /> <value unit="" xsi:type="PQ" value="2+" /> < referenceRange> <observationRange> <text>NEGATIVE</text > </observationRange> </referenceRange> </observation > </component> <component> <observation moodCode="EVN" classCode="OBS"> <templateId root="16.840.1.124367.06.06.22.4.2" /> <id nullFlavor="NA" /> <code codeSystem="local" code="EPIU" displayName="UA EPITHELIAL CELLS" /> <statusCode code="completed" /> <effectiveTime value="" /> <value unit="epi/hpf" xsi:type="PQ" value="3+" /> <referenceRange> < observationRange> <text>0 - 1+</text> </observationRange > </referenceRange> </observation> </component> < component> <observation moodCode="EVN" classCode="OBS"> < templateId root="216.840.1.393091.06.06.22.4.2" /> <id nullFlavor="NA " /> <code codeSystem="local" code="HYALU" displayName="UA HYALINE CAST " /> <statusCode code="completed" /> <effectiveTime value= "" /> <value unit="cast/lpf" xsi:type="PQ" value="5-10" /> <referenceRange> <observationRange> <text>0 - 1</text> </observationRange> </referenceRange> </ observation> </component> <component> <observation moodCode= "EVN" classCode="OBS"> <templateId root="216.840.1.628392.06.06.22.4.2 " /> <id nullFlavor="NA" /> <code codeSystem="local" code= "RBCU" displayName="UA RBC" /> <statusCode code="completed" /> <effectiveTime value="" /> <value unit="rbc/hpf" xsi:type ="PQ" value="3-5" /> <referenceRange> <observationRange> <text>0 - 3</text> </observationRange> </ referenceRange> </observation> </component> <component> <observation moodCode="EVN" classCode="OBS"> <templateId root= "16.840.1.142733.10..4.2" /> <id nullFlavor="NA" /> < code codeSystem="local" code="UAVOL" displayName="UA VOLUME FOR EXAM" /> <statusCode code="completed" /> <effectiveTime value="794510691010" /> <value unit="mL" xsi:type="PQ" value="12.0" /> < referenceRange> <observationRange> <text>(12mL STD)</ text> </observationRange> </referenceRange> </ observation> </component> <component> <observation moodCode= "EVN" classCode="OBS"> <templateId root="10.03.840.1.600677.06.06.22.4.2 " /> <id nullFlavor="NA" /> <code codeSystem="local" code= "WBCU" displayName="UA WBC" /> <statusCode code="completed" /> <effectiveTime value="853632843892" /> <value unit="wbc/hpf" xsi:type ="PQ" value="2-5" /> <referenceRange> <observationRange> <text>0 - 5</text> </observationRange> </ referenceRange> </observation> </component> </organizer> </entry > <entry> <organizer moodCode="EVN" classCode="BATTERY"> <templateId root="10.03.840.1.780653.10...4.1" /> <id nullFlavor="NA" /> <code codeSystem="local" code="CBCD" displayName="CBC W/DIFF" /> <statusCode code ="completed" /> <component> <observation moodCode="EVN" classCode= "OBS"> <templateId root="10.03.840.1.946142.06.06.22.4.2" /> < id nullFlavor="NA" /> <code codeSystem="local" code="BA#" displayName= "BASOPHIL #" /> <statusCode code="completed" /> < effectiveTime value="034166810888" /> <value unit="k/cumm" xsi:type="PQ " value="0.0" /> <referenceRange> <observationRange> <text>0.0-0.2</text> </observationRange> </ referenceRange> </observation> </component> <component> <observation moodCode="EVN" classCode="OBS"> <templateId root= "216.840.1.973093.06.06.224.2" /> <id nullFlavor="NA" /> < code codeSystem="local" code="BA%" displayName="BASOPHIL %" /> <statusCode code="completed" /> <effectiveTime value="102110231452" /> <value unit="%" xsi:type="PQ" value="1" /> < referenceRange> <observationRange> <text>0-1</text> </observationRange> </referenceRange> </observation> </component> <component> <observation moodCode="EVN" classCode= "OBS"> <templateId root="16.840.1.449714.06.06.22.4.2" /> < id nullFlavor="NA" /> <code codeSystem="local" code="EO#" displayName= "EOSINOPHIL #" /> <statusCode code="completed" /> < effectiveTime value="361281101191" /> <value unit="k/cumm" xsi:type="PQ " value="0.1" /> <referenceRange> <observationRange> <text>0.1-0.5</text> </observationRange> </ referenceRange> </observation> </component> <component> <observation moodCode="EVN" classCode="OBS"> <templateId root= "16.840.1.646358.10.22.4.2" /> <id nullFlavor="NA" /> < code codeSystem="local" code="EO%" displayName="EOSINOPHIL %" /> <statusCode code="completed" /> <effectiveTime value="736467292475" /> <value unit="%" xsi:type="PQ" value="1" /> < interpretationCode codeSystem="local" code="*" /> <referenceRange> <observationRange> <text>2-4</text> </ observationRange> </referenceRange> </observation> </ component> <component> <observation moodCode="EVN" classCode="OBS"> <templateId root="10.03.840.1.300471.06.06.224.2" /> <id nullFlavor="NA" /> <code codeSystem="local" code="GR#" displayName= "GRANULOCYTE #" /> <statusCode code="completed" /> < effectiveTime value="437579339275" /> <value unit="k/cumm" xsi:type="PQ " value="4.7" /> <referenceRange> <observationRange> <text>2.0-9.0</text> </observationRange> </ referenceRange> </observation> </component> <component> <observation moodCode="EVN" classCode="OBS"> <templateId root= "16.840.1.746533.10.2022.4.2" /> <id nullFlavor="NA" /> < code codeSystem="local" code="GR%" displayName="GRANULOCYTE %" /> <statusCode code="completed" /> <effectiveTime value="085054610891 " /> <value unit="%" xsi:type="PQ" value="69" /> < referenceRange> <observationRange> <text>50-75</text> </observationRange> </referenceRange> </observation> </component> <component> <observation moodCode="EVN" classCode= "OBS"> <templateId root="216.840.1.013424.10.4.2" /> < id nullFlavor="NA" /> <code codeSystem="local" code="LY#" displayName= "LYMPHOCYTE #" /> <statusCode code="completed" /> < effectiveTime value="175990803489" /> <value unit="k/cumm" xsi:type="PQ " value="1.1" /> <referenceRange> <observationRange> <text>1.0-4.0</text> </observationRange> </ referenceRange> </observation> </component> <component> <observation moodCode="EVN" classCode="OBS"> <templateId root= "2.16.840.1.695685.104.2" /> <id nullFlavor="NA" /> < code codeSystem="local" code="LY%" displayName="LYMPHOCYTE %" /> <statusCode code="completed" /> <effectiveTime value="503287484868" /> <value unit="%" xsi:type="PQ" value="16" /> < interpretationCode codeSystem="local" code="*" /> <referenceRange> <observationRange> <text>20-30</text> </ observationRange> </referenceRange> </observation> </ component> <component> <observation moodCode="EVN" classCode="OBS"> <templateId root="2.16.840.1.305706.10.2022.4.2" /> <id nullFlavor="NA" /> <code codeSystem="local" code="MCH" displayName= "MEAN CELL HGB" /> <statusCode code="completed" /> < effectiveTime value="847614262935" /> <value unit="pg" xsi:type="PQ" value="23.6" /> <interpretationCode codeSystem="local" code="*" /> <referenceRange> <observationRange> <text>27.0- 33.0</text> </observationRange> </referenceRange> </ observation> </component> <component> <observation moodCode= "EVN" classCode="OBS"> <templateId root="840.1.085626.06.06.22.4.2 " /> <id nullFlavor="NA" /> <code codeSystem="local" code= "MCHC" displayName="MEAN CELL HGB CONCENTRATION" /> <statusCode code= "completed" /> <effectiveTime value="281932084100" /> <value unit="g/dL" xsi:type="PQ" value="30.8" /> <interpretationCode codeSystem="local" code="*" /> <referenceRange> < observationRange> <text>32.0-37.0</text> </ observationRange> </referenceRange> </observation> </ component> <component> <observation moodCode="EVN" classCode="OBS"> <templateId root="840.1.253615.10.2022.4.2" /> <id nullFlavor="NA" /> <code codeSystem="local" code="MCV" displayName= "MEAN CELL VOLUME" /> <statusCode code="completed" /> < effectiveTime value="" /> <value unit="fl" xsi:type="PQ" value="76.7" /> <interpretationCode codeSystem="local" code="*" /> <referenceRange> <observationRange> <text>80.0- 100.0</text> </observationRange> </referenceRange> </ observation> </component> <component> <observation moodCode= "EVN" classCode="OBS"> <templateId root="216.840.1.153633.10..22.4.2 " /> <id nullFlavor="NA" /> <code codeSystem="local" code="MO# " displayName="MONOCYTE #" /> <statusCode code="completed" /> <effectiveTime value="894064932901" /> <value unit="k/cumm" xsi:type= "PQ" value="0.9" /> <referenceRange> <observationRange> <text>0.1-1.0</text> </observationRange> </ referenceRange> </observation> </component> <component> <observation moodCode="EVN" classCode="OBS"> <templateId root= "16.840.1.993096.10..4.2" /> <id nullFlavor="NA" /> < code codeSystem="local" code="MO%" displayName="MONOCYTE %" /> <statusCode code="completed" /> <effectiveTime value="060871940924" /> <value unit="%" xsi:type="PQ" value="13" /> < interpretationCode codeSystem="local" code="*" /> <referenceRange> <observationRange> <text>4-6</text> </ observationRange> </referenceRange> </observation> </ component> <component> <observation moodCode="EVN" classCode="OBS"> <templateId root="216.840.1.614803....4.2" /> <id nullFlavor="NA" /> <code codeSystem="local" code="MPVT" displayName= "MEAN PLATELET VOLUME" /> <statusCode code="completed" /> < effectiveTime value="964706545133" /> <value unit="fl" xsi:type="PQ" value="8.8" /> <referenceRange> <observationRange> <text>8.5-10.9</text> </observationRange> </ referenceRange> </observation> </component> <component> <observation moodCode="EVN" classCode="OBS"> <templateId root= "2.16.840.1.535719.10..22.4.2" /> <id nullFlavor="NA" /> < code codeSystem="local" code="OVAL" displayName="OVALOCYTES" /> < statusCode code="completed" /> <effectiveTime value="018638841365" /> <value unit="" xsi:type="PQ" value="NOTED" /> <referenceRange > <observationRange> <text /> </ observationRange> </referenceRange> </observation> </ component> <component> <observation moodCode="EVN" classCode="OBS"> <templateId root="2.16.840.1.047548.10..22.4.2" /> <id nullFlavor="NA" /> <code codeSystem="local" code="RBC" displayName=" RED BLOOD CELL" /> <statusCode code="completed" /> < effectiveTime value="766182294941" /> <value unit="m/cumm" xsi:type="PQ " value="3.60" /> <interpretationCode codeSystem="local" code="*" /> <referenceRange> <observationRange> <text>4.00- 6.00</text> </observationRange> </referenceRange> </ observation> </component> <component> <observation moodCode= "EVN" classCode="OBS"> <templateId root="10.03.840.1.510804.10..22.4.2 " /> <id nullFlavor="NA" /> <code codeSystem="local" code="RDW " displayName="RED CELL DISTRIBUTION WIDTH" /> <statusCode code= "completed" /> <effectiveTime value="333019158080" /> <value unit="%" xsi:type="PQ" value="19.5" /> <interpretationCode codeSystem="local" code="*" /> <referenceRange> < observationRange> <text>11.0-15.6</text> </ observationRange> </referenceRange> </observation> </ component> <component> <observation moodCode="EVN" classCode="OBS"> <templateId root="840.1.109159.06.06.22.4.2" /> <id nullFlavor="NA" /> <code codeSystem="local" code="WBC" displayName= "WHITE BLOOD CELL" /> <statusCode code="completed" /> < effectiveTime value="651869598503" /> <value unit="k/cumm" xsi:type="PQ " value="6.9" /> <referenceRange> <observationRange> <text>5.0-10.0</text> </observationRange> </ referenceRange> </observation> </component> <component> <observation moodCode="EVN" classCode="OBS"> <templateId root= "10.03.840.1.281538.10..22.4.2" /> <id nullFlavor="NA" /> < code codeSystem="local" code="HGBT" displayName="HEMOGLOBIN" /> < statusCode code="completed" /> <effectiveTime value="804862515463" /> <value unit="gm/dL" xsi:type="PQ" value="8.5" /> < interpretationCode codeSystem="local" code="*" /> <referenceRange> <observationRange> <text>12.0-16.0</text> </ observationRange> </referenceRange> </observation> </ component> <component> <observation moodCode="EVN" classCode="OBS"> <templateId root="216.840.1.792194.06.06.22.4.2" /> <id nullFlavor="NA" /> <code codeSystem="local" code="HCTT" displayName= "HEMATOCRIT" /> <statusCode code="completed" /> < effectiveTime value="556919267533" /> <value unit="%" xsi:type="PQ " value="27.6" /> <interpretationCode codeSystem="local" code="*" /> <referenceRange> <observationRange> <text>37.0- 47.0</text> </observationRange> </referenceRange> </ observation> </component> <component> <observation moodCode= "EVN" classCode="OBS"> <templateId root="216.840.1.110899.06.06.22.4.2 " /> <id nullFlavor="NA" /> <code codeSystem="local" code= "PLTT" displayName="PLATELET COUNT" /> <statusCode code="completed" /> <effectiveTime value="133338437495" /> <value unit="k/cumm" xsi:type="PQ" value="331" /> <referenceRange> < observationRange> <text>150-400</text> </ observationRange> </referenceRange> </observation> </ component> </organizer> </entry> <entry> <organizer moodCode="EVN" classCode="BATTERY"> <templateId root="216.840.1.619041.06.06.22.4.1" /> <id nullFlavor="NA" /> <code codeSystem="local" code="METABC" displayName="METABOLIC PANEL, COMPREHN" /> <statusCode code="completed" /> <component> <observation moodCode="EVN" classCode="OBS"> < templateId root="840.1.229064.06.06.22.4.2" /> <id nullFlavor="NA " /> <code codeSystem="local" code="K" displayName="POTASSIUM" /> <statusCode code="completed" /> <effectiveTime value="966784065603 " /> <value unit="mmol/L" xsi:type="PQ" value="3.7" /> < referenceRange> <observationRange> <text>3.5-5.3</text> </observationRange> </referenceRange> </observation > </component> <component> <observation moodCode="EVN" classCode="OBS"> <templateId root="840.1.777300.06.06.22.4.2" /> <id nullFlavor="NA" /> <code codeSystem="local" code="eGFR" displayName="EST GFR (MDRD)" /> <statusCode code="completed" /> <effectiveTime value="751157589261" /> <value unit="mL/min" xsi:type ="PQ" value="> 60" /> <referenceRange> <observationRange > <text>> 59</text> </observationRange> </ referenceRange> </observation> </component> <component> <observation moodCode="EVN" classCode="OBS"> <templateId root= "10.03.840.1.630529.10..4.2" /> <id nullFlavor="NA" /> < code codeSystem="local" code="GAP" displayName="ANION GAP" /> < statusCode code="completed" /> <effectiveTime value="846790643332" /> <value unit="mmol/L" xsi:type="PQ" value="8" /> < referenceRange> <observationRange> <text>5-15</text> </observationRange> </referenceRange> </observation> </component> <component> <observation moodCode="EVN" classCode= "OBS"> <templateId root="216.840.1.915323.10.20.22.4.2" /> < id nullFlavor="NA" /> <code codeSystem="local" code="eCrCl" displayName ="EST CrCl (CG)" /> <statusCode code="completed" /> < effectiveTime value="231832133066" /> <value unit="mL/min" xsi:type="PQ " value="57" /> <interpretationCode codeSystem="local" code="*" /> <referenceRange> <observationRange> <text>> 59< /text> </observationRange> </referenceRange> </ observation> </component> <component> <observation moodCode= "EVN" classCode="OBS"> <templateId root="216.840.1.241700.10.20.22.4.2 " /> <id nullFlavor="NA" /> <code codeSystem="local" code="GLU " displayName="GLUCOSE" /> <statusCode code="completed" /> < effectiveTime value="850490175419" /> <value unit="mg/dL" xsi:type="PQ " value="114" /> <interpretationCode codeSystem="local" code="*" /> <referenceRange> <observationRange> <text>70-99</ text> </observationRange> </referenceRange> </ observation> </component> <component> <observation moodCode= "EVN" classCode="OBS"> <templateId root="216.840.1.526236.10..22.4.2 " /> <id nullFlavor="NA" /> <code codeSystem="local" code="CA " displayName="CALCIUM" /> <statusCode code="completed" /> < effectiveTime value="" /> <value unit="mg/dL" xsi:type="PQ " value="8.3" /> <interpretationCode codeSystem="local" code="*" /> <referenceRange> <observationRange> <text>8.5- 10.1</text> </observationRange> </referenceRange> </ observation> </component> <component> <observation moodCode= "EVN" classCode="OBS"> <templateId root="216.840.1.347799...4.2 " /> <id nullFlavor="NA" /> <code codeSystem="local" code="BUN " displayName="BLOOD UREA NITROGEN" /> <statusCode code="completed" /> <effectiveTime value="" /> <value unit="mg/dL" xsi:type="PQ" value="19" /> <referenceRange> < observationRange> <text>7-20</text> </observationRange> </referenceRange> </observation> </component> < component> <observation moodCode="EVN" classCode="OBS"> < templateId root="16.840.1.581053.10.20.22.4.2" /> <id nullFlavor="NA " /> <code codeSystem="local" code="CREAT" displayName="CREATININE" /> <statusCode code="completed" /> <effectiveTime value= "777834285754" /> <value unit="mg/dL" xsi:type="PQ" value="0.9" /> <referenceRange> <observationRange> <text>0.6-1.0< /text> </observationRange> </referenceRange> </ observation> </component> <component> <observation moodCode= "EVN" classCode="OBS"> <templateId root="216.840.1.199290.10..4.2 " /> <id nullFlavor="NA" /> <code codeSystem="local" code="NA " displayName="SODIUM" /> <statusCode code="completed" /> < effectiveTime value="417160773490" /> <value unit="mmol/L" xsi:type="PQ " value="135" /> <referenceRange> <observationRange> <text>135-148</text> </observationRange> </ referenceRange> </observation> </component> <component> <observation moodCode="EVN" classCode="OBS"> <templateId root= "10.03.840.1.823333.10..4.2" /> <id nullFlavor="NA" /> < code codeSystem="local" code="CL" displayName="CHLORIDE" /> < statusCode code="completed" /> <effectiveTime value="401480909806" /> <value unit="mmol/L" xsi:type="PQ" value="103" /> < referenceRange> <observationRange> <text>98-110</text> </observationRange> </referenceRange> </observation> </component> <component> <observation moodCode="EVN" classCode ="OBS"> <templateId root="10.03.840.1.044187...4.2" /> < id nullFlavor="NA" /> <code codeSystem="local" code="AST" displayName= "AST/SGOT" /> <statusCode code="completed" /> <effectiveTime value="315263046819" /> <value unit="Units/L" xsi:type="PQ" value="12" /> <referenceRange> <observationRange> <text>10 -37</text> </observationRange> </referenceRange> </ observation> </component> <component> <observation moodCode= "EVN" classCode="OBS"> <templateId root="16.840.1.495113.10...4.2 " /> <id nullFlavor="NA" /> <code codeSystem="local" code="ALT " displayName="ALT/SGPT" /> <statusCode code="completed" /> < effectiveTime value="087923932883" /> <value unit="Units/L" xsi:type= "PQ" value="16" /> <referenceRange> <observationRange> <text>< 66</text> </observationRange> </ referenceRange> </observation> </component> <component> <observation moodCode="EVN" classCode="OBS"> <templateId root= "10.03.840.1.407030.10..4.2" /> <id nullFlavor="NA" /> < code codeSystem="local" code="CO2" displayName="CARBON DIOXIDE" /> < statusCode code="completed" /> <effectiveTime value="230516395587" /> <value unit="mmol/L" xsi:type="PQ" value="24" /> < referenceRange> <observationRange> <text>21-32</text> </observationRange> </referenceRange> </observation> </component> <component> <observation moodCode="EVN" classCode= "OBS"> <templateId root="10.03.840.1.471180.10..22.4.2" /> < id nullFlavor="NA" /> <code codeSystem="local" code="TP" displayName= "TOTAL PROTEIN" /> <statusCode code="completed" /> < effectiveTime value="939287886834" /> <value unit="gm/dL" xsi:type="PQ " value="6.3" /> <interpretationCode codeSystem="local" code="*" /> <referenceRange> <observationRange> <text>6.4-8.2 </text> </observationRange> </referenceRange> </ observation> </component> <component> <observation moodCode= "EVN" classCode="OBS"> <templateId root="2.16.840.1.343508.10.20.22.4.2 " /> <id nullFlavor="NA" /> <code codeSystem="local" code="ALB " displayName="ALBUMIN" /> <statusCode code="completed" /> < effectiveTime value="015176462297" /> <value unit="gm/dL" xsi:type="PQ " value="2.7" /> <interpretationCode codeSystem="local" code="*" /> <referenceRange> <observationRange> <text>3.4-5.0 </text> </observationRange> </referenceRange> </ observation> </component> <component> <observation moodCode= "EVN" classCode="OBS"> <templateId root="216.840.1.547303.10.20.22.4.2 " /> <id nullFlavor="NA" /> <code codeSystem="local" code= "BILTOT" displayName="BILI TOTAL" /> <statusCode code="completed" /> <effectiveTime value="644810456757" /> <value unit="mg/dL" xsi: type="PQ" value="0.1" /> <referenceRange> <observationRange > <text>0.0-1.0</text> </observationRange> </ referenceRange> </observation> </component> <component> <observation moodCode="EVN" classCode="OBS"> <templateId root= "2.16.840.1.928888.10.20.22.4.2" /> <id nullFlavor="NA" /> < code codeSystem="local" code="ALKP" displayName="ALKALINE PHOSPHATASE TOTAL" /> <statusCode code="completed" /> <effectiveTime value= "647905635061" /> <value unit="IU/L" xsi:type="PQ" value="85" /> <referenceRange> <observationRange> <text>45-117</ text> </observationRange> </referenceRange> </ observation> </component> </organizer> </entry> <entry> <organizer moodCode="EVN" classCode="BATTERY"> <templateId root= "2.16.840.1.531720.10.20.22.4.1" /> <id nullFlavor="NA" /> <code codeSystem="local" code="TSH" displayName="THYROID STIM HORMONE (TSH)" /> < statusCode code="completed" /> <component> <observation moodCode= "EVN" classCode="OBS"> <templateId root="2.16.840.1.286253.10.20.22.4.2 " /> <id nullFlavor="NA" /> <code codeSystem="local" code="TSH " displayName="THYROID STIM HORMONE (TSH)" /> <statusCode code= "completed" /> <effectiveTime value="028605575960" /> <value unit="uIU/mL" xsi:type="PQ" value="1.18" /> <referenceRange> <observationRange> <text>0.34-4.82</text> </ observationRange> </referenceRange> </observation> </ component> </organizer> </entry> <entry> <organizer moodCode="EVN" classCode="BATTERY"> <templateId root="16.840.1.505501.10..4.1" /> <id nullFlavor="NA" /> <code codeSystem="local" code="ALC" displayName ="ALCOHOL (ETHANOL) SERUM" /> <statusCode code="completed" /> < component> <observation moodCode="EVN" classCode="OBS"> < templateId root="840.1.777874.06.06.22.4.2" /> <id nullFlavor="NA " /> <code codeSystem="local" code="ALC" displayName="ALCOHOL (ETHANOL ) SERUM" /> <statusCode code="completed" /> <effectiveTime value="518436734733" /> <value unit="mg/dL" xsi:type="PQ" value="< 10" /> <referenceRange> <observationRange> < text> < 10</text> </observationRange> </referenceRange> </observation> </component> </organizer> </entry> <entry> < organizer moodCode="EVN" classCode="BATTERY"> <templateId root= "10.03.840.1.617907.06.06.22.4.1" /> <id nullFlavor="NA" /> <code codeSystem="local" code="ACTMN" displayName="ACETAMINOPHEN (TYLENOL)" /> < statusCode code="completed" /> <component> <observation moodCode= "EVN" classCode="OBS"> <templateId root="10.03.840.1.683671.10.4.2 " /> <id nullFlavor="NA" /> <code codeSystem="local" code= "ACTMN" displayName="ACETAMINOPHEN (TYLENOL)" /> <statusCode code= "completed" /> <effectiveTime value="172701811647" /> <value unit="mcg/mL" xsi:type="PQ" value="< 2" /> <referenceRange> <observationRange> <text>10-30</text> </ observationRange> </referenceRange> </observation> </ component> </organizer> </entry> <entry> <organizer moodCode="EVN" classCode="BATTERY"> <templateId root="10.03.840.1.145897.10..4.1" /> <id nullFlavor="NA" /> <code codeSystem="local" code="SALI" displayName="SALICYLATE (ASPIRIN)" /> <statusCode code="completed" /> <component> <observation moodCode="EVN" classCode="OBS"> < templateId root="10.03.840.1.814721.06.06.22.4.2" /> <id nullFlavor="NA " /> <code codeSystem="local" code="SALINUM" displayName="SALICYLATE" / > <statusCode code="completed" /> <effectiveTime value= "899661802310" /> <value unit="mg/dL" xsi:type="PQ" value="< 2.8" / > <referenceRange> <observationRange> <text>2.8 -29.0</text> </observationRange> </referenceRange> </ observation> </component> </organizer> </entry> <entry> <organizer moodCode="EVN" classCode="BATTERY"> <templateId root= "10.03.840.1.222916.10.4.1" /> <id nullFlavor="NA" /> <code codeSystem="local" code="HDLPRO" displayName="LIPID PANEL" /> <statusCode code="completed" /> <component> <observation moodCode="EVN" classCode="OBS"> <templateId root="10.03.840.1.881672.06.06.22.4.2" /> <id nullFlavor="NA" /> <code codeSystem="local" code="CHOL/HDL " displayName="CHOLESTEROL/HDL RATIO" /> <statusCode code="completed" / > <effectiveTime value="817679096487" /> <value unit="" xsi: type="PQ" value="3.7" /> <referenceRange> <observationRange > <text> < 5.0</text> </observationRange> </ referenceRange> </observation> </component> <component> <observation moodCode="EVN" classCode="OBS"> <templateId root= "216.840.1.282751.06.06.22.4.2" /> <id nullFlavor="NA" /> < code codeSystem="local" code="LDLX" displayName="LDL CHOLESTEROL" /> < statusCode code="completed" /> <effectiveTime value="179605992910" /> <value unit="mg/dL" xsi:type="PQ" value="109" /> < interpretationCode codeSystem="local" code="*" /> <referenceRange> <observationRange> <text>< 100</text> </ observationRange> </referenceRange> </observation> </ component> <component> <observation moodCode="EVN" classCode="OBS"> <templateId root="216.840.1.793660.06.06.22.4.2" /> <id nullFlavor="NA" /> <code codeSystem="local" code="VLDL" displayName= "VLDL CHOLESTEROL" /> <statusCode code="completed" /> < effectiveTime value="109670260055" /> <value unit="mg/dL" xsi:type="PQ " value="19" /> <referenceRange> <observationRange> <text>< 30</text> </observationRange> </ referenceRange> </observation> </component> <component> <observation moodCode="EVN" classCode="OBS"> <templateId root= "216.840.1.313699.10...4.2" /> <id nullFlavor="NA" /> < code codeSystem="local" code="TRIG" displayName="TRIGLYCERIDES" /> < statusCode code="completed" /> <effectiveTime value="" /> <value unit="mg/dL" xsi:type="PQ" value="95" /> < referenceRange> <observationRange> <text>< 150</text > </observationRange> </referenceRange> </observation > </component> <component> <observation moodCode="EVN" classCode="OBS"> <templateId root="216.840.1.749682.10..4.2" /> <id nullFlavor="NA" /> <code codeSystem="local" code="CHOL" displayName="CHOLESTEROL" /> <statusCode code="completed" /> < effectiveTime value="" /> <value unit="mg/dL" xsi:type="PQ " value="175" /> <referenceRange> <observationRange> <text>< 200</text> </observationRange> </ referenceRange> </observation> </component> <component> <observation moodCode="EVN" classCode="OBS"> <templateId root= "216.840.1.975008.10..22.4.2" /> <id nullFlavor="NA" /> < code codeSystem="local" code="HDL" displayName="HDL CHOLESTEROL" /> < statusCode code="completed" /> <effectiveTime value="999919241160" /> <value unit="mg/dL" xsi:type="PQ" value="47" /> < referenceRange> <observationRange> <text>> 39</text> </observationRange> </referenceRange> </observation > </component> </organizer> </entry> <entry> <organizer moodCode= "EVN" classCode="BATTERY"> <templateId root="216.840.1.749145.10..22.4.1 " /> <id nullFlavor="NA" /> <code codeSystem="local" code="UA" displayName="URINALYSIS, ROUTINE" /> <statusCode code="completed" /> < component> <observation moodCode="EVN" classCode="OBS"> < templateId root="2.16.840.1.408806.10...4.2" /> <id nullFlavor="NA " /> <code codeSystem="local" code="LEUESU" displayName="UA LEUKOCYTE ESTERASE DIPSTICK" /> <statusCode code="completed" /> < effectiveTime value="[id number]" /> <value unit="" xsi:type="PQ" value="NEGATIVE" /> <referenceRange> <observationRange> <text>NEGATIVE</text> </observationRange> </ referenceRange> </observation> </component> <component> <observation moodCode="EVN" classCode="OBS"> <templateId root= "216.840.1.548968.10...4.2" /> <id nullFlavor="NA" /> < code codeSystem="local" code="NITRIU" displayName="UA NITRITE DIPSTICK" /> <statusCode code="completed" /> <effectiveTime value="479306525213 " /> <value unit="" xsi:type="PQ" value="NEGATIVE" /> < referenceRange> <observationRange> <text>NEGATIVE</text > </observationRange> </referenceRange> </observation > </component> <component> <observation moodCode="EVN" classCode="OBS"> <templateId root="16.840.1.530025.10..4.2" /> <id nullFlavor="NA" /> <code codeSystem="local" code="PROTEIU " displayName="UA PROTEIN DIPSTICK" /> <statusCode code="completed" /> <effectiveTime value="" /> <value unit="" xsi: type="PQ" value="NEGATIVE" /> <referenceRange> < observationRange> <text>NEGATIVE</text> </ observationRange> </referenceRange> </observation> </ component> <component> <observation moodCode="EVN" classCode="OBS"> <templateId root="10.03.840.1.117255.10..4.2" /> <id nullFlavor="NA" /> <code codeSystem="local" code="DGLUU" displayName= "UA GLUCOSE DIPSTICK" /> <statusCode code="completed" /> < effectiveTime value="" /> <value unit="" xsi:type="PQ" value="NEGATIVE" /> <referenceRange> <observationRange> <text>NEGATIVE</text> </observationRange> </ referenceRange> </observation> </component> <component> <observation moodCode="EVN" classCode="OBS"> <templateId root= "10.03.840.1.414736.10..4.2" /> <id nullFlavor="NA" /> < code codeSystem="local" code="KETONU" displayName="UA KETONE DIPSTICK" /> <statusCode code="completed" /> <effectiveTime value=" " /> <value unit="" xsi:type="PQ" value="NEGATIVE" /> < referenceRange> <observationRange> <text>NEGATIVE</text > </observationRange> </referenceRange> </observation > </component> <component> <observation moodCode="EVN" classCode="OBS"> <templateId root="216.840.1.722637.06.06.22.4.2" /> <id nullFlavor="NA" /> <code codeSystem="local" code="UROBILU " displayName="UA UROBILINOGEN DIPSTICK" /> <statusCode code="completed " /> <effectiveTime value="" /> <value unit="" xsi :type="PQ" value="NORMAL" /> <referenceRange> < observationRange> <text>NORMAL</text> </observationRange > </referenceRange> </observation> </component> < component> <observation moodCode="EVN" classCode="OBS"> < templateId root="216.840.1.804235.06.06.22.4.2" /> <id nullFlavor="NA " /> <code codeSystem="local" code="BILU" displayName="UA BILIRUBIN DIPSTICK" /> <statusCode code="completed" /> <effectiveTime value="" /> <value unit="" xsi:type="PQ" value="NEGATIVE" / > <referenceRange> <observationRange> <text> NEGATIVE</text> </observationRange> </referenceRange> </observation> </component> <component> <observation moodCode ="EVN" classCode="OBS"> <templateId root= "216.840.1.880603.06.06.22.4.2" /> <id nullFlavor="NA" /> < code codeSystem="local" code="ADAM" displayName="UA BLOOD DIPSTICK" /> < statusCode code="completed" /> <effectiveTime value="" /> <value unit="" xsi:type="PQ" value="NEGATIVE" /> < referenceRange> <observationRange> <text>NEGATIVE</text > </observationRange> </referenceRange> </observation > </component> <component> <observation moodCode="EVN" classCode="OBS"> <templateId root="10.03.840.1.649016.10...4.2" /> <id nullFlavor="NA" /> <code codeSystem="local" code="SPGRU" displayName="UA SPECIFIC GRAVITY" /> <statusCode code="completed" /> <effectiveTime value="136253354655" /> <value unit="" xsi:type= "PQ" value="1.009" /> <interpretationCode codeSystem="local" code="*" / > <referenceRange> <observationRange> <text> 1.015-1.025</text> </observationRange> </referenceRange> </observation> </component> <component> <observation moodCode="EVN" classCode="OBS"> <templateId root= "10.03.840.1.381384.06.06.22.4.2" /> <id nullFlavor="NA" /> < code codeSystem="local" code="INGRID" displayName="UR PH" /> <statusCode code="completed" /> <effectiveTime value="112656820997" /> < value unit="" xsi:type="PQ" value="6.5" /> <referenceRange> <observationRange> <text>5.0-7.0</text> </ observationRange> </referenceRange> </observation> </ component> </organizer> </entry> <entry> <organizer moodCode="EVN" classCode="BATTERY"> <templateId root="16.840.1.664674.10..22.4.1" /> <id nullFlavor="NA" /> <code codeSystem="local" code="DRUGAB" displayName="UR DRUGS OF ABUSE SCREEN" /> <statusCode code="completed" /> <component> <observation moodCode="EVN" classCode="OBS"> < templateId root="216.840.1.613268.10..22.4.2" /> <id nullFlavor="NA " /> <code codeSystem="local" code="AMPHU" displayName="UR AMPHETAMINES SCREEN" /> <statusCode code="completed" /> < effectiveTime value="532378420921" /> <value unit="" xsi:type="PQ" value="POS (>1000 ng/mL)" /> <referenceRange> < observationRange> <text>NEGATIVE</text> </ observationRange> </referenceRange> </observation> </ component> <component> <observation moodCode="EVN" classCode="OBS"> <templateId root="16.840.1.971226.10..4.2" /> <id nullFlavor="NA" /> <code codeSystem="local" code="BARBU" displayName= "UR BARBITURATE SCREEN" /> <statusCode code="completed" /> < effectiveTime value="086810471040" /> <value unit="" xsi:type="PQ" value="NEG (< 200 ng/mL)" /> <referenceRange> < observationRange> <text>NEGATIVE</text> </ observationRange> </referenceRange> </observation> </ component> <component> <observation moodCode="EVN" classCode="OBS"> <templateId root="216.840.1.710577.10..22.4.2" /> <id nullFlavor="NA" /> <code codeSystem="local" code="DAUCOMMENT" displayName="DRUGS OF ABUSE SCREEN COMMENT" /> <statusCode code= "completed" /> <effectiveTime value="" /> <value unit="" xsi:type="PQ" value="" /> <referenceRange> < observationRange> <text /> </observationRange> </referenceRange> </observation> </component> <component> <observation moodCode="EVN" classCode="OBS"> <templateId root= "216.840.1.138640.10...4.2" /> <id nullFlavor="NA" /> < code codeSystem="local" code="OPIU" displayName="UR OPIATES SCREEN" /> <statusCode code="completed" /> <effectiveTime value="" /> <value unit="" xsi:type="PQ" value="NEG (< 300 ng/mL)" /> <referenceRange> <observationRange> <text>NEGATIVE</ text> </observationRange> </referenceRange> </ observation> </component> <component> <observation moodCode= "EVN" classCode="OBS"> <templateId root="216.840.1.521216.10..4.2 " /> <id nullFlavor="NA" /> <code codeSystem="local" code= "PCPU" displayName="UR PHENCYCLIDINE (PCP) SCREEN" /> <statusCode code= "completed" /> <effectiveTime value="" /> <value unit="" xsi:type="PQ" value="NEG (< 25 ng/mL)" /> <referenceRange > <observationRange> <text>NEGATIVE</text> </ observationRange> </referenceRange> </observation> </ component> <component> <observation moodCode="EVN" classCode="OBS"> <templateId root="2.16.840.1.054643.10...4.2" /> <id nullFlavor="NA" /> <code codeSystem="local" code="THCU" displayName=" UR CANNABINOIDS (THC) SCREEN" /> <statusCode code="completed" /> <effectiveTime value="704992220253" /> <value unit="" xsi:type="PQ " value="POS (> 50 ng/mL)" /> <referenceRange> < observationRange> <text>NEGATIVE</text> </ observationRange> </referenceRange> </observation> </ component> <component> <observation moodCode="EVN" classCode="OBS"> <templateId root="2.16.840.1.374618.10..22.4.2" /> <id nullFlavor="NA" /> <code codeSystem="local" code="COCAU" displayName= "UR COCAINE METABOLITE SCREEN" /> <statusCode code="completed" /> <effectiveTime value="" /> <value unit="" xsi:type="PQ " value="NEG (< 300 ng/mL)" /> <referenceRange> < observationRange> <text>NEGATIVE</text> </ observationRange> </referenceRange> </observation> </ component> <component> <observation moodCode="EVN" classCode="OBS"> <templateId root="2.16.840.1.896077.10..22.4.2" /> <id nullFlavor="NA" /> <code codeSystem="local" code="METHU" displayName= "UR METHADONE SCREEN" /> <statusCode code="completed" /> < effectiveTime value="" /> <value unit="" xsi:type="PQ" value="NEG (< 300 ng/mL)" /> <referenceRange> < observationRange> <text>NEGATIVE</text> </ observationRange> </referenceRange> </observation> </ component> <component> <observation moodCode="EVN" classCode="OBS"> <templateId root="2.16.840.1.936184.10.20.22.4.2" /> <id nullFlavor="NA" /> <code codeSystem="local" code="BENZU" displayName= "UR BENZODIAZEPINE SCREEN" /> <statusCode code="completed" /> <effectiveTime value="160141387453" /> <value unit="" xsi:type="PQ" value="NEG (< 200 ng/mL)" /> <referenceRange> < observationRange> <text>NEGATIVE</text> </ observationRange> </referenceRange> </observation> </ component> </organizer> </entry> <entry> <organizer moodCode="EVN" classCode="BATTERY"> <templateId root="2.16.840.1.644816.10.20.22.4.1" /> <id nullFlavor="NA" /> <code codeSystem="local" code="MRSAS" displayName="MRSA SURVEILLANCE SCREEN" /> <statusCode code="completed" /> <component> <observation moodCode="EVN" classCode="OBS"> < templateId root="2.16.840.1.296811.10.20.22.4.2" /> <id nullFlavor="NA " /> <code codeSystem="local" code="MB" displayName="Microbiology" /> <statusCode code="completed" /> <effectiveTime value= "689351899535" /> <value xsi:type="ST" value="<pre><b>MRSA SURVEILLANCE SCREEN</b> See Below: PATIENT REPORTS "I THINK I MIGHT HAVE HAD STAFF BEFORE"RESULT CALLED TO MARLI BARAJAS BY YEFRI AT 1244, 03/20/17.MRSA SURVEILLANCE SCREEN(F) Cosme Date/Time: 03/19/2017 08:48 Irvin Date/Time: 03/20/2017 12:44SOURCE: ANTERIOR NARESSPEC DESC: CALL REPORT, RCT T [facility] CONTACT PRECAUTIONS SHOULD BE IMPLEMENTED 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)[facility] [place] [address]</pre>" /> <referenceRange> <observationRange> <text /> </observationRange> </referenceRange> </observation> </component> </organizer > </entry> <entry> <organizer moodCode="EVN" classCode="BATTERY"> < templateId root="2.16.840.1.199579.10..22.4.1" /> <id nullFlavor="NA" /> <code codeSystem="local" code="GLUMON" displayName="GLUCOSE (POC)" /> <statusCode code="completed" /> <component> <observation moodCode= "EVN" classCode="OBS"> <templateId root="2.16.840.1.606911.10..22.4.2 " /> <id nullFlavor="NA" /> <code codeSystem="local" code= "GLUMON" displayName="GLUCOSE (POC)" /> <statusCode code="completed" / > <effectiveTime value="006643859393" /> <value unit="mg/dL" xsi:type="PQ" value="143" /> <interpretationCode codeSystem="local" code="*" /> <referenceRange> <observationRange> <text>70-99</text> </observationRange> </referenceRange> </observation> </component> </organizer> </entry> <entry> < organizer moodCode="EVN" classCode="BATTERY"> <templateId root= "2.16.840.1.263988.10..22.4.1" /> <id nullFlavor="NA" /> <code codeSystem="local" code="GLUMON" displayName="GLUCOSE (POC)" /> < statusCode code="completed" /> <component> <observation moodCode= "EVN" classCode="OBS"> <templateId root="2.16.840.1.965995.10.20.22.4.2 " /> <id nullFlavor="NA" /> <code codeSystem="local" code= "GLUMON" displayName="GLUCOSE (POC)" /> <statusCode code="completed" / > <effectiveTime value="888066441498" /> <value unit="mg/dL" xsi:type="PQ" value="130" /> <interpretationCode codeSystem="local" code="*" /> <referenceRange> <observationRange> <text>70-99</text> </observationRange> </referenceRange> </observation> </component> </organizer> </entry> <entry> < organizer moodCode="EVN" classCode="BATTERY"> <templateId root= "2.16.840.1.764202.10..22.4.1" /> <id nullFlavor="NA" /> <code codeSystem="local" code="GLUMON" displayName="GLUCOSE (POC)" /> < statusCode code="completed" /> <component> <observation moodCode= "EVN" classCode="OBS"> <templateId root="2.16.840.1.849076.10.20.22.4.2 " /> <id nullFlavor="NA" /> <code codeSystem="local" code= "GLUMON" displayName="GLUCOSE (POC)" /> <statusCode code="completed" / > <effectiveTime value="679330995822" /> <value unit="mg/dL" xsi:type="PQ" value="169" /> <interpretationCode codeSystem="local" code="*" /> <referenceRange> <observationRange> <text>70-99</text> </observationRange> </referenceRange> </observation> </component> </organizer> </entry> <entry> < organizer moodCode="EVN" classCode="BATTERY"> <templateId root= "2.16.840.1.494969.10..22.4.1" /> <id nullFlavor="NA" /> <code codeSystem="local" code="CBCD" displayName="CBC W/DIFF" /> <statusCode code ="completed" /> <component> <observation moodCode="EVN" classCode= "OBS"> <templateId root="2.16.840.1.375115.10...4.2" /> < id nullFlavor="NA" /> <code codeSystem="local" code="EO#" displayName= "EOSINOPHIL #" /> <statusCode code="completed" /> < effectiveTime value="722074698556" /> <value unit="k/cumm" xsi:type="PQ " value="0.1" /> <referenceRange> <observationRange> <text>0.1-0.5</text> </observationRange> </ referenceRange> </observation> </component> <component> <observation moodCode="EVN" classCode="OBS"> <templateId root= "2.16.840.1.832480.10...4.2" /> <id nullFlavor="NA" /> < code codeSystem="local" code="EO%" displayName="EOSINOPHIL %" /> <statusCode code="completed" /> <effectiveTime value="249743211329" /> <value unit="%" xsi:type="PQ" value="1" /> < interpretationCode codeSystem="local" code="*" /> <referenceRange> <observationRange> <text>2-4</text> </ observationRange> </referenceRange> </observation> </ component> <component> <observation moodCode="EVN" classCode="OBS"> <templateId root="16.840.1.394640.10..4.2" /> <id nullFlavor="NA" /> <code codeSystem="local" code="GR#" displayName= "GRANULOCYTE #" /> <statusCode code="completed" /> < effectiveTime value="" /> <value unit="k/cumm" xsi:type="PQ " value="4.9" /> <referenceRange> <observationRange> <text>2.0-9.0</text> </observationRange> </ referenceRange> </observation> </component> <component> <observation moodCode="EVN" classCode="OBS"> <templateId root= "16.840.1.394572.06.06.22.4.2" /> <id nullFlavor="NA" /> < code codeSystem="local" code="GR%" displayName="GRANULOCYTE %" /> <statusCode code="completed" /> <effectiveTime value=" " /> <value unit="%" xsi:type="PQ" value="69" /> < referenceRange> <observationRange> <text>50-75</text> </observationRange> </referenceRange> </observation> </component> <component> <observation moodCode="EVN" classCode= "OBS"> <templateId root="16.840.1.878018.10.22.4.2" /> < id nullFlavor="NA" /> <code codeSystem="local" code="LY#" displayName= "LYMPHOCYTE #" /> <statusCode code="completed" /> < effectiveTime value="" /> <value unit="k/cumm" xsi:type="PQ " value="1.4" /> <referenceRange> <observationRange> <text>1.0-4.0</text> </observationRange> </ referenceRange> </observation> </component> <component> <observation moodCode="EVN" classCode="OBS"> <templateId root= "216.840.1.434462.10.20.22.4.2" /> <id nullFlavor="NA" /> < code codeSystem="local" code="LY%" displayName="LYMPHOCYTE %" /> <statusCode code="completed" /> <effectiveTime value="403876446766" /> <value unit="%" xsi:type="PQ" value="19" /> < interpretationCode codeSystem="local" code="*" /> <referenceRange> <observationRange> <text>20-30</text> </ observationRange> </referenceRange> </observation> </ component> <component> <observation moodCode="EVN" classCode="OBS"> <templateId root="16.840.1.074468.10..4.2" /> <id nullFlavor="NA" /> <code codeSystem="local" code="MCH" displayName= "MEAN CELL HGB" /> <statusCode code="completed" /> < effectiveTime value="217922457421" /> <value unit="pg" xsi:type="PQ" value="23.6" /> <interpretationCode codeSystem="local" code="*" /> <referenceRange> <observationRange> <text>27.0- 33.0</text> </observationRange> </referenceRange> </ observation> </component> <component> <observation moodCode= "EVN" classCode="OBS"> <templateId root="216.840.1.079210.10.2022.4.2 " /> <id nullFlavor="NA" /> <code codeSystem="local" code= "MCHC" displayName="MEAN CELL HGB CONCENTRATION" /> <statusCode code= "completed" /> <effectiveTime value="" /> <value unit="g/dL" xsi:type="PQ" value="31.4" /> <interpretationCode codeSystem="local" code="*" /> <referenceRange> < observationRange> <text>32.0-37.0</text> </ observationRange> </referenceRange> </observation> </ component> <component> <observation moodCode="EVN" classCode="OBS"> <templateId root="2.16.840.1.169845.10..4.2" /> <id nullFlavor="NA" /> <code codeSystem="local" code="MCV" displayName= "MEAN CELL VOLUME" /> <statusCode code="completed" /> < effectiveTime value="" /> <value unit="fl" xsi:type="PQ" value="75.2" /> <interpretationCode codeSystem="local" code="*" /> <referenceRange> <observationRange> <text>80.0- 100.0</text> </observationRange> </referenceRange> </ observation> </component> <component> <observation moodCode= "EVN" classCode="OBS"> <templateId root="216.840.1.001189.10.22.4.2 " /> <id nullFlavor="NA" /> <code codeSystem="local" code="MO# " displayName="MONOCYTE #" /> <statusCode code="completed" /> <effectiveTime value="" /> <value unit="k/cumm" xsi:type= "PQ" value="0.7" /> <referenceRange> <observationRange> <text>0.1-1.0</text> </observationRange> </ referenceRange> </observation> </component> <component> <observation moodCode="EVN" classCode="OBS"> <templateId root= "216.840.1.135934.10.2022.4.2" /> <id nullFlavor="NA" /> < code codeSystem="local" code="MO%" displayName="MONOCYTE %" /> <statusCode code="completed" /> <effectiveTime value="121538263063" /> <value unit="%" xsi:type="PQ" value="10" /> < interpretationCode codeSystem="local" code="*" /> <referenceRange> <observationRange> <text>4-6</text> </ observationRange> </referenceRange> </observation> </ component> <component> <observation moodCode="EVN" classCode="OBS"> <templateId root="840.1.494179.06.06.22.4.2" /> <id nullFlavor="NA" /> <code codeSystem="local" code="MPVT" displayName= "MEAN PLATELET VOLUME" /> <statusCode code="completed" /> < effectiveTime value="396544118279" /> <value unit="fl" xsi:type="PQ" value="8.9" /> <referenceRange> <observationRange> <text>8.5-10.9</text> </observationRange> </ referenceRange> </observation> </component> <component> <observation moodCode="EVN" classCode="OBS"> <templateId root= "10.03.840.1.329387.102022.4.2" /> <id nullFlavor="NA" /> < code codeSystem="local" code="OVAL" displayName="OVALOCYTES" /> < statusCode code="completed" /> <effectiveTime value="936287148722" /> <value unit="" xsi:type="PQ" value="NOTED" /> <referenceRange > <observationRange> <text /> </ observationRange> </referenceRange> </observation> </ component> <component> <observation moodCode="EVN" classCode="OBS"> <templateId root="2.16.840.1.146129.10...4.2" /> <id nullFlavor="NA" /> <code codeSystem="local" code="RBC" displayName=" RED BLOOD CELL" /> <statusCode code="completed" /> < effectiveTime value="" /> <value unit="m/cumm" xsi:type="PQ " value="4.11" /> <referenceRange> <observationRange> <text>4.00-6.00</text> </observationRange> </ referenceRange> </observation> </component> <component> <observation moodCode="EVN" classCode="OBS"> <templateId root= "216.840.1.228736...4.2" /> <id nullFlavor="NA" /> < code codeSystem="local" code="RDW" displayName="RED CELL DISTRIBUTION WIDTH" /> <statusCode code="completed" /> <effectiveTime value= "" /> <value unit="%" xsi:type="PQ" value="19.5" /> <interpretationCode codeSystem="local" code="*" /> < referenceRange> <observationRange> <text>11.0-15.6</text > </observationRange> </referenceRange> </observation > </component> <component> <observation moodCode="EVN" classCode="OBS"> <templateId root="216.840.1.780751.06.06.22.4.2" /> <id nullFlavor="NA" /> <code codeSystem="local" code="WBC" displayName="WHITE BLOOD CELL" /> <statusCode code="completed" /> <effectiveTime value="" /> <value unit="k/cumm" xsi: type="PQ" value="7.1" /> <referenceRange> <observationRange > <text>5.0-10.0</text> </observationRange> </ referenceRange> </observation> </component> <component> <observation moodCode="EVN" classCode="OBS"> <templateId root= "216.840.1.481071.06.06.22.4.2" /> <id nullFlavor="NA" /> < code codeSystem="local" code="HGBT" displayName="HEMOGLOBIN" /> < statusCode code="completed" /> <effectiveTime value="" /> <value unit="gm/dL" xsi:type="PQ" value="9.7" /> < interpretationCode codeSystem="local" code="*" /> <referenceRange> <observationRange> <text>12.0-16.0</text> </ observationRange> </referenceRange> </observation> </ component> <component> <observation moodCode="EVN" classCode="OBS"> <templateId root="216.840.1.410976.06.06.22.4.2" /> <id nullFlavor="NA" /> <code codeSystem="local" code="HCTT" displayName= "HEMATOCRIT" /> <statusCode code="completed" /> < effectiveTime value="" /> <value unit="%" xsi:type="PQ " value="30.9" /> <interpretationCode codeSystem="local" code="*" /> <referenceRange> <observationRange> <text>37.0- 47.0</text> </observationRange> </referenceRange> </ observation> </component> <component> <observation moodCode= "EVN" classCode="OBS"> <templateId root="16.840.1.032423.10.20.22.4.2 " /> <id nullFlavor="NA" /> <code codeSystem="local" code= "PLTT" displayName="PLATELET COUNT" /> <statusCode code="completed" /> <effectiveTime value="863380458503" /> <value unit="k/cumm" xsi:type="PQ" value="362" /> <referenceRange> < observationRange> <text>150-400</text> </ observationRange> </referenceRange> </observation> </ component> </organizer> </entry> <entry> <organizer moodCode="EVN" classCode="BATTERY"> <templateId root="216.840.1.526298.10..22.4.1" /> <id nullFlavor="NA" /> <code codeSystem="local" code="RENAL" displayName="RENAL FUNCTION PANEL" /> <statusCode code="completed" /> <component> <observation moodCode="EVN" classCode="OBS"> < templateId root="16.840.1.244346.10..22.4.2" /> <id nullFlavor="NA " /> <code codeSystem="local" code="K" displayName="POTASSIUM" /> <statusCode code="completed" /> <effectiveTime value="684200016408 " /> <value unit="mmol/L" xsi:type="PQ" value="4.9" /> < referenceRange> <observationRange> <text>3.5-5.3</text> </observationRange> </referenceRange> </observation > </component> <component> <observation moodCode="EVN" classCode="OBS"> <templateId root="2.16.840.1.618295.10..22.4.2" /> <id nullFlavor="NA" /> <code codeSystem="local" code="eGFR" displayName="EST GFR (MDRD)" /> <statusCode code="completed" /> <effectiveTime value="" /> <value unit="mL/min" xsi:type ="PQ" value="58" /> <interpretationCode codeSystem="local" code="*" /> <referenceRange> <observationRange> <text>&gt ; 59</text> </observationRange> </referenceRange> </ observation> </component> <component> <observation moodCode= "EVN" classCode="OBS"> <templateId root="216.840.1.094057.06.06.22.4.2 " /> <id nullFlavor="NA" /> <code codeSystem="local" code="GAP " displayName="ANION GAP" /> <statusCode code="completed" /> < effectiveTime value="" /> <value unit="mmol/L" xsi:type="PQ " value="9" /> <referenceRange> <observationRange> <text>5-15</text> </observationRange> </referenceRange > </observation> </component> <component> <observation moodCode="EVN" classCode="OBS"> <templateId root= "216.840.1.339684.10..22.4.2" /> <id nullFlavor="NA" /> < code codeSystem="local" code="eCrCl" displayName="EST CrCl (CG)" /> < statusCode code="completed" /> <effectiveTime value="" /> <value unit="mL/min" xsi:type="PQ" value="47" /> < interpretationCode codeSystem="local" code="*" /> <referenceRange> <observationRange> <text>> 59</text> </ observationRange> </referenceRange> </observation> </ component> <component> <observation moodCode="EVN" classCode="OBS"> <templateId root="10.03.840.1.848089.10.22.4.2" /> <id nullFlavor="NA" /> <code codeSystem="local" code="GLU" displayName= "GLUCOSE" /> <statusCode code="completed" /> <effectiveTime value="152435529075" /> <value unit="mg/dL" xsi:type="PQ" value="138" / > <interpretationCode codeSystem="local" code="*" /> < referenceRange> <observationRange> <text>70-99</text> </observationRange> </referenceRange> </observation> </component> <component> <observation moodCode="EVN" classCode= "OBS"> <templateId root="10.03.840.1.796622.06.06.22.4.2" /> < id nullFlavor="NA" /> <code codeSystem="local" code="CA" displayName= "CALCIUM" /> <statusCode code="completed" /> <effectiveTime value="014265788330" /> <value unit="mg/dL" xsi:type="PQ" value="8.5" / > <referenceRange> <observationRange> <text>8.5 -10.1</text> </observationRange> </referenceRange> </ observation> </component> <component> <observation moodCode= "EVN" classCode="OBS"> <templateId root="16.840.1.006800.10.2022.4.2 " /> <id nullFlavor="NA" /> <code codeSystem="local" code="BUN " displayName="BLOOD UREA NITROGEN" /> <statusCode code="completed" /> <effectiveTime value="185798582517" /> <value unit="mg/dL" xsi:type="PQ" value="15" /> <referenceRange> < observationRange> <text>7-20</text> </observationRange> </referenceRange> </observation> </component> < component> <observation moodCode="EVN" classCode="OBS"> < templateId root="2.16.840.1.826577.10..22.4.2" /> <id nullFlavor="NA " /> <code codeSystem="local" code="CREAT" displayName="CREATININE" /> <statusCode code="completed" /> <effectiveTime value= "301464065346" /> <value unit="mg/dL" xsi:type="PQ" value="1.0" /> <referenceRange> <observationRange> <text>0.6-1.0< /text> </observationRange> </referenceRange> </ observation> </component> <component> <observation moodCode= "EVN" classCode="OBS"> <templateId root="2.16.840.1.985359.10..22.4.2 " /> <id nullFlavor="NA" /> <code codeSystem="local" code="NA " displayName="SODIUM" /> <statusCode code="completed" /> < effectiveTime value="382637610984" /> <value unit="mmol/L" xsi:type="PQ " value="134" /> <interpretationCode codeSystem="local" code="*" /> <referenceRange> <observationRange> <text>135-148 </text> </observationRange> </referenceRange> </ observation> </component> <component> <observation moodCode= "EVN" classCode="OBS"> <templateId root="16.840.1.253594.10.20.22.4.2 " /> <id nullFlavor="NA" /> <code codeSystem="local" code="CL " displayName="CHLORIDE" /> <statusCode code="completed" /> < effectiveTime value="" /> <value unit="mmol/L" xsi:type="PQ " value="103" /> <referenceRange> <observationRange> <text>98-110</text> </observationRange> </ referenceRange> </observation> </component> <component> <observation moodCode="EVN" classCode="OBS"> <templateId root= "16.840.1.677806.10.22.4.2" /> <id nullFlavor="NA" /> < code codeSystem="local" code="CO2" displayName="CARBON DIOXIDE" /> < statusCode code="completed" /> <effectiveTime value="" /> <value unit="mmol/L" xsi:type="PQ" value="22" /> < referenceRange> <observationRange> <text>21-32</text> </observationRange> </referenceRange> </observation> </component> <component> <observation moodCode="EVN" classCode= "OBS"> <templateId root="10.03.840.1.763742.10..22.4.2" /> < id nullFlavor="NA" /> <code codeSystem="local" code="ALB" displayName= "ALBUMIN" /> <statusCode code="completed" /> <effectiveTime value="644655296266" /> <value unit="gm/dL" xsi:type="PQ" value="3.0" / > <interpretationCode codeSystem="local" code="*" /> < referenceRange> <observationRange> <text>3.4-5.0</text> </observationRange> </referenceRange> </observation > </component> <component> <observation moodCode="EVN" classCode="OBS"> <templateId root="16.840.1.512139.10.20.22.4.2" /> <id nullFlavor="NA" /> <code codeSystem="local" code="PHOS" displayName="PHOSPHORUS" /> <statusCode code="completed" /> < effectiveTime value="093054927246" /> <value unit="mg/dL" xsi:type="PQ " value="3.5" /> <referenceRange> <observationRange> <text>2.5-4.9</text> </observationRange> </ referenceRange> </observation> </component> </organizer> </entry > <entry> <organizer moodCode="EVN" classCode="BATTERY"> <templateId root="16.840.1.808287.10..22.4.1" /> <id nullFlavor="NA" /> <code codeSystem="local" code="MAG" displayName="MAGNESIUM" /> <statusCode code= "completed" /> <component> <observation moodCode="EVN" classCode= "OBS"> <templateId root="10.03.840.1.694228.10.22.4.2" /> < id nullFlavor="NA" /> <code codeSystem="local" code="MAG" displayName= "MAGNESIUM" /> <statusCode code="completed" /> <effectiveTime value="169181725697" /> <value unit="mg/dL" xsi:type="PQ" value="1.9" / > <referenceRange> <observationRange> <text>1.8 -2.4</text> </observationRange> </referenceRange> </ observation> </component> </organizer> </entry> <entry> <organizer moodCode="EVN" classCode="BATTERY"> <templateId root= "840.1.082895.06.06.22.4.1" /> <id nullFlavor="NA" /> <code codeSystem="local" code="GLUMON" displayName="GLUCOSE (POC)" /> < statusCode code="completed" /> <component> <observation moodCode= "EVN" classCode="OBS"> <templateId root="840.1.238863.06.06.22.4.2 " /> <id nullFlavor="NA" /> <code codeSystem="local" code= "GLUMON" displayName="GLUCOSE (POC)" /> <statusCode code="completed" / > <effectiveTime value="334244701917" /> <value unit="mg/dL" xsi:type="PQ" value="125" /> <interpretationCode codeSystem="local" code="*" /> <referenceRange> <observationRange> <text>70-99</text> </observationRange> </referenceRange> </observation> </component> </organizer> </entry> <entry> < organizer moodCode="EVN" classCode="BATTERY"> <templateId root= "840.1.732115.06.06.22.4.1" /> <id nullFlavor="NA" /> <code codeSystem="local" code="CBCD" displayName="CBC W/DIFF" /> <statusCode code ="completed" /> <component> <observation moodCode="EVN" classCode= "OBS"> <templateId root="840.1.029367.06.06.22.4.2" /> < id nullFlavor="NA" /> <code codeSystem="local" code="BA#" displayName= "BASOPHIL #" /> <statusCode code="completed" /> < effectiveTime value="616873790183" /> <value unit="k/cumm" xsi:type="PQ " value="0.0" /> <referenceRange> <observationRange> <text>0.0-0.2</text> </observationRange> </ referenceRange> </observation> </component> <component> <observation moodCode="EVN" classCode="OBS"> <templateId root= "216.840.1.453738.10..22.4.2" /> <id nullFlavor="NA" /> < code codeSystem="local" code="BA%" displayName="BASOPHIL %" /> <statusCode code="completed" /> <effectiveTime value="750306693681" /> <value unit="%" xsi:type="PQ" value="1" /> < referenceRange> <observationRange> <text>0-1</text> </observationRange> </referenceRange> </observation> </component> <component> <observation moodCode="EVN" classCode= "OBS"> <templateId root="216.840.1.162152.10..22.4.2" /> < id nullFlavor="NA" /> <code codeSystem="local" code="EO#" displayName= "EOSINOPHIL #" /> <statusCode code="completed" /> < effectiveTime value="300074324828" /> <value unit="k/cumm" xsi:type="PQ " value="0.1" /> <referenceRange> <observationRange> <text>0.1-0.5</text> </observationRange> </ referenceRange> </observation> </component> <component> <observation moodCode="EVN" classCode="OBS"> <templateId root= "16.840.1.080887.10.22.4.2" /> <id nullFlavor="NA" /> < code codeSystem="local" code="EO%" displayName="EOSINOPHIL %" /> <statusCode code="completed" /> <effectiveTime value="" /> <value unit="%" xsi:type="PQ" value="1" /> < interpretationCode codeSystem="local" code="*" /> <referenceRange> <observationRange> <text>2-4</text> </ observationRange> </referenceRange> </observation> </ component> <component> <observation moodCode="EVN" classCode="OBS"> <templateId root="10.03.840.1.801733.06.06.22.4.2" /> <id nullFlavor="NA" /> <code codeSystem="local" code="GR#" displayName= "GRANULOCYTE #" /> <statusCode code="completed" /> < effectiveTime value="" /> <value unit="k/cumm" xsi:type="PQ " value="5.4" /> <referenceRange> <observationRange> <text>2.0-9.0</text> </observationRange> </ referenceRange> </observation> </component> <component> <observation moodCode="EVN" classCode="OBS"> <templateId root= "10.03.840.1.456689.10.2022.4.2" /> <id nullFlavor="NA" /> < code codeSystem="local" code="GR%" displayName="GRANULOCYTE %" /> <statusCode code="completed" /> <effectiveTime value=" " /> <value unit="%" xsi:type="PQ" value="74" /> < referenceRange> <observationRange> <text>50-75</text> </observationRange> </referenceRange> </observation> </component> <component> <observation moodCode="EVN" classCode= "OBS"> <templateId root="10.03.840.1.072609.10.20.22.4.2" /> < id nullFlavor="NA" /> <code codeSystem="local" code="LY#" displayName= "LYMPHOCYTE #" /> <statusCode code="completed" /> < effectiveTime value="611878411020" /> <value unit="k/cumm" xsi:type="PQ " value="1.2" /> <referenceRange> <observationRange> <text>1.0-4.0</text> </observationRange> </ referenceRange> </observation> </component> <component> <observation moodCode="EVN" classCode="OBS"> <templateId root= "10.03.840.1.228809.06.06.22.4.2" /> <id nullFlavor="NA" /> < code codeSystem="local" code="LY%" displayName="LYMPHOCYTE %" /> <statusCode code="completed" /> <effectiveTime value="791301666291" /> <value unit="%" xsi:type="PQ" value="17" /> < interpretationCode codeSystem="local" code="*" /> <referenceRange> <observationRange> <text>20-30</text> </ observationRange> </referenceRange> </observation> </ component> <component> <observation moodCode="EVN" classCode="OBS"> <templateId root="10.03.840.1.521684.10.2022.4.2" /> <id nullFlavor="NA" /> <code codeSystem="local" code="MCH" displayName= "MEAN CELL HGB" /> <statusCode code="completed" /> < effectiveTime value="424232593466" /> <value unit="pg" xsi:type="PQ" value="23.5" /> <interpretationCode codeSystem="local" code="*" /> <referenceRange> <observationRange> <text>27.0- 33.0</text> </observationRange> </referenceRange> </ observation> </component> <component> <observation moodCode= "EVN" classCode="OBS"> <templateId root="2.16.840.1.395398.10..22.4.2 " /> <id nullFlavor="NA" /> <code codeSystem="local" code= "MCHC" displayName="MEAN CELL HGB CONCENTRATION" /> <statusCode code= "completed" /> <effectiveTime value="005688896880" /> <value unit="g/dL" xsi:type="PQ" value="30.8" /> <interpretationCode codeSystem="local" code="*" /> <referenceRange> < observationRange> <text>32.0-37.0</text> </ observationRange> </referenceRange> </observation> </ component> <component> <observation moodCode="EVN" classCode="OBS"> <templateId root="216.840.1.856345.10..22.4.2" /> <id nullFlavor="NA" /> <code codeSystem="local" code="MCV" displayName= "MEAN CELL VOLUME" /> <statusCode code="completed" /> < effectiveTime value="" /> <value unit="fl" xsi:type="PQ" value="76.3" /> <interpretationCode codeSystem="local" code="*" /> <referenceRange> <observationRange> <text>80.0- 100.0</text> </observationRange> </referenceRange> </ observation> </component> <component> <observation moodCode= "EVN" classCode="OBS"> <templateId root="216.840.1.248405.10.22.4.2 " /> <id nullFlavor="NA" /> <code codeSystem="local" code="MO# " displayName="MONOCYTE #" /> <statusCode code="completed" /> <effectiveTime value="" /> <value unit="k/cumm" xsi:type= "PQ" value="0.5" /> <referenceRange> <observationRange> <text>0.1-1.0</text> </observationRange> </ referenceRange> </observation> </component> <component> <observation moodCode="EVN" classCode="OBS"> <templateId root= "2.840.1.643638.06.06.22.4.2" /> <id nullFlavor="NA" /> < code codeSystem="local" code="MO%" displayName="MONOCYTE %" /> <statusCode code="completed" /> <effectiveTime value="" /> <value unit="%" xsi:type="PQ" value="7" /> < interpretationCode codeSystem="local" code="*" /> <referenceRange> <observationRange> <text>4-6</text> </ observationRange> </referenceRange> </observation> </ component> <component> <observation moodCode="EVN" classCode="OBS"> <templateId root="216.840.1.989007.22.4.2" /> <id nullFlavor="NA" /> <code codeSystem="local" code="MPVT" displayName= "MEAN PLATELET VOLUME" /> <statusCode code="completed" /> < effectiveTime value="" /> <value unit="fl" xsi:type="PQ" value="8.7" /> <referenceRange> <observationRange> <text>8.5-10.9</text> </observationRange> </ referenceRange> </observation> </component> <component> <observation moodCode="EVN" classCode="OBS"> <templateId root= "216.840.1.513377.22.4.2" /> <id nullFlavor="NA" /> < code codeSystem="local" code="RBC" displayName="RED BLOOD CELL" /> < statusCode code="completed" /> <effectiveTime value="" /> <value unit="m/cumm" xsi:type="PQ" value="4.17" /> < referenceRange> <observationRange> <text>4.00-6.00</text > </observationRange> </referenceRange> </observation > </component> <component> <observation moodCode="EVN" classCode="OBS"> <templateId root="216.840.1.460272.06.06.22.4.2" /> <id nullFlavor="NA" /> <code codeSystem="local" code="RDW" displayName="RED CELL DISTRIBUTION WIDTH" /> <statusCode code= "completed" /> <effectiveTime value="" /> <value unit="%" xsi:type="PQ" value="19.4" /> <interpretationCode codeSystem="local" code="*" /> <referenceRange> < observationRange> <text>11.0-15.6</text> </ observationRange> </referenceRange> </observation> </ component> <component> <observation moodCode="EVN" classCode="OBS"> <templateId root="216.840.1.382646.10.2022.4.2" /> <id nullFlavor="NA" /> <code codeSystem="local" code="WBC" displayName= "WHITE BLOOD CELL" /> <statusCode code="completed" /> < effectiveTime value="460701987802" /> <value unit="k/cumm" xsi:type="PQ " value="7.3" /> <referenceRange> <observationRange> <text>5.0-10.0</text> </observationRange> </ referenceRange> </observation> </component> <component> <observation moodCode="EVN" classCode="OBS"> <templateId root= "216.840.1.032836.06.06.22.4.2" /> <id nullFlavor="NA" /> < code codeSystem="local" code="HGBT" displayName="HEMOGLOBIN" /> < statusCode code="completed" /> <effectiveTime value="620282314439" /> <value unit="gm/dL" xsi:type="PQ" value="9.8" /> < interpretationCode codeSystem="local" code="*" /> <referenceRange> <observationRange> <text>12.0-16.0</text> </ observationRange> </referenceRange> </observation> </ component> <component> <observation moodCode="EVN" classCode="OBS"> <templateId root="10.03.840.1.357191.22.4.2" /> <id nullFlavor="NA" /> <code codeSystem="local" code="HCTT" displayName= "HEMATOCRIT" /> <statusCode code="completed" /> < effectiveTime value="972686617743" /> <value unit="%" xsi:type="PQ " value="31.8" /> <interpretationCode codeSystem="local" code="*" /> <referenceRange> <observationRange> <text>37.0- 47.0</text> </observationRange> </referenceRange> </ observation> </component> <component> <observation moodCode= "EVN" classCode="OBS"> <templateId root="16.840.1.804258.1022.4.2 " /> <id nullFlavor="NA" /> <code codeSystem="local" code= "PLTT" displayName="PLATELET COUNT" /> <statusCode code="completed" /> <effectiveTime value="" /> <value unit="k/cumm" xsi:type="PQ" value="361" /> <referenceRange> < observationRange> <text>150-400</text> </ observationRange> </referenceRange> </observation> </ component> </organizer> </entry> <entry> <organizer moodCode="EVN" classCode="BATTERY"> <templateId root="10.03.840.1.711604.10..4.1" /> <id nullFlavor="NA" /> <code codeSystem="local" code="MORPH" displayName="MORPHOLOGY" /> <statusCode code="completed" /> <component > <observation moodCode="EVN" classCode="OBS"> <templateId root= "10.03.840.1.250136.10.4.2" /> <id nullFlavor="NA" /> < code codeSystem="local" code="RMORPH" displayName="RBC MORPH" /> < statusCode code="completed" /> <effectiveTime value="903142132926" /> <value unit="" xsi:type="PQ" value="NOTED" /> <referenceRange > <observationRange> <text /> </ observationRange> </referenceRange> </observation> </ component> </organizer> </entry> <entry> <organizer moodCode="EVN" classCode="BATTERY"> <templateId root="216.840.1.615304.10..22.4.1" /> <id nullFlavor="NA" /> <code codeSystem="local" code="METABC" displayName="METABOLIC PANEL, COMPREHN" /> <statusCode code="completed" /> <component> <observation moodCode="EVN" classCode="OBS"> < templateId root="216.840.1.272009.10..22.4.2" /> <id nullFlavor="NA " /> <code codeSystem="local" code="K" displayName="POTASSIUM" /> <statusCode code="completed" /> <effectiveTime value="809244866432 " /> <value unit="mmol/L" xsi:type="PQ" value="4.4" /> < referenceRange> <observationRange> <text>3.5-5.3</text> </observationRange> </referenceRange> </observation > </component> <component> <observation moodCode="EVN" classCode="OBS"> <templateId root="216.840.1.085470.10..22.4.2" /> <id nullFlavor="NA" /> <code codeSystem="local" code="eGFR" displayName="EST GFR (MDRD)" /> <statusCode code="completed" /> <effectiveTime value="418626734736" /> <value unit="mL/min" xsi:type ="PQ" value="58" /> <interpretationCode codeSystem="local" code="*" /> <referenceRange> <observationRange> <text>&gt ; 59</text> </observationRange> </referenceRange> </ observation> </component> <component> <observation moodCode= "EVN" classCode="OBS"> <templateId root="16.840.1.875334.10..22.4.2 " /> <id nullFlavor="NA" /> <code codeSystem="local" code="GAP " displayName="ANION GAP" /> <statusCode code="completed" /> < effectiveTime value="790214812822" /> <value unit="mmol/L" xsi:type="PQ " value="9" /> <referenceRange> <observationRange> <text>5-15</text> </observationRange> </referenceRange > </observation> </component> <component> <observation moodCode="EVN" classCode="OBS"> <templateId root= "10.03.840.1.578446.10.4.2" /> <id nullFlavor="NA" /> < code codeSystem="local" code="eCrCl" displayName="EST CrCl (CG)" /> < statusCode code="completed" /> <effectiveTime value="975115005442" /> <value unit="mL/min" xsi:type="PQ" value="54" /> < interpretationCode codeSystem="local" code="*" /> <referenceRange> <observationRange> <text>> 59</text> </ observationRange> </referenceRange> </observation> </ component> <component> <observation moodCode="EVN" classCode="OBS"> <templateId root="10.03.840.1.624914.10.22.4.2" /> <id nullFlavor="NA" /> <code codeSystem="local" code="GLU" displayName= "GLUCOSE" /> <statusCode code="completed" /> <effectiveTime value="042859579485" /> <value unit="mg/dL" xsi:type="PQ" value="138" / > <interpretationCode codeSystem="local" code="*" /> < referenceRange> <observationRange> <text>70-99</text> </observationRange> </referenceRange> </observation> </component> <component> <observation moodCode="EVN" classCode= "OBS"> <templateId root="16.840.1.771938.10.20.22.4.2" /> < id nullFlavor="NA" /> <code codeSystem="local" code="CA" displayName= "CALCIUM" /> <statusCode code="completed" /> <effectiveTime value="302258084686" /> <value unit="mg/dL" xsi:type="PQ" value="9.4" / > <referenceRange> <observationRange> <text>8.5 -10.1</text> </observationRange> </referenceRange> </ observation> </component> <component> <observation moodCode= "EVN" classCode="OBS"> <templateId root="10.03.840.1.271547.10..22.4.2 " /> <id nullFlavor="NA" /> <code codeSystem="local" code="BUN " displayName="BLOOD UREA NITROGEN" /> <statusCode code="completed" /> <effectiveTime value="066603135647" /> <value unit="mg/dL" xsi:type="PQ" value="39" /> <interpretationCode codeSystem="local" code ="*" /> <referenceRange> <observationRange> < text>7-20</text> </observationRange> </referenceRange> </observation> </component> <component> <observation moodCode="EVN" classCode="OBS"> <templateId root= "10.03.840.1.305492.10.20.22.4.2" /> <id nullFlavor="NA" /> < code codeSystem="local" code="CREAT" displayName="CREATININE" /> < statusCode code="completed" /> <effectiveTime value="107462639331" /> <value unit="mg/dL" xsi:type="PQ" value="1.0" /> < referenceRange> <observationRange> <text>0.6-1.0</text> </observationRange> </referenceRange> </observation > </component> <component> <observation moodCode="EVN" classCode="OBS"> <templateId root="16.840.1.526453.10...4.2" /> <id nullFlavor="NA" /> <code codeSystem="local" code="NA" displayName="SODIUM" /> <statusCode code="completed" /> < effectiveTime value="732254007104" /> <value unit="mmol/L" xsi:type="PQ " value="133" /> <interpretationCode codeSystem="local" code="*" /> <referenceRange> <observationRange> <text>135-148 </text> </observationRange> </referenceRange> </ observation> </component> <component> <observation moodCode= "EVN" classCode="OBS"> <templateId root="16.840.1.220834.10...4.2 " /> <id nullFlavor="NA" /> <code codeSystem="local" code="CL " displayName="CHLORIDE" /> <statusCode code="completed" /> < effectiveTime value="788678327801" /> <value unit="mmol/L" xsi:type="PQ " value="100" /> <referenceRange> <observationRange> <text>98-110</text> </observationRange> </ referenceRange> </observation> </component> <component> <observation moodCode="EVN" classCode="OBS"> <templateId root= "10.03.840.1.248105...22.4.2" /> <id nullFlavor="NA" /> < code codeSystem="local" code="AST" displayName="AST/SGOT" /> < statusCode code="completed" /> <effectiveTime value="134758339489" /> <value unit="Units/L" xsi:type="PQ" value="20" /> < referenceRange> <observationRange> <text>10-37</text> </observationRange> </referenceRange> </observation> </component> <component> <observation moodCode="EVN" classCode= "OBS"> <templateId root="2.16.840.1.601841....4.2" /> < id nullFlavor="NA" /> <code codeSystem="local" code="ALT" displayName= "ALT/SGPT" /> <statusCode code="completed" /> <effectiveTime value="104603493255" /> <value unit="Units/L" xsi:type="PQ" value="29" /> <referenceRange> <observationRange> <text>& lt; 66</text> </observationRange> </referenceRange> < /observation> </component> <component> <observation moodCode= "EVN" classCode="OBS"> <templateId root="2.16.840.1.194592.10...4.2 " /> <id nullFlavor="NA" /> <code codeSystem="local" code="CO2 " displayName="CARBON DIOXIDE" /> <statusCode code="completed" /> <effectiveTime value="450593666312" /> <value unit="mmol/L" xsi: type="PQ" value="24" /> <referenceRange> <observationRange> <text>21-32</text> </observationRange> </ referenceRange> </observation> </component> <component> <observation moodCode="EVN" classCode="OBS"> <templateId root= "10.03.840.1.970871.10.20.22.4.2" /> <id nullFlavor="NA" /> < code codeSystem="local" code="TP" displayName="TOTAL PROTEIN" /> < statusCode code="completed" /> <effectiveTime value="823223148873" /> <value unit="gm/dL" xsi:type="PQ" value="7.5" /> < referenceRange> <observationRange> <text>6.4-8.2</text> </observationRange> </referenceRange> </observation > </component> <component> <observation moodCode="EVN" classCode="OBS"> <templateId root="10.03.840.1.853378.10.22.4.2" /> <id nullFlavor="NA" /> <code codeSystem="local" code="ALB" displayName="ALBUMIN" /> <statusCode code="completed" /> < effectiveTime value="918181639267" /> <value unit="gm/dL" xsi:type="PQ " value="3.4" /> <referenceRange> <observationRange> <text>3.4-5.0</text> </observationRange> </ referenceRange> </observation> </component> <component> <observation moodCode="EVN" classCode="OBS"> <templateId root= "10.03.840.1.502908.10.20.22.4.2" /> <id nullFlavor="NA" /> < code codeSystem="local" code="BILTOT" displayName="BILI TOTAL" /> < statusCode code="completed" /> <effectiveTime value="061506732679" /> <value unit="mg/dL" xsi:type="PQ" value="< 0.1" /> < referenceRange> <observationRange> <text>0.0-1.0</text> </observationRange> </referenceRange> </observation > </component> <component> <observation moodCode="EVN" classCode="OBS"> <templateId root="216.840.1.152393.10.20.22.4.2" /> <id nullFlavor="NA" /> <code codeSystem="local" code="ALKP" displayName="ALKALINE PHOSPHATASE TOTAL" /> <statusCode code="completed " /> <effectiveTime value="114052409294" /> <value unit="IU/L " xsi:type="PQ" value="100" /> <referenceRange> < observationRange> <text>45-117</text> </observationRange > </referenceRange> </observation> </component> </ organizer> </entry> <entry> <organizer moodCode="EVN" classCode="BATTERY"> <templateId root="216.840.1.738355.10..22.4.1" /> <id nullFlavor= "NA" /> <code codeSystem="local" code="TROPI" displayName="TROPONIN I" /> <statusCode code="completed" /> <component> <observation moodCode="EVN" classCode="OBS"> <templateId root= "216.840.1.321306.10.20.22.4.2" /> <id nullFlavor="NA" /> < code codeSystem="local" code="TROPI" displayName="TROPONIN I" /> < statusCode code="completed" /> <effectiveTime value="817834001577" /> <value unit="ng/mL" xsi:type="PQ" value="< 0.02" /> < referenceRange> <observationRange> <text>< 0.07</text > </observationRange> </referenceRange> </observation > </component> </organizer> </entry> <entry> <organizer moodCode= "EVN" classCode="BATTERY"> <templateId root="840.1.930391.06.06.22.4.1 " /> <id nullFlavor="NA" /> <code codeSystem="local" code="DIMER" displayName="D-DIMER QUANT" /> <statusCode code="completed" /> < component> <observation moodCode="EVN" classCode="OBS"> < templateId root="840.1.653033.06.06.224.2" /> <id nullFlavor="NA " /> <code codeSystem="local" code="DIMER" displayName="D-DIMER QUANT" /> <statusCode code="completed" /> <effectiveTime value= "[id number]" /> <value unit="ng/mL" xsi:type="PQ" value="934" /> <interpretationCode codeSystem="local" code="*" /> < referenceRange> <observationRange> <text>< 612</text > </observationRange> </referenceRange> </observation > </component> </organizer> </entry> <entry> <organizer moodCode= "EVN" classCode="BATTERY"> <templateId root="840.1.449273.06.06.22.4.1 " /> <id nullFlavor="NA" /> <code codeSystem="local" code="iCHEM8" displayName="CHEM/HEM PROFILE-BEDSIDE" /> <statusCode code="completed" /> <component> <observation moodCode="EVN" classCode="OBS"> < templateId root="840.1.402363.10.4.2" /> <id nullFlavor="NA " /> <code codeSystem="local" code="K" displayName="POTASSIUM" /> <statusCode code="completed" /> <effectiveTime value=" " /> <value unit="mmol/L" xsi:type="PQ" value="3.7" /> < referenceRange> <observationRange> <text>3.5-5.3</text> </observationRange> </referenceRange> </observation > </component> <component> <observation moodCode="EVN" classCode="OBS"> <templateId root="16.840.1.087704.10..22.4.2" /> <id nullFlavor="NA" /> <code codeSystem="local" code="CMETHOD " displayName="METHOD" /> <statusCode code="completed" /> < effectiveTime value="" /> <value unit="" xsi:type="PQ" value="Bedside" /> <referenceRange> <observationRange> <text /> </observationRange> </referenceRange> </observation> </component> <component> <observation moodCode="EVN" classCode="OBS"> <templateId root= "16.840.1.465864.10..22.4.2" /> <id nullFlavor="NA" /> < code codeSystem="local" code="GAP" displayName="ANION GAP" /> < statusCode code="completed" /> <effectiveTime value="" /> <value unit="mmol/L" xsi:type="PQ" value="21" /> < interpretationCode codeSystem="local" code="*" /> <referenceRange> <observationRange> <text>10-20</text> </ observationRange> </referenceRange> </observation> </ component> <component> <observation moodCode="EVN" classCode="OBS"> <templateId root="10.03.840.1.069976.10..22.4.2" /> <id nullFlavor="NA" /> <code codeSystem="local" code="HMETHOD" displayName= "METHOD" /> <statusCode code="completed" /> <effectiveTime value="" /> <value unit="" xsi:type="PQ" value="Bedside" / > <referenceRange> <observationRange> <text /> </observationRange> </referenceRange> </observation > </component> <component> <observation moodCode="EVN" classCode="OBS"> <templateId root="216.840.1.837462...4.2" /> <id nullFlavor="NA" /> <code codeSystem="local" code="GLU" displayName="GLUCOSE" /> <statusCode code="completed" /> < effectiveTime value="" /> <value unit="mg/dL" xsi:type="PQ " value="101" /> <interpretationCode codeSystem="local" code="*" /> <referenceRange> <observationRange> <text>70-99</ text> </observationRange> </referenceRange> </ observation> </component> <component> <observation moodCode= "EVN" classCode="OBS"> <templateId root="216.840.1.616573.06.06.22.4.2 " /> <id nullFlavor="NA" /> <code codeSystem="local" code="BUN " displayName="BLOOD UREA NITROGEN" /> <statusCode code="completed" /> <effectiveTime value="" /> <value unit="mg/dL" xsi:type="PQ" value="17" /> <referenceRange> < observationRange> <text>7-20</text> </observationRange> </referenceRange> </observation> </component> < component> <observation moodCode="EVN" classCode="OBS"> < templateId root="16.840.1.948522.10.22.4.2" /> <id nullFlavor="NA " /> <code codeSystem="local" code="CREAT" displayName="CREATININE" /> <statusCode code="completed" /> <effectiveTime value= "" /> <value unit="mg/dL" xsi:type="PQ" value="0.7" /> <referenceRange> <observationRange> <text>0.6-1.0< /text> </observationRange> </referenceRange> </ observation> </component> <component> <observation moodCode= "EVN" classCode="OBS"> <templateId root="10.03.840.1.581562...4.2 " /> <id nullFlavor="NA" /> <code codeSystem="local" code= "HGBT" displayName="HEMOGLOBIN" /> <statusCode code="completed" /> <effectiveTime value="" /> <value unit="gm/dL" xsi: type="PQ" value="9.5" /> <interpretationCode codeSystem="local" code="* " /> <referenceRange> <observationRange> <text> 12.0-16.0</text> </observationRange> </referenceRange> </observation> </component> <component> <observation moodCode="EVN" classCode="OBS"> <templateId root= "10.03.840.1.593819.10.22.4.2" /> <id nullFlavor="NA" /> < code codeSystem="local" code="HCTT" displayName="HEMATOCRIT" /> < statusCode code="completed" /> <effectiveTime value="" /> <value unit="%" xsi:type="PQ" value="28.0" /> < interpretationCode codeSystem="local" code="*" /> <referenceRange> <observationRange> <text>37.0-47.0</text> </ observationRange> </referenceRange> </observation> </ component> <component> <observation moodCode="EVN" classCode="OBS"> <templateId root="216.840.1.076778.10..4.2" /> <id nullFlavor="NA" /> <code codeSystem="local" code="NA" displayName= "SODIUM" /> <statusCode code="completed" /> <effectiveTime value="" /> <value unit="mmol/L" xsi:type="PQ" value="136" /> <referenceRange> <observationRange> <text> 135-148</text> </observationRange> </referenceRange> </observation> </component> <component> <observation moodCode= "EVN" classCode="OBS"> <templateId root="10.03.840.1.956618.10..4.2 " /> <id nullFlavor="NA" /> <code codeSystem="local" code="CL " displayName="CHLORIDE" /> <statusCode code="completed" /> < effectiveTime value="" /> <value unit="mmol/L" xsi:type="PQ " value="95" /> <interpretationCode codeSystem="local" code="*" /> <referenceRange> <observationRange> <text>98-110</ text> </observationRange> </referenceRange> </ observation> </component> <component> <observation moodCode= "EVN" classCode="OBS"> <templateId root="16.840.1.942032.10..22.4.2 " /> <id nullFlavor="NA" /> <code codeSystem="local" code="CO2 " displayName="CARBON DIOXIDE" /> <statusCode code="completed" /> <effectiveTime value="[id number]" /> <value unit="mmol/L" xsi: type="PQ" value="24" /> <referenceRange> <observationRange> <text>21-32</text> </observationRange> </ referenceRange> </observation> </component> <component> <observation moodCode="EVN" classCode="OBS"> <templateId root= "16.840.1.545547.10..4.2" /> <id nullFlavor="NA" /> < code codeSystem="local" code="CAION" displayName="CALCIUM IONIZED" /> < statusCode code="completed" /> <effectiveTime value="173772686959" /> <value unit="mg/dL" xsi:type="PQ" value="TEST NOT PERFORMED" /> <referenceRange> <observationRange> <text>4.5-5.3</ text> </observationRange> </referenceRange> </ observation> </component> </organizer> </entry> <entry> <organizer moodCode="EVN" classCode="BATTERY"> <templateId root= "10.03.840.1.086938.06.06.22.4.1" /> <id nullFlavor="NA" /> <code codeSystem="local" code="iTROPI" displayName="TROPONIN I BEDSIDE" /> < statusCode code="completed" /> <component> <observation moodCode= "EVN" classCode="OBS"> <templateId root="10.03.840.1.836709.10..22.4.2 " /> <id nullFlavor="NA" /> <code codeSystem="local" code= "CMETHOD" displayName="METHOD" /> <statusCode code="completed" /> <effectiveTime value="" /> <value unit="" xsi:type="PQ " value="Bedside" /> <referenceRange> <observationRange> <text /> </observationRange> </referenceRange> </observation> </component> <component> <observation moodCode="EVN" classCode="OBS"> <templateId root= "10.03.840.1.315569.06.06.22.4.2" /> <id nullFlavor="NA" /> < code codeSystem="local" code="TROPI" displayName="TROPONIN I" /> < statusCode code="completed" /> <effectiveTime value="" /> <value unit="ng/mL" xsi:type="PQ" value="< 0.04" /> < referenceRange> <observationRange> <text>< 0.11</text > </observationRange> </referenceRange> </observation > </component> </organizer> </entry> <entry> <organizer moodCode= "EVN" classCode="BATTERY"> <templateId root="10.03.840.1.058837.06.06.22.4.1 " /> <id nullFlavor="NA" /> <code codeSystem="local" code="CBCD" displayName="CBC W/DIFF" /> <statusCode code="completed" /> <component > <observation moodCode="EVN" classCode="OBS"> <templateId root= "10.03.840.1.936849.06.06.22.4.2" /> <id nullFlavor="NA" /> < code codeSystem="local" code="BA#" displayName="BASOPHIL #" /> < statusCode code="completed" /> <effectiveTime value="[id number]" /> <value unit="k/cumm" xsi:type="PQ" value="0.1" /> < referenceRange> <observationRange> <text>0.0-0.2</text> </observationRange> </referenceRange> </observation > </component> <component> <observation moodCode="EVN" classCode="OBS"> <templateId root="216.840.1.476606.10...4.2" /> <id nullFlavor="NA" /> <code codeSystem="local" code="BA% " displayName="BASOPHIL %" /> <statusCode code="completed" /> <effectiveTime value="" /> <value unit="%" xsi: type="PQ" value="1" /> <referenceRange> <observationRange> <text>0-1</text> </observationRange> </ referenceRange> </observation> </component> <component> <observation moodCode="EVN" classCode="OBS"> <templateId root= "10.03.840.1.332308.10..4.2" /> <id nullFlavor="NA" /> < code codeSystem="local" code="EO#" displayName="EOSINOPHIL #" /> < statusCode code="completed" /> <effectiveTime value="" /> <value unit="k/cumm" xsi:type="PQ" value="0.1" /> < referenceRange> <observationRange> <text>0.1-0.5</text> </observationRange> </referenceRange> </observation > </component> <component> <observation moodCode="EVN" classCode="OBS"> <templateId root="16.840.1.090997.10.20.22.4.2" /> <id nullFlavor="NA" /> <code codeSystem="local" code="EO% " displayName="EOSINOPHIL %" /> <statusCode code="completed" /> <effectiveTime value="" /> <value unit="%" xsi: type="PQ" value="3" /> <referenceRange> <observationRange> <text>2-4</text> </observationRange> </ referenceRange> </observation> </component> <component> <observation moodCode="EVN" classCode="OBS"> <templateId root= "216.840.1.725072.10.20.22.4.2" /> <id nullFlavor="NA" /> < code codeSystem="local" code="GR#" displayName="GRANULOCYTE #" /> < statusCode code="completed" /> <effectiveTime value="" /> <value unit="k/cumm" xsi:type="PQ" value="1.9" /> < interpretationCode codeSystem="local" code="*" /> <referenceRange> <observationRange> <text>2.0-9.0</text> </ observationRange> </referenceRange> </observation> </ component> <component> <observation moodCode="EVN" classCode="OBS"> <templateId root="216.840.1.158706.10.20.22.4.2" /> <id nullFlavor="NA" /> <code codeSystem="local" code="GR%" displayName= "GRANULOCYTE %" /> <statusCode code="completed" /> < effectiveTime value="" /> <value unit="%" xsi:type="PQ " value="40" /> <interpretationCode codeSystem="local" code="*" /> <referenceRange> <observationRange> <text>50-75</ text> </observationRange> </referenceRange> </ observation> </component> <component> <observation moodCode= "EVN" classCode="OBS"> <templateId root="216.840.1.598724.10..4.2 " /> <id nullFlavor="NA" /> <code codeSystem="local" code="LY# " displayName="LYMPHOCYTE #" /> <statusCode code="completed" /> <effectiveTime value="" /> <value unit="k/cumm" xsi:type ="PQ" value="2.0" /> <referenceRange> <observationRange> <text>1.0-4.0</text> </observationRange> </ referenceRange> </observation> </component> <component> <observation moodCode="EVN" classCode="OBS"> <templateId root= "10.03.840.1.422855.06.06.22.4.2" /> <id nullFlavor="NA" /> < code codeSystem="local" code="LY%" displayName="LYMPHOCYTE %" /> <statusCode code="completed" /> <effectiveTime value="" /> <value unit="%" xsi:type="PQ" value="41" /> < interpretationCode codeSystem="local" code="*" /> <referenceRange> <observationRange> <text>20-30</text> </ observationRange> </referenceRange> </observation> </ component> <component> <observation moodCode="EVN" classCode="OBS"> <templateId root="10.03.840.1.732870.06.06.22.4.2" /> <id nullFlavor="NA" /> <code codeSystem="local" code="MCH" displayName= "MEAN CELL HGB" /> <statusCode code="completed" /> < effectiveTime value="" /> <value unit="pg" xsi:type="PQ" value="24.5" /> <interpretationCode codeSystem="local" code="*" /> <referenceRange> <observationRange> <text>27.0- 33.0</text> </observationRange> </referenceRange> </ observation> </component> <component> <observation moodCode= "EVN" classCode="OBS"> <templateId root="216.840.1.722196.102022.4.2 " /> <id nullFlavor="NA" /> <code codeSystem="local" code= "MCHC" displayName="MEAN CELL HGB CONCENTRATION" /> <statusCode code= "completed" /> <effectiveTime value="" /> <value unit="g/dL" xsi:type="PQ" value="31.1" /> <interpretationCode codeSystem="local" code="*" /> <referenceRange> < observationRange> <text>32.0-37.0</text> </ observationRange> </referenceRange> </observation> </ component> <component> <observation moodCode="EVN" classCode="OBS"> <templateId root="216.840.1.903499.10.20.22.4.2" /> <id nullFlavor="NA" /> <code codeSystem="local" code="MCV" displayName= "MEAN CELL VOLUME" /> <statusCode code="completed" /> < effectiveTime value="" /> <value unit="fl" xsi:type="PQ" value="78.7" /> <interpretationCode codeSystem="local" code="*" /> <referenceRange> <observationRange> <text>80.0- 100.0</text> </observationRange> </referenceRange> </ observation> </component> <component> <observation moodCode= "EVN" classCode="OBS"> <templateId root="10.03.840.1.060946.10.20.22.4.2 " /> <id nullFlavor="NA" /> <code codeSystem="local" code="MO# " displayName="MONOCYTE #" /> <statusCode code="completed" /> <effectiveTime value="" /> <value unit="k/cumm" xsi:type= "PQ" value="0.7" /> <referenceRange> <observationRange> <text>0.1-1.0</text> </observationRange> </ referenceRange> </observation> </component> <component> <observation moodCode="EVN" classCode="OBS"> <templateId root= "840.1.737676.1022.4.2" /> <id nullFlavor="NA" /> < code codeSystem="local" code="MO%" displayName="MONOCYTE %" /> <statusCode code="completed" /> <effectiveTime value="" /> <value unit="%" xsi:type="PQ" value="15" /> < interpretationCode codeSystem="local" code="*" /> <referenceRange> <observationRange> <text>4-6</text> </ observationRange> </referenceRange> </observation> </ component> <component> <observation moodCode="EVN" classCode="OBS"> <templateId root="840.1.220228.10.2022.4.2" /> <id nullFlavor="NA" /> <code codeSystem="local" code="MPVT" displayName= "MEAN PLATELET VOLUME" /> <statusCode code="completed" /> < effectiveTime value="" /> <value unit="fl" xsi:type="PQ" value="8.8" /> <referenceRange> <observationRange> <text>8.5-10.9</text> </observationRange> </ referenceRange> </observation> </component> <component> <observation moodCode="EVN" classCode="OBS"> <templateId root= "16.840.1.888217.10..22.4.2" /> <id nullFlavor="NA" /> < code codeSystem="local" code="RBC" displayName="RED BLOOD CELL" /> < statusCode code="completed" /> <effectiveTime value="" /> <value unit="m/cumm" xsi:type="PQ" value="3.43" /> < interpretationCode codeSystem="local" code="*" /> <referenceRange> <observationRange> <text>4.00-6.00</text> </ observationRange> </referenceRange> </observation> </ component> <component> <observation moodCode="EVN" classCode="OBS"> <templateId root="10.03.840.1.797215.06.06.22.4.2" /> <id nullFlavor="NA" /> <code codeSystem="local" code="RDW" displayName=" RED CELL DISTRIBUTION WIDTH" /> <statusCode code="completed" /> <effectiveTime value="" /> <value unit="%" xsi:type= "PQ" value="19.5" /> <interpretationCode codeSystem="local" code="*" / > <referenceRange> <observationRange> <text> 11.0-15.6</text> </observationRange> </referenceRange> </observation> </component> <component> <observation moodCode="EVN" classCode="OBS"> <templateId root= "10.03.840.1.902201..4.2" /> <id nullFlavor="NA" /> < code codeSystem="local" code="WBC" displayName="WHITE BLOOD CELL" /> < statusCode code="completed" /> <effectiveTime value="" /> <value unit="k/cumm" xsi:type="PQ" value="4.8" /> < interpretationCode codeSystem="local" code="*" /> <referenceRange> <observationRange> <text>5.0-10.0</text> </ observationRange> </referenceRange> </observation> </ component> <component> <observation moodCode="EVN" classCode="OBS"> <templateId root="216.840.1.624365.104.2" /> <id nullFlavor="NA" /> <code codeSystem="local" code="HGBT" displayName= "HEMOGLOBIN" /> <statusCode code="completed" /> < effectiveTime value="" /> <value unit="gm/dL" xsi:type="PQ " value="8.4" /> <interpretationCode codeSystem="local" code="*" /> <referenceRange> <observationRange> <text>12.0- 16.0</text> </observationRange> </referenceRange> </ observation> </component> <component> <observation moodCode= "EVN" classCode="OBS"> <templateId root="16.840.1.880956.10.4.2 " /> <id nullFlavor="NA" /> <code codeSystem="local" code= "HCTT" displayName="HEMATOCRIT" /> <statusCode code="completed" /> <effectiveTime value="" /> <value unit="%" xsi: type="PQ" value="27.0" /> <interpretationCode codeSystem="local" code= "*" /> <referenceRange> <observationRange> < text>37.0-47.0</text> </observationRange> </referenceRange> </observation> </component> <component> <observation moodCode="EVN" classCode="OBS"> <templateId root= "10.03.840.1.199428.10.22.4.2" /> <id nullFlavor="NA" /> < code codeSystem="local" code="PLTT" displayName="PLATELET COUNT" /> < statusCode code="completed" /> <effectiveTime value="" /> <value unit="k/cumm" xsi:type="PQ" value="387" /> < referenceRange> <observationRange> <text>150-400</text> </observationRange> </referenceRange> </observation > </component> </organizer> </entry> <entry> <organizer moodCode= "EVN" classCode="BATTERY"> <templateId root="10.03.840.1.779437.10...4.1 " /> <id nullFlavor="NA" /> <code codeSystem="local" code="MORPH" displayName="MORPHOLOGY" /> <statusCode code="completed" /> <component > <observation moodCode="EVN" classCode="OBS"> <templateId root= "10.03.840.1.350457.102022.4.2" /> <id nullFlavor="NA" /> < code codeSystem="local" code="RMORPH" displayName="RBC MORPH" /> < statusCode code="completed" /> <effectiveTime value="" /> <value unit="" xsi:type="PQ" value="NOTED" /> <referenceRange > <observationRange> <text /> </ observationRange> </referenceRange> </observation> </ component> </organizer> </entry> <entry> <organizer moodCode="EVN" classCode="BATTERY"> <templateId root="216.840.1.434146.10..22.4.1" /> <id nullFlavor="NA" /> <code codeSystem="local" code="LIVER" displayName="HEPATIC FUNCTION PANEL" /> <statusCode code="completed" /> <component> <observation moodCode="EVN" classCode="OBS"> < templateId root="216.840.1.403168.10..22.4.2" /> <id nullFlavor="NA " /> <code codeSystem="local" code="BILUC" displayName="BILI UNCONJUGATED" /> <statusCode code="completed" /> < effectiveTime value="" /> <value unit="mg/dL" xsi:type="PQ " value="0.0" /> <referenceRange> <observationRange> <text>0.0-0.7</text> </observationRange> </ referenceRange> </observation> </component> <component> <observation moodCode="EVN" classCode="OBS"> <templateId root= "216.840.1.730774.10..22.4.2" /> <id nullFlavor="NA" /> < code codeSystem="local" code="AST" displayName="AST/SGOT" /> < statusCode code="completed" /> <effectiveTime value="" /> <value unit="Units/L" xsi:type="PQ" value="17" /> < referenceRange> <observationRange> <text>10-37</text> </observationRange> </referenceRange> </observation> </component> <component> <observation moodCode="EVN" classCode= "OBS"> <templateId root="16.840.1.651763.22.4.2" /> < id nullFlavor="NA" /> <code codeSystem="local" code="ALT" displayName= "ALT/SGPT" /> <statusCode code="completed" /> <effectiveTime value="" /> <value unit="Units/L" xsi:type="PQ" value="22" /> <referenceRange> <observationRange> <text>& lt; 66</text> </observationRange> </referenceRange> < /observation> </component> <component> <observation moodCode= "EVN" classCode="OBS"> <templateId root="16.840.1.028209.06.06.22.4.2 " /> <id nullFlavor="NA" /> <code codeSystem="local" code="TP " displayName="TOTAL PROTEIN" /> <statusCode code="completed" /> <effectiveTime value="" /> <value unit="gm/dL" xsi:type ="PQ" value="6.4" /> <referenceRange> <observationRange> <text>6.4-8.2</text> </observationRange> </ referenceRange> </observation> </component> <component> <observation moodCode="EVN" classCode="OBS"> <templateId root= "16.840.1.325791.22.4.2" /> <id nullFlavor="NA" /> < code codeSystem="local" code="ALB" displayName="ALBUMIN" /> < statusCode code="completed" /> <effectiveTime value="" /> <value unit="gm/dL" xsi:type="PQ" value="2.9" /> < interpretationCode codeSystem="local" code="*" /> <referenceRange> <observationRange> <text>3.4-5.0</text> </ observationRange> </referenceRange> </observation> </ component> <component> <observation moodCode="EVN" classCode="OBS"> <templateId root="216.840.1.974953.10.4.2" /> <id nullFlavor="NA" /> <code codeSystem="local" code="BILTOT" displayName= "BILI TOTAL" /> <statusCode code="completed" /> < effectiveTime value="" /> <value unit="mg/dL" xsi:type="PQ " value="< 0.1" /> <referenceRange> <observationRange> <text>0.0-1.0</text> </observationRange> </ referenceRange> </observation> </component> <component> <observation moodCode="EVN" classCode="OBS"> <templateId root= "10.03.840.1.886039.06.06.22.4.2" /> <id nullFlavor="NA" /> < code codeSystem="local" code="ALKP" displayName="ALKALINE PHOSPHATASE TOTAL" /> <statusCode code="completed" /> <effectiveTime value= "" /> <value unit="IU/L" xsi:type="PQ" value="80" /> <referenceRange> <observationRange> <text>45-117</ text> </observationRange> </referenceRange> </ observation> </component> <component> <observation moodCode= "EVN" classCode="OBS"> <templateId root="16.840.1.178429.06.06.22.4.2 " /> <id nullFlavor="NA" /> <code codeSystem="local" code= "BILC" displayName="BILI CONJUGATED" /> <statusCode code="completed" / > <effectiveTime value="" /> <value unit="mg/dL" xsi:type="PQ" value="< 0.1" /> <referenceRange> < observationRange> <text>0.0-0.3</text> </ observationRange> </referenceRange> </observation> </ component> </organizer> </entry> <entry> <organizer moodCode="EVN" classCode="BATTERY"> <templateId root="16.840.1.281321.06.06.22.4.1" /> <id nullFlavor="NA" /> <code codeSystem="local" code="LIP" displayName ="LIPASE" /> <statusCode code="completed" /> <component> < observation moodCode="EVN" classCode="OBS"> <templateId root= "16.840.1.073280.06.06.22.4.2" /> <id nullFlavor="NA" /> < code codeSystem="local" code="LIP" displayName="LIPASE" /> <statusCode code="completed" /> <effectiveTime value="[id number]" /> < value unit="Units/L" xsi:type="PQ" value="92" /> <referenceRange> <observationRange> <text>73-393</text> </ observationRange> </referenceRange> </observation> </ component> </organizer> </entry> <entry> <organizer moodCode="EVN" classCode="BATTERY"> <templateId root="16.840.1.962274.10.4.1" /> <id nullFlavor="NA" /> <code codeSystem="local" code="ACTMN" displayName="ACETAMINOPHEN (TYLENOL)" /> <statusCode code="completed" /> <component> <observation moodCode="EVN" classCode="OBS"> < templateId root="10.03.840.1.001197...4.2" /> <id nullFlavor="NA " /> <code codeSystem="local" code="ACTMN" displayName="ACETAMINOPHEN ( TYLENOL)" /> <statusCode code="completed" /> <effectiveTime value="[id number]" /> <value unit="mcg/mL" xsi:type="PQ" value="< 2" /> <referenceRange> <observationRange> <text >10-30</text> </observationRange> </referenceRange> < /observation> </component> </organizer> </entry> <entry> < organizer moodCode="EVN" classCode="BATTERY"> <templateId root= "10.03.840.1.498334.10..4.1" /> <id nullFlavor="NA" /> <code codeSystem="local" code="SALI" displayName="SALICYLATE (ASPIRIN)" /> < statusCode code="completed" /> <component> <observation moodCode= "EVN" classCode="OBS"> <templateId root="16.840.1.165819.10...4.2 " /> <id nullFlavor="NA" /> <code codeSystem="local" code= "SALINUM" displayName="SALICYLATE" /> <statusCode code="completed" /> <effectiveTime value="[id number]" /> <value unit="mg/dL" xsi :type="PQ" value="< 2.8" /> <referenceRange> < observationRange> <text>2.8-29.0</text> </ observationRange> </referenceRange> </observation> </ component> </organizer> </entry> <entry> <organizer moodCode="EVN" classCode="BATTERY"> <templateId root="16.840.1.663370.06.06.22.4.1" /> <id nullFlavor="NA" /> <code codeSystem="local" code="DRUGAB" displayName="UR DRUGS OF ABUSE SCREEN" /> <statusCode code="completed" /> <component> <observation moodCode="EVN" classCode="OBS"> < templateId root="216.840.1.157586.10...4.2" /> <id nullFlavor="NA " /> <code codeSystem="local" code="AMPHU" displayName="UR AMPHETAMINES SCREEN" /> <statusCode code="completed" /> < effectiveTime value="767413277678" /> <value unit="" xsi:type="PQ" value="POS (>1000 ng/mL)" /> <referenceRange> < observationRange> <text>NEGATIVE</text> </ observationRange> </referenceRange> </observation> </ component> <component> <observation moodCode="EVN" classCode="OBS"> <templateId root="216.840.1.757957.10..4.2" /> <id nullFlavor="NA" /> <code codeSystem="local" code="BARBU" displayName= "UR BARBITURATE SCREEN" /> <statusCode code="completed" /> < effectiveTime value="944738396416" /> <value unit="" xsi:type="PQ" value="NEG (< 200 ng/mL)" /> <referenceRange> < observationRange> <text>NEGATIVE</text> </ observationRange> </referenceRange> </observation> </ component> <component> <observation moodCode="EVN" classCode="OBS"> <templateId root="216.840.1.293099.10...4.2" /> <id nullFlavor="NA" /> <code codeSystem="local" code="DAUCOMMENT" displayName="DRUGS OF ABUSE SCREEN COMMENT" /> <statusCode code= "completed" /> <effectiveTime value="154591949915" /> <value unit="" xsi:type="PQ" value="" /> <referenceRange> < observationRange> <text /> </observationRange> </referenceRange> </observation> </component> <component> <observation moodCode="EVN" classCode="OBS"> <templateId root= "216.840.1.446056.10...4.2" /> <id nullFlavor="NA" /> < code codeSystem="local" code="OPIU" displayName="UR OPIATES SCREEN" /> <statusCode code="completed" /> <effectiveTime value="700148390369" /> <value unit="" xsi:type="PQ" value="NEG (< 300 ng/mL)" /> <referenceRange> <observationRange> <text>NEGATIVE</ text> </observationRange> </referenceRange> </ observation> </component> <component> <observation moodCode= "EVN" classCode="OBS"> <templateId root="216.840.1.806741.10...4.2 " /> <id nullFlavor="NA" /> <code codeSystem="local" code= "PCPU" displayName="UR PHENCYCLIDINE (PCP) SCREEN" /> <statusCode code= "completed" /> <effectiveTime value="932200961718" /> <value unit="" xsi:type="PQ" value="NEG (< 25 ng/mL)" /> <referenceRange > <observationRange> <text>NEGATIVE</text> </ observationRange> </referenceRange> </observation> </ component> <component> <observation moodCode="EVN" classCode="OBS"> <templateId root="216.840.1.693873.06.06.22.4.2" /> <id nullFlavor="NA" /> <code codeSystem="local" code="THCU" displayName=" UR CANNABINOIDS (THC) SCREEN" /> <statusCode code="completed" /> <effectiveTime value="" /> <value unit="" xsi:type="PQ " value="NEG (< 50 ng/mL)" /> <referenceRange> < observationRange> <text>NEGATIVE</text> </ observationRange> </referenceRange> </observation> </ component> <component> <observation moodCode="EVN" classCode="OBS"> <templateId root="2.16.840.1.028878.06.06.22.4.2" /> <id nullFlavor="NA" /> <code codeSystem="local" code="COCAU" displayName= "UR COCAINE METABOLITE SCREEN" /> <statusCode code="completed" /> <effectiveTime value="653210383604" /> <value unit="" xsi:type="PQ " value="NEG (< 300 ng/mL)" /> <referenceRange> < observationRange> <text>NEGATIVE</text> </ observationRange> </referenceRange> </observation> </ component> <component> <observation moodCode="EVN" classCode="OBS"> <templateId root="2.16.840.1.573450.06.06.22.4.2" /> <id nullFlavor="NA" /> <code codeSystem="local" code="METHU" displayName= "UR METHADONE SCREEN" /> <statusCode code="completed" /> < effectiveTime value="" /> <value unit="" xsi:type="PQ" value="NEG (< 300 ng/mL)" /> <referenceRange> < observationRange> <text>NEGATIVE</text> </ observationRange> </referenceRange> </observation> </ component> <component> <observation moodCode="EVN" classCode="OBS"> <templateId root="2.16.840.1.477660.10..22.4.2" /> <id nullFlavor="NA" /> <code codeSystem="local" code="BENZU" displayName= "UR BENZODIAZEPINE SCREEN" /> <statusCode code="completed" /> <effectiveTime value="947275922398" /> <value unit="" xsi:type="PQ" value="NEG (< 200 ng/mL)" /> <referenceRange> < observationRange> <text>NEGATIVE</text> </ observationRange> </referenceRange> </observation> </ component> </organizer> </entry> <entry> <organizer moodCode="EVN" classCode="BATTERY"> <templateId root="2.16.840.1.846905.10..22.4.1" /> <id nullFlavor="NA" /> <code codeSystem="local" code="UA" displayName= "URINALYSIS, ROUTINE" /> <statusCode code="completed" /> <component> <observation moodCode="EVN" classCode="OBS"> <templateId root= "2.16.840.1.461562.10.20.22.4.2" /> <id nullFlavor="NA" /> < code codeSystem="local" code="LEUESU" displayName="UA LEUKOCYTE ESTERASE DIPSTICK" /> <statusCode code="completed" /> <effectiveTime value="035510537528" /> <value unit="" xsi:type="PQ" value="NEGATIVE" / > <referenceRange> <observationRange> <text> NEGATIVE</text> </observationRange> </referenceRange> </observation> </component> <component> <observation moodCode ="EVN" classCode="OBS"> <templateId root= "216.840.1.710887.10.22.4.2" /> <id nullFlavor="NA" /> < code codeSystem="local" code="NITRIU" displayName="UA NITRITE DIPSTICK" /> <statusCode code="completed" /> <effectiveTime value=" " /> <value unit="" xsi:type="PQ" value="NEGATIVE" /> < referenceRange> <observationRange> <text>NEGATIVE</text > </observationRange> </referenceRange> </observation > </component> <component> <observation moodCode="EVN" classCode="OBS"> <templateId root="216.840.1.668965.10..4.2" /> <id nullFlavor="NA" /> <code codeSystem="local" code="PROTEIU " displayName="UA PROTEIN DIPSTICK" /> <statusCode code="completed" /> <effectiveTime value="" /> <value unit="" xsi: type="PQ" value="NEGATIVE" /> <referenceRange> < observationRange> <text>NEGATIVE</text> </ observationRange> </referenceRange> </observation> </ component> <component> <observation moodCode="EVN" classCode="OBS"> <templateId root="16.840.1.767665.06.06.22.4.2" /> <id nullFlavor="NA" /> <code codeSystem="local" code="DGLUU" displayName= "UA GLUCOSE DIPSTICK" /> <statusCode code="completed" /> < effectiveTime value="" /> <value unit="" xsi:type="PQ" value="NEGATIVE" /> <referenceRange> <observationRange> <text>NEGATIVE</text> </observationRange> </ referenceRange> </observation> </component> <component> <observation moodCode="EVN" classCode="OBS"> <templateId root= "216.840.1.073917.10..4.2" /> <id nullFlavor="NA" /> < code codeSystem="local" code="KETONU" displayName="UA KETONE DIPSTICK" /> <statusCode code="completed" /> <effectiveTime value=" " /> <value unit="" xsi:type="PQ" value="NEGATIVE" /> < referenceRange> <observationRange> <text>NEGATIVE</text > </observationRange> </referenceRange> </observation > </component> <component> <observation moodCode="EVN" classCode="OBS"> <templateId root="216.840.1.534566...4.2" /> <id nullFlavor="NA" /> <code codeSystem="local" code="UROBILU " displayName="UA UROBILINOGEN DIPSTICK" /> <statusCode code="completed " /> <effectiveTime value="" /> <value unit="" xsi :type="PQ" value="NORMAL" /> <referenceRange> < observationRange> <text>NORMAL</text> </observationRange > </referenceRange> </observation> </component> < component> <observation moodCode="EVN" classCode="OBS"> < templateId root="16.840.1.916047.10..4.2" /> <id nullFlavor="NA " /> <code codeSystem="local" code="BILU" displayName="UA BILIRUBIN DIPSTICK" /> <statusCode code="completed" /> <effectiveTime value="" /> <value unit="" xsi:type="PQ" value="NEGATIVE" / > <referenceRange> <observationRange> <text> NEGATIVE</text> </observationRange> </referenceRange> </observation> </component> <component> <observation moodCode ="EVN" classCode="OBS"> <templateId root= "216.840.1.235197.10.4.2" /> <id nullFlavor="NA" /> < code codeSystem="local" code="ADAM" displayName="UA BLOOD DIPSTICK" /> < statusCode code="completed" /> <effectiveTime value="" /> <value unit="" xsi:type="PQ" value="NEGATIVE" /> < referenceRange> <observationRange> <text>NEGATIVE</text > </observationRange> </referenceRange> </observation > </component> <component> <observation moodCode="EVN" classCode="OBS"> <templateId root="216.840.1.585314.06.06.22.4.2" /> <id nullFlavor="NA" /> <code codeSystem="local" code="SPGRU" displayName="UA SPECIFIC GRAVITY" /> <statusCode code="completed" /> <effectiveTime value="" /> <value unit="" xsi:type= "PQ" value="1.015" /> <referenceRange> <observationRange> <text>1.015-1.025</text> </observationRange> </ referenceRange> </observation> </component> <component> <observation moodCode="EVN" classCode="OBS"> <templateId root= "216.840.1.766336.06.06.22.4.2" /> <id nullFlavor="NA" /> < code codeSystem="local" code="INGRID" displayName="UR PH" /> <statusCode code="completed" /> <effectiveTime value="" /> < value unit="" xsi:type="PQ" value="6.0" /> <referenceRange> <observationRange> <text>5.0-7.0</text> </ observationRange> </referenceRange> </observation> </ component> </organizer> </entry> <entry> <organizer moodCode="EVN" classCode="BATTERY"> <templateId root="10.03.840.1.097724.06.06.22.4.1" /> <id nullFlavor="NA" /> <code codeSystem="local" code="ALC" displayName ="ALCOHOL (ETHANOL) SERUM" /> <statusCode code="completed" /> < component> <observation moodCode="EVN" classCode="OBS"> < templateId root="16.840.1.225660.10..4.2" /> <id nullFlavor="NA " /> <code codeSystem="local" code="ALC" displayName="ALCOHOL (ETHANOL ) SERUM" /> <statusCode code="completed" /> <effectiveTime value="390696058947" /> <value unit="mg/dL" xsi:type="PQ" value="< 10" /> <referenceRange> <observationRange> < text> < 10</text> </observationRange> </referenceRange> </observation> </component> </organizer> </entry> <entry> < organizer moodCode="EVN" classCode="BATTERY"> <templateId root= "16.840.1.643696.10..4.1" /> <id nullFlavor="NA" /> <code codeSystem="local" code="LACTG" displayName="LACTIC ACID" /> <statusCode code="completed" /> <component> <observation moodCode="EVN" classCode="OBS"> <templateId root="10.03.840.1.168934.10.20.22.4.2" /> <id nullFlavor="NA" /> <code codeSystem="local" code="LACT" displayName="LACTIC ACID" /> <statusCode code="completed" /> < effectiveTime value="344846448757" /> <value unit="mmol/L" xsi:type="PQ " value="0.6" /> <referenceRange> <observationRange> <text>0.5-2.0</text> </observationRange> </ referenceRange> </observation> </component> </organizer> </entry > <entry> <organizer moodCode="EVN" classCode="BATTERY"> <templateId root="2.16.840.1.012057.10.20.22.4.1" /> <id nullFlavor="NA" /> <code codeSystem="local" code="BC" displayName="BLOOD CULTURE" /> <statusCode code="completed" /> <component> <observation moodCode="EVN" classCode="OBS"> <templateId root="2.16.840.1.300288.10.20.22.4.2" /> <id nullFlavor="NA" /> <code codeSystem="local" code="MB" displayName="Microbiology" /> <statusCode code="completed" /> <effectiveTime value="147750244320" /> <value xsi:type="ST" value="<pre ><b>BLOOD CULTURE</b> See BelowIs this a Possible Sepsis/Sepsis patient? NoIs this the first BLOOD CULTURE for this hospital visit? YesBLOOD CULTURE(F) Cosme Date/Time: 04/22/2017 20:34 Irvin Date /Time: 04/28/2017 06:42SOURCE: BLOODSPEC DESC: [id number] [facility] [facility] [place] [address]</pre>" /> < referenceRange> <observationRange> <text /> < /observationRange> </referenceRange> </observation> </ component> </organizer> </entry> <entry> <organizer moodCode="EVN" classCode="BATTERY"> <templateId root="2.16.840.1.354999.10..22.4.1" /> <id nullFlavor="NA" /> <code codeSystem="local" code="BC" displayName= "BLOOD CULTURE" /> <statusCode code="completed" /> <component> <observation moodCode="EVN" classCode="OBS"> <templateId root= "2.16.840.1.074978.10...4.2" /> <id nullFlavor="NA" /> < code codeSystem="local" code="MB" displayName="Microbiology" /> < statusCode code="completed" /> <effectiveTime value="544458133447" /> <value xsi:type="ST" value="<pre><b>BLOOD CULTURE</b> See BelowIs this a Possible Sepsis/Sepsis patient? NoIs this the first BLOOD CULTURE for this hospital visit? YesBLOOD CULTURE(F) Cosme Date/Time: 04/22/2017 20: 34 Irvin Date/Time: 04/28/2017 06:43SOURCE: BLOODSPEC DESC: [id number] [facility]TH [facility] [place] [address]</pre>" /> <referenceRange> < observationRange> <text /> </observationRange> </referenceRange> </observation> </component> </organizer> </ entry> <entry> <organizer moodCode="EVN" classCode="BATTERY"> < templateId root="2.16.840.1.854763.10..22.4.1" /> <id nullFlavor="NA" /> <code codeSystem="local" code="KBT335" displayName="Ferritin" /> < statusCode code="completed" /> <component> <observation moodCode= "EVN" classCode="OBS"> <templateId root="2.16.840.1.344515.10.20.22.4.2 " /> <id nullFlavor="NA" /> <code codeSystem="local" code= "Des429" displayName="Ferritin" /> <statusCode code="completed" /> <effectiveTime value="692541119729" /> <value unit="ng/mL" xsi: type="PQ" value="15.93" /> <referenceRange> < observationRange> <text>4.63-204.00</text> </ observationRange> </referenceRange> </observation> </ component> </organizer> </entry> <entry> <organizer moodCode="EVN" classCode="BATTERY"> <templateId root="2.16.840.1.891524.10.20.22.4.1" /> <id nullFlavor="NA" /> <code codeSystem="local" code="630369" displayName="Reticulocyte Count" /> <statusCode code="completed" /> < component> <observation moodCode="EVN" classCode="OBS"> < templateId root="2.16.840.1.335604.10.20.22.4.2" /> <id nullFlavor="NA " /> <code codeSystem="local" code="813880" displayName="Reticulocyte Count" /> <statusCode code="completed" /> <effectiveTime value ="627928821386" /> <value unit="%" xsi:type="PQ" value="0.9" /> <referenceRange> <observationRange> <text>0.6-2.6 </text> </observationRange> </referenceRange> </ observation> </component> </organizer> </entry> <entry> <organizer moodCode="EVN" classCode="BATTERY"> <templateId root= "16.840.1.169821.10.4.1" /> <id nullFlavor="NA" /> <code codeSystem="local" code="VII825" displayName="Peripheral Smear" /> < statusCode code="completed" /> <component> <observation moodCode= "EVN" classCode="OBS"> <templateId root="840.1.323694.06.06.224.2 " /> <id nullFlavor="NA" /> <code codeSystem="local" code= "[id number]" displayName="Peripheral smear" /> <statusCode code= "completed" /> <effectiveTime value="967040084101" /> <value unit="" xsi:type="PQ" value="Sent to [facility] for review" /> < referenceRange> <observationRange> <text /> < /observationRange> </referenceRange> </observation> </ component> </organizer> </entry> <entry> <organizer moodCode="EVN" classCode="BATTERY"> <templateId root="840.1.627782.06.06.224.1" /> <id nullFlavor="NA" /> <code codeSystem="local" code="852908" displayName="Reticulocyte Count" /> <statusCode code="completed" /> < component> <observation moodCode="EVN" classCode="OBS"> < templateId root="10.03.840.1.511969.10.4.2" /> <id nullFlavor="NA " /> <code codeSystem="local" code="088807" displayName="Reticulocyte Count" /> <statusCode code="completed" /> <effectiveTime value ="965098781398" /> <value unit="%" xsi:type="PQ" value="0.9" /> <referenceRange> <observationRange> <text>0.6-2.6 </text> </observationRange> </referenceRange> </ observation> </component> </organizer> </entry> <entry> <organizer moodCode="EVN" classCode="BATTERY"> <templateId root= "216.840.1.022006.10..22.4.1" /> <id nullFlavor="NA" /> <code codeSystem="local" code="99403-2" displayName="Complete blood count (CBC) with automated white blood cell (WBC) differential" /> <statusCode code= "completed" /> <component> <observation moodCode="EVN" classCode= "OBS"> <templateId root="216.840.1.797818.10..22.4.2" /> < id nullFlavor="NA" /> <code codeSystem="local" code="6690-2" displayName="Blood leukocytes automated count (number/volume)" /> < statusCode code="completed" /> <effectiveTime value="" /> <value unit="10*3/uL" xsi:type="PQ" value="17.6" /> < interpretationCode codeSystem="local" code="" /> <referenceRange> <observationRange> <text>4.3-11.0</text> </ observationRange> </referenceRange> </observation> </ component> <component> <observation moodCode="EVN" classCode="OBS"> <templateId root="10.03.840.1.594355.10...4.2" /> <id nullFlavor="NA" /> <code codeSystem="local" code="789-8" displayName= "Blood erythrocytes automated count (number/volume)" /> <statusCode code="completed" /> <effectiveTime value="908725568798" /> < value unit="10*6/uL" xsi:type="PQ" value="4.06" /> <interpretationCode codeSystem="local" code="" /> <referenceRange> < observationRange> <text>4.35-5.85</text> </ observationRange> </referenceRange> </observation> </ component> <component> <observation moodCode="EVN" classCode="OBS"> <templateId root="2.16.840.1.920895.10.20.22.4.2" /> <id nullFlavor="NA" /> <code codeSystem="local" code="79191-5" displayName= "Venous blood hemoglobin measurement (mass/volume)" /> <statusCode code ="completed" /> <effectiveTime value="015188776063" /> <value unit="g/dL" xsi:type="PQ" value="10.0" /> <interpretationCode codeSystem="local" code="" /> <referenceRange> < observationRange> <text>11.5-16.0</text> </ observationRange> </referenceRange> </observation> </ component> <component> <observation moodCode="EVN" classCode="OBS"> <templateId root="2.16.840.1.581005.10.20.22.4.2" /> <id nullFlavor="NA" /> <code codeSystem="local" code="77376-7" displayName= "Blood hematocrit (volume fraction)" /> <statusCode code="completed" / > <effectiveTime value="988549176972" /> <value unit="%" xsi:type="PQ" value="30" /> <interpretationCode codeSystem="local" code ="" /> <referenceRange> <observationRange> < text>35-52</text> </observationRange> </referenceRange> </observation> </component> <component> <observation moodCode="EVN" classCode="OBS"> <templateId root= "2.16.840.1.331961.10..22.4.2" /> <id nullFlavor="NA" /> < code codeSystem="local" code="787-2" displayName="Automated erythrocyte mean corpuscular volume" /> <statusCode code="completed" /> < effectiveTime value="" /> <value unit="[foz_us]" xsi:type= "PQ" value="74" /> <interpretationCode codeSystem="local" code="" /> <referenceRange> <observationRange> <text>80- 99</text> </observationRange> </referenceRange> </ observation> </component> <component> <observation moodCode= "EVN" classCode="OBS"> <templateId root="216.840.1.608441.10...4.2 " /> <id nullFlavor="NA" /> <code codeSystem="local" code="785 -6" displayName="Automated erythrocyte mean corpuscular hemoglobin (mass per erythrocyte)" /> <statusCode code="completed" /> < effectiveTime value="" /> <value unit="pg" xsi:type="PQ" value="25" /> <referenceRange> <observationRange> <text>25-34</text> </observationRange> </referenceRange > </observation> </component> <component> <observation moodCode="EVN" classCode="OBS"> <templateId root= "2.16.840.1.159250.10..22.4.2" /> <id nullFlavor="NA" /> < code codeSystem="local" code="786-4" displayName="Automated erythrocyte mean corpuscular hemoglobin concentration measurement (mass/volume)" /> < statusCode code="completed" /> <effectiveTime value="" /> <value unit="g/dL" xsi:type="PQ" value="33" /> <referenceRange > <observationRange> <text>32-36</text> </ observationRange> </referenceRange> </observation> </ component> <component> <observation moodCode="EVN" classCode="OBS"> <templateId root="2.16.840.1.772462.10..22.4.2" /> <id nullFlavor="NA" /> <code codeSystem="local" code="788-0" displayName= "Automated erythrocyte distribution width ratio" /> <statusCode code= "completed" /> <effectiveTime value="210847813238" /> <value unit="%" xsi:type="PQ" value="17.5" /> <interpretationCode codeSystem="local" code="" /> <referenceRange> < observationRange> <text>10.0-14.5</text> </ observationRange> </referenceRange> </observation> </ component> <component> <observation moodCode="EVN" classCode="OBS"> <templateId root="2.16.840.1.171938.10.20.22.4.2" /> <id nullFlavor="NA" /> <code codeSystem="local" code="777-3" displayName= "Automated blood platelet count (count/volume)" /> <statusCode code= "completed" /> <effectiveTime value="" /> <value unit="10*3/uL" xsi:type="PQ" value="526" /> <interpretationCode codeSystem="local" code="" /> <referenceRange> < observationRange> <text>130-400</text> </ observationRange> </referenceRange> </observation> </ component> <component> <observation moodCode="EVN" classCode="OBS"> <templateId root="2.16.840.1.851826.10..22.4.2" /> <id nullFlavor="NA" /> <code codeSystem="local" code="95436-5" displayName= "Automated blood platelet mean volume measurement" /> <statusCode code= "completed" /> <effectiveTime value="" /> <value unit="[[facility]]" xsi:type="PQ" value="9.2" /> <referenceRange> <observationRange> <text>7.4-10.4</text> </ observationRange> </referenceRange> </observation> </ component> <component> <observation moodCode="EVN" classCode="OBS"> <templateId root="216.840.1.445727..22.4.2" /> <id nullFlavor="NA" /> <code codeSystem="local" code="770-8" displayName= "Automated blood neutrophils/100 leukocytes" /> <statusCode code= "completed" /> <effectiveTime value="" /> <value unit="%" xsi:type="PQ" value="76" /> <interpretationCode codeSystem ="local" code="" /> <referenceRange> <observationRange> <text>42-75</text> </observationRange> </ referenceRange> </observation> </component> <component> <observation moodCode="EVN" classCode="OBS"> <templateId root= "2.16.840.1.462253.10..22.4.2" /> <id nullFlavor="NA" /> < code codeSystem="local" code="736-9" displayName="Automated blood lymphocytes/ 100 leukocytes" /> <statusCode code="completed" /> < effectiveTime value="815668659188" /> <value unit="%" xsi:type="PQ " value="8" /> <interpretationCode codeSystem="local" code="" /> <referenceRange> <observationRange> <text>12-44</ text> </observationRange> </referenceRange> </ observation> </component> <component> <observation moodCode= "EVN" classCode="OBS"> <templateId root="2.16.840.1.103827.10.20.22.4.2 " /> <id nullFlavor="NA" /> <code codeSystem="local" code= "24436-5" displayName="Blood monocytes/100 leukocytes" /> <statusCode code="completed" /> <effectiveTime value="417257263766" /> < value unit="%" xsi:type="PQ" value="16" /> <interpretationCode codeSystem="local" code="" /> <referenceRange> < observationRange> <text>0-12</text> </observationRange> </referenceRange> </observation> </component> < component> <observation moodCode="EVN" classCode="OBS"> < templateId root="2.16.840.1.052447.10.20.22.4.2" /> <id nullFlavor="NA " /> <code codeSystem="local" code="713-8" displayName="Automated blood eosinophils/100 leukocytes" /> <statusCode code="completed" /> <effectiveTime value="061520922471" /> <value unit="%" xsi: type="PQ" value="0" /> <referenceRange> <observationRange> <text>0-10</text> </observationRange> </ referenceRange> </observation> </component> <component> <observation moodCode="EVN" classCode="OBS"> <templateId root= "2.16.840.1.821489.10.20.22.4.2" /> <id nullFlavor="NA" /> < code codeSystem="local" code="706-2" displayName="Automated blood basophils/100 leukocytes" /> <statusCode code="completed" /> <effectiveTime value="" /> <value unit="%" xsi:type="PQ" value="0" /> <referenceRange> <observationRange> <text>0-10 </text> </observationRange> </referenceRange> </ observation> </component> <component> <observation moodCode= "EVN" classCode="OBS"> <templateId root="10.03.840.1.333567.10.20.22.4.2 " /> <id nullFlavor="NA" /> <code codeSystem="local" code="751 -8" displayName="Blood neutrophils automated count (number/volume)" /> <statusCode code="completed" /> <effectiveTime value="" /> <value unit="10*3" xsi:type="PQ" value="13.4" /> < interpretationCode codeSystem="local" code="" /> <referenceRange> <observationRange> <text>1.8-7.8</text> </ observationRange> </referenceRange> </observation> </ component> <component> <observation moodCode="EVN" classCode="OBS"> <templateId root="16.840.1.931931.10.20.22.4.2" /> <id nullFlavor="NA" /> <code codeSystem="local" code="731-0" displayName= "Blood lymphocytes automated count (number/volume)" /> <statusCode code ="completed" /> <effectiveTime value="415796668349" /> <value unit="10*3" xsi:type="PQ" value="1.3" /> <referenceRange> < observationRange> <text>1.0-4.0</text> </ observationRange> </referenceRange> </observation> </ component> <component> <observation moodCode="EVN" classCode="OBS"> <templateId root="216.840.1.633513.10..4.2" /> <id nullFlavor="NA" /> <code codeSystem="local" code="742-7" displayName= "Blood monocytes automated count (number/volume)" /> <statusCode code= "completed" /> <effectiveTime value="038170299463" /> <value unit="10*3" xsi:type="PQ" value="2.8" /> <interpretationCode codeSystem ="local" code="" /> <referenceRange> <observationRange> <text>0.0-1.0</text> </observationRange> </ referenceRange> </observation> </component> <component> <observation moodCode="EVN" classCode="OBS"> <templateId root= "10.03.840.1.829550.06.06.22.4.2" /> <id nullFlavor="NA" /> < code codeSystem="local" code="711-2" displayName="Automated eosinophil count" / > <statusCode code="completed" /> <effectiveTime value= "806882902370" /> <value unit="10*3/uL" xsi:type="PQ" value="0.0" /> <referenceRange> <observationRange> <text>0.0- 0.3</text> </observationRange> </referenceRange> </ observation> </component> <component> <observation moodCode= "EVN" classCode="OBS"> <templateId root="216.840.1.757177.06.06.22.4.2 " /> <id nullFlavor="NA" /> <code codeSystem="local" code="704 -7" displayName="Automated blood basophil count (count/volume)" /> < statusCode code="completed" /> <effectiveTime value="217057966154" /> <value unit="10*3/uL" xsi:type="PQ" value="0.0" /> < referenceRange> <observationRange> <text>0.0-0.1</text> </observationRange> </referenceRange> </observation > </component> </organizer> </entry> <entry> <organizer moodCode= "EVN" classCode="BATTERY"> <templateId root="216.840.1.032728.10.4.1 " /> <id nullFlavor="NA" /> <code codeSystem="local" code="05140-8" displayName="Comprehensive metabolic panel" /> <statusCode code="completed " /> <component> <observation moodCode="EVN" classCode="OBS"> <templateId root="216.840.1.044203.10...4.2" /> <id nullFlavor ="NA" /> <code codeSystem="local" code="2951-2" displayName="Serum or plasma sodium measurement (moles/volume)" /> <statusCode code= "completed" /> <effectiveTime value="339897967219" /> <value unit="mmol/L" xsi:type="PQ" value="135" /> <referenceRange> <observationRange> <text>135-145</text> </ observationRange> </referenceRange> </observation> </ component> <component> <observation moodCode="EVN" classCode="OBS"> <templateId root="2.16.840.1.422028.10..4.2" /> <id nullFlavor="NA" /> <code codeSystem="local" code="28210-18" displayName= "Serum or plasma potassium measurement (moles/volume)" /> <statusCode code="completed" /> <effectiveTime value="" /> < value unit="mmol/L" xsi:type="PQ" value="4.6" /> <referenceRange> <observationRange> <text>3.6-5.0</text> </ observationRange> </referenceRange> </observation> </ component> <component> <observation moodCode="EVN" classCode="OBS"> <templateId root="2.16.840.1.130688.10..22.4.2" /> <id nullFlavor="NA" /> <code codeSystem="local" code="" displayName= "Serum or plasma chloride measurement (moles/volume)" /> <statusCode code="completed" /> <effectiveTime value="043641131683" /> < value unit="mmol/L" xsi:type="PQ" value="103" /> <referenceRange> <observationRange> <text>98-107</text> </ observationRange> </referenceRange> </observation> </ component> <component> <observation moodCode="EVN" classCode="OBS"> <templateId root="2.16.840.1.764527.10..22.4.2" /> <id nullFlavor="NA" /> <code codeSystem="local" code="2028-04" displayName= "Carbon dioxide" /> <statusCode code="completed" /> < effectiveTime value="" /> <value unit="mmol/L" xsi:type="PQ " value="15" /> <interpretationCode codeSystem="local" code="" /> <referenceRange> <observationRange> <text>21-32</ text> </observationRange> </referenceRange> </ observation> </component> <component> <observation moodCode= "EVN" classCode="OBS"> <templateId root="216.840.1.579611.10..22.4.2 " /> <id nullFlavor="NA" /> <code codeSystem="local" code= "38458-2" displayName="Serum or plasma anion gap determination (moles/volume)" / > <statusCode code="completed" /> <effectiveTime value= "858751731496" /> <value unit="mmol/L" xsi:type="PQ" value="17" /> <interpretationCode codeSystem="local" code="" /> < referenceRange> <observationRange> <text>5-14</text> </observationRange> </referenceRange> </observation> </component> <component> <observation moodCode="EVN" classCode= "OBS"> <templateId root="16.840.1.649312.10..22.4.2" /> < id nullFlavor="NA" /> <code codeSystem="local" code="3094-0" displayName="Serum or plasma urea nitrogen measurement (mass/volume)" /> <statusCode code="completed" /> <effectiveTime value="004441203201" /> <value unit="mg/dL" xsi:type="PQ" value="50" /> < interpretationCode codeSystem="local" code="" /> <referenceRange> <observationRange> <text>7-18</text> </ observationRange> </referenceRange> </observation> </ component> <component> <observation moodCode="EVN" classCode="OBS"> <templateId root="216.840.1.473701.10.20.22.4.2" /> <id nullFlavor="NA" /> <code codeSystem="local" code="2160-0" displayName= "Serum or plasma creatinine measurement (mass/volume)" /> <statusCode code="completed" /> <effectiveTime value="" /> < value unit="mg/dL" xsi:type="PQ" value="4.85" /> <interpretationCode codeSystem="local" code="" /> <referenceRange> < observationRange> <text>0.60-1.30</text> </ observationRange> </referenceRange> </observation> </ component> <component> <observation moodCode="EVN" classCode="OBS"> <templateId root="2.16.840.1.791483.10..22.4.2" /> <id nullFlavor="NA" /> <code codeSystem="local" code="3097-3" displayName= "Serum or plasma urea nitrogen/creatinine mass ratio" /> <statusCode code="completed" /> <effectiveTime value="067776734690" /> < value unit="" xsi:type="PQ" value="10" /> <referenceRange> < observationRange> <text>NRG</text> </observationRange> </referenceRange> </observation> </component> < component> <observation moodCode="EVN" classCode="OBS"> < templateId root="2.16.840.1.454018.10.20.22.4.2" /> <id nullFlavor="NA " /> <code codeSystem="local" code="47290-1" displayName="Serum or plasma creatinine measurement with calculation of estimated glomerular filtration rate" /> <statusCode code="completed" /> < effectiveTime value="" /> <value unit="" xsi:type="PQ" value="9" /> <referenceRange> <observationRange> <text>NRG</text> </observationRange> </referenceRange> </observation> </component> <component> <observation moodCode="EVN" classCode="OBS"> <templateId root= "2.16.840.1.495026.10.20.22.4.2" /> <id nullFlavor="NA" /> < code codeSystem="local" code="2345-7" displayName="Serum or plasma glucose measurement (mass/volume)" /> <statusCode code="completed" /> <effectiveTime value="" /> <value unit="mg/dL" xsi:type="PQ " value="111" /> <interpretationCode codeSystem="local" code="" /> <referenceRange> <observationRange> <text>70-105 </text> </observationRange> </referenceRange> </ observation> </component> <component> <observation moodCode= "EVN" classCode="OBS"> <templateId root="216.840.1.833896.10..22.4.2 " /> <id nullFlavor="NA" /> <code codeSystem="local" code= "18849-3" displayName="Serum or plasma calcium measurement (mass/volume)" /> <statusCode code="completed" /> <effectiveTime value= "384537488542" /> <value unit="mg/dL" xsi:type="PQ" value="9.8" /> <referenceRange> <observationRange> <text>8.5-10.1 </text> </observationRange> </referenceRange> </ observation> </component> <component> <observation moodCode= "EVN" classCode="OBS"> <templateId root="2.16.840.1.654342.10..22.4.2 " /> <id nullFlavor="NA" /> <code codeSystem="local" code= "1974-09" displayName="Serum or plasma total bilirubin measurement (mass/volume) " /> <statusCode code="completed" /> <effectiveTime value= "366416806539" /> <value unit="mg/dL" xsi:type="PQ" value="0.5" /> <referenceRange> <observationRange> <text>0.1-1.0< /text> </observationRange> </referenceRange> </ observation> </component> <component> <observation moodCode= "EVN" classCode="OBS"> <templateId root="216.840.1.089809.10.20.22.4.2 " /> <id nullFlavor="NA" /> <code codeSystem="local" code= "6768-6" displayName="Serum or plasma alkaline phosphatase measurement ( enzymatic activity/volume)" /> <statusCode code="completed" /> <effectiveTime value="755297194345" /> <value unit="U/L" xsi:type="PQ " value="81" /> <referenceRange> <observationRange> <text>40-136</text> </observationRange> </ referenceRange> </observation> </component> <component> <observation moodCode="EVN" classCode="OBS"> <templateId root= "216.840.1.961907.10.20.22.4.2" /> <id nullFlavor="NA" /> < code codeSystem="local" code="19208" displayName="Serum or plasma aspartate aminotransferase measurement (enzymatic activity/volume)" /> < statusCode code="completed" /> <effectiveTime value="605569009492" /> <value unit="U/L" xsi:type="PQ" value="10" /> <referenceRange > <observationRange> <text>5-34</text> </ observationRange> </referenceRange> </observation> </ component> <component> <observation moodCode="EVN" classCode="OBS"> <templateId root="10.03.840.1.210100.10.20.22.4.2" /> <id nullFlavor="NA" /> <code codeSystem="local" code="1742-6" displayName= "Serum or plasma alanine aminotransferase measurement (enzymatic activity/volume )" /> <statusCode code="completed" /> <effectiveTime value= "544926023888" /> <value unit="U/L" xsi:type="PQ" value="10" /> <referenceRange> <observationRange> <text>0-55</text > </observationRange> </referenceRange> </observation > </component> <component> <observation moodCode="EVN" classCode="OBS"> <templateId root="216.840.1.635361.10.20.22.4.2" /> <id nullFlavor="NA" /> <code codeSystem="local" code="2885-2" displayName="Serum or plasma protein measurement (mass/volume)" /> < statusCode code="completed" /> <effectiveTime value="650730113285" /> <value unit="g/dL" xsi:type="PQ" value="8.4" /> < interpretationCode codeSystem="local" code="" /> <referenceRange> <observationRange> <text>6.4-8.2</text> </ observationRange> </referenceRange> </observation> </ component> <component> <observation moodCode="EVN" classCode="OBS"> <templateId root="216.840.1.763931.10.20.22.4.2" /> <id nullFlavor="NA" /> <code codeSystem="local" code="1751-7" displayName= "Serum or plasma albumin measurement (mass/volume)" /> <statusCode code ="completed" /> <effectiveTime value="582031185774" /> <value unit="g/dL" xsi:type="PQ" value="4.5" /> <referenceRange> < observationRange> <text>3.2-4.5</text> </ observationRange> </referenceRange> </observation> </ component> </organizer> </entry> <entry> <organizer moodCode="EVN" classCode="BATTERY"> <templateId root="16.840.1.693044.10..22.4.1" /> <id nullFlavor="NA" /> <code codeSystem="local" code="46541-8" displayName="Blood manual differential performed detection" /> <statusCode code="completed" /> <component> <observation moodCode="EVN" classCode="OBS"> <templateId root="216.840.1.527573.10..22.4.2" /> <id nullFlavor="NA" /> <code codeSystem="local" code="65325-6 " displayName="Blood monocytes/100 leukocytes" /> <statusCode code= "completed" /> <effectiveTime value="" /> <value unit="%" xsi:type="PQ" value="13" /> <referenceRange> < observationRange> <text>NRG</text> </observationRange> </referenceRange> </observation> </component> < component> <observation moodCode="EVN" classCode="OBS"> < templateId root="16.840.1.320204.10.20.22.4.2" /> <id nullFlavor="NA " /> <code codeSystem="local" code="769-0" displayName="Manual blood segmented neutrophils/100 leukocytes" /> <statusCode code="completed" / > <effectiveTime value="365469795874" /> <value unit="%" xsi:type="PQ" value="77" /> <referenceRange> < observationRange> <text>NRG</text> </observationRange> </referenceRange> </observation> </component> < component> <observation moodCode="EVN" classCode="OBS"> < templateId root="216.840.1.910520.10.20.22.4.2" /> <id nullFlavor="NA " /> <code codeSystem="local" code="21651-1" displayName="Blood band neutrophils/100 leukocytes" /> <statusCode code="completed" /> <effectiveTime value="605734412742" /> <value unit="%" xsi:type= "PQ" value="2" /> <referenceRange> <observationRange> <text>NRG</text> </observationRange> </ referenceRange> </observation> </component> <component> <observation moodCode="EVN" classCode="OBS"> <templateId root= "10.03.840.1.833714.10...4.2" /> <id nullFlavor="NA" /> < code codeSystem="local" code="737-7" displayName="Manual blood lymphocytes/100 leukocytes" /> <statusCode code="completed" /> <effectiveTime value="207142634160" /> <value unit="%" xsi:type="PQ" value="8" /> <referenceRange> <observationRange> <text>NRG< /text> </observationRange> </referenceRange> </ observation> </component> <component> <observation moodCode= "EVN" classCode="OBS"> <templateId root="10.03.840.1.960700.10.20.22.4.2 " /> <id nullFlavor="NA" /> <code codeSystem="local" code="803 -7" displayName="Blood toxic granules detection by light microscopy" /> <statusCode code="completed" /> <effectiveTime value="" / > <value unit="" xsi:type="PQ" value="2+" /> <referenceRange> <observationRange> <text>NRG</text> </ observationRange> </referenceRange> </observation> </ component> <component> <observation moodCode="EVN" classCode="OBS"> <templateId root="216.840.1.261601.10..4.2" /> <id nullFlavor="NA" /> <code codeSystem="local" code="741-9" displayName= "Blood microcytes detection by light microscopy" /> <statusCode code= "completed" /> <effectiveTime value="" /> <value unit="" xsi:type="PQ" value="SLIGHT" /> <referenceRange> < observationRange> <text>NRG</text> </observationRange> </referenceRange> </observation> </component> </ organizer> </entry> <entry> <organizer moodCode="EVN" classCode="BATTERY"> <templateId root="216.840.1.916425.10...4.1" /> <id nullFlavor= "NA" /> <code codeSystem="local" code="48750-6" displayName="Blood lactic acid measurement (moles/volume)" /> <statusCode code="completed" /> < component> <observation moodCode="EVN" classCode="OBS"> < templateId root="216.840.1.176683.10..22.4.2" /> <id nullFlavor="NA " /> <code codeSystem="local" code="50975-6" displayName="Blood lactic acid measurement (moles/volume)" /> <statusCode code="completed" /> <effectiveTime value="" /> <value unit="mmol/L" xsi: type="PQ" value="1.13" /> <referenceRange> <observationRange > <text>0.50-2.00</text> </observationRange> </ referenceRange> </observation> </component> </organizer> </entry > <entry> <organizer moodCode="EVN" classCode="BATTERY"> <templateId root="216.840.1.712257.10..4.1" /> <id nullFlavor="NA" /> <code codeSystem="local" code="600-7" displayName="Bacterial blood culture" /> < statusCode code="completed" /> <component> <observation moodCode= "EVN" classCode="OBS"> <templateId root="216.840.1.440619.10...4.2 " /> <id nullFlavor="NA" /> <code codeSystem="local" code="600 -7" displayName="Bacterial blood culture" /> <statusCode code= "completed" /> <effectiveTime value="041399336598" /> <value unit="" xsi:type="PQ" value="NG" /> <referenceRange> < observationRange> <text>NRG</text> </observationRange> </referenceRange> </observation> </component> </ organizer> </entry> <entry> <organizer moodCode="EVN" classCode="BATTERY"> <templateId root="216.840.1.470535.10.20.22.4.1" /> <id nullFlavor= "NA" /> <code codeSystem="local" code="72970-0" displayName="Urine drug screening test" /> <statusCode code="completed" /> <component> <observation moodCode="EVN" classCode="OBS"> <templateId root= "216.840.1.962841.10..22.4.2" /> <id nullFlavor="NA" /> < code codeSystem="local" code="51464-9" displayName="Urine phencyclidine detection by screening method" /> <statusCode code="completed" /> <effectiveTime value="" /> <value unit="" xsi:type="PQ " value="NEGATIVE" /> <referenceRange> <observationRange> <text>NEGATIVE</text> </observationRange> </ referenceRange> </observation> </component> <component> <observation moodCode="EVN" classCode="OBS"> <templateId root= "2.16.840.1.263479.06.06.22.4.2" /> <id nullFlavor="NA" /> < code codeSystem="local" code="47744-6" displayName="Urine benzodiazepines detection by screening method" /> <statusCode code="completed" /> <effectiveTime value="" /> <value unit="" xsi:type="PQ " value="NEGATIVE" /> <referenceRange> <observationRange> <text>NEGATIVE</text> </observationRange> </ referenceRange> </observation> </component> <component> <observation moodCode="EVN" classCode="OBS"> <templateId root= "216.840.1.023878...22.4.2" /> <id nullFlavor="NA" /> < code codeSystem="local" code="3397-7" displayName="Urine cocaine detection" /> <statusCode code="completed" /> <effectiveTime value= "" /> <value unit="" xsi:type="PQ" value="NEGATIVE" /> <referenceRange> <observationRange> <text>NEGATIVE </text> </observationRange> </referenceRange> </ observation> </component> <component> <observation moodCode= "EVN" classCode="OBS"> <templateId root="216.840.1.542443.10..22.4.2 " /> <id nullFlavor="NA" /> <code codeSystem="local" code= "60324-2" displayName="Urine amphetamines detection by screening method" /> <statusCode code="completed" /> <effectiveTime value= "" /> <value unit="" xsi:type="PQ" value="NEGATIVE" /> <referenceRange> <observationRange> <text>NEGATIVE </text> </observationRange> </referenceRange> </ observation> </component> <component> <observation moodCode= "EVN" classCode="OBS"> <templateId root="216.840.1.683191.10...4.2 " /> <id nullFlavor="NA" /> <code codeSystem="local" code= "64717-6" displayName="Urine methamphetamine detection by screening method" /> <statusCode code="completed" /> <effectiveTime value= "" /> <value unit="" xsi:type="PQ" value="NEGATIVE" /> <referenceRange> <observationRange> <text>NEGATIVE </text> </observationRange> </referenceRange> </ observation> </component> <component> <observation moodCode= "EVN" classCode="OBS"> <templateId root="216.840.1.810366.10..22.4.2 " /> <id nullFlavor="NA" /> <code codeSystem="local" code= "72991-6" displayName="Urine cannabinoids detection by screening method" /> <statusCode code="completed" /> <effectiveTime value= "" /> <value unit="" xsi:type="PQ" value="POSITIVE" /> <interpretationCode codeSystem="local" code="*" /> < referenceRange> <observationRange> <text>NEGATIVE</text > </observationRange> </referenceRange> </observation > </component> <component> <observation moodCode="EVN" classCode="OBS"> <templateId root="216.840.1.106788.10.20.22.4.2" /> <id nullFlavor="NA" /> <code codeSystem="local" code="46623-3 " displayName="Urine opiates detection by screening method" /> < statusCode code="completed" /> <effectiveTime value="873188005205" /> <value unit="" xsi:type="PQ" value="POSITIVE" /> < interpretationCode codeSystem="local" code="*" /> <referenceRange> <observationRange> <text>NEGATIVE</text> </ observationRange> </referenceRange> </observation> </ component> <component> <observation moodCode="EVN" classCode="OBS"> <templateId root="10.03.840.1.992407.10.22.4.2" /> <id nullFlavor="NA" /> <code codeSystem="local" code="3377-9" displayName= "Urine barbiturates detection" /> <statusCode code="completed" /> <effectiveTime value="672520978212" /> <value unit="" xsi:type="PQ " value="NEGATIVE" /> <referenceRange> <observationRange> <text>NEGATIVE</text> </observationRange> </ referenceRange> </observation> </component> <component> <observation moodCode="EVN" classCode="OBS"> <templateId root= "16.840.1.925286.10.20.22.4.2" /> <id nullFlavor="NA" /> < code codeSystem="local" code="72053-9" displayName="Screening urine tricyclic antidepressants detection" /> <statusCode code="completed" /> <effectiveTime value="" /> <value unit="" xsi:type="PQ" value="NEGATIVE" /> <referenceRange> <observationRange> <text>NEGATIVE</text> </observationRange> </ referenceRange> </observation> </component> <component> <observation moodCode="EVN" classCode="OBS"> <templateId root= "216.840.1.820704.10...4.2" /> <id nullFlavor="NA" /> < code codeSystem="local" code="95635-8" displayName="Urine methadone detection by screening method" /> <statusCode code="completed" /> < effectiveTime value="" /> <value unit="" xsi:type="PQ" value="NEGATIVE" /> <referenceRange> <observationRange> <text>NEGATIVE</text> </observationRange> </ referenceRange> </observation> </component> <component> <observation moodCode="EVN" classCode="OBS"> <templateId root= "10.03.840.1.659337.10...4.2" /> <id nullFlavor="NA" /> < code codeSystem="local" code="27003-2" displayName="Urine oxycodone detection" / > <statusCode code="completed" /> <effectiveTime value= "" /> <value unit="" xsi:type="PQ" value="NEGATIVE" /> <referenceRange> <observationRange> <text>NEGATIVE </text> </observationRange> </referenceRange> </ observation> </component> <component> <observation moodCode= "EVN" classCode="OBS"> <templateId root="16.840.1.584606.10...4.2 " /> <id nullFlavor="NA" /> <code codeSystem="local" code= "29604-5" displayName="Urine propoxyphene detection" /> <statusCode code="completed" /> <effectiveTime value="" /> < value unit="" xsi:type="PQ" value="NEGATIVE" /> <referenceRange> <observationRange> <text>NEGATIVE</text> </ observationRange> </referenceRange> </observation> </ component> </organizer> </entry> <entry> <organizer moodCode="EVN" classCode="BATTERY"> <templateId root="216.840.1.239424.10..22.4.1" /> <id nullFlavor="NA" /> <code codeSystem="local" code="22801-9" displayName="Complete urinalysis with reflex to culture" /> <statusCode code="completed" /> <component> <observation moodCode="EVN" classCode="OBS"> <templateId root="216.840.1.207327.10...4.2" /> <id nullFlavor="NA" /> <code codeSystem="local" code="5778-6" displayName="Urine color determination" /> <statusCode code="completed " /> <effectiveTime value="" /> <value unit="" xsi :type="PQ" value="YELLOW" /> <referenceRange> < observationRange> <text>NRG</text> </observationRange> </referenceRange> </observation> </component> < component> <observation moodCode="EVN" classCode="OBS"> < templateId root="16.840.1.306618.10..22.4.2" /> <id nullFlavor="NA " /> <code codeSystem="local" code="10038-8" displayName="Urine clarity determination" /> <statusCode code="completed" /> < effectiveTime value="" /> <value unit="" xsi:type="PQ" value="CLEAR" /> <referenceRange> <observationRange> <text>NRG</text> </observationRange> </referenceRange > </observation> </component> <component> <observation moodCode="EVN" classCode="OBS"> <templateId root= "216.840.1.000327.10..22.4.2" /> <id nullFlavor="NA" /> < code codeSystem="local" code="5803-2" displayName="Urine pH measurement by test strip" /> <statusCode code="completed" /> <effectiveTime value ="" /> <value unit="" xsi:type="PQ" value="5" /> < referenceRange> <observationRange> <text>5-9</text> </observationRange> </referenceRange> </observation> </component> <component> <observation moodCode="EVN" classCode= "OBS"> <templateId root="16.840.1.519497.10..22.4.2" /> < id nullFlavor="NA" /> <code codeSystem="local" code="5811-5" displayName="Specific gravity of urine by test strip" /> <statusCode code="completed" /> <effectiveTime value="629737230487" /> < value unit="" xsi:type="PQ" value="1.025" /> <interpretationCode codeSystem="local" code="*" /> <referenceRange> < observationRange> <text>1.016-1.022</text> </ observationRange> </referenceRange> </observation> </ component> <component> <observation moodCode="EVN" classCode="OBS"> <templateId root="10.03.840.1.754831.10..22.4.2" /> <id nullFlavor="NA" /> <code codeSystem="local" code="62823-8" displayName= "Urine protein assay by test strip, semi-quantitative" /> <statusCode code="completed" /> <effectiveTime value="" /> < value unit="" xsi:type="PQ" value="2+" /> <interpretationCode codeSystem="local" code="*" /> <referenceRange> < observationRange> <text>NEGATIVE</text> </ observationRange> </referenceRange> </observation> </ component> <component> <observation moodCode="EVN" classCode="OBS"> <templateId root="10.03.840.1.764046.10..4.2" /> <id nullFlavor="NA" /> <code codeSystem="local" code="35819-7" displayName= "Urine glucose detection by automated test strip" /> <statusCode code= "completed" /> <effectiveTime value="" /> <value unit="" xsi:type="PQ" value="NEGATIVE" /> <referenceRange> < observationRange> <text>NEGATIVE</text> </ observationRange> </referenceRange> </observation> </ component> <component> <observation moodCode="EVN" classCode="OBS"> <templateId root="16.840.1.861623.10.22.4.2" /> <id nullFlavor="NA" /> <code codeSystem="local" code="87565-6" displayName= "Erythrocytes detection in urine sediment by light microscopy" /> < statusCode code="completed" /> <effectiveTime value="" /> <value unit="" xsi:type="PQ" value="NEGATIVE" /> < referenceRange> <observationRange> <text>NEGATIVE</text > </observationRange> </referenceRange> </observation > </component> <component> <observation moodCode="EVN" classCode="OBS"> <templateId root="216.840.1.699389.10..22.4.2" /> <id nullFlavor="NA" /> <code codeSystem="local" code="28414-8 " displayName="Urine ketones detection by automated test strip" /> < statusCode code="completed" /> <effectiveTime value="" /> <value unit="" xsi:type="PQ" value="NEGATIVE" /> < referenceRange> <observationRange> <text>NEGATIVE</text > </observationRange> </referenceRange> </observation > </component> <component> <observation moodCode="EVN" classCode="OBS"> <templateId root="10.03.840.1.346451.10.4.2" /> <id nullFlavor="NA" /> <code codeSystem="local" code="5802-4" displayName="Urine nitrite detection by test strip" /> <statusCode code ="completed" /> <effectiveTime value="" /> <value unit="" xsi:type="PQ" value="NEGATIVE" /> <referenceRange> < observationRange> <text>NEGATIVE</text> </ observationRange> </referenceRange> </observation> </ component> <component> <observation moodCode="EVN" classCode="OBS"> <templateId root="16.840.1.461979.10...4.2" /> <id nullFlavor="NA" /> <code codeSystem="local" code="5770-3" displayName= "Urine total bilirubin detection by test strip" /> <statusCode code= "completed" /> <effectiveTime value="" /> <value unit="" xsi:type="PQ" value="1+" /> <interpretationCode codeSystem= "local" code="*" /> <referenceRange> <observationRange> <text>NEGATIVE</text> </observationRange> </ referenceRange> </observation> </component> <component> <observation moodCode="EVN" classCode="OBS"> <templateId root= "216.840.1.118816.10..4.2" /> <id nullFlavor="NA" /> < code codeSystem="local" code="51302-4" displayName="Urine urobilinogen measurement by automated test strip (mass/volume)" /> <statusCode code= "completed" /> <effectiveTime value="" /> <value unit="" xsi:type="PQ" value="NORMAL" /> <referenceRange> < observationRange> <text>NORMAL</text> </observationRange > </referenceRange> </observation> </component> < component> <observation moodCode="EVN" classCode="OBS"> < templateId root="216.840.1.326422.10.4.2" /> <id nullFlavor="NA " /> <code codeSystem="local" code="5799-2" displayName="Urine leukocyte esterase detection by dipstick" /> <statusCode code= "completed" /> <effectiveTime value="" /> <value unit="" xsi:type="PQ" value="1+" /> <interpretationCode codeSystem= "local" code="*" /> <referenceRange> <observationRange> <text>NEGATIVE</text> </observationRange> </ referenceRange> </observation> </component> <component> <observation moodCode="EVN" classCode="OBS"> <templateId root= "216.840.1.921579.22.4.2" /> <id nullFlavor="NA" /> < code codeSystem="local" code="01162-2" displayName="Automated urine sediment erythrocyte count by microscopy (number/high power field)" /> < statusCode code="completed" /> <effectiveTime value="" /> <value unit="" xsi:type="PQ" value="NONE" /> <referenceRange> <observationRange> <text>NRG</text> </ observationRange> </referenceRange> </observation> </ component> <component> <observation moodCode="EVN" classCode="OBS"> <templateId root="216.840.1.769605.06.06.22.4.2" /> <id nullFlavor="NA" /> <code codeSystem="local" code="5821-4" displayName= "Automated urine sediment leukocyte count by microscopy (number/high power field )" /> <statusCode code="completed" /> <effectiveTime value= "" /> <value unit="" xsi:type="PQ" value="RARE" /> <referenceRange> <observationRange> <text>NRG</text> </observationRange> </referenceRange> </observation> </component> <component> <observation moodCode="EVN" classCode ="OBS"> <templateId root="16.840.1.399668.06.06.22.4.2" /> < id nullFlavor="NA" /> <code codeSystem="local" code="71518-0" displayName="Bacteria detection in urine sediment by light microscopy" /> <statusCode code="completed" /> <effectiveTime value=" " /> <value unit="" xsi:type="PQ" value="FEW" /> < interpretationCode codeSystem="local" code="*" /> <referenceRange> <observationRange> <text>NRG</text> </ observationRange> </referenceRange> </observation> </ component> <component> <observation moodCode="EVN" classCode="OBS"> <templateId root="216.840.1.953145.10.20.22.4.2" /> <id nullFlavor="NA" /> <code codeSystem="local" code="82525-6" displayName= "Crystals detection in urine sediment by light microscopy" /> < statusCode code="completed" /> <effectiveTime value="150710946172" /> <value unit="" xsi:type="PQ" value="NONE" /> <referenceRange> <observationRange> <text>NRG</text> </ observationRange> </referenceRange> </observation> </ component> <component> <observation moodCode="EVN" classCode="OBS"> <templateId root="10.03.840.1.045281.10..4.2" /> <id nullFlavor="NA" /> <code codeSystem="local" code="72463-6" displayName= "Casts detection in urine sediment by light microscopy" /> <statusCode code="completed" /> <effectiveTime value="228152669671" /> < value unit="" xsi:type="PQ" value="NONE" /> <referenceRange> <observationRange> <text>NRG</text> </observationRange > </referenceRange> </observation> </component> < component> <observation moodCode="EVN" classCode="OBS"> < templateId root="16.840.1.497473.10.20.22.4.2" /> <id nullFlavor="NA " /> <code codeSystem="local" code="8247-9" displayName="Mucus detection in urine sediment by light microscopy" /> <statusCode code= "completed" /> <effectiveTime value="906038651533" /> <value unit="" xsi:type="PQ" value="LARGE" /> <interpretationCode codeSystem= "local" code="*" /> <referenceRange> <observationRange> <text>NRG</text> </observationRange> </ referenceRange> </observation> </component> <component> <observation moodCode="EVN" classCode="OBS"> <templateId root= "216.840.1.738789.10..22.4.2" /> <id nullFlavor="NA" /> < code codeSystem="local" code="83238-6" displayName="Complete urinalysis with reflex to culture" /> <statusCode code="completed" /> < effectiveTime value="181163879958" /> <value unit="" xsi:type="PQ" value="NO" /> <referenceRange> <observationRange> <text>NRG</text> </observationRange> </referenceRange> </observation> </component> <component> <observation moodCode="EVN" classCode="OBS"> <templateId root= "2.16.840.1.642816.10..22.4.2" /> <id nullFlavor="NA" /> < code codeSystem="local" code="8246-1" displayName="Amorphous sediment detection in urine sediment by light microscopy" /> <statusCode code="completed" /> <effectiveTime value="871342542833" /> <value unit="" xsi: type="PQ" value="MOD TRAN URATES" /> <interpretationCode codeSystem= "local" code="*" /> <referenceRange> <observationRange> <text>NRG</text> </observationRange> </ referenceRange> </observation> </component> </organizer> </entry > <entry> <organizer moodCode="EVN" classCode="BATTERY"> <templateId root="16.840.1.356482.10..22.4.1" /> <id nullFlavor="NA" /> <code codeSystem="local" code="600-7" displayName="Bacterial blood culture" /> < statusCode code="completed" /> <component> <observation moodCode= "EVN" classCode="OBS"> <templateId root="10.03.840.1.465342.06.06.22.4.2 " /> <id nullFlavor="NA" /> <code codeSystem="local" code="600 -7" displayName="Bacterial blood culture" /> <statusCode code= "completed" /> <effectiveTime value="282148709215" /> <value unit="" xsi:type="PQ" value="NG" /> <referenceRange> < observationRange> <text>NRG</text> </observationRange> </referenceRange> </observation> </component> </ organizer> </entry> <entry> <organizer moodCode="EVN" classCode="BATTERY"> <templateId root="10.03.840.1.209291.06.06.22.4.1" /> <id nullFlavor= "NA" /> <code codeSystem="local" code="93422-5" displayName="Methicillin resistant Staphylococcus aureus (MRSA) screening culture" /> <statusCode code="completed" /> <component> <observation moodCode="EVN" classCode="OBS"> <templateId root="16.840.1.565552.10..4.2" /> <id nullFlavor="NA" /> <code codeSystem="local" code="MRSARES " displayName="MRSA SCREEN RESULT" /> <statusCode code="completed" /> <effectiveTime value="575638729328" /> <value unit="" xsi:type ="PQ" value="MRSA ISOLATED" /> <interpretationCode codeSystem="local" code="*" /> <referenceRange> <observationRange> <text>NRG</text> </observationRange> </referenceRange> </observation> </component> </organizer> </entry> <entry> < organizer moodCode="EVN" classCode="BATTERY"> <templateId root= "2.16.840.1.897946.10.20.22.4.1" /> <id nullFlavor="NA" /> <code codeSystem="local" code="75697-4" displayName="Capillary blood glucose measurement by glucometer (mass/volume)" /> <statusCode code="completed" / > <component> <observation moodCode="EVN" classCode="OBS"> <templateId root="2.16.840.1.320618.10.20.22.4.2" /> <id nullFlavor="NA " /> <code codeSystem="local" code="23777-3" displayName="Capillary blood glucose measurement by glucometer (mass/volume)" /> <statusCode code="completed" /> <effectiveTime value="906708499494" /> < value unit="mg/dL" xsi:type="PQ" value="106" /> <referenceRange> <observationRange> <text>70-110</text> </ observationRange> </referenceRange> </observation> </ component> </organizer> </entry> <entry> <organizer moodCode="EVN" classCode="BATTERY"> <templateId root="2.16.840.1.884127.10.20.22.4.1" /> <id nullFlavor="NA" /> <code codeSystem="local" code="49022-0" displayName="Capillary blood glucose measurement by glucometer (mass/volume)" / > <statusCode code="completed" /> <component> <observation moodCode="EVN" classCode="OBS"> <templateId root= "216.840.1.794542.10.20.22.4.2" /> <id nullFlavor="NA" /> < code codeSystem="local" code="23153-1" displayName="Capillary blood glucose measurement by glucometer (mass/volume)" /> <statusCode code="completed " /> <effectiveTime value="433236964257" /> <value unit="mg/dL " xsi:type="PQ" value="215" /> <interpretationCode codeSystem="local" code="" /> <referenceRange> <observationRange> <text>70-110</text> </observationRange> </referenceRange > </observation> </component> </organizer> </entry> <entry> <organizer moodCode="EVN" classCode="BATTERY"> <templateId root= "216.840.1.042905.10.20.22.4.1" /> <id nullFlavor="NA" /> <code codeSystem="local" code="86810-1" displayName="Complete blood count (CBC) with automated white blood cell (WBC) differential" /> <statusCode code= "completed" /> <component> <observation moodCode="EVN" classCode= "OBS"> <templateId root="216.840.1.478241.10.20.22.4.2" /> < id nullFlavor="NA" /> <code codeSystem="local" code="6690-2" displayName="Blood leukocytes automated count (number/volume)" /> < statusCode code="completed" /> <effectiveTime value="239234522144" /> <value unit="10*3/uL" xsi:type="PQ" value="15.6" /> < interpretationCode codeSystem="local" code="" /> <referenceRange> <observationRange> <text>4.3-11.0</text> </ observationRange> </referenceRange> </observation> </ component> <component> <observation moodCode="EVN" classCode="OBS"> <templateId root="216.840.1.879201.10..22.4.2" /> <id nullFlavor="NA" /> <code codeSystem="local" code="789-8" displayName= "Blood erythrocytes automated count (number/volume)" /> <statusCode code="completed" /> <effectiveTime value="264532274978" /> < value unit="10*6/uL" xsi:type="PQ" value="3.58" /> <interpretationCode codeSystem="local" code="" /> <referenceRange> < observationRange> <text>4.35-5.85</text> </ observationRange> </referenceRange> </observation> </ component> <component> <observation moodCode="EVN" classCode="OBS"> <templateId root="16.840.1.005547.10...4.2" /> <id nullFlavor="NA" /> <code codeSystem="local" code="73349-9" displayName= "Venous blood hemoglobin measurement (mass/volume)" /> <statusCode code ="completed" /> <effectiveTime value="223947962354" /> <value unit="g/dL" xsi:type="PQ" value="8.7" /> <interpretationCode codeSystem ="local" code="" /> <referenceRange> <observationRange> <text>11.5-16.0</text> </observationRange> </ referenceRange> </observation> </component> <component> <observation moodCode="EVN" classCode="OBS"> <templateId root= "2.840.1.273375.06.06.22.4.2" /> <id nullFlavor="NA" /> < code codeSystem="local" code="63677-2" displayName="Blood hematocrit (volume fraction)" /> <statusCode code="completed" /> <effectiveTime value="" /> <value unit="%" xsi:type="PQ" value="27" / > <interpretationCode codeSystem="local" code="" /> < referenceRange> <observationRange> <text>35-52</text> </observationRange> </referenceRange> </observation> </component> <component> <observation moodCode="EVN" classCode= "OBS"> <templateId root="216.840.1.807682.10.4.2" /> < id nullFlavor="NA" /> <code codeSystem="local" code="787-2" displayName ="Automated erythrocyte mean corpuscular volume" /> <statusCode code= "completed" /> <effectiveTime value="" /> <value unit="[foz_us]" xsi:type="PQ" value="76" /> <interpretationCode codeSystem="local" code="" /> <referenceRange> < observationRange> <text>80-99</text> </observationRange > </referenceRange> </observation> </component> < component> <observation moodCode="EVN" classCode="OBS"> < templateId root="216.840.1.432390.10..4.2" /> <id nullFlavor="NA " /> <code codeSystem="local" code="785-6" displayName="Automated erythrocyte mean corpuscular hemoglobin (mass per erythrocyte)" /> < statusCode code="completed" /> <effectiveTime value="125114802771" /> <value unit="pg" xsi:type="PQ" value="24" /> < interpretationCode codeSystem="local" code="" /> <referenceRange> <observationRange> <text>25-34</text> </ observationRange> </referenceRange> </observation> </ component> <component> <observation moodCode="EVN" classCode="OBS"> <templateId root="2.16.840.1.227908.10...4.2" /> <id nullFlavor="NA" /> <code codeSystem="local" code="786-4" displayName= "Automated erythrocyte mean corpuscular hemoglobin concentration measurement ( mass/volume)" /> <statusCode code="completed" /> < effectiveTime value="642654539922" /> <value unit="g/dL" xsi:type="PQ" value="32" /> <referenceRange> <observationRange> <text>32-36</text> </observationRange> </referenceRange > </observation> </component> <component> <observation moodCode="EVN" classCode="OBS"> <templateId root= "216.840.1.645405.10...4.2" /> <id nullFlavor="NA" /> < code codeSystem="local" code="788-0" displayName="Automated erythrocyte distribution width ratio" /> <statusCode code="completed" /> < effectiveTime value="632321135727" /> <value unit="%" xsi:type="PQ " value="17.2" /> <interpretationCode codeSystem="local" code="" /> <referenceRange> <observationRange> <text>10.0- 14.5</text> </observationRange> </referenceRange> </ observation> </component> <component> <observation moodCode= "EVN" classCode="OBS"> <templateId root="2.16.840.1.219482.10.20.22.4.2 " /> <id nullFlavor="NA" /> <code codeSystem="local" code="777 -3" displayName="Automated blood platelet count (count/volume)" /> < statusCode code="completed" /> <effectiveTime value="617700292131" /> <value unit="10*3/uL" xsi:type="PQ" value="444" /> < interpretationCode codeSystem="local" code="" /> <referenceRange> <observationRange> <text>130-400</text> </ observationRange> </referenceRange> </observation> </ component> <component> <observation moodCode="EVN" classCode="OBS"> <templateId root="216.840.1.137960.10..22.4.2" /> <id nullFlavor="NA" /> <code codeSystem="local" code="38185-3" displayName= "Automated blood platelet mean volume measurement" /> <statusCode code= "completed" /> <effectiveTime value="728651102028" /> <value unit="[foz_us]" xsi:type="PQ" value="9.1" /> <referenceRange> <observationRange> <text>7.4-10.4</text> </ observationRange> </referenceRange> </observation> </ component> <component> <observation moodCode="EVN" classCode="OBS"> <templateId root="16.840.1.013534.10.20.22.4.2" /> <id nullFlavor="NA" /> <code codeSystem="local" code="770-8" displayName= "Automated blood neutrophils/100 leukocytes" /> <statusCode code= "completed" /> <effectiveTime value="861983781535" /> <value unit="%" xsi:type="PQ" value="83" /> <interpretationCode codeSystem ="local" code="" /> <referenceRange> <observationRange> <text>42-75</text> </observationRange> </ referenceRange> </observation> </component> <component> <observation moodCode="EVN" classCode="OBS"> <templateId root= "2.16.840.1.858093.10.20.22.4.2" /> <id nullFlavor="NA" /> < code codeSystem="local" code="736-9" displayName="Automated blood lymphocytes/ 100 leukocytes" /> <statusCode code="completed" /> < effectiveTime value="834822447184" /> <value unit="%" xsi:type="PQ " value="6" /> <interpretationCode codeSystem="local" code="" /> <referenceRange> <observationRange> <text>12-44</ text> </observationRange> </referenceRange> </ observation> </component> <component> <observation moodCode= "EVN" classCode="OBS"> <templateId root="216.840.1.289380.1022.4.2 " /> <id nullFlavor="NA" /> <code codeSystem="local" code= "51194-5" displayName="Blood monocytes/100 leukocytes" /> <statusCode code="completed" /> <effectiveTime value="671623130144" /> < value unit="%" xsi:type="PQ" value="10" /> <referenceRange> <observationRange> <text>0-12</text> </ observationRange> </referenceRange> </observation> </ component> <component> <observation moodCode="EVN" classCode="OBS"> <templateId root="2.16.840.1.722490.10.20.22.4.2" /> <id nullFlavor="NA" /> <code codeSystem="local" code="713-8" displayName= "Automated blood eosinophils/100 leukocytes" /> <statusCode code= "completed" /> <effectiveTime value="564936486870" /> <value unit="%" xsi:type="PQ" value="0" /> <referenceRange> < observationRange> <text>0-10</text> </observationRange> </referenceRange> </observation> </component> < component> <observation moodCode="EVN" classCode="OBS"> < templateId root="2.16.840.1.588010.10..22.4.2" /> <id nullFlavor="NA " /> <code codeSystem="local" code="706-2" displayName="Automated blood basophils/100 leukocytes" /> <statusCode code="completed" /> <effectiveTime value="110763563686" /> <value unit="%" xsi: type="PQ" value="0" /> <referenceRange> <observationRange> <text>0-10</text> </observationRange> </ referenceRange> </observation> </component> <component> <observation moodCode="EVN" classCode="OBS"> <templateId root= "2.16.840.1.580591.10..22.4.2" /> <id nullFlavor="NA" /> < code codeSystem="local" code="751-8" displayName="Blood neutrophils automated count (number/volume)" /> <statusCode code="completed" /> < effectiveTime value="346404793122" /> <value unit="10*3" xsi:type="PQ" value="13.0" /> <interpretationCode codeSystem="local" code="" /> <referenceRange> <observationRange> <text>1.8-7.8 </text> </observationRange> </referenceRange> </ observation> </component> <component> <observation moodCode= "EVN" classCode="OBS"> <templateId root="216.840.1.393799.10.2022.4.2 " /> <id nullFlavor="NA" /> <code codeSystem="local" code="731 -0" displayName="Blood lymphocytes automated count (number/volume)" /> <statusCode code="completed" /> <effectiveTime value="839473500720" /> <value unit="10*3" xsi:type="PQ" value="1.0" /> < referenceRange> <observationRange> <text>1.0-4.0</text> </observationRange> </referenceRange> </observation > </component> <component> <observation moodCode="EVN" classCode="OBS"> <templateId root="10.03.840.1.686670.22.4.2" /> <id nullFlavor="NA" /> <code codeSystem="local" code="742-7" displayName="Blood monocytes automated count (number/volume)" /> < statusCode code="completed" /> <effectiveTime value="873426613832" /> <value unit="10*3" xsi:type="PQ" value="1.5" /> < interpretationCode codeSystem="local" code="" /> <referenceRange> <observationRange> <text>0.0-1.0</text> </ observationRange> </referenceRange> </observation> </ component> <component> <observation moodCode="EVN" classCode="OBS"> <templateId root="16.840.1.932666.10.2022.4.2" /> <id nullFlavor="NA" /> <code codeSystem="local" code="711-2" displayName= "Automated eosinophil count" /> <statusCode code="completed" /> <effectiveTime value="904693269947" /> <value unit="10*3/uL" xsi: type="PQ" value="0.0" /> <referenceRange> <observationRange > <text>0.0-0.3</text> </observationRange> </ referenceRange> </observation> </component> <component> <observation moodCode="EVN" classCode="OBS"> <templateId root= "10.03.840.1.267240.10..4.2" /> <id nullFlavor="NA" /> < code codeSystem="local" code="704-7" displayName="Automated blood basophil count (count/volume)" /> <statusCode code="completed" /> < effectiveTime value="695526347797" /> <value unit="10*3/uL" xsi:type= "PQ" value="0.0" /> <referenceRange> <observationRange> <text>0.0-0.1</text> </observationRange> </ referenceRange> </observation> </component> </organizer> </entry > <entry> <organizer moodCode="EVN" classCode="BATTERY"> <templateId root="10.03.840.1.719208.10..4.1" /> <id nullFlavor="NA" /> <code codeSystem="local" code="13268-1" displayName="Comprehensive metabolic panel" / > <statusCode code="completed" /> <component> <observation moodCode="EVN" classCode="OBS"> <templateId root= "10.03.840.1.192852.10.22.4.2" /> <id nullFlavor="NA" /> < code codeSystem="local" code="2951-2" displayName="Serum or plasma sodium measurement (moles/volume)" /> <statusCode code="completed" /> <effectiveTime value="200712225998" /> <value unit="mmol/L" xsi:type= "PQ" value="132" /> <interpretationCode codeSystem="local" code="" / > <referenceRange> <observationRange> <text>135 -145</text> </observationRange> </referenceRange> </ observation> </component> <component> <observation moodCode= "EVN" classCode="OBS"> <templateId root="2.16.840.1.539155.10.20.22.4.2 " /> <id nullFlavor="NA" /> <code codeSystem="local" code= "2823-3" displayName="Serum or plasma potassium measurement (moles/volume)" /> <statusCode code="completed" /> <effectiveTime value= "052443153778" /> <value unit="mmol/L" xsi:type="PQ" value="3.9" /> <referenceRange> <observationRange> <text>3.6-5.0 </text> </observationRange> </referenceRange> </ observation> </component> <component> <observation moodCode= "EVN" classCode="OBS"> <templateId root="2.16.840.1.035499.10.20.22.4.2 " /> <id nullFlavor="NA" /> <code codeSystem="local" code= "2075-0" displayName="Serum or plasma chloride measurement (moles/volume)" /> <statusCode code="completed" /> <effectiveTime value= "346345116116" /> <value unit="mmol/L" xsi:type="PQ" value="104" /> <referenceRange> <observationRange> <text>98-107< /text> </observationRange> </referenceRange> </ observation> </component> <component> <observation moodCode= "EVN" classCode="OBS"> <templateId root="216.840.1.985423.10.20.22.4.2 " /> <id nullFlavor="NA" /> <code codeSystem="local" code= "2028-04" displayName="Carbon dioxide" /> <statusCode code="completed" / > <effectiveTime value="" /> <value unit="mmol/L" xsi:type="PQ" value="18" /> <interpretationCode codeSystem="local" code ="" /> <referenceRange> <observationRange> < text>21-32</text> </observationRange> </referenceRange> </observation> </component> <component> <observation moodCode="EVN" classCode="OBS"> <templateId root= "16.840.1.261204.10..22.4.2" /> <id nullFlavor="NA" /> < code codeSystem="local" code="71843-6" displayName="Serum or plasma anion gap determination (moles/volume)" /> <statusCode code="completed" /> <effectiveTime value="" /> <value unit="mmol/L" xsi: type="PQ" value="10" /> <referenceRange> <observationRange> <text>5-14</text> </observationRange> </ referenceRange> </observation> </component> <component> <observation moodCode="EVN" classCode="OBS"> <templateId root= "2.16.840.1.864715.10..22.4.2" /> <id nullFlavor="NA" /> < code codeSystem="local" code="3094-0" displayName="Serum or plasma urea nitrogen measurement (mass/volume)" /> <statusCode code="completed" /> <effectiveTime value="" /> <value unit="mg/dL" xsi:type="PQ" value="29" /> <interpretationCode codeSystem="local" code ="" /> <referenceRange> <observationRange> < text>7-18</text> </observationRange> </referenceRange> </observation> </component> <component> <observation moodCode="EVN" classCode="OBS"> <templateId root= "10.03.840.1.757141.10.20.22.4.2" /> <id nullFlavor="NA" /> < code codeSystem="local" code="2160-0" displayName="Serum or plasma creatinine measurement (mass/volume)" /> <statusCode code="completed" /> <effectiveTime value="319498018568" /> <value unit="mg/dL" xsi:type="PQ " value="1.49" /> <interpretationCode codeSystem="local" code="" /> <referenceRange> <observationRange> <text>0.60- 1.30</text> </observationRange> </referenceRange> </ observation> </component> <component> <observation moodCode= "EVN" classCode="OBS"> <templateId root="10.03.840.1.775060.10..22.4.2 " /> <id nullFlavor="NA" /> <code codeSystem="local" code= "3097-3" displayName="Serum or plasma urea nitrogen/creatinine mass ratio" /> <statusCode code="completed" /> <effectiveTime value= "542716219469" /> <value unit="" xsi:type="PQ" value="19" /> < referenceRange> <observationRange> <text>NRG</text> </observationRange> </referenceRange> </observation> </component> <component> <observation moodCode="EVN" classCode= "OBS"> <templateId root="840.1.237213.10.20.22.4.2" /> < id nullFlavor="NA" /> <code codeSystem="local" code="59865-1" displayName="Serum or plasma creatinine measurement with calculation of estimated glomerular filtration rate" /> <statusCode code="completed" / > <effectiveTime value="856747170531" /> <value unit="" xsi: type="PQ" value="36" /> <referenceRange> <observationRange> <text>NRG</text> </observationRange> </ referenceRange> </observation> </component> <component> <observation moodCode="EVN" classCode="OBS"> <templateId root= "16.840.1.532134.10.20.22.4.2" /> <id nullFlavor="NA" /> < code codeSystem="local" code="2345-7" displayName="Serum or plasma glucose measurement (mass/volume)" /> <statusCode code="completed" /> <effectiveTime value="223833926159" /> <value unit="mg/dL" xsi:type="PQ " value="134" /> <interpretationCode codeSystem="local" code="" /> <referenceRange> <observationRange> <text>70-105 </text> </observationRange> </referenceRange> </ observation> </component> <component> <observation moodCode= "EVN" classCode="OBS"> <templateId root="16.840.1.703733.10.20.22.4.2 " /> <id nullFlavor="NA" /> <code codeSystem="local" code= "37156-0" displayName="Serum or plasma calcium measurement (mass/volume)" /> <statusCode code="completed" /> <effectiveTime value= "430365835932" /> <value unit="mg/dL" xsi:type="PQ" value="8.7" /> <referenceRange> <observationRange> <text>8.5-10.1 </text> </observationRange> </referenceRange> </ observation> </component> <component> <observation moodCode= "EVN" classCode="OBS"> <templateId root="2.16.840.1.383511.10.20.22.4.2 " /> <id nullFlavor="NA" /> <code codeSystem="local" code= "1974-09" displayName="Serum or plasma total bilirubin measurement (mass/volume) " /> <statusCode code="completed" /> <effectiveTime value= "426882111115" /> <value unit="mg/dL" xsi:type="PQ" value="0.4" /> <referenceRange> <observationRange> <text>0.1-1.0< /text> </observationRange> </referenceRange> </ observation> </component> <component> <observation moodCode= "EVN" classCode="OBS"> <templateId root="216.840.1.379248.10..22.4.2 " /> <id nullFlavor="NA" /> <code codeSystem="local" code= "6768-6" displayName="Serum or plasma alkaline phosphatase measurement ( enzymatic activity/volume)" /> <statusCode code="completed" /> <effectiveTime value="098046279976" /> <value unit="U/L" xsi:type="PQ " value="88" /> <referenceRange> <observationRange> <text>40-136</text> </observationRange> </ referenceRange> </observation> </component> <component> <observation moodCode="EVN" classCode="OBS"> <templateId root= "2.16.840.1.731961.10.20.22.4.2" /> <id nullFlavor="NA" /> < code codeSystem="local" code="192" displayName="Serum or plasma aspartate aminotransferase measurement (enzymatic activity/volume)" /> < statusCode code="completed" /> <effectiveTime value="361335472289" /> <value unit="U/L" xsi:type="PQ" value="11" /> <referenceRange > <observationRange> <text>5-34</text> </ observationRange> </referenceRange> </observation> </ component> <component> <observation moodCode="EVN" classCode="OBS"> <templateId root="2.16.840.1.243067.10.20.22.4.2" /> <id nullFlavor="NA" /> <code codeSystem="local" code="1746" displayName= "Serum or plasma alanine aminotransferase measurement (enzymatic activity/volume )" /> <statusCode code="completed" /> <effectiveTime value= "168045769659" /> <value unit="U/L" xsi:type="PQ" value="8" /> <referenceRange> <observationRange> <text>0-55</text> </observationRange> </referenceRange> </observation > </component> <component> <observation moodCode="EVN" classCode="OBS"> <templateId root="2.16.840.1.826788.10.20.22.4.2" /> <id nullFlavor="NA" /> <code codeSystem="local" code="2885-2" displayName="Serum or plasma protein measurement (mass/volume)" /> < statusCode code="completed" /> <effectiveTime value="079557934198" /> <value unit="g/dL" xsi:type="PQ" value="6.7" /> < referenceRange> <observationRange> <text>6.4-8.2</text> </observationRange> </referenceRange> </observation > </component> <component> <observation moodCode="EVN" classCode="OBS"> <templateId root="2.16.840.1.177697.10.20.22.4.2" /> <id nullFlavor="NA" /> <code codeSystem="local" code="1751-7" displayName="Serum or plasma albumin measurement (mass/volume)" /> < statusCode code="completed" /> <effectiveTime value="059367395096" /> <value unit="g/dL" xsi:type="PQ" value="3.5" /> < referenceRange> <observationRange> <text>3.2-4.5</text> </observationRange> </referenceRange> </observation > </component> </organizer> </entry> <entry> <organizer moodCode= "EVN" classCode="BATTERY"> <templateId root="2.16.840.1.379062.10.20.22.4.1 " /> <id nullFlavor="NA" /> <code codeSystem="local" code="61199-1" displayName="PT panel in platelet poor plasma by coagulation assay" /> < statusCode code="completed" /> <component> <observation moodCode= "EVN" classCode="OBS"> <templateId root="2.16.840.1.886310.10.20.22.4.2 " /> <id nullFlavor="NA" /> <code codeSystem="local" code= "5902-2" displayName="Prothrombin time (PT) in platelet poor plasma by coagulation assay" /> <statusCode code="completed" /> < effectiveTime value="040193670854" /> <value unit="s" xsi:type="PQ" value="14.2" /> <referenceRange> <observationRange> <text>12.2-14.7</text> </observationRange> </ referenceRange> </observation> </component> <component> <observation moodCode="EVN" classCode="OBS"> <templateId root= "2.16.840.1.113953.10.20.22.4.2" /> <id nullFlavor="NA" /> < code codeSystem="local" code="30599-6" displayName="INR in platelet poor plasma or blood by coagulation assay" /> <statusCode code="completed" /> <effectiveTime value="715029354034" /> <value unit="" xsi:type="PQ " value="1.1" /> <referenceRange> <observationRange> <text>0.8-1.4</text> </observationRange> </ referenceRange> </observation> </component> </organizer> </entry > <entry> <organizer moodCode="EVN" classCode="BATTERY"> <templateId root="2.16.840.1.194855.10.20.22.4.1" /> <id nullFlavor="NA" /> <code codeSystem="local" code="2777-1" displayName="Serum or plasma phosphate measurement (mass/volume)" /> <statusCode code="completed" /> < component> <observation moodCode="EVN" classCode="OBS"> < templateId root="2.16.840.1.927037.10.20.22.4.2" /> <id nullFlavor="NA " /> <code codeSystem="local" code="2777-1" displayName="Serum or plasma phosphate measurement (mass/volume)" /> <statusCode code= "completed" /> <effectiveTime value="423910524333" /> <value unit="mg/dL" xsi:type="PQ" value="2.0" /> <interpretationCode codeSystem="local" code="" /> <referenceRange> < observationRange> <text>2.3-4.7</text> </ observationRange> </referenceRange> </observation> </ component> </organizer> </entry> <entry> <organizer moodCode="EVN" classCode="BATTERY"> <templateId root="16.840.1.938055.10..22.4.1" /> <id nullFlavor="NA" /> <code codeSystem="local" code="" displayName="Magnesium" /> <statusCode code="completed" /> <component > <observation moodCode="EVN" classCode="OBS"> <templateId root= "10.03.840.1.003835.06.06.22.4.2" /> <id nullFlavor="NA" /> < code codeSystem="local" code="" displayName="Magnesium" /> < statusCode code="completed" /> <effectiveTime value="574923844479" /> <value unit="mg/dL" xsi:type="PQ" value="1.8" /> < referenceRange> <observationRange> <text>1.8-2.4</text> </observationRange> </referenceRange> </observation > </component> </organizer> </entry> <entry> <organizer moodCode= "EVN" classCode="BATTERY"> <templateId root="10.03.840.1.912619.22.4.1 " /> <id nullFlavor="NA" /> <code codeSystem="local" code="13399-1" displayName="Capillary blood glucose measurement by glucometer (mass/volume)" / > <statusCode code="completed" /> <component> <observation moodCode="EVN" classCode="OBS"> <templateId root= "16.840.1.275127.10..22.4.2" /> <id nullFlavor="NA" /> < code codeSystem="local" code="98245-3" displayName="Capillary blood glucose measurement by glucometer (mass/volume)" /> <statusCode code="completed " /> <effectiveTime value="722635952944" /> <value unit="mg/dL " xsi:type="PQ" value="156" /> <interpretationCode codeSystem="local" code="" /> <referenceRange> <observationRange> <text>70-110</text> </observationRange> </referenceRange > </observation> </component> </organizer> </entry> <entry> <organizer moodCode="EVN" classCode="BATTERY"> <templateId root= "2.16.840.1.233104.10.20.22.4.1" /> <id nullFlavor="NA" /> <code codeSystem="local" code="56823-9" displayName="Capillary blood glucose measurement by glucometer (mass/volume)" /> <statusCode code="completed" / > <component> <observation moodCode="EVN" classCode="OBS"> <templateId root="2.16.840.1.114024.10.20.22.4.2" /> <id nullFlavor="NA " /> <code codeSystem="local" code="96516-8" displayName="Capillary blood glucose measurement by glucometer (mass/volume)" /> <statusCode code="completed" /> <effectiveTime value="635753659023" /> < value unit="mg/dL" xsi:type="PQ" value="128" /> <interpretationCode codeSystem="local" code="" /> <referenceRange> < observationRange> <text>70-110</text> </observationRange > </referenceRange> </observation> </component> </ organizer> </entry> <entry> <organizer moodCode="EVN" classCode="BATTERY"> <templateId root="10.03.840.1.085981.10...4.1" /> <id nullFlavor= "NA" /> <code codeSystem="local" code="40562-5" displayName="Capillary blood glucose measurement by glucometer (mass/volume)" /> <statusCode code= "completed" /> <component> <observation moodCode="EVN" classCode= "OBS"> <templateId root="10.03.840.1.147912.06.06.22.4.2" /> < id nullFlavor="NA" /> <code codeSystem="local" code="37867-7" displayName="Capillary blood glucose measurement by glucometer (mass/volume)" / > <statusCode code="completed" /> <effectiveTime value= "361152375349" /> <value unit="mg/dL" xsi:type="PQ" value="290" /> <interpretationCode codeSystem="local" code="" /> < referenceRange> <observationRange> <text>70-110</text> </observationRange> </referenceRange> </observation> </component> </organizer> </entry> <entry> <organizer moodCode= "EVN" classCode="BATTERY"> <templateId root="840.1.859095.10..4.1 " /> <id nullFlavor="NA" /> <code codeSystem="local" code="26206-5" displayName="Capillary blood glucose measurement by glucometer (mass/volume)" / > <statusCode code="completed" /> <component> <observation moodCode="EVN" classCode="OBS"> <templateId root= "10.03.840.1.913699.10..22.4.2" /> <id nullFlavor="NA" /> < code codeSystem="local" code="28797-5" displayName="Capillary blood glucose measurement by glucometer (mass/volume)" /> <statusCode code="completed " /> <effectiveTime value="015771334757" /> <value unit="mg/dL " xsi:type="PQ" value="272" /> <interpretationCode codeSystem="local" code="" /> <referenceRange> <observationRange> <text>70-110</text> </observationRange> </referenceRange > </observation> </component> </organizer> </entry> <entry> <organizer moodCode="EVN" classCode="BATTERY"> <templateId root= "2.16.840.1.377571.10.20.22.4.1" /> <id nullFlavor="NA" /> <code codeSystem="local" code="73514-1" displayName="Complete blood count (CBC) with automated white blood cell (WBC) differential" /> <statusCode code= "completed" /> <component> <observation moodCode="EVN" classCode= "OBS"> <templateId root="216.840.1.818803.10.20.22.4.2" /> < id nullFlavor="NA" /> <code codeSystem="local" code="6690-2" displayName="Blood leukocytes automated count (number/volume)" /> < statusCode code="completed" /> <effectiveTime value="830895568634" /> <value unit="10*3/uL" xsi:type="PQ" value="13.9" /> < interpretationCode codeSystem="local" code="" /> <referenceRange> <observationRange> <text>4.3-11.0</text> </ observationRange> </referenceRange> </observation> </ component> <component> <observation moodCode="EVN" classCode="OBS"> <templateId root="216.840.1.945562.10.20.22.4.2" /> <id nullFlavor="NA" /> <code codeSystem="local" code="789-8" displayName= "Blood erythrocytes automated count (number/volume)" /> <statusCode code="completed" /> <effectiveTime value="" /> < value unit="10*6/uL" xsi:type="PQ" value="3.58" /> <interpretationCode codeSystem="local" code="" /> <referenceRange> < observationRange> <text>4.35-5.85</text> </ observationRange> </referenceRange> </observation> </ component> <component> <observation moodCode="EVN" classCode="OBS"> <templateId root="216.840.1.862456.10.20.22.4.2" /> <id nullFlavor="NA" /> <code codeSystem="local" code="24806-6" displayName= "Venous blood hemoglobin measurement (mass/volume)" /> <statusCode code ="completed" /> <effectiveTime value="" /> <value unit="g/dL" xsi:type="PQ" value="8.9" /> <interpretationCode codeSystem ="local" code="" /> <referenceRange> <observationRange> <text>11.5-16.0</text> </observationRange> </ referenceRange> </observation> </component> <component> <observation moodCode="EVN" classCode="OBS"> <templateId root= "16.840.1.696184.10.20.22.4.2" /> <id nullFlavor="NA" /> < code codeSystem="local" code="65019-4" displayName="Blood hematocrit (volume fraction)" /> <statusCode code="completed" /> <effectiveTime value="" /> <value unit="%" xsi:type="PQ" value="27" / > <interpretationCode codeSystem="local" code="" /> < referenceRange> <observationRange> <text>35-52</text> </observationRange> </referenceRange> </observation> </component> <component> <observation moodCode="EVN" classCode= "OBS"> <templateId root="2.16.840.1.834793.10...4.2" /> < id nullFlavor="NA" /> <code codeSystem="local" code="787-2" displayName ="Automated erythrocyte mean corpuscular volume" /> <statusCode code= "completed" /> <effectiveTime value="799203469025" /> <value unit="[foz_us]" xsi:type="PQ" value="75" /> <interpretationCode codeSystem="local" code="" /> <referenceRange> < observationRange> <text>80-99</text> </observationRange > </referenceRange> </observation> </component> < component> <observation moodCode="EVN" classCode="OBS"> < templateId root="2.16.840.1.017966.10...4.2" /> <id nullFlavor="NA " /> <code codeSystem="local" code="785-6" displayName="Automated erythrocyte mean corpuscular hemoglobin (mass per erythrocyte)" /> < statusCode code="completed" /> <effectiveTime value="711055555097" /> <value unit="pg" xsi:type="PQ" value="25" /> <referenceRange> <observationRange> <text>25-34</text> </ observationRange> </referenceRange> </observation> </ component> <component> <observation moodCode="EVN" classCode="OBS"> <templateId root="2.16.840.1.301644.06.06.22.4.2" /> <id nullFlavor="NA" /> <code codeSystem="local" code="786-4" displayName= "Automated erythrocyte mean corpuscular hemoglobin concentration measurement ( mass/volume)" /> <statusCode code="completed" /> < effectiveTime value="329958771888" /> <value unit="g/dL" xsi:type="PQ" value="33" /> <referenceRange> <observationRange> <text>32-36</text> </observationRange> </referenceRange > </observation> </component> <component> <observation moodCode="EVN" classCode="OBS"> <templateId root= "216.840.1.630017.10.2022.4.2" /> <id nullFlavor="NA" /> < code codeSystem="local" code="788-0" displayName="Automated erythrocyte distribution width ratio" /> <statusCode code="completed" /> < effectiveTime value="608030705464" /> <value unit="%" xsi:type="PQ " value="17.4" /> <interpretationCode codeSystem="local" code="" /> <referenceRange> <observationRange> <text>10.0- 14.5</text> </observationRange> </referenceRange> </ observation> </component> <component> <observation moodCode= "EVN" classCode="OBS"> <templateId root="216.840.1.122412.10.20.22.4.2 " /> <id nullFlavor="NA" /> <code codeSystem="local" code="777 -3" displayName="Automated blood platelet count (count/volume)" /> < statusCode code="completed" /> <effectiveTime value="019728758049" /> <value unit="10*3/uL" xsi:type="PQ" value="477" /> < interpretationCode codeSystem="local" code="" /> <referenceRange> <observationRange> <text>130-400</text> </ observationRange> </referenceRange> </observation> </ component> <component> <observation moodCode="EVN" classCode="OBS"> <templateId root="2.16.840.1.144622.10.20.22.4.2" /> <id nullFlavor="NA" /> <code codeSystem="local" code="50079-6" displayName= "Automated blood platelet mean volume measurement" /> <statusCode code= "completed" /> <effectiveTime value="429626534256" /> <value unit="[[facility]]" xsi:type="PQ" value="8.9" /> <referenceRange> <observationRange> <text>7.4-10.4</text> </ observationRange> </referenceRange> </observation> </ component> <component> <observation moodCode="EVN" classCode="OBS"> <templateId root="216.840.1.082085.10..22.4.2" /> <id nullFlavor="NA" /> <code codeSystem="local" code="770-8" displayName= "Automated blood neutrophils/100 leukocytes" /> <statusCode code= "completed" /> <effectiveTime value="301993719679" /> <value unit="%" xsi:type="PQ" value="88" /> <interpretationCode codeSystem ="local" code="" /> <referenceRange> <observationRange> <text>42-75</text> </observationRange> </ referenceRange> </observation> </component> <component> <observation moodCode="EVN" classCode="OBS"> <templateId root= "216.840.1.113198.06.06.22.4.2" /> <id nullFlavor="NA" /> < code codeSystem="local" code="736-9" displayName="Automated blood lymphocytes/ 100 leukocytes" /> <statusCode code="completed" /> < effectiveTime value="956618778957" /> <value unit="%" xsi:type="PQ " value="4" /> <interpretationCode codeSystem="local" code="" /> <referenceRange> <observationRange> <text>12-44</ text> </observationRange> </referenceRange> </ observation> </component> <component> <observation moodCode= "EVN" classCode="OBS"> <templateId root="2.16.840.1.836056.06.06.22.4.2 " /> <id nullFlavor="NA" /> <code codeSystem="local" code= "11776-8" displayName="Blood monocytes/100 leukocytes" /> <statusCode code="completed" /> <effectiveTime value="463647305131" /> < value unit="%" xsi:type="PQ" value="7" /> <referenceRange> <observationRange> <text>0-12</text> </ observationRange> </referenceRange> </observation> </ component> <component> <observation moodCode="EVN" classCode="OBS"> <templateId root="2.16.840.1.362302.06.06.22.4.2" /> <id nullFlavor="NA" /> <code codeSystem="local" code="713-8" displayName= "Automated blood eosinophils/100 leukocytes" /> <statusCode code= "completed" /> <effectiveTime value="591246479310" /> <value unit="%" xsi:type="PQ" value="1" /> <referenceRange> < observationRange> <text>0-10</text> </observationRange> </referenceRange> </observation> </component> < component> <observation moodCode="EVN" classCode="OBS"> < templateId root="216.840.1.306250.10.20.22.4.2" /> <id nullFlavor="NA " /> <code codeSystem="local" code="706-2" displayName="Automated blood basophils/100 leukocytes" /> <statusCode code="completed" /> <effectiveTime value="802804123821" /> <value unit="%" xsi: type="PQ" value="0" /> <referenceRange> <observationRange> <text>0-10</text> </observationRange> </ referenceRange> </observation> </component> <component> <observation moodCode="EVN" classCode="OBS"> <templateId root= "216.840.1.746541.10.22.4.2" /> <id nullFlavor="NA" /> < code codeSystem="local" code="751-8" displayName="Blood neutrophils automated count (number/volume)" /> <statusCode code="completed" /> < effectiveTime value="871025516252" /> <value unit="10*3" xsi:type="PQ" value="12.2" /> <interpretationCode codeSystem="local" code="" /> <referenceRange> <observationRange> <text>1.8-7.8 </text> </observationRange> </referenceRange> </ observation> </component> <component> <observation moodCode= "EVN" classCode="OBS"> <templateId root="216.840.1.527970.10.20.22.4.2 " /> <id nullFlavor="NA" /> <code codeSystem="local" code="731 -0" displayName="Blood lymphocytes automated count (number/volume)" /> <statusCode code="completed" /> <effectiveTime value="244606701224" /> <value unit="10*3" xsi:type="PQ" value="0.6" /> < interpretationCode codeSystem="local" code="" /> <referenceRange> <observationRange> <text>1.0-4.0</text> </ observationRange> </referenceRange> </observation> </ component> <component> <observation moodCode="EVN" classCode="OBS"> <templateId root="2.16.840.1.555070.10...4.2" /> <id nullFlavor="NA" /> <code codeSystem="local" code="742-7" displayName= "Blood monocytes automated count (number/volume)" /> <statusCode code= "completed" /> <effectiveTime value="924396971081" /> <value unit="10*3" xsi:type="PQ" value="1.0" /> <referenceRange> < observationRange> <text>0.0-1.0</text> </ observationRange> </referenceRange> </observation> </ component> <component> <observation moodCode="EVN" classCode="OBS"> <templateId root="2.16.840.1.327540.10..22.4.2" /> <id nullFlavor="NA" /> <code codeSystem="local" code="711-2" displayName= "Automated eosinophil count" /> <statusCode code="completed" /> <effectiveTime value="159354306689" /> <value unit="10*3/uL" xsi: type="PQ" value="0.1" /> <referenceRange> <observationRange > <text>0.0-0.3</text> </observationRange> </ referenceRange> </observation> </component> <component> <observation moodCode="EVN" classCode="OBS"> <templateId root= "2.16.840.1.500430.10..22.4.2" /> <id nullFlavor="NA" /> < code codeSystem="local" code="704-7" displayName="Automated blood basophil count (count/volume)" /> <statusCode code="completed" /> < effectiveTime value="190448824580" /> <value unit="10*3/uL" xsi:type= "PQ" value="0.0" /> <referenceRange> <observationRange> <text>0.0-0.1</text> </observationRange> </ referenceRange> </observation> </component> </organizer> </entry > <entry> <organizer moodCode="EVN" classCode="BATTERY"> <templateId root="2.16.840.1.489108.10..22.4.1" /> <id nullFlavor="NA" /> <code codeSystem="local" code="86856-0" displayName="Comprehensive metabolic panel" / > <statusCode code="completed" /> <component> <observation moodCode="EVN" classCode="OBS"> <templateId root= "2.16.840.1.683830.10.20.22.4.2" /> <id nullFlavor="NA" /> < code codeSystem="local" code="2951-2" displayName="Serum or plasma sodium measurement (moles/volume)" /> <statusCode code="completed" /> <effectiveTime value="905629537271" /> <value unit="mmol/L" xsi:type= "PQ" value="128" /> <interpretationCode codeSystem="local" code="" / > <referenceRange> <observationRange> <text>135 -145</text> </observationRange> </referenceRange> </ observation> </component> <component> <observation moodCode= "EVN" classCode="OBS"> <templateId root="216.840.1.405409.10..22.4.2 " /> <id nullFlavor="NA" /> <code codeSystem="local" code= "2823-3" displayName="Serum or plasma potassium measurement (moles/volume)" /> <statusCode code="completed" /> <effectiveTime value= "556718078277" /> <value unit="mmol/L" xsi:type="PQ" value="3.5" /> <interpretationCode codeSystem="local" code="" /> < referenceRange> <observationRange> <text>3.6-5.0</text> </observationRange> </referenceRange> </observation > </component> <component> <observation moodCode="EVN" classCode="OBS"> <templateId root="16.840.1.825459.10..22.4.2" /> <id nullFlavor="NA" /> <code codeSystem="local" code="2075-0" displayName="Serum or plasma chloride measurement (moles/volume)" /> < statusCode code="completed" /> <effectiveTime value="395982012687" /> <value unit="mmol/L" xsi:type="PQ" value="96" /> < interpretationCode codeSystem="local" code="" /> <referenceRange> <observationRange> <text>98-107</text> </ observationRange> </referenceRange> </observation> </ component> <component> <observation moodCode="EVN" classCode="OBS"> <templateId root="216.840.1.165059.10.20.22.4.2" /> <id nullFlavor="NA" /> <code codeSystem="local" code="2028-04" displayName= "Carbon dioxide" /> <statusCode code="completed" /> < effectiveTime value="088164317542" /> <value unit="mmol/L" xsi:type="PQ " value="20" /> <interpretationCode codeSystem="local" code="" /> <referenceRange> <observationRange> <text>21-32</ text> </observationRange> </referenceRange> </ observation> </component> <component> <observation moodCode= "EVN" classCode="OBS"> <templateId root="2.16.840.1.608484.10.20.22.4.2 " /> <id nullFlavor="NA" /> <code codeSystem="local" code= "40081-1" displayName="Serum or plasma anion gap determination (moles/volume)" / > <statusCode code="completed" /> <effectiveTime value= "465084016006" /> <value unit="mmol/L" xsi:type="PQ" value="12" /> <referenceRange> <observationRange> <text>5-14</ text> </observationRange> </referenceRange> </ observation> </component> <component> <observation moodCode= "EVN" classCode="OBS"> <templateId root="2.16.840.1.311894.10.20.22.4.2 " /> <id nullFlavor="NA" /> <code codeSystem="local" code= "3094-0" displayName="Serum or plasma urea nitrogen measurement (mass/volume)" / > <statusCode code="completed" /> <effectiveTime value= "901160049416" /> <value unit="mg/dL" xsi:type="PQ" value="11" /> <referenceRange> <observationRange> <text>7-18</ text> </observationRange> </referenceRange> </ observation> </component> <component> <observation moodCode= "EVN" classCode="OBS"> <templateId root="2.16.840.1.563688.10.20.22.4.2 " /> <id nullFlavor="NA" /> <code codeSystem="local" code= "2160-0" displayName="Serum or plasma creatinine measurement (mass/volume)" /> <statusCode code="completed" /> <effectiveTime value= "361236824158" /> <value unit="mg/dL" xsi:type="PQ" value="0.86" /> <referenceRange> <observationRange> <text>0.60- 1.30</text> </observationRange> </referenceRange> </ observation> </component> <component> <observation moodCode= "EVN" classCode="OBS"> <templateId root="2.16.840.1.911608.10..22.4.2 " /> <id nullFlavor="NA" /> <code codeSystem="local" code= "3097-3" displayName="Serum or plasma urea nitrogen/creatinine mass ratio" /> <statusCode code="completed" /> <effectiveTime value= "370839121636" /> <value unit="" xsi:type="PQ" value="13" /> < referenceRange> <observationRange> <text>NRG</text> </observationRange> </referenceRange> </observation> </component> <component> <observation moodCode="EVN" classCode= "OBS"> <templateId root="216.840.1.779457.10.20.22.4.2" /> < id nullFlavor="NA" /> <code codeSystem="local" code="05772-3" displayName="Serum or plasma creatinine measurement with calculation of estimated glomerular filtration rate" /> <statusCode code="completed" / > <effectiveTime value="185867914990" /> <value unit="" xsi: type="PQ" value=">" /> <referenceRange> <observationRange > <text>NRG</text> </observationRange> </ referenceRange> </observation> </component> <component> <observation moodCode="EVN" classCode="OBS"> <templateId root= "216.840.1.801472.10.20.22.4.2" /> <id nullFlavor="NA" /> < code codeSystem="local" code="2345-7" displayName="Serum or plasma glucose measurement (mass/volume)" /> <statusCode code="completed" /> <effectiveTime value="303268782889" /> <value unit="mg/dL" xsi:type="PQ " value="232" /> <interpretationCode codeSystem="local" code="" /> <referenceRange> <observationRange> <text>70-105 </text> </observationRange> </referenceRange> </ observation> </component> <component> <observation moodCode= "EVN" classCode="OBS"> <templateId root="10.03.840.1.176423.10..22.4.2 " /> <id nullFlavor="NA" /> <code codeSystem="local" code= "88046-6" displayName="Serum or plasma calcium measurement (mass/volume)" /> <statusCode code="completed" /> <effectiveTime value= "182184375153" /> <value unit="mg/dL" xsi:type="PQ" value="9.2" /> <referenceRange> <observationRange> <text>8.5-10.1 </text> </observationRange> </referenceRange> </ observation> </component> <component> <observation moodCode= "EVN" classCode="OBS"> <templateId root="216.840.1.232157.10.20..4.2 " /> <id nullFlavor="NA" /> <code codeSystem="local" code= "1974-09" displayName="Serum or plasma total bilirubin measurement (mass/volume) " /> <statusCode code="completed" /> <effectiveTime value= "855935521382" /> <value unit="mg/dL" xsi:type="PQ" value="0.4" /> <referenceRange> <observationRange> <text>0.1-1.0< /text> </observationRange> </referenceRange> </ observation> </component> <component> <observation moodCode= "EVN" classCode="OBS"> <templateId root="2.16.840.1.361620.10...4.2 " /> <id nullFlavor="NA" /> <code codeSystem="local" code= "67686" displayName="Serum or plasma alkaline phosphatase measurement ( enzymatic activity/volume)" /> <statusCode code="completed" /> <effectiveTime value="232705481606" /> <value unit="U/L" xsi:type="PQ " value="97" /> <referenceRange> <observationRange> <text>40-136</text> </observationRange> </ referenceRange> </observation> </component> <component> <observation moodCode="EVN" classCode="OBS"> <templateId root= "2.16.840.1.139969.10...4.2" /> <id nullFlavor="NA" /> < code codeSystem="local" code="192" displayName="Serum or plasma aspartate aminotransferase measurement (enzymatic activity/volume)" /> < statusCode code="completed" /> <effectiveTime value="671832186232" /> <value unit="U/L" xsi:type="PQ" value="13" /> <referenceRange > <observationRange> <text>5-34</text> </ observationRange> </referenceRange> </observation> </ component> <component> <observation moodCode="EVN" classCode="OBS"> <templateId root="2.16.840.1.758637.10.20.22.4.2" /> <id nullFlavor="NA" /> <code codeSystem="local" code="1742-6" displayName= "Serum or plasma alanine aminotransferase measurement (enzymatic activity/volume )" /> <statusCode code="completed" /> <effectiveTime value= "788740771759" /> <value unit="U/L" xsi:type="PQ" value="13" /> <referenceRange> <observationRange> <text>0-55</text > </observationRange> </referenceRange> </observation > </component> <component> <observation moodCode="EVN" classCode="OBS"> <templateId root="2.16.840.1.070284.10.22.4.2" /> <id nullFlavor="NA" /> <code codeSystem="local" code="2885-2" displayName="Serum or plasma protein measurement (mass/volume)" /> < statusCode code="completed" /> <effectiveTime value="725794256329" /> <value unit="g/dL" xsi:type="PQ" value="7.5" /> < referenceRange> <observationRange> <text>6.4-8.2</text> </observationRange> </referenceRange> </observation > </component> <component> <observation moodCode="EVN" classCode="OBS"> <templateId root="2.16.840.1.490177.10.20.22.4.2" /> <id nullFlavor="NA" /> <code codeSystem="local" code="1751-7" displayName="Serum or plasma albumin measurement (mass/volume)" /> < statusCode code="completed" /> <effectiveTime value="194423724127" /> <value unit="g/dL" xsi:type="PQ" value="3.8" /> < referenceRange> <observationRange> <text>3.2-4.5</text> </observationRange> </referenceRange> </observation > </component> </organizer> </entry> <entry> <organizer moodCode= "EVN" classCode="BATTERY"> <templateId root="16.840.1.384184.10.20.22.4.1 " /> <id nullFlavor="NA" /> <code codeSystem="local" code="2777-1" displayName="Serum or plasma phosphate measurement (mass/volume)" /> < statusCode code="completed" /> <component> <observation moodCode= "EVN" classCode="OBS"> <templateId root="16.840.1.165270.10.20.22.4.2 " /> <id nullFlavor="NA" /> <code codeSystem="local" code= "2777-1" displayName="Serum or plasma phosphate measurement (mass/volume)" /> <statusCode code="completed" /> <effectiveTime value= "303155946183" /> <value unit="mg/dL" xsi:type="PQ" value="1.5" /> <interpretationCode codeSystem="local" code="" /> < referenceRange> <observationRange> <text>2.3-4.7</text> </observationRange> </referenceRange> </observation > </component> </organizer> </entry> <entry> <organizer moodCode= "EVN" classCode="BATTERY"> <templateId root="10.03.840.1.331768.10.20.22.4.1 " /> <id nullFlavor="NA" /> <code codeSystem="local" code="" displayName="Magnesium" /> <statusCode code="completed" /> <component > <observation moodCode="EVN" classCode="OBS"> <templateId root= "16.840.1.240407.10..22.4.2" /> <id nullFlavor="NA" /> < code codeSystem="local" code="" displayName="Magnesium" /> < statusCode code="completed" /> <effectiveTime value="508716768479" /> <value unit="mg/dL" xsi:type="PQ" value="1.7" /> < interpretationCode codeSystem="local" code="" /> <referenceRange> <observationRange> <text>1.8-2.4</text> </ observationRange> </referenceRange> </observation> </ component> </organizer> </entry> <entry> <organizer moodCode="EVN" classCode="BATTERY"> <templateId root="10.03.840.1.639805.10..22.4.1" /> <id nullFlavor="NA" /> <code codeSystem="local" code="44054-0" displayName="Serum or plasma lithium measurement (moles/volume)" /> < statusCode code="completed" /> <component> <observation moodCode= "EVN" classCode="OBS"> <templateId root="10.03.840.1.912021.10..22.4.2 " /> <id nullFlavor="NA" /> <code codeSystem="local" code= "49908-5" displayName="BNP level" /> <statusCode code="completed" /> <effectiveTime value="359223836275" /> <value unit="pg/mL" xsi: type="PQ" value="556.4" /> <interpretationCode codeSystem="local" code= "" /> <referenceRange> <observationRange> < text><100.0</text> </observationRange> </referenceRange> </observation> </component> </organizer> </entry> <entry> < organizer moodCode="EVN" classCode="BATTERY"> <templateId root= "216.840.1.620020.10.20.22.4.1" /> <id nullFlavor="NA" /> <code codeSystem="local" code="45820-0" displayName="Capillary blood glucose measurement by glucometer (mass/volume)" /> <statusCode code="completed" / > <component> <observation moodCode="EVN" classCode="OBS"> <templateId root="216.840.1.137342.10.20.22.4.2" /> <id nullFlavor="NA " /> <code codeSystem="local" code="78941-7" displayName="Capillary blood glucose measurement by glucometer (mass/volume)" /> <statusCode code="completed" /> <effectiveTime value="590085870503" /> < value unit="mg/dL" xsi:type="PQ" value="158" /> <interpretationCode codeSystem="local" code="" /> <referenceRange> < observationRange> <text>70-110</text> </observationRange > </referenceRange> </observation> </component> </ organizer> </entry> <entry> <organizer moodCode="EVN" classCode="BATTERY"> <templateId root="216.840.1.601037.10.20.22.4.1" /> <id nullFlavor= "NA" /> <code codeSystem="local" code="ORD3" displayName="Comprehensive Metabolic Panel" /> <statusCode code="completed" /> <component> <observation moodCode="EVN" classCode="OBS"> <templateId root= "16.840.1.588500.10..22.4.2" /> <id nullFlavor="NA" /> < code codeSystem="local" code="Res44" displayName="Albumin" /> < statusCode code="completed" /> <effectiveTime value="" /> <value unit="g/dL" xsi:type="PQ" value="4.1" /> < referenceRange> <observationRange> <text>3.6-5.1</text> </observationRange> </referenceRange> </observation > </component> <component> <observation moodCode="EVN" classCode="OBS"> <templateId root="16.840.1.213528.10...4.2" /> <id nullFlavor="NA" /> <code codeSystem="local" code="Res45" displayName="ALP" /> <statusCode code="completed" /> < effectiveTime value="" /> <value unit="U/L" xsi:type="PQ" value="95" /> <referenceRange> <observationRange> <text>35-130</text> </observationRange> </referenceRange > </observation> </component> <component> <observation moodCode="EVN" classCode="OBS"> <templateId root= "10.03.840.1.892685.10..22.4.2" /> <id nullFlavor="NA" /> < code codeSystem="local" code="Res46" displayName="ALT" /> <statusCode code="completed" /> <effectiveTime value="" /> < value unit="U/L" xsi:type="PQ" value="10" /> <referenceRange> <observationRange> <text>6-45</text> </ observationRange> </referenceRange> </observation> </ component> <component> <observation moodCode="EVN" classCode="OBS"> <templateId root="216.840.1.930835.10.22.4.2" /> <id nullFlavor="NA" /> <code codeSystem="local" code="Res61" displayName= "Anion Gap" /> <statusCode code="completed" /> <effectiveTime value="" /> <value unit="" xsi:type="PQ" value="16" /> <interpretationCode codeSystem="local" code="H" /> < referenceRange> <observationRange> <text>6-14</text> </observationRange> </referenceRange> </observation> </component> <component> <observation moodCode="EVN" classCode= "OBS"> <templateId root="216.840.1.466443...4.2" /> < id nullFlavor="NA" /> <code codeSystem="local" code="Res48" displayName ="AST" /> <statusCode code="completed" /> <effectiveTime value ="" /> <value unit="U/L" xsi:type="PQ" value="12" /> <referenceRange> <observationRange> <text>2-40</text > </observationRange> </referenceRange> </observation > </component> <component> <observation moodCode="EVN" classCode="OBS"> <templateId root="216.840.1.602196.10.22.4.2" /> <id nullFlavor="NA" /> <code codeSystem="local" code="Res26" displayName="BUN" /> <statusCode code="completed" /> < effectiveTime value="" /> <value unit="mg/dL" xsi:type="PQ " value="13" /> <referenceRange> <observationRange> <text>5-25</text> </observationRange> </referenceRange > </observation> </component> <component> <observation moodCode="EVN" classCode="OBS"> <templateId root= "10.03.840.1.984157.10.20.22.4.2" /> <id nullFlavor="NA" /> < code codeSystem="local" code="Res5" displayName="Calcium" /> < statusCode code="completed" /> <effectiveTime value="" /> <value unit="mg/dL" xsi:type="PQ" value="9.8" /> < referenceRange> <observationRange> <text>8.3-10.4</text > </observationRange> </referenceRange> </observation > </component> <component> <observation moodCode="EVN" classCode="OBS"> <templateId root="840.1.087226.1022.4.2" /> <id nullFlavor="NA" /> <code codeSystem="local" code="Res21" displayName="Chloride" /> <statusCode code="completed" /> < effectiveTime value="" /> <value unit="mmol/L" xsi:type="PQ " value="100" /> <referenceRange> <observationRange> <text>95-114</text> </observationRange> </ referenceRange> </observation> </component> <component> <observation moodCode="EVN" classCode="OBS"> <templateId root= "840.1.597952.1022.4.2" /> <id nullFlavor="NA" /> < code codeSystem="local" code="Res49" displayName="CO2" /> <statusCode code="completed" /> <effectiveTime value="" /> < value unit="mEq/L" xsi:type="PQ" value="22" /> <referenceRange> <observationRange> <text>22-33</text> </ observationRange> </referenceRange> </observation> </ component> <component> <observation moodCode="EVN" classCode="OBS"> <templateId root="216.840.1.777642.10.22.4.2" /> <id nullFlavor="NA" /> <code codeSystem="local" code="Xcd205" displayName= "Creat" /> <statusCode code="completed" /> <effectiveTime value="" /> <value unit="mg/dL" xsi:type="PQ" value="0.79" /> <referenceRange> <observationRange> <text> 0.50-1.50</text> </observationRange> </referenceRange> </observation> </component> <component> <observation moodCode="EVN" classCode="OBS"> <templateId root= "216.840.1.783008.10..4.2" /> <id nullFlavor="NA" /> < code codeSystem="local" code="Ftd496" displayName="eGFR" /> < statusCode code="completed" /> <effectiveTime value="" /> <value unit="mL/min/1.73m2" xsi:type="PQ" value="76" /> < referenceRange> <observationRange> <text>>59</text> </observationRange> </referenceRange> </observation> </component> <component> <observation moodCode="EVN" classCode ="OBS"> <templateId root="216.840.1.339252.10..22.4.2" /> < id nullFlavor="NA" /> <code codeSystem="local" code="Res7" displayName= "Globulin" /> <statusCode code="completed" /> <effectiveTime value="" /> <value unit="g/dL" xsi:type="PQ" value="3.5" / > <referenceRange> <observationRange> <text>2.3 -3.5</text> </observationRange> </referenceRange> </ observation> </component> <component> <observation moodCode= "EVN" classCode="OBS"> <templateId root="216.840.1.497860.10.20.22.4.2 " /> <id nullFlavor="NA" /> <code codeSystem="local" code= "Res60" displayName="Glucose" /> <statusCode code="completed" /> <effectiveTime value="" /> <value unit="mg/dL" xsi:type ="PQ" value="104" /> <referenceRange> <observationRange> <text>70-110</text> </observationRange> </ referenceRange> </observation> </component> <component> <observation moodCode="EVN" classCode="OBS"> <templateId root= "16.840.1.997976.10.20.22.4.2" /> <id nullFlavor="NA" /> < code codeSystem="local" code="Res52" displayName="Osmo" /> <statusCode code="completed" /> <effectiveTime value="" /> < value unit="" xsi:type="PQ" value="278" /> <interpretationCode codeSystem="local" code="L" /> <referenceRange> < observationRange> <text>280-295</text> </ observationRange> </referenceRange> </observation> </ component> <component> <observation moodCode="EVN" classCode="OBS"> <templateId root="216.840.1.165403.10..22.4.2" /> <id nullFlavor="NA" /> <code codeSystem="local" code="Res20" displayName= "Potassium" /> <statusCode code="completed" /> <effectiveTime value="" /> <value unit="mmol/L" xsi:type="PQ" value="4.4" /> <referenceRange> <observationRange> <text> 3.5-5.3</text> </observationRange> </referenceRange> </observation> </component> <component> <observation moodCode= "EVN" classCode="OBS"> <templateId root="16.840.1.889504.10.22.4.2 " /> <id nullFlavor="NA" /> <code codeSystem="local" code= "Res19" displayName="Sodium" /> <statusCode code="completed" /> <effectiveTime value="" /> <value unit="mmol/L" xsi:type ="PQ" value="134" /> <referenceRange> <observationRange> <text>134-148</text> </observationRange> </ referenceRange> </observation> </component> <component> <observation moodCode="EVN" classCode="OBS"> <templateId root= "16.840.1.636611.10..22.4.2" /> <id nullFlavor="NA" /> < code codeSystem="local" code="Res51" displayName="TBil" /> <statusCode code="completed" /> <effectiveTime value="" /> < value unit="mg/dL" xsi:type="PQ" value="< 0.2" /> <referenceRange> <observationRange> <text /> </ observationRange> </referenceRange> </observation> </ component> <component> <observation moodCode="EVN" classCode="OBS"> <templateId root="2.16.840.1.586774.10.20.22.4.2" /> <id nullFlavor="NA" /> <code codeSystem="local" code="Res24" displayName= "TP" /> <statusCode code="completed" /> <effectiveTime value= "841634975699" /> <value unit="g/dL" xsi:type="PQ" value="7.6" /> <referenceRange> <observationRange> <text>6.0-8.3</ text> </observationRange> </referenceRange> </ observation> </component> </organizer> </entry></section> Encounters ACCT No. Visit Date/Time Discharge Status Pt. Type Provider Facility Loc./Unit Complaint [id number] 11/18/2016 11:00:00 11/18/2016 12:00:00 DIS Outpatient [id number] 02/20/2016 22:36:00 02/20/2016 23:59:59 CLS [facility] ED [id number] 04/22/2017 19:08:00 04/22/2017 22:06:00 DIS Emergency Garrett Fam DO [facility] W.RADHA [id number] 04/13/2017 04:38:00 04/13/2017 07:45:00 DIS Emergency Bogdan HAYES, Rosalino Sands [facility] WEDS [id number] 03/19/2017 01:00:00 03/20/2017 16:25:00 DIS Inpatient Luzma HAYES, Balbina Tang [facility] W.4CE [id number] 02/14/2017 09:49:00 02/14/2017 10:04:00 DIS Emergency Morena HAYES, Lynn Sorto [facility].EDRC [id number] 11/26/2016 04:40:00 11/26/2016 09:12:00 DIS Emergency Serafin [facility] [id number] 11/22/2016 22:01:00 11/23/2016 01:06:00 DIS Emergency Rodger HAYES, Richard Horton [facility] [id number] 07/11/2016 09:15:00 07/11/2016 09:15:00 DIS Outpatient Davon HAYES, Devin Rey [facility] [id number] 05/30/2016 21:12:00 05/30/2016 23:53:00 DIS Emergency Dani HAYES, Moe [facility] W.RADHA [id number] 05/27/2016 22:09:00 05/28/2016 01:19:00 DIS Emergency Yony HAYES, Stanley [facility].RADHA [id number] 04/27/2016 17:07:00 04/27/2016 19:44:00 DIS [id number] 12/18/2015 11:03:00 12/18/2015 15:40:00 DIS [id number] 10/11/2015 11:14:00 10/11/2015 15:19:00 DIS Emergency Lissa HAYES, [facility] W.RADHA [id number] 08/24/2015 19:41:00 08/24/2015 21:57:00 DIS Emergency Pedro BLOOM, Alton [facility] [id number] 04/12/2015 05:57:00 04/12/2015 06:58:00 DIS Emergency Maver[id number] 03/09/2015 18:41:00 03/09/2015 20:37:00 DIS Emergency [id number] 02/22/2015 12:15:00 02/24/2015 20:45:00 DIS Inpatient [id number] 01/30/2016 08:56:00 Document Registration [id number] 09/18/2016 07:52:00 09/18/2016 10:50:00 DIS Outpatient Gayathri Mohan [facility] DS Gastro egdp [id number] 09/09/2016 12:57:00 09/09/2016 23:59:00 DIS Outpatient Gayathri Mohan [facility] Mur Gasto Chronic GERD Former Prateek pt. [id number] 10/18/2015 08:54:00 10/18/2015 10:55:00 DIS Outpatient Fidencio Chandra [facility] DS Gastro COMBOP [id number] 10/04/2015 13:44:00 10/04/2015 23:59:00 DIS Outpatient Fidencio Chandra [facility] Mur Gasto NPV HERNIA COLON SCREEN [id number] 11/19/2017 06:19:00 Document Registration [id number] 04/04/2017 15:05:24 ACT Document Registration [id number] 06/17/2017 11:14:00 06/17/2017 [facility]59[id number] 01/13/2018 17:00:00 01/13/2018 23:59:00 DIS Outpatient RENY COLLAZO [id number] 11/18/2017 12:26:00 11/18/2017 23:59:00 DIS Outpatient RENY COLLAZO [id number] 10/15/2017 15:00:00 10/15/2017 23:59:00 DIS Outpatient RENY COLLAZO [id number] 10/15/2017 13:32:00 10/15/2017 23:59:00 DIS Outpatient RENY COLLAZO [id number] 04/04/2016 15:19:49 04/04/2016 23:59:59 CLS Outpatient Max Brooke [id number] 05/25/2017 11:12:00 05/25/2017 16:47:00 DIS Emergency Nickel,Nenitai [facility] ED eder bell [id number] 12/05/2016 11:18:00 12/05/2016 23:59:00 DIS Outpatient Serena Morfin [facility] Pulm Func J45.40- Asthma [id number] 10/17/2016 10:28:00 10/17/2016 23:59:00 DIS Outpatient Mays Ronald [facility] Mammo Screening [id number] 07/04/2015 15:21:00 07/04/2015 23:59:00 DIS Outpatient April Rolle MD [facility] Diag Rad Chronic Back Pain [id number] 06/29/2015 09:51:00 06/29/2015 12:17:00 DIS Emergency Alton Vasquez DO [facility] ED n/v [id number] 09/10/2016 05:15:48 Document Registration [id number] 06/30/2015 05:16:36 Document Registration [id number] 03/30/2016 13:00:00 03/30/2016 23:59:59 [facility] [id number] 05/28/2017 13:34:03 05/28/2017 15:05: 09 DIS Outpatient SERENA MORFIN N.P.[id number] 02/27/2017 14:36:37 02/27/2017 15:11: 50 DIS Outpatient JAYA WHITTAKER [id number] 12/12/2016 13:42:04 12/12/2016 14:34: 38 DIS Outpatient SERENA MORFIN N.P.[id number] 11/14/2016 13:50:37 11/14/2016 14:01: 08 DIS Outpatient SERENA MORFIN N.P.[id number] 10/09/2016 08:09:59 10/09/2016 09:52: 28 DIS Outpatient SERENA MORFIN N.P.[id number] 09/19/2016 09:01:43 09/19/2016 10:16: 48 DIS Outpatient SERENA MORFIN N.P.[id number] 07/04/2016 10:25:30 07/04/2016 11:15: 08 DIS Outpatient SERENA MORFIN N.P.[id number] 05/20/2016 15:11:54 05/20/2016 16:24: 35 DIS Outpatient SERENA MORFIN N.P. [id number] 06/17/2017 11:49:00 Document Registration [id number] 06/26/2017 10:15:00 06/26/2017 23:59:59 CLS Outpatient CHRISTIN [facility] [id number] 06/23/2017 11:28:00 06/23/2017 23:59:59 CLS Outpatient [facility]STIN [facility] [facility] [id number] 06/16/2017 10:24:00 06/16/2017 23:59:59 CLS Outpatient CHRISTIN [facility] [id number] 07/23/2017 11:21:00 Document Registration [id number] 06/19/2017 15:15:00 Document Registration [id number] 06/17/2017 11:17:00 06/17/2017 23:59:59 CLS Emergency YESSENIA BERRIOS MD [facility] ED [id number] 03/30/2016 15:03:00 03/31/2016 13:21:00 DIS Inpatient BRISSA SO DO [facility] 3SE [id number] 02/20/2016 22:39:00 02/21/2016 01:40:00 DIS Emergency DIXON ROTHMAN MD [facility] ED [id number] 03/09/2018 14:25:00 03/09/2018 23:59:59 CLS Outpatient SILVIA MAURICE MD [facility] ONC [id number] 11/27/2017 13:39:00 02/25/2018 00:01:00 DIS Outpatient SILVIA MAURICE MD [facility] ONC [id number] 02/19/2018 09:12:00 02/19/2018 13:22:00 DIS Outpatient RENY COLLAZO MD [facility] REHAB CERVICAL DDD AND NECK PAIN [id number] 02/11/2018 14:42:00 02/11/2018 23:59:59 CLS Outpatient RENY COLLAZO MD [facility] RAD LEFT PNEUMONIA [id number] 01/04/2018 13:45:00 2018 15:00:00 DIS Inpatient LILY DEAL MD [facility] 4TH SEVERE SEPSIS [id number] 11/24/2017 08:32:00 11/24/2017 23:59:59 CLS Outpatient VALE HAYES, RENY Sorto [facility] RAD SCREENING CERVILAGIA [id number] 12/12/2016 15:44:01 12/12/2016 23:59:59 CLS Outpatient
--- NOTE | 2018-04-20 14:39 | ED Integumentary General ---
General Chief Complaint: Bite-Animal/Human/Insect Stated Complaint: SPIDER BITE GOT WORSE Nursing Triage Note: WAS SEEN YESTERDAY FOR POSSIBLE SPIDER BITE LEFT POST LEG. PT THINKS IT IS WORSE TODAY. Source: patient Exam Limitations: no limitations History of Present Illness Date Seen by Provider: Apr 20, 2018 Time Seen by Provider: 14:37 Initial Comments Patient is a 53-year-old female who was seen yesterday in the emergency room for an abscess to her left posterior thigh. She was given a shot of Rocephin IM 1 g and was placed on Bactrim for 10 days. She reports that the infection has grown outside of the area that was marked yesterday. She reports that her pain is much better today and that the wound is still open and draining. She denies fever or chills. Timing/Duration: yesterday Location: extremities (left posterior thigh) Possible Cause: no cause identified Associated Symptoms: No fever Allergies and Home Medications Allergies Coded Allergies: No Known Drug Allergies (Unverified , 01/04/18) Home Medications Albuterol Sulfate 1 Puff Puff, 2 PUFF INH Q4H PRN for SHORTNESS OF BREATH, ( Reported) Baclofen 10 Mg Tablet, 10 MG PO TID, (Reported) Budesonide/Formoterol Fumarate 10.2 Gm Hfa.aer.ad, 2 PUFF INH BID, (Reported) Cefdinir 300 Mg Capsule, 1 CAP PO twice a day Prescribed by: NARCISO GONZALES on 01/06/18 1346 Dexlansoprazole 60 Mg Cap.bp, 60 MG PO DAILY, (Reported) Diclofenac Sodium 75 Mg Tablet.dr, 75 MG PO BID, (Reported) Lisinopril 10 Mg Tablet, 10 MG PO DAILY, (Reported) Lurasidone HCl 20 Mg Tablet, 20 MG PO HS, (Reported) Meloxicam 15 Mg Tablet, 15 MG PO HS, (Reported) Metformin HCl 500 Mg Tablet, 500 MG PO BID, (Reported) Metoprolol Tartrate 25 Mg Tablet, 12.5 MG PO BID, (Reported) TAKES 1/2 (25MG) TABLETS Montelukast Sodium 10 Mg Tablet, 10 MG PO DAILY, (Reported) [place] 3 Polyunsat Fatty Acids 1,000 Mg Cap, 1,000 MG PO DAILY, (Reported) Ondansetron 8 Mg Tab.rapdis, 8 MG PO TID PRN for NAUSEA/VOMITING-1ST LINE, ( Reported) Prazosin HCl 1 Mg Capsule, 2 MG PO HS, (Reported) TAKES 2 (1MG) CAPSULES Ranitidine HCl 300 Mg Tablet, 300 MG PO HS, (Reported) Sertraline HCl 100 Mg Tablet, 200 MG PO HS, (Reported) TAKES 2 (100MG) TABLETS Simvastatin 20 Mg Tablet, 20 MG PO HS, (Reported) Sulfamethoxazole/Trimethoprim 1 Each Tablet, 1 EACH PO BID Prescribed by: KELLY BERRY on 04/19/18 5977 Patient Home Medication List Home Medication List Reviewed: Yes Review of Systems Review of Systems Constitutional: see HPI; No chills, No fever Skin: see HPI, other (abscess to the left posterior thigh.) Past Hkwrwpc-Zypqvf-Licete Hx Past Med/Social Hx: Reviewed Nursing Past Med/Soc Hx Patient Social History Recent Foreign Travel: No Contact w/Someone Who Travel: No Recent Infectious Disease Expo: No Recent Hopitalizations: No Immunizations Up To Date Tetanus Booster (TDap): Unknown Seasonal Allergies Seasonal Allergies: No Past Medical History Surgeries: Yes Hysterectomy, Orthopedic Respiratory: Yes COPD Cardiac: Yes Hypertension Neurological: No Genitourinary: No Gastrointestinal: Yes Hiatal Hernia Musculoskeletal: Yes Scoliosis, Chronic Back Pain Endocrine: Yes Diabetes, Non-Insulin dep HEENT: No Cancer: No Integumentary: No Family Medical History Reviewed Nursing Family Hx Unable to obtain due to AMS Physical Exam Vital Signs Vital Signs - First Documented 04/20/18 14:30 Temp 97.7 Pulse 76 Resp 16 B/P (MAP) 124/64 (84) Pulse Ox 99 O2 Delivery Room Air Capillary Refill : Less Than 3 Seconds General Appearance: WD/WN, no apparent distress Cardiovascular: normal peripheral pulses, regular rate, rhythm, no edema, no gallop, no JVD, no murmur Respiratory: chest non-tender, lungs clear, normal breath sounds, no respiratory distress, no accessory muscle use Gastrointestinal: normal bowel sounds, non tender, soft, no organomegaly, no pulsatile mass Neurologic/Psychiatric: alert, normal mood/affect, oriented x 3 Skin: normal color, warm/dry Skin Problem Location: lower extremities (left posterior thigh) Skin Problem Character: abscess (there is a large area of induration and thickening to her posterior thigh. It is measuring 12 cm x 16 cm with a central punctum 2 cm x 2 cm, there is no fluctuation. The wound is still open and draining as it was yesterday.) Progress/Results/Core Measures Results/Orders Lab Results Laboratory Tests Test 04/20/18 14:50 Range/Units White Blood Count 8.2 4.3-11.0 10^3/uL Red Blood Count 4.27 L 4.35-5.85 10^6/uL Hemoglobin 11.7 11.5-16.0 G/DL Hematocrit 34 L 35-52 % Mean Corpuscular Volume 81 80-99 FL Mean Corpuscular Hemoglobin 27 25-34 PG Mean Corpuscular Hemoglobin Concent 34 32-36 G/DL Red Cell Distribution Width 22.2 H 10.0-14.5 % Platelet Count 294 130-400 10^3/uL Mean Platelet Volume 8.9 7.4-10.4 FL Neutrophils (%) (Auto) 69 42-75 % Lymphocytes (%) (Auto) 18 12-44 % Monocytes (%) (Auto) 12 0-12 % Eosinophils (%) (Auto) 2 0-10 % Basophils (%) (Auto) 1 0-10 % Neutrophils # (Auto) 5.6 1.8-7.8 X 10^3 Lymphocytes # (Auto) 1.5 1.0-4.0 X 10^3 Monocytes # (Auto) 1.0 0.0-1.0 X 10^3 Eosinophils # (Auto) 0.1 0.0-0.3 10^3/uL Basophils # (Auto) 0.0 0.0-0.1 10^3/uL Sodium Level 135 135-145 MMOL/L Potassium Level 3.8 3.6-5.0 MMOL/L Chloride Level 105 98-107 MMOL/L Carbon Dioxide Level 18 L 21-32 MMOL/L Anion Gap 12 5-14 MMOL/L Blood Urea Nitrogen 19 H 7-18 MG/DL Creatinine 1.00 0.60-1.30 MG/DL Estimat Glomerular Filtration Rate 58 BUN/Creatinine Ratio 19 Glucose Level 174 H 70-105 MG/DL Lactic Acid Level 1.92 0.50-2.00 MMOL/L Calcium Level 9.3 8.5-10.1 MG/DL Corrected Calcium 9.3 8.5-10.1 MG/DL Total Bilirubin 0.2 0.1-1.0 MG/DL Aspartate Amino Transf (AST/SGOT) 11 5-34 U/L Alanine Aminotransferase (ALT/SGPT) 11 0-55 U/L Alkaline Phosphatase 103 40-136 U/L Total Protein 7.1 6.4-8.2 GM/DL Albumin 4.0 3.2-4.5 GM/DL My Orders Orders - JAMALKELLY Cbc With Automated Diff (04/20/18 14:36) Comprehensive Metabolic Panel (04/20/18 14:36) Blood Culture (04/20/18 14:36) Saline Lock/Iv-Start (04/20/18 14:36) Saline Lock/Iv-Start (04/20/18 14:36) Lactic Acid Analyzer (04/20/18 14:36) Ondansetron Injection (Zofran Injectio (04/20/18 15:00) Ceftriaxone For Iv Use (Rocephin For I (04/20/18 15:30) Medications Given in ED Current Medications Medications Dose Ordered Sig/Katrina Route Start Time Stop Time Status Last Admin Dose Admin Ceftriaxone Sodium 1000 mg/ Sodium Chloride 50 ml @ 100 mls/hr ONCE ONCE IV 04/20/18 15:30 04/20/18 15:59 DC 04/20/18 15:42 100 MLS/HR Ondansetron HCl 8 mg ONCE ONCE IVP 04/20/18 15:00 04/20/18 15:01 DC 04/20/18 14:55 8 MG Vital Signs/I&O 04/20/18 14:30 Temp 97.7 Pulse 76 Resp 16 B/P (MAP) 124/64 (84) Pulse Ox 99 O2 Delivery Room Air Blood Pressure Mean: 84 Progress Progress Note : Time: 14:46 Progress Note Patient started having a coughing fit and became nauseated and vomited in the room at this time. Zofran has been ordered for nausea and vomiting. 1500: I called lab recheck on wound culture reports from yesterday. They report that the preliminary result is staph aureus. Her Bactrim that she received yesterday should be appropriate antibiotic coverage. 1515: Patient's nausea has resolved. She reports that she has not had any nausea or vomiting. I believe this is unrelated to her abscess. I think that maybe she became choked up with a coughing fit. 1610: Have informed the patient and normal laboratory findings. I gave her an additional dose of Rocephin IV. I instructed her to keep her appointment with Dr. Valentine previously scheduled. Return precautions were given. She agrees with plans for discharge. Departure Impression Primary Impression: Abscess Disposition: 01 HOME, SELF-CARE Condition: Stable/Unchanged Departure-Patient Inst. Decision time for Depature: 16:15 Referrals: RENY COLLAZO MD (PCP/Family) Primary Care Physician Patient Instructions: ABSCESS Add. Discharge Instructions: Continue your antibiotics as previously prescribed. You may use ibuprofen and Tylenol as directed by the bottle for pain. Keep the wound covered with a loose gauze and allow it to continue to drain. Keep appointment with Dr. Romeo as scheduled on 04/22/18. Return back to the emergency room for any worsening symptoms or concerns as needed. All discharge instructions reviewed with patient and/or family. Voiced understanding. KELLY BERRY Apr 20, 2018 14:39
[2018-04-20 14:59] LABS: BASOPHILS % (AUTO) 1 % (0-10); EOSINOPHILS # (AUTO) 0.1 10^3/uL (0.0-0.3); EOSINOPHILS % (AUTO) 2 % (0-10); HEMATOCRIT 34 % (35-52); HEMOGLOBIN 11.7 G/DL (11.5-16.0); LYMPHOCYTES # (AUTO) 1.5 X 10^3 (1.0-4.0); LYMPHOCYTES % (AUTO) 18 % (12-44); MEAN CORPUSCULAR HEMOGLOBIN 27 PG (25-34); MEAN CORPUSCULAR HGB CONC 34 G/DL (32-36); MEAN CORPUSCULAR VOLUME 81 FL (80-99); MEAN PLATELET VOLUME 8.9 FL (7.4-10.4); MONOCYTES % (AUTO) 12 % (0-12); NEUTROPHILS # (AUTO) 5.6 X 10^3 (1.8-7.8); NEUTROPHILS % (AUTO) 69 % (42-75); PLATELET COUNT 294 10^3/uL (130-400); RED BLOOD COUNT 4.27 10^6/uL (4.35-5.85); RED CELL DISTRIBUTION WIDTH 22.2 % (10.0-14.5); WHITE BLOOD COUNT 8.2 10^3/uL (4.3-11.0)
[2018-04-20] MEDS ORDERED: ONDANSETRON 4 MG/2 ML (SDV) Z0FRAN IVP ONE (15:00)
[2018-04-20 15:19] LABS: BILIRUBIN,TOTAL 0.2 MG/DL (0.1-1.0); CALCIUM 9.3 MG/DL (8.5-10.1); POTASSIUM 3.8 MMOL/L (3.6-5.0); TOTAL PROTEIN 7.1 GM/DL (6.4-8.2)
[2018-04-20] MEDS ORDERED: cefTRIAXone FOR IV USE 1,000 MG in NS (IVPB) 50 ML IV ONE (15:30)
[2018-04-20 16:26] VITALS: BP 119/99
== END 2018-04-20 16:26 | disposition home or self-care (01) ==
LOC: EDUNIT# 14:25 → ER 14:27
DX: L02.416 Cutaneous abscess of left lower limb (principal); J44.9 Chronic obstructive pulmonary disease, unspecified; I10 Essential (primary) hypertension; E11.9 Type 2 diabetes mellitus without complications; Z87.19 Personal history of other diseases of the digestive system; Z79.84 Long term (current) use of oral hypoglycemic drugs; Z90.710 Acquired absence of both cervix and uterus
CPT/HCPCS: 36415; 80053; 83605; 85025; 87040; 96374; 96375; 99281

== ENCOUNTER 2018-04-21 09:31 | Outpatient (RCR) | payer MEDICAID ==
[2018-03-09 14:36] LABS: BASOPHILS % (AUTO) 0 % (0-10); EOSINOPHILS % (AUTO) 0 % (0-10); HEMATOCRIT 28 % (35-52); HEMOGLOBIN 8.7 G/DL (11.5-16.0); LYMPHOCYTES # (AUTO) 0.9 X 10^3 (1.0-4.0); LYMPHOCYTES % (AUTO) 11 % (12-44); MEAN CORPUSCULAR HEMOGLOBIN 24 PG (25-34); MEAN CORPUSCULAR HGB CONC 32 G/DL (32-36); MEAN CORPUSCULAR VOLUME 77 FL (80-99); MEAN PLATELET VOLUME 8.4 FL (7.4-10.4); MONOCYTES # (AUTO) 0.5 X 10^3 (0.0-1.0); MONOCYTES % (AUTO) 6 % (0-12); NEUTROPHILS # (AUTO) 6.5 X 10^3 (1.8-7.8); NEUTROPHILS % (AUTO) 83 % (42-75); PLATELET COUNT 480 10^3/uL (130-400); RED BLOOD COUNT 3.59 10^6/uL (4.35-5.85); RED CELL DISTRIBUTION WIDTH 17.6 % (10.0-14.5); WHITE BLOOD COUNT 7.9 10^3/uL (4.3-11.0)
[2018-03-09 14:54] LABS: ALBUMIN 3.5 GM/DL (3.2-4.5); BILIRUBIN,TOTAL 0.2 MG/DL (0.1-1.0); CALCIUM 8.9 MG/DL (8.5-10.1); CREATININE SERUM 1.04 MG/DL (0.60-1.30); POTASSIUM 4.7 MMOL/L (3.6-5.0); TOTAL PROTEIN 6.1 GM/DL (6.4-8.2)
[~2018-04-21 09:31] MED LIST changes: +FERRIC CARBOXYMALTOSE (CANCER) 750 MG in NS (IVPB) CANCER CENTER 250 ML IV SCH
== END 2018-06-07 | disposition home or self-care (01) ==
LOC: ONC 09:31
PROVIDERS: ATTEND Internal Medicine Hematology & Oncology
DX: D50.9 Iron deficiency anemia, unspecified (principal); D47.3 Essential (hemorrhagic) thrombocythemia; E11.9 Type 2 diabetes mellitus without complications; K44.9 Diaphragmatic hernia without obstruction or gangrene; Z79.899 Other long term (current) drug therapy
CPT/HCPCS: 36415; 80053; 82728; 83540; 85025; 96365; 99213

== ENCOUNTER 2018-07-08 13:45 | Emergency (ER) | payer MEDICAID ==
[~2018-07-08] VITALS: Ht 149.9 cm; Wt 49.0 kg
[~2018-07-08 13:45] MED LIST changes: -FERRIC CARBOXYMALTOSE (CANCER) 750 MG in NS (IVPB) CANCER CENTER 250 ML IV SCH
[2018-07-08] MEDS ORDERED: SULF1TAB35 PO (14:58)
--- NOTE | 2018-07-08 14:58 | ED Integumentary General ---
General Chief Complaint: Skin/Wound Problems Stated Complaint: LFT. ARM ABCESS Nursing Triage Note: ARRIVED VIA AMB TO ROOM 08. STATES SHE HAS A BOIL ON HER LEFT LOWER ARM. Source: patient Exam Limitations: no limitations History of Present Illness Date Seen by Provider: Jul 08, 2018 Time Seen by Provider: 14:20 Initial Comments Patient is a 53-year-old female who presents to emergency room with complaints of a boil to her left forearm that started 5 days ago. She reports that she's had boils in the past. She is nauseated today but she is always nauseated and takes Phenergan 3 times a day for the nausea. Timing/Duration: other (5 days) Location: extremities Possible Cause: no cause identified Associated Symptoms: fever Allergies and Home Medications Allergies Coded Allergies: No Known Drug Allergies (Unverified , 01/04/18) Home Medications Albuterol Sulfate 1 Puff Puff, 2 PUFF INH Q4H PRN for SHORTNESS OF BREATH, ( Reported) Baclofen 10 Mg Tablet, 10 MG PO TID, (Reported) Budesonide/Formoterol Fumarate 10.2 Gm Hfa.aer.ad, 2 PUFF INH BID, (Reported) Cefdinir 300 Mg Capsule, 1 CAP PO twice a day Prescribed by: NARCISO GONZALES on 01/06/18 1346 Dexlansoprazole 60 Mg Cap.bp, 60 MG PO DAILY, (Reported) Diclofenac Sodium 75 Mg Tablet.dr, 75 MG PO BID, (Reported) Lisinopril 10 Mg Tablet, 10 MG PO DAILY, (Reported) Lurasidone HCl 20 Mg Tablet, 20 MG PO HS, (Reported) Meloxicam 15 Mg Tablet, 15 MG PO HS, (Reported) Metformin HCl 500 Mg Tablet, 500 MG PO BID, (Reported) Metoprolol Tartrate 25 Mg Tablet, 12.5 MG PO BID, (Reported) TAKES 1/2 (25MG) TABLETS Montelukast Sodium 10 Mg Tablet, 10 MG PO DAILY, (Reported) [place] 3 Polyunsat Fatty Acids 1,000 Mg Cap, 1,000 MG PO DAILY, (Reported) Ondansetron 8 Mg Tab.rapdis, 8 MG PO TID PRN for NAUSEA/VOMITING-1ST LINE, ( Reported) Prazosin HCl 1 Mg Capsule, 2 MG PO HS, (Reported) TAKES 2 (1MG) CAPSULES Ranitidine HCl 300 Mg Tablet, 300 MG PO HS, (Reported) Sertraline HCl 100 Mg Tablet, 200 MG PO HS, (Reported) TAKES 2 (100MG) TABLETS Simvastatin 20 Mg Tablet, 20 MG PO HS, (Reported) Sulfamethoxazole/Trimethoprim 1 Each Tablet, 1 EACH PO BID Prescribed by: KELLY BERRY on 04/19/18 1527 Sulfamethoxazole/Trimethoprim 1 Each Tablet, 1 EACH PO BID Prescribed by: KELLY BERRY on 07/08/18 1458 Patient Home Medication List Home Medication List Reviewed: Yes Review of Systems Review of Systems Constitutional: see HPI; No chills; fever Skin: see HPI, lesions (abscess to the left forearm) All Other Systems Reviewed Negative Unless Noted: Yes Past Clcasfv-Tsmsfj-Rzbflz Hx Past Med/Social Hx: Reviewed Nursing Past Med/Soc Hx Patient Social History Recent Foreign Travel: No Contact w/Someone Who Travel: No Recent Infectious Disease Expo: No Recent Hopitalizations: No Immunizations Up To Date Tetanus Booster (TDap): Unknown Seasonal Allergies Seasonal Allergies: No Past Medical History Surgeries: Yes Hysterectomy, Orthopedic Respiratory: Yes COPD Cardiac: Yes Hypertension Neurological: No Genitourinary: No Gastrointestinal: Yes Hiatal Hernia Musculoskeletal: Yes Scoliosis, Chronic Back Pain Endocrine: Yes Diabetes, Non-Insulin dep HEENT: No Cancer: No Integumentary: No Family Medical History Reviewed Nursing Family Hx Unable to obtain due to AMS Physical Exam Vital Signs Vital Signs - First Documented 07/08/18 14:14 Temp 100.5 Pulse 108 Resp 16 B/P (MAP) 126/76 (93) Pulse Ox 94 O2 Delivery Room Air Capillary Refill : Less Than 3 Seconds General Appearance: WD/WN, no apparent distress Cardiovascular: normal peripheral pulses, regular rate, rhythm, no edema, no gallop, no JVD, no murmur Respiratory: chest non-tender, lungs clear, normal breath sounds, no respiratory distress, no accessory muscle use Extremities: normal range of motion, non-tender, normal inspection, no pedal edema, no calf tenderness, normal capillary refill, pelvis stable Neurologic/Psychiatric: alert, normal mood/affect Skin: normal color, warm/dry Skin Problem Location: upper extremities (and left forearm) Skin Problem Character: abscess (there is a 3 cm in diameter area of erythema with a 1 cm x 1 cm central area punctum that is open and draining. Culture was sent.) Progress/Results/Core Measures Results/Orders My Orders Orders - KELLY BERRY Ceftriaxone For Im Use (Rocephin For Im (07/08/18 14:45) Ondansetron Oral Dissolve Tab (Zofran O (07/08/18 14:45) Hydrocodone/Apap 5/325 Tablet (Lortab 5 (07/08/18 14:45) Wound Culture (07/08/18 14:58) Lidocaine 1% Inj 20 Ml (Xylocaine 1% Inj (07/08/18 15:15) Ceftriaxone For Iv Use (Rocephin For I (07/08/18 15:10) Medications Given in ED Current Medications Medications Dose Ordered Sig/Katrina Route Start Time Stop Time Status Last Admin Dose Admin Acetaminophen/ Hydrocodone Bitart 1 tab ONCE ONCE PO 07/08/18 14:45 07/08/18 14:46 DC 07/08/18 15:06 1 TAB Lidocaine HCl 2.1 ml ONCE ONCE INJ 07/08/18 15:15 07/08/18 15:16 DC 07/08/18 15:17 2.1 ML Ondansetron Base 8 mg ONCE ONCE PO 07/08/18 14:45 07/08/18 14:46 DC 07/08/18 15:06 8 MG Vital Signs/I&O 07/08/18 07/08/18 14:14 16:13 Temp 100.5 Pulse 108 75 Resp 16 16 B/P (MAP) 126/76 (93) 104/48 (66) Pulse Ox 94 98 O2 Delivery Room Air Blood Pressure Mean: 93 Departure Impression Primary Impression: Abscess Disposition: 01 HOME, SELF-CARE Condition: Stable/Unchanged Departure-Patient Inst. Decision time for Depature: 14:57 Referrals: RENY COLLAZO MD (PCP/Family) Primary Care Physician Patient Instructions: Skin Abscess Add. Discharge Instructions: Medications as directed. Tylenol and ibuprofen as needed for pain and fever. Continue your Phenergan as needed for nausea. Follow-up with her primary care provider within 1 week for recheck. Return back to the emergency room for any worsening symptoms or concerns as needed. All discharge instructions reviewed with patient and/or family. Voiced understanding. Scripts Sulfamethoxazole/Trimethoprim (Bactrim Ds Tablet) 1 Each Tablet 1 EACH PO BID for 7 Days, #14 TAB Prov: KELLY BERRY 07/08/18 KELLY BERRY Jul 08, 2018 14:58
[2018-07-08] MEDS: HYDROcodone/APAP 5 MG/325 MG (LORTAB) TAB PO ONE (15:06)
[2018-07-08] MEDS: ONDANSETRON 8 MG (ZOFRAN) ORAL DISSOLVE TAB PO ONE (15:06)
--- OUTSIDE RECORDS SUMMARY | 2018-07-08 15:06 | XMS REPORT ---
Author Author MADELAINE MARTINEZ Organization [facility] Address [address] [place] [address] Care Team Providers Care Telephone Appointment Clerk Name Role Phone MADELAINE MARTINEZ Unavailable PROBLEMS Type Condition ICD9-CM Code [id number] Code Onset Dates Condition Status SNOMED Code Problem Major depressive disorder, recurrent episode, moderate F33.1 Active 537716755 Problem Posttraumatic stress disorder F43.10 Active [id number] ALLERGIES No Information ENCOUNTERS Encounter Location Date Diagnosis [id number], [place] [address] Jun, [facility] [address], [place] [address] May, [facility] [id number], [place] [address] Mar, Major depressive disorder, recurrent episode, moderate F33.1 and Posttraumatic stress disorder F43.10 [address] [id number], [place] [address] Oct, IMMUNIZATIONS No Known Immunizations SOCIAL HISTORY Never Assessed REASON FOR VISIT FYI PLAN OF CARE VITAL SIGNS MEDICATIONS Unknown Medications RESULTS No Results PROCEDURES No Known procedures INSTRUCTIONS MEDICATIONS ADMINISTERED No Known Medications
--- OUTSIDE RECORDS SUMMARY | 2018-07-08 15:07 | XMS REPORT ---
Author Author MADELAINE MARTINEZ Organization [facility] Address [address] [place] [address] Care Team Providers Care Early Childhood Education Coordinator Name Role Phone MADELAINE MARTINEZ Unavailable PROBLEMS Type Condition ICD9-CM Code GUA34-OP Code Onset Dates Condition Status SNOMED Code Problem Major depressive disorder, recurrent episode, moderate F33.1 Active 613849654 Problem Posttraumatic stress disorder F43.10 Active [id number] ALLERGIES No Information ENCOUNTERS Encounter Location Date Diagnosis [facility] [id number] [address] May, [facility] [id number] [address] May, [facility] [id number], [place] [address] Mar, Major depressive disorder, recurrent episode, moderate F33.1 and Posttraumatic stress disorder F43.10 [facility] [id number] [address] Oct, IMMUNIZATIONS No Known Immunizations SOCIAL HISTORY Never Assessed REASON FOR VISIT intake PLAN OF CARE Activity Details Follow Up Next Available Reason: Follow-up VITAL SIGNS MEDICATIONS Medication Instructions Dosage Frequency Start Date End Date Duration Status Latuda Active Benzonatate Active Dexilant Active Metformin HCl Active Simvastatin Active Sertraline HCl Active Montelukast Sodium Active ProAir HFA Active Baclofen Active Prazosin HCl Active Ondansetron Active Symbicort Active Meloxicam Active True Metrix Blood Glucose Test Active Lisinopril Active RESULTS No Results PROCEDURES Procedure Date Ordered Result Body Site Psych diagnostic evaluation, new patient Apr 14, 2018 INSTRUCTIONS MEDICATIONS ADMINISTERED No Known Medications
--- OUTSIDE RECORDS SUMMARY | 2018-07-08 15:09 | XMS REPORT | Continuity of Care Document ---
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 <observation moodCode="EVN" classCode="OBS"> <templateId root= "216.840.1.934725.10..22.4.2" /> <id nullFlavor="NA" /> < code codeSystem="local" code="CREAT" displayName="CREATININE" /> < statusCode code="completed" /> <effectiveTime value="080998276403" /> <value unit="mg/dL" xsi:type="PQ" value="0.9" /> < referenceRange> <observationRange> <text>0.6-1.0</text> </observationRange> </referenceRange> </observation > </component> <component> <observation moodCode="EVN" classCode="OBS"> <templateId root="16.840.1.752836.10...4.2" /> <id nullFlavor="NA" /> <code codeSystem="local" code="HGBT" displayName="HEMOGLOBIN" /> <statusCode code="completed" /> < effectiveTime value="243038503059" /> <value unit="gm/dL" xsi:type="PQ " value="10.5" /> <interpretationCode codeSystem="local" code="*" /> <referenceRange> <observationRange> <text>12.0- 16.0</text> </observationRange> </referenceRange> </ observation> </component> <component> <observation moodCode= "EVN" classCode="OBS"> <templateId root="16.840.1.688446.10..22.4.2 " /> <id nullFlavor="NA" /> <code codeSystem="local" code= "HCTT" displayName="HEMATOCRIT" /> <statusCode code="completed" /> <effectiveTime value="" /> <value unit="%" xsi: type="PQ" value="31.0" /> <interpretationCode codeSystem="local" code= "*" /> <referenceRange> <observationRange> < text>37.0-47.0</text> </observationRange> </referenceRange> </observation> </component> <component> <observation moodCode="EVN" classCode="OBS"> <templateId root= "2.16.840.1.355291.10..22.4.2" /> <id nullFlavor="NA" /> < code codeSystem="local" code="NA" displayName="SODIUM" /> <statusCode code="completed" /> <effectiveTime value="" /> < value unit="mmol/L" xsi:type="PQ" value="136" /> <referenceRange> <observationRange> <text>135-148</text> </ observationRange> </referenceRange> </observation> </ component> <component> <observation moodCode="EVN" classCode="OBS"> <templateId root="2.16.840.1.895608.10..22.4.2" /> <id nullFlavor="NA" /> <code codeSystem="local" code="CL" displayName= "CHLORIDE" /> <statusCode code="completed" /> <effectiveTime value="698646538226" /> <value unit="mmol/L" xsi:type="PQ" value="99" / > <referenceRange> <observationRange> <text>98- 110</text> </observationRange> </referenceRange> </ observation> </component> <component> <observation moodCode= "EVN" classCode="OBS"> <templateId root="10.03.840.1.652560.10.22.4.2 " /> <id nullFlavor="NA" /> <code codeSystem="local" code="CO2 " displayName="CARBON DIOXIDE" /> <statusCode code="completed" /> <effectiveTime value="214887614095" /> <value unit="mmol/L" xsi: type="PQ" value="26" /> <referenceRange> <observationRange> <text>21-32</text> </observationRange> </ referenceRange> </observation> </component> <component> <observation moodCode="EVN" classCode="OBS"> <templateId root= "840.1.964543.06.06.22.4.2" /> <id nullFlavor="NA" /> < code codeSystem="local" code="CAION" displayName="CALCIUM IONIZED" /> < statusCode code="completed" /> <effectiveTime value="958297291812" /> <value unit="mg/dL" xsi:type="PQ" value="4.9" /> < referenceRange> <observationRange> <text>4.5-5.3</text> </observationRange> </referenceRange> </observation > </component> </organizer> </entry> <entry> <organizer moodCode= "EVN" classCode="BATTERY"> <templateId root="10.03.840.1.271641.22.4.1 " /> <id nullFlavor="NA" /> <code codeSystem="local" code="iTROPI" displayName="TROPONIN I BEDSIDE" /> <statusCode code="completed" /> < component> <observation moodCode="EVN" classCode="OBS"> < templateId root="10.03.840.1.084216.10.20.22.4.2" /> <id nullFlavor="NA " /> <code codeSystem="local" code="CMETHOD" displayName="METHOD" /> <statusCode code="completed" /> <effectiveTime value= "568170362725" /> <value unit="" xsi:type="PQ" value="Bedside" /> <referenceRange> <observationRange> <text /> </observationRange> </referenceRange> </observation> </component> <component> <observation moodCode="EVN" classCode="OBS "> <templateId root="840.1.249774.06.06.224.2" /> <id nullFlavor="NA" /> <code codeSystem="local" code="TROPI" displayName= "TROPONIN I" /> <statusCode code="completed" /> < effectiveTime value="459741661267" /> <value unit="ng/mL" xsi:type="PQ " value="< 0.04" /> <referenceRange> <observationRange> <text>< 0.11</text> </observationRange> </ referenceRange> </observation> </component> </organizer> </entry > <entry> <organizer moodCode="EVN" classCode="BATTERY"> <templateId root="840.1.920828.06.06.224.1" /> <id nullFlavor="NA" /> <code codeSystem="local" code="CBCD" displayName="CBC W/DIFF" /> <statusCode code ="completed" /> <component> <observation moodCode="EVN" classCode= "OBS"> <templateId root="10.03.840.1.612404.06.06.22.4.2" /> < id nullFlavor="NA" /> <code codeSystem="local" code="BA#" displayName= "BASOPHIL #" /> <statusCode code="completed" /> < effectiveTime value="" /> <value unit="k/cumm" xsi:type="PQ " value="0.1" /> <referenceRange> <observationRange> <text>0.0-0.2</text> </observationRange> </ referenceRange> </observation> </component> <component> <observation moodCode="EVN" classCode="OBS"> <templateId root= "216.840.1.681934.10..4.2" /> <id nullFlavor="NA" /> < code codeSystem="local" code="BA%" displayName="BASOPHIL %" /> <statusCode code="completed" /> <effectiveTime value="912811060191" /> <value unit="%" xsi:type="PQ" value="1" /> < referenceRange> <observationRange> <text>0-1</text> </observationRange> </referenceRange> </observation> </component> <component> <observation moodCode="EVN" classCode= "OBS"> <templateId root="216.840.1.205448.10...4.2" /> < id nullFlavor="NA" /> <code codeSystem="local" code="EO#" displayName= "EOSINOPHIL #" /> <statusCode code="completed" /> < effectiveTime value="924561555627" /> <value unit="k/cumm" xsi:type="PQ " value="0.1" /> <referenceRange> <observationRange> <text>0.1-0.5</text> </observationRange> </ referenceRange> </observation> </component> <component> <observation moodCode="EVN" classCode="OBS"> <templateId root= "216.840.1.759137.10.22.4.2" /> <id nullFlavor="NA" /> < code codeSystem="local" code="EO%" displayName="EOSINOPHIL %" /> <statusCode code="completed" /> <effectiveTime value="" /> <value unit="%" xsi:type="PQ" value="1" /> < interpretationCode codeSystem="local" code="*" /> <referenceRange> <observationRange> <text>2-4</text> </ observationRange> </referenceRange> </observation> </ component> <component> <observation moodCode="EVN" classCode="OBS"> <templateId root="10.03.840.1.446915.06.06.22.4.2" /> <id nullFlavor="NA" /> <code codeSystem="local" code="GR#" displayName= "GRANULOCYTE #" /> <statusCode code="completed" /> < effectiveTime value="" /> <value unit="k/cumm" xsi:type="PQ " value="4.8" /> <referenceRange> <observationRange> <text>2.0-9.0</text> </observationRange> </ referenceRange> </observation> </component> <component> <observation moodCode="EVN" classCode="OBS"> <templateId root= "10.03.840.1.713618.10.22.4.2" /> <id nullFlavor="NA" /> < code codeSystem="local" code="GR%" displayName="GRANULOCYTE %" /> <statusCode code="completed" /> <effectiveTime value=" " /> <value unit="%" xsi:type="PQ" value="64" /> < referenceRange> <observationRange> <text>50-75</text> </observationRange> </referenceRange> </observation> </component> <component> <observation moodCode="EVN" classCode= "OBS"> <templateId root="16.840.1.460187.06.06.22.4.2" /> < id nullFlavor="NA" /> <code codeSystem="local" code="LY#" displayName= "LYMPHOCYTE #" /> <statusCode code="completed" /> < effectiveTime value="" /> <value unit="k/cumm" xsi:type="PQ " value="1.7" /> <referenceRange> <observationRange> <text>1.0-4.0</text> </observationRange> </ referenceRange> </observation> </component> <component> <observation moodCode="EVN" classCode="OBS"> <templateId root= "10.03.840.1.820511.06.06.224.2" /> <id nullFlavor="NA" /> < code codeSystem="local" code="LY%" displayName="LYMPHOCYTE %" /> <statusCode code="completed" /> <effectiveTime value="" /> <value unit="%" xsi:type="PQ" value="23" /> < referenceRange> <observationRange> <text>20-30</text> </observationRange> </referenceRange> </observation> </component> <component> <observation moodCode="EVN" classCode= "OBS"> <templateId root="10.03.840.1.585066.06.06.22.4.2" /> < id nullFlavor="NA" /> <code codeSystem="local" code="MCH" displayName= "MEAN CELL HGB" /> <statusCode code="completed" /> < effectiveTime value="736569073176" /> <value unit="pg" xsi:type="PQ" value="23.7" /> <interpretationCode codeSystem="local" code="*" /> <referenceRange> <observationRange> <text>27.0- 33.0</text> </observationRange> </referenceRange> </ observation> </component> <component> <observation moodCode= "EVN" classCode="OBS"> <templateId root="216.840.1.104753.10.20.22.4.2 " /> <id nullFlavor="NA" /> <code codeSystem="local" code= "MCHC" displayName="MEAN CELL HGB CONCENTRATION" /> <statusCode code= "completed" /> <effectiveTime value="" /> <value unit="g/dL" xsi:type="PQ" value="30.8" /> <interpretationCode codeSystem="local" code="*" /> <referenceRange> < observationRange> <text>32.0-37.0</text> </ observationRange> </referenceRange> </observation> </ component> <component> <observation moodCode="EVN" classCode="OBS"> <templateId root="216.840.1.767321.10.20.22.4.2" /> <id nullFlavor="NA" /> <code codeSystem="local" code="MCV" displayName= "MEAN CELL VOLUME" /> <statusCode code="completed" /> < effectiveTime value="" /> <value unit="fl" xsi:type="PQ" value="77.0" /> <interpretationCode codeSystem="local" code="*" /> <referenceRange> <observationRange> <text>80.0- 100.0</text> </observationRange> </referenceRange> </ observation> </component> <component> <observation moodCode= "EVN" classCode="OBS"> <templateId root="16.840.1.249089.10.20.22.4.2 " /> <id nullFlavor="NA" /> <code codeSystem="local" code="MO# " displayName="MONOCYTE #" /> <statusCode code="completed" /> <effectiveTime value="" /> <value unit="k/cumm" xsi:type= "PQ" value="0.8" /> <referenceRange> <observationRange> <text>0.1-1.0</text> </observationRange> </ referenceRange> </observation> </component> <component> <observation moodCode="EVN" classCode="OBS"> <templateId root= "10.03.840.1.147265.10.22.4.2" /> <id nullFlavor="NA" /> < code codeSystem="local" code="MO%" displayName="MONOCYTE %" /> <statusCode code="completed" /> <effectiveTime value="" /> <value unit="%" xsi:type="PQ" value="11" /> < interpretationCode codeSystem="local" code="*" /> <referenceRange> <observationRange> <text>4-6</text> </ observationRange> </referenceRange> </observation> </ component> <component> <observation moodCode="EVN" classCode="OBS"> <templateId root="10.03.840.1.696822.10.2022.4.2" /> <id nullFlavor="NA" /> <code codeSystem="local" code="RBC" displayName=" RED BLOOD CELL" /> <statusCode code="completed" /> < effectiveTime value="279575803677" /> <value unit="m/cumm" xsi:type="PQ " value="3.92" /> <interpretationCode codeSystem="local" code="*" /> <referenceRange> <observationRange> <text>4.00- 6.00</text> </observationRange> </referenceRange> </ observation> </component> <component> <observation moodCode= "EVN" classCode="OBS"> <templateId root="216.840.1.377394.10..22.4.2 " /> <id nullFlavor="NA" /> <code codeSystem="local" code="RDW " displayName="RED CELL DISTRIBUTION WIDTH" /> <statusCode code= "completed" /> <effectiveTime value="401336886174" /> <value unit="%" xsi:type="PQ" value="15.3" /> <referenceRange> <observationRange> <text>11.0-15.6</text> </ observationRange> </referenceRange> </observation> </ component> <component> <observation moodCode="EVN" classCode="OBS"> <templateId root="10.03.840.1.781008.06.06.22.4.2" /> <id nullFlavor="NA" /> <code codeSystem="local" code="WBC" displayName= "WHITE BLOOD CELL" /> <statusCode code="completed" /> < effectiveTime value="119925784437" /> <value unit="k/cumm" xsi:type="PQ " value="7.6" /> <referenceRange> <observationRange> <text>5.0-10.0</text> </observationRange> </ referenceRange> </observation> </component> <component> <observation moodCode="EVN" classCode="OBS"> <templateId root= "216.840.1.096808.10.20.22.4.2" /> <id nullFlavor="NA" /> < code codeSystem="local" code="HGBT" displayName="HEMOGLOBIN" /> < statusCode code="completed" /> <effectiveTime value="" /> <value unit="gm/dL" xsi:type="PQ" value="9.3" /> < interpretationCode codeSystem="local" code="*" /> <referenceRange> <observationRange> <text>12.0-16.0</text> </ observationRange> </referenceRange> </observation> </ component> <component> <observation moodCode="EVN" classCode="OBS"> <templateId root="2.16.840.1.526819.10..4.2" /> <id nullFlavor="NA" /> <code codeSystem="local" code="HCTT" displayName= "HEMATOCRIT" /> <statusCode code="completed" /> < effectiveTime value="" /> <value unit="%" xsi:type="PQ " value="30.2" /> <interpretationCode codeSystem="local" code="*" /> <referenceRange> <observationRange> <text>37.0- 47.0</text> </observationRange> </referenceRange> </ observation> </component> <component> <observation moodCode= "EVN" classCode="OBS"> <templateId root="216.840.1.801664.10.2022.4.2 " /> <id nullFlavor="NA" /> <code codeSystem="local" code="PLT " displayName="PLATELET COUNT" /> <statusCode code="completed" /> <effectiveTime value="" /> <value unit="k/cumm" xsi: type="PQ" value="542" /> <interpretationCode codeSystem="local" code="* " /> <referenceRange> <observationRange> <text> 150-400</text> </observationRange> </referenceRange> </observation> </component> </organizer> </entry> <entry> < organizer moodCode="EVN" classCode="BATTERY"> <templateId root= "2.16.840.1.555133.10..22.4.1" /> <id nullFlavor="NA" /> <code codeSystem="local" code="LIVER" displayName="HEPATIC FUNCTION PANEL" /> < statusCode code="completed" /> <component> <observation moodCode= "EVN" classCode="OBS"> <templateId root="2.16.840.1.813951.10..4.2 " /> <id nullFlavor="NA" /> <code codeSystem="local" code= "BILUC" displayName="BILI UNCONJUGATED" /> <statusCode code="completed " /> <effectiveTime value="541578526809" /> <value unit="mg/dL " xsi:type="PQ" value="0.1" /> <referenceRange> < observationRange> <text>0.0-0.7</text> </ observationRange> </referenceRange> </observation> </ component> <component> <observation moodCode="EVN" classCode="OBS"> <templateId root="2.16.840.1.216371...4.2" /> <id nullFlavor="NA" /> <code codeSystem="local" code="AST" displayName="AST /SGOT" /> <statusCode code="completed" /> <effectiveTime value ="890889340941" /> <value unit="Units/L" xsi:type="PQ" value="13" /> <referenceRange> <observationRange> <text>10-37< /text> </observationRange> </referenceRange> </ observation> </component> <component> <observation moodCode= "EVN" classCode="OBS"> <templateId root="10.03.840.1.820893.10.4.2 " /> <id nullFlavor="NA" /> <code codeSystem="local" code="ALT " displayName="ALT/SGPT" /> <statusCode code="completed" /> < effectiveTime value="" /> <value unit="Units/L" xsi:type= "PQ" value="18" /> <referenceRange> <observationRange> <text>< 66</text> </observationRange> </ referenceRange> </observation> </component> <component> <observation moodCode="EVN" classCode="OBS"> <templateId root= "10.03.840.1.907869.06.06.22.4.2" /> <id nullFlavor="NA" /> < code codeSystem="local" code="TP" displayName="TOTAL PROTEIN" /> < statusCode code="completed" /> <effectiveTime value="" /> <value unit="gm/dL" xsi:type="PQ" value="8.0" /> < referenceRange> <observationRange> <text>6.4-8.2</text> </observationRange> </referenceRange> </observation > </component> <component> <observation moodCode="EVN" classCode="OBS"> <templateId root="10.03.840.1.617075.10.22.4.2" /> <id nullFlavor="NA" /> <code codeSystem="local" code="ALB" displayName="ALBUMIN" /> <statusCode code="completed" /> < effectiveTime value="" /> <value unit="gm/dL" xsi:type="PQ " value="3.5" /> <referenceRange> <observationRange> <text>3.4-5.0</text> </observationRange> </ referenceRange> </observation> </component> <component> <observation moodCode="EVN" classCode="OBS"> <templateId root= "10.03.840.1.010372.10.20.22.4.2" /> <id nullFlavor="NA" /> < code codeSystem="local" code="BILTOT" displayName="BILI TOTAL" /> < statusCode code="completed" /> <effectiveTime value="246092748918" /> <value unit="mg/dL" xsi:type="PQ" value="0.2" /> < referenceRange> <observationRange> <text>0.0-1.0</text> </observationRange> </referenceRange> </observation > </component> <component> <observation moodCode="EVN" classCode="OBS"> <templateId root="10.03.840.1.886763.10..22.4.2" /> <id nullFlavor="NA" /> <code codeSystem="local" code="ALKP" displayName="ALKALINE PHOSPHATASE TOTAL" /> <statusCode code="completed " /> <effectiveTime value="463400141641" /> <value unit="IU/L " xsi:type="PQ" value="120" /> <interpretationCode codeSystem="local" code="*" /> <referenceRange> <observationRange> <text>45-117</text> </observationRange> </referenceRange> </observation> </component> <component> <observation moodCode="EVN" classCode="OBS"> <templateId root= "10.03.840.1.960075.10.20.22.4.2" /> <id nullFlavor="NA" /> < code codeSystem="local" code="BILC" displayName="BILI CONJUGATED" /> < statusCode code="completed" /> <effectiveTime value="263155160274" /> <value unit="mg/dL" xsi:type="PQ" value="< 0.1" /> < referenceRange> <observationRange> <text>0.0-0.3</text> </observationRange> </referenceRange> </observation > </component> </organizer> </entry> <entry> <organizer moodCode= "EVN" classCode="BATTERY"> <templateId root="216.840.1.604721.10..22.4.1 " /> <id nullFlavor="NA" /> <code codeSystem="local" code="LIP" displayName="LIPASE" /> <statusCode code="completed" /> <component> <observation moodCode="EVN" classCode="OBS"> <templateId root= "216.840.1.516740.10..22.4.2" /> <id nullFlavor="NA" /> < code codeSystem="local" code="LIP" displayName="LIPASE" /> <statusCode code="completed" /> <effectiveTime value="062712255531" /> < value unit="Units/L" xsi:type="PQ" value="78" /> <referenceRange> <observationRange> <text>73-393</text> </ observationRange> </referenceRange> </observation> </ component> </organizer> </entry> <entry> <organizer moodCode="EVN" classCode="BATTERY"> <templateId root="216.840.1.873629.10..22.4.1" /> <id nullFlavor="NA" /> <code codeSystem="local" code="GLUMON" displayName="GLUCOSE (POC)" /> <statusCode code="completed" /> < component> <observation moodCode="EVN" classCode="OBS"> < templateId root="216.840.1.722950.10..22.4.2" /> <id nullFlavor="NA " /> <code codeSystem="local" code="GLUMON" displayName="GLUCOSE (POC) " /> <statusCode code="completed" /> <effectiveTime value= "204140074310" /> <value unit="mg/dL" xsi:type="PQ" value="119" /> <interpretationCode codeSystem="local" code="*" /> < referenceRange> <observationRange> <text>70-99</text> </observationRange> </referenceRange> </observation> </component> </organizer> </entry> <entry> <organizer moodCode="EVN " classCode="BATTERY"> <templateId root="216.840.1.687520.10..22.4.1" / > <id nullFlavor="NA" /> <code codeSystem="local" code="HH" displayName="HGB HCT" /> <statusCode code="completed" /> <component > <observation moodCode="EVN" classCode="OBS"> <templateId root= "216.840.1.639232.10..22.4.2" /> <id nullFlavor="NA" /> < code codeSystem="local" code="MCV" displayName="MEAN CELL VOLUME" /> < statusCode code="completed" /> <effectiveTime value="091672062031" /> <value unit="fl" xsi:type="PQ" value="77.0" /> < interpretationCode codeSystem="local" code="*" /> <referenceRange> <observationRange> <text>80.0-100.0</text> </ observationRange> </referenceRange> </observation> </ component> <component> <observation moodCode="EVN" classCode="OBS"> <templateId root="16.840.1.124905.10..4.2" /> <id nullFlavor="NA" /> <code codeSystem="local" code="HGBT" displayName= "HEMOGLOBIN" /> <statusCode code="completed" /> < effectiveTime value="389384365981" /> <value unit="gm/dL" xsi:type="PQ " value="8.2" /> <interpretationCode codeSystem="local" code="*" /> <referenceRange> <observationRange> <text>12.0- 16.0</text> </observationRange> </referenceRange> </ observation> </component> <component> <observation moodCode= "EVN" classCode="OBS"> <templateId root="10.03.840.1.156153.06.06.224.2 " /> <id nullFlavor="NA" /> <code codeSystem="local" code= "HCTT" displayName="HEMATOCRIT" /> <statusCode code="completed" /> <effectiveTime value="" /> <value unit="%" xsi: type="PQ" value="27.1" /> <interpretationCode codeSystem="local" code= "*" /> <referenceRange> <observationRange> < text>37.0-47.0</text> </observationRange> </referenceRange> </observation> </component> </organizer> </entry> <entry> < organizer moodCode="EVN" classCode="BATTERY"> <templateId root= "16.840.1.070461.10.22.4.1" /> <id nullFlavor="NA" /> <code codeSystem="local" code="PT" displayName="PROTHROMBIN TIME WITH INR" /> < statusCode code="completed" /> <component> <observation moodCode= "EVN" classCode="OBS"> <templateId root="10.03.840.1.323480.10..4.2 " /> <id nullFlavor="NA" /> <code codeSystem="local" code= "INRX" displayName="INTERNATIONAL NORMAL RATIO" /> <statusCode code= "completed" /> <effectiveTime value="811266291665" /> <value unit="" xsi:type="PQ" value="1.0" /> <referenceRange> < observationRange> <text>0.9-1.1</text> </ observationRange> </referenceRange> </observation> </ component> <component> <observation moodCode="EVN" classCode="OBS"> <templateId root="840.1.416516.06.06.22.4.2" /> <id nullFlavor="NA" /> <code codeSystem="local" code="PTPAT" displayName= "PROTHROMBIN TIME" /> <statusCode code="completed" /> < effectiveTime value="823316122070" /> <value unit="sec" xsi:type="PQ" value="11.3" /> <referenceRange> <observationRange> <text>9.3-12.2</text> </observationRange> </ referenceRange> </observation> </component> </organizer> </entry > <entry> <organizer moodCode="EVN" classCode="BATTERY"> <templateId root="10.03.840.1.826455.10.20.22.4.1" /> <id nullFlavor="NA" /> <code codeSystem="local" code="TROPI" displayName="TROPONIN I" /> <statusCode code="completed" /> <component> <observation moodCode="EVN" classCode="OBS"> <templateId root=".1.801589.10..22.4.2" /> <id nullFlavor="NA" /> <code codeSystem="local" code="TROPI" displayName="TROPONIN I" /> <statusCode code="completed" /> < effectiveTime value="717835412491" /> <value unit="ng/mL" xsi:type="PQ " value="< 0.02" /> <referenceRange> <observationRange> <text>< 0.07</text> </observationRange> </ referenceRange> </observation> </component> </organizer> </entry > <entry> <organizer moodCode="EVN" classCode="BATTERY"> <templateId root="2.16.840.1.531081.10..22.4.1" /> <id nullFlavor="NA" /> <code codeSystem="local" code="TROPI" displayName="TROPONIN I" /> <statusCode code="completed" /> <component> <observation moodCode="EVN" classCode="OBS"> <templateId root="2.16.840.1.471786.10..22.4.2" /> <id nullFlavor="NA" /> <code codeSystem="local" code="TROPI" displayName="TROPONIN I" /> <statusCode code="completed" /> < effectiveTime value="347227166461" /> <value unit="ng/mL" xsi:type="PQ " value="< 0.02" /> <referenceRange> <observationRange> <text>< 0.07</text> </observationRange> </ referenceRange> </observation> </component> </organizer> </entry > <entry> <organizer moodCode="EVN" classCode="BATTERY"> <templateId root="2.16.840.1.280467.06.06.22.4.1" /> <id nullFlavor="NA" /> <code codeSystem="local" code="GLUMON" displayName="GLUCOSE (POC)" /> < statusCode code="completed" /> <component> <observation moodCode= "EVN" classCode="OBS"> <templateId root="10.03.840.1.246803.06.06.22.4.2 " /> <id nullFlavor="NA" /> <code codeSystem="local" code= "GLUMON" displayName="GLUCOSE (POC)" /> <statusCode code="completed" / > <effectiveTime value="560531782210" /> <value unit="mg/dL" xsi:type="PQ" value="108" /> <interpretationCode codeSystem="local" code="*" /> <referenceRange> <observationRange> <text>70-99</text> </observationRange> </referenceRange> </observation> </component> </organizer> </entry> <entry> < organizer moodCode="EVN" classCode="BATTERY"> <templateId root= "840.1.904230.06.06.22.4.1" /> <id nullFlavor="NA" /> <code codeSystem="local" code="RENAL" displayName="RENAL FUNCTION PANEL" /> < statusCode code="completed" /> <component> <observation moodCode= "EVN" classCode="OBS"> <templateId root="10.03.840.1.729917.06.06.22.4.2 " /> <id nullFlavor="NA" /> <code codeSystem="local" code="K" displayName="POTASSIUM" /> <statusCode code="completed" /> < effectiveTime value="574754659946" /> <value unit="mmol/L" xsi:type="PQ " value="4.0" /> <referenceRange> <observationRange> <text>3.5-5.3</text> </observationRange> </ referenceRange> </observation> </component> <component> <observation moodCode="EVN" classCode="OBS"> <templateId root= "216.840.1.270020.10...4.2" /> <id nullFlavor="NA" /> < code codeSystem="local" code="eGFR" displayName="EST GFR (MDRD)" /> < statusCode code="completed" /> <effectiveTime value="282312803770" /> <value unit="mL/min" xsi:type="PQ" value="> 60" /> < referenceRange> <observationRange> <text>> 59</text> </observationRange> </referenceRange> </observation > </component> <component> <observation moodCode="EVN" classCode="OBS"> <templateId root="10.03.840.1.858099.10..4.2" /> <id nullFlavor="NA" /> <code codeSystem="local" code="GAP" displayName="ANION GAP" /> <statusCode code="completed" /> < effectiveTime value="781485090650" /> <value unit="mmol/L" xsi:type="PQ " value="8" /> <referenceRange> <observationRange> <text>5-15</text> </observationRange> </referenceRange > </observation> </component> <component> <observation moodCode="EVN" classCode="OBS"> <templateId root= "16.840.1.559848.10...4.2" /> <id nullFlavor="NA" /> < code codeSystem="local" code="eCrCl" displayName="EST CrCl (CG)" /> < statusCode code="completed" /> <effectiveTime value="" /> <value unit="mL/min" xsi:type="PQ" value="> 60" /> < referenceRange> <observationRange> <text>> 59</text> </observationRange> </referenceRange> </observation > </component> <component> <observation moodCode="EVN" classCode="OBS"> <templateId root="10.03.840.1.154326.22.4.2" /> <id nullFlavor="NA" /> <code codeSystem="local" code="GLU" displayName="GLUCOSE" /> <statusCode code="completed" /> < effectiveTime value="" /> <value unit="mg/dL" xsi:type="PQ " value="102" /> <interpretationCode codeSystem="local" code="*" /> <referenceRange> <observationRange> <text>70-99</ text> </observationRange> </referenceRange> </ observation> </component> <component> <observation moodCode= "EVN" classCode="OBS"> <templateId root="10.03.840.1.137391..22.4.2 " /> <id nullFlavor="NA" /> <code codeSystem="local" code="CA " displayName="CALCIUM" /> <statusCode code="completed" /> < effectiveTime value="" /> <value unit="mg/dL" xsi:type="PQ " value="8.2" /> <interpretationCode codeSystem="local" code="*" /> <referenceRange> <observationRange> <text>8.5- 10.1</text> </observationRange> </referenceRange> </ observation> </component> <component> <observation moodCode= "EVN" classCode="OBS"> <templateId root="840.1.149328.10..22.4.2 " /> <id nullFlavor="NA" /> <code codeSystem="local" code="BUN " displayName="BLOOD UREA NITROGEN" /> <statusCode code="completed" /> <effectiveTime value="" /> <value unit="mg/dL" xsi:type="PQ" value="15" /> <referenceRange> < observationRange> <text>7-20</text> </observationRange> </referenceRange> </observation> </component> < component> <observation moodCode="EVN" classCode="OBS"> < templateId root="2.16.840.1.158836.10..22.4.2" /> <id nullFlavor="NA " /> <code codeSystem="local" code="CREAT" displayName="CREATININE" /> <statusCode code="completed" /> <effectiveTime value= "" /> <value unit="mg/dL" xsi:type="PQ" value="0.8" /> <referenceRange> <observationRange> <text>0.6-1.0< /text> </observationRange> </referenceRange> </ observation> </component> <component> <observation moodCode= "EVN" classCode="OBS"> <templateId root="2.16.840.1.132539.10..22.4.2 " /> <id nullFlavor="NA" /> <code codeSystem="local" code="NA " displayName="SODIUM" /> <statusCode code="completed" /> < effectiveTime value="" /> <value unit="mmol/L" xsi:type="PQ " value="141" /> <referenceRange> <observationRange> <text>135-148</text> </observationRange> </ referenceRange> </observation> </component> <component> <observation moodCode="EVN" classCode="OBS"> <templateId root= "16.840.1.011152.10..22.4.2" /> <id nullFlavor="NA" /> < code codeSystem="local" code="CL" displayName="CHLORIDE" /> < statusCode code="completed" /> <effectiveTime value="" /> <value unit="mmol/L" xsi:type="PQ" value="107" /> < referenceRange> <observationRange> <text>98-110</text> </observationRange> </referenceRange> </observation> </component> <component> <observation moodCode="EVN" classCode ="OBS"> <templateId root="16.840.1.454444.10..22.4.2" /> < id nullFlavor="NA" /> <code codeSystem="local" code="CO2" displayName= "CARBON DIOXIDE" /> <statusCode code="completed" /> < effectiveTime value="" /> <value unit="mmol/L" xsi:type="PQ " value="26" /> <referenceRange> <observationRange> <text>21-32</text> </observationRange> </ referenceRange> </observation> </component> <component> <observation moodCode="EVN" classCode="OBS"> <templateId root= "16.840.1.319178.10..22.4.2" /> <id nullFlavor="NA" /> < code codeSystem="local" code="ALB" displayName="ALBUMIN" /> < statusCode code="completed" /> <effectiveTime value="911597423122" /> <value unit="gm/dL" xsi:type="PQ" value="3.0" /> < interpretationCode codeSystem="local" code="*" /> <referenceRange> <observationRange> <text>3.4-5.0</text> </ observationRange> </referenceRange> </observation> </ component> <component> <observation moodCode="EVN" classCode="OBS"> <templateId root="16.840.1.789664.10.20.22.4.2" /> <id nullFlavor="NA" /> <code codeSystem="local" code="PHOS" displayName= "PHOSPHORUS" /> <statusCode code="completed" /> < effectiveTime value="996301697660" /> <value unit="mg/dL" xsi:type="PQ " value="3.1" /> <referenceRange> <observationRange> <text>2.5-4.9</text> </observationRange> </ referenceRange> </observation> </component> </organizer> </entry > <entry> <organizer moodCode="EVN" classCode="BATTERY"> <templateId root="10.03.840.1.180023.10..22.4.1" /> <id nullFlavor="NA" /> <code codeSystem="local" code="HDLPRO" displayName="LIPID PANEL" /> <statusCode code="completed" /> <component> <observation moodCode="EVN" classCode="OBS"> <templateId root="10.03.840.1.250033.10.20.22.4.2" /> <id nullFlavor="NA" /> <code codeSystem="local" code="CHOL/HDL " displayName="CHOLESTEROL/HDL RATIO" /> <statusCode code="completed" / > <effectiveTime value="001281167797" /> <value unit="" xsi: type="PQ" value="3.7" /> <referenceRange> <observationRange > <text> < 5.0</text> </observationRange> </ referenceRange> </observation> </component> <component> <observation moodCode="EVN" classCode="OBS"> <templateId root= "216.840.1.469781.102022.4.2" /> <id nullFlavor="NA" /> < code codeSystem="local" code="LDLX" displayName="LDL CHOLESTEROL" /> < statusCode code="completed" /> <effectiveTime value="056249332877" /> <value unit="mg/dL" xsi:type="PQ" value="93" /> < referenceRange> <observationRange> <text>< 100</text > </observationRange> </referenceRange> </observation > </component> <component> <observation moodCode="EVN" classCode="OBS"> <templateId root="10.03.840.1.521316.06.06.22.4.2" /> <id nullFlavor="NA" /> <code codeSystem="local" code="VLDL" displayName="VLDL CHOLESTEROL" /> <statusCode code="completed" /> <effectiveTime value="" /> <value unit="mg/dL" xsi: type="PQ" value="27" /> <referenceRange> <observationRange> <text>< 30</text> </observationRange> </ referenceRange> </observation> </component> <component> <observation moodCode="EVN" classCode="OBS"> <templateId root= "16.840.1.320420.10.2022.4.2" /> <id nullFlavor="NA" /> < code codeSystem="local" code="TRIG" displayName="TRIGLYCERIDES" /> < statusCode code="completed" /> <effectiveTime value="053749731661" /> <value unit="mg/dL" xsi:type="PQ" value="135" /> < referenceRange> <observationRange> <text>< 150</text > </observationRange> </referenceRange> </observation > </component> <component> <observation moodCode="EVN" classCode="OBS"> <templateId root="16.840.1.088255.10.20.22.4.2" /> <id nullFlavor="NA" /> <code codeSystem="local" code="CHOL" displayName="CHOLESTEROL" /> <statusCode code="completed" /> < effectiveTime value="380235985352" /> <value unit="mg/dL" xsi:type="PQ " value="164" /> <referenceRange> <observationRange> <text>< 200</text> </observationRange> </ referenceRange> </observation> </component> <component> <observation moodCode="EVN" classCode="OBS"> <templateId root= "10.03.840.1.736946.10..4.2" /> <id nullFlavor="NA" /> < code codeSystem="local" code="HDL" displayName="HDL CHOLESTEROL" /> < statusCode code="completed" /> <effectiveTime value="570496339702" /> <value unit="mg/dL" xsi:type="PQ" value="44" /> < referenceRange> <observationRange> <text>> 39</text> </observationRange> </referenceRange> </observation > </component> </organizer> </entry> <entry> <organizer moodCode= "EVN" classCode="BATTERY"> <templateId root="10.03.840.1.364674.10...4.1 " /> <id nullFlavor="NA" /> <code codeSystem="local" code="MAG" displayName="MAGNESIUM" /> <statusCode code="completed" /> <component > <observation moodCode="EVN" classCode="OBS"> <templateId root= "2.16.840.1.705466.10.20.22.4.2" /> <id nullFlavor="NA" /> < code codeSystem="local" code="MAG" displayName="MAGNESIUM" /> < statusCode code="completed" /> <effectiveTime value="509564105511" /> <value unit="mg/dL" xsi:type="PQ" value="2.4" /> < referenceRange> <observationRange> <text>1.8-2.4</text> </observationRange> </referenceRange> </observation > </component> </organizer> </entry> <entry> <organizer moodCode= "EVN" classCode="BATTERY"> <templateId root="2.16.840.1.035539.10..22.4.1 " /> <id nullFlavor="NA" /> <code codeSystem="local" code="TROPI" displayName="TROPONIN I" /> <statusCode code="completed" /> <component > <observation moodCode="EVN" classCode="OBS"> <templateId root= "2.16.840.1.844338.10.20.22.4.2" /> <id nullFlavor="NA" /> < code codeSystem="local" code="TROPI" displayName="TROPONIN I" /> < statusCode code="completed" /> <effectiveTime value="208596141642" /> <value unit="ng/mL" xsi:type="PQ" value="< 0.02" /> < referenceRange> <observationRange> <text>< 0.07</text > </observationRange> </referenceRange> </observation > </component> </organizer> </entry> <entry> <organizer moodCode= "EVN" classCode="BATTERY"> <templateId root="10.03.840.1.088321.10..4.1 " /> <id nullFlavor="NA" /> <code codeSystem="local" code="CBCD" displayName="CBC W/DIFF" /> <statusCode code="completed" /> <component > <observation moodCode="EVN" classCode="OBS"> <templateId root= "840.1.853301.06.06.22.4.2" /> <id nullFlavor="NA" /> < code codeSystem="local" code="BA#" displayName="BASOPHIL #" /> < statusCode code="completed" /> <effectiveTime value="149407301397" /> <value unit="k/cumm" xsi:type="PQ" value="0.1" /> < referenceRange> <observationRange> <text>0.0-0.2</text> </observationRange> </referenceRange> </observation > </component> <component> <observation moodCode="EVN" classCode="OBS"> <templateId root="840.1.915907.06.06.22.4.2" /> <id nullFlavor="NA" /> <code codeSystem="local" code="BA% " displayName="BASOPHIL %" /> <statusCode code="completed" /> <effectiveTime value="159726036860" /> <value unit="%" xsi: type="PQ" value="1" /> <referenceRange> <observationRange> <text>0-1</text> </observationRange> </ referenceRange> </observation> </component> <component> <observation moodCode="EVN" classCode="OBS"> <templateId root= "10.03.840.1.580670.06.06.22.4.2" /> <id nullFlavor="NA" /> < code codeSystem="local" code="EO#" displayName="EOSINOPHIL #" /> < statusCode code="completed" /> <effectiveTime value="362065374417" /> <value unit="k/cumm" xsi:type="PQ" value="0.2" /> < referenceRange> <observationRange> <text>0.1-0.5</text> </observationRange> </referenceRange> </observation > </component> <component> <observation moodCode="EVN" classCode="OBS"> <templateId root="2.16.840.1.674097.06.06.22.4.2" /> <id nullFlavor="NA" /> <code codeSystem="local" code="EO% " displayName="EOSINOPHIL %" /> <statusCode code="completed" /> <effectiveTime value="774280842005" /> <value unit="%" xsi: type="PQ" value="2" /> <referenceRange> <observationRange> <text>2-4</text> </observationRange> </ referenceRange> </observation> </component> <component> <observation moodCode="EVN" classCode="OBS"> <templateId root= "216.840.1.436607.06.06.22.4.2" /> <id nullFlavor="NA" /> < code codeSystem="local" code="GR#" displayName="GRANULOCYTE #" /> < statusCode code="completed" /> <effectiveTime value="553372354223" /> <value unit="k/cumm" xsi:type="PQ" value="4.8" /> < referenceRange> <observationRange> <text>2.0-9.0</text> </observationRange> </referenceRange> </observation > </component> <component> <observation moodCode="EVN" classCode="OBS"> <templateId root="216.840.1.750927.10..4.2" /> <id nullFlavor="NA" /> <code codeSystem="local" code="GR% " displayName="GRANULOCYTE %" /> <statusCode code="completed" /> <effectiveTime value="" /> <value unit="%" xsi: type="PQ" value="64" /> <referenceRange> <observationRange> <text>50-75</text> </observationRange> </ referenceRange> </observation> </component> <component> <observation moodCode="EVN" classCode="OBS"> <templateId root= "216.840.1.354755.06.06.22.4.2" /> <id nullFlavor="NA" /> < code codeSystem="local" code="LY#" displayName="LYMPHOCYTE #" /> < statusCode code="completed" /> <effectiveTime value="" /> <value unit="k/cumm" xsi:type="PQ" value="1.5" /> < referenceRange> <observationRange> <text>1.0-4.0</text> </observationRange> </referenceRange> </observation > </component> <component> <observation moodCode="EVN" classCode="OBS"> <templateId root="10.03.840.1.725456.10.2022.4.2" /> <id nullFlavor="NA" /> <code codeSystem="local" code="LY% " displayName="LYMPHOCYTE %" /> <statusCode code="completed" /> <effectiveTime value="794483886506" /> <value unit="%" xsi: type="PQ" value="21" /> <referenceRange> <observationRange> <text>20-30</text> </observationRange> </ referenceRange> </observation> </component> <component> <observation moodCode="EVN" classCode="OBS"> <templateId root= "10.03.840.1.832864.10...4.2" /> <id nullFlavor="NA" /> < code codeSystem="local" code="MCH" displayName="MEAN CELL HGB" /> < statusCode code="completed" /> <effectiveTime value="214002723024" /> <value unit="pg" xsi:type="PQ" value="23.3" /> < interpretationCode codeSystem="local" code="*" /> <referenceRange> <observationRange> <text>27.0-33.0</text> </ observationRange> </referenceRange> </observation> </ component> <component> <observation moodCode="EVN" classCode="OBS"> <templateId root="10.03.840.1.580220...4.2" /> <id nullFlavor="NA" /> <code codeSystem="local" code="MCHC" displayName= "MEAN CELL HGB CONCENTRATION" /> <statusCode code="completed" /> <effectiveTime value="424172666240" /> <value unit="g/dL" xsi:type= "PQ" value="29.9" /> <interpretationCode codeSystem="local" code="*" / > <referenceRange> <observationRange> <text> 32.0-37.0</text> </observationRange> </referenceRange> </observation> </component> <component> <observation moodCode="EVN" classCode="OBS"> <templateId root= "10.03.840.1.806977.10..4.2" /> <id nullFlavor="NA" /> < code codeSystem="local" code="MCV" displayName="MEAN CELL VOLUME" /> < statusCode code="completed" /> <effectiveTime value="" /> <value unit="fl" xsi:type="PQ" value="77.8" /> < interpretationCode codeSystem="local" code="*" /> <referenceRange> <observationRange> <text>80.0-100.0</text> </ observationRange> </referenceRange> </observation> </ component> <component> <observation moodCode="EVN" classCode="OBS"> <templateId root="2.16.840.1.730564.06.06.22.4.2" /> <id nullFlavor="NA" /> <code codeSystem="local" code="MO#" displayName= "MONOCYTE #" /> <statusCode code="completed" /> < effectiveTime value="" /> <value unit="k/cumm" xsi:type="PQ " value="0.9" /> <referenceRange> <observationRange> <text>0.1-1.0</text> </observationRange> </ referenceRange> </observation> </component> <component> <observation moodCode="EVN" classCode="OBS"> <templateId root= "2.16.840.1.475416.10.4.2" /> <id nullFlavor="NA" /> < code codeSystem="local" code="MO%" displayName="MONOCYTE %" /> <statusCode code="completed" /> <effectiveTime value="" /> <value unit="%" xsi:type="PQ" value="12" /> < interpretationCode codeSystem="local" code="*" /> <referenceRange> <observationRange> <text>4-6</text> </ observationRange> </referenceRange> </observation> </ component> <component> <observation moodCode="EVN" classCode="OBS"> <templateId root="10.03.840.1.247914.10.20.22.4.2" /> <id nullFlavor="NA" /> <code codeSystem="local" code="RBC" displayName=" RED BLOOD CELL" /> <statusCode code="completed" /> < effectiveTime value="429452774158" /> <value unit="m/cumm" xsi:type="PQ " value="3.61" /> <interpretationCode codeSystem="local" code="*" /> <referenceRange> <observationRange> <text>4.00- 6.00</text> </observationRange> </referenceRange> </ observation> </component> <component> <observation moodCode= "EVN" classCode="OBS"> <templateId root="840.1.673563..22.4.2 " /> <id nullFlavor="NA" /> <code codeSystem="local" code="RDW " displayName="RED CELL DISTRIBUTION WIDTH" /> <statusCode code= "completed" /> <effectiveTime value="891224787359" /> <value unit="%" xsi:type="PQ" value="15.2" /> <referenceRange> <observationRange> <text>11.0-15.6</text> </ observationRange> </referenceRange> </observation> </ component> <component> <observation moodCode="EVN" classCode="OBS"> <templateId root="10.03.840.1.375105.10.20.22.4.2" /> <id nullFlavor="NA" /> <code codeSystem="local" code="WBC" displayName= "WHITE BLOOD CELL" /> <statusCode code="completed" /> < effectiveTime value="632315857701" /> <value unit="k/cumm" xsi:type="PQ " value="7.4" /> <referenceRange> <observationRange> <text>5.0-10.0</text> </observationRange> </ referenceRange> </observation> </component> <component> <observation moodCode="EVN" classCode="OBS"> <templateId root= "216.840.1.931000.10.20.22.4.2" /> <id nullFlavor="NA" /> < code codeSystem="local" code="HGBT" displayName="HEMOGLOBIN" /> < statusCode code="completed" /> <effectiveTime value="662556665106" /> <value unit="gm/dL" xsi:type="PQ" value="8.4" /> < interpretationCode codeSystem="local" code="*" /> <referenceRange> <observationRange> <text>12.0-16.0</text> </ observationRange> </referenceRange> </observation> </ component> <component> <observation moodCode="EVN" classCode="OBS"> <templateId root="216.840.1.589011.10.20.22.4.2" /> <id nullFlavor="NA" /> <code codeSystem="local" code="HCTT" displayName= "HEMATOCRIT" /> <statusCode code="completed" /> < effectiveTime value="363383332383" /> <value unit="%" xsi:type="PQ " value="28.1" /> <interpretationCode codeSystem="local" code="*" /> <referenceRange> <observationRange> <text>37.0- 47.0</text> </observationRange> </referenceRange> </ observation> </component> <component> <observation moodCode= "EVN" classCode="OBS"> <templateId root="2.16.840.1.690248.10..22.4.2 " /> <id nullFlavor="NA" /> <code codeSystem="local" code="PLT " displayName="PLATELET COUNT" /> <statusCode code="completed" /> <effectiveTime value="117290480474" /> <value unit="k/cumm" xsi: type="PQ" value="437" /> <interpretationCode codeSystem="local" code="* " /> <referenceRange> <observationRange> <text> 150-400</text> </observationRange> </referenceRange> </observation> </component> </organizer> </entry> <entry> < organizer moodCode="EVN" classCode="BATTERY"> <templateId root= "2.16.840.1.690163.10..22.4.1" /> <id nullFlavor="NA" /> <code codeSystem="local" code="HBA1C" displayName="HEMOGLOBIN A1C" /> < statusCode code="completed" /> <component> <observation moodCode= "EVN" classCode="OBS"> <templateId root="2.16.840.1.174887.10.20.22.4.2 " /> <id nullFlavor="NA" /> <code codeSystem="local" code= "HBA1C" displayName="HEMOGLOBIN A1C" /> <statusCode code="completed" / > <effectiveTime value="338730919574" /> <value unit="%" xsi:type="PQ" value="6.7" /> <interpretationCode codeSystem="local" code="*" /> <referenceRange> <observationRange> <text>< 5.7</text> </observationRange> </referenceRange > </observation> </component> </organizer> </entry> <entry> <organizer moodCode="EVN" classCode="BATTERY"> <templateId root= "10.03.840.1.888812.10..4.1" /> <id nullFlavor="NA" /> <code codeSystem="local" code="GLUMON" displayName="GLUCOSE (POC)" /> < statusCode code="completed" /> <component> <observation moodCode= "EVN" classCode="OBS"> <templateId root="840.1.864488.06.06.22.4.2 " /> <id nullFlavor="NA" /> <code codeSystem="local" code= "GLUMON" displayName="GLUCOSE (POC)" /> <statusCode code="completed" / > <effectiveTime value="114200153654" /> <value unit="mg/dL" xsi:type="PQ" value="103" /> <interpretationCode codeSystem="local" code="*" /> <referenceRange> <observationRange> <text>70-99</text> </observationRange> </referenceRange> </observation> </component> </organizer> </entry> <entry> < organizer moodCode="EVN" classCode="BATTERY"> <templateId root= "840.1.922261.06.06.22.4.1" /> <id nullFlavor="NA" /> <code codeSystem="local" code="GLUMON" displayName="GLUCOSE (POC)" /> < statusCode code="completed" /> <component> <observation moodCode= "EVN" classCode="OBS"> <templateId root="840.1.119410.06.06.22.4.2 " /> <id nullFlavor="NA" /> <code codeSystem="local" code= "GLUMON" displayName="GLUCOSE (POC)" /> <statusCode code="completed" / > <effectiveTime value="710807263271" /> <value unit="mg/dL" xsi:type="PQ" value="92" /> <referenceRange> < observationRange> <text>70-99</text> </observationRange > </referenceRange> </observation> </component> </ organizer> </entry> <entry> <organizer moodCode="EVN" classCode="BATTERY"> <templateId root="2.16.840.1.276366.10.20.22.4.1" /> <id nullFlavor= "NA" /> <code codeSystem="local" code="GLUMON" displayName="GLUCOSE (POC)" /> <statusCode code="completed" /> <component> <observation moodCode="EVN" classCode="OBS"> <templateId root= "2.16.840.1.638969.10..22.4.2" /> <id nullFlavor="NA" /> < code codeSystem="local" code="GLUMON" displayName="GLUCOSE (POC)" /> < statusCode code="completed" /> <effectiveTime value="799623186842" /> <value unit="mg/dL" xsi:type="PQ" value="110" /> < interpretationCode codeSystem="local" code="*" /> <referenceRange> <observationRange> <text>70-99</text> </ observationRange> </referenceRange> </observation> </ component> </organizer> </entry> <entry> <organizer moodCode="EVN" classCode="BATTERY"> <templateId root="2.16.840.1.326398.10..22.4.1" /> <id nullFlavor="NA" /> <code codeSystem="local" code="GLUMON" displayName="GLUCOSE (POC)" /> <statusCode code="completed" /> < component> <observation moodCode="EVN" classCode="OBS"> < templateId root="2.16.840.1.225500.10..22.4.2" /> <id nullFlavor="NA " /> <code codeSystem="local" code="GLUMON" displayName="GLUCOSE (POC) " /> <statusCode code="completed" /> <effectiveTime value= "297660728644" /> <value unit="mg/dL" xsi:type="PQ" value="193" /> <interpretationCode codeSystem="local" code="*" /> < referenceRange> <observationRange> <text>70-99</text> </observationRange> </referenceRange> </observation> </component> </organizer> </entry> <entry> <organizer moodCode="EVN " classCode="BATTERY"> <templateId root="2.16.840.1.560439.10..22.4.1" / > <id nullFlavor="NA" /> <code codeSystem="local" code="GLUMON" displayName="GLUCOSE (POC)" /> <statusCode code="completed" /> < component> <observation moodCode="EVN" classCode="OBS"> < templateId root="2.16.840.1.453950.10.20.22.4.2" /> <id nullFlavor="NA " /> <code codeSystem="local" code="GLUMON" displayName="GLUCOSE (POC) " /> <statusCode code="completed" /> <effectiveTime value= "[id number]" /> <value unit="mg/dL" xsi:type="PQ" value="125" /> <interpretationCode codeSystem="local" code="*" /> < referenceRange> <observationRange> <text>70-99</text> </observationRange> </referenceRange> </observation> </component> </organizer> </entry> <entry> <organizer moodCode="EVN " classCode="BATTERY"> <templateId root="10.03.840.1.547965.10..22.4.1" / > <id nullFlavor="NA" /> <code codeSystem="local" code="CBCD" displayName="CBC W/DIFF" /> <statusCode code="completed" /> <component > <observation moodCode="EVN" classCode="OBS"> <templateId root= "10.03.840.1.069746.10..22.4.2" /> <id nullFlavor="NA" /> < code codeSystem="local" code="BA#" displayName="BASOPHIL #" /> < statusCode code="completed" /> <effectiveTime value="" /> <value unit="k/cumm" xsi:type="PQ" value="0.1" /> < referenceRange> <observationRange> <text>0.0-0.2</text> </observationRange> </referenceRange> </observation > </component> <component> <observation moodCode="EVN" classCode="OBS"> <templateId root="10.03.840.1.671044.10...4.2" /> <id nullFlavor="NA" /> <code codeSystem="local" code="BA% " displayName="BASOPHIL %" /> <statusCode code="completed" /> <effectiveTime value="" /> <value unit="%" xsi: type="PQ" value="1" /> <referenceRange> <observationRange> <text>0-1</text> </observationRange> </ referenceRange> </observation> </component> <component> <observation moodCode="EVN" classCode="OBS"> <templateId root= "840.1.665071.10.22.4.2" /> <id nullFlavor="NA" /> < code codeSystem="local" code="EO#" displayName="EOSINOPHIL #" /> < statusCode code="completed" /> <effectiveTime value="" /> <value unit="k/cumm" xsi:type="PQ" value="0.2" /> < referenceRange> <observationRange> <text>0.1-0.5</text> </observationRange> </referenceRange> </observation > </component> <component> <observation moodCode="EVN" classCode="OBS"> <templateId root="10.03.840.1.573554.10.4.2" /> <id nullFlavor="NA" /> <code codeSystem="local" code="EO% " displayName="EOSINOPHIL %" /> <statusCode code="completed" /> <effectiveTime value="" /> <value unit="%" xsi: type="PQ" value="3" /> <referenceRange> <observationRange> <text>2-4</text> </observationRange> </ referenceRange> </observation> </component> <component> <observation moodCode="EVN" classCode="OBS"> <templateId root= "10.03.840.1.998898.06.06.22.4.2" /> <id nullFlavor="NA" /> < code codeSystem="local" code="GR#" displayName="GRANULOCYTE #" /> < statusCode code="completed" /> <effectiveTime value="" /> <value unit="k/cumm" xsi:type="PQ" value="3.2" /> < referenceRange> <observationRange> <text>2.0-9.0</text> </observationRange> </referenceRange> </observation > </component> <component> <observation moodCode="EVN" classCode="OBS"> <templateId root="216.840.1.563368.10.4.2" /> <id nullFlavor="NA" /> <code codeSystem="local" code="GR% " displayName="GRANULOCYTE %" /> <statusCode code="completed" /> <effectiveTime value="" /> <value unit="%" xsi: type="PQ" value="61" /> <referenceRange> <observationRange> <text>50-75</text> </observationRange> </ referenceRange> </observation> </component> <component> <observation moodCode="EVN" classCode="OBS"> <templateId root= "2.840.1.177419.06.06.22.4.2" /> <id nullFlavor="NA" /> < code codeSystem="local" code="LY#" displayName="LYMPHOCYTE #" /> < statusCode code="completed" /> <effectiveTime value="" /> <value unit="k/cumm" xsi:type="PQ" value="1.3" /> < referenceRange> <observationRange> <text>1.0-4.0</text> </observationRange> </referenceRange> </observation > </component> <component> <observation moodCode="EVN" classCode="OBS"> <templateId root="216.840.1.696851.10.4.2" /> <id nullFlavor="NA" /> <code codeSystem="local" code="LY% " displayName="LYMPHOCYTE %" /> <statusCode code="completed" /> <effectiveTime value="" /> <value unit="%" xsi: type="PQ" value="25" /> <referenceRange> <observationRange> <text>20-30</text> </observationRange> </ referenceRange> </observation> </component> <component> <observation moodCode="EVN" classCode="OBS"> <templateId root= "216.840.1.370485.10..4.2" /> <id nullFlavor="NA" /> < code codeSystem="local" code="MCH" displayName="MEAN CELL HGB" /> < statusCode code="completed" /> <effectiveTime value="" /> <value unit="pg" xsi:type="PQ" value="22.9" /> < interpretationCode codeSystem="local" code="*" /> <referenceRange> <observationRange> <text>27.0-33.0</text> </ observationRange> </referenceRange> </observation> </ component> <component> <observation moodCode="EVN" classCode="OBS"> <templateId root="216.840.1.239240.10.4.2" /> <id nullFlavor="NA" /> <code codeSystem="local" code="MCHC" displayName= "MEAN CELL HGB CONCENTRATION" /> <statusCode code="completed" /> <effectiveTime value="" /> <value unit="g/dL" xsi:type= "PQ" value="29.6" /> <interpretationCode codeSystem="local" code="*" / > <referenceRange> <observationRange> <text> 32.0-37.0</text> </observationRange> </referenceRange> </observation> </component> <component> <observation moodCode="EVN" classCode="OBS"> <templateId root= "216.840.1.492777.06.06.22.4.2" /> <id nullFlavor="NA" /> < code codeSystem="local" code="MCV" displayName="MEAN CELL VOLUME" /> < statusCode code="completed" /> <effectiveTime value="" /> <value unit="fl" xsi:type="PQ" value="77.4" /> < interpretationCode codeSystem="local" code="*" /> <referenceRange> <observationRange> <text>80.0-100.0</text> </ observationRange> </referenceRange> </observation> </ component> <component> <observation moodCode="EVN" classCode="OBS"> <templateId root="16.840.1.054610.06.06.22.4.2" /> <id nullFlavor="NA" /> <code codeSystem="local" code="MO#" displayName= "MONOCYTE #" /> <statusCode code="completed" /> < effectiveTime value="" /> <value unit="k/cumm" xsi:type="PQ " value="0.5" /> <referenceRange> <observationRange> <text>0.1-1.0</text> </observationRange> </ referenceRange> </observation> </component> <component> <observation moodCode="EVN" classCode="OBS"> <templateId root= "10.03.840.1.293115.10.4.2" /> <id nullFlavor="NA" /> < code codeSystem="local" code="MO%" displayName="MONOCYTE %" /> <statusCode code="completed" /> <effectiveTime value="" /> <value unit="%" xsi:type="PQ" value="10" /> < interpretationCode codeSystem="local" code="*" /> <referenceRange> <observationRange> <text>4-6</text> </ observationRange> </referenceRange> </observation> </ component> <component> <observation moodCode="EVN" classCode="OBS"> <templateId root="216.840.1.793474.10.20.22.4.2" /> <id nullFlavor="NA" /> <code codeSystem="local" code="RBC" displayName=" RED BLOOD CELL" /> <statusCode code="completed" /> < effectiveTime value="[id number]" /> <value unit="m/cumm" xsi:type="PQ " value="3.54" /> <interpretationCode codeSystem="local" code="*" /> <referenceRange> <observationRange> <text>4.00- 6.00</text> </observationRange> </referenceRange> </ observation> </component> <component> <observation moodCode= "EVN" classCode="OBS"> <templateId root="840.1.569424.10..4.2 " /> <id nullFlavor="NA" /> <code codeSystem="local" code="RDW " displayName="RED CELL DISTRIBUTION WIDTH" /> <statusCode code= "completed" /> <effectiveTime value="" /> <value unit="%" xsi:type="PQ" value="14.7" /> <referenceRange> <observationRange> <text>11.0-15.6</text> </ observationRange> </referenceRange> </observation> </ component> <component> <observation moodCode="EVN" classCode="OBS"> <templateId root="16.840.1.655966.10.20.22.4.2" /> <id nullFlavor="NA" /> <code codeSystem="local" code="WBC" displayName= "WHITE BLOOD CELL" /> <statusCode code="completed" /> < effectiveTime value="" /> <value unit="k/cumm" xsi:type="PQ " value="5.3" /> <referenceRange> <observationRange> <text>5.0-10.0</text> </observationRange> </ referenceRange> </observation> </component> <component> <observation moodCode="EVN" classCode="OBS"> <templateId root= "216.840.1.665585.10.20.22.4.2" /> <id nullFlavor="NA" /> < code codeSystem="local" code="HGBT" displayName="HEMOGLOBIN" /> < statusCode code="completed" /> <effectiveTime value="" /> <value unit="gm/dL" xsi:type="PQ" value="8.1" /> < interpretationCode codeSystem="local" code="*" /> <referenceRange> <observationRange> <text>12.0-16.0</text> </ observationRange> </referenceRange> </observation> </ component> <component> <observation moodCode="EVN" classCode="OBS"> <templateId root="216.840.1.288193.10.20.22.4.2" /> <id nullFlavor="NA" /> <code codeSystem="local" code="HCTT" displayName= "HEMATOCRIT" /> <statusCode code="completed" /> < effectiveTime value="" /> <value unit="%" xsi:type="PQ " value="27.4" /> <interpretationCode codeSystem="local" code="*" /> <referenceRange> <observationRange> <text>37.0- 47.0</text> </observationRange> </referenceRange> </ observation> </component> <component> <observation moodCode= "EVN" classCode="OBS"> <templateId root="216.840.1.255390.10..22.4.2 " /> <id nullFlavor="NA" /> <code codeSystem="local" code="PLT " displayName="PLATELET COUNT" /> <statusCode code="completed" /> <effectiveTime value="840428867611" /> <value unit="k/cumm" xsi: type="PQ" value="389" /> <referenceRange> <observationRange > <text>150-400</text> </observationRange> </ referenceRange> </observation> </component> </organizer> </entry > <entry> <organizer moodCode="EVN" classCode="BATTERY"> <templateId root="216.840.1.296998.10..22.4.1" /> <id nullFlavor="NA" /> <code codeSystem="local" code="VITB12" displayName="VITAMIN B12" /> <statusCode code="completed" /> <component> <observation moodCode="EVN" classCode="OBS"> <templateId root="216.840.1.672281.10.20.22.4.2" /> <id nullFlavor="NA" /> <code codeSystem="local" code="VITB12" displayName="VITAMIN B12" /> <statusCode code="completed" /> < effectiveTime value="369560313502" /> <value unit="pg/mL" xsi:type="PQ " value="593" /> <referenceRange> <observationRange> <text>211-911</text> </observationRange> </ referenceRange> </observation> </component> </organizer> </entry > <entry> <organizer moodCode="EVN" classCode="BATTERY"> <templateId root="10.03.830.1.813864.10..22.4.1" /> <id nullFlavor="NA" /> <code codeSystem="local" code="RENAL" displayName="RENAL FUNCTION PANEL" /> < statusCode code="completed" /> <component> <observation moodCode= "EVN" classCode="OBS"> <templateId root="10.03.840.1.611088.06.06.22.4.2 " /> <id nullFlavor="NA" /> <code codeSystem="local" code="K" displayName="POTASSIUM" /> <statusCode code="completed" /> < effectiveTime value="066233303973" /> <value unit="mmol/L" xsi:type="PQ " value="4.2" /> <referenceRange> <observationRange> <text>3.5-5.3</text> </observationRange> </ referenceRange> </observation> </component> <component> <observation moodCode="EVN" classCode="OBS"> <templateId root= "840.1.925786.06.06.22.4.2" /> <id nullFlavor="NA" /> < code codeSystem="local" code="eGFR" displayName="EST GFR (MDRD)" /> < statusCode code="completed" /> <effectiveTime value="942118272622" /> <value unit="mL/min" xsi:type="PQ" value="> 60" /> < referenceRange> <observationRange> <text>> 59</text> </observationRange> </referenceRange> </observation > </component> <component> <observation moodCode="EVN" classCode="OBS"> <templateId root="10.03.840.1.903115.10...4.2" /> <id nullFlavor="NA" /> <code codeSystem="local" code="GAP" displayName="ANION GAP" /> <statusCode code="completed" /> < effectiveTime value="" /> <value unit="mmol/L" xsi:type="PQ " value="7" /> <referenceRange> <observationRange> <text>5-15</text> </observationRange> </referenceRange > </observation> </component> <component> <observation moodCode="EVN" classCode="OBS"> <templateId root= "216.840.1.532323.10..22.4.2" /> <id nullFlavor="NA" /> < code codeSystem="local" code="eCrCl" displayName="EST CrCl (CG)" /> < statusCode code="completed" /> <effectiveTime value="" /> <value unit="mL/min" xsi:type="PQ" value="> 60" /> < referenceRange> <observationRange> <text>> 59</text> </observationRange> </referenceRange> </observation > </component> <component> <observation moodCode="EVN" classCode="OBS"> <templateId root="216.840.1.481207.10..22.4.2" /> <id nullFlavor="NA" /> <code codeSystem="local" code="GLU" displayName="GLUCOSE" /> <statusCode code="completed" /> < effectiveTime value="" /> <value unit="mg/dL" xsi:type="PQ " value="110" /> <interpretationCode codeSystem="local" code="*" /> <referenceRange> <observationRange> <text>70-99</ text> </observationRange> </referenceRange> </ observation> </component> <component> <observation moodCode= "EVN" classCode="OBS"> <templateId root="216.840.1.652219.10..22.4.2 " /> <id nullFlavor="NA" /> <code codeSystem="local" code="CA " displayName="CALCIUM" /> <statusCode code="completed" /> < effectiveTime value="719920332041" /> <value unit="mg/dL" xsi:type="PQ " value="8.6" /> <referenceRange> <observationRange> <text>8.5-10.1</text> </observationRange> </ referenceRange> </observation> </component> <component> <observation moodCode="EVN" classCode="OBS"> <templateId root= "216.840.1.533341...4.2" /> <id nullFlavor="NA" /> < code codeSystem="local" code="BUN" displayName="BLOOD UREA NITROGEN" /> <statusCode code="completed" /> <effectiveTime value="307173323468" / > <value unit="mg/dL" xsi:type="PQ" value="12" /> < referenceRange> <observationRange> <text>7-20</text> </observationRange> </referenceRange> </observation> </component> <component> <observation moodCode="EVN" classCode= "OBS"> <templateId root="16.840.1.707599.10.22.4.2" /> < id nullFlavor="NA" /> <code codeSystem="local" code="CREAT" displayName ="CREATININE" /> <statusCode code="completed" /> < effectiveTime value="517705641312" /> <value unit="mg/dL" xsi:type="PQ " value="0.9" /> <referenceRange> <observationRange> <text>0.6-1.0</text> </observationRange> </ referenceRange> </observation> </component> <component> <observation moodCode="EVN" classCode="OBS"> <templateId root= "216.840.1.838022.10..22.4.2" /> <id nullFlavor="NA" /> < code codeSystem="local" code="NA" displayName="SODIUM" /> <statusCode code="completed" /> <effectiveTime value="" /> < value unit="mmol/L" xsi:type="PQ" value="139" /> <referenceRange> <observationRange> <text>135-148</text> </ observationRange> </referenceRange> </observation> </ component> <component> <observation moodCode="EVN" classCode="OBS"> <templateId root="216.840.1.447182.10..4.2" /> <id nullFlavor="NA" /> <code codeSystem="local" code="CL" displayName= "CHLORIDE" /> <statusCode code="completed" /> <effectiveTime value="688165508895" /> <value unit="mmol/L" xsi:type="PQ" value="104" /> <referenceRange> <observationRange> <text>98 -110</text> </observationRange> </referenceRange> </ observation> </component> <component> <observation moodCode= "EVN" classCode="OBS"> <templateId root="16.840.1.181566.10.20.22.4.2 " /> <id nullFlavor="NA" /> <code codeSystem="local" code="CO2 " displayName="CARBON DIOXIDE" /> <statusCode code="completed" /> <effectiveTime value="416940832319" /> <value unit="mmol/L" xsi: type="PQ" value="28" /> <referenceRange> <observationRange> <text>21-32</text> </observationRange> </ referenceRange> </observation> </component> <component> <observation moodCode="EVN" classCode="OBS"> <templateId root= "10.03.840.1.328048.10.20.22.4.2" /> <id nullFlavor="NA" /> < code codeSystem="local" code="ALB" displayName="ALBUMIN" /> < statusCode code="completed" /> <effectiveTime value="757580368162" /> <value unit="gm/dL" xsi:type="PQ" value="3.1" /> < interpretationCode codeSystem="local" code="*" /> <referenceRange> <observationRange> <text>3.4-5.0</text> </ observationRange> </referenceRange> </observation> </ component> <component> <observation moodCode="EVN" classCode="OBS"> <templateId root="840.1.055729.10..22.4.2" /> <id nullFlavor="NA" /> <code codeSystem="local" code="PHOS" displayName= "PHOSPHORUS" /> <statusCode code="completed" /> < effectiveTime value="647996262138" /> <value unit="mg/dL" xsi:type="PQ " value="2.9" /> <referenceRange> <observationRange> <text>2.5-4.9</text> </observationRange> </ referenceRange> </observation> </component> </organizer> </entry > <entry> <organizer moodCode="EVN" classCode="BATTERY"> <templateId root="10.03.840.1.641345.10.20.22.4.1" /> <id nullFlavor="NA" /> <code codeSystem="local" code="MAG" displayName="MAGNESIUM" /> <statusCode code= "completed" /> <component> <observation moodCode="EVN" classCode= "OBS"> <templateId root="16.840.1.641058.1022.4.2" /> < id nullFlavor="NA" /> <code codeSystem="local" code="MAG" displayName= "MAGNESIUM" /> <statusCode code="completed" /> <effectiveTime value="" /> <value unit="mg/dL" xsi:type="PQ" value="2.7" / > <interpretationCode codeSystem="local" code="*" /> < referenceRange> <observationRange> <text>1.8-2.4</text> </observationRange> </referenceRange> </observation > </component> </organizer> </entry> <entry> <organizer moodCode= "EVN" classCode="BATTERY"> <templateId root="216.840.1.668675.10..22.4.1 " /> <id nullFlavor="NA" /> <code codeSystem="local" code="ALEX" displayName="FERRITIN" /> <statusCode code="completed" /> <component> <observation moodCode="EVN" classCode="OBS"> <templateId root= "216.840.1.574827.10..4.2" /> <id nullFlavor="NA" /> < code codeSystem="local" code="ALEX" displayName="FERRITIN" /> < statusCode code="completed" /> <effectiveTime value="341060779114" /> <value unit="ng/mL" xsi:type="PQ" value="6" /> < interpretationCode codeSystem="local" code="*" /> <referenceRange> <observationRange> <text>8-252</text> </ observationRange> </referenceRange> </observation> </ component> </organizer> </entry> <entry> <organizer moodCode="EVN" classCode="BATTERY"> <templateId root="840.1.804904.10.4.1" /> <id nullFlavor="NA" /> <code codeSystem="local" code="TSH" displayName ="THYROID STIM HORMONE (TSH)" /> <statusCode code="completed" /> < component> <observation moodCode="EVN" classCode="OBS"> < templateId root="840.1.721446.06.06.22.4.2" /> <id nullFlavor="NA " /> <code codeSystem="local" code="TSH" displayName="THYROID STIM HORMONE (TSH)" /> <statusCode code="completed" /> < effectiveTime value="155932879562" /> <value unit="uIU/mL" xsi:type="PQ " value="2.55" /> <referenceRange> <observationRange> <text>0.34-4.82</text> </observationRange> </ referenceRange> </observation> </component> </organizer> </entry > <entry> <organizer moodCode="EVN" classCode="BATTERY"> <templateId root="840.1.227972.06.06.22.4.1" /> <id nullFlavor="NA" /> <code codeSystem="local" code="FETIBC" displayName="IRON W/ BINDING CAPACITY" /> <statusCode code="completed" /> <component> <observation moodCode= "EVN" classCode="OBS"> <templateId root="10.03.840.1.714532.10...4.2 " /> <id nullFlavor="NA" /> <code codeSystem="local" code= "FESAT" displayName="IRON SATURATION" /> <statusCode code="completed" / > <effectiveTime value="" /> <value unit="%SAT " xsi:type="PQ" value="2" /> <interpretationCode codeSystem="local" code="*" /> <referenceRange> <observationRange> <text>11-46</text> </observationRange> </referenceRange> </observation> </component> <component> <observation moodCode="EVN" classCode="OBS"> <templateId root= "216.840.1.235849.10.20.22.4.2" /> <id nullFlavor="NA" /> < code codeSystem="local" code="TIBC" displayName="IRON BINDING CAPACITY, TOTAL" / > <statusCode code="completed" /> <effectiveTime value= "" /> <value unit="mcg/dL" xsi:type="PQ" value="467" /> <interpretationCode codeSystem="local" code="*" /> < referenceRange> <observationRange> <text>250-450</text> </observationRange> </referenceRange> </observation > </component> <component> <observation moodCode="EVN" classCode="OBS"> <templateId root="216.840.1.796249.10.20.22.4.2" /> <id nullFlavor="NA" /> <code codeSystem="local" code="IRON" displayName="IRON" /> <statusCode code="completed" /> < effectiveTime value="" /> <value unit="mcg/dL" xsi:type="PQ " value="10" /> <interpretationCode codeSystem="local" code="*" /> <referenceRange> <observationRange> <text>35-150</ text> </observationRange> </referenceRange> </ observation> </component> </organizer> </entry> <entry> <organizer moodCode="EVN" classCode="BATTERY"> <templateId root= "840.1.444054.06.06.22.4.1" /> <id nullFlavor="NA" /> <code codeSystem="local" code="GLUMON" displayName="GLUCOSE (POC)" /> < statusCode code="completed" /> <component> <observation moodCode= "EVN" classCode="OBS"> <templateId root="840.1.252345.06.06.22.4.2 " /> <id nullFlavor="NA" /> <code codeSystem="local" code= "GLUMON" displayName="GLUCOSE (POC)" /> <statusCode code="completed" / > <effectiveTime value="851980003943" /> <value unit="mg/dL" xsi:type="PQ" value="195" /> <interpretationCode codeSystem="local" code="*" /> <referenceRange> <observationRange> <text>70-99</text> </observationRange> </referenceRange> </observation> </component> </organizer> </entry> <entry> < organizer moodCode="EVN" classCode="BATTERY"> <templateId root= "840.1.982986.06.06.22.4.1" /> <id nullFlavor="NA" /> <code codeSystem="local" code="GLUMON" displayName="GLUCOSE (POC)" /> < statusCode code="completed" /> <component> <observation moodCode= "EVN" classCode="OBS"> <templateId root="840.1.659867.06.06.22.4.2 " /> <id nullFlavor="NA" /> <code codeSystem="local" code= "GLUMON" displayName="GLUCOSE (POC)" /> <statusCode code="completed" / > <effectiveTime value="367572888880" /> <value unit="mg/dL" xsi:type="PQ" value="171" /> <interpretationCode codeSystem="local" code="*" /> <referenceRange> <observationRange> <text>70-99</text> </observationRange> </referenceRange> </observation> </component> </organizer> </entry> <entry> < organizer moodCode="EVN" classCode="BATTERY"> <templateId root= "2.16.840.1.337976.10..22.4.1" /> <id nullFlavor="NA" /> <code codeSystem="local" code="DIMER" displayName="D-DIMER QUANT" /> <statusCode code="completed" /> <component> <observation moodCode="EVN" classCode="OBS"> <templateId root="2.16.840.1.172316.10..22.4.2" /> <id nullFlavor="NA" /> <code codeSystem="local" code="DIMER" displayName="D-DIMER QUANT" /> <statusCode code="completed" /> <effectiveTime value="427877596391" /> <value unit="ng/mL" xsi:type= "PQ" value="210" /> <referenceRange> <observationRange> <text>0-229</text> </observationRange> </ referenceRange> </observation> </component> </organizer> </entry > <entry> <organizer moodCode="EVN" classCode="BATTERY"> <templateId root="2.16.840.1.282905.10..22.4.1" /> <id nullFlavor="NA" /> <code codeSystem="local" code="iCHEM8" displayName="CHEM/HEM PROFILE-BEDSIDE" /> <statusCode code="completed" /> <component> <observation moodCode= "EVN" classCode="OBS"> <templateId root="216.840.1.327945.10..22.4.2 " /> <id nullFlavor="NA" /> <code codeSystem="local" code="K" displayName="POTASSIUM" /> <statusCode code="completed" /> < effectiveTime value="" /> <value unit="mmol/L" xsi:type="PQ " value="3.7" /> <referenceRange> <observationRange> <text>3.5-5.3</text> </observationRange> </ referenceRange> </observation> </component> <component> <observation moodCode="EVN" classCode="OBS"> <templateId root= "216.840.1.115197...4.2" /> <id nullFlavor="NA" /> < code codeSystem="local" code="CMETHOD" displayName="METHOD" /> < statusCode code="completed" /> <effectiveTime value="" /> <value unit="" xsi:type="PQ" value="Bedside" /> < referenceRange> <observationRange> <text /> < /observationRange> </referenceRange> </observation> </ component> <component> <observation moodCode="EVN" classCode="OBS"> <templateId root="16.840.1.153647.10..4.2" /> <id nullFlavor="NA" /> <code codeSystem="local" code="GAP" displayName= "ANION GAP" /> <statusCode code="completed" /> <effectiveTime value="" /> <value unit="mmol/L" xsi:type="PQ" value="20" / > <referenceRange> <observationRange> <text>10- 20</text> </observationRange> </referenceRange> </ observation> </component> <component> <observation moodCode= "EVN" classCode="OBS"> <templateId root="216.840.1.571236.10..4.2 " /> <id nullFlavor="NA" /> <code codeSystem="local" code= "HMETHOD" displayName="METHOD" /> <statusCode code="completed" /> <effectiveTime value="" /> <value unit="" xsi:type="PQ " value="Bedside" /> <referenceRange> <observationRange> <text /> </observationRange> </referenceRange> </observation> </component> <component> <observation moodCode="EVN" classCode="OBS"> <templateId root= "216.840.1.921326.06.06.22.4.2" /> <id nullFlavor="NA" /> < code codeSystem="local" code="GLU" displayName="GLUCOSE" /> < statusCode code="completed" /> <effectiveTime value="" /> <value unit="mg/dL" xsi:type="PQ" value="112" /> < interpretationCode codeSystem="local" code="*" /> <referenceRange> <observationRange> <text>70-99</text> </ observationRange> </referenceRange> </observation> </ component> <component> <observation moodCode="EVN" classCode="OBS"> <templateId root="16.840.1.075066.06.06.22.4.2" /> <id nullFlavor="NA" /> <code codeSystem="local" code="BUN" displayName= "BLOOD UREA NITROGEN" /> <statusCode code="completed" /> < effectiveTime value="" /> <value unit="mg/dL" xsi:type="PQ " value="18" /> <referenceRange> <observationRange> <text>7-20</text> </observationRange> </referenceRange > </observation> </component> <component> <observation moodCode="EVN" classCode="OBS"> <templateId root= "16.840.1.536710.10.20.22.4.2" /> <id nullFlavor="NA" /> < code codeSystem="local" code="CREAT" displayName="CREATININE" /> < statusCode code="completed" /> <effectiveTime value="[id number]" /> <value unit="mg/dL" xsi:type="PQ" value="0.9" /> < referenceRange> <observationRange> <text>0.6-1.0</text> </observationRange> </referenceRange> </observation > </component> <component> <observation moodCode="EVN" classCode="OBS"> <templateId root="10.03.840.1.639954.10...4.2" /> <id nullFlavor="NA" /> <code codeSystem="local" code="HGBT" displayName="HEMOGLOBIN" /> <statusCode code="completed" /> < effectiveTime value="349120005190" /> <value unit="gm/dL" xsi:type="PQ " value="11.2" /> <interpretationCode codeSystem="local" code="*" /> <referenceRange> <observationRange> <text>12.0- 16.0</text> </observationRange> </referenceRange> </ observation> </component> <component> <observation moodCode= "EVN" classCode="OBS"> <templateId root="16.840.1.757795.10.20.22.4.2 " /> <id nullFlavor="NA" /> <code codeSystem="local" code= "HCTT" displayName="HEMATOCRIT" /> <statusCode code="completed" /> <effectiveTime value="" /> <value unit="%" xsi: type="PQ" value="33.0" /> <interpretationCode codeSystem="local" code= "*" /> <referenceRange> <observationRange> < text>37.0-47.0</text> </observationRange> </referenceRange> </observation> </component> <component> <observation moodCode="EVN" classCode="OBS"> <templateId root= "2.16.840.1.441300.10...4.2" /> <id nullFlavor="NA" /> < code codeSystem="local" code="NA" displayName="SODIUM" /> <statusCode code="completed" /> <effectiveTime value="" /> < value unit="mmol/L" xsi:type="PQ" value="136" /> <referenceRange> <observationRange> <text>135-148</text> </ observationRange> </referenceRange> </observation> </ component> <component> <observation moodCode="EVN" classCode="OBS"> <templateId root="2.16.840.1.560833.10..22.4.2" /> <id nullFlavor="NA" /> <code codeSystem="local" code="CL" displayName= "CHLORIDE" /> <statusCode code="completed" /> <effectiveTime value="" /> <value unit="mmol/L" xsi:type="PQ" value="98" / > <referenceRange> <observationRange> <text>98- 110</text> </observationRange> </referenceRange> </ observation> </component> <component> <observation moodCode= "EVN" classCode="OBS"> <templateId root="10.03.840.1.132862.10.22.4.2 " /> <id nullFlavor="NA" /> <code codeSystem="local" code="CO2 " displayName="CARBON DIOXIDE" /> <statusCode code="completed" /> <effectiveTime value="955087383792" /> <value unit="mmol/L" xsi: type="PQ" value="22" /> <referenceRange> <observationRange> <text>21-32</text> </observationRange> </ referenceRange> </observation> </component> <component> <observation moodCode="EVN" classCode="OBS"> <templateId root= "840.1.831946.06.06.22.4.2" /> <id nullFlavor="NA" /> < code codeSystem="local" code="CAION" displayName="CALCIUM IONIZED" /> < statusCode code="completed" /> <effectiveTime value="220543435820" /> <value unit="mg/dL" xsi:type="PQ" value="5.0" /> < referenceRange> <observationRange> <text>4.5-5.3</text> </observationRange> </referenceRange> </observation > </component> </organizer> </entry> <entry> <organizer moodCode= "EVN" classCode="BATTERY"> <templateId root="10.03.840.1.732681.22.4.1 " /> <id nullFlavor="NA" /> <code codeSystem="local" code="iCHEM8" displayName="CHEM/HEM PROFILE-BEDSIDE" /> <statusCode code="completed" /> <component> <observation moodCode="EVN" classCode="OBS"> < templateId root="10.03.840.1.441170.06.06.22.4.2" /> <id nullFlavor="NA " /> <code codeSystem="local" code="K" displayName="POTASSIUM" /> <statusCode code="completed" /> <effectiveTime value=" " /> <value unit="mmol/L" xsi:type="PQ" value="4.1" /> < referenceRange> <observationRange> <text>3.5-5.3</text> </observationRange> </referenceRange> </observation > </component> <component> <observation moodCode="EVN" classCode="OBS"> <templateId root="216.840.1.598583.06.06.22.4.2" /> <id nullFlavor="NA" /> <code codeSystem="local" code="CMETHOD " displayName="METHOD" /> <statusCode code="completed" /> < effectiveTime value="" /> <value unit="" xsi:type="PQ" value="Bedside" /> <referenceRange> <observationRange> <text /> </observationRange> </referenceRange> </observation> </component> <component> <observation moodCode="EVN" classCode="OBS"> <templateId root= "2.16.840.1.954893...4.2" /> <id nullFlavor="NA" /> < code codeSystem="local" code="GAP" displayName="ANION GAP" /> < statusCode code="completed" /> <effectiveTime value="637532372373" /> <value unit="mmol/L" xsi:type="PQ" value="18" /> < referenceRange> <observationRange> <text>10-20</text> </observationRange> </referenceRange> </observation> </component> <component> <observation moodCode="EVN" classCode= "OBS"> <templateId root="2.16.840.1.851853.10..4.2" /> < id nullFlavor="NA" /> <code codeSystem="local" code="HMETHOD" displayName="METHOD" /> <statusCode code="completed" /> < effectiveTime value="" /> <value unit="" xsi:type="PQ" value="Bedside" /> <referenceRange> <observationRange> <text /> </observationRange> </referenceRange> </observation> </component> <component> <observation moodCode="EVN" classCode="OBS"> <templateId root= "216.840.1.258716.06.06.22.4.2" /> <id nullFlavor="NA" /> < code codeSystem="local" code="GLU" displayName="GLUCOSE" /> < statusCode code="completed" /> <effectiveTime value="" /> <value unit="mg/dL" xsi:type="PQ" value="121" /> < interpretationCode codeSystem="local" code="*" /> <referenceRange> <observationRange> <text>70-99</text> </ observationRange> </referenceRange> </observation> </ component> <component> <observation moodCode="EVN" classCode="OBS"> <templateId root="216.840.1.094727.06.06.22.4.2" /> <id nullFlavor="NA" /> <code codeSystem="local" code="BUN" displayName= "BLOOD UREA NITROGEN" /> <statusCode code="completed" /> < effectiveTime value="" /> <value unit="mg/dL" xsi:type="PQ " value="21" /> <interpretationCode codeSystem="local" code="*" /> <referenceRange> <observationRange> <text>7-20</ text> </observationRange> </referenceRange> </ observation> </component> <component> <observation moodCode= "EVN" classCode="OBS"> <templateId root="10.03.840.1.475564.10..22.4.2 " /> <id nullFlavor="NA" /> <code codeSystem="local" code= "CREAT" displayName="CREATININE" /> <statusCode code="completed" /> <effectiveTime value="361684070705" /> <value unit="mg/dL" xsi: type="PQ" value="1.1" /> <interpretationCode codeSystem="local" code="* " /> <referenceRange> <observationRange> <text> 0.6-1.0</text> </observationRange> </referenceRange> </observation> </component> <component> <observation moodCode= "EVN" classCode="OBS"> <templateId root="10.03.840.1.547031.10.22.4.2 " /> <id nullFlavor="NA" /> <code codeSystem="local" code= "HGBT" displayName="HEMOGLOBIN" /> <statusCode code="completed" /> <effectiveTime value="940412604402" /> <value unit="gm/dL" xsi: type="PQ" value="9.2" /> <interpretationCode codeSystem="local" code="* " /> <referenceRange> <observationRange> <text> 12.0-16.0</text> </observationRange> </referenceRange> </observation> </component> <component> <observation moodCode="EVN" classCode="OBS"> <templateId root= "16.840.1.431467.10.20.22.4.2" /> <id nullFlavor="NA" /> < code codeSystem="local" code="HCTT" displayName="HEMATOCRIT" /> < statusCode code="completed" /> <effectiveTime value="482386447837" /> <value unit="%" xsi:type="PQ" value="27.0" /> < interpretationCode codeSystem="local" code="*" /> <referenceRange> <observationRange> <text>37.0-47.0</text> </ observationRange> </referenceRange> </observation> </ component> <component> <observation moodCode="EVN" classCode="OBS"> <templateId root="216.840.1.603054.10.20.22.4.2" /> <id nullFlavor="NA" /> <code codeSystem="local" code="NA" displayName= "SODIUM" /> <statusCode code="completed" /> <effectiveTime value="155872472755" /> <value unit="mmol/L" xsi:type="PQ" value="137" /> <referenceRange> <observationRange> <text> 135-148</text> </observationRange> </referenceRange> </observation> </component> <component> <observation moodCode= "EVN" classCode="OBS"> <templateId root="16.840.1.052857.10.20.22.4.2 " /> <id nullFlavor="NA" /> <code codeSystem="local" code="CL " displayName="CHLORIDE" /> <statusCode code="completed" /> < effectiveTime value="967229663693" /> <value unit="mmol/L" xsi:type="PQ " value="103" /> <referenceRange> <observationRange> <text>98-110</text> </observationRange> </ referenceRange> </observation> </component> <component> <observation moodCode="EVN" classCode="OBS"> <templateId root= "840.1.394880.06.06.22.4.2" /> <id nullFlavor="NA" /> < code codeSystem="local" code="CO2" displayName="CARBON DIOXIDE" /> < statusCode code="completed" /> <effectiveTime value="332090429266" /> <value unit="mmol/L" xsi:type="PQ" value="21" /> < referenceRange> <observationRange> <text>21-32</text> </observationRange> </referenceRange> </observation> </component> <component> <observation moodCode="EVN" classCode= "OBS"> <templateId root="840.1.015571.06.06.22.4.2" /> < id nullFlavor="NA" /> <code codeSystem="local" code="CAION" displayName ="CALCIUM IONIZED" /> <statusCode code="completed" /> < effectiveTime value="281027214178" /> <value unit="mg/dL" xsi:type="PQ " value="5.2" /> <referenceRange> <observationRange> <text>4.5-5.3</text> </observationRange> </ referenceRange> </observation> </component> </organizer> </entry > <entry> <organizer moodCode="EVN" classCode="BATTERY"> <templateId root="840.1.748222.06.06.22.4.1" /> <id nullFlavor="NA" /> <code codeSystem="local" code="iTROPI" displayName="TROPONIN I BEDSIDE" /> < statusCode code="completed" /> <component> <observation moodCode= "EVN" classCode="OBS"> <templateId root="840.1.643844.06.06.22.4.2 " /> <id nullFlavor="NA" /> <code codeSystem="local" code= "CMETHOD" displayName="METHOD" /> <statusCode code="completed" /> <effectiveTime value="580826483086" /> <value unit="" xsi:type="PQ " value="Bedside" /> <referenceRange> <observationRange> <text /> </observationRange> </referenceRange> </observation> </component> <component> <observation moodCode="EVN" classCode="OBS"> <templateId root= "16.840.1.600896.10..4.2" /> <id nullFlavor="NA" /> < code codeSystem="local" code="TROPI" displayName="TROPONIN I" /> < statusCode code="completed" /> <effectiveTime value="226023868251" /> <value unit="ng/mL" xsi:type="PQ" value="< 0.04" /> < referenceRange> <observationRange> <text>< 0.11</text > </observationRange> </referenceRange> </observation > </component> </organizer> </entry> <entry> <organizer moodCode= "EVN" classCode="BATTERY"> <templateId root="10.03.840.1.337030...4.1 " /> <id nullFlavor="NA" /> <code codeSystem="local" code="UA" displayName="URINALYSIS, ROUTINE" /> <statusCode code="completed" /> < component> <observation moodCode="EVN" classCode="OBS"> < templateId root="10.03.840.1.669293...4.2" /> <id nullFlavor="NA " /> <code codeSystem="local" code="LEUESU" displayName="UA LEUKOCYTE ESTERASE DIPSTICK" /> <statusCode code="completed" /> < effectiveTime value="" /> <value unit="" xsi:type="PQ" value="NEGATIVE" /> <referenceRange> <observationRange> <text>NEGATIVE</text> </observationRange> </ referenceRange> </observation> </component> <component> <observation moodCode="EVN" classCode="OBS"> <templateId root= "10.03.840.1.660510.06.06.22.4.2" /> <id nullFlavor="NA" /> < code codeSystem="local" code="NITRIU" displayName="UA NITRITE DIPSTICK" /> <statusCode code="completed" /> <effectiveTime value=" " /> <value unit="" xsi:type="PQ" value="NEGATIVE" /> < referenceRange> <observationRange> <text>NEGATIVE</text > </observationRange> </referenceRange> </observation > </component> <component> <observation moodCode="EVN" classCode="OBS"> <templateId root="10.03.840.1.684578.06.06.22.4.2" /> <id nullFlavor="NA" /> <code codeSystem="local" code="PROTEIU " displayName="UA PROTEIN DIPSTICK" /> <statusCode code="completed" /> <effectiveTime value="" /> <value unit="" xsi: type="PQ" value="NEGATIVE" /> <referenceRange> < observationRange> <text>NEGATIVE</text> </ observationRange> </referenceRange> </observation> </ component> <component> <observation moodCode="EVN" classCode="OBS"> <templateId root="16.840.1.547747...4.2" /> <id nullFlavor="NA" /> <code codeSystem="local" code="DGLUU" displayName= "UA GLUCOSE DIPSTICK" /> <statusCode code="completed" /> < effectiveTime value="" /> <value unit="" xsi:type="PQ" value="NEGATIVE" /> <referenceRange> <observationRange> <text>NEGATIVE</text> </observationRange> </ referenceRange> </observation> </component> <component> <observation moodCode="EVN" classCode="OBS"> <templateId root= "16.840.1.811275.10..4.2" /> <id nullFlavor="NA" /> < code codeSystem="local" code="KETONU" displayName="UA KETONE DIPSTICK" /> <statusCode code="completed" /> <effectiveTime value=" " /> <value unit="" xsi:type="PQ" value="NEGATIVE" /> < referenceRange> <observationRange> <text>NEGATIVE</text > </observationRange> </referenceRange> </observation > </component> <component> <observation moodCode="EVN" classCode="OBS"> <templateId root="10.03.840.1.877051.06.06.22.4.2" /> <id nullFlavor="NA" /> <code codeSystem="local" code="UROBILU " displayName="UA UROBILINOGEN DIPSTICK" /> <statusCode code="completed " /> <effectiveTime value="" /> <value unit="" xsi :type="PQ" value="NORMAL" /> <referenceRange> < observationRange> <text>NORMAL</text> </observationRange > </referenceRange> </observation> </component> < component> <observation moodCode="EVN" classCode="OBS"> < templateId root="10.03.840.1.603672.06.06.22.4.2" /> <id nullFlavor="NA " /> <code codeSystem="local" code="BILU" displayName="UA BILIRUBIN DIPSTICK" /> <statusCode code="completed" /> <effectiveTime value="" /> <value unit="" xsi:type="PQ" value="NEGATIVE" / > <referenceRange> <observationRange> <text> NEGATIVE</text> </observationRange> </referenceRange> </observation> </component> <component> <observation moodCode ="EVN" classCode="OBS"> <templateId root= "2.16.840.1.625848.10..4.2" /> <id nullFlavor="NA" /> < code codeSystem="local" code="ADAM" displayName="UA BLOOD DIPSTICK" /> < statusCode code="completed" /> <effectiveTime value="" /> <value unit="" xsi:type="PQ" value="NEGATIVE" /> < referenceRange> <observationRange> <text>NEGATIVE</text > </observationRange> </referenceRange> </observation > </component> <component> <observation moodCode="EVN" classCode="OBS"> <templateId root="2.16.840.1.772763.10...4.2" /> <id nullFlavor="NA" /> <code codeSystem="local" code="SPGRU" displayName="UA SPECIFIC GRAVITY" /> <statusCode code="completed" /> <effectiveTime value="" /> <value unit="" xsi:type= "PQ" value="1.015" /> <referenceRange> <observationRange> <text>1.015-1.025</text> </observationRange> </ referenceRange> </observation> </component> <component> <observation moodCode="EVN" classCode="OBS"> <templateId root= "10.03.840.1.221706.10..4.2" /> <id nullFlavor="NA" /> < code codeSystem="local" code="INGRID" displayName="UR PH" /> <statusCode code="completed" /> <effectiveTime value="454655858848" /> < value unit="" xsi:type="PQ" value="6.5" /> <referenceRange> <observationRange> <text>5.0-7.0</text> </ observationRange> </referenceRange> </observation> </ component> </organizer> </entry> <entry> <organizer moodCode="EVN" classCode="BATTERY"> <templateId root="840.1.887682.06.06.22.4.1" /> <id nullFlavor="NA" /> <code codeSystem="local" code="CBCD" displayName="CBC W/DIFF" /> <statusCode code="completed" /> <component > <observation moodCode="EVN" classCode="OBS"> <templateId root= "10.03.840.1.271056.06.06.22.4.2" /> <id nullFlavor="NA" /> < code codeSystem="local" code="BA#" displayName="BASOPHIL #" /> < statusCode code="completed" /> <effectiveTime value="250027972625" /> <value unit="k/cumm" xsi:type="PQ" value="0.1" /> < referenceRange> <observationRange> <text>0.0-0.2</text> </observationRange> </referenceRange> </observation > </component> <component> <observation moodCode="EVN" classCode="OBS"> <templateId root="10.03.840.1.780475.06.06.22.4.2" /> <id nullFlavor="NA" /> <code codeSystem="local" code="BA% " displayName="BASOPHIL %" /> <statusCode code="completed" /> <effectiveTime value="" /> <value unit="%" xsi: type="PQ" value="2" /> <interpretationCode codeSystem="local" code="*" /> <referenceRange> <observationRange> <text>0- 1</text> </observationRange> </referenceRange> </ observation> </component> <component> <observation moodCode= "EVN" classCode="OBS"> <templateId root="2.16.840.1.407888.06.06.224.2 " /> <id nullFlavor="NA" /> <code codeSystem="local" code= "CBCCOM" displayName="COMMENT" /> <statusCode code="completed" /> <effectiveTime value="" /> <value unit="" xsi:type="PQ " value="REVIEWED" /> <referenceRange> <observationRange> <text /> </observationRange> </referenceRange> </observation> </component> <component> <observation moodCode="EVN" classCode="OBS"> <templateId root= "2.16.840.1.785386.06.06.224.2" /> <id nullFlavor="NA" /> < code codeSystem="local" code="EO#" displayName="EOSINOPHIL #" /> < statusCode code="completed" /> <effectiveTime value="" /> <value unit="k/cumm" xsi:type="PQ" value="0.2" /> < referenceRange> <observationRange> <text>0.1-0.5</text> </observationRange> </referenceRange> </observation > </component> <component> <observation moodCode="EVN" classCode="OBS"> <templateId root="216.840.1.201223.10.22.4.2" /> <id nullFlavor="NA" /> <code codeSystem="local" code="EO% " displayName="EOSINOPHIL %" /> <statusCode code="completed" /> <effectiveTime value="" /> <value unit="%" xsi: type="PQ" value="3" /> <referenceRange> <observationRange> <text>2-4</text> </observationRange> </ referenceRange> </observation> </component> <component> <observation moodCode="EVN" classCode="OBS"> <templateId root= "16.840.1.786960.06.06.22.4.2" /> <id nullFlavor="NA" /> < code codeSystem="local" code="GR#" displayName="GRANULOCYTE #" /> < statusCode code="completed" /> <effectiveTime value="" /> <value unit="k/cumm" xsi:type="PQ" value="2.6" /> < referenceRange> <observationRange> <text>2.0-9.0</text> </observationRange> </referenceRange> </observation > </component> <component> <observation moodCode="EVN" classCode="OBS"> <templateId root="16.840.1.830393.10.22.4.2" /> <id nullFlavor="NA" /> <code codeSystem="local" code="GR% " displayName="GRANULOCYTE %" /> <statusCode code="completed" /> <effectiveTime value="" /> <value unit="%" xsi: type="PQ" value="50" /> <referenceRange> <observationRange> <text>50-75</text> </observationRange> </ referenceRange> </observation> </component> <component> <observation moodCode="EVN" classCode="OBS"> <templateId root= "216.840.1.198570.10.20.22.4.2" /> <id nullFlavor="NA" /> < code codeSystem="local" code="LY#" displayName="LYMPHOCYTE #" /> < statusCode code="completed" /> <effectiveTime value="837905620908" /> <value unit="k/cumm" xsi:type="PQ" value="1.6" /> < referenceRange> <observationRange> <text>1.0-4.0</text> </observationRange> </referenceRange> </observation > </component> <component> <observation moodCode="EVN" classCode="OBS"> <templateId root="16.840.1.609815.10...4.2" /> <id nullFlavor="NA" /> <code codeSystem="local" code="LY% " displayName="LYMPHOCYTE %" /> <statusCode code="completed" /> <effectiveTime value="157846467135" /> <value unit="%" xsi: type="PQ" value="31" /> <interpretationCode codeSystem="local" code="* " /> <referenceRange> <observationRange> <text> 20-30</text> </observationRange> </referenceRange> </ observation> </component> <component> <observation moodCode= "EVN" classCode="OBS"> <templateId root="16.840.1.468399.10..22.4.2 " /> <id nullFlavor="NA" /> <code codeSystem="local" code="MCH " displayName="MEAN CELL HGB" /> <statusCode code="completed" /> <effectiveTime value="" /> <value unit="pg" xsi:type= "PQ" value="22.8" /> <interpretationCode codeSystem="local" code="*" / > <referenceRange> <observationRange> <text> 27.0-33.0</text> </observationRange> </referenceRange> </observation> </component> <component> <observation moodCode="EVN" classCode="OBS"> <templateId root= "2.16.840.1.451268.10...4.2" /> <id nullFlavor="NA" /> < code codeSystem="local" code="MCHC" displayName="MEAN CELL HGB CONCENTRATION" / > <statusCode code="completed" /> <effectiveTime value= "" /> <value unit="g/dL" xsi:type="PQ" value="30.8" /> <interpretationCode codeSystem="local" code="*" /> < referenceRange> <observationRange> <text>32.0-37.0</text > </observationRange> </referenceRange> </observation > </component> <component> <observation moodCode="EVN" classCode="OBS"> <templateId root="216.840.1.763658.102022.4.2" /> <id nullFlavor="NA" /> <code codeSystem="local" code="MCV" displayName="MEAN CELL VOLUME" /> <statusCode code="completed" /> <effectiveTime value="" /> <value unit="fl" xsi:type= "PQ" value="74.0" /> <interpretationCode codeSystem="local" code="*" / > <referenceRange> <observationRange> <text> 80.0-100.0</text> </observationRange> </referenceRange> </observation> </component> <component> <observation moodCode="EVN" classCode="OBS"> <templateId root= "216.840.1.794139.10.20.22.4.2" /> <id nullFlavor="NA" /> < code codeSystem="local" code="MO#" displayName="MONOCYTE #" /> < statusCode code="completed" /> <effectiveTime value="563618569379" /> <value unit="k/cumm" xsi:type="PQ" value="0.8" /> < referenceRange> <observationRange> <text>0.1-1.0</text> </observationRange> </referenceRange> </observation > </component> <component> <observation moodCode="EVN" classCode="OBS"> <templateId root="10.03.840.1.237225...4.2" /> <id nullFlavor="NA" /> <code codeSystem="local" code="MO% " displayName="MONOCYTE %" /> <statusCode code="completed" /> <effectiveTime value="171847469945" /> <value unit="%" xsi: type="PQ" value="15" /> <interpretationCode codeSystem="local" code="* " /> <referenceRange> <observationRange> <text> 4-6</text> </observationRange> </referenceRange> </ observation> </component> <component> <observation moodCode= "EVN" classCode="OBS"> <templateId root="10.03.840.1.979203.10..4.2 " /> <id nullFlavor="NA" /> <code codeSystem="local" code="RBC " displayName="RED BLOOD CELL" /> <statusCode code="completed" /> <effectiveTime value="598946548621" /> <value unit="m/cumm" xsi: type="PQ" value="3.69" /> <interpretationCode codeSystem="local" code= "*" /> <referenceRange> <observationRange> < text>4.00-6.00</text> </observationRange> </referenceRange> </observation> </component> <component> <observation moodCode="EVN" classCode="OBS"> <templateId root= "2.16.840.1.195098.10..22.4.2" /> <id nullFlavor="NA" /> < code codeSystem="local" code="RDW" displayName="RED CELL DISTRIBUTION WIDTH" /> <statusCode code="completed" /> <effectiveTime value= "" /> <value unit="%" xsi:type="PQ" value="18.6" /> <interpretationCode codeSystem="local" code="*" /> < referenceRange> <observationRange> <text>11.0-15.6</text > </observationRange> </referenceRange> </observation > </component> <component> <observation moodCode="EVN" classCode="OBS"> <templateId root="216.840.1.482065.10..22.4.2" /> <id nullFlavor="NA" /> <code codeSystem="local" code="WBC" displayName="WHITE BLOOD CELL" /> <statusCode code="completed" /> <effectiveTime value="" /> <value unit="k/cumm" xsi: type="PQ" value="5.2" /> <referenceRange> <observationRange > <text>5.0-10.0</text> </observationRange> </ referenceRange> </observation> </component> <component> <observation moodCode="EVN" classCode="OBS"> <templateId root= "2.16.840.1.400353.10..22.4.2" /> <id nullFlavor="NA" /> < code codeSystem="local" code="HGBT" displayName="HEMOGLOBIN" /> < statusCode code="completed" /> <effectiveTime value="" /> <value unit="gm/dL" xsi:type="PQ" value="8.4" /> < interpretationCode codeSystem="local" code="*" /> <referenceRange> <observationRange> <text>12.0-16.0</text> </ observationRange> </referenceRange> </observation> </ component> <component> <observation moodCode="EVN" classCode="OBS"> <templateId root="216.840.1.590662..4.2" /> <id nullFlavor="NA" /> <code codeSystem="local" code="HCTT" displayName= "HEMATOCRIT" /> <statusCode code="completed" /> < effectiveTime value="" /> <value unit="%" xsi:type="PQ " value="27.3" /> <interpretationCode codeSystem="local" code="*" /> <referenceRange> <observationRange> <text>37.0- 47.0</text> </observationRange> </referenceRange> </ observation> </component> <component> <observation moodCode= "EVN" classCode="OBS"> <templateId root="216.840.1.544855.10.2022.4.2 " /> <id nullFlavor="NA" /> <code codeSystem="local" code="PLT " displayName="PLATELET COUNT" /> <statusCode code="completed" /> <effectiveTime value="" /> <value unit="k/cumm" xsi: type="PQ" value="327" /> <referenceRange> <observationRange > <text>150-400</text> </observationRange> </ referenceRange> </observation> </component> </organizer> </entry > <entry> <organizer moodCode="EVN" classCode="BATTERY"> <templateId root="216.840.1.197408.10..22.4.1" /> <id nullFlavor="NA" /> <code codeSystem="local" code="iTROPI" displayName="TROPONIN I BEDSIDE" /> < statusCode code="completed" /> <component> <observation moodCode= "EVN" classCode="OBS"> <templateId root="2.16.840.1.191795.10...4.2 " /> <id nullFlavor="NA" /> <code codeSystem="local" code= "CMETHOD" displayName="METHOD" /> <statusCode code="completed" /> <effectiveTime value="" /> <value unit="" xsi:type="PQ " value="Bedside" /> <referenceRange> <observationRange> <text /> </observationRange> </referenceRange> </observation> </component> <component> <observation moodCode="EVN" classCode="OBS"> <templateId root= "216.840.1.789321.10..22.4.2" /> <id nullFlavor="NA" /> < code codeSystem="local" code="TROPI" displayName="TROPONIN I" /> < statusCode code="completed" /> <effectiveTime value="" /> <value unit="ng/mL" xsi:type="PQ" value="< 0.04" /> < referenceRange> <observationRange> <text>< 0.11</text > </observationRange> </referenceRange> </observation > </component> </organizer> </entry> <entry> <organizer moodCode= "EVN" classCode="BATTERY"> <templateId root="2.16.840.1.098579.10..22.4.1 " /> <id nullFlavor="NA" /> <code codeSystem="local" code="UA" displayName="URINALYSIS, ROUTINE" /> <statusCode code="completed" /> < component> <observation moodCode="EVN" classCode="OBS"> < templateId root="2.16.840.1.113537.10..4.2" /> <id nullFlavor="NA " /> <code codeSystem="local" code="LEUESU" displayName="UA LEUKOCYTE ESTERASE DIPSTICK" /> <statusCode code="completed" /> < effectiveTime value="370396233604" /> <value unit="" xsi:type="PQ" value="NEGATIVE" /> <referenceRange> <observationRange> <text>NEGATIVE</text> </observationRange> </ referenceRange> </observation> </component> <component> <observation moodCode="EVN" classCode="OBS"> <templateId root= "216.840.1.854101.10..22.4.2" /> <id nullFlavor="NA" /> < code codeSystem="local" code="NITRIU" displayName="UA NITRITE DIPSTICK" /> <statusCode code="completed" /> <effectiveTime value="362669535381 " /> <value unit="" xsi:type="PQ" value="NEGATIVE" /> < referenceRange> <observationRange> <text>NEGATIVE</text > </observationRange> </referenceRange> </observation > </component> <component> <observation moodCode="EVN" classCode="OBS"> <templateId root="16.840.1.130348.10..22.4.2" /> <id nullFlavor="NA" /> <code codeSystem="local" code="PROTEIU " displayName="UA PROTEIN DIPSTICK" /> <statusCode code="completed" /> <effectiveTime value="544955596709" /> <value unit="" xsi: type="PQ" value="NEGATIVE" /> <referenceRange> < observationRange> <text>NEGATIVE</text> </ observationRange> </referenceRange> </observation> </ component> <component> <observation moodCode="EVN" classCode="OBS"> <templateId root="16.840.1.479327.10..4.2" /> <id nullFlavor="NA" /> <code codeSystem="local" code="DGLUU" displayName= "UA GLUCOSE DIPSTICK" /> <statusCode code="completed" /> < effectiveTime value="" /> <value unit="" xsi:type="PQ" value="NEGATIVE" /> <referenceRange> <observationRange> <text>NEGATIVE</text> </observationRange> </ referenceRange> </observation> </component> <component> <observation moodCode="EVN" classCode="OBS"> <templateId root= "10.03.840.1.283002.10..4.2" /> <id nullFlavor="NA" /> < code codeSystem="local" code="KETONU" displayName="UA KETONE DIPSTICK" /> <statusCode code="completed" /> <effectiveTime value="678788668518 " /> <value unit="" xsi:type="PQ" value="NEGATIVE" /> < referenceRange> <observationRange> <text>NEGATIVE</text > </observationRange> </referenceRange> </observation > </component> <component> <observation moodCode="EVN" classCode="OBS"> <templateId root="216.840.1.664615.10.4.2" /> <id nullFlavor="NA" /> <code codeSystem="local" code="UROBILU " displayName="UA UROBILINOGEN DIPSTICK" /> <statusCode code="completed " /> <effectiveTime value="800275903482" /> <value unit="" xsi :type="PQ" value="NORMAL" /> <referenceRange> < observationRange> <text>NORMAL</text> </observationRange > </referenceRange> </observation> </component> < component> <observation moodCode="EVN" classCode="OBS"> < templateId root="216.840.1.040255.10.4.2" /> <id nullFlavor="NA " /> <code codeSystem="local" code="BILU" displayName="UA BILIRUBIN DIPSTICK" /> <statusCode code="completed" /> <effectiveTime value="" /> <value unit="" xsi:type="PQ" value="NEGATIVE" / > <referenceRange> <observationRange> <text> NEGATIVE</text> </observationRange> </referenceRange> </observation> </component> <component> <observation moodCode ="EVN" classCode="OBS"> <templateId root= "216.840.1.451773.10.4.2" /> <id nullFlavor="NA" /> < code codeSystem="local" code="ADAM" displayName="UA BLOOD DIPSTICK" /> < statusCode code="completed" /> <effectiveTime value="361358837102" /> <value unit="" xsi:type="PQ" value="TRACE" /> < interpretationCode codeSystem="local" code="*" /> <referenceRange> <observationRange> <text>NEGATIVE</text> </ observationRange> </referenceRange> </observation> </ component> <component> <observation moodCode="EVN" classCode="OBS"> <templateId root="216.840.1.128250.10...4.2" /> <id nullFlavor="NA" /> <code codeSystem="local" code="SPGRU" displayName= "UA SPECIFIC GRAVITY" /> <statusCode code="completed" /> < effectiveTime value="369564999828" /> <value unit="" xsi:type="PQ" value="1.015" /> <referenceRange> <observationRange> <text>1.015-1.025</text> </observationRange> </ referenceRange> </observation> </component> <component> <observation moodCode="EVN" classCode="OBS"> <templateId root= "10.03.840.1.019847.10..4.2" /> <id nullFlavor="NA" /> < code codeSystem="local" code="INGRID" displayName="UR PH" /> <statusCode code="completed" /> <effectiveTime value="903590653145" /> < value unit="" xsi:type="PQ" value="6.0" /> <referenceRange> <observationRange> <text>5.0-7.0</text> </ observationRange> </referenceRange> </observation> </ component> </organizer> </entry> <entry> <organizer moodCode="EVN" classCode="BATTERY"> <templateId root="16.840.1.419895.10..22.4.1" /> <id nullFlavor="NA" /> <code codeSystem="local" code="UAMICRO" displayName="UA MICROSCOPIC" /> <statusCode code="completed" /> < component> <observation moodCode="EVN" classCode="OBS"> < templateId root="216.840.1.371892.10.4.2" /> <id nullFlavor="NA " /> <code codeSystem="local" code="RBCU" displayName="UA RBC" /> <statusCode code="completed" /> <effectiveTime value="720817708809 " /> <value unit="rbc/hpf" xsi:type="PQ" value="0-3" /> < referenceRange> <observationRange> <text>0 - 3</text> </observationRange> </referenceRange> </observation> </component> <component> <observation moodCode="EVN" classCode= "OBS"> <templateId root="10.03.840.1.635720.06.06.22.4.2" /> < id nullFlavor="NA" /> <code codeSystem="local" code="UAVOL" displayName ="UA VOLUME FOR EXAM" /> <statusCode code="completed" /> < effectiveTime value="388036775118" /> <value unit="mL" xsi:type="PQ" value="12.0" /> <referenceRange> <observationRange> <text>(12mL STD)</text> </observationRange> </ referenceRange> </observation> </component> <component> <observation moodCode="EVN" classCode="OBS"> <templateId root= "10.03.840.1.353459.06.06.22.4.2" /> <id nullFlavor="NA" /> < code codeSystem="local" code="WBCU" displayName="UA WBC" /> < statusCode code="completed" /> <effectiveTime value="960962201338" /> <value unit="wbc/hpf" xsi:type="PQ" value="0-1" /> < referenceRange> <observationRange> <text>0 - 5</text> </observationRange> </referenceRange> </observation> </component> </organizer> </entry> <entry> <organizer moodCode="EVN " classCode="BATTERY"> <templateId root="10.03.840.1.930156.10..22.4.1" / > <id nullFlavor="NA" /> <code codeSystem="local" code="iCHEM8" displayName="CHEM/HEM PROFILE-BEDSIDE" /> <statusCode code="completed" /> <component> <observation moodCode="EVN" classCode="OBS"> < templateId root="10.03.840.1.798079.10...4.2" /> <id nullFlavor="NA " /> <code codeSystem="local" code="K" displayName="POTASSIUM" /> <statusCode code="completed" /> <effectiveTime value="317616047436 " /> <value unit="mmol/L" xsi:type="PQ" value="4.1" /> < referenceRange> <observationRange> <text>3.5-5.3</text> </observationRange> </referenceRange> </observation > </component> <component> <observation moodCode="EVN" classCode="OBS"> <templateId root="10.03.840.1.620683.10..22.4.2" /> <id nullFlavor="NA" /> <code codeSystem="local" code="CMETHOD " displayName="METHOD" /> <statusCode code="completed" /> < effectiveTime value="103969855395" /> <value unit="" xsi:type="PQ" value="Bedside" /> <referenceRange> <observationRange> <text /> </observationRange> </referenceRange> </observation> </component> <component> <observation moodCode="EVN" classCode="OBS"> <templateId root= "16.840.1.380712.22.4.2" /> <id nullFlavor="NA" /> < code codeSystem="local" code="GAP" displayName="ANION GAP" /> < statusCode code="completed" /> <effectiveTime value="765901493022" /> <value unit="mmol/L" xsi:type="PQ" value="17" /> < referenceRange> <observationRange> <text>10-20</text> </observationRange> </referenceRange> </observation> </component> <component> <observation moodCode="EVN" classCode= "OBS"> <templateId root="10.03.840.1.931466.06.06.22.4.2" /> < id nullFlavor="NA" /> <code codeSystem="local" code="HMETHOD" displayName="METHOD" /> <statusCode code="completed" /> < effectiveTime value="442072389136" /> <value unit="" xsi:type="PQ" value="Bedside" /> <referenceRange> <observationRange> <text /> </observationRange> </referenceRange> </observation> </component> <component> <observation moodCode="EVN" classCode="OBS"> <templateId root= "10.03.840.1.712216.1022.4.2" /> <id nullFlavor="NA" /> < code codeSystem="local" code="GLU" displayName="GLUCOSE" /> < statusCode code="completed" /> <effectiveTime value="598693994456" /> <value unit="mg/dL" xsi:type="PQ" value="114" /> < interpretationCode codeSystem="local" code="*" /> <referenceRange> <observationRange> <text>70-99</text> </ observationRange> </referenceRange> </observation> </ component> <component> <observation moodCode="EVN" classCode="OBS"> <templateId root="216.840.1.126327.10.20.22.4.2" /> <id nullFlavor="NA" /> <code codeSystem="local" code="BUN" displayName= "BLOOD UREA NITROGEN" /> <statusCode code="completed" /> < effectiveTime value="939105831181" /> <value unit="mg/dL" xsi:type="PQ " value="15" /> <referenceRange> <observationRange> <text>7-20</text> </observationRange> </referenceRange > </observation> </component> <component> <observation moodCode="EVN" classCode="OBS"> <templateId root= "10.03.840.1.595968.10..22.4.2" /> <id nullFlavor="NA" /> < code codeSystem="local" code="CREAT" displayName="CREATININE" /> < statusCode code="completed" /> <effectiveTime value="836720875082" /> <value unit="mg/dL" xsi:type="PQ" value="0.9" /> < referenceRange> <observationRange> <text>0.6-1.0</text> </observationRange> </referenceRange> </observation > </component> <component> <observation moodCode="EVN" classCode="OBS"> <templateId root="10.03.840.1.777827.10.20.22.4.2" /> <id nullFlavor="NA" /> <code codeSystem="local" code="HGBT" displayName="HEMOGLOBIN" /> <statusCode code="completed" /> < effectiveTime value="241982413751" /> <value unit="gm/dL" xsi:type="PQ " value="11.9" /> <interpretationCode codeSystem="local" code="*" /> <referenceRange> <observationRange> <text>12.0- 16.0</text> </observationRange> </referenceRange> </ observation> </component> <component> <observation moodCode= "EVN" classCode="OBS"> <templateId root="2.16.840.1.060051.10.20.22.4.2 " /> <id nullFlavor="NA" /> <code codeSystem="local" code= "HCTT" displayName="HEMATOCRIT" /> <statusCode code="completed" /> <effectiveTime value="185525879559" /> <value unit="%" xsi: type="PQ" value="35.0" /> <interpretationCode codeSystem="local" code= "*" /> <referenceRange> <observationRange> < text>37.0-47.0</text> </observationRange> </referenceRange> </observation> </component> <component> <observation moodCode="EVN" classCode="OBS"> <templateId root= "2.16.840.1.967595.10.20.22.4.2" /> <id nullFlavor="NA" /> < code codeSystem="local" code="NA" displayName="SODIUM" /> <statusCode code="completed" /> <effectiveTime value="366162576146" /> < value unit="mmol/L" xsi:type="PQ" value="132" /> <interpretationCode codeSystem="local" code="*" /> <referenceRange> < observationRange> <text>135-148</text> </ observationRange> </referenceRange> </observation> </ component> <component> <observation moodCode="EVN" classCode="OBS"> <templateId root="216.840.1.808363.10..22.4.2" /> <id nullFlavor="NA" /> <code codeSystem="local" code="CL" displayName= "CHLORIDE" /> <statusCode code="completed" /> <effectiveTime value="281109688748" /> <value unit="mmol/L" xsi:type="PQ" value="97" / > <interpretationCode codeSystem="local" code="*" /> < referenceRange> <observationRange> <text>98-110</text> </observationRange> </referenceRange> </observation> </component> <component> <observation moodCode="EVN" classCode ="OBS"> <templateId root="216.840.1.419970...4.2" /> < id nullFlavor="NA" /> <code codeSystem="local" code="CO2" displayName= "CARBON DIOXIDE" /> <statusCode code="completed" /> < effectiveTime value="093398745921" /> <value unit="mmol/L" xsi:type="PQ " value="22" /> <referenceRange> <observationRange> <text>21-32</text> </observationRange> </ referenceRange> </observation> </component> <component> <observation moodCode="EVN" classCode="OBS"> <templateId root= "216.840.1.182607.10..22.4.2" /> <id nullFlavor="NA" /> < code codeSystem="local" code="CAION" displayName="CALCIUM IONIZED" /> < statusCode code="completed" /> <effectiveTime value="267768009569" /> <value unit="mg/dL" xsi:type="PQ" value="4.7" /> < referenceRange> <observationRange> <text>4.5-5.3</text> </observationRange> </referenceRange> </observation > </component> </organizer> </entry> <entry> <organizer moodCode= "EVN" classCode="BATTERY"> <templateId root="16.840.1.439256.10.20.22.4.1 " /> <id nullFlavor="NA" /> <code codeSystem="local" code="WET" displayName="WET MOUNT" /> <statusCode code="completed" /> <component > <observation moodCode="EVN" classCode="OBS"> <templateId root= "10.03.840.1.043956.10.20.22.4.2" /> <id nullFlavor="NA" /> < code codeSystem="local" code="MB" displayName="Microbiology" /> < statusCode code="completed" /> <effectiveTime value="532472578746" /> <value xsi:type="ST" value="<pre><b>WET MOUNT</b> See BelowWET MOUNT(F ) Cosme Date/Time: 04/27/2016 : Irvin Date/Time: 04/27/2016 18:42SOURCE: VAGINALSPEC DESC: CLUE CELLSNO CLUE CELLS SEENTRICHOMONASNO TRICHOMONAS SEENWBCMANY WBCYEASTNO [facility] [place] [address]</pre>" /> <referenceRange > <observationRange> <text /> </ observationRange> </referenceRange> </observation> </ component> </organizer> </entry> <entry> <organizer moodCode="EVN" classCode="BATTERY"> <templateId root="10.03.840.1.299269.10.20.22.4.1" /> <id nullFlavor="NA" /> <code codeSystem="local" code="UA" displayName= "URINALYSIS, ROUTINE" /> <statusCode code="completed" /> <component> <observation moodCode="EVN" classCode="OBS"> <templateId root= "16.840.1.149890.06.06.22.4.2" /> <id nullFlavor="NA" /> < code codeSystem="local" code="LEUESU" displayName="UA LEUKOCYTE ESTERASE DIPSTICK" /> <statusCode code="completed" /> <effectiveTime value="" /> <value unit="" xsi:type="PQ" value="TRACE" /> <referenceRange> <observationRange> <text> NEGATIVE</text> </observationRange> </referenceRange> </observation> </component> <component> <observation moodCode ="EVN" classCode="OBS"> <templateId root= "840.1.956674.06.06.224.2" /> <id nullFlavor="NA" /> < code codeSystem="local" code="NITRIU" displayName="UA NITRITE DIPSTICK" /> <statusCode code="completed" /> <effectiveTime value="614483200585 " /> <value unit="" xsi:type="PQ" value="NEGATIVE" /> < referenceRange> <observationRange> <text>NEGATIVE</text > </observationRange> </referenceRange> </observation > </component> <component> <observation moodCode="EVN" classCode="OBS"> <templateId root="10.03.840.1.599665.06.06.22.4.2" /> <id nullFlavor="NA" /> <code codeSystem="local" code="PROTEIU " displayName="UA PROTEIN DIPSTICK" /> <statusCode code="completed" /> <effectiveTime value="" /> <value unit="" xsi: type="PQ" value="NEGATIVE" /> <referenceRange> < observationRange> <text>NEGATIVE</text> </ observationRange> </referenceRange> </observation> </ component> <component> <observation moodCode="EVN" classCode="OBS"> <templateId root="10.03.840.1.762710.10.4.2" /> <id nullFlavor="NA" /> <code codeSystem="local" code="DGLUU" displayName= "UA GLUCOSE DIPSTICK" /> <statusCode code="completed" /> < effectiveTime value="906092632288" /> <value unit="" xsi:type="PQ" value="NEGATIVE" /> <referenceRange> <observationRange> <text>NEGATIVE</text> </observationRange> </ referenceRange> </observation> </component> <component> <observation moodCode="EVN" classCode="OBS"> <templateId root= "840.1.114445.06.06.22.4.2" /> <id nullFlavor="NA" /> < code codeSystem="local" code="KETONU" displayName="UA KETONE DIPSTICK" /> <statusCode code="completed" /> <effectiveTime value="393343726637 " /> <value unit="" xsi:type="PQ" value="NEGATIVE" /> < referenceRange> <observationRange> <text>NEGATIVE</text > </observationRange> </referenceRange> </observation > </component> <component> <observation moodCode="EVN" classCode="OBS"> <templateId root="10.03.840.1.915507.10.4.2" /> <id nullFlavor="NA" /> <code codeSystem="local" code="UROBILU " displayName="UA UROBILINOGEN DIPSTICK" /> <statusCode code="completed " /> <effectiveTime value="073422109528" /> <value unit="" xsi :type="PQ" value="NORMAL" /> <referenceRange> < observationRange> <text>NORMAL</text> </observationRange > </referenceRange> </observation> </component> < component> <observation moodCode="EVN" classCode="OBS"> < templateId root="216.840.1.290137.06.06.22.4.2" /> <id nullFlavor="NA " /> <code codeSystem="local" code="BILU" displayName="UA BILIRUBIN DIPSTICK" /> <statusCode code="completed" /> <effectiveTime value="851054938042" /> <value unit="" xsi:type="PQ" value="NEGATIVE" / > <referenceRange> <observationRange> <text> NEGATIVE</text> </observationRange> </referenceRange> </observation> </component> <component> <observation moodCode ="EVN" classCode="OBS"> <templateId root= "10.03.840.1.450481.06.06.22.4.2" /> <id nullFlavor="NA" /> < code codeSystem="local" code="ADAM" displayName="UA BLOOD DIPSTICK" /> < statusCode code="completed" /> <effectiveTime value="520109868340" /> <value unit="" xsi:type="PQ" value="TRACE" /> < interpretationCode codeSystem="local" code="*" /> <referenceRange> <observationRange> <text>NEGATIVE</text> </ observationRange> </referenceRange> </observation> </ component> <component> <observation moodCode="EVN" classCode="OBS"> <templateId root="216.840.1.304940...4.2" /> <id nullFlavor="NA" /> <code codeSystem="local" code="SPGRU" displayName= "UA SPECIFIC GRAVITY" /> <statusCode code="completed" /> < effectiveTime value="267065808273" /> <value unit="" xsi:type="PQ" value="1.025" /> <referenceRange> <observationRange> <text>1.015-1.025</text> </observationRange> </ referenceRange> </observation> </component> <component> <observation moodCode="EVN" classCode="OBS"> <templateId root= "840.1.150043.06.06.22.4.2" /> <id nullFlavor="NA" /> < code codeSystem="local" code="INGRID" displayName="UR PH" /> <statusCode code="completed" /> <effectiveTime value="794792005830" /> < value unit="" xsi:type="PQ" value="6.0" /> <referenceRange> <observationRange> <text>5.0-7.0</text> </ observationRange> </referenceRange> </observation> </ component> </organizer> </entry> <entry> <organizer moodCode="EVN" classCode="BATTERY"> <templateId root="840.1.323457.06.06.22.4.1" /> <id nullFlavor="NA" /> <code codeSystem="local" code="UAMICRO" displayName="UA MICROSCOPIC" /> <statusCode code="completed" /> < component> <observation moodCode="EVN" classCode="OBS"> < templateId root="10.03.840.1.869245.06.06.22.4.2" /> <id nullFlavor="NA " /> <code codeSystem="local" code="MUCUSU" displayName="UA MUCUS" /> <statusCode code="completed" /> <effectiveTime value= "191234688505" /> <value unit="" xsi:type="PQ" value="1+" /> < referenceRange> <observationRange> <text>NEG TO 1+</text > </observationRange> </referenceRange> </observation > </component> <component> <observation moodCode="EVN" classCode="OBS"> <templateId root="216.840.1.395605.06.06.22.4.2" /> <id nullFlavor="NA" /> <code codeSystem="local" code="RBCU" displayName="UA RBC" /> <statusCode code="completed" /> < effectiveTime value="754496125700" /> <value unit="rbc/hpf" xsi:type= "PQ" value="0-3" /> <referenceRange> <observationRange> <text>0 - 3</text> </observationRange> </ referenceRange> </observation> </component> <component> <observation moodCode="EVN" classCode="OBS"> <templateId root= "10.03.840.1.250245.06.06.22.4.2" /> <id nullFlavor="NA" /> < code codeSystem="local" code="UAVOL" displayName="UA VOLUME FOR EXAM" /> <statusCode code="completed" /> <effectiveTime value="353129673437" /> <value unit="mL" xsi:type="PQ" value="12.0" /> < referenceRange> <observationRange> <text>(12mL STD)</ text> </observationRange> </referenceRange> </ observation> </component> <component> <observation moodCode= "EVN" classCode="OBS"> <templateId root="216.840.1.612272...4.2 " /> <id nullFlavor="NA" /> <code codeSystem="local" code= "WBCU" displayName="UA WBC" /> <statusCode code="completed" /> <effectiveTime value="617431448776" /> <value unit="wbc/hpf" xsi:type ="PQ" value="2-5" /> <referenceRange> <observationRange> <text>0 - 5</text> </observationRange> </ referenceRange> </observation> </component> </organizer> </entry > <entry> <organizer moodCode="EVN" classCode="BATTERY"> <templateId root="2.16.840.1.068675.10.20.22.4.1" /> <id nullFlavor="NA" /> <code codeSystem="local" code="CHL" displayName="CHLAMYDIA DNA BY PCR" /> < statusCode code="completed" /> <component> <observation moodCode= "EVN" classCode="OBS"> <templateId root="2.16.840.1.983281.10.20.22.4.2 " /> <id nullFlavor="NA" /> <code codeSystem="local" code="MB " displayName="Microbiology" /> <statusCode code="completed" /> <effectiveTime value="843311529510" /> <value xsi:type="ST" value="< pre><b>CHLAMYDIA DNA BY PCR - GONORRHOEA DNA BY PCR</b> See BelowCHLAMYDIA DNA BY PCR(F) Cosme Date/Time: 04/27/2016 18:15 Irvin Date/Time: 04/29/2016 13:36SOURCE: URINESPEC DESC: [facility], [place] [address]Dmn BelowGONORRHOEA DNA BY PCR(F) Cosme Date/Time: 04/27/2016 18:15 Irvin Date/ Time: 04/29/2016 13:36SOURCE: URINESPEC DESC: [facility] [place] [place] [address]</pre>" /> <referenceRange> <observationRange> <text /> </observationRange> </referenceRange> </observation> </component> </organizer > </entry> <entry> <organizer moodCode="EVN" classCode="BATTERY"> < templateId root="216.840.1.072516.10..22.4.1" /> <id nullFlavor="NA" /> <code codeSystem="local" code="PREGU" displayName="UR TEST" /> <statusCode code="completed" /> <component> <observation moodCode="EVN" classCode="OBS"> <templateId root= "10.03.840.1.124240.10...4.2" /> <id nullFlavor="NA" /> < code codeSystem="local" code="PREGU" displayName="UR TEST" /> <statusCode code="completed" /> <effectiveTime value="[id number]" / > <value unit="" xsi:type="PQ" value="NEGATIVE" /> < referenceRange> <observationRange> <text>NEGATIVE</text > </observationRange> </referenceRange> </observation > </component> </organizer> </entry> <entry> <organizer moodCode= "EVN" classCode="BATTERY"> <templateId root="10.03.840.1.992803.10..22.4.1 " /> <id nullFlavor="NA" /> <code codeSystem="local" code="GRAM" displayName="GRAM STAIN - CHLAMYDIA DNA BY PCR" /> <statusCode code= "completed" /> <component> <observation moodCode="EVN" classCode= "OBS"> <templateId root="10.03.840.1.602805.10..22.4.2" /> < id nullFlavor="NA" /> <code codeSystem="local" code="MB" displayName= "Microbiology" /> <statusCode code="completed" /> < effectiveTime value="[id number]" /> <value xsi:type="ST" value="<pre> <b>GRAM STAIN</b> See BelowGRAM STAIN(F) Cosme Date/Time: 2015 18:22 Irvin Date/Time: 04/27/2016 18:48SOURCE : VAGINALSPEC DESC: GRAM STAINMODERATE NEUTROPHILSRARE MIXED BACTERIAL FLORANO ORGANISMS SEEN RESEMBLING NEISSERIA [facility] [place] [address]</pre>" /> <referenceRange> < observationRange> <text /> </observationRange> </referenceRange> </observation> </component> </organizer> </ entry> <entry> <organizer moodCode="EVN" classCode="BATTERY"> < templateId root="2.16.840.1.288777.10.20.22.4.1" /> <id nullFlavor="NA" /> <code codeSystem="local" code="CBCD" displayName="CBC W/DIFF" /> < statusCode code="completed" /> <component> <observation moodCode= "EVN" classCode="OBS"> <templateId root="2.16.840.1.806197.10..22.4.2 " /> <id nullFlavor="NA" /> <code codeSystem="local" code="BA# " displayName="BASOPHIL #" /> <statusCode code="completed" /> <effectiveTime value="[id number]" /> <value unit="k/cumm" xsi:type= "PQ" value="0.1" /> <referenceRange> <observationRange> <text>0.0-0.2</text> </observationRange> </ referenceRange> </observation> </component> <component> <observation moodCode="EVN" classCode="OBS"> <templateId root= "216.840.1.628925.10..22.4.2" /> <id nullFlavor="NA" /> < code codeSystem="local" code="BA%" displayName="BASOPHIL %" /> <statusCode code="completed" /> <effectiveTime value="" /> <value unit="%" xsi:type="PQ" value="1" /> < referenceRange> <observationRange> <text>0-1</text> </observationRange> </referenceRange> </observation> </component> <component> <observation moodCode="EVN" classCode= "OBS"> <templateId root="16.840.1.328056...4.2" /> < id nullFlavor="NA" /> <code codeSystem="local" code="EO#" displayName= "EOSINOPHIL #" /> <statusCode code="completed" /> < effectiveTime value="" /> <value unit="k/cumm" xsi:type="PQ " value="0.2" /> <referenceRange> <observationRange> <text>0.1-0.5</text> </observationRange> </ referenceRange> </observation> </component> <component> <observation moodCode="EVN" classCode="OBS"> <templateId root= "10.03.840.1.313327.10.2022.4.2" /> <id nullFlavor="NA" /> < code codeSystem="local" code="EO%" displayName="EOSINOPHIL %" /> <statusCode code="completed" /> <effectiveTime value="" /> <value unit="%" xsi:type="PQ" value="3" /> < referenceRange> <observationRange> <text>2-4</text> </observationRange> </referenceRange> </observation> </component> <component> <observation moodCode="EVN" classCode= "OBS"> <templateId root="10.03.840.1.756369.10..4.2" /> < id nullFlavor="NA" /> <code codeSystem="local" code="GR#" displayName= "GRANULOCYTE #" /> <statusCode code="completed" /> < effectiveTime value="" /> <value unit="k/cumm" xsi:type="PQ " value="2.9" /> <referenceRange> <observationRange> <text>2.0-9.0</text> </observationRange> </ referenceRange> </observation> </component> <component> <observation moodCode="EVN" classCode="OBS"> <templateId root= "10.03.840.1.024612.10.4.2" /> <id nullFlavor="NA" /> < code codeSystem="local" code="GR%" displayName="GRANULOCYTE %" /> <statusCode code="completed" /> <effectiveTime value=" " /> <value unit="%" xsi:type="PQ" value="52" /> < referenceRange> <observationRange> <text>50-75</text> </observationRange> </referenceRange> </observation> </component> <component> <observation moodCode="EVN" classCode= "OBS"> <templateId root="10.03.840.1.874716.10..4.2" /> < id nullFlavor="NA" /> <code codeSystem="local" code="LY#" displayName= "LYMPHOCYTE #" /> <statusCode code="completed" /> < effectiveTime value="" /> <value unit="k/cumm" xsi:type="PQ " value="1.7" /> <referenceRange> <observationRange> <text>1.0-4.0</text> </observationRange> </ referenceRange> </observation> </component> <component> <observation moodCode="EVN" classCode="OBS"> <templateId root= "216.840.1.442682.1022.4.2" /> <id nullFlavor="NA" /> < code codeSystem="local" code="LY%" displayName="LYMPHOCYTE %" /> <statusCode code="completed" /> <effectiveTime value="" /> <value unit="%" xsi:type="PQ" value="31" /> < interpretationCode codeSystem="local" code="*" /> <referenceRange> <observationRange> <text>20-30</text> </ observationRange> </referenceRange> </observation> </ component> <component> <observation moodCode="EVN" classCode="OBS"> <templateId root="216.840.1.593484.1022.4.2" /> <id nullFlavor="NA" /> <code codeSystem="local" code="MCH" displayName= "MEAN CELL HGB" /> <statusCode code="completed" /> < effectiveTime value="" /> <value unit="pg" xsi:type="PQ" value="23.4" /> <interpretationCode codeSystem="local" code="*" /> <referenceRange> <observationRange> <text>27.0- 33.0</text> </observationRange> </referenceRange> </ observation> </component> <component> <observation moodCode= "EVN" classCode="OBS"> <templateId root="10.03.840.1.870418.10..22.4.2 " /> <id nullFlavor="NA" /> <code codeSystem="local" code= "MCHC" displayName="MEAN CELL HGB CONCENTRATION" /> <statusCode code= "completed" /> <effectiveTime value="" /> <value unit="g/dL" xsi:type="PQ" value="30.6" /> <interpretationCode codeSystem="local" code="*" /> <referenceRange> < observationRange> <text>32.0-37.0</text> </ observationRange> </referenceRange> </observation> </ component> <component> <observation moodCode="EVN" classCode="OBS"> <templateId root="840.1.112957.10..4.2" /> <id nullFlavor="NA" /> <code codeSystem="local" code="MCV" displayName= "MEAN CELL VOLUME" /> <statusCode code="completed" /> < effectiveTime value="" /> <value unit="fl" xsi:type="PQ" value="76.3" /> <interpretationCode codeSystem="local" code="*" /> <referenceRange> <observationRange> <text>80.0- 100.0</text> </observationRange> </referenceRange> </ observation> </component> <component> <observation moodCode= "EVN" classCode="OBS"> <templateId root="840.1.100225.10.22.4.2 " /> <id nullFlavor="NA" /> <code codeSystem="local" code="MO# " displayName="MONOCYTE #" /> <statusCode code="completed" /> <effectiveTime value="" /> <value unit="k/cumm" xsi:type= "PQ" value="0.7" /> <referenceRange> <observationRange> <text>0.1-1.0</text> </observationRange> </ referenceRange> </observation> </component> <component> <observation moodCode="EVN" classCode="OBS"> <templateId root= "216.840.1.558199...4.2" /> <id nullFlavor="NA" /> < code codeSystem="local" code="MO%" displayName="MONOCYTE %" /> <statusCode code="completed" /> <effectiveTime value="" /> <value unit="%" xsi:type="PQ" value="12" /> < interpretationCode codeSystem="local" code="*" /> <referenceRange> <observationRange> <text>4-6</text> </ observationRange> </referenceRange> </observation> </ component> <component> <observation moodCode="EVN" classCode="OBS"> <templateId root="216.840.1.624181.06.06.22.4.2" /> <id nullFlavor="NA" /> <code codeSystem="local" code="RBC" displayName=" RED BLOOD CELL" /> <statusCode code="completed" /> < effectiveTime value="" /> <value unit="m/cumm" xsi:type="PQ " value="3.89" /> <interpretationCode codeSystem="local" code="*" /> <referenceRange> <observationRange> <text>4.00- 6.00</text> </observationRange> </referenceRange> </ observation> </component> <component> <observation moodCode= "EVN" classCode="OBS"> <templateId root="216.840.1.564357.06.06.22.4.2 " /> <id nullFlavor="NA" /> <code codeSystem="local" code="RDW " displayName="RED CELL DISTRIBUTION WIDTH" /> <statusCode code= "completed" /> <effectiveTime value="" /> <value unit="%" xsi:type="PQ" value="15.7" /> <interpretationCode codeSystem="local" code="*" /> <referenceRange> < observationRange> <text>11.0-15.6</text> </ observationRange> </referenceRange> </observation> </ component> <component> <observation moodCode="EVN" classCode="OBS"> <templateId root="216.840.1.511284.06.06.22.4.2" /> <id nullFlavor="NA" /> <code codeSystem="local" code="WBC" displayName= "WHITE BLOOD CELL" /> <statusCode code="completed" /> < effectiveTime value="" /> <value unit="k/cumm" xsi:type="PQ " value="5.6" /> <referenceRange> <observationRange> <text>5.0-10.0</text> </observationRange> </ referenceRange> </observation> </component> <component> <observation moodCode="EVN" classCode="OBS"> <templateId root= "16.840.1.619838.06.06.22.4.2" /> <id nullFlavor="NA" /> < code codeSystem="local" code="HGBT" displayName="HEMOGLOBIN" /> < statusCode code="completed" /> <effectiveTime value="" /> <value unit="gm/dL" xsi:type="PQ" value="9.1" /> < interpretationCode codeSystem="local" code="*" /> <referenceRange> <observationRange> <text>12.0-16.0</text> </ observationRange> </referenceRange> </observation> </ component> <component> <observation moodCode="EVN" classCode="OBS"> <templateId root="10.03.840.1.966634.10.20.22.4.2" /> <id nullFlavor="NA" /> <code codeSystem="local" code="HCTT" displayName= "HEMATOCRIT" /> <statusCode code="completed" /> < effectiveTime value="" /> <value unit="%" xsi:type="PQ " value="29.7" /> <interpretationCode codeSystem="local" code="*" /> <referenceRange> <observationRange> <text>37.0- 47.0</text> </observationRange> </referenceRange> </ observation> </component> <component> <observation moodCode= "EVN" classCode="OBS"> <templateId root="840.1.107960.10..22.4.2 " /> <id nullFlavor="NA" /> <code codeSystem="local" code="PLT " displayName="PLATELET COUNT" /> <statusCode code="completed" /> <effectiveTime value="" /> <value unit="k/cumm" xsi: type="PQ" value="389" /> <referenceRange> <observationRange > <text>150-400</text> </observationRange> </ referenceRange> </observation> </component> </organizer> </entry > <entry> <organizer moodCode="EVN" classCode="BATTERY"> <templateId root="16.840.1.871003.10.20.22.4.1" /> <id nullFlavor="NA" /> <code codeSystem="local" code="iCHEM8" displayName="CHEM/HEM PROFILE-BEDSIDE" /> <statusCode code="completed" /> <component> <observation moodCode= "EVN" classCode="OBS"> <templateId root="16.840.1.490649.06.06.22.4.2 " /> <id nullFlavor="NA" /> <code codeSystem="local" code="K" displayName="POTASSIUM" /> <statusCode code="completed" /> < effectiveTime value="" /> <value unit="mmol/L" xsi:type="PQ " value="4.0" /> <referenceRange> <observationRange> <text>3.5-5.3</text> </observationRange> </ referenceRange> </observation> </component> <component> <observation moodCode="EVN" classCode="OBS"> <templateId root= "10.03.840.1.276509.06.06.22.4.2" /> <id nullFlavor="NA" /> < code codeSystem="local" code="CMETHOD" displayName="METHOD" /> < statusCode code="completed" /> <effectiveTime value="" /> <value unit="" xsi:type="PQ" value="Bedside" /> < referenceRange> <observationRange> <text /> < /observationRange> </referenceRange> </observation> </ component> <component> <observation moodCode="EVN" classCode="OBS"> <templateId root="16.840.1.208889.10.4.2" /> <id nullFlavor="NA" /> <code codeSystem="local" code="GAP" displayName= "ANION GAP" /> <statusCode code="completed" /> <effectiveTime value="" /> <value unit="mmol/L" xsi:type="PQ" value="15" / > <referenceRange> <observationRange> <text>10- 20</text> </observationRange> </referenceRange> </ observation> </component> <component> <observation moodCode= "EVN" classCode="OBS"> <templateId root="216.840.1.405045.10..4.2 " /> <id nullFlavor="NA" /> <code codeSystem="local" code= "HMETHOD" displayName="METHOD" /> <statusCode code="completed" /> <effectiveTime value="" /> <value unit="" xsi:type="PQ " value="Bedside" /> <referenceRange> <observationRange> <text /> </observationRange> </referenceRange> </observation> </component> <component> <observation moodCode="EVN" classCode="OBS"> <templateId root= "10.03.840.1.874622.06.06.22.4.2" /> <id nullFlavor="NA" /> < code codeSystem="local" code="GLU" displayName="GLUCOSE" /> < statusCode code="completed" /> <effectiveTime value="" /> <value unit="mg/dL" xsi:type="PQ" value="158" /> < interpretationCode codeSystem="local" code="*" /> <referenceRange> <observationRange> <text>70-99</text> </ observationRange> </referenceRange> </observation> </ component> <component> <observation moodCode="EVN" classCode="OBS"> <templateId root="10.03.840.1.661528.06.06.22.4.2" /> <id nullFlavor="NA" /> <code codeSystem="local" code="BUN" displayName= "BLOOD UREA NITROGEN" /> <statusCode code="completed" /> < effectiveTime value="" /> <value unit="mg/dL" xsi:type="PQ " value="27" /> <interpretationCode codeSystem="local" code="*" /> <referenceRange> <observationRange> <text>7-20</ text> </observationRange> </referenceRange> </ observation> </component> <component> <observation moodCode= "EVN" classCode="OBS"> <templateId root="216.840.1.759893.06.06.22.4.2 " /> <id nullFlavor="NA" /> <code codeSystem="local" code= "CREAT" displayName="CREATININE" /> <statusCode code="completed" /> <effectiveTime value="" /> <value unit="mg/dL" xsi: type="PQ" value="1.4" /> <interpretationCode codeSystem="local" code="* " /> <referenceRange> <observationRange> <text> 0.6-1.0</text> </observationRange> </referenceRange> </observation> </component> <component> <observation moodCode= "EVN" classCode="OBS"> <templateId root="216.840.1.644777.10..22.4.2 " /> <id nullFlavor="NA" /> <code codeSystem="local" code= "HGBT" displayName="HEMOGLOBIN" /> <statusCode code="completed" /> <effectiveTime value="" /> <value unit="gm/dL" xsi: type="PQ" value="10.2" /> <interpretationCode codeSystem="local" code= "*" /> <referenceRange> <observationRange> < text>12.0-16.0</text> </observationRange> </referenceRange> </observation> </component> <component> <observation moodCode="EVN" classCode="OBS"> <templateId root= "16.840.1.431517.10.20.22.4.2" /> <id nullFlavor="NA" /> < code codeSystem="local" code="HCTT" displayName="HEMATOCRIT" /> < statusCode code="completed" /> <effectiveTime value="" /> <value unit="%" xsi:type="PQ" value="30.0" /> < interpretationCode codeSystem="local" code="*" /> <referenceRange> <observationRange> <text>37.0-47.0</text> </ observationRange> </referenceRange> </observation> </ component> <component> <observation moodCode="EVN" classCode="OBS"> <templateId root="10.03.840.1.601305.10.22.4.2" /> <id nullFlavor="NA" /> <code codeSystem="local" code="NA" displayName= "SODIUM" /> <statusCode code="completed" /> <effectiveTime value="" /> <value unit="mmol/L" xsi:type="PQ" value="131" /> <interpretationCode codeSystem="local" code="*" /> < referenceRange> <observationRange> <text>135-148</text> </observationRange> </referenceRange> </observation > </component> <component> <observation moodCode="EVN" classCode="OBS"> <templateId root="16.840.1.840532.10.20.22.4.2" /> <id nullFlavor="NA" /> <code codeSystem="local" code="CL" displayName="CHLORIDE" /> <statusCode code="completed" /> < effectiveTime value="" /> <value unit="mmol/L" xsi:type="PQ " value="97" /> <interpretationCode codeSystem="local" code="*" /> <referenceRange> <observationRange> <text>98-110</ text> </observationRange> </referenceRange> </ observation> </component> <component> <observation moodCode= "EVN" classCode="OBS"> <templateId root="216.840.1.904118.10..22.4.2 " /> <id nullFlavor="NA" /> <code codeSystem="local" code="CO2 " displayName="CARBON DIOXIDE" /> <statusCode code="completed" /> <effectiveTime value="" /> <value unit="mmol/L" xsi: type="PQ" value="24" /> <referenceRange> <observationRange> <text>21-32</text> </observationRange> </ referenceRange> </observation> </component> <component> <observation moodCode="EVN" classCode="OBS"> <templateId root= "10.03.840.1.246003.10...4.2" /> <id nullFlavor="NA" /> < code codeSystem="local" code="CAION" displayName="CALCIUM IONIZED" /> < statusCode code="completed" /> <effectiveTime value="" /> <value unit="mg/dL" xsi:type="PQ" value="4.8" /> < referenceRange> <observationRange> <text>4.5-5.3</text> </observationRange> </referenceRange> </observation > </component> </organizer> </entry> <entry> <organizer moodCode= "EVN" classCode="BATTERY"> <templateId root="10.03.840.1.171520.10..22.4.1 " /> <id nullFlavor="NA" /> <code codeSystem="local" code="iTROPI" displayName="TROPONIN I BEDSIDE" /> <statusCode code="completed" /> < component> <observation moodCode="EVN" classCode="OBS"> < templateId root="2.16.840.1.767922.10.22.4.2" /> <id nullFlavor="NA " /> <code codeSystem="local" code="CMETHOD" displayName="METHOD" /> <statusCode code="completed" /> <effectiveTime value= "" /> <value unit="" xsi:type="PQ" value="Bedside" /> <referenceRange> <observationRange> <text /> </observationRange> </referenceRange> </observation> </component> <component> <observation moodCode="EVN" classCode="OBS "> <templateId root="216.840.1.294751.06.06.22.4.2" /> <id nullFlavor="NA" /> <code codeSystem="local" code="TROPI" displayName= "TROPONIN I" /> <statusCode code="completed" /> < effectiveTime value="" /> <value unit="ng/mL" xsi:type="PQ " value="< 0.04" /> <referenceRange> <observationRange> <text>< 0.11</text> </observationRange> </ referenceRange> </observation> </component> </organizer> </entry > <entry> <organizer moodCode="EVN" classCode="BATTERY"> <templateId root="2.16.840.1.454398...22.4.1" /> <id nullFlavor="NA" /> <code codeSystem="local" code="DIMER" displayName="D-DIMER QUANT" /> <statusCode code="completed" /> <component> <observation moodCode="EVN" classCode="OBS"> <templateId root="10.03.840.1.927076.10..22.4.2" /> <id nullFlavor="NA" /> <code codeSystem="local" code="DIMER" displayName="D-DIMER QUANT" /> <statusCode code="completed" /> <effectiveTime value="699928043818" /> <value unit="ng/mL" xsi:type= "PQ" value="664" /> <interpretationCode codeSystem="local" code="*" /> <referenceRange> <observationRange> <text>0- 229</text> </observationRange> </referenceRange> </ observation> </component> </organizer> </entry> <entry> <organizer moodCode="EVN" classCode="BATTERY"> <templateId root= "10.03.840.1.036489.10..22.4.1" /> <id nullFlavor="NA" /> <code codeSystem="local" code="iCHEM8" displayName="CHEM/HEM PROFILE-BEDSIDE" /> <statusCode code="completed" /> <component> <observation moodCode= "EVN" classCode="OBS"> <templateId root="10.03.840.1.919285.10.20.22.4.2 " /> <id nullFlavor="NA" /> <code codeSystem="local" code="K" displayName="POTASSIUM" /> <statusCode code="completed" /> < effectiveTime value="308589480416" /> <value unit="mmol/L" xsi:type="PQ " value="4.2" /> <referenceRange> <observationRange> <text>3.5-5.3</text> </observationRange> </ referenceRange> </observation> </component> <component> <observation moodCode="EVN" classCode="OBS"> <templateId root= "10.03.830.1.448623.06.06.22.4.2" /> <id nullFlavor="NA" /> < code codeSystem="local" code="CMETHOD" displayName="METHOD" /> < statusCode code="completed" /> <effectiveTime value="" /> <value unit="" xsi:type="PQ" value="Bedside" /> < referenceRange> <observationRange> <text /> < /observationRange> </referenceRange> </observation> </ component> <component> <observation moodCode="EVN" classCode="OBS"> <templateId root="216.840.1.210301.06.06.22.4.2" /> <id nullFlavor="NA" /> <code codeSystem="local" code="GAP" displayName= "ANION GAP" /> <statusCode code="completed" /> <effectiveTime value="" /> <value unit="mmol/L" xsi:type="PQ" value="15" / > <referenceRange> <observationRange> <text>10- 20</text> </observationRange> </referenceRange> </ observation> </component> <component> <observation moodCode= "EVN" classCode="OBS"> <templateId root="216.840.1.115312.06.06.22.4.2 " /> <id nullFlavor="NA" /> <code codeSystem="local" code= "HMETHOD" displayName="METHOD" /> <statusCode code="completed" /> <effectiveTime value="" /> <value unit="" xsi:type="PQ " value="Bedside" /> <referenceRange> <observationRange> <text /> </observationRange> </referenceRange> </observation> </component> <component> <observation moodCode="EVN" classCode="OBS"> <templateId root= "216.840.1.978497.10..22.4.2" /> <id nullFlavor="NA" /> < code codeSystem="local" code="GLU" displayName="GLUCOSE" /> < statusCode code="completed" /> <effectiveTime value="374833690426" /> <value unit="mg/dL" xsi:type="PQ" value="122" /> < interpretationCode codeSystem="local" code="*" /> <referenceRange> <observationRange> <text>70-99</text> </ observationRange> </referenceRange> </observation> </ component> <component> <observation moodCode="EVN" classCode="OBS"> <templateId root="216.840.1.275200.10...4.2" /> <id nullFlavor="NA" /> <code codeSystem="local" code="BUN" displayName= "BLOOD UREA NITROGEN" /> <statusCode code="completed" /> < effectiveTime value="128881370785" /> <value unit="mg/dL" xsi:type="PQ " value="15" /> <referenceRange> <observationRange> <text>7-20</text> </observationRange> </referenceRange > </observation> </component> <component> <observation moodCode="EVN" classCode="OBS"> <templateId root= "16.840.1.798016.10..22.4.2" /> <id nullFlavor="NA" /> < code codeSystem="local" code="CREAT" displayName="CREATININE" /> < statusCode code="completed" /> <effectiveTime value="496060543196" /> <value unit="mg/dL" xsi:type="PQ" value="0.9" /> < referenceRange> <observationRange> <text>0.6-1.0</text> </observationRange> </referenceRange> </observation > </component> <component> <observation moodCode="EVN" classCode="OBS"> <templateId root="16.840.1.924513.10.2022.4.2" /> <id nullFlavor="NA" /> <code codeSystem="local" code="HGBT" displayName="HEMOGLOBIN" /> <statusCode code="completed" /> < effectiveTime value="336189548133" /> <value unit="gm/dL" xsi:type="PQ " value="9.2" /> <interpretationCode codeSystem="local" code="*" /> <referenceRange> <observationRange> <text>12.0- 16.0</text> </observationRange> </referenceRange> </ observation> </component> <component> <observation moodCode= "EVN" classCode="OBS"> <templateId root="10.03.840.1.778336.1022.4.2 " /> <id nullFlavor="NA" /> <code codeSystem="local" code= "HCTT" displayName="HEMATOCRIT" /> <statusCode code="completed" /> <effectiveTime value="442985826989" /> <value unit="%" xsi: type="PQ" value="27.0" /> <interpretationCode codeSystem="local" code= "*" /> <referenceRange> <observationRange> < text>37.0-47.0</text> </observationRange> </referenceRange> </observation> </component> <component> <observation moodCode="EVN" classCode="OBS"> <templateId root= "10.03.840.1.950457.10.2022.4.2" /> <id nullFlavor="NA" /> < code codeSystem="local" code="NA" displayName="SODIUM" /> <statusCode code="completed" /> <effectiveTime value="" /> < value unit="mmol/L" xsi:type="PQ" value="135" /> <referenceRange> <observationRange> <text>135-148</text> </ observationRange> </referenceRange> </observation> </ component> <component> <observation moodCode="EVN" classCode="OBS"> <templateId root="216.840.1.715349.10.4.2" /> <id nullFlavor="NA" /> <code codeSystem="local" code="CL" displayName= "CHLORIDE" /> <statusCode code="completed" /> <effectiveTime value="" /> <value unit="mmol/L" xsi:type="PQ" value="100" /> <referenceRange> <observationRange> <text>98 -110</text> </observationRange> </referenceRange> </ observation> </component> <component> <observation moodCode= "EVN" classCode="OBS"> <templateId root="10.03.840.1.115829.06.06.22.4.2 " /> <id nullFlavor="NA" /> <code codeSystem="local" code="CO2 " displayName="CARBON DIOXIDE" /> <statusCode code="completed" /> <effectiveTime value="" /> <value unit="mmol/L" xsi: type="PQ" value="24" /> <referenceRange> <observationRange> <text>21-32</text> </observationRange> </ referenceRange> </observation> </component> <component> <observation moodCode="EVN" classCode="OBS"> <templateId root= "16.840.1.427526.10.22.4.2" /> <id nullFlavor="NA" /> < code codeSystem="local" code="CAION" displayName="CALCIUM IONIZED" /> < statusCode code="completed" /> <effectiveTime value="" /> <value unit="mg/dL" xsi:type="PQ" value="4.8" /> < referenceRange> <observationRange> <text>4.5-5.3</text> </observationRange> </referenceRange> </observation > </component> </organizer> </entry> <entry> <organizer moodCode= "EVN" classCode="BATTERY"> <templateId root="2.16.840.1.404069.10...4.1 " /> <id nullFlavor="NA" /> <code codeSystem="local" code="iTROPI" displayName="TROPONIN I BEDSIDE" /> <statusCode code="completed" /> < component> <observation moodCode="EVN" classCode="OBS"> < templateId root="2.16.840.1.728139.10...4.2" /> <id nullFlavor="NA " /> <code codeSystem="local" code="CMETHOD" displayName="METHOD" /> <statusCode code="completed" /> <effectiveTime value= "" /> <value unit="" xsi:type="PQ" value="Bedside" /> <referenceRange> <observationRange> <text /> </observationRange> </referenceRange> </observation> </component> <component> <observation moodCode="EVN" classCode="OBS "> <templateId root="216.840.1.264521...4.2" /> <id nullFlavor="NA" /> <code codeSystem="local" code="TROPI" displayName= "TROPONIN I" /> <statusCode code="completed" /> < effectiveTime value="" /> <value unit="ng/mL" xsi:type="PQ " value="< 0.04" /> <referenceRange> <observationRange> <text>< 0.11</text> </observationRange> </ referenceRange> </observation> </component> </organizer> </entry > <entry> <organizer moodCode="EVN" classCode="BATTERY"> <templateId root="216.840.1.367591.10..4.1" /> <id nullFlavor="NA" /> <code codeSystem="local" code="UA" displayName="URINALYSIS, ROUTINE" /> < statusCode code="completed" /> <component> <observation moodCode= "EVN" classCode="OBS"> <templateId root="216.840.1.198157.10...4.2 " /> <id nullFlavor="NA" /> <code codeSystem="local" code= "LEUESU" displayName="UA LEUKOCYTE ESTERASE DIPSTICK" /> <statusCode code="completed" /> <effectiveTime value="696723583215" /> < value unit="" xsi:type="PQ" value="NEGATIVE" /> <referenceRange> <observationRange> <text>NEGATIVE</text> </ observationRange> </referenceRange> </observation> </ component> <component> <observation moodCode="EVN" classCode="OBS"> <templateId root="16.840.1.920296.10..22.4.2" /> <id nullFlavor="NA" /> <code codeSystem="local" code="NITRIU" displayName= "UA NITRITE DIPSTICK" /> <statusCode code="completed" /> < effectiveTime value="350029473681" /> <value unit="" xsi:type="PQ" value="NEGATIVE" /> <referenceRange> <observationRange> <text>NEGATIVE</text> </observationRange> </ referenceRange> </observation> </component> <component> <observation moodCode="EVN" classCode="OBS"> <templateId root= "10.03.840.1.748714.10.4.2" /> <id nullFlavor="NA" /> < code codeSystem="local" code="PROTEIU" displayName="UA PROTEIN DIPSTICK" /> <statusCode code="completed" /> <effectiveTime value= "" /> <value unit="" xsi:type="PQ" value="NEGATIVE" /> <referenceRange> <observationRange> <text>NEGATIVE </text> </observationRange> </referenceRange> </ observation> </component> <component> <observation moodCode= "EVN" classCode="OBS"> <templateId root="840.1.068133.06.06.22.4.2 " /> <id nullFlavor="NA" /> <code codeSystem="local" code= "DGLUU" displayName="UA GLUCOSE DIPSTICK" /> <statusCode code= "completed" /> <effectiveTime value="118512465383" /> <value unit="" xsi:type="PQ" value="NEGATIVE" /> <referenceRange> < observationRange> <text>NEGATIVE</text> </ observationRange> </referenceRange> </observation> </ component> <component> <observation moodCode="EVN" classCode="OBS"> <templateId root="10.03.840.1.245943.06.06.22.4.2" /> <id nullFlavor="NA" /> <code codeSystem="local" code="KETONU" displayName= "UA KETONE DIPSTICK" /> <statusCode code="completed" /> < effectiveTime value="103661536054" /> <value unit="" xsi:type="PQ" value="NEGATIVE" /> <referenceRange> <observationRange> <text>NEGATIVE</text> </observationRange> </ referenceRange> </observation> </component> <component> <observation moodCode="EVN" classCode="OBS"> <templateId root= "16.840.1.924061.10.4.2" /> <id nullFlavor="NA" /> < code codeSystem="local" code="UROBILU" displayName="UA UROBILINOGEN DIPSTICK" / > <statusCode code="completed" /> <effectiveTime value= "258896851382" /> <value unit="" xsi:type="PQ" value="NORMAL" /> <referenceRange> <observationRange> <text>NORMAL</ text> </observationRange> </referenceRange> </ observation> </component> <component> <observation moodCode= "EVN" classCode="OBS"> <templateId root="10.03.840.1.632819.06.06.224.2 " /> <id nullFlavor="NA" /> <code codeSystem="local" code= "BILU" displayName="UA BILIRUBIN DIPSTICK" /> <statusCode code= "completed" /> <effectiveTime value="564349982458" /> <value unit="" xsi:type="PQ" value="NEGATIVE" /> <referenceRange> < observationRange> <text>NEGATIVE</text> </ observationRange> </referenceRange> </observation> </ component> <component> <observation moodCode="EVN" classCode="OBS"> <templateId root="10.03.840.1.688486...4.2" /> <id nullFlavor="NA" /> <code codeSystem="local" code="ADAM" displayName="UA BLOOD DIPSTICK" /> <statusCode code="completed" /> < effectiveTime value="520612166477" /> <value unit="" xsi:type="PQ" value="NEGATIVE" /> <referenceRange> <observationRange> <text>NEGATIVE</text> </observationRange> </ referenceRange> </observation> </component> <component> <observation moodCode="EVN" classCode="OBS"> <templateId root= "216.840.1.372748.10..22.4.2" /> <id nullFlavor="NA" /> < code codeSystem="local" code="SPGRU" displayName="UA SPECIFIC GRAVITY" /> <statusCode code="completed" /> <effectiveTime value="483065047874 " /> <value unit="" xsi:type="PQ" value="1.010" /> < interpretationCode codeSystem="local" code="*" /> <referenceRange> <observationRange> <text>1.015-1.025</text> </ observationRange> </referenceRange> </observation> </ component> <component> <observation moodCode="EVN" classCode="OBS"> <templateId root="216.840.1.937771.10..22.4.2" /> <id nullFlavor="NA" /> <code codeSystem="local" code="INGRID" displayName="UR PH" /> <statusCode code="completed" /> <effectiveTime value= "665527743221" /> <value unit="" xsi:type="PQ" value="5.5" /> <referenceRange> <observationRange> <text>5.0-7.0</text > </observationRange> </referenceRange> </observation > </component> </organizer> </entry> <entry> <organizer moodCode= "EVN" classCode="BATTERY"> <templateId root="2.16.840.1.961261.10.22.4.1 " /> <id nullFlavor="NA" /> <code codeSystem="local" code="iCHEM8" displayName="CHEM/HEM PROFILE-BEDSIDE" /> <statusCode code="completed" /> <component> <observation moodCode="EVN" classCode="OBS"> < templateId root="840.1.046403.06.06.22.4.2" /> <id nullFlavor="NA " /> <code codeSystem="local" code="K" displayName="POTASSIUM" /> <statusCode code="completed" /> <effectiveTime value="139545315905 " /> <value unit="mmol/L" xsi:type="PQ" value="3.5" /> < referenceRange> <observationRange> <text>3.5-5.3</text> </observationRange> </referenceRange> </observation > </component> <component> <observation moodCode="EVN" classCode="OBS"> <templateId root="840.1.470225.06.06.22.4.2" /> <id nullFlavor="NA" /> <code codeSystem="local" code="CMETHOD " displayName="METHOD" /> <statusCode code="completed" /> < effectiveTime value="786397073055" /> <value unit="" xsi:type="PQ" value="Bedside" /> <referenceRange> <observationRange> <text /> </observationRange> </referenceRange> </observation> </component> <component> <observation moodCode="EVN" classCode="OBS"> <templateId root= "10.03.840.1.068465.22.4.2" /> <id nullFlavor="NA" /> < code codeSystem="local" code="GAP" displayName="ANION GAP" /> < statusCode code="completed" /> <effectiveTime value="893755692166" /> <value unit="mmol/L" xsi:type="PQ" value="19" /> < referenceRange> <observationRange> <text>10-20</text> </observationRange> </referenceRange> </observation> </component> <component> <observation moodCode="EVN" classCode= "OBS"> <templateId root="216.840.1.864457.06.06.22.4.2" /> < id nullFlavor="NA" /> <code codeSystem="local" code="HMETHOD" displayName="METHOD" /> <statusCode code="completed" /> < effectiveTime value="741309579071" /> <value unit="" xsi:type="PQ" value="Bedside" /> <referenceRange> <observationRange> <text /> </observationRange> </referenceRange> </observation> </component> <component> <observation moodCode="EVN" classCode="OBS"> <templateId root= "16.840.1.946380.06.06.22.4.2" /> <id nullFlavor="NA" /> < code codeSystem="local" code="GLU" displayName="GLUCOSE" /> < statusCode code="completed" /> <effectiveTime value="693965289283" /> <value unit="mg/dL" xsi:type="PQ" value="173" /> < interpretationCode codeSystem="local" code="*" /> <referenceRange> <observationRange> <text>70-99</text> </ observationRange> </referenceRange> </observation> </ component> <component> <observation moodCode="EVN" classCode="OBS"> <templateId root="10.03.840.1.487980.06.06.22.4.2" /> <id nullFlavor="NA" /> <code codeSystem="local" code="BUN" displayName= "BLOOD UREA NITROGEN" /> <statusCode code="completed" /> < effectiveTime value="" /> <value unit="mg/dL" xsi:type="PQ " value="26" /> <interpretationCode codeSystem="local" code="*" /> <referenceRange> <observationRange> <text>7-20</ text> </observationRange> </referenceRange> </ observation> </component> <component> <observation moodCode= "EVN" classCode="OBS"> <templateId root="2.16.840.1.500551.06.06.22.4.2 " /> <id nullFlavor="NA" /> <code codeSystem="local" code= "CREAT" displayName="CREATININE" /> <statusCode code="completed" /> <effectiveTime value="" /> <value unit="mg/dL" xsi: type="PQ" value="1.0" /> <referenceRange> <observationRange > <text>0.6-1.0</text> </observationRange> </ referenceRange> </observation> </component> <component> <observation moodCode="EVN" classCode="OBS"> <templateId root= "2.16.840.1.306007.06.06.22.4.2" /> <id nullFlavor="NA" /> < code codeSystem="local" code="HGBT" displayName="HEMOGLOBIN" /> < statusCode code="completed" /> <effectiveTime value="094008389458" /> <value unit="gm/dL" xsi:type="PQ" value="11.9" /> < interpretationCode codeSystem="local" code="*" /> <referenceRange> <observationRange> <text>12.0-16.0</text> </ observationRange> </referenceRange> </observation> </ component> <component> <observation moodCode="EVN" classCode="OBS"> <templateId root="10.03.840.1.319477.10.20.22.4.2" /> <id nullFlavor="NA" /> <code codeSystem="local" code="HCTT" displayName= "HEMATOCRIT" /> <statusCode code="completed" /> < effectiveTime value="791157208034" /> <value unit="%" xsi:type="PQ " value="35.0" /> <interpretationCode codeSystem="local" code="*" /> <referenceRange> <observationRange> <text>37.0- 47.0</text> </observationRange> </referenceRange> </ observation> </component> <component> <observation moodCode= "EVN" classCode="OBS"> <templateId root="840.1.376456.10..4.2 " /> <id nullFlavor="NA" /> <code codeSystem="local" code="NA " displayName="SODIUM" /> <statusCode code="completed" /> < effectiveTime value="657122401168" /> <value unit="mmol/L" xsi:type="PQ " value="136" /> <referenceRange> <observationRange> <text>135-148</text> </observationRange> </ referenceRange> </observation> </component> <component> <observation moodCode="EVN" classCode="OBS"> <templateId root= "10.03.840.1.110301.10..4.2" /> <id nullFlavor="NA" /> < code codeSystem="local" code="CL" displayName="CHLORIDE" /> < statusCode code="completed" /> <effectiveTime value="615598708247" /> <value unit="mmol/L" xsi:type="PQ" value="103" /> < referenceRange> <observationRange> <text>98-110</text> </observationRange> </referenceRange> </observation> </component> <component> <observation moodCode="EVN" classCode ="OBS"> <templateId root="216.840.1.706777.06.06.22.4.2" /> < id nullFlavor="NA" /> <code codeSystem="local" code="CO2" displayName= "CARBON DIOXIDE" /> <statusCode code="completed" /> < effectiveTime value="042900648735" /> <value unit="mmol/L" xsi:type="PQ " value="19" /> <interpretationCode codeSystem="local" code="*" /> <referenceRange> <observationRange> <text>21-32</ text> </observationRange> </referenceRange> </ observation> </component> <component> <observation moodCode= "EVN" classCode="OBS"> <templateId root="216.840.1.116185.06.06.22.4.2 " /> <id nullFlavor="NA" /> <code codeSystem="local" code= "CAION" displayName="CALCIUM IONIZED" /> <statusCode code="completed" / > <effectiveTime value="680892356980" /> <value unit="mg/dL" xsi:type="PQ" value="4.7" /> <referenceRange> < observationRange> <text>4.5-5.3</text> </ observationRange> </referenceRange> </observation> </ component> </organizer> </entry> <entry> <organizer moodCode="EVN" classCode="BATTERY"> <templateId root="216.840.1.986968.10..22.4.1" /> <id nullFlavor="NA" /> <code codeSystem="local" code="iTROPI" displayName="TROPONIN I BEDSIDE" /> <statusCode code="completed" /> < component> <observation moodCode="EVN" classCode="OBS"> < templateId root="216.840.1.326438.10...4.2" /> <id nullFlavor="NA " /> <code codeSystem="local" code="CMETHOD" displayName="METHOD" /> <statusCode code="completed" /> <effectiveTime value= "604819862233" /> <value unit="" xsi:type="PQ" value="Bedside" /> <referenceRange> <observationRange> <text /> </observationRange> </referenceRange> </observation> </component> <component> <observation moodCode="EVN" classCode="OBS "> <templateId root="10.03.840.1.349399.10...4.2" /> <id nullFlavor="NA" /> <code codeSystem="local" code="TROPI" displayName= "TROPONIN I" /> <statusCode code="completed" /> < effectiveTime value="135067579392" /> <value unit="ng/mL" xsi:type="PQ " value="< 0.04" /> <referenceRange> <observationRange> <text>< 0.11</text> </observationRange> </ referenceRange> </observation> </component> </organizer> </entry > <entry> <organizer moodCode="EVN" classCode="BATTERY"> <templateId root="16.840.1.598626.10...4.1" /> <id nullFlavor="NA" /> <code codeSystem="local" code="LIVER" displayName="HEPATIC FUNCTION PANEL" /> < statusCode code="completed" /> <component> <observation moodCode= "EVN" classCode="OBS"> <templateId root="216.840.1.197134.10.4.2 " /> <id nullFlavor="NA" /> <code codeSystem="local" code= "BILUC" displayName="BILI UNCONJUGATED" /> <statusCode code="completed " /> <effectiveTime value="573837247505" /> <value unit="mg/dL " xsi:type="PQ" value="0.2" /> <referenceRange> < observationRange> <text>0.0-0.7</text> </ observationRange> </referenceRange> </observation> </ component> <component> <observation moodCode="EVN" classCode="OBS"> <templateId root="10.03.840.1.013456.06.06.22.4.2" /> <id nullFlavor="NA" /> <code codeSystem="local" code="AST" displayName="AST /SGOT" /> <statusCode code="completed" /> <effectiveTime value ="044492854707" /> <value unit="Units/L" xsi:type="PQ" value="13" /> <referenceRange> <observationRange> <text>10-37< /text> </observationRange> </referenceRange> </ observation> </component> <component> <observation moodCode= "EVN" classCode="OBS"> <templateId root="16.840.1.733526.06.06.22.4.2 " /> <id nullFlavor="NA" /> <code codeSystem="local" code="ALT " displayName="ALT/SGPT" /> <statusCode code="completed" /> < effectiveTime value="892275960465" /> <value unit="Units/L" xsi:type= "PQ" value="16" /> <referenceRange> <observationRange> <text>< 66</text> </observationRange> </ referenceRange> </observation> </component> <component> <observation moodCode="EVN" classCode="OBS"> <templateId root= "10.03.840.1.093329.10.22.4.2" /> <id nullFlavor="NA" /> < code codeSystem="local" code="TP" displayName="TOTAL PROTEIN" /> < statusCode code="completed" /> <effectiveTime value="056880329485" /> <value unit="gm/dL" xsi:type="PQ" value="8.6" /> < interpretationCode codeSystem="local" code="*" /> <referenceRange> <observationRange> <text>6.4-8.2</text> </ observationRange> </referenceRange> </observation> </ component> <component> <observation moodCode="EVN" classCode="OBS"> <templateId root="840.1.690801.06.06.22.4.2" /> <id nullFlavor="NA" /> <code codeSystem="local" code="ALB" displayName= "ALBUMIN" /> <statusCode code="completed" /> <effectiveTime value="403415742821" /> <value unit="gm/dL" xsi:type="PQ" value="3.2" / > <interpretationCode codeSystem="local" code="*" /> < referenceRange> <observationRange> <text>3.4-5.0</text> </observationRange> </referenceRange> </observation > </component> <component> <observation moodCode="EVN" classCode="OBS"> <templateId root="10.03.840.1.164495.22.4.2" /> <id nullFlavor="NA" /> <code codeSystem="local" code="BILTOT" displayName="BILI TOTAL" /> <statusCode code="completed" /> < effectiveTime value="005565686484" /> <value unit="mg/dL" xsi:type="PQ " value="0.3" /> <referenceRange> <observationRange> <text>0.0-1.0</text> </observationRange> </ referenceRange> </observation> </component> <component> <observation moodCode="EVN" classCode="OBS"> <templateId root= "216.840.1.803244.10.4.2" /> <id nullFlavor="NA" /> < code codeSystem="local" code="ALKP" displayName="ALKALINE PHOSPHATASE TOTAL" /> <statusCode code="completed" /> <effectiveTime value= "885851517391" /> <value unit="IU/L" xsi:type="PQ" value="114" /> <referenceRange> <observationRange> <text>45-117</ text> </observationRange> </referenceRange> </ observation> </component> <component> <observation moodCode= "EVN" classCode="OBS"> <templateId root="2.16.840.1.266359.10..4.2 " /> <id nullFlavor="NA" /> <code codeSystem="local" code= "BILC" displayName="BILI CONJUGATED" /> <statusCode code="completed" / > <effectiveTime value="889701210899" /> <value unit="mg/dL" xsi:type="PQ" value="< 0.1" /> <referenceRange> < observationRange> <text>0.0-0.3</text> </ observationRange> </referenceRange> </observation> </ component> </organizer> </entry> <entry> <organizer moodCode="EVN" classCode="BATTERY"> <templateId root="840.1.761089.10.4.1" /> <id nullFlavor="NA" /> <code codeSystem="local" code="LIP" displayName ="LIPASE" /> <statusCode code="completed" /> <component> < observation moodCode="EVN" classCode="OBS"> <templateId root= "840.1.853229.06.06.22.4.2" /> <id nullFlavor="NA" /> < code codeSystem="local" code="LIP" displayName="LIPASE" /> <statusCode code="completed" /> <effectiveTime value="478153150161" /> < value unit="Units/L" xsi:type="PQ" value="69" /> <interpretationCode codeSystem="local" code="*" /> <referenceRange> < observationRange> <text>73-393</text> </observationRange > </referenceRange> </observation> </component> </ organizer> </entry> <entry> <organizer moodCode="EVN" classCode="BATTERY"> <templateId root="840.1.141840.06.06.22.4.1" /> <id nullFlavor= "NA" /> <code codeSystem="local" code="DIMER" displayName="D-DIMER QUANT" / > <statusCode code="completed" /> <component> <observation moodCode="EVN" classCode="OBS"> <templateId root= "840.1.697238.06.06.22.4.2" /> <id nullFlavor="NA" /> < code codeSystem="local" code="DIMER" displayName="D-DIMER QUANT" /> < statusCode code="completed" /> <effectiveTime value="036223523009" /> <value unit="ng/mL" xsi:type="PQ" value="456" /> < interpretationCode codeSystem="local" code="*" /> <referenceRange> <observationRange> <text>0-229</text> </ observationRange> </referenceRange> </observation> </ component> </organizer> </entry> <entry> <organizer moodCode="EVN" classCode="BATTERY"> <templateId root="216.840.1.490114.10.22.4.1" /> <id nullFlavor="NA" /> <code codeSystem="local" code="CBCD" displayName="CBC W/DIFF" /> <statusCode code="completed" /> <component > <observation moodCode="EVN" classCode="OBS"> <templateId root= "16.840.1.074735...4.2" /> <id nullFlavor="NA" /> < code codeSystem="local" code="GR#" displayName="GRANULOCYTE #" /> < statusCode code="completed" /> <effectiveTime value="757825789081" /> <value unit="k/cumm" xsi:type="PQ" value="10.3" /> < interpretationCode codeSystem="local" code="*" /> <referenceRange> <observationRange> <text>2.0-9.0</text> </ observationRange> </referenceRange> </observation> </ component> <component> <observation moodCode="EVN" classCode="OBS"> <templateId root="216.840.1.602516.06.06.22.4.2" /> <id nullFlavor="NA" /> <code codeSystem="local" code="GR%" displayName= "GRANULOCYTE %" /> <statusCode code="completed" /> < effectiveTime value="959212854287" /> <value unit="%" xsi:type="PQ " value="86" /> <interpretationCode codeSystem="local" code="*" /> <referenceRange> <observationRange> <text>50-75</ text> </observationRange> </referenceRange> </ observation> </component> <component> <observation moodCode= "EVN" classCode="OBS"> <templateId root="216.840.1.263716.10.20.22.4.2 " /> <id nullFlavor="NA" /> <code codeSystem="local" code="LY# " displayName="LYMPHOCYTE #" /> <statusCode code="completed" /> <effectiveTime value="491104334473" /> <value unit="k/cumm" xsi:type ="PQ" value="0.7" /> <interpretationCode codeSystem="local" code="*" / > <referenceRange> <observationRange> <text>1.0 -4.0</text> </observationRange> </referenceRange> </ observation> </component> <component> <observation moodCode= "EVN" classCode="OBS"> <templateId root="2.16.840.1.300913.10.20.22.4.2 " /> <id nullFlavor="NA" /> <code codeSystem="local" code="LY& #37;" displayName="LYMPHOCYTE %" /> <statusCode code="completed" / > <effectiveTime value="514712076995" /> <value unit="%" xsi:type="PQ" value="6" /> <interpretationCode codeSystem="local" code= "*" /> <referenceRange> <observationRange> < text>20-30</text> </observationRange> </referenceRange> </observation> </component> <component> <observation moodCode="EVN" classCode="OBS"> <templateId root= "216.840.1.711023.10.22.4.2" /> <id nullFlavor="NA" /> < code codeSystem="local" code="MCH" displayName="MEAN CELL HGB" /> < statusCode code="completed" /> <effectiveTime value="942648679134" /> <value unit="pg" xsi:type="PQ" value="21.8" /> < interpretationCode codeSystem="local" code="*" /> <referenceRange> <observationRange> <text>27.0-33.0</text> </ observationRange> </referenceRange> </observation> </ component> <component> <observation moodCode="EVN" classCode="OBS"> <templateId root="10.03.840.1.132180.06.06.22.4.2" /> <id nullFlavor="NA" /> <code codeSystem="local" code="MCHC" displayName= "MEAN CELL HGB CONCENTRATION" /> <statusCode code="completed" /> <effectiveTime value="014600151403" /> <value unit="g/dL" xsi:type= "PQ" value="31.6" /> <interpretationCode codeSystem="local" code="*" / > <referenceRange> <observationRange> <text> 32.0-37.0</text> </observationRange> </referenceRange> </observation> </component> <component> <observation moodCode="EVN" classCode="OBS"> <templateId root= "10.03.840.1.976407.102022.4.2" /> <id nullFlavor="NA" /> < code codeSystem="local" code="MCV" displayName="MEAN CELL VOLUME" /> < statusCode code="completed" /> <effectiveTime value="" /> <value unit="fl" xsi:type="PQ" value="68.9" /> < interpretationCode codeSystem="local" code="*" /> <referenceRange> <observationRange> <text>80.0-100.0</text> </ observationRange> </referenceRange> </observation> </ component> <component> <observation moodCode="EVN" classCode="OBS"> <templateId root="216.840.1.365114.10.4.2" /> <id nullFlavor="NA" /> <code codeSystem="local" code="MO#" displayName= "MONOCYTE #" /> <statusCode code="completed" /> < effectiveTime value="" /> <value unit="k/cumm" xsi:type="PQ " value="0.9" /> <referenceRange> <observationRange> <text>0.1-1.0</text> </observationRange> </ referenceRange> </observation> </component> <component> <observation moodCode="EVN" classCode="OBS"> <templateId root= "10.03.840.1.472338.10...4.2" /> <id nullFlavor="NA" /> < code codeSystem="local" code="MO%" displayName="MONOCYTE %" /> <statusCode code="completed" /> <effectiveTime value="" /> <value unit="%" xsi:type="PQ" value="8" /> < interpretationCode codeSystem="local" code="*" /> <referenceRange> <observationRange> <text>4-6</text> </ observationRange> </referenceRange> </observation> </ component> <component> <observation moodCode="EVN" classCode="OBS"> <templateId root="10.03.840.1.574105.10.20.22.4.2" /> <id nullFlavor="NA" /> <code codeSystem="local" code="RBC" displayName=" RED BLOOD CELL" /> <statusCode code="completed" /> < effectiveTime value="853009685880" /> <value unit="m/cumm" xsi:type="PQ " value="4.54" /> <referenceRange> <observationRange> <text>4.00-6.00</text> </observationRange> </ referenceRange> </observation> </component> <component> <observation moodCode="EVN" classCode="OBS"> <templateId root= "10.03.840.1.627366.10.22.4.2" /> <id nullFlavor="NA" /> < code codeSystem="local" code="RDW" displayName="RED CELL DISTRIBUTION WIDTH" /> <statusCode code="completed" /> <effectiveTime value= "534409555455" /> <value unit="%" xsi:type="PQ" value="21.1" /> <interpretationCode codeSystem="local" code="*" /> < referenceRange> <observationRange> <text>11.0-15.6</text > </observationRange> </referenceRange> </observation > </component> <component> <observation moodCode="EVN" classCode="OBS"> <templateId root="10.03.840.1.348162.10.20.22.4.2" /> <id nullFlavor="NA" /> <code codeSystem="local" code="WBC" displayName="WHITE BLOOD CELL" /> <statusCode code="completed" /> <effectiveTime value="056600891900" /> <value unit="k/cumm" xsi: type="PQ" value="12.0" /> <interpretationCode codeSystem="local" code= "*" /> <referenceRange> <observationRange> < text>5.0-10.0</text> </observationRange> </referenceRange> </observation> </component> <component> <observation moodCode="EVN" classCode="OBS"> <templateId root= "216.840.1.856053.10...4.2" /> <id nullFlavor="NA" /> < code codeSystem="local" code="HGBT" displayName="HEMOGLOBIN" /> < statusCode code="completed" /> <effectiveTime value="653951262406" /> <value unit="gm/dL" xsi:type="PQ" value="9.9" /> < interpretationCode codeSystem="local" code="*" /> <referenceRange> <observationRange> <text>12.0-16.0</text> </ observationRange> </referenceRange> </observation> </ component> <component> <observation moodCode="EVN" classCode="OBS"> <templateId root="10.03.840.1.804044.10...4.2" /> <id nullFlavor="NA" /> <code codeSystem="local" code="HCTT" displayName= "HEMATOCRIT" /> <statusCode code="completed" /> < effectiveTime value="705335079790" /> <value unit="%" xsi:type="PQ " value="31.3" /> <interpretationCode codeSystem="local" code="*" /> <referenceRange> <observationRange> <text>37.0- 47.0</text> </observationRange> </referenceRange> </ observation> </component> <component> <observation moodCode= "EVN" classCode="OBS"> <templateId root="16.840.1.603790.10..4.2 " /> <id nullFlavor="NA" /> <code codeSystem="local" code="PLT " displayName="PLATELET COUNT" /> <statusCode code="completed" /> <effectiveTime value="644314193936" /> <value unit="k/cumm" xsi: type="PQ" value="331" /> <referenceRange> <observationRange > <text>150-400</text> </observationRange> </ referenceRange> </observation> </component> </organizer> </entry > <entry> <organizer moodCode="EVN" classCode="BATTERY"> <templateId root="16.840.1.849702.10.4.1" /> <id nullFlavor="NA" /> <code codeSystem="local" code="MORPH" displayName="MORPHOLOGY" /> <statusCode code="completed" /> <component> <observation moodCode="EVN" classCode="OBS"> <templateId root="16.840.1.736631.10.4.2" /> <id nullFlavor="NA" /> <code codeSystem="local" code="RMORPH" displayName="RBC MORPH" /> <statusCode code="completed" /> < effectiveTime value="105357879454" /> <value unit="" xsi:type="PQ" value="NOTED" /> <referenceRange> <observationRange> <text /> </observationRange> </referenceRange> </observation> </component> </organizer> </entry> <entry> < organizer moodCode="EVN" classCode="BATTERY"> <templateId root= "16.840.1.463451.10.4.1" /> <id nullFlavor="NA" /> <code codeSystem="local" code="LACT" displayName="LACTIC ACID" /> <statusCode code="completed" /> <component> <observation moodCode="EVN" classCode="OBS"> <templateId root="2.16.840.1.328211.10.20.22.4.2" /> <id nullFlavor="NA" /> <code codeSystem="local" code="LACT" displayName="LACTIC ACID" /> <statusCode code="completed" /> < effectiveTime value="558152419867" /> <value unit="mmol/L" xsi:type="PQ " value="1.0" /> <referenceRange> <observationRange> <text>0.5-2.0</text> </observationRange> </ referenceRange> </observation> </component> </organizer> </entry > <entry> <organizer moodCode="EVN" classCode="BATTERY"> <templateId root="2.16.840.1.862462.10.20.22.4.1" /> <id nullFlavor="NA" /> <code codeSystem="local" code="BC" displayName="BLOOD CULTURE" /> <statusCode code="completed" /> <component> <observation moodCode="EVN" classCode="OBS"> <templateId root="2.16.840.1.995681.10.20.22.4.2" /> <id nullFlavor="NA" /> <code codeSystem="local" code="MB" displayName="Microbiology" /> <statusCode code="completed" /> <effectiveTime value="950654690603" /> <value xsi:type="ST" value="<pre ><b>BLOOD CULTURE</b> See BelowIs this a Possible Sepsis/Sepsis patient? YesBLOOD CULTURE(F) Cosme Date/Time: 11/26/2016 06:40 Irvin Date/Time: 12/01/2016 17:00SOURCE: BLOODSPEC DESC: [id number] [facility] [facility] [place] [address]</pre>" /> <referenceRange> <observationRange> <text /> </observationRange> </referenceRange> </observation> </component> </organizer> </entry> <entry> < organizer moodCode="EVN" classCode="BATTERY"> <templateId root= "16.840.1.429797.10..22.4.1" /> <id nullFlavor="NA" /> <code codeSystem="local" code="UA" displayName="URINALYSIS, ROUTINE" /> < statusCode code="completed" /> <component> <observation moodCode= "EVN" classCode="OBS"> <templateId root="216.840.1.117789.10..22.4.2 " /> <id nullFlavor="NA" /> <code codeSystem="local" code= "LEUESU" displayName="UA LEUKOCYTE ESTERASE DIPSTICK" /> <statusCode code="completed" /> <effectiveTime value="502237446871" /> < value unit="" xsi:type="PQ" value="NEGATIVE" /> <referenceRange> <observationRange> <text>NEGATIVE</text> </ observationRange> </referenceRange> </observation> </ component> <component> <observation moodCode="EVN" classCode="OBS"> <templateId root="10.03.840.1.855665.10..4.2" /> <id nullFlavor="NA" /> <code codeSystem="local" code="NITRIU" displayName= "UA NITRITE DIPSTICK" /> <statusCode code="completed" /> < effectiveTime value="" /> <value unit="" xsi:type="PQ" value="NEGATIVE" /> <referenceRange> <observationRange> <text>NEGATIVE</text> </observationRange> </ referenceRange> </observation> </component> <component> <observation moodCode="EVN" classCode="OBS"> <templateId root= "216.840.1.035495.10.22.4.2" /> <id nullFlavor="NA" /> < code codeSystem="local" code="PROTEIU" displayName="UA PROTEIN DIPSTICK" /> <statusCode code="completed" /> <effectiveTime value= "" /> <value unit="" xsi:type="PQ" value="1+" /> < referenceRange> <observationRange> <text>NEGATIVE</text > </observationRange> </referenceRange> </observation > </component> <component> <observation moodCode="EVN" classCode="OBS"> <templateId root="216.840.1.681365.10..4.2" /> <id nullFlavor="NA" /> <code codeSystem="local" code="DGLUU" displayName="UA GLUCOSE DIPSTICK" /> <statusCode code="completed" /> <effectiveTime value="" /> <value unit="" xsi:type= "PQ" value="NEGATIVE" /> <referenceRange> <observationRange > <text>NEGATIVE</text> </observationRange> </ referenceRange> </observation> </component> <component> <observation moodCode="EVN" classCode="OBS"> <templateId root= "16.840.1.153168.10.22.4.2" /> <id nullFlavor="NA" /> < code codeSystem="local" code="KETONU" displayName="UA KETONE DIPSTICK" /> <statusCode code="completed" /> <effectiveTime value=" " /> <value unit="" xsi:type="PQ" value="NEGATIVE" /> < referenceRange> <observationRange> <text>NEGATIVE</text > </observationRange> </referenceRange> </observation > </component> <component> <observation moodCode="EVN" classCode="OBS"> <templateId root="216.840.1.764756.06.06.22.4.2" /> <id nullFlavor="NA" /> <code codeSystem="local" code="UROBILU " displayName="UA UROBILINOGEN DIPSTICK" /> <statusCode code="completed " /> <effectiveTime value="" /> <value unit="" xsi :type="PQ" value="NORMAL" /> <referenceRange> < observationRange> <text>NORMAL</text> </observationRange > </referenceRange> </observation> </component> < component> <observation moodCode="EVN" classCode="OBS"> < templateId root="10.03.840.1.792705.06.06.22.4.2" /> <id nullFlavor="NA " /> <code codeSystem="local" code="BILU" displayName="UA BILIRUBIN DIPSTICK" /> <statusCode code="completed" /> <effectiveTime value="" /> <value unit="" xsi:type="PQ" value="NEGATIVE" / > <referenceRange> <observationRange> <text> NEGATIVE</text> </observationRange> </referenceRange> </observation> </component> <component> <observation moodCode ="EVN" classCode="OBS"> <templateId root= "16.840.1.503424.06.06.22.4.2" /> <id nullFlavor="NA" /> < code codeSystem="local" code="ADAM" displayName="UA BLOOD DIPSTICK" /> < statusCode code="completed" /> <effectiveTime value="" /> <value unit="" xsi:type="PQ" value="NEGATIVE" /> < referenceRange> <observationRange> <text>NEGATIVE</text > </observationRange> </referenceRange> </observation > </component> <component> <observation moodCode="EVN" classCode="OBS"> <templateId root="10.03.840.1.432420.10.20.22.4.2" /> <id nullFlavor="NA" /> <code codeSystem="local" code="SPGRU" displayName="UA SPECIFIC GRAVITY" /> <statusCode code="completed" /> <effectiveTime value="134347221799" /> <value unit="" xsi:type= "PQ" value="1.015" /> <referenceRange> <observationRange> <text>1.015-1.025</text> </observationRange> </ referenceRange> </observation> </component> <component> <observation moodCode="EVN" classCode="OBS"> <templateId root= "840.1.792239.10..4.2" /> <id nullFlavor="NA" /> < code codeSystem="local" code="INGRID" displayName="UR PH" /> <statusCode code="completed" /> <effectiveTime value="913654956871" /> < value unit="" xsi:type="PQ" value="5.5" /> <referenceRange> <observationRange> <text>5.0-7.0</text> </ observationRange> </referenceRange> </observation> </ component> </organizer> </entry> <entry> <organizer moodCode="EVN" classCode="BATTERY"> <templateId root="10.03.840.1.901591.10.20.22.4.1" /> <id nullFlavor="NA" /> <code codeSystem="local" code="UAMICRO" displayName="UA MICROSCOPIC" /> <statusCode code="completed" /> < component> <observation moodCode="EVN" classCode="OBS"> < templateId root="840.1.407957.06.06.22.4.2" /> <id nullFlavor="NA " /> <code codeSystem="local" code="BACU" displayName="UA BACTERIA" /> <statusCode code="completed" /> <effectiveTime value= "" /> <value unit="" xsi:type="PQ" value="2+" /> < referenceRange> <observationRange> <text>NEGATIVE</text > </observationRange> </referenceRange> </observation > </component> <component> <observation moodCode="EVN" classCode="OBS"> <templateId root="840.1.291115.06.06.22.4.2" /> <id nullFlavor="NA" /> <code codeSystem="local" code="EPIU" displayName="UA EPITHELIAL CELLS" /> <statusCode code="completed" /> <effectiveTime value="" /> <value unit="epi/hpf" xsi:type="PQ" value="3+" /> <referenceRange> < observationRange> <text>0 - 1+</text> </observationRange > </referenceRange> </observation> </component> < component> <observation moodCode="EVN" classCode="OBS"> < templateId root="840.1.857887.06.06.22.4.2" /> <id nullFlavor="NA " /> <code codeSystem="local" code="HYALU" displayName="UA HYALINE CAST " /> <statusCode code="completed" /> <effectiveTime value= "" /> <value unit="cast/lpf" xsi:type="PQ" value="5-10" /> <referenceRange> <observationRange> <text>0 - 1</text> </observationRange> </referenceRange> </ observation> </component> <component> <observation moodCode= "EVN" classCode="OBS"> <templateId root="216.840.1.204307.10.22.4.2 " /> <id nullFlavor="NA" /> <code codeSystem="local" code= "RBCU" displayName="UA RBC" /> <statusCode code="completed" /> <effectiveTime value="449499543857" /> <value unit="rbc/hpf" xsi:type ="PQ" value="3-5" /> <referenceRange> <observationRange> <text>0 - 3</text> </observationRange> </ referenceRange> </observation> </component> <component> <observation moodCode="EVN" classCode="OBS"> <templateId root= "10.03.840.1.722390.10.4.2" /> <id nullFlavor="NA" /> < code codeSystem="local" code="UAVOL" displayName="UA VOLUME FOR EXAM" /> <statusCode code="completed" /> <effectiveTime value="639450201070" /> <value unit="mL" xsi:type="PQ" value="12.0" /> < referenceRange> <observationRange> <text>(12mL STD)</ text> </observationRange> </referenceRange> </ observation> </component> <component> <observation moodCode= "EVN" classCode="OBS"> <templateId root="10.03.840.1.240523.10.22.4.2 " /> <id nullFlavor="NA" /> <code codeSystem="local" code= "WBCU" displayName="UA WBC" /> <statusCode code="completed" /> <effectiveTime value="878063787016" /> <value unit="wbc/hpf" xsi:type ="PQ" value="2-5" /> <referenceRange> <observationRange> <text>0 - 5</text> </observationRange> </ referenceRange> </observation> </component> </organizer> </entry > <entry> <organizer moodCode="EVN" classCode="BATTERY"> <templateId root="10.03.840.1.596867.06.06.22.4.1" /> <id nullFlavor="NA" /> <code codeSystem="local" code="CBCD" displayName="CBC W/DIFF" /> <statusCode code ="completed" /> <component> <observation moodCode="EVN" classCode= "OBS"> <templateId root="10.03.840.1.759956.06.06.22.4.2" /> < id nullFlavor="NA" /> <code codeSystem="local" code="BA#" displayName= "BASOPHIL #" /> <statusCode code="completed" /> < effectiveTime value="673466043294" /> <value unit="k/cumm" xsi:type="PQ " value="0.0" /> <referenceRange> <observationRange> <text>0.0-0.2</text> </observationRange> </ referenceRange> </observation> </component> <component> <observation moodCode="EVN" classCode="OBS"> <templateId root= "10.03.840.1.241730.06.06.22.4.2" /> <id nullFlavor="NA" /> < code codeSystem="local" code="BA%" displayName="BASOPHIL %" /> <statusCode code="completed" /> <effectiveTime value="551261752451" /> <value unit="%" xsi:type="PQ" value="1" /> < referenceRange> <observationRange> <text>0-1</text> </observationRange> </referenceRange> </observation> </component> <component> <observation moodCode="EVN" classCode= "OBS"> <templateId root="216.840.1.578476.10.20.22.4.2" /> < id nullFlavor="NA" /> <code codeSystem="local" code="EO#" displayName= "EOSINOPHIL #" /> <statusCode code="completed" /> < effectiveTime value="864804897359" /> <value unit="k/cumm" xsi:type="PQ " value="0.1" /> <referenceRange> <observationRange> <text>0.1-0.5</text> </observationRange> </ referenceRange> </observation> </component> <component> <observation moodCode="EVN" classCode="OBS"> <templateId root= "10.03.840.1.779280.10...4.2" /> <id nullFlavor="NA" /> < code codeSystem="local" code="EO%" displayName="EOSINOPHIL %" /> <statusCode code="completed" /> <effectiveTime value="542841536700" /> <value unit="%" xsi:type="PQ" value="1" /> < interpretationCode codeSystem="local" code="*" /> <referenceRange> <observationRange> <text>2-4</text> </ observationRange> </referenceRange> </observation> </ component> <component> <observation moodCode="EVN" classCode="OBS"> <templateId root="16.840.1.912255.10..22.4.2" /> <id nullFlavor="NA" /> <code codeSystem="local" code="GR#" displayName= "GRANULOCYTE #" /> <statusCode code="completed" /> < effectiveTime value="031073328991" /> <value unit="k/cumm" xsi:type="PQ " value="4.7" /> <referenceRange> <observationRange> <text>2.0-9.0</text> </observationRange> </ referenceRange> </observation> </component> <component> <observation moodCode="EVN" classCode="OBS"> <templateId root= "216.840.1.927755.10...4.2" /> <id nullFlavor="NA" /> < code codeSystem="local" code="GR%" displayName="GRANULOCYTE %" /> <statusCode code="completed" /> <effectiveTime value="161022330497 " /> <value unit="%" xsi:type="PQ" value="69" /> < referenceRange> <observationRange> <text>50-75</text> </observationRange> </referenceRange> </observation> </component> <component> <observation moodCode="EVN" classCode= "OBS"> <templateId root="216.840.1.629652.10...4.2" /> < id nullFlavor="NA" /> <code codeSystem="local" code="LY#" displayName= "LYMPHOCYTE #" /> <statusCode code="completed" /> < effectiveTime value="084174907570" /> <value unit="k/cumm" xsi:type="PQ " value="1.1" /> <referenceRange> <observationRange> <text>1.0-4.0</text> </observationRange> </ referenceRange> </observation> </component> <component> <observation moodCode="EVN" classCode="OBS"> <templateId root= "10.03.840.1.936679.10...4.2" /> <id nullFlavor="NA" /> < code codeSystem="local" code="LY%" displayName="LYMPHOCYTE %" /> <statusCode code="completed" /> <effectiveTime value="435465550880" /> <value unit="%" xsi:type="PQ" value="16" /> < interpretationCode codeSystem="local" code="*" /> <referenceRange> <observationRange> <text>20-30</text> </ observationRange> </referenceRange> </observation> </ component> <component> <observation moodCode="EVN" classCode="OBS"> <templateId root="10.03.840.1.659719.06.06.22.4.2" /> <id nullFlavor="NA" /> <code codeSystem="local" code="MCH" displayName= "MEAN CELL HGB" /> <statusCode code="completed" /> < effectiveTime value="467707179063" /> <value unit="pg" xsi:type="PQ" value="23.6" /> <interpretationCode codeSystem="local" code="*" /> <referenceRange> <observationRange> <text>27.0- 33.0</text> </observationRange> </referenceRange> </ observation> </component> <component> <observation moodCode= "EVN" classCode="OBS"> <templateId root="10.03.840.1.568844.10.4.2 " /> <id nullFlavor="NA" /> <code codeSystem="local" code= "MCHC" displayName="MEAN CELL HGB CONCENTRATION" /> <statusCode code= "completed" /> <effectiveTime value="848880935418" /> <value unit="g/dL" xsi:type="PQ" value="30.8" /> <interpretationCode codeSystem="local" code="*" /> <referenceRange> < observationRange> <text>32.0-37.0</text> </ observationRange> </referenceRange> </observation> </ component> <component> <observation moodCode="EVN" classCode="OBS"> <templateId root="16.840.1.068822.102022.4.2" /> <id nullFlavor="NA" /> <code codeSystem="local" code="MCV" displayName= "MEAN CELL VOLUME" /> <statusCode code="completed" /> < effectiveTime value="045880134076" /> <value unit="fl" xsi:type="PQ" value="76.7" /> <interpretationCode codeSystem="local" code="*" /> <referenceRange> <observationRange> <text>80.0- 100.0</text> </observationRange> </referenceRange> </ observation> </component> <component> <observation moodCode= "EVN" classCode="OBS"> <templateId root="16.840.1.025082.1022.4.2 " /> <id nullFlavor="NA" /> <code codeSystem="local" code="MO# " displayName="MONOCYTE #" /> <statusCode code="completed" /> <effectiveTime value="573085542188" /> <value unit="k/cumm" xsi:type= "PQ" value="0.9" /> <referenceRange> <observationRange> <text>0.1-1.0</text> </observationRange> </ referenceRange> </observation> </component> <component> <observation moodCode="EVN" classCode="OBS"> <templateId root= "16.840.1.038088.102022.4.2" /> <id nullFlavor="NA" /> < code codeSystem="local" code="MO%" displayName="MONOCYTE %" /> <statusCode code="completed" /> <effectiveTime value="029437798329" /> <value unit="%" xsi:type="PQ" value="13" /> < interpretationCode codeSystem="local" code="*" /> <referenceRange> <observationRange> <text>4-6</text> </ observationRange> </referenceRange> </observation> </ component> <component> <observation moodCode="EVN" classCode="OBS"> <templateId root="10.03.840.1.403523.1022.4.2" /> <id nullFlavor="NA" /> <code codeSystem="local" code="MPVT" displayName= "MEAN PLATELET VOLUME" /> <statusCode code="completed" /> < effectiveTime value="" /> <value unit="fl" xsi:type="PQ" value="8.8" /> <referenceRange> <observationRange> <text>8.5-10.9</text> </observationRange> </ referenceRange> </observation> </component> <component> <observation moodCode="EVN" classCode="OBS"> <templateId root= "10.03.840.1.340992.10.2022.4.2" /> <id nullFlavor="NA" /> < code codeSystem="local" code="OVAL" displayName="OVALOCYTES" /> < statusCode code="completed" /> <effectiveTime value="554705312179" /> <value unit="" xsi:type="PQ" value="NOTED" /> <referenceRange > <observationRange> <text /> </ observationRange> </referenceRange> </observation> </ component> <component> <observation moodCode="EVN" classCode="OBS"> <templateId root="10.03.840.1.375453.10.22.4.2" /> <id nullFlavor="NA" /> <code codeSystem="local" code="RBC" displayName=" RED BLOOD CELL" /> <statusCode code="completed" /> < effectiveTime value="508509833270" /> <value unit="m/cumm" xsi:type="PQ " value="3.60" /> <interpretationCode codeSystem="local" code="*" /> <referenceRange> <observationRange> <text>4.00- 6.00</text> </observationRange> </referenceRange> </ observation> </component> <component> <observation moodCode= "EVN" classCode="OBS"> <templateId root="10.03.840.1.820909.10..4.2 " /> <id nullFlavor="NA" /> <code codeSystem="local" code="RDW " displayName="RED CELL DISTRIBUTION WIDTH" /> <statusCode code= "completed" /> <effectiveTime value="872114034031" /> <value unit="%" xsi:type="PQ" value="19.5" /> <interpretationCode codeSystem="local" code="*" /> <referenceRange> < observationRange> <text>11.0-15.6</text> </ observationRange> </referenceRange> </observation> </ component> <component> <observation moodCode="EVN" classCode="OBS"> <templateId root="10.03.840.1.192753.10..22.4.2" /> <id nullFlavor="NA" /> <code codeSystem="local" code="WBC" displayName= "WHITE BLOOD CELL" /> <statusCode code="completed" /> < effectiveTime value="123206986279" /> <value unit="k/cumm" xsi:type="PQ " value="6.9" /> <referenceRange> <observationRange> <text>5.0-10.0</text> </observationRange> </ referenceRange> </observation> </component> <component> <observation moodCode="EVN" classCode="OBS"> <templateId root= "216.840.1.945354.10.20.22.4.2" /> <id nullFlavor="NA" /> < code codeSystem="local" code="HGBT" displayName="HEMOGLOBIN" /> < statusCode code="completed" /> <effectiveTime value="664142002540" /> <value unit="gm/dL" xsi:type="PQ" value="8.5" /> < interpretationCode codeSystem="local" code="*" /> <referenceRange> <observationRange> <text>12.0-16.0</text> </ observationRange> </referenceRange> </observation> </ component> <component> <observation moodCode="EVN" classCode="OBS"> <templateId root="216.840.1.877770.10.20.22.4.2" /> <id nullFlavor="NA" /> <code codeSystem="local" code="HCTT" displayName= "HEMATOCRIT" /> <statusCode code="completed" /> < effectiveTime value="001184927530" /> <value unit="%" xsi:type="PQ " value="27.6" /> <interpretationCode codeSystem="local" code="*" /> <referenceRange> <observationRange> <text>37.0- 47.0</text> </observationRange> </referenceRange> </ observation> </component> <component> <observation moodCode= "EVN" classCode="OBS"> <templateId root="10.03.840.1.247002.10..22.4.2 " /> <id nullFlavor="NA" /> <code codeSystem="local" code= "PLTT" displayName="PLATELET COUNT" /> <statusCode code="completed" /> <effectiveTime value="990781717768" /> <value unit="k/cumm" xsi:type="PQ" value="331" /> <referenceRange> < observationRange> <text>150-400</text> </ observationRange> </referenceRange> </observation> </ component> </organizer> </entry> <entry> <organizer moodCode="EVN" classCode="BATTERY"> <templateId root="16.840.1.763621.10..22.4.1" /> <id nullFlavor="NA" /> <code codeSystem="local" code="METABC" displayName="METABOLIC PANEL, COMPREHN" /> <statusCode code="completed" /> <component> <observation moodCode="EVN" classCode="OBS"> < templateId root="16.840.1.414635.10..22.4.2" /> <id nullFlavor="NA " /> <code codeSystem="local" code="K" displayName="POTASSIUM" /> <statusCode code="completed" /> <effectiveTime value="828739550167 " /> <value unit="mmol/L" xsi:type="PQ" value="3.7" /> < referenceRange> <observationRange> <text>3.5-5.3</text> </observationRange> </referenceRange> </observation > </component> <component> <observation moodCode="EVN" classCode="OBS"> <templateId root="10.03.840.1.689024.06.06.22.4.2" /> <id nullFlavor="NA" /> <code codeSystem="local" code="eGFR" displayName="EST GFR (MDRD)" /> <statusCode code="completed" /> <effectiveTime value="" /> <value unit="mL/min" xsi:type ="PQ" value="> 60" /> <referenceRange> <observationRange > <text>> 59</text> </observationRange> </ referenceRange> </observation> </component> <component> <observation moodCode="EVN" classCode="OBS"> <templateId root= "2.16.840.1.775545.06.06.22.4.2" /> <id nullFlavor="NA" /> < code codeSystem="local" code="GAP" displayName="ANION GAP" /> < statusCode code="completed" /> <effectiveTime value="" /> <value unit="mmol/L" xsi:type="PQ" value="8" /> < referenceRange> <observationRange> <text>5-15</text> </observationRange> </referenceRange> </observation> </component> <component> <observation moodCode="EVN" classCode= "OBS"> <templateId root="216.840.1.426714...4.2" /> < id nullFlavor="NA" /> <code codeSystem="local" code="eCrCl" displayName ="EST CrCl (CG)" /> <statusCode code="completed" /> < effectiveTime value="" /> <value unit="mL/min" xsi:type="PQ " value="57" /> <interpretationCode codeSystem="local" code="*" /> <referenceRange> <observationRange> <text>> 59< /text> </observationRange> </referenceRange> </ observation> </component> <component> <observation moodCode= "EVN" classCode="OBS"> <templateId root="10.03.840.1.054288.10.22.4.2 " /> <id nullFlavor="NA" /> <code codeSystem="local" code="GLU " displayName="GLUCOSE" /> <statusCode code="completed" /> < effectiveTime value="" /> <value unit="mg/dL" xsi:type="PQ " value="114" /> <interpretationCode codeSystem="local" code="*" /> <referenceRange> <observationRange> <text>70-99</ text> </observationRange> </referenceRange> </ observation> </component> <component> <observation moodCode= "EVN" classCode="OBS"> <templateId root="10.03.840.1.163204.06.06.22.4.2 " /> <id nullFlavor="NA" /> <code codeSystem="local" code="CA " displayName="CALCIUM" /> <statusCode code="completed" /> < effectiveTime value="" /> <value unit="mg/dL" xsi:type="PQ " value="8.3" /> <interpretationCode codeSystem="local" code="*" /> <referenceRange> <observationRange> <text>8.5- 10.1</text> </observationRange> </referenceRange> </ observation> </component> <component> <observation moodCode= "EVN" classCode="OBS"> <templateId root="10.03.840.1.080226..22.4.2 " /> <id nullFlavor="NA" /> <code codeSystem="local" code="BUN " displayName="BLOOD UREA NITROGEN" /> <statusCode code="completed" /> <effectiveTime value="774567860145" /> <value unit="mg/dL" xsi:type="PQ" value="19" /> <referenceRange> < observationRange> <text>7-20</text> </observationRange> </referenceRange> </observation> </component> < component> <observation moodCode="EVN" classCode="OBS"> < templateId root="216.840.1.729973.10..4.2" /> <id nullFlavor="NA " /> <code codeSystem="local" code="CREAT" displayName="CREATININE" /> <statusCode code="completed" /> <effectiveTime value= "951241811400" /> <value unit="mg/dL" xsi:type="PQ" value="0.9" /> <referenceRange> <observationRange> <text>0.6-1.0< /text> </observationRange> </referenceRange> </ observation> </component> <component> <observation moodCode= "EVN" classCode="OBS"> <templateId root="216.840.1.411963.10..4.2 " /> <id nullFlavor="NA" /> <code codeSystem="local" code="NA " displayName="SODIUM" /> <statusCode code="completed" /> < effectiveTime value="247016654553" /> <value unit="mmol/L" xsi:type="PQ " value="135" /> <referenceRange> <observationRange> <text>135-148</text> </observationRange> </ referenceRange> </observation> </component> <component> <observation moodCode="EVN" classCode="OBS"> <templateId root= "216.840.1.263784.10..22.4.2" /> <id nullFlavor="NA" /> < code codeSystem="local" code="CL" displayName="CHLORIDE" /> < statusCode code="completed" /> <effectiveTime value="392668273557" /> <value unit="mmol/L" xsi:type="PQ" value="103" /> < referenceRange> <observationRange> <text>98-110</text> </observationRange> </referenceRange> </observation> </component> <component> <observation moodCode="EVN" classCode ="OBS"> <templateId root="16.840.1.553940.10..22.4.2" /> < id nullFlavor="NA" /> <code codeSystem="local" code="AST" displayName= "AST/SGOT" /> <statusCode code="completed" /> <effectiveTime value="067893462689" /> <value unit="Units/L" xsi:type="PQ" value="12" /> <referenceRange> <observationRange> <text>10 -37</text> </observationRange> </referenceRange> </ observation> </component> <component> <observation moodCode= "EVN" classCode="OBS"> <templateId root="16.840.1.953910.10..22.4.2 " /> <id nullFlavor="NA" /> <code codeSystem="local" code="ALT " displayName="ALT/SGPT" /> <statusCode code="completed" /> < effectiveTime value="256201424504" /> <value unit="Units/L" xsi:type= "PQ" value="16" /> <referenceRange> <observationRange> <text>< 66</text> </observationRange> </ referenceRange> </observation> </component> <component> <observation moodCode="EVN" classCode="OBS"> <templateId root= "16.840.1.535155.22.4.2" /> <id nullFlavor="NA" /> < code codeSystem="local" code="CO2" displayName="CARBON DIOXIDE" /> < statusCode code="completed" /> <effectiveTime value="" /> <value unit="mmol/L" xsi:type="PQ" value="24" /> < referenceRange> <observationRange> <text>21-32</text> </observationRange> </referenceRange> </observation> </component> <component> <observation moodCode="EVN" classCode= "OBS"> <templateId root="10.03.840.1.377850.06.06.224.2" /> < id nullFlavor="NA" /> <code codeSystem="local" code="TP" displayName= "TOTAL PROTEIN" /> <statusCode code="completed" /> < effectiveTime value="" /> <value unit="gm/dL" xsi:type="PQ " value="6.3" /> <interpretationCode codeSystem="local" code="*" /> <referenceRange> <observationRange> <text>6.4-8.2 </text> </observationRange> </referenceRange> </ observation> </component> <component> <observation moodCode= "EVN" classCode="OBS"> <templateId root="10.03.840.1.856615.22.4.2 " /> <id nullFlavor="NA" /> <code codeSystem="local" code="ALB " displayName="ALBUMIN" /> <statusCode code="completed" /> < effectiveTime value="" /> <value unit="gm/dL" xsi:type="PQ " value="2.7" /> <interpretationCode codeSystem="local" code="*" /> <referenceRange> <observationRange> <text>3.4-5.0 </text> </observationRange> </referenceRange> </ observation> </component> <component> <observation moodCode= "EVN" classCode="OBS"> <templateId root="216.840.1.688008.10..22.4.2 " /> <id nullFlavor="NA" /> <code codeSystem="local" code= "BILTOT" displayName="BILI TOTAL" /> <statusCode code="completed" /> <effectiveTime value="876022520803" /> <value unit="mg/dL" xsi: type="PQ" value="0.1" /> <referenceRange> <observationRange > <text>0.0-1.0</text> </observationRange> </ referenceRange> </observation> </component> <component> <observation moodCode="EVN" classCode="OBS"> <templateId root= "10.03.840.1.739397.10...4.2" /> <id nullFlavor="NA" /> < code codeSystem="local" code="ALKP" displayName="ALKALINE PHOSPHATASE TOTAL" /> <statusCode code="completed" /> <effectiveTime value= "949074015754" /> <value unit="IU/L" xsi:type="PQ" value="85" /> <referenceRange> <observationRange> <text>45-117</ text> </observationRange> </referenceRange> </ observation> </component> </organizer> </entry> <entry> <organizer moodCode="EVN" classCode="BATTERY"> <templateId root= "16.840.1.698506.10..22.4.1" /> <id nullFlavor="NA" /> <code codeSystem="local" code="TSH" displayName="THYROID STIM HORMONE (TSH)" /> < statusCode code="completed" /> <component> <observation moodCode= "EVN" classCode="OBS"> <templateId root="2.16.840.1.192924.10.20.22.4.2 " /> <id nullFlavor="NA" /> <code codeSystem="local" code="TSH " displayName="THYROID STIM HORMONE (TSH)" /> <statusCode code= "completed" /> <effectiveTime value="570322637230" /> <value unit="uIU/mL" xsi:type="PQ" value="1.18" /> <referenceRange> <observationRange> <text>0.34-4.82</text> </ observationRange> </referenceRange> </observation> </ component> </organizer> </entry> <entry> <organizer moodCode="EVN" classCode="BATTERY"> <templateId root="2.16.840.1.592678.10.20.22.4.1" /> <id nullFlavor="NA" /> <code codeSystem="local" code="ALC" displayName ="ALCOHOL (ETHANOL) SERUM" /> <statusCode code="completed" /> < component> <observation moodCode="EVN" classCode="OBS"> < templateId root="2.16.840.1.508855.10.20.22.4.2" /> <id nullFlavor="NA " /> <code codeSystem="local" code="ALC" displayName="ALCOHOL (ETHANOL ) SERUM" /> <statusCode code="completed" /> <effectiveTime value="289259129084" /> <value unit="mg/dL" xsi:type="PQ" value="< 10" /> <referenceRange> <observationRange> < text> < 10</text> </observationRange> </referenceRange> </observation> </component> </organizer> </entry> <entry> < organizer moodCode="EVN" classCode="BATTERY"> <templateId root= "16.840.1.948186.10.22.4.1" /> <id nullFlavor="NA" /> <code codeSystem="local" code="ACTMN" displayName="ACETAMINOPHEN (TYLENOL)" /> < statusCode code="completed" /> <component> <observation moodCode= "EVN" classCode="OBS"> <templateId root="10.03.840.1.289208.06.06.22.4.2 " /> <id nullFlavor="NA" /> <code codeSystem="local" code= "ACTMN" displayName="ACETAMINOPHEN (TYLENOL)" /> <statusCode code= "completed" /> <effectiveTime value="" /> <value unit="mcg/mL" xsi:type="PQ" value="< 2" /> <referenceRange> <observationRange> <text>10-30</text> </ observationRange> </referenceRange> </observation> </ component> </organizer> </entry> <entry> <organizer moodCode="EVN" classCode="BATTERY"> <templateId root="10.03.840.1.164954.10..4.1" /> <id nullFlavor="NA" /> <code codeSystem="local" code="SALI" displayName="SALICYLATE (ASPIRIN)" /> <statusCode code="completed" /> <component> <observation moodCode="EVN" classCode="OBS"> < templateId root="10.03.840.1.357153.10...4.2" /> <id nullFlavor="NA " /> <code codeSystem="local" code="SALINUM" displayName="SALICYLATE" / > <statusCode code="completed" /> <effectiveTime value= "" /> <value unit="mg/dL" xsi:type="PQ" value="< 2.8" / > <referenceRange> <observationRange> <text>2.8 -29.0</text> </observationRange> </referenceRange> </ observation> </component> </organizer> </entry> <entry> <organizer moodCode="EVN" classCode="BATTERY"> <templateId root= "10.03.840.1.858896.1022.4.1" /> <id nullFlavor="NA" /> <code codeSystem="local" code="HDLPRO" displayName="LIPID PANEL" /> <statusCode code="completed" /> <component> <observation moodCode="EVN" classCode="OBS"> <templateId root="10.03.840.1.123550.10..4.2" /> <id nullFlavor="NA" /> <code codeSystem="local" code="CHOL/HDL " displayName="CHOLESTEROL/HDL RATIO" /> <statusCode code="completed" / > <effectiveTime value="086193400356" /> <value unit="" xsi: type="PQ" value="3.7" /> <referenceRange> <observationRange > <text> < 5.0</text> </observationRange> </ referenceRange> </observation> </component> <component> <observation moodCode="EVN" classCode="OBS"> <templateId root= "10.03.840.1.484727.10..22.4.2" /> <id nullFlavor="NA" /> < code codeSystem="local" code="LDLX" displayName="LDL CHOLESTEROL" /> < statusCode code="completed" /> <effectiveTime value="632738003803" /> <value unit="mg/dL" xsi:type="PQ" value="109" /> < interpretationCode codeSystem="local" code="*" /> <referenceRange> <observationRange> <text>< 100</text> </ observationRange> </referenceRange> </observation> </ component> <component> <observation moodCode="EVN" classCode="OBS"> <templateId root="10.03.840.1.754865.10..4.2" /> <id nullFlavor="NA" /> <code codeSystem="local" code="VLDL" displayName= "VLDL CHOLESTEROL" /> <statusCode code="completed" /> < effectiveTime value="" /> <value unit="mg/dL" xsi:type="PQ " value="19" /> <referenceRange> <observationRange> <text>< 30</text> </observationRange> </ referenceRange> </observation> </component> <component> <observation moodCode="EVN" classCode="OBS"> <templateId root= "840.1.833837.10.4.2" /> <id nullFlavor="NA" /> < code codeSystem="local" code="TRIG" displayName="TRIGLYCERIDES" /> < statusCode code="completed" /> <effectiveTime value="" /> <value unit="mg/dL" xsi:type="PQ" value="95" /> < referenceRange> <observationRange> <text>< 150</text > </observationRange> </referenceRange> </observation > </component> <component> <observation moodCode="EVN" classCode="OBS"> <templateId root="10.03.840.1.488240.102022.4.2" /> <id nullFlavor="NA" /> <code codeSystem="local" code="CHOL" displayName="CHOLESTEROL" /> <statusCode code="completed" /> < effectiveTime value="068867932711" /> <value unit="mg/dL" xsi:type="PQ " value="175" /> <referenceRange> <observationRange> <text>< 200</text> </observationRange> </ referenceRange> </observation> </component> <component> <observation moodCode="EVN" classCode="OBS"> <templateId root= "10.03.840.1.705053.06.06.22.4.2" /> <id nullFlavor="NA" /> < code codeSystem="local" code="HDL" displayName="HDL CHOLESTEROL" /> < statusCode code="completed" /> <effectiveTime value="417749247040" /> <value unit="mg/dL" xsi:type="PQ" value="47" /> < referenceRange> <observationRange> <text>> 39</text> </observationRange> </referenceRange> </observation > </component> </organizer> </entry> <entry> <organizer moodCode= "EVN" classCode="BATTERY"> <templateId root="10.03.840.1.152399.06.06.22.4.1 " /> <id nullFlavor="NA" /> <code codeSystem="local" code="UA" displayName="URINALYSIS, ROUTINE" /> <statusCode code="completed" /> < component> <observation moodCode="EVN" classCode="OBS"> < templateId root="10.03.840.1.836389.06.06.22.4.2" /> <id nullFlavor="NA " /> <code codeSystem="local" code="LEUESU" displayName="UA LEUKOCYTE ESTERASE DIPSTICK" /> <statusCode code="completed" /> < effectiveTime value="671757668859" /> <value unit="" xsi:type="PQ" value="NEGATIVE" /> <referenceRange> <observationRange> <text>NEGATIVE</text> </observationRange> </ referenceRange> </observation> </component> <component> <observation moodCode="EVN" classCode="OBS"> <templateId root= "16.840.1.499778.10..4.2" /> <id nullFlavor="NA" /> < code codeSystem="local" code="NITRIU" displayName="UA NITRITE DIPSTICK" /> <statusCode code="completed" /> <effectiveTime value=" " /> <value unit="" xsi:type="PQ" value="NEGATIVE" /> < referenceRange> <observationRange> <text>NEGATIVE</text > </observationRange> </referenceRange> </observation > </component> <component> <observation moodCode="EVN" classCode="OBS"> <templateId root="10.03.840.1.216317.10.4.2" /> <id nullFlavor="NA" /> <code codeSystem="local" code="PROTEIU " displayName="UA PROTEIN DIPSTICK" /> <statusCode code="completed" /> <effectiveTime value="" /> <value unit="" xsi: type="PQ" value="NEGATIVE" /> <referenceRange> < observationRange> <text>NEGATIVE</text> </ observationRange> </referenceRange> </observation> </ component> <component> <observation moodCode="EVN" classCode="OBS"> <templateId root="10.03.840.1.241012.10.4.2" /> <id nullFlavor="NA" /> <code codeSystem="local" code="DGLUU" displayName= "UA GLUCOSE DIPSTICK" /> <statusCode code="completed" /> < effectiveTime value="657563708839" /> <value unit="" xsi:type="PQ" value="NEGATIVE" /> <referenceRange> <observationRange> <text>NEGATIVE</text> </observationRange> </ referenceRange> </observation> </component> <component> <observation moodCode="EVN" classCode="OBS"> <templateId root= "10.03.840.1.246968.06.06.22.4.2" /> <id nullFlavor="NA" /> < code codeSystem="local" code="KETONU" displayName="UA KETONE DIPSTICK" /> <statusCode code="completed" /> <effectiveTime value="190139677344 " /> <value unit="" xsi:type="PQ" value="NEGATIVE" /> < referenceRange> <observationRange> <text>NEGATIVE</text > </observationRange> </referenceRange> </observation > </component> <component> <observation moodCode="EVN" classCode="OBS"> <templateId root="10.03.840.1.308216.06.06.22.4.2" /> <id nullFlavor="NA" /> <code codeSystem="local" code="UROBILU " displayName="UA UROBILINOGEN DIPSTICK" /> <statusCode code="completed " /> <effectiveTime value="" /> <value unit="" xsi :type="PQ" value="NORMAL" /> <referenceRange> < observationRange> <text>NORMAL</text> </observationRange > </referenceRange> </observation> </component> < component> <observation moodCode="EVN" classCode="OBS"> < templateId root="16.840.1.187937..22.4.2" /> <id nullFlavor="NA " /> <code codeSystem="local" code="BILU" displayName="UA BILIRUBIN DIPSTICK" /> <statusCode code="completed" /> <effectiveTime value="" /> <value unit="" xsi:type="PQ" value="NEGATIVE" / > <referenceRange> <observationRange> <text> NEGATIVE</text> </observationRange> </referenceRange> </observation> </component> <component> <observation moodCode ="EVN" classCode="OBS"> <templateId root= "10.03.840.1.677465.10..4.2" /> <id nullFlavor="NA" /> < code codeSystem="local" code="ADAM" displayName="UA BLOOD DIPSTICK" /> < statusCode code="completed" /> <effectiveTime value="" /> <value unit="" xsi:type="PQ" value="NEGATIVE" /> < referenceRange> <observationRange> <text>NEGATIVE</text > </observationRange> </referenceRange> </observation > </component> <component> <observation moodCode="EVN" classCode="OBS"> <templateId root="10.03.840.1.655239.10...4.2" /> <id nullFlavor="NA" /> <code codeSystem="local" code="SPGRU" displayName="UA SPECIFIC GRAVITY" /> <statusCode code="completed" /> <effectiveTime value="" /> <value unit="" xsi:type= "PQ" value="1.009" /> <interpretationCode codeSystem="local" code="*" / > <referenceRange> <observationRange> <text> 1.015-1.025</text> </observationRange> </referenceRange> </observation> </component> <component> <observation moodCode="EVN" classCode="OBS"> <templateId root= "840.1.375152.10..22.4.2" /> <id nullFlavor="NA" /> < code codeSystem="local" code="INGRID" displayName="UR PH" /> <statusCode code="completed" /> <effectiveTime value="953493967271" /> < value unit="" xsi:type="PQ" value="6.5" /> <referenceRange> <observationRange> <text>5.0-7.0</text> </ observationRange> </referenceRange> </observation> </ component> </organizer> </entry> <entry> <organizer moodCode="EVN" classCode="BATTERY"> <templateId root="216.840.1.298327.10..22.4.1" /> <id nullFlavor="NA" /> <code codeSystem="local" code="DRUGAB" displayName="UR DRUGS OF ABUSE SCREEN" /> <statusCode code="completed" /> <component> <observation moodCode="EVN" classCode="OBS"> < templateId root="216.840.1.308505.10..22.4.2" /> <id nullFlavor="NA " /> <code codeSystem="local" code="AMPHU" displayName="UR AMPHETAMINES SCREEN" /> <statusCode code="completed" /> < effectiveTime value="444247612809" /> <value unit="" xsi:type="PQ" value="POS (>1000 ng/mL)" /> <referenceRange> < observationRange> <text>NEGATIVE</text> </ observationRange> </referenceRange> </observation> </ component> <component> <observation moodCode="EVN" classCode="OBS"> <templateId root="216.840.1.664659.10..22.4.2" /> <id nullFlavor="NA" /> <code codeSystem="local" code="BARBU" displayName= "UR BARBITURATE SCREEN" /> <statusCode code="completed" /> < effectiveTime value="" /> <value unit="" xsi:type="PQ" value="NEG (< 200 ng/mL)" /> <referenceRange> < observationRange> <text>NEGATIVE</text> </ observationRange> </referenceRange> </observation> </ component> <component> <observation moodCode="EVN" classCode="OBS"> <templateId root="2.16.840.1.693286.10..22.4.2" /> <id nullFlavor="NA" /> <code codeSystem="local" code="DAUCOMMENT" displayName="DRUGS OF ABUSE SCREEN COMMENT" /> <statusCode code= "completed" /> <effectiveTime value="" /> <value unit="" xsi:type="PQ" value="" /> <referenceRange> < observationRange> <text /> </observationRange> </referenceRange> </observation> </component> <component> <observation moodCode="EVN" classCode="OBS"> <templateId root= "2.16.840.1.014673.10..22.4.2" /> <id nullFlavor="NA" /> < code codeSystem="local" code="OPIU" displayName="UR OPIATES SCREEN" /> <statusCode code="completed" /> <effectiveTime value="" /> <value unit="" xsi:type="PQ" value="NEG (< 300 ng/mL)" /> <referenceRange> <observationRange> <text>NEGATIVE</ text> </observationRange> </referenceRange> </ observation> </component> <component> <observation moodCode= "EVN" classCode="OBS"> <templateId root="216.840.1.079060.10..22.4.2 " /> <id nullFlavor="NA" /> <code codeSystem="local" code= "PCPU" displayName="UR PHENCYCLIDINE (PCP) SCREEN" /> <statusCode code= "completed" /> <effectiveTime value="198568175875" /> <value unit="" xsi:type="PQ" value="NEG (< 25 ng/mL)" /> <referenceRange > <observationRange> <text>NEGATIVE</text> </ observationRange> </referenceRange> </observation> </ component> <component> <observation moodCode="EVN" classCode="OBS"> <templateId root="216.840.1.510625.10...4.2" /> <id nullFlavor="NA" /> <code codeSystem="local" code="THCU" displayName=" UR CANNABINOIDS (THC) SCREEN" /> <statusCode code="completed" /> <effectiveTime value="" /> <value unit="" xsi:type="PQ " value="POS (> 50 ng/mL)" /> <referenceRange> < observationRange> <text>NEGATIVE</text> </ observationRange> </referenceRange> </observation> </ component> <component> <observation moodCode="EVN" classCode="OBS"> <templateId root="16.840.1.056227.10..22.4.2" /> <id nullFlavor="NA" /> <code codeSystem="local" code="COCAU" displayName= "UR COCAINE METABOLITE SCREEN" /> <statusCode code="completed" /> <effectiveTime value="540740080604" /> <value unit="" xsi:type="PQ " value="NEG (< 300 ng/mL)" /> <referenceRange> < observationRange> <text>NEGATIVE</text> </ observationRange> </referenceRange> </observation> </ component> <component> <observation moodCode="EVN" classCode="OBS"> <templateId root="216.840.1.051308.10..22.4.2" /> <id nullFlavor="NA" /> <code codeSystem="local" code="METHU" displayName= "UR METHADONE SCREEN" /> <statusCode code="completed" /> < effectiveTime value="638795336801" /> <value unit="" xsi:type="PQ" value="NEG (< 300 ng/mL)" /> <referenceRange> < observationRange> <text>NEGATIVE</text> </ observationRange> </referenceRange> </observation> </ component> <component> <observation moodCode="EVN" classCode="OBS"> <templateId root="216.840.1.795149.10..22.4.2" /> <id nullFlavor="NA" /> <code codeSystem="local" code="BENZU" displayName= "UR BENZODIAZEPINE SCREEN" /> <statusCode code="completed" /> <effectiveTime value="277613217280" /> <value unit="" xsi:type="PQ" value="NEG (< 200 ng/mL)" /> <referenceRange> < observationRange> <text>NEGATIVE</text> </ observationRange> </referenceRange> </observation> </ component> </organizer> </entry> <entry> <organizer moodCode="EVN" classCode="BATTERY"> <templateId root="216.840.1.143552.10.20.22.4.1" /> <id nullFlavor="NA" /> <code codeSystem="local" code="MRSAS" displayName="MRSA SURVEILLANCE SCREEN" /> <statusCode code="completed" /> <component> <observation moodCode="EVN" classCode="OBS"> < templateId root="216.840.1.835577.10..4.2" /> <id nullFlavor="NA " /> <code codeSystem="local" code="MB" displayName="Microbiology" /> <statusCode code="completed" /> <effectiveTime value= "895040022894" /> <value xsi:type="ST" value="<pre><b>MRSA SURVEILLANCE SCREEN</b> See Below: PATIENT REPORTS "I THINK I MIGHT HAVE HAD STAFF BEFORE"RESULT CALLED TO MARLI BARAJAS BY .[facility] AT 1244, 03/20/17.MRSA SURVEILLANCE SCREEN(F) Cosme Date/Time: 03/19/2017 08:48 Irvin Date/Time: 03/20/2017 12:44SOURCE: ANTERIOR NARESSPEC DESC: CALL REPORT, RCT T [facility] CONTACT PRECAUTIONS SHOULD BE IMPLEMENTED 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)[facility] [place] [address]</pre>" /> <referenceRange> <observationRange> <text /> </observationRange> </referenceRange> </observation> </component> </organizer > </entry> <entry> <organizer moodCode="EVN" classCode="BATTERY"> < templateId root="10.03.840.1.164689.06.06.22.4.1" /> <id nullFlavor="NA" /> <code codeSystem="local" code="GLUMON" displayName="GLUCOSE (POC)" /> <statusCode code="completed" /> <component> <observation moodCode= "EVN" classCode="OBS"> <templateId root="216.840.1.346777.10..22.4.2 " /> <id nullFlavor="NA" /> <code codeSystem="local" code= "GLUMON" displayName="GLUCOSE (POC)" /> <statusCode code="completed" / > <effectiveTime value="093009183487" /> <value unit="mg/dL" xsi:type="PQ" value="143" /> <interpretationCode codeSystem="local" code="*" /> <referenceRange> <observationRange> <text>70-99</text> </observationRange> </referenceRange> </observation> </component> </organizer> </entry> <entry> < organizer moodCode="EVN" classCode="BATTERY"> <templateId root= "216.840.1.151227.10.20.22.4.1" /> <id nullFlavor="NA" /> <code codeSystem="local" code="GLUMON" displayName="GLUCOSE (POC)" /> < statusCode code="completed" /> <component> <observation moodCode= "EVN" classCode="OBS"> <templateId root="216.840.1.925993.10.20.22.4.2 " /> <id nullFlavor="NA" /> <code codeSystem="local" code= "GLUMON" displayName="GLUCOSE (POC)" /> <statusCode code="completed" / > <effectiveTime value="817291934824" /> <value unit="mg/dL" xsi:type="PQ" value="130" /> <interpretationCode codeSystem="local" code="*" /> <referenceRange> <observationRange> <text>70-99</text> </observationRange> </referenceRange> </observation> </component> </organizer> </entry> <entry> < organizer moodCode="EVN" classCode="BATTERY"> <templateId root= "216.840.1.185838.10.20.22.4.1" /> <id nullFlavor="NA" /> <code codeSystem="local" code="GLUMON" displayName="GLUCOSE (POC)" /> < statusCode code="completed" /> <component> <observation moodCode= "EVN" classCode="OBS"> <templateId root="10.03.840.1.385773.10.4.2 " /> <id nullFlavor="NA" /> <code codeSystem="local" code= "GLUMON" displayName="GLUCOSE (POC)" /> <statusCode code="completed" / > <effectiveTime value="008797868148" /> <value unit="mg/dL" xsi:type="PQ" value="169" /> <interpretationCode codeSystem="local" code="*" /> <referenceRange> <observationRange> <text>70-99</text> </observationRange> </referenceRange> </observation> </component> </organizer> </entry> <entry> < organizer moodCode="EVN" classCode="BATTERY"> <templateId root= "840.1.636416.06.06.22.4.1" /> <id nullFlavor="NA" /> <code codeSystem="local" code="CBCD" displayName="CBC W/DIFF" /> <statusCode code ="completed" /> <component> <observation moodCode="EVN" classCode= "OBS"> <templateId root="10.03.840.1.206349.06.06.22.4.2" /> < id nullFlavor="NA" /> <code codeSystem="local" code="EO#" displayName= "EOSINOPHIL #" /> <statusCode code="completed" /> < effectiveTime value="879545675513" /> <value unit="k/cumm" xsi:type="PQ " value="0.1" /> <referenceRange> <observationRange> <text>0.1-0.5</text> </observationRange> </ referenceRange> </observation> </component> <component> <observation moodCode="EVN" classCode="OBS"> <templateId root= "216.840.1.083692.10.22.4.2" /> <id nullFlavor="NA" /> < code codeSystem="local" code="EO%" displayName="EOSINOPHIL %" /> <statusCode code="completed" /> <effectiveTime value="" /> <value unit="%" xsi:type="PQ" value="1" /> < interpretationCode codeSystem="local" code="*" /> <referenceRange> <observationRange> <text>2-4</text> </ observationRange> </referenceRange> </observation> </ component> <component> <observation moodCode="EVN" classCode="OBS"> <templateId root="10.03.840.1.984954.06.06.22.4.2" /> <id nullFlavor="NA" /> <code codeSystem="local" code="GR#" displayName= "GRANULOCYTE #" /> <statusCode code="completed" /> < effectiveTime value="489467065021" /> <value unit="k/cumm" xsi:type="PQ " value="4.9" /> <referenceRange> <observationRange> <text>2.0-9.0</text> </observationRange> </ referenceRange> </observation> </component> <component> <observation moodCode="EVN" classCode="OBS"> <templateId root= "16.840.1.515805.10.22.4.2" /> <id nullFlavor="NA" /> < code codeSystem="local" code="GR%" displayName="GRANULOCYTE %" /> <statusCode code="completed" /> <effectiveTime value=" " /> <value unit="%" xsi:type="PQ" value="69" /> < referenceRange> <observationRange> <text>50-75</text> </observationRange> </referenceRange> </observation> </component> <component> <observation moodCode="EVN" classCode= "OBS"> <templateId root="2.16.840.1.586967.10.4.2" /> < id nullFlavor="NA" /> <code codeSystem="local" code="LY#" displayName= "LYMPHOCYTE #" /> <statusCode code="completed" /> < effectiveTime value="890248653327" /> <value unit="k/cumm" xsi:type="PQ " value="1.4" /> <referenceRange> <observationRange> <text>1.0-4.0</text> </observationRange> </ referenceRange> </observation> </component> <component> <observation moodCode="EVN" classCode="OBS"> <templateId root= "2.16.840.1.695972.10.4.2" /> <id nullFlavor="NA" /> < code codeSystem="local" code="LY%" displayName="LYMPHOCYTE %" /> <statusCode code="completed" /> <effectiveTime value="062248636401" /> <value unit="%" xsi:type="PQ" value="19" /> < interpretationCode codeSystem="local" code="*" /> <referenceRange> <observationRange> <text>20-30</text> </ observationRange> </referenceRange> </observation> </ component> <component> <observation moodCode="EVN" classCode="OBS"> <templateId root="840.1.304807.10.20.22.4.2" /> <id nullFlavor="NA" /> <code codeSystem="local" code="MCH" displayName= "MEAN CELL HGB" /> <statusCode code="completed" /> < effectiveTime value="393362600556" /> <value unit="pg" xsi:type="PQ" value="23.6" /> <interpretationCode codeSystem="local" code="*" /> <referenceRange> <observationRange> <text>27.0- 33.0</text> </observationRange> </referenceRange> </ observation> </component> <component> <observation moodCode= "EVN" classCode="OBS"> <templateId root="840.1.865735.10.2022.4.2 " /> <id nullFlavor="NA" /> <code codeSystem="local" code= "MCHC" displayName="MEAN CELL HGB CONCENTRATION" /> <statusCode code= "completed" /> <effectiveTime value="" /> <value unit="g/dL" xsi:type="PQ" value="31.4" /> <interpretationCode codeSystem="local" code="*" /> <referenceRange> < observationRange> <text>32.0-37.0</text> </ observationRange> </referenceRange> </observation> </ component> <component> <observation moodCode="EVN" classCode="OBS"> <templateId root="840.1.646205.10.20.22.4.2" /> <id nullFlavor="NA" /> <code codeSystem="local" code="MCV" displayName= "MEAN CELL VOLUME" /> <statusCode code="completed" /> < effectiveTime value="308888507183" /> <value unit="fl" xsi:type="PQ" value="75.2" /> <interpretationCode codeSystem="local" code="*" /> <referenceRange> <observationRange> <text>80.0- 100.0</text> </observationRange> </referenceRange> </ observation> </component> <component> <observation moodCode= "EVN" classCode="OBS"> <templateId root="216.840.1.627575.06.06.22.4.2 " /> <id nullFlavor="NA" /> <code codeSystem="local" code="MO# " displayName="MONOCYTE #" /> <statusCode code="completed" /> <effectiveTime value="840376088764" /> <value unit="k/cumm" xsi:type= "PQ" value="0.7" /> <referenceRange> <observationRange> <text>0.1-1.0</text> </observationRange> </ referenceRange> </observation> </component> <component> <observation moodCode="EVN" classCode="OBS"> <templateId root= "216.840.1.800963.06.06.22.4.2" /> <id nullFlavor="NA" /> < code codeSystem="local" code="MO%" displayName="MONOCYTE %" /> <statusCode code="completed" /> <effectiveTime value="601302078124" /> <value unit="%" xsi:type="PQ" value="10" /> < interpretationCode codeSystem="local" code="*" /> <referenceRange> <observationRange> <text>4-6</text> </ observationRange> </referenceRange> </observation> </ component> <component> <observation moodCode="EVN" classCode="OBS"> <templateId root="216.840.1.041255.06.06.22.4.2" /> <id nullFlavor="NA" /> <code codeSystem="local" code="MPVT" displayName= "MEAN PLATELET VOLUME" /> <statusCode code="completed" /> < effectiveTime value="" /> <value unit="fl" xsi:type="PQ" value="8.9" /> <referenceRange> <observationRange> <text>8.5-10.9</text> </observationRange> </ referenceRange> </observation> </component> <component> <observation moodCode="EVN" classCode="OBS"> <templateId root= "216.840.1.956393.10..22.4.2" /> <id nullFlavor="NA" /> < code codeSystem="local" code="OVAL" displayName="OVALOCYTES" /> < statusCode code="completed" /> <effectiveTime value="" /> <value unit="" xsi:type="PQ" value="NOTED" /> <referenceRange > <observationRange> <text /> </ observationRange> </referenceRange> </observation> </ component> <component> <observation moodCode="EVN" classCode="OBS"> <templateId root="16.840.1.312814.10..22.4.2" /> <id nullFlavor="NA" /> <code codeSystem="local" code="RBC" displayName=" RED BLOOD CELL" /> <statusCode code="completed" /> < effectiveTime value="" /> <value unit="m/cumm" xsi:type="PQ " value="4.11" /> <referenceRange> <observationRange> <text>4.00-6.00</text> </observationRange> </ referenceRange> </observation> </component> <component> <observation moodCode="EVN" classCode="OBS"> <templateId root= "16.840.1.720510.10.20.22.4.2" /> <id nullFlavor="NA" /> < code codeSystem="local" code="RDW" displayName="RED CELL DISTRIBUTION WIDTH" /> <statusCode code="completed" /> <effectiveTime value= "" /> <value unit="%" xsi:type="PQ" value="19.5" /> <interpretationCode codeSystem="local" code="*" /> < referenceRange> <observationRange> <text>11.0-15.6</text > </observationRange> </referenceRange> </observation > </component> <component> <observation moodCode="EVN" classCode="OBS"> <templateId root="10.03.840.1.101563.10.22.4.2" /> <id nullFlavor="NA" /> <code codeSystem="local" code="WBC" displayName="WHITE BLOOD CELL" /> <statusCode code="completed" /> <effectiveTime value="" /> <value unit="k/cumm" xsi: type="PQ" value="7.1" /> <referenceRange> <observationRange > <text>5.0-10.0</text> </observationRange> </ referenceRange> </observation> </component> <component> <observation moodCode="EVN" classCode="OBS"> <templateId root= "10.03.840.1.141038.10.20.22.4.2" /> <id nullFlavor="NA" /> < code codeSystem="local" code="HGBT" displayName="HEMOGLOBIN" /> < statusCode code="completed" /> <effectiveTime value="" /> <value unit="gm/dL" xsi:type="PQ" value="9.7" /> < interpretationCode codeSystem="local" code="*" /> <referenceRange> <observationRange> <text>12.0-16.0</text> </ observationRange> </referenceRange> </observation> </ component> <component> <observation moodCode="EVN" classCode="OBS"> <templateId root="2.16.840.1.058092.10..22.4.2" /> <id nullFlavor="NA" /> <code codeSystem="local" code="HCTT" displayName= "HEMATOCRIT" /> <statusCode code="completed" /> < effectiveTime value="264055407507" /> <value unit="%" xsi:type="PQ " value="30.9" /> <interpretationCode codeSystem="local" code="*" /> <referenceRange> <observationRange> <text>37.0- 47.0</text> </observationRange> </referenceRange> </ observation> </component> <component> <observation moodCode= "EVN" classCode="OBS"> <templateId root="216.840.1.541134.10...4.2 " /> <id nullFlavor="NA" /> <code codeSystem="local" code= "PLTT" displayName="PLATELET COUNT" /> <statusCode code="completed" /> <effectiveTime value="900806041187" /> <value unit="k/cumm" xsi:type="PQ" value="362" /> <referenceRange> < observationRange> <text>150-400</text> </ observationRange> </referenceRange> </observation> </ component> </organizer> </entry> <entry> <organizer moodCode="EVN" classCode="BATTERY"> <templateId root="2.16.840.1.873572.10..22.4.1" /> <id nullFlavor="NA" /> <code codeSystem="local" code="RENAL" displayName="RENAL FUNCTION PANEL" /> <statusCode code="completed" /> <component> <observation moodCode="EVN" classCode="OBS"> < templateId root="10.03.840.1.108220.10.20.22.4.2" /> <id nullFlavor="NA " /> <code codeSystem="local" code="K" displayName="POTASSIUM" /> <statusCode code="completed" /> <effectiveTime value="402065859032 " /> <value unit="mmol/L" xsi:type="PQ" value="4.9" /> < referenceRange> <observationRange> <text>3.5-5.3</text> </observationRange> </referenceRange> </observation > </component> <component> <observation moodCode="EVN" classCode="OBS"> <templateId root="10.03.840.1.806238.1022.4.2" /> <id nullFlavor="NA" /> <code codeSystem="local" code="eGFR" displayName="EST GFR (MDRD)" /> <statusCode code="completed" /> <effectiveTime value="201566515832" /> <value unit="mL/min" xsi:type ="PQ" value="58" /> <interpretationCode codeSystem="local" code="*" /> <referenceRange> <observationRange> <text>&gt ; 59</text> </observationRange> </referenceRange> </ observation> </component> <component> <observation moodCode= "EVN" classCode="OBS"> <templateId root="10.03.840.1.696177.10.20.22.4.2 " /> <id nullFlavor="NA" /> <code codeSystem="local" code="GAP " displayName="ANION GAP" /> <statusCode code="completed" /> < effectiveTime value="243724520235" /> <value unit="mmol/L" xsi:type="PQ " value="9" /> <referenceRange> <observationRange> <text>5-15</text> </observationRange> </referenceRange > </observation> </component> <component> <observation moodCode="EVN" classCode="OBS"> <templateId root= "216.840.1.253793.10.20.22.4.2" /> <id nullFlavor="NA" /> < code codeSystem="local" code="eCrCl" displayName="EST CrCl (CG)" /> < statusCode code="completed" /> <effectiveTime value="359123696714" /> <value unit="mL/min" xsi:type="PQ" value="47" /> < interpretationCode codeSystem="local" code="*" /> <referenceRange> <observationRange> <text>> 59</text> </ observationRange> </referenceRange> </observation> </ component> <component> <observation moodCode="EVN" classCode="OBS"> <templateId root="216.840.1.074572.10.20.22.4.2" /> <id nullFlavor="NA" /> <code codeSystem="local" code="GLU" displayName= "GLUCOSE" /> <statusCode code="completed" /> <effectiveTime value="397510761683" /> <value unit="mg/dL" xsi:type="PQ" value="138" / > <interpretationCode codeSystem="local" code="*" /> < referenceRange> <observationRange> <text>70-99</text> </observationRange> </referenceRange> </observation> </component> <component> <observation moodCode="EVN" classCode= "OBS"> <templateId root="216.840.1.873798.10..22.4.2" /> < id nullFlavor="NA" /> <code codeSystem="local" code="CA" displayName= "CALCIUM" /> <statusCode code="completed" /> <effectiveTime value="627227610403" /> <value unit="mg/dL" xsi:type="PQ" value="8.5" / > <referenceRange> <observationRange> <text>8.5 -10.1</text> </observationRange> </referenceRange> </ observation> </component> <component> <observation moodCode= "EVN" classCode="OBS"> <templateId root="216.840.1.970681.10...4.2 " /> <id nullFlavor="NA" /> <code codeSystem="local" code="BUN " displayName="BLOOD UREA NITROGEN" /> <statusCode code="completed" /> <effectiveTime value="385037196879" /> <value unit="mg/dL" xsi:type="PQ" value="15" /> <referenceRange> < observationRange> <text>7-20</text> </observationRange> </referenceRange> </observation> </component> < component> <observation moodCode="EVN" classCode="OBS"> < templateId root="16.840.1.809854.10..22.4.2" /> <id nullFlavor="NA " /> <code codeSystem="local" code="CREAT" displayName="CREATININE" /> <statusCode code="completed" /> <effectiveTime value= "148260577789" /> <value unit="mg/dL" xsi:type="PQ" value="1.0" /> <referenceRange> <observationRange> <text>0.6-1.0< /text> </observationRange> </referenceRange> </ observation> </component> <component> <observation moodCode= "EVN" classCode="OBS"> <templateId root="216.840.1.142060.10..4.2 " /> <id nullFlavor="NA" /> <code codeSystem="local" code="NA " displayName="SODIUM" /> <statusCode code="completed" /> < effectiveTime value="391631639928" /> <value unit="mmol/L" xsi:type="PQ " value="134" /> <interpretationCode codeSystem="local" code="*" /> <referenceRange> <observationRange> <text>135-148 </text> </observationRange> </referenceRange> </ observation> </component> <component> <observation moodCode= "EVN" classCode="OBS"> <templateId root="10.03.840.1.539086.06.06.22.4.2 " /> <id nullFlavor="NA" /> <code codeSystem="local" code="CL " displayName="CHLORIDE" /> <statusCode code="completed" /> < effectiveTime value="933019588053" /> <value unit="mmol/L" xsi:type="PQ " value="103" /> <referenceRange> <observationRange> <text>98-110</text> </observationRange> </ referenceRange> </observation> </component> <component> <observation moodCode="EVN" classCode="OBS"> <templateId root= "216.840.1.282523.10...4.2" /> <id nullFlavor="NA" /> < code codeSystem="local" code="CO2" displayName="CARBON DIOXIDE" /> < statusCode code="completed" /> <effectiveTime value="861814256326" /> <value unit="mmol/L" xsi:type="PQ" value="22" /> < referenceRange> <observationRange> <text>21-32</text> </observationRange> </referenceRange> </observation> </component> <component> <observation moodCode="EVN" classCode= "OBS"> <templateId root="2.16.840.1.254718.10...4.2" /> < id nullFlavor="NA" /> <code codeSystem="local" code="ALB" displayName= "ALBUMIN" /> <statusCode code="completed" /> <effectiveTime value="395309120807" /> <value unit="gm/dL" xsi:type="PQ" value="3.0" / > <interpretationCode codeSystem="local" code="*" /> < referenceRange> <observationRange> <text>3.4-5.0</text> </observationRange> </referenceRange> </observation > </component> <component> <observation moodCode="EVN" classCode="OBS"> <templateId root="216.840.1.587989.10..4.2" /> <id nullFlavor="NA" /> <code codeSystem="local" code="PHOS" displayName="PHOSPHORUS" /> <statusCode code="completed" /> < effectiveTime value="109674232587" /> <value unit="mg/dL" xsi:type="PQ " value="3.5" /> <referenceRange> <observationRange> <text>2.5-4.9</text> </observationRange> </ referenceRange> </observation> </component> </organizer> </entry > <entry> <organizer moodCode="EVN" classCode="BATTERY"> <templateId root="2.16.840.1.924794.10..4.1" /> <id nullFlavor="NA" /> <code codeSystem="local" code="MAG" displayName="MAGNESIUM" /> <statusCode code= "completed" /> <component> <observation moodCode="EVN" classCode= "OBS"> <templateId root="10.03.840.1.371340.10.4.2" /> < id nullFlavor="NA" /> <code codeSystem="local" code="MAG" displayName= "MAGNESIUM" /> <statusCode code="completed" /> <effectiveTime value="295731490617" /> <value unit="mg/dL" xsi:type="PQ" value="1.9" / > <referenceRange> <observationRange> <text>1.8 -2.4</text> </observationRange> </referenceRange> </ observation> </component> </organizer> </entry> <entry> <organizer moodCode="EVN" classCode="BATTERY"> <templateId root= "840.1.858773.06.06.22.4.1" /> <id nullFlavor="NA" /> <code codeSystem="local" code="GLUMON" displayName="GLUCOSE (POC)" /> < statusCode code="completed" /> <component> <observation moodCode= "EVN" classCode="OBS"> <templateId root="10.03.840.1.169081.06.06.22.4.2 " /> <id nullFlavor="NA" /> <code codeSystem="local" code= "GLUMON" displayName="GLUCOSE (POC)" /> <statusCode code="completed" / > <effectiveTime value="845980234436" /> <value unit="mg/dL" xsi:type="PQ" value="125" /> <interpretationCode codeSystem="local" code="*" /> <referenceRange> <observationRange> <text>70-99</text> </observationRange> </referenceRange> </observation> </component> </organizer> </entry> <entry> < organizer moodCode="EVN" classCode="BATTERY"> <templateId root= "216.840.1.011300.10.4.1" /> <id nullFlavor="NA" /> <code codeSystem="local" code="CBCD" displayName="CBC W/DIFF" /> <statusCode code ="completed" /> <component> <observation moodCode="EVN" classCode= "OBS"> <templateId root="216.840.1.298849.06.06.22.4.2" /> < id nullFlavor="NA" /> <code codeSystem="local" code="BA#" displayName= "BASOPHIL #" /> <statusCode code="completed" /> < effectiveTime value="" /> <value unit="k/cumm" xsi:type="PQ " value="0.0" /> <referenceRange> <observationRange> <text>0.0-0.2</text> </observationRange> </ referenceRange> </observation> </component> <component> <observation moodCode="EVN" classCode="OBS"> <templateId root= "216.840.1.878202.06.06.22.4.2" /> <id nullFlavor="NA" /> < code codeSystem="local" code="BA%" displayName="BASOPHIL %" /> <statusCode code="completed" /> <effectiveTime value="053369788386" /> <value unit="%" xsi:type="PQ" value="1" /> < referenceRange> <observationRange> <text>0-1</text> </observationRange> </referenceRange> </observation> </component> <component> <observation moodCode="EVN" classCode= "OBS"> <templateId root="216.840.1.374663.10..4.2" /> < id nullFlavor="NA" /> <code codeSystem="local" code="EO#" displayName= "EOSINOPHIL #" /> <statusCode code="completed" /> < effectiveTime value="" /> <value unit="k/cumm" xsi:type="PQ " value="0.1" /> <referenceRange> <observationRange> <text>0.1-0.5</text> </observationRange> </ referenceRange> </observation> </component> <component> <observation moodCode="EVN" classCode="OBS"> <templateId root= "10.03.840.1.307332.06.06.22.4.2" /> <id nullFlavor="NA" /> < code codeSystem="local" code="EO%" displayName="EOSINOPHIL %" /> <statusCode code="completed" /> <effectiveTime value="" /> <value unit="%" xsi:type="PQ" value="1" /> < interpretationCode codeSystem="local" code="*" /> <referenceRange> <observationRange> <text>2-4</text> </ observationRange> </referenceRange> </observation> </ component> <component> <observation moodCode="EVN" classCode="OBS"> <templateId root="10.03.840.1.369690.06.06.22.4.2" /> <id nullFlavor="NA" /> <code codeSystem="local" code="GR#" displayName= "GRANULOCYTE #" /> <statusCode code="completed" /> < effectiveTime value="" /> <value unit="k/cumm" xsi:type="PQ " value="5.4" /> <referenceRange> <observationRange> <text>2.0-9.0</text> </observationRange> </ referenceRange> </observation> </component> <component> <observation moodCode="EVN" classCode="OBS"> <templateId root= "216.840.1.483086.10..22.4.2" /> <id nullFlavor="NA" /> < code codeSystem="local" code="GR%" displayName="GRANULOCYTE %" /> <statusCode code="completed" /> <effectiveTime value="696572349386 " /> <value unit="%" xsi:type="PQ" value="74" /> < referenceRange> <observationRange> <text>50-75</text> </observationRange> </referenceRange> </observation> </component> <component> <observation moodCode="EVN" classCode= "OBS"> <templateId root="16.840.1.604021.10..4.2" /> < id nullFlavor="NA" /> <code codeSystem="local" code="LY#" displayName= "LYMPHOCYTE #" /> <statusCode code="completed" /> < effectiveTime value="618602651415" /> <value unit="k/cumm" xsi:type="PQ " value="1.2" /> <referenceRange> <observationRange> <text>1.0-4.0</text> </observationRange> </ referenceRange> </observation> </component> <component> <observation moodCode="EVN" classCode="OBS"> <templateId root= "216.840.1.686850.10.20.22.4.2" /> <id nullFlavor="NA" /> < code codeSystem="local" code="LY%" displayName="LYMPHOCYTE %" /> <statusCode code="completed" /> <effectiveTime value="" /> <value unit="%" xsi:type="PQ" value="17" /> < interpretationCode codeSystem="local" code="*" /> <referenceRange> <observationRange> <text>20-30</text> </ observationRange> </referenceRange> </observation> </ component> <component> <observation moodCode="EVN" classCode="OBS"> <templateId root="2.16.840.1.565466.10...4.2" /> <id nullFlavor="NA" /> <code codeSystem="local" code="MCH" displayName= "MEAN CELL HGB" /> <statusCode code="completed" /> < effectiveTime value="" /> <value unit="pg" xsi:type="PQ" value="23.5" /> <interpretationCode codeSystem="local" code="*" /> <referenceRange> <observationRange> <text>27.0- 33.0</text> </observationRange> </referenceRange> </ observation> </component> <component> <observation moodCode= "EVN" classCode="OBS"> <templateId root="216.840.1.384857.102022.4.2 " /> <id nullFlavor="NA" /> <code codeSystem="local" code= "MCHC" displayName="MEAN CELL HGB CONCENTRATION" /> <statusCode code= "completed" /> <effectiveTime value="" /> <value unit="g/dL" xsi:type="PQ" value="30.8" /> <interpretationCode codeSystem="local" code="*" /> <referenceRange> < observationRange> <text>32.0-37.0</text> </ observationRange> </referenceRange> </observation> </ component> <component> <observation moodCode="EVN" classCode="OBS"> <templateId root="16.840.1.541284.10.20.22.4.2" /> <id nullFlavor="NA" /> <code codeSystem="local" code="MCV" displayName= "MEAN CELL VOLUME" /> <statusCode code="completed" /> < effectiveTime value="645445775278" /> <value unit="fl" xsi:type="PQ" value="76.3" /> <interpretationCode codeSystem="local" code="*" /> <referenceRange> <observationRange> <text>80.0- 100.0</text> </observationRange> </referenceRange> </ observation> </component> <component> <observation moodCode= "EVN" classCode="OBS"> <templateId root="840.1.207618...4.2 " /> <id nullFlavor="NA" /> <code codeSystem="local" code="MO# " displayName="MONOCYTE #" /> <statusCode code="completed" /> <effectiveTime value="" /> <value unit="k/cumm" xsi:type= "PQ" value="0.5" /> <referenceRange> <observationRange> <text>0.1-1.0</text> </observationRange> </ referenceRange> </observation> </component> <component> <observation moodCode="EVN" classCode="OBS"> <templateId root= "16.840.1.627303.10.20.22.4.2" /> <id nullFlavor="NA" /> < code codeSystem="local" code="MO%" displayName="MONOCYTE %" /> <statusCode code="completed" /> <effectiveTime value="" /> <value unit="%" xsi:type="PQ" value="7" /> < interpretationCode codeSystem="local" code="*" /> <referenceRange> <observationRange> <text>4-6</text> </ observationRange> </referenceRange> </observation> </ component> <component> <observation moodCode="EVN" classCode="OBS"> <templateId root="2.16.840.1.830204.10.20.22.4.2" /> <id nullFlavor="NA" /> <code codeSystem="local" code="MPVT" displayName= "MEAN PLATELET VOLUME" /> <statusCode code="completed" /> < effectiveTime value="" /> <value unit="fl" xsi:type="PQ" value="8.7" /> <referenceRange> <observationRange> <text>8.5-10.9</text> </observationRange> </ referenceRange> </observation> </component> <component> <observation moodCode="EVN" classCode="OBS"> <templateId root= "216.840.1.186640.10.20.22.4.2" /> <id nullFlavor="NA" /> < code codeSystem="local" code="RBC" displayName="RED BLOOD CELL" /> < statusCode code="completed" /> <effectiveTime value="" /> <value unit="m/cumm" xsi:type="PQ" value="4.17" /> < referenceRange> <observationRange> <text>4.00-6.00</text > </observationRange> </referenceRange> </observation > </component> <component> <observation moodCode="EVN" classCode="OBS"> <templateId root="10.03.840.1.727091.10..22.4.2" /> <id nullFlavor="NA" /> <code codeSystem="local" code="RDW" displayName="RED CELL DISTRIBUTION WIDTH" /> <statusCode code= "completed" /> <effectiveTime value="" /> <value unit="%" xsi:type="PQ" value="19.4" /> <interpretationCode codeSystem="local" code="*" /> <referenceRange> < observationRange> <text>11.0-15.6</text> </ observationRange> </referenceRange> </observation> </ component> <component> <observation moodCode="EVN" classCode="OBS"> <templateId root="10.03.840.1.833723.06.06.22.4.2" /> <id nullFlavor="NA" /> <code codeSystem="local" code="WBC" displayName= "WHITE BLOOD CELL" /> <statusCode code="completed" /> < effectiveTime value="" /> <value unit="k/cumm" xsi:type="PQ " value="7.3" /> <referenceRange> <observationRange> <text>5.0-10.0</text> </observationRange> </ referenceRange> </observation> </component> <component> <observation moodCode="EVN" classCode="OBS"> <templateId root= "10.03.840.1.812681.10.22.4.2" /> <id nullFlavor="NA" /> < code codeSystem="local" code="HGBT" displayName="HEMOGLOBIN" /> < statusCode code="completed" /> <effectiveTime value="" /> <value unit="gm/dL" xsi:type="PQ" value="9.8" /> < interpretationCode codeSystem="local" code="*" /> <referenceRange> <observationRange> <text>12.0-16.0</text> </ observationRange> </referenceRange> </observation> </ component> <component> <observation moodCode="EVN" classCode="OBS"> <templateId root="2.16.840.1.929258.10..4.2" /> <id nullFlavor="NA" /> <code codeSystem="local" code="HCTT" displayName= "HEMATOCRIT" /> <statusCode code="completed" /> < effectiveTime value="010933035438" /> <value unit="%" xsi:type="PQ " value="31.8" /> <interpretationCode codeSystem="local" code="*" /> <referenceRange> <observationRange> <text>37.0- 47.0</text> </observationRange> </referenceRange> </ observation> </component> <component> <observation moodCode= "EVN" classCode="OBS"> <templateId root="216.840.1.315672.06.06.22.4.2 " /> <id nullFlavor="NA" /> <code codeSystem="local" code= "PLTT" displayName="PLATELET COUNT" /> <statusCode code="completed" /> <effectiveTime value="285194229471" /> <value unit="k/cumm" xsi:type="PQ" value="361" /> <referenceRange> < observationRange> <text>150-400</text> </ observationRange> </referenceRange> </observation> </ component> </organizer> </entry> <entry> <organizer moodCode="EVN" classCode="BATTERY"> <templateId root="2.16.840.1.551713..4.1" /> <id nullFlavor="NA" /> <code codeSystem="local" code="MORPH" displayName="MORPHOLOGY" /> <statusCode code="completed" /> <component > <observation moodCode="EVN" classCode="OBS"> <templateId root= "16.840.1.017668.06.06.22.4.2" /> <id nullFlavor="NA" /> < code codeSystem="local" code="RMORPH" displayName="RBC MORPH" /> < statusCode code="completed" /> <effectiveTime value="390955656912" /> <value unit="" xsi:type="PQ" value="NOTED" /> <referenceRange > <observationRange> <text /> </ observationRange> </referenceRange> </observation> </ component> </organizer> </entry> <entry> <organizer moodCode="EVN" classCode="BATTERY"> <templateId root="10.03.840.1.495684.06.06.22.4.1" /> <id nullFlavor="NA" /> <code codeSystem="local" code="METABC" displayName="METABOLIC PANEL, COMPREHN" /> <statusCode code="completed" /> <component> <observation moodCode="EVN" classCode="OBS"> < templateId root="16.840.1.533925.06.06.22.4.2" /> <id nullFlavor="NA " /> <code codeSystem="local" code="K" displayName="POTASSIUM" /> <statusCode code="completed" /> <effectiveTime value="376888888377 " /> <value unit="mmol/L" xsi:type="PQ" value="4.4" /> < referenceRange> <observationRange> <text>3.5-5.3</text> </observationRange> </referenceRange> </observation > </component> <component> <observation moodCode="EVN" classCode="OBS"> <templateId root="2.16.840.1.805544.10..4.2" /> <id nullFlavor="NA" /> <code codeSystem="local" code="eGFR" displayName="EST GFR (MDRD)" /> <statusCode code="completed" /> <effectiveTime value="250951525021" /> <value unit="mL/min" xsi:type ="PQ" value="58" /> <interpretationCode codeSystem="local" code="*" /> <referenceRange> <observationRange> <text>&gt ; 59</text> </observationRange> </referenceRange> </ observation> </component> <component> <observation moodCode= "EVN" classCode="OBS"> <templateId root="216.840.1.341294.06.06.22.4.2 " /> <id nullFlavor="NA" /> <code codeSystem="local" code="GAP " displayName="ANION GAP" /> <statusCode code="completed" /> < effectiveTime value="216880590049" /> <value unit="mmol/L" xsi:type="PQ " value="9" /> <referenceRange> <observationRange> <text>5-15</text> </observationRange> </referenceRange > </observation> </component> <component> <observation moodCode="EVN" classCode="OBS"> <templateId root= "2.16.840.1.803897.10..4.2" /> <id nullFlavor="NA" /> < code codeSystem="local" code="eCrCl" displayName="EST CrCl (CG)" /> < statusCode code="completed" /> <effectiveTime value="" /> <value unit="mL/min" xsi:type="PQ" value="54" /> < interpretationCode codeSystem="local" code="*" /> <referenceRange> <observationRange> <text>> 59</text> </ observationRange> </referenceRange> </observation> </ component> <component> <observation moodCode="EVN" classCode="OBS"> <templateId root="10.03.840.1.598616.22.4.2" /> <id nullFlavor="NA" /> <code codeSystem="local" code="GLU" displayName= "GLUCOSE" /> <statusCode code="completed" /> <effectiveTime value="500754150843" /> <value unit="mg/dL" xsi:type="PQ" value="138" / > <interpretationCode codeSystem="local" code="*" /> < referenceRange> <observationRange> <text>70-99</text> </observationRange> </referenceRange> </observation> </component> <component> <observation moodCode="EVN" classCode= "OBS"> <templateId root="840.1.219541.06.06.22.4.2" /> < id nullFlavor="NA" /> <code codeSystem="local" code="CA" displayName= "CALCIUM" /> <statusCode code="completed" /> <effectiveTime value="732372278049" /> <value unit="mg/dL" xsi:type="PQ" value="9.4" / > <referenceRange> <observationRange> <text>8.5 -10.1</text> </observationRange> </referenceRange> </ observation> </component> <component> <observation moodCode= "EVN" classCode="OBS"> <templateId root="10.03.840.1.661504.22.4.2 " /> <id nullFlavor="NA" /> <code codeSystem="local" code="BUN " displayName="BLOOD UREA NITROGEN" /> <statusCode code="completed" /> <effectiveTime value="744310146940" /> <value unit="mg/dL" xsi:type="PQ" value="39" /> <interpretationCode codeSystem="local" code ="*" /> <referenceRange> <observationRange> < text>7-20</text> </observationRange> </referenceRange> </observation> </component> <component> <observation moodCode="EVN" classCode="OBS"> <templateId root= "2.16.840.1.705852.10..22.4.2" /> <id nullFlavor="NA" /> < code codeSystem="local" code="CREAT" displayName="CREATININE" /> < statusCode code="completed" /> <effectiveTime value="578444478593" /> <value unit="mg/dL" xsi:type="PQ" value="1.0" /> < referenceRange> <observationRange> <text>0.6-1.0</text> </observationRange> </referenceRange> </observation > </component> <component> <observation moodCode="EVN" classCode="OBS"> <templateId root="2.16.840.1.471572.10..22.4.2" /> <id nullFlavor="NA" /> <code codeSystem="local" code="NA" displayName="SODIUM" /> <statusCode code="completed" /> < effectiveTime value="682958267968" /> <value unit="mmol/L" xsi:type="PQ " value="133" /> <interpretationCode codeSystem="local" code="*" /> <referenceRange> <observationRange> <text>135-148 </text> </observationRange> </referenceRange> </ observation> </component> <component> <observation moodCode= "EVN" classCode="OBS"> <templateId root="16.840.1.234139.10...4.2 " /> <id nullFlavor="NA" /> <code codeSystem="local" code="CL " displayName="CHLORIDE" /> <statusCode code="completed" /> < effectiveTime value="459786054909" /> <value unit="mmol/L" xsi:type="PQ " value="100" /> <referenceRange> <observationRange> <text>98-110</text> </observationRange> </ referenceRange> </observation> </component> <component> <observation moodCode="EVN" classCode="OBS"> <templateId root= "216.840.1.439629.06.06.22.4.2" /> <id nullFlavor="NA" /> < code codeSystem="local" code="AST" displayName="AST/SGOT" /> < statusCode code="completed" /> <effectiveTime value="" /> <value unit="Units/L" xsi:type="PQ" value="20" /> < referenceRange> <observationRange> <text>10-37</text> </observationRange> </referenceRange> </observation> </component> <component> <observation moodCode="EVN" classCode= "OBS"> <templateId root="10.03.840.1.866176.10...4.2" /> < id nullFlavor="NA" /> <code codeSystem="local" code="ALT" displayName= "ALT/SGPT" /> <statusCode code="completed" /> <effectiveTime value="112835817240" /> <value unit="Units/L" xsi:type="PQ" value="29" /> <referenceRange> <observationRange> <text>& lt; 66</text> </observationRange> </referenceRange> < /observation> </component> <component> <observation moodCode= "EVN" classCode="OBS"> <templateId root="16.840.1.908717.10..4.2 " /> <id nullFlavor="NA" /> <code codeSystem="local" code="CO2 " displayName="CARBON DIOXIDE" /> <statusCode code="completed" /> <effectiveTime value="207272670875" /> <value unit="mmol/L" xsi: type="PQ" value="24" /> <referenceRange> <observationRange> <text>21-32</text> </observationRange> </ referenceRange> </observation> </component> <component> <observation moodCode="EVN" classCode="OBS"> <templateId root= "840.1.219992.06.06.22.4.2" /> <id nullFlavor="NA" /> < code codeSystem="local" code="TP" displayName="TOTAL PROTEIN" /> < statusCode code="completed" /> <effectiveTime value="630520689487" /> <value unit="gm/dL" xsi:type="PQ" value="7.5" /> < referenceRange> <observationRange> <text>6.4-8.2</text> </observationRange> </referenceRange> </observation > </component> <component> <observation moodCode="EVN" classCode="OBS"> <templateId root="10.03.840.1.517935.102022.4.2" /> <id nullFlavor="NA" /> <code codeSystem="local" code="ALB" displayName="ALBUMIN" /> <statusCode code="completed" /> < effectiveTime value="722005333121" /> <value unit="gm/dL" xsi:type="PQ " value="3.4" /> <referenceRange> <observationRange> <text>3.4-5.0</text> </observationRange> </ referenceRange> </observation> </component> <component> <observation moodCode="EVN" classCode="OBS"> <templateId root= "216.840.1.972578.10..4.2" /> <id nullFlavor="NA" /> < code codeSystem="local" code="BILTOT" displayName="BILI TOTAL" /> < statusCode code="completed" /> <effectiveTime value="885336912879" /> <value unit="mg/dL" xsi:type="PQ" value="< 0.1" /> < referenceRange> <observationRange> <text>0.0-1.0</text> </observationRange> </referenceRange> </observation > </component> <component> <observation moodCode="EVN" classCode="OBS"> <templateId root="216.840.1.032656.10..4.2" /> <id nullFlavor="NA" /> <code codeSystem="local" code="ALKP" displayName="ALKALINE PHOSPHATASE TOTAL" /> <statusCode code="completed " /> <effectiveTime value="718825761307" /> <value unit="IU/L " xsi:type="PQ" value="100" /> <referenceRange> < observationRange> <text>45-117</text> </observationRange > </referenceRange> </observation> </component> </ organizer> </entry> <entry> <organizer moodCode="EVN" classCode="BATTERY"> <templateId root="2.16.840.1.111745.10..4.1" /> <id nullFlavor= "NA" /> <code codeSystem="local" code="TROPI" displayName="TROPONIN I" /> <statusCode code="completed" /> <component> <observation moodCode="EVN" classCode="OBS"> <templateId root= "16.840.1.777416.06.06.22.4.2" /> <id nullFlavor="NA" /> < code codeSystem="local" code="TROPI" displayName="TROPONIN I" /> < statusCode code="completed" /> <effectiveTime value="085098479431" /> <value unit="ng/mL" xsi:type="PQ" value="< 0.02" /> < referenceRange> <observationRange> <text>< 0.07</text > </observationRange> </referenceRange> </observation > </component> </organizer> </entry> <entry> <organizer moodCode= "EVN" classCode="BATTERY"> <templateId root="10.03.840.1.139973.06.06.22.4.1 " /> <id nullFlavor="NA" /> <code codeSystem="local" code="DIMER" displayName="D-DIMER QUANT" /> <statusCode code="completed" /> < component> <observation moodCode="EVN" classCode="OBS"> < templateId root="10.03.840.1.230801.06.06.22.4.2" /> <id nullFlavor="NA " /> <code codeSystem="local" code="DIMER" displayName="D-DIMER QUANT" /> <statusCode code="completed" /> <effectiveTime value= "852977585048" /> <value unit="ng/mL" xsi:type="PQ" value="934" /> <interpretationCode codeSystem="local" code="*" /> < referenceRange> <observationRange> <text>< 612</text > </observationRange> </referenceRange> </observation > </component> </organizer> </entry> <entry> <organizer moodCode= "EVN" classCode="BATTERY"> <templateId root="16.840.1.893468.10..22.4.1 " /> <id nullFlavor="NA" /> <code codeSystem="local" code="iCHEM8" displayName="CHEM/HEM PROFILE-BEDSIDE" /> <statusCode code="completed" /> <component> <observation moodCode="EVN" classCode="OBS"> < templateId root="16.840.1.651655.06.06.22.4.2" /> <id nullFlavor="NA " /> <code codeSystem="local" code="K" displayName="POTASSIUM" /> <statusCode code="completed" /> <effectiveTime value="776958744010 " /> <value unit="mmol/L" xsi:type="PQ" value="3.7" /> < referenceRange> <observationRange> <text>3.5-5.3</text> </observationRange> </referenceRange> </observation > </component> <component> <observation moodCode="EVN" classCode="OBS"> <templateId root="10.03.840.1.423620.06.06.22.4.2" /> <id nullFlavor="NA" /> <code codeSystem="local" code="CMETHOD " displayName="METHOD" /> <statusCode code="completed" /> < effectiveTime value="242186870028" /> <value unit="" xsi:type="PQ" value="Bedside" /> <referenceRange> <observationRange> <text /> </observationRange> </referenceRange> </observation> </component> <component> <observation moodCode="EVN" classCode="OBS"> <templateId root= "216.840.1.089845.10.22.4.2" /> <id nullFlavor="NA" /> < code codeSystem="local" code="GAP" displayName="ANION GAP" /> < statusCode code="completed" /> <effectiveTime value="" /> <value unit="mmol/L" xsi:type="PQ" value="21" /> < interpretationCode codeSystem="local" code="*" /> <referenceRange> <observationRange> <text>10-20</text> </ observationRange> </referenceRange> </observation> </ component> <component> <observation moodCode="EVN" classCode="OBS"> <templateId root="216.840.1.141970.06.06.22.4.2" /> <id nullFlavor="NA" /> <code codeSystem="local" code="HMETHOD" displayName= "METHOD" /> <statusCode code="completed" /> <effectiveTime value="" /> <value unit="" xsi:type="PQ" value="Bedside" / > <referenceRange> <observationRange> <text /> </observationRange> </referenceRange> </observation > </component> <component> <observation moodCode="EVN" classCode="OBS"> <templateId root="16.840.1.104808.10..4.2" /> <id nullFlavor="NA" /> <code codeSystem="local" code="GLU" displayName="GLUCOSE" /> <statusCode code="completed" /> < effectiveTime value="" /> <value unit="mg/dL" xsi:type="PQ " value="101" /> <interpretationCode codeSystem="local" code="*" /> <referenceRange> <observationRange> <text>70-99</ text> </observationRange> </referenceRange> </ observation> </component> <component> <observation moodCode= "EVN" classCode="OBS"> <templateId root="16.840.1.300619.10..22.4.2 " /> <id nullFlavor="NA" /> <code codeSystem="local" code="BUN " displayName="BLOOD UREA NITROGEN" /> <statusCode code="completed" /> <effectiveTime value="510201918635" /> <value unit="mg/dL" xsi:type="PQ" value="17" /> <referenceRange> < observationRange> <text>7-20</text> </observationRange> </referenceRange> </observation> </component> < component> <observation moodCode="EVN" classCode="OBS"> < templateId root="10.03.840.1.543754.06.06.22.4.2" /> <id nullFlavor="NA " /> <code codeSystem="local" code="CREAT" displayName="CREATININE" /> <statusCode code="completed" /> <effectiveTime value= "497405624734" /> <value unit="mg/dL" xsi:type="PQ" value="0.7" /> <referenceRange> <observationRange> <text>0.6-1.0< /text> </observationRange> </referenceRange> </ observation> </component> <component> <observation moodCode= "EVN" classCode="OBS"> <templateId root="10.03.840.1.665005.10.20.22.4.2 " /> <id nullFlavor="NA" /> <code codeSystem="local" code= "HGBT" displayName="HEMOGLOBIN" /> <statusCode code="completed" /> <effectiveTime value="153322990075" /> <value unit="gm/dL" xsi: type="PQ" value="9.5" /> <interpretationCode codeSystem="local" code="* " /> <referenceRange> <observationRange> <text> 12.0-16.0</text> </observationRange> </referenceRange> </observation> </component> <component> <observation moodCode="EVN" classCode="OBS"> <templateId root= "2.16.840.1.361897.10.20.22.4.2" /> <id nullFlavor="NA" /> < code codeSystem="local" code="HCTT" displayName="HEMATOCRIT" /> < statusCode code="completed" /> <effectiveTime value="483464837862" /> <value unit="%" xsi:type="PQ" value="28.0" /> < interpretationCode codeSystem="local" code="*" /> <referenceRange> <observationRange> <text>37.0-47.0</text> </ observationRange> </referenceRange> </observation> </ component> <component> <observation moodCode="EVN" classCode="OBS"> <templateId root="216.840.1.980212.10.20.22.4.2" /> <id nullFlavor="NA" /> <code codeSystem="local" code="NA" displayName= "SODIUM" /> <statusCode code="completed" /> <effectiveTime value="810365028171" /> <value unit="mmol/L" xsi:type="PQ" value="136" /> <referenceRange> <observationRange> <text> 135-148</text> </observationRange> </referenceRange> </observation> </component> <component> <observation moodCode= "EVN" classCode="OBS"> <templateId root="16.840.1.500007.10..22.4.2 " /> <id nullFlavor="NA" /> <code codeSystem="local" code="CL " displayName="CHLORIDE" /> <statusCode code="completed" /> < effectiveTime value="" /> <value unit="mmol/L" xsi:type="PQ " value="95" /> <interpretationCode codeSystem="local" code="*" /> <referenceRange> <observationRange> <text>98-110</ text> </observationRange> </referenceRange> </ observation> </component> <component> <observation moodCode= "EVN" classCode="OBS"> <templateId root="10.03.840.1.471196.10...4.2 " /> <id nullFlavor="NA" /> <code codeSystem="local" code="CO2 " displayName="CARBON DIOXIDE" /> <statusCode code="completed" /> <effectiveTime value="" /> <value unit="mmol/L" xsi: type="PQ" value="24" /> <referenceRange> <observationRange> <text>21-32</text> </observationRange> </ referenceRange> </observation> </component> <component> <observation moodCode="EVN" classCode="OBS"> <templateId root= "10.03.840.1.735723.10..22.4.2" /> <id nullFlavor="NA" /> < code codeSystem="local" code="CAION" displayName="CALCIUM IONIZED" /> < statusCode code="completed" /> <effectiveTime value="" /> <value unit="mg/dL" xsi:type="PQ" value="TEST NOT PERFORMED" /> <referenceRange> <observationRange> <text>4.5-5.3</ text> </observationRange> </referenceRange> </ observation> </component> </organizer> </entry> <entry> <organizer moodCode="EVN" classCode="BATTERY"> <templateId root= "216.840.1.183262.10..22.4.1" /> <id nullFlavor="NA" /> <code codeSystem="local" code="iTROPI" displayName="TROPONIN I BEDSIDE" /> < statusCode code="completed" /> <component> <observation moodCode= "EVN" classCode="OBS"> <templateId root="2.16.840.1.316647.10..22.4.2 " /> <id nullFlavor="NA" /> <code codeSystem="local" code= "CMETHOD" displayName="METHOD" /> <statusCode code="completed" /> <effectiveTime value="" /> <value unit="" xsi:type="PQ " value="Bedside" /> <referenceRange> <observationRange> <text /> </observationRange> </referenceRange> </observation> </component> <component> <observation moodCode="EVN" classCode="OBS"> <templateId root= "2.16.840.1.108473.10..22.4.2" /> <id nullFlavor="NA" /> < code codeSystem="local" code="TROPI" displayName="TROPONIN I" /> < statusCode code="completed" /> <effectiveTime value="" /> <value unit="ng/mL" xsi:type="PQ" value="< 0.04" /> < referenceRange> <observationRange> <text>< 0.11</text > </observationRange> </referenceRange> </observation > </component> </organizer> </entry> <entry> <organizer moodCode= "EVN" classCode="BATTERY"> <templateId root="216.840.1.481650.10...4.1 " /> <id nullFlavor="NA" /> <code codeSystem="local" code="CBCD" displayName="CBC W/DIFF" /> <statusCode code="completed" /> <component > <observation moodCode="EVN" classCode="OBS"> <templateId root= "10.03.840.1.787312.10..4.2" /> <id nullFlavor="NA" /> < code codeSystem="local" code="BA#" displayName="BASOPHIL #" /> < statusCode code="completed" /> <effectiveTime value="" /> <value unit="k/cumm" xsi:type="PQ" value="0.1" /> < referenceRange> <observationRange> <text>0.0-0.2</text> </observationRange> </referenceRange> </observation > </component> <component> <observation moodCode="EVN" classCode="OBS"> <templateId root="216.840.1.581265.10..4.2" /> <id nullFlavor="NA" /> <code codeSystem="local" code="BA% " displayName="BASOPHIL %" /> <statusCode code="completed" /> <effectiveTime value="" /> <value unit="%" xsi: type="PQ" value="1" /> <referenceRange> <observationRange> <text>0-1</text> </observationRange> </ referenceRange> </observation> </component> <component> <observation moodCode="EVN" classCode="OBS"> <templateId root= "216.840.1.304845.06.06.22.4.2" /> <id nullFlavor="NA" /> < code codeSystem="local" code="EO#" displayName="EOSINOPHIL #" /> < statusCode code="completed" /> <effectiveTime value="" /> <value unit="k/cumm" xsi:type="PQ" value="0.1" /> < referenceRange> <observationRange> <text>0.1-0.5</text> </observationRange> </referenceRange> </observation > </component> <component> <observation moodCode="EVN" classCode="OBS"> <templateId root="216.840.1.893315.06.06.22.4.2" /> <id nullFlavor="NA" /> <code codeSystem="local" code="EO% " displayName="EOSINOPHIL %" /> <statusCode code="completed" /> <effectiveTime value="" /> <value unit="%" xsi: type="PQ" value="3" /> <referenceRange> <observationRange> <text>2-4</text> </observationRange> </ referenceRange> </observation> </component> <component> <observation moodCode="EVN" classCode="OBS"> <templateId root= "16.840.1.873823.06.06.22.4.2" /> <id nullFlavor="NA" /> < code codeSystem="local" code="GR#" displayName="GRANULOCYTE #" /> < statusCode code="completed" /> <effectiveTime value="" /> <value unit="k/cumm" xsi:type="PQ" value="1.9" /> < interpretationCode codeSystem="local" code="*" /> <referenceRange> <observationRange> <text>2.0-9.0</text> </ observationRange> </referenceRange> </observation> </ component> <component> <observation moodCode="EVN" classCode="OBS"> <templateId root="10.03.840.1.591147.102022.4.2" /> <id nullFlavor="NA" /> <code codeSystem="local" code="GR%" displayName= "GRANULOCYTE %" /> <statusCode code="completed" /> < effectiveTime value="" /> <value unit="%" xsi:type="PQ " value="40" /> <interpretationCode codeSystem="local" code="*" /> <referenceRange> <observationRange> <text>50-75</ text> </observationRange> </referenceRange> </ observation> </component> <component> <observation moodCode= "EVN" classCode="OBS"> <templateId root="840.1.939633.06.06.22.4.2 " /> <id nullFlavor="NA" /> <code codeSystem="local" code="LY# " displayName="LYMPHOCYTE #" /> <statusCode code="completed" /> <effectiveTime value="" /> <value unit="k/cumm" xsi:type ="PQ" value="2.0" /> <referenceRange> <observationRange> <text>1.0-4.0</text> </observationRange> </ referenceRange> </observation> </component> <component> <observation moodCode="EVN" classCode="OBS"> <templateId root= "10.03.840.1.545110.102022.4.2" /> <id nullFlavor="NA" /> < code codeSystem="local" code="LY%" displayName="LYMPHOCYTE %" /> <statusCode code="completed" /> <effectiveTime value="" /> <value unit="%" xsi:type="PQ" value="41" /> < interpretationCode codeSystem="local" code="*" /> <referenceRange> <observationRange> <text>20-30</text> </ observationRange> </referenceRange> </observation> </ component> <component> <observation moodCode="EVN" classCode="OBS"> <templateId root="216.840.1.271555.10.20.22.4.2" /> <id nullFlavor="NA" /> <code codeSystem="local" code="MCH" displayName= "MEAN CELL HGB" /> <statusCode code="completed" /> < effectiveTime value="" /> <value unit="pg" xsi:type="PQ" value="24.5" /> <interpretationCode codeSystem="local" code="*" /> <referenceRange> <observationRange> <text>27.0- 33.0</text> </observationRange> </referenceRange> </ observation> </component> <component> <observation moodCode= "EVN" classCode="OBS"> <templateId root="216.840.1.021183.10.20.22.4.2 " /> <id nullFlavor="NA" /> <code codeSystem="local" code= "MCHC" displayName="MEAN CELL HGB CONCENTRATION" /> <statusCode code= "completed" /> <effectiveTime value="" /> <value unit="g/dL" xsi:type="PQ" value="31.1" /> <interpretationCode codeSystem="local" code="*" /> <referenceRange> < observationRange> <text>32.0-37.0</text> </ observationRange> </referenceRange> </observation> </ component> <component> <observation moodCode="EVN" classCode="OBS"> <templateId root="16.840.1.214741.10.22.4.2" /> <id nullFlavor="NA" /> <code codeSystem="local" code="MCV" displayName= "MEAN CELL VOLUME" /> <statusCode code="completed" /> < effectiveTime value="" /> <value unit="fl" xsi:type="PQ" value="78.7" /> <interpretationCode codeSystem="local" code="*" /> <referenceRange> <observationRange> <text>80.0- 100.0</text> </observationRange> </referenceRange> </ observation> </component> <component> <observation moodCode= "EVN" classCode="OBS"> <templateId root="840.1.261856.06.06.22.4.2 " /> <id nullFlavor="NA" /> <code codeSystem="local" code="MO# " displayName="MONOCYTE #" /> <statusCode code="completed" /> <effectiveTime value="" /> <value unit="k/cumm" xsi:type= "PQ" value="0.7" /> <referenceRange> <observationRange> <text>0.1-1.0</text> </observationRange> </ referenceRange> </observation> </component> <component> <observation moodCode="EVN" classCode="OBS"> <templateId root= "10.03.840.1.970493.10.2022.4.2" /> <id nullFlavor="NA" /> < code codeSystem="local" code="MO%" displayName="MONOCYTE %" /> <statusCode code="completed" /> <effectiveTime value="" /> <value unit="%" xsi:type="PQ" value="15" /> < interpretationCode codeSystem="local" code="*" /> <referenceRange> <observationRange> <text>4-6</text> </ observationRange> </referenceRange> </observation> </ component> <component> <observation moodCode="EVN" classCode="OBS"> <templateId root="10.03.840.1.778809.10.22.4.2" /> <id nullFlavor="NA" /> <code codeSystem="local" code="MPVT" displayName= "MEAN PLATELET VOLUME" /> <statusCode code="completed" /> < effectiveTime value="" /> <value unit="fl" xsi:type="PQ" value="8.8" /> <referenceRange> <observationRange> <text>8.5-10.9</text> </observationRange> </ referenceRange> </observation> </component> <component> <observation moodCode="EVN" classCode="OBS"> <templateId root= "10.03.840.1.774166.10...4.2" /> <id nullFlavor="NA" /> < code codeSystem="local" code="RBC" displayName="RED BLOOD CELL" /> < statusCode code="completed" /> <effectiveTime value="" /> <value unit="m/cumm" xsi:type="PQ" value="3.43" /> < interpretationCode codeSystem="local" code="*" /> <referenceRange> <observationRange> <text>4.00-6.00</text> </ observationRange> </referenceRange> </observation> </ component> <component> <observation moodCode="EVN" classCode="OBS"> <templateId root="840.1.617480.10.20.22.4.2" /> <id nullFlavor="NA" /> <code codeSystem="local" code="RDW" displayName=" RED CELL DISTRIBUTION WIDTH" /> <statusCode code="completed" /> <effectiveTime value="" /> <value unit="%" xsi:type= "PQ" value="19.5" /> <interpretationCode codeSystem="local" code="*" / > <referenceRange> <observationRange> <text> 11.0-15.6</text> </observationRange> </referenceRange> </observation> </component> <component> <observation moodCode="EVN" classCode="OBS"> <templateId root= "10.03.840.1.034316.10.22.4.2" /> <id nullFlavor="NA" /> < code codeSystem="local" code="WBC" displayName="WHITE BLOOD CELL" /> < statusCode code="completed" /> <effectiveTime value="" /> <value unit="k/cumm" xsi:type="PQ" value="4.8" /> < interpretationCode codeSystem="local" code="*" /> <referenceRange> <observationRange> <text>5.0-10.0</text> </ observationRange> </referenceRange> </observation> </ component> <component> <observation moodCode="EVN" classCode="OBS"> <templateId root="10.03.840.1.660684.10.2022.4.2" /> <id nullFlavor="NA" /> <code codeSystem="local" code="HGBT" displayName= "HEMOGLOBIN" /> <statusCode code="completed" /> < effectiveTime value="" /> <value unit="gm/dL" xsi:type="PQ " value="8.4" /> <interpretationCode codeSystem="local" code="*" /> <referenceRange> <observationRange> <text>12.0- 16.0</text> </observationRange> </referenceRange> </ observation> </component> <component> <observation moodCode= "EVN" classCode="OBS"> <templateId root="216.840.1.063226.06.06.22.4.2 " /> <id nullFlavor="NA" /> <code codeSystem="local" code= "HCTT" displayName="HEMATOCRIT" /> <statusCode code="completed" /> <effectiveTime value="[id number]" /> <value unit="%" xsi: type="PQ" value="27.0" /> <interpretationCode codeSystem="local" code= "*" /> <referenceRange> <observationRange> < text>37.0-47.0</text> </observationRange> </referenceRange> </observation> </component> <component> <observation moodCode="EVN" classCode="OBS"> <templateId root= "216.840.1.489421.06.06.22.4.2" /> <id nullFlavor="NA" /> < code codeSystem="local" code="PLTT" displayName="PLATELET COUNT" /> < statusCode code="completed" /> <effectiveTime value="" /> <value unit="k/cumm" xsi:type="PQ" value="387" /> < referenceRange> <observationRange> <text>150-400</text> </observationRange> </referenceRange> </observation > </component> </organizer> </entry> <entry> <organizer moodCode= "EVN" classCode="BATTERY"> <templateId root="216.840.1.131387.06.06.22.4.1 " /> <id nullFlavor="NA" /> <code codeSystem="local" code="MORPH" displayName="MORPHOLOGY" /> <statusCode code="completed" /> <component > <observation moodCode="EVN" classCode="OBS"> <templateId root= "10.03.840.1.532570.10.4.2" /> <id nullFlavor="NA" /> < code codeSystem="local" code="RMORPH" displayName="RBC MORPH" /> < statusCode code="completed" /> <effectiveTime value="" /> <value unit="" xsi:type="PQ" value="NOTED" /> <referenceRange > <observationRange> <text /> </ observationRange> </referenceRange> </observation> </ component> </organizer> </entry> <entry> <organizer moodCode="EVN" classCode="BATTERY"> <templateId root="10.03.840.1.008966.10.4.1" /> <id nullFlavor="NA" /> <code codeSystem="local" code="LIVER" displayName="HEPATIC FUNCTION PANEL" /> <statusCode code="completed" /> <component> <observation moodCode="EVN" classCode="OBS"> < templateId root="10.03.840.1.050657.06.06.22.4.2" /> <id nullFlavor="NA " /> <code codeSystem="local" code="BILUC" displayName="BILI UNCONJUGATED" /> <statusCode code="completed" /> < effectiveTime value="" /> <value unit="mg/dL" xsi:type="PQ " value="0.0" /> <referenceRange> <observationRange> <text>0.0-0.7</text> </observationRange> </ referenceRange> </observation> </component> <component> <observation moodCode="EVN" classCode="OBS"> <templateId root= "216.840.1.957486.06.06.22.4.2" /> <id nullFlavor="NA" /> < code codeSystem="local" code="AST" displayName="AST/SGOT" /> < statusCode code="completed" /> <effectiveTime value="" /> <value unit="Units/L" xsi:type="PQ" value="17" /> < referenceRange> <observationRange> <text>10-37</text> </observationRange> </referenceRange> </observation> </component> <component> <observation moodCode="EVN" classCode= "OBS"> <templateId root="216.840.1.168234.06.06.22.4.2" /> < id nullFlavor="NA" /> <code codeSystem="local" code="ALT" displayName= "ALT/SGPT" /> <statusCode code="completed" /> <effectiveTime value="" /> <value unit="Units/L" xsi:type="PQ" value="22" /> <referenceRange> <observationRange> <text>& lt; 66</text> </observationRange> </referenceRange> < /observation> </component> <component> <observation moodCode= "EVN" classCode="OBS"> <templateId root="16.840.1.709077.10.4.2 " /> <id nullFlavor="NA" /> <code codeSystem="local" code="TP " displayName="TOTAL PROTEIN" /> <statusCode code="completed" /> <effectiveTime value="" /> <value unit="gm/dL" xsi:type ="PQ" value="6.4" /> <referenceRange> <observationRange> <text>6.4-8.2</text> </observationRange> </ referenceRange> </observation> </component> <component> <observation moodCode="EVN" classCode="OBS"> <templateId root= "16.840.1.169163.10.20.22.4.2" /> <id nullFlavor="NA" /> < code codeSystem="local" code="ALB" displayName="ALBUMIN" /> < statusCode code="completed" /> <effectiveTime value="" /> <value unit="gm/dL" xsi:type="PQ" value="2.9" /> < interpretationCode codeSystem="local" code="*" /> <referenceRange> <observationRange> <text>3.4-5.0</text> </ observationRange> </referenceRange> </observation> </ component> <component> <observation moodCode="EVN" classCode="OBS"> <templateId root="10.03.840.1.653027.06.06.22.4.2" /> <id nullFlavor="NA" /> <code codeSystem="local" code="BILTOT" displayName= "BILI TOTAL" /> <statusCode code="completed" /> < effectiveTime value="" /> <value unit="mg/dL" xsi:type="PQ " value="< 0.1" /> <referenceRange> <observationRange> <text>0.0-1.0</text> </observationRange> </ referenceRange> </observation> </component> <component> <observation moodCode="EVN" classCode="OBS"> <templateId root= "16.840.1.314682.10..22.4.2" /> <id nullFlavor="NA" /> < code codeSystem="local" code="ALKP" displayName="ALKALINE PHOSPHATASE TOTAL" /> <statusCode code="completed" /> <effectiveTime value= "" /> <value unit="IU/L" xsi:type="PQ" value="80" /> <referenceRange> <observationRange> <text>45-117</ text> </observationRange> </referenceRange> </ observation> </component> <component> <observation moodCode= "EVN" classCode="OBS"> <templateId root="840.1.865809.06.06.22.4.2 " /> <id nullFlavor="NA" /> <code codeSystem="local" code= "BILC" displayName="BILI CONJUGATED" /> <statusCode code="completed" / > <effectiveTime value="" /> <value unit="mg/dL" xsi:type="PQ" value="< 0.1" /> <referenceRange> < observationRange> <text>0.0-0.3</text> </ observationRange> </referenceRange> </observation> </ component> </organizer> </entry> <entry> <organizer moodCode="EVN" classCode="BATTERY"> <templateId root="10.03.840.1.680449.06.06.22.4.1" /> <id nullFlavor="NA" /> <code codeSystem="local" code="LIP" displayName ="LIPASE" /> <statusCode code="completed" /> <component> < observation moodCode="EVN" classCode="OBS"> <templateId root= "10.03.840.1.502492.22.4.2" /> <id nullFlavor="NA" /> < code codeSystem="local" code="LIP" displayName="LIPASE" /> <statusCode code="completed" /> <effectiveTime value="812927691509" /> < value unit="Units/L" xsi:type="PQ" value="92" /> <referenceRange> <observationRange> <text>73-393</text> </ observationRange> </referenceRange> </observation> </ component> </organizer> </entry> <entry> <organizer moodCode="EVN" classCode="BATTERY"> <templateId root="16.840.1.375454.10..22.4.1" /> <id nullFlavor="NA" /> <code codeSystem="local" code="ACTMN" displayName="ACETAMINOPHEN (TYLENOL)" /> <statusCode code="completed" /> <component> <observation moodCode="EVN" classCode="OBS"> < templateId root="216.840.1.305716.10..22.4.2" /> <id nullFlavor="NA " /> <code codeSystem="local" code="ACTMN" displayName="ACETAMINOPHEN ( TYLENOL)" /> <statusCode code="completed" /> <effectiveTime value="296038097240" /> <value unit="mcg/mL" xsi:type="PQ" value="< 2" /> <referenceRange> <observationRange> <text >10-30</text> </observationRange> </referenceRange> < /observation> </component> </organizer> </entry> <entry> < organizer moodCode="EVN" classCode="BATTERY"> <templateId root= "216.840.1.809131.10..22.4.1" /> <id nullFlavor="NA" /> <code codeSystem="local" code="SALI" displayName="SALICYLATE (ASPIRIN)" /> < statusCode code="completed" /> <component> <observation moodCode= "EVN" classCode="OBS"> <templateId root="16.840.1.318291.10..22.4.2 " /> <id nullFlavor="NA" /> <code codeSystem="local" code= "SALINUM" displayName="SALICYLATE" /> <statusCode code="completed" /> <effectiveTime value="895096950557" /> <value unit="mg/dL" xsi :type="PQ" value="< 2.8" /> <referenceRange> < observationRange> <text>2.8-29.0</text> </ observationRange> </referenceRange> </observation> </ component> </organizer> </entry> <entry> <organizer moodCode="EVN" classCode="BATTERY"> <templateId root="16.840.1.769546.10..22.4.1" /> <id nullFlavor="NA" /> <code codeSystem="local" code="DRUGAB" displayName="UR DRUGS OF ABUSE SCREEN" /> <statusCode code="completed" /> <component> <observation moodCode="EVN" classCode="OBS"> < templateId root="216.840.1.543044.10..22.4.2" /> <id nullFlavor="NA " /> <code codeSystem="local" code="AMPHU" displayName="UR AMPHETAMINES SCREEN" /> <statusCode code="completed" /> < effectiveTime value="317848293817" /> <value unit="" xsi:type="PQ" value="POS (>1000 ng/mL)" /> <referenceRange> < observationRange> <text>NEGATIVE</text> </ observationRange> </referenceRange> </observation> </ component> <component> <observation moodCode="EVN" classCode="OBS"> <templateId root="16.840.1.549178.06.06.22.4.2" /> <id nullFlavor="NA" /> <code codeSystem="local" code="BARBU" displayName= "UR BARBITURATE SCREEN" /> <statusCode code="completed" /> < effectiveTime value="216256857038" /> <value unit="" xsi:type="PQ" value="NEG (< 200 ng/mL)" /> <referenceRange> < observationRange> <text>NEGATIVE</text> </ observationRange> </referenceRange> </observation> </ component> <component> <observation moodCode="EVN" classCode="OBS"> <templateId root="2.16.840.1.251498.06.06.22.4.2" /> <id nullFlavor="NA" /> <code codeSystem="local" code="DAUCOMMENT" displayName="DRUGS OF ABUSE SCREEN COMMENT" /> <statusCode code= "completed" /> <effectiveTime value="918975227714" /> <value unit="" xsi:type="PQ" value="" /> <referenceRange> < observationRange> <text /> </observationRange> </referenceRange> </observation> </component> <component> <observation moodCode="EVN" classCode="OBS"> <templateId root= "2.16.840.1.832174.10.4.2" /> <id nullFlavor="NA" /> < code codeSystem="local" code="OPIU" displayName="UR OPIATES SCREEN" /> <statusCode code="completed" /> <effectiveTime value="" /> <value unit="" xsi:type="PQ" value="NEG (< 300 ng/mL)" /> <referenceRange> <observationRange> <text>NEGATIVE</ text> </observationRange> </referenceRange> </ observation> </component> <component> <observation moodCode= "EVN" classCode="OBS"> <templateId root="216.840.1.709932.10..4.2 " /> <id nullFlavor="NA" /> <code codeSystem="local" code= "PCPU" displayName="UR PHENCYCLIDINE (PCP) SCREEN" /> <statusCode code= "completed" /> <effectiveTime value="" /> <value unit="" xsi:type="PQ" value="NEG (< 25 ng/mL)" /> <referenceRange > <observationRange> <text>NEGATIVE</text> </ observationRange> </referenceRange> </observation> </ component> <component> <observation moodCode="EVN" classCode="OBS"> <templateId root="216.840.1.032242.06.06.22.4.2" /> <id nullFlavor="NA" /> <code codeSystem="local" code="THCU" displayName=" UR CANNABINOIDS (THC) SCREEN" /> <statusCode code="completed" /> <effectiveTime value="125967823413" /> <value unit="" xsi:type="PQ " value="NEG (< 50 ng/mL)" /> <referenceRange> < observationRange> <text>NEGATIVE</text> </ observationRange> </referenceRange> </observation> </ component> <component> <observation moodCode="EVN" classCode="OBS"> <templateId root="216.840.1.328558.10...4.2" /> <id nullFlavor="NA" /> <code codeSystem="local" code="COCAU" displayName= "UR COCAINE METABOLITE SCREEN" /> <statusCode code="completed" /> <effectiveTime value="" /> <value unit="" xsi:type="PQ " value="NEG (< 300 ng/mL)" /> <referenceRange> < observationRange> <text>NEGATIVE</text> </ observationRange> </referenceRange> </observation> </ component> <component> <observation moodCode="EVN" classCode="OBS"> <templateId root="216.840.1.030751.10.20.22.4.2" /> <id nullFlavor="NA" /> <code codeSystem="local" code="METHU" displayName= "UR METHADONE SCREEN" /> <statusCode code="completed" /> < effectiveTime value="278947786825" /> <value unit="" xsi:type="PQ" value="NEG (< 300 ng/mL)" /> <referenceRange> < observationRange> <text>NEGATIVE</text> </ observationRange> </referenceRange> </observation> </ component> <component> <observation moodCode="EVN" classCode="OBS"> <templateId root="216.840.1.414075.10..22.4.2" /> <id nullFlavor="NA" /> <code codeSystem="local" code="BENZU" displayName= "UR BENZODIAZEPINE SCREEN" /> <statusCode code="completed" /> <effectiveTime value="058700535262" /> <value unit="" xsi:type="PQ" value="NEG (< 200 ng/mL)" /> <referenceRange> < observationRange> <text>NEGATIVE</text> </ observationRange> </referenceRange> </observation> </ component> </organizer> </entry> <entry> <organizer moodCode="EVN" classCode="BATTERY"> <templateId root="216.840.1.636526.10.20.22.4.1" /> <id nullFlavor="NA" /> <code codeSystem="local" code="UA" displayName= "URINALYSIS, ROUTINE" /> <statusCode code="completed" /> <component> <observation moodCode="EVN" classCode="OBS"> <templateId root= "16.840.1.381431.06.06.22.4.2" /> <id nullFlavor="NA" /> < code codeSystem="local" code="LEUESU" displayName="UA LEUKOCYTE ESTERASE DIPSTICK" /> <statusCode code="completed" /> <effectiveTime value="" /> <value unit="" xsi:type="PQ" value="NEGATIVE" / > <referenceRange> <observationRange> <text> NEGATIVE</text> </observationRange> </referenceRange> </observation> </component> <component> <observation moodCode ="EVN" classCode="OBS"> <templateId root= "10.03.840.1.220184.06.06.224.2" /> <id nullFlavor="NA" /> < code codeSystem="local" code="NITRIU" displayName="UA NITRITE DIPSTICK" /> <statusCode code="completed" /> <effectiveTime value=" " /> <value unit="" xsi:type="PQ" value="NEGATIVE" /> < referenceRange> <observationRange> <text>NEGATIVE</text > </observationRange> </referenceRange> </observation > </component> <component> <observation moodCode="EVN" classCode="OBS"> <templateId root="10.03.840.1.905806.06.06.22.4.2" /> <id nullFlavor="NA" /> <code codeSystem="local" code="PROTEIU " displayName="UA PROTEIN DIPSTICK" /> <statusCode code="completed" /> <effectiveTime value="" /> <value unit="" xsi: type="PQ" value="NEGATIVE" /> <referenceRange> < observationRange> <text>NEGATIVE</text> </ observationRange> </referenceRange> </observation> </ component> <component> <observation moodCode="EVN" classCode="OBS"> <templateId root="16.840.1.139098.10..4.2" /> <id nullFlavor="NA" /> <code codeSystem="local" code="DGLUU" displayName= "UA GLUCOSE DIPSTICK" /> <statusCode code="completed" /> < effectiveTime value="" /> <value unit="" xsi:type="PQ" value="NEGATIVE" /> <referenceRange> <observationRange> <text>NEGATIVE</text> </observationRange> </ referenceRange> </observation> </component> <component> <observation moodCode="EVN" classCode="OBS"> <templateId root= "10.03.840.1.397153.10.4.2" /> <id nullFlavor="NA" /> < code codeSystem="local" code="KETONU" displayName="UA KETONE DIPSTICK" /> <statusCode code="completed" /> <effectiveTime value=" " /> <value unit="" xsi:type="PQ" value="NEGATIVE" /> < referenceRange> <observationRange> <text>NEGATIVE</text > </observationRange> </referenceRange> </observation > </component> <component> <observation moodCode="EVN" classCode="OBS"> <templateId root="10.03.840.1.338604.10.4.2" /> <id nullFlavor="NA" /> <code codeSystem="local" code="UROBILU " displayName="UA UROBILINOGEN DIPSTICK" /> <statusCode code="completed " /> <effectiveTime value="" /> <value unit="" xsi :type="PQ" value="NORMAL" /> <referenceRange> < observationRange> <text>NORMAL</text> </observationRange > </referenceRange> </observation> </component> < component> <observation moodCode="EVN" classCode="OBS"> < templateId root="216.840.1.434600.10..4.2" /> <id nullFlavor="NA " /> <code codeSystem="local" code="BILU" displayName="UA BILIRUBIN DIPSTICK" /> <statusCode code="completed" /> <effectiveTime value="" /> <value unit="" xsi:type="PQ" value="NEGATIVE" / > <referenceRange> <observationRange> <text> NEGATIVE</text> </observationRange> </referenceRange> </observation> </component> <component> <observation moodCode ="EVN" classCode="OBS"> <templateId root= "10.03.840.1.542600.06.06.22.4.2" /> <id nullFlavor="NA" /> < code codeSystem="local" code="ADAM" displayName="UA BLOOD DIPSTICK" /> < statusCode code="completed" /> <effectiveTime value="" /> <value unit="" xsi:type="PQ" value="NEGATIVE" /> < referenceRange> <observationRange> <text>NEGATIVE</text > </observationRange> </referenceRange> </observation > </component> <component> <observation moodCode="EVN" classCode="OBS"> <templateId root="16.840.1.905461...4.2" /> <id nullFlavor="NA" /> <code codeSystem="local" code="SPGRU" displayName="UA SPECIFIC GRAVITY" /> <statusCode code="completed" /> <effectiveTime value="" /> <value unit="" xsi:type= "PQ" value="1.015" /> <referenceRange> <observationRange> <text>1.015-1.025</text> </observationRange> </ referenceRange> </observation> </component> <component> <observation moodCode="EVN" classCode="OBS"> <templateId root= "16.840.1.859346.10.4.2" /> <id nullFlavor="NA" /> < code codeSystem="local" code="INGRID" displayName="UR PH" /> <statusCode code="completed" /> <effectiveTime value="" /> < value unit="" xsi:type="PQ" value="6.0" /> <referenceRange> <observationRange> <text>5.0-7.0</text> </ observationRange> </referenceRange> </observation> </ component> </organizer> </entry> <entry> <organizer moodCode="EVN" classCode="BATTERY"> <templateId root="10.03.840.1.630632.06.06.22.4.1" /> <id nullFlavor="NA" /> <code codeSystem="local" code="ALC" displayName ="ALCOHOL (ETHANOL) SERUM" /> <statusCode code="completed" /> < component> <observation moodCode="EVN" classCode="OBS"> < templateId root="10.03.840.1.330998.10.4.2" /> <id nullFlavor="NA " /> <code codeSystem="local" code="ALC" displayName="ALCOHOL (ETHANOL ) SERUM" /> <statusCode code="completed" /> <effectiveTime value="595241178438" /> <value unit="mg/dL" xsi:type="PQ" value="< 10" /> <referenceRange> <observationRange> < text> < 10</text> </observationRange> </referenceRange> </observation> </component> </organizer> </entry> <entry> < organizer moodCode="EVN" classCode="BATTERY"> <templateId root= "16.840.1.460609.10.22.4.1" /> <id nullFlavor="NA" /> <code codeSystem="local" code="LACTG" displayName="LACTIC ACID" /> <statusCode code="completed" /> <component> <observation moodCode="EVN" classCode="OBS"> <templateId root="16.840.1.468986...22.4.2" /> <id nullFlavor="NA" /> <code codeSystem="local" code="LACT" displayName="LACTIC ACID" /> <statusCode code="completed" /> < effectiveTime value="563115978224" /> <value unit="mmol/L" xsi:type="PQ " value="0.6" /> <referenceRange> <observationRange> <text>0.5-2.0</text> </observationRange> </ referenceRange> </observation> </component> </organizer> </entry > <entry> <organizer moodCode="EVN" classCode="BATTERY"> <templateId root="16.840.1.776696.10..22.4.1" /> <id nullFlavor="NA" /> <code codeSystem="local" code="BC" displayName="BLOOD CULTURE" /> <statusCode code="completed" /> <component> <observation moodCode="EVN" classCode="OBS"> <templateId root="2.16.840.1.995024.10.20.22.4.2" /> <id nullFlavor="NA" /> <code codeSystem="local" code="MB" displayName="Microbiology" /> <statusCode code="completed" /> <effectiveTime value="703693514328" /> <value xsi:type="ST" value="<pre ><b>BLOOD CULTURE</b> See BelowIs this a Possible Sepsis/Sepsis patient? NoIs this the first BLOOD CULTURE for this hospital visit? YesBLOOD CULTURE(F) Cosme Date/Time: 04/22/2017 20:34 Irvin Date /Time: 04/28/2017 06:42SOURCE: BLOODSPEC DESC: [id number] [facility] [place] [address]</pre>" /> < referenceRange> <observationRange> <text /> < /observationRange> </referenceRange> </observation> </ component> </organizer> </entry> <entry> <organizer moodCode="EVN" classCode="BATTERY"> <templateId root="2.16.840.1.703088.10..22.4.1" /> <id nullFlavor="NA" /> <code codeSystem="local" code="BC" displayName= "BLOOD CULTURE" /> <statusCode code="completed" /> <component> <observation moodCode="EVN" classCode="OBS"> <templateId root= "2.16.840.1.859757.10.20.22.4.2" /> <id nullFlavor="NA" /> < code codeSystem="local" code="MB" displayName="Microbiology" /> < statusCode code="completed" /> <effectiveTime value="069812930302" /> <value xsi:type="ST" value="<pre><b>BLOOD CULTURE</b> See BelowIs this a Possible Sepsis/Sepsis patient? NoIs this the first BLOOD CULTURE for this hospital visit? YesBLOOD CULTURE(F) Cosme Date/Time: 04/22/2017 20: 34 Irvin Date/Time: 04/28/2017 06:43SOURCE: BLOODSPEC DESC: [id number] [facility] [facility] [place] [address]</pre>" /> <referenceRange> < observationRange> <text /> </observationRange> </referenceRange> </observation> </component> </organizer> </ entry> <entry> <organizer moodCode="EVN" classCode="BATTERY"> < templateId root="2.16.840.1.583832.10..22.4.1" /> <id nullFlavor="NA" /> <code codeSystem="local" code="XOD280" displayName="Ferritin" /> < statusCode code="completed" /> <component> <observation moodCode= "EVN" classCode="OBS"> <templateId root="2.16.840.1.602326.10.20.22.4.2 " /> <id nullFlavor="NA" /> <code codeSystem="local" code= "Jmv682" displayName="Ferritin" /> <statusCode code="completed" /> <effectiveTime value="553884278285" /> <value unit="ng/mL" xsi: type="PQ" value="15.93" /> <referenceRange> < observationRange> <text>4.63-204.00</text> </ observationRange> </referenceRange> </observation> </ component> </organizer> </entry> <entry> <organizer moodCode="EVN" classCode="BATTERY"> <templateId root="216.840.1.475472.10.20.22.4.1" /> <id nullFlavor="NA" /> <code codeSystem="local" code="796241" displayName="Reticulocyte Count" /> <statusCode code="completed" /> < component> <observation moodCode="EVN" classCode="OBS"> < templateId root="216.840.1.252305.10.22.4.2" /> <id nullFlavor="NA " /> <code codeSystem="local" code="423750" displayName="Reticulocyte Count" /> <statusCode code="completed" /> <effectiveTime value ="451368562996" /> <value unit="%" xsi:type="PQ" value="0.9" /> <referenceRange> <observationRange> <text>0.6-2.6 </text> </observationRange> </referenceRange> </ observation> </component> </organizer> </entry> <entry> <organizer moodCode="EVN" classCode="BATTERY"> <templateId root= "216.840.1.100538.10..22.4.1" /> <id nullFlavor="NA" /> <code codeSystem="local" code="WVR750" displayName="Peripheral Smear" /> < statusCode code="completed" /> <component> <observation moodCode= "EVN" classCode="OBS"> <templateId root="2.16.840.1.648480.10..22.4.2 " /> <id nullFlavor="NA" /> <code codeSystem="local" code= "Tyx70487" displayName="Peripheral smear" /> <statusCode code= "completed" /> <effectiveTime value="158963227725" /> <value unit="" xsi:type="PQ" value="Sent to [facility] for review" /> < referenceRange> <observationRange> <text /> < /observationRange> </referenceRange> </observation> </ component> </organizer> </entry> <entry> <organizer moodCode="EVN" classCode="BATTERY"> <templateId root="16.840.1.642973.10..22.4.1" /> <id nullFlavor="NA" /> <code codeSystem="local" code="499940" displayName="Reticulocyte Count" /> <statusCode code="completed" /> < component> <observation moodCode="EVN" classCode="OBS"> < templateId root="10.03.840.1.749478.06.06.22.4.2" /> <id nullFlavor="NA " /> <code codeSystem="local" code="508764" displayName="Reticulocyte Count" /> <statusCode code="completed" /> <effectiveTime value ="391971649082" /> <value unit="%" xsi:type="PQ" value="0.9" /> <referenceRange> <observationRange> <text>0.6-2.6 </text> </observationRange> </referenceRange> </ observation> </component> </organizer> </entry> <entry> <organizer moodCode="EVN" classCode="BATTERY"> <templateId root= "10.03.840.1.491796.10..4.1" /> <id nullFlavor="NA" /> <code codeSystem="local" code="65648-3" displayName="Complete blood count (CBC) with automated white blood cell (WBC) differential" /> <statusCode code= "completed" /> <component> <observation moodCode="EVN" classCode= "OBS"> <templateId root="16.840.1.915287.10...4.2" /> < id nullFlavor="NA" /> <code codeSystem="local" code="6690-2" displayName="Blood leukocytes automated count (number/volume)" /> < statusCode code="completed" /> <effectiveTime value="" /> <value unit="10*3/uL" xsi:type="PQ" value="17.6" /> < interpretationCode codeSystem="local" code="" /> <referenceRange> <observationRange> <text>4.3-11.0</text> </ observationRange> </referenceRange> </observation> </ component> <component> <observation moodCode="EVN" classCode="OBS"> <templateId root="2.16.840.1.967805.10.20.22.4.2" /> <id nullFlavor="NA" /> <code codeSystem="local" code="789-8" displayName= "Blood erythrocytes automated count (number/volume)" /> <statusCode code="completed" /> <effectiveTime value="" /> < value unit="10*6/uL" xsi:type="PQ" value="4.06" /> <interpretationCode codeSystem="local" code="" /> <referenceRange> < observationRange> <text>4.35-5.85</text> </ observationRange> </referenceRange> </observation> </ component> <component> <observation moodCode="EVN" classCode="OBS"> <templateId root="216.840.1.252203.10.20.22.4.2" /> <id nullFlavor="NA" /> <code codeSystem="local" code="56630-6" displayName= "Venous blood hemoglobin measurement (mass/volume)" /> <statusCode code ="completed" /> <effectiveTime value="" /> <value unit="g/dL" xsi:type="PQ" value="10.0" /> <interpretationCode codeSystem="local" code="" /> <referenceRange> < observationRange> <text>11.5-16.0</text> </ observationRange> </referenceRange> </observation> </ component> <component> <observation moodCode="EVN" classCode="OBS"> <templateId root="16.840.1.064214.10.20.22.4.2" /> <id nullFlavor="NA" /> <code codeSystem="local" code="33504-8" displayName= "Blood hematocrit (volume fraction)" /> <statusCode code="completed" / > <effectiveTime value="749965643071" /> <value unit="%" xsi:type="PQ" value="30" /> <interpretationCode codeSystem="local" code ="" /> <referenceRange> <observationRange> < text>35-52</text> </observationRange> </referenceRange> </observation> </component> <component> <observation moodCode="EVN" classCode="OBS"> <templateId root= "10.03.840.1.779247.10..22.4.2" /> <id nullFlavor="NA" /> < code codeSystem="local" code="787-2" displayName="Automated erythrocyte mean corpuscular volume" /> <statusCode code="completed" /> < effectiveTime value="295929033619" /> <value unit="[foz_us]" xsi:type= "PQ" value="74" /> <interpretationCode codeSystem="local" code="" /> <referenceRange> <observationRange> <text>80- 99</text> </observationRange> </referenceRange> </ observation> </component> <component> <observation moodCode= "EVN" classCode="OBS"> <templateId root="10.03.840.1.877062.10.20.22.4.2 " /> <id nullFlavor="NA" /> <code codeSystem="local" code="785 -6" displayName="Automated erythrocyte mean corpuscular hemoglobin (mass per erythrocyte)" /> <statusCode code="completed" /> < effectiveTime value="032441764026" /> <value unit="pg" xsi:type="PQ" value="25" /> <referenceRange> <observationRange> <text>25-34</text> </observationRange> </referenceRange > </observation> </component> <component> <observation moodCode="EVN" classCode="OBS"> <templateId root= "2.16.840.1.384219.10.20.22.4.2" /> <id nullFlavor="NA" /> < code codeSystem="local" code="786-4" displayName="Automated erythrocyte mean corpuscular hemoglobin concentration measurement (mass/volume)" /> < statusCode code="completed" /> <effectiveTime value="961000859076" /> <value unit="g/dL" xsi:type="PQ" value="33" /> <referenceRange > <observationRange> <text>32-36</text> </ observationRange> </referenceRange> </observation> </ component> <component> <observation moodCode="EVN" classCode="OBS"> <templateId root="2.16.840.1.416814.10.20.22.4.2" /> <id nullFlavor="NA" /> <code codeSystem="local" code="788-0" displayName= "Automated erythrocyte distribution width ratio" /> <statusCode code= "completed" /> <effectiveTime value="029303086164" /> <value unit="%" xsi:type="PQ" value="17.5" /> <interpretationCode codeSystem="local" code="" /> <referenceRange> < observationRange> <text>10.0-14.5</text> </ observationRange> </referenceRange> </observation> </ component> <component> <observation moodCode="EVN" classCode="OBS"> <templateId root="216.840.1.562209.10.2022.4.2" /> <id nullFlavor="NA" /> <code codeSystem="local" code="777-3" displayName= "Automated blood platelet count (count/volume)" /> <statusCode code= "completed" /> <effectiveTime value="041797564559" /> <value unit="10*3/uL" xsi:type="PQ" value="526" /> <interpretationCode codeSystem="local" code="" /> <referenceRange> < observationRange> <text>130-400</text> </ observationRange> </referenceRange> </observation> </ component> <component> <observation moodCode="EVN" classCode="OBS"> <templateId root="216.840.1.747228.102022.4.2" /> <id nullFlavor="NA" /> <code codeSystem="local" code="16268-1" displayName= "Automated blood platelet mean volume measurement" /> <statusCode code= "completed" /> <effectiveTime value="351276630736" /> <value unit="[foz_us]" xsi:type="PQ" value="9.2" /> <referenceRange> <observationRange> <text>7.4-10.4</text> </ observationRange> </referenceRange> </observation> </ component> <component> <observation moodCode="EVN" classCode="OBS"> <templateId root="216.840.1.100159.10.20.22.4.2" /> <id nullFlavor="NA" /> <code codeSystem="local" code="770-8" displayName= "Automated blood neutrophils/100 leukocytes" /> <statusCode code= "completed" /> <effectiveTime value="109841410282" /> <value unit="%" xsi:type="PQ" value="76" /> <interpretationCode codeSystem ="local" code="" /> <referenceRange> <observationRange> <text>42-75</text> </observationRange> </ referenceRange> </observation> </component> <component> <observation moodCode="EVN" classCode="OBS"> <templateId root= "2.16.840.1.900452.10.20.22.4.2" /> <id nullFlavor="NA" /> < code codeSystem="local" code="736-9" displayName="Automated blood lymphocytes/ 100 leukocytes" /> <statusCode code="completed" /> < effectiveTime value="023810729257" /> <value unit="%" xsi:type="PQ " value="8" /> <interpretationCode codeSystem="local" code="" /> <referenceRange> <observationRange> <text>12-44</ text> </observationRange> </referenceRange> </ observation> </component> <component> <observation moodCode= "EVN" classCode="OBS"> <templateId root="2.16.840.1.692440.10..22.4.2 " /> <id nullFlavor="NA" /> <code codeSystem="local" code= "64408-8" displayName="Blood monocytes/100 leukocytes" /> <statusCode code="completed" /> <effectiveTime value="765216353821" /> < value unit="%" xsi:type="PQ" value="16" /> <interpretationCode codeSystem="local" code="" /> <referenceRange> < observationRange> <text>0-12</text> </observationRange> </referenceRange> </observation> </component> < component> <observation moodCode="EVN" classCode="OBS"> < templateId root="2.16.840.1.396517.10..22.4.2" /> <id nullFlavor="NA " /> <code codeSystem="local" code="713-8" displayName="Automated blood eosinophils/100 leukocytes" /> <statusCode code="completed" /> <effectiveTime value="647529747628" /> <value unit="%" xsi: type="PQ" value="0" /> <referenceRange> <observationRange> <text>0-10</text> </observationRange> </ referenceRange> </observation> </component> <component> <observation moodCode="EVN" classCode="OBS"> <templateId root= "2.16.840.1.883589.10..4.2" /> <id nullFlavor="NA" /> < code codeSystem="local" code="706-2" displayName="Automated blood basophils/100 leukocytes" /> <statusCode code="completed" /> <effectiveTime value="087659364703" /> <value unit="%" xsi:type="PQ" value="0" /> <referenceRange> <observationRange> <text>0-10 </text> </observationRange> </referenceRange> </ observation> </component> <component> <observation moodCode= "EVN" classCode="OBS"> <templateId root="2.16.840.1.754838.10..22.4.2 " /> <id nullFlavor="NA" /> <code codeSystem="local" code="751 -8" displayName="Blood neutrophils automated count (number/volume)" /> <statusCode code="completed" /> <effectiveTime value="" /> <value unit="10*3" xsi:type="PQ" value="13.4" /> < interpretationCode codeSystem="local" code="" /> <referenceRange> <observationRange> <text>1.8-7.8</text> </ observationRange> </referenceRange> </observation> </ component> <component> <observation moodCode="EVN" classCode="OBS"> <templateId root="216.840.1.715824.10.20.22.4.2" /> <id nullFlavor="NA" /> <code codeSystem="local" code="731-0" displayName= "Blood lymphocytes automated count (number/volume)" /> <statusCode code ="completed" /> <effectiveTime value="521006120017" /> <value unit="10*3" xsi:type="PQ" value="1.3" /> <referenceRange> < observationRange> <text>1.0-4.0</text> </ observationRange> </referenceRange> </observation> </ component> <component> <observation moodCode="EVN" classCode="OBS"> <templateId root="2.16.840.1.085515.10.20.22.4.2" /> <id nullFlavor="NA" /> <code codeSystem="local" code="742-7" displayName= "Blood monocytes automated count (number/volume)" /> <statusCode code= "completed" /> <effectiveTime value="225162455728" /> <value unit="10*3" xsi:type="PQ" value="2.8" /> <interpretationCode codeSystem ="local" code="" /> <referenceRange> <observationRange> <text>0.0-1.0</text> </observationRange> </ referenceRange> </observation> </component> <component> <observation moodCode="EVN" classCode="OBS"> <templateId root= "2.16.840.1.293641.10.20.22.4.2" /> <id nullFlavor="NA" /> < code codeSystem="local" code="711-2" displayName="Automated eosinophil count" / > <statusCode code="completed" /> <effectiveTime value= "" /> <value unit="10*3/uL" xsi:type="PQ" value="0.0" /> <referenceRange> <observationRange> <text>0.0- 0.3</text> </observationRange> </referenceRange> </ observation> </component> <component> <observation moodCode= "EVN" classCode="OBS"> <templateId root="216.840.1.538311.10...4.2 " /> <id nullFlavor="NA" /> <code codeSystem="local" code="704 -7" displayName="Automated blood basophil count (count/volume)" /> < statusCode code="completed" /> <effectiveTime value="" /> <value unit="10*3/uL" xsi:type="PQ" value="0.0" /> < referenceRange> <observationRange> <text>0.0-0.1</text> </observationRange> </referenceRange> </observation > </component> </organizer> </entry> <entry> <organizer moodCode= "EVN" classCode="BATTERY"> <templateId root="2.16.840.1.598315.10..22.4.1 " /> <id nullFlavor="NA" /> <code codeSystem="local" code="05874-5" displayName="Comprehensive metabolic panel" /> <statusCode code="completed " /> <component> <observation moodCode="EVN" classCode="OBS"> <templateId root="2.16.840.1.605034.10.20.22.4.2" /> <id nullFlavor ="NA" /> <code codeSystem="local" code="2951-2" displayName="Serum or plasma sodium measurement (moles/volume)" /> <statusCode code= "completed" /> <effectiveTime value="986161713393" /> <value unit="mmol/L" xsi:type="PQ" value="135" /> <referenceRange> <observationRange> <text>135-145</text> </ observationRange> </referenceRange> </observation> </ component> <component> <observation moodCode="EVN" classCode="OBS"> <templateId root="216.840.1.435735.10..22.4.2" /> <id nullFlavor="NA" /> <code codeSystem="local" code="2823-3" displayName= "Serum or plasma potassium measurement (moles/volume)" /> <statusCode code="completed" /> <effectiveTime value="226726733614" /> < value unit="mmol/L" xsi:type="PQ" value="4.6" /> <referenceRange> <observationRange> <text>3.6-5.0</text> </ observationRange> </referenceRange> </observation> </ component> <component> <observation moodCode="EVN" classCode="OBS"> <templateId root="16.840.1.659035.10.20.22.4.2" /> <id nullFlavor="NA" /> <code codeSystem="local" code="2075-0" displayName= "Serum or plasma chloride measurement (moles/volume)" /> <statusCode code="completed" /> <effectiveTime value="630496598151" /> < value unit="mmol/L" xsi:type="PQ" value="103" /> <referenceRange> <observationRange> <text>98-107</text> </ observationRange> </referenceRange> </observation> </ component> <component> <observation moodCode="EVN" classCode="OBS"> <templateId root="2.16.840.1.705671.10..22.4.2" /> <id nullFlavor="NA" /> <code codeSystem="local" code="2028-04" displayName= "Carbon dioxide" /> <statusCode code="completed" /> < effectiveTime value="893216270707" /> <value unit="mmol/L" xsi:type="PQ " value="15" /> <interpretationCode codeSystem="local" code="" /> <referenceRange> <observationRange> <text>21-32</ text> </observationRange> </referenceRange> </ observation> </component> <component> <observation moodCode= "EVN" classCode="OBS"> <templateId root="10.03.840.1.679222.10...4.2 " /> <id nullFlavor="NA" /> <code codeSystem="local" code= "23050-3" displayName="Serum or plasma anion gap determination (moles/volume)" / > <statusCode code="completed" /> <effectiveTime value= "315314480721" /> <value unit="mmol/L" xsi:type="PQ" value="17" /> <interpretationCode codeSystem="local" code="" /> < referenceRange> <observationRange> <text>5-14</text> </observationRange> </referenceRange> </observation> </component> <component> <observation moodCode="EVN" classCode= "OBS"> <templateId root="216.840.1.702141.10..4.2" /> < id nullFlavor="NA" /> <code codeSystem="local" code="3094-0" displayName="Serum or plasma urea nitrogen measurement (mass/volume)" /> <statusCode code="completed" /> <effectiveTime value="" /> <value unit="mg/dL" xsi:type="PQ" value="50" /> < interpretationCode codeSystem="local" code="" /> <referenceRange> <observationRange> <text>7-18</text> </ observationRange> </referenceRange> </observation> </ component> <component> <observation moodCode="EVN" classCode="OBS"> <templateId root="216.840.1.284377.10.22.4.2" /> <id nullFlavor="NA" /> <code codeSystem="local" code="2160-0" displayName= "Serum or plasma creatinine measurement (mass/volume)" /> <statusCode code="completed" /> <effectiveTime value="" /> < value unit="mg/dL" xsi:type="PQ" value="4.85" /> <interpretationCode codeSystem="local" code="" /> <referenceRange> < observationRange> <text>0.60-1.30</text> </ observationRange> </referenceRange> </observation> </ component> <component> <observation moodCode="EVN" classCode="OBS"> <templateId root="16.840.1.256850.10..22.4.2" /> <id nullFlavor="NA" /> <code codeSystem="local" code="3097-3" displayName= "Serum or plasma urea nitrogen/creatinine mass ratio" /> <statusCode code="completed" /> <effectiveTime value="" /> < value unit="" xsi:type="PQ" value="10" /> <referenceRange> < observationRange> <text>NRG</text> </observationRange> </referenceRange> </observation> </component> < component> <observation moodCode="EVN" classCode="OBS"> < templateId root="216.840.1.753078.10.20.22.4.2" /> <id nullFlavor="NA " /> <code codeSystem="local" code="10406-2" displayName="Serum or plasma creatinine measurement with calculation of estimated glomerular filtration rate" /> <statusCode code="completed" /> < effectiveTime value="086804796529" /> <value unit="" xsi:type="PQ" value="9" /> <referenceRange> <observationRange> <text>NRG</text> </observationRange> </referenceRange> </observation> </component> <component> <observation moodCode="EVN" classCode="OBS"> <templateId root= "10.03.840.1.492433.10.20.22.4.2" /> <id nullFlavor="NA" /> < code codeSystem="local" code="2345-7" displayName="Serum or plasma glucose measurement (mass/volume)" /> <statusCode code="completed" /> <effectiveTime value="325398731720" /> <value unit="mg/dL" xsi:type="PQ " value="111" /> <interpretationCode codeSystem="local" code="" /> <referenceRange> <observationRange> <text>70-105 </text> </observationRange> </referenceRange> </ observation> </component> <component> <observation moodCode= "EVN" classCode="OBS"> <templateId root="16.840.1.840400.10.20.22.4.2 " /> <id nullFlavor="NA" /> <code codeSystem="local" code= "77967-9" displayName="Serum or plasma calcium measurement (mass/volume)" /> <statusCode code="completed" /> <effectiveTime value= "885681978592" /> <value unit="mg/dL" xsi:type="PQ" value="9.8" /> <referenceRange> <observationRange> <text>8.5-10.1 </text> </observationRange> </referenceRange> </ observation> </component> <component> <observation moodCode= "EVN" classCode="OBS"> <templateId root="2.16.840.1.749001.10.20.22.4.2 " /> <id nullFlavor="NA" /> <code codeSystem="local" code= "1974-09" displayName="Serum or plasma total bilirubin measurement (mass/volume) " /> <statusCode code="completed" /> <effectiveTime value= "319453047639" /> <value unit="mg/dL" xsi:type="PQ" value="0.5" /> <referenceRange> <observationRange> <text>0.1-1.0< /text> </observationRange> </referenceRange> </ observation> </component> <component> <observation moodCode= "EVN" classCode="OBS"> <templateId root="2.16.840.1.908487.10.20.22.4.2 " /> <id nullFlavor="NA" /> <code codeSystem="local" code= "6768-6" displayName="Serum or plasma alkaline phosphatase measurement ( enzymatic activity/volume)" /> <statusCode code="completed" /> <effectiveTime value="960127152647" /> <value unit="U/L" xsi:type="PQ " value="81" /> <referenceRange> <observationRange> <text>40-136</text> </observationRange> </ referenceRange> </observation> </component> <component> <observation moodCode="EVN" classCode="OBS"> <templateId root= "2.16.840.1.203293.10.20.22.4.2" /> <id nullFlavor="NA" /> < code codeSystem="local" code="1920-03" displayName="Serum or plasma aspartate aminotransferase measurement (enzymatic activity/volume)" /> < statusCode code="completed" /> <effectiveTime value="954620919362" /> <value unit="U/L" xsi:type="PQ" value="10" /> <referenceRange > <observationRange> <text>5-34</text> </ observationRange> </referenceRange> </observation> </ component> <component> <observation moodCode="EVN" classCode="OBS"> <templateId root="2.16.840.1.531883.10...4.2" /> <id nullFlavor="NA" /> <code codeSystem="local" code="17409-23" displayName= "Serum or plasma alanine aminotransferase measurement (enzymatic activity/volume )" /> <statusCode code="completed" /> <effectiveTime value= "297993172976" /> <value unit="U/L" xsi:type="PQ" value="10" /> <referenceRange> <observationRange> <text>0-55</text > </observationRange> </referenceRange> </observation > </component> <component> <observation moodCode="EVN" classCode="OBS"> <templateId root="2.16.840.1.990319.10..22.4.2" /> <id nullFlavor="NA" /> <code codeSystem="local" code="2885-2" displayName="Serum or plasma protein measurement (mass/volume)" /> < statusCode code="completed" /> <effectiveTime value="245579007997" /> <value unit="g/dL" xsi:type="PQ" value="8.4" /> < interpretationCode codeSystem="local" code="" /> <referenceRange> <observationRange> <text>6.4-8.2</text> </ observationRange> </referenceRange> </observation> </ component> <component> <observation moodCode="EVN" classCode="OBS"> <templateId root="10.03.840.1.428555.10.22.4.2" /> <id nullFlavor="NA" /> <code codeSystem="local" code="1751-7" displayName= "Serum or plasma albumin measurement (mass/volume)" /> <statusCode code ="completed" /> <effectiveTime value="944166641723" /> <value unit="g/dL" xsi:type="PQ" value="4.5" /> <referenceRange> < observationRange> <text>3.2-4.5</text> </ observationRange> </referenceRange> </observation> </ component> </organizer> </entry> <entry> <organizer moodCode="EVN" classCode="BATTERY"> <templateId root="10.03.840.1.178651.10..22.4.1" /> <id nullFlavor="NA" /> <code codeSystem="local" code="89750-5" displayName="Blood manual differential performed detection" /> <statusCode code="completed" /> <component> <observation moodCode="EVN" classCode="OBS"> <templateId root="10.03.840.1.576723.10..22.4.2" /> <id nullFlavor="NA" /> <code codeSystem="local" code="96509-5 " displayName="Blood monocytes/100 leukocytes" /> <statusCode code= "completed" /> <effectiveTime value="228735885572" /> <value unit="%" xsi:type="PQ" value="13" /> <referenceRange> < observationRange> <text>NRG</text> </observationRange> </referenceRange> </observation> </component> < component> <observation moodCode="EVN" classCode="OBS"> < templateId root="2.16.840.1.235769.10.20.22.4.2" /> <id nullFlavor="NA " /> <code codeSystem="local" code="769-0" displayName="Manual blood segmented neutrophils/100 leukocytes" /> <statusCode code="completed" / > <effectiveTime value="056878696307" /> <value unit="%" xsi:type="PQ" value="77" /> <referenceRange> < observationRange> <text>NRG</text> </observationRange> </referenceRange> </observation> </component> < component> <observation moodCode="EVN" classCode="OBS"> < templateId root="216.840.1.809909.10..22.4.2" /> <id nullFlavor="NA " /> <code codeSystem="local" code="36748-7" displayName="Blood band neutrophils/100 leukocytes" /> <statusCode code="completed" /> <effectiveTime value="757061351247" /> <value unit="%" xsi:type= "PQ" value="2" /> <referenceRange> <observationRange> <text>NRG</text> </observationRange> </ referenceRange> </observation> </component> <component> <observation moodCode="EVN" classCode="OBS"> <templateId root= "2.16.840.1.399145.10.20.22.4.2" /> <id nullFlavor="NA" /> < code codeSystem="local" code="737-7" displayName="Manual blood lymphocytes/100 leukocytes" /> <statusCode code="completed" /> <effectiveTime value="992626374103" /> <value unit="%" xsi:type="PQ" value="8" /> <referenceRange> <observationRange> <text>NRG< /text> </observationRange> </referenceRange> </ observation> </component> <component> <observation moodCode= "EVN" classCode="OBS"> <templateId root="2.16.840.1.812464.10.20.22.4.2 " /> <id nullFlavor="NA" /> <code codeSystem="local" code="803 -7" displayName="Blood toxic granules detection by light microscopy" /> <statusCode code="completed" /> <effectiveTime value="253685699352" / > <value unit="" xsi:type="PQ" value="2+" /> <referenceRange> <observationRange> <text>NRG</text> </ observationRange> </referenceRange> </observation> </ component> <component> <observation moodCode="EVN" classCode="OBS"> <templateId root="2.16.840.1.125460.10.20.22.4.2" /> <id nullFlavor="NA" /> <code codeSystem="local" code="741-9" displayName= "Blood microcytes detection by light microscopy" /> <statusCode code= "completed" /> <effectiveTime value="318767943857" /> <value unit="" xsi:type="PQ" value="SLIGHT" /> <referenceRange> < observationRange> <text>NRG</text> </observationRange> </referenceRange> </observation> </component> </ organizer> </entry> <entry> <organizer moodCode="EVN" classCode="BATTERY"> <templateId root="216.840.1.307943.10..22.4.1" /> <id nullFlavor= "NA" /> <code codeSystem="local" code="50678-8" displayName="Blood lactic acid measurement (moles/volume)" /> <statusCode code="completed" /> < component> <observation moodCode="EVN" classCode="OBS"> < templateId root="16.840.1.005002.10...4.2" /> <id nullFlavor="NA " /> <code codeSystem="local" code="27808-7" displayName="Blood lactic acid measurement (moles/volume)" /> <statusCode code="completed" /> <effectiveTime value="815102060114" /> <value unit="mmol/L" xsi: type="PQ" value="1.13" /> <referenceRange> <observationRange > <text>0.50-2.00</text> </observationRange> </ referenceRange> </observation> </component> </organizer> </entry > <entry> <organizer moodCode="EVN" classCode="BATTERY"> <templateId root="216.840.1.467161.10...4.1" /> <id nullFlavor="NA" /> <code codeSystem="local" code="600-7" displayName="Bacterial blood culture" /> < statusCode code="completed" /> <component> <observation moodCode= "EVN" classCode="OBS"> <templateId root="16.840.1.384743.10..22.4.2 " /> <id nullFlavor="NA" /> <code codeSystem="local" code="600 -7" displayName="Bacterial blood culture" /> <statusCode code= "completed" /> <effectiveTime value="191744590725" /> <value unit="" xsi:type="PQ" value="NG" /> <referenceRange> < observationRange> <text>NRG</text> </observationRange> </referenceRange> </observation> </component> </ organizer> </entry> <entry> <organizer moodCode="EVN" classCode="BATTERY"> <templateId root="216.840.1.590184.10..22.4.1" /> <id nullFlavor= "NA" /> <code codeSystem="local" code="05200-2" displayName="Urine drug screening test" /> <statusCode code="completed" /> <component> <observation moodCode="EVN" classCode="OBS"> <templateId root= "216.840.1.922779.10...4.2" /> <id nullFlavor="NA" /> < code codeSystem="local" code="24554-8" displayName="Urine phencyclidine detection by screening method" /> <statusCode code="completed" /> <effectiveTime value="024195691052" /> <value unit="" xsi:type="PQ " value="NEGATIVE" /> <referenceRange> <observationRange> <text>NEGATIVE</text> </observationRange> </ referenceRange> </observation> </component> <component> <observation moodCode="EVN" classCode="OBS"> <templateId root= "216.840.1.934768.10..22.4.2" /> <id nullFlavor="NA" /> < code codeSystem="local" code="68618-5" displayName="Urine benzodiazepines detection by screening method" /> <statusCode code="completed" /> <effectiveTime value="351900584520" /> <value unit="" xsi:type="PQ " value="NEGATIVE" /> <referenceRange> <observationRange> <text>NEGATIVE</text> </observationRange> </ referenceRange> </observation> </component> <component> <observation moodCode="EVN" classCode="OBS"> <templateId root= "216.840.1.722849.10.20.22.4.2" /> <id nullFlavor="NA" /> < code codeSystem="local" code="3397-7" displayName="Urine cocaine detection" /> <statusCode code="completed" /> <effectiveTime value= "701336050540" /> <value unit="" xsi:type="PQ" value="NEGATIVE" /> <referenceRange> <observationRange> <text>NEGATIVE </text> </observationRange> </referenceRange> </ observation> </component> <component> <observation moodCode= "EVN" classCode="OBS"> <templateId root="16.840.1.086081.10.22.4.2 " /> <id nullFlavor="NA" /> <code codeSystem="local" code= "09498-0" displayName="Urine amphetamines detection by screening method" /> <statusCode code="completed" /> <effectiveTime value= "776255012898" /> <value unit="" xsi:type="PQ" value="NEGATIVE" /> <referenceRange> <observationRange> <text>NEGATIVE </text> </observationRange> </referenceRange> </ observation> </component> <component> <observation moodCode= "EVN" classCode="OBS"> <templateId root="16.840.1.690229.10.2022.4.2 " /> <id nullFlavor="NA" /> <code codeSystem="local" code= "49454-4" displayName="Urine methamphetamine detection by screening method" /> <statusCode code="completed" /> <effectiveTime value= "" /> <value unit="" xsi:type="PQ" value="NEGATIVE" /> <referenceRange> <observationRange> <text>NEGATIVE </text> </observationRange> </referenceRange> </ observation> </component> <component> <observation moodCode= "EVN" classCode="OBS"> <templateId root="216.840.1.499831.06.06.22.4.2 " /> <id nullFlavor="NA" /> <code codeSystem="local" code= "00117-0" displayName="Urine cannabinoids detection by screening method" /> <statusCode code="completed" /> <effectiveTime value= "373736217794" /> <value unit="" xsi:type="PQ" value="POSITIVE" /> <interpretationCode codeSystem="local" code="*" /> < referenceRange> <observationRange> <text>NEGATIVE</text > </observationRange> </referenceRange> </observation > </component> <component> <observation moodCode="EVN" classCode="OBS"> <templateId root="216.840.1.516068.06.06.22.4.2" /> <id nullFlavor="NA" /> <code codeSystem="local" code="43068-1 " displayName="Urine opiates detection by screening method" /> < statusCode code="completed" /> <effectiveTime value="323935811129" /> <value unit="" xsi:type="PQ" value="POSITIVE" /> < interpretationCode codeSystem="local" code="*" /> <referenceRange> <observationRange> <text>NEGATIVE</text> </ observationRange> </referenceRange> </observation> </ component> <component> <observation moodCode="EVN" classCode="OBS"> <templateId root="216.840.1.223675.10..22.4.2" /> <id nullFlavor="NA" /> <code codeSystem="local" code="3377-9" displayName= "Urine barbiturates detection" /> <statusCode code="completed" /> <effectiveTime value="" /> <value unit="" xsi:type="PQ " value="NEGATIVE" /> <referenceRange> <observationRange> <text>NEGATIVE</text> </observationRange> </ referenceRange> </observation> </component> <component> <observation moodCode="EVN" classCode="OBS"> <templateId root= "2.16.840.1.776812...4.2" /> <id nullFlavor="NA" /> < code codeSystem="local" code="88748-6" displayName="Screening urine tricyclic antidepressants detection" /> <statusCode code="completed" /> <effectiveTime value="" /> <value unit="" xsi:type="PQ" value="NEGATIVE" /> <referenceRange> <observationRange> <text>NEGATIVE</text> </observationRange> </ referenceRange> </observation> </component> <component> <observation moodCode="EVN" classCode="OBS"> <templateId root= "2.16.840.1.045026.10...4.2" /> <id nullFlavor="NA" /> < code codeSystem="local" code="88579-7" displayName="Urine methadone detection by screening method" /> <statusCode code="completed" /> < effectiveTime value="" /> <value unit="" xsi:type="PQ" value="NEGATIVE" /> <referenceRange> <observationRange> <text>NEGATIVE</text> </observationRange> </ referenceRange> </observation> </component> <component> <observation moodCode="EVN" classCode="OBS"> <templateId root= "16.840.1.334861.10.22.4.2" /> <id nullFlavor="NA" /> < code codeSystem="local" code="18351-4" displayName="Urine oxycodone detection" / > <statusCode code="completed" /> <effectiveTime value= "391562819565" /> <value unit="" xsi:type="PQ" value="NEGATIVE" /> <referenceRange> <observationRange> <text>NEGATIVE </text> </observationRange> </referenceRange> </ observation> </component> <component> <observation moodCode= "EVN" classCode="OBS"> <templateId root="10.03.840.1.565322.10..4.2 " /> <id nullFlavor="NA" /> <code codeSystem="local" code= "70027-4" displayName="Urine propoxyphene detection" /> <statusCode code="completed" /> <effectiveTime value="652005617508" /> < value unit="" xsi:type="PQ" value="NEGATIVE" /> <referenceRange> <observationRange> <text>NEGATIVE</text> </ observationRange> </referenceRange> </observation> </ component> </organizer> </entry> <entry> <organizer moodCode="EVN" classCode="BATTERY"> <templateId root="16.840.1.652819.10..22.4.1" /> <id nullFlavor="NA" /> <code codeSystem="local" code="19273-6" displayName="Complete urinalysis with reflex to culture" /> <statusCode code="completed" /> <component> <observation moodCode="EVN" classCode="OBS"> <templateId root="2.840.1.477017.22.4.2" /> <id nullFlavor="NA" /> <code codeSystem="local" code="5778-6" displayName="Urine color determination" /> <statusCode code="completed " /> <effectiveTime value="" /> <value unit="" xsi :type="PQ" value="YELLOW" /> <referenceRange> < observationRange> <text>NRG</text> </observationRange> </referenceRange> </observation> </component> < component> <observation moodCode="EVN" classCode="OBS"> < templateId root="216.840.1.312172.06.06.22.4.2" /> <id nullFlavor="NA " /> <code codeSystem="local" code="60565-5" displayName="Urine clarity determination" /> <statusCode code="completed" /> < effectiveTime value="" /> <value unit="" xsi:type="PQ" value="CLEAR" /> <referenceRange> <observationRange> <text>NRG</text> </observationRange> </referenceRange > </observation> </component> <component> <observation moodCode="EVN" classCode="OBS"> <templateId root= "2.16.840.1.456741.06.06.22.4.2" /> <id nullFlavor="NA" /> < code codeSystem="local" code="5803-2" displayName="Urine pH measurement by test strip" /> <statusCode code="completed" /> <effectiveTime value ="" /> <value unit="" xsi:type="PQ" value="5" /> < referenceRange> <observationRange> <text>5-9</text> </observationRange> </referenceRange> </observation> </component> <component> <observation moodCode="EVN" classCode= "OBS"> <templateId root="216.840.1.097796.10..4.2" /> < id nullFlavor="NA" /> <code codeSystem="local" code="5811-5" displayName="Specific gravity of urine by test strip" /> <statusCode code="completed" /> <effectiveTime value="" /> < value unit="" xsi:type="PQ" value="1.025" /> <interpretationCode codeSystem="local" code="*" /> <referenceRange> < observationRange> <text>1.016-1.022</text> </ observationRange> </referenceRange> </observation> </ component> <component> <observation moodCode="EVN" classCode="OBS"> <templateId root="10.03.840.1.538638.06.06.22.4.2" /> <id nullFlavor="NA" /> <code codeSystem="local" code="76012-7" displayName= "Urine protein assay by test strip, semi-quantitative" /> <statusCode code="completed" /> <effectiveTime value="" /> < value unit="" xsi:type="PQ" value="2+" /> <interpretationCode codeSystem="local" code="*" /> <referenceRange> < observationRange> <text>NEGATIVE</text> </ observationRange> </referenceRange> </observation> </ component> <component> <observation moodCode="EVN" classCode="OBS"> <templateId root="16.840.1.432406.10..22.4.2" /> <id nullFlavor="NA" /> <code codeSystem="local" code="59349-6" displayName= "Urine glucose detection by automated test strip" /> <statusCode code= "completed" /> <effectiveTime value="" /> <value unit="" xsi:type="PQ" value="NEGATIVE" /> <referenceRange> < observationRange> <text>NEGATIVE</text> </ observationRange> </referenceRange> </observation> </ component> <component> <observation moodCode="EVN" classCode="OBS"> <templateId root="16.840.1.626818.10.22.4.2" /> <id nullFlavor="NA" /> <code codeSystem="local" code="62892-1" displayName= "Erythrocytes detection in urine sediment by light microscopy" /> < statusCode code="completed" /> <effectiveTime value="" /> <value unit="" xsi:type="PQ" value="NEGATIVE" /> < referenceRange> <observationRange> <text>NEGATIVE</text > </observationRange> </referenceRange> </observation > </component> <component> <observation moodCode="EVN" classCode="OBS"> <templateId root="10.03.840.1.302225.10.22.4.2" /> <id nullFlavor="NA" /> <code codeSystem="local" code="99403-1 " displayName="Urine ketones detection by automated test strip" /> < statusCode code="completed" /> <effectiveTime value="" /> <value unit="" xsi:type="PQ" value="NEGATIVE" /> < referenceRange> <observationRange> <text>NEGATIVE</text > </observationRange> </referenceRange> </observation > </component> <component> <observation moodCode="EVN" classCode="OBS"> <templateId root="10.03.840.1.805279.10.2022.4.2" /> <id nullFlavor="NA" /> <code codeSystem="local" code="5802-4" displayName="Urine nitrite detection by test strip" /> <statusCode code ="completed" /> <effectiveTime value="480880896231" /> <value unit="" xsi:type="PQ" value="NEGATIVE" /> <referenceRange> < observationRange> <text>NEGATIVE</text> </ observationRange> </referenceRange> </observation> </ component> <component> <observation moodCode="EVN" classCode="OBS"> <templateId root="2.16.840.1.943322.10.20.22.4.2" /> <id nullFlavor="NA" /> <code codeSystem="local" code="5770-3" displayName= "Urine total bilirubin detection by test strip" /> <statusCode code= "completed" /> <effectiveTime value="237378159728" /> <value unit="" xsi:type="PQ" value="1+" /> <interpretationCode codeSystem= "local" code="*" /> <referenceRange> <observationRange> <text>NEGATIVE</text> </observationRange> </ referenceRange> </observation> </component> <component> <observation moodCode="EVN" classCode="OBS"> <templateId root= "2.16.840.1.710662.10..22.4.2" /> <id nullFlavor="NA" /> < code codeSystem="local" code="93204-8" displayName="Urine urobilinogen measurement by automated test strip (mass/volume)" /> <statusCode code= "completed" /> <effectiveTime value="398810666613" /> <value unit="" xsi:type="PQ" value="NORMAL" /> <referenceRange> < observationRange> <text>NORMAL</text> </observationRange > </referenceRange> </observation> </component> < component> <observation moodCode="EVN" classCode="OBS"> < templateId root="216.840.1.570627.10..22.4.2" /> <id nullFlavor="NA " /> <code codeSystem="local" code="5799-2" displayName="Urine leukocyte esterase detection by dipstick" /> <statusCode code= "completed" /> <effectiveTime value="" /> <value unit="" xsi:type="PQ" value="1+" /> <interpretationCode codeSystem= "local" code="*" /> <referenceRange> <observationRange> <text>NEGATIVE</text> </observationRange> </ referenceRange> </observation> </component> <component> <observation moodCode="EVN" classCode="OBS"> <templateId root= "216.840.1.224890.10..4.2" /> <id nullFlavor="NA" /> < code codeSystem="local" code="47754-6" displayName="Automated urine sediment erythrocyte count by microscopy (number/high power field)" /> < statusCode code="completed" /> <effectiveTime value="" /> <value unit="" xsi:type="PQ" value="NONE" /> <referenceRange> <observationRange> <text>NRG</text> </ observationRange> </referenceRange> </observation> </ component> <component> <observation moodCode="EVN" classCode="OBS"> <templateId root="2.16.840.1.668151.10..22.4.2" /> <id nullFlavor="NA" /> <code codeSystem="local" code="5821-4" displayName= "Automated urine sediment leukocyte count by microscopy (number/high power field )" /> <statusCode code="completed" /> <effectiveTime value= "" /> <value unit="" xsi:type="PQ" value="RARE" /> <referenceRange> <observationRange> <text>NRG</text> </observationRange> </referenceRange> </observation> </component> <component> <observation moodCode="EVN" classCode ="OBS"> <templateId root="216.840.1.513409.10.22.4.2" /> < id nullFlavor="NA" /> <code codeSystem="local" code="60413-9" displayName="Bacteria detection in urine sediment by light microscopy" /> <statusCode code="completed" /> <effectiveTime value=" " /> <value unit="" xsi:type="PQ" value="FEW" /> < interpretationCode codeSystem="local" code="*" /> <referenceRange> <observationRange> <text>NRG</text> </ observationRange> </referenceRange> </observation> </ component> <component> <observation moodCode="EVN" classCode="OBS"> <templateId root="10.03.840.1.313783.06.06.22.4.2" /> <id nullFlavor="NA" /> <code codeSystem="local" code="22614-2" displayName= "Crystals detection in urine sediment by light microscopy" /> < statusCode code="completed" /> <effectiveTime value="" /> <value unit="" xsi:type="PQ" value="NONE" /> <referenceRange> <observationRange> <text>NRG</text> </ observationRange> </referenceRange> </observation> </ component> <component> <observation moodCode="EVN" classCode="OBS"> <templateId root="216.840.1.417141.10.22.4.2" /> <id nullFlavor="NA" /> <code codeSystem="local" code="07672-4" displayName= "Casts detection in urine sediment by light microscopy" /> <statusCode code="completed" /> <effectiveTime value="724897352961" /> < value unit="" xsi:type="PQ" value="NONE" /> <referenceRange> <observationRange> <text>NRG</text> </observationRange > </referenceRange> </observation> </component> < component> <observation moodCode="EVN" classCode="OBS"> < templateId root="2.16.840.1.755346.10.20.22.4.2" /> <id nullFlavor="NA " /> <code codeSystem="local" code="8247-9" displayName="Mucus detection in urine sediment by light microscopy" /> <statusCode code= "completed" /> <effectiveTime value="609567486338" /> <value unit="" xsi:type="PQ" value="LARGE" /> <interpretationCode codeSystem= "local" code="*" /> <referenceRange> <observationRange> <text>NRG</text> </observationRange> </ referenceRange> </observation> </component> <component> <observation moodCode="EVN" classCode="OBS"> <templateId root= "2.16.840.1.065230.10.20.22.4.2" /> <id nullFlavor="NA" /> < code codeSystem="local" code="64316-2" displayName="Complete urinalysis with reflex to culture" /> <statusCode code="completed" /> < effectiveTime value="" /> <value unit="" xsi:type="PQ" value="NO" /> <referenceRange> <observationRange> <text>NRG</text> </observationRange> </referenceRange> </observation> </component> <component> <observation moodCode="EVN" classCode="OBS"> <templateId root= "2.16.840.1.476251.10.20.22.4.2" /> <id nullFlavor="NA" /> < code codeSystem="local" code="8246-1" displayName="Amorphous sediment detection in urine sediment by light microscopy" /> <statusCode code="completed" /> <effectiveTime value="203399144251" /> <value unit="" xsi: type="PQ" value="MOD TRAN URATES" /> <interpretationCode codeSystem= "local" code="*" /> <referenceRange> <observationRange> <text>NRG</text> </observationRange> </ referenceRange> </observation> </component> </organizer> </entry > <entry> <organizer moodCode="EVN" classCode="BATTERY"> <templateId root="2.16.840.1.701538.10.20.22.4.1" /> <id nullFlavor="NA" /> <code codeSystem="local" code="600-7" displayName="Bacterial blood culture" /> < statusCode code="completed" /> <component> <observation moodCode= "EVN" classCode="OBS"> <templateId root="2.16.840.1.220049.10.20.22.4.2 " /> <id nullFlavor="NA" /> <code codeSystem="local" code="600 -7" displayName="Bacterial blood culture" /> <statusCode code= "completed" /> <effectiveTime value="328684643110" /> <value unit="" xsi:type="PQ" value="NG" /> <referenceRange> < observationRange> <text>NRG</text> </observationRange> </referenceRange> </observation> </component> </ organizer> </entry> <entry> <organizer moodCode="EVN" classCode="BATTERY"> <templateId root="10.03.840.1.116986.10..22.4.1" /> <id nullFlavor= "NA" /> <code codeSystem="local" code="82199-6" displayName="Methicillin resistant Staphylococcus aureus (MRSA) screening culture" /> <statusCode code="completed" /> <component> <observation moodCode="EVN" classCode="OBS"> <templateId root="10.03.840.1.551580.10...4.2" /> <id nullFlavor="NA" /> <code codeSystem="local" code="MRSARES " displayName="MRSA SCREEN RESULT" /> <statusCode code="completed" /> <effectiveTime value="532044188193" /> <value unit="" xsi:type ="PQ" value="MRSA ISOLATED" /> <interpretationCode codeSystem="local" code="*" /> <referenceRange> <observationRange> <text>NRG</text> </observationRange> </referenceRange> </observation> </component> </organizer> </entry> <entry> < organizer moodCode="EVN" classCode="BATTERY"> <templateId root= "10.03.840.1.986281.10...4.1" /> <id nullFlavor="NA" /> <code codeSystem="local" code="31731-9" displayName="Capillary blood glucose measurement by glucometer (mass/volume)" /> <statusCode code="completed" / > <component> <observation moodCode="EVN" classCode="OBS"> <templateId root="10.03.840.1.231581.10..22.4.2" /> <id nullFlavor="NA " /> <code codeSystem="local" code="61462-6" displayName="Capillary blood glucose measurement by glucometer (mass/volume)" /> <statusCode code="completed" /> <effectiveTime value="293915819213" /> < value unit="mg/dL" xsi:type="PQ" value="106" /> <referenceRange> <observationRange> <text>70-110</text> </ observationRange> </referenceRange> </observation> </ component> </organizer> </entry> <entry> <organizer moodCode="EVN" classCode="BATTERY"> <templateId root="216.840.1.744081.10.20.22.4.1" /> <id nullFlavor="NA" /> <code codeSystem="local" code="84739-1" displayName="Capillary blood glucose measurement by glucometer (mass/volume)" / > <statusCode code="completed" /> <component> <observation moodCode="EVN" classCode="OBS"> <templateId root= "216.840.1.845672.10.20.22.4.2" /> <id nullFlavor="NA" /> < code codeSystem="local" code="04199-9" displayName="Capillary blood glucose measurement by glucometer (mass/volume)" /> <statusCode code="completed " /> <effectiveTime value="430631998565" /> <value unit="mg/dL " xsi:type="PQ" value="215" /> <interpretationCode codeSystem="local" code="" /> <referenceRange> <observationRange> <text>70-110</text> </observationRange> </referenceRange > </observation> </component> </organizer> </entry> <entry> <organizer moodCode="EVN" classCode="BATTERY"> <templateId root= "216.840.1.053093.10.20.22.4.1" /> <id nullFlavor="NA" /> <code codeSystem="local" code="51909-9" displayName="Complete blood count (CBC) with automated white blood cell (WBC) differential" /> <statusCode code= "completed" /> <component> <observation moodCode="EVN" classCode= "OBS"> <templateId root="2.16.840.1.662154.10..22.4.2" /> < id nullFlavor="NA" /> <code codeSystem="local" code="6690-2" displayName="Blood leukocytes automated count (number/volume)" /> < statusCode code="completed" /> <effectiveTime value="850487037301" /> <value unit="10*3/uL" xsi:type="PQ" value="15.6" /> < interpretationCode codeSystem="local" code="" /> <referenceRange> <observationRange> <text>4.3-11.0</text> </ observationRange> </referenceRange> </observation> </ component> <component> <observation moodCode="EVN" classCode="OBS"> <templateId root="216.840.1.718965.10..22.4.2" /> <id nullFlavor="NA" /> <code codeSystem="local" code="789-8" displayName= "Blood erythrocytes automated count (number/volume)" /> <statusCode code="completed" /> <effectiveTime value="188591074437" /> < value unit="10*6/uL" xsi:type="PQ" value="3.58" /> <interpretationCode codeSystem="local" code="" /> <referenceRange> < observationRange> <text>4.35-5.85</text> </ observationRange> </referenceRange> </observation> </ component> <component> <observation moodCode="EVN" classCode="OBS"> <templateId root="10.03.840.1.860266.10.20.22.4.2" /> <id nullFlavor="NA" /> <code codeSystem="local" code="59914-0" displayName= "Venous blood hemoglobin measurement (mass/volume)" /> <statusCode code ="completed" /> <effectiveTime value="241889531044" /> <value unit="g/dL" xsi:type="PQ" value="8.7" /> <interpretationCode codeSystem ="local" code="" /> <referenceRange> <observationRange> <text>11.5-16.0</text> </observationRange> </ referenceRange> </observation> </component> <component> <observation moodCode="EVN" classCode="OBS"> <templateId root= "10.03.840.1.108292.10..22.4.2" /> <id nullFlavor="NA" /> < code codeSystem="local" code="77246-2" displayName="Blood hematocrit (volume fraction)" /> <statusCode code="completed" /> <effectiveTime value="736077097966" /> <value unit="%" xsi:type="PQ" value="27" / > <interpretationCode codeSystem="local" code="" /> < referenceRange> <observationRange> <text>35-52</text> </observationRange> </referenceRange> </observation> </component> <component> <observation moodCode="EVN" classCode= "OBS"> <templateId root="16.840.1.150515.10.20.22.4.2" /> < id nullFlavor="NA" /> <code codeSystem="local" code="787-2" displayName ="Automated erythrocyte mean corpuscular volume" /> <statusCode code= "completed" /> <effectiveTime value="" /> <value unit="[foz_us]" xsi:type="PQ" value="76" /> <interpretationCode codeSystem="local" code="" /> <referenceRange> < observationRange> <text>80-99</text> </observationRange > </referenceRange> </observation> </component> < component> <observation moodCode="EVN" classCode="OBS"> < templateId root="2.16.840.1.135528.10.20.22.4.2" /> <id nullFlavor="NA " /> <code codeSystem="local" code="785-6" displayName="Automated erythrocyte mean corpuscular hemoglobin (mass per erythrocyte)" /> < statusCode code="completed" /> <effectiveTime value="955434293513" /> <value unit="pg" xsi:type="PQ" value="24" /> < interpretationCode codeSystem="local" code="" /> <referenceRange> <observationRange> <text>25-34</text> </ observationRange> </referenceRange> </observation> </ component> <component> <observation moodCode="EVN" classCode="OBS"> <templateId root="2.16.840.1.200679.10..22.4.2" /> <id nullFlavor="NA" /> <code codeSystem="local" code="786-4" displayName= "Automated erythrocyte mean corpuscular hemoglobin concentration measurement ( mass/volume)" /> <statusCode code="completed" /> < effectiveTime value="711847466038" /> <value unit="g/dL" xsi:type="PQ" value="32" /> <referenceRange> <observationRange> <text>32-36</text> </observationRange> </referenceRange > </observation> </component> <component> <observation moodCode="EVN" classCode="OBS"> <templateId root= "216.840.1.152242.10.22.4.2" /> <id nullFlavor="NA" /> < code codeSystem="local" code="788-0" displayName="Automated erythrocyte distribution width ratio" /> <statusCode code="completed" /> < effectiveTime value="293934311449" /> <value unit="%" xsi:type="PQ " value="17.2" /> <interpretationCode codeSystem="local" code="" /> <referenceRange> <observationRange> <text>10.0- 14.5</text> </observationRange> </referenceRange> </ observation> </component> <component> <observation moodCode= "EVN" classCode="OBS"> <templateId root="216.840.1.306239.22.4.2 " /> <id nullFlavor="NA" /> <code codeSystem="local" code="777 -3" displayName="Automated blood platelet count (count/volume)" /> < statusCode code="completed" /> <effectiveTime value="016851250892" /> <value unit="10*3/uL" xsi:type="PQ" value="444" /> < interpretationCode codeSystem="local" code="" /> <referenceRange> <observationRange> <text>130-400</text> </ observationRange> </referenceRange> </observation> </ component> <component> <observation moodCode="EVN" classCode="OBS"> <templateId root="10.03.840.1.492232.10.2022.4.2" /> <id nullFlavor="NA" /> <code codeSystem="local" code="57572-2" displayName= "Automated blood platelet mean volume measurement" /> <statusCode code= "completed" /> <effectiveTime value="575003985441" /> <value unit="[[facility]]" xsi:type="PQ" value="9.1" /> <referenceRange> <observationRange> <text>7.4-10.4</text> </ observationRange> </referenceRange> </observation> </ component> <component> <observation moodCode="EVN" classCode="OBS"> <templateId root="2.16.840.1.520394.10.2022.4.2" /> <id nullFlavor="NA" /> <code codeSystem="local" code="770-8" displayName= "Automated blood neutrophils/100 leukocytes" /> <statusCode code= "completed" /> <effectiveTime value="828539992274" /> <value unit="%" xsi:type="PQ" value="83" /> <interpretationCode codeSystem ="local" code="" /> <referenceRange> <observationRange> <text>42-75</text> </observationRange> </ referenceRange> </observation> </component> <component> <observation moodCode="EVN" classCode="OBS"> <templateId root= "2.16.840.1.653323.10.20.22.4.2" /> <id nullFlavor="NA" /> < code codeSystem="local" code="736-9" displayName="Automated blood lymphocytes/ 100 leukocytes" /> <statusCode code="completed" /> < effectiveTime value="475782313487" /> <value unit="%" xsi:type="PQ " value="6" /> <interpretationCode codeSystem="local" code="" /> <referenceRange> <observationRange> <text>12-44</ text> </observationRange> </referenceRange> </ observation> </component> <component> <observation moodCode= "EVN" classCode="OBS"> <templateId root="2.16.840.1.801103.10.20.22.4.2 " /> <id nullFlavor="NA" /> <code codeSystem="local" code= "66130-8" displayName="Blood monocytes/100 leukocytes" /> <statusCode code="completed" /> <effectiveTime value="784763258286" /> < value unit="%" xsi:type="PQ" value="10" /> <referenceRange> <observationRange> <text>0-12</text> </ observationRange> </referenceRange> </observation> </ component> <component> <observation moodCode="EVN" classCode="OBS"> <templateId root="216.840.1.173102.10..22.4.2" /> <id nullFlavor="NA" /> <code codeSystem="local" code="713-8" displayName= "Automated blood eosinophils/100 leukocytes" /> <statusCode code= "completed" /> <effectiveTime value="291851782217" /> <value unit="%" xsi:type="PQ" value="0" /> <referenceRange> < observationRange> <text>0-10</text> </observationRange> </referenceRange> </observation> </component> < component> <observation moodCode="EVN" classCode="OBS"> < templateId root="216.840.1.934088.10.20.22.4.2" /> <id nullFlavor="NA " /> <code codeSystem="local" code="706-2" displayName="Automated blood basophils/100 leukocytes" /> <statusCode code="completed" /> <effectiveTime value="163049420695" /> <value unit="%" xsi: type="PQ" value="0" /> <referenceRange> <observationRange> <text>0-10</text> </observationRange> </ referenceRange> </observation> </component> <component> <observation moodCode="EVN" classCode="OBS"> <templateId root= "216.840.1.318091.10.20.22.4.2" /> <id nullFlavor="NA" /> < code codeSystem="local" code="751-8" displayName="Blood neutrophils automated count (number/volume)" /> <statusCode code="completed" /> < effectiveTime value="825401360159" /> <value unit="10*3" xsi:type="PQ" value="13.0" /> <interpretationCode codeSystem="local" code="" /> <referenceRange> <observationRange> <text>1.8-7.8 </text> </observationRange> </referenceRange> </ observation> </component> <component> <observation moodCode= "EVN" classCode="OBS"> <templateId root="216.840.1.581245..22.4.2 " /> <id nullFlavor="NA" /> <code codeSystem="local" code="731 -0" displayName="Blood lymphocytes automated count (number/volume)" /> <statusCode code="completed" /> <effectiveTime value="211807131261" /> <value unit="10*3" xsi:type="PQ" value="1.0" /> < referenceRange> <observationRange> <text>1.0-4.0</text> </observationRange> </referenceRange> </observation > </component> <component> <observation moodCode="EVN" classCode="OBS"> <templateId root="216.840.1.539179.10.20.22.4.2" /> <id nullFlavor="NA" /> <code codeSystem="local" code="742-7" displayName="Blood monocytes automated count (number/volume)" /> < statusCode code="completed" /> <effectiveTime value="" /> <value unit="10*3" xsi:type="PQ" value="1.5" /> < interpretationCode codeSystem="local" code="" /> <referenceRange> <observationRange> <text>0.0-1.0</text> </ observationRange> </referenceRange> </observation> </ component> <component> <observation moodCode="EVN" classCode="OBS"> <templateId root="2.16.840.1.678144.10..4.2" /> <id nullFlavor="NA" /> <code codeSystem="local" code="711-2" displayName= "Automated eosinophil count" /> <statusCode code="completed" /> <effectiveTime value="" /> <value unit="10*3/uL" xsi: type="PQ" value="0.0" /> <referenceRange> <observationRange > <text>0.0-0.3</text> </observationRange> </ referenceRange> </observation> </component> <component> <observation moodCode="EVN" classCode="OBS"> <templateId root= "2.16.840.1.328263.10.22.4.2" /> <id nullFlavor="NA" /> < code codeSystem="local" code="704-7" displayName="Automated blood basophil count (count/volume)" /> <statusCode code="completed" /> < effectiveTime value="" /> <value unit="10*3/uL" xsi:type= "PQ" value="0.0" /> <referenceRange> <observationRange> <text>0.0-0.1</text> </observationRange> </ referenceRange> </observation> </component> </organizer> </entry > <entry> <organizer moodCode="EVN" classCode="BATTERY"> <templateId root="216.840.1.423838.10..22.4.1" /> <id nullFlavor="NA" /> <code codeSystem="local" code="99609-0" displayName="Comprehensive metabolic panel" / > <statusCode code="completed" /> <component> <observation moodCode="EVN" classCode="OBS"> <templateId root= "216.840.1.510020.10..22.4.2" /> <id nullFlavor="NA" /> < code codeSystem="local" code="2951-2" displayName="Serum or plasma sodium measurement (moles/volume)" /> <statusCode code="completed" /> <effectiveTime value="930762814150" /> <value unit="mmol/L" xsi:type= "PQ" value="132" /> <interpretationCode codeSystem="local" code="" / > <referenceRange> <observationRange> <text>135 -145</text> </observationRange> </referenceRange> </ observation> </component> <component> <observation moodCode= "EVN" classCode="OBS"> <templateId root="16.840.1.800256.10..22.4.2 " /> <id nullFlavor="NA" /> <code codeSystem="local" code= "2823-3" displayName="Serum or plasma potassium measurement (moles/volume)" /> <statusCode code="completed" /> <effectiveTime value= "926027012671" /> <value unit="mmol/L" xsi:type="PQ" value="3.9" /> <referenceRange> <observationRange> <text>3.6-5.0 </text> </observationRange> </referenceRange> </ observation> </component> <component> <observation moodCode= "EVN" classCode="OBS"> <templateId root="10.03.840.1.057418.10.20.22.4.2 " /> <id nullFlavor="NA" /> <code codeSystem="local" code= "" displayName="Serum or plasma chloride measurement (moles/volume)" /> <statusCode code="completed" /> <effectiveTime value= "246266848867" /> <value unit="mmol/L" xsi:type="PQ" value="104" /> <referenceRange> <observationRange> <text>98-107< /text> </observationRange> </referenceRange> </ observation> </component> <component> <observation moodCode= "EVN" classCode="OBS"> <templateId root="10.03.840.1.510662.10...4.2 " /> <id nullFlavor="NA" /> <code codeSystem="local" code= "2028-04" displayName="Carbon dioxide" /> <statusCode code="completed" / > <effectiveTime value="514557967760" /> <value unit="mmol/L" xsi:type="PQ" value="18" /> <interpretationCode codeSystem="local" code ="" /> <referenceRange> <observationRange> < text>21-32</text> </observationRange> </referenceRange> </observation> </component> <component> <observation moodCode="EVN" classCode="OBS"> <templateId root= "10.03.840.1.247470.10..22.4.2" /> <id nullFlavor="NA" /> < code codeSystem="local" code="59126-8" displayName="Serum or plasma anion gap determination (moles/volume)" /> <statusCode code="completed" /> <effectiveTime value="943289098418" /> <value unit="mmol/L" xsi: type="PQ" value="10" /> <referenceRange> <observationRange> <text>5-14</text> </observationRange> </ referenceRange> </observation> </component> <component> <observation moodCode="EVN" classCode="OBS"> <templateId root= "2.16.840.1.575026.10.20.22.4.2" /> <id nullFlavor="NA" /> < code codeSystem="local" code="3094-0" displayName="Serum or plasma urea nitrogen measurement (mass/volume)" /> <statusCode code="completed" /> <effectiveTime value="739645836326" /> <value unit="mg/dL" xsi:type="PQ" value="29" /> <interpretationCode codeSystem="local" code ="" /> <referenceRange> <observationRange> < text>7-18</text> </observationRange> </referenceRange> </observation> </component> <component> <observation moodCode="EVN" classCode="OBS"> <templateId root= "2.16.840.1.570789.10.20.22.4.2" /> <id nullFlavor="NA" /> < code codeSystem="local" code="2160-0" displayName="Serum or plasma creatinine measurement (mass/volume)" /> <statusCode code="completed" /> <effectiveTime value="962663831857" /> <value unit="mg/dL" xsi:type="PQ " value="1.49" /> <interpretationCode codeSystem="local" code="" /> <referenceRange> <observationRange> <text>0.60- 1.30</text> </observationRange> </referenceRange> </ observation> </component> <component> <observation moodCode= "EVN" classCode="OBS"> <templateId root="2.16.840.1.613013.10..22.4.2 " /> <id nullFlavor="NA" /> <code codeSystem="local" code= "3097-3" displayName="Serum or plasma urea nitrogen/creatinine mass ratio" /> <statusCode code="completed" /> <effectiveTime value= "637264309231" /> <value unit="" xsi:type="PQ" value="19" /> < referenceRange> <observationRange> <text>NRG</text> </observationRange> </referenceRange> </observation> </component> <component> <observation moodCode="EVN" classCode= "OBS"> <templateId root="216.840.1.873926.10..4.2" /> < id nullFlavor="NA" /> <code codeSystem="local" code="72926-4" displayName="Serum or plasma creatinine measurement with calculation of estimated glomerular filtration rate" /> <statusCode code="completed" / > <effectiveTime value="141825625894" /> <value unit="" xsi: type="PQ" value="36" /> <referenceRange> <observationRange> <text>NRG</text> </observationRange> </ referenceRange> </observation> </component> <component> <observation moodCode="EVN" classCode="OBS"> <templateId root= "2.16.840.1.970855.10..22.4.2" /> <id nullFlavor="NA" /> < code codeSystem="local" code="2345-7" displayName="Serum or plasma glucose measurement (mass/volume)" /> <statusCode code="completed" /> <effectiveTime value="179603807734" /> <value unit="mg/dL" xsi:type="PQ " value="134" /> <interpretationCode codeSystem="local" code="" /> <referenceRange> <observationRange> <text>70-105 </text> </observationRange> </referenceRange> </ observation> </component> <component> <observation moodCode= "EVN" classCode="OBS"> <templateId root="216.840.1.606479.10.20.22.4.2 " /> <id nullFlavor="NA" /> <code codeSystem="local" code= "34334-2" displayName="Serum or plasma calcium measurement (mass/volume)" /> <statusCode code="completed" /> <effectiveTime value= "896630097833" /> <value unit="mg/dL" xsi:type="PQ" value="8.7" /> <referenceRange> <observationRange> <text>8.5-10.1 </text> </observationRange> </referenceRange> </ observation> </component> <component> <observation moodCode= "EVN" classCode="OBS"> <templateId root="216.840.1.801569.10.20.22.4.2 " /> <id nullFlavor="NA" /> <code codeSystem="local" code= "1974-09" displayName="Serum or plasma total bilirubin measurement (mass/volume) " /> <statusCode code="completed" /> <effectiveTime value= "001567594970" /> <value unit="mg/dL" xsi:type="PQ" value="0.4" /> <referenceRange> <observationRange> <text>0.1-1.0< /text> </observationRange> </referenceRange> </ observation> </component> <component> <observation moodCode= "EVN" classCode="OBS"> <templateId root="16.840.1.927261.10.20.22.4.2 " /> <id nullFlavor="NA" /> <code codeSystem="local" code= "6768-6" displayName="Serum or plasma alkaline phosphatase measurement ( enzymatic activity/volume)" /> <statusCode code="completed" /> <effectiveTime value="054957719529" /> <value unit="U/L" xsi:type="PQ " value="88" /> <referenceRange> <observationRange> <text>40-136</text> </observationRange> </ referenceRange> </observation> </component> <component> <observation moodCode="EVN" classCode="OBS"> <templateId root= "216.840.1.572659.10.20.22.4.2" /> <id nullFlavor="NA" /> < code codeSystem="local" code="192" displayName="Serum or plasma aspartate aminotransferase measurement (enzymatic activity/volume)" /> < statusCode code="completed" /> <effectiveTime value="035664104827" /> <value unit="U/L" xsi:type="PQ" value="11" /> <referenceRange > <observationRange> <text>5-34</text> </ observationRange> </referenceRange> </observation> </ component> <component> <observation moodCode="EVN" classCode="OBS"> <templateId root="16.840.1.679444.10.20.22.4.2" /> <id nullFlavor="NA" /> <code codeSystem="local" code="17409-23" displayName= "Serum or plasma alanine aminotransferase measurement (enzymatic activity/volume )" /> <statusCode code="completed" /> <effectiveTime value= "622500310179" /> <value unit="U/L" xsi:type="PQ" value="8" /> <referenceRange> <observationRange> <text>0-55</text> </observationRange> </referenceRange> </observation > </component> <component> <observation moodCode="EVN" classCode="OBS"> <templateId root="216.840.1.809473.10.20.22.4.2" /> <id nullFlavor="NA" /> <code codeSystem="local" code="2885-2" displayName="Serum or plasma protein measurement (mass/volume)" /> < statusCode code="completed" /> <effectiveTime value="176343693162" /> <value unit="g/dL" xsi:type="PQ" value="6.7" /> < referenceRange> <observationRange> <text>6.4-8.2</text> </observationRange> </referenceRange> </observation > </component> <component> <observation moodCode="EVN" classCode="OBS"> <templateId root="16.840.1.111834.10.20.22.4.2" /> <id nullFlavor="NA" /> <code codeSystem="local" code="1751-7" displayName="Serum or plasma albumin measurement (mass/volume)" /> < statusCode code="completed" /> <effectiveTime value="664877686500" /> <value unit="g/dL" xsi:type="PQ" value="3.5" /> < referenceRange> <observationRange> <text>3.2-4.5</text> </observationRange> </referenceRange> </observation > </component> </organizer> </entry> <entry> <organizer moodCode= "EVN" classCode="BATTERY"> <templateId root="2.16.840.1.619322.10.20.22.4.1 " /> <id nullFlavor="NA" /> <code codeSystem="local" code="68621-7" displayName="PT panel in platelet poor plasma by coagulation assay" /> < statusCode code="completed" /> <component> <observation moodCode= "EVN" classCode="OBS"> <templateId root="16.840.1.649200.10.20.22.4.2 " /> <id nullFlavor="NA" /> <code codeSystem="local" code= "5902-2" displayName="Prothrombin time (PT) in platelet poor plasma by coagulation assay" /> <statusCode code="completed" /> < effectiveTime value="772438930758" /> <value unit="s" xsi:type="PQ" value="14.2" /> <referenceRange> <observationRange> <text>12.2-14.7</text> </observationRange> </ referenceRange> </observation> </component> <component> <observation moodCode="EVN" classCode="OBS"> <templateId root= "16.840.1.668345.10..22.4.2" /> <id nullFlavor="NA" /> < code codeSystem="local" code="54810-1" displayName="INR in platelet poor plasma or blood by coagulation assay" /> <statusCode code="completed" /> <effectiveTime value="277005300746" /> <value unit="" xsi:type="PQ " value="1.1" /> <referenceRange> <observationRange> <text>0.8-1.4</text> </observationRange> </ referenceRange> </observation> </component> </organizer> </entry > <entry> <organizer moodCode="EVN" classCode="BATTERY"> <templateId root="216.840.1.553557.10.20.22.4.1" /> <id nullFlavor="NA" /> <code codeSystem="local" code="2777-" displayName="Serum or plasma phosphate measurement (mass/volume)" /> <statusCode code="completed" /> < component> <observation moodCode="EVN" classCode="OBS"> < templateId root="216.840.1.017279.10..4.2" /> <id nullFlavor="NA " /> <code codeSystem="local" code="27702-15" displayName="Serum or plasma phosphate measurement (mass/volume)" /> <statusCode code= "completed" /> <effectiveTime value="" /> <value unit="mg/dL" xsi:type="PQ" value="2.0" /> <interpretationCode codeSystem="local" code="" /> <referenceRange> < observationRange> <text>2.3-4.7</text> </ observationRange> </referenceRange> </observation> </ component> </organizer> </entry> <entry> <organizer moodCode="EVN" classCode="BATTERY"> <templateId root="16.840.1.060176.10.4.1" /> <id nullFlavor="NA" /> <code codeSystem="local" code="" displayName="Magnesium" /> <statusCode code="completed" /> <component > <observation moodCode="EVN" classCode="OBS"> <templateId root= "16.840.1.974504.10..4.2" /> <id nullFlavor="NA" /> < code codeSystem="local" code="" displayName="Magnesium" /> < statusCode code="completed" /> <effectiveTime value="619180493245" /> <value unit="mg/dL" xsi:type="PQ" value="1.8" /> < referenceRange> <observationRange> <text>1.8-2.4</text> </observationRange> </referenceRange> </observation > </component> </organizer> </entry> <entry> <organizer moodCode= "EVN" classCode="BATTERY"> <templateId root="216.840.1.865981.10.20.22.4.1 " /> <id nullFlavor="NA" /> <code codeSystem="local" code="79931-9" displayName="Capillary blood glucose measurement by glucometer (mass/volume)" / > <statusCode code="completed" /> <component> <observation moodCode="EVN" classCode="OBS"> <templateId root= "216.840.1.510812.10.20.22.4.2" /> <id nullFlavor="NA" /> < code codeSystem="local" code="33617-3" displayName="Capillary blood glucose measurement by glucometer (mass/volume)" /> <statusCode code="completed " /> <effectiveTime value="945112526347" /> <value unit="mg/dL " xsi:type="PQ" value="156" /> <interpretationCode codeSystem="local" code="" /> <referenceRange> <observationRange> <text>70-110</text> </observationRange> </referenceRange > </observation> </component> </organizer> </entry> <entry> <organizer moodCode="EVN" classCode="BATTERY"> <templateId root= "216.840.1.023922.10.20.22.4.1" /> <id nullFlavor="NA" /> <code codeSystem="local" code="16787-5" displayName="Capillary blood glucose measurement by glucometer (mass/volume)" /> <statusCode code="completed" / > <component> <observation moodCode="EVN" classCode="OBS"> <templateId root="2.16.840.1.779472.10.20.22.4.2" /> <id nullFlavor="NA " /> <code codeSystem="local" code="67124-9" displayName="Capillary blood glucose measurement by glucometer (mass/volume)" /> <statusCode code="completed" /> <effectiveTime value="292064300408" /> < value unit="mg/dL" xsi:type="PQ" value="128" /> <interpretationCode codeSystem="local" code="" /> <referenceRange> < observationRange> <text>70-110</text> </observationRange > </referenceRange> </observation> </component> </ organizer> </entry> <entry> <organizer moodCode="EVN" classCode="BATTERY"> <templateId root="2.16.840.1.949219.10.20.22.4.1" /> <id nullFlavor= "NA" /> <code codeSystem="local" code="12591-6" displayName="Capillary blood glucose measurement by glucometer (mass/volume)" /> <statusCode code= "completed" /> <component> <observation moodCode="EVN" classCode= "OBS"> <templateId root="2.16.840.1.517894.10.20.22.4.2" /> < id nullFlavor="NA" /> <code codeSystem="local" code="38398-2" displayName="Capillary blood glucose measurement by glucometer (mass/volume)" / > <statusCode code="completed" /> <effectiveTime value= "163063459670" /> <value unit="mg/dL" xsi:type="PQ" value="290" /> <interpretationCode codeSystem="local" code="" /> < referenceRange> <observationRange> <text>70-110</text> </observationRange> </referenceRange> </observation> </component> </organizer> </entry> <entry> <organizer moodCode= "EVN" classCode="BATTERY"> <templateId root="216.840.1.332343.10..22.4.1 " /> <id nullFlavor="NA" /> <code codeSystem="local" code="67234-1" displayName="Capillary blood glucose measurement by glucometer (mass/volume)" / > <statusCode code="completed" /> <component> <observation moodCode="EVN" classCode="OBS"> <templateId root= "216.840.1.794811.10...4.2" /> <id nullFlavor="NA" /> < code codeSystem="local" code="41758-4" displayName="Capillary blood glucose measurement by glucometer (mass/volume)" /> <statusCode code="completed " /> <effectiveTime value="199601912931" /> <value unit="mg/dL " xsi:type="PQ" value="272" /> <interpretationCode codeSystem="local" code="" /> <referenceRange> <observationRange> <text>70-110</text> </observationRange> </referenceRange > </observation> </component> </organizer> </entry> <entry> <organizer moodCode="EVN" classCode="BATTERY"> <templateId root= "216.840.1.096488.10...4.1" /> <id nullFlavor="NA" /> <code codeSystem="local" code="27361-3" displayName="Complete blood count (CBC) with automated white blood cell (WBC) differential" /> <statusCode code= "completed" /> <component> <observation moodCode="EVN" classCode= "OBS"> <templateId root="216.840.1.753799.06.06.22.4.2" /> < id nullFlavor="NA" /> <code codeSystem="local" code="6690-2" displayName="Blood leukocytes automated count (number/volume)" /> < statusCode code="completed" /> <effectiveTime value="335351639168" /> <value unit="10*3/uL" xsi:type="PQ" value="13.9" /> < interpretationCode codeSystem="local" code="" /> <referenceRange> <observationRange> <text>4.3-11.0</text> </ observationRange> </referenceRange> </observation> </ component> <component> <observation moodCode="EVN" classCode="OBS"> <templateId root="216.840.1.713738.10..4.2" /> <id nullFlavor="NA" /> <code codeSystem="local" code="789-8" displayName= "Blood erythrocytes automated count (number/volume)" /> <statusCode code="completed" /> <effectiveTime value="381407737737" /> < value unit="10*6/uL" xsi:type="PQ" value="3.58" /> <interpretationCode codeSystem="local" code="" /> <referenceRange> < observationRange> <text>4.35-5.85</text> </ observationRange> </referenceRange> </observation> </ component> <component> <observation moodCode="EVN" classCode="OBS"> <templateId root="10.03.840.1.308642.10..22.4.2" /> <id nullFlavor="NA" /> <code codeSystem="local" code="10212-4" displayName= "Venous blood hemoglobin measurement (mass/volume)" /> <statusCode code ="completed" /> <effectiveTime value="826505761049" /> <value unit="g/dL" xsi:type="PQ" value="8.9" /> <interpretationCode codeSystem ="local" code="" /> <referenceRange> <observationRange> <text>11.5-16.0</text> </observationRange> </ referenceRange> </observation> </component> <component> <observation moodCode="EVN" classCode="OBS"> <templateId root= "216.840.1.357254.10.20.22.4.2" /> <id nullFlavor="NA" /> < code codeSystem="local" code="20375-4" displayName="Blood hematocrit (volume fraction)" /> <statusCode code="completed" /> <effectiveTime value="762436029594" /> <value unit="%" xsi:type="PQ" value="27" / > <interpretationCode codeSystem="local" code="" /> < referenceRange> <observationRange> <text>35-52</text> </observationRange> </referenceRange> </observation> </component> <component> <observation moodCode="EVN" classCode= "OBS"> <templateId root="216.840.1.699809.10.20.22.4.2" /> < id nullFlavor="NA" /> <code codeSystem="local" code="787-2" displayName ="Automated erythrocyte mean corpuscular volume" /> <statusCode code= "completed" /> <effectiveTime value="920980055182" /> <value unit="[fo_us]" xsi:type="PQ" value="75" /> <interpretationCode codeSystem="local" code="" /> <referenceRange> < observationRange> <text>80-99</text> </observationRange > </referenceRange> </observation> </component> < component> <observation moodCode="EVN" classCode="OBS"> < templateId root="2.16.840.1.447327.10.20.22.4.2" /> <id nullFlavor="NA " /> <code codeSystem="local" code="785-6" displayName="Automated erythrocyte mean corpuscular hemoglobin (mass per erythrocyte)" /> < statusCode code="completed" /> <effectiveTime value="917976914343" /> <value unit="pg" xsi:type="PQ" value="25" /> <referenceRange> <observationRange> <text>25-34</text> </ observationRange> </referenceRange> </observation> </ component> <component> <observation moodCode="EVN" classCode="OBS"> <templateId root="2.16.840.1.617743.10..22.4.2" /> <id nullFlavor="NA" /> <code codeSystem="local" code="786-4" displayName= "Automated erythrocyte mean corpuscular hemoglobin concentration measurement ( mass/volume)" /> <statusCode code="completed" /> < effectiveTime value="494189858895" /> <value unit="g/dL" xsi:type="PQ" value="33" /> <referenceRange> <observationRange> <text>32-36</text> </observationRange> </referenceRange > </observation> </component> <component> <observation moodCode="EVN" classCode="OBS"> <templateId root= "2.16.840.1.983238.10.20.22.4.2" /> <id nullFlavor="NA" /> < code codeSystem="local" code="788-0" displayName="Automated erythrocyte distribution width ratio" /> <statusCode code="completed" /> < effectiveTime value="553484007172" /> <value unit="%" xsi:type="PQ " value="17.4" /> <interpretationCode codeSystem="local" code="" /> <referenceRange> <observationRange> <text>10.0- 14.5</text> </observationRange> </referenceRange> </ observation> </component> <component> <observation moodCode= "EVN" classCode="OBS"> <templateId root="216.840.1.574387.10.2022.4.2 " /> <id nullFlavor="NA" /> <code codeSystem="local" code="777 -3" displayName="Automated blood platelet count (count/volume)" /> < statusCode code="completed" /> <effectiveTime value="643761501613" /> <value unit="10*3/uL" xsi:type="PQ" value="477" /> < interpretationCode codeSystem="local" code="" /> <referenceRange> <observationRange> <text>130-400</text> </ observationRange> </referenceRange> </observation> </ component> <component> <observation moodCode="EVN" classCode="OBS"> <templateId root="2.16.840.1.605311.102022.4.2" /> <id nullFlavor="NA" /> <code codeSystem="local" code="62354-1" displayName= "Automated blood platelet mean volume measurement" /> <statusCode code= "completed" /> <effectiveTime value="651247297733" /> <value unit="[foz_us]" xsi:type="PQ" value="8.9" /> <referenceRange> <observationRange> <text>7.4-10.4</text> </ observationRange> </referenceRange> </observation> </ component> <component> <observation moodCode="EVN" classCode="OBS"> <templateId root="2.16.840.1.931924.10..22.4.2" /> <id nullFlavor="NA" /> <code codeSystem="local" code="770-8" displayName= "Automated blood neutrophils/100 leukocytes" /> <statusCode code= "completed" /> <effectiveTime value="512091521197" /> <value unit="%" xsi:type="PQ" value="88" /> <interpretationCode codeSystem ="local" code="" /> <referenceRange> <observationRange> <text>42-75</text> </observationRange> </ referenceRange> </observation> </component> <component> <observation moodCode="EVN" classCode="OBS"> <templateId root= "216.840.1.434394.10...4.2" /> <id nullFlavor="NA" /> < code codeSystem="local" code="736-9" displayName="Automated blood lymphocytes/ 100 leukocytes" /> <statusCode code="completed" /> < effectiveTime value="085075223820" /> <value unit="%" xsi:type="PQ " value="4" /> <interpretationCode codeSystem="local" code="" /> <referenceRange> <observationRange> <text>12-44</ text> </observationRange> </referenceRange> </ observation> </component> <component> <observation moodCode= "EVN" classCode="OBS"> <templateId root="2.16.840.1.161966.10.20.22.4.2 " /> <id nullFlavor="NA" /> <code codeSystem="local" code= "38450-4" displayName="Blood monocytes/100 leukocytes" /> <statusCode code="completed" /> <effectiveTime value="160481962420" /> < value unit="%" xsi:type="PQ" value="7" /> <referenceRange> <observationRange> <text>0-12</text> </ observationRange> </referenceRange> </observation> </ component> <component> <observation moodCode="EVN" classCode="OBS"> <templateId root="2.16.840.1.957840.10.20.22.4.2" /> <id nullFlavor="NA" /> <code codeSystem="local" code="713-8" displayName= "Automated blood eosinophils/100 leukocytes" /> <statusCode code= "completed" /> <effectiveTime value="462005366834" /> <value unit="%" xsi:type="PQ" value="1" /> <referenceRange> < observationRange> <text>0-10</text> </observationRange> </referenceRange> </observation> </component> < component> <observation moodCode="EVN" classCode="OBS"> < templateId root="2.16.840.1.345687.10..22.4.2" /> <id nullFlavor="NA " /> <code codeSystem="local" code="706-2" displayName="Automated blood basophils/100 leukocytes" /> <statusCode code="completed" /> <effectiveTime value="046810166666" /> <value unit="%" xsi: type="PQ" value="0" /> <referenceRange> <observationRange> <text>0-10</text> </observationRange> </ referenceRange> </observation> </component> <component> <observation moodCode="EVN" classCode="OBS"> <templateId root= "2.16.840.1.887648.10.20.22.4.2" /> <id nullFlavor="NA" /> < code codeSystem="local" code="751-8" displayName="Blood neutrophils automated count (number/volume)" /> <statusCode code="completed" /> < effectiveTime value="" /> <value unit="10*3" xsi:type="PQ" value="12.2" /> <interpretationCode codeSystem="local" code="" /> <referenceRange> <observationRange> <text>1.8-7.8 </text> </observationRange> </referenceRange> </ observation> </component> <component> <observation moodCode= "EVN" classCode="OBS"> <templateId root="2.16.840.1.239924.10.22.4.2 " /> <id nullFlavor="NA" /> <code codeSystem="local" code="731 -0" displayName="Blood lymphocytes automated count (number/volume)" /> <statusCode code="completed" /> <effectiveTime value="" /> <value unit="10*3" xsi:type="PQ" value="0.6" /> < interpretationCode codeSystem="local" code="" /> <referenceRange> <observationRange> <text>1.0-4.0</text> </ observationRange> </referenceRange> </observation> </ component> <component> <observation moodCode="EVN" classCode="OBS"> <templateId root="216.840.1.109671.10.2022.4.2" /> <id nullFlavor="NA" /> <code codeSystem="local" code="742-7" displayName= "Blood monocytes automated count (number/volume)" /> <statusCode code= "completed" /> <effectiveTime value="" /> <value unit="10*3" xsi:type="PQ" value="1.0" /> <referenceRange> < observationRange> <text>0.0-1.0</text> </ observationRange> </referenceRange> </observation> </ component> <component> <observation moodCode="EVN" classCode="OBS"> <templateId root="216.840.1.007524.10.20.22.4.2" /> <id nullFlavor="NA" /> <code codeSystem="local" code="711-2" displayName= "Automated eosinophil count" /> <statusCode code="completed" /> <effectiveTime value="743433787560" /> <value unit="10*3/uL" xsi: type="PQ" value="0.1" /> <referenceRange> <observationRange > <text>0.0-0.3</text> </observationRange> </ referenceRange> </observation> </component> <component> <observation moodCode="EVN" classCode="OBS"> <templateId root= "16.840.1.798305.10...4.2" /> <id nullFlavor="NA" /> < code codeSystem="local" code="704-7" displayName="Automated blood basophil count (count/volume)" /> <statusCode code="completed" /> < effectiveTime value="754641642244" /> <value unit="10*3/uL" xsi:type= "PQ" value="0.0" /> <referenceRange> <observationRange> <text>0.0-0.1</text> </observationRange> </ referenceRange> </observation> </component> </organizer> </entry > <entry> <organizer moodCode="EVN" classCode="BATTERY"> <templateId root="216.840.1.381013.10..22.4.1" /> <id nullFlavor="NA" /> <code codeSystem="local" code="13689-4" displayName="Comprehensive metabolic panel" / > <statusCode code="completed" /> <component> <observation moodCode="EVN" classCode="OBS"> <templateId root= "216.840.1.288095.10..22.4.2" /> <id nullFlavor="NA" /> < code codeSystem="local" code="2951-2" displayName="Serum or plasma sodium measurement (moles/volume)" /> <statusCode code="completed" /> <effectiveTime value="185685834923" /> <value unit="mmol/L" xsi:type= "PQ" value="128" /> <interpretationCode codeSystem="local" code="" / > <referenceRange> <observationRange> <text>135 -145</text> </observationRange> </referenceRange> </ observation> </component> <component> <observation moodCode= "EVN" classCode="OBS"> <templateId root="16.840.1.448381.10.22.4.2 " /> <id nullFlavor="NA" /> <code codeSystem="local" code= "2823-3" displayName="Serum or plasma potassium measurement (moles/volume)" /> <statusCode code="completed" /> <effectiveTime value= "839543675832" /> <value unit="mmol/L" xsi:type="PQ" value="3.5" /> <interpretationCode codeSystem="local" code="" /> < referenceRange> <observationRange> <text>3.6-5.0</text> </observationRange> </referenceRange> </observation > </component> <component> <observation moodCode="EVN" classCode="OBS"> <templateId root="16.840.1.769213.10.20.22.4.2" /> <id nullFlavor="NA" /> <code codeSystem="local" code="" displayName="Serum or plasma chloride measurement (moles/volume)" /> < statusCode code="completed" /> <effectiveTime value="" /> <value unit="mmol/L" xsi:type="PQ" value="96" /> < interpretationCode codeSystem="local" code="" /> <referenceRange> <observationRange> <text>98-107</text> </ observationRange> </referenceRange> </observation> </ component> <component> <observation moodCode="EVN" classCode="OBS"> <templateId root="2.16.840.1.371691.10..22.4.2" /> <id nullFlavor="NA" /> <code codeSystem="local" code="2028-04" displayName= "Carbon dioxide" /> <statusCode code="completed" /> < effectiveTime value="" /> <value unit="mmol/L" xsi:type="PQ " value="20" /> <interpretationCode codeSystem="local" code="" /> <referenceRange> <observationRange> <text>21-32</ text> </observationRange> </referenceRange> </ observation> </component> <component> <observation moodCode= "EVN" classCode="OBS"> <templateId root="2.16.840.1.551943.10..22.4.2 " /> <id nullFlavor="NA" /> <code codeSystem="local" code= "14726-4" displayName="Serum or plasma anion gap determination (moles/volume)" / > <statusCode code="completed" /> <effectiveTime value= "" /> <value unit="mmol/L" xsi:type="PQ" value="12" /> <referenceRange> <observationRange> <text>5-14</ text> </observationRange> </referenceRange> </ observation> </component> <component> <observation moodCode= "EVN" classCode="OBS"> <templateId root="216.840.1.216971.10.20.22.4.2 " /> <id nullFlavor="NA" /> <code codeSystem="local" code= "3094-0" displayName="Serum or plasma urea nitrogen measurement (mass/volume)" / > <statusCode code="completed" /> <effectiveTime value= "970349679865" /> <value unit="mg/dL" xsi:type="PQ" value="11" /> <referenceRange> <observationRange> <text>7-18</ text> </observationRange> </referenceRange> </ observation> </component> <component> <observation moodCode= "EVN" classCode="OBS"> <templateId root="216.840.1.785546.10..22.4.2 " /> <id nullFlavor="NA" /> <code codeSystem="local" code= "2160-0" displayName="Serum or plasma creatinine measurement (mass/volume)" /> <statusCode code="completed" /> <effectiveTime value= "530316800139" /> <value unit="mg/dL" xsi:type="PQ" value="0.86" /> <referenceRange> <observationRange> <text>0.60- 1.30</text> </observationRange> </referenceRange> </ observation> </component> <component> <observation moodCode= "EVN" classCode="OBS"> <templateId root="216.840.1.598041.10.20.22.4.2 " /> <id nullFlavor="NA" /> <code codeSystem="local" code= "3097-3" displayName="Serum or plasma urea nitrogen/creatinine mass ratio" /> <statusCode code="completed" /> <effectiveTime value= "148945671715" /> <value unit="" xsi:type="PQ" value="13" /> < referenceRange> <observationRange> <text>NRG</text> </observationRange> </referenceRange> </observation> </component> <component> <observation moodCode="EVN" classCode= "OBS"> <templateId root="2.16.840.1.372811.10.20.22.4.2" /> < id nullFlavor="NA" /> <code codeSystem="local" code="79127-3" displayName="Serum or plasma creatinine measurement with calculation of estimated glomerular filtration rate" /> <statusCode code="completed" / > <effectiveTime value="012495951247" /> <value unit="" xsi: type="PQ" value=">" /> <referenceRange> <observationRange > <text>NRG</text> </observationRange> </ referenceRange> </observation> </component> <component> <observation moodCode="EVN" classCode="OBS"> <templateId root= "2.16.840.1.869063.10.20.22.4.2" /> <id nullFlavor="NA" /> < code codeSystem="local" code="2345-7" displayName="Serum or plasma glucose measurement (mass/volume)" /> <statusCode code="completed" /> <effectiveTime value="331344130936" /> <value unit="mg/dL" xsi:type="PQ " value="232" /> <interpretationCode codeSystem="local" code="" /> <referenceRange> <observationRange> <text>70-105 </text> </observationRange> </referenceRange> </ observation> </component> <component> <observation moodCode= "EVN" classCode="OBS"> <templateId root="216.840.1.712913.10.20.22.4.2 " /> <id nullFlavor="NA" /> <code codeSystem="local" code= "21255-7" displayName="Serum or plasma calcium measurement (mass/volume)" /> <statusCode code="completed" /> <effectiveTime value= "093283390487" /> <value unit="mg/dL" xsi:type="PQ" value="9.2" /> <referenceRange> <observationRange> <text>8.5-10.1 </text> </observationRange> </referenceRange> </ observation> </component> <component> <observation moodCode= "EVN" classCode="OBS"> <templateId root="16.840.1.377618.10..22.4.2 " /> <id nullFlavor="NA" /> <code codeSystem="local" code= "1974-09" displayName="Serum or plasma total bilirubin measurement (mass/volume) " /> <statusCode code="completed" /> <effectiveTime value= "387140327677" /> <value unit="mg/dL" xsi:type="PQ" value="0.4" /> <referenceRange> <observationRange> <text>0.1-1.0< /text> </observationRange> </referenceRange> </ observation> </component> <component> <observation moodCode= "EVN" classCode="OBS"> <templateId root="16.840.1.141994.10.20.22.4.2 " /> <id nullFlavor="NA" /> <code codeSystem="local" code= "6768-6" displayName="Serum or plasma alkaline phosphatase measurement ( enzymatic activity/volume)" /> <statusCode code="completed" /> <effectiveTime value="584782454849" /> <value unit="U/L" xsi:type="PQ " value="97" /> <referenceRange> <observationRange> <text>40-136</text> </observationRange> </ referenceRange> </observation> </component> <component> <observation moodCode="EVN" classCode="OBS"> <templateId root= "2.16.840.1.824002.10.20.22.4.2" /> <id nullFlavor="NA" /> < code codeSystem="local" code="1920-03" displayName="Serum or plasma aspartate aminotransferase measurement (enzymatic activity/volume)" /> < statusCode code="completed" /> <effectiveTime value="754651508827" /> <value unit="U/L" xsi:type="PQ" value="13" /> <referenceRange > <observationRange> <text>5-34</text> </ observationRange> </referenceRange> </observation> </ component> <component> <observation moodCode="EVN" classCode="OBS"> <templateId root="216.840.1.519072.10..22.4.2" /> <id nullFlavor="NA" /> <code codeSystem="local" code="1742-01" displayName= "Serum or plasma alanine aminotransferase measurement (enzymatic activity/volume )" /> <statusCode code="completed" /> <effectiveTime value= "263097906104" /> <value unit="U/L" xsi:type="PQ" value="13" /> <referenceRange> <observationRange> <text>0-55</text > </observationRange> </referenceRange> </observation > </component> <component> <observation moodCode="EVN" classCode="OBS"> <templateId root="216.840.1.936251.10.20.22.4.2" /> <id nullFlavor="NA" /> <code codeSystem="local" code="2885-2" displayName="Serum or plasma protein measurement (mass/volume)" /> < statusCode code="completed" /> <effectiveTime value="263344550269" /> <value unit="g/dL" xsi:type="PQ" value="7.5" /> < referenceRange> <observationRange> <text>6.4-8.2</text> </observationRange> </referenceRange> </observation > </component> <component> <observation moodCode="EVN" classCode="OBS"> <templateId root="216.840.1.586747.10.22.4.2" /> <id nullFlavor="NA" /> <code codeSystem="local" code="1751-7" displayName="Serum or plasma albumin measurement (mass/volume)" /> < statusCode code="completed" /> <effectiveTime value="051881542814" /> <value unit="g/dL" xsi:type="PQ" value="3.8" /> < referenceRange> <observationRange> <text>3.2-4.5</text> </observationRange> </referenceRange> </observation > </component> </organizer> </entry> <entry> <organizer moodCode= "EVN" classCode="BATTERY"> <templateId root="16.840.1.104049.10.2022.4.1 " /> <id nullFlavor="NA" /> <code codeSystem="local" code="2777-1" displayName="Serum or plasma phosphate measurement (mass/volume)" /> < statusCode code="completed" /> <component> <observation moodCode= "EVN" classCode="OBS"> <templateId root="216.840.1.506966.10.20.22.4.2 " /> <id nullFlavor="NA" /> <code codeSystem="local" code= "2777-1" displayName="Serum or plasma phosphate measurement (mass/volume)" /> <statusCode code="completed" /> <effectiveTime value= "835264002159" /> <value unit="mg/dL" xsi:type="PQ" value="1.5" /> <interpretationCode codeSystem="local" code="" /> < referenceRange> <observationRange> <text>2.3-4.7</text> </observationRange> </referenceRange> </observation > </component> </organizer> </entry> <entry> <organizer moodCode= "EVN" classCode="BATTERY"> <templateId root="2.16.840.1.409475.10..22.4.1 " /> <id nullFlavor="NA" /> <code codeSystem="local" code="" displayName="Magnesium" /> <statusCode code="completed" /> <component > <observation moodCode="EVN" classCode="OBS"> <templateId root= "2.16.840.1.402057.10...4.2" /> <id nullFlavor="NA" /> < code codeSystem="local" code="64440-8" displayName="Magnesium" /> < statusCode code="completed" /> <effectiveTime value="957961162635" /> <value unit="mg/dL" xsi:type="PQ" value="1.7" /> < interpretationCode codeSystem="local" code="" /> <referenceRange> <observationRange> <text>1.8-2.4</text> </ observationRange> </referenceRange> </observation> </ component> </organizer> </entry> <entry> <organizer moodCode="EVN" classCode="BATTERY"> <templateId root="2.16.840.1.869735.10..22.4.1" /> <id nullFlavor="NA" /> <code codeSystem="local" code="19665-8" displayName="Serum or plasma lithium measurement (moles/volume)" /> < statusCode code="completed" /> <component> <observation moodCode= "EVN" classCode="OBS"> <templateId root="216.840.1.017682.10...4.2 " /> <id nullFlavor="NA" /> <code codeSystem="local" code= "38906-8" displayName="BNP level" /> <statusCode code="completed" /> <effectiveTime value="149089792996" /> <value unit="pg/mL" xsi: type="PQ" value="556.4" /> <interpretationCode codeSystem="local" code= "" /> <referenceRange> <observationRange> < text><100.0</text> </observationRange> </referenceRange> </observation> </component> </organizer> </entry> <entry> < organizer moodCode="EVN" classCode="BATTERY"> <templateId root= "216.840.1.143537.10..22.4.1" /> <id nullFlavor="NA" /> <code codeSystem="local" code="97773-2" displayName="Capillary blood glucose measurement by glucometer (mass/volume)" /> <statusCode code="completed" / > <component> <observation moodCode="EVN" classCode="OBS"> <templateId root="216.840.1.541930.10..22.4.2" /> <id nullFlavor="NA " /> <code codeSystem="local" code="21748-7" displayName="Capillary blood glucose measurement by glucometer (mass/volume)" /> <statusCode code="completed" /> <effectiveTime value="966704434540" /> < value unit="mg/dL" xsi:type="PQ" value="158" /> <interpretationCode codeSystem="local" code="" /> <referenceRange> < observationRange> <text>70-110</text> </observationRange > </referenceRange> </observation> </component> </ organizer> </entry> <entry> <organizer moodCode="EVN" classCode="BATTERY"> <templateId root="16.840.1.735348.10..22.4.1" /> <id nullFlavor= "NA" /> <code codeSystem="local" code="ORD3" displayName="Comprehensive Metabolic Panel" /> <statusCode code="completed" /> <component> <observation moodCode="EVN" classCode="OBS"> <templateId root= "16.840.1.669488.06.06.22.4.2" /> <id nullFlavor="NA" /> < code codeSystem="local" code="Res44" displayName="Albumin" /> < statusCode code="completed" /> <effectiveTime value="" /> <value unit="g/dL" xsi:type="PQ" value="4.1" /> < referenceRange> <observationRange> <text>3.6-5.1</text> </observationRange> </referenceRange> </observation > </component> <component> <observation moodCode="EVN" classCode="OBS"> <templateId root="10.03.840.1.782257.10..22.4.2" /> <id nullFlavor="NA" /> <code codeSystem="local" code="Res45" displayName="ALP" /> <statusCode code="completed" /> < effectiveTime value="[id number]" /> <value unit="U/L" xsi:type="PQ" value="95" /> <referenceRange> <observationRange> <text>35-130</text> </observationRange> </referenceRange > </observation> </component> <component> <observation moodCode="EVN" classCode="OBS"> <templateId root= "216.840.1.578903.10..22.4.2" /> <id nullFlavor="NA" /> < code codeSystem="local" code="Res46" displayName="ALT" /> <statusCode code="completed" /> <effectiveTime value="" /> < value unit="U/L" xsi:type="PQ" value="10" /> <referenceRange> <observationRange> <text>6-45</text> </ observationRange> </referenceRange> </observation> </ component> <component> <observation moodCode="EVN" classCode="OBS"> <templateId root="10.03.840.1.457307.10...4.2" /> <id nullFlavor="NA" /> <code codeSystem="local" code="Res61" displayName= "Anion Gap" /> <statusCode code="completed" /> <effectiveTime value="" /> <value unit="" xsi:type="PQ" value="16" /> <interpretationCode codeSystem="local" code="H" /> < referenceRange> <observationRange> <text>6-14</text> </observationRange> </referenceRange> </observation> </component> <component> <observation moodCode="EVN" classCode= "OBS"> <templateId root="16.840.1.886620.10.20.22.4.2" /> < id nullFlavor="NA" /> <code codeSystem="local" code="Res48" displayName ="AST" /> <statusCode code="completed" /> <effectiveTime value ="" /> <value unit="U/L" xsi:type="PQ" value="12" /> <referenceRange> <observationRange> <text>2-40</text > </observationRange> </referenceRange> </observation > </component> <component> <observation moodCode="EVN" classCode="OBS"> <templateId root="16.840.1.580837.10.22.4.2" /> <id nullFlavor="NA" /> <code codeSystem="local" code="Res26" displayName="BUN" /> <statusCode code="completed" /> < effectiveTime value="" /> <value unit="mg/dL" xsi:type="PQ " value="13" /> <referenceRange> <observationRange> <text>5-25</text> </observationRange> </referenceRange > </observation> </component> <component> <observation moodCode="EVN" classCode="OBS"> <templateId root= "10.03.840.1.319132...4.2" /> <id nullFlavor="NA" /> < code codeSystem="local" code="Res5" displayName="Calcium" /> < statusCode code="completed" /> <effectiveTime value="" /> <value unit="mg/dL" xsi:type="PQ" value="9.8" /> < referenceRange> <observationRange> <text>8.3-10.4</text > </observationRange> </referenceRange> </observation > </component> <component> <observation moodCode="EVN" classCode="OBS"> <templateId root="10.03.840.1.292860.10.4.2" /> <id nullFlavor="NA" /> <code codeSystem="local" code="Res21" displayName="Chloride" /> <statusCode code="completed" /> < effectiveTime value="" /> <value unit="mmol/L" xsi:type="PQ " value="100" /> <referenceRange> <observationRange> <text>95-114</text> </observationRange> </ referenceRange> </observation> </component> <component> <observation moodCode="EVN" classCode="OBS"> <templateId root= "2.16.840.1.640039.06.06.22.4.2" /> <id nullFlavor="NA" /> < code codeSystem="local" code="Res49" displayName="CO2" /> <statusCode code="completed" /> <effectiveTime value="" /> < value unit="mEq/L" xsi:type="PQ" value="22" /> <referenceRange> <observationRange> <text>22-33</text> </ observationRange> </referenceRange> </observation> </ component> <component> <observation moodCode="EVN" classCode="OBS"> <templateId root="2.16.840.1.424784.10...4.2" /> <id nullFlavor="NA" /> <code codeSystem="local" code="Prr135" displayName= "Creat" /> <statusCode code="completed" /> <effectiveTime value="" /> <value unit="mg/dL" xsi:type="PQ" value="0.79" /> <referenceRange> <observationRange> <text> 0.50-1.50</text> </observationRange> </referenceRange> </observation> </component> <component> <observation moodCode="EVN" classCode="OBS"> <templateId root= "16.840.1.325446.10.20.22.4.2" /> <id nullFlavor="NA" /> < code codeSystem="local" code="Ivk949" displayName="eGFR" /> < statusCode code="completed" /> <effectiveTime value="" /> <value unit="mL/min/1.73m2" xsi:type="PQ" value="76" /> < referenceRange> <observationRange> <text>>59</text> </observationRange> </referenceRange> </observation> </component> <component> <observation moodCode="EVN" classCode ="OBS"> <templateId root="16.840.1.652457.10.22.4.2" /> < id nullFlavor="NA" /> <code codeSystem="local" code="Res7" displayName= "Globulin" /> <statusCode code="completed" /> <effectiveTime value="" /> <value unit="g/dL" xsi:type="PQ" value="3.5" / > <referenceRange> <observationRange> <text>2.3 -3.5</text> </observationRange> </referenceRange> </ observation> </component> <component> <observation moodCode= "EVN" classCode="OBS"> <templateId root="10.03.840.1.376855.10.20.22.4.2 " /> <id nullFlavor="NA" /> <code codeSystem="local" code= "Res60" displayName="Glucose" /> <statusCode code="completed" /> <effectiveTime value="" /> <value unit="mg/dL" xsi:type ="PQ" value="104" /> <referenceRange> <observationRange> <text>70-110</text> </observationRange> </ referenceRange> </observation> </component> <component> <observation moodCode="EVN" classCode="OBS"> <templateId root= "216.840.1.512774.10..4.2" /> <id nullFlavor="NA" /> < code codeSystem="local" code="Res52" displayName="Osmo" /> <statusCode code="completed" /> <effectiveTime value="" /> < value unit="" xsi:type="PQ" value="278" /> <interpretationCode codeSystem="local" code="L" /> <referenceRange> < observationRange> <text>280-295</text> </ observationRange> </referenceRange> </observation> </ component> <component> <observation moodCode="EVN" classCode="OBS"> <templateId root="216.840.1.022422.06.06.22.4.2" /> <id nullFlavor="NA" /> <code codeSystem="local" code="Res20" displayName= "Potassium" /> <statusCode code="completed" /> <effectiveTime value="" /> <value unit="mmol/L" xsi:type="PQ" value="4.4" /> <referenceRange> <observationRange> <text> 3.5-5.3</text> </observationRange> </referenceRange> </observation> </component> <component> <observation moodCode= "EVN" classCode="OBS"> <templateId root="216.840.1.134424.06.06.22.4.2 " /> <id nullFlavor="NA" /> <code codeSystem="local" code= "Res19" displayName="Sodium" /> <statusCode code="completed" /> <effectiveTime value="" /> <value unit="mmol/L" xsi:type ="PQ" value="134" /> <referenceRange> <observationRange> <text>134-148</text> </observationRange> </ referenceRange> </observation> </component> <component> <observation moodCode="EVN" classCode="OBS"> <templateId root= "216.840.1.015591.10.20.22.4.2" /> <id nullFlavor="NA" /> < code codeSystem="local" code="Res51" displayName="TBil" /> <statusCode code="completed" /> <effectiveTime value="" /> < value unit="mg/dL" xsi:type="PQ" value="< 0.2" /> <referenceRange> <observationRange> <text /> </ observationRange> </referenceRange> </observation> </ component> <component> <observation moodCode="EVN" classCode="OBS"> <templateId root="10.03.840.1.654617.10..22.4.2" /> <id nullFlavor="NA" /> <code codeSystem="local" code="Res24" displayName= "TP" /> <statusCode code="completed" /> <effectiveTime value= "" /> <value unit="g/dL" xsi:type="PQ" value="7.6" /> <referenceRange> <observationRange> <text>6.0-8.3</ text> </observationRange> </referenceRange> </ observation> </component> </organizer> </entry> <entry> <organizer moodCode="EVN" classCode="BATTERY"> <templateId root= "16.840.1.325412.10.20.22.4.1" /> <id nullFlavor="NA" /> <code codeSystem="local" code="664-3" displayName="Gram stain microscopy" /> < statusCode code="completed" /> <component> <observation moodCode= "EVN" classCode="OBS"> <templateId root="216.840.1.044914.10..22.4.2 " /> <id nullFlavor="NA" /> <code codeSystem="local" code="664 -3" displayName="Gram stain microscopy" /> <statusCode code="completed " /> <effectiveTime value="" /> <value unit="" xsi :type="PQ" value="Few Gram positive cocci in clusters" /> < referenceRange> <observationRange> <text>NRG</text> </observationRange> </referenceRange> </observation> </component> </organizer> </entry> <entry> <organizer moodCode="EVN" classCode="BATTERY"> <templateId root="216.840.1.469187.10..22.4.1" /> <id nullFlavor="NA" /> <code codeSystem="local" code="6462-6" displayName="Bacteria identification in wound by culture" /> <statusCode code="completed" /> <component> <observation moodCode="EVN" classCode="OBS"> <templateId root="216.840.1.342952.10..22.4.2" /> <id nullFlavor="NA" /> <code codeSystem="local" code="6462-6" displayName="Bacteria identification in wound by culture" /> < statusCode code="completed" /> <effectiveTime value="" /> <value unit="" xsi:type="PQ" value="SEE COMMEN" /> < referenceRange> <observationRange> <text>NRG</text> </observationRange> </referenceRange> </observation> </component> <component> <observation moodCode="EVN" classCode= "OBS"> <templateId root="216.840.1.198382.10..22.4.2" /> < id nullFlavor="NA" /> <code codeSystem="local" code="FTEXTERNAL" displayName="FREE TEXT EXTERNAL" /> <statusCode code="completed" /> <effectiveTime value="" /> <value unit="" xsi:type= "PQ" value="MRSA ISOLATED" /> <referenceRange> < observationRange> <text>NRG</text> </observationRange> </referenceRange> </observation> </component> < component> <observation moodCode="EVN" classCode="OBS"> < templateId root="216.840.1.967034.10...4.2" /> <id nullFlavor="NA " /> <code codeSystem="local" code="G" displayName="QUANTITY OF GROWTH " /> <statusCode code="completed" /> <effectiveTime value= "" /> <value unit="" xsi:type="PQ" value="." /> < referenceRange> <observationRange> <text>NRG</text> </observationRange> </referenceRange> </observation> </component> <component> <observation moodCode="EVN" classCode= "OBS"> <templateId root="216.840.1.014964.10..22.4.2" /> < id nullFlavor="NA" /> <code codeSystem="local" code="FTX2" displayName= "FREE TEXT ENTRY 2" /> <statusCode code="completed" /> < effectiveTime value="" /> <value unit="" xsi:type="PQ" value="RML SENSITIVTY REPORTED 04/21/18 10:05" /> <referenceRange> <observationRange> <text>NRG</text> </ observationRange> </referenceRange> </observation> </ component> <component> <observation moodCode="EVN" classCode="OBS"> <templateId root="10.03.840.1.710017.10..22.4.2" /> <id nullFlavor="NA" /> <code codeSystem="local" code="CDCALL" displayName= "CALL POSITIVES (F1 HELP)" /> <statusCode code="completed" /> <effectiveTime value="" /> <value unit="" xsi:type="PQ" value="CALLED TO [facility] / DR COLLAZO OFFICE 04/21 11:00" /> < referenceRange> <observationRange> <text>NRG</text> </observationRange> </referenceRange> </observation> </component> </organizer> </entry> <entry> <organizer moodCode="EVN" classCode="BATTERY"> <templateId root="10.03.840.1.146272.10..22.4.1" /> <id nullFlavor="NA" /> <code codeSystem="local" code="RML-SENS" displayName="RML Sensitivity Panel" /> <statusCode code="completed" /> <component> <observation moodCode="EVN" classCode="OBS"> < templateId root="10.03.840.1.448055.10..22.4.2" /> <id nullFlavor="NA " /> <code codeSystem="local" code="383-0" displayName="Oxacillin susceptibility test by minimum inhibitory concentration" /> < statusCode code="completed" /> <effectiveTime value="" /> <value unit="" xsi:type="PQ" value="R" /> <interpretationCode codeSystem="local" code="*" /> <referenceRange> < observationRange> <text>NRG</text> </observationRange> </referenceRange> </observation> </component> < component> <observation moodCode="EVN" classCode="OBS"> < templateId root="10.03.840.1.354622.10.20.22.4.2" /> <id nullFlavor="NA " /> <code codeSystem="local" code="193-3" displayName="Clindamycin susceptibility test by minimum inhibitory concentration" /> < statusCode code="completed" /> <effectiveTime value="" /> <value unit="" xsi:type="PQ" value="<=" /> < interpretationCode codeSystem="local" code="*" /> <referenceRange> <observationRange> <text>NRG</text> </ observationRange> </referenceRange> </observation> </ component> <component> <observation moodCode="EVN" classCode="OBS"> <templateId root="10.03.840.1.658014.10...4.2" /> <id nullFlavor="NA" /> <code codeSystem="local" code="233-7" displayName= "Erythromycin susceptibility test by minimum inhibitory concentration" /> <statusCode code="completed" /> <effectiveTime value=" " /> <value unit="" xsi:type="PQ" value=">" /> < interpretationCode codeSystem="local" code="*" /> <referenceRange> <observationRange> <text>NRG</text> </ observationRange> </referenceRange> </observation> </ component> <component> <observation moodCode="EVN" classCode="OBS"> <templateId root="10.03.840.1.724233.10.20.22.4.2" /> <id nullFlavor="NA" /> <code codeSystem="local" code="516-5" displayName= "Trimethoprim/sulfamethoxazole susceptibility test by minimum inhibitoryconcentration" /> <statusCode code="completed" /> < effectiveTime value="" /> <value unit="" xsi:type="PQ" value="S" /> <interpretationCode codeSystem="local" code="*" /> <referenceRange> <observationRange> <text>NRG</text> </observationRange> </referenceRange> </observation > </component> <component> <observation moodCode="EVN" classCode="OBS"> <templateId root="2.16.840.1.976157.10...4.2" /> <id nullFlavor="NA" /> <code codeSystem="local" code="524-9" displayName="Vancomycin susceptibility test by minimum inhibitory concentration " /> <statusCode code="completed" /> <effectiveTime value= "" /> <value unit="" xsi:type="PQ" value="1" /> < interpretationCode codeSystem="local" code="*" /> <referenceRange> <observationRange> <text>NRG</text> </ observationRange> </referenceRange> </observation> </ component> <component> <observation moodCode="EVN" classCode="OBS"> <templateId root="2.16.840.1.514542.10..4.2" /> <id nullFlavor="NA" /> <code codeSystem="local" code="36359-6" displayName= "Levofloxacin susceptibility test by minimum inhibitory concentration" /> <statusCode code="completed" /> <effectiveTime value=" " /> <value unit="" xsi:type="PQ" value="4" /> < interpretationCode codeSystem="local" code="*" /> <referenceRange> <observationRange> <text>NRG</text> </ observationRange> </referenceRange> </observation> </ component> <component> <observation moodCode="EVN" classCode="OBS"> <templateId root="840.1.446173.1022.4.2" /> <id nullFlavor="NA" /> <code codeSystem="local" code="428-3" displayName= "Rifampin susceptibility test by minimum inhibitory concentration" /> < statusCode code="completed" /> <effectiveTime value="" /> <value unit="" xsi:type="PQ" value="<=" /> < interpretationCode codeSystem="local" code="*" /> <referenceRange> <observationRange> <text>NRG</text> </ observationRange> </referenceRange> </observation> </ component> <component> <observation moodCode="EVN" classCode="OBS"> <templateId root="10.03.840.1.403695.10.4.2" /> <id nullFlavor="NA" /> <code codeSystem="local" code="76-0" displayName= "Cefazolin susceptibility test by minimum inhibitory concentration" /> <statusCode code="completed" /> <effectiveTime value="" /> <value unit="" xsi:type="PQ" value=">" /> < interpretationCode codeSystem="local" code="*" /> <referenceRange> <observationRange> <text>NRG</text> </ observationRange> </referenceRange> </observation> </ component> <component> <observation moodCode="EVN" classCode="OBS"> <templateId root="10.03.840.1.039668.10.2022.4.2" /> <id nullFlavor="NA" /> <code codeSystem="local" code="36645-8" displayName= "Linezolid susceptibility test by minimum inhibitory concentration" /> <statusCode code="completed" /> <effectiveTime value="" /> <value unit="" xsi:type="PQ" value="<=" /> < interpretationCode codeSystem="local" code="*" /> <referenceRange> <observationRange> <text>NRG</text> </ observationRange> </referenceRange> </observation> </ component> <component> <observation moodCode="EVN" classCode="OBS"> <templateId root="2.16.840.1.147048.10..22.4.2" /> <id nullFlavor="NA" /> <code codeSystem="local" code="392-1" displayName= "Penicillin G susceptibility test by minimum inhibitory concentration" /> <statusCode code="completed" /> <effectiveTime value=" " /> <value unit="" xsi:type="PQ" value=">" /> < interpretationCode codeSystem="local" code="*" /> <referenceRange> <observationRange> <text>NRG</text> </ observationRange> </referenceRange> </observation> </ component> <component> <observation moodCode="EVN" classCode="OBS"> <templateId root="216.840.1.785090.10..22.4.2" /> <id nullFlavor="NA" /> <code codeSystem="local" code="20114-9" displayName= "Moxifloxacin susceptibility test by minimum inhibitory concentration" /> <statusCode code="completed" /> <effectiveTime value=" " /> <value unit="" xsi:type="PQ" value="S" /> < interpretationCode codeSystem="local" code="*" /> <referenceRange> <observationRange> <text>NRG</text> </ observationRange> </referenceRange> </observation> </ component> <component> <observation moodCode="EVN" classCode="OBS"> <templateId root="2.16.840.1.665148.10.20.22.4.2" /> <id nullFlavor="NA" /> <code codeSystem="local" code="335-0" displayName= "[facility]" /> <statusCode code="completed" /> < effectiveTime value="[id number]" /> <value unit="" xsi:type="PQ" value="<=" /> <interpretationCode codeSystem="local" code="*" /> <referenceRange> <observationRange> <text>NRG</ text> </observationRange> </referenceRange> </ observation> </component> </organizer> </entry> <entry> <organizer moodCode="EVN" classCode="BATTERY"> <templateId root= "2.16.840.1.498404.10..22.4.1" /> <id nullFlavor="NA" /> <code codeSystem="local" code="61923-5" displayName="Comprehensive metabolic panel" / > <statusCode code="completed" /> <component> <observation moodCode="EVN" classCode="OBS"> <templateId root= "2.16.840.1.370132.10..22.4.2" /> <id nullFlavor="NA" /> < code codeSystem="local" code="2951-2" displayName="Serum or plasma sodium measurement (moles/volume)" /> <statusCode code="completed" /> <effectiveTime value="424141573576" /> <value unit="mmol/L" xsi:type= "PQ" value="135" /> <referenceRange> <observationRange> <text>135-145</text> </observationRange> </ referenceRange> </observation> </component> <component> <observation moodCode="EVN" classCode="OBS"> <templateId root= "2.16.840.1.824246.10.20.22.4.2" /> <id nullFlavor="NA" /> < code codeSystem="local" code="28210-18" displayName="Serum or plasma potassium measurement (moles/volume)" /> <statusCode code="completed" /> <effectiveTime value="" /> <value unit="mmol/L" xsi:type= "PQ" value="3.8" /> <referenceRange> <observationRange> <text>3.6-5.0</text> </observationRange> </ referenceRange> </observation> </component> <component> <observation moodCode="EVN" classCode="OBS"> <templateId root= "16.840.1.144972.10.22.4.2" /> <id nullFlavor="NA" /> < code codeSystem="local" code="" displayName="Serum or plasma chloride measurement (moles/volume)" /> <statusCode code="completed" /> <effectiveTime value="" /> <value unit="mmol/L" xsi:type= "PQ" value="105" /> <referenceRange> <observationRange> <text>98-107</text> </observationRange> </ referenceRange> </observation> </component> <component> <observation moodCode="EVN" classCode="OBS"> <templateId root= "2.16.840.1.457865.10.20.22.4.2" /> <id nullFlavor="NA" /> < code codeSystem="local" code="2028-04" displayName="Carbon dioxide" /> < statusCode code="completed" /> <effectiveTime value="[id number]" /> <value unit="mmol/L" xsi:type="PQ" value="18" /> < interpretationCode codeSystem="local" code="" /> <referenceRange> <observationRange> <text>21-32</text> </ observationRange> </referenceRange> </observation> </ component> <component> <observation moodCode="EVN" classCode="OBS"> <templateId root="2.16.840.1.237051.10.20.22.4.2" /> <id nullFlavor="NA" /> <code codeSystem="local" code="10656-3" displayName= "Serum or plasma anion gap determination (moles/volume)" /> < statusCode code="completed" /> <effectiveTime value="" /> <value unit="mmol/L" xsi:type="PQ" value="12" /> < referenceRange> <observationRange> <text>5-14</text> </observationRange> </referenceRange> </observation> </component> <component> <observation moodCode="EVN" classCode= "OBS"> <templateId root="2.16.840.1.310181.10.20.22.4.2" /> < id nullFlavor="NA" /> <code codeSystem="local" code="3094-0" displayName="Serum or plasma urea nitrogen measurement (mass/volume)" /> <statusCode code="completed" /> <effectiveTime value="" /> <value unit="mg/dL" xsi:type="PQ" value="19" /> < interpretationCode codeSystem="local" code="" /> <referenceRange> <observationRange> <text>7-18</text> </ observationRange> </referenceRange> </observation> </ component> <component> <observation moodCode="EVN" classCode="OBS"> <templateId root="2.16.840.1.748122.10.20.22.4.2" /> <id nullFlavor="NA" /> <code codeSystem="local" code="2160-0" displayName= "Serum or plasma creatinine measurement (mass/volume)" /> <statusCode code="completed" /> <effectiveTime value="" /> < value unit="mg/dL" xsi:type="PQ" value="1.00" /> <referenceRange> <observationRange> <text>0.60-1.30</text> </ observationRange> </referenceRange> </observation> </ component> <component> <observation moodCode="EVN" classCode="OBS"> <templateId root="216.840.1.954238.10..22.4.2" /> <id nullFlavor="NA" /> <code codeSystem="local" code="3097-3" displayName= "Serum or plasma urea nitrogen/creatinine mass ratio" /> <statusCode code="completed" /> <effectiveTime value="" /> < value unit="" xsi:type="PQ" value="19" /> <referenceRange> < observationRange> <text>NRG</text> </observationRange> </referenceRange> </observation> </component> < component> <observation moodCode="EVN" classCode="OBS"> < templateId root="216.840.1.847438.10.20.22.4.2" /> <id nullFlavor="NA " /> <code codeSystem="local" code="67836-5" displayName="Serum or plasma creatinine measurement with calculation of estimated glomerular filtration rate" /> <statusCode code="completed" /> < effectiveTime value="" /> <value unit="" xsi:type="PQ" value="58" /> <referenceRange> <observationRange> <text>NRG</text> </observationRange> </referenceRange> </observation> </component> <component> <observation moodCode="EVN" classCode="OBS"> <templateId root= "216.840.1.695523.10.20.22.4.2" /> <id nullFlavor="NA" /> < code codeSystem="local" code="2345-7" displayName="Serum or plasma glucose measurement (mass/volume)" /> <statusCode code="completed" /> <effectiveTime value="[id number]" /> <value unit="mg/dL" xsi:type="PQ " value="174" /> <interpretationCode codeSystem="local" code="" /> <referenceRange> <observationRange> <text>70-105 </text> </observationRange> </referenceRange> </ observation> </component> <component> <observation moodCode= "EVN" classCode="OBS"> <templateId root="16.840.1.495558.10..22.4.2 " /> <id nullFlavor="NA" /> <code codeSystem="local" code= "89421-7" displayName="Serum or plasma calcium measurement (mass/volume)" /> <statusCode code="completed" /> <effectiveTime value= "[id number]" /> <value unit="mg/dL" xsi:type="PQ" value="9.3" /> <referenceRange> <observationRange> <text>8.5-10.1 </text> </observationRange> </referenceRange> </ observation> </component> <component> <observation moodCode= "EVN" classCode="OBS"> <templateId root="216.840.1.180719.10.20.22.4.2 " /> <id nullFlavor="NA" /> <code codeSystem="local" code= "1974-09" displayName="Serum or plasma total bilirubin measurement (mass/volume) " /> <statusCode code="completed" /> <effectiveTime value= "" /> <value unit="mg/dL" xsi:type="PQ" value="0.2" /> <referenceRange> <observationRange> <text>0.1-1.0< /text> </observationRange> </referenceRange> </ observation> </component> <component> <observation moodCode= "EVN" classCode="OBS"> <templateId root="2.16.840.1.249505.10.20.22.4.2 " /> <id nullFlavor="NA" /> <code codeSystem="local" code= "67" displayName="Serum or plasma alkaline phosphatase measurement ( enzymatic activity/volume)" /> <statusCode code="completed" /> <effectiveTime value="" /> <value unit="U/L" xsi:type="PQ " value="103" /> <referenceRange> <observationRange> <text>40-136</text> </observationRange> </ referenceRange> </observation> </component> <component> <observation moodCode="EVN" classCode="OBS"> <templateId root= "2.16.840.1.257825.10.20.22.4.2" /> <id nullFlavor="NA" /> < code codeSystem="local" code="1920-03" displayName="Serum or plasma aspartate aminotransferase measurement (enzymatic activity/volume)" /> < statusCode code="completed" /> <effectiveTime value="" /> <value unit="U/L" xsi:type="PQ" value="11" /> <referenceRange > <observationRange> <text>5-34</text> </ observationRange> </referenceRange> </observation> </ component> <component> <observation moodCode="EVN" classCode="OBS"> <templateId root="2.16.840.1.699194.10.20.22.4.2" /> <id nullFlavor="NA" /> <code codeSystem="local" code="1742-6" displayName= "Serum or plasma alanine aminotransferase measurement (enzymatic activity/volume )" /> <statusCode code="completed" /> <effectiveTime value= "" /> <value unit="U/L" xsi:type="PQ" value="11" /> <referenceRange> <observationRange> <text>0-55</text > </observationRange> </referenceRange> </observation > </component> <component> <observation moodCode="EVN" classCode="OBS"> <templateId root="2.16.840.1.409515.10..22.4.2" /> <id nullFlavor="NA" /> <code codeSystem="local" code="2885-2" displayName="Serum or plasma protein measurement (mass/volume)" /> < statusCode code="completed" /> <effectiveTime value="" /> <value unit="g/dL" xsi:type="PQ" value="7.1" /> < referenceRange> <observationRange> <text>6.4-8.2</text> </observationRange> </referenceRange> </observation > </component> <component> <observation moodCode="EVN" classCode="OBS"> <templateId root="2.16.840.1.410444.10..22.4.2" /> <id nullFlavor="NA" /> <code codeSystem="local" code="1751-7" displayName="Serum or plasma albumin measurement (mass/volume)" /> < statusCode code="completed" /> <effectiveTime value="" /> <value unit="g/dL" xsi:type="PQ" value="4.0" /> < referenceRange> <observationRange> <text>3.2-4.5</text> </observationRange> </referenceRange> </observation > </component> <component> <observation moodCode="EVN" classCode="OBS"> <templateId root="16.840.1.966456.10.4.2" /> <id nullFlavor="NA" /> <code codeSystem="local" code= "CALCIUMCORR" displayName="CALCIUM CORRECTED" /> <statusCode code= "completed" /> <effectiveTime value="" /> <value unit="mg/dL" xsi:type="PQ" value="9.3" /> <referenceRange> < observationRange> <text>8.5-10.1</text> </ observationRange> </referenceRange> </observation> </ component> </organizer> </entry> <entry> <organizer moodCode="EVN" classCode="BATTERY"> <templateId root="216.840.1.326555.10..22.4.1" /> <id nullFlavor="NA" /> <code codeSystem="local" code="22442-5" displayName="Blood lactic acid measurement (moles/volume)" /> <statusCode code="completed" /> <component> <observation moodCode="EVN" classCode="OBS"> <templateId root="216.840.1.342705.10..22.4.2" /> <id nullFlavor="NA" /> <code codeSystem="local" code="52162-2 " displayName="Blood lactic acid measurement (moles/volume)" /> < statusCode code="completed" /> <effectiveTime value="" /> <value unit="mmol/L" xsi:type="PQ" value="1.92" /> < referenceRange> <observationRange> <text>0.50-2.00</text > </observationRange> </referenceRange> </observation > </component> </organizer> </entry> <entry> <organizer moodCode= "EVN" classCode="BATTERY"> <templateId root="2.16.840.1.784498.10.20.22.4.1 " /> <id nullFlavor="NA" /> <code codeSystem="local" code="18091-0" displayName="Complete blood count (CBC) with automated white blood cell (WBC) differential" /> <statusCode code="completed" /> <component> < observation moodCode="EVN" classCode="OBS"> <templateId root= "2.16.840.1.998241.10.20.22.4.2" /> <id nullFlavor="NA" /> < code codeSystem="local" code="6690-2" displayName="Blood leukocytes automated count (number/volume)" /> <statusCode code="completed" /> < effectiveTime value="171314675828" /> <value unit="10*3/uL" xsi:type= "PQ" value="8.2" /> <referenceRange> <observationRange> <text>4.3-11.0</text> </observationRange> </ referenceRange> </observation> </component> <component> <observation moodCode="EVN" classCode="OBS"> <templateId root= "2.16.840.1.912557.10.20.22.4.2" /> <id nullFlavor="NA" /> < code codeSystem="local" code="789-8" displayName="Blood erythrocytes automated count (number/volume)" /> <statusCode code="completed" /> < effectiveTime value="" /> <value unit="10*6/uL" xsi:type= "PQ" value="4.27" /> <interpretationCode codeSystem="local" code="" / > <referenceRange> <observationRange> <text> 4.35-5.85</text> </observationRange> </referenceRange> </observation> </component> <component> <observation moodCode="EVN" classCode="OBS"> <templateId root= "2.16.840.1.578796.10.20.22.4.2" /> <id nullFlavor="NA" /> < code codeSystem="local" code="45268-7" displayName="Venous blood hemoglobin measurement (mass/volume)" /> <statusCode code="completed" /> <effectiveTime value="" /> <value unit="g/dL" xsi:type="PQ " value="11.7" /> <referenceRange> <observationRange> <text>11.5-16.0</text> </observationRange> </ referenceRange> </observation> </component> <component> <observation moodCode="EVN" classCode="OBS"> <templateId root= "2.16.840.1.310333.10.20.22.4.2" /> <id nullFlavor="NA" /> < code codeSystem="local" code="94677-6" displayName="Blood hematocrit (volume fraction)" /> <statusCode code="completed" /> <effectiveTime value="" /> <value unit="%" xsi:type="PQ" value="34" / > <interpretationCode codeSystem="local" code="" /> < referenceRange> <observationRange> <text>35-52</text> </observationRange> </referenceRange> </observation> </component> <component> <observation moodCode="EVN" classCode= "OBS"> <templateId root="2.16.840.1.866674.10.20.22.4.2" /> < id nullFlavor="NA" /> <code codeSystem="local" code="787-2" displayName ="Automated erythrocyte mean corpuscular volume" /> <statusCode code= "completed" /> <effectiveTime value="" /> <value unit="[foz_us]" xsi:type="PQ" value="81" /> <referenceRange> <observationRange> <text>80-99</text> </ observationRange> </referenceRange> </observation> </ component> <component> <observation moodCode="EVN" classCode="OBS"> <templateId root="2.16.840.1.796543.10..22.4.2" /> <id nullFlavor="NA" /> <code codeSystem="local" code="785-6" displayName= "Automated erythrocyte mean corpuscular hemoglobin (mass per erythrocyte)" /> <statusCode code="completed" /> <effectiveTime value= "" /> <value unit="pg" xsi:type="PQ" value="27" /> <referenceRange> <observationRange> <text>25-34</text > </observationRange> </referenceRange> </observation > </component> <component> <observation moodCode="EVN" classCode="OBS"> <templateId root="2.16.840.1.257368.10.20.22.4.2" /> <id nullFlavor="NA" /> <code codeSystem="local" code="786-4" displayName="Automated erythrocyte mean corpuscular hemoglobin concentration measurement (mass/volume)" /> <statusCode code="completed" /> <effectiveTime value="" /> <value unit="g/dL" xsi:type="PQ " value="34" /> <referenceRange> <observationRange> <text>32-36</text> </observationRange> </ referenceRange> </observation> </component> <component> <observation moodCode="EVN" classCode="OBS"> <templateId root= "2.16.840.1.585129.10.20.22.4.2" /> <id nullFlavor="NA" /> < code codeSystem="local" code="788-0" displayName="Automated erythrocyte distribution width ratio" /> <statusCode code="completed" /> < effectiveTime value="" /> <value unit="%" xsi:type="PQ " value="22.2" /> <interpretationCode codeSystem="local" code="" /> <referenceRange> <observationRange> <text>10.0- 14.5</text> </observationRange> </referenceRange> </ observation> </component> <component> <observation moodCode= "EVN" classCode="OBS"> <templateId root="216.840.1.631773.10..22.4.2 " /> <id nullFlavor="NA" /> <code codeSystem="local" code="777 -3" displayName="Automated blood platelet count (count/volume)" /> < statusCode code="completed" /> <effectiveTime value="[id number]" /> <value unit="10*3/uL" xsi:type="PQ" value="294" /> < referenceRange> <observationRange> <text>130-400</text> </observationRange> </referenceRange> </observation > </component> <component> <observation moodCode="EVN" classCode="OBS"> <templateId root="2.16.840.1.386142.10.20.22.4.2" /> <id nullFlavor="NA" /> <code codeSystem="local" code="77019-1 " displayName="Automated blood platelet mean volume measurement" /> < statusCode code="completed" /> <effectiveTime value="" /> <value unit="[[facility]]" xsi:type="PQ" value="8.9" /> < referenceRange> <observationRange> <text>7.4-10.4</text > </observationRange> </referenceRange> </observation > </component> <component> <observation moodCode="EVN" classCode="OBS"> <templateId root="2.16.840.1.679981.10.20.22.4.2" /> <id nullFlavor="NA" /> <code codeSystem="local" code="770-8" displayName="Automated blood neutrophils/100 leukocytes" /> < statusCode code="completed" /> <effectiveTime value="" /> <value unit="%" xsi:type="PQ" value="69" /> < referenceRange> <observationRange> <text>42-75</text> </observationRange> </referenceRange> </observation> </component> <component> <observation moodCode="EVN" classCode= "OBS"> <templateId root="2.16.840.1.176129.10.20.22.4.2" /> < id nullFlavor="NA" /> <code codeSystem="local" code="736-9" displayName ="Automated blood lymphocytes/100 leukocytes" /> <statusCode code= "completed" /> <effectiveTime value="" /> <value unit="%" xsi:type="PQ" value="18" /> <referenceRange> < observationRange> <text>12-44</text> </observationRange > </referenceRange> </observation> </component> < component> <observation moodCode="EVN" classCode="OBS"> < templateId root="2.16.840.1.166088.10..22.4.2" /> <id nullFlavor="NA " /> <code codeSystem="local" code="39230-8" displayName="Blood monocytes/100 leukocytes" /> <statusCode code="completed" /> < effectiveTime value="" /> <value unit="%" xsi:type="PQ " value="12" /> <referenceRange> <observationRange> <text>0-12</text> </observationRange> </referenceRange > </observation> </component> <component> <observation moodCode="EVN" classCode="OBS"> <templateId root= "2.16.840.1.618023.10..22.4.2" /> <id nullFlavor="NA" /> < code codeSystem="local" code="713-8" displayName="Automated blood eosinophils/ 100 leukocytes" /> <statusCode code="completed" /> < effectiveTime value="" /> <value unit="%" xsi:type="PQ " value="2" /> <referenceRange> <observationRange> <text>0-10</text> </observationRange> </referenceRange > </observation> </component> <component> <observation moodCode="EVN" classCode="OBS"> <templateId root= "2.16.840.1.973065.10..22.4.2" /> <id nullFlavor="NA" /> < code codeSystem="local" code="706-2" displayName="Automated blood basophils/100 leukocytes" /> <statusCode code="completed" /> <effectiveTime value="" /> <value unit="%" xsi:type="PQ" value="1" /> <referenceRange> <observationRange> <text>0-10 </text> </observationRange> </referenceRange> </ observation> </component> <component> <observation moodCode= "EVN" classCode="OBS"> <templateId root="216.840.1.828511.10.20.22.4.2 " /> <id nullFlavor="NA" /> <code codeSystem="local" code="751 -8" displayName="Blood neutrophils automated count (number/volume)" /> <statusCode code="completed" /> <effectiveTime value="973123952047" /> <value unit="10*3" xsi:type="PQ" value="5.6" /> < referenceRange> <observationRange> <text>1.8-7.8</text> </observationRange> </referenceRange> </observation > </component> <component> <observation moodCode="EVN" classCode="OBS"> <templateId root="16.840.1.057163.10...4.2" /> <id nullFlavor="NA" /> <code codeSystem="local" code="731-0" displayName="Blood lymphocytes automated count (number/volume)" /> < statusCode code="completed" /> <effectiveTime value="014775637593" /> <value unit="10*3" xsi:type="PQ" value="1.5" /> < referenceRange> <observationRange> <text>1.0-4.0</text> </observationRange> </referenceRange> </observation > </component> <component> <observation moodCode="EVN" classCode="OBS"> <templateId root="216.840.1.130593.10.20.22.4.2" /> <id nullFlavor="NA" /> <code codeSystem="local" code="742-7" displayName="Blood monocytes automated count (number/volume)" /> < statusCode code="completed" /> <effectiveTime value="" /> <value unit="10*3" xsi:type="PQ" value="1.0" /> < referenceRange> <observationRange> <text>0.0-1.0</text> </observationRange> </referenceRange> </observation > </component> <component> <observation moodCode="EVN" classCode="OBS"> <templateId root="2.16.840.1.739162.10..22.4.2" /> <id nullFlavor="NA" /> <code codeSystem="local" code="711-2" displayName="Automated eosinophil count" /> <statusCode code="completed " /> <effectiveTime value="" /> <value unit="10*3/ uL" xsi:type="PQ" value="0.1" /> <referenceRange> < observationRange> <text>0.0-0.3</text> </ observationRange> </referenceRange> </observation> </ component> <component> <observation moodCode="EVN" classCode="OBS"> <templateId root="2.16.840.1.843903.10..22.4.2" /> <id nullFlavor="NA" /> <code codeSystem="local" code="704-7" displayName= "Automated blood basophil count (count/volume)" /> <statusCode code= "completed" /> <effectiveTime value="" /> <value unit="10*3/uL" xsi:type="PQ" value="0.0" /> <referenceRange> <observationRange> <text>0.0-0.1</text> </ observationRange> </referenceRange> </observation> </ component> </organizer> </entry> <entry> <organizer moodCode="EVN" classCode="BATTERY"> <templateId root="216.840.1.937169.10..22.4.1" /> <id nullFlavor="NA" /> <code codeSystem="local" code="600-7" displayName="Bacterial blood culture" /> <statusCode code="completed" /> <component> <observation moodCode="EVN" classCode="OBS"> < templateId root="16.840.1.627689.10..4.2" /> <id nullFlavor="NA " /> <code codeSystem="local" code="600-7" displayName="Bacterial blood culture" /> <statusCode code="completed" /> < effectiveTime value="339301953013" /> <value unit="" xsi:type="PQ" value="NG" /> <referenceRange> <observationRange> <text>NRG</text> </observationRange> </referenceRange> </observation> </component> </organizer> </entry> <entry> < organizer moodCode="EVN" classCode="BATTERY"> <templateId root= "216.840.1.424612.10..4.1" /> <id nullFlavor="NA" /> <code codeSystem="local" code="600-7" displayName="Bacterial blood culture" /> < statusCode code="completed" /> <component> <observation moodCode= "EVN" classCode="OBS"> <templateId root="216.840.1.709975.10...4.2 " /> <id nullFlavor="NA" /> <code codeSystem="local" code="600 -7" displayName="Bacterial blood culture" /> <statusCode code= "completed" /> <effectiveTime value="286452703242" /> <value unit="" xsi:type="PQ" value="NG" /> <referenceRange> < observationRange> <text>NRG</text> </observationRange> </referenceRange> </observation> </component> </ organizer> </entry> <entry> <organizer moodCode="EVN" classCode="BATTERY"> <templateId root="10.03.840.1.290585.10.4.1" /> <id nullFlavor= "NA" /> <code codeSystem="local" code="ORD6" displayName="Lipid Panel" /> <statusCode code="completed" /> <component> <observation moodCode="EVN" classCode="OBS"> <templateId root= "16.840.1.667153.10..4.2" /> <id nullFlavor="NA" /> < code codeSystem="local" code="Res17" displayName="C/HDL" /> < statusCode code="completed" /> <effectiveTime value="333211006190" /> <value unit="" xsi:type="PQ" value="3.7" /> <referenceRange> <observationRange> <text>3.7-6.7</text> </ observationRange> </referenceRange> </observation> </ component> <component> <observation moodCode="EVN" classCode="OBS"> <templateId root="10.03.840.1.339066.10.22.4.2" /> <id nullFlavor="NA" /> <code codeSystem="local" code="Res54" displayName= "Cholesterol" /> <statusCode code="completed" /> < effectiveTime value="918312750859" /> <value unit="mg/dL" xsi:type="PQ " value="225" /> <referenceRange> <observationRange> <text>100-240</text> </observationRange> </ referenceRange> </observation> </component> <component> <observation moodCode="EVN" classCode="OBS"> <templateId root= "216.840.1.699303.10..4.2" /> <id nullFlavor="NA" /> < code codeSystem="local" code="Res55" displayName="HDL" /> <statusCode code="completed" /> <effectiveTime value="591910355301" /> < value unit="mg/dL" xsi:type="PQ" value="61" /> <referenceRange> <observationRange> <text>30-85</text> </ observationRange> </referenceRange> </observation> </ component> <component> <observation moodCode="EVN" classCode="OBS"> <templateId root="16.840.1.570396.06.06.22.4.2" /> <id nullFlavor="NA" /> <code codeSystem="local" code="Res15" displayName= "LDL-Calculated" /> <statusCode code="completed" /> < effectiveTime value="018200842770" /> <value unit="mg/dL" xsi:type="PQ " value="140" /> <interpretationCode codeSystem="local" code="H" /> <referenceRange> <observationRange> <text>0-100</ text> </observationRange> </referenceRange> </ observation> </component> <component> <observation moodCode= "EVN" classCode="OBS"> <templateId root="216.840.1.190735.10..4.2 " /> <id nullFlavor="NA" /> <code codeSystem="local" code= "Res25" displayName="Trig" /> <statusCode code="completed" /> <effectiveTime value="578065503807" /> <value unit="mg/dL" xsi:type="PQ " value="119" /> <referenceRange> <observationRange> <text>35-160</text> </observationRange> </ referenceRange> </observation> </component> <component> <observation moodCode="EVN" classCode="OBS"> <templateId root= "2.16.840.1.740845.10.20.22.4.2" /> <id nullFlavor="NA" /> < code codeSystem="local" code="Res16" displayName="VLDL" /> <statusCode code="completed" /> <effectiveTime value="219428871948" /> < value unit="mg/dL" xsi:type="PQ" value="24" /> <referenceRange> <observationRange> <text>0-42</text> </ observationRange> </referenceRange> </observation> </ component> </organizer> </entry></section> Encounters ACCT No. Visit Date/Time Discharge Status Pt. Type Provider Facility Loc./Unit Complaint [id number] 11/18/2016 11:00:00 11/18/2016 12:00:00 DIS Outpatient [id number] 02/20/2016 22:36:00 02/20[facility]2016 [id number] 04/22/2017 19:08:00 04/22/2017 22:06:00 DIS Emergency [facility] W.RADHA [id number] 04/13/2017 04:38:00 04/13/2017 07:45:00 DIS Emergency Bogdan HAYES, Rosalino Sands [facility] W.EDS [id number] 03/19/2017 01:00:00 03/20/2017 16:25:00 DIS Inpatient Luzma HAYES, Balbina Tang [facility] W.4CE [id number] 02/14/2017 09:49:00 02/14/2017 10:04:00 DIS Emergency [id number] 11/26/2016 04:40:00 11/26/2016 09:12:00 DIS [id number] 11/22/2016 22:01:00 11/23/2016 01:06:00 DIS Emergency Rodger HAYES, Richard H[facility] [id number] 07/11/2016 09:15:00 07/11/2016 09:15:00 DIS Outpatient Davon HAYES, Devin [facility] [id number] 05/30/2016 21:12:00 05/30/2016 23:53:00 DIS Emergency [facility] [id number] 05/27/2016 22:09:00 05/28/2016 01:19:00 DIS Emergency [id number] 04/27/2016 17:07:00 04/27/2016 19:44:00 DIS Emergency [facility] [id number] 12/18/2015 11:03:00 12/18/2015 15:40:00 DIS [facility] [id number] 10/11/2015 11:14:00 10/11/2015 15:19:00 DIS Emergency Lisas HAYES, Fidencio [facility].RADHA [id number] 08/24/2015 19:41:00 08/24/2015 21:57:00 DIS Emergency Pedro BLOOM, [place] [id number] 04/12/2015 05:57:00 04/12/2015 06:58:00 DIS Emergency Maverick HAYES, El[facility] [id number] 03/09/2015 18:41:00 03/09/2015 20:37:00 DIS [id number] 02/22/2015 12:15:00 02/24/2015 20:45:00 DIS Inpatient Caitie HAYES, [facility] [id number] 01/30/2016 08:56:00 Document Registration [id number] 09/18/2016 07:52:00 09/18/2016 10:50:00 DIS Outpatient Kimberlee Gayathri [facility] DS Gastro egdp [id number] 09/09/2016 12:57:00 09/09/2016 23:59:00 DIS Outpatient Kimberlee Gayathri [facility] Mur Gasto Chronic GERD Former Prateek pt. [id number] 10/18/2015 08:54:00 10/18/2015 10:55:00 DIS Outpatient Fidencio Chandra [facility] DS Gastro COMBOP [id number] 10/04/2015 13:44:00 10/04/2015 23:59:00 DIS Outpatient Fidencio Chandra [facility] Mur Gasto NPV HERNIA COLON SCREEN [id number] 11/19/2017 06:19:00 Document Registration [id number] 04/04/2017 15:05:24 ACT Document Registration [id number] 06/17/2017 11:14:00 06/17/2017 23[facility]59[facility] [id number] 04/28/2018 10:49:00 04/28/2018 23:59:00 DIS Outpatient Elvi Walker [id number] 01/13/2018 17:00:00 01/13/2018 23:59:00 DIS Outpatient RENY COLLAZO [id number] 11/18/2017 12:26:00 11/18/2017 23:59:00 DIS Outpatient RENY COLLAZO [id number] 10/15/2017 15:00:00 10/15/2017 23:59:00 DIS Outpatient RENY COLLAZO [id number] 10/15/2017 13:32:00 10/15/2017 23:59:00 DIS Outpatient RENY COLLAZO [id number] 04/04/2016 15:19:49 04/04/2016 23:59:59 CLS Outpatient Max Brooke [id number] 05/25/2017 11:12:00 05/25/2017 16:47:00 DIS Emergency Martinez Terri Via [facility] on [facility] ED eder sart [id number] 12/05/2016 11:18:00 12/05/2016 23:59:00 DIS Outpatient Serena Morfin Via [facility] on [facility] Pulm [facility] J45.40- Asthma [id number] 10/17/2016 10:28:00 10/17/2016 23:59:00 DIS Outpatient Mays Ronald Via [facility] on [facility] Mammo Screening [id number] 07/04/2015 15:21:00 07/04/2015 23:59:00 DIS Outpatient April Rolle MD Via [facility] on [facility] Diag Rad Chronic Back Pain [id number] 06/29/2015 09:51:00 06/29/2015 12:17:00 DIS Emergency Alton Vasquez DO Via [facility] on [facility] ED n/v [id number] 09/10/2016 05:15:48 Document Registration [id number] 06/30/2015 05:16:36 Document Registration [id number] 03/30/2016 13:00:00 03/30/2016 23:59:59 CLS [facility] ED [id number] 05/28/2017 13:34:03 05/28/2017 15:05: 09 DIS Outpatient SERENA MORFIN N.P. [id number] 02/27/2017 14:36:37 02/27/2017 15:11: 50 DIS Outpatient JAYA WHITTAKER [id number] 12/12/2016 13:42:04 12/12/2016 14:34: 38 DIS Outpatient SERENA MORFIN N.P.[id number] 11/14/2016 13:50:37 11/14/2016 14:01: 08 DIS Outpatient SERENA MORFIN N.P.[id number] 10/09/2016 08:09:59 10/09/2016 09:52: 28 DIS Outpatient SERENA MORFIN N.P.[id number] 09/19/2016 09:01:43 09/19/2016 10:16: 48 DIS Outpatient SERENA MORFIN N.P. [id number] 07/04/2016 10:25:30 07/04/2016 11:15: 08 DIS Outpatient SERENA MORFIN N.P. [id number] 05/20/2016 15:11:54 05/20/2016 16:24: 35 DIS Outpatient SERENA MORFIN N.P. [id number] 06/17/2017 11:49:00 Document Registration [id number] 06/26/2017 10:15:00 06/26/2017 23:59:59 [id number] 06/23/2017 11:28:00 06/23/2017 23:59:59 [facility] [id number] 06/16/2017 10:24:00 06/16/2017 23:59:59 [facility] [id number] 07/23/2017 11:21:00 Document Registration [id number] 06/19/2017 15:15:00 Document Registration [id number] 06/17/2017 11:17:00 06/17/2017 23:59:59 CLS Emergency YASH HAYES, YESSENIA Sands [facility] ED [id number] 03/30/2016 15:03:00 03/31/2016 13:21:00 DIS Inpatient BRISSA SO DO [facility] 3SE [id number] 02/20/2016 22:39:00 02/21/2016 01:40:00 DIS Emergency DIXON ROTHMAN MD [facility] ED [id number] 06/08/2018 00:09:00 06/08/2018 23:59:59 CLS Preadmit SILVIA MAURICE MD [facility] ONC [id number] 04/21/2018 09:31:00 06/07/2018 00:01:00 DIS Outpatient SILVIA MAURICE MD [facility] ONC [id number] 04/20/2018 14:27:00 04/20/2018 16:26:00 DIS Emergency KELLY BERRY [facility] ER SPIDER BITE GOT WORSE [id number] 04/19/2018 14:17:00 04/19/2018 15:55:00 DIS Emergency KELLY BERRY [facility] ER BITE ON LT LEG [id number] 11/27/2017 13:39:00 02/25/2018 00:01:00 DIS Outpatient KAYLENE HAYES, SILVIA [facility] ONC [id number] 02/19/2018 09:12:00 02/19/2018 13:22:00 DIS Outpatient RENY COLLAZO MD [facility] REHAB CERVICAL DDD AND NECK PAIN [id number] 02/11/2018 14:42:00 02/11/2018 23:59:59 CLS Outpatient RENY COLLAZO MD [facility] RAD LEFT PNEUMONIA [id number] 01/04/2018 13:45:00 2018 15:00:00 DIS Inpatient TOYIN HAYES, LILY Sands [facility] 4TH SEVERE SEPSIS [id number] 11/24/2017 08:32:00 11/24/2017 23:59:59 CLS Outpatient RENY COLLAZO MD [facility] RAD SCREENING CERVILAGIA [id number] 07/08/2018 13:47:00 ACT Emergency KELLY BERRY [facility] ER LFT. ARM ABCESS [id number] 12/12/2016 15:44:01 12/12/2016 23:59:59 CLS Outpatient
[2018-07-08] MEDS ORDERED: cefTRIAXone 1 GM/10 ML for IV (ROCEPHIN) IM ONE (15:15)
[2018-07-08] MEDS: cefTRIAXone 1,000 MG/2.86 ml vial (IM ONLY) IM SCH (15:17)
[2018-07-08] MEDS: LIDOCAINE 1% INJ 20 ML 20 ML VIAL INJ ONE (15:17)
[2018-07-08] MEDS: cefTRIAXone 1 GM/10 ML for IV (ROCEPHIN) ONE (15:17)
[2018-07-08 16:13] VITALS: BP 104/48
== END 2018-07-08 16:13 | disposition home or self-care (01) ==
LOC: EDUNIT# 13:45 → ER 13:47
DX: L02.414 Cutaneous abscess of left upper limb (principal); J44.9 Chronic obstructive pulmonary disease, unspecified; I10 Essential (primary) hypertension; E11.9 Type 2 diabetes mellitus without complications; Z87.19 Personal history of other diseases of the digestive system; Z79.51 Long term (current) use of inhaled steroids; Z79.84 Long term (current) use of oral hypoglycemic drugs; Z90.710 Acquired absence of both cervix and uterus
CPT/HCPCS: 87070; 87077; 87186; 87205

== ENCOUNTER → 2018-11-03 | Outpatient (CLI) | payer MEDICAID ==
--- NOTE | 2018-11-03 13:32 | Diagnostic Imaging Report ---
INDICATION: Cough. Rhinorrhea. COMPARISON: 02/11/2018. FINDINGS: Single frontal radiographic view of the chest was obtained and demonstrates mild cardiomegaly. Pulmonary vasculature, however, is within normal limits. Hiatal hernia is noted. Evaluation of the lung mcarthur suggests 9 mm nodule projecting over the lateral right base. Otherwise, lungs are clear. There is no large effusion or pneumothorax. Bony structures show no gross acute abnormalities. IMPRESSION: 1. Cardiomegaly, but no evidence of failure or focal infiltrate. 2. Hiatal hernia. 3. Findings suspicious for micronodule in the lateral right base. Followup with dedicated CT chest is recommended. Dictated by: Dictated on workstation # [id number]
== END ==
LOC: RAD 13:02
PROVIDERS: ATTEND Family Medicine
DX: J34.89 Other specified disorders of nose and nasal sinuses (principal); I51.7 Cardiomegaly; K44.9 Diaphragmatic hernia without obstruction or gangrene; R06.02 Shortness of breath
CPT/HCPCS: 71046

== ENCOUNTER → 2018-11-17 | Outpatient (CLI) | payer MEDICAID ==
[2018-11-17 09:57] LABS: BUN/CREATININE RATIO 15; CALCIUM 9.1 MG/DL (8.5-10.1); CARBON DIOXIDE 22 MMOL/L (21-32); CHLORIDE 97 MMOL/L (98-107); CREATININE SERUM 0.87 MG/DL (0.60-1.30); GFR ESTIMATED > 60; GLUCOSE 134 MG/DL (70-105); POTASSIUM 3.9 MMOL/L (3.6-5.0); SODIUM 131 MMOL/L (135-145)
--- NOTE | 2018-11-17 14:48 | Diagnostic Imaging Report ---
PROCEDURE: CT chest with contrast only. TECHNIQUE: Multiple contiguous axial images were obtained through the chest after administration of intravenous contrast. Auto Exposure Controls were utilized during the CT exam to meet ALARA standards for radiation dose reduction. INDICATION: History of uterine carcinoma. Concern for nodule right lung base at chest radiograph. COMPARISON: Chest radiograph 11/03/2018. FINDINGS: Visualized portions of the thyroid gland are unremarkable. There is no pathologically enlarged mediastinal, hilar and/or axillary lymph nodes. Moderate sized esophageal hernia is present. The heart size is unremarkable. Thoracic aorta normal in contour. Lung parenchyma limited in evaluation given motion artifact. Likely minimal areas of atelectasis and/or scarring left lung base. Slight asymmetric parenchymal density superior segment right lower lobe with minimal groundglass opacity present. This could be reflective of small area of pneumonitis. There is slight wispy-like density with perhaps thickening along the fissure plane of the lateral right lung base. This could potentially account for the chest radiograph findings. No significant pleural effusion. Likely some degree of hepatic steatosis. Gallbladder is absent. The visualized osseous structures demonstrate no acute findings. IMPRESSION: 1. Examination compromised owing to patient motion artifact. This is most noticeable at the lung bases. 2. A definitive pulmonary mass is not suggested. However, there is what appears to be slight pleural thickening at the anterior right lung base. This may account for the recent chest radiograph findings. 3. There does appear to be small wispy like infiltrate about the superior segment right lower lobe. Features may reflect small area of pneumonitis. 4. Given these overall findings, it is recommended that repeat imaging be obtained in approximately 2-3 months for reassessment. Dictated by: Dictated on workstation # [id number]
== END ==
LOC: RAD 09:07
PROVIDERS: ATTEND Family Medicine
DX: K44.9 Diaphragmatic hernia without obstruction or gangrene (principal); Z85.42 Personal history of malignant neoplasm of other parts of uterus; Z90.49 Acquired absence of other specified parts of digestive tract
CPT/HCPCS: 36415; 71260; 80048

== ENCOUNTER 2019-01-26 17:24 | Emergency (ER) | payer MEDICAID, OTHER ==
[~2019-01-26] VITALS: Ht 149.9 cm; Wt 65.8 kg
--- NOTE | 2019-01-26 17:35 | NUR ---
ambulated to rm 10. states she has been vomiting for 2 days without relief with nausea meds lasted taken this morning
[2019-01-26] MEDS ORDERED: NS IV 1000 ML 1,000 ML IV SCH (17:37)
[2019-01-26 17:51] LABS: BASOPHILS # (AUTO) 0.1 10^3/uL (0.0-0.1); BASOPHILS % (AUTO) 0 % (0-10); EOSINOPHILS % (AUTO) 0 % (0-10); HEMATOCRIT 30 % (35-52); HEMOGLOBIN 9.6 G/DL (11.5-16.0); LYMPHOCYTES # (AUTO) 1.2 X 10^3 (1.0-4.0); LYMPHOCYTES % (AUTO) 9 % (12-44); MEAN CORPUSCULAR HEMOGLOBIN 27 PG (25-34); MEAN CORPUSCULAR HGB CONC 32 G/DL (32-36); MEAN CORPUSCULAR VOLUME 84 FL (80-99); MEAN PLATELET VOLUME 8.5 FL (7.4-10.4); MONOCYTES # (AUTO) 1.1 X 10^3 (0.0-1.0); MONOCYTES % (AUTO) 8 % (0-12); NEUTROPHILS # (AUTO) 11.3 X 10^3 (1.8-7.8); NEUTROPHILS % (AUTO) 83 % (42-75); PLATELET COUNT 661 10^3/uL (130-400); RED CELL DISTRIBUTION WIDTH 14.1 % (10.0-14.5); WHITE BLOOD COUNT 13.7 10^3/uL (4.3-11.0)
[2019-01-26 17:55] LABS: BILIRUBIN,URINE NEGATIVE (NEGATIVE); COLOR,URINE YELLOW; GLUCOSE, URINE (UA) NEGATIVE (NEGATIVE); KETONES,URINE 1+ (NEGATIVE); LEUKOCYTE ESTERASE ,URINE 1+ (NEGATIVE); NITRITE,URINE NEGATIVE (NEGATIVE); PH,URINE 6 (5-9); PROTEIN,URINE NEGATIVE (NEGATIVE); UROBILINOGEN,URINE NORMAL (NORMAL)
[2019-01-26] MEDS ORDERED: ONDANSETRON 4 MG/2 ML (SDV) Z0FRAN IVP ONE (18:00)
[2019-01-26 18:07] LABS: CLARITY,URINE CLEAR
[2019-01-26 18:08] LABS: BACTERIA,URINE TRACE /HPF
[2019-01-26 18:10] LABS: ALANINE AMINOTRANSFERASE 14 U/L (0-55); ALBUMIN 4.3 GM/DL (3.2-4.5); ALKALINE PHOSPHATASE 90 U/L (40-136); AMYLASE 47 U/L (25-125); BILIRUBIN,TOTAL 0.3 MG/DL (0.1-1.0); BUN/CREATININE RATIO 23; CALCIUM 10.3 MG/DL (8.5-10.1); CARBON DIOXIDE 23 MMOL/L (21-32); CHLORIDE 98 MMOL/L (98-107); CREATININE SERUM 0.94 MG/DL (0.60-1.30); GFR ESTIMATED > 60; GLUCOSE 156 MG/DL (70-105); LIPASE 8 U/L (8-78); POTASSIUM 4.5 MMOL/L (3.6-5.0); SODIUM 132 MMOL/L (135-145); TOTAL PROTEIN 7.9 GM/DL (6.4-8.2)
[2019-01-26] MEDS ORDERED: ONDA4TAB11 PO (19:02)
--- NOTE | 2019-01-26 19:02 | ED GI ---
General Chief Complaint: Abdominal/GI Problems Stated Complaint: VOMITING Nursing Triage Note: pt amb to triage with complaint of n/v since yesterday. states it is a brown liquid, states has nausea med at home, but is not helping. Sepsis Screen: No Definite Risk History of Present Illness Date Seen by Provider: Jan 26, 2019 Time Seen by Provider: 17:30 Initial Comments 54-year-old female presents for nausea and vomiting 24 hours. She has tried [id number]-[id number] medication with no improvement in her symptoms. She denies any fever. She's had a cholecystectomy in the past. Timing/Duration: 12-24 Hours Severity/Quality: Mild Location: Generalized Abdomen Radiation: No Radiation Associated Symptoms: Nausea/Vomiting Allergies and Home Medications Allergies Coded Allergies: No Known Drug Allergies (Unverified , 01/04/18) Home Medications Albuterol Sulfate 1 Puff Puff, 2 PUFF INH Q4H PRN for SHORTNESS OF BREATH, (Reported) Baclofen 10 Mg Tablet, 10 MG PO TID, (Reported) Budesonide/Formoterol Fumarate 10.2 Gm Hfa.aer.ad, 2 PUFF INH BID, (Reported) Cefdinir 300 Mg Capsule, 1 CAP PO twice a day Prescribed by: NARCISO GONZALES on 01/06/18 1346 Dexlansoprazole 60 Mg Cap.dr.bp, 60 MG PO DAILY, (Reported) Diclofenac Sodium 75 Mg Tablet.dr, 75 MG PO BID, (Reported) Lisinopril 10 Mg Tablet, 10 MG PO DAILY, (Reported) Lurasidone HCl 20 Mg Tablet, 20 MG PO HS, (Reported) Meloxicam 15 Mg Tablet, 15 MG PO HS, (Reported) Metformin HCl 500 Mg Tablet, 500 MG PO BID, (Reported) Metoprolol Tartrate 25 Mg Tablet, 12.5 MG PO BID, (Reported) TAKES 1/2 (25MG) TABLETS Montelukast Sodium 10 Mg Tablet, 10 MG PO DAILY, (Reported) [place] 3 Polyunsat Fatty Acids 1,000 Mg Cap, 1,000 MG PO DAILY, (Reported) Ondansetron 8 Mg Tab.rapdis, 8 MG PO TID PRN for NAUSEA/VOMITING-1ST LINE, (Reported) Ondansetron 4 Mg Tab.rapdis, 4 MG PO Q6H PRN for NAUSEA/VOMITING Prescribed by: GABO LONG on 01/26/19 1902 Prazosin HCl 1 Mg Capsule, 2 MG PO HS, (Reported) TAKES 2 (1MG) CAPSULES Ranitidine HCl 300 Mg Tablet, 300 MG PO HS, (Reported) Sertraline HCl 100 Mg Tablet, 200 MG PO HS, (Reported) TAKES 2 (100MG) TABLETS Simvastatin 20 Mg Tablet, 20 MG PO HS, (Reported) Sulfamethoxazole/Trimethoprim 1 Each Tablet, 1 EACH PO BID Prescribed by: KELLY BERRY on 04/19/18 1527 Sulfamethoxazole/Trimethoprim 1 Each Tablet, 1 EACH PO BID Prescribed by: KELLY BERRY on 07/08/18 1458 Patient Home Medication List Home Medication List Reviewed: Yes Review of Systems Review of Systems Constitutional: no symptoms reported, see HPI Gastrointestinal: See HPI, Abdominal Pain; Denies Diarrhea; Nausea, Vomiting All Other Systems Reviewed Negative Unless Noted: Yes Past Ekqawzl-Djhzrt-Imxajj Hx Past Med/Social Hx: Reviewed Nursing Past Med/Soc Hx Patient Social History Alcohol Use: Denies Use Recreational Drug Use: No Smoking Status: Never a Smoker 2nd Hand Smoke Exposure: Yes Recent Foreign Travel: No Contact w/Someone Who Travel: No Recent Infectious Disease Expo: No Recent Hopitalizations: No Physical Abuse: No Sexual Abuse: No Mistreated: No Fear: No Immunizations Up To Date Tetanus Booster (TDap): Unknown Seasonal Allergies Seasonal Allergies: No Past Medical History Surgeries: Yes Gallbladder, Hysterectomy, Orthopedic Respiratory: Yes COPD Cardiac: Yes Hypertension Neurological: No Genitourinary: No Gastrointestinal: Yes Hiatal Hernia Musculoskeletal: Yes Scoliosis, Chronic Back Pain Endocrine: Yes Diabetes, Non-Insulin dep HEENT: No Cancer: No Integumentary: No Family Medical History Unable to obtain due to AMS Physical Exam Vital Signs Vital Signs - First Documented 01/26/19 17:26 Temp 98.6 Pulse 104 Resp 20 B/P (MAP) 143/76 (98) Pulse Ox 94 O2 Delivery Room Air Capillary Refill : Less Than 3 Seconds Height/Weight/BMI Height: 4'11.00" Weight: 145lbs. 2.0oz. 65.395490iu; 29.9 BMI Method:Stated General Appearance: WD/WN, no apparent distress HEENT: PERRL/EOMI, normal ENT inspection, TMs normal, pharynx normal Neck: non-tender, full range of motion, supple, normal inspection Respiratory: chest non-tender, lungs clear, normal breath sounds Cardiovascular: normal peripheral pulses, regular rate, rhythm, no edema, no murmur Gastrointestinal: normal bowel sounds, non tender, soft; No distended, No guarding, No rebound, No tenderness, No mass Neurologic/Psychiatric: no motor/sensory deficits, alert, normal mood/affect, oriented x 3 Skin: normal color, warm/dry Lymphatic: no adenopathy Progress/Results/Core Measures Results/Orders Lab Results Laboratory Tests Test 01/26/19 17:38 Range/Units White Blood Count 13.7 H 4.3-11.0 10^3/uL Red Blood Count 3.52 L 4.35-5.85 10^6/uL Hemoglobin 9.6 L 11.5-16.0 G/DL Hematocrit 30 L 35-52 % Mean Corpuscular Volume 84 80-99 FL Mean Corpuscular Hemoglobin 27 25-34 PG Mean Corpuscular Hemoglobin Concent 32 32-36 G/DL Red Cell Distribution Width 14.1 10.0-14.5 % Platelet Count 661 H 130-400 10^3/uL Mean Platelet Volume 8.5 7.4-10.4 FL Neutrophils (%) (Auto) 83 H 42-75 % Lymphocytes (%) (Auto) 9 L 12-44 % Monocytes (%) (Auto) 8 0-12 % Eosinophils (%) (Auto) 0 0-10 % Basophils (%) (Auto) 0 0-10 % Neutrophils # (Auto) 11.3 H 1.8-7.8 X 10^3 Lymphocytes # (Auto) 1.2 1.0-4.0 X 10^3 Monocytes # (Auto) 1.1 H 0.0-1.0 X 10^3 Eosinophils # (Auto) 0.0 0.0-0.3 10^3/uL Basophils # (Auto) 0.1 0.0-0.1 10^3/uL Urine Color YELLOW Urine Clarity CLEAR Urine pH 6 5-9 Urine Specific [place] 1.020 1.016-1.022 Urine Protein NEGATIVE NEGATIVE Urine Glucose (UA) NEGATIVE NEGATIVE Urine Ketones 1+ H NEGATIVE Urine Nitrite NEGATIVE NEGATIVE Urine Bilirubin NEGATIVE NEGATIVE Urine Urobilinogen NORMAL NORMAL MG/DL Urine Leukocyte Esterase 1+ H NEGATIVE Urine RBC (Auto) NEGATIVE NEGATIVE Urine RBC NONE /HPF Urine WBC NONE /HPF Urine Crystals NONE /LPF Urine Bacteria TRACE /HPF Urine Casts NONE /LPF Urine Mucus NEGATIVE /LPF Urine Culture Indicated NO Sodium Level 132 L 135-145 MMOL/L Potassium Level 4.5 3.6-5.0 MMOL/L Chloride Level 98 98-107 MMOL/L Carbon Dioxide Level 23 21-32 MMOL/L Anion Gap 11 5-14 MMOL/L Blood Urea Nitrogen 22 H 7-18 MG/DL Creatinine 0.94 0.60-1.30 MG/DL Estimat Glomerular Filtration Rate > 60 BUN/Creatinine Ratio 23 Glucose Level 156 H 70-105 MG/DL Calcium Level 10.3 H 8.5-10.1 MG/DL Corrected Calcium 10.1 8.5-10.1 MG/DL Total Bilirubin 0.3 0.1-1.0 MG/DL Aspartate Amino Transf (AST/SGOT) 11 5-34 U/L Alanine Aminotransferase (ALT/SGPT) 14 0-55 U/L Alkaline Phosphatase 90 40-136 U/L Total Protein 7.9 6.4-8.2 GM/DL Albumin 4.3 3.2-4.5 GM/DL Amylase Level 47 25-125 U/L Lipase 8 8-78 U/L My Orders Orders - GABO LONG Amylase (01/26/19 17:37) Cbc With Automated Diff (01/26/19 17:37) Comprehensive Metabolic Panel (01/26/19 17:37) Lipase (01/26/19 17:37) Ua Culture If Indicated (01/26/19 17:37) Ed Iv/Invasive Line Start (01/26/19 17:37) Ns Iv 1000 Ml (Sodium Chloride 0.9%) (01/26/19 17:37) Ondansetron Injection (Zofran Injectio (01/26/19 18:00) Medications Given in ED Current Medications Medications Dose Ordered Sig/Katrina Route Start Time Stop Time Status Last Admin Dose Admin Ondansetron HCl 4 mg ONCE ONCE IVP 01/26/19 18:00 01/26/19 18:01 DC 01/26/19 17:56 4 MG Vital Signs/I&O 01/26/19 01/26/19 17:26 19:17 Temp 98.6 Pulse 104 83 Resp 20 16 B/P (MAP) 143/76 (98) 149/71 (97) Pulse Ox 94 99 O2 Delivery Room Air Blood Pressure Mean: 98 Progress Progress Note : Time: 17:30 Progress Note Patient seen and evaluated, will start normal saline 1 L per IV, labs, Zofran 4 mg IV for nausea and vomiting. 181 labs essentially normal, patient reports improvement in her symptoms, will give ice chips and see if she tolerates. 1845 patient has had no further nausea or vomiting since admission. Tolerating ice chips with no complaints. 1900 discharge instructions and return precautions reviewed with the patient and her . All questions answered. Will maintain a clear liquid diet for the next 4-6 hours. Departure Impression Primary Impression: Nausea & vomiting Qualified Codes: R11.14 - Bilious vomiting Disposition: HOME, SELF-CARE Condition: Improved Departure-Patient Inst. Decision time for Depature: 19:00 Referrals: RENY RODRIGUEZ MD (PCP/Family) Primary Care Physician Patient Instructions: Nausea and Vomiting, Adult (DC) Add. Discharge Instructions: Clear liquid diet for the next 4-6 hours, then bland diet. Use Zofran every 6 hours for Nausea and Vomiting. Follow up with Dr. Rodriguez if symptoms are not improving or worsen. Return to emergency department if symptoms worsen, or new, urgent health care needs. All discharge instructions reviewed with patient and/or family. Voiced underst anding. Scripts Ondansetron (Ondansetron Odt) 4 Mg Tab.rapdis 4 MG PO Q6H PRN for NAUSEA/VOMITING, #8 TAB 0 Refills Prov: GABO LONG 01/26/19 Copy Copies To 1: RENY RODRIGUEZ MD, AMY ARNP Jan 26, 2019 19:02
[2019-01-26 19:17] VITALS: BP 149/71
== END 2019-01-26 19:17 | disposition home or self-care (01) ==
LOC: EDUNIT# 17:24 → ER 17:26
DX: R11.2 Nausea with vomiting, unspecified (principal); J44.9 Chronic obstructive pulmonary disease, unspecified; I10 Essential (primary) hypertension; M41.9 Scoliosis, unspecified; E11.9 Type 2 diabetes mellitus without complications; Z87.19 Personal history of other diseases of the digestive system; Z79.84 Long term (current) use of oral hypoglycemic drugs; Z77.22 Contact with and (suspected) exposure to environmental tobacco smoke (acute) (chronic); Z90.710 Acquired absence of both cervix and uterus; Z98.890 Other specified postprocedural states
CPT/HCPCS: 36415; 80053; 81000; 82150; 83690; 85025; 96361; 96374

== ENCOUNTER 2019-02-03 08:23 | Outpatient (RCR) | payer OTHER ==
[~2019-02-03 08:23] MED LIST changes: +ONDA4TAB11 PO
== END 2019-02-03 10:01 | disposition home or self-care (01) ==
PROVIDERS: ATTEND Surgery
DX: Z02.71 Encounter for disability determination (principal)

== ENCOUNTER → 2019-02-19 | Outpatient (CLI) | payer MEDICAID, OTHER ==
--- NOTE | 2019-02-20 07:55 | Diagnostic Imaging Report ---
Digital mammogram. Bilateral screening with 3-D tomosynthesis with CAD. The study was compared to the prior exam of 11/24/2017. At this time there are no current complaints. The current study was also evaluated with a Computer Aided Detection (CAD) system. FINDINGS: There are scattered fibroglandular densities in both breasts which could obscure a lesion. Overall, there does not appear to have been any significant change when compared to the prior exam. No primary or secondary sign of malignancy is noted. IMPRESSION: There is no radiographic evidence for malignancy. ACR BI-RADS Category 1: Negative. Result letter will be mailed to the patient. Note: At least 10% of breast cancer is not imaged by mammography. Dictated by: Dictated on workstation # [id number]
== END ==
LOC: RAD 09:08
PROVIDERS: ATTEND Nurse Practitioner Family
DX: Z12.31 Encounter for screening mammogram for malignant neoplasm of breast (principal)
CPT/HCPCS: 77067

== ENCOUNTER → 2019-03-29 | Outpatient (CLI) | payer MEDICAID ==
[2019-03-29 13:02] LABS: CREATININE SERUM 0.96 MG/DL (0.60-1.30)
--- NOTE | 2019-03-29 14:14 | Diagnostic Imaging Report ---
PROCEDURE: CT chest with contrast only. TECHNIQUE: Multiple contiguous axial images were obtained through the chest after administration of intravenous contrast. Auto Exposure Controls were utilized during the CT exam to meet ALARA standards for radiation dose reduction. INDICATION: Headache and dizziness, history of uterine carcinoma. Study is performed for followup. COMPARISON: Correlation is made with CT chest study from 11/17/2018. FINDINGS: No axillary lymphadenopathy is detected. No definite mediastinal or hilar lymphadenopathy is identified. There is a large hiatal hernia present. No pericardial or pleural fluid is detected. Previously noted infiltrate in the superior segment of the right lower lobe has resolved. There is some minimal linear scarring or atelectasis in the right middle lobe laterally as well as the lateral portion of the lingula. Otherwise, the lungs are clear. Central airways are patent. Upper abdomen is unremarkable. IMPRESSION: 1. Resolution of previously noted infiltrate in the superior segment of the right lower lobe since CT from 11/17/2018. No new abnormality is detected. 2. Large hiatal hernia. Dictated by: Dictated on workstation # [id number]
== END ==
LOC: RAD 12:20
PROVIDERS: ATTEND Family Medicine
DX: K44.9 Diaphragmatic hernia without obstruction or gangrene (principal); R42 Dizziness and giddiness; Z98.890 Other specified postprocedural states; Z85.42 Personal history of malignant neoplasm of other parts of uterus
CPT/HCPCS: 36415; 71260; 82565; 84520

== ENCOUNTER → 2019-03-31 | Outpatient (CLI) | payer MEDICAID ==
[2019-03-31 09:39] LABS: CREATININE SERUM 1.18 MG/DL (0.60-1.30)
== END ==
LOC: LAB 09:02
PROVIDERS: ATTEND Family Medicine
DX: Z01.89 Encounter for other specified special examinations (principal); Z98.890 Other specified postprocedural states
CPT/HCPCS: 36415; 82565; 84520